=== PATIENT | female | born 1935 | race Caucasian/White ===

== ENCOUNTER → 2017-01-11 | Outpatient (CLI) | payer OTHER, MEDICARE ==
[~2017-01-11] MED LIST: ACET-749 PO; ATEN100T PO; AZIT250T PO; CARB6.5D11 OT; DILT-115 PO; DILT120C99 PO; DOXY100C76 PO; FURO-85 PO; IPRASOL34 INH; IPRASOL4 INH; LEVO125T5 PO; LSN40 PO; LSX20 PO; MAGN400T6 PO; METO-479 PO; NTRGSL/4 UT; PANT1TAB48 PO; POTA10CA28 PO; PRED20TA2 PO; SITA50TA PO; SNG10 PO; SYMIN160 INH; TRIA1SPR4 NAE; TRMCR515 TOP; WARF5TAB90 PO; ZCR80 PO
--- NOTE | 2017-01-11 11:25 | DIAGNOSTIC IMAGING REPORT ---
CHEST 2 VIEWS ROUTINE HISTORY: Short of breath. COMPARISON: Chest 12/25/2014. FINDINGS: No pleural effusions. No pneumothorax. The heart remains mildly enlarged. Diffuse interstitial thickening is again noted and is likely due to mild congestive change. No new focal lung consolidations. Right peritracheal soft tissue thickening is due to the normal vascular structures. IMPRESSION: Mild congestive change with cardiomegaly. Electronically signed by: Carson Munoz M.D. 01/11/2017 11:23 AM Dictated Date/Time: 01/11/2017 11:22 AM
== END | disposition home or self-care (01) ==
LOC: C.RADBBURG 00:21
PROVIDERS: ATTEND Physician Assistant
DX: R06.02 Shortness of breath (principal)

== ENCOUNTER → 2017-01-20 | Outpatient (CLI) | payer OTHER, MEDICARE ==
[~2017-01-20] MED LIST changes: +OPTIRAY 320 IV PRN
[2017-01-20 13:02] LABS: BLOOD UREA NITROGEN 30 mg/dl (7-18); BUN/CREATININE RATIO 23.1 (10-20); CARBON DIOXIDE 33 mmol/L (21-32); CHLORIDE 104 mmol/L (98-107); GLUCOSE 130 mg/dl (70-99); POTASSIUM 4.5 mmol/L (3.5-5.1); SODIUM 142 mmol/L (136-145)
--- NOTE | 2017-01-20 13:36 | DIAGNOSTIC IMAGING REPORT ---
CHEST CT WITH CONTRAST CT DOSE: 699.41 mGycm HISTORY: Dyspnea J96.10 Chronic respiratory [id number] COPD, [id number] TECHNIQUE: Multiaxial CT images of the chest were performed following the intravenous administration of contrast. COMPARISON: 08/19/2015 FINDINGS: Moderate stable cardiomegaly. Calcification coronary arterial vasculature. Moderate atelectatic change thoracic aorta with no evidence for aneurysm or dissection. Slight bibasilar interstitial prominence unaltered from the prior study. No new interval or progressive process. IMPRESSION: 1. Moderate grade megaly stable the prior study. 2. Slight bibasilar interstitial prominence unaltered from the prior exam. 3. Lungs otherwise are clear with no significant focal infiltrative process. Electronically signed by: Jian Bergeron M.D. 01/20/2017 1:33 PM Dictated Date/Time: 01/20/2017 1:30 PM
--- NOTE | 2017-01-26 07:03 | PULMONARY FUNCTION TEST ---
INTERPRETATION: Spirometry suggests mild restrictive ventilatory disease. Lung volumes: Within normal limits. Diffusion capacity: Significantly decreased diffusion capacity but when corrected for alveolar volume, within normal limits. Suggests restrictive ventilatory dysfunction.
== END | disposition home or self-care (01) ==
LOC: C.CTS 12:04
PROVIDERS: ATTEND Physician Assistant
DX: J44.9 Chronic obstructive pulmonary disease, unspecified (principal); J96.10 Chronic respiratory failure, unspecified whether with hypoxia or hypercapnia

== ENCOUNTER 2017-06-02 21:43 | Emergency (ER) | payer OTHER, MEDICARE ==
[~2017-06-02] VITALS: Ht 149.9 cm; Wt 100.0 kg
[~2017-06-02 21:43] MED LIST changes: -ACET-749 PO; -DILT-115 PO; -DILT120C99 PO; -IPRASOL4 INH; +LEVO125T4 PO; -LEVO125T5 PO; -LSX20 PO; -METO-479 PO; -OPTIRAY 320 IV PRN; -POTA10CA28 PO; -TRIA1SPR4 NAE; -TRMCR515 TOP
[2017-06-02 21:46] VITALS: TEMP 36.6; Ht 149.9 cm; Wt 100.0 kg
--- NOTE | 2017-06-02 23:04 | DIAGNOSTIC IMAGING REPORT ---
LEFT ANKLE MIN 3 VIEWS ROUTINE CLINICAL HISTORY: 82 years-old Female presenting with Left ankle pain s/p injury. TECHNIQUE: Frontal, mortise, and lateral views of the left ankle were obtained. COMPARISON: None. FINDINGS: Ankle mortise intact. Irregularity of the medial malleolus could suggest an old fracture. Degenerative changes at the ankle mortise both medially, posteriorly and laterally. Prominent bone spur at the inferior calcaneus. Os peroneum suggested. No convincing evidence of an acute fracture or malalignment. Diffuse soft tissue swelling. IMPRESSION: No convincing evidence of acute osseous injury. Degenerative changes and possible old chronic deformity of the medial malleolus. Nonspecific diffuse soft tissue swelling. Electronically signed by: Paul Espinoza M.D. 06/02/2017 11:03 PM Dictated Date/Time: 06/02/2017 11:01 PM
--- NOTE | 2017-06-02 23:07 | DIAGNOSTIC IMAGING REPORT ---
LEFT FOOT MIN 3 VIEWS ROUTINE CLINICAL HISTORY: 82 years-old Female presenting with Left foot pain. TECHNIQUE: Frontal, oblique, and lateral views of the left foot were obtained. COMPARISON: None. FINDINGS: Os peroneum noted. Accessory navicular may also be present. Degenerative changes of the first metatarsophalangeal joint with increased medial angulation of the first metatarsal. Prominent bone spur at the inferior calcaneus. No soft tissue calcification, although diffuse soft tissue swelling may be present. No convincing evidence of acute fracture. IMPRESSION: 1. Degenerative changes of the worst metatarsophalangeal joint with medial angulation of the first metatarsal. 2. Prominent enthesophyte at the origin of the plantar fascia. Correlate for point tenderness/plantar fasciitis. 3. No acute osseous injury of the left foot. Electronically signed by: Paul Espinoza M.D. 06/02/2017 11:06 PM Dictated Date/Time: 06/02/2017 11:03 PM
--- NOTE | 2017-06-02 23:30 | EMERGENCY ROOM VISIT NOTE ---
History First contact with patient: 21:56 Chief Complaint: ANKLE PAIN Stated Complaint: RONALDO LFBhaskar ANKLE History of Present Illness The patient is a 82 year old female who presents to the Emergency Room via private vehicle accompanied by family with complaints of "her left ankle". The patient states that earlier today around 8 PM, she was walking and believes she rolled her left ankle. She rates the pain as a 7.5/10 and points to the crease where the foot and ankle and the anterior most portion meat. She notes that there is a local area of pain in this region. She denies any pain in the knee, tib-fib region or distal foot. She also denies any pain in the toes or overlying the Achilles. She denies any fevers, chills, night sweats, nausea, vomiting, diarrhea, constipation, chest pain, shortness of breath. She also has a chronic deformity with medial rotation of the left foot. She denies any numbness or tingling in the distal extremity. Review of Systems A complete 6-point Review of Systems was discussed with the patient, with pertinent positives and negatives listed in the History of Present Illness. All remaining Review of Systems questions can be considered negative unless otherwise specified. Past Medical/Surgical History Medical Problems: (1) Asthma (2) Asthma exacerbation (3) Atrial fibrillation (4) CHF (congestive heart failure) (5) COPD exacerbation (6) Diabetes (7) Hypertensive urgency (8) Respiratory distress (9) Respiratory failure (10) Shoulder pain, left (11) Vomiting Surgical Problems: (1) Appendectomy (2) back surgery (3) Extraction of cataract Family History Cancer Diabetes mellitus Heart disease Hypertension Social History Smoking Status: Never Smoker Marital Status: Housing Status: lives with family Occupation Status: retired Current/Historical Medications Scheduled Atenolol (Tenormin), 100 MG PO BID Budesonide/Formoterol Fumarate (Symbicort 160/4.5 Inhaler ), 2 PUFFS INH BID Carbamide Peroxide (Otic) (Ear Drops), Unknown Dose OT DIRECTED Doxycycline Monohydrate (Monodox), 100 MG PO BID Levothyroxine Sodium (Levothyroxine Sodium), 125 MCG PO DAILY Lisinopril (Lisinopril), 40 MG PO DAILY Magnesium Oxide (Mag-Ox), 400 MG PO BID Montelukast Sod (Montelukast Sodium), 10 MG PO DAILY Pantoprazole (Protonix), 40 MG PO DAILY Simvastatin (Simvastatin), 80 MG PO HS Sitagliptin Phosphate (Januvia), 50 MG PO DAILY Warfarin Sodium (Coumadin), 5 MG PO [id number] Warfarin Sodium (Coumadin), 7.5 MG PO daily on tuesdays Scheduled PRN Azithromycin (Zithromax), 250 MG PO DAILY PRN for rescue pack Furosemide (Lasix), 20 MG PO DAILY PRN for leg swelling Ipratropium-Albuterol (Duoneb), 1 TREATMENT INH Q8 PRN for Wheezing Nitroglycerin (Nitrostat), 0.4 MG UT UD PRN for Chest Pain Prednisone (Prednisone Tab), 20 MG PO UD PRN for rescue pack Physical Exam Vital Signs Date Time Temp Pulse Resp B/P (MAP) Pulse Ox O2 Delivery O2 Flow Rate FiO2 06/02/17 23:50 48 18 121/59 95 06/02/17 21:46 36.6 49 18 148/83 94 Room Air Physical Exam VITAL SIGNS - Vital signs and nursing notes were reviewed. Afebrile, hypertensive at 140/83, bradycardic at rate of 49 bpm, and is saturating well on room air at 94%. GENERAL -82-year-old female appearing her stated age who is in no acute distress. Communicates well with provider and answers questions appropriately. SKIN - Without rashes. No petechial rashes. The skin overlying the left foot is edematous, but is intact. No evidence of open fracture. There is medial deformity rotation noted to the left foot. This appears to be chronic. There is also pitting edema. HEAD - NC/AT. EYES - PERRL with EOMI bilaterally. Sclera anicteric. Palpebral conjunctiva pink and moist with no injection noted. LUNGS - Chest wall symmetric without accessory muscle use, intercostals retractions, or central cyanosis. Normal vesicular breath sounds CTA B/L. No wheezes, rales, or rhonchi appreciated. CARDIAC - RRR with S1/S2. No murmur, rubs, or gallops appreciated. EXTREMITIES - there is pitting edema noted to the bilateral lower extremities. There is tenderness to palpation overlying the base of the fifth metatarsal extending anteriorly around to the ankle mortise region. She is neurovascularly intact in this region. +5/5 strength noted in UE/LE bilaterally. Medical Decision & Procedures ER Provider Diagnostic Interpretation: LEFT ANKLE MIN 3 VIEWS ROUTINE CLINICAL HISTORY: 82 years-old Female presenting with Left ankle pain s/p injury. TECHNIQUE: Frontal, mortise, and lateral views of the left ankle were obtained. COMPARISON: None. FINDINGS: Ankle mortise intact. Irregularity of the medial malleolus could suggest an old fracture. Degenerative changes at the ankle mortise both medially, posteriorly and laterally. Prominent bone spur at the inferior calcaneus. Os peroneum suggested. No convincing evidence of an acute fracture or malalignment. Diffuse soft tissue swelling. IMPRESSION: No convincing evidence of acute osseous injury. Degenerative changes and possible old chronic deformity of the medial malleolus. Nonspecific diffuse soft tissue swelling. Electronically signed by: Paul Espinoza M.D. 06/02/2017 11:03 PM Dictated Date/Time: 06/02/2017 11:01 PM LEFT FOOT MIN 3 VIEWS ROUTINE CLINICAL HISTORY: 82 years-old Female presenting with Left foot pain. TECHNIQUE: Frontal, oblique, and lateral views of the left foot were obtained. COMPARISON: None. FINDINGS: Os peroneum noted. Accessory navicular may also be present. Degenerative changes of the first metatarsophalangeal joint with increased medial angulation of the first metatarsal. Prominent bone spur at the inferior calcaneus. No soft tissue calcification, although diffuse soft tissue swelling may be present. No convincing evidence of acute fracture. IMPRESSION: 1. Degenerative changes of the worst metatarsophalangeal joint with medial angulation of the first metatarsal. 2. Prominent enthesophyte at the origin of the plantar fascia. Correlate for point tenderness/plantar fasciitis. 3. No acute osseous injury of the left foot. Electronically signed by: Palu Espinoza M.D. 06/02/2017 11:06 PM Dictated Date/Time: 06/02/2017 11:03 PM Medical Decision Patient was seen and evaluated as above. After obtaining a thorough history and physical examination radiographs were obtained of the foot and ankle. She examines well, with no acute bony abnormality. Radiograph results as above. No acute fracture. I suspect the patient is likely sprained her ankle, however the possibility of an occult fracture is not excluded. For this reason she'll be fitted with a gel ankle splint, made nonweightbearing with the walker she already has at home, and is to follow-up with orthopedics. She was found to be bradycardic upon her arrival, here but is asymptomatic. She takes atenolol, which I believe is the culprit for this. She was also evaluated by the attending physician. She was educated upon worrisome symptoms which to return, had questions or discharge, and was discharged home in good condition. The patient is felt stable for outpatient management. She certainly is to return with worsening. Med list was reviewed. Blood pressure was elevated. She is to follow-up with her family doctor. In the evaluation and treatment of this patient, the following differential diagnoses were considered: Ankle Fracture, Ankle Sprain, Distal Fibula Fracture , Distal Tibia Fracture, Foot Fracture, [place] Fracture. Impression Primary Impression: Left ankle pain Departure Information Dispostion Home / Self-Care Condition GOOD Referrals Mary Manriquez D.O. (PCP) Chandler Hankins D.O. Patient Instructions My [facility] Additional Instructions You have been treated in the Emergency Department for a left Ankle pain. For pain control, you can use the following [id number] medicines (if >12 yo): - Regular strength (325mg/tab) Tylenol (acetaminophen) 2 tabs every 4-6 hours as needed. Do not exceed 12 tablets in a 24 hour period. Avoid taking more than 3 grams (3000 mg) of Tylenol per day. This includes any other sources of acetaminophen you may take on a regular basis. If this is a recent injury (<24 hrs), ice can be applied to the area of pain for the first 3 days to help decrease pain and inflammation. You have been provided the number for an Orthopaedic Surgeon. You should call this number as soon as possible to establish a follow-up visit from today's Emergency Department visit. Keep the ankle brace/splint in place until cleared by Orthopedics. Use the walker to keep ALL weight off of the ankle until weight bearing is tolerable. Return to the Emergency Department if your current symptoms worsen despite treatment course outlined above, or if you develop any of the following symptoms : intractable pain despite aforementioned treatment course or new onset of numbness or tingling of the foot. Please follow-up regarding elevated blood pressure.
[2017-06-02 23:50] VITALS: BP 121/59; PULSE 48; O2SAT 95
== END 2017-06-02 23:53 | disposition home or self-care (01) ==
LOC: C.EDB 21:44
DX: M25.572 Pain in left ankle and joints of left foot (principal); J45.909 Unspecified asthma, uncomplicated; I48.91 Unspecified atrial fibrillation; I50.9 Heart failure, unspecified; J44.9 Chronic obstructive pulmonary disease, unspecified; E11.9 Type 2 diabetes mellitus without complications; J96.90 Respiratory failure, unspecified, unspecified whether with hypoxia or hypercapnia; Z80.9 Family history of malignant neoplasm, unspecified; Z83.3 Family history of diabetes mellitus; Z82.49 Family history of ischemic heart disease and other diseases of the circulatory system; Z79.01 Long term (current) use of anticoagulants; Z79.899 Other long term (current) drug therapy

== ENCOUNTER 2017-06-12 16:48 | Inpatient (IN) | payer OTHER, MEDICARE ==
[~2017-06-12] VITALS: Ht 149.9 cm; Wt 96.4 kg
[2017-06-12] MEDS ORDERED: SODIUM CHLORIDE 0.9% 500ML 500 ML IV STA (17:25)
[2017-06-12 17:30] LABS: BASO % 0.3 %; BASO ABS # 0.02 K/uL (0-0.2); COMPLETE YES; EOS % 7.3 %; HEMATOCRIT 36.5 % (37-47); IG% 0.3 %; LYMPH ABS # 1.72 K/uL (1.2-3.4); MEAN CELL VOLUME 87.1 fL (80-100); MEAN CORPUSCULAR HEMOGLOBIN 27.4 pg (25-34); MEAN CORPUSCULAR HGB CONC 31.5 g/dl (32-36); MEAN PLATELET VOLUME 10.1 fL (7.4-10.4); MONO % 15.9 %; NEUT % 54.2 %; PLATELET COUNT 269 K/uL (130-400); RED BLOOD COUNT 4.19 M/uL (4.2-5.4); WHITE BLOOD COUNT 7.82 K/uL (4.8-10.8)
--- NOTE | 2017-06-12 17:31 | EMERGENCY ROOM VISIT NOTE ---
History Report prepared by Sanam: Batool Cowan Under the Supervision of: Dr. Gustavo Keyes M.D. First contact with patient: 17:14 Chief Complaint: BRADYCARDIA Stated Complaint: LOW HR, NOT SURE IF HAVING HEART ATTACK Nursing Triage Summary: pt reports she started feeling dizzy today at 1430 told if hr drops she needs to go to ed. 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 She does not remember what she was doing when the dizziness started but notes the room felt like it was "kind of spinning". Laying down helps to relieve her symptoms. She denies any previous history of vertigo. She denies any recent LOC of diaphoresis. She complains of shortness of breath but denies any chest pain. She wears 2L of Oxygen as needed and states she was wearing it when her dizziness started. The patient has a history of atrial fibrillation and takes daily Coumadin. She has a boot on her left ankle for a possible sprain that was placed 1 week ago. Her daughter reports at her most recent doctor visit, on June 02 for her ankle, her heart rate was in the 40's and they were told to come to the ED if her heart rate went any lower. Earlier this afternoon, her heart rate was in the 40's, so she decided to come to the ED. The patients recently underwent a 24 hour Holter, ordered by Dr. Clement with [facility], but states she turned it in this past Tuesday, 2 days ago, and has not heard back about her results yet. She takes daily Atenolol, 100 mg BID, but denies any recent changes to her medications. The patient denies any fevers, cough or cold symptoms, vomiting, diarrhea, urinary symptoms or increased weakness in her arms or legs. She is not currently taking any antibiotics. 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 A total of 10 systems reviewed and were otherwise negative. Past Medical & Surgical Medical Problems: (1) Asthma (2) Asthma exacerbation (3) Atrial fibrillation (4) CHF (congestive heart failure) (5) COPD exacerbation (6) Diabetes (7) Hypertensive urgency (8) Respiratory distress (9) Respiratory failure (10) Shoulder pain, left (11) Vomiting Surgical Problems: (1) Appendectomy (2) back surgery (3) Extraction of cataract Family History Cancer Diabetes mellitus Heart disease Hypertension Social History Smoking Status: Never Smoker Alcohol Use: none Drug Use: none Marital Status: Housing Status: lives with family Occupation Status: retired Current/Historical Medications Scheduled Atenolol (Tenormin), 100 MG PO BID Budesonide/Formoterol Fumarate (Symbicort 160/4.5 Inhaler ), 2 PUFFS INH BID Diltiazem Hcl Coated Beads (Diltiazem Cd), 120 MG PO DAILY Ipratropium-Albuterol (Duoneb), 1 TREATMENT INH Q4H Levothyroxine Sodium (Levothyroxine Sodium), 125 MCG PO DAILY Lisinopril (Lisinopril), 40 MG PO DAILY Magnesium Oxide (Mag-Ox), 400 MG PO BID Pantoprazole (Protonix), 40 MG PO DAILY Sitagliptin Phosphate (Januvia), 50 MG PO DAILY Triamcinolone Acet (Triamcinolone Acetonide), 1 APPLN TOP BID Triamcinolone Acetonide (Nasal (Nasacort Allergy 24Hr), 2 SPRAYS [place] DAILY Warfarin Sodium (Coumadin), 5 MG PO 6XWK Warfarin Sodium (Coumadin), 2.5 MG PO daily on tuesday Scheduled PRN Azithromycin (Zithromax), 250 MG PO DAILY PRN for rescue pack Furosemide (Lasix), 20 MG PO DAILY PRN for leg swelling Prednisone (Prednisone Tab), 20 MG PO UD PRN for rescue pack Allergies Coded Allergies: Penicillins (Verified Allergy, Intermediate, RASH, 06/12/17) RASH Physical Exam Vital Signs Date Time Temp Pulse Resp B/P (MAP) Pulse Ox O2 Delivery O2 Flow Rate FiO2 06/12/17 19:02 54 22 182/103 98 Nasal Cannula 2.0 06/12/17 17:12 98 Nasal Cannula 2.0 06/12/17 17:05 54 06/12/17 17:05 98 Nasal Cannula 2.0 06/12/17 17:05 36.8 54 20 175/72 98 Nasal Cannula Physical Exam GENERAL: Patient is in no acute distress. HEENT: No acute trauma, normocephalic atraumatic, mucous membranes moist, no nasal congestion, no scleral icterus. NECK: No stridor, no adenopathy, no meningismus, trachea is midline. LUNGS: Clear to auscultation bilaterally, no wheeze, no rhonchi, breath sounds equal. HEART: Irregular and bradycardic, no murmurs. ABDOMEN: Soft, nontender, bowel sounds positive, no hernias, no peritonitis. EXTREMITIES: Boot on left ankle and foot. No cyanosis or edema, full range of motion of all the joints without pain or difficulty, no signs for acute trauma. NEUROLOGIC: Oriented x 3, no acute motor or sensory deficits, no focal weakness. No pronator drift, no speech slur or facial droop, no cerebellar disfunction. SKIN: No rash, no jaundice, no diaphoresis. Medical Decision & Procedures ER Provider Diagnostic Interpretation: Radiology results as stated below per my review and radiologist interpretation: HEAD CT NONCONTRAST CT DOSE: 537.48 mGy.cm HISTORY: HEADACHE TECHNIQUE: Multiaxial CT images of the head were performed without the use of intravenous contrast. Automated exposure control was utilized for this study. A dose lowering technique was utilized adhering to the principles of ALARA. Comparison: Head CT 08/26/2014. Findings: The paranasal sinuses and mastoid air cells are clear. The calvarium and skull base are intact. There is no mass, hematoma, midline shift, acute infarct. White matter hypodensity is nonspecific but suggestive of microvascular ischemic change. The ventricles and sulci demonstrate mild age-related involutional changes. Impression: No significant change compared to the prior study. No acute intracranial abnormality. Electronically signed by: Carson Munoz M.D. 06/12/2017 6:04 PM CHEST ONE VIEW PORTABLE HISTORY: EVALUATE ALTERED MENTAL STATUS/WEAKNESS COMPARISON: Chest 01/11/2017. FINDINGS: No pneumothorax. No pleural effusions. The heart remains enlarged. Mild pulmonary vascular congestion without overt edema. No focal lung consolidations to suggest pneumonia. Prominence of the right paratracheal stripe is likely due to the pulmonary vessels. IMPRESSION: No significant change in the pulmonary vascular congestion and cardiomegaly. Electronically signed by: Carson Munoz M.D. 06/12/2017 5:56 PM Laboratory Results Test 06/12/17 17:10 06/12/17 18:15 Immature Granulocyte % (Auto) 0.3 % White Blood Count 7.82 K/uL (4.8-10.8) Red Blood Count 4.19 M/uL (4.2-5.4) Hemoglobin 11.5 g/dL (12.0-16.0) Hematocrit 36.5 % (37-47) Mean Corpuscular Volume 87.1 fL (80-100) Mean Corpuscular Hemoglobin 27.4 pg (25-34) Mean Corpuscular Hemoglobin Concent 31.5 g/dl (32-36) Platelet Count 269 K/uL (130-400) Mean Platelet Volume 10.1 fL (7.4-10.4) Neutrophils (%) (Auto) 54.2 % Lymphocytes (%) (Auto) 22.0 % Monocytes (%) (Auto) 15.9 % Eosinophils (%) (Auto) 7.3 % Basophils (%) (Auto) 0.3 % Neutrophils # (Auto) 4.25 K/uL (1.4-6.5) Lymphocytes # (Auto) 1.72 K/uL (1.2-3.4) Monocytes # (Auto) 1.24 K/uL (0.11-0.59) Eosinophils # (Auto) 0.57 K/uL (0-0.5) Basophils # (Auto) 0.02 K/uL (0-0.2) Immature Granulocyte # (Auto) 0.02 K/uL (0.00-0.02) Prothrombin Time 20.3 SECONDS (9.0-12.0) Prothromb Time International Ratio 1.8 (0.9-1.1) Activated Partial Thromboplast Time 39.2 SECONDS (21.0-31.0) Partial Thromboplastin Ratio 1.5 Magnesium Level 2.0 mg/dl (1.8-2.4) Total Bilirubin 0.6 mg/dl (0.2-1) Aspartate Amino Transf (AST/SGOT) 20 U/L (15-37) Alanine Aminotransferase (ALT/SGPT) 22 U/L (12-78) Alkaline Phosphatase 104 U/L (45-117) Pro-B-Type Natriuretic Peptide 3210 pg/ml (0-1800) Total Protein 6.9 gm/dl (6.4-8.2) Albumin 3.4 gm/dl (3.4-5.0) Globulin 3.5 gm/dl (2.5-4.0) Albumin/Globulin Ratio 1.0 (0.9-2) Thyroid Stimulating Hormone (TSH) 2.160 uIu/ml (0.300-4.500) Free Thyroxine 1.19 ng/dl (0.80-1.60) Urine Color YELLOW Urine Appearance CLEAR (CLEAR) Urine pH 5.0 (4.5-7.5) Urine Specific [place] 1.020 (1.000-1.030) Urine Protein NEG (NEG) Urine Glucose (UA) NEG (NEG) Urine Ketones NEG (NEG) Urine Occult Blood NEG (NEG) Urine Nitrite NEG (NEG) Urine Bilirubin NEG (NEG) Urine Urobilinogen NEG (NEG) Urine Leukocyte Esterase NEG (NEG) Laboratory results reviewed by me. Medications Administered Medications (Trade) Dose Ordered Sig/Hetal Route Start Time Stop Time Status Last Admin Dose Admin Sodium Chloride 500 ml @ 999 mls/hr Q31M STAT IV 06/12/17 17:25 06/12/17 17:55 DC 06/12/17 18:04 999 MLS/HR ECG Indication: weakness (dizziness) Rate (beats per minute): 57 Rhythm: atrial fibrillation Findings: no acute ischemic change, no ectopy, other (Poor R-wave progression) ED Course 1715: The patient was evaluated in room C7. A complete history and physical exam was performed. 1725: NSS 500 ml @ 999 mls/hr IV. 1825: I discussed the patients case with Yovani Leyva Cardiology. He reports when she was in the office, her heart was in the 100s. He suggests the patient stay in the hospital for further monitoring. 1830: I reevaluated the patient. She is resting comfortably. I discussed my recommendation she remain in the hospital for further evaluation and management and she verbalized complete understanding and agreement. 1840: I discussed the patients case with Yovani Chand Hospitalist. The patient will be further evaluated. Medical Decision The differential diagnoses considered include dehydration, vertigo, bradycardia , anemia, UTI, stroke, intracranial bleed and electrolyte imbalance. There is no leukocytosis or concerning anemia. No significant electrolyte abnormality, kidney failure or hepatitis. INR is elevated consistent with her Coumadin use. EKG shows A. fib and bradycardia, no acute ischemia. Cardiac enzyme testing times one is not consistent with acute cardiac injury. Chest film does not show pneumonia, mediastinal widening or CHF. Brain CT shows no acute bleed or mass effect. Urinalysis does not show infection. On exam, there were no focal neurologic deficits. The patient presents with lightheadedness, dizziness. She is bradycardic. I did speak with the on-call escalator constructor. Apparently, the patient's heart rate over the last week has been high and low. 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 Admission/observation was advised for possible pacemaker placement. The patient did receive IV saline during her stay, she is resting comfortably, she appears stable. I spoke to the patient and case management. The on-call hospitalist was consulted. Medication Reconcilliation Current Medication List: was personally reviewed by me Blood Pressure Screening Patient's blood pressure: Elevated blood pressure Blood pressure disposition: Elevated BP felt to be situational Consults Time Called: 1819 Consulting Physician: Yovani Leyva Cardiology Returned Call: [phone] I discussed the patients case with Yovani Leyva Cardiology. He reports when she was in the office, her heart was in the 100s. He suggests the patient stay in the hospital for further monitoring. Additional Consults: Time Called: 183 Consulted Physician: Yovani Chand Hospitaist Returned Call: [phone] Additional Comments: I discussed the patients case with Yovani Chand Hospitalist. The patient will be further evaluated. Impression Primary Impression: Lightheadedness Additional Impressions: Bradycardia Atrial fibrillation Scribe Attestation The scribe's documentation has been prepared under my direction and personally reviewed by me in its entirety. I confirm that the note above accurately reflects all work, treatment, procedures, and medical decision making performed by me. Departure Information Dispostion Being Evaluated By Hospitalist Referrals Mary Manriquez D.O. (PCP) Patient Instructions My [facility] Problem Qualifiers
[2017-06-12 17:37] LABS: ALT/SGPT 22 U/L (12-78); BLOOD UREA NITROGEN 21 mg/dl (7-18); BUN/CREATININE RATIO 17.4 (10-20); CALCIUM 8.6 mg/dl (8.5-10.1); CARBON DIOXIDE 29 mmol/L (21-32); CHLORIDE 104 mmol/L (98-107); GLUCOSE 98 mg/dl (70-99); POTASSIUM 4.1 mmol/L (3.5-5.1); SODIUM 139 mmol/L (136-145)
[2017-06-12 17:38] LABS: INR 1.8 (0.9-1.1); PARTIAL THROMBOPLASTIN RATIO 1.5; PROTHROMBIN TIME (PATIENT) 20.3 SECONDS (9.0-12.0)
[2017-06-12] MEDS ORDERED: IPRASOL4 INH (17:38)
[2017-06-12] MEDS ORDERED: TRMCR515 TOP (17:38)
[2017-06-12] MEDS ORDERED: TRIA1SPR4 NAE (17:38)
[2017-06-12] MEDS ORDERED: DILT120C99 PO (17:38)
[2017-06-12 17:48] LABS: ALKALINE PHOSPHATASE 104 U/L (45-117); AST/SGOT 20 U/L (15-37)
--- NOTE | 2017-06-12 17:58 | DIAGNOSTIC IMAGING REPORT ---
CHEST ONE VIEW PORTABLE HISTORY: EVALUATE ALTERED MENTAL STATUS/WEAKNESS COMPARISON: Chest 01/11/2017. FINDINGS: No pneumothorax. No pleural effusions. The heart remains enlarged. Mild pulmonary vascular congestion without overt edema. No focal lung consolidations to suggest pneumonia. Prominence of the right paratracheal stripe is likely due to the pulmonary vessels. IMPRESSION: No significant change in the pulmonary vascular congestion and cardiomegaly. Electronically signed by: Carson Munoz M.D. 06/12/2017 5:56 PM Dictated Date/Time: 06/12/2017 5:55 PM
--- NOTE | 2017-06-12 18:05 | DIAGNOSTIC IMAGING REPORT ---
HEAD CT NONCONTRAST CT DOSE: 537.48 mGy.cm HISTORY: HEADACHE TECHNIQUE: Multiaxial CT images of the head were performed without the use of intravenous contrast. Automated exposure control was utilized for this study. A dose lowering technique was utilized adhering to the principles of ALARA. Comparison: Head CT 08/26/2014. Findings: The paranasal sinuses and mastoid air cells are clear. The calvarium and skull base are intact. There is no mass, hematoma, midline shift, acute infarct. White matter hypodensity is nonspecific but suggestive of microvascular ischemic change. The ventricles and sulci demonstrate mild age-related involutional changes. Impression: No significant change compared to the prior study. No acute intracranial abnormality. Electronically signed by: Carson Munoz M.D. 06/12/2017 6:04 PM Dictated Date/Time: 06/12/2017 5:59 PM
[2017-06-12 19:09] LABS: URINE APPEARANCE CLEAR (CLEAR); URINE BILIRUBIN NEG (NEG); URINE COLOR YELLOW; URINE NITRITE NEG (NEG); UROBILINOGEN NEG (NEG)
[2017-06-12 19:11] LABS: MANUAL MICROSCOPIC REQUIRED? NO; REVIEW REQ? NO
--- NOTE | 2017-06-12 20:29 | History and Physical ---
History & Physical Date & Time of Service: Jun 12, 2017 at 20:29 Chief Complaint: Low Hr, Not Sure If Having Heart Attack Primary Care Physician: Mary Manriquez D.O. History of Present Illness Source: patient, family Patient is a pleasant 82 yo female who presents to the ER today for complaints of dizziness and lightheadedness all day along with low HR. The patient reports that she recently was seen by her physician and was told she is in atrial fibrillation but her HR was in the 40's; she was advised that should her HR drop low and she becomes symptomatic, she should go the ER. She also reports having intermittent SOB for which she states she uses oxygen as needed at home. She denies any associated CP. She felt the dizziness was slightly better laying down, but worsened with sitting or standing or any activity. She denies any prior history of dizziness, but states the SOB occurs intermittently. She denies any changes to her medications recently. She states she recently was on a holter monitor but just turned it in a couple of days ago and does not have results back yet. She otherwise states she has been in her usual state of health. She denies any recent illness. Her only other active complaint is regarding her left ankle for which she is wearing a boot and following with orthopedics as an outpatient for a possible fracture after a fall she had a couple of weeks ago. Past Medical/Surgical History Medical Problems: (1) Asthma Status: Chronic (2) Asthma exacerbation Status: Resolved (3) Atrial fibrillation Status: Chronic (4) CHF (congestive heart failure) Status: Chronic (5) COPD exacerbation Status: Resolved (6) Diabetes Status: Chronic (7) Hypertensive urgency Status: Chronic (8) Respiratory distress Status: Resolved (9) Respiratory failure Status: Resolved (10) Shoulder pain, left Status: Chronic (11) Vomiting Status: Resolved Surgical Problems: (1) Appendectomy Status: Resolved (2) back surgery Status: Resolved (3) Extraction of cataract Status: Resolved Family History Cancer Diabetes mellitus Heart disease Hypertension Social History Smoking Status: Never Smoker Drug Use: none Marital Status: Housing status: lives with family Occupational Status: retired Immunizations History of Influenza Vaccine: No Influenza Vaccine Date: Jul 11, 2005 History of Tetanus Vaccine?: UTD History of Pneumococcal: Yes Pneumococcal Date: Jul 27, 2009 History of Hepatitis B Vaccine: Unknown Multi-Drug Resistant Organisms History of MDRO: No Allergies Coded Allergies: Penicillins (Verified Allergy, Intermediate, RASH, 06/12/17) RASH Home Medications Scheduled Atenolol (Tenormin), 100 MG PO BID Budesonide/Formoterol Fumarate (Symbicort 160/4.5 Inhaler ), 2 PUFFS INH BID Diltiazem Hcl Coated Beads (Diltiazem Cd), 120 MG PO DAILY Ipratropium-Albuterol (Duoneb), 1 TREATMENT INH Q4H Levothyroxine Sodium (Levothyroxine Sodium), 125 MCG PO DAILY Lisinopril (Lisinopril), 40 MG PO DAILY Magnesium Oxide (Mag-Ox), 400 MG PO BID Pantoprazole (Protonix), 40 MG PO DAILY Sitagliptin Phosphate (Januvia), 50 MG PO DAILY Triamcinolone Acet (Triamcinolone Acetonide), 1 APPLN TOP BID Triamcinolone Acetonide (Nasal (Nasacort Allergy 24Hr), 2 SPRAYS [place] DAILY Warfarin Sodium (Coumadin), 5 MG PO 6XWK Warfarin Sodium (Coumadin), 2.5 MG PO daily on tuesday Scheduled PRN Azithromycin (Zithromax), 250 MG PO DAILY PRN for rescue pack Furosemide (Lasix), 20 MG PO DAILY PRN for leg swelling Prednisone (Prednisone Tab), 20 MG PO UD PRN for rescue pack Review of Systems Constitutional: No fever, No chills, No sweats, No weakness Eyes: No worsening of vision, No eye pain, No redness, No diplopia ENT: No hearing loss, No nasal symptoms, No sore throat, No trouble swallowing Respiratory: + shortness of breath, + dyspnea on exertion, No cough, No sputum , No wheezing Cardiovascular: + edema, No chest pain, No claudication, No palpitations Abdomen: No pain, No nausea, No vomiting, No diarrhea, No constipation Musculoskeletal: + swelling, No joint pain, No muscle pain, No calf pain Genitourinary - Female: No dysuria, No urinary frequency, No urinary urgency, No urinary incontinence Neurologic: + vertigo, No memory loss, No paralysis, No numbness/tingling Psychiatric: No depression symptoms, No anxiety, No problem reported Endocrine: No problem reported Hematologic / Lymphatic: No problem reported Integumentary: No rash, No itch, No bleeding, No problem reported Physical Exam Vital Signs Date Time Temp Pulse Resp B/P (MAP) Pulse Ox O2 Delivery O2 Flow Rate FiO2 06/12/17 19:02 54 22 182/103 98 Nasal Cannula 2.0 06/12/17 17:12 98 Nasal Cannula 2.0 06/12/17 17:05 54 06/12/17 17:05 98 Nasal Cannula 2.0 06/12/17 17:05 36.8 54 20 175/72 98 Nasal Cannula General Appearance: WD/WN, no apparent distress Head: normocephalic, atraumatic Eyes: PERRL, EOMI, sclerae normal ENT: hearing grossly normal Neck: supple, no JVD, no carotid bruits, trachea midline Respiratory/Chest: chest non-tender, lungs clear, normal breath sounds, no respiratory distress, + decreased breath sounds Cardiovascular: no edema, no gallop, no JVD, no murmur, + bradycardia, + irregularly irregular Abdomen/GI: normal bowel sounds, non tender, soft, no organomegaly Back: no CVA tenderness Extremities/Musculoskelatal: normal inspection, no calf tenderness, normal capillary refill, no pedal edema Neurologic/Psych: no motor/sensory deficits, alert, normal mood/affect, oriented x 3 Skin: normal color, warm/dry, no rash Diagnostics Laboratory Results Results Past 24 Hours Test 06/12/17 17:10 06/12/17 18:15 Range/Units White Blood Count 7.82 4.8-10.8 K/uL Red Blood Count 4.19 4.2-5.4 M/uL Hemoglobin 11.5 12.0-16.0 g/dL Hematocrit 36.5 37-47 % Mean Corpuscular Volume 87.1 80-100 fL Mean Corpuscular Hemoglobin 27.4 25-34 pg Mean Corpuscular Hemoglobin Concent 31.5 32-36 g/dl Platelet Count 269 130-400 K/uL Mean Platelet Volume 10.1 7.4-10.4 fL Neutrophils (%) (Auto) 54.2 % Lymphocytes (%) (Auto) 22.0 % Monocytes (%) (Auto) 15.9 % Eosinophils (%) (Auto) 7.3 % Basophils (%) (Auto) 0.3 % Neutrophils # (Auto) 4.25 1.4-6.5 K/uL Lymphocytes # (Auto) 1.72 1.2-3.4 K/uL Monocytes # (Auto) 1.24 0.11-0.59 K/uL Eosinophils # (Auto) 0.57 0-0.5 K/uL Basophils # (Auto) 0.02 0-0.2 K/uL RDW Standard Deviation 46.5 36.4-46.3 fL RDW Coefficient of Variation 14.6 11.5-14.5 % Immature Granulocyte % (Auto) 0.3 % Immature Granulocyte # (Auto) 0.02 0.00-0.02 K/uL Prothrombin Time 20.3 9.0-12.0 SECONDS Prothromb Time International Ratio 1.8 0.9-1.1 Activated Partial Thromboplast Time 39.2 21.0-31.0 SECONDS Partial Thromboplastin Ratio 1.5 Sodium Level 139 136-145 mmol/L Potassium Level 4.1 3.5-5.1 mmol/L Chloride Level 104 98-107 mmol/L Carbon Dioxide Level 29 21-32 mmol/L Anion Gap 6.0 3-11 mmol/L Blood Urea Nitrogen 21 7-18 mg/dl Creatinine 1.20 0.60-1.20 mg/dl Est Creatinine Clear Calc Drug Dose 38.5 ml/min Estimated GFR () 48.7 Estimated GFR (Non- 42.1 BUN/Creatinine Ratio 17.4 10-20 Random Glucose 98 70-99 mg/dl Calcium Level 8.6 8.5-10.1 mg/dl Magnesium Level 2.0 1.8-2.4 mg/dl Total Bilirubin 0.6 0.2-1 mg/dl Aspartate Amino Transf (AST/SGOT) 20 15-37 U/L Alanine Aminotransferase (ALT/SGPT) 22 12-78 U/L Alkaline Phosphatase 104 45-117 U/L Troponin I < 0.015 0-0.045 ng/ml Total Protein 6.9 6.4-8.2 gm/dl Albumin 3.4 3.4-5.0 gm/dl Globulin 3.5 2.5-4.0 gm/dl Albumin/Globulin Ratio 1.0 0.9-2 Thyroid Stimulating Hormone (TSH) 2.160 0.300-4.500 uIu/ml Free Thyroxine 1.19 0.80-1.60 ng/dl Urine Color YELLOW Urine Appearance CLEAR CLEAR Urine pH 5.0 4.5-7.5 Urine Specific [place] 1.020 1.000-1.030 Urine Protein NEG NEG Urine Glucose (UA) NEG NEG Urine Ketones NEG NEG Urine Occult Blood NEG NEG Urine Nitrite NEG NEG Urine Bilirubin NEG NEG Urine Urobilinogen NEG NEG Urine Leukocyte Esterase NEG NEG Impression Assessment and Plan BRADYCARDIA: -in atrial fib -holding diltiazem and atenolol -Cardiology consulted and aware, advised also holding anticoagulation in the event the patient requires pacemaker for possible tachy-pham DIZZINESS: -likely secondary to above -renal function at baseline and patient appears euvolemic; encourage PO fluids -check serial CM, TTE HTN: -continue home meds -monitor and titrate meds ATRIAL FIB: -on coumadin, INR subtherapeutic 1.8; hold coumadin until evaluated by Cardio -was seemingly rate controlled, however has been bradycardic recently -monitor in tele -hold atenolol and cardizem until pt sees Cardio CHRONIC ANEMIA: -Hemoglobin at 11.3, appears to be at baseline -no bleeding -monitor DM TYPE II: -continue sitagliptin -BSG AC and HS; sliding scale insulin if needed CKD STAGE II: -at baseline -avoid nephrotoxins DYSLIPIDEMIA: -continue statin VTE Prophylaxis VTE Risk Assessment Done? Y/N: Yes Risk Level: Moderate
[2017-06-12] MEDS ORDERED: ONDANSETRON INJ 2 MG/ML 2 ML VIAL IV PRN (20:30)
[2017-06-12] MEDS ORDERED: ACETAMINOPHEN 325 MG TAB PO PRN (20:30)
[2017-06-12] MEDS ORDERED: POLYETHYLENE (MIRALAX) 17 GM PACK PO PRN (20:30)
[2017-06-12] MEDS ORDERED: FUROSEMIDE 20 MG TAB PO PRN (20:45)
[2017-06-12 21:36] VITALS: BP 179/84; PULSE 75; TEMP 36.7; O2SAT 90; Ht 149.9 cm; Wt 96.4 kg
[2017-06-12] MEDS ORDERED: FUROSEMIDE INJ 40 MG in SYRINGE 0 ML IV ONE (22:00)
[2017-06-12] MEDS ORDERED: ENOXAPARIN 40 MG/0.4 ML SYR SC SCH (22:00)
[2017-06-12] MEDS ORDERED: ALBUT/IPRATROP 3MG/0.5MG NEB 3 ML VIAL INH PRN (22:00)
[2017-06-12] MEDS ORDERED: ALBUT/IPRATROP 3MG/0.5MG NEB 3 ML VIAL INH STA (22:01)
[2017-06-12 22:06] VITALS: PULSE 76; O2SAT 99
[2017-06-12] MEDS: MAGNESIUM OXIDE 400 MG TAB PO SCH (22:29)
[2017-06-12] MEDS: BUDESONIDE/FORMOTEROL FUMARATE 160/4.5 60 PUFFS/INHALER INH SCH (22:30)
[2017-06-12 23:33] VITALS: PULSE 77; O2SAT 95
[2017-06-12] MEDS: ALBUT/IPRATROP 3MG/0.5MG NEB 3 ML VIAL INH SCH (23:33)
[2017-06-12 23:57] VITALS: BP 168/86; PULSE 72; TEMP 37; O2SAT 92
[2017-06-13] VITALS (12 sets, daily range): BP systolic 132–173; BP diastolic 83–95; PULSE 72–95; TEMP 36.8–37.1; O2SAT 91–100
[2017-06-13 02:37] LABS: HEMATOCRIT 36.7 % (37-47); MEAN CELL VOLUME 86.6 fL (80-100); MEAN CORPUSCULAR HEMOGLOBIN 28.1 pg (25-34); MEAN CORPUSCULAR HGB CONC 32.4 g/dl (32-36); MEAN PLATELET VOLUME 10.2 fL (7.4-10.4); PLATELET COUNT 280 K/uL (130-400); RED BLOOD COUNT 4.24 M/uL (4.2-5.4)
[2017-06-13 02:55] LABS: BLOOD UREA NITROGEN 18 mg/dl (7-18); BUN/CREATININE RATIO 15.3 (10-20); CALCIUM 8.7 mg/dl (8.5-10.1); CARBON DIOXIDE 32 mmol/L (21-32); CHLORIDE 102 mmol/L (98-107); GLUCOSE 152 mg/dl (70-99); POTASSIUM 3.5 mmol/L (3.5-5.1); SODIUM 140 mmol/L (136-145)
[2017-06-13] MEDS: ALBUT/IPRATROP 3MG/0.5MG NEB 3 ML VIAL INH SCH ×6 (03:48→23:01)
[2017-06-13] MEDS: LEVOTHYROXINE 125 MCG TAB PO SCH (05:15)
[2017-06-13] MEDS: BUDESONIDE/FORMOTEROL FUMARATE 160/4.5 60 PUFFS/INHALER INH SCH ×2 (08:11→20:38)
[2017-06-13] MEDS: MAGNESIUM OXIDE 400 MG TAB PO SCH ×2 (08:12→20:38)
[2017-06-13] MEDS: PANTOprazole SOD 40 MG TAB PO SCH (08:12)
[2017-06-13] MEDS: SITAGLIPTIN 25 MG TAB PO SCH (08:12)
[2017-06-13] MEDS: TRIAMCINOLONE ACET NASAL SPRAY 10.8ML BTL NAE SCH (08:12)
[2017-06-13] MEDS: LISINOPRIL 40 MG TAB PO SCH (08:13)
[2017-06-13 11:08] LABS: CKMB/CK RATIO 0.8 (0-3.0)
--- NOTE | 2017-06-13 13:08 | Progress Note ---
Medicine Progress Note Date & Time of Visit: Jun 13, 2017 at 12:45. Subjective Pt was seen and examined Sitting in chair with no distress Pt said that she feels much better today she said that she does not feel dizzy she said that her breathing feels much better today pt said that she had an Holter monitor for one day she said that the holter monitor was returned on Tuesday Denies any chest pain, palpitation, dizziness Objective Last 8 Hrs Date Time Temp Pulse Resp B/P (MAP) Pulse Ox O2 Delivery O2 Flow Rate FiO2 06/13/17 12:00 Nasal Cannula 2.0 06/13/17 11:24 76 16 98 Nasal Cannula 2.0 06/13/17 08:03 37.0 75 22 173/87 (115) 97 Nasal Cannula 2.0 06/13/17 08:00 Nasal Cannula 2.0 06/13/17 07:09 80 16 98 Nasal Cannula 2.0 Physical Exam: General- No acute distress Head- atraumatic Eyes- PERRL, EOMI ENT- oropharynx clear Neck- supple, no JVD Lungs- decrease breath sound with poor air entry Heart- irregular rhythm; no murmur Abdomen- normal bowel sounds, soft Extremities- no calf tenderness, +edema Neuro- alert, oriented x 3; PERRL, EOMI; no facial palsy Skin- warm & dry Laboratory Results: Last 24 Hours Test 06/12/17 17:10 06/12/17 18:15 06/13/17 02:24 06/13/17 06:42 White Blood Count 7.82 K/uL 9.40 K/uL Red Blood Count 4.19 M/uL 4.24 M/uL Hemoglobin 11.5 g/dL 11.9 g/dL Hematocrit 36.5 % 36.7 % Mean Corpuscular Volume 87.1 fL 86.6 fL Mean Corpuscular Hemoglobin 27.4 pg 28.1 pg Mean Corpuscular Hemoglobin Concent 31.5 g/dl 32.4 g/dl Platelet Count 269 K/uL 280 K/uL Mean Platelet Volume 10.1 fL 10.2 fL Neutrophils (%) (Auto) 54.2 % Lymphocytes (%) (Auto) 22.0 % Monocytes (%) (Auto) 15.9 % Eosinophils (%) (Auto) 7.3 % Basophils (%) (Auto) 0.3 % Neutrophils # (Auto) 4.25 K/uL Lymphocytes # (Auto) 1.72 K/uL Monocytes # (Auto) 1.24 K/uL Eosinophils # (Auto) 0.57 K/uL Basophils # (Auto) 0.02 K/uL RDW Standard Deviation 46.5 fL 45.4 fL RDW Coefficient of Variation 14.6 % 14.5 % Immature Granulocyte % (Auto) 0.3 % Immature Granulocyte # (Auto) 0.02 K/uL Prothrombin Time 20.3 SECONDS Prothromb Time International Ratio 1.8 Activated Partial Thromboplast Time 39.2 SECONDS Partial Thromboplastin Ratio 1.5 Sodium Level 139 mmol/L 140 mmol/L Potassium Level 4.1 mmol/L 3.5 mmol/L Chloride Level 104 mmol/L 102 mmol/L Carbon Dioxide Level 29 mmol/L 32 mmol/L Anion Gap 6.0 mmol/L 6.0 mmol/L Blood Urea Nitrogen 21 mg/dl 18 mg/dl Creatinine 1.20 mg/dl 1.20 mg/dl Est Creatinine Clear Calc Drug Dose 38.5 ml/min 38.0 ml/min Estimated GFR () 48.7 48.7 Estimated GFR (Non- 42.1 42.1 BUN/Creatinine Ratio 17.4 15.3 Random Glucose 98 mg/dl 152 mg/dl Calcium Level 8.6 mg/dl 8.7 mg/dl Magnesium Level 2.0 mg/dl Total Bilirubin 0.6 mg/dl Aspartate Amino Transf (AST/SGOT) 20 U/L Alanine Aminotransferase (ALT/SGPT) 22 U/L Alkaline Phosphatase 104 U/L Troponin I < 0.015 ng/ml < 0.015 ng/ml Pro-B-Type Natriuretic Peptide 3210 pg/ml Total Protein 6.9 gm/dl Albumin 3.4 gm/dl Globulin 3.5 gm/dl Albumin/Globulin Ratio 1.0 Thyroid Stimulating Hormone (TSH) 2.160 uIu/ml Free Thyroxine 1.19 ng/dl Urine Color YELLOW Urine Appearance CLEAR Urine pH 5.0 Urine Specific [place] 1.020 Urine Protein NEG Urine Glucose (UA) NEG Urine Ketones NEG Urine Occult Blood NEG Urine Nitrite NEG Urine Bilirubin NEG Urine Urobilinogen NEG Urine Leukocyte Esterase NEG Total Creatine Kinase 96 U/L Creatine Kinase MB 1.0 ng/ml Creatine Kinase MB Ratio 1.0 Bedside Glucose 120 mg/dl Test 06/13/17 10:27 06/13/17 11:28 Total Creatine Kinase 62 U/L Creatine Kinase MB 0.5 ng/ml Creatine Kinase MB Ratio 0.8 Troponin I < 0.015 ng/ml Bedside Glucose 125 mg/dl Assessment & Plan Tachy-pham syndrome Symptomatic Bradycardia on admission Diltiazem and atenolol were on hold Now become tachycardia CM negative Case discussed with Cardiology Will restart diltiazem and atenolol Continue holding coumadin Plan for pacemaker placement tomorrow Will keep NPO after Midnight Follow up echo Continue monitor in telemetry Afib rate controlled Will restart diltiazem and atenolo Coumadin on hold for pacemaker in am INR 1.8 yesterday Check INR in am DIZZINESS: Mostly related to the bradycardia Continue monitor Improved HTN: Continue lisinopril Cardizem and atenolol were on hold, will resume Continue monitor BP CHRONIC ANEMIA: -Hemoglobin at 11.3, appears to be at baseline -no bleeding -monitor DM TYPE II: -continue sitagliptin -BSG AC and HS; sliding scale insulin if needed CHF CXR showed mild pulmonary vascular congestion without overt edema Elevated BNP Received lasix 40mg IV in the middle of the night Continue PO home dose lasix clinically stable CKD STAGE II: -at baseline -avoid nephrotoxins DYSLIPIDEMIA: -continue statin DVT px on lovenox subq for now INR 1.8 yesterday CODE STATUS FULL CODE Disposition Plan for pacemaker placement tomorrow Consultants: Cardiology Current Inpatient Medications: Current Inpatient Medications Medications (Trade) Dose Ordered Sig/Hetal Route Start Time Stop Time Status Last Admin Dose Admin Enoxaparin Sodium (Lovenox Inj) 40 mg Q24H SC 06/12/17 22:00 07/12/17 21:59 06/12/17 22:30 40 MG Acetaminophen (Tylenol Tab) 650 mg Q4H PRN PO 06/12/17 20:30 07/12/17 20:29 Ondansetron HCl (Zofran Inj) 4 mg Q6H PRN IV 06/12/17 20:30 07/12/17 20:29 Polyethylene (Miralax Powder Packet) 17 gm DAILY PRN PO 06/12/17 20:30 07/12/17 20:29 Budesonide/ Formoterol Fumarate (Symbicort 160/ 4.5 Inh) 2 puffs BID INH 06/12/17 21:00 07/12/17 20:59 06/13/17 08:11 2 PUFFS Furosemide (Lasix Tab) 20 mg DAILY PRN PO 06/12/17 20:45 07/12/17 20:44 Albuterol/ Ipratropium (Duoneb) 3 ml Q4R INH 06/13/17 00:00 07/13/17 00:00 06/13/17 11:24 3 ML Levothyroxine Sodium (Synthroid Tab) 125 mcg DAILYBB PO 06/13/17 06:00 07/13/17 05:59 06/13/17 05:15 125 MCG Lisinopril (Zestril Tab) 40 mg DAILY PO 06/13/17 09:00 07/13/17 08:59 06/13/17 08:13 40 MG Magnesium Oxide (Mag-Ox Tab) 400 mg BID PO 06/12/17 21:00 07/12/17 20:59 06/13/17 08:12 400 MG Pantoprazole Sodium (Protonix Tab) 40 mg DAILY PO 06/13/17 09:00 07/13/17 08:59 06/13/17 08:12 40 MG Sitagliptin Phosphate (Januvia Tab) 50 mg DAILY PO 06/13/17 09:00 07/13/17 08:59 06/13/17 08:12 50 MG Triamcinolone Acetonide (Nasacort Allergy 24hr) 2 sprays DAILY [place] 06/13/17 09:00 07/13/17 08:59 06/13/17 08:12 2 SPRAYS Albuterol/ Ipratropium (Duoneb) 3 ml Q2H PRN INH 06/12/17 22:00 07/12/17 21:59
--- NOTE | 2017-06-13 16:41 | ECHOCARDIOGRAM REPORT ---
*NOTICE TO RECEIVING CONSTITUTION PARTY AGENCY This information is strictly Confidential and protected under [place] law. [place] law prohibits you from making any further disclosure of this information unless further disclosure is expressly permitted by the written consent of the person to whom it pertains or is authorized by law. A general authorization for the release of medical or other information is not sufficient for this purpose. Hospital accepts no responsibility if the information is made available to any other person, INCLUDING THE PATIENT. Interpretation Summary * Name: STACY GANDHI Study Date: 06/13/2017 11:32 AM BP: 173/87 mmHg * Patient Location: C.2T\S\S238\S\1 HR: 80 * : 1935 (M/d/yyyy) Gender: Female Height: 59 in * Age: 82 yrs Ethnicity: [place] Weight: 214 lb * Ordering Physician: Gil Boyce * Referring Physician: Self, Referred * Performed By: Samantha Beckham RCS * * Reason For Study: CHF * BSA: 1.9 m2 * -- Conclusions -- * The left ventricle is normal in size. * There is mild concentric left ventricular hypertrophy. * No regional wall motion abnormalities noted. * Ejection Fraction = 60-65%. * The left atrium is severely dilated. * The right atrium is moderately dilated. * Aortic valve sclerosis moderate, without significant aortic valvular stenosis. * Trace aortic regurgitation. * There is moderate mitral regurgitation. * There is mild tricuspid regurgitation. * Right ventricular systolic pressure is moderately elevated at 40-50mmHg. Procedure Details * A complete two-dimensional transthoracic echocardiogram was performed (2D, M-mode, Doppler and color flow Doppler). Left Ventricle * The left ventricle is normal in size. * There is mild concentric left ventricular hypertrophy. * Left ventricular systolic function is normal. * Ejection Fraction = 60-65%. * No regional wall motion abnormalities noted. Right Ventricle * The right ventricle is normal in size and function. Atria * The left atrium is severely dilated. * The right atrium is moderately dilated. * No ASD detected; PFO is not assessed. Mitral Valve * There is moderate mitral annular calcification. * The mitral valve leaflets appear thickened, but open well. * There is no mitral valve stenosis. * There is moderate mitral regurgitation. Tricuspid Valve * The tricuspid valve anatomy is normal. * There is no tricuspid stenosis. * There is mild tricuspid regurgitation. * Right ventricular systolic pressure is elevated at 40-50mmHg. Aortic Valve * The aortic valve is trileaflet. * Aortic valve sclerosis moderate, without significant aortic valvular stenosis. * No hemodynamically significant valvular aortic stenosis. * Trace aortic regurgitation. Pulmonic Valve * The pulmonic valve is not well visualized. Great Vessels * The aortic root is normal size. Pericardium/Pleural * There is no pericardial effusion. Great Vessels * Normal inferior vena cava diameter and respiratory variation suggests normal central venous pressure. MMode 2D Measurements and Calculations IVSd 1.2 cm IVSs 1.3 cm LVIDd 4.4 cm LVIDs 3.5 cm LVPWd 1.1 cm LVPWs 1.4 cm IVS/LVPW 1.1 FS 21.9 % EDV(Teich) 89.6 ml ESV(Teich) 49.8 ml EF(Teich) 44.4 % EDV(cubed) 87.5 ml ESV(cubed) 41.7 ml EF(cubed) 52.3 % % IVS thick 3.7 % % LVPW thick 27.7 % LV mass(C)d 183.8 grams LV mass(C)dI 96.9 grams/m\S\2 LV mass(C)s 157.3 grams LV mass(C)sI 82.9 grams/m\S\2 SV(Teich) 39.8 ml SI(Teich) 21.0 ml/m\S\2 SV(cubed) 45.8 ml SI(cubed) 24.1 ml/m\S\2 Ao root diam 3.0 cm Ao root area 7.3 cm\S\2 LA dimension 6.1 cm LA/Ao 2.0 LVOT diam 1.8 cm LVOT area 2.5 cm\S\2 Doppler Measurements and Calculations MV E max babak 145.1 cm/sec MV P1/2t max babak 144.8 cm/sec MV P1/2t 79.9 msec MVA(P1/2t) 2.8 cm\S\2 MV dec slope 530.4 cm/sec\S\2 MV dec time 0.20 sec Ao V2 max 128.1 cm/sec Ao max PG 6.6 mmHg Ao max PG (full) 1.7 mmHg SERGIO(V,A) 2.1 cm\S\2 SERGIO(V,D) 2.1 cm\S\2 AI max babak 438.9 cm/sec AI max PG 77.1 mmHg AI dec slope 246.9 cm/sec\S\2 AI P1/2t 520.8 msec LV V1 max PG 4.9 mmHg LV V1 max 110.5 cm/sec MR max babak 537.8 cm/sec MR max PG 115.7 mmHg PA V2 max 105.9 cm/sec PA max PG 4.5 mmHg PI max babak 268.4 cm/sec PI max PG 28.8 mmHg PI dec slope 296.0 cm/sec\S\2 PI P1/2t 265.5 msec TR max babak 314.3 cm/sec
[2017-06-13] MEDS: METOPROLOL SUCC 25MG EXT REL TAB PO SCH (16:55)
--- NOTE | 2017-06-13 20:46 | CARDIOLOGY CONSULTATION ---
DATE OF CONSULTATION: 06/13/2017 PRIMARY DIRECTOR OF PLAYER PERSONNEL: Dr. Clement. INDICATIONS: Lightheadedness, dizziness, profound bradycardia. HISTORY OF PRESENT ILLNESS: The patient is an 82-year-old female whose past medical history is notable for chronic atrial fibrillation with borderline tachybrady syndrome, history of asthmatic/chronic obstructive lung disease with chronic sleep apnea, CPAP and O2 dependent, CPAP setting 4, history of past diastolic heart failure, type 2 diabetes mellitus, prior history of AVNRT status post successful radiofrequency ablation in 2009. The patient presents now this admission, noting having been found to be bradycardic over the past month's time with occasional lightheadedness and dizziness. Date of admission, she presented with worsening symptoms of acute dizziness and breathlessness. On presentation, she was found to be in atrial fibrillation with slow ventricular response rate. The medications are held, specifically atenolol and diltiazem which were required for maintenance of heart rates, remained tachycardic as an outpatient. She currently feels substantially improved this morning. Denies any chest pains. Notes no dizziness or lightheadedness. Notes no syncope or near syncope. Breathlessness has improved substantially. She notes no fevers, chills or productive cough. Notes no bleeding difficulties. Notes no melena, hematochezia, dysuria or hematuria. Has been taking medications faithfully. ALLERGIES: PENICILLIN. MEDICATIONS: Prior to hospitalization were Januvia 50 mg q. day, lisinopril 40 mg p.o. q. day, atenolol 100 mg twice per day, diltiazem CD 120 mg p.o. q. day, Protonix 40 mg twice per day, furosemide 20 mg p.r.n., Jantoven/warfarin 5 mg per day with 7.5 mg on Tuesday, levothyroxine 125 mcg p.o. q. day, Symbicort inhaler 2 puffs q. day, albuterol nebulizer p.r.n., Mag-Ox 400 mg p.o. q. day, and Nasacort nasal spray. PAST SURGICAL HISTORY: Notable for prior radiofrequency ablation of AVNRT March of 2010, past history of appendectomy, oophorectomy, tonsillectomy, herniorrhaphy, cervical and lumbar hemilaminectomies. FAMILY HISTORY: Noncontributory. SOCIAL HISTORY: The patient is a nonsmoker, occasional alcohol user. PHYSICAL EXAMINATION: GENERAL: The patient is a pleasant, age-appropriate female in no acute distress this morning. VITAL SIGNS: Heart rates demonstrate heart rate is 75 with blood pressure 173/87. NECK: Thick. There is no distinct jugular venous distention. LUNGS: Reveal diminished breath sounds but are predominantly clear. CARDIOVASCULAR: Irregularly irregular. There is no S3 gallop. ABDOMEN: Soft, mildly distended. EXTREMITIES: Without cyanosis or clubbing. There is no peripheral edema today. LABORATORY DATA: Since admission, the patient has had 4000 mL diuresis. Laboratory studies this morning pending. Sodium is 140, potassium is 3.5, chloride is 102, bicarb is 32, BUN is 18, creatinine is 1.2, hemoglobin is 11.9. Chest x-ray revealed cardiomegaly on presentation with vascular congestion. EKG revealed atrial fibrillation with slow ventricular response rate 57, poor R-wave progression across the anterior precordial leads. Telemetry has demonstrated predominantly tachyarrhythmia since discontinuation of medications, occasional brief pauses. IMPRESSION: An 82-year-old female with borderline tachybrady syndrome, who presented with profound bradycardia, evidence of decompensated probable diastolic heart failure. Medications have been held, specifically the combination of atenolol, diltiazem use to control heart rate. PLAN: Will be to reinstitute Toprol at 25 mg twice per day for heart rate control with planned likelihood of need for pacemaker during this admission. Anticoagulation has been held. We will keep n.p.o. after midnight except for medications. Echocardiogram will be ordered. The patient has clinically responded to therapy since admission. [facility]
[2017-06-14] VITALS (16 sets, daily range): BP systolic 130–185; BP diastolic 83–103; PULSE 73–107; TEMP 36.5–37.2; O2SAT 87–100
[2017-06-14] MEDS: ALBUT/IPRATROP 3MG/0.5MG NEB 3 ML VIAL INH SCH ×7 (04:07→23:01)
[2017-06-14] MEDS: LEVOTHYROXINE 125 MCG TAB PO SCH (05:02)
[2017-06-14 06:57] LABS: HEMATOCRIT 39.5 % (37-47); MEAN CELL VOLUME 87.8 fL (80-100); MEAN CORPUSCULAR HEMOGLOBIN 26.4 pg (25-34); MEAN CORPUSCULAR HGB CONC 30.1 g/dl (32-36); MEAN PLATELET VOLUME 10.1 fL (7.4-10.4); PLATELET COUNT 289 K/uL (130-400); WHITE BLOOD COUNT 8.29 K/uL (4.8-10.8)
[2017-06-14 07:03] LABS: INR 1.5 (0.9-1.1); PROTHROMBIN TIME (PATIENT) 16.7 SECONDS (9.0-12.0)
[2017-06-14 07:32] LABS: BUN/CREATININE RATIO 16.5 (10-20); CREATININE 1.2 mg/dl (0.60-1.20); POTASSIUM 3.8 mmol/L (3.5-5.1)
[2017-06-14] MEDS: PANTOprazole SOD 40 MG TAB PO SCH (08:29)
[2017-06-14] MEDS: METOPROLOL SUCC 25MG EXT REL TAB PO SCH ×2 (08:29→17:06)
[2017-06-14] MEDS: MAGNESIUM OXIDE 400 MG TAB PO SCH ×2 (08:29→20:18)
[2017-06-14] MEDS: TRIAMCINOLONE ACET NASAL SPRAY 10.8ML BTL NAE SCH (08:30)
[2017-06-14] MEDS: BUDESONIDE/FORMOTEROL FUMARATE 160/4.5 60 PUFFS/INHALER INH SCH ×2 (08:30→20:18)
[2017-06-14] MEDS: LISINOPRIL 40 MG TAB PO SCH (08:30)
[2017-06-14] MEDS: SITAGLIPTIN 25 MG TAB PO SCH (08:30)
--- NOTE | 2017-06-14 08:59 | Clinical Documentation Query ---
GUSTAVO Abdul : CLINICAL DOCUMENTATION QUERY Patient is an 82 year old female admitted for evaluation and treatment of tachy-pham syndrome. H&P notes a history of CHF, unspecified. Progress note 06/13 included: "CHF CXR showed mild pulmonary vascular congestion without overt edema Elevated BNP Received lasix 40mg IV in the middle of the night Continue PO home dose lasix clinically stable Echocardiogram demonstrated normal biventricular systolic function. Cardiology notes a ", history of past diastolic heart failure" In your clinical opinion is this patient being managed for: ( ) Acute diastolic (congestive) heart failure ( ) Not Agree ( ) Other explanation of clinical findings (Please Explain) ( ) Unable to determine (Please Define) ( ) Need to Discuss The medical record reflects the following clinical findings, treatment, and risk factors. Clinical Indicators: As above Treatment: IV Lasix Risk Factors: Age, history of chronic diastolic CHF, hypertension, tachy-pham syndrome Please clarify and document your clinical opinion in the progress notes and discharge summary. Terms such as "probable", "suspected", "likely", "questionable", "possible", or "still to be ruled out" are acceptable. IF IN AGREEMENT, YOU MUST DOCUMENT ABOVE DIAGNOSTIC STATEMENT IN DAILY PROGRESS NOTES AND DISCHARGE SUMMARY. This document is not part of the patient's record. Thank You, Fausto Ralph, JOCELYN [phone]
--- NOTE | 2017-06-14 09:46 | Clinical Documentation Query ---
RUBY Mullins : CLINICAL DOCUMENTATION QUERY Patient is an 82 year old female admitted for evaluation and treatment of tachy-pham syndrome. H&P notes a history of CHF, unspecified. Progress note 06/13 included: "CHF CXR showed mild pulmonary vascular congestion without overt edema Elevated BNP Received lasix 40mg IV in the middle of the night Continue PO home dose lasix clinically stable Echocardiogram demonstrated normal biventricular systolic function. Cardiology notes a ", history of past diastolic heart failure" In your clinical opinion is this patient being managed for: (x ) Acute diastolic (congestive) heart failure ( ) Not Agree ( ) Other explanation of clinical findings (Please Explain) ( ) Unable to determine (Please Define) ( ) Need to Discuss The medical record reflects the following clinical findings, treatment, and risk factors. Clinical Indicators: As above Treatment: As above Risk Factors: Age, tachy-pham syndrome, atrial fibrillation, hypertension Please clarify and document your clinical opinion in the progress notes and discharge summary. Terms such as "probable", "suspected", "likely", "questionable", "possible", or "still to be ruled out" are acceptable. IF IN AGREEMENT, YOU MUST DOCUMENT ABOVE DIAGNOSTIC STATEMENT IN DAILY PROGRESS NOTES AND DISCHARGE SUMMARY. This document is not part of the patient's record. Thank You, Fausto Ralph RN [phone]
[2017-06-14] MEDS ORDERED: AMLODIPINE BESYLATE 5 MG TAB PO ONE (10:00)
[2017-06-14] MEDS ORDERED: NURSING VERBAL MED ORDER ONE (11:45)
--- NOTE | 2017-06-14 11:54 | History & Physical Bridge Note ---
H&P Re-Evaluation Bridge Note: I have examined the patient, reviewed the History & Physical and in the interval since the performance of the History & Physical I have noted the following changes of clinical significance: Pt with TBS for single chamber ppm
--- NOTE | 2017-06-14 11:55 | Procedure Note ---
Pre-Mod Sedation Assessment General Date of Moderate Sedation: Jun 14, 2017. Vital Signs: Vital Signs Past 12 Hours Date Time Temp Pulse Resp B/P (MAP) Pulse Ox O2 Delivery O2 Flow Rate FiO2 06/14/17 08:00 Room Air 2.0 Nasal Cannula 06/14/17 07:33 36.9 90 20 168/99 (122) 97 Nasal Cannula 2.0 06/14/17 07:14 89 16 97 Nasal Cannula 2.0 06/14/17 04:07 88 16 98 Nasal Cannula 2.0 06/14/17 04:00 Room Air 2.0 Nasal Cannula 06/14/17 03:33 37.0 73 17 146/85 (105) 97 Nasal Cannula 2.0 06/14/17 00:00 37.1 91 19 178/94 (122) 95 Nasal Cannula 2.0 06/14/17 00:00 Room Air 2.0 Nasal Cannula Review Cardiovascular: + bradycardia, + irregularly irregular Abdomen: soft Lungs: lungs clear Airway Class: II Pre-Sedation Airway Assessment Oral Cavity: Dentures Short Thick Neck: Yes Hx of Sleep Apnea: No Smoking Status: Never Smoker Mallampati Classification: Class II ASA Classification: Class II Procedure Planning Contraindications-for Mod Sed: None Yes Notes The planned sedation has been discussed with the patient and consent obtained. I have identified the patient, determined the appropriateness of sedation and have assessed the patient immediately prior to the procedure. All medicine(s) and interventions are by my order.
[2017-06-14] MEDS ORDERED: BUPIVACAINE 0.5 % 5 MG/1 ML MPF 30ML VIAL ONE (11:58)
[2017-06-14] MEDS ORDERED: LIDOCAINE HCL 1% 20 ML VIAL ONE (11:58)
[2017-06-14] MEDS ORDERED: BACITRACIN 50000 UNIT VIAL ONE (11:58)
[2017-06-14] MEDS ORDERED: FENTANYL CITRATE INJ 50 MCG/1 ML 2 ML VIAL ONE (12:06)
[2017-06-14] MEDS ORDERED: MIDAZOLAM HCL 5 MG/ML 1 ML VIAL ONE (12:06)
[2017-06-14] MEDS ORDERED: CLINDAMYCIN IV 600 MG in DEXTROSE 5% ADD-VANTAGE 50ML 50 ML IV ONE (12:15)
--- NOTE | 2017-06-14 13:33 | Procedure Note ---
Post-Mod Sedation Assessment General Date of Moderate Sedation Jun 14, 2017. Vital Signs: Vital Signs Past 12 Hours Date Time Temp Pulse Resp B/P (MAP) Pulse Ox O2 Delivery O2 Flow Rate FiO2 06/14/17 13:25 120 16 174/109 (130) 98 Nasal Cannula 3 06/14/17 12:30 37.2 107 20 185/97 (126) 97 Nasal Cannula 2.0 06/14/17 11:52 90 16 98 Nasal Cannula 2.0 06/14/17 08:00 Room Air 2.0 Nasal Cannula 06/14/17 07:33 36.9 90 20 168/99 (122) 97 Nasal Cannula 2.0 06/14/17 07:14 89 16 97 Nasal Cannula 2.0 06/14/17 04:07 88 16 98 Nasal Cannula 2.0 06/14/17 04:00 Room Air 2.0 Nasal Cannula 06/14/17 03:33 37.0 73 17 146/85 (105) 97 Nasal Cannula 2.0 Review - Discharge Criteria Vital Signs Stable: Yes Alert/Oriented/Conversant: Yes Returned to Baseline Mental St: Yes Nausea Absent/Minimal: Yes Pain/Discomfort/Absent/Minimal: Yes Active Bleeding?: No Pt Received D/C Instructions: N/A Prescriptions Given: None Specific Proced. D/C Criteria Distal Pulses Present (Cardiac: N/A Groin site assessed-Card Cath: N/A Voided Prior To Discharge: N/A Discharged Patients Adult Escort/Transportation: N/A
--- NOTE | 2017-06-14 13:34 | [facility] Post Operative Brief Note ---
Immediate Operative Summary Operative Date Jun 14, 2017. Pre-Operative Diagnosis TBS Post-Operative Diagnosis SAME Procedure(s) Performed SINGLE CHAMBER PERMANENT PACEMAKER Surgeon TRINI SHARP Dealer Accounts Investigator Surgeon(s) NONE Estimated Blood Loss <15CC Findings SEE OFFICIAL REPORT Fluids (cc crystalloids) 100CC Specimens NONE Drains NONE Anesthesia 4MG VERSED AND 100MCG FENTANTYL Complication(s) None Disposition PCU
--- NOTE | 2017-06-14 14:56 | Progress Note ---
Medicine Progress Note Date & Time of Visit: Jun 14, 2017 at 09:30. (Abbey Bustillo PA-C) Subjective Patient seen and examined after being admitted on 06/12/17 for tachy-pham syndrome with symptomatic bradycardia. She denies complaints at present. Has been ambulating to restroom with assistance. Denies dizziness, chest pain, palpitations, SOB, edema. She is NPO this morning for planned pacemaker placement today. (Abbey Bustillo PA-C) Objective Last 8 Hrs Date Time Temp Pulse Resp B/P (MAP) Pulse Ox O2 Delivery O2 Flow Rate FiO2 06/14/17 08:00 Room Air 2.0 Nasal Cannula 06/14/17 07:33 36.9 90 20 168/99 (122) 97 Nasal Cannula 2.0 06/14/17 07:14 89 16 97 Nasal Cannula 2.0 06/14/17 04:07 88 16 98 Nasal Cannula 2.0 06/14/17 04:00 Room Air 2.0 Nasal Cannula 06/14/17 03:33 37.0 73 17 146/85 (105) 97 Nasal Cannula 2.0 Physical Exam: General-pleasant alert 82 year old female, lying in bed, no distress Eyes-anicteric ENT-hearing intact Neck-trachea midline Lungs-CTA, no wheezing, rhonchi, or crackles, no respiratory distress Heart- irregularly irregular, no murmur Abdomen-soft, nontender, normal bowel sounds Extremities- no edema, no calf tenderness Neuro-alert and oriented x 3, affect normal, grossly nonfocal Laboratory Results: Last 24 Hours Test 06/13/17 10:27 06/13/17 11:28 06/13/17 16:08 06/13/17 20:32 Total Creatine Kinase 62 U/L Creatine Kinase MB 0.5 ng/ml Creatine Kinase MB Ratio 0.8 Troponin I < 0.015 ng/ml Bedside Glucose 125 mg/dl 127 mg/dl 136 mg/dl Test 06/14/17 06:28 06/14/17 06:43 White Blood Count 8.29 K/uL Red Blood Count 4.50 M/uL Hemoglobin 11.9 g/dL Hematocrit 39.5 % Mean Corpuscular Volume 87.8 fL Mean Corpuscular Hemoglobin 26.4 pg Mean Corpuscular Hemoglobin Concent 30.1 g/dl RDW Standard Deviation 46.4 fL RDW Coefficient of Variation 14.4 % Platelet Count 289 K/uL Mean Platelet Volume 10.1 fL Prothrombin Time 16.7 SECONDS Prothromb Time International Ratio 1.5 Sodium Level 138 mmol/L Potassium Level 3.8 mmol/L Chloride Level 101 mmol/L Carbon Dioxide Level 33 mmol/L Anion Gap 4.0 mmol/L Blood Urea Nitrogen 20 mg/dl Creatinine 1.20 mg/dl Est Creatinine Clear Calc Drug Dose 37.0 ml/min Estimated GFR () 48.7 Estimated GFR (Non- 42.1 BUN/Creatinine Ratio 16.5 Random Glucose 115 mg/dl Calcium Level 9.0 mg/dl Bedside Glucose 103 mg/dl (Abbey Bustillo PA-C) Assessment & Plan 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 There is mild concentric left ventricular hypertrophy.No regional wall motion abnormalities noted. Ejection Fraction = 60-65%.The left atrium is severely dilated. The right atrium is moderately dilated. Aortic valve sclerosis moderate, without significant aortic valvular stenosis. Trace aortic regurgitation. There is moderate mitral regurgitation. There is mild tricuspid regurgitation. Right ventricular systolic pressure is moderately elevated at 40-50mmHg." Cardiology consulted, appreciate input Coumadin held for pacemaker procedure- to be done today ATRIAL FIBRILLATION HR 70's-90's this AM Coumadin on hold for pacemaker today INR 1.5 DIZZINESS- resolved Likely secondary to symptomatic bradycardia HTN Continue lisinopril Cardizem and atenolol held; was started on metoprolol succinate 25 mg BID by cardiology BP running high Monitor ANEMIA Hg in 's, runs between 10's-13's as outpatient Monitor DM TYPE II On sitagliptin Monitor BSG AC HS BSG's running low 100's Add insulin sliding scale if BSG's become elevated CHRONIC CHF On admission, CXR showed mild pulmonary vascular congestion without overt edema , BNP was elevated (~3200) Received dose of Lasix 40mg IV on 06/12 evening Currently compensated Continue home dose PO Lasix CKD STAGE II Creat is 1.2, stable from baseline Monitor renal function DYSLIPIDEMIA Continue statin DVT PROPHYLAXIS Coumadin held for procedure, was on Lovenox SQ- held for procedure CODE STATUS Full code per admitting provider's documentation DISPOSITION Telemetry Follows with Dr. Manriquez for primary care Patient seen in collaboration with Dr. Pat. Please see her addendum. Consultants: Cardiology Current Inpatient Medications: Current Inpatient Medications Medications (Trade) Dose Ordered Sig/Hetal Route Start Time Stop Time Status Last Admin Dose Admin Enoxaparin Sodium (Lovenox Inj) 40 mg Q24H SC 06/12/17 22:00 07/12/17 21:59 Future Hold 06/12/17 22:30 40 MG Acetaminophen (Tylenol Tab) 650 mg Q4H PRN PO 06/12/17 20:30 07/12/17 20:29 Ondansetron HCl (Zofran Inj) 4 mg Q6H PRN IV 06/12/17 20:30 07/12/17 20:29 Polyethylene (Miralax Powder Packet) 17 gm DAILY PRN PO 06/12/17 20:30 07/12/17 20:29 Budesonide/ Formoterol Fumarate (Symbicort 160/ 4.5 Inh) 2 puffs BID INH 06/12/17 21:00 07/12/17 20:59 06/14/17 08:30 2 PUFFS Furosemide (Lasix Tab) 20 mg DAILY PRN PO 06/12/17 20:45 07/12/17 20:44 Albuterol/ Ipratropium (Duoneb) 3 ml Q4R INH 06/13/17 00:00 07/13/17 00:00 06/14/17 07:14 3 ML Levothyroxine Sodium (Synthroid Tab) 125 mcg DAILYBB PO 06/13/17 06:00 07/13/17 05:59 06/13/17 05:15 125 MCG Lisinopril (Zestril Tab) 40 mg DAILY PO 06/13/17 09:00 07/13/17 08:59 06/14/17 08:30 40 MG Magnesium Oxide (Mag-Ox Tab) 400 mg BID PO 06/12/17 21:00 07/12/17 20:59 06/14/17 08:29 400 MG Pantoprazole Sodium (Protonix Tab) 40 mg DAILY PO 06/13/17 09:00 07/13/17 08:59 06/14/17 08:29 40 MG Sitagliptin Phosphate (Januvia Tab) 50 mg DAILY PO 06/13/17 09:00 07/13/17 08:59 06/14/17 08:30 50 MG Triamcinolone Acetonide (Nasacort Allergy 24hr) 2 sprays DAILY [place] 06/13/17 09:00 07/13/17 08:59 06/14/17 08:30 2 SPRAYS Albuterol/ Ipratropium (Duoneb) 3 ml Q2H PRN INH 06/12/17 22:00 07/12/17 21:59 Metoprolol Succinate (Toprol Xl Tab) 25 mg BID17 PO 06/13/17 17:00 07/13/17 16:59 06/14/17 08:29 25 MG (Abbey Bustillo PA-C) ADDENDUM: I have seen and evaluated Ms. May and agree with the assessment and plan as stated above. She is doing well post-procedure, however, her HR is now increased to 130s off the diltiazem and atenolol. Discussed briefly with Dr. Clement and restarting Diltiazem 120mg at this time beginning daily in am. Also increased her Toprol XL from 25mg BID to 100mg with remaining 75mg of tonight's dose to be given at 9pm, which is at least 2 hours after the diltiazem will be started. Otherwise her wound site looks good-is closed without any drainage or obvious seroma/hematoma formation. She is tolerating PO and visiting with family present at the bedside. Appreciate Cardiology recommendation on when to restart her coumadin post-procedure. DO Bi (Gloria Pat, DO)
[2017-06-14] MEDS: ACETAMINOPHEN/CODEINE 300/30MG TAB PO PRN ×2 (17:08→21:51)
[2017-06-14] MEDS: DILTIAZEM HCL 120 MG CAPCR PO SCH (18:40)
--- NOTE | 2017-06-14 20:51 | OPERATIVE REPORT ---
DATE OF OPERATION: 06/14/2017 PREOPERATIVE DIAGNOSIS: Tachybrady syndrome. POSTOPERATIVE DIAGNOSIS: Same. PROCEDURE: Single chamber rate responsive permanent pacemaker under fluoroscopic guidance along with peripheral venogram. SURGEON: Dr. Cleo Buchanan. REPAIR TECHNICIAN: None. ANESTHESIA: Monitored conscious sedation administered under my supervision by Hakan Enriquez. A total of 4 mg of Versed, 100 mcg of fentanyl. Start time 12:34 and end time 1325. BLOOD LOSS: Less than 10 mL. COMPLICATIONS: None. CONDITION: Stable. INTRAVENOUS FLUIDS: 100 mL. URINE OUTPUT: Not applicable. SPECIMENS: None. FINDINGS: See below. DRAINS: None. 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 She was admitted to the [facility] secondary to atrial fibrillation with slow ventricular response. Her AV oscar blockers were titrated down; however, she continues to have episodes of atrial fibrillation with rapid ventricular response and for this reason, electrophysiology was consulted for permanent pacemaker secondary to tachybrady syndrome. CONSENT: Consent was obtained prior to the patient going into the electrophysiology lab. The patient was explained the risks, benefits and alternatives to procedure. Risks include but not limited to sudden cardiac , cardiac arrhythmias, cerebrovascular accident, myocardial infarction, injury to the blood vessels, chamber of the heart, the lungs, bleeding and infection. The patient understood these risks and agreed to the procedure as planned. Informed consent was obtained. DESCRIPTION OF THE PROCEDURE: The patient was brought into the electrophysiology lab in a fasting state. She was connected to continuous cardiac monitoring. A timeout was performed to ensure patient's identity and procedure correctly. The patient was prepped and draped over the left infraclavicular space in normal surgical standard fashion. She received prophylactic antibiotics prior to incision. Monitored conscious sedation was given throughout the procedure for patient's comfort level via my supervision. [place] precautions were maintained throughout the procedure. 10 mL of 1% lidocaine, bupivacaine mixture were given in the left deltopectoral groove. Incision was made in the left deltopectoral groove. Peripheral venogram was performed. Due to the patient's body habitus, I did not think that I would be able to find the cephalic vein. We did see a cephalic vein and the axillary vein on the peripheral venogram. I initially tried to get the axillary vein; however, I was having some difficulties, so I then did blunt dissection down to the cephalic vein. The cephalic vein was isolated using 0 silk ties and nicked with an 11 blade. A guidewire was inserted without any resistance. An 8-English sheath was then inserted over the guidewire without any resistance. The guidewire and dilator removed. The right ventricular pacing lead was then advanced into the right ventricle and positioned into the right ventricular apex under fluoroscopic guidance. There was adequate pacing and sensing thresholds and no diaphragmatic stimulation with high output pacing. The 8-English sheath was peeled away and the lead was fixated to the pectoralis muscle using 0 silk sutures. A pacemaker pocket was created using blunt dissection over the pectoralis muscle within the pectoralis fascia. Then the pocket was flushed with copious amounts of bacitracin saline wash and inspected for hemostasis. The lead was attached to the pulse generator, making sure that the pins were in appropriate position, passed set screws and the set screws were tightened. The pulse generator was then placed in the pocket, making sure that the leads were lying flat beneath the device. A stay stitch using 0 silk suture was used to secure the device to the pectoralis muscle. The incision was closed in a 4-layer fashion using 2 layers of 2-0 Vicryl interrupted suture, followed then by a layer of 3-0 Vicryl interrupted suture, followed by a 4-0 Monocryl running stitch and Dermabond was applied. Because the patient was going back on Coumadin, we did give Raul stat in the pocket. EQUIPMENT: 1. Pulse generator is a [employer] Advisa SR MRI SureScan A3SR01, serial #[id number]. 2. Right atrial lead Medtronic 5076-58 cm, serial #[id number]. INTRAOPERATIVE TESTING: Right ventricular lead R-wave 10.2 millivolts, impedance 1354 ohms, threshold 0.6 volts at 0.5 milliamps. FINAL MEASUREMENTS THROUGH THE DEVICE: R-waves 12.8 millivolts, impedance 931 ohms, threshold 0.5 volts at 0.4 milliseconds. FINAL PARAMETERS: VVI 60/130. Right ventricular amplitude 3.5 volts, pulse width 0.4 milliseconds, sensitivity 1.2 millivolts. IMPRESSION: Successful implantation of a single chamber rate responsive permanent pacemaker under fluoroscopic guidance along with peripheral venogram secondary to tachybrady syndrome. PLAN: Monitor patient overnight, 12-lead ECG, chest x-ray. She cannot lift the left elbow over the left shoulder for 1 month. She cannot lift more than 10 pounds with the left arm for 2 weeks. She can continue on her home medications and she should follow up in our [facility] device clinic in 7-10 days for device and wound check. I attest to the content of the Intraoperative Record and any orders documented therein. Any exceptions are noted below. SIERRA
[2017-06-14] MEDS ORDERED: METOPROLOL SUCC 25MG EXT REL TAB PO SCH (21:00)
[2017-06-15] VITALS (11 sets, daily range): BP systolic 119–157; BP diastolic 74–88; PULSE 88–106; TEMP 37.1–38.3; O2SAT 88–100
[2017-06-15] MEDS: ALBUT/IPRATROP 3MG/0.5MG NEB 3 ML VIAL INH SCH ×6 (03:20→22:59)
[2017-06-15] MEDS: LEVOTHYROXINE 125 MCG TAB PO SCH (06:41)
[2017-06-15 06:47] LABS: HEMATOCRIT 38.8 % (37-47); MEAN CELL VOLUME 86.2 fL (80-100); MEAN CORPUSCULAR HEMOGLOBIN 27.6 pg (25-34); MEAN PLATELET VOLUME 10.5 fL (7.4-10.4); PLATELET COUNT 283 K/uL (130-400); WHITE BLOOD COUNT 12.58 K/uL (4.8-10.8)
[2017-06-15 07:07] LABS: INR 1.4 (0.9-1.1); PROTHROMBIN TIME (PATIENT) 15.4 SECONDS (9.0-12.0)
--- NOTE | 2017-06-15 07:19 | DIAGNOSTIC IMAGING REPORT ---
CHEST 2 VIEWS ROUTINE HISTORY: EXACT TIME ORDERED Evaluate for pneumothorax and lead placement COMPARISON: Chest 06/12/2017. FINDINGS: Interval placement of a left-sided single lead pacemaker. The lead appears intact. No pneumothorax. Mild pulmonary edema has slightly progressed. The heart remains mildly enlarged. No pleural effusions. Old, healed right-sided rib fractures. IMPRESSION: 1. Interval placement left-sided single lead pacemaker. No pneumothorax. 2. Slight progression of the mild interstitial pulmonary edema. Electronically signed by: Carson Munoz M.D. 06/15/2017 7:18 AM Dictated Date/Time: 06/15/2017 7:17 AM
[2017-06-15 07:20] LABS: BUN/CREATININE RATIO 17.9 (10-20); CALCIUM 9.2 mg/dl (8.5-10.1); MAGNESIUM 2.2 mg/dl (1.8-2.4); POTASSIUM 3.9 mmol/L (3.5-5.1)
[2017-06-15] MEDS: PANTOprazole SOD 40 MG TAB PO SCH (07:42)
[2017-06-15] MEDS: LISINOPRIL 40 MG TAB PO SCH (07:43)
[2017-06-15] MEDS: SITAGLIPTIN 25 MG TAB PO SCH (07:43)
[2017-06-15] MEDS: MAGNESIUM OXIDE 400 MG TAB PO SCH ×2 (07:43→19:39)
[2017-06-15] MEDS: METOPROLOL SUCC 50MG EXT REL TAB PO SCH ×2 (07:43→19:39)
[2017-06-15] MEDS: DILTIAZEM HCL 120 MG CAPCR PO SCH (07:43)
[2017-06-15] MEDS: ACETAMINOPHEN/CODEINE 300/30MG TAB PO PRN (07:45)
[2017-06-15] MEDS: TRIAMCINOLONE ACET NASAL SPRAY 10.8ML BTL NAE SCH (07:46)
[2017-06-15] MEDS: BUDESONIDE/FORMOTEROL FUMARATE 160/4.5 60 PUFFS/INHALER INH SCH ×2 (07:46→19:38)
[2017-06-15] MEDS ORDERED: DILTIAZEM HCL 120 MG CAPCR PO ONE (11:34)
--- NOTE | 2017-06-15 12:48 | Cardiology Follow-Up ---
Subjective Subjective Date of Service: Jun 15, 2017. Pt evaluation today including: conversation w/ patient, physical exam, chart review, lab review, review of studies, review of inpatient medication list Additional Details: Pt seen and examined, states that she feels well. No significant pain at pocket site. Denies cp, sob, palpitations, lightheadedness or dizziness. Tele reviewed: afib in 90's-100's. Problem List Medical Problems: (1) Atrial fibrillation Status: Acute (2) Bradycardia Status: Acute (3) CHF (congestive heart failure) Status: Acute (4) Left ankle pain Status: Acute (5) Lightheadedness Status: Acute Review of Systems ENT: No see HPI, No hearing loss, No unusual epistaxis, No nasal symptoms, No sore throat, No tinnitus, No dental problems, No trouble swallowing, No problem reported Respiratory: + cough, + wheezing, No see HPI, No sputum, No shortness of breath , No dyspnea on exertion, No dyspnea at rest, No hemoptysis, No problem reported Cardiac: + orthopnea Objective Vital Signs Last Vital Signs Documentation Date Time Temp Pulse Resp B/P (MAP) Pulse Ox O2 Delivery O2 Flow Rate FiO2 06/15/17 12:35 37.6 91 20 119/74 (89) 91 Room Air 06/15/17 11:11 2.0 Physical Exam: General Appearance: WD/WN, no apparent distress Eyes: bilateral eyes normal inspection, bilateral eyes PERRL, bilateral eyes EOMI ENT: normal ENT inspection, hearing grossly normal, pharynx normal Neck: supple, no adenopathy, thyroid normal, no JVD, no carotid bruits, trachea midline Respiratory/Chest: chest non-tender, lungs clear, normal breath sounds, no respiratory distress, no accessory muscle use Cardiovascular: no edema, no gallop, no JVD, no murmur, + irregularly irregular Abdomen: normal bowel sounds, non tender, soft, no organomegaly, no pulsatile mass Extremities: normal inspection, no pedal edema, no calf tenderness Neurologic/Psychiatric: log cut off sawyer II-XII nml as tested, no motor/sensory deficits, alert, normal mood/affect, oriented x 3 Skin: normal color, warm/dry, no rash Lymphatic: no adenopathy Assessment and Plan 1. 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 Persistent afib rates elevated will now uptitrate cardizem to 240mg daily with pacer in place cont toprol xl 100mg bid restart coumadin, no bridge ok to d/c to home from cardiac standpoint
[2017-06-15] MEDS ORDERED: DILT-115 PO (15:11)
[2017-06-15] MEDS ORDERED: ACET-749 PO (15:11)
[2017-06-15] MEDS ORDERED: METO1TAB68 PO (15:11)
--- NOTE | 2017-06-15 17:04 | Progress Note ---
Medicine Progress Note Date & Time of Visit: Jun 15, 2017 at 16:38. (Abbey Bustillo PA-C) Subjective Pacemaker was placed yesterday. Patient reports some discomfort around incision site which worsens with movement. Was mildly febrile (38.2 C) this morning, but patient was not aware of any fever or chills. She reports chronic MACARIO which is unchanged over several months. No acute shortness of breath. No dizziness, substernal chest pressure, palpitations, increasing LE edema. She reports low appetite today, but did eat breakfast. Her HR increased to 150's this morning, but improved to 90's after AM meds were given. (Abbey Bustillo PA-C) Objective Last 8 Hrs Date Time Temp Pulse Resp B/P (MAP) Pulse Ox O2 Delivery O2 Flow Rate FiO2 06/15/17 16:13 90 16 95 Room Air 06/15/17 15:37 37.6 102 20 135/80 (98) 91 Room Air 06/15/17 12:35 37.6 91 20 119/74 (89) 91 Room Air 06/15/17 12:00 Room Air 06/15/17 11:11 94 15 94 Nasal Cannula 2.0 Physical Exam: General-pleasant obese elderly female, sitting in bedside chair, no distress Eyes-anicteric ENT-hearing intact Neck-trachea midline Lungs-CTA, no wheezing, rhonchi, or crackles, no respiratory distress Heart- irregularly irregular, no murmur Abdomen-soft, nontender, normal bowel sounds Extremities- no edema, no calf tenderness Neuro-alert and oriented x 3, affect normal, grossly nonfocal Laboratory Results: Last 24 Hours Test 06/14/17 20:02 06/15/17 05:45 06/15/17 06:53 06/15/17 10:50 Bedside Glucose 137 mg/dl 114 mg/dl 144 mg/dl White Blood Count 12.58 K/uL Red Blood Count 4.50 M/uL Hemoglobin 12.4 g/dL Hematocrit 38.8 % Mean Corpuscular Volume 86.2 fL Mean Corpuscular Hemoglobin 27.6 pg Mean Corpuscular Hemoglobin Concent 32.0 g/dl RDW Standard Deviation 45.5 fL RDW Coefficient of Variation 14.4 % Platelet Count 283 K/uL Mean Platelet Volume 10.5 fL Prothrombin Time 15.4 SECONDS Prothromb Time International Ratio 1.4 Sodium Level 137 mmol/L Potassium Level 3.9 mmol/L Chloride Level 98 mmol/L Carbon Dioxide Level 32 mmol/L Anion Gap 7.0 mmol/L Blood Urea Nitrogen 18 mg/dl Creatinine 1.00 mg/dl Est Creatinine Clear Calc Drug Dose 44.4 ml/min Estimated GFR () 60.8 Estimated GFR (Non- 52.4 BUN/Creatinine Ratio 17.9 Random Glucose 124 mg/dl Calcium Level 9.2 mg/dl Magnesium Level 2.2 mg/dl Test 06/15/17 16:26 Bedside Glucose 128 mg/dl (Abbey Bustillo PA-C) Assessment & Plan TACHY CECILY SYNDROME Presented with symptomatic bradycardia, diltiazem and atenolol held, developed tachycardia, meds titrated by cardiology, now on Cardizem 240 mg daily, Toprol XL 100 mg BID S/p permanent pacemaker 06/14/17 (POD#1), f/u with device clinic as outpatient Cardiac markers negative x 3 Echo- "The left ventricle is normal in size. There is mild concentric left ventricular hypertrophy.No regional wall motion abnormalities noted. Ejection Fraction = 60-65%.The left atrium is severely dilated. The right atrium is moderately dilated. Aortic valve sclerosis moderate, without significant aortic valvular stenosis. Trace aortic regurgitation. There is moderate mitral regurgitation. There is mild tricuspid regurgitation. Right ventricular systolic pressure is moderately elevated at 40-50mmHg." ATRIAL FIBRILLATION On Cardizem and Toprol XL Coumadin held for pacemaker, will be resumed without bridge, monitor INR DIZZINESS- resolved Likely secondary to symptomatic bradycardia HTN Continue lisinopril On Cardizem and Toprol XL BP controlled, continue to monitor ANEMIA Hg in 12's, runs between 10's-13's as outpatient Monitor DM TYPE II On sitagliptin Monitor BSG AC HS BSG's remain in low 100's Add insulin sliding scale if BSG's become elevated CHRONIC DIASTOLIC CHF On admission (06/12), CXR showed mild pulmonary vascular congestion without overt edema, BNP was elevated (~3200), however admitting physician noted patient appeared euvolemic Received dose of Lasix 40mg IV on 06/12 evening as ordered by procedures rn, ? may have been for suspected volume overload- however I do not see any documentation of this Repeat CXR today- slight progression of the mild interstitial pulmonary edema Appears compensated clinically- lungs CTA, no edema, weight stable Continue home dose PO Lasix 20 mg PRN weight gain/ fluid accumulation CKD STAGE II Creat is 1.0, stable from baseline Monitor renal function DYSLIPIDEMIA Continue statin DVT PROPHYLAXIS Coumadin and Lovenox held due to procedure, SCD's were utilized Resume Coumadin CODE STATUS Full code per admitting provider's documentation DISPOSITION Telemetry Follows with Dr. Manriquez for primary care Lives with , daughter Grace involved with care, patient cleared for d/c by cardiology but not safe for DC home as per OT, will get case management involved for discharge planning, PT eval ordered Patient seen in collaboration with Dr. Pat. Please see her addendum. Consultants: Cardiology Procedures: Permanent pacemaker Current Inpatient Medications: Current Inpatient Medications Medications (Trade) Dose Ordered Sig/Hetal Route Start Time Stop Time Status Last Admin Dose Admin Enoxaparin Sodium (Lovenox Inj) 40 mg Q24H SC 06/12/17 22:00 07/12/17 21:59 Future Hold 06/12/17 22:30 40 MG Acetaminophen (Tylenol Tab) 650 mg Q4H PRN PO 06/12/17 20:30 07/12/17 20:29 Ondansetron HCl (Zofran Inj) 4 mg Q6H PRN IV 06/12/17 20:30 07/12/17 20:29 Polyethylene (Miralax Powder Packet) 17 gm DAILY PRN PO 06/12/17 20:30 07/12/17 20:29 Budesonide/ Formoterol Fumarate (Symbicort 160/ 4.5 Inh) 2 puffs BID INH 06/12/17 21:00 07/12/17 20:59 06/15/17 07:46 2 PUFFS Furosemide (Lasix Tab) 20 mg DAILY PRN PO 06/12/17 20:45 07/12/17 20:44 Albuterol/ Ipratropium (Duoneb) 3 ml Q4R INH 06/13/17 00:00 07/13/17 00:00 06/15/17 16:13 3 ML Levothyroxine Sodium (Synthroid Tab) 125 mcg DAILYBB PO 06/13/17 06:00 07/13/17 05:59 06/15/17 06:41 125 MCG Lisinopril (Zestril Tab) 40 mg DAILY PO 06/13/17 09:00 07/13/17 08:59 06/15/17 07:43 40 MG Magnesium Oxide (Mag-Ox Tab) 400 mg BID PO 06/12/17 21:00 07/12/17 20:59 06/15/17 07:43 400 MG Pantoprazole Sodium (Protonix Tab) 40 mg DAILY PO 06/13/17 09:00 07/13/17 08:59 06/15/17 07:42 40 MG Sitagliptin Phosphate (Januvia Tab) 50 mg DAILY PO 06/13/17 09:00 07/13/17 08:59 06/15/17 07:43 50 MG Triamcinolone Acetonide (Nasacort Allergy 24hr) 2 sprays DAILY [place] 06/13/17 09:00 07/13/17 08:59 06/15/17 07:46 2 SPRAYS Albuterol/ Ipratropium (Duoneb) 3 ml Q2H PRN INH 06/12/17 22:00 07/12/17 21:59 Acetaminophen/ Codeine Phosphate (Tylenol w/ Codeine #3 Tab) 1 tab for pain scale 4-6 2 t... Q4H PRN PO 06/14/17 13:45 07/14/17 13:44 06/15/17 07:45 1 TAB Diltiazem HCl (Cardizem Cd Cap) 120 mg DAILY PO 06/14/17 18:00 07/14/17 17:59 06/15/17 07:43 120 MG Metoprolol Succinate (Toprol Xl Tab) 100 mg BID PO 06/15/17 09:00 07/15/17 08:59 06/15/17 07:43 100 MG (Abbey Bustillo PA-C) Mrs. May received her pacemaker yesterday and is doing well post-operatively. Her HR went into the 140s last night and Toprol was increased and diltiazem was added back and later increased by Cardiology today. However, she is feeling weak so PT and OT were asked to evaluate and feel she is more appropriate for short-term rehab. So where we were planning discharge today, she will need to stay for placement purposes. Her coumadin will be restarted today without bridge. Of note, where she appeared to have acute on chronic diastolic failure which was treated shortly after admission with diuretics, she now appears compensated. DO Bi (Gloria Pat, )
[2017-06-15] MEDS: WARFARIN SOD 5 MG TAB PO SCH (19:38)
[2017-06-16] VITALS (17 sets, daily range): BP systolic 112–136; BP diastolic 67–75; PULSE 60–87; TEMP 36.8–37.4; O2SAT 91–98
[2017-06-16] MEDS: ALBUT/IPRATROP 3MG/0.5MG NEB 3 ML VIAL INH SCH ×6 (03:14→23:14)
[2017-06-16] MEDS: LEVOTHYROXINE 125 MCG TAB PO SCH (05:35)
[2017-06-16] MEDS ORDERED: COUGH DROP (SUGAR FREE) LOZ 24 LOZ/1 BOX ONE (05:38)
[2017-06-16] MEDS ORDERED: NURSING DECISION MEDICATION ORDER SCH (05:45)
[2017-06-16] MEDS ORDERED: COUGH DROP (SUGAR FREE) LOZ 24 LOZ/1 BOX PO PRN (06:15)
[2017-06-16 06:57] LABS: HEMATOCRIT 35.5 % (37-47); MEAN CELL VOLUME 84.7 fL (80-100); MEAN CORPUSCULAR HEMOGLOBIN 27.4 pg (25-34); MEAN CORPUSCULAR HGB CONC 32.4 g/dl (32-36); MEAN PLATELET VOLUME 10.1 fL (7.4-10.4); PLATELET COUNT 242 K/uL (130-400); RED BLOOD COUNT 4.19 M/uL (4.2-5.4); WHITE BLOOD COUNT 14.83 K/uL (4.8-10.8)
[2017-06-16 07:29] LABS: INR 1.4 (0.9-1.1); PROTHROMBIN TIME (PATIENT) 15.2 SECONDS (9.0-12.0)
[2017-06-16] MEDS: BUDESONIDE/FORMOTEROL FUMARATE 160/4.5 60 PUFFS/INHALER INH SCH ×2 (07:39→20:39)
[2017-06-16] MEDS: TRIAMCINOLONE ACET NASAL SPRAY 10.8ML BTL NAE SCH (07:40)
[2017-06-16] MEDS: LISINOPRIL 40 MG TAB PO SCH (07:40)
[2017-06-16] MEDS: PANTOprazole SOD 40 MG TAB PO SCH (07:40)
[2017-06-16] MEDS: METOPROLOL SUCC 50MG EXT REL TAB PO SCH ×2 (07:40→20:40)
[2017-06-16] MEDS: SITAGLIPTIN 25 MG TAB PO SCH (07:41)
[2017-06-16] MEDS: MAGNESIUM OXIDE 400 MG TAB PO SCH ×2 (07:41→20:39)
[2017-06-16] MEDS: DILTIAZEM HCL 240 MG CAPCR PO SCH (07:42)
--- NOTE | 2017-06-16 10:14 | Cardiology Follow-Up ---
Subjective Subjective Date of Service: Jun 16, 2017. Pt evaluation today including: conversation w/ patient, physical exam, chart review, lab review, review of studies, review of inpatient medication list Additional Details: Pt seen and examined, states that she feels well. Breathing improved and not on O2 currently. Denies cp, sob, palpitations, lightheadedness or dizziness. Discharge cancelled due to OT eval and recommendations. Tele reviewed: sinus rhythm with occasional pacing Problem List Medical Problems: (1) Atrial fibrillation Status: Acute (2) Bradycardia Status: Acute (3) CHF (congestive heart failure) Status: Acute (4) Left ankle pain Status: Acute (5) Lightheadedness Status: Acute Review of Systems ENT: No see HPI, No hearing loss, No unusual epistaxis, No nasal symptoms, No sore throat, No tinnitus, No dental problems, No trouble swallowing, No problem reported Respiratory: + cough, + wheezing, No see HPI, No sputum, No shortness of breath , No dyspnea on exertion, No dyspnea at rest, No hemoptysis, No problem reported Cardiac: + orthopnea Objective Vital Signs Last Vital Signs Documentation Date Time Temp Pulse Resp B/P (MAP) Pulse Ox O2 Delivery O2 Flow Rate FiO2 06/16/17 08:00 Room Air 06/16/17 07:42 37.4 73 20 126/67 (86) 96 2.0 Physical Exam: General Appearance: WD/WN, no apparent distress Eyes: bilateral eyes normal inspection, bilateral eyes PERRL, bilateral eyes EOMI ENT: normal ENT inspection, hearing grossly normal, pharynx normal Neck: supple, no adenopathy, thyroid normal, no JVD, no carotid bruits, trachea midline Respiratory/Chest: chest non-tender, lungs clear, normal breath sounds, no respiratory distress, no accessory muscle use Cardiovascular: no edema, no gallop, no JVD, no murmur, + irregularly irregular Abdomen: normal bowel sounds, non tender, soft, no organomegaly, no pulsatile mass Extremities: normal inspection, no pedal edema, no calf tenderness Neurologic/Psychiatric: 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 Persistent afib rates now improved would cont current dosed of cardizem and metoprolol coumadin restarted, f/u with coumadin clinic as outpatient ok to d/c to home from cardiac standpoint f/u with me as outpatient in 1 month
--- NOTE | 2017-06-16 13:38 | Progress Note ---
Medicine Progress Note Date & Time of Visit: Jun 16, 2017 at 12:46. (Abbey Bustillo PA-C) Subjective Patient reports feeling well this morning. Pain at incision area is improved. Denies dizziness, chest pain, palpitations, SOB, N/V, bowel or bladder issues. She is eating normally. Has been ambulating with walker. (Abbey Bustillo PA-C) Objective Last 8 Hrs Date Time Temp Pulse Resp B/P (MAP) Pulse Ox O2 Delivery O2 Flow Rate FiO2 06/16/17 12:00 Room Air 06/16/17 11:57 37.0 84 18 121/67 (85) 94 Room Air 06/16/17 11:04 84 16 94 Nasal Cannula 2.0 06/16/17 08:00 Room Air 06/16/17 07:42 37.4 73 20 126/67 (86) 96 Nasal Cannula 2.0 06/16/17 07:20 83 18 92 Room Air Physical Exam: General-pleasant obese elderly female, lying in bed, no distress Eyes-anicteric ENT-hearing intact Neck-trachea midline Lungs-CTA, no wheezing, rhonchi, or crackles, no respiratory distress Heart- irregularly irregular, no murmur Chest- pacemaker site without any drainage or erythema Abdomen-soft, nontender, normal bowel sounds Extremities- no edema, no calf tenderness Neuro-alert and oriented x 3, affect normal, grossly nonfocal Laboratory Results: Last 24 Hours Test 06/15/17 16:26 06/15/17 19:41 06/16/17 06:25 06/16/17 06:33 Bedside Glucose 128 mg/dl 173 mg/dl 129 mg/dl White Blood Count 14.83 K/uL Red Blood Count 4.19 M/uL Hemoglobin 11.5 g/dL Hematocrit 35.5 % Mean Corpuscular Volume 84.7 fL Mean Corpuscular Hemoglobin 27.4 pg Mean Corpuscular Hemoglobin Concent 32.4 g/dl RDW Standard Deviation 45.5 fL RDW Coefficient of Variation 14.5 % Platelet Count 242 K/uL Mean Platelet Volume 10.1 fL Prothrombin Time 15.2 SECONDS Prothromb Time International Ratio 1.4 (Abbey Bustillo PA-C) Assessment & Plan TACHY CECILY SYNDROME Presented with symptomatic bradycardia, diltiazem and atenolol held, developed tachycardia, meds titrated by cardiology, now on Cardizem 240 mg daily, Toprol XL 100 mg BID S/p permanent pacemaker 06/14/17 (POD#2), f/u with device clinic as outpatient Cardiac markers negative x 3 Echo- "The left ventricle is normal in size. There is mild concentric left ventricular hypertrophy.No regional wall motion abnormalities noted. Ejection Fraction = 60-65%.The left atrium is severely dilated. The right atrium is moderately dilated. Aortic valve sclerosis moderate, without significant aortic valvular stenosis. Trace aortic regurgitation. There is moderate mitral regurgitation. There is mild tricuspid regurgitation. Right ventricular systolic pressure is moderately elevated at 40-50mmHg." HR stable on current regimen ATRIAL FIBRILLATION On Cardizem and Toprol XL, rate is now controlled Coumadin held for pacemaker, resumed 06/15 without bridge, monitor INR DIZZINESS- resolved Likely secondary to symptomatic bradycardia HTN Continue lisinopril On Cardizem and Toprol XL BP controlled, continue to monitor ANEMIA Hg in 11's-12's, stable from baseline Monitor DM TYPE II On sitagliptin Monitor BSG AC HS BSG's remain in low 100's Add insulin sliding scale if BSG's become elevated CHRONIC DIASTOLIC CHF On admission (06/12), CXR showed mild pulmonary vascular congestion without overt edema, BNP was elevated (~3200), however admitting physician noted patient appeared euvolemic Received dose of Lasix 40mg IV on 06/12 evening as ordered by assembler caterpillar spider due to suspected acute on chronic diastolic CHF Repeat CXR 06/15- slight progression of the mild interstitial pulmonary edema Currently compensated Continue home dose PO Lasix 20 mg PRN weight gain/ fluid accumulation CKD STAGE II Creat has been stable during hospitalization DYSLIPIDEMIA Continue statin DVT PROPHYLAXIS Coumadin and Lovenox held due to procedure, SCD's were utilized Coumadin resumed CODE STATUS Full code per admitting provider's documentation DISPOSITION Telemetry Follows with Dr. Manriquez for primary care Lives with , daughter Grace involved with care, patient cleared for d/c by cardiology but not safe for DC home as per OT, CM to arrange [facility] Patient seen in collaboration with Dr. Pat. Please see her addendum. Consultants: Cardiology Procedures: Permanent pacemaker Current Inpatient Medications: Current Inpatient Medications Medications (Trade) Dose Ordered Sig/Hetal Route Start Time Stop Time Status Last Admin Dose Admin Enoxaparin Sodium (Lovenox Inj) 40 mg Q24H SC 06/12/17 22:00 07/12/17 21:59 Future Hold 06/12/17 22:30 40 MG Acetaminophen (Tylenol Tab) 650 mg Q4H PRN PO 06/12/17 20:30 07/12/17 20:29 06/15/17 19:37 650 MG Ondansetron HCl (Zofran Inj) 4 mg Q6H PRN IV 06/12/17 20:30 07/12/17 20:29 Polyethylene (Miralax Powder Packet) 17 gm DAILY PRN PO 06/12/17 20:30 07/12/17 20:29 Budesonide/ Formoterol Fumarate (Symbicort 160/ 4.5 Inh) 2 puffs BID INH 06/12/17 21:00 07/12/17 20:59 06/16/17 07:39 2 PUFFS Furosemide (Lasix Tab) 20 mg DAILY PRN PO 06/12/17 20:45 07/12/17 20:44 Albuterol/ Ipratropium (Duoneb) 3 ml Q4R INH 06/13/17 00:00 07/13/17 00:00 06/16/17 11:04 3 ML Levothyroxine Sodium (Synthroid Tab) 125 mcg DAILYBB PO 06/13/17 06:00 07/13/17 05:59 06/16/17 05:35 125 MCG Lisinopril (Zestril Tab) 40 mg DAILY PO 06/13/17 09:00 07/13/17 08:59 06/16/17 07:40 40 MG Magnesium Oxide (Mag-Ox Tab) 400 mg BID PO 06/12/17 21:00 07/12/17 20:59 06/16/17 07:41 400 MG Pantoprazole Sodium (Protonix Tab) 40 mg DAILY PO 06/13/17 09:00 07/13/17 08:59 06/16/17 07:40 40 MG Sitagliptin Phosphate (Januvia Tab) 50 mg DAILY PO 06/13/17 09:00 07/13/17 08:59 06/16/17 07:41 50 MG Triamcinolone Acetonide (Nasacort Allergy 24hr) 2 sprays DAILY [place] 06/13/17 09:00 07/13/17 08:59 06/16/17 07:40 2 SPRAYS Albuterol/ Ipratropium (Duoneb) 3 ml Q2H PRN INH 06/12/17 22:00 07/12/17 21:59 Acetaminophen/ Codeine Phosphate (Tylenol w/ Codeine #3 Tab) 1 tab for pain scale 4-6 2 t... Q4H PRN PO 06/14/17 13:45 07/14/17 13:44 06/15/17 07:45 1 TAB Metoprolol Succinate (Toprol Xl Tab) 100 mg BID PO 06/15/17 09:00 07/15/17 08:59 06/16/17 07:40 100 MG Warfarin Sodium (Coumadin Tab) 5 mg SuMoTuWeThSa@1600 PO 06/15/17 17:00 07/15/17 16:59 06/15/17 19:38 5 MG Warfarin Sodium (Coumadin Tab) 2.5 mg Fr@1600 PO 06/17/17 16:00 07/17/17 15:59 Diltiazem HCl (Cardizem Cd Cap) 240 mg DAILY PO 06/16/17 09:00 07/14/17 17:59 06/16/17 07:42 240 MG Menthol (Nice Elvis) 1 elvis PRN PRN PO 06/16/17 06:15 07/16/17 06:14 (Abbey Bustillo PA-C) I have seen and examined the patient and agree with the assessment and plan as above. Consider scheduled Lasix moving forward. DO Bi (Gloria Pat, DO)
--- NOTE | 2017-06-16 14:05 | Discharge Instructions ---
Discharge Instructions Date of Service Jun 15, 2017. Admission Reason for Admission: Atrial Fibrillation, Bradycardia, Lightheadedness Discharge Discharge Diagnosis / Problem: Tachy-Wayne Syndrome, Symptomatic Bradycardia Discharge Goals Goal(s): Improve disease control, Learn about illness Activity Recommendations Activity Limitations: as noted below Do not lift the left elbow over the left shoulder for 1 month. Do not lift more than 10 pounds with the left arm for 2 weeks. . Instructions / Follow-Up Instructions / Follow-Up You were admitted for abnormal heart rate. A permanent pacemaker was placed. Your diltiazem was increased to 240 mg daily. Your atenolol was stopped. You were started on metoprolol succinate 100 mg twice per day. You may take acetaminophen with codeine 1-2 tabs every 4 hours as needed for pain in incision area. Your Coumadin has been restarted. Please follow up with Coumadin clinic. Your Lasix is being increased to 20 mg Tuesday, Tuesday, Tuesday. You are being started on potassium chloride 10 meq Tuesday, Tuesday, Tuesday. You will need labs (basic metabolic profile) in 1 week. You have an appointment with Dr. Manriquez at 11:15 am on Tuesday06/21/17. Please follow up with [facility] device clinic in 7-10 days for device and wound check. It was a pleasure taking care of you! Call if you have any questions or problems. You can reach a [facility] hospitalist on duty at [facility] 24 hours a day by calling [phone]. Take care of yourself. Abbey Bustillo PA-C [facility] Medicine Current Hospital Diet Patient's current hospital diet: AHA Diet (Heart Healthy), Diabetes Type 2 Diet Discharge Diet Recommended Diet: AHA Diet (Heart Healthy), Diabetes Type 2 Diet Procedures Procedures Performed: SINGLE CHAMBER PERMANENT PACEMAKER Pending Studies Studies pending at discharge: no Medical Emergencies . Who to Call and When: Medical Emergencies: If at any time you feel your situation is an emergency, please call 911 immediately. . Non-Emergent Contact Non-Emergency issues call your: Primary Care Provider . . "Provider Documentation" section prepared by Abbey Bustillo. . VTE Core Measure Inpt VTE Proph given/why not?: Enoxaparin (Lovenox)SQ, SCD's [place] Drug [place] Search Results: patient reviewed within database, see additional documentation Drug Monitoring Findings: [place] drug [place] queried. There was no record of the patient in the [place] drug monitoring database.
[2017-06-16] MEDS: WARFARIN SOD 5 MG TAB PO SCH (16:56)
[2017-06-17] VITALS (10 sets, daily range): BP systolic 119–173; BP diastolic 71–93; PULSE 64–94; TEMP 36.7; O2SAT 91–99
[2017-06-17] MEDS: ALBUT/IPRATROP 3MG/0.5MG NEB 3 ML VIAL INH SCH ×6 (03:46→23:04)
[2017-06-17] MEDS: LEVOTHYROXINE 125 MCG TAB PO SCH (06:03)
[2017-06-17 06:58] LABS: INR 1.6 (0.9-1.1); PROTHROMBIN TIME (PATIENT) 17.8 SECONDS (9.0-12.0)
[2017-06-17] MEDS: TRIAMCINOLONE ACET NASAL SPRAY 10.8ML BTL NAE SCH (07:24)
[2017-06-17] MEDS: BUDESONIDE/FORMOTEROL FUMARATE 160/4.5 60 PUFFS/INHALER INH SCH ×2 (07:25→20:26)
[2017-06-17] MEDS: METOPROLOL SUCC 50MG EXT REL TAB PO SCH ×2 (07:25→20:30)
[2017-06-17] MEDS: PANTOprazole SOD 40 MG TAB PO SCH (07:26)
[2017-06-17] MEDS: SITAGLIPTIN 25 MG TAB PO SCH (07:29)
[2017-06-17] MEDS: DILTIAZEM HCL 240 MG CAPCR PO SCH (07:29)
[2017-06-17] MEDS: LISINOPRIL 40 MG TAB PO SCH (07:30)
[2017-06-17] MEDS: MAGNESIUM OXIDE 400 MG TAB PO SCH ×2 (07:30→20:30)
[2017-06-17] MEDS ORDERED: FUROSEMIDE 20 MG TAB PO SCH (09:00)
[2017-06-17] MEDS ORDERED: POTASSIUM CHLORIDE 10 MEQ TABCR PO SCH (09:00)
[2017-06-17] MEDS ORDERED: POTA10CA28 PO (09:06)
[2017-06-17] MEDS ORDERED: LSX20 PO (09:06)
[2017-06-17 09:29] LABS: BASO % 0.1 %; BASO ABS # 0.01 K/uL (0-0.2); COMPLETE YES; EOS % 4.2 %; HEMATOCRIT 34.4 % (37-47); IG% 0.4 %; LYMPH % 10.1 %; LYMPH ABS # 1.29 K/uL (1.2-3.4); MEAN CELL VOLUME 85.6 fL (80-100); MEAN CORPUSCULAR HEMOGLOBIN 27.9 pg (25-34); MEAN CORPUSCULAR HGB CONC 32.6 g/dl (32-36); MONO % 11.5 %; NEUT % 73.7 %; PLATELET COUNT 257 K/uL (130-400); RED BLOOD COUNT 4.02 M/uL (4.2-5.4); WHITE BLOOD COUNT 12.74 K/uL (4.8-10.8)
[2017-06-17 10:01] LABS: BUN/CREATININE RATIO 21.5 (10-20); CALCIUM 8.8 mg/dl (8.5-10.1); CREATININE 1.2 mg/dl (0.60-1.20)
[2017-06-17] MEDS ORDERED: FUROSEMIDE 40 MG TAB PO ONE (11:00)
--- NOTE | 2017-06-17 11:44 | DIAGNOSTIC IMAGING REPORT ---
CHEST ONE VIEW PORTABLE CLINICAL HISTORY: Congestive heart failure. COMPARISON STUDY: Chest radiograph June 15, 2017. FINDINGS: A single lead left pacemaker is in place. No pneumothorax or pleural effusion is identified. Cardiomegaly is unchanged. Interstitial thickening has slightly improved. There is no evidence for overt pulmonary edema on this exam. No consolidation is identified. IMPRESSION: 1. Interval resolution of pulmonary edema. 2. Stable cardiomegaly. Electronically signed by: Orlando Posada M.D. 06/17/2017 11:43 AM Dictated Date/Time: 06/17/2017 11:41 AM
--- NOTE | 2017-06-17 14:44 | Progress Note ---
Medicine Progress Note Date & Time of Visit: Jun 17, 2017 at 10:26. (Abbey Bustillo PA-C) Subjective Pain at pacemaker site is controlled. Denies dizziness, CP, palpitations, SOB, N /V. Eating normally. Voiding and passing BM's normally. Ambulating with walker. Wearing her usual home O2 (2 liters NC at rest and PRN during the day) and has been saturating well. States she is using the O2 because she felt she needed it , although denies SOB. (Abbey Bustillo PA-C) Objective Last 8 Hrs Date Time Temp Pulse Resp B/P (MAP) Pulse Ox O2 Delivery O2 Flow Rate FiO2 06/17/17 08:00 96 Nasal Cannula 2.0 06/17/17 07:23 36.7 78 18 151/79 (103) 96 Nasal Cannula 2.0 06/17/17 07:03 64 18 98 Nasal Cannula 2.0 06/17/17 03:46 64 18 98 Nasal Cannula 2.0 Physical Exam: General-pleasant obese elderly female, lying in bed, no distress Eyes-anicteric ENT-hearing intact Neck-trachea midline Lungs-CTA, mild crackles bilateral bases, no wheezing or rhonchi, no respiratory distress Heart- irregularly irregular, no murmur Chest- pacemaker site healing without any drainage or erythema Abdomen-soft, nontender, normal bowel sounds Extremities- no edema, no calf tenderness Neuro-alert and oriented x 3, affect normal, grossly nonfocal Laboratory Results: Last 24 Hours Test 06/16/17 11:13 06/16/17 19:45 06/17/17 06:22 06/17/17 07:38 Bedside Glucose 161 mg/dl 137 mg/dl 128 mg/dl Prothrombin Time 17.8 SECONDS Prothromb Time International Ratio 1.6 Test 06/17/17 09:00 White Blood Count 12.74 K/uL Red Blood Count 4.02 M/uL Hemoglobin 11.2 g/dL Hematocrit 34.4 % Mean Corpuscular Volume 85.6 fL Mean Corpuscular Hemoglobin 27.9 pg Mean Corpuscular Hemoglobin Concent 32.6 g/dl Platelet Count 257 K/uL Mean Platelet Volume 10.0 fL Neutrophils (%) (Auto) 73.7 % Lymphocytes (%) (Auto) 10.1 % Monocytes (%) (Auto) 11.5 % Eosinophils (%) (Auto) 4.2 % Basophils (%) (Auto) 0.1 % Neutrophils # (Auto) 9.39 K/uL Lymphocytes # (Auto) 1.29 K/uL Monocytes # (Auto) 1.46 K/uL Eosinophils # (Auto) 0.54 K/uL Basophils # (Auto) 0.01 K/uL RDW Standard Deviation 46.1 fL RDW Coefficient of Variation 14.7 % Immature Granulocyte % (Auto) 0.4 % Immature Granulocyte # (Auto) 0.05 K/uL Sodium Level 135 mmol/L Potassium Level 4.0 mmol/L Chloride Level 100 mmol/L Carbon Dioxide Level 31 mmol/L Anion Gap 4.0 mmol/L Blood Urea Nitrogen 26 mg/dl Creatinine 1.20 mg/dl Est Creatinine Clear Calc Drug Dose 37.3 ml/min Estimated GFR () 48.7 Estimated GFR (Non- 42.1 BUN/Creatinine Ratio 21.5 Random Glucose 158 mg/dl Calcium Level 8.8 mg/dl (Abbey Bustillo PA-C) Assessment & Plan ACUTE ON CHRONIC DIASTOLIC CHF On 06/12 CXR showed mild pulmonary vascular congestion without overt edema, BNP elevated (~3200), received dose of Lasix 40mg IV on 06/12 evening Echo 06/13- "The left ventricle is normal in size. There is mild concentric left ventricular hypertrophy.No regional wall motion abnormalities noted. Ejection Fraction = 60-65%.The left atrium is severely dilated. The right atrium is moderately dilated. Aortic valve sclerosis moderate, without significant aortic valvular stenosis. Trace aortic regurgitation. There is moderate mitral regurgitation. There is mild tricuspid regurgitation. Right ventricular systolic pressure is moderately elevated at 40- 50mmHg." Repeat CXR 06/15- slight progression of the mild interstitial pulmonary edema Was improved clinically, however today in acute diastolic CHF- felt she needed her PRN O2, crackles heard on exam Lasix increased from 20 mg PRN to 40 mg daily, monitor BMP, strict I/O's- RN notified, daily standing weight CXR today- 1. Interval resolution of pulmonary edema. 2. Stable cardiomegaly. TACHY CCEILY SYNDROME Presented with symptomatic bradycardia, diltiazem and atenolol held, developed tachycardia, meds titrated by cardiology, now on Cardizem 240 mg daily, Toprol XL 100 mg BID S/p permanent pacemaker 06/14/17 (POD#3), site healing well, f/u with device clinic as outpatient HR stable on current regimen ATRIAL FIBRILLATION On Cardizem and Toprol XL, rate is now controlled Coumadin held for pacemaker, resumed 06/15 without bridge, monitor INR DIZZINESS- resolved Likely secondary to symptomatic bradycardia HTN Continue lisinopril On Cardizem and Toprol XL BP controlled, continue to monitor ANEMIA Hg in 11's-12's, stable from baseline Monitor DM TYPE II On sitagliptin Monitor BSG AC HS BSG's remain in 100's Add insulin sliding scale if BSG's become elevated CKD STAGE II Creat has been stable during hospitalization DYSLIPIDEMIA Continue statin DVT PROPHYLAXIS Coumadin and Lovenox held due to procedure, SCD's were utilized Coumadin resumed CODE STATUS Full code per admitting provider's documentation DISPOSITION Telemetry Follows with Dr. Manriquez for primary care Lives with , daughter Grace involved with care, patient will be d/c to [facility], bed is available but d/c held for acute CHF Patient seen in collaboration with Dr. Pat. Please see her addendum. Consultants: Cardiology Procedures: Permanent pacemaker Current Inpatient Medications: Current Inpatient Medications Medications (Trade) Dose Ordered Sig/Hetal Route Start Time Stop Time Status Last Admin Dose Admin Enoxaparin Sodium (Lovenox Inj) 40 mg Q24H SC 06/12/17 22:00 07/12/17 21:59 Future Hold 06/12/17 22:30 40 MG Acetaminophen (Tylenol Tab) 650 mg Q4H PRN PO 06/12/17 20:30 07/12/17 20:29 06/15/17 19:37 650 MG Ondansetron HCl (Zofran Inj) 4 mg Q6H PRN IV 06/12/17 20:30 07/12/17 20:29 Polyethylene (Miralax Powder Packet) 17 gm DAILY PRN PO 06/12/17 20:30 07/12/17 20:29 Budesonide/ Formoterol Fumarate (Symbicort 160/ 4.5 Inh) 2 puffs BID INH 06/12/17 21:00 07/12/17 20:59 06/17/17 07:25 2 PUFFS Furosemide (Lasix Tab) 20 mg DAILY PRN PO 06/12/17 20:45 07/12/17 20:44 Albuterol/ Ipratropium (Duoneb) 3 ml Q4R INH 06/13/17 00:00 07/13/17 00:00 06/17/17 07:03 3 ML Levothyroxine Sodium (Synthroid Tab) 125 mcg DAILYBB PO 06/13/17 06:00 07/13/17 05:59 06/17/17 06:03 125 MCG Lisinopril (Zestril Tab) 40 mg DAILY PO 06/13/17 09:00 07/13/17 08:59 06/17/17 07:30 40 MG Magnesium Oxide (Mag-Ox Tab) 400 mg BID PO 06/12/17 21:00 07/12/17 20:59 06/17/17 07:30 400 MG Pantoprazole Sodium (Protonix Tab) 40 mg DAILY PO 06/13/17 09:00 07/13/17 08:59 06/17/17 07:26 40 MG Sitagliptin Phosphate (Januvia Tab) 50 mg DAILY PO 06/13/17 09:00 07/13/17 08:59 06/17/17 07:29 50 MG Triamcinolone Acetonide (Nasacort Allergy 24hr) 2 sprays DAILY [place] 06/13/17 09:00 07/13/17 08:59 06/17/17 07:24 2 SPRAYS Albuterol/ Ipratropium (Duoneb) 3 ml Q2H PRN INH 06/12/17 22:00 07/12/17 21:59 Acetaminophen/ Codeine Phosphate (Tylenol w/ Codeine #3 Tab) 1 tab for pain scale 4-6 2 t... Q4H PRN PO 06/14/17 13:45 07/14/17 13:44 06/15/17 07:45 1 TAB Metoprolol Succinate (Toprol Xl Tab) 100 mg BID PO 06/15/17 09:00 07/15/17 08:59 06/17/17 07:25 100 MG Warfarin Sodium (Coumadin Tab) 5 mg SuMoTuWeThSa@1600 PO 06/15/17 17:00 07/15/17 16:59 06/16/17 16:56 5 MG Warfarin Sodium (Coumadin Tab) 2.5 mg Fr@1600 PO 06/17/17 16:00 07/17/17 15:59 Diltiazem HCl (Cardizem Cd Cap) 240 mg DAILY PO 06/16/17 09:00 07/14/17 17:59 06/17/17 07:29 240 MG Menthol (Nice Elvis) 1 elvis PRN PRN PO 06/16/17 06:15 07/16/17 06:14 Furosemide (Lasix Tab) 20 mg MoWeFr@0900 PO 06/17/17 09:00 07/17/17 08:59 Potassium Chloride (Klor-Con M10) 10 meq MoWeFr@0900 PO 06/17/17 09:00 07/17/17 08:59 (Abbey Bustillo PA-C) I have seen and examined the patient and agree with the assessment and plan above. DO Bi (Gloria Pat DO)
[2017-06-17] MEDS ORDERED: WARFARIN SOD 2.5 MG TAB PO SCH (16:00)
[2017-06-18] VITALS (11 sets, daily range): BP systolic 122–155; BP diastolic 69–84; PULSE 59–87; TEMP 36.8–37.5; O2SAT 92–99
[2017-06-18] MEDS: ALBUT/IPRATROP 3MG/0.5MG NEB 3 ML VIAL INH SCH ×5 (02:58→19:08)
[2017-06-18] MEDS: LEVOTHYROXINE 125 MCG TAB PO SCH (06:40)
[2017-06-18] MEDS: BUDESONIDE/FORMOTEROL FUMARATE 160/4.5 60 PUFFS/INHALER INH SCH ×2 (07:31→20:17)
[2017-06-18] MEDS: TRIAMCINOLONE ACET NASAL SPRAY 10.8ML BTL NAE SCH (07:31)
[2017-06-18] MEDS: SITAGLIPTIN 25 MG TAB PO SCH (07:32)
[2017-06-18] MEDS: LISINOPRIL 40 MG TAB PO SCH (07:32)
[2017-06-18] MEDS: DILTIAZEM HCL 240 MG CAPCR PO SCH (07:32)
[2017-06-18] MEDS: MAGNESIUM OXIDE 400 MG TAB PO SCH ×2 (07:32→20:17)
[2017-06-18 07:44] LABS: HEMATOCRIT 36.1 % (37-47); MEAN CELL VOLUME 85.5 fL (80-100); MEAN CORPUSCULAR HEMOGLOBIN 26.5 pg (25-34); MEAN PLATELET VOLUME 10.5 fL (7.4-10.4); PLATELET COUNT 316 K/uL (130-400); RED BLOOD COUNT 4.22 M/uL (4.2-5.4); WHITE BLOOD COUNT 9.16 K/uL (4.8-10.8)
[2017-06-18] MEDS ORDERED: FUROSEMIDE 40 MG TAB PO SCH (08:00)
[2017-06-18] MEDS: METOPROLOL SUCC 50MG EXT REL TAB PO SCH ×2 (08:05→20:16)
[2017-06-18] MEDS: PANTOprazole SOD 40 MG TAB PO SCH (08:05)
[2017-06-18 08:22] LABS: BUN/CREATININE RATIO 28.5 (10-20); CALCIUM 9.1 mg/dl (8.5-10.1); CREATININE 1.2 mg/dl (0.60-1.20); POTASSIUM 3.9 mmol/L (3.5-5.1)
[2017-06-18] MEDS: WARFARIN SOD 5 MG TAB PO SCH (16:39)
--- NOTE | 2017-06-18 21:20 | Progress Note ---
Medicine Progress Note Date & Time of Visit: Jun 18, 2017 at 1000. Subjective tolerating PO afebrile improved energy today breathing improved and is off oxygen even with ambulation today she was ready to go, however, bed not available at [facility] today. Poss OK to go tomorrow. Objective Last 8 Hrs Date Time Temp Pulse Resp B/P (MAP) Pulse Ox O2 Delivery O2 Flow Rate FiO2 06/18/17 19:08 87 18 94 Room Air 06/18/17 16:00 93 Room Air 06/18/17 15:26 70 16 94 Room Air 06/18/17 14:54 36.8 59 16 127/69 (88) 96 Room Air Physical Exam: GEN: obese, in no acute distress, alert and appropriate HEENT: NC/AT, normal sclerae, MMM CARDIO: reg rate, S1/2 heard without m/g/r CHEST: PM incision site is appropriately erythematous at incision site, closed without drainage or hematoma-healing well. LUNGS: CTA bilaterally except for some mild crackles at the R base-improved from yesterday ABD: soft, non-tender, non-distended, no rebound or guarding, +BS EXTREMITY: RP and DP palpable 2+ bilat, no LE swelling or edema, extremities are warm and well-perfused NEURO: CN 2-12 grossly intact MUSC: 5/5 strength throughout, no focal deficits SKIN: warm and dry and wound above. Laboratory Results: 06/18/17 06:55 06/18/17 06:55 Test 06/12/17 17:10 06/12/17 18:15 06/13/17 10:27 06/15/17 05:45 Activated Partial Thromboplast Time 39.2 SECONDS (21.0-31.0) Partial Thromboplastin Ratio 1.5 Total Bilirubin 0.6 mg/dl (0.2-1) Aspartate Amino Transf (AST/SGOT) 20 U/L (15-37) Alanine Aminotransferase (ALT/SGPT) 22 U/L (12-78) Alkaline Phosphatase 104 U/L (45-117) Pro-B-Type Natriuretic Peptide 3210 pg/ml (0-1800) Total Protein 6.9 gm/dl (6.4-8.2) Albumin 3.4 gm/dl (3.4-5.0) Globulin 3.5 gm/dl (2.5-4.0) Albumin/Globulin Ratio 1.0 (0.9-2) Thyroid Stimulating Hormone (TSH) 2.160 uIu/ml (0.300-4.500) Free Thyroxine 1.19 ng/dl (0.80-1.60) Urine Color YELLOW Urine Appearance CLEAR (CLEAR) Urine pH 5.0 (4.5-7.5) Urine Specific [place] 1.020 (1.000-1.030) Urine Protein NEG (NEG) Urine Glucose (UA) NEG (NEG) Urine Ketones NEG (NEG) Urine Occult Blood NEG (NEG) Urine Nitrite NEG (NEG) Urine Bilirubin NEG (NEG) Urine Urobilinogen NEG (NEG) Urine Leukocyte Esterase NEG (NEG) Total Creatine Kinase 62 U/L (26-192) Creatine Kinase MB 0.5 ng/ml (0.5-3.6) Creatine Kinase MB Ratio 0.8 (0-3.0) Troponin I < 0.015 ng/ml (0-0.045) Magnesium Level 2.2 mg/dl (1.8-2.4) Test 06/17/17 06:22 06/17/17 09:00 06/18/17 06:55 06/18/17 16:52 Prothrombin Time 17.8 SECONDS (9.0-12.0) Prothromb Time International Ratio 1.6 (0.9-1.1) Immature Granulocyte % (Auto) 0.4 % White Blood Count 12.74 K/uL (4.8-10.8) Red Blood Count 4.02 M/uL (4.2-5.4) 4.22 M/uL (4.2-5.4) Hemoglobin 11.2 g/dL (12.0-16.0) Hematocrit 34.4 % (37-47) Mean Corpuscular Volume 85.6 fL (80-100) 85.5 fL (80-100) Mean Corpuscular Hemoglobin 27.9 pg (25-34) 26.5 pg (25-34) Mean Corpuscular Hemoglobin Concent 32.6 g/dl (32-36) 31.0 g/dl (32-36) Platelet Count 257 K/uL (130-400) Mean Platelet Volume 10.0 fL (7.4-10.4) 10.5 fL (7.4-10.4) Neutrophils (%) (Auto) 73.7 % Lymphocytes (%) (Auto) 10.1 % Monocytes (%) (Auto) 11.5 % Eosinophils (%) (Auto) 4.2 % Basophils (%) (Auto) 0.1 % Neutrophils # (Auto) 9.39 K/uL (1.4-6.5) Lymphocytes # (Auto) 1.29 K/uL (1.2-3.4) Monocytes # (Auto) 1.46 K/uL (0.11-0.59) Eosinophils # (Auto) 0.54 K/uL (0-0.5) Basophils # (Auto) 0.01 K/uL (0-0.2) Immature Granulocyte # (Auto) 0.05 K/uL (0.00-0.02) RDW Standard Deviation 46.2 fL (36.4-46.3) RDW Coefficient of Variation 14.8 % (11.5-14.5) Anion Gap 8.0 mmol/L (3-11) Est Creatinine Clear Calc Drug Dose 36.9 ml/min Estimated GFR () 48.7 Estimated GFR (Non- 42.1 BUN/Creatinine Ratio 28.5 (10-20) Calcium Level 9.1 mg/dl (8.5-10.1) Bedside Glucose 116 mg/dl (70-90) Last 24 Hours Test 06/18/17 06:55 06/18/17 07:30 06/18/17 11:29 06/18/17 16:52 White Blood Count 9.16 K/uL Red Blood Count 4.22 M/uL Hemoglobin 11.2 g/dL Hematocrit 36.1 % Mean Corpuscular Volume 85.5 fL Mean Corpuscular Hemoglobin 26.5 pg Mean Corpuscular Hemoglobin Concent 31.0 g/dl RDW Standard Deviation 46.2 fL RDW Coefficient of Variation 14.8 % Platelet Count 316 K/uL Mean Platelet Volume 10.5 fL Sodium Level 137 mmol/L Potassium Level 3.9 mmol/L Chloride Level 100 mmol/L Carbon Dioxide Level 29 mmol/L Anion Gap 8.0 mmol/L Blood Urea Nitrogen 34 mg/dl Creatinine 1.20 mg/dl Est Creatinine Clear Calc Drug Dose 36.9 ml/min Estimated GFR () 48.7 Estimated GFR (Non- 42.1 BUN/Creatinine Ratio 28.5 Random Glucose 115 mg/dl Calcium Level 9.1 mg/dl Bedside Glucose 117 mg/dl 182 mg/dl 116 mg/dl Assessment & Plan 82 yo F 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 Did well and was awaiting rehab when she developed some acute CHF. She stayed inpatient and was diuresed with subsequent improvement. Now awaiting placement at . 1. Acute on chronic diastolic CHF-compensated. On Lasix 40mg daily and prior to arrival this was only 20mg PRN swelling. Educated her on evaluating weight gain and sodium restrictions. Will cont daily Lasix and potassium but at a lower dose of 20 which can be adjusted as outpatient. 2. Tachy pham syndrome s/p PM on 06/14. Doing well post-op; wound appears intact without drainage or evidence of infection. Cont on Cardizen 240mg PO daily, Toprol XL 100mg PO BID. F/u with clinic in one week for wound check and pacemaker check. 3. Atrial fibrillation-rate controlled with cardizem and Toprol XL. Coumadin resumed 06/15. Monitor INR 4. HTN-cont lisinopril, cardizem, toprol XL. At goal. Cont to monitor. 5. Anemia-multifactorial in setting of chronic disease and recent procedure with daily phlebotomy-stable, no indication for transfusion, cont to monitor. 6. DMII-on sitagliptin, stopp all fingersticks with very stable blood sugar. 7. CKD III-at baseline. DVT PROPHYLAXIS: coumadin CODE STATUS: Full code per admitting provider's documentation DISPOSITION: to [facility] for rehab in AM Gloria Pat DO [facility] Hospitalist. Consultants: Cardiology Procedures: Permanent pacemaker Current Inpatient Medications: Current Inpatient Medications Medications (Trade) Dose Ordered Sig/Hetal Route Start Time Stop Time Status Last Admin Dose Admin Enoxaparin Sodium (Lovenox Inj) 40 mg Q24H SC 06/12/17 22:00 07/12/17 21:59 Future Hold 06/12/17 22:30 40 MG Acetaminophen (Tylenol Tab) 650 mg Q4H PRN PO 06/12/17 20:30 07/12/17 20:29 06/15/17 19:37 650 MG Ondansetron HCl (Zofran Inj) 4 mg Q6H PRN IV 06/12/17 20:30 07/12/17 20:29 Polyethylene (Miralax Powder Packet) 17 gm DAILY PRN PO 06/12/17 20:30 07/12/17 20:29 Budesonide/ Formoterol Fumarate (Symbicort 160/ 4.5 Inh) 2 puffs BID INH 06/12/17 21:00 07/12/17 20:59 06/18/17 20:17 2 PUFFS Albuterol/ Ipratropium (Duoneb) 3 ml Q4R INH 06/13/17 00:00 07/13/17 00:00 06/18/17 19:08 3 ML Levothyroxine Sodium (Synthroid Tab) 125 mcg DAILYBB PO 06/13/17 06:00 07/13/17 05:59 06/18/17 06:40 125 MCG Lisinopril (Zestril Tab) 40 mg DAILY PO 06/13/17 09:00 07/13/17 08:59 06/18/17 07:32 40 MG Magnesium Oxide (Mag-Ox Tab) 400 mg BID PO 06/12/17 21:00 07/12/17 20:59 06/18/17 20:17 400 MG Pantoprazole Sodium (Protonix Tab) 40 mg DAILY PO 06/13/17 09:00 07/13/17 08:59 06/18/17 08:05 40 MG Sitagliptin Phosphate (Januvia Tab) 50 mg DAILY PO 06/13/17 09:00 07/13/17 08:59 06/18/17 07:32 50 MG Triamcinolone Acetonide (Nasacort Allergy 24hr) 2 sprays DAILY [place] 06/13/17 09:00 07/13/17 08:59 06/18/17 07:31 2 SPRAYS Albuterol/ Ipratropium (Duoneb) 3 ml Q2H PRN INH 06/12/17 22:00 07/12/17 21:59 Acetaminophen/ Codeine Phosphate (Tylenol w/ Codeine #3 Tab) 1 tab for pain scale 4-6 2 t... Q4H PRN PO 06/14/17 13:45 07/14/17 13:44 06/15/17 07:45 1 TAB Metoprolol Succinate (Toprol Xl Tab) 100 mg BID PO 06/15/17 09:00 07/15/17 08:59 06/18/17 20:16 100 MG Warfarin Sodium (Coumadin Tab) 5 mg SuMoTuWeThSa@1600 PO 06/15/17 17:00 07/15/17 16:59 06/18/17 16:39 5 MG Warfarin Sodium (Coumadin Tab) 2.5 mg Fr@1600 PO 06/17/17 16:00 07/17/17 15:59 06/17/17 15:48 2.5 MG Diltiazem HCl (Cardizem Cd Cap) 240 mg DAILY PO 06/16/17 09:00 07/14/17 17:59 06/18/17 07:32 240 MG Menthol (Nice Elvis) 1 elvis PRN PRN PO 06/16/17 06:15 07/16/17 06:14 Furosemide (Lasix Tab) 40 mg QAM PO 06/18/17 08:00 07/18/17 07:59 06/18/17 07:32 40 MG
[2017-06-19] MEDS: LEVOTHYROXINE 125 MCG TAB PO SCH (06:30)
[2017-06-19 07:17] VITALS: BP 162/81; PULSE 64; TEMP 36.4; O2SAT 98
[2017-06-19] MEDS ORDERED: FUROSEMIDE 20 MG TAB PO SCH (08:00)
[2017-06-19] MEDS ORDERED: POTASSIUM CHLORIDE 10 MEQ TABCR PO SCH (08:00)
[2017-06-19] MEDS: PANTOprazole SOD 40 MG TAB PO SCH (08:07)
[2017-06-19] MEDS: BUDESONIDE/FORMOTEROL FUMARATE 160/4.5 60 PUFFS/INHALER INH SCH (08:07)
[2017-06-19] MEDS: MAGNESIUM OXIDE 400 MG TAB PO SCH (08:08)
[2017-06-19] MEDS: SITAGLIPTIN 25 MG TAB PO SCH (08:08)
[2017-06-19] MEDS: METOPROLOL SUCC 50MG EXT REL TAB PO SCH (08:08)
[2017-06-19] MEDS: DILTIAZEM HCL 240 MG CAPCR PO SCH (08:09)
[2017-06-19] MEDS: LISINOPRIL 40 MG TAB PO SCH (08:09)
[2017-06-19] MEDS: TRIAMCINOLONE ACET NASAL SPRAY 10.8ML BTL NAE SCH (08:10)
[2017-06-19 08:43] VITALS: O2SAT 93
--- NOTE | 2017-06-19 11:34 | Discharge Summary ---
Discharge Summary Date of Service Jun 19, 2017. Discharge Summary Admission Date: Jun 12, 2017 at 20:25 Discharge Date: Jun 17, 2017 Discharge Disposition: Rehab Principal Diagnosis: Tachybrady Syndrome s/p PM placement Acute on chronic diastolic CHF Atrial fibrillation Hypertension Anemia DMII CKD III Procedures: Permanent pacemaker Vaccinations: None. Consultations: Cardiology Pending Studies/Follow-Up: see instructions below. Medication Reconciliation New Medications: Diltiazem Hcl Ext Rel (Tiazac) 240 Mg Capcr 240 MG PO DAILY for 30 Days, #30 CAP Metoprolol Succinate (Toprol Xl) 100 Mg Tab 1 TAB PO BID for 30 Days, #60 TAB 5 Refills Acetaminophen/Codeine (Tylenol W/Codeine #3) 300 Mg/30 Mg Tab 1-2 TAB PO Q4H PRN for INCISION PAIN, #10 TAB Furosemide (Furosemide) 20 Mg Tab 20 MG PO MoWeFr@0900 for 30 Days, #12 TAB Potassium Chloride (Micro-K Ext Rel) 10 Meq Capcr 10 MEQ PO MoWeFr@0900 for 30 Days, #12 CAP Continued Medications: Azithromycin (Zithromax) 250 Mg Tab 250 MG PO DAILY PRN for rescue pack take 2 pills on first days then 1 daily for 4 days Budesonide/Formoterol Fumarate (Symbicort 160/4.5 Inhaler ) Aero 2 PUFFS INH BID Ipratropium-Albuterol (Duoneb) 3 Ml Nebu 1 TREATMENT INH Q4H, INHA Levothyroxine Sodium (Levothyroxine Sodium) 125 Mcg Tab 125 MCG PO DAILY Lisinopril (Lisinopril) 40 Mg Tab 40 MG PO DAILY Magnesium Oxide (Mag-Ox) 400 Mg Tab 400 MG PO BID, TAB Pantoprazole (Protonix) 40 Mg Tab 40 MG PO DAILY Prednisone (Prednisone Tab) 20 Mg Tab 20 MG PO UD PRN for rescue pack take 3 tabs for 3 days,2 tabs for 3 days,1 tab for 3 days,1/2 tab for 3 days then stop Sitagliptin Phosphate (Januvia) 50 Mg Tab 50 MG PO DAILY Triamcinolone Acet (Triamcinolone Acetonide) 45 Appln/15 Gm Cr 1 APPLN TOP BID for 30 Days, #30 GM Triamcinolone Acetonide (Nasal (Nasacort Allergy 24Hr) 55 Mcg/Act Spr 2 SPRAYS [place] DAILY Warfarin Sodium (Coumadin) 5 Mg Tab 5 MG PO 6XWK, 3 Refills every day but tuesday Warfarin Sodium (Coumadin) 5 Mg Tab 2.5 MG PO daily on tuesday Discontinued Medications: Atenolol (Tenormin) 100 Mg Tab 100 MG PO BID Diltiazem Hcl Coated Beads (Diltiazem Cd) 120 Mg Cap 120 MG PO DAILY, CAP Admission Information HPI (per Admitting provider): Patient is a pleasant 82 yo female who presents to the ER today for complaints of dizziness and lightheadedness all day along with low HR. The patient reports that she recently was seen by her physician and was told she is in atrial fibrillation but her HR was in the 40's; she was advised that should her HR drop low and she becomes symptomatic, she should go the ER. She also reports having intermittent SOB for which she states she uses oxygen as needed at home. She denies any associated CP. She felt the dizziness was slightly better laying down, but worsened with sitting or standing or any activity. She denies any prior history of dizziness, but states the SOB occurs intermittently. She denies any changes to her medications recently. She states she recently was on a holter monitor but just turned it in a couple of days ago and does not have results back yet. She otherwise states she has been in her usual state of health. She denies any recent illness. Her only other active complaint is regarding her left ankle for which she is wearing a boot and following with orthopedics as an outpatient for a possible fracture after a fall she had a couple of weeks ago. Physical Exam (per Admitting): General Appearance: WD/WN, no apparent distress Head: normocephalic, atraumatic Eyes: PERRL, EOMI, sclerae normal ENT: hearing grossly normal Neck: supple, no JVD, no carotid bruits, trachea midline Respiratory/Chest: chest non-tender, lungs clear, normal breath sounds, no respiratory distress, + decreased breath sounds Cardiovascular: no edema, no gallop, no JVD, no murmur, + bradycardia, + irregularly irregular Abdomen/GI: normal bowel sounds, non tender, soft, no organomegaly Back: no CVA tenderness Extremities/Musculoskelatal: normal inspection, no calf tenderness, normal capillary refill, no pedal edema Neurologic/Psych: no motor/sensory deficits, alert, normal mood/affect, oriented x 3 Skin: normal color, warm/dry, no rash Hospital Course 82 yo F 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 Did well and was awaiting rehab when she developed some acute CHF. She stayed inpatient and was diuresed with subsequent improvement. Now awaiting placement at . 1. Acute on chronic diastolic CHF-compensated. On Lasix 40mg daily and prior to arrival this was only 20mg PRN swelling. Educated her on evaluating weight gain and sodium restrictions. Will cont daily Lasix and potassium but at a lower dose of 20 which can be adjusted as outpatient. 2. Tachy wayne syndrome s/p PM on 06/14. Doing well post-op; wound appears intact without drainage or evidence of infection. Cont on Cardizen 240mg PO daily, Toprol XL 100mg PO BID. F/u with clinic in one week for wound check and pacemaker check. 3. Atrial fibrillation-rate controlled with cardizem and Toprol XL. Coumadin resumed 06/15. Monitor INR 4. HTN-cont lisinopril, cardizem, toprol XL. At goal. Cont to monitor. 5. Anemia-multifactorial in setting of chronic disease and recent procedure with daily phlebotomy-stable, no indication for transfusion, cont to monitor. 6. DMII-on sitagliptin, stopp all fingersticks with very stable blood sugar. 7. CKD III-at baseline. On day of discharge she was afebrile and hemodynamically stable. Her breathing was stable and she was not requiring oxygen for 48 hours. She was ambulatory with assistance and mentating clearly. We discussed the post-operative restrictions including not raising her L arm above her shoulder for one month and not lifting >10 pounds with her L arm as instructed by [employer]. We discussed that she will need a followup wound check and pacer check in 7-10 days. We also discussed the adjustment in the Lasix dose and why this was occurring. She will need to take her daily weights and keep her salt intake low. She verbalized understanding with all of the above. She was discharged to rehab in stable condition with close PCP follow-up recommended. Gloria Pat DO [facility] Hospitalist. Total time spent on discharge = 60 minutes This includes examination of the patient, discharge planning, medication reconciliation, and communication with other providers. Discharge Instructions [facility] [address] [place] [address] Discharge Medical Patient Name: Tori May Unit Number: [id number] Date of : 1935 Patient Status: Admitted Inpatient Attending Doctor: Gloria Pat DO DI: Medical v4 Discharge Instructions Date of Service Jun 15, 2017. Admission Reason for Admission: Atrial Fibrillation, Bradycardia, Lightheadedness Discharge Discharge Diagnosis / Problem: Tachy-Wayne Syndrome, Symptomatic Bradycardia Discharge Goals Goal(s): Improve disease control, Learn about illness Activity Recommendations Activity Limitations: as noted below Do not lift the left elbow over the left shoulder for 1 month. Do not lift more than 10 pounds with the left arm for 2 weeks. . Instructions / Follow-Up Instructions / Follow-Up You were admitted for abnormal heart rate. A permanent pacemaker was placed. Your diltiazem was increased to 240 mg daily. Your atenolol was stopped. You were started on metoprolol succinate 100 mg twice per day. You may take acetaminophen with codeine 1-2 tabs every 4 hours as needed for pain in incision area. Your Coumadin has been restarted. Please follow up with Coumadin clinic. Your Lasix is being increased to 20 mg Tuesday, Tuesday, Tuesday. You are being started on potassium chloride 10 meq Tuesday, Tuesday, Tuesday. You will need labs (basic metabolic profile) in 1 week. You have an appointment with Dr. Manriquez at 11:15 am on Tuesday06/21/17. Please follow up with [facility] device clinic in 7-10 days for device and wound check. It was a pleasure taking care of you! Call if you have any questions or problems. You can reach a [facility] hospitalist on duty at [facility] 24 hours a day by calling [phone]. Take care of yourself. Abbey Bustillo PA-C [facility] Medicine Current Hospital Diet Patient's current hospital diet: AHA Diet (Heart Healthy), Diabetes Type 2 Diet Discharge Diet Recommended Diet: AHA Diet (Heart Healthy), Diabetes Type 2 Diet Procedures Procedures Performed: SINGLE CHAMBER PERMANENT PACEMAKER Pending Studies Studies pending at discharge: no Medical Emergencies . Who to Call and When: Medical Emergencies: If at any time you feel your situation is an emergency, please call 911 immediately. . Non-Emergent Contact Non-Emergency issues call your: Primary Care Provider . . "Provider Documentation" section prepared by Abbey Bustillo. . VTE Core Measure Inpt VTE Proph given/why not?: Enoxaparin (Lovenox)SQ, SCD's [place] Drug Monitoring Program Search Results: patient reviewed within database, see additional documentation Drug Monitoring Findings: [place] drug monitoring [place] quer[place]. There was no record of the patient in the [place] drug monitoring database. Additional Copies To Mary Manriquez D.O.
[2017-06-19 12:56] VITALS: BP 162/81; PULSE 64; TEMP 36.4; O2SAT 93
== END 2017-06-19 14:17 | DRG 258 ==
LOC: C.EDB 16:49 → C.2T 20:25 → ENRESERV 20:29 → UNDOADMIN 21:10 → C.2T 21:10 → ENRESERV 06-16 14:34 → C.4E 06-16 15:30
PROVIDERS: ADMIT Internal Medicine; ATTEND Hospitalist
PROC: 0JH605Z Insertion of Pacemaker, Single Chamber Rate Responsive into Chest Subcutaneous Tissue and Fascia, Open Approach (ICD-10-PCS; principal; 2017-06-14 12:00)
DX: I49.5 Sick sinus syndrome (principal); I50.33 Acute on chronic diastolic (congestive) heart failure; I13.0 Hypertensive heart and chronic kidney disease with heart failure and stage 1 through stage 4 chronic kidney disease, or unspecified chronic kidney disease; I48.1 Persistent atrial fibrillation; D64.9 Anemia, unspecified; J45.909 Unspecified asthma, uncomplicated; E78.5 Hyperlipidemia, unspecified; I65.29 Occlusion and stenosis of unspecified carotid artery; E11.21 Type 2 diabetes mellitus with diabetic nephropathy; Z88.0 Allergy status to penicillin; N18.2 Chronic kidney disease, stage 2 (mild); Z79.01 Long term (current) use of anticoagulants

== ENCOUNTER 2017-09-30 13:10 | Emergency (ER) | payer OTHER, MEDICARE ==
[~2017-09-30] VITALS: Ht 149.9 cm; Wt 95.0 kg
[~2017-09-30 13:10] MED LIST changes: +ACET-749 PO; -ATEN100T PO; -CARB6.5D11 OT; -DOXY100C76 PO; -FURO-85 PO; -IPRASOL34 INH; +IPRASOL4 INH; -LEVO125T4 PO; +LEVO125T5 PO; +LSX20 PO; +METO-479 PO; -NTRGSL/4 UT; +PANT1TAB3 PO; -PANT1TAB48 PO; +POTA10CA28 PO; -SNG10 PO; +TRIA1SPR4 NAE; +TRMCR515 TOP; -ZCR80 PO
[2017-09-30 13:13] VITALS: TEMP 36.9; Ht 149.9 cm; Wt 95.0 kg
[2017-09-30 13:32] VITALS: O2SAT 94
--- NOTE | 2017-09-30 13:45 | DIAGNOSTIC IMAGING REPORT ---
CHEST ONE VIEW PORTABLE CLINICAL HISTORY: Respiratory distress. Dyspnea. COMPARISON STUDY: Chest CT January 20, 2017 and chest radiograph June 17, 2017. FINDINGS: A left subclavian pacer is unchanged in position. Moderate cardiomegaly is unchanged. There is no evidence of pulmonary edema. No consolidation to suggest pneumonia is noted. Widening of right paratracheal stripe is unchanged. There is no pneumothorax or pleural effusion. IMPRESSION: 1. No acute cardiopulmonary findings. 2. Moderate cardiomegaly without radiographic evidence of pulmonary edema. Electronically signed by: Orlando Posada M.D. 09/30/2017 1:44 PM Dictated Date/Time: 09/30/2017 1:43 PM
--- NOTE | 2017-09-30 13:48 | EMERGENCY ROOM VISIT NOTE ---
History Report prepared by Sanam: Naveed Fisher Under the Supervision of: Dr. Gustavo Keyes M.D. First contact with patient: 13:13 Chief Complaint: CARDIAC ASSESSMENT Stated Complaint: HEART PROBLEMS ABD BREATHING PROBLEMS History of Present Illness The patient is a 82 year old female who presents to the Emergency Room with complaints of intermittent shortness of breath beginning four days ago. She states that she is only short of breath on exertion. She does have mild chest "pressure" that radiates to the neck. She states that she feels normal while resting. The patient states that her breathing has worsened over the week. She also complains of fatigue. She denies weakness, diarrhea, vomiting, cough, or fevers. The patient was seen by her PCP today for her symptoms, and was referred to the ED due to possible ECG changes. She picked up a prescription for Prednisone and a Zpak two days ago. She is on CPAP, and has an nebulizer to use at home as needed. The patient has a history of CHF for which she is on a diuretic. She has a pacemaker in place. She is on Coumadin. The patient had a flu-shot this year. Source of History: patient Onset: Four days ago Quality: other (shortness of breath) Timing: intermittent, worsening Modifying Factors (Worsening): exertion Associated Symptoms: + neck pain ("pressure"), + fatigue, No fevers, No chest pain, No vomiting, No diarrhea, No weakness Review of Systems See HPI for pertinent positives & negatives. A total of 10 systems reviewed and were otherwise negative. Past Medical & Surgical Medical Problems: (1) Asthma (2) Asthma exacerbation (3) Atrial fibrillation (4) CHF (congestive heart failure) (5) COPD exacerbation (6) Diabetes (7) Hypertensive urgency (8) Respiratory distress (9) Respiratory failure (10) Shoulder pain, left (11) Vomiting Surgical Problems: (1) Appendectomy (2) back surgery (3) Extraction of cataract Family History Cancer Diabetes mellitus Heart disease Hypertension Social History Smoking Status: Never Smoker Alcohol Use: none Drug Use: none Marital Status: Housing Status: lives with family Occupation Status: retired Current/Historical Medications Scheduled Budesonide/Formoterol Fumarate (Symbicort 160/4.5 Inhaler ), 2 PUFFS INH BID Diltiazem Hcl Ext Rel (Tiazac), 240 MG PO DAILY Furosemide (Lasix), 20 MG PO MWF Ipratropium-Albuterol (Duoneb), 1 TREATMENT INH Q4H Levothyroxine Sodium (Levothyroxine Sodium), 125 MCG PO DAILY Lisinopril (Lisinopril), 40 MG PO DAILY Magnesium Oxide (Mag-Ox), 400 MG PO BID Pantoprazole (Protonix), 40 MG PO DAILY Potassium Chloride (Micro-K Ext Rel), 10 MEQ PO MWF Sitagliptin Phosphate (Januvia), 50 MG PO DAILY Triamcinolone Acet (Triamcinolone Acetonide), 1 APPLN TOP BID Triamcinolone Acetonide (Nasal (Nasacort Allergy 24Hr), 2 SPRAYS [place] DAILY Warfarin Sodium (Coumadin), 5 MG PO 6XWK Warfarin Sodium (Coumadin), 2.5 MG PO daily on tuesday Scheduled PRN Azithromycin (Zithromax), 250 MG PO DAILY PRN for rescue pack Prednisone (Prednisone Tab), 20 MG PO UD PRN for rescue pack Allergies Coded Allergies: Penicillins (Verified Allergy, Intermediate, RASH, 09/30/17) RASH Physical Exam Vital Signs Date Time Temp Pulse Resp B/P (MAP) Pulse Ox O2 Delivery O2 Flow Rate FiO2 09/30/17 16:43 66 24 159/92 91 09/30/17 16:00 60 20 140/79 91 Room Air 09/30/17 15:30 61 13 148/88 91 Room Air 09/30/17 15:00 68 18 172/86 93 Room Air 09/30/17 14:30 63 19 164/89 92 09/30/17 14:00 72 22 145/108 94 Room Air 09/30/17 13:34 95 Room Air 09/30/17 13:33 67 09/30/17 13:32 94 Room Air 09/30/17 13:30 70 22 171/88 93 09/30/17 13:13 36.9 67 20 137/70 96 Room Air Physical Exam GENERAL: Patient is in no acute distress. HEENT: No acute trauma, normocephalic atraumatic, mucous membranes moist, no nasal congestion, no scleral icterus. NECK: No stridor, no adenopathy, no meningismus, trachea is midline. LUNGS: Scattered wheezes. No crackles heard. Breath sounds equal. HEART: Without murmurs gallops or rubs, regular rate and rhythm. ABDOMEN: Soft, nontender, bowel sounds positive, no hernias, no peritonitis. EXTREMITIES: No cyanosis, full range of motion of all the joints without pain or difficulty, no signs for acute trauma. Mild bilateral pedal edema. RECTAL: Brown, heme negative stool. NEUROLOGIC: Oriented x 3, no acute motor or sensory deficits, no focal weakness. SKIN: No rash, no jaundice, no diaphoresis. Medical Decision & Procedures ER Provider Diagnostic Interpretation: Radiology results as stated below per my review and radiologist interpretation: CHEST ONE VIEW PORTABLE FINDINGS: A left subclavian pacer is unchanged in position. Moderate cardiomegaly is unchanged. There is no evidence of pulmonary edema. No consolidation to suggest pneumonia is noted. Widening of right paratracheal stripe is unchanged. There is no pneumothorax or pleural effusion. IMPRESSION: 1. No acute cardiopulmonary findings. 2. Moderate cardiomegaly without radiographic evidence of pulmonary edema. Electronically signed by: Orlando Posada M.D. 09/30/2017 1:44 PM Urine dip negative for infection or blood. Laboratory Results 09/30/17 13:50 Red Blood Count 3.86, Mean Corpuscular Volume 82.6, Mean Corpuscular Hemoglobin 26.4, Mean Corpuscular Hemoglobin Concent 32.0, Mean Platelet Volume 10.0, Neutrophils (%) (Auto) 88.4, Lymphocytes (%) (Auto) 8.5, Monocytes (%) (Auto) 2.7, Eosinophils (%) (Auto) 0.0, Basophils (%) (Auto) 0.1, Neutrophils # (Auto) 6.45, Lymphocytes # (Auto) 0.62, Monocytes # (Auto) 0.20, Eosinophils # (Auto) 0.00, Basophils # (Auto) 0.01 09/30/17 13:50 Test 09/30/17 13:42 09/30/17 13:50 Influenza Type A Antigen Neg for Influ A (NEG) Influenza Type B Antigen Neg for Influ B (NEG) White Blood Count 7.30 K/uL (4.8-10.8) Red Blood Count 3.86 M/uL (4.2-5.4) Hemoglobin 10.2 g/dL (12.0-16.0) Hematocrit 31.9 % (37-47) Mean Corpuscular Volume 82.6 fL (80-100) Mean Corpuscular Hemoglobin 26.4 pg (25-34) Mean Corpuscular Hemoglobin Concent 32.0 g/dl (32-36) Platelet Count 283 K/uL (130-400) Mean Platelet Volume 10.0 fL (7.4-10.4) Neutrophils (%) (Auto) 88.4 % Lymphocytes (%) (Auto) 8.5 % Monocytes (%) (Auto) 2.7 % Eosinophils (%) (Auto) 0.0 % Basophils (%) (Auto) 0.1 % Neutrophils # (Auto) 6.45 K/uL (1.4-6.5) Lymphocytes # (Auto) 0.62 K/uL (1.2-3.4) Monocytes # (Auto) 0.20 K/uL (0.11-0.59) Eosinophils # (Auto) 0.00 K/uL (0-0.5) Basophils # (Auto) 0.01 K/uL (0-0.2) RDW Standard Deviation 48.8 fL (36.4-46.3) RDW Coefficient of Variation 16.1 % (11.5-14.5) Immature Granulocyte % (Auto) 0.3 % Immature Granulocyte # (Auto) 0.02 K/uL (0.00-0.02) Prothrombin Time 35.8 SECONDS (9.0-12.0) Prothromb Time International Ratio 3.5 (0.9-1.1) Activated Partial Thromboplast Time 32.6 SECONDS (21.0-31.0) Partial Thromboplastin Ratio 1.3 Anion Gap 7.0 mmol/L (3-11) Est Creatinine Clear Calc Drug Dose 31.7 ml/min Estimated GFR () 41.2 Estimated GFR (Non- 35.5 BUN/Creatinine Ratio 26.1 (10-20) Calcium Level 9.1 mg/dl (8.5-10.1) Magnesium Level 2.5 mg/dl (1.8-2.4) Total Bilirubin 0.6 mg/dl (0.2-1) Aspartate Amino Transf (AST/SGOT) 14 U/L (15-37) Alanine Aminotransferase (ALT/SGPT) 24 U/L (12-78) Alkaline Phosphatase 90 U/L (45-117) Troponin I < 0.015 ng/ml (0-0.045) Pro-B-Type Natriuretic Peptide 4278 pg/ml (0-1800) Total Protein 6.8 gm/dl (6.4-8.2) Albumin 3.9 gm/dl (3.4-5.0) Globulin 2.9 gm/dl (2.5-4.0) Albumin/Globulin Ratio 1.3 (0.9-2) Laboratory results reviewed by me. Medications Administered Medications (Trade) Dose Ordered Sig/Hetal Route Start Time Stop Time Status Last Admin Dose Admin Furosemide (Lasix Inj) 40 mg NOW STAT IV 09/30/17 14:57 09/30/17 14:58 DC 09/30/17 15:10 40 MG ECG Indication: SOB/dyspnea Rate (beats per minute): 68 Rhythm: other (Ventricular paced) Findings: no acute ischemic change, no ectopy Change: Pre-hospital ECG from PCP office shows intermittent ventricular pacing with a rate of 63 bpm. [place] beats are noted. Inverted T-waves in the [place] beats. ED Course 1316: The patient was evaluated in room B4B. A complete history and physical exam was performed. 1434: I reassessed the patient. She is feeling better. 1457: Ordered Lasix Inj 40 mg IV. 1608: The patient urinated about 1 L of fluid. 1617: The patient does not feel short of breath with walking. Her lowest oxygen saturation was 89%. 1622: Reevaluated the patient. Discussed results and discharge instructions: she verbalized understanding and agreement. The patient is ready for discharge. Medical Decision The patient is a 82 year old female who presents to the ED with complaints of shortness of breath. Differential diagnoses considered include pneumonia, bronchitis, CHF, [place], anemia, electrolyte imbalance, influenza and dehydration. There is no leukocytosis. The patient is slightly anemic, she has a history of this. I did perform a rectal exam, stool was heme negative. There is no significant electrolyte abnormality, kidney failure or hepatitis. INR is elevated consistent with her Coumadin use. Chest x-ray does not show CHF , pneumothorax or pneumonia. BNP was somewhat elevated consistent with fluid overload. EKG shows a functioning ventricular pacemaker, no acute ischemia. Cardiac enzyme testing 1 is not consistent with acute cardiac injury. Influenza testing was negative. Blood cultures are pending. The patient received a dose of IV Lasix, she diuresed about 1 L. She was walked around the ER and did not have any significant drop in her O2 saturation. She felt well, she did want to be discharged home, I felt this was reasonable. She will continue her prednisone and Zithromax. I will have her take a few days of extra Lasix to supplement her diuresis. If her breathing worsens, if she is not improving, she will return back to the ER for reassessment. It appears her dyspnea is multifactorial, she is somewhat fluid overloaded I suspect, she also appears to have a mild acute bronchitis. Medication Reconcilliation Current Medication List: was personally reviewed by me Blood Pressure Screening Patient's blood pressure: Elevated blood pressure Blood pressure disposition: Elevated BP felt to be situational Impression Primary Impression: SOB (shortness of breath) Additional Impressions: Fluid overload Anemia Scribe Attestation The scribe's documentation has been prepared under my direction and personally reviewed by me in its entirety. I confirm that the note above accurately reflects all work, treatment, procedures, and medical decision making performed by me. Departure Information Dispostion Home / Self-Care Referrals Mary Manriquez D.O. (PCP) Forms IMPORTANT VISIT INFORMATION Patient Instructions My [facility] Additional Instructions take a dose of your lasix tomorrow (Tuesday) and Tuesday and then return to your normal schedule see your doctor for a recheck next week continue the zithromax and prednisone return for fever, worsening breathing or chest pain Problem Qualifiers Additional Impressions: Fluid overload Hypervolemia type: unspecified Qualified Codes: E87.70 - Fluid overload, unspecified Anemia Anemia type: unspecified type Qualified Codes: D64.9 - Anemia, unspecified
[2017-09-30 14:21] LABS: BASO % 0.1 %; BASO ABS # 0.01 K/uL (0-0.2); COMPLETE YES; HEMATOCRIT 31.9 % (37-47); IG% 0.3 %; LYMPH % 8.5 %; LYMPH ABS # 0.62 K/uL (1.2-3.4); MEAN CELL VOLUME 82.6 fL (80-100); MEAN CORPUSCULAR HEMOGLOBIN 26.4 pg (25-34); MONO % 2.7 %; NEUT % 88.4 %; PLATELET COUNT 283 K/uL (130-400); RED BLOOD COUNT 3.86 M/uL (4.2-5.4)
[2017-09-30 14:29] LABS: INR 3.5 (0.9-1.1); PARTIAL THROMBOPLASTIN RATIO 1.3; PROTHROMBIN TIME (PATIENT) 35.8 SECONDS (9.0-12.0)
[2017-09-30] MEDS ORDERED: POTA10CA28 PO (14:39)
[2017-09-30] MEDS ORDERED: WARF5TAB7 PO (14:39)
[2017-09-30] MEDS ORDERED: FURO-85 PO (14:39)
[2017-09-30] MEDS ORDERED: DILT-115 PO (14:39)
[2017-09-30 14:40] LABS: ALT/SGPT 24 U/L (12-78); BLOOD UREA NITROGEN 36 mg/dl (7-18); BUN/CREATININE RATIO 26.1 (10-20); CALCIUM 9.1 mg/dl (8.5-10.1); CARBON DIOXIDE 27 mmol/L (21-32); CHLORIDE 103 mmol/L (98-107); CREATININE 1.38 mg/dl (0.60-1.20); GLUCOSE 152 mg/dl (70-99); MAGNESIUM 2.5 mg/dl (1.8-2.4); POTASSIUM 4.6 mmol/L (3.5-5.1); SODIUM 137 mmol/L (136-145)
[2017-09-30 14:45] LABS: ALB/GLOB RATIO 1.3 (0.9-2); ALKALINE PHOSPHATASE 90 U/L (45-117); AST/SGOT 14 U/L (15-37)
[2017-09-30] MEDS ORDERED: FUROSEMIDE 40 MG/4 ML VIAL IV STA (14:57)
[2017-09-30 16:43] VITALS: BP 159/92; PULSE 66; O2SAT 91
== END 2017-09-30 16:45 | disposition home or self-care (01) ==
LOC: C.EDB 13:10
DX: R06.02 Shortness of breath (principal); E87.70 Fluid overload, unspecified; D64.9 Anemia, unspecified; I48.91 Unspecified atrial fibrillation; I10 Essential (primary) hypertension; J44.9 Chronic obstructive pulmonary disease, unspecified; E11.9 Type 2 diabetes mellitus without complications; Z95.0 Presence of cardiac pacemaker; Z79.51 Long term (current) use of inhaled steroids; Z79.84 Long term (current) use of oral hypoglycemic drugs; Z79.01 Long term (current) use of anticoagulants; Z80.9 Family history of malignant neoplasm, unspecified; Z83.3 Family history of diabetes mellitus; Z82.49 Family history of ischemic heart disease and other diseases of the circulatory system

== ENCOUNTER 2017-10-15 11:40 | Emergency (ER) | payer OTHER, MEDICARE ==
[~2017-10-15] VITALS: Ht 149.9 cm; Wt 92.0 kg
[~2017-10-15 11:40] MED LIST changes: -ACET-749 PO; +DILT-115 PO; +FURO-85 PO; -LSX20 PO; -METO-479 PO
[2017-10-15 11:54] VITALS: TEMP 37.7; Ht 149.9 cm; Wt 92.0 kg
[2017-10-15] MEDS ORDERED: ALBUT/IPRATROP 3MG/0.5MG NEB 3 ML VIAL INH STA (12:17)
[2017-10-15 13:07] LABS: BASO % 0.2 %; BASO ABS # 0.01 K/uL (0-0.2); EOS % 2.8 %; EOS ABS # 0.18 K/uL (0-0.5); HEMATOCRIT 33.7 % (37-47); HEMOGLOBIN 10.6 g/dL (12.0-16.0); IG# 0.01 K/uL (0.00-0.02); LYMPH ABS # 0.84 K/uL (1.2-3.4); MEAN CELL VOLUME 82.8 fL (80-100); MEAN CORPUSCULAR HGB CONC 31.5 g/dl (32-36); MONO % 11.8 %; MONO ABS # 0.76 K/uL (0.11-0.59); NEUT ABS # 4.65 K/uL (1.4-6.5); PLATELET COUNT 220 K/uL (130-400); RED CELL DISTRIBUTION WIDTH CV 15.6 % (11.5-14.5); RED CELL DISTRIBUTION WIDTH SD 47.8 fL (36.4-46.3); WHITE BLOOD COUNT 6.45 K/uL (4.8-10.8)
[2017-10-15 13:16] LABS: CALCIUM 8.4 mg/dl (8.5-10.1); CREATININE 1.07 mg/dl (0.60-1.20); POTASSIUM 4.4 mmol/L (3.5-5.1)
--- NOTE | 2017-10-15 13:19 | DIAGNOSTIC IMAGING REPORT ---
CHEST 2 VIEWS ROUTINE CLINICAL HISTORY: Chest pain and cough COMPARISON STUDY: 09/30/2017 FINDINGS: The heart is mildly enlarged. There is a single chamber central venous pacemaker present. There is mild elevation of the interstitium, finding suggestive of mild portal vascular congestion. There is a trace right pleural effusion. There is no lobar consolidation. IMPRESSION: 1. Cardiomegaly and suspected mild congestive failure/fluid overload. 2. Trace right pleural effusion 3. No evidence of lobar consolidation Electronically signed by: Kenney Macdonald M.D. 10/15/2017 1:18 PM Dictated Date/Time: 10/15/2017 1:17 PM
[2017-10-15 13:20] LABS: INFLUENZA B ANTIGEN Neg for Influ B (NEG)
[2017-10-15] MEDS ORDERED: METO100T44 PO (13:32)
[2017-10-15] MEDS ORDERED: LEVO75TA PO (13:32)
[2017-10-15] MEDS ORDERED: GLC/500 PO (13:32)
[2017-10-15] MEDS ORDERED: ALBINS/ INH (13:52)
[2017-10-15] MEDS ORDERED: DOXY100C2 PO (13:52)
[2017-10-15 14:11] VITALS: BP 163/55; PULSE 71; O2SAT 96
--- NOTE | 2017-10-15 16:04 | EMERGENCY ROOM VISIT NOTE ---
History Report prepared by Sanam: Oscar North Under the Supervision of: Dr. Rafal Sprague M.D. First contact with patient: 12:04 Chief Complaint: COUGH Stated Complaint: PAIN IN CHEST,COUGHING History of Present Illness The patient is an 82 year old female who presents to the Emergency Room with complaints of a non-productive cough that began yesterday. She has a past medical history of COPD and a pacemaker in place. She was seen in the ER about a week and a half ago with similar symptoms. She was treated with Lasix and discharged home. Since yesterday, she has been experiencing this non-productive cough with some associated chest congestion and shortness of breath. She states that she has centralized chest pain that is exacerbated with coughing and breathing as well. She describes it as an ache. She denies any fevers, chills , or diaphoresis. She is not on any Steroids. Source of History: patient Onset: yesterday Position: other (Respiratory System) Symptom Intensity: moderate Quality: other (Non-productive cough) Timing: intermittent Associated Symptoms: + chest pain (centralized, worsens with cough and deep breathing), + SOB, No fevers, No chills, No diaphoresis Review of Systems See HPI for pertinent positives & negatives. A total of 10 systems reviewed and were otherwise negative. Past Medical & Surgical Medical Problems: (1) Asthma (2) Asthma exacerbation (3) Atrial fibrillation (4) CHF (congestive heart failure) (5) COPD exacerbation (6) Diabetes (7) Hypertensive urgency (8) Respiratory distress (9) Respiratory failure (10) Shoulder pain, left (11) Vomiting Surgical Problems: (1) Appendectomy (2) back surgery (3) Extraction of cataract Family History Cancer Diabetes mellitus Heart disease Hypertension Social History Smoking Status: Never Smoker Alcohol Use: none Drug Use: none Marital Status: Housing Status: lives with family Occupation Status: retired Current/Historical Medications Scheduled Diltiazem Hcl Ext Rel (Tiazac), 240 MG PO DAILY Doxycycline Hyclate (Vibramycin), 100 MG PO BID Furosemide (Lasix), 20 MG PO MWF Levothyroxine Sodium (Synthroid), 75 MCG PO DAILY Lisinopril (Lisinopril), 40 MG PO DAILY Magnesium Oxide (Mag-Ox), 400 MG PO BID Metformin Hcl (Glucophage), 500 MG PO DAILY Metoprolol Succ (Toprol Xl) (Toprol-Xl ), 100 MG PO BID Pantoprazole (Protonix), 40 MG PO DAILY Potassium Chloride (Micro-K Ext Rel), 10 MEQ PO MWF Warfarin Sodium (Coumadin), 5 MG PO 6XWK Warfarin Sodium (Coumadin), 2.5 MG PO daily on tuesday Scheduled PRN Albuterol Sulf (Proventil 0.083% 2.5MG/3ML), 2.5 MG INH Q6 PRN for SOB/Wheezing Azithromycin (Zithromax), 250 MG PO DAILY PRN for rescue pack Prednisone (Prednisone Tab), 20 MG PO UD PRN for rescue pack Allergies Coded Allergies: Penicillins (Verified Allergy, Intermediate, RASH, 09/30/17) RASH Physical Exam Vital Signs Date Time Temp Pulse Resp B/P (MAP) Pulse Ox O2 Delivery O2 Flow Rate FiO2 10/15/17 14:11 71 20 163/55 96 10/15/17 13:32 75 10/15/17 13:19 79 20 167/70 94 Room Air 10/15/17 12:06 Room Air 10/15/17 11:54 37.7 81 20 137/72 96 Room Air Physical Exam Constitutional: Vital signs reviewed. Eyes: Pupils are equal round reactive to light. Conjunctiva are noninjected. ENT: Pharynx is clear without erythema or exudate. Mucous membranes are moist. Neck supple without meningeal signs. Respiratory: Bilateral expiratory wheezing. Breath sounds are equal bilaterally. Cardiovascular: Regular rate and rhythm. No rubs or gallops. GI: Soft, nondistended and nontender. Bowel sounds are present. Musculoskeletal: Ankle edema bilaterally. No tenderness to the lower extremities. Reproducible chest wall tenderness. Integumentary: No cyanosis. Neurological: The patient is awake and alert. No focal deficits. Psychiatric: Normal affect. Medical Decision & Procedures ER Provider Diagnostic Interpretation: Radiology results as stated below per my review and the radiologist's interpretation: CHEST 2 VIEWS ROUTINE CLINICAL HISTORY: Chest pain and cough COMPARISON STUDY: 09/30/2017 FINDINGS: The heart is mildly enlarged. There is a single chamber central venous pacemaker present. There is mild elevation of the interstitium, finding suggestive of mild portal vascular congestion. There is a trace right pleural effusion. There is no lobar consolidation. IMPRESSION: 1. Cardiomegaly and suspected mild congestive failure/fluid overload. 2. Trace right pleural effusion 3. No evidence of lobar consolidation Electronically signed by: Kenney Macdonald M.D. 10/15/2017 1:18 PM Dictated Date/Time: 10/15/2017 1:17 PM Laboratory Results 10/15/17 12:40 Red Blood Count 4.07, Mean Corpuscular Volume 82.8, Mean Corpuscular Hemoglobin 26.0, Mean Corpuscular Hemoglobin Concent 31.5, Mean Platelet Volume 10.0, Neutrophils (%) (Auto) 72.0, Lymphocytes (%) (Auto) 13.0, Monocytes (%) (Auto) 11.8, Eosinophils (%) (Auto) 2.8, Basophils (%) (Auto) 0.2, Neutrophils # (Auto ) 4.65, Lymphocytes # (Auto) 0.84, Monocytes # (Auto) 0.76, Eosinophils # (Auto ) 0.18, Basophils # (Auto) 0.01 10/15/17 12:40 Test 10/15/17 12:40 10/15/17 12:46 White Blood Count 6.45 K/uL (4.8-10.8) Red Blood Count 4.07 M/uL (4.2-5.4) Hemoglobin 10.6 g/dL (12.0-16.0) Hematocrit 33.7 % (37-47) Mean Corpuscular Volume 82.8 fL (80-100) Mean Corpuscular Hemoglobin 26.0 pg (25-34) Mean Corpuscular Hemoglobin Concent 31.5 g/dl (32-36) Platelet Count 220 K/uL (130-400) Mean Platelet Volume 10.0 fL (7.4-10.4) Neutrophils (%) (Auto) 72.0 % Lymphocytes (%) (Auto) 13.0 % Monocytes (%) (Auto) 11.8 % Eosinophils (%) (Auto) 2.8 % Basophils (%) (Auto) 0.2 % Neutrophils # (Auto) 4.65 K/uL (1.4-6.5) Lymphocytes # (Auto) 0.84 K/uL (1.2-3.4) Monocytes # (Auto) 0.76 K/uL (0.11-0.59) Eosinophils # (Auto) 0.18 K/uL (0-0.5) Basophils # (Auto) 0.01 K/uL (0-0.2) RDW Standard Deviation 47.8 fL (36.4-46.3) RDW Coefficient of Variation 15.6 % (11.5-14.5) Immature Granulocyte % (Auto) 0.2 % Immature Granulocyte # (Auto) 0.01 K/uL (0.00-0.02) Prothrombin Time 21.2 SECONDS (9.0-12.0) Prothromb Time International Ratio 2.0 (0.9-1.1) Activated Partial Thromboplast Time 33.0 SECONDS (21.0-31.0) Partial Thromboplastin Ratio 1.3 Anion Gap 3.0 mmol/L (3-11) Est Creatinine Clear Calc Drug Dose 40.1 ml/min Estimated GFR () 56.0 Estimated GFR (Non- 48.3 BUN/Creatinine Ratio 18.5 (10-20) Calcium Level 8.4 mg/dl (8.5-10.1) Influenza Type A Antigen Neg for Influ A (NEG) Influenza Type B Antigen Neg for Influ B (NEG) Bedside Troponin I < 0.030 ng/ml (0-0.045) Laboratory results as reviewed by me. Medications Administered Medications (Trade) Dose Ordered Sig/Hetal Route Start Time Stop Time Status Last Admin Dose Admin Albuterol/ Ipratropium (Duoneb) 3 ml NOW STAT INH 10/15/17 12:17 10/15/17 12:18 DC 10/15/17 12:37 3 ML ECG Indication: chest pain Rate (beats per minute): 72 Rhythm: atrial fibrillation Findings: other (No ST elevations, occasional ventricular paced beats) ED Course 1204: The patient was evaluated in room C8. A complete history and physical exam was performed. 1217: Ordered DuoNeb 3 ml INH 1240: I reassessed the patient at this time. She informed me that her pacemaker was placed last year for bradycardia in the 40s. She had some palpitations earlier where it felt like her heart was racing earlier today. Nursing staff is going to interrogate her pacer. 1320: I spoke with the [employer] rep at this time. They state that the patient' s pacemaker showed no recent events and it is working properly. 1346: Upon reevaluation, the patient is feeling better. Her wheezing has resolved. She notes she has a history of CHF and takes Lasix for it. She was told to take an additional dose today. 1356: Upon reevaluation, the patient appeared to have improvement of her symptoms. I discussed chidi's findings with her. She verbalized agreement of the treatment plan. She was discharged home. Medical Decision This is an 82-year-old female who presents with cough and chest pain. Differential diagnosis includes bronchitis, pneumonia, pleurisy, CHF, COPD exacerbation. I did perform a limited focused review of portions of the patient 's old chart on the electronic medical record. The patient was seen in our ER on September 30, 2017 for shortness of breath with some chest pain. She was treated with Lasix and discharged home. I did evaluate the patient as noted above. The patient is presenting with pleuritic chest pain which is reproducible on examination. She has had a cough and cold symptoms since yesterday. She is wheezing on examination. I did treat her with a DuoNeb. IV access was established. The patient was placed on a continuous cardiac surgeon. I did order and personally review the patient's 12-lead EKG and chest x-ray as described above. She has congestive changes on chest x-ray without pneumonia. I did order and review the patient's blood work as noted in the electronic medical record. Troponin is negative. INR is 2. I did order a rapid flu test which was negative. PCR flu testing was also negative. I did reassess the patient. She has no wheezing on reexamination. She is feeling better. I did discuss the test results with the patient. She was discharged with a prescription for doxycycline and albuterol solution for her nebulizer. She will talk to her doctor about increasing her Lasix dosage. She only takes it 3 times a week. She was discharged in good condition. Medication Reconcilliation Current Medication List: was personally reviewed by me Blood Pressure Screening Patient's blood pressure: Elevated blood pressure Blood pressure disposition: Referred to PCP Impression Primary Impression: Acute bronchitis Additional Impressions: COPD exacerbation CHF exacerbation Anticoagulated on Coumadin Scribe Attestation The scribe's documentation has been prepared under my direct and personally reviewed by me in its entirety. I confirm that the note above accurately reflects all work, treatment, procedures, and medical decision making performed by me. Departure Information Dispostion Home / Self-Care Prescriptions Albuterol Sulf (PROVENTIL 0.083% 2.5MG/3ML) 2.5 Mg/3 Ml Nebu 2.5 MG INH Q6 Y for SOB/Wheezing, #30 EA Prov: Rafal Sprague M.D. 10/15/17 Doxycycline Hyclate (VIBRAMYCIN) 100 Mg Cap 100 MG PO BID for 10 Days, #20 CAP Prov: Rafal Sprague M.D. 10/15/17 Referrals Mary Manriquez D.O. (PCP) Forms HOME CARE DOCUMENTATION FORM, IMPORTANT VISIT INFORMATION Patient Instructions Bronchitis Acute, COPD - [facility], ED CHF General, [facility] Additional Instructions You have been examined and treated today on an emergency basis only. This is not a substitute for, or an effort to provide, complete comprehensive medical care. It is impossible to recognize and treat all injuries or illnesses in a single emergency department visit. It is therefore important that you follow up closely with your physician. Call as soon as possible for an appointment. Return for worsening symptoms or if you develop fever or any other concerning symptoms. Problem Qualifiers Primary Impression: Acute bronchitis Bronchitis organism: unspecified organism Qualified Codes: J20.9 - Acute bronchitis, unspecified Additional Impressions: CHF exacerbation Congestive heart failure type: unspecified Qualified Codes: I50.9 - Heart failure, unspecified
== END 2017-10-15 14:11 | disposition home or self-care (01) ==
LOC: C.EDB 11:41 → C.EDC 14:11
DX: J20.9 Acute bronchitis, unspecified (principal); J44.1 Chronic obstructive pulmonary disease with (acute) exacerbation; I50.9 Heart failure, unspecified; I48.91 Unspecified atrial fibrillation; I10 Essential (primary) hypertension; E11.9 Type 2 diabetes mellitus without complications; J45.909 Unspecified asthma, uncomplicated; Z98.49 Cataract extraction status, unspecified eye; Z98.890 Other specified postprocedural states; Z79.01 Long term (current) use of anticoagulants; Z79.84 Long term (current) use of oral hypoglycemic drugs; Z79.899 Other long term (current) drug therapy; Z88.0 Allergy status to penicillin; Z80.9 Family history of malignant neoplasm, unspecified; Z83.3 Family history of diabetes mellitus; Z82.49 Family history of ischemic heart disease and other diseases of the circulatory system

== ENCOUNTER 2017-11-25 10:19 | Emergency (ER) | payer OTHER, MEDICARE ==
[~2017-11-25 10:19] MED LIST changes: +ALBINS/ INH; +DOXY100C2 PO; +GLC/500 PO; -IPRASOL4 INH; -LEVO125T5 PO; +LEVO75TA PO; +METO100T44 PO; -SITA50TA PO; -SYMIN160 INH; -TRIA1SPR4 NAE; -TRMCR515 TOP
[2017-11-25 10:53] VITALS: TEMP 36.7
--- NOTE | 2017-11-25 11:26 | EMERGENCY ROOM VISIT NOTE ---
History Report prepared by Sanam: Jalen Sanders Under the Supervision of: Dr. Anthony Julio M.D. First contact with patient: 11:14 Chief Complaint: SHORTNESS OF BREATH Stated Complaint: TROUBLE BREATHING History of Present Illness The patient is a 82 year old female who presents to the Emergency Room with complaints of shortness of breath that began 3 days ago. She states that she has symptoms of congestive heart failure and has face tightness, neck tightness , chest tightness, and dizziness. She denies abdominal pain, back pain, urinary symptoms, and diarrhea. She is currently on 20 mg of Furosemide. Source of History: patient Onset: 3 days ago Position: other (global) Timing: constant Associated Symptoms: + neck pain (neck tightness and face tightness), + SOB , No abdominal pain, No back pain, No urinary symptoms Note: Patient reports dizziness. Review of Systems See HPI for pertinent positives & negatives. A total of 10 systems reviewed and were otherwise negative. Past Medical & Surgical Medical Problems: (1) Asthma (2) Asthma exacerbation (3) Atrial fibrillation (4) CHF (congestive heart failure) (5) COPD exacerbation (6) Diabetes (7) Hypertensive urgency (8) Respiratory distress (9) Respiratory failure (10) Shoulder pain, left (11) Vomiting Surgical Problems: (1) Appendectomy (2) back surgery (3) Extraction of cataract Family History Cancer Diabetes mellitus Heart disease Hypertension Social History Smoking Status: Never Smoker Alcohol Use: none Drug Use: none Marital Status: Housing Status: lives with family Occupation Status: retired Current/Historical Medications Scheduled Diltiazem Hcl Ext Rel (Tiazac), 240 MG PO 0900 Furosemide (Lasix), 20 MG PO MWF Levothyroxine Sodium (Synthroid), 75 MCG PO 0600 Lisinopril (Lisinopril), 40 MG PO 0900 Magnesium Oxide (Mag-Ox), 400 MG PO BID Metoprolol Succ (Toprol Xl) (Toprol-Xl ), 100 MG PO BID Pantoprazole (Protonix), 40 MG PO 0600 Potassium Chloride (Micro-K Ext Rel), 10 MEQ PO MWF Sitagliptin Phosphate (Januvia), 0 PO 0900 Warfarin Sod (Jantoven), 5 MG PO SMTWTS Warfarin Sod (Jantoven), 2.5 MG PO FRI Scheduled PRN Azithromycin (Zithromax), 250 MG PO DAILY PRN for rescue pack Prednisone (Prednisone Tab), 20 MG PO UD PRN for rescue pack Allergies Coded Allergies: Penicillins (Verified Allergy, Intermediate, RASH, 11/25/17) RASH Physical Exam Vital Signs Date Time Temp Pulse Resp B/P (MAP) Pulse Ox O2 Delivery O2 Flow Rate FiO2 11/25/17 13:23 71 20 156/77 94 11/25/17 12:48 72 11/25/17 12:28 72 20 154/78 93 Room Air 11/25/17 11:40 62 16 174/121 93 Room Air 11/25/17 11:40 93 Room Air 11/25/17 11:38 93 Room Air 11/25/17 10:53 36.7 66 20 160/98 94 Room Air Physical Exam GENERAL: Patient is tired appearing and in minimal distress. HEENT: No acute trauma, normocephalic atraumatic, mucous membranes moist, no nasal congestion, no scleral icterus. NECK: No stridor, no adenopathy, no meningismus, trachea is midline. LUNGS: Mild crackles bilateral lower lobes. No dyspnea. Clear to auscultation and equal bilaterally. No wheeze, no rhonchi. HEART: Regular rate and rhythm. No murmurs, rubs, gallops appreciated. ABDOMEN: Soft, nontender, bowel sounds positive, no masses appreciated, no peritonitis. BACK: No midline tenderness, no CVA tenderness EXTREMITIES: Normal motion all extremities, no cyanosis. Edema bilateral lower legs. NEUROLOGIC: Alert and oriented, no acute motor or sensory deficits, no focal weakness, cranial nerves grossly intact. SKIN: No rash, no jaundice, no diaphoresis. Medical Decision & Procedures ER Provider Diagnostic Interpretation: Radiology results and stated below per my review and radiologist interpretation: CHEST ONE VIEW PORTABLE CLINICAL HISTORY: SHOB dyspnea COMPARISON STUDY: 10/15/2017 FINDINGS: Mild cardiomegaly. Prominent pulmonary vasculature. Permanent unipolar cardiac pacemaker. IMPRESSION: Cardiomegaly with findings of mild congestive failure The above report was generated using voice recognition software. It may contain grammatical, syntax or spelling errors. Electronically signed by: Jian Bergeron M.D. 11/25/2017 12:15 PM Dictated Date/Time: 11/25/2017 12:14 PM Laboratory Results 11/25/17 11:37 Red Blood Count 3.60, Mean Corpuscular Volume 80.0, Mean Corpuscular Hemoglobin 26.1, Mean Corpuscular Hemoglobin Concent 32.6, Mean Platelet Volume 9.8, Neutrophils (%) (Auto) 86.3, Lymphocytes (%) (Auto) 7.9, Monocytes (%) (Auto) 5.3, Eosinophils (%) (Auto) 0.1, Basophils (%) (Auto) 0.1, Neutrophils # (Auto) 8.15, Lymphocytes # (Auto) 0.75, Monocytes # (Auto) 0.50, Eosinophils # (Auto) 0.01, Basophils # (Auto) 0.01 11/25/17 11:37 Test 11/25/17 11:37 White Blood Count 9.45 K/uL (4.8-10.8) Red Blood Count 3.60 M/uL (4.2-5.4) Hemoglobin 9.4 g/dL (12.0-16.0) Hematocrit 28.8 % (37-47) Mean Corpuscular Volume 80.0 fL (80-100) Mean Corpuscular Hemoglobin 26.1 pg (25-34) Mean Corpuscular Hemoglobin Concent 32.6 g/dl (32-36) Platelet Count 322 K/uL (130-400) Mean Platelet Volume 9.8 fL (7.4-10.4) Neutrophils (%) (Auto) 86.3 % Lymphocytes (%) (Auto) 7.9 % Monocytes (%) (Auto) 5.3 % Eosinophils (%) (Auto) 0.1 % Basophils (%) (Auto) 0.1 % Neutrophils # (Auto) 8.15 K/uL (1.4-6.5) Lymphocytes # (Auto) 0.75 K/uL (1.2-3.4) Monocytes # (Auto) 0.50 K/uL (0.11-0.59) Eosinophils # (Auto) 0.01 K/uL (0-0.5) Basophils # (Auto) 0.01 K/uL (0-0.2) RDW Standard Deviation 45.3 fL (36.4-46.3) RDW Coefficient of Variation 15.5 % (11.5-14.5) Immature Granulocyte % (Auto) 0.3 % Immature Granulocyte # (Auto) 0.03 K/uL (0.00-0.02) Anion Gap 7.0 mmol/L (3-11) Estimated GFR () 42.3 Estimated GFR (Non- 36.5 BUN/Creatinine Ratio 27.2 (10-20) Calcium Level 9.2 mg/dl (8.5-10.1) Magnesium Level 2.3 mg/dl (1.8-2.4) Troponin I < 0.015 ng/ml (0-0.045) Pro-B-Type Natriuretic Peptide 6285 pg/ml (0-1800) Laboratory results as reviewed by me. Medications Administered Medications (Trade) Dose Ordered Sig/Hetal Route Start Time Stop Time Status Last Admin Dose Admin Furosemide (Lasix Inj) 40 mg NOW STAT IV 11/25/17 12:19 11/25/17 12:20 DC 11/25/17 12:33 40 MG ECG Per My Interpretation Indication: SOB/dyspnea Rate (beats per minute): 65 Rhythm: other (ventribular paced rhythym) Findings: no acute ischemic change, no ectopy Change: EKG: Electrocardiogram per my interpretation. ED Course 1114: The patient was evaluated in room C10. A complete history and physical exam was performed. 1222: I checked on the patient and she is sleeping. She is agreeable to Lassix. 1300: I checked on the patient and she is urinating and breathing normally. She would like to go home. 1315: I reevaluated the patient. Discussed results and discharge instructions: She verbalized understanding and agreement. The patient is ready for discharge. She will follow up with her PCP. Medical Decision Differential: Infectious, Reactive Airway Disease, Pneumonia, Pneumothorax, COPD , CHF, ACS, Pulmonary Embolism, MSK, GI, Dissection, amongst other etiologies entertained. 82 yr old female arrives with worsening shortness of breath and some chest tightness over last few days. She has history CHF which has been waxing/waning over last few weeks with periodic ED visits though hasn't yet gotten chance to follow up with PCP. She is in mild failure without hypoxia nor significant respiratory distress. Previously tolerated IV Lasix and discharge which seems reasonable with plan use Lasix sat/sun and PCP follow up early next week for recheck. Discussed risks of causing renal failure. Stressed importance of PCP follow up. Reviewed symptoms requiring return but she very much wishes to get home. Stable throughout. Medication Reconcilliation Current Medication List: was personally reviewed by me Blood Pressure Screening Patient's blood pressure: Elevated blood pressure Blood pressure disposition: Elevated BP felt to be situational Impression Primary Impression: Acute congestive heart failure Scribe Attestation The scribe's documentation has been prepared under my direction and personally reviewed by me in its entirety. I confirm that the note above accurately reflects all work, treatment, procedures, and medical decision making performed by me. Departure Information Dispostion Home / Self-Care Referrals Mary Manriquez D.O. (PCP) Patient Instructions My [facility] Additional Instructions It is very important you follow with your Primary Care Provider early next week for repeat evaluation. Discuss having your kidney function rechecked. Return to Emergency Department if worsening shortness of breath, fevers, chest pain, passing out or other concerns. Take your Lasix on Tuesday and Tuesday.
[2017-11-25 11:38] VITALS: O2SAT 93
[2017-11-25 11:46] LABS: BASO % 0.1 %; BASO ABS # 0.01 K/uL (0-0.2); EOS % 0.1 %; EOS ABS # 0.01 K/uL (0-0.5); HEMATOCRIT 28.8 % (37-47); HEMOGLOBIN 9.4 g/dL (12.0-16.0); IG# 0.03 K/uL (0.00-0.02); LYMPH % 7.9 %; LYMPH ABS # 0.75 K/uL (1.2-3.4); MEAN CORPUSCULAR HEMOGLOBIN 26.1 pg (25-34); MEAN CORPUSCULAR HGB CONC 32.6 g/dl (32-36); MEAN PLATELET VOLUME 9.8 fL (7.4-10.4); MONO % 5.3 %; NEUT % 86.3 %; NEUT ABS # 8.15 K/uL (1.4-6.5); PLATELET COUNT 322 K/uL (130-400); RED CELL DISTRIBUTION WIDTH CV 15.5 % (11.5-14.5); RED CELL DISTRIBUTION WIDTH SD 45.3 fL (36.4-46.3); WHITE BLOOD COUNT 9.45 K/uL (4.8-10.8)
[2017-11-25 12:02] LABS: BLOOD UREA NITROGEN 37 mg/dl (7-18); CALCIUM 9.2 mg/dl (8.5-10.1); CARBON DIOXIDE 28 mmol/L (21-32); CREATININE 1.35 mg/dl (0.60-1.20); GLUCOSE 145 mg/dl (70-99); POTASSIUM 4.5 mmol/L (3.5-5.1); SODIUM 135 mmol/L (136-145)
--- NOTE | 2017-11-25 12:17 | DIAGNOSTIC IMAGING REPORT ---
CHEST ONE VIEW PORTABLE CLINICAL HISTORY: SHOB dyspnea COMPARISON STUDY: 10/15/2017 FINDINGS: Mild cardiomegaly. Prominent pulmonary vasculature. Permanent unipolar cardiac pacemaker. IMPRESSION: Cardiomegaly with findings of mild congestive failure The above report was generated using voice recognition software. It may contain grammatical, syntax or spelling errors. Electronically signed by: Jian Bergeron M.D. 11/25/2017 12:15 PM Dictated Date/Time: 11/25/2017 12:14 PM
[2017-11-25] MEDS ORDERED: FUROSEMIDE 40 MG/4 ML VIAL IV STA (12:19)
[2017-11-25] MEDS ORDERED: WARF2.5T8 PO (12:53)
[2017-11-25] MEDS ORDERED: WARF5TAB7 PO (12:53)
[2017-11-25] MEDS ORDERED: ERYT250T (12:53)
[2017-11-25] MEDS ORDERED: PRD/1 PO (12:53)
[2017-11-25] MEDS ORDERED: SITA25TA PO (12:53)
[2017-11-25 13:23] VITALS: BP 156/77; PULSE 71; O2SAT 94
== END 2017-11-25 13:25 | disposition home or self-care (01) ==
LOC: C.EDB 10:22 → C.EDC 13:25
DX: I50.9 Heart failure, unspecified (principal); J45.909 Unspecified asthma, uncomplicated; I48.91 Unspecified atrial fibrillation; J44.9 Chronic obstructive pulmonary disease, unspecified; E11.9 Type 2 diabetes mellitus without complications; Z98.49 Cataract extraction status, unspecified eye; Z83.3 Family history of diabetes mellitus; Z82.49 Family history of ischemic heart disease and other diseases of the circulatory system; Z79.01 Long term (current) use of anticoagulants; Z88.0 Allergy status to penicillin

== ENCOUNTER 2018-02-22 13:35 | Inpatient (IN) | payer OTHER, MEDICARE ==
[~2018-02-22] VITALS: Ht 149.9 cm; Wt 88.2 kg
[~2018-02-22 13:35] MED LIST changes: -ALBINS/ INH; -DOXY100C2 PO; -GLC/500 PO; +SITA25TA PO; +WARF2.5T8 PO; +WARF5TAB7 PO; -WARF5TAB90 PO
[2018-02-22] MEDS ORDERED: SODIUM CHLORIDE 0.9% 500ML 500 ML IV STA (13:55)
[2018-02-22] MEDS ORDERED: ASPIRIN 324 MG CHEW PO STA (13:55)
[2018-02-22] MEDS ORDERED: NITROGLYCERIN 0.4 MG SL PER TAB CHARGE SL PRN (14:00)
[2018-02-22 14:21] LABS: INR 1.2 (0.9-1.1)
[2018-02-22 14:39] LABS: BASO % 0.5 %; BASO ABS # 0.03 K/uL (0-0.2); EOS % 6.4 %; EOS ABS # 0.38 K/uL (0-0.5); HEMOGLOBIN 9.6 g/dL (12.0-16.0); IG# 0.01 K/uL (0.00-0.02); LYMPH % 29.3 %; LYMPH ABS # 1.73 K/uL (1.2-3.4); MEAN CELL VOLUME 77.7 fL (80-100); MEAN CORPUSCULAR HEMOGLOBIN 24.9 pg (25-34); MEAN PLATELET VOLUME 9.8 fL (7.4-10.4); MONO % 12.9 %; MONO ABS # 0.76 K/uL (0.11-0.59); NEUT % 50.7 %; PLATELET COUNT 289 K/uL (130-400); RED CELL DISTRIBUTION WIDTH CV 15.7 % (11.5-14.5); WHITE BLOOD COUNT 5.91 K/uL (4.8-10.8)
[2018-02-22 14:41] LABS: BLOOD UREA NITROGEN 27 mg/dl (7-18); CALCIUM 9.3 mg/dl (8.5-10.1); CARBON DIOXIDE 27 mmol/L (21-32); CKMB 1.1 ng/ml (0.5-3.6); CREATININE 1.69 mg/dl (0.60-1.20); GLUCOSE 149 mg/dl (70-99); POTASSIUM 4.5 mmol/L (3.5-5.1); SODIUM 136 mmol/L (136-145)
--- NOTE | 2018-02-22 15:26 | DIAGNOSTIC IMAGING REPORT ---
CHEST ONE VIEW PORTABLE CLINICAL HISTORY: Atypical chest pain COMPARISON STUDY: November 25, 2017 FINDINGS: The heart remains mildly enlarged. There is a left subclavian single chamber central venous pacemaker present. There is mild pulmonary vascular congestion. There is no lobar consolidation.[ There is slight splaying of the niranjan. This may indicate left atrial enlargement. IMPRESSION: Persistent cardiomegaly and radiographic evidence of mild congestive failure/fluid overload. No evidence of acute parenchymal consolidation Electronically signed by: Kenney Macdonald M.D. 02/22/2018 3:25 PM Dictated Date/Time: 02/22/2018 3:24 PM
[2018-02-22] MEDS ORDERED: SITA50TA PO (15:36)
[2018-02-22] MEDS ORDERED: FURO40TA3 PO (15:36)
[2018-02-22] MEDS ORDERED: OPTIRAY 320 IV PRN (16:00)
--- NOTE | 2018-02-22 16:53 | DIAGNOSTIC IMAGING REPORT ---
(CHEST FOR PE) ANGIO WITH CT DOSE: 543.65 mGycm HISTORY: 82 years-old Female presents with acute atypical chest pain TECHNIQUE: Multiple CTA images of the chest were obtained after the intravenous administration of 120 ml Optiray 320. Coronal and sagittal MIPS were obtained from the axial data set and were submitted for review. A dose lowering technique was utilized adhering to the principles of ALARA. COMPARISON: Chest radiograph of same day FINDINGS: CTA: Moderate multichamber cardiac enlargement without pericardial effusion. Coronary arterial calcifications are noted. Left subclavian pacer is noted with single lead overlying the right ventricle. Thoracic aorta is not well opacified, however demonstrates moderate mixed plaquing without evidence of aneurysm or dissection. The imaged great vessels appear patent. Reflux of contrast into the IVC and hepatic veins. The pulmonary arterial tree is opacified to the level of the segmental branches and demonstrates no focal filling defects to suggest pulmonary thromboembolic disease. CT CHEST: Enlarged thyroid without dominant nodule identified. No pathologically enlarged lymph nodes. Mildly prominent right hilar lymph nodes measure up to 9 mm in short axis. There is no pneumothorax or pleural effusion. Mild pulmonary vascular congestion with thickening of the bronchial head, likely congestive changes. Scattered areas of mosaic attenuation are compatible with air trapping. No significant intralobular septal thickening to suggest overt pulmonary edema. Subsegmental linear consolidative and ground glass opacities about the lung bases suggest atelectasis. No acute process of the imaged upper abdomen. Mild thickening about the left adrenal gland. Soft tissues are unremarkable. Multilevel degenerative changes about the spine. IMPRESSION: 1. No acute aortic pathology or evidence of pulmonary thromboembolic disease. 2. Cardiomegaly with mild pulmonary vascular congestion. No overt pulmonary edema. 3. Additional findings as above. The above report was generated using voice recognition software. It may contain grammatical, syntax or spelling errors. Electronically signed by: Farzad Shields M.D. 02/22/2018 4:52 PM Dictated Date/Time: 02/22/2018 4:48 PM
[2018-02-22] MEDS ORDERED: ONDANSETRON INJ 2 MG/ML 2 ML VIAL IV PRN (17:45)
--- NOTE | 2018-02-22 18:13 | History and Physical ---
History & Physical Date & Time of Service: February 22, 2018 at 18:00 Chief Complaint: Chest Pain Primary Care Physician: Mayr Manriquez D.O. History of Present Illness Source: patient She is an 82-year-old female obese with significant past medical history of A. fib status post pacemaker placement diabetes hypertension hyperlipidemia also COPD apparently has been complaining of chest pain in the precordial area on and off since this morning. Initially the pain was for very short time but later on it left persisted longer. She did not have any associated symptoms with it but according to her it is a 9. She also complained that the pain got worse on deep breathing. In the emergency room she was hemodynamically stable without any change in her EKG and her troponin and a CTA was negative for any pulmonary embolism. Given the history of diabetes hypertension heart problem and she was admitted to telemetry unit to rule out and if possible stress test in the morning. Past Medical/Surgical History Medical Problems: (1) Acute bronchitis (2) Acute congestive heart failure (3) Anemia (4) Anticoagulated on Coumadin (5) Asthma (6) Asthma exacerbation (7) Atrial fibrillation (8) Atrial fibrillation (9) Blood in left ear canal (10) Bradycardia (11) Cellulitis (12) Chest pain (13) CHF (congestive heart failure) (14) CHF (congestive heart failure) (15) CHF exacerbation (16) COPD exacerbation (17) Diabetes (18) Fluid overload (19) Hypertension (20) Hypertensive urgency (21) Left ankle pain (22) Lightheadedness (23) Respiratory distress (24) Respiratory failure (25) Shoulder pain, left (26) SOB (shortness of breath) (27) Supratherapeutic INR (28) Vomiting Surgical Problems: (1) Appendectomy (2) back surgery (3) Extraction of cataract Family History Cancer Diabetes mellitus Heart disease Hypertension Social History Smoking Status: Never Smoker Smokeless Tobacco Use: No Alcohol Use: occasionally Drug Use: none Marital Status: Housing status: lives with family Occupational Status: retired Immunizations History of Influenza Vaccine: No Influenza Vaccine Date: Jul 11, 2005 History of Tetanus Vaccine?: UTD History of Pneumococcal: Yes Pneumococcal Date: Jul 27, 2009 History of Hepatitis B Vaccine: Unknown Allergies Coded Allergies: Penicillins (Verified Allergy, Intermediate, RASH, 02/22/18) RASH Home Medications Scheduled Diltiazem Hcl Ext Rel (Tiazac), 240 MG PO QAM Furosemide (Lasix), 40 MG PO QAM Levothyroxine Sodium (Synthroid), 75 MCG PO QAM Lisinopril (Lisinopril), 40 MG PO QAM Magnesium Oxide (Mag-Ox), 400 MG PO BID Metoprolol Succ (Toprol Xl) (Toprol-Xl ), 100 MG PO BID Pantoprazole (Protonix), 40 MG PO QAM Potassium Chloride (Micro-K Ext Rel), 10 MEQ PO QAM Sitagliptin Phosphate (Januvia), 50 MG PO QAM Warfarin Sod (Jantoven), 5 MG PO [id number] Warfarin Sod (Jantoven), 2.5 MG PO WK Scheduled PRN Azithromycin (Zithromax), 250 MG PO DAILY PRN for RESCUE KIT Prednisone (Prednisone Tab), 20 MG PO UD PRN for RESCUE KIT Review of Systems Respiratory: + cough, + problem reported (Precordial tenderness) Cardiovascular: + chest pain Physical Exam Vital Signs Date Time Temp Pulse Resp B/P (MAP) Pulse Ox O2 Delivery O2 Flow Rate FiO2 02/22/18 16:47 62 18 140/69 93 Room Air 02/22/18 15:01 62 20 122/62 95 Room Air 02/22/18 14:35 62 21 95 02/22/18 14:20 61 02/22/18 14:19 98 Room Air 02/22/18 14:14 101/55 02/22/18 13:37 36.6 103 20 106/62 97 Room Air General Appearance: + mild distress Head: normocephalic Eyes: normal inspection ENT: normal ENT inspection Neck: supple Respiratory/Chest: lungs clear, normal breath sounds, + pertinent finding ( Precordial tenderness) Cardiovascular: + abnormal rhythm (Irregular) Abdomen/GI: normal bowel sounds Back: normal inspection Extremities/Musculoskelatal: normal inspection Neurologic/Psych: no motor/sensory deficits, alert, normal mood/affect, normal reflexes Skin: normal color Lymphatic: no adenopathy Diagnostics Laboratory Results Results Past 24 Hours Test 02/22/18 13:56 02/22/18 14:10 Range/Units Prothrombin Time 13.0 9.0-12.0 SECONDS Prothromb Time International Ratio 1.2 0.9-1.1 Sodium Level 136 136-145 mmol/L Potassium Level 4.5 3.5-5.1 mmol/L Chloride Level 102 98-107 mmol/L Carbon Dioxide Level 27 21-32 mmol/L Anion Gap 7.0 3-11 mmol/L Blood Urea Nitrogen 27 7-18 mg/dl Creatinine 1.69 0.60-1.20 mg/dl Est Creatinine Clear Calc Drug Dose 25.1 ml/min Estimated GFR () 32.2 Estimated GFR (Non- 27.8 BUN/Creatinine Ratio 15.7 10-20 Random Glucose 149 70-99 mg/dl Calcium Level 9.3 8.5-10.1 mg/dl Total Creatine Kinase 111 26-192 U/L Creatine Kinase MB 1.1 0.5-3.6 ng/ml Creatine Kinase MB Ratio 1.0 0-3.0 Troponin I < 0.015 0-0.045 ng/ml Chemistry Specimen Hemolysis White Blood Count 5.91 4.8-10.8 K/uL Red Blood Count 3.86 4.2-5.4 M/uL Hemoglobin 9.6 12.0-16.0 g/dL Hematocrit 30.0 37-47 % Mean Corpuscular Volume 77.7 80-100 fL Mean Corpuscular Hemoglobin 24.9 25-34 pg Mean Corpuscular Hemoglobin Concent 32.0 32-36 g/dl Platelet Count 289 130-400 K/uL Mean Platelet Volume 9.8 7.4-10.4 fL Neutrophils (%) (Auto) 50.7 % Lymphocytes (%) (Auto) 29.3 % Monocytes (%) (Auto) 12.9 % Eosinophils (%) (Auto) 6.4 % Basophils (%) (Auto) 0.5 % Neutrophils # (Auto) 3.00 1.4-6.5 K/uL Lymphocytes # (Auto) 1.73 1.2-3.4 K/uL Monocytes # (Auto) 0.76 0.11-0.59 K/uL Eosinophils # (Auto) 0.38 0-0.5 K/uL Basophils # (Auto) 0.03 0-0.2 K/uL RDW Standard Deviation 45.0 36.4-46.3 fL RDW Coefficient of Variation 15.7 11.5-14.5 % Immature Granulocyte % (Auto) 0.2 % Immature Granulocyte # (Auto) 0.01 0.00-0.02 K/uL Diagnostic Radiology CTA-No pulmonary Embolism CXR normal (Cardiomegaly.No CHF) EKG LBBB,LAD,Paced Rhythm and 74/min Impression Assessment and Plan CHEST PAIN Seems to be secondary to costochondritis Has significant cardiac Abhishek including atrial fibrillation status post pacemaker, diastolic heart failure, diabetes, hypertension and hyperlipidemia Serial cardiac enzymes and EKG chest pain Dobutamine stress echo tomorrow morning If cleared she will be going home tomorrow Atrial fibrillation status post PPM Rate is controlled Continue with current medications DIASTOLIC HEART FAILURE No acute symptoms and no CHF Will hold Lasix Chronic kidney disease with YISEL Creatinine slightly elevated We will hold Lasix and monitor PRP DIABETES TYPE 2 We will put her on sliding scale coverage with blood sugar checkup HYPERTENSION Continue current medication COPD No acute symptoms continue with current inhalers GI PROPHYLAXIS With PPI DVT PROPHYLAXIS Has been on Coumadin CODE STATUS: Full In my clinical assessment the beneficially meets criteria as per CMS for 2 midnight stay in the hospital Resuscitation Status VTE Prophylaxis Will order VTE Prophylaxis: Yes
[2018-02-22] MEDS ORDERED: IV FLUIDS COMPLETED PRN (18:15)
--- NOTE | 2018-02-22 18:33 | EMERGENCY ROOM VISIT NOTE ---
History Report prepared by Sanam: Wes Mota Under the Supervision of: Dr. Corey Johnson D.O. First contact with patient: 13:38 Chief Complaint: CHEST PAIN Stated Complaint: CHEST PAIN History of Present Illness The patient is an 82 year old female with a history of diabetes, hypertension, hyperlipidemia, CHF who presents to the Emergency Room with complaints of persistent left-sided that started yesterday. She states that the pain is near her pacemaker. The patient says that initially the pain was intermittent but it has been constant since last night. She describes the pain as sharp, and it worsens with coughing. She notes that the pain does not change with breathing. She adds that she has had a constant dry cough that started yesterday. The patient says that she currently has the chest pain. She denies any worsening shortness of breath, arm pain, or jaw pain. The patient states that she is on Coumadin and has not had any low levels recently. She states that she has no history of blood clots or heart attacks. The patient is a non-smoker. Source of History: patient, family Onset: Yesterday Position: chest (left) Quality: sharp Timing: other (persistent) Modifying Factors (Worsening): other (coughing) Associated Symptoms: + cough, No SOB Note: Denies arm pain or jaw pain. Review of Systems See HPI for pertinent positives & negatives. A total of 10 systems reviewed and were otherwise negative. Past Medical & Surgical Medical Problems: (1) Asthma (2) Asthma exacerbation (3) Atrial fibrillation (4) CHF (congestive heart failure) (5) COPD exacerbation (6) Diabetes (7) Hypertensive urgency (8) Respiratory distress (9) Respiratory failure (10) Shoulder pain, left (11) Vomiting Surgical Problems: (1) Appendectomy (2) back surgery (3) Extraction of cataract Family History Cancer Diabetes mellitus Heart disease Hypertension Social History Smoking Status: Never Smoker Alcohol Use: none Drug Use: none Marital Status: Housing Status: lives with family Occupation Status: retired Current/Historical Medications Scheduled Diltiazem Hcl Ext Rel (Tiazac), 240 MG PO QAM Furosemide (Lasix), 40 MG PO QAM Levothyroxine Sodium (Synthroid), 75 MCG PO QAM Lisinopril (Lisinopril), 40 MG PO QAM Magnesium Oxide (Mag-Ox), 400 MG PO BID Metoprolol Succ (Toprol Xl) (Toprol-Xl ), 100 MG PO BID Pantoprazole (Protonix), 40 MG PO QAM Potassium Chloride (Micro-K Ext Rel), 10 MEQ PO QAM Sitagliptin Phosphate (Januvia), 50 MG PO QAM Warfarin Sod (Jantoven), 5 MG PO 6XWK Warfarin Sod (Jantoven), 2.5 MG PO WK Scheduled PRN Azithromycin (Zithromax), 250 MG PO DAILY PRN for RESCUE KIT Prednisone (Prednisone Tab), 20 MG PO UD PRN for RESCUE KIT Allergies Coded Allergies: Penicillins (Verified Allergy, Intermediate, RASH, 02/22/18) RASH Physical Exam Vital Signs Date Time Temp Pulse Resp B/P (MAP) Pulse Ox O2 Delivery O2 Flow Rate FiO2 02/22/18 16:47 62 18 140/69 93 Room Air 02/22/18 15:01 62 20 122/62 95 Room Air 02/22/18 14:35 62 21 95 02/22/18 14:20 61 02/22/18 14:19 98 Room Air 02/22/18 14:14 101/55 02/22/18 13:37 36.6 103 20 106/62 97 Room Air Physical Exam GENERAL: Sitting up in bed, alert, well appearing, well nourished, no distress, non-toxic EYE EXAM: normal conjunctiva. OROPHARYNX: no exudate, no erythema, lips, buccal mucosa, and tongue normal and mucous membranes are moist NECK: supple, no nuchal rigidity, no adenopathy, non-tender LUNGS: Clear to auscultation. Normal chest wall mechanics HEART: no murmurs, S1 normal and S2 normal ABDOMEN: abdomen soft, non-tender, normo-active bowel sounds, no masses, no rebound or guarding. BACK: Back is symmetrical on inspection and there is no deformity, no midline tenderness, no CVA tenderness. SKIN: no rashes and no bruising UPPER EXTREMITIES: upper extremities are grossly normal. LOWER EXTREMITIES: Calves are equal bilaterally. NEURO EXAM: Normal sensorium, cranial nerves II-XII grossly intact, normal speech, no gross weakness of arms, no gross weakness of legs. Medical Decision & Procedures ER Provider Diagnostic Interpretation: Radiology results as stated below per my review and the radiologist's interpretation: CHEST ONE VIEW PORTABLE CLINICAL HISTORY: Atypical chest pain COMPARISON STUDY: November 25, 2017 FINDINGS: The heart remains mildly enlarged. There is a left subclavian single chamber central venous pacemaker present. There is mild pulmonary vascular congestion. There is no lobar consolidation.[ There is slight splaying of the niranjan. This may indicate left atrial enlargement. IMPRESSION: Persistent cardiomegaly and radiographic evidence of mild congestive failure/fluid overload. No evidence of acute parenchymal consolidation Electronically signed by: Kenney Macdonald M.D. 02/22/2018 3:25 PM Dictated Date/Time: 02/22/2018 3:24 PM (CHEST FOR PE) ANGIO WITH CT DOSE: 543.65 mGycm HISTORY: 82 years-old Female presents with acute atypical chest pain TECHNIQUE: Multiple CTA images of the chest were obtained after the intravenous administration of 120 ml Optiray 320. Coronal and sagittal MIPS were obtained from the axial data set and were submitted for review. A dose lowering technique was utilized adhering to the principles of ALARA. COMPARISON: Chest radiograph of same day FINDINGS: CTA: Moderate multichamber cardiac enlargement without pericardial effusion. Coronary arterial calcifications are noted. Left subclavian pacer is noted with single lead overlying the right ventricle. Thoracic aorta is not well opacified, however demonstrates moderate mixed plaquing without evidence of aneurysm or dissection. The imaged great vessels appear patent. Reflux of contrast into the IVC and hepatic veins. The pulmonary arterial tree is opacified to the level of the segmental branches and demonstrates no focal filling defects to suggest pulmonary thromboembolic disease. CT CHEST: Enlarged thyroid without dominant nodule identified. No pathologically enlarged lymph nodes. Mildly prominent right hilar lymph nodes measure up to 9 mm in short axis. There is no pneumothorax or pleural effusion. Mild pulmonary vascular congestion with thickening of the bronchial head, likely congestive changes. Scattered areas of mosaic attenuation are compatible with air trapping. No significant intralobular septal thickening to suggest overt pulmonary edema. Subsegmental linear consolidative and ground glass opacities about the lung bases suggest atelectasis. No acute process of the imaged upper abdomen. Mild thickening about the left adrenal gland. Soft tissues are unremarkable. Multilevel degenerative changes about the spine. IMPRESSION: 1. No acute aortic pathology or evidence of pulmonary thromboembolic disease. 2. Cardiomegaly with mild pulmonary vascular congestion. No overt pulmonary edema. 3. Additional findings as above. The above report was generated using voice recognition software. It may contain grammatical, syntax or spelling errors. Electronically signed by: Farzad Shields M.D. 02/22/2018 4:52 PM Dictated Date/Time: 02/22/2018 4:48 PM Laboratory Results 02/22/18 14:10 Red Blood Count 3.86, Mean Corpuscular Volume 77.7, Mean Corpuscular Hemoglobin 24.9, Mean Corpuscular Hemoglobin Concent 32.0, Mean Platelet Volume 9.8, Neutrophils (%) (Auto) 50.7, Lymphocytes (%) (Auto) 29.3, Monocytes (%) (Auto) 12.9, Eosinophils (%) (Auto) 6.4, Basophils (%) (Auto) 0.5, Neutrophils # (Auto ) 3.00, Lymphocytes # (Auto) 1.73, Monocytes # (Auto) 0.76, Eosinophils # (Auto ) 0.38, Basophils # (Auto) 0.03 02/22/18 13:56 Test 02/22/18 13:56 02/22/18 14:10 Prothrombin Time 13.0 SECONDS (9.0-12.0) Prothromb Time International Ratio 1.2 (0.9-1.1) Anion Gap 7.0 mmol/L (3-11) Est Creatinine Clear Calc Drug Dose 25.1 ml/min Estimated GFR () 32.2 Estimated GFR (Non- 27.8 BUN/Creatinine Ratio 15.7 (10-20) Calcium Level 9.3 mg/dl (8.5-10.1) Total Creatine Kinase 111 U/L (26-192) Creatine Kinase MB 1.1 ng/ml (0.5-3.6) Creatine Kinase MB Ratio 1.0 (0-3.0) Troponin I < 0.015 ng/ml (0-0.045) Chemistry Specimen Hemolysis White Blood Count 5.91 K/uL (4.8-10.8) Red Blood Count 3.86 M/uL (4.2-5.4) Hemoglobin 9.6 g/dL (12.0-16.0) Hematocrit 30.0 % (37-47) Mean Corpuscular Volume 77.7 fL (80-100) Mean Corpuscular Hemoglobin 24.9 pg (25-34) Mean Corpuscular Hemoglobin Concent 32.0 g/dl (32-36) Platelet Count 289 K/uL (130-400) Mean Platelet Volume 9.8 fL (7.4-10.4) Neutrophils (%) (Auto) 50.7 % Lymphocytes (%) (Auto) 29.3 % Monocytes (%) (Auto) 12.9 % Eosinophils (%) (Auto) 6.4 % Basophils (%) (Auto) 0.5 % Neutrophils # (Auto) 3.00 K/uL (1.4-6.5) Lymphocytes # (Auto) 1.73 K/uL (1.2-3.4) Monocytes # (Auto) 0.76 K/uL (0.11-0.59) Eosinophils # (Auto) 0.38 K/uL (0-0.5) Basophils # (Auto) 0.03 K/uL (0-0.2) RDW Standard Deviation 45.0 fL (36.4-46.3) RDW Coefficient of Variation 15.7 % (11.5-14.5) Immature Granulocyte % (Auto) 0.2 % Immature Granulocyte # (Auto) 0.01 K/uL (0.00-0.02) Laboratory results per my review. Medications Administered Medications (Trade) Dose Ordered Sig/Hetal Route Start Time Stop Time Status Last Admin Dose Admin Sodium Chloride 500 ml @ 999 mls/hr Q31M STAT IV 02/22/18 13:55 02/22/18 14:25 DC 02/22/18 14:20 999 MLS/HR Aspirin (Aspirin Chew) 324 mg NOW STAT PO 02/22/18 13:55 02/22/18 13:57 DC 02/22/18 14:15 324 MG ECG Per My Interpretation Indication: chest pain Rate (beats per minute): 74 Rhythm: other (ventricular paced) Findings: LBBB, left axis deviation Change: no significant change (compared to 11/25/17) ED Course ED COURSE: Vital signs were reviewed and showed normal vitals. The patients medical record was reviewed The above diagnostic studies were performed and reviewed. ED treatments and interventions as stated above. 1346: The patient was evaluated in room C12B. A complete history and physical examination was performed. 1355: Aspirin Chew 324 mg PO, NSS 500 ml @ 999 mls/hr IV. 1400: Nitrostat Tab 0.4 mg SL PRN. 1555: I reevaluated the patient and told her she is going to CT. 1657: Upon reevaluation, the patient is resting and updated.I discussed my findings with the patient and she understands and agrees with the treatment plan. Based on the patients age, coexisting illnesses, exam and lab findings the decision to treat as an inpatient was made. The patient remained stable while under my care. The patient will be evaluated for further management. 1720: I reviewed the patient's case with Dr. Darrel Pina beef cattle farmer. He will evaluate the patient for further management. Medical Decision Differential diagnoses includes but is not limited to acute coronary syndrome, myocardial infarction, pericarditis, pulmonary embolus, aortic dissection, pneumonia, pneumothorax, musculoskeletal, shingles, esophageal. Patient is an 82-year-old female with past medical history of diabetes, hypertension and hyperlipidemia that presents to ER with chest pain. Labs were obtained and show a chronic anemia. BMP with a creatinine 1.6. Troponin was negative. Chest x-ray and CT of the chest is unremarkable along with the EKG which shows a chronic left bundle. Pain was resolved while in the ER. She was previously given aspirin. Pain does appear to be slightly positional/ musculoskeletal she describes it worse with sitting up but there are multiple other components with how she describes his pain. Updated patient at bedside. Patient will be evaluated by internal medicine for further workup. Medication Reconcilliation Current Medication List: was personally reviewed by me Blood Pressure Screening Patient's blood pressure: Normal blood pressure Consults Time Called: 1714 Consulting Physician: Dr. Darrel Pina beef cattle farmer Returned Call: 1720 I reviewed the patient's case with Dr. Darrel Pina beef cattle farmer. He will evaluate the patient for further management. Impression Primary Impression: Precordial chest pain Scribe Attestation The scribe's documentation has been prepared under my direction and personally reviewed by me in its entirety. I confirm that the note above accurately reflects all work, treatment, procedures, and medical decision making performed by me. Departure Information Dispostion Being Evaluated By Hospitalist Referrals Mary Manriquez D.O. (PCP) Patient Instructions My [facility]
[2018-02-22] MEDS ORDERED: WARFARIN SOD 5 MG TAB PO SCH (19:30)
[2018-02-22 20:05] VITALS: BP 156/86; PULSE 68; TEMP 37.1; O2SAT 91; Ht 149.9 cm; Wt 88.2 kg
[2018-02-22] MEDS: MAGNESIUM OXIDE 400 MG TAB PO SCH (20:47)
[2018-02-22] MEDS: WARFARIN SOD 5 MG TAB PO SCH (20:47)
[2018-02-22] MEDS: METOPROLOL SUCC 50MG EXT REL TAB PO SCH (20:48)
[2018-02-22] MEDS: INSULIN ASPART 100 UNITS/ML 3 ML PEN SC SCH (20:51)
[2018-02-22] MEDS: HEPARIN SOD 5000 UNIT/0.5 ML CARP SQ SCH (20:52)
[2018-02-23] VITALS (8 sets, daily range): BP systolic 131–174; BP diastolic 64–92; PULSE 60–66; TEMP 36.4–36.9; O2SAT 92–98
[2018-02-23] MEDS: LEVOTHYROXINE 75 MCG TAB PO SCH (05:43)
[2018-02-23] MEDS: HEPARIN SOD 5000 UNIT/0.5 ML CARP SQ SCH ×3 (05:43→21:31)
[2018-02-23 06:17] LABS: HEMATOCRIT 29.4 % (37-47); MEAN CELL VOLUME 78.2 fL (80-100); MEAN CORPUSCULAR HEMOGLOBIN 23.9 pg (25-34); MEAN CORPUSCULAR HGB CONC 30.6 g/dl (32-36); MEAN PLATELET VOLUME 9.6 fL (7.4-10.4); PLATELET COUNT 251 K/uL (130-400); RED CELL DISTRIBUTION WIDTH CV 15.9 % (11.5-14.5); RED CELL DISTRIBUTION WIDTH SD 45.8 fL (36.4-46.3); WHITE BLOOD COUNT 5.29 K/uL (4.8-10.8)
[2018-02-23 06:30] LABS: INR 1.3 (0.9-1.1)
[2018-02-23 06:53] LABS: CALCIUM 8.5 mg/dl (8.5-10.1); CREATININE 1.41 mg/dl (0.60-1.20); PHOSPHORUS 3.7 mg/dl (2.5-4.9)
[2018-02-23] MEDS: INSULIN ASPART 100 UNITS/ML 3 ML PEN SC SCH ×4 (07:00→21:31)
[2018-02-23] MEDS: MAGNESIUM OXIDE 400 MG TAB PO SCH ×2 (08:34→21:27)
[2018-02-23] MEDS: LISINOPRIL 40 MG TAB PO SCH (08:35)
[2018-02-23] MEDS: DILTIAZEM HCL 120 MG EXT REL CAP PO SCH (08:35)
[2018-02-23] MEDS: POTASSIUM CHLORIDE 10 MEQ TABCR PO SCH (08:35)
[2018-02-23] MEDS: FUROSEMIDE 40 MG TAB PO SCH (08:35)
[2018-02-23] MEDS: SITAGLIPTIN 25 MG TAB PO SCH (08:36)
[2018-02-23] MEDS: METOPROLOL SUCC 50MG EXT REL TAB PO SCH ×2 (08:36→21:27)
[2018-02-23] MEDS: PANTOprazole SOD 40 MG TAB PO SCH (08:36)
--- NOTE | 2018-02-23 09:10 | Cardiology Consultation ---
Cardiology Consultation Date of Service February 23, 2018. Cardiology Consultation Indication: Consultation for chest pain History: This is an 83-year-old pleasant female who is followed by Dr. Clement in our clinic. She has a history of chronic atrial fibrillation and received a permanent pacemaker for tachybradycardia syndrome late last year. She is a diabetic with a history of diastolic heart failure. She was in her usual state of health yesterday when she began to have some chest discomfort which she describes as a heaviness. It lasted for several hours and then spontaneously resolved. Since admission she has had some intermittent discomfort but it is nothing like it was yesterday. Her EKG shows a paced rhythm. Her cardiac markers have been negative. Allergies: Penicillin Reported Home Medications Medications Dose Route/Sig Max Daily Dose Days Date Category Dose Instructions Januvia (Sitagliptin Phosphate) 50 Mg Tab 50 Mg PO QAM 02/22/18 Reported Lasix (Furosemide) 40 Mg Tab 40 Mg PO QAM 02/22/18 Reported Jantoven (Warfarin Sodium) 2.5 Mg Tab 2.5 Mg PO WK 11/25/17 Reported TAKES ON FRIDAYS ONLY Jantoven (Warfarin Sodium) 5 Mg Tab 5 Mg PO 6XWK 11/25/17 Reported TAKES DAILY EXCEPT FRIDAYS. Toprol-Xl (Metoprolol Succinate) 100 Mg Tabcr 100 Mg PO BID 10/15/17 Reported Synthroid (Levothyroxine Sodium) 75 Mcg Tab 75 Mcg PO QAM 10/15/17 Reported Micro-K Ext Rel (Potassium Chloride) 10 Meq Capcr 10 Meq PO QAM 09/30/17 Reported Tiazac (Diltiazem HCl) 240 Mg Capcr 240 Mg PO QAM 09/30/17 Reported Prednisone Tab (Prednisone) 20 Mg Tab 20 Mg PO UD PRN 07/31/16 Reported take 3 tabs for 3 days,2 tabs for 3 days,1 tab for 3 days ,1/2 tab for 3 days then stop Zithromax (Azithromycin) 250 Mg Tab 250 Mg PO DAILY PRN 07/31/16 Reported take 2 pills on first days then 1 daily for 4 days Mag-Ox (Magnesium Oxide) 400 Mg Tab 400 Mg PO BID 12/25/14 Reported Lisinopril 40 Mg Tab 40 Mg PO QAM 12/25/14 Reported PAST MEDICAL HISTORY: 1. Persistent atrial fibrillation, rate controlled on chronic Coumadin therapy. 2. Tachybrady syndrome, status post single lead permanent pacemaker placement. 3. 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 4. Diabetes. 5. Diastolic dysfunction with normal LV systolic function. 6. Asthma. 7. Hypertension. 8. Hyperlipidemia. 9. Carotid occlusive disease. 10. Elevated BMI. 11. Hypothyroidism. Social history: Patient is a non-smoker. She lives independently. Family medical history: Noncontributory Review of systems: General: The patient denies weight change, night sweats, fever, chills. Head: The patient denies headache and prior head trauma. Cardiovascular: The patient denies chest pain or chest discomfort, dyspnea on exertion, palpitations, PND, orthopnea, edema, spontaneous shortness of breath, syncope and near syncope. Pulmonary: The patient denies cough, wheeze, pleurisy, hemoptysis, sputum, and excessive snoring. Gastrointestinal: The patient denies nausea, vomiting, diarrhea, constipation, bloating, hematemesis, hematochezia, and abdominal pain. Skin: The patient denies diaphoresis and rash. Musculoskeletal: The patient denies joint pain, joint swelling, myalgia, back pain, neck pain and prior injuries. Neurological: The patient denies prior stroke and seizures EKG reveals ventricular paced rhythm. Vital Signs Past 12 Hours Date Time Temp Pulse Resp B/P (MAP) Pulse Ox O2 Delivery O2 Flow Rate FiO2 02/23/18 07:59 36.4 66 20 174/92 (119) 94 Room Air 174/83 (113) 02/23/18 04:00 98 Room Air 02/23/18 03:51 36.9 60 16 161/72 (101) 94 BiPAP 02/23/18 00:22 36.9 64 18 148/74 (98) 96 General Appearance: Alert and Oriented x3. NAD. Head: Normocephalic Atraumatic. Eyes: PERRLA, EOMI, conjunctiva and sclera clear Neck: Supple. No carotid bruits noted. No JVD. No HJD. Respiratory: Breath sounds clear to auscultation bilaterally. No w/r/r. Cardiovascular: Reg rate and rhythm. S1 and S2 noted. No murmurs, rubs, gallops. PMI non displace. Abdomen: Normal bowel sounds, soft nontender. no abdominal bruits. Extremities: No edema, no clubbing or cyanosis. distal pulses 2/4 bilaterally. Neuro: No focal deficits. Psychiatric: Normal affect. Last 24 Hours Test 02/22/18 13:56 02/22/18 14:10 02/22/18 19:56 02/23/18 05:49 Prothrombin Time 13.0 SECONDS 13.4 SECONDS Prothromb Time International Ratio 1.2 1.3 Sodium Level 136 mmol/L 139 mmol/L Potassium Level 4.5 mmol/L 4.0 mmol/L Chloride Level 102 mmol/L 105 mmol/L Carbon Dioxide Level 27 mmol/L 29 mmol/L Anion Gap 7.0 mmol/L 5.0 mmol/L Blood Urea Nitrogen 27 mg/dl 23 mg/dl Creatinine 1.69 mg/dl 1.41 mg/dl Est Creatinine Clear Calc Drug Dose 25.1 ml/min 29.6 ml/min Estimated GFR () 32.2 39.8 Estimated GFR (Non- 27.8 34.4 BUN/Creatinine Ratio 15.7 16.4 Random Glucose 149 mg/dl 95 mg/dl Calcium Level 9.3 mg/dl 8.5 mg/dl Total Creatine Kinase 111 U/L Creatine Kinase MB 1.1 ng/ml Creatine Kinase MB Ratio 1.0 Troponin I < 0.015 ng/ml < 0.015 ng/ml Chemistry Specimen Hemolysis White Blood Count 5.91 K/uL 5.29 K/uL Red Blood Count 3.86 M/uL 3.76 M/uL Hemoglobin 9.6 g/dL 9.0 g/dL Hematocrit 30.0 % 29.4 % Mean Corpuscular Volume 77.7 fL 78.2 fL Mean Corpuscular Hemoglobin 24.9 pg 23.9 pg Mean Corpuscular Hemoglobin Concent 32.0 g/dl 30.6 g/dl Platelet Count 289 K/uL 251 K/uL Mean Platelet Volume 9.8 fL 9.6 fL Neutrophils (%) (Auto) 50.7 % Lymphocytes (%) (Auto) 29.3 % Monocytes (%) (Auto) 12.9 % Eosinophils (%) (Auto) 6.4 % Basophils (%) (Auto) 0.5 % Neutrophils # (Auto) 3.00 K/uL Lymphocytes # (Auto) 1.73 K/uL Monocytes # (Auto) 0.76 K/uL Eosinophils # (Auto) 0.38 K/uL Basophils # (Auto) 0.03 K/uL RDW Standard Deviation 45.0 fL 45.8 fL RDW Coefficient of Variation 15.7 % 15.9 % Immature Granulocyte % (Auto) 0.2 % Immature Granulocyte # (Auto) 0.01 K/uL Bedside Glucose 108 mg/dl Phosphorus Level 3.7 mg/dl Magnesium Level 2.3 mg/dl Triglycerides Level 122 mg/dl Cholesterol Level 162 mg/dl HDL Cholesterol 55 mg/dl LDL Cholesterol, Calculated 83 mg/dl VLDL Cholesterol, Calculated 24 mg/dl Cholesterol/HDL Ratio 2.9 Test 02/23/18 07:09 Bedside Glucose 104 mg/dl Impression: 1. Chest pain 2. Chronic atrial fibrillation 3. Tachybradycardia syndrome status post permanent pacemaker 4. Chronic diastolic heart failure 5. Diabetes Recommendations: The patient had negative cardiac enzymes however, her EKG is not interpretable due to her pacemaker. She is at risk for having coronary artery disease due to her diabetes, diastolic heart failure and age. She should have a provocative stress test. The patient is best served with a pharmacologic stress test. Dobutamine study is not indicated due to her pacemaker and most likely inability to obtain a reasonable heart rate with dobutamine especially since she is taking fairly large dose of beta-antoni. I would recommend a Lexiscan Cardiolite study prior to discharge.
--- NOTE | 2018-02-23 16:17 | Progress Note ---
Internal Med Progress Note Date of Service: February 23, 2018. Provider Documentation: SUBJECTIVE: The patient was seen and examined in telemetry unit Still complains of precordial chest pain with deep breathing Cardiac enzymes remain unremarkable She cannot have dobutamine stress echo today OBJECTIVE: Vital Signs-as noted below Exam: General-no apparent distress at rest Eyes-normal ENT-normal Neck-supple Lungs-clear to auscultate bilaterally Heart-irregular, no murmur Abdomen-benign Extremities-trace edema bilaterally Neuro-alert awake oriented Lab data as noted below. ASSESSMENT & PLAN: CHEST PAIN Seems to be secondary to costochondritis Has significant cardiac Abhishek including atrial fibrillation status post pacemaker, diastolic heart failure, diabetes, hypertension and hyperlipidemia Serial cardiac enzymes and EKG chest pain-No ACS Dobutamine stress echo tomorrow morning-can not be done Appreciate Cardiology input Persantine Cardiolite tomorrow Atrial fibrillation status post PPM Rate is controlled Continue with current medications DIASTOLIC HEART FAILURE No acute symptoms and no CHF Will hold Lasix Chronic kidney disease with YISEL Creatinine slightly elevated We will hold Lasix and monitor PRP DIABETES TYPE 2 We will put her on sliding scale coverage with blood sugar checkup HYPERTENSION Continue current medication COPD No acute symptoms continue with current inhalers GI PROPHYLAXIS With PPI DVT PROPHYLAXIS Has been on Coumadin CODE STATUS: Full Vital Signs: Date Time Temp Pulse Resp B/P (MAP) Pulse Ox O2 Delivery O2 Flow Rate FiO2 02/23/18 15:57 36.5 62 20 131/71 (91) 95 Room Air 02/23/18 12:01 36.9 62 20 146/77 (100) 94 Room Air 02/23/18 12:00 Room Air 02/23/18 08:00 Room Air 02/23/18 07:59 36.4 66 20 174/92 (119) 94 Room Air 174/83 (113) 02/23/18 04:00 98 Room Air 02/23/18 03:51 36.9 60 16 161/72 (101) 94 BiPAP 02/23/18 00:22 36.9 64 18 148/74 (98) 96 02/22/18 20:05 37.1 68 22 156/86 91 Room Air 02/22/18 19:09 36.6 64 18 130/76 93 02/22/18 18:36 64 18 130/76 93 Room Air 130/76 02/22/18 18:06 61 17 91 02/22/18 17:06 61 93 02/22/18 16:47 62 18 140/69 93 Room Air 02/22/18 16:47 140/69 Lab Results: Results Past 24 Hours Test 02/22/18 19:56 02/23/18 05:49 02/23/18 07:09 02/23/18 11:06 Range/Units Bedside Glucose 108 104 119 70-90 mg/dl White Blood Count 5.29 4.8-10.8 K/uL Red Blood Count 3.76 4.2-5.4 M/uL Hemoglobin 9.0 12.0-16.0 g/dL Hematocrit 29.4 37-47 % Mean Corpuscular Volume 78.2 80-100 fL Mean Corpuscular Hemoglobin 23.9 25-34 pg Mean Corpuscular Hemoglobin Concent 30.6 32-36 g/dl RDW Standard Deviation 45.8 36.4-46.3 fL RDW Coefficient of Variation 15.9 11.5-14.5 % Platelet Count 251 130-400 K/uL Mean Platelet Volume 9.6 7.4-10.4 fL Prothrombin Time 13.4 9.0-12.0 SECONDS Prothromb Time International Ratio 1.3 0.9-1.1 Sodium Level 139 136-145 mmol/L Potassium Level 4.0 3.5-5.1 mmol/L Chloride Level 105 98-107 mmol/L Carbon Dioxide Level 29 21-32 mmol/L Anion Gap 5.0 3-11 mmol/L Blood Urea Nitrogen 23 7-18 mg/dl Creatinine 1.41 0.60-1.20 mg/dl Est Creatinine Clear Calc Drug Dose 29.6 ml/min Estimated GFR () 39.8 Estimated GFR (Non- 34.4 BUN/Creatinine Ratio 16.4 10-20 Random Glucose 95 70-99 mg/dl Calcium Level 8.5 8.5-10.1 mg/dl Phosphorus Level 3.7 2.5-4.9 mg/dl Magnesium Level 2.3 1.8-2.4 mg/dl Troponin I < 0.015 0-0.045 ng/ml Triglycerides Level 122 0-150 mg/dl Cholesterol Level 162 0-200 mg/dl HDL Cholesterol 55 mg/dl LDL Cholesterol, Calculated 83 mg/dl VLDL Cholesterol, Calculated 24 mg/dl Cholesterol/HDL Ratio 2.9
[2018-02-23] MEDS: WARFARIN SOD 5 MG TAB PO SCH (17:10)
[2018-02-24] VITALS (8 sets, daily range): BP systolic 129–166; BP diastolic 59–79; PULSE 60–67; TEMP 36.4–37.1; O2SAT 95–100
[2018-02-24] MEDS: LEVOTHYROXINE 75 MCG TAB PO SCH (05:21)
[2018-02-24] MEDS: HEPARIN SOD 5000 UNIT/0.5 ML CARP SQ SCH ×2 (05:21→14:00)
[2018-02-24 06:17] LABS: INR 1.4 (0.9-1.1)
[2018-02-24] MEDS: INSULIN ASPART 100 UNITS/ML 3 ML PEN SC SCH ×2 (07:00→11:00)
[2018-02-24] MEDS: SITAGLIPTIN 25 MG TAB PO SCH (07:47)
[2018-02-24] MEDS: METOPROLOL SUCC 50MG EXT REL TAB PO SCH (07:54)
[2018-02-24] MEDS: LISINOPRIL 40 MG TAB PO SCH (07:54)
[2018-02-24] MEDS: PANTOprazole SOD 40 MG TAB PO SCH (07:54)
[2018-02-24] MEDS: POTASSIUM CHLORIDE 10 MEQ TABCR PO SCH (07:55)
[2018-02-24] MEDS: DILTIAZEM HCL 120 MG EXT REL CAP PO SCH (07:55)
[2018-02-24] MEDS: MAGNESIUM OXIDE 400 MG TAB PO SCH (07:55)
[2018-02-24] MEDS ORDERED: REGADENOSON 0.4 MG/5 ML SYR ONE (07:57)
--- NOTE | 2018-02-24 09:56 | Clinical Documentation Query ---
CLINICAL DOCUMENTATION QUERY 82 yo female admitted with chest pain has GFR ranges from 35 to 27 over past five month period. In your clinical opinion is this patient being managed for: ( + ) Chronic kidney disease, stage 3 - 4 ( ) Not Agree ( ) Other explanation of clinical findings (No explanation is considered a No Response) ( ) Unable to determine ( ) Need to Discuss (Phone CDS or qliq) (No discussion is considered a No Response) The medical record reflects the following clinical findings, treatment, and risk factors. Clinical Indicators: As above Treatment: Serial PRPs, hold Lasix Risk Factors: Age, HTN, Afib, diastolic CHF Please clarify and document your clinical opinion in the progress notes and discharge summary. Terms such as "probable", "suspected", "likely", "questionable", "possible", or "still to be ruled out" are acceptable. IF IN AGREEMENT, YOU MUST DOCUMENT ABOVE DIAGNOSTIC STATEMENT IN DAILY PROGRESS NOTES AND DISCHARGE SUMMARY. This document is not part of the patient's record. Thank You, Katherine Quintanilla RN [phone]
[2018-02-24] MEDS: FUROSEMIDE 40 MG TAB PO SCH (10:42)
--- NOTE | 2018-02-24 13:07 | Progress Note ---
Internal Med Progress Note Date of Service: February 24, 2018. Provider Documentation: SUBJECTIVE: The patient was seen and examined in telemetry unit Still complains of precordial chest pain with deep breathing Cardiac enzymes remain unremarkable She cannot have dobutamine stress echo today 02/24 Clinically a lot better S/P Persantine stress test-negative for any Ischemia OBJECTIVE: Vital Signs-as noted below Exam: General-no apparent distress at rest Eyes-normal ENT-normal Neck-supple Lungs-clear to auscultate bilaterally Heart-irregular, no murmur Abdomen-benign Extremities-trace edema bilaterally Neuro-alert awake oriented Lab data as noted below. ASSESSMENT & PLAN: CHEST PAIN Seems to be secondary to costochondritis Has significant cardiac Abhishek including atrial fibrillation status post pacemaker, diastolic heart failure, diabetes, hypertension and hyperlipidemia Serial cardiac enzymes and EKG chest pain-No ACS Dobutamine stress echo tomorrow morning-can not be done Appreciate Cardiology input Persantine Cardiolite tomorrow-Negative Can go home Atrial fibrillation status post PPM Rate is controlled Continue with current medications DIASTOLIC HEART FAILURE No acute symptoms and no CHF Will hold Lasix Continue Lasix a s an OP Chronic kidney disease with YISEL Creatinine slightly elevated We will hold Lasix and monitor PRP DIABETES TYPE 2 We will put her on sliding scale coverage with blood sugar checkup HYPERTENSION Continue current medication COPD No acute symptoms continue with current inhalers GI PROPHYLAXIS With PPI DVT PROPHYLAXIS Has been on Coumadin CODE STATUS: Full Discharge home today Vital Signs: Date Time Temp Pulse Resp B/P (MAP) Pulse Ox O2 Delivery O2 Flow Rate FiO2 02/24/18 12:00 36.6 66 18 155/75 (101) 97 Room Air 02/24/18 08:00 Room Air 02/24/18 07:03 36.5 64 16 130/59 (82) 95 Room Air 02/24/18 04:00 98 Room Air 02/24/18 03:41 37.1 60 18 166/67 (100) 98 BiPAP 02/24/18 01:01 36.9 67 16 147/67 (93) 96 02/24/18 00:01 96 Room Air 02/23/18 20:00 92 Room Air 02/23/18 19:58 36.6 62 20 154/64 (94) 92 Room Air 02/23/18 16:00 Room Air 02/23/18 15:57 36.5 62 20 131/71 (91) 95 Room Air Lab Results: Results Past 24 Hours Test 02/23/18 16:33 02/23/18 21:17 02/24/18 05:57 02/24/18 07:32 Range/Units Bedside Glucose 97 136 116 70-90 mg/dl Prothrombin Time 14.4 9.0-12.0 SECONDS Prothromb Time International Ratio 1.4 0.9-1.1 Test 02/24/18 11:59 Range/Units Bedside Glucose 127 70-90 mg/dl
--- NOTE | 2018-02-24 15:32 | Discharge Instructions ---
Discharge Instructions Date of Service February 24, 2018. Admission Reason for Admission: Chest Pain Discharge Discharge Diagnosis / Problem: Chest pain,No ACS-Negative Stress test Discharge Goals Goal(s): Prevent Disease Progression Activity Recommendations Activity Limitations: resume your previous activity . Instructions / Follow-Up Instructions / Follow-Up Dr Manriquez on 03/01/18 at 11:15 AM.Please keep usual Follow up appt with cardiology Current Hospital Diet Patient's current hospital diet: Diabetes Type 2 Diet, AHA Diet (Heart Healthy) Discharge Diet Recommended Diet: AHA Diet (Heart Healthy), Diabetes Type 2 Diet Pending Studies Studies pending at discharge: no Laboratory Results Lipid Panel Test 02/23/18 05:49 Range/Units Triglycerides Level 122 0-150 mg/dl Cholesterol Level 162 0-200 mg/dl HDL Cholesterol 55 mg/dl Cholesterol/HDL Ratio 2.9 LDL Cholesterol, Calculated 83 mg/dl Medical Emergencies . Who to Call and When: Medical Emergencies: If at any time you feel your situation is an emergency, please call 911 immediately. . Non-Emergent Contact Non-Emergency issues call your: Primary Care Provider . Past History Medical & Surgical History: (1) Hypertension (2) Chest pain (3) Anticoagulated on Coumadin (4) Atrial fibrillation (5) COPD exacerbation (6) Asthma exacerbation (7) CHF (congestive heart failure) (8) back surgery (9) Extraction of cataract (10) Appendectomy . "Provider Documentation" section prepared by Suellen Rojo. .
[2018-02-24] MEDS ORDERED: WARFARIN SOD 2.5 MG TAB PO SCH (16:00)
--- NOTE | 2018-02-24 17:55 | MYOCARDIAL PERFUSION SCAN ---
LEXISCAN CARDIOLITE STUDY The patient received 11 mCi of intravenous technetium-99m sestamibi followed by resting SPECT study. The patient then received 0.4 mg of intravenous Lexiscan according to protocol followed by an additional 30.3 mCi of intravenous technetium-99m sestamibi followed by a repeat SPECT study. The patient had no symptoms following the Lexiscan infusion. The baseline EKG was a paced rhythm with the underlying rhythm being atrial fibrillation. There were no significant EKG changes during or following the Lexiscan that would suggest ischemia. When comparing the rest to stress sestamibi scans, there is homogeneous perfusion on both the rest and stress images. There are no myocardial perfusion defects that would suggest ischemia or infarct. Gated analysis reveals normal LV function with an estimated left ventricular ejection fraction of 69%. Overall, this Lexiscan Cardiolite study is negative for ischemia and denotes a low probability for hemodynamically significant coronary artery disease.
--- NOTE | 2018-02-25 08:03 | Discharge Summary ---
Discharge Summary Date of Service February 25, 2018. Discharge Summary Admission Date: February 23, 2018 at 16:18 Discharge Date: February 24, 2018 Discharge Disposition: Home Principal Diagnosis: Chest pain,No ACS-Negative Lexiscan Cardiolite Stress test Secondary Diagnoses/Problems: Please see H&P and Hospital progress note Consultations: Cardiology Medication Reconciliation Continued Medications: Azithromycin (Zithromax) 250 Mg Tab 250 MG PO DAILY PRN for RESCUE KIT take 2 pills on first days then 1 daily for 4 days Diltiazem Hcl Ext Rel (Tiazac) 240 Mg Capcr 240 MG PO QAM Furosemide (Lasix) 40 Mg Tab 40 MG PO QAM, TAB Levothyroxine Sodium (Synthroid) 75 Mcg Tab 75 MCG PO QAM Lisinopril (Lisinopril) 40 Mg Tab 40 MG PO QAM Magnesium Oxide (Mag-Ox) 400 Mg Tab 400 MG PO BID Metoprolol Succ (Toprol Xl) (Toprol-Xl ) 100 Mg Tabcr 100 MG PO BID Pantoprazole (Protonix) 40 Mg Tab 40 MG PO QAM Potassium Chloride (Micro-K Ext Rel) 10 Meq Capcr 10 MEQ PO QAM Prednisone (Prednisone Tab) 20 Mg Tab 20 MG PO UD PRN for RESCUE KIT take 3 tabs for 3 days,2 tabs for 3 days,1 tab for 3 days,1/2 tab for 3 days then stop Sitagliptin Phosphate (Januvia) 50 Mg Tab 50 MG PO QAM, TAB Warfarin Sod (Jantoven) 5 Mg Tab 5 MG PO 6XWK TAKES DAILY EXCEPT FRIDAYS. Warfarin Sod (Jantoven) 2.5 Mg Tab 2.5 MG PO WK TAKES ON FRIDAYS ONLY Admission Information HPI (per Admitting provider): She is an 82-year-old female obese with significant past medical history of A. fib status post pacemaker placement diabetes hypertension hyperlipidemia also COPD apparently has been complaining of chest pain in the precordial area on and off since this morning. Initially the pain was for very short time but later on it left persisted longer. She did not have any associated symptoms with it but according to her it is a 9. She also complained that the pain got worse on deep breathing. In the emergency room she was hemodynamically stable without any change in her EKG and her troponin and a CTA was negative for any pulmonary embolism. Given the history of diabetes hypertension heart problem and she was admitted to telemetry unit to rule out and if possible stress test in the morning. Past Medical/Surgical History Medical Problems: (1) Acute bronchitis (2) Acute congestive heart failure (3) Anemia (4) Anticoagulated on Coumadin (5) Asthma (6) Asthma exacerbation (7) Atrial fibrillation (8) Atrial fibrillation (9) Blood in left ear canal (10) Bradycardia (11) Cellulitis (12) Chest pain (13) CHF (congestive heart failure) (14) CHF (congestive heart failure) (15) CHF exacerbation (16) COPD exacerbation (17) Diabetes (18) Fluid overload (19) Hypertension (20) Hypertensive urgency (21) Left ankle pain (22) Lightheadedness (23) Respiratory distress (24) Respiratory failure (25) Shoulder pain, left (26) SOB (shortness of breath) (27) Supratherapeutic INR (28) Vomiting Surgical Problems: (1) Appendectomy (2) back surgery (3) Extraction of cataract Family History Cancer Diabetes mellitus Heart disease Hypertension Social History Smoking Status: Never Smoker Smokeless Tobacco Use: No Alcohol Use: occasionally Drug Use: none Marital Status: Housing status: lives with family Occupational Status: retired Immunizations History of Influenza Vaccine: No Influenza Vaccine Date: Jul 11, 2005 History of Tetanus Vaccine?: UTD History of Pneumococcal: Yes Pneumococcal Date: Jul 27, 2009 History of Hepatitis B Vaccine: Unknown Allergies Coded Allergies: Penicillins (Verified Allergy, Intermediate, RASH, 02/22/18) RASH Home Medications Scheduled Diltiazem Hcl Ext Rel (Tiazac), 240 MG PO QAM Furosemide (Lasix), 40 MG PO QAM Levothyroxine Sodium (Synthroid), 75 MCG PO QAM Lisinopril (Lisinopril), 40 MG PO QAM Magnesium Oxide (Mag-Ox), 400 MG PO BID Metoprolol Succ (Toprol Xl) (Toprol-Xl ), 100 MG PO BID Pantoprazole (Protonix), 40 MG PO QAM Potassium Chloride (Micro-K Ext Rel), 10 MEQ PO QAM Sitagliptin Phosphate (Januvia), 50 MG PO QAM Warfarin Sod (Jantoven), 5 MG PO 6XWK Warfarin Sod (Jantoven), 2.5 MG PO WK Scheduled PRN Azithromycin (Zithromax), 250 MG PO DAILY PRN for RESCUE KIT Prednisone (Prednisone Tab), 20 MG PO UD PRN for RESCUE KIT Review of Systems Respiratory: + cough, + problem reported (Precordial tenderness) Cardiovascular: + chest pain Physical Exam H&P v2 Physical Exam Vital Signs Date Time Temp Pulse Resp B/P (MAP) Pulse Ox O2 Delivery O2 Flow Rate FiO2 02/22/18 16:47 62 18 140/69 93 Room Air 02/22/18 15:01 62 20 122/62 95 Room Air 02/22/18 14:35 62 21 95 02/22/18 14:20 61 02/22/18 14:19 98 Room Air 02/22/18 14:14 101/55 02/22/18 13:37 36.6 103 20 106/62 97 Room Air General Appearance: + mild distress Head: normocephalic Eyes: normal inspection ENT: normal ENT inspection Neck: supple Respiratory/Chest: lungs clear, normal breath sounds, + pertinent finding ( Precordial tenderness) Cardiovascular: + abnormal rhythm (Irregular) Abdomen/GI: normal bowel sounds Back: normal inspection Extremities/Musculoskelatal: normal inspection Neurologic/Psych: no motor/sensory deficits, alert, normal mood/affect, normal reflexes Skin: normal color Lymphatic: no adenopathy Diagnostics H&P v2 Diagnostics Laboratory Results Results Past 24 Hours Test 02/22/18 13:56 02/22/18 14:10 Range/Units Prothrombin Time 13.0 9.0-12.0 SECONDS Prothromb Time International Ratio 1.2 0.9-1.1 Sodium Level 136 136-145 mmol/L Potassium Level 4.5 3.5-5.1 mmol/L Chloride Level 102 98-107 mmol/L Carbon Dioxide Level 27 21-32 mmol/L Anion Gap 7.0 3-11 mmol/L Blood Urea Nitrogen 27 7-18 mg/dl Creatinine 1.69 0.60-1.20 mg/dl Est Creatinine Clear Calc Drug Dose 25.1 ml/min Estimated GFR () 32.2 Estimated GFR (Non- 27.8 BUN/Creatinine Ratio 15.7 10-20 Random Glucose 149 70-99 mg/dl Calcium Level 9.3 8.5-10.1 mg/dl Total Creatine Kinase 111 26-192 U/L Creatine Kinase MB 1.1 0.5-3.6 ng/ml Creatine Kinase MB Ratio 1.0 0-3.0 Troponin I < 0.015 0-0.045 ng/ml Chemistry Specimen Hemolysis White Blood Count 5.91 4.8-10.8 K/uL Red Blood Count 3.86 4.2-5.4 M/uL Hemoglobin 9.6 12.0-16.0 g/dL Hematocrit 30.0 37-47 % Mean Corpuscular Volume 77.7 80-100 fL Mean Corpuscular Hemoglobin 24.9 25-34 pg Mean Corpuscular Hemoglobin Concent 32.0 32-36 g/dl Platelet Count 289 130-400 K/uL Mean Platelet Volume 9.8 7.4-10.4 fL Neutrophils (%) (Auto) 50.7 % Lymphocytes (%) (Auto) 29.3 % Monocytes (%) (Auto) 12.9 % Eosinophils (%) (Auto) 6.4 % Basophils (%) (Auto) 0.5 % Neutrophils # (Auto) 3.00 1.4-6.5 K/uL Lymphocytes # (Auto) 1.73 1.2-3.4 K/uL Monocytes # (Auto) 0.76 0.11-0.59 K/uL Eosinophils # (Auto) 0.38 0-0.5 K/uL Basophils # (Auto) 0.03 0-0.2 K/uL RDW Standard Deviation 45.0 36.4-46.3 fL RDW Coefficient of Variation 15.7 11.5-14.5 % Immature Granulocyte % (Auto) 0.2 % Immature Granulocyte # (Auto) 0.01 0.00-0.02 K/uL Diagnostic Radiology CTA-No pulmonary Embolism CXR normal (Cardiomegaly.No CHF) EKG LBBB,LAD,Paced Rhythm and 74/min Impression H&P v2 Impression Assessment and Plan CHEST PAIN Seems to be secondary to costochondritis Has significant cardiac Abhishek including atrial fibrillation status post pacemaker, diastolic heart failure, diabetes, hypertension and hyperlipidemia Serial cardiac enzymes and EKG chest pain Dobutamine stress echo tomorrow morning If cleared she will be going home tomorrow Atrial fibrillation status post PPM Rate is controlled Continue with current medications DIASTOLIC HEART FAILURE No acute symptoms and no CHF Will hold Lasix Chronic kidney disease with YISEL Creatinine slightly elevated We will hold Lasix and monitor PRP DIABETES TYPE 2 We will put her on sliding scale coverage with blood sugar checkup HYPERTENSION Continue current medication COPD No acute symptoms continue with current inhalers GI PROPHYLAXIS With PPI DVT PROPHYLAXIS Has been on Coumadin CODE STATUS: Full In my clinical assessment the beneficially meets criteria as per CMS for 2 midnight stay in the hospital Resuscitation Status VTE Prophylaxis Will order VTE Prophylaxis: Yes Physical Exam (per Admitting): General Appearance: + mild distress Head: normocephalic Eyes: normal inspection ENT: normal ENT inspection Neck: supple Respiratory/Chest: lungs clear, normal breath sounds, + pertinent finding ( Precordial tenderness) Cardiovascular: + abnormal rhythm (Irregular) Abdomen/GI: normal bowel sounds Back: normal inspection Extremities/Musculoskelatal: normal inspection Neurologic/Psych: no motor/sensory deficits, alert, normal mood/affect, normal reflexes Skin: normal color Lymphatic: no adenopathy Hospital Course CHEST PAIN Seems to be secondary to costochondritis Has significant cardiac Abhishek including atrial fibrillation status post pacemaker, diastolic heart failure, diabetes, hypertension and hyperlipidemia Serial cardiac enzymes and EKG chest pain-No ACS Dobutamine stress echo tomorrow morning-can not be done Appreciate Cardiology input Persantine Cardiolite tomorrow-Negative Can go home Atrial fibrillation status post PPM Rate is controlled Continue with current medications DIASTOLIC HEART FAILURE No acute symptoms and no CHF Will hold Lasix Continue Lasix a s an OP Chronic kidney disease with YISEL Creatinine slightly elevated We will hold Lasix and monitor PRP DIABETES TYPE 2 We will put her on sliding scale coverage with blood sugar checkup HYPERTENSION Continue current medication COPD No acute symptoms continue with current inhalers GI PROPHYLAXIS With PPI DVT PROPHYLAXIS Has been on Coumadin CODE STATUS: Full Discharge home today Total time spent on discharge = 35 minutes This includes examination of the patient, discharge planning, medication reconciliation, and communication with other providers. Discharge Instructions Date of Service February 24, 2018. Admission Reason for Admission: Chest Pain Discharge Discharge Diagnosis / Problem: Chest pain,No ACS-Negative Stress test Discharge Goals Goal(s): Prevent Disease Progression Activity Recommendations Activity Limitations: resume your previous activity . Instructions / Follow-Up Instructions / Follow-Up Dr Manriquez on 03/01/18 at 11:15 AM.Please keep usual Follow up appt with cardiology Current Hospital Diet Patient's current hospital diet: Diabetes Type 2 Diet, AHA Diet (Heart Healthy) Discharge Diet Recommended Diet: AHA Diet (Heart Healthy), Diabetes Type 2 Diet Pending Studies Studies pending at discharge: no Laboratory Results Lipid Panel Test 5/17/18 05:49 Range/Units Triglycerides Level 122 0-150 mg/dl Cholesterol Level 162 0-200 mg/dl HDL Cholesterol 55 mg/dl Cholesterol/HDL Ratio 2.9 LDL Cholesterol, Calculated 83 mg/dl Medical Emergencies . Who to Call and When: Medical Emergencies: If at any time you feel your situation is an emergency, please call 911 immediately. . Non-Emergent Contact Non-Emergency issues call your: Primary Care Provider . Past History Medical & Surgical History: (1) Hypertension (2) Chest pain (3) Anticoagulated on Coumadin (4) Atrial fibrillation (5) COPD exacerbation (6) Asthma exacerbation (7) CHF (congestive heart failure) (8) back surgery (9) Extraction of cataract (10) Appendectomy . "Provider Documentation" section prepared by Suellen Rojo. . <Electronically signed by Suellen Rojo M.D.> Signed: 02/24/18 [id number] Additional Copies To Mary Manriquez D.O.
== END 2018-02-24 17:15 | disposition home or self-care (01) | DRG 206 ==
LOC: C.EDB 13:36 → C.2E 17:45 → ENRESERV 17:59 → OBSVTOIN 02-23 16:18
PROVIDERS: ADMIT Internal Medicine; ATTEND Internal Medicine
DX: M94.0 Chondrocostal junction syndrome [Tietze] (principal); I50.32 Chronic diastolic (congestive) heart failure; N17.9 Acute kidney failure, unspecified; E11.22 Type 2 diabetes mellitus with diabetic chronic kidney disease; I11.0 Hypertensive heart disease with heart failure; E78.5 Hyperlipidemia, unspecified; J45.909 Unspecified asthma, uncomplicated; I48.91 Unspecified atrial fibrillation; J44.9 Chronic obstructive pulmonary disease, unspecified; E66.9 Obesity, unspecified; E03.9 Hypothyroidism, unspecified; N18.9 Chronic kidney disease, unspecified; Z98.49 Cataract extraction status, unspecified eye; Z68.39 Body mass index [BMI] 39.0-39.9, adult; Z95.0 Presence of cardiac pacemaker; Z79.01 Long term (current) use of anticoagulants; Z88.0 Allergy status to penicillin; Z83.3 Family history of diabetes mellitus; Z80.9 Family history of malignant neoplasm, unspecified; Z82.49 Family history of ischemic heart disease and other diseases of the circulatory system

== ENCOUNTER 2018-05-25 05:59 | Inpatient (IN) | payer OTHER, MEDICARE ==
[2018-05-25] VITALS (8 sets, daily range): BP systolic 125–227; BP diastolic 62–112; PULSE 59–72; TEMP 36.6–37.1; O2SAT 91–100; Ht 149.9 cm; Wt 84.9 kg
[~2018-05-25] VITALS: Ht 149.9 cm; Wt 84.9 kg
[~2018-05-25 05:59] MED LIST changes: -FURO-85 PO; +FURO40TA3 PO; +LISI40TA3 PO; -LSN40 PO; -SITA25TA PO; +SITA50TA PO
--- NOTE | 2018-05-25 06:20 | EMERGENCY ROOM VISIT NOTE ---
History First contact with patient: 06:04 Chief Complaint: SHORTNESS OF BREATH Stated Complaint: SHORT OF BREATH Nursing Triage Summary: Pt c/o increased shortness of breath over the past couple days, wasn't able to sleep today. Pt c/o dry cough. Pt noticed an event of chest pressure on arrival of EMS. Increased while sitting up. History of Present Illness The patient is a 83 year old female who presents to the Emergency Room with complaints of worsening shortness of breath of the last several days. Patient states breathing is only difficult with movement and exertion. States at rest she feels as though her breathing is normal. Patient states she does have a chronic nonproductive cough. She states this is not changed with the worsening trouble breathing last several days. Patient states she has had an episode like this in the past, believes it was related to her heart. Family member at bedside states she has previously had congestive heart failure that presented similarly. 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 Clement, is unsure when she last saw him but thinks she is "due". Patient states she has had her pacemaker in for approximately a year. Patient denies any recent change in activity, change in diet, change in medications. Patient states she does take a diuretic daily, and has additional orders to use it twice a day as needed. Patient does weigh herself daily and states that the weights are sent directly to the hospital. States she has not had significant weight gain in the last several days. Patient denies any increased lower extremity swelling. Patient states she is not on a fluid restricted diet. Patient states she currently does not have any chest pain, although EMS reported she had some mild central chest discomfort when they first picked her up but it seemed to resolve en route. Patient does have a prior history of asthma/COPD. States she has been using her inhalers as prescribed, has not been using her rescue inhaler more frequently. Review of Systems See HPI for pertinent positives & negatives. A total of 10 systems reviewed and were otherwise negative. Past Medical/Surgical History Medical Problems: (1) Asthma (2) Asthma exacerbation (3) Atrial fibrillation (4) CHF (congestive heart failure) (5) COPD exacerbation (6) Diabetes (7) Hypertensive urgency (8) Respiratory distress (9) Respiratory failure (10) Shoulder pain, left (11) Vomiting Surgical Problems: (1) Appendectomy (2) back surgery (3) Extraction of cataract Family History Cancer Diabetes mellitus Heart disease Hypertension Social History Smoking Status: Never Smoker Alcohol Use: none Drug Use: none Marital Status: Housing Status: lives with family Occupation Status: retired Current/Historical Medications Scheduled Budesonide/Formoterol Fumarate (Symbicort 160/4.5 Inhaler ), 2 PUFFS INH BID Diltiazem Hcl Ext Rel (Tiazac), 240 MG PO QAM Furosemide (Lasix), 40 MG PO DAILY Levothyroxine Sodium (Levothyroxine Sodium), 75 MCG PO DAILY Lisinopril (Lisinopril), 40 MG PO QAM Magnesium Oxide (Mag-Ox), 400 MG PO BID Metoprolol Succ (Toprol Xl) (Toprol-Xl ), 100 MG PO BID Pantoprazole (Protonix), 40 MG PO QAM Polyethylene Glycol 3350 (Miralax), 17 GM PO DAILY Potassium Chloride (Micro-K Ext Rel), 10 MEQ PO BID Sitagliptin Phosphate (Januvia), 50 MG PO QAM Warfarin Sod (Jantoven), 5 MG PO 6XWK Warfarin Sod (Jantoven), 2.5 MG PO WK Scheduled PRN Acetaminophen (Tylenol), 500 MG PO Q4 PRN for Pain Azithromycin (Zithromax), 250 MG PO DAILY PRN for RESCUE KIT Docusate Sodium (Docusate Sodium), 100 MG PO BID PRN for constipation Prednisone (Prednisone Tab), 20 MG PO UD PRN for RESCUE KIT Physical Exam Vital Signs Date Time Temp Pulse Resp B/P (MAP) Pulse Ox O2 Delivery O2 Flow Rate FiO2 05/25/18 08:00 62 18 156/81 97 Nasal Cannula 2.0 05/25/18 07:59 60 05/25/18 06:52 60 22 159/87 96 Nasal Cannula 2.0 05/25/18 06:48 88 Room Air 05/25/18 06:42 60 20 161/92 94 Room Air 05/25/18 06:08 92 Room Air 05/25/18 06:07 63 05/25/18 06:03 36.5 67 20 185/105 92 Room Air Physical Exam GENERAL: alert, well appearing, well nourished, no distress, non-toxic EYE EXAM: normal conjunctiva, PERRL and EOM's grossly intact OROPHARYNX: no exudate, no erythema, lips, buccal mucosa, and tongue normal and mucous membranes are moist NECK: supple, no nuchal rigidity, no adenopathy, non-tender LUNGS: Diminished breath sounds bilaterally. Normal chest wall mechanics, fine bibasilar rales, no rhonchi or wheezing HEART: no murmurs, S1 normal and S2 normal, pacemaker palpable left anterior superior chest wall and well-healed ABDOMEN: abdomen soft, non-tender, normo-active bowel sounds, no masses, no rebound or guarding. BACK: Back is symmetrical on inspection and there is no deformity, no midline tenderness, no CVA tenderness. SKIN: no rashes and no bruising UPPER EXTREMITIES: upper extremities are grossly normal. Normal pulses, full range of motion. LOWER EXTREMITIES: No pitting edema. Normal pulses, full range of motion. NEURO EXAM: Normal sensorium, cranial nerves II-XII grossly intact, normal speech, no gross weakness of arms, no gross weakness of legs. Gross sensation intact. Medical Decision & Procedures ER Provider Diagnostic Interpretation: [~ rep ct add3]] CHEST ONE VIEW PORTABLE CLINICAL HISTORY: 83 years-old Female presenting with sob. TECHNIQUE: Portable upright AP view of the chest was obtained. COMPARISON: 02/22/2018. FINDINGS: Left subclavian pacer with lead to the right ventricular apex. Atherosclerosis of the aortic arch. Cardiac silhouette moderately enlarged, unchanged. Pulmonary vascular prominence. Diffusely coarsened lung markings. No focal opacity. Prominence of the right paratracheal region likely mediastinal fat and due to slight LATA rotation. Trace bilateral pleural effusions. No pneumothorax. Degenerative changes of the right shoulder and spine. IMPRESSION: 1. Cardiomegaly with volume overload/congestive change. No ede pulmonary edema at this time. 2. Trace pleural effusions. Electronically signed by: Paul Espinoza M.D. 05/25/2018 6:52 AM Laboratory Results Test 05/25/18 06:11 RDW Standard Deviation 45.7 fL (36.4-46.3) RDW Coefficient of Variation 16.7 % (11.5-14.5) White Blood Count 6.36 K/uL (4.8-10.8) Red Blood Count 3.86 M/uL (4.2-5.4) Hemoglobin 9.3 g/dL (12.0-16.0) Hematocrit 29.0 % (37-47) Mean Corpuscular Volume 75.1 fL (80-100) Mean Corpuscular Hemoglobin 24.1 pg (25-34) Mean Corpuscular Hemoglobin Concent 32.1 g/dl (32-36) Platelet Count 254 K/uL (130-400) Mean Platelet Volume 9.3 fL (7.4-10.4) Neutrophils (%) (Auto) 62.0 % Lymphocytes (%) (Auto) 20.0 % Monocytes (%) (Auto) 14.9 % Eosinophils (%) (Auto) 2.5 % Basophils (%) (Auto) 0.3 % Neutrophils # (Auto) 3.94 K/uL (1.4-6.5) Lymphocytes # (Auto) 1.27 K/uL (1.2-3.4) Monocytes # (Auto) 0.95 K/uL (0.11-0.59) Eosinophils # (Auto) 0.16 K/uL (0-0.5) Basophils # (Auto) 0.02 K/uL (0-0.2) Immature Granulocyte % (Auto) 0.3 % Immature Granulocyte # (Auto) 0.02 K/uL (0.00-0.02) Est Creatinine Clear Calc Drug Dose 25.3 ml/min Total Bilirubin 0.6 mg/dl (0.2-1) Aspartate Amino Transf (AST/SGOT) 24 U/L (15-37) Alanine Aminotransferase (ALT/SGPT) 24 U/L (12-78) Alkaline Phosphatase 109 U/L (45-117) Total Protein 7.2 gm/dl (6.4-8.2) Albumin 3.8 gm/dl (3.4-5.0) Globulin 3.4 gm/dl (2.5-4.0) Albumin/Globulin Ratio 1.1 (0.9-2) Lipase 385 U/L (73-393) Medications Administered Medications (Trade) Dose Ordered Sig/Hetal Route Start Time Stop Time Status Last Admin Dose Admin Albuterol/ Ipratropium (Duoneb) 3 ml NOW STAT INH 05/25/18 06:21 05/25/18 06:22 DC 05/25/18 06:23 3 ML Furosemide (Lasix Inj) 40 mg NOW STAT IV 05/25/18 06:56 05/25/18 06:57 DC 05/25/18 07:04 40 MG Acetaminophen (Tylenol Tab) 650 mg Q4H PRN PO 05/25/18 08:30 06/24/18 08:29 05/25/18 14:15 650 MG ECG Per My Interpretation Indication: SOB/dyspnea Rate (beats per minute): 68 Rhythm: other (paced) Findings: no acute ischemic change ED Course 0621: Review of EMR showed patient with a prior history of diastolic heart failure, asthma, and pacemaker placement for tachybradycardia syndrome. Patient had a stress test performed in February of this year. 0653: Discussed with pt results so far. Pt states feels slightly SOB now at rest. Pt sats on RA 88%. Pt placed on oxygen via NC @ 2 lpm. Medical Decision Prior records/ancillary studies reviewed. Triage Nursing notes reviewed. Additional history obtained from the family. The patient's history was concerning for respiratory difficulties. Differential diagnosis: Etiologies such as infections, reactive airway disease, pneumonia, pneumothorax , COPD, CHF, cardiac ischemia, pulmonary embolism, musculoskeletal, gastrointestinal, as well as others were entertained. Patient well-appearing while here at rest. Patient hemodynamic is stable throughout. Concern given patient's hypoxia here at rest and reported symptoms. My read patient's chest x-ray films showed increased interstitial markings and likely pulmonary edema compared to prior. Patient's anemia stable compared to prior values, chronic kidney disease stable compared to prior values , and BNP elevated but similar to prior levels also. No elevated troponin, I do not suspect ACS. Patient's INR therapeutic, I do not suspect PE contributing to shortness of breath. Given patient's history of diastolic congestive heart failure, reported symptoms, and exam findings today, I feel she more likely has a component of volume overload. Discussed with her all symptoms and my concerns. Patient agreeable with plan for additional evaluation and treatment at this time. Patient has previously used oxygen at home, but has not needed it in over a year since she had the pacemaker placed. Patient has been compliant measuring her weights, adhering to a low-sodium diet , and taking her furosemide as directed. Patient was given additional dose of IV furosemide in the ER. Patient had no improvement in symptoms from nebulizer treatment, I do not feel her symptoms are related to underlying asthma. Medication Reconcilliation Current Medication List: was personally reviewed by me Blood Pressure Screening Patient's blood pressure: Elevated blood pressure referred to hospitalist Consults Time Called: 0655 Consulting Physician: Yovani hospitalist Returned Call: [phone] Escudero. He will evaluate for additional management. Impression Primary Impression: Dyspnea Additional Impressions: Chest pain CKD (chronic kidney disease) Hypoxia Departure Information Dispostion Being Evaluated By Hospitalist Condition GOOD Referrals Mary Manriquez D.O. (PCP) Patient Instructions [facility] Problem Qualifiers Primary Impression: Dyspnea Dyspnea type: dyspnea on exertion Qualified Codes: R06.09 - Other forms of dyspnea Additional Impressions: Chest pain Chest pain type: unspecified Qualified Codes: R07.9 - Chest pain, unspecified CKD (chronic kidney disease) Chronic kidney disease stage: unspecified stage Qualified Codes: N18.9 - Chronic kidney disease, unspecified
[2018-05-25] MEDS ORDERED: ALBUT/IPRATROP 3MG/0.5MG NEB 3 ML VIAL INH STA (06:21)
[2018-05-25 06:23] LABS: BASO % 0.3 %; BASO ABS # 0.02 K/uL (0-0.2); EOS % 2.5 %; EOS ABS # 0.16 K/uL (0-0.5); HEMOGLOBIN 9.3 g/dL (12.0-16.0); IG# 0.02 K/uL (0.00-0.02); LYMPH ABS # 1.27 K/uL (1.2-3.4); MEAN CELL VOLUME 75.1 fL (80-100); MEAN CORPUSCULAR HEMOGLOBIN 24.1 pg (25-34); MEAN CORPUSCULAR HGB CONC 32.1 g/dl (32-36); MEAN PLATELET VOLUME 9.3 fL (7.4-10.4); MONO % 14.9 %; MONO ABS # 0.95 K/uL (0.11-0.59); NEUT ABS # 3.94 K/uL (1.4-6.5); PLATELET COUNT 254 K/uL (130-400); RED CELL DISTRIBUTION WIDTH CV 16.7 % (11.5-14.5); RED CELL DISTRIBUTION WIDTH SD 45.7 fL (36.4-46.3); WHITE BLOOD COUNT 6.36 K/uL (4.8-10.8)
[2018-05-25] MEDS ORDERED: ACET-1256 PO (06:26)
[2018-05-25] MEDS ORDERED: DOCU1TAB6 PO (06:27)
[2018-05-25] MEDS ORDERED: MOML PO (06:28)
[2018-05-25 06:30] LABS: INR 2.2 (0.9-1.1)
[2018-05-25] MEDS ORDERED: POLY335019 PO (06:30)
[2018-05-25] MEDS ORDERED: SYMIN160 INH (06:32)
[2018-05-25] MEDS ORDERED: LEVO125T5 PO (06:35)
[2018-05-25] MEDS ORDERED: LEVO75TA5 PO (06:39)
[2018-05-25 06:41] LABS: ALBUMIN 3.8 gm/dl (3.4-5.0); ALKALINE PHOSPHATASE 109 U/L (45-117); ALT/SGPT 24 U/L (12-78); AST/SGOT 24 U/L (15-37); BLOOD UREA NITROGEN 30 mg/dl (7-18); CARBON DIOXIDE 29 mmol/L (21-32); CREATININE 1.69 mg/dl (0.60-1.20); GLUCOSE 109 mg/dl (70-99); LIPASE 385 U/L (73-393); POTASSIUM 4.3 mmol/L (3.5-5.1); SODIUM 131 mmol/L (136-145); TOTAL PROTEIN 7.2 gm/dl (6.4-8.2)
--- NOTE | 2018-05-25 06:53 | DIAGNOSTIC IMAGING REPORT ---
CHEST ONE VIEW PORTABLE CLINICAL HISTORY: 83 years-old Female presenting with sob. TECHNIQUE: Portable upright AP view of the chest was obtained. COMPARISON: 02/22/2018. FINDINGS: Left subclavian pacer with lead to the right ventricular apex. Atherosclerosis of the aortic arch. Cardiac silhouette moderately enlarged, unchanged. Pulmonary vascular prominence. Diffusely coarsened lung markings. No focal opacity. Prominence of the right paratracheal region likely mediastinal fat and due to slight [place] rotation. Trace bilateral pleural effusions. No pneumothorax. Degenerative changes of the right shoulder and spine. IMPRESSION: 1. Cardiomegaly with volume overload/congestive change. No ede pulmonary edema at this time. 2. Trace pleural effusions. Electronically signed by: Paul Espinoza M.D. 05/25/2018 6:52 AM Dictated Date/Time: 05/25/2018 6:50 AM
[2018-05-25] MEDS ORDERED: FUROSEMIDE 40 MG/4 ML VIAL IV STA (06:56)
[2018-05-25] MEDS ORDERED: NITROGLYCERIN 0.4 MG SL PER TAB CHARGE SL PRN (08:30)
[2018-05-25] MEDS ORDERED: ACETAMINOPHEN 325 MG TAB PO PRN (08:30)
--- NOTE | 2018-05-25 08:37 | History and Physical ---
History & Physical Date & Time of Service: May 25, 2018 at 08:36 Chief Complaint: Short Of Breath Primary Care Physician: Mary Manriquez D.O. History of Present Illness Source: patient, family Patient is an 83-year-old female with past medical history of Afib, Diastolic CHF, CKD III, DM II, status post pacemaker, on chronic anticoagulation, COPD, HTN, hypothyroidism, hypertensive heart disease and other problems presents with progressively worsening shortness of breath on exertion since last few days. She reports a weight gain of 3 pounds in 24 hours. Also reports chronic dry cough since 2 months. She states having retrosternal chest pain, which is dull in nature, nonradiating, sudden in onset, 3/10 intensity, which lasted for a few minutes and resolved prior to ED arrival. She denies any associated dizziness, nausea, diaphoresis, aggravating and relieving factors. Patient was found to be hypoxic, 88% on RA while in ED which improved with 2 liters of oxygen supplementation. She reports chronic Orthopnea. Denies any increased leg swelling, PND. She does not follow any salt or fluid restriction diet and the family reports that she eats a lot Ice daily. She denies using her rescue inhaler more frequently that her usual. Denies any history of palpitations, wheezing, hemoptysis, fever, chills, headache, nausea, vomiting, abdominal pain , blood in stools, hematuria, diarrhea, dysuria, recent travel, sick contact, recent change in medications. Past Medical/Surgical History Medical Problems: (1) Acute bronchitis (2) Acute congestive heart failure (3) Anemia (4) Anticoagulated on Coumadin (5) Asthma (6) Asthma exacerbation (7) Atrial fibrillation (8) Atrial fibrillation (9) Blood in left ear canal (10) Bradycardia (11) Cellulitis (12) Chest pain (13) CHF (congestive heart failure) (14) CHF (congestive heart failure) (15) CHF exacerbation (16) COPD exacerbation (17) Diabetes (18) Fluid overload (19) Hypertension (20) Hypertensive urgency (21) Left ankle pain (22) Lightheadedness (23) Precordial chest pain (24) Respiratory distress (25) Respiratory failure (26) Shoulder pain, left (27) SOB (shortness of breath) (28) Supratherapeutic INR (29) Vomiting Surgical Problems: (1) Appendectomy (2) back surgery (3) Extraction of cataract Family History Cancer Diabetes mellitus Heart disease Hypertension Mother:Breast Cancer Social History Smoking Status: Never Smoker Alcohol Use: socially Drug Use: none Marital Status: Housing status: lives with family Occupational Status: retired Immunizations History of Influenza Vaccine: No Influenza Vaccine Date: Jul 11, 2005 History of Tetanus Vaccine?: UTD History of Pneumococcal: Yes Pneumococcal Date: Jul 27, 2009 History of Hepatitis B Vaccine: Unknown Allergies Coded Allergies: Penicillins (Verified Allergy, Intermediate, RASH, 05/25/18) RASH Home Medications Scheduled Budesonide/Formoterol Fumarate (Symbicort 160/4.5 Inhaler ), 2 PUFFS INH BID Diltiazem Hcl Ext Rel (Tiazac), 240 MG PO QAM Furosemide (Lasix), 40 MG PO DAILY Levothyroxine Sodium (Levothyroxine Sodium), 75 MCG PO DAILY Lisinopril (Lisinopril), 40 MG PO QAM Magnesium Oxide (Mag-Ox), 400 MG PO BID Metoprolol Succ (Toprol Xl) (Toprol-Xl ), 100 MG PO BID Pantoprazole (Protonix), 40 MG PO QAM Polyethylene Glycol 3350 (Miralax), 17 GM PO DAILY Potassium Chloride (Micro-K Ext Rel), 10 MEQ PO BID Sitagliptin Phosphate (Januvia), 50 MG PO QAM Warfarin Sod (Jantoven), 5 MG PO 6XWK Warfarin Sod (Jantoven), 2.5 MG PO WK Scheduled PRN Acetaminophen (Tylenol), 500 MG PO Q4 PRN for Pain Azithromycin (Zithromax), 250 MG PO DAILY PRN for RESCUE KIT Docusate Sodium (Docusate Sodium), 100 MG PO BID PRN for constipation Prednisone (Prednisone Tab), 20 MG PO UD PRN for RESCUE KIT Review of Systems See HPI for pertinent positives & negatives. A total of 10 systems reviewed and were otherwise negative. Physical Exam Vital Signs Date Time Temp Pulse Resp B/P (MAP) Pulse Ox O2 Delivery O2 Flow Rate FiO2 05/25/18 08:00 62 18 156/81 97 Nasal Cannula 2.0 05/25/18 07:59 60 05/25/18 06:52 60 22 159/87 96 Nasal Cannula 2.0 05/25/18 06:48 88 Room Air 05/25/18 06:42 60 20 161/92 94 Room Air 05/25/18 06:08 92 Room Air 05/25/18 06:07 63 05/25/18 06:03 36.5 67 20 185/105 92 Room Air General Appearance: WD/WN, no apparent distress Head: normocephalic, atraumatic Eyes: normal inspection, PERRL, EOMI, sclerae normal ENT: normal ENT inspection, hearing grossly normal Neck: supple, trachea midline Respiratory/Chest: chest non-tender, no respiratory distress, no accessory muscle use, + decreased breath sounds, + crackles (basal) Cardiovascular: regular rate, rhythm, no murmur, + pertinent finding (trace pedal edema) Abdomen/GI: normal bowel sounds, non tender, soft Back: normal inspection Extremities/Musculoskelatal: normal inspection, + pedal edema (Trace) 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, no motor/sensory deficits, alert, normal mood/affect, oriented x 3 Skin: normal color, warm/dry Diagnostics Laboratory Results Results Past 24 Hours Test 05/25/18 06:11 Range/Units White Blood Count 6.36 4.8-10.8 K/uL Red Blood Count 3.86 4.2-5.4 M/uL Hemoglobin 9.3 12.0-16.0 g/dL Hematocrit 29.0 37-47 % Mean Corpuscular Volume 75.1 80-100 fL Mean Corpuscular Hemoglobin 24.1 25-34 pg Mean Corpuscular Hemoglobin Concent 32.1 32-36 g/dl Platelet Count 254 130-400 K/uL Mean Platelet Volume 9.3 7.4-10.4 fL Neutrophils (%) (Auto) 62.0 % Lymphocytes (%) (Auto) 20.0 % Monocytes (%) (Auto) 14.9 % Eosinophils (%) (Auto) 2.5 % Basophils (%) (Auto) 0.3 % Neutrophils # (Auto) 3.94 1.4-6.5 K/uL Lymphocytes # (Auto) 1.27 1.2-3.4 K/uL Monocytes # (Auto) 0.95 0.11-0.59 K/uL Eosinophils # (Auto) 0.16 0-0.5 K/uL Basophils # (Auto) 0.02 0-0.2 K/uL RDW Standard Deviation 45.7 36.4-46.3 fL RDW Coefficient of Variation 16.7 11.5-14.5 % Immature Granulocyte % (Auto) 0.3 % Immature Granulocyte # (Auto) 0.02 0.00-0.02 K/uL Prothrombin Time 23.2 9.0-12.0 SECONDS Prothromb Time International Ratio 2.2 0.9-1.1 Sodium Level 131 136-145 mmol/L Potassium Level 4.3 3.5-5.1 mmol/L Chloride Level 95 98-107 mmol/L Carbon Dioxide Level 29 21-32 mmol/L Anion Gap 7.0 3-11 mmol/L Blood Urea Nitrogen 30 7-18 mg/dl Creatinine 1.69 0.60-1.20 mg/dl Est Creatinine Clear Calc Drug Dose 25.3 ml/min Estimated GFR () 32.0 Estimated GFR (Non- 27.6 BUN/Creatinine Ratio 17.9 10-20 Random Glucose 109 70-99 mg/dl Calcium Level 9.0 8.5-10.1 mg/dl Magnesium Level 2.2 1.8-2.4 mg/dl Total Bilirubin 0.6 0.2-1 mg/dl Aspartate Amino Transf (AST/SGOT) 24 15-37 U/L Alanine Aminotransferase (ALT/SGPT) 24 12-78 U/L Alkaline Phosphatase 109 45-117 U/L Troponin I < 0.015 0-0.045 ng/ml Pro-B-Type Natriuretic Peptide 4526 0-1800 pg/ml Total Protein 7.2 6.4-8.2 gm/dl Albumin 3.8 3.4-5.0 gm/dl Globulin 3.4 2.5-4.0 gm/dl Albumin/Globulin Ratio 1.1 0.9-2 Lipase 385 73-393 U/L Diagnostic Radiology CXR: 1. Cardiomegaly with volume overload/congestive change. No ede pulmonary edema at this time. 2. Trace pleural effusions. EKG EKG: Ventricular Paced Rhythm, QTC: 484 Impression Assessment and Plan Acute on chronic Diastolic CHF exacerbation Hypoxia Multivalvular Heart disease CXR showed: Cardiomegaly with volume overload/congestive change. No ede pulmonary edema at this time. Trace pleural effusions. Last ECHO in Jun 2017: EF:60-65%, Left atrium severely dilated, Right atrium moderately dilated, Trace AR, Moderate MR, Mild TR Hold PO diuretics Start IV Lasix 40mg BID Update ECHO Daily weight, I/Os, fluid restriction Low sodium diet Oxygen support PRN Monitor renal function/electrolytes Cardiology consulted Pacemaker Interrogation Chest Pain: Currently resolved Last Stress test in February 2018 EKG: no signs of acute Ischemia Initial troponin:Negative CXR:No pneumonia INR in therapeutic range Trend serial cardiac enzymes, repeat EKG in AM Oxygen PRN Atrial fibrillation Rate controlled Monitor electrolytes continue metoprolol, Cardizem Monitor INR :2.2 continue Coumadin CKD III Baseline Cr around 1.5 Cr: 1.6 today monitor renal function while on IV diuretics DM II Update A1C Hold Home meds Start ISS, Basal Insulin monitor BGs Chronic Anemia Hb at baseline Anemia work up ordered check FOBT COPD No signs of Exacerbation continue home inhalers HTN Stable Continue home meds monitor Hypothyroidism Check STH, Free T4 Continue Levothyroxine DVT Px: On Coumadin Code Status: Full Code Disposition: Monitor in tele Resuscitation Status VTE Prophylaxis Will order VTE Prophylaxis: Yes
[2018-05-25] MEDS ORDERED: GLUCAGON FOR INJ 1 MG VIAL SQ PRN (09:00)
[2018-05-25] MEDS ORDERED: GLUCOSE 10 TABS/TUBE PO PRN (09:00)
[2018-05-25] MEDS ORDERED: DOCUSATE SODIUM 100 MG CAP PO PRN (09:00)
[2018-05-25] MEDS ORDERED: POTASSIUM CHLORIDE 10 MEQ TABCR PO SCH (09:00)
[2018-05-25] MEDS ORDERED: DEXTROSE 50% 50 ML SYR IV PRN (09:00)
[2018-05-25] MEDS ORDERED: CARBOHYDRATES FOR HYPOGLYCEMIA PO PRN (09:00)
[2018-05-25] MEDS ORDERED: GLUCOSE 40% GEL 15 GM TUBE PO PRN (09:00)
[2018-05-25] MEDS ORDERED: SPIRONOLACTONE 25 MG TAB PO ONE (10:45)
[2018-05-25] MEDS: MAGNESIUM OXIDE 400 MG TAB PO SCH ×2 (10:47→21:19)
[2018-05-25] MEDS: POLYETHYLENE (MIRALAX) 17 GM PACK PO SCH (10:47)
[2018-05-25] MEDS: PANTOprazole SOD 40 MG TAB PO SCH (10:47)
[2018-05-25] MEDS: LISINOPRIL 40 MG TAB PO SCH (10:47)
[2018-05-25] MEDS: BUDESONIDE/FORMOTEROL FUMARATE 160/4.5 60 PUFFS/INHALER INH SCH ×2 (10:48→21:18)
[2018-05-25] MEDS: METOPROLOL SUCC 50MG EXT REL TAB PO SCH ×2 (10:48→21:19)
[2018-05-25] MEDS: LEVOTHYROXINE 75 MCG TAB PO SCH (10:48)
[2018-05-25] MEDS: DILTIAZEM HCL 120 MG EXT REL CAP PO SCH (10:48)
[2018-05-25] MEDS: INSULIN GLARGINE SOLOSTAR 100 UNITS/ML 3 ML PEN SC SCH ×2 (10:50→21:22)
[2018-05-25] MEDS ORDERED: PERFLUTREN LIPID MICROSPHERE (DEFINITY) IV ONE (10:53)
--- NOTE | 2018-05-25 11:41 | ECHOCARDIOGRAM REPORT ---
*NOTICE TO RECEIVING [employer] [facility] This information is strictly Confidential and protected under [place] law. [place] law prohibits you from making any further disclosure of this information unless further disclosure is expressly permitted by the written consent of the person to whom it pertains or is authorized by law. A general authorization for the release of medical or other information is not sufficient for this purpose. Hospital accepts no responsibility if the information is made available to any other person, INCLUDING THE PATIENT. Interpretation Summary * Name: STACY GANDHI Study Date: 05/25/2018 10:19 AM BP: 156/81 mmHg * Patient Location: [facility] HR: 62 * : 1935 (M/d/yyyy) Gender: Female Height: 59 in * Age: 83 yrs Ethnicity: CA Weight: 207 lb * Ordering Physician: Christian Martin * Referring Physician: Self, Referred * Performed By: Caitlin Goetz RDCS * * Reason For Study: CHF * BSA: 1.9 m2 * -- Conclusions -- * Normal LV chamber size and wall thickness. * Normal LV systolic function, EF 60-65%. * Apical wall motion abnormality may reflect pacemaker activation, otherwise, no segmental left ventricular wall motion abnormalities are noted. * Aortic valve sclerosis mild, without significant aortic valvular stenosis. * Trace mitral regurgitation. * Severe left atrial enlargement. Procedure Details * A complete two-dimensional transthoracic echocardiogram was performed (2D, M-mode, Doppler and color flow Doppler). * A contrast injection of Definity was performed to improve assessment of LV function. * Contrast was injected into an intravenous site in the left arm. * One vial of Definity ultrasound contrast was diluted in normal saline to a total volume of 10 ml. A total of '2' ml of solution was administered during imaging. * Lot # [id number] of Definity utilized for procedure. * Expiration date APR 27. * The attending nurse who injected the contrast agent was Gretchen Augustin RN. Left Ventricle * The left ventricle is normal in size. * There is normal left ventricular wall thickness. * Left ventricular systolic function is normal. * No segmental left ventricular wall motion abnormalities are noted. * Ejection Fraction = 60-65%. * Apical wall motion abnormality may reflect pacemaker activation. Right Ventricle * The right ventricle is not well visualized. * There is a pacemaker lead in the right ventricle. * The right ventricular systolic function is reduced as assessed by tricuspid annular plane systolic excursion (TAPSE) (TAPSE <1.6 cm). Atria * The left atrium is severely dilated. * Right atrium not well visualized. Mitral Valve * There is mild mitral annular calcification. * There is no mitral valve stenosis. * There is trace mitral regurgitation. Tricuspid Valve * The tricuspid valve is normal in structure and function. Aortic Valve * The aortic valve is trileaflet. * Aortic valve sclerosis mild, without significant aortic valvular stenosis. * There is no significant aortic regurgitation. Pulmonic Valve * The pulmonary valve is not well seen, but the Doppler examination is normal without significant regurgitation or stenosis. Great Vessels * The aortic root and proximal ascending aorta are normal sized. Pericardium/Pleural * There is no pericardial effusion. MMode 2D Measurements and Calculations IVSd 0.86 cm LVIDd 4.7 cm LVIDs 3.2 cm LVPWd 0.97 cm IVS/LVPW 0.89 FS 33.1 % EDV(Teich) 103.2 ml ESV(Teich) 39.5 ml EF(Teich) 61.7 % EDV(cubed) 104.9 ml ESV(cubed) 31.3 ml EF(cubed) 70.1 % LV mass(C)d 146.6 grams LV mass(C)dI 78.3 grams/m\S\2 SV(Teich) 63.7 ml SI(Teich) 34.0 ml/m\S\2 SV(cubed) 73.6 ml SI(cubed) 39.3 ml/m\S\2 Ao root diam 3.5 cm Ao root area 9.9 cm\S\2 ACS 2.0 cm LA dimension 4.3 cm asc Aorta Diam 2.6 cm LA/Ao 1.2 LVOT diam 1.9 cm LVOT area 2.9 cm\S\2 LVAd ap4 26.3 cm\S\2 LVLd ap4 6.6 cm EDV(MOD-sp4) 85.0 ml EDV(sp4-el) 88.1 ml LVAs ap4 14.1 cm\S\2 LVLs ap4 5.6 cm ESV(MOD-sp4) 29.9 ml ESV(sp4-el) 30.1 ml EF(MOD-sp4) 64.9 % EF(sp4-el) 65.8 % LVAd ap2 31.3 cm\S\2 LVLd ap2 6.7 cm EDV(MOD-sp2) 116.8 ml EDV(sp2-el) 124.8 ml LVAs ap2 16.7 cm\S\2 LVLs ap2 5.9 cm ESV(MOD-sp2) 38.8 ml ESV(sp2-el) 40.0 ml EF(MOD-sp2) 66.8 % EF(sp2-el) 68.0 % LVLd %diff 0.23 % EDV(MOD-bp) 100.9 ml LVLs %diff 5.0 % ESV(MOD-bp) 34.7 ml EF(MOD-bp) 65.6 % SV(MOD-sp4) 55.2 ml SI(MOD-sp4) 29.5 ml/m\S\2 SV(MOD-sp2) 78.0 ml SI(MOD-sp2) 41.7 ml/m\S\2 SV(MOD-bp) 66.2 ml SI(MOD-bp) 35.4 ml/m\S\2 SV(sp4-el) 58.0 ml SI(sp4-el) 31.0 ml/m\S\2 SV(sp2-el) 84.8 ml SI(sp2-el) 45.3 ml/m\S\2 Doppler Measurements and Calculations MV E max babak 151.5 cm/sec MV dec time 0.24 sec Ao V2 max 125.8 cm/sec Ao max PG 6.3 mmHg Ao max PG (full) 2.8 mmHg SERGIO(V,A) 2.1 cm\S\2 SERGIO(V,D) 2.1 cm\S\2 AI max babak 376.0 cm/sec AI max PG 56.6 mmHg AI dec slope 111.0 cm/sec\S\2 AI P1/2t 991.9 msec LV V1 max PG 3.5 mmHg LV V1 max 93.9 cm/sec MR max babak 446.4 cm/sec MR max PG 79.7 mmHg MR mean babak 352.0 cm/sec MR mean PG 56.6 mmHg MR VTI 164.6 cm PA V2 max 98.9 cm/sec PA max PG 3.9 mmHg PA acc slope 724.7 cm/sec\S\2 PA acc time 0.08 sec PI max babak 211.2 cm/sec PI max PG 17.8 mmHg PI dec slope 158.8 cm/sec\S\2 PI P1/2t 389.5 msec TR max babak 274.1 cm/sec PA pr(Accel) 41.5 mmHg
[2018-05-25] MEDS: INSULIN ASPART 100 UNITS/ML 3 ML PEN SC SCH ×3 (12:02→21:00)
[2018-05-25 14:37] LABS: HEMOGLOBIN A1C 6.8 % (4.5-5.6)
[2018-05-25] MEDS: WARFARIN SOD 5 MG TAB PO SCH (15:56)
[2018-05-25] MEDS: FUROSEMIDE INJ 40 MG in SYRINGE 0 ML IV SCH (15:57)
--- NOTE | 2018-05-25 16:53 | CARDIOLOGY CONSULTATION ---
DATE OF CONSULTATION: 05/25/2018 CONSULTATION REQUESTED BY: Christian Martin MD REASON FOR CONSULTATION: Acute decompensated diastolic heart failure. HISTORY OF PRESENT ILLNESS: Mrs. May is a very pleasant 83-year-old woman who normally follows with myself as an outpatient for history of diastolic dysfunction and persistent atrial fibrillation. She presented to [facility] early in the a.m. of 05/25/2018 with a complaint of shortness of breath. The patient states her symptoms started 1 day ago. She states that when she got up yesterday morning, she was seemed to be in her normal state of health, but then when she got up to walk, she notes that she became short of breath. Progressively over the next 24 hours, her breathing significantly worsened to the point where she is unable to breathe at rest and she was unable to sleep last night and unable to lay down flat without catching her breath. This was associated with some chest heaviness, but she denied any associated palpitations, lightheadedness, dizziness, or syncope. She has been compliant with all of her medications at home. She has been avoiding salt. However, when she came into the Emergency Department, she was found to be volume overloaded. She was given a dose of diuretics, and after her first dose of Lasix, she states her chest heaviness is already resolved and her breathing seems to have eased a bit. Of note, the patient has had multiple previous episodes of decompensated diastolic heart failure in the past. PAST SURGICAL HISTORY: 1. 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 2. 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 3. Upper endoscopy. 4. Knee surgery. 5. Bronchoscopy. 6. Hemilaminectomy. 7. Appendectomy. 8. Hysterectomy. 9. Tonsillectomy. 10. Mastoidectomy. 11. Hernia repair. MEDICAL ILLNESSES: 1. Persistent atrial fibrillation, rate controlled on chronic Coumadin therapy. 2. Tachybrady syndrome, status post single lead permanent pacemaker placement. 3. 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 4. Diabetes. 5. Diastolic dysfunction with normal LV systolic function. 6. Asthma. 7. Hypertension. 8. Hyperlipidemia. 9. Carotid occlusive disease. 10. Elevated BMI. 11. Hypothyroidism. FAMILY HISTORY: Noncontributory. SOCIAL HISTORY: Denies any alcohol, tobacco or recreational drug use. She lives at home and she is retired. REVIEW OF SYSTEMS: As per HPI. All other review of systems reviewed and negative at this time. ALLERGIES: PENICILLIN. MEDICATIONS AN OUTPATIENT: 1. Lisinopril 40 mg daily. 2. Metoprolol succinate 100 mg b.i.d. 3. Coumadin as directed by the Coumadin clinic. 4. Lasix 40 mg q.a.m. with an extra dose q.p.m. as needed. 5. Diltiazem 240 mg daily. 6. Magnesium oxide b.i.d. 7. Januvia daily. 8. Potassium chloride daily. 9. Levoxyl daily. PHYSICAL EXAMINATION: VITALS: Temperature is 37, pulse 69, respiratory rate 12, blood pressure 167/100. GENERAL: Awake, alert, oriented x3 in no acute distress. HEENT: Normocephalic, atraumatic. Pupils equal, round, and reactive to light and accommodation. Extraocular muscles intact. Anicteric sclerae. Moist mucous membranes. NECK: No JVD, no bruit. CARDIOVASCULAR: Irregularly irregular. I do not appreciate any murmurs, rubs or gallops. PULMONARY: With diffuse rhonchi, but no rales or wheezing. ABDOMEN: Bowel sounds x4, soft. No rebound, guarding, or tenderness. No organomegaly. EXTREMITIES: +1 bilateral lower extremity pitting edema. No clubbing or cyanosis. +2 pedal pulses bilaterally. SKIN: Warm and dry. TEST RESULTS AND LABORATORY STUDIES OF SIGNIFICANCE: Sodium 131, potassium 4.3, BUN 30, creatinine 1.7. ProBNP of 4500. Troponin negative. INR of 2.2. A 2D echocardiogram performed today was read as normal LV chamber size and wall thickness, normal LV systolic function, EF 60-65%. Apical wall motion abnormality reflective of pacemaker activation. Otherwise, no segmental left ventricular wall motion abnormalities were noted. Mild aortic valve sclerosis without stenosis, trace mitral regurgitation, severe left atrial enlargement. IMPRESSION: 1. Acute decompensated diastolic heart failure. 2. Hypertension, uncontrolled. 3. Persistent atrial fibrillation, rate controlled on chronic Coumadin therapy with a therapeutic INR. 4. History of tachybrady syndrome, status post permanent pacemaker placement. RECOMMENDATIONS: Mrs. May was counseled once again that she does appear to be volume overload, so at this point, we will start to diurese. We will continue to diurese her with Lasix 40 mg IV b.i.d. At the same time, her blood pressure is up today, which is unusual for her. So, I will also add spironolactone 25 mg daily and discontinue her potassium supplementation. Otherwise, she will continue her current doses of metoprolol, lisinopril and Cardizem. Should her blood pressure remain elevated, consideration could be given to a trial of either hydralazine or terazosin. My hope is with diuresis, it will improve. Otherwise, she will be maintained on telemetry monitoring for now.
[2018-05-25] MEDS ORDERED: FERROUS SULFATE 325 MG TAB PO ONE (18:42)
[2018-05-26] VITALS (7 sets, daily range): BP systolic 121–179; BP diastolic 67–88; PULSE 60–79; TEMP 36.6–37.4; O2SAT 90–99
[2018-05-26 05:49] LABS: HEMATOCRIT 27.8 % (37-47); HEMOGLOBIN 8.7 g/dL (12.0-16.0); MEAN CORPUSCULAR HEMOGLOBIN 23.8 pg (25-34); MEAN CORPUSCULAR HGB CONC 31.3 g/dl (32-36); MEAN PLATELET VOLUME 9.9 fL (7.4-10.4); PLATELET COUNT 260 K/uL (130-400); RED CELL DISTRIBUTION WIDTH CV 16.8 % (11.5-14.5); RED CELL DISTRIBUTION WIDTH SD 46.4 fL (36.4-46.3); WHITE BLOOD COUNT 7.81 K/uL (4.8-10.8)
[2018-05-26 06:11] LABS: INR 2.1 (0.9-1.1)
[2018-05-26] MEDS: LEVOTHYROXINE 75 MCG TAB PO SCH (06:29)
[2018-05-26 06:35] LABS: CALCIUM 8.5 mg/dl (8.5-10.1); CREATININE 1.58 mg/dl (0.60-1.20); POTASSIUM 3.8 mmol/L (3.5-5.1)
--- NOTE | 2018-05-26 07:52 | Clinical Documentation Query ---
CLINICAL DOCUMENTATION QUERY 83 yo female admitted with acute diastolic CHF presented with worsening SOB and 88% sat on arrival. Patient was treated with O2 at 2L with relief. In your clinical opinion is this patient being managed for: ( X ) Acute respiratory failure with hypoxia, resolved ( ) Not Agree ( ) Other explanation of clinical findings (No explanation is considered a No Response) ( ) Unable to determine ( ) Need to Discuss (Phone CDS or qliq) (No discussion is considered a No Response) The medical record reflects the following clinical findings, treatment, and risk factors. Clinical Indicators: As above Treatment: O2, SPO2 Risk Factors: Age, hypoxia, hx CHF, afib, COPD Please clarify and document your clinical opinion in the progress notes and discharge summary. Terms such as "probable", "suspected", "likely", "questionable", "possible", or "still to be ruled out" are acceptable. IF IN AGREEMENT, YOU MUST DOCUMENT ABOVE DIAGNOSTIC STATEMENT IN DAILY PROGRESS NOTES AND DISCHARGE SUMMARY. This document is not part of the patient's record. Thank You, Katherine Quintanilla RN, MSN [phone]
[2018-05-26] MEDS: FUROSEMIDE INJ 40 MG in SYRINGE 0 ML IV SCH ×2 (08:01→16:58)
[2018-05-26] MEDS: LISINOPRIL 40 MG TAB PO SCH (08:02)
[2018-05-26] MEDS: METOPROLOL SUCC 50MG EXT REL TAB PO SCH ×2 (08:02→20:29)
[2018-05-26] MEDS: POLYETHYLENE (MIRALAX) 17 GM PACK PO SCH (08:02)
[2018-05-26] MEDS: MAGNESIUM OXIDE 400 MG TAB PO SCH ×2 (08:02→20:28)
[2018-05-26] MEDS: DILTIAZEM HCL 120 MG EXT REL CAP PO SCH (08:02)
[2018-05-26] MEDS: PANTOprazole SOD 40 MG TAB PO SCH (08:02)
[2018-05-26] MEDS: BUDESONIDE/FORMOTEROL FUMARATE 160/4.5 60 PUFFS/INHALER INH SCH ×2 (08:03→20:28)
[2018-05-26] MEDS: SPIRONOLACTONE 25 MG TAB PO SCH (08:03)
[2018-05-26] MEDS: INSULIN ASPART 100 UNITS/ML 3 ML PEN SC SCH ×4 (08:04→20:29)
[2018-05-26] MEDS: INSULIN GLARGINE SOLOSTAR 100 UNITS/ML 3 ML PEN SC SCH ×2 (08:07→20:36)
[2018-05-26] MEDS ORDERED: FERROUS SULFATE 325 MG TAB PO SCH (09:00)
--- NOTE | 2018-05-26 10:51 | Cardiology Follow-Up ---
Subjective Subjective Date of Service: May 26, 2018. Pt evaluation today including: conversation w/ patient, physical exam, chart review, lab review, review of studies, review of inpatient medication list Additional Details: Pt seen and examined, states that she's feeling better but breathing not yet back to baseline. Denies cp, palpitations, lightheadedness or dizziness. LE edema improving. Tele reviewed: afib rate controlled. Problem List Medical Problems: (1) Acute congestive heart failure Status: Acute (2) Anemia Status: Acute (3) Atrial fibrillation Status: Acute (4) Bradycardia Status: Acute (5) Chest pain Status: Acute (6) CHF (congestive heart failure) Status: Acute (7) CKD (chronic kidney disease) Status: Acute (8) Dyspnea Status: Acute (9) Fluid overload Status: Acute (10) Hypoxia Status: Acute (11) Left ankle pain Status: Acute (12) Lightheadedness Status: Acute (13) Precordial chest pain Status: Acute (14) SOB (shortness of breath) Status: Acute Review of Systems Respiratory: + shortness of breath, + dyspnea on exertion, No see HPI, No cough , No sputum, No wheezing, No dyspnea at rest, No hemoptysis, No problem reported Cardiac: No see HPI, No chest pain, No orthopnea, No PND, No edema, No claudication, No palpitations, No problem reported Objective Vital Signs Last Vital Signs Documentation Date Time Temp Pulse Resp B/P (MAP) Pulse Ox O2 Delivery O2 Flow Rate FiO2 05/26/18 08:00 Nasal Cannula 2.0 05/26/18 06:43 37.4 60 18 145/79 (101) 90 Physical Exam: General Appearance: WD/WN, no apparent distress Eyes: bilateral eyes normal inspection, bilateral eyes PERRL, bilateral eyes EOMI ENT: normal ENT inspection, hearing grossly normal, pharynx normal Neck: supple, no adenopathy, thyroid normal, no JVD, no carotid bruits, trachea midline Respiratory/Chest: chest non-tender, normal breath sounds, no respiratory distress, no accessory muscle use, + rhonchi Cardiovascular: no gallop, no JVD, no murmur, + irregularly irregular Abdomen: normal bowel sounds, non tender, soft, no organomegaly, no pulsatile mass Extremities: normal inspection, no calf tenderness, + pedal edema 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 acute decompensated diastolic dysfunction improving diuresing well but not yet back to baseline will cont with IV lasix for now and reassess in AM after AM dose cont spironolactone NA improving as well 2. Hypertension improved tolerating addition of spironolactone well follow K 3. afib chronic rate controlled INR therapeutic cont to monitor on tele cont strict I/O's along with daily weight on same scale
--- NOTE | 2018-05-26 14:28 | Progress Note ---
Internal Med Progress Note Date of Service: May 26, 2018. Provider Documentation: SUBJECTIVE: Seen and examined at bedside States SOB is much better today Still has dry intermittent cough Denies chest pain, dizziness Saturating well off oxygen No other complaints OBJECTIVE: Vital Signs-as noted below General Appearance: WD/WN, no apparent distress Head: normocephalic, atraumatic Eyes: normal inspection, PERRL, EOMI, sclerae normal ENT: normal ENT inspection, hearing grossly normal Neck: supple, trachea midline Respiratory/Chest: chest non-tender, no respiratory distress, no accessory muscle use, + decreased breath sounds, + crackles (basal) Cardiovascular: regular rate, rhythm, no murmur, + pertinent finding (trace pedal edema) Abdomen/GI: normal bowel sounds, non tender, soft Back: normal inspection Extremities/Musculoskelatal: normal inspection, + pedal edema (Trace) 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 ASSESSMENT & PLAN: Acute on chronic Diastolic CHF exacerbation Acute Hypoxic respiratory failure-resolved Multivalvular Heart disease CXR showed: Cardiomegaly with volume overload/congestive change. No ede pulmonary edema at this time. Trace pleural effusions. Last ECHO in Jun 2017: EF:60-65%, Left atrium severely dilated, Right atrium moderately dilated, Trace AR, Moderate MR, Mild TR Hold PO diuretics continue IV Lasix 40mg BID, added spironolactone Updated ECHO as below Daily weight, I/Os, fluid restriction Low sodium diet Oxygen support PRN Monitor renal function/electrolytes Pacemaker Interrogation Appreciate Cardiology Input Chest Pain: resolved Last Stress test in February 2018 EKG: no signs of acute Ischemia Cardiac Enzymes Negative CXR:No pneumonia INR in therapeutic range Oxygen PRN Atrial fibrillation Rate controlled Monitor electrolytes continue metoprolol, Cardizem Monitor INR :2.2>>>2.1 continue Coumadin CKD III Baseline Cr around 1.5 Cr: 1.58 today monitor renal function while on IV diuretics DM II A1C:6.8 Hold Home meds Start ISS, Basal Insulin monitor BGs Chronic Anemia Iron Deficiency anemia Hb at baseline FOBT: negative Started Iron supplements COPD No signs of Exacerbation continue home inhalers HTN Stable Continue home meds monitor Hypothyroidism TSH, Free T4: normal Continue Levothyroxine DVT Px: On Coumadin Code Status: Full Code Disposition: Monitor in tele PROCEDURES: ECHO: * Normal LV chamber size and wall thickness. * Normal LV systolic function, EF 60-65%. * Apical wall motion abnormality may reflect pacemaker activation, otherwise , no segmental left ventricular wall motion abnormalities are noted. * Aortic valve sclerosis mild, without significant aortic valvular stenosis. * Trace mitral regurgitation. * Severe left atrial enlargement. Vital Signs: Date Time Temp Pulse Resp B/P (MAP) Pulse Ox O2 Delivery O2 Flow Rate FiO2 05/26/18 12:26 93 Room Air 05/26/18 11:36 36.9 62 18 121/67 (85) 99 2.0 05/26/18 08:00 Nasal Cannula 2.0 05/26/18 06:43 37.4 60 18 145/79 (101) 90 Nasal Cannula 2.0 05/26/18 03:44 37.2 60 16 129/76 (93) 97 Nasal Cannula 2.0 05/26/18 00:00 Nasal Cannula 2.0 05/25/18 22:56 37.1 61 20 140/65 (90) 97 Nasal Cannula 2.0 05/25/18 20:00 Nasal Cannula 2.0 05/25/18 19:19 36.6 72 18 134/83 (100) 91 Nasal Cannula 2.0 05/25/18 16:00 95 Nasal Cannula 2.0 05/25/18 15:03 37.0 59 22 125/67 (86) 95 Nasal Cannula 2.0 Lab Results: Results Past 24 Hours Test 05/25/18 16:33 05/25/18 20:01 05/25/18 20:13 05/26/18 02:10 Range/Units Bedside Glucose 110 108 70-90 mg/dl Stool Occult Blood NEGATIVE NEGATIVE Troponin I < 0.015 < 0.015 0-0.045 ng/ml Test 05/26/18 05:22 05/26/18 07:23 05/26/18 11:11 Range/Units White Blood Count 7.81 4.8-10.8 K/uL Red Blood Count 3.66 4.2-5.4 M/uL Hemoglobin 8.7 12.0-16.0 g/dL Hematocrit 27.8 37-47 % Mean Corpuscular Volume 76.0 80-100 fL Mean Corpuscular Hemoglobin 23.8 25-34 pg Mean Corpuscular Hemoglobin Concent 31.3 32-36 g/dl RDW Standard Deviation 46.4 36.4-46.3 fL RDW Coefficient of Variation 16.8 11.5-14.5 % Platelet Count 260 130-400 K/uL Mean Platelet Volume 9.9 7.4-10.4 fL Prothrombin Time 21.7 9.0-12.0 SECONDS Prothromb Time International Ratio 2.1 0.9-1.1 Sodium Level 133 136-145 mmol/L Potassium Level 3.8 3.5-5.1 mmol/L Chloride Level 97 98-107 mmol/L Carbon Dioxide Level 31 21-32 mmol/L Anion Gap 5.0 3-11 mmol/L Blood Urea Nitrogen 29 7-18 mg/dl Creatinine 1.58 0.60-1.20 mg/dl Est Creatinine Clear Calc Drug Dose 26.0 ml/min Estimated GFR () 34.7 Estimated GFR (Non- 29.9 BUN/Creatinine Ratio 18.6 10-20 Random Glucose 90 70-99 mg/dl Calcium Level 8.5 8.5-10.1 mg/dl Magnesium Level 2.1 1.8-2.4 mg/dl Pro-B-Type Natriuretic Peptide 4922 0-1800 pg/ml Thyroid Stimulating Hormone (TSH) 1.610 0.300-4.500 uIu/ml Free Thyroxine 0.99 0.80-1.60 ng/dl Bedside Glucose 101 104 70-90 mg/dl
[2018-05-26] MEDS ORDERED: WARFARIN SOD 2.5 MG TAB PO SCH (16:00)
[2018-05-27 04:00] VITALS: BP 148/74; PULSE 60; TEMP 36.7; O2SAT 95
[2018-05-27] MEDS: LEVOTHYROXINE 75 MCG TAB PO SCH (05:42)
[2018-05-27 06:23] LABS: HEMATOCRIT 30.5 % (37-47); HEMOGLOBIN 9.3 g/dL (12.0-16.0); MEAN CELL VOLUME 76.8 fL (80-100); MEAN CORPUSCULAR HEMOGLOBIN 23.4 pg (25-34); MEAN CORPUSCULAR HGB CONC 30.5 g/dl (32-36); MEAN PLATELET VOLUME 9.6 fL (7.4-10.4); PLATELET COUNT 276 K/uL (130-400); RED CELL DISTRIBUTION WIDTH CV 16.8 % (11.5-14.5); RED CELL DISTRIBUTION WIDTH SD 47.5 fL (36.4-46.3); WHITE BLOOD COUNT 7.32 K/uL (4.8-10.8)
[2018-05-27 06:30] LABS: INR 1.8 (0.9-1.1)
[2018-05-27 06:50] LABS: CALCIUM 8.7 mg/dl (8.5-10.1); CREATININE 1.63 mg/dl (0.60-1.20); POTASSIUM 3.7 mmol/L (3.5-5.1)
[2018-05-27 07:34] VITALS: BP 132/79; PULSE 67; TEMP 36.4; O2SAT 97
[2018-05-27] MEDS: SPIRONOLACTONE 25 MG TAB PO SCH (08:16)
[2018-05-27] MEDS: LISINOPRIL 40 MG TAB PO SCH (08:17)
[2018-05-27] MEDS: DILTIAZEM HCL 120 MG EXT REL CAP PO SCH (08:17)
[2018-05-27] MEDS: PANTOprazole SOD 40 MG TAB PO SCH (08:17)
[2018-05-27] MEDS: METOPROLOL SUCC 50MG EXT REL TAB PO SCH ×2 (08:17→20:48)
[2018-05-27] MEDS: POLYETHYLENE (MIRALAX) 17 GM PACK PO SCH (08:18)
[2018-05-27] MEDS: BUDESONIDE/FORMOTEROL FUMARATE 160/4.5 60 PUFFS/INHALER INH SCH ×2 (08:18→20:41)
[2018-05-27] MEDS: FERROUS SULFATE 325 MG TAB PO SCH (08:18)
[2018-05-27] MEDS: MAGNESIUM OXIDE 400 MG TAB PO SCH ×2 (08:18→20:48)
[2018-05-27] MEDS: INSULIN ASPART 100 UNITS/ML 3 ML PEN SC SCH ×4 (08:25→20:41)
[2018-05-27] MEDS: FUROSEMIDE INJ 40 MG in SYRINGE 0 ML IV SCH ×2 (08:26→17:19)
[2018-05-27] MEDS: INSULIN GLARGINE SOLOSTAR 100 UNITS/ML 3 ML PEN SC SCH ×2 (08:26→20:48)
[2018-05-27 11:35] VITALS: BP 126/70; PULSE 61; TEMP 36.8; O2SAT 91
--- NOTE | 2018-05-27 12:29 | Cardiology Follow-Up ---
Subjective Subjective Date of Service: May 27, 2018. Pt evaluation today including: conversation w/ patient, physical exam, chart review, lab review, review of studies, review of inpatient medication list Additional Details: Pt seen and examined, states that she feels better today but not yet back to baseline. Still with some sob. Denies cp, palpitations, lightheadedness or dizziness. Problem List Medical Problems: (1) Acute congestive heart failure Status: Acute (2) Anemia Status: Acute (3) Atrial fibrillation Status: Acute (4) Bradycardia Status: Acute (5) Chest pain Status: Acute (6) CHF (congestive heart failure) Status: Acute (7) CKD (chronic kidney disease) Status: Acute (8) Dyspnea Status: Acute (9) Fluid overload Status: Acute (10) Hypoxia Status: Acute (11) Left ankle pain Status: Acute (12) Lightheadedness Status: Acute (13) Precordial chest pain Status: Acute (14) SOB (shortness of breath) Status: Acute Review of Systems Respiratory: + shortness of breath, + dyspnea on exertion, No see HPI, No cough , No sputum, No wheezing, No dyspnea at rest, No hemoptysis, No problem reported Cardiac: No see HPI, No chest pain, No orthopnea, No PND, No edema, No claudication, No palpitations, No problem reported Objective Vital Signs Last Vital Signs Documentation Date Time Temp Pulse Resp B/P (MAP) Pulse Ox O2 Delivery O2 Flow Rate FiO2 05/27/18 11:35 36.8 61 20 126/70 (88) 91 Room Air 05/26/18 11:36 2.0 Physical Exam: General Appearance: WD/WN, no apparent distress Eyes: bilateral eyes normal inspection, bilateral eyes PERRL, bilateral eyes EOMI ENT: normal ENT inspection, hearing grossly normal, pharynx normal Neck: supple, no adenopathy, thyroid normal, no JVD, no carotid bruits, trachea midline Respiratory/Chest: chest non-tender, normal breath sounds, no respiratory distress, no accessory muscle use, + rhonchi Cardiovascular: no gallop, no JVD, no murmur, + irregularly irregular Abdomen: normal bowel sounds, non tender, soft, no organomegaly, no pulsatile mass Extremities: normal inspection, no calf tenderness, + pedal edema 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 acute decompensated diastolic dysfunction improving diuresing well but not yet back to baseline will cont with IV lasix for now and reassess in AM after AM dose cont spironolactone NA now back to within normal limits 2. Hypertension improved tolerating addition of spironolactone well follow K 3. afib chronic rate controlled INR therapeutic cont to monitor on tele cont strict I/O's along with daily weight on same scale
[2018-05-27 15:48] VITALS: BP 119/68; PULSE 62; TEMP 36.9; O2SAT 92
[2018-05-27] MEDS: WARFARIN SOD 5 MG TAB PO SCH (15:48)
--- NOTE | 2018-05-27 18:21 | Progress Note ---
Internal Med Progress Note Date of Service: May 27, 2018. Provider Documentation: SUBJECTIVE: Still feels weak and tired Having shortness of breath with walking around Occasional episode of dizzy spell No syncope OBJECTIVE: Vital Signs-as noted below Exam: General-elderly female, very pleasant, no apparent Eyes-sclera nonicteric, pupils bilateral equal reactive to light extraocular muscle ENT-moist oral mucosa Neck-no JVD, no carotid bruit, trachea mid Lungs-clear to auscultate, no wheeze or Heart-regular S1 and S2 no murmur Abdomen-soft nontender, no organ Extremities-trace bilateral lower extremity Neuro-no focal neurological Lab data as noted below. ASSESSMENT & PLAN: ACUTE ON CHRONIC CHF WITH DIASTOLIC DYSFUNCTION/VALVULAR HEART DISEASE: Presented with shortness of breath/hypoxemia/dyspnea on exertion Chest x-ray showed cardiomegaly with volume overload/congestive change. No ede pulmonary edema at this point. Trace pleural effusions. Echo: -Normal LV chamber size and wall thickness -Apical motion wall abnormality may reflect pacemaker activation otherwise no segmental left ventricular wall motion abnormality -Aortic valve sclerosis mild, without significant aortic valvular stenosis -Trace mitral regurgitation -Severe left atrial enlargement -Cardiology consulted, appreciate input Adequate diuresis with IV Lasix 40 mg twice, added Aldactone Continue to monitor volume status with daily weight, input output ACUTE HYPOXEMIC RESPIRATORY FAILURE Due to above Respiratory status improved baseline after diuresis ATRIAL FIBRILLATION Continue on beta-antoni metoprolol, Cardizem On Coumadin, INR therapeutic Cardiology following CHEST PAIN Transient chest heaviness possibly secondary to decompensated No evidence of cardiac ischemia or acute coronary event Recent cardiac stress test in February 2018 was negative for stress-induced cardiac ischemia Echo shows no new wall motion abnormality Cardiology following CKD STAGE III Creatinine at approximate baseline TYPE 2 DIABETES Well-controlled, hemoglobin A1c 6.8 Continue insulin sliding scale, basal Lantus HISTORY OF COPD No sign of exacerbation Respiratory status stable Continue home inhalers HYPERTENSION BP stable Continue home meds HYPOTHYROIDISM Normal TSH/free T4 Continue levothyroxine CODE STATUS: Full code DVT PROPHYLAXIS: On Coumadin DISPOSITION PT OT evaluation requested Social service consulted for discharge planning Vital Signs: Date Time Temp Pulse Resp B/P (MAP) Pulse Ox O2 Delivery O2 Flow Rate FiO2 05/28/18 19:07 36.8 64 20 146/85 (105) 93 Room Air 05/28/18 15:02 36.9 72 18 137/84 (101) 95 Room Air 05/28/18 11:30 36.9 64 18 111/71 (84) 93 Room Air 05/28/18 08:10 Room Air 05/28/18 07:20 36.5 69 20 135/82 (99) 95 BiPAP 2.0 05/28/18 04:11 37.1 65 16 142/85 (104) 93 CPAP 05/28/18 00:00 Room Air 05/27/18 23:19 37.0 64 18 174/98 (123) 90 Room Air Lab Results: Results Past 24 Hours Test 05/27/18 20:17 05/28/18 05:28 05/28/18 05:31 05/28/18 07:30 Range/Units Bedside Glucose 143 93 70-90 mg/dl Prothrombin Time 17.9 9.0-12.0 SECONDS Prothromb Time International Ratio 1.7 0.9-1.1 Sodium Level 136 136-145 mmol/L Potassium Level 3.9 3.5-5.1 mmol/L Chloride Level 98 98-107 mmol/L Carbon Dioxide Level 32 21-32 mmol/L Anion Gap 6.0 3-11 mmol/L Blood Urea Nitrogen 40 7-18 mg/dl Creatinine 1.60 0.60-1.20 mg/dl Est Creatinine Clear Calc Drug Dose 24.2 ml/min Estimated GFR () 34.2 Estimated GFR (Non- 29.5 BUN/Creatinine Ratio 25.3 10-20 Random Glucose 89 70-99 mg/dl Calcium Level 9.0 8.5-10.1 mg/dl Test 05/28/18 11:39 05/28/18 16:37 Range/Units Bedside Glucose 123 104 70-90 mg/dl
[2018-05-27 19:20] VITALS: BP 116/79; PULSE 61; TEMP 37.1; O2SAT 91
[2018-05-27 23:19] VITALS: BP 174/98; PULSE 64; TEMP 37; O2SAT 90
[2018-05-28] VITALS (8 sets, daily range): BP systolic 111–146; BP diastolic 71–85; PULSE 64–82; TEMP 36.5–37.1; O2SAT 91–95
[2018-05-28 05:54] LABS: INR 1.7 (0.9-1.1)
[2018-05-28] MEDS: LEVOTHYROXINE 75 MCG TAB PO SCH (06:00)
[2018-05-28] MEDS: BUDESONIDE/FORMOTEROL FUMARATE 160/4.5 60 PUFFS/INHALER INH SCH ×2 (08:07→21:00)
[2018-05-28] MEDS: METOPROLOL SUCC 50MG EXT REL TAB PO SCH ×2 (08:07→21:00)
[2018-05-28] MEDS: SPIRONOLACTONE 25 MG TAB PO SCH (08:07)
[2018-05-28] MEDS: PANTOprazole SOD 40 MG TAB PO SCH (08:07)
[2018-05-28] MEDS: LISINOPRIL 40 MG TAB PO SCH (08:08)
[2018-05-28] MEDS: DILTIAZEM HCL 120 MG EXT REL CAP PO SCH (08:08)
[2018-05-28] MEDS: MAGNESIUM OXIDE 400 MG TAB PO SCH ×2 (08:08→21:00)
[2018-05-28] MEDS: POLYETHYLENE (MIRALAX) 17 GM PACK PO SCH (08:10)
[2018-05-28] MEDS: INSULIN ASPART 100 UNITS/ML 3 ML PEN SC SCH ×4 (08:23→21:00)
[2018-05-28] MEDS: INSULIN GLARGINE SOLOSTAR 100 UNITS/ML 3 ML PEN SC SCH ×2 (08:23→21:00)
[2018-05-28] MEDS: FUROSEMIDE INJ 40 MG in SYRINGE 0 ML IV SCH ×2 (08:24→16:34)
[2018-05-28 13:17] LABS: CREATININE 1.6 mg/dl (0.60-1.20); POTASSIUM 3.9 mmol/L (3.5-5.1)
--- NOTE | 2018-05-28 14:10 | Cardiology Follow-Up ---
Subjective Subjective Date of Service: May 28, 2018. Pt evaluation today including: conversation w/ patient, conversation w/ family , physical exam, chart review, lab review, review of studies, review of inpatient medication list Additional Details: Pt seen and examined, with family at bedside. States that she feels well today and her breathing is back to baseline. Denies cp, sob, palpitations, lightheadedness or dizziness. Problem List Medical Problems: (1) Acute congestive heart failure Status: Acute (2) Anemia Status: Acute (3) Atrial fibrillation Status: Acute (4) Bradycardia Status: Acute (5) Chest pain Status: Acute (6) CHF (congestive heart failure) Status: Acute (7) CKD (chronic kidney disease) Status: Acute (8) Dyspnea Status: Acute (9) Fluid overload Status: Acute (10) Hypoxia Status: Acute (11) Left ankle pain Status: Acute (12) Lightheadedness Status: Acute (13) Precordial chest pain Status: Acute (14) SOB (shortness of breath) Status: Acute Review of Systems Respiratory: + shortness of breath, + dyspnea on exertion, No see HPI, No cough , No sputum, No wheezing, No dyspnea at rest, No hemoptysis, No problem reported Cardiac: No see HPI, No chest pain, No orthopnea, No PND, No edema, No claudication, No palpitations, No problem reported Objective Vital Signs Last Vital Signs Documentation Date Time Temp Pulse Resp B/P (MAP) Pulse Ox O2 Delivery O2 Flow Rate FiO2 05/28/18 11:30 36.9 64 18 111/71 (84) 93 Room Air 05/28/18 07:20 2.0 Physical Exam: General Appearance: WD/WN, no apparent distress Eyes: bilateral eyes normal inspection, bilateral eyes PERRL, bilateral eyes EOMI ENT: normal ENT inspection, hearing grossly normal, pharynx normal Neck: supple, no adenopathy, thyroid normal, no JVD, no carotid bruits, trachea midline Respiratory/Chest: chest non-tender, lungs clear, normal breath sounds, no respiratory distress, no accessory muscle use, + rhonchi Cardiovascular: no gallop, no JVD, no murmur, + irregularly irregular Abdomen: normal bowel sounds, non tender, soft, no organomegaly, no pulsatile mass Extremities: normal inspection, no calf tenderness, + pedal edema Neurologic/Psychiatric: transfusion nurse II-XII nml as tested, no motor/sensory deficits, alert, normal mood/affect, oriented x 3 Skin: normal color, warm/dry, no rash Lymphatic: no adenopathy Assessment and Plan 1. acute decompensated diastolic dysfunction resolved now back to baseline clinically will d/c IV diuretics and resume outpatient po regimen resume lasix 40mg po daily with an extra pm dose prn sob cont spironolactone my office will call to arrange f/u with me in 2 weeks should have bmp drawn at time of my visit 2. Hypertension improved tolerating addition of spironolactone well follow K 3. afib chronic rate controlled INR therapeutic ok to d/c to home from cardiac standpoint
[2018-05-28] MEDS: WARFARIN SOD 5 MG TAB PO SCH (16:33)
--- NOTE | 2018-05-28 19:22 | Progress Note ---
Internal Med Progress Note Date of Service: May 28, 2018. Provider Documentation: SUBJECTIVE: Feels fine today No complaint of shortness of breath, no dyspnea on exertion More energy Hoping to be discharged home tomorrow OBJECTIVE: Vital Signs-as noted below Exam: General-elderly female, very pleasant, no apparent Eyes-sclera nonicteric, pupils bilateral equal reactive to light extraocular muscle ENT-moist oral mucosa Neck-no JVD, no carotid bruit, trachea mid Lungs-clear to auscultate, no wheeze or Heart-regular S1 and S2 no murmur Abdomen-soft nontender, no organ Extremities-trace bilateral lower extremity Neuro-no focal neurological Lab data as noted below. ASSESSMENT & PLAN: ACUTE ON CHRONIC CHF WITH DIASTOLIC DYSFUNCTION/VALVULAR HEART DISEASE: Volumes status improved to baseline after diuresis Presented with shortness of breath/hypoxemia/dyspnea on exertion Chest x-ray showed cardiomegaly with volume overload/congestive change. No ede pulmonary edema at this point. Trace pleural effusions. Echo: -Normal LV chamber size and wall thickness -Apical motion wall abnormality may reflect pacemaker activation otherwise no segmental left ventricular wall motion abnormality -Aortic valve sclerosis mild, without significant aortic valvular stenosis -Trace mitral regurgitation -Severe left atrial enlargement -Cardiology consulted, appreciate input Adequate diuresis with IV Lasix 40 mg twice, added Aldactone IV Lasix is discontinued Patient is resumed with p.o. Lasix 40 daily, with additional 40 mg as needed for weight gain more than 3 pounds Will continue with Aldactone 25 mg daily Potassium supplement discontinued Outpatient follow-up with Dr. Clement in 2-3 weeks ACUTE HYPOXEMIC RESPIRATORY FAILURE Resolved Due to above Respiratory status improved baseline after diuresis During physical therapy evaluation; episode of hypoxemia noted with activity 2 step exercise ordered in morning to assess for home oxygen needs ATRIAL FIBRILLATION Continue on beta-antoni metoprolol, Cardizem On Coumadin, Cardiology following Stable from cardiac standpoint Okay to discharge telemetry monitoring CHEST PAIN Resolved no further episode Transient chest heaviness possibly secondary to decompensated No evidence of cardiac ischemia or acute coronary event Recent cardiac stress test in February 2018 was negative for stress-induced cardiac ischemia Echo shows no new wall motion abnormality Cardiology following CKD STAGE III Creatinine at approximate baseline Repeat BNP as an outpatient TYPE 2 DIABETES Well-controlled, hemoglobin A1c 6.8 Continue insulin sliding scale, basal Lantus HISTORY OF COPD No sign of exacerbation Respiratory status stable Continue home inhalers HYPERTENSION BP stable Continue home meds HYPOTHYROIDISM Normal TSH/free T4 Continue levothyroxine CODE STATUS: Full code DVT PROPHYLAXIS: On Coumadin DISPOSITION PT OT evaluation appreciated Patient is at approximate baseline functional level Lives at home with , daughter and grand children Has adequate family support Social service consulted for discharge planning-will benefit with home health visiting nurse and home physical therapy Plan to discharge home after 2 step exercise evaluation Family medicine follow-up with Dr. Chad Gimenez Cardiology follow-up with Dr. Pritesh Clement Vital Signs: Date Time Temp Pulse Resp B/P (MAP) Pulse Ox O2 Delivery O2 Flow Rate FiO2 05/29/18 08:00 Room Air 05/29/18 07:28 36.1 63 20 116/74 (88) 96 BiPAP 2.0 05/29/18 00:00 CPAP 05/28/18 23:17 36.6 64 20 144/81 (102) 91 Room Air 05/28/18 21:51 82 123/82 (96) 05/28/18 19:07 36.8 64 20 146/85 (105) 93 Room Air 05/28/18 16:00 95 Room Air 2.0 CPAP 05/28/18 15:02 36.9 72 18 137/84 (101) 95 Room Air Lab Results: Results Past 24 Hours Test 05/28/18 16:37 05/28/18 19:59 05/29/18 06:24 05/29/18 07:35 Range/Units Bedside Glucose 104 109 102 70-90 mg/dl Prothrombin Time 17.1 9.0-12.0 SECONDS Prothromb Time International Ratio 1.6 0.9-1.1 Test 05/29/18 11:24 Range/Units Bedside Glucose 106 70-90 mg/dl
[2018-05-28] MEDS ORDERED: SPIR25TA6 PO (19:42)
--- NOTE | 2018-05-28 19:43 | Discharge Instructions ---
Discharge Instructions Date of Service May 28, 2018. Admission Reason for Admission: Chest Pain, Copd Exacerbation Discharge Discharge Diagnosis / Problem: CHF WITH DIASTOLIC HEART FAILURE Discharge Goals Goal(s): Decrease discomfort, Improve function, Increase independence, Improve disease control, Therapeutic intervention Activity Recommendations Activity Limitations: resume your previous activity . Instructions / Follow-Up Instructions / Follow-Up HOSPITAL FOLLOW-UP:06/02/2018 @ 1:[address] Chad Phoenix DO [facility] LAB WORK:PT/INR CHECK ON 05/31/18 BASIC METABOLIC PANEL ON 05/31/18 CARDIOLOGY FOLLOW-UP: With Dr. Clement in 1-2 weeks, cardiology office will call with appointment Call your Primary Care doctor if any of the following symptoms or problems start or get worse: * Shortness of breath or difficulty breathing * Wake up at night short of breath * Chest pain * Cough * Swelling of your hands, feet, or legs * More fatigued or tired with your normal activity * Palpitations - sudden fast heart beats WEIGHT * Weigh yourself every morning after using the bathroom. * Use the same scale. * Wear the same amount of clothing. * Write your weight down on a chart. * Call your Primary Care doctor if you gain more than 2-3 pounds in 1-2 days. MEDICATIONS * Use this discharge instruction sheet for medication instructions. * Take your medications at the time your doctor ordered. * Do not skip a dose of your medicines. * If you miss a dose of medicine, take it as soon as possible, but DO NOT DOUBLE A DOSE. * Read your medicine information when you get home. * Know all of the side effects of your medicine. If in doubt, ask your pharmacist * Call your Primary Care doctor's office if you have any side effects. * Be sure all of your doctors know what medicine and herbs you take (including cold, flu, and herbal medicine). Take the following with you to your follow-up doctor appointments: * Weight Chart * Medication List * List of questions Do not drink excessive alcohol, beer or wine. Current Hospital Diet Patient's current hospital diet: AHA Diet (Heart Healthy), Diabetes Type 2 Diet , Low Sodium Diet (2gm Na) Discharge Diet Recommended Diet: Low Sodium Diet (2gm Na), Diabetes Type 2 Diet Fluid Restriction: 1500 ml (6 cups) Pending Studies Studies pending at discharge: no Laboratory Results Hemoglobin A1c Test 05/25/18 14:13 Range/Units Estimated Average Glucose 148 mg/dl Hemoglobin A1c 6.8 H 4.5-5.6 % Medical Emergencies . Who to Call and When: Call 911 or go to the Emergency Room if: * If at any time you feel your situation is an emergency * You have tightness or pain in your chest that does not go away with rest or Nitroglycerin * You are very short of breath even with rest . Non-Emergent Contact Non-Emergency issues call your: Primary Care Provider . . "Provider Documentation" section prepared by Romina Bradshaw. .
[2018-05-29] MEDS: LEVOTHYROXINE 75 MCG TAB PO SCH (06:11)
[2018-05-29 06:58] LABS: INR 1.6 (0.9-1.1)
[2018-05-29 07:28] VITALS: BP 116/74; PULSE 63; TEMP 36.1; O2SAT 96
[2018-05-29] MEDS: POLYETHYLENE (MIRALAX) 17 GM PACK PO SCH (08:06)
[2018-05-29] MEDS: INSULIN ASPART 100 UNITS/ML 3 ML PEN SC SCH ×2 (08:07→12:13)
[2018-05-29] MEDS: BUDESONIDE/FORMOTEROL FUMARATE 160/4.5 60 PUFFS/INHALER INH SCH (08:07)
[2018-05-29] MEDS: MAGNESIUM OXIDE 400 MG TAB PO SCH (08:08)
[2018-05-29] MEDS: PANTOprazole SOD 40 MG TAB PO SCH (08:08)
[2018-05-29] MEDS: FERROUS SULFATE 325 MG TAB PO SCH (08:08)
[2018-05-29] MEDS: METOPROLOL SUCC 50MG EXT REL TAB PO SCH (08:08)
[2018-05-29] MEDS: DILTIAZEM HCL 120 MG EXT REL CAP PO SCH (08:08)
[2018-05-29] MEDS: SPIRONOLACTONE 25 MG TAB PO SCH (08:09)
[2018-05-29] MEDS: INSULIN GLARGINE SOLOSTAR 100 UNITS/ML 3 ML PEN SC SCH (08:10)
[2018-05-29] MEDS ORDERED: FUROSEMIDE 40 MG TAB PO SCH (09:00)
[2018-05-29] MEDS ORDERED: WARFARIN SOD 7.5 MG TAB PO ONE (11:30)
[2018-05-29 14:34] VITALS: BP 116/74; PULSE 63; TEMP 36.1; O2SAT 96
--- NOTE | 2018-05-29 14:38 | Discharge Summary ---
Discharge Summary Date of Service May 29, 2018. Discharge Summary Admission Date: May 25, 2018 at 08:30 Discharge Date: May 29, 2018 Discharge Disposition: Home with services Principal Diagnosis: CHF WITH DIASTOLIC HEART FAILURE Procedures: ECHO : 05/25/18: * Normal LV chamber size and wall thickness. * Normal LV systolic function, EF 60-65%. * Apical wall motion abnormality may reflect pacemaker activation, otherwise , no segmental left ventricular wall motion abnormalities are noted. * Aortic valve sclerosis mild, without significant aortic valvular stenosis. * Trace mitral regurgitation. * Severe left atrial enlargement. Consultations: [facility] : DR CABA Medication Reconciliation New Medications: Spironolactone (Spironolactone) 25 Mg Tab 25 MG PO QAM for 30 Days, #30 TAB 2 Refills Continued Medications: Acetaminophen (Tylenol) 500 Mg Tab 500 MG PO Q4 PRN for Pain, TAB Azithromycin (Zithromax) 250 Mg Tab 250 MG PO DAILY PRN for RESCUE KIT take 2 pills on first days then 1 daily for 4 days Budesonide/Formoterol Fumarate (Symbicort 160/4.5 Inhaler ) Aero 2 PUFFS INH BID, INHALER Diltiazem Hcl Ext Rel (Tiazac) 240 Mg Capcr 240 MG PO QAM Docusate Sodium (Docusate Sodium) 100 Mg Tab 100 MG PO BID PRN for constipation Furosemide (Lasix) 40 Mg Tab 40 MG PO DAILY, TAB Take an extra tablet in afternoon if fluid retention Levothyroxine Sodium (Levothyroxine Sodium) 75 Mcg Tab 75 MCG PO DAILY for 90 Days, #90 TAB 3 Refills Lisinopril (Lisinopril) 40 Mg Tab 40 MG PO QAM Magnesium Oxide (Mag-Ox) 400 Mg Tab 400 MG PO BID Metoprolol Succ (Toprol Xl) (Toprol-Xl ) 100 Mg Tabcr 100 MG PO BID Pantoprazole (Protonix) 40 Mg Tab 40 MG PO QAM Polyethylene Glycol 3350 (Miralax) 1 Pow Pow 17 GM PO DAILY for Constipation, #255 GM Prednisone (Prednisone Tab) 20 Mg Tab 20 MG PO UD PRN for RESCUE KIT take 3 tabs for 3 days,2 tabs for 3 days,1 tab for 3 days,1/2 tab for 3 days then stop Sitagliptin Phosphate (Januvia) 50 Mg Tab 50 MG PO QAM, TAB Warfarin Sod (Jantoven) 5 Mg Tab 5 MG PO 6XWK TAKES DAILY EXCEPT FRIDAYS. Warfarin Sod (Jantoven) 2.5 Mg Tab 2.5 MG PO WK TAKES ON FRIDAYS ONLY Discontinued Medications: Potassium Chloride (Micro-K Ext Rel) 10 Meq Capcr 10 MEQ PO BID Referrals At Discharge Follow up Referrals: Physician Referral - 06/02/18 with Chad Phoenix D.O. Admission Information HPI (per Admitting provider): Patient is an 83-year-old female with past medical history of Afib, Diastolic CHF, CKD III, DM II, status post pacemaker, on chronic anticoagulation, COPD, HTN, hypothyroidism, hypertensive heart disease and other problems presents with progressively worsening shortness of breath on exertion since last few days. She reports a weight gain of 3 pounds in 24 hours. Also reports chronic dry cough since 2 months. She states having retrosternal chest pain, which is dull in nature, nonradiating, sudden in onset, 3/10 intensity, which lasted for a few minutes and resolved prior to ED arrival. She denies any associated dizziness, nausea, diaphoresis, aggravating and relieving factors. Patient was found to be hypoxic, 88% on RA while in ED which improved with 2 liters of oxygen supplementation. She reports chronic Orthopnea. Denies any increased leg swelling, PND. She does not follow any salt or fluid restriction diet and the family reports that she eats a lot Ice daily. She denies using her rescue inhaler more frequently that her usual. Denies any history of palpitations, wheezing, hemoptysis, fever, chills, headache, nausea, vomiting, abdominal pain , blood in stools, hematuria, diarrhea, dysuria, recent travel, sick contact, recent change in medications. Physical Exam (per Admitting): General Appearance: WD/WN, no apparent distress Head: normocephalic, atraumatic Eyes: normal inspection, PERRL, EOMI, sclerae normal ENT: normal ENT inspection, hearing grossly normal Neck: supple, trachea midline Respiratory/Chest: chest non-tender, no respiratory distress, no accessory muscle use, + decreased breath sounds, + crackles (basal) Cardiovascular: regular rate, rhythm, no murmur, + pertinent finding (trace pedal edema) Abdomen/GI: normal bowel sounds, non tender, soft Back: normal inspection Extremities/Musculoskelatal: normal inspection, + pedal edema (Trace) 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, no motor/sensory deficits, alert , normal mood/affect, oriented x 3 Skin: normal color, warm/dry Hospital Course no complain of SOB , chest chest heaviness or MACARIO 2 step exercise shows no episode of hypoxia with activity does not need home 02 stable to be discharged home today PHYSICAL EXAM : General-elderly female, very pleasant, no apparent Eyes-sclera nonicteric, pupils bilateral equal reactive to light extraocular muscle ENT-moist oral mucosa Neck-no JVD, no carotid bruit, trachea mid Lungs-clear to auscultate, no wheeze or Heart-regular S1 and S2 no murmur Abdomen-soft nontender, no organ Extremities-trace bilateral lower extremity Neuro-no focal neurological Date Time Temp Pulse Resp B/P (MAP) Pulse Ox O2 Delivery O2 Flow Rate FiO2 05/29/18 14:34 36.1 63 20 96 Room Air ASSESSMENT AND PLAN : ACUTE ON CHRONIC CHF WITH DIASTOLIC DYSFUNCTION/VALVULAR HEART DISEASE: -compensated now Volumes status improved to baseline after diuresis Presented with shortness of breath/hypoxemia/dyspnea on exertion Chest x-ray showed cardiomegaly with volume overload/congestive change. No ede pulmonary edema at this point. Trace pleural effusions. Echo:05/25/18 -Normal LV chamber size and wall thickness -Apical motion wall abnormality may reflect pacemaker activation otherwise no segmental left ventricular wall motion abnormality -Aortic valve sclerosis mild, without significant aortic valvular stenosis -Trace mitral regurgitation -Severe left atrial enlargement -Cardiology consulted, appreciate input Adequate diuresis with IV Lasix 40 mg twice, added Aldactone IV Lasix is discontinued Patient is resumed with p.o. Lasix 40 daily, with additional 40 mg as needed for weight gain more than 3 pounds continue with Aldactone 25 mg daily Potassium supplement discontinued Outpatient follow-up with Dr. Caba in 2-3 weeks ACUTE HYPOXEMIC RESPIRATORY FAILURE Resolved Due to above Respiratory status improved baseline after diuresis During physical therapy evaluation; episode of hypoxemia noted with activity 2 step exercise -shows no episode of hypoxia with activity , does not require home 02 ATRIAL FIBRILLATION rate controlled Continue on beta-antoni metoprolol, Cardizem On Coumadin, INR subtherapeutic 1.6 today given 7.5 mg X1 dose of Coumadin ( home regimen 2.5 on Tuesday /5 mg rest of the days of week ) repeat PT/INR in 2 days follows with [facility] clinic at [facility] CHEST PAIN Resolved no further episode Transient chest heaviness possibly secondary to decompensated No evidence of cardiac ischemia or acute coronary event Recent cardiac stress test in February 2018 was negative for stress-induced cardiac ischemia Echo shows no new wall motion abnormality CKD STAGE III Creatinine at approximate baseline Repeat BNP as an outpatient TYPE 2 DIABETES Well-controlled, hemoglobin A1c 6.8 Continue insulin sliding scale, basal Lantus HISTORY OF COPD No sign of exacerbation Respiratory status stable Continue home inhalers HYPERTENSION BP stable Continue home meds HYPOTHYROIDISM Normal TSH/free T4 Continue levothyroxine CODE STATUS: Full code DVT PROPHYLAXIS: On Coumadin DISPOSITION stable to be discharge home today Family medicine follow-up with Dr. Chad Gimenez Cardiology follow-up with Dr. Pritesh Caba Total time spent on discharge = 40 MINS This includes examination of the patient, discharge planning, medication reconciliation, and communication with other providers. Discharge Instructions Discharge Instructions Date of Service May 28, 2018. Admission Reason for Admission: Chest Pain, Copd Exacerbation Discharge Discharge Diagnosis / Problem: CHF WITH DIASTOLIC HEART FAILURE Discharge Goals Goal(s): Decrease discomfort, Improve function, Increase independence, Improve disease control, Therapeutic intervention Activity Recommendations Activity Limitations: resume your previous activity . Instructions / Follow-Up Instructions / Follow-Up HOSPITAL FOLLOW-UP:06/02/2018 @ 1:[address] Chad Phoenix, [facility] LAB WORK:PT/INR CHECK ON 05/31/18 BASIC METABOLIC PANEL ON 05/31/18 CARDIOLOGY FOLLOW-UP: With Dr. Caba in 1-2 weeks, cardiology office will call with appointment Call your Primary Care doctor if any of the following symptoms or problems start or get worse: * Shortness of breath or difficulty breathing * Wake up at night short of breath * Chest pain * Cough * Swelling of your hands, feet, or legs * More fatigued or tired with your normal activity * Palpitations - sudden fast heart beats WEIGHT * Weigh yourself every morning after using the bathroom. * Use the same scale. * Wear the same amount of clothing. * Write your weight down on a chart. * Call your Primary Care doctor if you gain more than 2-3 pounds in 1-2 days. MEDICATIONS * Use this discharge instruction sheet for medication instructions. * Take your medications at the time your doctor ordered. * Do not skip a dose of your medicines. * If you miss a dose of medicine, take it as soon as possible, but DO NOT DOUBLE A DOSE. * Read your medicine information when you get home. * Know all of the side effects of your medicine. If in doubt, ask your pharmacist * Call your Primary Care doctor's office if you have any side effects. * Be sure all of your doctors know what medicine and herbs you take (including cold, flu, and herbal medicine). Take the following with you to your follow-up doctor appointments: * Weight Chart * Medication List * List of questions Do not drink excessive alcohol, beer or wine. Current Hospital Diet Patient's current hospital diet: AHA Diet (Heart Healthy), Diabetes Type 2 Diet , Low Sodium Diet (2gm Na) Discharge Diet Recommended Diet: Low Sodium Diet (2gm Na), Diabetes Type 2 Diet Fluid Restriction: 1500 ml (6 cups) Pending Studies Studies pending at discharge: no Laboratory Results Hemoglobin A1c Test 05/25/18 14:13 Range/Units Estimated Average Glucose 148 mg/dl Hemoglobin A1c 6.8 H 4.5-5.6 % Medical Emergencies . Who to Call and When: Call 911 or go to the Emergency Room if: * If at any time you feel your situation is an emergency * You have tightness or pain in your chest that does not go away with rest or Nitroglycerin * You are very short of breath even with rest . Non-Emergent Contact Non-Emergency issues call your: Primary Care Provider . . "Provider Documentation" section prepared by Romina Bradshaw. . . Additional Copies To Chad Phoenix D.O. Pritesh Caba D.O.
== END 2018-05-29 15:36 | disposition home or self-care (01) | DRG 291 ==
LOC: EDBD 05:59 → C.EDB 06:01 → C.MED 08:30 → EDBEDREQ 08:34 → ENRESERV 08:57
PROVIDERS: ADMIT Internal Medicine; ATTEND Hospitalist
DX: I13.0 Hypertensive heart and chronic kidney disease with heart failure and stage 1 through stage 4 chronic kidney disease, or unspecified chronic kidney disease (principal); I50.33 Acute on chronic diastolic (congestive) heart failure; J96.01 Acute respiratory failure with hypoxia; I48.1 Persistent atrial fibrillation; E87.70 Fluid overload, unspecified; R07.9 Chest pain, unspecified; E11.22 Type 2 diabetes mellitus with diabetic chronic kidney disease; N18.3 Chronic kidney disease, stage 3 (moderate); E03.9 Hypothyroidism, unspecified; I49.5 Sick sinus syndrome; D50.9 Iron deficiency anemia, unspecified; J44.9 Chronic obstructive pulmonary disease, unspecified; Z79.01 Long term (current) use of anticoagulants; Z79.84 Long term (current) use of oral hypoglycemic drugs; Z79.899 Other long term (current) drug therapy; Z95.0 Presence of cardiac pacemaker

== ENCOUNTER 2022-03-11 14:59 | Observation (INO) ==
[2022-03-11 16:53] LABS: Basophils # (auto) 0.01 K/uL (0-0.2); Basophils % (auto) 0.1 %; Eosinophils # (auto) 0.33 K/uL (0-0.5); Eosinophils % (auto) 4.4 %; Hematocrit (blood only) 37.1 % (37-47); Immature Granulocytes # (auto) 0.01 K/uL (0.00-0.02); Immature Granulocytes % (auto) 0.1 %; Lymphocytes % (auto) 17.4 %; Mean Corpuscular Hemoglobin 30.2 pg (25-34); Mean Corpuscular Hgb Conc 32.3 g/dL (32-36); Mean Corpuscular Volume 93.2 fL (80-100); Monocytes # (auto) 1.25 K/uL (0.11-0.59); Monocytes % (auto) 16.8 %; Neutrophils # (auto) 4.55 K/uL (1.4-6.5); Neutrophils % (auto) 61.2 %; Platelet Count 232 K/uL (130-400); RDW Coefficient of Variation 14.7 % (11.5-14.5); RDW Standard Deviation 49.8 fL (36.4-46.3); Red Blood Count 3.98 M/uL (4.2-5.4); White Blood Count 7.45 K/uL (4.8-10.8)
--- NOTE | 2022-03-11 16:54 | Emergency Department Note ---
Impression & Plan Acute exacerbation of congestive heart failure, Acute dyspnea, MACARIO (dyspnea on exertion) ED Provider Note AlsoNAME: STACY GANDHI AGE: 87 SEX: F : 1935 ARRIVES VIA: Walk-In INFORMANT: Patient, ED PROVIDER(S): Antonino Jean Baptiste MD Chief Complaint: Shortness of HPI: Patient presents due to concern for shortness of breath. The daughter at bedside believes this is been ongoing approximately 2 days in duration with increasingly worse dyspnea on exertion with mild orthopnea. The patient reportedly has not been taking her diuretic as recommended by her airplane patroller Dr. Clement. Thinks that she has had an increase in salt in diet. Patient also believes that she has had a mild weight gain of 2 pounds in the last 2 days and has had some increasing ankle swelling. The patient has had some increasing difficulty with walking. No chest pains no cough or fever. No nausea or vomiting. Patient does live with her and her daughter. ROS: See HPI for pertinent positives and negatives. A total of 10 systems were reviewed and otherwise negative. Past medical history: See below Surgical history: See below Social history: See below Physical Exam: GENERAL: NAD, wearing a mask, non-toxic. EYE EXAM: Wearing eye patch over left eye. Normal conjunctiva. PERRL, no anisocoria. NECK: Supple, no nuchal rigidity, no adenopathy, non-tender. No signs of meningismus. LUNGS: Decreased breath sounds bilateral bases with a left-sided basilar crackles, normal chest wall mechanics. HEART: NSR, no MRG. ABDOMEN: Abdomen soft, non-tender, normo-active bowel sounds, no masses, no rebound or guarding. BACK: No CVA TTP. SKIN: No rashes and no bruising. UPPER EXTREMITIES: Upper extremities are grossly normal. LOWER EXTREMITIES: Grossly normal, 1+ symmetric pretibial edema with mild ankle swelling bilaterally, no asymmetry and no calf pain. Compartments are soft and neurovascular intact. NEURO EXAM: A&O x3, cranial nerves II-XII grossly intact, normal speech, moves all 4 extremities on command w/o issue. Good finger to nose, no drift, no sensory deficits. Differential diagnoses: Reactive airway disease, pneumonia, pneumothorax, COPD, CHF, infections, cardiac ischemia, pulmonary embolism, musculoskeletal, gastrointestinal, as well as other pathologies. Course: Patient was seen and evaluated the bedside. Full history physical exam was performed. EKG interpreted by me Paced rhythm, rate of 61, wide QRS, left axis deviation. Imaging Studies: See Below Cardiac monitoring: An order was placed for continuous cardiac monitoring. The monitor shows a rate of 65 with paced rhythm. MDM: Patient was seen due to concern for shortness of breath. The patient does have mild decreased breath sounds with crackles on the left. Blood work is obtained along with a chest x-ray. Patient blood work shows normal white count H&H and platelet count. The patient's kidney function creat of 1.3. The patient's potassium is normal. Patient was ordered a dose of Lasix. Mag and Phos normal. Patient's BNP is elevated at 523. COVID flu and RSV negative. Chest x-ray does show some vascular congestion. Given the patient's mobility issues dyspnea on exertion orthopnea reported weight gain at home and elevated BNP do believe the patient would benefit from IV diuresis. I did speak with the on-call hospitalist Dr. Antonio and patient was admitted to the medicine service. Past Med/Surg History Medical History Anticoagulated on Coumadin Asthma Atrial fibrillation (04/18/13) CHF (congestive heart failure) Diabetes Hypertension Surgical History Appendectomy (04/18/13) Social History Smoking Status: Never smoker Hx Alcohol Use: No Preferred Language: Turkmen Communication Ability: Effective Senior Developer Required: No Beliefs That Will Affect Care: None Current Living Situation: Family Feels Safe at Home: Yes Assistive Devices: None Allergies Allergies Allergy/AdvReac Type Severity Reaction Status Date / Time Penicillins Allergy Intermediate RASH Verified 03/11/22 18:03 Home Meds Home Medications Medication Instructions Recorded Confirmed magnesium oxide 400 mg PO BID #0 12/25/14 03/11/22 pantoprazole 40 mg tablet,delayed 40 mg PO QAM #0 12/25/14 03/11/22 release diltiazem HCl 240 mg 240 mg PO QAM #0 09/30/17 03/11/22 tablet,extended release 24 hr metoprolol succinate 100 mg 100 mg PO BID #0 10/15/17 03/11/22 tablet,extended release 24 hr sitagliptin 50 mg tablet (Januvia) 50 mg PO QAM #0 tab 02/22/18 03/11/22 levothyroxine 75 mcg tablet 75 mcg PO QAM 90 Days #90 tab 05/25/18 03/11/22 albuterol sulfate 90 mcg/actuation 2 inh INHALATION DIRECTED PRN 04/14/19 03/11/22 aerosol inhaler (Ventolin HFA) rosuvastatin 20 mg tablet 20 mg PO PM 04/14/19 03/11/22 warfarin 5 mg tablet (Jantoven) 5 mg PO [id number] 04/14/19 03/11/22 ergocalciferol (vitamin D2) 1,250 1,250 mcg PO WK 10/02/20 03/11/22 mcg (50,000 unit) capsule (Vitamin D2) furosemide 40 mg tablet 40 mg PO BID 10/02/20 03/11/22 lisinopril 5 mg tablet 5 mg PO QAM 10/02/20 03/11/22 potassium chloride 20 mEq 20 meq PO DAILY 10/02/20 03/11/22 tablet,extended release warfarin 5 mg tablet (Jantoven) 2.5 mg PO WK 10/02/20 03/11/22 acetaminophen 500 mg tablet 500 mg PO Q6H PRN 03/11/22 03/11/22 (Tylenol Extra Strength) Previous Rx's Medication Instructions Recorded ferrous sulfate 325 mg (65 mg 325 mg PO BID #60 tab 10/08/20 iron) tablet Results & Data (ED) Vital Signs Vital Signs - 24 hr 03/11/22 15:14 03/11/22 17:08 03/11/22 19:00 Temperature 36.8 C 37 C Temperature Source Temporal Artery Scan Oral Pulse Rate 63 Pulse Rate [Apical] 64 61 Pulse Rhythm [Apical] Regular Pulse Strength [Apical] Normal Respiratory Rate 20 20 18 Respiratory Effort / Characteristics Spontaneous Non-Labored Spontaneous Respiratory Depth Normal Normal Respiratory Pattern Regular Blood Pressure 137/73 Blood Pressure [Right Arm] 156/80 H 164/78 H Blood Pressure Mean 94 Blood Pressure Mean [Right Arm] 105 106 Blood Pressure Position Sitting Blood Pressure Position [Right Arm] Lying Pulse Oximetry 91 94 98 Oxygen Delivery Method Room Air Room Air Room Air Sepsis Recent Fever Within 48 Hours No Sepsis New/Unexplained Change in Mental Status No Sepsis Action Taken by Nursing No Action Required Home Medications Current Medication List: was personally reviewed by me Laboratory Data Attestation: I reviewed the patient's lab results. Result diagrams: 03/11/22 16:35 03/11/22 17:45 Lab Results 03/11/22 03/11/22 03/11/22 Range/Units 16:28 16:35 16:35 WBC (4.8-10.8) K/uL RBC (4.2-5.4) M/uL Hgb (12.0-16.0) g/dL Hct (37-47) % MCV (80-100) fL MCH (25-34) pg MCHC (32-36) g/dL RDW Std Deviation (36.4-46.3) fL RDW Coeff of Popeye (11.5-14.5) % Plt Count (130-400) K/uL MPV (7.4-10.4) fL Immature Gran % (Auto) % Neut % (Auto) % Lymph % (Auto) % [place] % (Auto) % Eos % (Auto) % Baso % (Auto) % Neut # (Auto) (1.4-6.5) K/uL Lymph # (Auto) (1.2-3.4) K/uL [place] # (Auto) (0.11-0.59) K/uL Eos # (Auto) (0-0.5) K/uL Baso # (Auto) (0-0.2) K/uL Immature Gran # (Auto) (0.00-0.02) K/uL PT (9.0-12.0) Seconds INR (0.9-1.1) APTT (21.0-31.0) Seconds PTT Ratio Sodium 136 (136-145) mmol/L Potassium TNP Chloride 102 (98-107) mmol/L Carbon Dioxide 28 (21-32) mmol/L Anion Gap 6 (3-11) BUN 24 H (6-23) mg/dl Creatinine 1.31 H (0.6-1.2) mg/dl Est Cr Clr Drug Dosing Not Reportable Est GFR ( Amer) 42.3 ml/min Est GFR (Non-Af Amer) 36.5 ml/min BUN/Creatinine Ratio 18.3 (10-20) Glucose 104 H (70-99(Fasting)) mg/dl Calcium 9.3 (8.5-10.1) mg/dl Phosphorus (2.5-4.9) mg/dl Magnesium (1.7-2.4) mg/dl Total Bilirubin 0.8 (0.2-1.0) mg/dl AST TNP ALT 12 (7-52) U/L Alkaline Phosphatase 88 (34-104) U/L Troponin I High Sens 9.1 (0-14) pg/ml B-Natriuretic Peptide 523 H (0-100) pg/ml Total Protein 7.0 (6.0-8.3) gm/dl Albumin 4.2 (3.4-5.0) gm/dl Globulin 2.8 (2.5-4.0) gm/dl Albumin/Globulin Ratio 1.5 (0.9-2) TSH (0.300-4.500) uIu/ml SARS-CoV-2 (PCR) NEGATIVE (Negative) Influenza Type A (PCR) Negative (Neg) Influenza Type B (PCR) Negative (Neg) RSV (RT-PCR) Negative (Neg) 03/11/22 03/11/22 03/11/22 Range/Units 16:35 16:35 17:45 WBC 7.45 (4.8-10.8) K/uL RBC 3.98 L (4.2-5.4) M/uL Hgb 12.0 (12.0-16.0) g/dL Hct 37.1 (37-47) % MCV 93.2 (80-100) fL MCH 30.2 (25-34) pg MCHC 32.3 (32-36) g/dL RDW Std Deviation 49.8 H (36.4-46.3) fL RDW Coeff of Popeye 14.7 H (11.5-14.5) % Plt Count 232 (130-400) K/uL MPV 10.0 (7.4-10.4) fL Immature Gran % (Auto) 0.1 % Neut % (Auto) 61.2 % Lymph % (Auto) 17.4 % [place] % (Auto) 16.8 % Eos % (Auto) 4.4 % Baso % (Auto) 0.1 % Neut # (Auto) 4.55 (1.4-6.5) K/uL Lymph # (Auto) 1.30 (1.2-3.4) K/uL [place] # (Auto) 1.25 H (0.11-0.59) K/uL Eos # (Auto) 0.33 (0-0.5) K/uL Baso # (Auto) 0.01 (0-0.2) K/uL Immature Gran # (Auto) 0.01 (0.00-0.02) K/uL PT (9.0-12.0) Seconds INR (0.9-1.1) APTT (21.0-31.0) Seconds PTT Ratio Sodium (136-145) mmol/L Potassium 4.1 Chloride (98-107) mmol/L Carbon Dioxide (21-32) mmol/L Anion Gap (3-11) BUN (6-23) mg/dl Creatinine (0.6-1.2) mg/dl Est Cr Clr Drug Dosing Est GFR ( Amer) ml/min Est GFR (Non-Af Amer) ml/min BUN/Creatinine Ratio (10-20) Glucose (70-99(Fasting)) mg/dl Calcium (8.5-10.1) mg/dl Phosphorus 3.6 (2.5-4.9) mg/dl Magnesium 2.0 (1.7-2.4) mg/dl Total Bilirubin (0.2-1.0) mg/dl AST 17 ALT (7-52) U/L Alkaline Phosphatase (34-104) U/L Troponin I High Sens (0-14) pg/ml B-Natriuretic Peptide (0-100) pg/ml Total Protein (6.0-8.3) gm/dl Albumin (3.4-5.0) gm/dl Globulin (2.5-4.0) gm/dl Albumin/Globulin Ratio (0.9-2) TSH 3.137 (0.300-4.500) uIu/ml SARS-CoV-2 (PCR) (Negative) Influenza Type A (PCR) (Neg) Influenza Type B (PCR) (Neg) RSV (RT-PCR) (Neg) 03/11/22 Range/Units 17:45 WBC (4.8-10.8) K/uL RBC (4.2-5.4) M/uL Hgb (12.0-16.0) g/dL Hct (37-47) % MCV (80-100) fL MCH (25-34) pg MCHC (32-36) g/dL RDW Std Deviation (36.4-46.3) fL RDW Coeff of Popeye (11.5-14.5) % Plt Count (130-400) K/uL MPV (7.4-10.4) fL Immature Gran % (Auto) % Neut % (Auto) % Lymph % (Auto) % [place] % (Auto) % Eos % (Auto) % Baso % (Auto) % Neut # (Auto) (1.4-6.5) K/uL Lymph # (Auto) (1.2-3.4) K/uL [place] # (Auto) (0.11-0.59) K/uL Eos # (Auto) (0-0.5) K/uL Baso # (Auto) (0-0.2) K/uL Immature Gran # (Auto) (0.00-0.02) K/uL PT 21.6 H (9.0-12.0) Seconds INR 2.1 H (0.9-1.1) APTT 39.0 H (21.0-31.0) Seconds PTT Ratio 1.4 Sodium (136-145) mmol/L Potassium Chloride (98-107) mmol/L Carbon Dioxide (21-32) mmol/L Anion Gap (3-11) BUN (6-23) mg/dl Creatinine (0.6-1.2) mg/dl Est Cr Clr Drug Dosing Est GFR ( Amer) ml/min Est GFR (Non-Af Amer) ml/min BUN/Creatinine Ratio (10-20) Glucose (70-99(Fasting)) mg/dl Calcium (8.5-10.1) mg/dl Phosphorus (2.5-4.9) mg/dl Magnesium (1.7-2.4) mg/dl Total Bilirubin (0.2-1.0) mg/dl AST ALT (7-52) U/L Alkaline Phosphatase (34-104) U/L Troponin I High Sens (0-14) pg/ml B-Natriuretic Peptide (0-100) pg/ml Total Protein (6.0-8.3) gm/dl Albumin (3.4-5.0) gm/dl Globulin (2.5-4.0) gm/dl Albumin/Globulin Ratio (0.9-2) TSH (0.300-4.500) uIu/ml SARS-CoV-2 (PCR) (Negative) Influenza Type A (PCR) (Neg) Influenza Type B (PCR) (Neg) RSV (RT-PCR) (Neg) Administered Medications Discontinued Medications Furosemide (Furosemide 40 Mg/4 Ml Vial) 40 mg IV ONE ONE Stop: 03/11/22 18:18 Last Admin: 03/11/22 18:43 Dose: 40 mg Documented by: [id number] Tramadol HCl (Tramadol Hcl 50 Mg Tablet) 25 mg PO NOW STA Stop: 03/11/22 20:40 Last Admin: 03/11/22 21:06 Dose: 25 mg Documented by: [id number] Warfarin Sodium (Warfarin Sod 5 Mg Tab) 5 mg PO NOW ONE Stop: 03/11/22 20:41 Last Admin: 03/11/22 21:05 Dose: 5 mg Documented by: [id number] Imaging Data Radiologist's Impression: Chest X-Ray 03/11/22 15:15 XR chest 1V portable CLINICAL HISTORY: Sob. COMPARISON STUDY: 04/14/2019 TECHNIQUE: 1 view of the chest FINDINGS: Single frontal view of the chest demonstrates the heart to again be enlarged with cardiac pacer in place. Has been interval development of mild central vascular congestion. The lungs are clear of alveolar opacities. There is no evidence for pleural effusion. There is no acute osseous pathology. IMPRESSION: 1. Cardiomegaly with mild central vascular congestion. ACT 112: Negative or not required by law. Electronically signed by: Morris Teran M.D. 03/11/2022 5:15 PM Foot X-Ray 03/11/22 20:39 XR foot LT 2V HISTORY: 87 years-old Female pain . Acute left foot pain COMPARISON: 06/02/2017 TECHNIQUE: 3 views of the left foot FINDINGS: Diffuse soft tissue swelling. Arterial calcifications. Dystrophic calcifications of the plantar fascia with large plantar enthesophyte of the calcaneus. Multifocal osteoarthritis, severe within the first MTP joint has progressed from the prior study. 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 No acute fracture, dislocation or opaque foreign body. Hallux valgus. IMPRESSION: 1. Diffuse soft tissue swelling. No acute fracture or dislocation identified. 2. 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 ACT 112: Negative or not required by law. The above report was generated using voice recognition software. It may contain grammatical, syntax or spelling errors. Electronically signed by: Ambrocio Shields M.D. 03/11/2022 9:04 PM Discharge Plan Visit Data Chief Complaint: Swelling/Edema to Extremity Stated Complaint: LEFT SWOLLEN ANKLE ED Provider: Antonino Jean Baptiste Discharge Problem: Acute exacerbation of congestive heart failure, Acute dyspnea, MACARIO (dyspnea on exertion) Patient Disposition: Admitted As Inpatient Forms Stand Alone Forms: [facility] Prescriptions Prescriptions: No Action pantoprazole 40 mg Tablet,Delayed Release (Dr/Ec) 40 mg PO QAM Qty: 0 RF: 0 magnesium oxide 400 mg magnesium Tablet 400 mg PO BID Qty: 0 RF: 0 diltiazem HCl 240 mg Tablet Extended Release 24 Hr 240 mg PO QAM Qty: 0 RF: 0 metoprolol succinate 100 mg Tablet Extended Release 24 Hr 100 mg PO BID Qty: 0 RF: 0 Januvia 50 mg Tablet 50 mg PO QAM Qty: 0 RF: 0 levothyroxine 75 mcg Tablet 75 mcg PO QAM 90 Days Qty: 90 RF: 3 warfarin [Jantoven] 5 mg tablet 5 mg PO [id number] RF: 0 albuterol sulfate [Ventolin HFA] 90 mcg/actuation HFA aerosol inhaler 2 inh inhalation DIRECTED PRN (Reason: sob) RF: 0 rosuvastatin 20 mg tablet 20 mg PO PM RF: 0 furosemide 40 mg tablet 40 mg PO BID RF: 0 warfarin [Jantoven] 5 mg tablet 2.5 mg PO WK RF: 0 lisinopril 5 mg tablet 5 mg PO QAM RF: 0 ergocalciferol (vitamin D2) [Vitamin D2] 1,250 mcg (50,000 unit) Capsule 1,250 mcg PO WK RF: 0 potassium chloride 20 mEq tablet extended release 20 meq PO DAILY RF: 0 ferrous sulfate 325 mg (65 mg iron) tablet 325 mg PO BID Qty: 60 RF: 2 acetaminophen [Tylenol Extra Strength] 500 mg Tablet 500 mg PO Q6H PRN (Reason: Pain) RF: 0 Referrals Referrals: Chad Phoenix, [Primary Care Provider] -
--- NOTE | 2022-03-11 17:17 | XRay Report ---
XR chest 1V portable CLINICAL HISTORY: Sob. COMPARISON STUDY: 04/14/2019 TECHNIQUE: 1 view of the chest FINDINGS: Single frontal view of the chest demonstrates the heart to again be enlarged with cardiac pacer in [address]. Has been interval development of mild central vascular congestion. The lungs are clear of alveol ar opacities. There is no evidence for pleural effusion. There is no acute osseous pathology. IMPRESSION: 1. Cardiomegaly with mild central vascular congestion. ACT 112: Negative or not required by law. Electronically signed by: Morris Teran M.D. 03/11/2022 5:15 PM
[2022-03-11 17:26] LABS: Alanine Aminotransferase 12 U/L (7-52); Albumin Globulin Ratio 1.5 (0.9-2); Albumin Level 4.2 gm/dl (3.4-5.0); Alkaline Phosphatase 88 U/L (34-104); Anion Gap 6 (3-11); BUN Creatinine Ratio 18.3 (10-20); Bilirubin,Total 0.8 mg/dl (0.2-1.0); Blood Urea Nitrogen 24 mg/dl (6-23); Calcium 9.3 mg/dl (8.5-10.1); Carbon Dioxide 28 mmol/L (21-32); Chloride 102 mmol/L (98-107); Est GFR (African American) 42.3 ml/min; Est GFR (Non-African American) 36.5 ml/min; Globulin 2.8 gm/dl (2.5-4.0); Glucose 104 mg/dl (70-99(Fasting)); Sodium 136 mmol/L (136-145); Troponin I High Sensitivity 9.1 pg/ml (0-14)
[2022-03-11 17:29] LABS: Influenza A virus by PCR Negative (Neg); Influenza B virus by PCR Negative (Neg); RSV by PCR Negative (Neg); SARS CoV2 RNA(COVID-19) InHosp NEGATIVE (Negative)
[2022-03-11 18:13] LABS: INR 2.1 (0.9-1.1); Partial Thromboplastin Ratio 1.4; Prothrombin Time 21.6 Seconds (9.0-12.0)
[2022-03-11 18:17] LABS: Phosphorus 3.6 mg/dl (2.5-4.9); Potassium 4.1 mmol/L (3.5-5.1)
[2022-03-11] MEDS ORDERED: FUROSEMIDE 40 MG/4 ML VIAL IV ONE (18:17)
--- NOTE | 2022-03-11 19:53 | History & Physical Report ---
Date of Service March 11, 2022 Assessment & Plan (1) Acute decompensated heart failure: Plan: hx chronic diastolic heart failure (EF of 55-60%, TTE 2019 ) Mild symptoms Likely related to dietary discretion over the weekend valvular heart disease (moderate to severe TR, moderate MR, mild AR from TTE 2019) DAIN on CPAP, pulmonary hypertension, patient needs new machine as per outpatient sleep note from 2018 SSS status post PPM on Coumadin, paced rhythm, INR therapeutic hx PVD hypertension, slightly elevated from left midfoot pain hyperlipidemia on statin Rx hypothyroidism, outpatient TSH from November 2021 was slightly elevated at 5 DM2 on oral meds, well-controlled as of recent hemoglobin A1c of 6.15 November 2021 CRI, creatinine at baseline Left midfoot pain, etiology to be determined OBS PCU Continue patient's home diuretics after initial IV diuretic administration at the ER pending cardiology eval Update TTE Strict I/Os, daily weights, CHF education Patient daughter to communicate with Sleep medicine regarding procuring new machine. Plain x-ray of the left foot May need Orthopedics consult pending left foot x-ray results (Patient known to Dr. Hankins.) Basal bolus insulin, ISS BG goal 1 10-1 40, carb count coverage DVT prophylaxis. Coumadin INR goal between 2 and 3 Full code Patient daughter requesting updates from providers. Grace Solorzanopedro, contact #[phone]. Text document was generated using [employer]ake voice recognition software. It may contain grammatical or spelling errors. Kindly contact undersigned for clarification of any documentation item in question. History of Present Illness Chief Complaint: Shortness of breath Primary Care Provider: Chad Phoenix DO History obtained from patient, family, and records. Medical history significant for chronic diastolic heart failure (EF of 55-60%, TTE 2019 ), valvular heart disease (moderate to severe TR, moderate MR, mild AR from TTE 2019), DAIN on CPAP, pulmonary hypertension, SSS status post PPM on Coumadin, PVD, hypertension, hyperlipidemia, hypothyroidism, DM2 on oral meds, CRI (baseline creatinine 1.3-1.4), chronic anemia (baseline hemoglobin of 11) Last confinement October 2020 for symptomatic anemia. EGD/colonoscopy showed gastric polyp, AVMs and hemorrhoids. Coumadin resumed on discharge. 2 days history of shortness of breath worse on exertion with orthopnea. No chest pain. Ankle swelling. Weight off by 2 pounds as per patient. Left midfoot pain noted today without recollection of trauma. Patient compliant with home medications and CPAP. Admits to dietary indiscretion over the weekend with a grandson's graduation democrat. IV Lasix given at the ER for CHF. MEDICAL HISTORY: As above. SURGERIES: Back surgery, knee surgery, appendectomy, mastoid surgery, tonsillectomy, inguinal hernia repair, right oophorectomy FAMILY HISTORY: Breast cancer, dementia PERSONAL SOCIAL HISTORY: Nonsmoker, no chronic intake of alcohol. 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 Lives with . Allergies Allergy/AdvReac Type Severity Reaction Status Date / Time Penicillins Allergy Intermediate RASH Verified 03/11/22 18:03 Home Medications Medication Instructions Recorded Confirmed Type magnesium oxide 400 mg PO BID #0 12/25/14 03/11/22 History pantoprazole 40 mg tablet,delayed 40 mg PO QAM #0 12/25/14 03/11/22 History release diltiazem HCl 240 mg 240 mg PO QAM #0 09/30/17 03/11/22 History tablet,extended release 24 hr metoprolol succinate 100 mg 100 mg PO BID #0 10/15/17 03/11/22 History tablet,extended release 24 hr sitagliptin 50 mg tablet (Januvia) 50 mg PO QAM #0 tab 02/22/18 03/11/22 History levothyroxine 75 mcg tablet 75 mcg PO QAM 90 Days #90 tab 05/25/18 03/11/22 History albuterol sulfate 90 mcg/actuation 2 inh INHALATION DIRECTED PRN 04/14/19 03/11/22 History aerosol inhaler (Ventolin HFA) rosuvastatin 20 mg tablet 20 mg PO PM 04/14/19 03/11/22 History warfarin 5 mg tablet (Jantoven) 5 mg PO 6XWK 04/14/19 03/11/22 History ergocalciferol (vitamin D2) 1,250 1,250 mcg PO WK 10/02/20 03/11/22 History mcg (50,000 unit) capsule (Vitamin D2) furosemide 40 mg tablet 40 mg PO BID 10/02/20 03/11/22 History lisinopril 5 mg tablet 5 mg PO QAM 10/02/20 03/11/22 History potassium chloride 20 mEq 20 meq PO DAILY 12/24/20 06/02/22 History tablet,extended release warfarin 5 mg tablet (Jantoven) 2.5 mg PO WK 10/02/20 03/11/22 History ferrous sulfate 325 mg (65 mg 325 mg PO BID #60 tab 10/08/20 03/11/22 Rx iron) tablet acetaminophen 500 mg tablet 500 mg PO Q6H PRN 03/11/22 03/11/22 History (Tylenol Extra Strength) Past Med/Surg History Medical History Anticoagulated on Coumadin Asthma Atrial fibrillation (04/18/13) CHF (congestive heart failure) Diabetes Hypertension Surgical History Appendectomy (04/18/13) Social History Smoking Status: Never smoker Second Hand Exposure: No; Do You Dip or Chew Tobacco: No; Tobacco Cessation Education Requested by Patient: No Hx Alcohol Use: Yes Hx Substance Use: No Preferred Language: Nepali Communication Ability: Effective Peoplesoft Developer Required: No Beliefs That Will Affect Care: None Current Living Situation: Spouse and Family Other Information That Helps Us Care for You: No Feels Safe at Home: Yes Safety Concerns: Feels Safe At This Time Assistive Devices: Walker Review of Systems Review of Systems: As per HPI, all other systems reviewed and negative Physical Exam Physical Exam: GENERAL: Comfortable, obese, slightly hard of hearing, pleasant, no respiratory distress SKIN: Normal color, warm HEENT: [employer] palpebral conjunctivae, patch over left eye, dry buccal mucosa NECK : Supple, short neck, no tenderness CHEST : Decreased breath sounds , no tenderness HEART : RRR, no obvious murmurs ABDOMEN: Some distention, nontender EXTREMITIES : Bilateral LE swelling, left midfoot tenderness, no other conspicuous deformities noted NEUROLOGIC : Coherent, no facial asymmetry, slightly hard of hearing, gait and stance not assessed Results & Data Results & Data ([facility]) Vital Signs (Past 12 Hours) Vital Signs Temp Pulse Pulse Resp BP BP Pulse Ox 03/11/22 19:00 37 C 61 18 164/78 H 98 03/11/22 17:08 64 20 156/80 H 94 03/11/22 15:14 36.8 C 63 20 137/73 91 Laboratory Results Laboratory Results WBC 6.18 K/uL (4.8-10.8) 03/12/22 07:12 RBC 4.01 M/uL (4.2-5.4) L 03/12/22 07:12 Hgb 12.0 g/dL (12.0-16.0) 03/12/22 07:12 Hct 37.4 % (37-47) 03/12/22 07:12 MCV 93.3 fL (80-100) 03/12/22 07:12 MCH 29.9 pg (25-34) 03/12/22 07:12 MCHC 32.1 g/dL (32-36) 03/12/22 07:12 RDW Std Deviation 49.9 fL (36.4-46.3) H 03/12/22 07:12 RDW Coeff of Popeye 14.6 % (11.5-14.5) H 03/12/22 07:12 Plt Count 227 K/uL (130-400) 03/12/22 07:12 MPV 9.5 fL (7.4-10.4) 03/12/22 07:12 Immature Gran % (Auto) 0.3 % 03/12/22 07:12 Neut % (Auto) 62.5 % 03/12/22 07:12 Lymph % (Auto) 14.7 % 03/12/22 07:12 Fallon % (Auto) 17.2 % 03/12/22 07:12 Eos % (Auto) 5.0 % 03/12/22 07:12 Baso % (Auto) 0.3 % 03/12/22 07:12 Neut # (Auto) 3.86 K/uL (1.4-6.5) 03/12/22 07:12 Lymph # (Auto) 0.91 K/uL (1.2-3.4) L 03/12/22 07:12 Fallon # (Auto) 1.06 K/uL (0.11-0.59) H 03/12/22 07:12 Eos # (Auto) 0.31 K/uL (0-0.5) 03/12/22 07:12 Baso # (Auto) 0.02 K/uL (0-0.2) 03/12/22 07:12 Immature Gran # (Auto) 0.02 K/uL (0.00-0.02) 03/12/22 07:12 PT 26.0 Seconds (9.0-12.0) H 03/12/22 07:12 INR 2.6 (0.9-1.1) H 03/12/22 07:12 APTT 39.0 Seconds (21.0-31.0) H 03/11/22 17:45 PTT Ratio 1.4 03/11/22 17:45 Sodium 136 mmol/L (136-145) 03/11/22 16:35 Potassium 4.1 mmol/L (3.5-5.1) 03/11/22 17:45 Chloride 102 mmol/L (98-107) 03/11/22 16:35 Carbon Dioxide 28 mmol/L (21-32) 03/11/22 16:35 Anion Gap 6 (3-11) 03/11/22 16:35 BUN 24 mg/dl (6-23) H 03/11/22 16:35 Creatinine 1.31 mg/dl (0.6-1.2) H 03/11/22 16:35 Est Cr Clr Drug Dosing Not Reportable 03/11/22 16:35 Est GFR ( Amer) 42.3 ml/min 03/11/22 16:35 Est GFR (Non-Af Amer) 36.5 ml/min 03/11/22 16:35 BUN/Creatinine Ratio 18.3 (10-20) 03/11/22 16:35 Glucose 104 mg/dl (70-99(Fasting)) H 03/11/22 16:35 POC Glucose 104 mg/dl (70-99) H 03/12/22 07:32 Calcium 9.3 mg/dl (8.5-10.1) 03/11/22 16:35 Phosphorus 3.6 mg/dl (2.5-4.9) 03/11/22 17:45 Magnesium 2.0 mg/dl (1.7-2.4) 03/11/22 17:45 Total Bilirubin 0.8 mg/dl (0.2-1.0) 03/11/22 16:35 AST 17 U/L (13-39) 03/11/22 17:45 ALT 12 U/L (7-52) 03/11/22 16:35 Alkaline Phosphatase 88 U/L (34-104) 03/11/22 16:35 Troponin I High Sens 9.1 pg/ml (0-14) 03/11/22 16:35 B-Natriuretic Peptide 523 pg/ml (0-100) H 03/11/22 16:35 Total Protein 7.0 gm/dl (6.0-8.3) 03/11/22 16:35 Albumin 4.2 gm/dl (3.4-5.0) 03/11/22 16:35 Globulin 2.8 gm/dl (2.5-4.0) 03/11/22 16:35 Albumin/Globulin Ratio 1.5 (0.9-2) 03/11/22 16:35 TSH 3.137 uIu/ml (0.300-4.500) 03/11/22 16:35 SARS-CoV-2 (PCR) NEGATIVE (Negative) 03/11/22 16:28 Influenza Type A (PCR) Negative (Neg) 03/11/22 16:28 Influenza Type B (PCR) Negative (Neg) 03/11/22 16:28 RSV (RT-PCR) Negative (Neg) 03/11/22 16:28 Impressions Chest X-Ray 03/11/22 15:15 XR chest 1V portable CLINICAL HISTORY: Sob. COMPARISON STUDY: 04/14/2019 TECHNIQUE: 1 view of the chest FINDINGS: Single frontal view of the chest demonstrates the heart to again be enlarged with cardiac pacer in place. Has been interval development of mild central vascular congestion. The lungs are clear of alveolar opacities. There is no evidence for pleural effusion. There is no acute osseous pathology. IMPRESSION: 1. Cardiomegaly with mild central vascular congestion. ACT 112: Negative or not required by law. Electronically signed by: Morris Teran M.D. 03/11/2022 5:15 PM Diagnostic Findings EKG as per my interpretation: Rate 60, paced rhythm
[2022-03-11] MEDS ORDERED: traMADol HCL 50 MG TABLET PO STA (20:39)
[2022-03-11] MEDS ORDERED: WARFARIN SOD 5 MG TAB PO ONE (20:40)
--- NOTE | 2022-03-11 21:05 | XRay Report ---
XR foot LT 2V HISTORY: 87 years-old Female pain . Acute left foot pain COMPARISON: 06/02/2017 TECHNIQUE: 3 views of the left foot FINDINGS: Diffuse soft tissue swelling. Arterial calcifications. Dystrophic calcifications of the plantar fasci a with large plantar enthesophyte of the calcaneus. Multifocal osteoarthritis, severe within the firs t MTP joint has progressed from the prior study. Additionally, there is progressive moderate to sever e tibiotalar osteoarthritis. No acute fracture, dislocation or opaque foreign body. Hallux valgus. IMPRESSION: 1. Diffuse soft tissue swelling. No acute fracture or dislocation identified. 2. 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 ACT 112: Negative or not required by law. The above report was generated using voice recognition software. It may contain grammatical, syntax o r spelling errors. Electronically signed by: Ambrocio Shields M.D. 03/11/2022 9:04 PM
[2022-03-11] MEDS ORDERED: GLUCAGON FOR INJ 1 MG VIAL SQ PRN (22:05)
[2022-03-11] MEDS ORDERED: GLUCOSE 10 TABS/TUBE PO PRN (22:05)
[2022-03-11] MEDS ORDERED: DEXTROSE 50% 50 ML SYRINGE IV PRN (22:05)
[2022-03-11] MEDS ORDERED: GLUCOSE 40% GEL 15 GM TUBE PO PRN (22:05)
[2022-03-11] MEDS ORDERED: ACETAMINOPHEN 325 MG TAB PO PRN (22:05)
[2022-03-11] MEDS ORDERED: CARBOHYDRATES FOR HYPOGLYCEMIA PO PRN (22:05)
[2022-03-11] MEDS ORDERED: PROMETHAZINE HCL 12.5 MG in SODIUM CHLORIDE 0.9% 50 ML IV PRN (22:05)
[2022-03-11] MEDS: INSULIN ASPART PER UNIT SC SCH (23:02)
[2022-03-11] MEDS: FUROSEMIDE 40 MG TAB PO SCH (23:08)
[2022-03-11] MEDS: METOPROLOL SUCC 50MG EXT REL TAB PO SCH (23:08)
[2022-03-11] MEDS: ROSUVASTATIN CALCIUM 20 MG TAB PO SCH (23:08)
[2022-03-11] MEDS: FERROUS SULFATE 325 MG TAB PO SCH (23:08)
[2022-03-11] MEDS: MAGNESIUM OXIDE 400 MG TAB PO SCH (23:08)
[2022-03-12] MEDS: LEVOTHYROXINE SODIUM 75 MCG TABLET PO SCH (06:04)
--- NOTE | 2022-03-12 08:01 | Cardiology Consultation ---
Date of Consultation March 12, 2022 Assessment & Plan (1) Acute on chronic diastolic CHF (congestive heart failure), NYHA class 3: Acute on chronic diastolic CHF in the setting of dietary indiscretions. Patient presented mildly hypervolemic and has improved clinically with x1 dose of IV Lasix 40 mg. -Transitioned to 40 mg Lasix PO BID this am (home dose).Continue. -Chronic lymphedema multifactorial due to venous insufficiency and obesity/sedentary lifestyle. -Volume status normally well managed. Patient on diltiazem due to atrial fib- could be contributing to some of her fluid retention. Should exacerbations continue to become more frequent- may need to reduce vs discontinue at that time. For now continue- will reassess as an outpatient. (2) Atrial fibrillation: (3) Tachy-pham syndrome: (4) Cardiac pacemaker in situ: History of atrial fibrillation and TBS s/p ppm. Telemetry showing a paced rate in the 60s. Anticoagulated chronically on Coumadin. INRs have been therapeutic, 2.1>>2.6 today. (Goal INR between 2-3). No abnormal bleeding. CBC stable. -Rates controlled- continue Metoprolol succinate 100 mg BID. -Continue Diltazem- plan as stated about regarding fluid retention. (5) Hypertension: Mildly elevated in the hospital setting prior to morning medications- normally controlled as an outpatient. No changes needed at this time. Continue medications as ordered. (6) Left foot pain: No acute fracture noted on xray-arthritic changes observed. Will defer to primary team for management. Case discussed with Dr. Mack. Will follow. Supervising Physician Co-Signing Physician Notes Supervising Physician Attestation: I have personally performed a history and physical examination on the patient. I agree with the nurse practitioner's findings and plan as documented with the following additions. Subjective: Foot pain subjectively improved. Respiratory status back to baseline. Exam: Lungs mildly reduced breath sounds at bases Data: INR 2.6 Chest x-ray reveals mild interstitial edema, relatively unchanged compared to prior films dating back to 2018 Echocardiogram, preserved LVEF, moderate MR, mild AI, mild TR, pulmonary artery systolic pressure estimated be 62 mmHg. The right ventricle is not well visualized but appears grossly normal in size and systolic function. Compared to the previous echo performed in September,, LVEF of 55 to 60% is relatively unchanged. Pulmonary artery systolic pressure was estimated to be 55 mmHg at that time, relatively stable compared to the current. Assessment and Plan: Volume status improved. Soft tissue swelling noted on foot x-ray, without fracture. Stable from congestive heart failure standpoint. Would continue current medications including outpatient furosemide dose 40 mg twice daily. Stable for discharge from cardiac perspective. Rusty Mack DO History of Present Illness Reason for Consultation: CHF Requesting Physician: Yovani hospitalist Attending Physician: Nena Rolon MD History of Present Illness 87-year-old female. Primarily follows with Dr. Clement as an outpatient. Presented to the emergency department on 03/11 due to 2 days of shortness of breath and orthopnea along with left ankle pain. Notable ankle swelling and weight was up by approximately 2 pounds. She admitted to dietary indiscretions over the weekend prior. IV Lasix was given in the emergency department and patient was transferred to telemetry for observation. Normally maintained on Lasix 40 mg twice daily as an outpatient. Echocardiogram pending. Chest x-ray showed mild central vascular congestion, no pleural effusion. EKG showed v-paced rhythm. Of note, she was also having left foot pain- xray showed no acute fracture with arthritic changes. Upon entrance into the room patient resting comfortably in bed with HOB about 30 degrees. Denies any acute complaints. Breathing improved with IV Lasix. Lasix changed to PO this am. Has chronic lymphedema, states that her right leg is back to baseline, left foot/ankle remains swollen. She has venous stasis changes and varicosities noted. No chest pain, or palpitations. No dizziness or syncope. Overall she feels that she is back to her baseline. Per nursing, remains mildly dyspneic on exertion, but patient states that is normal for her. Tele: paced 60s I&O: -525mL Weight: 84.4 kg PAST MEDICAL HISTORY: 1.Chronic atrial fibrillation rate controlled on chronic Coumadin therapy. 2.Tachybrady syndrome status post permanent pacemaker placement with a single lead. 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 4.Diastolic dysfunction with normal LV systolic function. 5.Diabetes. 6.Asthma. 7.Hypertension. 8.Hyperlipidemia. 9.Carotid occlusive disease. 10.Elevated BMI. 11.Hypothyroidism. 12.Stage 3chronic kidney disease. Allergies Allergy/AdvReac Type Severity Reaction Status Date / Time Penicillins Allergy Intermediate RASH Verified 03/11/22 18:03 Home Medications Medication Instructions Recorded Confirmed Type magnesium oxide 400 mg PO BID #0 12/25/14 03/11/22 History pantoprazole 40 mg tablet,delayed 40 mg PO QAM #0 12/25/14 03/11/22 History release diltiazem HCl 240 mg 240 mg PO QAM #0 09/30/17 03/11/22 History tablet,extended release 24 hr metoprolol succinate 100 mg 100 mg PO BID #0 10/15/17 03/11/22 History tablet,extended release 24 hr sitagliptin 50 mg tablet (Januvia) 50 mg PO QAM #0 tab 02/22/18 03/11/22 History levothyroxine 75 mcg tablet 75 mcg PO QAM 90 Days #90 tab 05/25/18 03/11/22 History albuterol sulfate 90 mcg/actuation 2 inh INHALATION DIRECTED PRN 04/14/19 03/11/22 History aerosol inhaler (Ventolin HFA) rosuvastatin 20 mg tablet 20 mg PO PM 04/14/19 03/11/22 History warfarin 5 mg tablet (Jantoven) 5 mg PO 6XWK 04/14/19 03/11/22 History ergocalciferol (vitamin D2) 1,250 1,250 mcg PO WK 10/02/20 03/11/22 History mcg (50,000 unit) capsule (Vitamin D2) furosemide 40 mg tablet 40 mg PO BID 10/02/20 03/11/22 History lisinopril 5 mg tablet 5 mg PO QAM 10/02/20 03/11/22 History potassium chloride 20 mEq 20 meq PO DAILY 10/02/20 03/11/22 History tablet,extended release warfarin 5 mg tablet (Jantoven) 2.5 mg PO WK 10/02/20 03/11/22 History ferrous sulfate 325 mg (65 mg 325 mg PO BID #60 tab 10/08/20 03/11/22 Rx iron) tablet acetaminophen 500 mg tablet 500 mg PO Q6H PRN 03/11/22 03/11/22 History (Tylenol Extra Strength) Patient History Medical History Anticoagulated on Coumadin Asthma Atrial fibrillation (04/18/13) CHF (congestive heart failure) Diabetes Hypertension Surgical History Appendectomy (04/18/13) Social History Smoking Status: Never smoker Second Hand Exposure: No; Do You Dip or Chew Tobacco: No; Tobacco Cessation Education Requested by Patient: No Hx Alcohol Use: Yes Hx Substance Use: No Preferred Language: [place]ese Communication Ability: Effective Linderman Machine Operator Required: No Beliefs That Will Affect Care: None marital status: Current Living Situation: Spouse and Family Other Information That Helps Us Care for You: No Feels Safe at Home: Yes Safety Concerns: Feels Safe At This Time Assistive Devices: Cane, CPAP, Oxygen - at Night and Walker Review of Systems Review of Systems: All systems reviewed & are unremarkable except as noted in HPI & below Physical Exam Constitutional: WD/WN, vitals as above well nourished Eyes: PERRL, conjunctivae normal, anicteric sclerae ENMT: external ear and nose normal, oropharynx normal Neck: normal visual inspection and trachea midline Respiratory: normal respiratory effort; no respiratory distress and no cough Auscultation: + rales (fine crackles BL); no rhonchi and no wheezes Cardiovascular: Rate/Rhythm: regular rate and regular rhythm Heart Sounds: normal S1 and normal S2 Vessels: normal peripheral pulses; no JVD Extremities: + pedal edema, + edema (chronic lymphedema,Left ankle edema > right ) and + varicosities Gastrointestinal (Abdomen): Inspection/Auscultation: abdomen normal to inspection and normal bowel sounds; abdomen not distended and no abdominal edema Percussion/Palpation: abdomen soft; abdomen nontender Musculoskeletal: no cyanosis or clubbing, extremities motor strength 5/5 Skin: no rashes, warm and dry Psychiatric: A+Ox3, euthymic affect Results & Data ([facility]) Vital Signs (Past 12 Hours) Vital Signs Temp Pulse Pulse Resp BP Pulse Ox 03/12/22 07:13 63 03/12/22 03:16 36.5 C 63 18 129/77 94 03/11/22 23:21 60 03/11/22 23:14 36.6 C 60 18 166/84 H 96 03/11/22 22:47 36.4 C L 65 20 163/83 H 99 03/11/22 22:15 61
[2022-03-12] MEDS: FUROSEMIDE 40 MG TAB PO SCH ×2 (08:05→17:22)
[2022-03-12] MEDS: METOPROLOL SUCC 50MG EXT REL TAB PO SCH ×2 (08:05→20:38)
[2022-03-12] MEDS: MAGNESIUM OXIDE 400 MG TAB PO SCH ×2 (08:06→20:38)
[2022-03-12] MEDS: PANTOprazole 40 MG TAB PO SCH (08:06)
[2022-03-12] MEDS: FERROUS SULFATE 325 MG TAB PO SCH ×2 (08:06→17:22)
[2022-03-12] MEDS: POTASSIUM CHLORIDE CRTAB 20 MEQ TABCR PO SCH (08:06)
[2022-03-12] MEDS: dilTIAZem HCL 240 MG CAPCR PO SCH (08:06)
[2022-03-12] MEDS: lisinopril 5 MG TAB PO SCH (08:06)
[2022-03-12] MEDS: INSULIN ASPART PER UNIT SC SCH ×4 (08:13→20:37)
[2022-03-12 08:22] LABS: Basophils # (auto) 0.02 K/uL (0-0.2); Basophils % (auto) 0.3 %; Eosinophils # (auto) 0.31 K/uL (0-0.5); Hematocrit (blood only) 37.4 % (37-47); Immature Granulocytes # (auto) 0.02 K/uL (0.00-0.02); Immature Granulocytes % (auto) 0.3 %; Lymphocytes # (auto) 0.91 K/uL (1.2-3.4); Lymphocytes % (auto) 14.7 %; Mean Corpuscular Hemoglobin 29.9 pg (25-34); Mean Corpuscular Hgb Conc 32.1 g/dL (32-36); Mean Corpuscular Volume 93.3 fL (80-100); Mean Platelet Volume 9.5 fL (7.4-10.4); Monocytes # (auto) 1.06 K/uL (0.11-0.59); Monocytes % (auto) 17.2 %; Neutrophils # (auto) 3.86 K/uL (1.4-6.5); Neutrophils % (auto) 62.5 %; Platelet Count 227 K/uL (130-400); RDW Coefficient of Variation 14.6 % (11.5-14.5); RDW Standard Deviation 49.9 fL (36.4-46.3); Red Blood Count 4.01 M/uL (4.2-5.4); White Blood Count 6.18 K/uL (4.8-10.8)
[2022-03-12 08:36] LABS: INR 2.6 (0.9-1.1)
[2022-03-12 09:02] LABS: BUN Creatinine Ratio 17.5 (10-20); Calcium 9.5 mg/dl (8.5-10.1); Creatinine Clr Calc Pharmacy 33.5 ml/min; Est GFR (African American) 50.1 ml/min; Est GFR (Non-African American) 43.2 ml/min; Potassium 3.7 mmol/L (3.5-5.1)
[2022-03-12] MEDS: ROSUVASTATIN CALCIUM 20 MG TAB PO SCH (20:39)
[2022-03-12] MEDS ORDERED: WARFARIN SOD 5 MG TAB PO ONE (21:46)
--- NOTE | 2022-03-12 22:18 | Hospitalist Progress Note ---
Date of Service March 12, 2022 Assessment & Plan (1) Acute decompensated heart failure: Plan: Acute on chronic diastolic CHF (congestive heart failure), NYHA class 3: Acute on chronic diastolic CHF in the setting of dietary indiscretions over the weekend Present on admission with SOB CXR showedCardiomegaly with mild central vascular congestion. Elevated BNP at 523 on admission Received lasix IV 40mg on admission ECHO showed LV wall motion is normal with EF 55-60% Cardiology on board recommended to continue home dose lasix 40mg BID clinically improves Ok from cardiology standpoint to discharge home (2) Atrial fibrillation: (3) Tachy-pham syndrome: (4) Cardiac pacemaker in situ: Rate control with metoprolol and diltiazem Continue coumadin with INR 2.6 Stable HTN BP fluctuated Continue Lasix, Lisinopril Cardizem and Metoprolol Hypothyroidism Continue Levothyroxine Diabetes Most recent hba1c 6.6 on 12/01 Continue to hold Januvia Continue novolog sliding scale DVT prophylaxis. Coumadin INR goal between 2 and 3 Full code Patient daughter requesting updates from providers. Ms. Grace Marquez, contact #[phone]. Admission and Anticipated Discharge Date Admission Date: March 11, 2022 Subjective Pt was seen and examined for follow up of SOB Lying in bed with no acute distress reading Pt said that she feels ok Ok from cardio to discharge, but pt had no ride to to take her home She would like to leave tomorrow morning Denies any chest pain, palpitation and sob Review of Systems Review of Systems: All systems reviewed & are unremarkable except as noted in Subjective Physical Exam Physical Exam: General- No acute distress Head- atraumatic Eyes- PERRL, EOMI, ENT- oropharynx clear Neck- supple, no JVD Lungs- clear to auscultation Heart- regular rhythm; +murmur Abdomen- normal bowel sounds, soft, nontender Extremities- no calf tenderness, +edema Neuro- alert, oriented x 3; PERRL, EOMI; no facial palsy; no dysarthria Skin- warm & dry Results & Data Results & Data ([facility]) Vital Signs (Past 12 Hours) Vital Signs Temp Pulse Resp BP Pulse Ox 03/12/22 20:08 36.6 C 62 19 144/81 H 90 03/12/22 15:51 36.9 C 60 18 168/93 H 92 03/12/22 11:54 36.7 C 60 20 142/63 H 90
[2022-03-13] MEDS: LEVOTHYROXINE SODIUM 75 MCG TABLET PO SCH (06:00)
[2022-03-13 06:48] LABS: INR 2.9 (0.9-1.1); Prothrombin Time 28.8 Seconds (9.0-12.0)
[2022-03-13 07:04] LABS: Estimated Average Glucose 146 mg/dl; Hemoglobin A1C 6.7 % (4.5-5.6)
[2022-03-13] MEDS: INSULIN ASPART PER UNIT SC SCH ×3 (08:21→17:04)
[2022-03-13] MEDS: FERROUS SULFATE 325 MG TAB PO SCH (08:24)
[2022-03-13] MEDS: POTASSIUM CHLORIDE CRTAB 20 MEQ TABCR PO SCH (08:24)
[2022-03-13] MEDS: PANTOprazole 40 MG TAB PO SCH (08:24)
[2022-03-13] MEDS: MAGNESIUM OXIDE 400 MG TAB PO SCH (08:24)
[2022-03-13] MEDS: FUROSEMIDE 40 MG TAB PO SCH (08:25)
[2022-03-13] MEDS: lisinopril 5 MG TAB PO SCH (08:29)
[2022-03-13] MEDS: dilTIAZem HCL 240 MG CAPCR PO SCH (08:29)
[2022-03-13] MEDS: METOPROLOL SUCC 50MG EXT REL TAB PO SCH (10:55)
--- NOTE | 2022-03-13 14:14 | Electrocardiogram Report ---
Test Reason : Blood Pressure : / mmHG Vent. Rate : 061 BPM Atrial Rate : 061 BPM P-R Int : 000 ms QRS Dur : 162 ms QT Int : 512 ms P-R-T Axes : 000 -68 094 degrees QTc Int : 515 ms Poor data quality, interpretation may be adversely affected Ventricular-paced rhythm Abnormal ECG When compared with ECG of 02-OCT-2020 19:32, No significant change was found Confirmed by Zeyad Ayers ([id number]) on 03/13/2022 2:14:38 PM Referred By: REFERRED SELF Confirmed By:Zeyad Ayers
[2022-03-13] MEDS ORDERED: WARFARIN SOD 5 MG TAB PO SCH (16:00)
--- NOTE | 2022-03-13 16:07 | Discharge Summary ---
Date of Service March 13, 2022 Admission HPI Per Admitting Provider History obtained from patient, family, and records. Medical history significant for chronic diastolic heart failure (EF of 55-60%, TTE 2019 ), valvular heart disease (moderate to severe TR, moderate MR, mild AR from TTE 2019), DAIN on CPAP, pulmonary hypertension, SSS status post PPM on Coumadin, PVD, hypertension, hyperlipidemia, hypothyroidism, DM2 on oral meds, CRI (baseline creatinine 1.3-1.4), chronic anemia (baseline hemoglobin of 11) Last confinement October 2020 for symptomatic anemia. EGD/colonoscopy showed gastric polyp, AVMs and hemorrhoids. Coumadin resumed on discharge. 2 days history of shortness of breath worse on exertion with orthopnea. No chest pain. Ankle swelling. Weight off by 2 pounds as per patient. Left midfoot pain noted today without recollection of trauma. Patient compliant with home medications and CPAP. Admits to dietary indiscretion over the weekend with a grandson's graduation democrat. IV Lasix given at the ER for CHF. MEDICAL HISTORY: As above. SURGERIES: Back surgery, knee surgery, appendectomy, mastoid surgery, tonsillectomy, inguinal hernia repair, right oophorectomy FAMILY HISTORY: Breast cancer, dementia PERSONAL SOCIAL HISTORY: Nonsmoker, no chronic intake of alcohol. 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 Lives with . Discharge Exam General- No acute distress Head- atraumatic Eyes- PERRL, EOMI, ENT- oropharynx clear Neck- supple, no JVD Lungs- clear to auscultation Heart- regular rhythm; +murmur Abdomen- normal bowel sounds, soft, nontender Extremities- no calf tenderness, +edema Neuro- alert, oriented x 3; PERRL, EOMI; no facial palsy; no dysarthria Skin- warm & dry Discharge Data Allergies Allergy/AdvReac Type Severity Reaction Status Date / Time Penicillins Allergy Intermediate RASH Verified 03/11/22 18:03 Consultations 03/11/22 18:59 ED Decision to Admit Stat 03/11/22 22:05 Consult Cardiology Routine Hospital Course (1) Acute decompensated heart failure: Acute on chronic diastolic CHF (congestive heart failure), NYHA class 3: Acute on chronic diastolic CHF in the setting of dietary indiscretions over the weekend Present on admission with SOB CXR showedCardiomegaly with mild central vascular congestion. Elevated BNP at 523 on admission Received lasix IV 40mg on admission ECHO showed LV wall motion is normal with EF 55-60% Cardiology on board recommended to continue home dose lasix 40mg BID clinically improves Ok from cardiology standpoint to discharge home (2) Atrial fibrillation: (3) Tachy-pham syndrome: (4) Cardiac pacemaker in situ: Rate control with metoprolol and diltiazem Continue coumadin with INR 2.6 Stable HTN BP fluctuated Continue Lasix, Lisinopril Cardizem and Metoprolol Hypothyroidism Continue Levothyroxine Diabetes Most recent hba1c 6.6 on 12/01 Continue to hold Januvia Continue novolog sliding scale DVT prophylaxis. Coumadin INR goal between 2 and 3 Full code Patient daughter requesting updates from providers. Ms. Grace Marquez, contact #[phone]. Discharge Plan Discharge Items Patient Disposition: Home - Self-Care Reason For Visit: CHF Discharge Diagnosis: Acute decompensated heart failure: Atrial fibrillation: Tachy-pham syndrome: Cardiac pacemaker in situ: Hypertension Hypothyroidism Diabetes Activity: Resume your previous activity Non-emergency contact: Primary Care Provider and Dairy Frozen Manager Call non-emergency contact if: you have any medication questions and your symptoms worsen Follow-up/Referrals: Chad Phoenix, [Primary Care Provider] - Diet: Heart Healthy Addtl Attending Provider Instructions: Follow up with your primary care provider within 1 week ( Please call for the appointment) Follow up with your Cardiology Follow up with the coumadin clinic to monitor your PT/INR Fall precaution Seek medical attention if your symptoms reoccur CHF Discharge Instructions Call your Primary Care doctor if any of the following symptoms or problems start or get worse: Shortness of breath or difficulty breathing Wake up at night short of breath Chest pain Cough Swelling of your hands, feet, or legs More fatigued or tired with your normal activity Palpitations - sudden fast heart beats WEIGHT Weigh yourself every morning after using the bathroom. Use the same scale. Wear the same amount of clothing. Write your weight down on a chart. Call your Primary Care doctor if you gain more than 2-3 pounds in 1-2 days. MEDICATIONS Use this discharge instruction sheet for medication instructions. Take your medications at the time your doctor ordered. Do not skip a dose of your medicines. If you miss a dose of medicine, take it as soon as possible, but DO NOT DOUBLE A DOSE. Read your medicine information when you get home. Know all of the side effects of your medicine. If in doubt, ask your pharmacist Call your Primary Care doctor's office if you have any side effects. Be sure all of your doctors know what medicine and herbs you take (including cold, flu, and herbal medicine). Take the following with you to your follow-up doctor appointments: Weight Chart Medication List List of questions Do not drink excessive alcohol, beer or wine. Pending Studies at Discharge: No Stand-Alone Forms: [facility], Smoking Cessation Medications and DC Order Prescriptions: Continued pantoprazole 40 mg Tablet,Delayed Release (Dr/Ec) 40 mg PO QAM Qty: 0 RF: 0 magnesium oxide 400 mg magnesium Tablet 400 mg PO BID Qty: 0 RF: 0 diltiazem HCl 240 mg Tablet Extended Release 24 Hr 240 mg PO QAM Qty: 0 RF: 0 metoprolol succinate 100 mg Tablet Extended Release 24 Hr 100 mg PO BID Qty: 0 RF: 0 Januvia 50 mg Tablet 50 mg PO QAM Qty: 0 RF: 0 levothyroxine 75 mcg Tablet 75 mcg PO QAM 90 Days Qty: 90 RF: 3 warfarin [Jantoven] 5 mg tablet 5 mg PO 6XWK RF: 0 albuterol sulfate [Ventolin HFA] 90 mcg/actuation HFA aerosol inhaler 2 inh inhalation DIRECTED PRN (Reason: sob) RF: 0 rosuvastatin 20 mg tablet 20 mg PO PM RF: 0 furosemide 40 mg tablet 40 mg PO BID RF: 0 warfarin [Jantoven] 5 mg tablet 2.5 mg PO WK RF: 0 lisinopril 5 mg tablet 5 mg PO QAM RF: 0 ergocalciferol (vitamin D2) [Vitamin D2] 1,250 mcg (50,000 unit) Capsule 1,250 mcg PO WK RF: 0 potassium chloride 20 mEq tablet extended release 20 meq PO DAILY RF: 0 ferrous sulfate 325 mg (65 mg iron) tablet 325 mg PO BID Qty: 60 RF: 2 acetaminophen [Tylenol Extra Strength] 500 mg Tablet 500 mg PO Q6H PRN (Reason: Pain) RF: 0 Discharge Orders: Discharge Order (Routine); Ordered 03/13/22 Ordered By: Nena Rolon Admission Data Admit Date/Time: 03/11/22 20:44 Attending Provider: Nena Rolon Admit Provider: Nena Rolon Primary Care Provider: Chad Phoenix Other Providers: Connor Antonio ; Pritesh Clement ; Rusty Mack ; Gil Boyce ; Rafal Carrillo ; Chito Juan ; Jian Sainz ; Nicolasa Stockton ; Cleo Buchanan ; Mallory Bacon ; Rene Healy
== END 2022-03-13 17:34 | disposition home or self-care (01) ==
LOC: ED 14:59 → 2S 14:59

== ENCOUNTER 2022-04-02 08:57 | Inpatient (IN) ==
[2022-04-02 10:13] LABS: Basophils # (auto) 0.01 K/uL (0-0.2); Basophils % (auto) 0.1 %; Eosinophils # (auto) 0.11 K/uL (0-0.5); Eosinophils % (auto) 1.5 %; Hematocrit (blood only) 30.7 % (37-47); Immature Granulocytes # (auto) 0.02 K/uL (0.00-0.02); Immature Granulocytes % (auto) 0.3 %; Lymphocytes # (auto) 0.55 K/uL (1.2-3.4); Lymphocytes % (auto) 7.7 %; Mean Corpuscular Hemoglobin 29.3 pg (25-34); Mean Corpuscular Hgb Conc 32.6 g/dL (32-36); Mean Platelet Volume 9.3 fL (7.4-10.4); Monocytes # (auto) 1.11 K/uL (0.11-0.59); Monocytes % (auto) 15.5 %; Neutrophils # (auto) 5.38 K/uL (1.4-6.5); Neutrophils % (auto) 74.9 %; Platelet Count 326 K/uL (130-400); RDW Coefficient of Variation 13.9 % (11.5-14.5); RDW Standard Deviation 45.9 fL (36.4-46.3); Red Blood Count 3.41 M/uL (4.2-5.4); White Blood Count 7.18 K/uL (4.8-10.8)
--- NOTE | 2022-04-02 10:31 | XRay Report ---
XR chest 1V portable CLINICAL HISTORY: Chest Pain. COMPARISON STUDY: 03/11/2022 TECHNIQUE: 1 view of the chest FINDINGS: Single frontal view of the chest demonstrates the heart to again be moderately to markedly enlarged w ith cardiac pacer in place. There is again evidence for very mild central vascular congestion. No per ipheral interstitial edema is seen. There is no evidence for pleural effusion. No alveolar opacities are identified. There is no acute osseous pathology. IMPRESSION: 1. There is again moderate to marked cardiomegaly with mild central vascular congestion. 2. No peripheral interstitial edema or alveolar opacities. ACT 112: Negative or not required by law. Electronically signed by: Morris Teran M.D. 04/02/2022 10:30 AM
[2022-04-02 10:40] LABS: Albumin Globulin Ratio 1.3 (0.9-2); Albumin Level 3.6 gm/dl (3.4-5.0); BUN Creatinine Ratio 23.4 (10-20); Bilirubin,Total 0.9 mg/dl (0.2-1.0); Creatinine Clr Calc Pharmacy 23.9 ml/min; Est GFR (African American) 34.8 ml/min; Globulin 2.7 gm/dl (2.5-4.0); Potassium 4.4 mmol/L (3.5-5.1); Total Protein 6.3 gm/dl (6.0-8.3)
[2022-04-02 10:41] LABS: Troponin I High Sensitivity 11.9 pg/ml (0-14)
[2022-04-02] MEDS ORDERED: FUROSEMIDE 40 MG/4 ML VIAL IV STA (10:45)
[2022-04-02 10:57] LABS: Partial Thromboplastin Ratio 2.4; Prothrombin Time 55.3 Seconds (9.0-12.0)
[2022-04-02 11:02] LABS: INR 5.7 (0.9-1.1)
--- NOTE | 2022-04-02 12:46 | History & Physical Report ---
Date of Service April 02, 2022 Assessment & Plan (1) Acute on chronic diastolic CHF (congestive heart failure), NYHA class 3: (2) MACARIO (dyspnea on exertion): Plan: - Admit to med surg with tele - Trend cardiac biomarkers x 1 more set with chest pain, initial set was n egative - EKG reviewed as above - Last 2 D echo 03/12/22 showing EF of 55-60%, severely dilated left atrium, severe mitral annular calcification, moderate mitral regurg, mild tricuspid regurg, moderate to severe pulmonary hypertension - Cardiology consulted - Continue IV diuresis with lasix 60 mg BID, order po Kcl replacement during aggressive diuresis, pt will need refilll Rx upon discharge if needed - PT/OT consulted - Baseline weight per the patient is 185 lbs, currently 188 lbs - Strict i/os, daily weights, fluid restriction with HH/DM diet of 1500mL (3) Supratherapeutic INR: (4) Atrial fibrillation: Plan: -EKG reviewed as above, rate controlled on amiodarone, -holding Coumadin with supratherapeutic INR of 5.7, INR with daily labs (5) Cardiac pacemaker in situ: Plan: - History of such for SSS, placed in June 2017 -Follows with [facility] as an outpatient (6) Hypertension: Plan: -Continue metoprolol succinate 100 mg twice daily, lisinopril 5 mg daily (7) Diabetes: Plan: -ISS with Accu-Cheks ACHS, last A1c was 6.7 on 03/13 -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 Januvia DVT PPx: - teds, scds, no chemical prophylaxis secondary to elevated INR CODE: DNR/DNI Dispo: From home, likely to remain in the hospital x 1-2 days History of Present Illness Primary Care Provider: Chad Phoenix DO This is an 87 yo F with PMHx of chronic diastolic heart failure (EF of 55-60%, TTE 2019 ), valvular heart disease (mild TR, moderate MR, mild AR from TTE 2019), HTN, DAIN on CPAP, pulmonary hypertension, SSS status post cardiac pacemaker, on Coumadin, PVD, hypertension, hyperlipidemia, hypothyroidism, DM2 on oral meds, CRI (baseline creatinine 1.3-1.4), chronic anemia (baseline hemoglobin of 11). She was recently hospitalized here from 03/11/22 through 03/13/22 for CHF exacerbation where she was treated with IV diuresis and seen by cardiology. Today the patient presents with worsening shortness of breath which has been ongoing for the past 2 days with ADLs and walking. It is specifically worse on exertional activities like putting away the dishes in her kitchen. This morning she became more short of breath and developed central chest pain. EMS was called. She recieved nitro x 1 in EMS and reports her chest pain subsided afer this. She denies any radiation of the pain, palpitations or heaviness. Pt uses a walker at baseline and has also been needing her prn O2 more in the past 2 days. Typically she only wears 2 L via NC HS, but has been requiring it more during the day. Pt states her dry weight is 185 lbs, and is up to 188 lbs today. Her ankles and more swollen and felt that her bra was tight yesterday. She has been taking all her medications as directed, including lasix 40 mg BID. Pt took her morning medications. Daughter who is present at bedside notes that she has been recently taken off iron, and had also asked for potassium refill about 1 month ago, but has not gotten this from PCP and therefore pt has not been taking it, but eats a banana daily. Allergies Allergy/AdvReac Type Severity Reaction Status Date / Time Penicillins Allergy Intermediate RASH Verified 03/11/22 18:03 Home Medications Medication Instructions Recorded Confirmed Type magnesium oxide 400 mg PO BID #0 12/25/14 04/02/22 History pantoprazole 40 mg tablet,delayed 40 mg PO QAM #0 12/25/14 04/02/22 History release diltiazem HCl 240 mg 240 mg PO QAM #0 09/30/17 04/02/22 History tablet,extended release 24 hr metoprolol succinate 100 mg 100 mg PO BID #0 10/15/17 04/02/22 History tablet,extended release 24 hr sitagliptin 50 mg tablet (Januvia) 50 mg PO QAM #0 tab 02/22/18 04/02/22 History levothyroxine 75 mcg tablet 75 mcg PO QAM 90 Days #90 tab 05/25/18 04/02/22 History albuterol sulfate 90 mcg/actuation 2 inh INHALATION DIRECTED PRN 04/14/19 04/02/22 History aerosol inhaler (Ventolin HFA) rosuvastatin 20 mg tablet 20 mg PO PM 04/14/19 04/02/22 History warfarin 5 mg tablet (Jantoven) 5 mg PO 6XWK 04/14/19 04/02/22 History ergocalciferol (vitamin D2) 1,250 1,250 mcg PO WK 10/02/20 04/02/22 History mcg (50,000 unit) capsule (Vitamin D2) furosemide 40 mg tablet 40 mg PO BID 10/02/20 04/02/22 History lisinopril 5 mg tablet 5 mg PO QAM 10/02/20 04/02/22 History warfarin 5 mg tablet (Jantoven) 2.5 mg PO WK 10/02/20 04/02/22 History Past Med/Surg History Medical History Anticoagulated on Coumadin Asthma Atrial fibrillation (04/18/13) CHF (congestive heart failure) Diabetes Hypertension Surgical History Appendectomy (04/18/13) Social History Smoking Status: Never smoker Second Hand Exposure: No; Hx Alcohol Use: Yes Hx Substance Use: No Preferred Language: Croatian Communication Ability: Effective Matrix Bath Attendant Required: No Beliefs That Will Affect Care: None marital status: Current Living Situation: Spouse and Family Feels Safe at Home: Yes Assistive Devices: Cane, CPAP, Oxygen - at Night and Walker Review of Systems 2 Review of Systems: Constitutional: No fever, sweats or chills Eyes: No diplopia, no worsening or blurred vision ENT: normal hearing, no trouble swallowing Respiratory: No cough, sputum, dyspnea at rest, + dyspnea on exertion and requiring more O2 use compared to baseline as per HPI. Cardiovascular: As per HPI, +chest pain now resolved, no tightness or palpi tations Abdomen: No pain, nausea, vomiting, diarrhea or constipation Musculoskeletal: No joint pain, calf pain, + increased ankle swelling Neurologic: No weakness, numbness/tingling, or balance problems Psychiatric: No anxiety or depression Skin: No rash or itch Physical Exam Physical Exam: General: awake, alert, no apparent distress + obese with BMI of 36.5 Head: Normocephalic, atraumatic ENT: PERRL, EOMI on right eye, + eye patch over the left side so not examined, no pharyngeal exudate, mucous membranes moist Chest: Clear to auscultation, + faint crackles at bases, on 2 L via NC with sats at 96%, no wheezes or rales Cardiac: Iregularly irregular rate controlled in the 60s at bedside,, + pacema ker, + faint systolic ejection murmur , no JVD, normal peripheral pulses, good capillary refill Abdominal: NABS x 4 quadrants, + obese, soft, nondistended, nontender to palpation, no rebound or guarding Extremities:+ chronic varicose veins throughout lower extremities, + 2 edema in BLE, nonpitting, no peripheral erythema, calfs nontender to palpation Psych: Normal mood and affect Neuro: AAO x 3, strength intact bilaterally and rated 4/5, no motor deficits, speech is clear, no peripheral sensory deficits Results & Data Results & Data ([facility]) Vital Signs (Past 12 Hours) Vital Signs Temp Pulse Resp BP Pulse Ox 04/02/22 11:10 64 18 97 04/02/22 11:00 69 22 111/87 92 04/02/22 10:50 66 24 91 04/02/22 10:40 66 24 90 04/02/22 10:31 68 22 116/53 L 91 04/02/22 10:30 62 17 91 04/02/22 10:20 70 18 91 04/02/22 10:13 68 29 H 97/60 L 04/02/22 10:10 64 20 95 04/02/22 10:00 62 23 91 04/02/22 09:50 70 22 93 04/02/22 09:48 68 23 92 04/02/22 09:28 93 04/02/22 09:14 37.0 C 86 20 118/53 L 92 Laboratory Results 04/02/22 04/02/22 04/02/22 13:04 10:10 09:55 WBC RBC Hgb Hct MCV MCH MCHC RDW Std Deviation RDW Coeff of Popeye Plt Count MPV Immature Gran % (Auto) Neut % (Auto) Lymph % (Auto) Polk % (Auto) Eos % (Auto) Baso % (Auto) Neut # (Auto) Lymph # (Auto) Polk # (Auto) Eos # (Auto) Baso # (Auto) Immature Gran # (Auto) PT INR APTT PTT Ratio Sodium 134 L Potassium 4.4 Chloride 97 L Carbon Dioxide 31 Anion Gap 6 BUN 36 H Creatinine 1.54 H Est Cr Clr Drug Dosing 23.9 Est GFR ( Amer) 34.8 Est GFR (Non-Af Amer) 30.0 BUN/Creatinine Ratio 23.4 H Glucose 136 H Calcium 9.0 Magnesium 2.0 Total Bilirubin 0.9 AST 22 ALT 21 Alkaline Phosphatase 126 H Troponin I High Sens 11.9 B-Natriuretic Peptide 373 H Total Protein 6.3 Albumin 3.6 Globulin 2.7 Albumin/Globulin Ratio 1.3 Lipase 39 SARS-CoV-2, RNA, NAAT NEGATIVE 04/02/22 04/02/22 09:55 09:55 WBC 7.18 RBC 3.41 L Hgb 10.0 L Hct 30.7 L MCV 90.0 MCH 29.3 MCHC 32.6 RDW Std Deviation 45.9 RDW Coeff of Popeye 13.9 Plt Count 326 MPV 9.3 Immature Gran % (Auto) 0.3 Neut % (Auto) 74.9 Lymph % (Auto) 7.7 Polk % (Auto) 15.5 Eos % (Auto) 1.5 Baso % (Auto) 0.1 Neut # (Auto) 5.38 Lymph # (Auto) 0.55 L Polk # (Auto) 1.11 H Eos # (Auto) 0.11 Baso # (Auto) 0.01 Immature Gran # (Auto) 0.02 PT 55.3 H INR 5.7 H* APTT 65.0 H* PTT Ratio 2.4 Sodium Potassium Chloride Carbon Dioxide Anion Gap BUN Creatinine Est Cr Clr Drug Dosing Est GFR ( Amer) Est GFR (Non-Af Amer) BUN/Creatinine Ratio Glucose Calcium Magnesium Total Bilirubin AST ALT Alkaline Phosphatase Troponin I High Sens B-Natriuretic Peptide Total Protein Albumin Globulin Albumin/Globulin Ratio Lipase SARS-CoV-2, RNA, NAAT Diagnostic Findings Chest X-Ray 04/02/22 09:28 XR chest 1V portable CLINICAL HISTORY: Chest Pain. COMPARISON STUDY: 03/11/2022 TECHNIQUE: 1 view of the chest FINDINGS: Single frontal view of the chest demonstrates the heart to again be moderately to markedly enlarged with cardiac pacer in place. There is again evidence for very mild central vascular congestion. No peripheral interstitial edema is seen. There is no evidence for pleural effusion. No alveolar opacities are identified. There is no acute osseous pathology. IMPRESSION: 1. There is again moderate to marked cardiomegaly with mild central vascular congestion. 2. No peripheral interstitial edema or alveolar opacities. ACT 112: Negative or not required by law. Electronically signed by: Morris Teran M.D. 04/02/2022 10:30 AM ECG Rate (beats per minute): 64 Rhythm: atrial fibrillation Code Status & VTE Plan Code Status DNR/DNI - discussed with the patient and her daughter at bedside at length - all questions and concerns were answered. Supervising Physician Co-Signing Physician Notes Patient is an 87-year-old female with history of diastolic heart failure, valvular heart disease, obstructive sleep apnea, sick sinus syndrome, CKD, chronic oxygen dependency on 2 L at bedtime and other medical problems presents with history of worsening shortness of breath, some associated chest congestion, leg swelling, weight gain which is worse since last 2 days. Patient is on 2 L supplemental oxygen at bedtime but currently requiring most of the day. Please review HPI for complete details of presentation. Blood work showed chronic anemia hemoglobin 10.0, platelet count 326K, INR 5.7, sodium 134, chloride 97, creatinine 1.5, glucose 136, BNP 373, initial troponin within normal range. Chest x-ray showed moderate to marked cardiomegaly with mild central vascular congestion. On exam patient is obese, no apparent distress, normocephalic atraumatic, EOMI, normal breath sounds, clear to auscultation, irregularly irregular, bilateral lower extremity edema present, abdomen soft, nontender, normal bowel sounds, alert, awake, oriented, grossly no focal deficits. Patient is admitted for management of acute on chronic respiratory failure with hypoxia secondary to acute on chronic diastolic heart failure. Agree with IV Lasix, I's and O's, daily weight, fluid restriction. Cardiology consulted. Hold Coumadin secondary to supratherapeutic INR. Currently no acute bleeding issues. I per sonally reviewed the record. Patient is interviewed and examined at bedside. Patient's care is coordinated with Lisa Reynolds PA-C. Please refer to the documentation above for details of patient's presentation and for discussion of other issues.
--- NOTE | 2022-04-02 12:50 | Electrocardiogram Report ---
Test Reason : Blood Pressure : / mmHG Vent. Rate : 080 BPM Atrial Rate : 086 BPM P-R Int : 000 ms QRS Dur : 106 ms QT Int : 364 ms P-R-T Axes : 000 -44 -75 degrees QTc Int : 419 ms Atrial fibrillation with occasional ventricular-paced complexes Left axis deviation Nonspecific ST and T wave abnormality Abnormal ECG When compared with ECG of 11-MAR-2022 16:33, Vent. rate has increased BY 19 BPM Confirmed by Zenon Rosen ([id number]) on 04/02/2022 12:50:46 PM Referred By: REFERRED SELF Confirmed By:Zenon Rosen
--- NOTE | 2022-04-02 14:38 | Emergency Department Note ---
Impression & Plan CHF (congestive heart failure), Anticoagulated on Coumadin, Atrial fibrillation, Chest pain, Acute dyspnea ED Provider Note CHIEF COMPLAINT: CP, SOB HISTORY OF PRESENT ILLNESS: This 87 yo female patient presents to the emergency department with c/o CP and SOB. Patient states for the last 2 days she has had some increasing shortness of breath and difficulty with some chest discomfort. She does have a history of CHF and atrial fibrillation. Patient was recently admitted to the hospital and diuresed per her daughter. She does wear oxygen as needed at home. She is anticoagulated. Patient did not tell her daughter about the symptoms initially as she intended to go away this weekend. REVIEW OF SYSTEMS: A review of systems was performed with positives and pertinent negatives listed in the history of present illness. 10 systems were reviewed and are otherwise negative. ALLERGIES: see below MEDICATIONS: see below PMH: see below SOCIAL HISTORY: see below DDx: Reactive airway disease, pneumonia, pneumothorax, COPD, CHF, infections, cardiac ischemia, pulmonary embolism, musculoskeletal, gastrointestinal, as well as other pathologies. PHYSICAL EXAM: Vital signs reviewed. General: Chronically ill-appearing 87 yo female, in no significant distress. HEENT: No scleral icterus, PERRLA, neck supple. Atraumatic. L eye patch Cardiovascular: Irregular and rate controlled. Distant heart tones. Pulmonary: Clear to auscultation bilaterally, normal work of breathing. Abdomen: Soft, nontender, nondistended, positive bowel sounds. Musculoskeletal: Atraumatic, no peripheral edema. Neurologic: Patient awake alert and oriented x 3, speech is clear Skin: Warm, dry, no rash EMERGENCY DEPARTMENT COURSE/MDM: This patient was evaluated and appeared to be in no significant distress. Patient was maintaining her saturations on room air however had an increased work of breathing. On my evaluation she was taken off of nasal cannula oxygen but shortly thereafter asked nurses to replace it due increased effort in breathing. Patient's chest x-ray reveals some mild con gestive change. She was given 40 mg of IV Lasix. Creatinine is 1.54 with INR of 5.7. Pt is not actively bleeding, therefore no Vit K was administered. Troponin is negative. Pt's case was d/w this hospital service due to ongoing chest discomfort and dyspnea. She has multiple medical issues that will need to be addressed. Patient and daughter were made aware of the plan and agreed. MONITORING: An order for cardiac monitoring was placed and the patient is noted to be in a rate controlled atrial fibrillation at 70 beats per minute. RADIOLOGY: See below EKG: Atrial fibrillation at 80 bpm. Occasional ventricularly paced complexes. Left axis deviation. Nonspecific ST and T wave abnormality. QTC of 419. 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 Beliefs That Will Affect Care: None marital status: Current Living Situation: Spouse and Family Feels Safe at Home: Yes Assistive Devices: Cane, CPAP, Oxygen - at Night and Walker Allergies Allergies Allergy/AdvReac Type Severity Reaction Status Date / Time Penicillins Allergy Intermediate RASH Verified 03/11/22 18:03 Home Meds Home Medications Medication Instructions Recorded Confirmed magnesium oxide 400 mg PO BID #0 12/25/14 04/02/22 pantoprazole 40 mg tablet,delayed 40 mg PO QAM #0 12/25/14 04/02/22 release diltiazem HCl 240 mg 240 mg PO QAM #0 09/30/17 04/02/22 tablet,extended release 24 hr metoprolol succinate 100 mg 100 mg PO BID #0 10/15/17 04/02/22 tablet,extended release 24 hr sitagliptin 50 mg tablet (Januvia) 50 mg PO QAM #0 tab 02/22/18 04/02/22 levothyroxine 75 mcg tablet 75 mcg PO QAM 90 Days #90 tab 05/25/18 04/02/22 albuterol sulfate 90 mcg/actuation 2 inh INHALATION DIRECTED PRN 04/14/19 04/02/22 aerosol inhaler (Ventolin HFA) rosuvastatin 20 mg tablet 20 mg PO PM 04/14/19 04/02/22 warfarin 5 mg tablet (Jantoven) 5 mg PO [id number] 04/14/19 04/02/22 ergocalciferol (vitamin D2) 1,250 1,250 mcg PO WK 10/02/20 04/02/22 mcg (50,000 unit) capsule (Vitamin D2) furosemide 40 mg tablet 40 mg PO BID 10/02/20 04/02/22 lisinopril 5 mg tablet 5 mg PO QAM 10/02/20 04/02/22 warfarin 5 mg tablet (Jantoven) 2.5 mg PO WK 10/02/20 04/02/22 Results & Data (ED) Vital Signs Vital Signs - 24 hr 04/02/22 09:14 04/02/22 09:28 04/02/22 09:48 Temperature 37.0 C Temperature Source Oral Pulse Rate 86 68 Pulse Rate from SpO2 Sensor 66 Respiratory Rate 20 23 Respiratory Effort / Characteristics Short of Breath Respiratory Depth Normal Blood Pressure 118/53 L Blood Pressure Mean 74 Blood Pressure Position Sitting Pulse Oximetry 92 93 92 Oxygen Delivery Method Room Air Nasal Cannula Oxygen Flow Rate 2 Sepsis Recent Fever Within 48 Hours No Sepsis New/Unexplained Change in Mental Status No Sepsis Action Taken by Nursing No Action Required 04/02/22 09:50 04/02/22 10:00 04/02/22 10:10 Temperature Temperature Source Pulse Rate 70 62 64 Pulse Rate from SpO2 Sensor 68 64 65 Respiratory Rate 22 23 20 Respiratory Effort / Characteristics Respiratory Depth Blood Pressure Blood Pressure Mean Blood Pressure Position Pulse Oximetry 93 91 95 Oxygen Delivery Method Oxygen Flow Rate Sepsis Recent Fever Within 48 Hours Sepsis New/Unexplained Change in Mental Status Sepsis Action Taken by Nursing 04/02/22 10:13 04/02/22 10:20 04/02/22 10:30 Temperature Temperature Source Pulse Rate 68 70 62 Pulse Rate from SpO2 Sensor 70 64 Respiratory Rate 29 H 18 17 Respiratory Effort / Characteristics Respiratory Depth Blood Pressure 97/60 L Blood Pressure Mean 72 Blood Pressure Position Pulse Oximetry 91 91 Oxygen Delivery Method Oxygen Flow Rate Sepsis Recent Fever Within 48 Hours Sepsis New/Unexplained Change in Mental Status Sepsis Action Taken by Nursing 04/02/22 10:31 04/02/22 10:40 04/02/22 10:50 Temperature Temperature Source Pulse Rate 68 66 66 Pulse Rate from SpO2 Sensor 69 64 65 Respiratory Rate 22 24 24 Respiratory Effort / Characteristics Respiratory Depth Blood Pressure 116/53 L Blood Pressure Mean 74 Blood Pressure Position Pulse Oximetry 91 90 91 Oxygen Delivery Method Oxygen Flow Rate Sepsis Recent Fever Within 48 Hours Sepsis New/Unexplained Change in Mental Status Sepsis Action Taken by Nursing 04/02/22 11:00 04/02/22 11:10 04/02/22 11:20 Temperature Temperature Source Pulse Rate 69 64 69 Pulse Rate from SpO2 Sensor 67 65 Respiratory Rate 22 18 30 H Respiratory Effort / Characteristics Respiratory Depth Blood Pressure 111/87 Blood Pressure Mean 95 Blood Pressure Position Pulse Oximetry 92 97 Oxygen Delivery Method Oxygen Flow Rate Sepsis Recent Fever Within 48 Hours Sepsis New/Unexplained Change in Mental Status Sepsis Action Taken by Nursing 04/02/22 11:30 04/02/22 11:31 04/02/22 11:40 Temperature Temperature Source Pulse Rate 64 66 69 Pulse Rate from SpO2 Sensor 62 70 69 Respiratory Rate 18 21 18 Respiratory Effort / Characteristics Respiratory Depth Blood Pressure 129/73 Blood Pressure Mean 91 Blood Pressure Position Pulse Oximetry 98 97 98 Oxygen Delivery Method Oxygen Flow Rate Sepsis Recent Fever Within 48 Hours Sepsis New/Unexplained Change in Mental Status Sepsis Action Taken by Nursing 04/02/22 11:50 04/02/22 12:00 04/02/22 12:10 Temperature Temperature Source Pulse Rate 60 66 74 Pulse Rate from SpO2 Sensor Respiratory Rate 18 22 16 Respiratory Effort / Characteristics Respiratory Depth Blood Pressure Blood Pressure Mean Blood Pressure Position Pulse Oximetry Oxygen Delivery Method Oxygen Flow Rate Sepsis Recent Fever Within 48 Hours Sepsis New/Unexplained Change in Mental Status Sepsis Action Taken by Nursing 04/02/22 12:20 04/02/22 12:30 04/02/22 12:31 Temperature Temperature Source Pulse Rate 71 63 68 Pulse Rate from SpO2 Sensor Respiratory Rate 17 20 25 H Respiratory Effort / Characteristics Respiratory Depth Blood Pressure 136/91 Blood Pressure Mean 106 Blood Pressure Position Pulse Oximetry Oxygen Delivery Method Oxygen Flow Rate Sepsis Recent Fever Within 48 Hours Sepsis New/Unexplained Change in Mental Status Sepsis Action Taken by Nursing 04/02/22 12:40 04/02/22 12:50 04/02/22 13:00 Temperature Temperature Source Pulse Rate 66 67 67 Pulse Rate from SpO2 Sensor Respiratory Rate 24 21 24 Respiratory Effort / Characteristics Respiratory Depth Blood Pressure 136/83 Blood Pressure Mean 100 Blood Pressure Position Pulse Oximetry Oxygen Delivery Method Oxygen Flow Rate Sepsis Recent Fever Within 48 Hours Sepsis New/Unexplained Change in Mental Status Sepsis Action Taken by Nursing 04/02/22 13:10 04/02/22 13:20 04/02/22 13:30 Temperature Temperature Source Pulse Rate 68 68 69 Pulse Rate from SpO2 Sensor Respiratory Rate 23 26 H 15 Respiratory Effort / Characteristics Respiratory Depth Blood Pressure 155/88 H Blood Pressure Mean 110 Blood Pressure Position Pulse Oximetry Oxygen Delivery Method Oxygen Flow Rate Sepsis Recent Fever Within 48 Hours Sepsis New/Unexplained Change in Mental Status Sepsis Action Taken by Nursing 04/02/22 13:40 04/02/22 13:50 04/02/22 14:00 Temperature Temperature Source Pulse Rate 78 72 71 Pulse Rate from SpO2 Sensor Respiratory Rate 18 21 24 Respiratory Effort / Characteristics Respiratory Depth Blood Pressure 164/76 H Blood Pressure Mean 105 Blood Pressure Position Pulse Oximetry Oxygen Delivery Method Oxygen Flow Rate Sepsis Recent Fever Within 48 Hours Sepsis New/Unexplained Change in Mental Status Sepsis Action Taken by Nursing 04/02/22 14:10 Temperature Temperature Source Pulse Rate 69 Pulse Rate from SpO2 Sensor Respiratory Rate 25 H Respiratory Effort / Characteristics Respiratory Depth Blood Pressure Blood Pressure Mean Blood Pressure Position Pulse Oximetry Oxygen Delivery Method Oxygen Flow Rate Sepsis Recent Fever Within 48 Hours Sepsis New/Unexplained Change in Mental Status Sepsis Action Taken by Correction Medications Current Medication List: was personally reviewed by me Laboratory Data Attestation: I reviewed the patient's lab results. Result diagrams: 04/04/22 06:01 04/04/22 06:01 Lab Results 04/02/22 04/02/22 04/02/22 Range/Units 09:55 09:55 09:55 WBC 7.18 (4.8-10.8) K/uL RBC 3.41 L (4.2-5.4) M/uL Hgb 10.0 L (12.0-16.0) g/dL Hct 30.7 L (37-47) % MCV 90.0 (80-100) fL MCH 29.3 (25-34) pg MCHC 32.6 (32-36) g/dL RDW Std Deviation 45.9 (36.4-46.3) fL RDW Coeff of Popeye 13.9 (11.5-14.5) % Plt Count 326 (130-400) K/uL MPV 9.3 (7.4-10.4) fL Immature Gran % (Auto) 0.3 % Neut % (Auto) 74.9 % Lymph % (Auto) 7.7 % [place] % (Auto) 15.5 % Eos % (Auto) 1.5 % Baso % (Auto) 0.1 % Neut # (Auto) 5.38 (1.4-6.5) K/uL Lymph # (Auto) 0.55 L (1.2-3.4) K/uL [place] # (Auto) 1.11 H (0.11-0.59) K/uL Eos # (Auto) 0.11 (0-0.5) K/uL Baso # (Auto) 0.01 (0-0.2) K/uL Immature Gran # (Auto) 0.02 (0.00-0.02) K/uL PT 55.3 H (9.0-12.0) Seconds INR 5.7 H* (0.9-1.1) APTT 65.0 H* (21.0-31.0) Seconds PTT Ratio 2.4 Sodium 134 L (136-145) mmol/L Potassium 4.4 (3.5-5.1) mmol/L Chloride 97 L (98-107) mmol/L Carbon Dioxide 31 (21-32) mmol/L Anion Gap 6 (3-11) BUN 36 H (6-23) mg/dl Creatinine 1.54 H (0.6-1.2) mg/dl Est Cr Clr Drug Dosing 23.9 ml/min Est GFR ( Amer) 34.8 ml/min Est GFR (Non-Af Amer) 30.0 ml/min BUN/Creatinine Ratio 23.4 H (10-20) Glucose 136 H (70-99(Fasting)) mg/dl Calcium 9.0 (8.5-10.1) mg/dl Magnesium 2.0 (1.7-2.4) mg/dl Total Bilirubin 0.9 (0.2-1.0) mg/dl AST 22 (13-39) U/L ALT 21 (7-52) U/L Alkaline Phosphatase 126 H (34-104) U/L Troponin I High Sens 11.9 (0-14) pg/ml Total Protein 6.3 (6.0-8.3) gm/dl Albumin 3.6 (3.4-5.0) gm/dl Globulin 2.7 (2.5-4.0) gm/dl Albumin/Globulin Ratio 1.3 (0.9-2) Lipase 39 (11-82) U/L SARS-CoV-2, RNA, NAAT (NEGATIVE) 04/02/22 Range/Units 10:10 WBC (4.8-10.8) K/uL RBC (4.2-5.4) M/uL Hgb (12.0-16.0) g/dL Hct (37-47) % MCV (80-100) fL MCH (25-34) pg MCHC (32-36) g/dL RDW Std Deviation (36.4-46.3) fL RDW Coeff of Popeye (11.5-14.5) % Plt Count (130-400) K/uL MPV (7.4-10.4) fL Immature Gran % (Auto) % Neut % (Auto) % Lymph % (Auto) % [place] % (Auto) % Eos % (Auto) % Baso % (Auto) % Neut # (Auto) (1.4-6.5) K/uL Lymph # (Auto) (1.2-3.4) K/uL [place] # (Auto) (0.11-0.59) K/uL Eos # (Auto) (0-0.5) K/uL Baso # (Auto) (0-0.2) K/uL Immature Gran # (Auto) (0.00-0.02) K/uL PT (9.0-12.0) Seconds INR (0.9-1.1) APTT (21.0-31.0) Seconds PTT Ratio Sodium (136-145) mmol/L Potassium (3.5-5.1) mmol/L Chloride (98-107) mmol/L Carbon Dioxide (21-32) mmol/L Anion Gap (3-11) BUN (6-23) mg/dl Creatinine (0.6-1.2) mg/dl Est Cr Clr Drug Dosing ml/min Est GFR ( Amer) ml/min Est GFR (Non-Af Amer) ml/min BUN/Creatinine Ratio (10-20) Glucose (70-99(Fasting)) mg/dl Calcium (8.5-10.1) mg/dl Magnesium (1.7-2.4) mg/dl Total Bilirubin (0.2-1.0) mg/dl AST (13-39) U/L ALT (7-52) U/L Alkaline Phosphatase (34-104) U/L Troponin I High Sens (0-14) pg/ml Total Protein (6.0-8.3) gm/dl Albumin (3.4-5.0) gm/dl Globulin (2.5-4.0) gm/dl Albumin/Globulin Ratio (0.9-2) Lipase (11-82) U/L SARS-CoV-2, RNA, NAAT NEGATIVE (NEGATIVE) Administered Medications Diltiazem HCl (Diltiazem Hcl 120 Mg Er Cap) 240 mg PO QAM [facility] Stop: 05/03/22 08:59 Last Admin: 04/04/22 08:22 Dose: 240 mg Documented by: [id number] Admin: 04/03/22 08:00 Dose: 240 mg Documented by: [id number] Furosemide (Furosemide 20 Mg Tab) 60 mg PO [id number] [facility] Stop: 05/03/22 16:59 Last Admin: 04/04/22 08:22 Dose: 60 mg Documented by: [id number] Admin: 04/03/22 15:36 Dose: 60 mg Documented by: [id number] Insulin Aspart (Insulin Aspart Per Unit) 0 units SC ACHS [facility] Stop: 05/02/22 17:42 Last Admin: 04/04/22 08:22 Dose: Not Given Documented by: [id number] Admin: 04/03/22 20:30 Dose: Not Given Documented by: [id number] Admin: 04/03/22 16:32 Dose: Not Given Documented by: [id number] Admin: 04/03/22 12:03 Dose: Not Given Documented by: [id number] Admin: 04/03/22 09:06 Dose: Not Given Documented by: [id number] Admin: 04/02/22 22:31 Dose: Not Given Documented by: [id number] Admin: 04/02/22 19:00 Dose: Not Given Documented by: [id number] Cosigned by: [id number] Isosorbide Mononitrate (Isosorbide [place] Extended Rel 30 Mg Tabcr) 30 mg PO QAM [facility] Stop: 05/03/22 11:59 Last Admin: 04/04/22 08:22 Dose: 30 mg Documented by: [id number] Admin: 04/03/22 14:17 Dose: 30 mg Documented by: [id number] Levothyroxine Sodium (Levothyroxine Sodium 75 Mcg Tablet) 75 mcg PO DAILYBB [facility] Stop: 05/03/22 06:29 Last Admin: 04/04/22 06:19 Dose: 75 mcg Documented by: [id number] Admin: 04/03/22 05:45 Dose: 75 mcg Documented by: [id number] Lisinopril (Lisinopril 5 Mg Tab) 5 mg PO QAM [facility] Stop: 05/03/22 08:59 Last Admin: 04/04/22 08:22 Dose: 5 mg Documented by: [id number] Admin: 04/03/22 08:00 Dose: 5 mg Documented by: [id number] Magnesium Oxide (Magnesium Oxide 400 Mg Tab) 400 mg PO BID [facility] Stop: 05/02/22 20:59 Last Admin: 04/04/22 08:22 Dose: 400 mg Documented by: [id number] Admin: 04/03/22 20:34 Dose: 400 mg Documented by: [id number] Admin: 04/03/22 08:00 Dose: 400 mg Documented by: [id number] Admin: 04/02/22 19:47 Dose: 400 mg Documented by: [id number] Metoprolol Succinate (Metoprolol Succ 50mg Ext Rel Tab) 100 mg PO BID [facility] Stop: 05/02/22 20:59 Last Admin: 04/04/22 08:22 Dose: 100 mg Documented by: [id number] Admin: 04/03/22 20:34 Dose: 100 mg Documented by: [id number] Admin: 04/03/22 08:00 Dose: 100 mg Documented by: [id number] Admin: 04/02/22 20:25 Dose: 100 mg Documented by: [id number] Pantoprazole Sodium (Pantoprazole 40 Mg Tab) 40 mg PO QAM [facility] Stop: 05/03/22 08:59 Last Admin: 04/04/22 08:22 Dose: 40 mg Documented by: [id number] Admin: 04/03/22 08:01 Dose: 40 mg Documented by: [id number] Rosuvastatin Calcium (Rosuvastatin Calcium 20 Mg Tab) 20 mg PO PM [facility] Stop: 05/02/22 20:59 Last Admin: 04/03/22 20:35 Dose: 20 mg Documented by: [id number] Admin: 04/02/22 19:50 Dose: 20 mg Documented by: [id number] Discontinued Medications Furosemide (Furosemide 40 Mg/4 Ml Vial) 40 mg IV NOW STA Stop: 04/02/22 10:46 Last Admin: 04/02/22 12:01 Dose: 40 mg Documented by: [id number] Furosemide (Furosemide 40 Mg/4 Ml Vial) 60 mg IV [id number] [facility] Stop: 05/02/22 17:42 Last Admin: 04/03/22 08:01 Dose: 60 mg Documented by: [id number] Admin: 04/02/22 19:48 Dose: 60 mg Documented by: [id number] Imaging Data Radiologist's Impression: Chest X-Ray 04/02/22 09:28 XR chest 1V portable CLINICAL HISTORY: Chest Pain. COMPARISON STUDY: 03/11/2022 TECHNIQUE: 1 view of the chest FINDINGS: Single frontal view of the chest demonstrates the heart to again be moderately to markedly enlarged with cardiac pacer in place. There is again evidence for very mild central vascular congestion. No peripheral interstitial edema is seen. There is no evidence for pleural effusion. No alveolar opacities are identified. There is no acute osseous pathology. IMPRESSION: 1. There is again moderate to marked cardiomegaly with mild central vascular congestion. 2. No peripheral interstitial edema or alveolar opacities. ACT 112: Negative or not required by law. Electronically signed by: Morris Teran M.D. 04/02/2022 10:30 AM Discharge Plan Visit Data Chief Complaint: Chest Pain ED Provider: Josselyn Coronado Discharge Problem: CHF (congestive heart failure), Anticoagulated on Coumadin, Atrial fibril lation, Chest pain, Acute dyspnea Patient Disposition: Admitted As Inpatient Discharge Instructions Interventions: ED Discharge Assessment Last Done: 04/02/22 16:30
[2022-04-02] MEDS ORDERED: GLUCOSE 10 TABS/TUBE PO PRN (17:43)
[2022-04-02] MEDS ORDERED: ALBUTEROL 0.083% NEBU SOLN 3 ML VIAL NEB PRN (17:43)
[2022-04-02] MEDS ORDERED: CARBOHYDRATES FOR HYPOGLYCEMIA PO PRN (17:43)
[2022-04-02] MEDS ORDERED: ACETAMINOPHEN 325 MG TAB PO PRN (17:43)
[2022-04-02] MEDS ORDERED: ONDANSETRON INJ 2 MG/ML 2 ML VIAL IV PRN (17:43)
[2022-04-02] MEDS ORDERED: DEXTROSE 50% 50 ML SYRINGE IV PRN (17:43)
[2022-04-02] MEDS ORDERED: GLUCAGON FOR INJ 1 MG VIAL SQ PRN (17:43)
[2022-04-02] MEDS ORDERED: GLUCOSE 40% GEL 15 GM TUBE PO PRN (17:43)
[2022-04-02] MEDS: INSULIN ASPART PER UNIT SC SCH ×2 (19:00→22:31)
[2022-04-02] MEDS: MAGNESIUM OXIDE 400 MG TAB PO SCH (19:47)
[2022-04-02] MEDS: FUROSEMIDE 40 MG/4 ML VIAL IV SCH (19:48)
[2022-04-02] MEDS: ROSUVASTATIN CALCIUM 20 MG TAB PO SCH (19:50)
[2022-04-02] MEDS: METOPROLOL SUCC 50MG EXT REL TAB PO SCH (20:25)
[2022-04-03] MEDS: LEVOTHYROXINE SODIUM 75 MCG TABLET PO SCH (05:45)
[2022-04-03 07:20] LABS: Hematocrit (blood only) 31.8 % (37-47); Hemoglobin 10.2 g/dL (12.0-16.0); Mean Corpuscular Hemoglobin 29.7 pg (25-34); Mean Corpuscular Hgb Conc 32.1 g/dL (32-36); Mean Corpuscular Volume 92.7 fL (80-100); Mean Platelet Volume 9.5 fL (7.4-10.4); Platelet Count 352 K/uL (130-400); RDW Standard Deviation 47.8 fL (36.4-46.3); Red Blood Count 3.43 M/uL (4.2-5.4)
[2022-04-03 07:34] LABS: Prothrombin Time 61.3 Seconds (9.0-12.0)
[2022-04-03 07:37] LABS: Albumin Globulin Ratio 1.2 (0.9-2); Albumin Level 3.6 gm/dl (3.4-5.0); BUN Creatinine Ratio 22.9 (10-20); Bilirubin,Total 0.8 mg/dl (0.2-1.0); Creatinine Clr Calc Pharmacy 26.5 ml/min; Est GFR (African American) 39.1 ml/min; Est GFR (Non-African American) 33.7 ml/min; Globulin 2.9 gm/dl (2.5-4.0); Magnesium 1.9 mg/dl (1.7-2.4); Potassium 3.9 mmol/L (3.5-5.1); Total Protein 6.5 gm/dl (6.0-8.3)
[2022-04-03 07:50] LABS: INR 6.4 (0.9-1.1)
--- NOTE | 2022-04-03 07:52 | Hospitalist Progress Note ---
Date of Service April 03, 2022 Assessment & Plan (1) Acute on chronic diastolic CHF (congestive heart failure), NYHA class 3: (2) MACARIO (dyspnea on exertion): Plan: - Admitted to med surg with tele - Troponin negative - EKG reviewed as above - Last 2 D echo 03/12/22 showing EF of 55-60%, severely dilated left atrium, severe mitral annular calcification, moderate mitral regurg, mild tricuspid regurg, moderate to severe pulmonary hypertension - Continue IV diuresis with lasix 60 mg BID - PT/OT consulted - Baseline weight per the patient is 185 lbs, currently 188 lbs - Strict i/os, daily weights, fluid restriction with HH/DM diet of 1500mL - Cardiology consulted -switch to p.o. Lasix, 60 mg p.o. twice daily. 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 PPx: - teds, scds, no chemical prophylaxis secondary to elevated INR CODE: DNR/DNI Dispo: From home, likely to remain in the hospital x 1-2 days Admission and Anticipated Discharge Date Admission Date: April 02, 2022 Subjective Patient seen in follow-up of CHF exacerbation She is sitting up in the chair, in no acute distress She tells me that she feels comfortable, denies any chest pain, shortness of breath, palpitations, dizziness Review of Systems Review of Systems: All systems reviewed & are unremarkable except as noted in Subjective Physical Exam Physical Exam: General: Elderly obese F in NAD Head: Normocephalic, atraumatic ENT: PERRL, EOMI on right eye, + eye patch over the left side so not examined Chest: Clear to auscultation, + faint crackles at bases, no wheezes or rales Cardiac: Iregularly irregular rate controlled in the 60s, + pacemaker, + faint systolic ejection murmur Abdominal: NABS x 4 quadrants, + obese, soft, nondistended, nontender to palpation, no rebound or guarding Extremities:+ chronic varicose veins throughout lower extremities, + 2 edema in BLE, nonpitting, no peripheral erythema Psych: Normal mood and affect Neuro: AAO x 3, strength intact bilaterally and rated 4/5, no motor deficits, speech is clear, no peripheral sensory deficits Results & Data Results & Data ([facility]) Vital Signs (Past 12 Hours) Vital Signs Temp Pulse Pulse Resp BP Pulse Ox 04/03/22 07:30 36.6 C 77 20 120/79 99 04/03/22 07:18 71 04/03/22 04:57 36.7 C 97 H 18 159/97 H 97 04/03/22 00:33 92 H 04/02/22 23:17 36.8 C 85 18 128/79 95 04/02/22 23:00 72 25 H 98 Laboratory Results 04/03/22 04/03/22 04/03/22 Range/Units 06:16 06:16 06:16 WBC (4.8-10.8) K/uL RBC (4.2-5.4) M/uL Hgb (12.0-16.0) g/dL Hct (37-47) % MCV (80-100) fL MCH (25-34) pg MCHC (32-36) g/dL RDW Std Deviation (36.4-46.3) fL RDW Coeff of Popeye (11.5-14.5) % Plt Count (130-400) K/uL MPV (7.4-10.4) fL Immature Gran % (Auto) % Neut % (Auto) % Lymph % (Auto) % [place] % (Auto) % Eos % (Auto) % Baso % (Auto) % Neut # (Auto) (1.4-6.5) K/uL Lymph # (Auto) (1.2-3.4) K/uL [place] # (Auto) (0.11-0.59) K/uL Eos # (Auto) (0-0.5) K/uL Baso # (Auto) (0-0.2) K/uL Immature Gran # (Auto) (0.00-0.02) K/uL PT 61.3 H (9.0-12.0) Seconds INR 6.4 H* (0.9-1.1) APTT (21.0-31.0) Seconds PTT Ratio Sodium 137 (136-145) mmol/L Potassium 3.9 (3.5-5.1) mmol/L Chloride 95 L (98-107) mmol/L Carbon Dioxide 36 H (21-32) mmol/L Anion Gap 6 (3-11) BUN 32 H (6-23) mg/dl Creatinine 1.40 H (0.6-1.2) mg/dl Est Cr Clr Drug Dosing 26.5 ml/min Est GFR ( Amer) 39.1 ml/min Est GFR (Non-Af Amer) 33.7 ml/min BUN/Creatinine Ratio 22.9 H (10-20) Glucose 101 H (70-99(Fasting)) mg/dl POC Glucose (70-99) mg/dl Calcium 9.0 (8.5-10.1) mg/dl Magnesium 1.9 (1.7-2.4) mg/dl Total Bilirubin 0.8 (0.2-1.0) mg/dl AST 20 (13-39) U/L ALT 20 (7-52) U/L Alkaline Phosphatase 135 H (34-104) U/L Troponin I High Sens (0-14) pg/ml B-Natriuretic Peptide 325 H (0-100) pg/ml Total Protein 6.5 (6.0-8.3) gm/dl Albumin 3.6 (3.4-5.0) gm/dl Globulin 2.9 (2.5-4.0) gm/dl Albumin/Globulin Ratio 1.2 (0.9-2) Lipase (11-82) U/L SARS-CoV-2, RNA, NAAT (NEGATIVE) 04/03/22 04/02/22 04/02/22 Range/Units 06:16 20:34 15:47 WBC 6.80 (4.8-10.8) K/uL RBC 3.43 L (4.2-5.4) M/uL Hgb 10.2 L (12.0-16.0) g/dL Hct 31.8 L (37-47) % MCV 92.7 (80-100) fL MCH 29.7 (25-34) pg MCHC 32.1 (32-36) g/dL RDW Std Deviation 47.8 H (36.4-46.3) fL RDW Coeff of Popeye 14.0 (11.5-14.5) % Plt Count 352 (130-400) K/uL MPV 9.5 (7.4-10.4) fL Immature Gran % (Auto) % Neut % (Auto) % Lymph % (Auto) % [place] % (Auto) % Eos % (Auto) % Baso % (Auto) % Neut # (Auto) (1.4-6.5) K/uL Lymph # (Auto) (1.2-3.4) K/uL [place] # (Auto) (0.11-0.59) K/uL Eos # (Auto) (0-0.5) K/uL Baso # (Auto) (0-0.2) K/uL Immature Gran # (Auto) (0.00-0.02) K/uL PT (9.0-12.0) Seconds INR (0.9-1.1) APTT (21.0-31.0) Seconds PTT Ratio Sodium (136-145) mmol/L Potassium (3.5-5.1) mmol/L Chloride (98-107) mmol/L Carbon Dioxide (21-32) mmol/L Anion Gap (3-11) BUN (6-23) mg/dl Creatinine (0.6-1.2) mg/dl Est Cr Clr Drug Dosing ml/min Est GFR ( Amer) ml/min Est GFR (Non-Af Amer) ml/min BUN/Creatinine Ratio (10-20) Glucose (70-99(Fasting)) mg/dl POC Glucose 128 H (70-99) mg/dl Calcium (8.5-10.1) mg/dl Magnesium (1.7-2.4) mg/dl Total Bilirubin (0.2-1.0) mg/dl AST (13-39) U/L ALT (7-52) U/L Alkaline Phosphatase (34-104) U/L Troponin I High Sens 10.3 (0-14) pg/ml B-Natriuretic Peptide (0-100) pg/ml Total Protein (6.0-8.3) gm/dl Albumin (3.4-5.0) gm/dl Globulin (2.5-4.0) gm/dl Albumin/Globulin Ratio (0.9-2) Lipase (11-82) U/L SARS-CoV-2, RNA, NAAT (NEGATIVE) 04/02/22 04/02/22 04/02/22 Range/Units 13:04 10:10 09:55 WBC (4.8-10.8) K/uL RBC (4.2-5.4) M/uL Hgb (12.0-16.0) g/dL Hct (37-47) % MCV (80-100) fL MCH (25-34) pg MCHC (32-36) g/dL RDW Std Deviation (36.4-46.3) fL RDW Coeff of Popeye (11.5-14.5) % Plt Count (130-400) K/uL MPV (7.4-10.4) fL Immature Gran % (Auto) % Neut % (Auto) % Lymph % (Auto) % [place] % (Auto) % Eos % (Auto) % Baso % (Auto) % Neut # (Auto) (1.4-6.5) K/uL Lymph # (Auto) (1.2-3.4) K/uL [place] # (Auto) (0.11-0.59) K/uL Eos # (Auto) (0-0.5) K/uL Baso # (Auto) (0-0.2) K/uL Immature Gran # (Auto) (0.00-0.02) K/uL PT (9.0-12.0) Seconds INR (0.9-1.1) APTT (21.0-31.0) Seconds PTT Ratio Sodium 134 L (136-145) mmol/L Potassium 4.4 (3.5-5.1) mmol/L Chloride 97 L (98-107) mmol/L Carbon Dioxide 31 (21-32) mmol/L Anion Gap 6 (3-11) BUN 36 H (6-23) mg/dl Creatinine 1.54 H (0.6-1.2) mg/dl Est Cr Clr Drug Dosing 23.9 ml/min Est GFR ( Amer) 34.8 ml/min Est GFR (Non-Af Amer) 30.0 ml/min BUN/Creatinine Ratio 23.4 H (10-20) Glucose 136 H (70-99(Fasting)) mg/dl POC Glucose (70-99) mg/dl Calcium 9.0 (8.5-10.1) mg/dl Magnesium 2.0 (1.7-2.4) mg/dl Total Bilirubin 0.9 (0.2-1.0) mg/dl AST 22 (13-39) U/L ALT 21 (7-52) U/L Alkaline Phosphatase 126 H (34-104) U/L Troponin I High Sens 11.9 (0-14) pg/ml B-Natriuretic Peptide 373 H (0-100) pg/ml Total Protein 6.3 (6.0-8.3) gm/dl Albumin 3.6 (3.4-5.0) gm/dl Globulin 2.7 (2.5-4.0) gm/dl Albumin/Globulin Ratio 1.3 (0.9-2) Lipase 39 (11-82) U/L SARS-CoV-2, RNA, NAAT NEGATIVE (NEGATIVE) 04/02/22 04/02/22 Range/Units 09:55 09:55 WBC 7.18 (4.8-10.8) K/uL RBC 3.41 L (4.2-5.4) M/uL Hgb 10.0 L (12.0-16.0) g/dL Hct 30.7 L (37-47) % MCV 90.0 (80-100) fL MCH 29.3 (25-34) pg MCHC 32.6 (32-36) g/dL RDW Std Deviation 45.9 (36.4-46.3) fL RDW Coeff of Popeye 13.9 (11.5-14.5) % Plt Count 326 (130-400) K/uL MPV 9.3 (7.4-10.4) fL Immature Gran % (Auto) 0.3 % Neut % (Auto) 74.9 % Lymph % (Auto) 7.7 % [place] % (Auto) 15.5 % Eos % (Auto) 1.5 % Baso % (Auto) 0.1 % Neut # (Auto) 5.38 (1.4-6.5) K/uL Lymph # (Auto) 0.55 L (1.2-3.4) K/uL [place] # (Auto) 1.11 H (0.11-0.59) K/uL Eos # (Auto) 0.11 (0-0.5) K/uL Baso # (Auto) 0.01 (0-0.2) K/uL Immature Gran # (Auto) 0.02 (0.00-0.02) K/uL PT 55.3 H (9.0-12.0) Seconds INR 5.7 H* (0.9-1.1) APTT 65.0 H* (21.0-31.0) Seconds PTT Ratio 2.4 Sodium (136-145) mmol/L Potassium (3.5-5.1) mmol/L Chloride (98-107) mmol/L Carbon Dioxide (21-32) mmol/L Anion Gap (3-11) BUN (6-23) mg/dl Creatinine (0.6-1.2) mg/dl Est Cr Clr Drug Dosing ml/min Est GFR ( Amer) ml/min Est GFR (Non-Af Amer) ml/min BUN/Creatinine Ratio (10-20) Glucose (70-99(Fasting)) mg/dl POC Glucose (70-99) mg/dl Calcium (8.5-10.1) mg/dl Magnesium (1.7-2.4) mg/dl Total Bilirubin (0.2-1.0) mg/dl AST (13-39) U/L ALT (7-52) U/L Alkaline Phosphatase (34-104) U/L Troponin I High Sens (0-14) pg/ml B-Natriuretic Peptide (0-100) pg/ml Total Protein (6.0-8.3) gm/dl Albumin (3.4-5.0) gm/dl Globulin (2.5-4.0) gm/dl Albumin/Globulin Ratio (0.9-2) Lipase (11-82) U/L SARS-CoV-2, RNA, NAAT (NEGATIVE) Medications Administered Current Inpatient Medications Acetaminophen (Acetaminophen 325 Mg Tab) 650 mg PO Q4H PRN PRN Reason: Moderate Pain Stop: 05/02/22 17:42 Albuterol (Albuterol 0.083% Nebu Soln 3 Ml Vial) 2.5 mg NEB Q6R PRN; Protocol PRN Reason: Shortness Of Breath Or Wheezing Stop: 05/02/22 17:42 Dextrose (Dextrose 50% 50 Ml Syringe) 25 - 50 ml IV UD PRN; Protocol PRN Reason: Hypoglycemia Protocol Stop: 05/02/22 17:42 Diltiazem HCl (Diltiazem Hcl 120 Mg Er Cap) 240 mg PO QAM [facility] Stop: 05/03/22 08:59 Furosemide (Furosemide 40 Mg/4 Ml Vial) 60 mg IV BID17 [facility] Stop: 05/02/22 17:42 Last Admin: 04/02/22 19:48 Dose: 60 mg Documented by: Glucagon (Glucagon For Inj 1 Mg Vial) 1 mg SQ UD PRN; Protocol PRN Reason: Hypoglycemia Protocol Stop: 05/02/22 17:42 Glucose (Glucose 10 Tabs/Tube) 4 - 8 tabs PO UD PRN; Protocol PRN Reason: Hypoglycemia Protocol Stop: 05/02/22 17:42 Glucose (Glucose 40% Gel 15 Gm Tube) 15 - 30 gm PO UD PRN; Protocol PRN Reason: Hypoglycemia Protocol Stop: 05/02/22 17:42 Insulin Aspart (Insulin Aspart Per Unit) 0 units SC ACHS [facility] Stop: 05/02/22 17:42 Last Admin: 04/02/22 22:31 Dose: Not Given Documented by: Levothyroxine Sodium (Levothyroxine Sodium 75 Mcg Tablet) 75 mcg PO DAILYBB [facility] Stop: 05/03/22 06:29 Last Admin: 04/03/22 05:45 Dose: 75 mcg Documented by: Lisinopril (Lisinopril 5 Mg Tab) 5 mg PO QAM [facility] Stop: 05/03/22 08:59 Magnesium Oxide (Magnesium Oxide 400 Mg Tab) 400 mg PO BID [facility] Stop: 05/02/22 20:59 Last Admin: 04/02/22 19:47 Dose: 400 mg Documented by: Metoprolol Succinate (Metoprolol Succ 50mg Ext Rel Tab) 100 mg PO BID [facility] Stop: 05/02/22 20:59 Last Admin: 04/02/22 20:25 Dose: 100 mg Documented by: Miscellaneous (Carbohydrates For Hypoglycemia ) 15 - 30 gm PO UD PRN PRN Reason: Hypoglycemia Protocol Stop: 05/02/22 17:42 Ondansetron HCl (Ondansetron Inj 2 Mg/Ml 2 Ml Vial) 4 mg IV Q4H PRN PRN Reason: Nausea And Vomiting Stop: 05/02/22 17:42 Pantoprazole Sodium (Pantoprazole 40 Mg Tab) 40 mg PO QAM [facility] Stop: 05/03/22 08:59 Rosuvastatin Calcium (Rosuvastatin Calcium 20 Mg Tab) 20 mg PO PM [facility] Stop: 05/02/22 20:59 Last Admin: 04/02/22 19:50 Dose: 20 mg Documented by:
[2022-04-03] MEDS: lisinopril 5 MG TAB PO SCH (08:00)
[2022-04-03] MEDS: MAGNESIUM OXIDE 400 MG TAB PO SCH ×2 (08:00→20:34)
[2022-04-03] MEDS: METOPROLOL SUCC 50MG EXT REL TAB PO SCH ×2 (08:00→20:34)
[2022-04-03] MEDS: FUROSEMIDE 40 MG/4 ML VIAL IV SCH (08:01)
[2022-04-03] MEDS: PANTOprazole 40 MG TAB PO SCH (08:01)
[2022-04-03] MEDS: INSULIN ASPART PER UNIT SC SCH ×4 (09:06→20:30)
--- NOTE | 2022-04-03 11:42 | Cardiology Consultation ---
Date of Consultation April 03, 2022 Assessment & Plan (1) Acute on chronic diastolic CHF (congestive heart failure), NYHA class 3: (2) Atrial fibrillation: (3) Hypertension: Patient is a complex 87-year-old female presents with atypical chest pressure and shortness of breath. Mild decompensated chronic diastolic heart failure. Exam not reflective of significant volume overload at this time. Patient with chronic stasis edema and has responded to IV diuretics. Plan: Hold further IV diuretics. Resume oral furosemide at 60 mg twice per day. Patient not a candidate for spironolactone given past hyperkalemia. Add isosorbide mononitrate 30 mg p.o. daily for blood pressure and preload reduction. We will need to follow hemoglobin closely given supratherapeutic INR History of Present Illness Reason for Consultation: Diastolic heart failure, chest pain Requesting Physician: Dr Soliz Attending Physician: Kwaku Soliz MD History of Present Illness Patient is an 87-year-old female with recent hospitalization, full cardiology consultation on 03/11/2022 please refer to full data. Underlying history is notable for diastolic heart failure and multiple medical issues as listed below 1.Chronic atrial fibrillation rate controlled on chronic Coumadin therapy. 2.Tachybrady syndrome status post permanent pacemaker placement with a single lead. 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 4.Diastolic dysfunction with normal LV systolic function. 5.Diabetes. 6.Asthma. 7.Hypertension. 8.Hyperlipidemia. 9.Carotid occlusive disease. 10.Elevated BMI. 11.Hypothyroidism. 12.Stage 3chronic kidney disease. Patient presents this admission noting 2 to 3 days increasing exertional dyspnea and slight weight gain. Had been compliant with diuretics. Wears oxygen at night at home but required more often during the day. No fevers chills or productive cough. 1 episode of chest pressure sensation. Patient improved since admission with IV diuretics. Has been noted to incident ally have supratherapeutic INR on chronic anticoagulation with warfarin. No overt bleeding difficulties. No dizziness lightheadedness syncope or near syncope. Appetite is generally good. Patient feels well at the time of examination Allergies Allergy/AdvReac Type Severity Reaction Status Date / Time Penicillins Allergy Intermediate RASH Verified 03/11/22 18:03 Home Medications Medication Instructions Recorded Confirmed Type magnesium oxide 400 mg PO BID #0 12/25/14 04/02/22 History pantoprazole 40 mg tablet,delayed 40 mg PO QAM #0 12/25/14 04/02/22 History release diltiazem HCl 240 mg 240 mg PO QAM #0 09/30/17 04/02/22 History tablet,extended release 24 hr metoprolol succinate 100 mg 100 mg PO BID #0 10/15/17 04/02/22 History tablet,extended release 24 hr sitagliptin 50 mg tablet (Januvia) 50 mg PO QAM #0 tab 02/22/18 04/02/22 History levothyroxine 75 mcg tablet 75 mcg PO QAM 90 Days #90 tab 05/25/18 04/02/22 History albuterol sulfate 90 mcg/actuation 2 inh INHALATION DIRECTED PRN 04/14/19 04/02/22 History aerosol inhaler (Ventolin HFA) rosuvastatin 20 mg tablet 20 mg PO PM 04/14/19 04/02/22 History warfarin 5 mg tablet (Jantoven) 5 mg PO [id number] 04/14/19 04/02/22 History ergocalciferol (vitamin D2) 1,250 1,250 mcg PO WK 10/02/20 04/02/22 History mcg (50,000 unit) capsule (Vitamin D2) furosemide 40 mg tablet 40 mg PO BID 10/02/20 04/02/22 History lisinopril 5 mg tablet 5 mg PO QAM 10/02/20 04/02/22 History warfarin 5 mg tablet (Jantoven) 2.5 mg PO WK 10/02/20 04/02/22 History Patient History Medical History Anticoagulated on Coumadin Asthma Atrial fibrillation (04/18/13) CHF (congestive heart failure) Diabetes Hypertension Surgical History Appendectomy (04/18/13) Social History Smoking Status: Never smoker Second Hand Exposure: No; Hx Alcohol Use: Yes Hx Substance Use: No Preferred Language: Japanese Communication Ability: Effective Court Security Officer Required: No Beliefs That Will Affect Care: None marital status: Current Living Situation: Spouse and Family Feels Safe at Home: Yes Assistive Devices: Cane, CPAP, Oxygen - at Night and Walker Review of Systems Review of Systems: All systems reviewed & are unremarkable except as noted in HPI & below Results & Data ([facility]) Vital Signs (Past 12 Hours) Vital Signs Temp Pulse Pulse Resp BP Pulse Ox 04/03/22 07:30 36.6 C 77 20 120/79 99 04/03/22 07:18 71 04/03/22 04:57 36.7 C 97 H 18 159/97 H 97 04/03/22 00:33 92 H Laboratory Results Laboratory Results - last 24 hr 04/02/22 04/02/22 04/02/22 13:04 15:47 20:34 WBC RBC Hgb Hct MCV MCH MCHC RDW Std Deviation RDW Coeff of Popeye Plt Count MPV PT INR Sodium Potassium Chloride Carbon Dioxide Anion Gap BUN Creatinine Est Cr Clr Drug Dosing Est GFR ( Amer) Est GFR (Non-Af Amer) BUN/Creatinine Ratio Glucose POC Glucose 128 H Calcium Magnesium Total Bilirubin AST ALT Alkaline Phosphatase Troponin I High Sens 10.3 B-Natriuretic Peptide 373 H Total Protein Albumin Globulin Albumin/Globulin Ratio 04/03/22 04/03/22 04/03/22 06:16 06:16 06:16 WBC 6.80 RBC 3.43 L Hgb 10.2 L Hct 31.8 L MCV 92.7 MCH 29.7 MCHC 32.1 RDW Std Deviation 47.8 H RDW Coeff of Popeye 14.0 Plt Count 352 MPV 9.5 PT 61.3 H INR 6.4 H* Sodium 137 Potassium 3.9 Chloride 95 L Carbon Dioxide 36 H Anion Gap 6 BUN 32 H Creatinine 1.40 H Est Cr Clr Drug Dosing 26.5 Est GFR ( Amer) 39.1 Est GFR (Non-Af Amer) 33.7 BUN/Creatinine Ratio 22.9 H Glucose 101 H POC Glucose Calcium 9.0 Magnesium 1.9 Total Bilirubin 0.8 AST 20 ALT 20 Alkaline Phosphatase 135 H Troponin I High Sens B-Natriuretic Peptide Total Protein 6.5 Albumin 3.6 Globulin 2.9 Albumin/Globulin Ratio 1.2 04/03/22 06:16 WBC RBC Hgb Hct MCV MCH MCHC RDW Std Deviation RDW Coeff of Popeye Plt Count MPV PT INR Sodium Potassium Chloride Carbon Dioxide Anion Gap BUN Creatinine Est Cr Clr Drug Dosing Est GFR ( Amer) Est GFR (Non-Af Amer) BUN/Creatinine Ratio Glucose POC Glucose Calcium Magnesium Total Bilirubin AST ALT Alkaline Phosphatase Troponin I High Sens B-Natriuretic Peptide 325 H Total Protein Albumin Globulin Albumin/Globulin Ratio
[2022-04-03] MEDS: ISOSORBIDE MONO EXTENDED REL 30 MG TABCR PO SCH (14:17)
[2022-04-03] MEDS: FUROSEMIDE 20 MG TAB PO SCH (15:36)
[2022-04-03] MEDS: ROSUVASTATIN CALCIUM 20 MG TAB PO SCH (20:35)
[2022-04-04] MEDS: LEVOTHYROXINE SODIUM 75 MCG TABLET PO SCH (06:19)
[2022-04-04 06:25] LABS: Hematocrit (blood only) 29.6 % (37-47); Hemoglobin 9.5 g/dL (12.0-16.0); Mean Corpuscular Hemoglobin 29.5 pg (25-34); Mean Corpuscular Hgb Conc 32.1 g/dL (32-36); Mean Corpuscular Volume 91.9 fL (80-100); Mean Platelet Volume 9.3 fL (7.4-10.4); Platelet Count 354 K/uL (130-400); RDW Coefficient of Variation 13.7 % (11.5-14.5); RDW Standard Deviation 46.1 fL (36.4-46.3); Red Blood Count 3.22 M/uL (4.2-5.4)
[2022-04-04 07:09] LABS: Albumin Globulin Ratio 1.2 (0.9-2); Albumin Level 3.3 gm/dl (3.4-5.0); BUN Creatinine Ratio 25.7 (10-20); Bilirubin,Total 0.8 mg/dl (0.2-1.0); Creatinine Clr Calc Pharmacy 25.9 ml/min; Est GFR (African American) 37.7 ml/min; Est GFR (Non-African American) 32.6 ml/min; Globulin 2.7 gm/dl (2.5-4.0); Magnesium 1.9 mg/dl (1.7-2.4); Phosphorus 2.9 mg/dl (2.5-4.9); Potassium 3.9 mmol/L (3.5-5.1)
[2022-04-04 07:50] LABS: INR 4.4 (0.9-1.1)
[2022-04-04] MEDS: INSULIN ASPART PER UNIT SC SCH ×4 (08:22→22:37)
[2022-04-04] MEDS: lisinopril 5 MG TAB PO SCH (08:22)
[2022-04-04] MEDS: FUROSEMIDE 20 MG TAB PO SCH ×2 (08:22→15:39)
[2022-04-04] MEDS: PANTOprazole 40 MG TAB PO SCH (08:22)
[2022-04-04] MEDS: MAGNESIUM OXIDE 400 MG TAB PO SCH ×2 (08:22→22:17)
[2022-04-04] MEDS: ISOSORBIDE MONO EXTENDED REL 30 MG TABCR PO SCH (08:22)
[2022-04-04] MEDS: METOPROLOL SUCC 50MG EXT REL TAB PO SCH ×2 (08:22→22:34)
[2022-04-04] MEDS ORDERED: FUROSEMIDE INJ 20 MG/2 ML VIAL IV ONE (11:26)
--- NOTE | 2022-04-04 11:35 | Hospitalist Progress Note ---
Date of Service April 04, 2022 Assessment & Plan (1) Acute on chronic diastolic CHF (congestive heart failure), NYHA class 3: (2) MACARIO (dyspnea on exertion): Plan: - Admitted to med surg with tele - Troponin negative - EKG reviewed as above - Last 2 D echo 03/12/22 showing EF of 55-60%, severely dilated left atrium, severe mitral annular calcification, moderate mitral regurg, mild tricuspid regurg, moderate to severe pulmonary hypertension - Continue IV diuresis with lasix 60 mg BID - PT/OT consulted - Baseline weight per the patient is 185 lbs, currently 188 lbs - Strict i/os, daily weights, fluid restriction with HH/DM diet of 1500mL - Cardiology consulted -switched to p.o. Lasix, 60 mg p.o. twice daily. Also started on Imdur 30 mg every morning 04/04 -patient back on oxygen, however feels comfortable. We will add small dose IV Lasix in addition to her p.o. (3) Supratherapeutic INR: (4) Atrial fibrillation: Plan: -EKG reviewed as above, rate controlled on amiodarone, -holding Coumadin with supratherapeutic INR of 5.7, INR on admission - current INR 4.4 (5) Cardiac pacemaker in situ: Plan: - History of such for SSS, placed in June 2017 -Follows with [facility] as an outpatient (6) Hypertension: Plan: -Continue metoprolol succinate 100 mg twice daily, lisinopril 5 mg daily (7) Diabetes: Plan: -ISS with Accu-Cheks ACHS, last A1c was 6.7 on 03/13 -Holding [employer] Januvia DVT PPx: - teds, scds, no chemical prophylaxis secondary to elevated INR CODE: DNR/DNI Dispo: From home, likely to remain in the hospital x 1-2 days Admission and Anticipated Discharge Date Admission Date: April 02, 2022 Subjective Patient seen in follow-up of CHF exacerbation She is sitting up in the chair, in no acute distress She tells me that she feels comfortable, denies any chest pain, shortness of breath, palpitations, dizziness Review of Systems Review of Systems: All systems reviewed & are unremarkable except as noted in Subjective Physical Exam Physical Exam: General: Elderly obese F in NAD, on 2L sat 90% Head: Normocephalic, atraumatic ENT: PERRL, EOMI on right eye, + eye patch over the left side so not examined Chest: Clear to auscultation, + faint crackles at bases, no wheezes or rales Cardiac: Iregularly irregular rate controlled in the 60s, + pacemaker, + faint systolic ejection murmur Abdominal: NABS x 4 quadrants, + obese, soft, nondistended, nontender to palpation, no rebound or guarding Extremities:+ chronic varicose veins throughout lower extremities, + 2 edema in BLE, nonpitting, no peripheral erythema Psych: Normal mood and affect Neuro: AAO x 3, strength intact bilaterally and rated 4/5, no motor deficits, speech is clear, no peripheral sensory deficits Results & Data Results & Data ([facility]) Vital Signs (Past 12 Hours) Vital Signs Temp Pulse Pulse Resp BP BP Pulse Ox 04/04/22 07:53 37.3 C 69 18 138/82 90 04/04/22 03:05 36.6 C 61 18 108/65 92 04/04/22 02:34 88 04/04/22 00:39 36.6 C 75 18 115/69 96 Laboratory Results 04/04/22 04/04/22 04/04/22 Range/Units 07:38 06:01 06:01 WBC (4.8-10.8) K/uL RBC (4.2-5.4) M/uL Hgb (12.0-16.0) g/dL Hct (37-47) % MCV (80-100) fL MCH (25-34) pg MCHC (32-36) g/dL RDW Std Deviation (36.4-46.3) fL RDW Coeff of Popeye (11.5-14.5) % Plt Count (130-400) K/uL MPV (7.4-10.4) fL PT 43.0 H (9.0-12.0) Seconds INR 4.4 H (0.9-1.1) Sodium 137 (136-145) mmol/L Potassium 3.9 (3.5-5.1) mmol/L Chloride 96 L (98-107) mmol/L Carbon Dioxide 35 H (21-32) mmol/L Anion Gap 6 (3-11) BUN 37 H (6-23) mg/dl Creatinine 1.44 H (0.6-1.2) mg/dl Est Cr Clr Drug Dosing 25.9 ml/min Est GFR ( Amer) 37.7 ml/min Est GFR (Non-Af Amer) 32.6 ml/min BUN/Creatinine Ratio 25.7 H (10-20) Glucose 109 H (70-99(Fasting)) mg/dl POC Glucose 114 H (70-99) mg/dl Calcium 9.0 (8.5-10.1) mg/dl Phosphorus 2.9 (2.5-4.9) mg/dl Magnesium 1.9 (1.7-2.4) mg/dl Total Bilirubin 0.8 (0.2-1.0) mg/dl AST 18 (13-39) U/L ALT 18 (7-52) U/L Alkaline Phosphatase 123 H (34-104) U/L Total Protein 6.0 (6.0-8.3) gm/dl Albumin 3.3 L (3.4-5.0) gm/dl Globulin 2.7 (2.5-4.0) gm/dl Albumin/Globulin Ratio 1.2 (0.9-2) 04/04/22 04/03/22 04/03/22 Range/Units 06:01 20:12 16:28 WBC 6.50 (4.8-10.8) K/uL RBC 3.22 L (4.2-5.4) M/uL Hgb 9.5 L (12.0-16.0) g/dL Hct 29.6 L (37-47) % MCV 91.9 (80-100) fL MCH 29.5 (25-34) pg MCHC 32.1 (32-36) g/dL RDW Std Deviation 46.1 (36.4-46.3) fL RDW Coeff of Popeye 13.7 (11.5-14.5) % Plt Count 354 (130-400) K/uL MPV 9.3 (7.4-10.4) fL PT (9.0-12.0) Seconds INR (0.9-1.1) Sodium (136-145) mmol/L Potassium (3.5-5.1) mmol/L Chloride (98-107) mmol/L Carbon Dioxide (21-32) mmol/L Anion Gap (3-11) BUN (6-23) mg/dl Creatinine (0.6-1.2) mg/dl Est Cr Clr Drug Dosing ml/min Est GFR ( Amer) ml/min Est GFR (Non-Af Amer) ml/min BUN/Creatinine Ratio (10-20) Glucose (70-99(Fasting)) mg/dl POC Glucose 160 H 115 H (70-99) mg/dl Calcium (8.5-10.1) mg/dl Phosphorus (2.5-4.9) mg/dl Magnesium (1.7-2.4) mg/dl Total Bilirubin (0.2-1.0) mg/dl AST (13-39) U/L ALT (7-52) U/L Alkaline Phosphatase (34-104) U/L Total Protein (6.0-8.3) gm/dl Albumin (3.4-5.0) gm/dl Globulin (2.5-4.0) gm/dl Albumin/Globulin Ratio (0.9-2) 04/03/22 Range/Units 12:00 WBC (4.8-10.8) K/uL RBC (4.2-5.4) M/uL Hgb (12.0-16.0) g/dL Hct (37-47) % MCV (80-100) fL MCH (25-34) pg MCHC (32-36) g/dL RDW Std Deviation (36.4-46.3) fL RDW Coeff of Popeye (11.5-14.5) % Plt Count (130-400) K/uL MPV (7.4-10.4) fL PT (9.0-12.0) Seconds INR (0.9-1.1) Sodium (136-145) mmol/L Potassium (3.5-5.1) mmol/L Chloride (98-107) mmol/L Carbon Dioxide (21-32) mmol/L Anion Gap (3-11) BUN (6-23) mg/dl Creatinine (0.6-1.2) mg/dl Est Cr Clr Drug Dosing ml/min Est GFR ( Amer) ml/min Est GFR (Non-Af Amer) ml/min BUN/Creatinine Ratio (10-20) Glucose (70-99(Fasting)) mg/dl POC Glucose 129 H (70-99) mg/dl Calcium (8.5-10.1) mg/dl Phosphorus (2.5-4.9) mg/dl Magnesium (1.7-2.4) mg/dl Total Bilirubin (0.2-1.0) mg/dl AST (13-39) U/L ALT (7-52) U/L Alkaline Phosphatase (34-104) U/L Total Protein (6.0-8.3) gm/dl Albumin (3.4-5.0) gm/dl Globulin (2.5-4.0) gm/dl Albumin/Globulin Ratio (0.9-2) Medications Administered Current Inpatient Medications Acetaminophen (Acetaminophen 325 Mg Tab) 650 mg PO Q4H PRN PRN Reason: Moderate Pain Stop: 05/02/22 17:42 Albuterol (Albuterol 0.083% Nebu Soln 3 Ml Vial) 2.5 mg NEB Q6R PRN; Protocol PRN Reason: Shortness Of Breath Or Wheezing Stop: 05/02/22 17:42 Dextrose (Dextrose 50% 50 Ml Syringe) 25 - 50 ml IV UD PRN; Protocol PRN Reason: Hypoglycemia Protocol Stop: 05/02/22 17:42 Diltiazem HCl (Diltiazem Hcl 120 Mg Er Cap) 240 mg PO QAM [facility] Stop: 05/03/22 08:59 Last Admin: 04/04/22 08:22 Dose: 240 mg Documented by: Furosemide (Furosemide 20 Mg Tab) 60 mg PO BID17 [facility] Stop: 05/03/22 16:59 Last Admin: 04/04/22 08:22 Dose: 60 mg Documented by: Furosemide (Furosemide Inj 20 Mg/2 Ml Vial) 20 mg IV ONE ONE Stop: 04/04/22 11:27 Glucagon (Glucagon For Inj 1 Mg Vial) 1 mg SQ UD PRN; Protocol PRN Reason: Hypoglycemia Protocol Stop: 05/02/22 17:42 Glucose (Glucose 10 Tabs/Tube) 4 - 8 tabs PO UD PRN; Protocol PRN Reason: Hypoglycemia Protocol Stop: 05/02/22 17:42 Glucose (Glucose 40% Gel 15 Gm Tube) 15 - 30 gm PO UD PRN; Protocol PRN Reason: Hypoglycemia Protocol Stop: 05/02/22 17:42 Insulin Aspart (Insulin Aspart Per Unit) 0 units SC ACHS [facility] Stop: 05/02/22 17:42 Last Admin: 04/04/22 08:22 Dose: Not Given Documented by: Isosorbide Mononitrate (Isosorbide [place] Extended Rel 30 Mg Tabcr) 30 mg PO QAM [facility] Stop: 05/03/22 11:59 Last Admin: 04/04/22 08:22 Dose: 30 mg Documented by: Levothyroxine Sodium (Levothyroxine Sodium 75 Mcg Tablet) 75 mcg PO DAILYBB [facility] Stop: 05/03/22 06:29 Last Admin: 04/04/22 06:19 Dose: 75 mcg Documented by: Lisinopril (Lisinopril 5 Mg Tab) 5 mg PO QAM [facility] Stop: 05/03/22 08:59 Last Admin: 04/04/22 08:22 Dose: 5 mg Documented by: Magnesium Oxide (Magnesium Oxide 400 Mg Tab) 400 mg PO BID [facility] Stop: 05/02/22 20:59 Last Admin: 04/04/22 08:22 Dose: 400 mg Documented by: Metoprolol Succinate (Metoprolol Succ 50mg Ext Rel Tab) 100 mg PO BID [facility] Stop: 05/02/22 20:59 Last Admin: 04/04/22 08:22 Dose: 100 mg Documented by: Miscellaneous (Carbohydrates For Hypoglycemia ) 15 - 30 gm PO UD PRN PRN Reason: Hypoglycemia Protocol Stop: 05/02/22 17:42 Ondansetron HCl (Ondansetron Inj 2 Mg/Ml 2 Ml Vial) 4 mg IV Q4H PRN PRN Reason: Nausea And Vomiting Stop: 05/02/22 17:42 Pantoprazole Sodium (Pantoprazole 40 Mg Tab) 40 mg PO QAM [facility] Stop: 05/03/22 08:59 Last Admin: 04/04/22 08:22 Dose: 40 mg Documented by: Rosuvastatin Calcium (Rosuvastatin Calcium 20 Mg Tab) 20 mg PO PM [facility] Stop: 05/02/22 20:59 Last Admin: 04/03/22 20:35 Dose: 20 mg Documented by:
--- NOTE | 2022-04-04 12:03 | Cardiology Progress Note ---
Date of Service April 04, 2022 Assessment & Plan (1) Acute on chronic diastolic CHF (congestive heart failure), NYHA class 3: (2) Atrial fibrillation: (3) Hypertension: Plan: Patient is a complex 87-year-old female presents with atypical chest pressure and shortness of breath. Mild decompensated chronic diastolic heart failure. Exam not reflective of significant volume overload at this time. Patient with chronic stasis edema and has responded to IV diuretics. Plan: Continue medications as currently ordered. No further adjustments recommended. Recontact with any further question Admission and Anticipated Discharge Date Admission Date: April 02, 2022 Subjective Patient seen and examined, chart, medications, telemetry reviewed. No acute complaints today. Oxygenating well on room air. No fevers chills, bleeding Telemetry with chronic atrial fibrillation Review of Systems Review of Systems: All systems reviewed & are unremarkable except as noted in Subjective Physical Exam Constitutional: + obese; no acute distress Eyes: Patch over left eye ENMT: external ear and nose normal, oropharynx normal Neck: trachea midline, no thyromegaly Respiratory: Auscultation: no rales Cardiovascular: Rate/Rhythm: + irregularly irregular Extremities: + edema (Chronic stasis changes) Gastrointestinal (Abdomen): Percussion/Palpation: abdomen soft; abdomen nontender Results & Data ([facility]) Vital Signs (Past 12 Hours) Vital Signs Temp Pulse Pulse Resp BP BP Pulse Ox 04/04/22 11:43 36.8 C 78 18 133/81 91 04/04/22 07:53 37.3 C 69 18 138/82 90 04/04/22 03:05 36.6 C 61 18 108/65 92 04/04/22 02:34 88 04/04/22 00:39 36.6 C 75 18 115/69 96 Laboratory Results Laboratory Results - last 24 hr 04/03/22 04/03/22 04/03/22 12:00 16:28 20:12 WBC RBC Hgb Hct MCV MCH MCHC RDW Std Deviation RDW Coeff of Popeye Plt Count MPV PT INR Sodium Potassium Chloride Carbon Dioxide Anion Gap BUN Creatinine Est Cr Clr Drug Dosing Est GFR ( Amer) Est GFR (Non-Af Amer) BUN/Creatinine Ratio Glucose POC Glucose 129 H 115 H 160 H Calcium Phosphorus Magnesium Total Bilirubin AST ALT Alkaline Phosphatase Total Protein Albumin Globulin Albumin/Globulin Ratio 04/04/22 04/04/22 04/04/22 06:01 06:01 06:01 WBC 6.50 RBC 3.22 L Hgb 9.5 L Hct 29.6 L MCV 91.9 MCH 29.5 MCHC 32.1 RDW Std Deviation 46.1 RDW Coeff of Popeye 13.7 Plt Count 354 MPV 9.3 PT 43.0 H INR 4.4 H Sodium 137 Potassium 3.9 Chloride 96 L Carbon Dioxide 35 H Anion Gap 6 BUN 37 H Creatinine 1.44 H Est Cr Clr Drug Dosing 25.9 Est GFR ( Amer) 37.7 Est GFR (Non-Af Amer) 32.6 BUN/Creatinine Ratio 25.7 H Glucose 109 H POC Glucose Calcium 9.0 Phosphorus 2.9 Magnesium 1.9 Total Bilirubin 0.8 AST 18 ALT 18 Alkaline Phosphatase 123 H Total Protein 6.0 Albumin 3.3 L Globulin 2.7 Albumin/Globulin Ratio 1.2 04/04/22 04/04/22 07:38 11:35 WBC RBC Hgb Hct MCV MCH MCHC RDW Std Deviation RDW Coeff of Popeye Plt Count MPV PT INR Sodium Potassium Chloride Carbon Dioxide Anion Gap BUN Creatinine Est Cr Clr Drug Dosing Est GFR ( Amer) Est GFR (Non-Af Amer) BUN/Creatinine Ratio Glucose POC Glucose 114 H 134 H Calcium Phosphorus Magnesium Total Bilirubin AST ALT Alkaline Phosphatase Total Protein Albumin Globulin Albumin/Globulin Ratio
--- NOTE | 2022-04-04 19:27 | Electrocardiogram Report ---
Test Reason : Blood Pressure : / mmHG Vent. Rate : 070 BPM Atrial Rate : 312 BPM P-R Int : 000 ms QRS Dur : 106 ms QT Int : 362 ms P-R-T Axes : 000 -42 -84 degrees QTc Int : 390 ms Atrial fibrillation with ocassional pacing with pseudofusion Left axis deviation Nonspecific ST and T wave abnormality Abnormal ECG When compared with ECG of 02-APR-2022 09:05, Atrial fibrillation has replaced Electronic ventricular pacemaker Confirmed by Zeyad Ayers ([id number]) on 04/04/2022 7:27:17 PM Referred By: REFERRED SELF Confirmed By:Zeyad Ayers
[2022-04-04] MEDS: ROSUVASTATIN CALCIUM 20 MG TAB PO SCH (22:18)
[2022-04-05] MEDS: LEVOTHYROXINE SODIUM 75 MCG TABLET PO SCH (06:16)
[2022-04-05 06:53] LABS: INR 3.5 (0.9-1.1); Prothrombin Time 34.6 Seconds (9.0-12.0)
[2022-04-05 07:02] LABS: Hematocrit (blood only) 30.1 % (37-47); Hemoglobin 9.8 g/dL (12.0-16.0); Mean Corpuscular Hemoglobin 29.9 pg (25-34); Mean Corpuscular Hgb Conc 32.6 g/dL (32-36); Mean Corpuscular Volume 91.8 fL (80-100); Mean Platelet Volume 9.3 fL (7.4-10.4); Platelet Count 350 K/uL (130-400); RDW Coefficient of Variation 13.9 % (11.5-14.5); RDW Standard Deviation 47.1 fL (36.4-46.3); Red Blood Count 3.28 M/uL (4.2-5.4); White Blood Count 6.57 K/uL (4.8-10.8)
[2022-04-05 07:08] LABS: BUN Creatinine Ratio 22.7 (10-20); Calcium 8.8 mg/dl (8.5-10.1); Creatinine Clr Calc Pharmacy 22.9 ml/min; Est GFR (African American) 32.5 ml/min; Phosphorus 3.4 mg/dl (2.5-4.9); Potassium 4.3 mmol/L (3.5-5.1)
[2022-04-05] MEDS: INSULIN ASPART PER UNIT SC SCH ×4 (08:29→20:00)
[2022-04-05] MEDS: METOPROLOL SUCC 50MG EXT REL TAB PO SCH ×2 (08:35→19:27)
[2022-04-05] MEDS: ISOSORBIDE MONO EXTENDED REL 30 MG TABCR PO SCH (08:35)
[2022-04-05] MEDS: MAGNESIUM OXIDE 400 MG TAB PO SCH ×2 (08:36→19:27)
[2022-04-05] MEDS: FUROSEMIDE 20 MG TAB PO SCH ×2 (08:36→16:38)
[2022-04-05] MEDS: PANTOprazole 40 MG TAB PO SCH (08:36)
[2022-04-05] MEDS: lisinopril 5 MG TAB PO SCH (08:36)
--- NOTE | 2022-04-05 10:21 | Hospitalist Progress Note ---
Date of Service April 05, 2022 Assessment & Plan (1) Acute on chronic diastolic CHF (congestive heart failure), NYHA class 3: (2) MACARIO (dyspnea on exertion): Plan: - Admitted to med surg with tele - Troponin negative - EKG reviewed as above - Last 2 D echo 03/12/22 showing EF of 55-60%, severely dilated left atrium, severe mitral annular calcification, moderate mitral regurg, mild tricuspid regurg, moderate to severe pulmonary hypertension - Continue IV diuresis with lasix 60 mg BID - PT/OT consulted - Baseline weight per the patient is 185 lbs, currently 188 lbs - Strict i/os, daily weights, fluid restriction with HH/DM diet of 1500mL - Cardiology consulted -switched to p.o. Lasix, 60 mg p.o. twice daily. Also started on Imdur 30 mg every morning 04/04 -patient back on oxygen, however feels comfortable. We will add small dose IV Lasix in addition to her p.o. 04/05 -appears euvolemic, saturating well on 2 L (97%), will try to wean off oxygen (3) Supratherapeutic INR: (4) Atrial fibrillation: Plan: -EKG reviewed as above, rate controlled on amiodarone, -holding Coumadin with supratherapeutic INR of 5.7, INR on admission - current INR 3.5 -will need close follow-up with anticoagulation clinic (5) Cardiac pacemaker in situ: Plan: - History of such for SSS, placed in June 2017 -Follows with [facility] as an outpatient (6) Hypertension: Plan: -Continue metoprolol succinate 100 mg twice daily, lisinopril 5 mg daily (7) Diabetes: Plan: -ISS with Accu-Cheks ACHS, last A1c was 6.7 on 03/13 -Holding [employer] Januvia DVT PPx: - teds, scds, no chemical prophylaxis secondary to elevated INR CODE: DNR/DNI Dispo: From home, likely to remain in the hospital x 1-2 days Admission and Anticipated Discharge Date Admission Date: April 02, 2022 Subjective Patient seen in follow-up of CHF exacerbation She is sitting up in the chair, in no acute distress, reading a book She tells me that she feels comfortable, denies any chest pain, palpitations, dizziness Says reports that occasionally she feels short of breath, and it helps her when she has oxygen on Review of Systems Review of Systems: All systems reviewed & are unremarkable except as noted in Subjective Physical Exam Physical Exam: General: Elderly obese F in NAD, on 2L sat 97% Head: Normocephalic, atraumatic ENT: PERRL, EOMI on right eye, + eye patch over the left side so not examined Chest: Clear to auscultation, + faint crackles at bases, no wheezes or rales Cardiac: Iregularly irregular rate controlled in the 60s, + pacemaker, + faint systolic ejection murmur Abdominal: NABS x 4 quadrants, + obese, soft, nondistended, nontender to palpation, no rebound or guarding Extremities:+ chronic varicose veins throughout lower extremities, + 2 edema in BLE, nonpitting, no peripheral erythema Psych: Normal mood and affect Neuro: AAO x 3, strength intact bilaterally and rated 4/5, no motor deficits, speech is clear, no peripheral sensory deficits Results & Data Results & Data ([facility]) Vital Signs (Past 12 Hours) Vital Signs Temp Pulse Pulse Resp BP Pulse Ox 04/05/22 07:49 36.8 C 58 L 18 124/71 98 04/05/22 07:41 63 04/05/22 02:12 36.8 C 71 18 107/66 97 04/04/22 22:47 36.6 C 64 16 110/69 96 Laboratory Results 04/05/22 04/05/22 04/05/22 Range/Units 07:22 06:24 06:24 WBC (4.8-10.8) K/uL RBC (4.2-5.4) M/uL Hgb (12.0-16.0) g/dL Hct (37-47) % MCV (80-100) fL MCH (25-34) pg MCHC (32-36) g/dL RDW Std Deviation (36.4-46.3) fL RDW Coeff of Popeye (11.5-14.5) % Plt Count (130-400) K/uL MPV (7.4-10.4) fL PT 34.6 H (9.0-12.0) Seconds INR 3.5 H (0.9-1.1) Sodium 136 (136-145) mmol/L Potassium 4.3 (3.5-5.1) mmol/L Chloride 95 L (98-107) mmol/L Carbon Dioxide 34 H (21-32) mmol/L Anion Gap 7 (3-11) BUN 37 H (6-23) mg/dl Creatinine 1.63 H (0.6-1.2) mg/dl Est Cr Clr Drug Dosing 22.9 ml/min Est GFR ( Amer) 32.5 ml/min Est GFR (Non-Af Amer) 28.0 ml/min BUN/Creatinine Ratio 22.7 H (10-20) Glucose 123 H (70-99(Fasting)) mg/dl POC Glucose 136 H (70-99) mg/dl Calcium 8.8 (8.5-10.1) mg/dl Phosphorus 3.4 (2.5-4.9) mg/dl Magnesium 2.0 (1.7-2.4) mg/dl 04/05/22 04/04/22 04/04/22 Range/Units 06:24 20:14 16:59 WBC 6.57 (4.8-10.8) K/uL RBC 3.28 L (4.2-5.4) M/uL Hgb 9.8 L (12.0-16.0) g/dL Hct 30.1 L (37-47) % MCV 91.8 (80-100) fL MCH 29.9 (25-34) pg MCHC 32.6 (32-36) g/dL RDW Std Deviation 47.1 H (36.4-46.3) fL RDW Coeff of Popeye 13.9 (11.5-14.5) % Plt Count 350 (130-400) K/uL MPV 9.3 (7.4-10.4) fL PT (9.0-12.0) Seconds INR (0.9-1.1) Sodium (136-145) mmol/L Potassium (3.5-5.1) mmol/L Chloride (98-107) mmol/L Carbon Dioxide (21-32) mmol/L Anion Gap (3-11) BUN (6-23) mg/dl Creatinine (0.6-1.2) mg/dl Est Cr Clr Drug Dosing ml/min Est GFR ( Amer) ml/min Est GFR (Non-Af Amer) ml/min BUN/Creatinine Ratio (10-20) Glucose (70-99(Fasting)) mg/dl POC Glucose 163 H 130 H (70-99) mg/dl Calcium (8.5-10.1) mg/dl Phosphorus (2.5-4.9) mg/dl Magnesium (1.7-2.4) mg/dl 04/04/22 Range/Units 11:35 WBC (4.8-10.8) K/uL RBC (4.2-5.4) M/uL Hgb (12.0-16.0) g/dL Hct (37-47) % MCV (80-100) fL MCH (25-34) pg MCHC (32-36) g/dL RDW Std Deviation (36.4-46.3) fL RDW Coeff of Popeye (11.5-14.5) % Plt Count (130-400) K/uL MPV (7.4-10.4) fL PT (9.0-12.0) Seconds INR (0.9-1.1) Sodium (136-145) mmol/L Potassium (3.5-5.1) mmol/L Chloride (98-107) mmol/L Carbon Dioxide (21-32) mmol/L Anion Gap (3-11) BUN (6-23) mg/dl Creatinine (0.6-1.2) mg/dl Est Cr Clr Drug Dosing ml/min Est GFR ( Amer) ml/min Est GFR (Non-Af Amer) ml/min BUN/Creatinine Ratio (10-20) Glucose (70-99(Fasting)) mg/dl POC Glucose 134 H (70-99) mg/dl Calcium (8.5-10.1) mg/dl Phosphorus (2.5-4.9) mg/dl Magnesium (1.7-2.4) mg/dl Medications Administered Current Inpatient Medications Acetaminophen (Acetaminophen 325 Mg Tab) 650 mg PO Q4H PRN PRN Reason: Moderate Pain Stop: 05/02/22 17:42 Albuterol (Albuterol 0.083% Nebu Soln 3 Ml Vial) 2.5 mg NEB Q6R PRN; Protocol PRN Reason: Shortness Of Breath Or Wheezing Stop: 05/02/22 17:42 Dextrose (Dextrose 50% 50 Ml Syringe) 25 - 50 ml IV UD PRN; Protocol PRN Reason: Hypoglycemia Protocol Stop: 05/02/22 17:42 Diltiazem HCl (Diltiazem Hcl 120 Mg Er Cap) 240 mg PO QAM [facility] Stop: 05/03/22 08:59 Last Admin: 04/05/22 08:35 Dose: Not Given Documented by: Furosemide (Furosemide 20 Mg Tab) 60 mg PO BID17 [facility] Stop: 05/03/22 16:59 Last Admin: 04/05/22 08:36 Dose: 60 mg Documented by: Glucagon (Glucagon For Inj 1 Mg Vial) 1 mg SQ UD PRN; Protocol PRN Reason: Hypoglycemia Protocol Stop: 05/02/22 17:42 Glucose (Glucose 10 Tabs/Tube) 4 - 8 tabs PO UD PRN; Protocol PRN Reason: Hypoglycemia Protocol Stop: 05/02/22 17:42 Glucose (Glucose 40% Gel 15 Gm Tube) 15 - 30 gm PO UD PRN; Protocol PRN Reason: Hypoglycemia Protocol Stop: 05/02/22 17:42 Insulin Aspart (Insulin Aspart Per Unit) 0 units SC ACHS [facility] Stop: 05/02/22 17:42 Last Admin: 04/05/22 08:29 Dose: 6 units Documented by: Isosorbide Mononitrate (Isosorbide [place] Extended Rel 30 Mg Tabcr) 30 mg PO QAM [facility] Stop: 05/03/22 11:59 Last Admin: 04/05/22 08:35 Dose: 30 mg Documented by: Levothyroxine Sodium (Levothyroxine Sodium 75 Mcg Tablet) 75 mcg PO DAILYBB [facility] Stop: 05/03/22 06:29 Last Admin: 04/05/22 06:16 Dose: 75 mcg Documented by: Lisinopril (Lisinopril 5 Mg Tab) 5 mg PO QAM [facility] Stop: 05/03/22 08:59 Last Admin: 04/05/22 08:36 Dose: 5 mg Documented by: Magnesium Oxide (Magnesium Oxide 400 Mg Tab) 400 mg PO BID [facility] Stop: 05/02/22 20:59 Last Admin: 04/05/22 08:36 Dose: 400 mg Documented by: Metoprolol Succinate (Metoprolol Succ 50mg Ext Rel Tab) 100 mg PO BID [facility] Stop: 05/02/22 20:59 Last Admin: 04/05/22 08:35 Dose: Not Given Documented by: Miscellaneous (Carbohydrates For Hypoglycemia ) 15 - 30 gm PO UD PRN PRN Reason: Hypoglycemia Protocol Stop: 05/02/22 17:42 Ondansetron HCl (Ondansetron Inj 2 Mg/Ml 2 Ml Vial) 4 mg IV Q4H PRN PRN Reason: Nausea And Vomiting Stop: 05/02/22 17:42 Pantoprazole Sodium (Pantoprazole 40 Mg Tab) 40 mg PO QAM [facility] Stop: 05/03/22 08:59 Last Admin: 04/05/22 08:36 Dose: 40 mg Documented by: Rosuvastatin Calcium (Rosuvastatin Calcium 20 Mg Tab) 20 mg PO PM [facility] Stop: 05/02/22 20:59 Last Admin: 04/04/22 22:18 Dose: 20 mg Documented by: (1) Atrial fibrillation Atrial fibrillation type: persistent (not longstanding) Qualified Code(s): I48.19 - Other persistent atrial fibrillation
--- NOTE | 2022-04-05 10:34 | Cardiology Progress Note ---
Date of Service April 05, 2022 Assessment & Plan (1) Acute on chronic diastolic CHF (congestive heart failure), NYHA class 3: (2) Atrial fibrillation: (3) Hypertension: Plan: The patient examines euvolemic. She seems to be deconditioned. I would recommend that physical therapy work with her a bit. Would not adjust medications further. Admission and Anticipated Discharge Date Admission Date: April 02, 2022 Subjective The patient is sitting in a chair. Still little short of breath. No chest pain Review of Systems Review of Systems: Review of Systems: See HPI for pertinent positives. All other 10 point review of systems are negative. Physical Exam Physical Exam: General: no acute distress and stated age Head: normocephalic, no masses, lesions, tenderness or abnormalities Eyes: conjunctiva are pink and non-injected, sclera clear Neck: supple, no adenopathy, no bruits, normal jugular venous pulse, no hepatojugular reflux Chest: normal shape and normal respiratory effort Lungs: clear to auscultation and percussion Cardiac Exam: - regular rate & rhythm, no murmurs gallops or rubs - normal S1, normal S2 Pulses: 2(+) throughout Abdomen: abdomen soft, non-tender, no abnormal masses and no hepatosplenomegaly Musculoskeletal: no gait disturbance, no joint inflammation, no deforming arthritis Extremities: no edema and no cyanosis Neuro: grossly normal exam Results & Data ([facility]) Vital Signs (Past 12 Hours) Vital Signs Temp Pulse Pulse Resp BP Pulse Ox 04/05/22 07:49 36.8 C 58 L 18 124/71 98 04/05/22 07:41 63 04/05/22 02:12 36.8 C 71 18 107/66 97 04/04/22 22:47 36.6 C 64 16 110/69 96 Laboratory Results Laboratory Results - last 24 hr 04/04/22 04/04/22 04/04/22 11:35 16:59 20:14 WBC RBC Hgb Hct MCV MCH MCHC RDW Std Deviation RDW Coeff of Popeye Plt Count MPV PT INR Sodium Potassium Chloride Carbon Dioxide Anion Gap BUN Creatinine Est Cr Clr Drug Dosing Est GFR ( Amer) Est GFR (Non-Af Amer) BUN/Creatinine Ratio Glucose POC Glucose 134 H 130 H 163 H Calcium Phosphorus Magnesium 04/05/22 04/05/22 04/05/22 06:24 06:24 06:24 WBC 6.57 RBC 3.28 L Hgb 9.8 L Hct 30.1 L MCV 91.8 MCH 29.9 MCHC 32.6 RDW Std Deviation 47.1 H RDW Coeff of Popeye 13.9 Plt Count 350 MPV 9.3 PT 34.6 H INR 3.5 H Sodium 136 Potassium 4.3 Chloride 95 L Carbon Dioxide 34 H Anion Gap 7 BUN 37 H Creatinine 1.63 H Est Cr Clr Drug Dosing 22.9 Est GFR ( Amer) 32.5 Est GFR (Non-Af Amer) 28.0 BUN/Creatinine Ratio 22.7 H Glucose 123 H POC Glucose Calcium 8.8 Phosphorus 3.4 Magnesium 2.0 04/05/22 07:22 WBC RBC Hgb Hct MCV MCH MCHC RDW Std Deviation RDW Coeff of Popeye Plt Count MPV PT INR Sodium Potassium Chloride Carbon Dioxide Anion Gap BUN Creatinine Est Cr Clr Drug Dosing Est GFR ( Amer) Est GFR (Non-Af Amer) BUN/Creatinine Ratio Glucose POC Glucose 136 H Calcium Phosphorus Magnesium Medications Administered Current Inpatient Medications Acetaminophen (Acetaminophen 325 Mg Tab) 650 mg PO Q4H PRN PRN Reason: Moderate Pain Stop: 05/02/22 17:42 Albuterol (Albuterol 0.083% Nebu Soln 3 Ml Vial) 2.5 mg NEB Q6R PRN; Protocol PRN Reason: Shortness Of Breath Or Wheezing Stop: 05/02/22 17:42 Dextrose (Dextrose 50% 50 Ml Syringe) 25 - 50 ml IV UD PRN; Protocol PRN Reason: Hypoglycemia Protocol Stop: 05/02/22 17:42 Diltiazem HCl (Diltiazem Hcl 120 Mg Er Cap) 240 mg PO QAM [facility] Stop: 05/03/22 08:59 Last Admin: 04/05/22 08:35 Dose: Not Given Documented by: Furosemide (Furosemide 20 Mg Tab) 60 mg PO BID17 [facility] Stop: 05/03/22 16:59 Last Admin: 04/05/22 08:36 Dose: 60 mg Documented by: Glucagon (Glucagon For Inj 1 Mg Vial) 1 mg SQ UD PRN; Protocol PRN Reason: Hypoglycemia Protocol Stop: 05/02/22 17:42 Glucose (Glucose 10 Tabs/Tube) 4 - 8 tabs PO UD PRN; Protocol PRN Reason: Hypoglycemia Protocol Stop: 05/02/22 17:42 Glucose (Glucose 40% Gel 15 Gm Tube) 15 - 30 gm PO UD PRN; Protocol PRN Reason: Hypoglycemia Protocol Stop: 05/02/22 17:42 Insulin Aspart (Insulin Aspart Per Unit) 0 units SC ACHS [facility] Stop: 05/02/22 17:42 Last Admin: 04/05/22 08:29 Dose: 6 units Documented by: Isosorbide Mononitrate (Isosorbide [place] Extended Rel 30 Mg Tabcr) [facility] [place] Stop: 05/03/22 11:59 Last Admin: 04/05/22 08:35 Dose: 30 mg Documented by: Levothyroxine Sodium (Levothyroxine Sodium 75 Mcg Tablet) 75 mcg PO DAILYBB [facility] Stop: 05/03/22 06:29 Last Admin: 04/05/22 06:16 Dose: 75 mcg Documented by: Lisinopril (Lisinopril 5 Mg Tab) 5 mg PO QAM [facility] Stop: 05/03/22 08:59 Last Admin: 04/05/22 08:36 Dose: 5 mg Documented by: Magnesium Oxide (Magnesium Oxide 400 Mg Tab) 400 mg PO BID [facility] Stop: 05/02/22 20:59 Last Admin: 04/05/22 08:36 Dose: 400 mg Documented by: Metoprolol Succinate (Metoprolol Succ 50mg Ext Rel Tab) 100 mg PO BID [facility] Stop: 05/02/22 20:59 Last Admin: 04/05/22 08:35 Dose: Not Given Documented by: Miscellaneous (Carbohydrates For Hypoglycemia ) 15 - 30 gm PO UD PRN PRN Reason: Hypoglycemia Protocol Stop: 05/02/22 17:42 Ondansetron HCl (Ondansetron Inj 2 Mg/Ml 2 Ml Vial) 4 mg IV Q4H PRN PRN Reason: Nausea And Vomiting Stop: 05/02/22 17:42 Pantoprazole Sodium (Pantoprazole 40 Mg Tab) 40 mg PO QAM [facility] Stop: 05/03/22 08:59 Last Admin: 04/05/22 08:36 Dose: 40 mg Documented by: Rosuvastatin Calcium (Rosuvastatin Calcium 20 Mg Tab) 20 mg PO PM [facility] Stop: 05/02/22 20:59 Last Admin: 04/04/22 22:18 Dose: 20 mg Documented by: (1) Atrial fibrillation Atrial fibrillation type: persistent (not longstanding) Qualified Code(s): I48.19 - Other persistent atrial fibrillation
[2022-04-05] MEDS: ROSUVASTATIN CALCIUM 20 MG TAB PO SCH (19:26)
[2022-04-06 06:16] LABS: Hematocrit (blood only) 31.9 % (37-47); Mean Corpuscular Hgb Conc 31.3 g/dL (32-36); Mean Corpuscular Volume 92.5 fL (80-100); Mean Platelet Volume 9.3 fL (7.4-10.4); Platelet Count 377 K/uL (130-400); RDW Standard Deviation 47.2 fL (36.4-46.3); Red Blood Count 3.45 M/uL (4.2-5.4); White Blood Count 6.48 K/uL (4.8-10.8)
[2022-04-06] MEDS: LEVOTHYROXINE SODIUM 75 MCG TABLET PO SCH (06:30)
[2022-04-06 06:53] LABS: BUN Creatinine Ratio 21.3 (10-20); Calcium 8.9 mg/dl (8.5-10.1); Creatinine Clr Calc Pharmacy 23.4 ml/min; Est GFR (African American) 33.2 ml/min; Est GFR (Non-African American) 28.7 ml/min; Potassium 4.1 mmol/L (3.5-5.1)
[2022-04-06] MEDS: FUROSEMIDE 20 MG TAB PO SCH ×2 (08:58→18:04)
[2022-04-06] MEDS: METOPROLOL SUCC 50MG EXT REL TAB PO SCH ×2 (08:58→19:55)
[2022-04-06] MEDS: MAGNESIUM OXIDE 400 MG TAB PO SCH ×2 (08:58→19:54)
[2022-04-06] MEDS: ISOSORBIDE MONO EXTENDED REL 30 MG TABCR PO SCH (08:59)
[2022-04-06] MEDS: PANTOprazole 40 MG TAB PO SCH (08:59)
[2022-04-06] MEDS: lisinopril 5 MG TAB PO SCH (08:59)
[2022-04-06] MEDS: INSULIN ASPART PER UNIT SC SCH ×4 (08:59→20:02)
--- NOTE | 2022-04-06 14:15 | Hospitalist Progress Note ---
Date of Service April 06, 2022 Assessment & Plan (1) Acute on chronic diastolic CHF (congestive heart failure), NYHA class 3: (2) MACARIO (dyspnea on exertion): Plan: - Admitted to med surg with tele - Troponin negative - EKG reviewed as above - Last 2 D echo 03/12/22 showing EF of 55-60%, severely dilated left atrium, severe mitral annular calcification, moderate mitral regurg, mild tricuspid regurg, moderate to severe pulmonary hypertension - Continued IV diuresis with lasix 60 mg BID - PT/OT consulted - Baseline weight per the patient is 185 lbs, currently on admission 188 lbs - Strict i/os, daily weights, fluid restriction with HH/DM diet of 1500mL - Cardiology consulted -switched to p.o. Lasix, 60 mg p.o. twice daily. Also started on Imdur 30 mg every morning 04/04 -patient back on oxygen, however feels comfortable. We will add small dose IV Lasix in addition to her p.o. 04/05 -appears euvolemic, saturating well on 2 L (97%), will try to wean off oxygen 04/06 patient appears euvolemic, comfortable, on room air (3) Supratherapeutic INR: (4) Atrial fibrillation: Plan: -EKG reviewed as above, rate controlled on amiodarone, -holding Coumadin with supratherapeutic INR of 5.7 on admission - current INR 3.5 -will need close follow-up with anticoagulation clinic (5) Cardiac pacemaker in situ: Plan: - History of such for SSS, placed in June 2017 -Follows with [facility] as an outpatient (6) Hypertension: Plan: -Continue metoprolol succinate 100 mg twice daily, lisinopril 5 mg daily (7) Diabetes: Plan: -ISS with [facility], last A1c was 6.7 on 03/13 -Holding [employer] Januvia DVT PPx: on coumadin, elevated INR CODE: DNR/DNI Dispo: From home, plan to DC to [facility] tomorrow Admission and Anticipated Discharge Date Admission Date: April 02, 2022 Subjective Patient seen in follow-up of CHF exacerbation She is sitting up in the chair, in no acute distress She tells me that she feels comfortable, denies any chest pain, palpitations, shortness of breath or dizziness Review of Systems Review of Systems: All systems reviewed & are unremarkable except as noted in Subjective Physical Exam Physical Exam: General: Elderly obese F in NAD, on RA Head: Normocephalic, atraumatic ENT: PERRL, EOMI on right eye, + eye patch over the left side Chest: Clear to auscultation, + faint crackles at bases, no wheezes or rales Cardiac: Irregularly irregular rate controlled in the 60s, + pacemaker, + faint systolic ejection murmur Abdominal: NABS x 4 quadrants, + obese, soft, nondistended, nontender to palpation, no rebound or guarding Extremities:+ chronic varicose veins throughout lower extremities, + 2 edema in BLE, nonpitting, no peripheral erythema Psych: Normal mood and affect Neuro: AAO x 3, strength intact bilaterally and rated 4/5, no motor deficits, speech is clear, no peripheral sensory deficits Results & Data Results & Data ([facility]) Vital Signs (Past 12 Hours) Vital Signs Temp Pulse Pulse Resp BP BP Pulse Ox 04/06/22 11:44 36.8 C 82 18 120/73 91 04/06/22 07:46 36.8 C 74 18 126/61 98 04/06/22 07:00 68 04/06/22 02:46 36.7 C 61 18 132/84 98 04/06/22 02:45 71 Laboratory Results 04/06/22 04/06/22 04/06/22 Range/Units 11:32 07:22 05:31 WBC (4.8-10.8) K/uL RBC (4.2-5.4) M/uL Hgb (12.0-16.0) g/dL Hct (37-47) % MCV (80-100) fL MCH (25-34) pg MCHC (32-36) g/dL RDW Std Deviation (36.4-46.3) fL RDW Coeff of Popeye (11.5-14.5) % Plt Count (130-400) K/uL MPV (7.4-10.4) fL Sodium 136 (136-145) mmol/L Potassium 4.1 (3.5-5.1) mmol/L Chloride 95 L (98-107) mmol/L Carbon Dioxide 34 H (21-32) mmol/L Anion Gap 7 (3-11) BUN 34 H (6-23) mg/dl Creatinine 1.60 H (0.6-1.2) mg/dl Est Cr Clr Drug Dosing 23.4 ml/min Est GFR ( Amer) 33.2 ml/min Est GFR (Non-Af Amer) 28.7 ml/min BUN/Creatinine Ratio 21.3 H (10-20) Glucose 95 (70-99(Fasting)) mg/dl POC Glucose 106 H 103 H (70-99) mg/dl Calcium 8.9 (8.5-10.1) mg/dl Phosphorus 4.0 (2.5-4.9) mg/dl Magnesium 2.0 (1.7-2.4) mg/dl 04/06/22 04/05/22 04/05/22 Range/Units 05:31 19:55 16:26 WBC 6.48 (4.8-10.8) K/uL RBC 3.45 L (4.2-5.4) M/uL Hgb 10.0 L (12.0-16.0) g/dL Hct 31.9 L (37-47) % MCV 92.5 (80-100) fL MCH 29.0 (25-34) pg MCHC 31.3 L (32-36) g/dL RDW Std Deviation 47.2 H (36.4-46.3) fL RDW Coeff of Popeye 14.0 (11.5-14.5) % Plt Count 377 (130-400) K/uL MPV 9.3 (7.4-10.4) fL Sodium (136-145) mmol/L Potassium (3.5-5.1) mmol/L Chloride (98-107) mmol/L Carbon Dioxide (21-32) mmol/L Anion Gap (3-11) BUN (6-23) mg/dl Creatinine (0.6-1.2) mg/dl Est Cr Clr Drug Dosing ml/min Est GFR ( Amer) ml/min Est GFR (Non-Af Amer) ml/min BUN/Creatinine Ratio (10-20) Glucose (70-99(Fasting)) mg/dl POC Glucose 78 120 H (70-99) mg/dl Calcium (8.5-10.1) mg/dl Phosphorus (2.5-4.9) mg/dl Magnesium (1.7-2.4) mg/dl Medications Administered Current Inpatient Medications Acetaminophen (Acetaminophen 325 Mg Tab) 650 mg PO Q4H PRN PRN Reason: Moderate Pain Stop: 05/02/22 17:42 Albuterol (Albuterol 0.083% Nebu Soln 3 Ml Vial) 2.5 mg NEB Q6R PRN; Protocol PRN Reason: Shortness Of Breath Or Wheezing Stop: 05/02/22 17:42 Dextrose (Dextrose 50% 50 Ml Syringe) 25 - 50 ml IV UD PRN; Protocol PRN Reason: Hypoglycemia Protocol Stop: 05/02/22 17:42 Diltiazem HCl (Diltiazem Hcl 120 Mg Er Cap) [facility] [place] Stop: 05/03/22 08:59 Last Admin: 04/06/22 08:59 Dose: 240 mg Documented by: Furosemide (Furosemide 20 Mg Tab) 60 mg PO BID17 [facility] Stop: 05/03/22 16:59 Last Admin: 04/06/22 08:58 Dose: 60 mg Documented by: Glucagon (Glucagon For Inj 1 Mg Vial) 1 mg SQ UD PRN; Protocol PRN Reason: Hypoglycemia Protocol Stop: 05/02/22 17:42 Glucose (Glucose 10 Tabs/Tube) 4 - 8 tabs PO UD PRN; Protocol PRN Reason: Hypoglycemia Protocol Stop: 05/02/22 17:42 Glucose (Glucose 40% Gel 15 Gm Tube) 15 - 30 gm PO UD PRN; Protocol PRN Reason: Hypoglycemia Protocol Stop: 05/02/22 17:42 Insulin Aspart (Insulin Aspart Per Unit) 0 units SC ACHS [facility] Stop: 05/02/22 17:42 Last Admin: 04/06/22 12:07 Dose: Not Given Documented by: Isosorbide Mononitrate (Isosorbide [place] Extended Rel 30 Mg Tabcr) [facility] [place] Stop: 05/03/22 11:59 Last Admin: 04/06/22 08:59 Dose: 30 mg Documented by: Levothyroxine Sodium (Levothyroxine Sodium 75 Mcg Tablet) 75 mcg PO DAILYBB [facility] Stop: 05/03/22 06:29 Last Admin: 04/06/22 06:30 Dose: 75 mcg Documented by: Lisinopril (Lisinopril 5 Mg Tab) [facility] [place] Stop: 05/03/22 08:59 Last Admin: 04/06/22 08:59 Dose: 5 mg Documented by: Magnesium Oxide (Magnesium Oxide 400 Mg Tab) 400 mg PO BID [facility] Stop: 05/02/22 20:59 Last Admin: 04/06/22 08:58 Dose: 400 mg Documented by: Metoprolol Succinate (Metoprolol Succ 50mg Ext Rel Tab) 100 mg PO BID [facility] Stop: 05/02/22 20:59 Last Admin: 04/06/22 08:58 Dose: 100 mg Documented by: Miscellaneous (Carbohydrates For Hypoglycemia ) 15 - 30 gm PO UD PRN PRN Reason: Hypoglycemia Protocol Stop: 05/02/22 17:42 Ondansetron HCl (Ondansetron Inj 2 Mg/Ml 2 Ml Vial) 4 mg IV Q4H PRN PRN Reason: Nausea And Vomiting Stop: 05/02/22 17:42 Pantoprazole Sodium (Pantoprazole 40 Mg Tab) 40 mg PO QAM [facility] Stop: 05/03/22 08:59 Last Admin: 04/06/22 08:59 Dose: 40 mg Documented by: Rosuvastatin Calcium (Rosuvastatin Calcium 20 Mg Tab) 20 mg PO PM [facility] Stop: 05/02/22 20:59 Last Admin: 04/05/22 19:26 Dose: 20 mg Documented by: (1) Atrial fibrillation Atrial fibrillation type: persistent (not longstanding) Qualified Code(s): I48.19 - Other persistent atrial fibrillation
[2022-04-06] MEDS: ROSUVASTATIN CALCIUM 20 MG TAB PO SCH (19:55)
[2022-04-06 20:39] LABS: INR 2.2 (0.9-1.1); Prothrombin Time 22.1 Seconds (9.0-12.0)
[2022-04-07] MEDS: LEVOTHYROXINE SODIUM 75 MCG TABLET PO SCH (06:02)
[2022-04-07 06:11] LABS: Prothrombin Time 20.7 Seconds (9.0-12.0)
[2022-04-07] MEDS: PANTOprazole 40 MG TAB PO SCH (09:11)
[2022-04-07] MEDS: FUROSEMIDE 20 MG TAB PO SCH (09:11)
[2022-04-07] MEDS: lisinopril 5 MG TAB PO SCH (09:11)
[2022-04-07] MEDS: ISOSORBIDE MONO EXTENDED REL 30 MG TABCR PO SCH (09:12)
[2022-04-07] MEDS: MAGNESIUM OXIDE 400 MG TAB PO SCH (09:12)
[2022-04-07] MEDS: METOPROLOL SUCC 50MG EXT REL TAB PO SCH (09:12)
[2022-04-07] MEDS: INSULIN ASPART PER UNIT SC SCH ×2 (09:12→12:21)
--- NOTE | 2022-04-07 09:13 | Hospitalist Progress Note ---
Date of Service April 07, 2022 Assessment & Plan (1) Acute on chronic diastolic CHF (congestive heart failure), NYHA class 3: (2) MACARIO (dyspnea on exertion): Plan: - Admitted to med surg with tele - Troponin negative - EKG reviewed as above - Last 2 D echo 03/12/22 showing EF of 55-60%, severely dilated left atrium, severe mitral annular calcification, moderate mitral regurg, mild tricuspid regurg, moderate to severe pulmonary hypertension - Continued IV diuresis with lasix 60 mg BID - PT/OT consulted - Baseline weight per the patient is 185 lbs, currently on admission 188 lbs - Strict i/os, daily weights, fluid restriction with HH/DM diet of 1500mL - Cardiology consulted -switched to p.o. Lasix, 60 mg p.o. twice daily. Also started on Imdur 30 mg every morning 04/04 -patient back on oxygen, however feels comfortable. We will add small dose IV Lasix in addition to her p.o. 04/05 -appears euvolemic, saturating well on 2 L (97%), will try to wean off oxygen patient appears euvolemic, comfortable, on room air DAIN on CPAP -Has home CPAP machine -Questionable compliance with CPAP -Provided counseling (3) Supratherapeutic INR: (4) Atrial fibrillation: Plan: -EKG reviewed as above, rate controlled on amiodarone, -holding Coumadin with supratherapeutic INR of 5.7 on admission - current INR 2.2 -will need close follow-up with anticoagulation clinic (5) Cardiac pacemaker in situ: Plan: - History of such for SSS, placed in June 2017 -Follows with [facility] as an outpatient (6) Hypertension: Plan: -Continue metoprolol succinate 100 mg twice daily, lisinopril 5 mg daily (7) Diabetes: Plan: -ISS with [facility], last A1c was 6.7 on 03/13 -Holding [employer] Januvia DVT PPx: on coumadin, elevated INR CODE: DNR/DNI Dispo: plan to DC to [facility] today Admission and Anticipated Discharge Date Admission Date: April 02, 2022 Subjective Patient seen in follow-up of CHF exacerbation She is sitting up in the chair, in no acute distress She tells me that she feels comfortable, denies any chest pain, palpitations, shortness of breath or dizziness Review of Systems Review of Systems: All systems reviewed & are unremarkable except as noted in Subjective Physical Exam Physical Exam: General: Elderly obese F in NAD, on RA Head: Normocephalic, atraumatic ENT: PERRL, EOMI on right eye, + eye patch over the left side Chest: Clear to auscultation, + faint crackles at bases, no wheezes or rales Cardiac: Irregularly irregular rate controlled in the 60s, + pacemaker, + faint systolic ejection murmur Abdominal: NABS x 4 quadrants, + obese, soft, nondistended, nontender to palpation, no rebound or guarding Extremities:+ chronic varicose veins throughout lower extremities, + 2 edema in BLE, nonpitting, no peripheral erythema Psych: Normal mood and affect Neuro: AAO x 3, strength intact bilaterally and rated 4/5, no motor deficits, speech is clear, no peripheral sensory deficits Results & Data Results & Data ([facility]) Vital Signs (Past 12 Hours) Vital Signs Temp Pulse Pulse Resp BP Pulse Ox 04/07/22 08:08 36.6 C 60 20 115/61 96 04/07/22 04:00 36.5 C 60 20 104/60 99 04/07/22 03:13 64 04/06/22 22:00 36.4 C L 86 20 125/73 97 Laboratory Results 04/07/22 04/07/22 04/06/22 Range/Units 07:39 05:44 20:17 PT 20.7 H 22.1 H (9.0-12.0) Seconds INR 2.0 H 2.2 H (0.9-1.1) POC Glucose 113 H (70-99) mg/dl 04/06/22 04/06/22 04/06/22 Range/Units 19:58 16:39 11:32 PT (9.0-12.0) Seconds INR (0.9-1.1) POC Glucose 131 H 111 H 106 H (70-99) mg/dl Medications Administered Current Inpatient Medications Acetaminophen (Acetaminophen 325 Mg Tab) 650 mg PO Q4H PRN PRN Reason: Moderate Pain Stop: 05/02/22 17:42 Last Admin: 04/06/22 18:09 Dose: 650 mg Documented by: Albuterol (Albuterol 0.083% Nebu Soln 3 Ml Vial) 2.5 mg NEB Q6R PRN; Protocol PRN Reason: Shortness Of Breath Or Wheezing Stop: 05/02/22 17:42 Dextrose (Dextrose 50% 50 Ml Syringe) 25 - 50 ml IV UD PRN; Protocol PRN Reason: Hypoglycemia Protocol Stop: 05/02/22 17:42 Diltiazem HCl (Diltiazem Hcl 120 Mg Er Cap) 240 mg PO QAM [facility] Stop: 05/03/22 08:59 Last Admin: 04/06/22 08:59 Dose: 240 mg Documented by: Furosemide (Furosemide 20 Mg Tab) 60 mg PO BID17 [facility] Stop: 05/03/22 16:59 Last Admin: 04/06/22 18:04 Dose: 60 mg Documented by: Glucagon (Glucagon For Inj 1 Mg Vial) 1 mg SQ UD PRN; Protocol PRN Reason: Hypoglycemia Protocol Stop: 05/02/22 17:42 Glucose (Glucose 10 Tabs/Tube) 4 - 8 tabs PO UD PRN; Protocol PRN Reason: Hypoglycemia Protocol Stop: 05/02/22 17:42 Glucose (Glucose 40% Gel 15 Gm Tube) 15 - 30 gm PO UD PRN; Protocol PRN Reason: Hypoglycemia Protocol Stop: 05/02/22 17:42 Insulin Aspart (Insulin Aspart Per Unit) 0 units SC ACHS [facility] Stop: 05/02/22 17:42 Last Admin: 04/06/22 20:02 Dose: Not Given Documented by: Isosorbide Mononitrate (Isosorbide [place] Extended Rel 30 Mg Tabcr) 30 mg PO QAM [facility] Stop: 05/03/22 11:59 Last Admin: 04/06/22 08:59 Dose: 30 mg Documented by: Levothyroxine Sodium (Levothyroxine Sodium 75 Mcg Tablet) 75 mcg PO DAILYBB [facility] Stop: 05/03/22 06:29 Last Admin: 04/07/22 06:02 Dose: 75 mcg Documented by: Lisinopril (Lisinopril 5 Mg Tab) 5 mg PO QAM [facility] Stop: 05/03/22 08:59 Last Admin: 04/06/22 08:59 Dose: 5 mg Documented by: Magnesium Oxide (Magnesium Oxide 400 Mg Tab) 400 mg PO BID [facility] Stop: 05/02/22 20:59 Last Admin: 04/06/22 19:54 Dose: 400 mg Documented by: Metoprolol Succinate (Metoprolol Succ 50mg Ext Rel Tab) 100 mg PO BID [facility] Stop: 05/02/22 20:59 Last Admin: 04/06/22 19:55 Dose: 100 mg Documented by: Miscellaneous (Carbohydrates For Hypoglycemia ) 15 - 30 gm PO UD PRN PRN Reason: Hypoglycemia Protocol Stop: 05/02/22 17:42 Ondansetron HCl (Ondansetron Inj 2 Mg/Ml 2 Ml Vial) 4 mg IV Q4H PRN PRN Reason: Nausea And Vomiting Stop: 05/02/22 17:42 Pantoprazole Sodium (Pantoprazole 40 Mg Tab) 40 mg PO QAM [facility] Stop: 05/03/22 08:59 Last Admin: 04/06/22 08:59 Dose: 40 mg Documented by: Rosuvastatin Calcium (Rosuvastatin Calcium 20 Mg Tab) 20 mg PO PM [facility] Stop: 05/02/22 20:59 Last Admin: 04/06/22 19:55 Dose: 20 mg Documented by: (1) Atrial fibrillation Atrial fibrillation type: persistent (not longstanding) Qualified Code(s): I48.19 - Other persistent atrial fibrillation
--- NOTE | 2022-04-07 09:41 | Discharge Summary ---
Date of Service April 07, 2022 Admission HPI Per Admitting Provider This is an 87 yo F with PMHx of chronic diastolic heart failure (EF of 55-60%, TTE 2019 ), valvular heart disease (mild TR, moderate MR, mild AR from TTE 2019), HTN, DAIN on CPAP, pulmonary hypertension, SSS status post cardiac pacemaker, on Coumadin, PVD, hypertension, hyperlipidemia, hypothyroidism, DM2 on oral meds, CRI (baseline creatinine 1.3-1.4), chronic anemia (baseline hemoglobin of 11). She was recently hospitalized here from 03/11/22 through 03/13/22 for CHF exacerbation where she was treated with IV diuresis and seen by cardiology. Today the patient presents with worsening shortness of breath which has been ongoing for the past 2 days with ADLs and walking. It is specifically worse on exertional activities like putting away the dishes in her kitchen. This morning she became more short of breath and developed central chest pain. EMS was called. She recieved nitro x 1 in EMS and reports her chest pain subsided afer this. She denies any radiation of the pain, palpitations or heaviness. Pt uses a walker at baseline and has also been needing her prn O2 more in the past 2 days. Typically she only wears 2 L via NC HS, but has been requiring it more during the day. Pt states her dry weight is 185 lbs, and is up to 188 lbs today. Her ankles and more swollen and felt that her bra was tight yesterday. She has been taking all her medications as directed, including lasix 40 mg BID. Pt took her morning medications. Daughter who is present at bedside notes that she has been recently taken off iron, and had also asked for potassium refill about 1 month ago, but has not gotten this from PCP and therefore pt has not been taking it, but eats a banana daily. Admission Exam Per Admitting Provider General: awake, alert, no apparent distress + obese with BMI of 36.5 Head: Normocephalic, atraumatic ENT: PERRL, EOMI on right eye, + eye patch over the left side so not examined, no pharyngeal exudate, mucous membranes moist Chest: Clear to auscultation, + faint crackles at bases, on 2 L via NC with sats at 96%, no wheezes or rales Cardiac: Iregularly irregular rate controlled in the 60s at bedside,, + pacema ker, + faint systolic ejection murmur , no JVD, normal peripheral pulses, good capillary refill Abdominal: NABS x 4 quadrants, + obese, soft, nondistended, nontender to palpation, no rebound or guarding Extremities:+ chronic varicose veins throughout lower extremities, + 2 edema in BLE, nonpitting, no peripheral erythema, calfs nontender to palpation Psych: Normal mood and affect Neuro: AAO x 3, strength intact bilaterally and rated 4/5, no motor deficits, speech is clear, no peripheral sensory deficits Principal Diagnosis Acute on chronic diastolic CHF Supratherapeutic INR Atrial fibrillation Discharge Exam General: Elderly obese F in NAD, on RA Head: Normocephalic, atraumatic ENT: PERRL, EOMI on right eye, + eye patch over the left side Chest: Clear to auscultation, + faint crackles at bases, no wheezes or rales Cardiac: Irregularly irregular rate controlled in the 60s, + pacemaker, + faint systolic ejection murmur Abdominal: NABS x 4 quadrants, + obese, soft, nondistended, nontender to palpation, no rebound or guarding Extremities:+ chronic varicose veins throughout lower extremities, + 2 edema in BLE, nonpitting, no peripheral erythema Psych: Normal mood and affect Neuro: AAO x 3, strength intact bilaterally and rated 4/5, no motor deficits, speech is clear, no peripheral sensory deficits Discharge Data Allergies Allergy/AdvReac Type Severity Reaction Status Date / Time Penicillins Allergy Intermediate RASH Verified 03/11/22 18:03 Consultations 04/02/22 12:25 ED Decision to Admit Stat 04/02/22 17:43 Consult Cardiology Routine Hospital Course (1) Acute on chronic diastolic CHF (congestive heart failure), NYHA class 3: (2) MACARIO (dyspnea on exertion): - Admitted to med surg with tele - Troponin negative - EKG reviewed as above - Last 2 D echo 03/12/22 showing EF of 55-60%, severely dilated left atrium, severe mitral annular calcification, moderate mitral regurg, mild tricuspid regurg, moderate to severe pulmonary hypertension - Continued IV diuresis with lasix 60 mg BID - PT/OT consulted - Baseline weight per the patient is 185 lbs, currently on admission 188 lbs - Strict i/os, daily weights, fluid restriction with HH/DM diet of 1500mL - Cardiology consulted -switched to p.o. Lasix, 60 mg p.o. twice daily. Also s tarted on Imdur 30 mg every morning 04/04 -patient back on oxygen, however feels comfortable. We will add small dose IV Lasix in addition to her p.o. 04/05 -appears euvolemic, saturating well on 2 L (97%), will try to wean off oxygen patient appears euvolemic, comfortable, on room air DAIN on CPAP -Has home CPAP machine -Questionable compliance with CPAP -Provided counseling (3) Supratherapeutic INR: (4) Atrial fibrillation: -EKG reviewed as above, rate controlled on amiodarone, -holding Coumadin with supratherapeutic INR of 5.7 on admission - current INR 2.2 -will need close follow-up with anticoagulation clinic (5) Cardiac pacemaker in situ: - History of such for SSS, placed in June 2017 -Follows with [facility] as an outpatient (6) Hypertension: -Continue metoprolol succinate 100 mg twice daily, lisinopril 5 mg daily (7) Diabetes: -ISS with Accu-Cheks ACHS, last A1c was 6.7 on 03/13 -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 CODE: DNR/DNI Dispo: plan to DC to [facility] today Total Time Total Time Spent Total Time Spent (In Minutes): 40 Discharge Plan Discharge Items Patient Disposition: Transfer Inpatient Rehab Fac Reason For Visit: CHF EXACERBATION Discharge Diagnosis: Acute on chronic diastolic CHF Supratherapeutic INR Atrial fibrillation Activity: Per Instructions section Non-emergency contact: Primary Care Provider and Integration Lead Call non-emergency contact if: you have any medication questions and your symptoms worsen Follow-up/Referrals: Chad Phoenix DO [Primary Care Provider] - (Date & Time 04/09/2022 11:00 AM Provider Chad Phoenix DO Department [facility] ) Diet: Heart Healthy Addtl Attending Provider Instructions: Follow-up with your primary care doctor, the appointment was scheduled for you for April 09. Your Lasix dose was increased to 60 mg twice a day (instead of 40 mg twice a day). You were also started on a new medication, Imdur 30 mg a day. Your INR was elevated, make sure that you follow-up with your anticoagulation clinic closely, and that your INR is re-checked. Your warfarin/Coumadin dose may need to be adjusted. It is important that you use your CPAP machine when sleeping. Addtl [facility] [employer] Provider Instructions: Call your Primary Care doctor if any of the following symptoms or problems start or get worse: * Shortness of breath or difficulty breathing * Wake up at night short of breath * Chest pain * Cough * Swelling of your hands, feet, or legs * More fatigued or tired with your normal activity * Palpitations - sudden fast heart beats WEIGHT * Weigh yourself every morning after using the bathroom. * Use the same scale. * Wear the same amount of clothing. * Write your weight down on a chart. * Call your Primary Care doctor if you gain more than 2-3 pounds in 1-2 days. MEDICATIONS * Use this discharge instruction sheet for medication instructions. * Take your medications at the time your doctor ordered. * Do not skip a dose of your medicines. * If you miss a dose of medicine, take it as soon as possible, but DO NOT DOUBLE A DOSE. * Read your medicine information when you get home. * Know all of the side effects of your medicine. If in doubt, ask your pharmacist * Call your Primary Care doctor's office if you have any side effects. * Be sure all of your doctors know what medicine and herbs you take (including cold, flu, and herbal medicine). Take the following with you to your follow-up doctor appointments: * Weight Chart * Medication List * List of questions Do not drink excessive alcohol, beer or wine. Pending Studies at Discharge: No Stand-Alone Forms: My [facility] Skilled Items Patient informed of condition?: Yes DNR: Yes Discharge Level of Care: Acute rehab Communicable Disease: No Discharge Prognosis: Stable Lines: None Urinary Catheter: No Medications and DC Order Prescriptions: New isosorbide mononitrate 30 mg Tablet Extended Release 24 Hr 30 mg PO QAM Qty: 30 RF: 0 furosemide 20 mg Tablet 60 mg PO BID Qty: 60 RF: 0 Continued pantoprazole 40 mg Tablet,Delayed Release (Dr/Ec) 40 mg PO QAM Qty: 0 RF: 0 magnesium oxide 400 mg magnesium Tablet 400 mg PO BID Qty: 0 RF: 0 diltiazem HCl 240 mg Tablet Extended Release 24 Hr 240 mg PO QAM Qty: 0 RF: 0 metoprolol succinate 100 mg Tablet Extended Release 24 Hr 100 mg PO BID Qty: 0 RF: 0 Januvia 50 mg Tablet 50 mg PO QAM Qty: 0 RF: 0 levothyroxine 75 mcg Tablet 75 mcg PO QAM 90 Days Qty: 90 RF: 3 warfarin [Jantoven] 5 mg tablet 5 mg PO [id number] RF: 0 albuterol sulfate [Ventolin HFA] 90 mcg/actuation HFA aerosol inhaler 2 inh inhalation DIRECTED PRN (Reason: sob) RF: 0 rosuvastatin 20 mg tablet 20 mg PO PM RF: 0 warfarin [Jantoven] 5 mg tablet 2.5 mg PO WK RF: 0 lisinopril 5 mg tablet 5 mg PO QAM RF: 0 ergocalciferol (vitamin D2) [Vitamin D2] 1,250 mcg (50,000 unit) Capsule 1,250 mcg PO WK RF: 0 Changed furosemide 40 mg tablet 60 mg PO BID Qty: 0 RF: 0 Discharge Orders: Discharge Order (Routine); Ordered 04/07/22 Ordered By: Kwaku Soliz Admission Data Admit Date/Time: 04/02/22 12:53 Attending Provider: Christian Martin Admit Provider: Christian Martin Primary Care Provider: Chad Phoenix Other Providers: Christian Martin ; Pritesh Clement ; [facility]
== END 2022-04-07 15:33 | DRG 291 ==
LOC: ED 08:57 → 2N 12:53 → SUATTDRO 12:53 → 2N 16:30

== ENCOUNTER 2023-09-13 12:26 | Inpatient (IN) ==
[2023-09-13 13:36] LABS: Basophils # (auto) 0.04 K/uL (0.00-0.20); Basophils % (auto) 0.6 %; Eosinophils # (auto) 0.27 K/uL (0.00-0.50); Eosinophils % (auto) 3.9 %; Hemoglobin 10.9 g/dl (12.0-16.0); Immature Granulocytes # (auto) 0.02 K/uL (0.01-0.20); Immature Granulocytes % (auto) 0.3 %; Lymphocytes # (auto) 1.07 K/uL (1.20-3.40); Lymphocytes % (auto) 15.5 %; Mean Corpuscular Hemoglobin 29.2 pg (25.0-34.0); Mean Corpuscular Volume 88.5 fL (80.0-100.0); Monocytes # (auto) 0.92 K/uL (0.11-0.59); Monocytes % (auto) 13.3 %; Neutrophils % (auto) 66.4 %; Platelet Count 206 K/uL (130-400); RDW Coefficient of Variation 14.8 % (11.5-14.5); RDW Standard Deviation 47.7 fL (36.4-46.3); Red Blood Count 3.73 M/uL (4.20-5.40); White Blood Count 6.92 K/ul (4.8-10.8)
--- NOTE | 2023-09-13 13:43 | XRay Report ---
XR chest 1V not portable CLINICAL HISTORY: illness TECHNIQUE: Single frontal radiograph of the chest was obtained. Comparison: Comparison is made to chest radiograph 04/02/2022 FINDINGS: An implanted pacemaker is seen. Cardiomegaly is noted. The aortic arch is calcified. Interspace opaci ty in the right midlung likely represents right middle lobe atelectasis. Mild vascular prominence is seen. No evidence of pleural effusion or pneumothorax. IMPRESSION: Cardiomegaly and mild pulmonary edema. There is likely atelectasis of the right middle lobe. Follow-u p to resolution is recommended to exclude endobronchial mass. ACT 112: Positive. There are findings on this exam that require communication between the performing entity and the patient following Patient Test Result Information Act ([place] Act 112) guidelines. Electronically signed by: Fernando Chang M.D. 09/13/2023 1:41 PM
[2023-09-13] MEDS ORDERED: ALBUTEROL 0.083% NEBU SOLN 3 ML VIAL NEB STA (13:45)
--- NOTE | 2023-09-13 13:50 | Emergency Department Note ---
Impression & Plan Dyspnea, Acute on chronic respiratory failure, Respiratory syncytial virus (RSV) ED Provider Note ED Provider Note NAME: STACY GANDHI AGE:88 SEX: Female : 1935 ARRIVES VIA: Private vehicle INFORMANT: Patient, POA ED PROVIDER(s): Lea Miguel DO CHIEF COMPLAINT: Shortness of breath HPI: This is an 88-year-old female presents emergency department due to increased shortness of breath over the last week. Family member who is the POA at bedside helps provide additional history. Patient admits to increased cough, occasionally productive of yellow sputum, no hemoptysis. She also admits to nasal congestion and rhinorrhea. Member states she did have fever 1 day however none since. Possible sick contact with great grandchild over the , no further sick contacts since. Patient does have history of congestive heart failure. She typically wears oxygen at night however she is also been using it during the day at 2 L/min. Patient noted to be on 3-4 lpm here. Family member states she also has a nebulizer she has been periodically using as well. No recent increased leg swelling or change in weight. PAST MEDICAL HISTORY:See Below PAST SURGICAL HISTORY:See Below FAMILY HISTORY:See Below SOCIAL HISTORY:See Below HOME MEDICATIONS:See Below ALLERGIES:See Below VITALS:See Below PHYSICAL EXAMINATION: GENERAL: alert, well appearing, well nourished, no distress, non-toxic EYE EXAM: normal conjunctiva, PERRL and EOM's grossly intact OROPHARYNX: no exudate, no erythema, lips, buccal mucosa, and tongue normal and mucous membranes are moist NECK: supple, no nuchal rigidity, no adenopathy, non-tender LUNGS: Clear to auscultation. Normal chest wall mechanics, no w/r/r HEART: no murmurs, S1 normal and S2 normal ABDOMEN: abdomen soft, non-tender, normo-active bowel sounds, no masses, no rebound or guarding. BACK: Back is symmetrical on inspection and there is no deformity, no midline tenderness, no CVA tenderness. SKIN: no rashes, petechiae, orbruising UPPER EXTREMITIES: upper extremities are grossly normal. FROM, nml pulses b/l. LOWER EXTREMITIES: No pitting edema. FROM, nml pulses b/l. NEURO EXAM: Normal sensorium, cranial nerves II-XII grossly intact, normal speech, no facial droop,nogross weakness of arms, no gross weakness of legs. Gross sensation intact. No ataxia. Vital Signs: reviewed and remarkable Differential Diagnosis: pneumonia, bronchitis, COPD/Asthma exacerbation, pneumothorax, pulmonary embolism, congestive heart failure, acute coronary syndrome, as well as others were considered MEDICAL DECISION MAKING: This is an 80-year-old female presents emergency room due to concern for increased shortness of breath as well as URI symptoms over the last several days. Patient initially seen in the waiting room area she presented on day of high volume and acuity. Patient was wearing oxygen at this time and family states she has been increasing the amount of oxygen she has required. Labs drawn and sent, IV established, EKG and chest x-ray formed bedside interpreted by me and patient monitored on telemetry once she was placed in a regular patient room. Patient was noted to have increased dyspnea simply with being readjusted in bed, and was noted to have additional oxygen requirements from her usual 2 L/min to between 3 and 4. Due to the abnormality noted on the chest x- ray as well as her advanced age, patient sent for additional CT of the chest. Patient's nasal swab ultimately was RSV positive which is likely the cause of her evolving symptoms. Due to concern for increased oxygen requirements, advanced age and accompanying symptoms, case discussed with [facility] hospitalist team for additional evaluation and management. Patient's INR was noted to be mildly subtherapeutic. I do not suspect accompanying PE. Mild YISEL noted for the patient based on comparison to prior levels, although CKD was previously noted. Patient also has history of CHF and is likely at risk for exacerbation due to accompanying acute respiratory illness. Consultation(s): 1545: Discussed with Wilda [facility] hospitalist team, for additional evaluation and mgmt. ER Treatment Provided: See below Diagnostics Interpreted By Me: -ECG: Paced at 65, leftward axis, prolonged intervals consistent with pacing, no acute ST/T wave changes -Cardiac Monitoring: An order was placed for continuous cardiac monitoring. The monitor shows a rate of 70 with normal sinus rhythm. -Laboratory studies: As stated above and show below. -Imaging studies: X-ray Chest: A single view study of the chest was reviewed and was negative for cardiomegaly, effusion, pulmonary edema, or wide mediastinum. Pleural effusion versus infiltrate noted in the right middle lobe. Triage Nursing Note Reviewed Prior/Outside Records Reviewed-cardiac echo from 2021 reviewed Past Med/Surg History Medical History (Updated 09/14/23 @ 16:38 by Lea Miguel DO) Right middle lobe pneumonia Chronic diastolic heart failure COPD (chronic obstructive pulmonary disease) CKD (chronic kidney disease), stage III DM (diabetes mellitus), type 2 Hypertension Cardiac pacemaker in situ Tachy-pham syndrome Atrial fibrillation Acute on chronic diastolic CHF (congestive heart failure), NYHA class 3 MACARIO (dyspnea on exertion) Acute dyspnea Acute exacerbation of congestive heart failure Acute decompensated heart failure Hypertension Anticoagulated on Coumadin Asthma CHF (congestive heart failure) Diabetes Atrial fibrillation (04/18/13) Surgical History Appendectomy (04/18/13) Family History (Updated 09/13/23 @ 17:34 by Wilda Castaneda PA-C) Other Alzheimer disease Breast cancer Social History Smoking Status: Never smoker Second Hand Exposure: No; Do You Dip or Chew Tobacco: No; Tobacco Cessation Education Requested by Patient: No Hx Alcohol Use: No Hx Substance Use: No Preferred Language: Kazakh Communication Ability: Effective 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 Beliefs That Will Affect Care: None marital status: Current Living Situation: Family Current Living Situation Comment: spouse, daughter, son, daughter in law, grandchildren Other Information That Helps Us Care for You: No Feels Safe at Home: Yes Safety Concerns: Feels Safe At This Time Assistive Devices: CPAP, Denture - Upper, Denture - Lower, Glasses, Hearing Aid - Left, Oxygen - at Night and Walker Allergies Allergies Allergy/AdvReac Type Severity Reaction Status Date / Time Penicillins Allergy Intermediate RASH Verified 09/13/23 15:51 glipizide AdvReac dizziness/c Verified 09/13/23 15:51 onfusion Home Meds Home Medications Medication Instructions Recorded Confirmed pantoprazole 40 mg tablet,delayed 40 mg PO QAM ##0 12/25/14 09/13/23 release diltiazem HCl 240 mg 240 mg PO QAM ##0 09/30/17 09/13/23 tablet,extended release 24 hr metoprolol succinate 100 mg 100 mg PO BID ##0 10/15/17 09/13/23 tablet,extended release 24 hr sitagliptin phosphate 50 mg tablet 50 mg PO QAM #0 tabs 02/22/18 09/13/23 (Januvia) levothyroxine 75 mcg tablet 75 mcg PO DAILYBB 90 days #90 tabs 05/25/18 09/13/23 rosuvastatin 20 mg tablet 20 mg PO PM 04/14/19 09/13/23 ergocalciferol (vitamin D2) 1,250 1,250 mcg PO WK 10/02/20 09/13/23 mcg (50,000 unit) capsule (Vitamin D2) furosemide 40 mg tablet 40 mg PO AMHS 09/13/23 09/13/23 magnesium oxide 400 mg PO BID 09/13/23 09/13/23 montelukast 10 mg tablet 10 mg PO QAM 09/13/23 09/13/23 warfarin 5 mg tablet 2.5 mg PO MOFR@0900 09/13/23 09/13/23 warfarin 5 mg tablet (Jantoven) 5 mg PO SUTUWETHSA@0900 09/13/23 09/13/23 Previous Rx's Medication Instructions Recorded isosorbide mononitrate 30 mg 30 mg PO QAM #30 tabs 04/07/22 tablet,extended release 24 hr Results & Data (ED) Vital Signs Vital Signs - 24 hr 09/13/23 12:35 09/13/23 15:29 09/13/23 15:31 Temperature 36.4 C L Temperature Source Temporal Artery Scan Pulse Rate 81 Pulse Rate [Apical] 60 Respiratory Rate 20 14 Respiratory Effort / Characteristics Non-Labored Spontaneous Respiratory Depth Normal Respiratory Pattern Regular Blood Pressure 155/66 H Blood Pressure [Right Arm] 150/77 H Blood Pressure Mean 95 Blood Pressure Mean [Right Arm] 101 Blood Pressure Position [Right Arm] Semi-fowlers Pulse Oximetry 100 97 97 Oxygen Delivery Method Nasal Cannula Nasal Cannula Nasal Cannula Oxygen Flow Rate 2 4 4 Sepsis Recent Fever Within 48 Hours No Sepsis New/Unexplained Change in Mental Status No Sepsis Action Taken by Nursing No Action Required 09/13/23 15:34 Temperature Temperature Source Pulse Rate 69 Pulse Rate [Apical] Respiratory Rate Respiratory Effort / Characteristics Respiratory Depth Respiratory Pattern Blood Pressure Blood Pressure [Right Arm] Blood Pressure Mean Blood Pressure Mean [Right Arm] Blood Pressure Position [Right Arm] Pulse Oximetry Oxygen Delivery Method Oxygen Flow Rate Sepsis Recent Fever Within 48 Hours Sepsis New/Unexplained Change in Mental Status Sepsis Action Taken by Nursing Laboratory Data 09/14/23 04:46 09/14/23 04:46 Lab Results 09/13/23 09/13/23 09/13/23 Range/Units 13:00 13:01 13:02 WBC 6.92 (4.8-10.8) K/ul RBC 3.73 L (4.20-5.40) M/uL Hgb 10.9 L (12.0-16.0) g/dl Hct 33.0 L (37.0-47.0) % MCV 88.5 (80.0-100.0) fL MCH 29.2 (25.0-34.0) pg MCHC 33.0 (32.0-36.0) g/dL RDW Std Deviation 47.7 H (36.4-46.3) fL RDW Coeff of Popeye 14.8 H (11.5-14.5) % Plt Count 206 (130-400) K/uL MPV 10.0 (9.4-12.4) fL Immature Gran % (Auto) 0.3 % Neut % (Auto) 66.4 % Lymph % (Auto) 15.5 % Monroe % (Auto) 13.3 % Eos % (Auto) 3.9 % Baso % (Auto) 0.6 % Neut # (Auto) 4.60 (1.40-6.50) K/uL Lymph # (Auto) 1.07 L (1.20-3.40) K/uL Monroe # (Auto) 0.92 H (0.11-0.59) K/uL Eos # (Auto) 0.27 (0.00-0.50) K/uL Baso # (Auto) 0.04 (0.00-0.20) K/uL Immature Gran # (Auto) 0.02 (0.01-0.20) K/uL PT 19.5 H (9.0-12.0) Seconds INR 1.9 H (0.9-1.1) Sodium 138 (136-145) mmol/L Potassium 3.7 (3.5-5.1) mmol/L Chloride 101 (98-107) mmol/L Carbon Dioxide 31 (21-32) mmol/L Anion Gap 6 (3-11) BUN 23 (6-23) mg/dl Creatinine 1.25 H (0.6-1.2) mg/dl Est Cr Clr Drug Dosing Not Reportable Est GFR ( Amer) 44.5 ml/min Est GFR (Non-Af Amer) 38.4 ml/min BUN/Creatinine Ratio 18.4 (10-20) Glucose 153 H (70-99(Fasting)) mg/dl Calcium 9.0 (8.6-10.3) mg/dl Total Bilirubin 0.9 (0.2-1.0) mg/dl AST 19 (13-39) U/L ALT 12 (7-52) U/L Alkaline Phosphatase 102 (34-104) U/L Troponin I High Sens 11.8 (0-14) pg/ml B-Natriuretic Peptide 570 H (0-100) pg/ml Total Protein 6.4 (6.0-8.3) gm/dl Albumin 4.0 (3.4-5.0) gm/dl Globulin 2.4 L (2.5-4.0) gm/dl Albumin/Globulin Ratio 1.7 (0.9-2) Procalcitonin < 0.05 (0-0.5) ng/ml Adenovirus (PCR) Not Detected (NotDetected) B. pertussis DNA (PCR) Not Detected (NotDetected) B.parapertussis DNA PCR Not Detected (NotDetected) C. pneumoniae DNA (PCR) Not Detected (NotDetected) Coronavirus OC43 (PCR) Not Detected (NotDetected) Coronavirus HKU1 (PCR) Not Detected (NotDetected) Coronavirus 229E (PCR) Not Detected (NotDetected) SARS-CoV-2 (PCR) Not Detected (NotDetected) Coronavirus NL63 (PCR) Not Detected (NotDetected) Human Metapneumovir PCR Not Detected (NotDetected) Influenza Type A (PCR) Not Detected (NotDetected) Influenza Type B (PCR) Not Detected (NotDetected) M. pneumoniae (PCR) Not Detected (NotDetected) Parainfluenza 1 (PCR) Not Detected (NotDetected) Parainfluenza 2 (PCR) Not Detected (NotDetected) Parainfluenza 3 (PCR) Not Detected (NotDetected) Parainfluenza 4 (PCR) Not Detected (NotDetected) RSV (PCR) DETECTED A* (NotDetected) Entero/Rhino (PCR) Not Detected (NotDetected) Administered Medications Diltiazem HCl (Diltiazem Hcl 240 Mg Capcr) [facility] Stop: 10/14/23 08:59 Last Admin: 09/14/23 10:39 Dose: 240 mg Documented By: DESEAN Doxycycline Hyclate (Doxycycline Hyclate 100 Mg Cap) 100 mg PO BID [facility] Stop: 09/20/23 20:59 Last Admin: 09/14/23 10:40 Dose: 100 mg Documented By: Admin: 09/13/23 20:19 Dose: 100 mg Documented By: Furosemide (Furosemide 40 Mg Tab) 40 mg PO [facility] Stop: 10/13/23 20:59 Last Admin: 09/14/23 10:40 Dose: 40 mg Documented By: Admin: 09/13/23 20:19 Dose: 40 mg Documented By: Insulin Aspart (Insulin Aspart Per Unit Charge) 0 units SC [facility] Stop: 10/13/23 20:59 Last Admin: 09/14/23 13:54 Dose: 3 units Documented By: DESEAN Co-signed By: BRITTNI Admin: 09/14/23 10:37 Dose: 3 units Documented By: DESEAN Co-signed By: MARY Admin: 09/13/23 20:26 Dose: 4 units Documented By: Co-signed By: JENNY Isosorbide Mononitrate (Isosorbide Monroe Extended Rel 30 Mg Tabcr) 30 mg PO [facility] Stop: 10/14/23 08:59 Last Admin: 09/14/23 10:41 Dose: 30 mg Documented By: DESEAN Levothyroxine Sodium (Levothyroxine Sodium 75 Mcg Tablet) 75 mcg PO DAILYBB [facility] Stop: 10/14/23 06:29 Last Admin: 09/14/23 10:37 Dose: Not Given Documented By: DESEAN Metoprolol Succinate (Metoprolol Succ 50mg Ext Rel Tab) 100 mg PO BID [facility] Stop: 10/13/23 20:59 Last Admin: 09/14/23 10:42 Dose: 100 mg Documented By: Admin: 09/13/23 20:20 Dose: 100 mg Documented By: Montelukast Sodium (Montelukast Sodium 10 Mg Tablet) [facility] Stop: 10/14/23 08:59 Last Admin: 09/14/23 10:43 Dose: 10 mg Documented By: DESEAN Pantoprazole Sodium (Pantoprazole 40 Mg Tab) [facility] Stop: 10/14/23 08:59 Last Admin: 09/14/23 10:43 Dose: 40 mg Documented By: DESEAN Rosuvastatin Calcium (Rosuvastatin Calcium 20 Mg Tab) 20 mg PO PM [facility] Stop: 10/13/23 20:59 Last Admin: 09/13/23 20:20 Dose: 20 mg Documented By: AB Discontinued Medications Albuterol (Albuterol 0.083% Nebu Soln 3 Ml Vial) 2.5 mg NEB NOW STA; Protocol Stop: 09/13/23 13:46 Last Admin: 09/13/23 15:32 Dose: 2.5 mg Documented By: Albuterol (Albut/Ipratrop 3mg/0.5mg Neb 3 Ml Vial) 3 ml NEB QIDR [facility]; Protocol Stop: 10/13/23 18:59 Last Admin: 09/14/23 11:45 Dose: 3 ml Documented By: Admin: 09/14/23 08:14 Dose: 3 ml Documented By: Admin: 09/13/23 19:03 Dose: 3 ml Documented By: XAVI Methylprednisolone 40 mg/ (Syringe) 0.64 mls @ 1.5 mls/min IV DAILY [facility] Stop: 10/14/23 08:59 Last Admin: 09/14/23 10:44 Dose: 1.5 mls/min Documented By: DESEAN Ioversol (Optiray 320 500ml) 87 ml IV ONCE ONE Stop: 09/13/23 15:11 Last Admin: 09/13/23 15:05 Dose: 87 ml Documented By: MARYLOU Methylprednisolone (Methylprednisolone 40 Mg/Ml Vial) 40 mg IV DAILY STA Stop: 09/13/23 16:52 Last Admin: 09/13/23 17:36 Dose: 40 mg Documented By: Sodium Chloride (Sodium Chlor 7% 4 Ml Neb) 4 ml NEB BIDR [facility] Stop: 10/13/23 18:59 Last Admin: 09/14/23 08:14 Dose: 4 ml Documented By: Admin: 09/13/23 21:17 Dose: 4 ml Documented By: XAVI Warfarin Sodium (Warfarin Sod 5 Mg Tab) 5 mg PO NOW ONE Stop: 09/13/23 16:52 Last Admin: 09/13/23 17:36 Dose: 5 mg Documented By: AB Imaging Data Radiologist's Impression: Chest X-Ray 09/13/23 12:40 XR chest 1V not portable CLINICAL HISTORY: illness TECHNIQUE: Single frontal radiograph of the chest was obtained. Comparison: Comparison is made to chest radiograph 04/02/2022 FINDINGS: An implanted pacemaker is seen. Cardiomegaly is noted. The aortic arch is calcified. Interspace opacity in the right midlung likely represents right middle lobe atelectasis. Mild vascular prominence is seen. No evidence of pleural effusion or pneumothorax. IMPRESSION: Cardiomegaly and mild pulmonary edema. There is likely atelectasis of the right middle lobe. Follow-up to resolution is recommended to exclude endobronchial mass. ACT 112: Positive. There are findings on this exam that require communication between the performing entity and the patient following Patient Test Result Information Act ([place] Act 112) guidelines. Electronically signed by: Fernando Chang M.D. 09/13/2023 1:[address] 09/13/23 13:[address] WITH CONTRAST CT DOSE: 698.06 mGy.cm HISTORY: Worsening shortness of breath. TECHNIQUE: Multiaxial CT images of the chest were performed following the intravenous administration of contrast. A dose lowering technique was utilized adhering to the principles of ALARA. COMPARISON: Chest CTA 02/22/2018. FINDINGS: There is been interval development of complete collapse of the right middle lobe. The distal right lower lobe bronchi appear opacified. The proximal right middle lobe bronchus is patent. This is nonspecific but could be due to mucoid impaction/aspiration. There is also partial opacification of the right upper lobe anterior segmental bronchi. The left central bronchi appear patent. No pneumothorax. Trace right pleural effusion. Mild respiratory motion artifact. Mild dependent changes seen within the base of the lower lobes. Mosaic attenuation within the lungs. This suggests air trapping. Linear densities within the right upper lobe anteriorly favors subsegmental atelectasis. No evidence for pulmonary edema. Mild superior endplate compression deformities at T1 and T2 weighted imaging, but likely chronic. There are old, healed left anterior rib fractures. Degenerative changes within the shoulders. There is a left-sided pacemaker. Limited views of the upper abdomen demonstrate normal liver and spleen. Is retrograde opacification of contrast into the hepatic veins. There is a 12 mm left adrenal gland nodule. Calcified plaque within the normal caliber thoracic aorta. Normal esophagus. Mild mediastinal and bilateral hilar lymphadenopathy measuring up to 11 mm in short axis diameter. The heart is moderately enlarged. Severe coronary artery calcifications are noted. The main pulmonary arteries are patent. IMPRESSION: 1. There is been interval development of complete collapse of the right middle lobe. The distal right lower lobe bronchi appear opacified. The proximal right middle lobe bronchus is patent. This is nonspecific but could be due to mucoid impaction/aspiration. Follow-up bronchoscopy recommended. 2. Trace right pleural effusion. 3. Mosaic attenuation within the lungs suggestive of air-trapping. 4. Mild mediastinal and bilateral hilar lymphadenopathy. This has slightly progressed in the interval. 5. Moderate cardiomegaly. ACT 112: Negative or not required by law. Electronically signed by: Carson Munoz M.D. 09/13/2023 3:33 PM Discharge Plan Visit Data Chief Complaint: Shortness of Breath/Dyspnea Stated Complaint: COUGH, CONGESTION, SOB ED Provider: Lea Miguel Discharge Problem: Dyspnea, Acute on chronic respiratory failure, Respiratory syncytial virus (RSV) Discharge Instructions Interventions: ED Discharge Assessment Last Done: 09/13/23 18:19
[2023-09-13 13:54] LABS: Alanine Aminotransferase 12 U/L (7-52); Albumin Globulin Ratio 1.7 (0.9-2); Alkaline Phosphatase 102 U/L (34-104); Anion Gap 6 (3-11); Aspartate Aminotransferase 19 U/L (13-39); BUN Creatinine Ratio 18.4 (10-20); Bilirubin,Total 0.9 mg/dl (0.2-1.0); Blood Urea Nitrogen 23 mg/dl (6-23); Carbon Dioxide 31 mmol/L (21-32); Chloride 101 mmol/L (98-107); Est GFR (African American) 44.5 ml/min; Est GFR (Non-African American) 38.4 ml/min; Globulin 2.4 gm/dl (2.5-4.0); Glucose 153 mg/dl (70-99(Fasting)); Potassium 3.7 mmol/L (3.5-5.1); Sodium 138 mmol/L (136-145); Total Protein 6.4 gm/dl (6.0-8.3)
[2023-09-13 14:22] LABS: INR 1.9 (0.9-1.1); Prothrombin Time 19.5 Seconds (9.0-12.0)
[2023-09-13 14:29] LABS: Adenovirus PCR Not Detected (NotDetected); Bordetella parapertussis PCR Not Detected (NotDetected); Bordetella pertussis PCR Not Detected (NotDetected); Chlamydia pneumoniae PCR Not Detected (NotDetected); Coronavirus 229E PCR Not Detected (NotDetected); Coronavirus CoV-2 (COVID19)PCR Not Detected (NotDetected); Coronavirus HKU1 PCR Not Detected (NotDetected); Coronavirus NL63 PCR Not Detected (NotDetected); Coronavirus OC43PCR Not Detected (NotDetected); Human Metapneumovirus PCR Not Detected (NotDetected); Influenza A PCR Not Detected (NotDetected); Influenza B PCR Not Detected (NotDetected); Mycoplasma pneumoniae PCR Not Detected (NotDetected); Parainfluenza Virus 1 PCR Not Detected (NotDetected); Parainfluenza Virus 2 PCR Not Detected (NotDetected); Parainfluenza Virus 3 PCR Not Detected (NotDetected); Parainfluenza Virus 4 PCR Not Detected (NotDetected); Rhinovirus/Enterovirus PCR Not Detected (NotDetected)
[2023-09-13 14:33] LABS: Troponin I High Sensitivity 11.8 pg/ml (0-14)
[2023-09-13 14:51] LABS: Respiratory Syncytial VirusPCR DETECTED (NotDetected)
--- NOTE | 2023-09-13 15:06 | Electrocardiogram Report ---
Test Reason : Blood Pressure : / mmHG Vent. Rate : 065 BPM Atrial Rate : 060 BPM P-R Int : 000 ms QRS Dur : 198 ms QT Int : 492 ms P-R-T Axes : 000 -77 097 degrees QTc Int : 511 ms Ventricular-paced rhythm Abnormal ECG When compared with ECG of 03-APR-2022 05:58, Electronic ventricular pacemaker has replaced Atrial fibrillation Confirmed by Zenon Rosen ([id number]) on 09/13/2023 3:06:30 PM Referred By: REFERRED SELF Confirmed By:Zenon Rosen
[2023-09-13] MEDS ORDERED: OPTIRAY 320 500ml IV ONE (15:10)
--- NOTE | 2023-09-13 15:34 | CT Scan Report ---
CHEST CT WITH CONTRAST CT DOSE: 698.06 mGy.cm HISTORY: Worsening shortness of breath. TECHNIQUE: Multiaxial CT images of the chest were performed following the intravenous administration of contrast. A dose lowering technique was utilized adhering to the principles of ALARA. COMPARISON: Chest CTA 02/22/2018. FINDINGS: There is been interval development of complete collapse of the right middle lobe. The dista l right lower lobe bronchi appear opacified. The proximal right middle lobe bronchus is patent. This is nonspecific but could be due to mucoid impaction/aspiration. There is also partial opacification o f the right upper lobe anterior segmental bronchi. The left central bronchi appear patent. No pneumot horax. Trace right pleural effusion. Mild respiratory motion artifact. Mild dependent changes seen wi thin the base of the lower lobes. Mosaic attenuation within the lungs. This suggests air trapping. Li near densities within the right upper lobe anteriorly favors subsegmental atelectasis. No evidence fo r pulmonary edema. Mild superior endplate compression deformities at T1 and T2 weighted imaging, but likely chronic. There are old, healed left anterior rib fractures. Degenerative changes within the sh oulders. There is a left-sided pacemaker. Limited views of the upper abdomen demonstrate normal liver and spleen. Is retrograde opacification of contrast into the hepatic veins. There is a 12 mm left ad renal gland nodule. Calcified plaque within the normal caliber thoracic aorta. Normal esophagus. Mild mediastinal and bilateral hilar lymphadenopathy measuring up to 11 mm in short axis diameter. The he art is moderately enlarged. Severe coronary artery calcifications are noted. The main pulmonary arter ies are patent. IMPRESSION: 1. There is been interval development of complete collapse of the right middle lobe. The distal right lower lobe bronchi appear opacified. The proximal right middle lobe bronchus is patent. This is nons pecific but could be due to mucoid impaction/aspiration. Follow-up bronchoscopy recommended. 2. Trace right pleural effusion. 3. Mosaic attenuation within the lungs suggestive of air-trapping. 4. Mild mediastinal and bilateral hilar lymphadenopathy. This has slightly progressed in the interval . 5. Moderate cardiomegaly. ACT 112: Negative or not required by law. Electronically signed by: Carson Munoz M.D. 09/13/2023 3:33 PM
--- NOTE | 2023-09-13 15:50 | History & Physical Report ---
Date of Service September 13, 2023 Assessment & Plan (1) Acute and chronic respiratory failure: (2) RSV (acute bronchiolitis due to respiratory syncytial virus): (3) COPD (chronic obstructive pulmonary disease): (4) Atrial fibrillation: (5) DM (diabetes mellitus), type 2: (6) CKD (chronic kidney disease), stage III: (7) Chronic diastolic heart failure: (8) Hypertension: Plan: This is an 88yo F with a PMH of chronic diastolic heart failure (EF of 55-60%, TTE 2021), HTN, DAIN on CPAP HS with O2 2L bled through, pulmonary hypertension, SSS s/p cardiac pacemaker, anticoagulated on Coumadin, PVD, HTN, hyperlipidemia, hypothyroidism, DM2 on oral meds, CRI (baseline creatinine 1.3-1.4) and other medical problems listed below who presents from home with progressively worsening SOB over the past week and was found to have acute on chronic respiratory failure in setting of RSV. Acute on chronic respiratory failure COPD exacerbation in setting of RSV Saturating 97% on 4L NC O2 (requires 2L O2 HS at baseline) - goal O2 sat 88-90% given COPD CT chest with interval development of complete collapse of the right middle lobe. The distal right lower lobe bronchi appear opacified. The proximal right middle lobe bronchus is patent. This is nonspecific but could be due to mucoid impaction/aspiration. Follow-up bronchoscopy recommended Duonebs QIDR, doxycycline 100mg BID, Solu-medrol 40mg IV daily Discussed with pulm service given imaging as above - recommend aggressive pulmonary toilet with flutter valve, chest PT, hypertonic saline nebs Atrial fibrillation Continue Toprol BID, anticoagulated with coumadin, INR 1.9. Given missed dose this evening, monitor with daily INR Chronic diastolic heart failure No recent weight gain, BLE at baseline per patient. Continue home lasix dose, monitor volume status closely SSS S/p pacemaker placement. Paced rhythm on EKG CKD III Cr 1.25 (baseline mid-1s). Monitor with daily BMP HTN Continue Toprol DM II A1c 6.2 in March 2023, repeat a1c in AM Hold home agents SSI while in-patient BSG AC HS DVT Ppx: Coumadin Code status: DNR/DNI per discussion with patient, daughter at bedside PCP: Sher Phoenix Dispo: Admitted to PCU Patient seen in collaboration with Dr. Martin. Please see addendum. History of Present Illness Chief Complaint: SOB Primary Care Provider: Chad Phoenix DO This is an 88yo F with a PMH of chronic diastolic heart failure (EF of 55-60%, TTE 2019), valvular heart disease (mild TR, moderate MR, mild AR from TTE 2019), HTN, DAIN on CPAP HS with O2 2L bled through, pulmonary hypertension, SSS s/p cardiac pacemaker, anticoagulated on Coumadin, PVD, HTN, hyperlipidemia, hypothyroidism, DM2 on oral meds, CRI (baseline creatinine 1.3-1.4) and other medical problems listed below who presents from home with progressively worsening SOB over the past week. Has had a low grade fever, productive cough, nasal congestion and rhinorrhea over the past week after contact with a sick grandchild over . Typically wears 2L at night however she is also been using it during the day at 2 L/min. Patient noted to be on 3-4 L NC O2 in ED. No recent increased leg swelling or change in weight. No chills, lightheadedness, CP, N/V, abdominal pain, dysuria, diarrhea or constipation. Follows with [facility] pulmonology for COPD, pulm HTN and DAIN on CPAP. Allergies Allergy/AdvReac Type Severity Reaction Status Date / Time Penicillins Allergy Intermediate RASH Verified 09/13/23 15:51 glipizide AdvReac dizziness/c Verified 09/13/23 15:51 onfusion Home Medications Medication Instructions Recorded Confirmed Type pantoprazole 40 mg tablet,delayed 40 mg PO QAM ##0 12/25/14 09/13/23 History release diltiazem HCl 240 mg 240 mg PO QAM ##0 09/30/17 09/13/23 History tablet,extended release 24 hr metoprolol succinate 100 mg 100 mg PO BID ##0 10/15/17 09/13/23 History tablet,extended release 24 hr sitagliptin phosphate 50 mg tablet 50 mg PO QAM #0 tabs 02/22/18 09/13/23 History (Januvia) levothyroxine 75 mcg tablet 75 mcg PO DAILYBB 90 days #90 tabs 05/25/18 09/13/23 History rosuvastatin 20 mg tablet 20 mg PO PM 04/14/19 09/13/23 History ergocalciferol (vitamin D2) 1,250 1,250 mcg PO WK 10/02/20 09/13/23 History mcg (50,000 unit) capsule (Vitamin D2) isosorbide mononitrate 30 mg 30 mg PO QAM #30 tabs 04/07/22 09/13/23 Rx tablet,extended release 24 hr furosemide 40 mg tablet 40 mg PO AMHS 09/13/23 09/13/23 History magnesium oxide 400 mg PO BID 09/13/23 09/13/23 History montelukast 10 mg tablet 10 mg PO QAM 09/13/23 09/13/23 History warfarin 5 mg tablet 2.5 mg PO MOFR@0900 09/13/23 09/13/23 History warfarin 5 mg tablet (Jantoven) 5 mg PO SUTUWETHSA@0900 09/13/23 09/13/23 History Past Med/Surg History Medical History (Updated 09/13/23 @ 17:13 by Wilda Castaneda PA-C) Chronic diastolic heart failure COPD (chronic obstructive pulmonary disease) CKD (chronic kidney disease), stage III DM (diabetes mellitus), type 2 Hypertension Cardiac pacemaker in situ Tachy-pham syndrome Atrial fibrillation Acute on chronic diastolic CHF (congestive heart failure), NYHA class 3 MACARIO (dyspnea on exertion) Acute dyspnea Acute exacerbation of congestive heart failure Acute decompensated heart failure Hypertension Anticoagulated on Coumadin Asthma CHF (congestive heart failure) Diabetes Atrial fibrillation (04/18/13) Surgical History Appendectomy (04/18/13) Family History (Updated 09/13/23 @ 17:34 by Wilda Castaneda PA-C) Other Alzheimer disease Breast cancer Social History Smoking Status: Never smoker Second Hand Exposure: No; Do You Dip or Chew Tobacco: No; Hx Alcohol Use: Yes Hx Substance Use: No Preferred Language: Chinese Communication Ability: Effective Cable Inspector Required: No Beliefs That Will Affect Care: None marital status: Current Living Situation: Spouse and Family Feels Safe at Home: Yes Assistive Devices: Cane, CPAP, Oxygen - at Night and Walker Review of Systems Review of Systems: At least ten systems reviewed and negative except as noted in the HPI. Physical Exam Physical Exam: Please see Dr. Martin's addendum for physical exam. Results & Data Results & Data Vital Signs (Past 12 Hours) Vital Signs Temp Pulse Pulse Resp BP BP Pulse Ox 09/13/23 15:34 69 09/13/23 15:31 97 09/13/23 15:29 60 14 150/77 H 97 09/13/23 12:35 36.4 C L 81 20 155/66 H 100 O2 Del Method O2 Flow Rate 09/13/23 15:34 09/13/23 15:31 Nasal Cannula 4 09/13/23 15:29 Nasal Cannula 4 09/13/23 12:35 Nasal Cannula 2 Laboratory Results Short CBC 09/13/23 Range/Units 13:01 WBC 6.92 (4.8-10.8) K/ul Hgb 10.9 L (12.0-16.0) g/dl Hct 33.0 L (37.0-47.0) % Plt Count 206 (130-400) K/uL BMP 09/13/23 13:01 Sodium 138 Potassium 3.7 Chloride 101 Carbon Dioxide 31 BUN 23 Creatinine 1.25 H Glucose 153 H Calcium 9.0 Liver Function 09/13/23 Range/Units 13:01 Total Bilirubin 0.9 (0.2-1.0) mg/dl AST 19 (13-39) U/L ALT 12 (7-52) U/L Alkaline Phosphatase 102 (34-104) U/L Albumin 4.0 (3.4-5.0) gm/dl Diagnostic Findings Chest X-Ray 09/13/23 12:40 XR chest 1V not portable CLINICAL HISTORY: illness TECHNIQUE: Single frontal radiograph of the chest was obtained. Comparison: Comparison is made to chest radiograph 04/02/2022 FINDINGS: An implanted pacemaker is seen. Cardiomegaly is noted. The aortic arch is calcified. Interspace opacity in the right midlung likely represents right middle lobe atelectasis. Mild vascular prominence is seen. No evidence of pleural effusion or pneumothorax. IMPRESSION: Cardiomegaly and mild pulmonary edema. There is likely atelectasis of the right middle lobe. Follow-up to resolution is recommended to exclude endobronchial mass. ACT 112: Positive. There are findings on this exam that require communication between the performing entity and the patient following Patient Test Result Information Act ([place] Act 112) guidelines. Electronically signed by: Fernando Chang M.D. 09/13/2023 1:[address] 09/13/23 13:[address] WITH CONTRAST CT DOSE: 698.06 mGy.cm HISTORY: Worsening shortness of breath. TECHNIQUE: Multiaxial CT images of the chest were performed following the intravenous administration of contrast. A dose lowering technique was utilized adhering to the principles of ALARA. COMPARISON: Chest CTA 02/22/2018. FINDINGS: There is been interval development of complete collapse of the right middle lobe. The distal right lower lobe bronchi appear opacified. The proximal right middle lobe bronchus is patent. This is nonspecific but could be due to m ucoid impaction/aspiration. There is also partial opacification of the right upper lobe anterior segmental bronchi. The left central bronchi appear patent. No pneumothorax. Trace right pleural effusion. Mild respiratory motion artifact. Mild dependent changes seen within the base of the lower lobes. Mosaic attenuation within the lungs. This suggests air trapping. Linear densities within the right upper lobe anteriorly favors subsegmental atelectasis. No evidence for pulmonary edema. Mild superior endplate compression deformities at T1 and T2 weighted imaging, but likely chronic. There are old, healed left anterior rib fractures. Degenerative changes within the shoulders. There is a left-sided pacemaker. Limited views of the upper abdomen demonstrate normal liver and spleen. Is retrograde opacification of contrast into the hepatic veins. There is a 12 mm left adrenal gland nodule. Calcified plaque within the normal caliber thoracic aorta. Normal esophagus. Mild mediastinal and bilateral hilar lymphadenopathy measuring up to 11 mm in short axis diameter. The heart is moderately enlarged. Severe coronary artery calcifications are noted. The main pulmonary arteries are patent. IMPRESSION: 1. There is been interval development of complete collapse of the right middle lobe. The distal right lower lobe bronchi appear opacified. The proximal right middle lobe bronchus is patent. This is nonspecific but could be due to mucoid impaction/aspiration. Follow-up bronchoscopy recommended. 2. Trace right pleural effusion. 3. Mosaic attenuation within the lungs suggestive of air-trapping. 4. Mild mediastinal and bilateral hilar lymphadenopathy. This has slightly progressed in the interval. 5. Moderate cardiomegaly. ACT 112: Negative or not required by law. Electronically signed by: Carson Munoz M.D. 09/13/2023 3:33 PM ECG Additional Comments: EKG reviewed: ventricular paced rhythm Supervising Physician Co-Signing Physician Notes Patient is an 88-year-old female with history of diastolic heart failure, valvular heart disease, obstructive sleep apnea on CPAP, chronic oxygen dependency, pulmonary hypertension, atrial fibrillation on Coumadin, CKD, asthma and other medical problems presents with history of worsening cough with yellowish expectoration, shortness of breath, low-grade fever, rhinorrhea, chest congestion since 1 week duration. She admits to have a sick contact with her grandchild. Patient is a poor historian due to significant hearing loss. Most of the history is obtained from patient's family at bedside. She is requiring more supplemental oxygen than her baseline. Please review HPI for complete details of presentation. I personally reviewed blood work, imaging studies and EKG. Blood work suggestive of chronic anemia hemoglobin 10.9, subtherapeutic INR 1.9, creatinine 1.25, glucose 153, BNP 570, procalcitonin normal. Chest CT showed findings suggestive of right middle lobe complete collapse, findings suggestive of mucoid impaction/aspiration. Also showed trace right pleural effusion. Noted mediastinal lymphadenopathy. EKG showed ventricular paced rhythm, QTc 492. Physical Exam: Vitals signs as noted above General Appearance:Obese, no apparent distress, Elderly Head: normocephalic, Atraumatic Eyes: normal inspection, EOMI Neck: supple, Trachea midline Respiratory/Chest: Decreased coarse breath sounds, scattered Rhonchi, No accessory muscle use Cardiovascular: S1, S2, +murmur,+Pacer Abdomen/GI:Soft, Non tender, Bowel sounds present Extremities/Musculoskeletal:normal inspection, 1+ B/L LE edema Neurologic/Psych:AAOX3, grossly no focal neurological deficits, +Decreased hearing Skin: normal color, warm Acute on Chronic Respiratory failure with hypoxia Acute COPD Exacerbation Secondary to RSV infection Right Middle Lobe collapse due to mucoid impaction Mediastinal/hilar lymphadenopathy CT Scan reviewed. Serology + for RSV Agree with IV Solu-Medrol, nebs, doxycycline, hypertonic saline, chest PT Aggressive pulmonary hygiene Aspiration precautions Pulmonary consulted Subtherapeutic INR Coumadin given Monitor INR I personally reviewed the record. Patient is interviewed and examined at bedside. Patient's care is coordinated with Wilda Castaneda PA-C. Please refer to the documentation above for details of patient's presentation and for discussion of other issues.
[2023-09-13] MEDS ORDERED: WARFARIN SOD 5 MG TAB PO ONE (16:51)
[2023-09-13] MEDS ORDERED: CARBOHYDRATES FOR HYPOGLYCEMIA PO PRN (17:42)
[2023-09-13] MEDS ORDERED: DEXTROSE 50% 50 ML SYRINGE IV PRN (17:42)
[2023-09-13] MEDS ORDERED: GLUCAGON FOR INJ 1 MG VIAL SQ PRN (17:42)
[2023-09-13] MEDS ORDERED: GLUCOSE 40% GEL 15 GM TUBE PO PRN (17:42)
[2023-09-13] MEDS ORDERED: GLUCOSE 10 TAB/TUBE PO PRN (17:42)
[2023-09-13] MEDS ORDERED: ONDANSETRON INJ 2 MG/ML 2 ML VIAL IV PRN (18:18)
[2023-09-13] MEDS ORDERED: ACETAMINOPHEN 325 MG TAB PO PRN (18:18)
[2023-09-13] MEDS ORDERED: POLYETHYLENE (MIRALAX) 17 GM PACK PO PRN (18:18)
[2023-09-13] MEDS: ALBUT/IPRATROP 3MG/0.5MG NEB 3 ML VIAL NEB SCH (19:03)
[2023-09-13] MEDS: DOXYCYCLINE HYCLATE 100 MG CAP PO SCH (20:19)
[2023-09-13] MEDS: FUROSEMIDE 40 MG TAB PO SCH (20:19)
[2023-09-13] MEDS: ROSUVASTATIN CALCIUM 20 MG TAB PO SCH (20:20)
[2023-09-13] MEDS: METOPROLOL SUCC 50MG EXT REL TAB PO SCH (20:20)
[2023-09-13] MEDS: INSULIN ASPART PER UNIT CHARGE SC SCH (20:26)
[2023-09-13] MEDS ORDERED: INSULIN ASPART PER UNIT CHARGE SC SCH (21:00)
[2023-09-13] MEDS: SODIUM CHLOR 7% 4 ML NEB NEB SCH (21:17)
--- OUTSIDE RECORDS SUMMARY | 2023-09-13 22:04 | External Medical Summary | Summary of Care ---
Author Name Unknown Organization [facility] Address [address] [facility] [place] [address] Phone [phone] Care Team Providers Care Database Development Project Manager Name Role Phone JorgitoChad hager Primary Care Provider [phone] Reason for Visit * Reason Comments Dosage Adjustment In Person (Anticoag Cl inic) Encounter Details Date Type Department Care Team (Latest Contact Info) Description 09/05/2023 2:20 PM EST Anticoagulation Pharmacy, [facility] [address] [place] [address] Pharmacist1, [facility] [address] [facility] [place] [address] Atrial fibrillation, unspecified type (HCC)*; Paroxysmal atrial fibrillation (HCC); Anticoagulation management encounter; group home 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 therapy Allergies Active Allergy Reactions Criticality Noted Date Comments Glipizide 02/18/2021 Dizzy, confusion Penicillins Rash 10/13/2001 documented as of this encounter (statuses as of 09/05/2023) Medications Medication Sig Dispensed Refills Start Date End Date Status NEBULIZER MISCIndications:Acut e bronchitis, complicated use every 8 hrs as directed 1 Units 0 03/19/2011 Active SPACER/AERO CHAMBER MOUTHPIECE MISCIndications:Shor tness of breath use with inhalers as instructed 1 Device 2 05/10/2012 Active MAGNESIUM OXIDE 400 MG PO TABS one tablet by mouth twice daily 0 10/13/2014 Active ONETOUCH ULTRASOFT LANCETS MISCIndications:DM type 2, goal A1c below 7 Test up to 4 times daily 5 Box Dosing Unit 10 12/18/2015 Active acetaminophen (TYLENOL) 500 MG Tablet Take 1 Tablet by mouth every 4 hours as needed for Pain. Per [facility] dc summary 06/26/18 0 Active triamcinolone acetonide (ARISTOCORT) 0.1 % ointmentIndications: Eczema of right external ear Apply topically to affected area 2 times a day. To affected area on R external ear 60 g 0 04/06/2019 Active OneTouch Verio In Vitro Strip (Glucose Blood) test once daily Dx. E11.9 100 Strip 3 05/04/2021 Active Albuterol Sulfate (2.5 MG/3ML) 0.083% Inhalation Nebulization Solution (Proventil)Indicatio ns:COPD, group B, by GOLD 2017 classification ([facility]) Inhale 1 Vial via nebulizer every 4 hours as needed for Wheezing or Shortness of Breath. 90 mL 3 10/20/2022 Active Furosemide 40 MG Oral Tablet (Lasix)Indications:H eart failure, diastolic, due to HTN ([facility]) Take 1 Tablet by mouth in the morning and 1 Tablet before bedtime. TAKE 1 TABLET BY MOUTH TWICE DAILY. 180 Tablet 3 10/26/2022 Active Pantoprazole Sodium 40 MG Oral Tablet Delayed Release (Protonix) TAKE 1 TABLET BY MOUTH ONCE DAILY 90 Tablet 3 11/18/2022 Active oxygen IN GAS Increase to 3 LPM bled through CPAP with all sleep. T and B medical 1 Each 0 12/20/2022 Active Vitamin D3 1.25 MG (62244 UT) Oral Capsule TAKE 1 CAPSULE BY MOUTH ONCE WEEKLY 12 Capsule 0 01/17/2023 Active dilTIAZem HCl ER 240 MG Oral Capsule Extended Release 24 HourIndications:Long standing persistent atrial fibrillation (HCC) TAKE 1 CAPSULE BY MOUTH ONCE DAILY 90 Capsule 3 02/14/2023 Active Montelukast Sodium 10 MG Oral Tablet (Singulair) Take 1 Tablet by mouth in the morning. 90 Tablet 3 02/14/2023 Active Nystatin 549737 UNIT/GM External Powder (Nystop) Apply topically to affected area 3 times a day. Apply to underside of L breast 15 g 3 02/21/2023 Active Metoprolol Succinate ER 100 MG Oral Tablet Extended Release 24 Hour (toPROL XL) TAKE 1 TABLET BY MOUTH TWICE DAILY 180 Tablet 3 04/14/2023 Active Isosorbide Mononitrate ER 30 MG Oral Tablet Extended Release 24 Hour (Imdur) TAKE 1 TABLET BY MOUTH EVERY MORNING 90 Tablet 3 05/12/2023 Active Levothyroxine Sodium 75 MCG Oral Tablet (Levoxyl)Indications :Acquired hypothyroidism TAKE 1 TABLET BY MOUTH EVERY MORNING AT LEAST 30 MINUTES PRIOR TO BREAKFAST OR OTHER MEDICATIONS 90 Tablet 3 08/01/2023 Active Januvia 50 MG Oral TabletIndications:Ty pe 2 diabetes mellitus with stage 3 chronic kidney disease, without long-term current use of insulin, unspecified whether stage 3a or 3b CKD (HCC) TAKE ONE TABLET BY MOUTH EVERY MORNING 90 Tablet 1 08/02/2023 Active Rosuvastatin Calcium 20 MG Oral Tablet (Crestor) TAKE 1 TABLET BY MOUTH ONCE DAILY 90 Tablet 0 08/05/2023 Active Warfarin Sodium 5 MG Oral Tablet (Jantoven)Indication s:Persistent atrial fibrillation (HCC) Take 1/2 to 1 tablet by mouth daily as directed by [facility] 90 Tablet 1 08/23/2023 Active documented as of this encounter (statuses as of 09/05/2023) Active Problems Problem Noted Date Diagnosed Date Nocturnal hypoxemia 12/08/2022 Permanent atrial fibrillation 11/24/2021 Stage 3b chronic kidney disease 11/24/2021 CKD (chronic kidney disease) stage 4, GFR 15-29 ml/min 11/24/2021 Chronic right-sided heart failure 11/05/2020 Acute diastolic HF (heart failure) 10/14/2020 Thrombocytopenia, unspecified 10/14/2020 Type 2 diabetes mellitus wit h stage 3 chronic kidney disease, without long-term current use of insulin 10/14/2020 Longstanding persistent atrial fibrillation 02/2021 Hypertensive heart and kidne y disease with chronic diastolic congestive heart failure and stage 3 chronic kidney disease 10/29/2019 Hyperparathyroidism, secondary renal 10/29/2019 Paroxysmal atrial fibrillation 10/29/2019 COPD, group B, by GOLD 2017 classification 03/19 Overview: Per COPD GOLD Classification DAIN (obstructive sleep apnea) 03/07/2019 Pulmonary HTN 03/07/2019 Sensorineural hearing loss (SNHL) of right ear 1 10/22/2017 Hyperkalemia 07/14/2018 Hypertensive heart disease w ith diastolic heart failure and stage 3 chronic kidney disease 05/16/2018 Acquired hypothyroidism 05/16/2018 Moderate mitral regurgitation by prior echocardi ogram 10/18/2017 long term care social worker 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 therapy 0 10/18/2017 Overview: ICD-10 update of inactive term Cardiac pacemaker in situ 06/23/2017 Essential hypertension with goal blood pressure less than 140/90 08/02/2016 Type 2 diabetes mellitus wit h diabetic chronic kidney disease 08/16/2015 Heart failure, diastolic, due to HTN 12/30/2014 Type 2 diabetes mellitus wit h hemoglobin A1c goal of less than 8.0% 05/21/2014 Overview: ICD-10 update of inactive term Atrial fibrillation 03/05/2011 Anticoagulation management encounter 03/05/2011 DYSLIPIDEMIA, GOAL LDL BELOW 100 09/18/2009 Overview: Per Lipid Taxonomy. ADVANCE DIRECTIVE INFORMATION 06/17/2005 Overview: Yes, Patient instructed to provide copy of advance directive for provider to review and to be scanned into Electronic Medical Record documented as of this encounter (statuses as of 09/05/2023) Resolved Problems Problem Noted Date Diagnosed Date Resolved Date Coronary artery disease invo lving [place] heart without angina pectoris 04/18/2019 10/29/2019 Chronic hypoxemic respiratory failure 08/22/2018 04/22/2022 Kidney disease, chronic, sta ge IV (GFR 15-29 ml/min) 07/14/2018 07/24/2018 COPD, moderate 04/03/2015 03/21/2019 Overview: Per COPD GOLD Classification COPD exacerbation 10/30/2014 04/13/2017 Type 2 diabetes mellitus wit h hemoglobin A1c goal of 7.0%-8.0% 03/04/2014 05/21/2014 Overview: ICD-10 update of inactive term DM type 2 causing CKD stage 3 03/28/2013 08/16/2015 Type 2 diabetes mellitus wit h hemoglobin A1c goal of less than 7.0% 03/28/2013 03/04/2014 Overview: ICD-10 update of inactive term Type 2 diabetes mellitus wit h hemoglobin A1c goal of 7.0%-8.0% 09/27/2012 03/28/2013 Overview: ICD-10 update of inactive term Kidney disease, chronic, sta ge III (GFR 30-59 ml/min) 02/28/2012 08/29/2018 Overview: Per CKD protocol #1 long term care social worker current use of 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 therapy 03/05/2011 02/13/2019 Asthma with severity to be determined 04/02/2010 03/20/2013 Overview: Per Asthma Taxonomy ICD-10 update of inactive term Asthma, mild persistent 04/02/201002/2017 Overview: PER PROVIDER PROTOCOL. Obesity, morbid (more than 1 00 lbs over ideal weight or BMI > 40) 01/06/2010 08/23/2018 Overview: Per Obesity Taxonomy ICD-10 update of inactive term HTN, goal below 130/80 11/05/200908/02 Overview: Per HTN Taxonomy. Type 2 diabetes mellitus wit h hemoglobin A1c goal of less than 7.0% 08/07/2009 09/27/2012 Overview: Per Diabetes Taxonomy. ICD-10 update of inactive term HTN, goal below 140/90 02/06/200811/05 Overview: Per HTN Taxonomy. Type 2 diabetes mellitus wit h hemoglobin A1c goal of less than 7.0% 05/09/2006 08/07/2009 Overview: Per Diabetes Taxonomy. ICD-10 update of inactive term PURE HYPERCHOLESTEROLEM 11/30/200209/09 Overview: Per Lipid Taxonomy. Paroxysmal SVT (supraventricular tachycardia) 11/30/19 03 02/13/2019 HYPOTHYROIDISM NOS 11/30/2002 6 CARDIOVAS SYS SYMP NEC-carotid bruit 11/30/2002 04/13/2017 OBESITY, UNSPECIFIED 11/30/2002 010 Overview: Per Obesity Taxonomy Asthma, allergic 04/02/2010 CPAP (continuous positive ai rway pressure) dependence 03/07/2019 Overview: setting 4 documented as of this encounter (statuses as of 09/05/2023) Immunizations Name Administration Dates Next Due COVID-19 mRNA, LNP-s, No Pre serve, 2-Dose Series (Moderna) 12/09/2020,11/11/2020 COVID-19, mRNA, LNP-s, PF, B ooster, 100mcg/0.5mg (Moderna) 09/23/2021 H1N1 2009 Influenza, IM 11/18/2009 Pneumococcal Conjugate Vacc, 13 Valent (Prevnar) 12/17/2015 Pneumococcal Conjugate Vacci ne, 7 Valent 10/13/2001 Pneumococcal Polysaccharide PPV23 (Pneumovax) 02/16/2010 SEASONAL INFLUENZA, PF, 6 M & Above, IM , (FLULAVAL or FLUZONE) 07/21/2018 Season Influenza, Quad, PF, Adjuvanted, 65+ Yrs, IM (FLUAD) 09/01/2020 Seasonal Influenza, Quadriva lent Hd (Fluzone Hd) 07/25/2023,06/30/2022,07/02/2021 Seasonal Influenza, Quadriva lent, No Preserve, IM 08/08/2015 Seasonal Influenza, Split, I IV3, With Preserve, Inj 07/14/2016,07/17/2014,07/03/2013,08/09,07/07/2011,07/14/2010,07/15/2009 ,07/24/2008,07/12/2007,07/15/2006 Seasonal Influenza, Trivalen t, Adjuvanted, 65+ yrs 08/08/2019 Seasonal Influenza, Trivalen t, High Dose, No Preserve, IM 07/01/2017 TDAP (age 10 and older)(Boostrix) 09/02/2014 documented as of this encounter Social History Tobacco Use Types Packs/Day Years Used Date Smoking Tobacco: Never Passive Smoke Exposure: Past Smokeless Tobacco: Never Alcohol Use Standard Drinks/Week Comments Yes 0 (1 standard drink = 0.6 oz pur e alcohol) occasional PHQ-2 Answer Date Recorded PHQ Adult Total Score 0 05/25/2022 Hunger Vital Sign Answer Date Recorded Within the past 12 months, y ou worried that your food would run out before you got the money to buy more. Never true 04/16/20 21 Within the past 12 months, t he food you bought just didn't last and you didn't have money to get more. Never true 04/16/2021 Sex and Gender Information Value Date Recorded Sex Assigned at Female 02/14/2023 2:15 PM EDT Gender Identity Female 02/14/2023 2:15 PM EDT Sexual Orientation Straight 02/14/2023 2: 15 PM EDT Job Start Date Occupation Industry Not on file Not on file Not on file documented as of this encounter Progress Notes * Remy Gonzáles RPh - 09/05/2023 2:03 PM EST Medication Therapy Disease Management - Anticoagulation Tori May 1935 Description Pt takes dose in AM Patient Findings Negatives: Signs/symptoms of thrombosis, Signs/symptoms of bleeding, Change in health, Change in alcohol use, Change in activity, Upcoming invasive procedure, Missed doses, Extra doses, Change in medications, Change in diet/appetite, Bruising INR Result As of 09/05/2023 INR goal: 2.0-3.0 INR used for dosin.0 (09/05/2023) Warfarin Plan As of 09/05/2023 Full warfarin instructions: 2.5 mg every Mon, Fri; 5 mg all other days No change documented: Remy Gonzáles RPh Next INR check: 10/17/2023 Repeat PT/INR in 6 week(s) Weekly dose: not changed Remy Monteiro RPh, CACP, CDE Clinical Pharmacist [facility] 09/05/2023 2:07 PM documented in this encounter Miscellaneous Notes * Addendum Note - Remy Gonzáles RPh - 09/05/2023 2:08 PM ESTAddended by: REMY MONTEIRO V on: 09/05/2023 02:08 PM Modules accepted: Level of Service documented in this encounter Plan of Treatment Upcoming Encounters Date Type Department Care Team (Late st Contact Info) Description 10/17/2023 2:20 PM EST Anticoagulation Pharmacy, [facility] [address] [place] [address] Pharmacist1, [facility] [address] [place] [address] 11/08/2023 10:40 AM EST Office Visit Podiatry [facility] [address] [place] [address] Bryanna Guzman DPM [address] [place] [address] 11/09/2023 3:00 PM EST Office Visit Sleep Disorders Ctr [facility] [address] [facility] [place] [phone] Tess Valdez, DO [address] [place] [address] 11/11/2023 3:00 PM EST Office Visit Family Practice [facility] [address] [place] [address] Chad Phoenix, DO [address] [facility] [place] [address] 12/16/2023 11:00 AM EST Cardiac Studies Cardiology, [facility] [address] [facility] [place] [address] [facility] [address] [facility] [place] [address] 05/04/2024 3:00 PM EDT Office Visit Nephrology, [facility] [address] [place] [address] Eddie Suh MD [address] [place] [address] Health Maintenance Due Date Last Done Comments Alpha-1 Antitrypsin 1953 Zoster Vaccines (1 of 2) 1985 Hepatitis B (1 of 3 - Risk 3-dose series) 1995 Depression Screening 05/25/2023 05/25/2022 COVID-19 Vaccine ( season) 2023 09/23/2021, 12/09/2020, 11/11/2020 HbA1c 10/05/2023 04/05/2023, 10/10, 11/18/2021, Additional history exists Albumin/Creatinine Ratio 10/26/2023 023, 12/08/2021, 02/26/2019, Additional history exists Diabetic Foot Exam 10/26/2023 10/26/2022, 0 11/24/2021, 02/12/2021, Additional history exists TSH 04/05/2024 04/05/2023, 07/0 03/2022, 04/08/2022, Additional history exists O2 ASSESSMENT COMPLETED IN PAST YEAR FOR COPD 04/11/2024 04/11/2023 Diabetic Eye Exam 06/06/2024 06/06/2023, , 12/06/2022, Additional history exists DTaP,Tdap,and Td Vaccines (2 - Td or Tdap) 09/02/2024 09/02/2014 Pneumococcal Vaccine: 65+ Years Completed 12/17/2015, 02/16/2010 Influenza Vaccine (FLU shot) Completed , 06/30/2022, 07/02/2021, Additional history exists GARDASIL-HPV IMMUNIZATION SERIES Aged Out No longer eligible based on patient's age to complete this topic MENINGOCOCCAL (MENACTRA/MENVEO) Aged Out No longer eligible based on patient's age to complete this topic documented as of this encounter Medical Devices Not on filedocumented as of this encounter Procedures Procedure Name Priority Date/Time Associated Diagnosis Comments INR FINGERSTICK, POINT OF CARE STAT 09/05/2023 2:05 PM EST Paroxysmal atrial fibrillation (HCC) Anticoagulation management encounter long term care social worker 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 therapy documented in this encounter Results * INR FINGERSTICK, POINT OF CARE (09/05/2023 2:05 PM EST) Fingerstick INR 2.0 INR 2:07 PM EST [facility] 56-02 Blood 09/05/2023 2:05 PM EST 09/05/2023 2:07 PM EST Narrative [facility] 56-02 - 09/05/2023 2:07 PM EST Therapeutic ranges for non-operative patients: Prophylaxsis/treatment of DVT: (Range:2.0-3.0) Treatment of pulmonary embolism:(Range:2.0-3.0) Prevention of systemic embolism from: -tissue heart valves -acute myocardial infarction -valvular heart disease -atrial fibrillation (Range: 2.0-3.0) Mechanical prosthetic valves: (Range: 2.5-3.5) Remy Nikolai V, RPh LAB POINT OF CARE TE ST DOCKED DEVICE UNSOLICITED RESULTS [facility] 56-02 [address] [facility] [place] [address] documented in this encounter Visit Diagnoses Diagnosis Atrial fibrillation, unspecified type (HCC)- Primary Paroxysmal atrial fibrillation (HCC) Atrial fibrillation Anticoagulation management encounter Encounter for therapeutic drug monitoring long term care social worker 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 therapy documented in this encounter Advance Directives Latest Code Status on File Code Status Date Activated Date Inactivated Comments Full Code 02/21/2015 7:41 AM 02/21/2015 2:10 PM This order reflects the patients wishes and were consensually agreed upon. Question Answer Comments Discussion of Advance Directives occurred with: Not Discussed Care Teams Database Development Project Manager Relationship Specialty Start Date End Date Chad Phoenix DO [address] [facility] [place] [address] PCP - General Family Medicine 06/02/18 documented as of this encounter
--- OUTSIDE RECORDS SUMMARY | 2023-09-13 22:04 | External Medical Summary | Summary of Care ---
Author Name Unknown Organization [facility] Address [address] [facility] [place] [address] Phone [phone] Care Team Providers Care Dogger Name Role Phone JorgitoChad hager Primary Care Provider [phone] Reason for Visit * Reason Comments Dosage Adjustment In Person (Anticoag Cl inic) Encounter Details Date Type Department Care Team (Latest Contact Info) Description 09/05/2023 2:20 PM EST Anticoagulation Pharmacy, [facility] [address] [place] [address] Pharmacist1, [facility] [address] [facility] [place] [address] Atrial fibrillation, unspecified type (HCC)*; Paroxysmal atrial fibrillation (HCC); Anticoagulation management encounter; halfway 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 therapy Allergies Active [...] ns:COPD, group B, by GOLD 2017 classification ([facility]) Inhale 1 Vial via nebulizer every 4 hours as needed for Wheezing or Shortness of Breath. 90 mL 3 10/20/2022 Active Furosemide 40 MG Oral Tablet (Lasix)Indications:H eart failure, diastolic, due to HTN ([facility]) Take 1 Tablet by mouth in the [...] 0 12/20/2022 Active Vitamin D3 1.25 MG (76771 UT) Oral Capsule TAKE 1 CAPSULE BY [...] morning. 90 Tablet 3 02/14/2023 Active Nystatin 594267 UNIT/GM External Powder (Nystop) Apply topically to [...] tablet by mouth daily as directed by [facility] 90 Tablet 1 08/23/2023 Active [...] mitral regurgitation by prior echocardi ogram 10/18/2017 terminal gauger 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 therapy 0 10/18/2017 [...] Resolved Date Coronary artery disease invo lving [place] heart without angina pectoris 04/18/2019 10/29/2019 Chronic [...] 02/28/2012 08/29/2018 Overview: Per CKD protocol #1 terminal gauger current use of 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 therapy 03/05/2011 [...] Description 10/17/2023 2:20 PM EST Anticoagulation Pharmacy, [facility] [address] [place] [address] Pharmacist1, [facility] [address] [place] [address] 11/08/2023 10:40 AM EST Office Visit Podiatry [facility] [address] [place] [address] Bryanna Guzman DPM [address] [place] [address] 11/09/2023 3:00 PM EST Office Visit Sleep Disorders Ctr [facility] [address] [facility] [place] [phone] Tess Valdez, DO [address] [place] [address] 11/11/2023 3:00 PM EST Office Visit Family Practice [facility] [address] [place] [address] Chad Phoenix, DO [address] [facility] [place] [address] 12/16/2023 11:00 AM EST Cardiac Studies Cardiology, [facility] [address] [facility] [place] [address] [facility] [address] [facility] [place] [address] 05/04/2024 3:00 PM EDT Office Visit Nephrology, [facility] [address] [place] [address] Eddie Suh MD [address] [place] [address] Health Maintenance Due Date Last Done Comments [...] Paroxysmal atrial fibrillation (HCC) Anticoagulation management encounter terminal gauger 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 therapy documented in this encounter Results * INR FINGERSTICK, POINT OF CARE (09/05/2023 2:05 PM EST) Fingerstick INR 2.0 INR 2:07 PM EST [facility] 56-02 Blood 09/05/2023 2:05 PM EST 09/05/2023 2:07 PM EST Narrative [facility] 56-02 - 09/05/2023 2:07 PM EST Therapeutic ranges for non-operative patients: Prophylaxsis/treatment of DVT: (Range:2.0-3.0) Treatment of pulmonary embolism:(Range:2.0-3.0) Prevention of systemic embolism from: -tissue heart valves -acute myocardial infarction -valvular heart disease -atrial fibrillation (Range: 2.0-3.0) Mechanical prosthetic valves: (Range: 2.5-3.5) Remy Nikolai V, RPh LAB POINT OF CARE TE ST DOCKED DEVICE UNSOLICITED RESULTS [facility] 56-[address] [place] [place] [address] documented in this encounter Visit Diagnoses Diagnosis Atrial fibrillation, unspecified type (HCC)- Primary Paroxysmal atrial fibrillation (HCC) Atrial fibrillation Anticoagulation management encounter Encounter for therapeutic drug monitoring terminal gauger 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 therapy documented in this encounter Advance Directives Latest Code Status on File Code Status Date Activated Date Inactivated Comments Full Code 02/21/2015 7:41 AM 02/21/2015 2:10 PM This order reflects the patients wishes and were consensually agreed upon. Question Answer Comments Discussion of Advance Directives occurred with: Not Discussed Care Teams Dogger Relationship Specialty Start Date End Date Chad Phoenix DO [address] [facility] [place] [address] PCP - General Family Medicine 06/02/18 documented as of this encounter
--- OUTSIDE RECORDS SUMMARY | 2023-09-13 22:05 | External Medical Summary | Summary of Care ---
Author Name Unknown Organization [facility] Address [address] [facility] [place] [address] Phone [phone] Care Team Providers Care Soda Drier Feeder Name Role Phone Chad Phoenix DO Primary Care Provider [phone] Reason for Visit * Reason Comments Diabetic Foot Care * Evaluate & Treat - Unlimited Visits (Within 30 days (routine)) - Authorized Specialty Diagnoses / Procedures Referred By Ga huddleston Referred To Contact Podiatry Diagnoses Type 2 diabetes mellitus with hemoglobin A1c goal of less than 8.0% (HCC) Chad Phoenix DO [address] [place] [address] Referral ID Status Reason Start Date Expiration Date Visits Requested Visits Authorized [id number] Authorized Specialty Services Required [phone] Encounter Details Date Type Department Care Team (Late st Contact Info) Description 08/09/2023 9:20 AM EDT Office Visit Podiatry [facility] [address] [place] [place] [address] Bryanna Guzman DPM [address] [place] [address] Onychomycosis*; Type 2 diabetes mellitus with stage 3 chronic kidney disease, without long-term current use of insulin, unspecified whether stage 3a or 3b CKD (HCC); Stage 3 chronic kidney disease, unspecified whether stage 3a or 3b CKD (HCC); Pain in toes of both feet; Type 2 diabetes mellitus with hemoglobin A1c goal of less than 8.0% ([facility]) [E11.9] Allergies Active Allergy Reactions Criticality Noted Date Comments Glipizide 02/18/2021 Dizzy, confusion Penicillins Rash 10/13/2001 documented as of this encounter (statuses as of 08/09/2023) Medications Medication Sig Dispensed Refills Start Date [...] 4 hours as needed for Pain. Per NVR dc summary 06/26/18 0 Active triamcinolone acetonide (ARISTOCORT) 0.1 % ointmentIndications: Eczema of right external ear Apply topically to affected area 2 times a day. To affected area on R external ear 60 g 0 04/06/2019 Active OneTouch Verio In Vitro Strip (Glucose Blood) test once daily Dx. E11.9 100 Strip 3 05/04/2021 Active Warfarin Sodium 5 MG Oral Tablet (Jantoven)Indication s:Persistent atrial fibrillation (HCC) take 1/2 a tablet TO 1 tablet daily or as directed 90 Tablet 3 08/20/2022 Active Albuterol Sulfate (2.5 MG/3ML) 0.083% Inhalation Nebulization Solution (Proventil)Indicatio ns:COPD, group B, by GOLD 2017 classification ([facility]) Inhale 1 Vial via nebulizer every 4 hours as needed for Wheezing or Shortness of Breath. 90 mL 3 10/20/2022 Active Furosemide 40 MG Oral Tablet (Lasix)Indications:H eart failure, diastolic, due to HTN ([facility]) Take 1 Tablet by mouth in [...] 0 12/20/2022 Active Vitamin D3 1.25 MG (00720 UT) Oral Capsule TAKE 1 CAPSULE BY [...] morning. 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 [place] heart without angina pectoris 04/18/2019 10/29/2019 Chronic [...] 02/28/2012 08/29/2018 Overview: Per CKD protocol #1 halfway current use of 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 therapy 03/05/2011 [...] as of this encounter (statuses as of 08/09/2023) Immunizations Name Administration Dates Next Due COVID-19 mRNA, LNP-s, No Pre serve, 2-Dose Series (Moderna) 12/09/2020,11/11/2020 COVID-19, mRNA, LNP-s, PF, B ooster, 100mcg/0.5mg (Moderna) 09/23/2021 H1N1 2009 Influenza, IM 11/18/2009 Pneumococcal Conjugate Vacc, 13 Valent (Prevnar) 12/17/2015 Pneumococcal Polysaccharide PPV23 (Pneumovax) 02/16/2010 SEASONAL INFLUENZA, [...] as of this encounter Progress Notes * Bryanna Guzman DPM - 08/09/2023 9:29 AM EDT [facility] Name[facility] Tori May : 1935 Date: 08/09/2023 CHIEF COMPLAINT: Diabetic Nail Care HISTORY OF PRESENT ILLNESS: This patient is a 88 year old female who presents today for diabetic nail care. Pt denies any pain to her feet and states she gets occasional numbness/tingling. She statesher BS is under control, but doesn't check it regularly. She presents today with daughter. She fears she will cut herself from the thickness of her nails. She denies any other complaints at todays visit. She denies any other recent changes in her medical history. Date of last PCP visit: 04/11/2023 Past Medical History: Diagnosis Date Asthma, allergic Atrial fibrillation (HCC) 03/05/2011 Cardiac pacemaker in situ 06/23/2017 CARDIOVAS SYS SYMP NEC-carotid bruit 11/30/2002 CPAP (continuous positive airway pressure) dependence setting 4 DM type 2, goal A1C 7-8 03/04/2014 Dyslipidemia, goal LDL below 160 Gastric ulcer Heart failure, diastolic, due to HTN (HCC) 12/30/2014 Hypertensive heart disease with diastolic heart failure and stage 3 chronic kidney disease (HCC) 05/16/2018 Hypothyroidism clinically euthyroid KIDNEY DISEASE, CHRONIC, STAGE III (GFR 30-59 ML/MIN) 02/28/2012 Per CKD protocol #1 halfway 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 therapy 10/18/2017 ICD-10 update of inactive term Moderate mitral regurgitation by prior echocardiogram 10/18/2017 Obesity, BMI not known 11/30/2002 Paroxysmal SVT (supraventricular tachycardia) ([facility]) 11/30/2002 Paroxysmal SVT (supraventricular tachycardia) ([facility]) 11/30/2002 Tachycardia associated with angina Past Surgical History: Procedure Laterality Date ABLATE HEART DYSRHYTHM FOCUS 03/27/2010 CATHETER ABLATION-SVT performed by NATASHA NAM at [facility] ARTHROPLASTY KNEE TOTAL B/LTKR (Total Knee Replacement) COLONOSCOPY, DIAGNOSTIC (RECTUM) 10/07/2020 Multiple proximal colon AVM's, diverticulosis / [facility] EGD, FLEXIBLE, DIAGNOSTIC 10/07/2020 benign gastric polyp, hiatal hernia / [facility] EGD, W/ENDOSCOPIC US N/A 02/21/2015 serous pancreatic cyst. fatty liver/ESOPHAGOGASTRODUODENOSCOPY (EGD), FLEXIBLE, TRANSORAL, ENDOSCOPIC ULTRASOUND performed by Larry Daugherty DO at OR [facility] BRONCHOSCOPY TRANSBRONCHIAL NEEDLE ASPIRATION BIOPSY WNL HEMILAMINECTOMY, CERVICAL/LUMBAR, EA. ADD'L MAMMOGRAM - BILATERAL 07/02/2002 birad code 2 MAMMOGRAM SCREENING-BILATERAL 07/03/2007 Birad 2, Yearly mammograms would be appropriate OUTSIDE LAB-BRONCHIAL WASHING CULTURE 12/14/2013 No malignancies REMOVAL OF APPENDIX REMOVAL OF OVARY/OVIDUCT(S) right REMOVAL OF TONSILS, UNDER AGE 12 Tonsillectomy,<12 Y/O REMOVE MASTOID STRUCTURES, COMPLETE REPAIR INITIAL INGUINAL HERNIA REDUCIBLE AGE 5 OR MORE SURGICAL PROCEDURE ONLY Left 03/08/2023 excision left breast mass by Dr. Linda Daugherty Family History Problem Relation Age of Onset Mental Disorder Mother dementia Cancer Mother breast Social History Socioeconomic History Marital status: Spouse name: Rusty Number of children: 3 Years of education: 16 Highest education level: Not on file Social Needs Financial resource strain: Not on file Food insecurity - worry: Not on file Food insecurity - inability: Not on file Transportation needs - medical: Not on file Transportation needs - non-medical: Not on file Occupational History Occupation: retired Tobacco Use Smoking status: Never Smoker Smokeless tobacco: Never Used Substance and Sexual Activity Alcohol use: Yes Comment: occasional Drug use: No Sexual activity: Yes Partners: Male Other Topics Concern Service Not Asked Blood Transfusions Yes Caffeine Concern Not Asked Occupational Exposure Not Asked Hobby Hazards Not Asked Sleep Concern Not Asked Stress Concern Not Asked Weight Concern Not Asked Special Diet Not Asked Back Care Not Asked Exercise Not Asked Bike Helmet Not Asked Seat Belt Yes Self-Exams Not Asked Social History Narrative Not on file Current Outpatient Medications Medication Sig Dispense Refill NEBULIZER MISC use every 8 hrs as directed 1 Units 0 SPACER/AERO CHAMBER MOUTHPIECE MISC use with inhalers as instructed 1 Device 2 MAGNESIUM OXIDE 400 MG PO TABS one tablet by mouth twice daily ONETOUCH ULTRASOFT LANCETS MISC Test up to 4 times daily 5 Box Dosing Unit 10 acetaminophen (TYLENOL) 500 MG Tablet Take 1 Tablet by mouth every 4 hours as needed for Pain. Per [facility] dc summary 06/26/18 triamcinolone acetonide (ARISTOCORT) 0.1 % ointment Apply topically to affected area 2 times a day.To affected area on R external ear 60 g 0 OneTouch Verio In Vitro Strip (Glucose Blood) test once daily Dx. E11.9 100 Strip 3 Warfarin Sodium 5 MG Oral Tablet (Jantoven) take 1/2 a tablet TO 1 tablet daily or as directed 90 Tablet 3 Albuterol Sulfate (2.5 MG/3ML) 0.083% Inhalation Nebulization Solution (Proventil) Inhale 1 Vial via nebulizer every 4 hours as needed for Wheezing or Shortness of Breath. 90 mL 3 Furosemide 40 MG Oral Tablet (Lasix) Take 1 Tablet by mouth in the morning and 1 Tablet before bedtime. TAKE 1 TABLET BY MOUTH TWICE DAILY. 180 Tablet 3 Pantoprazole Sodium 40 MG Oral Tablet Delayed Release (Protonix) TAKE 1 TABLET BY MOUTH ONCE DAILY 90 Tablet 3 oxygen IN GAS Increase to 3 LPM bled through CPAP with all sleep. T and B medical 1 Each 0 Vitamin D3 1.25 MG (99163 UT) Oral Capsule TAKE 1 CAPSULE BY MOUTH ONCE WEEKLY 12 Capsule 0 dilTIAZem HCl ER 240 MG Oral Capsule Extended Release 24 Hour TAKE 1 CAPSULE BY MOUTH ONCE DAILY 90Capsule 3 Montelukast Sodium 10 MG Oral Tablet (Singulair) Take 1 Tablet by mouth in the morning. 90 Tablet 3 Nystatin 771734 UNIT/GM External Powder (Nystop) Apply topically to affected area 3 times a day. Apply to underside of L breast 15 g 3 Metoprolol Succinate ER 100 MG Oral Tablet Extended Release 24 Hour (toPROL XL) TAKE 1 TABLET BY MOUTH TWICE DAILY 180 Tablet 3 Isosorbide Mononitrate ER 30 MG Oral Tablet Extended Release 24 Hour (Imdur) TAKE 1 TABLET BY MOUTHEVERY MORNING 90 Tablet 3 Levothyroxine Sodium 75 MCG Oral Tablet (Levoxyl) TAKE 1 TABLET BY MOUTH EVERY MORNING AT LEAST 30 MINUTES PRIOR TO BREAKFAST OR OTHER MEDICATIONS 90 Tablet 3 Januvia 50 MG Oral Tablet TAKE ONE TABLET BY MOUTH EVERY MORNING 90 Tablet 1 Rosuvastatin Calcium 20 MG Oral Tablet (Crestor) TAKE 1 TABLET BY MOUTH ONCE DAILY 90 Tablet 0 No current facility-administered medications for this visit. ALLERGIES: Review of patient's allergies indicates: Allergen Reactions Glipizide Dizzy, confusion Penicillins Rash REVIEW OF SYSTEMS: CONSTITUTIONAL: No change in weight, No weakness, No fatigue and No fevers, sweats, or chills EYE: No recent significant change in vision and No eye pain, redness, discharge EARS: No ear pain and No recent change in hearing NOSE: No history of frequent colds or sinusitis and No nasal stuffiness PULMONARY: No cough, sputum, or hemoptysis and No recent change in breathing CARDIOVASCULAR: No chest pain and No syncope EXTREMITIES: No pain, redness or swelling on the joints SKIN/INTEGUMENTARY: No edema, No rash and No itching NEUROLOGIC: Normal balance, No headaches, No seizures and No weakness PSYCHIATRIC: No depression, No anxiety and No psychosis FOCUSED PODIATRIC EXAM: Vitals: There were no vitals filed for this visit. General: Patient is awake alert oriented to person place time. No apparent distress. Vascular: DP/PT pulses palpable, janee. CFT < 3 sec 1-5, janee. Edema noted, janee. Temperature gradient is normal warm to cold, janee. Varicosities noted, janee. Neurologic: Protective sensation intact to light touch, janee. Sensation to sharp/dull is intact, janee. Proprioception is intact, janee. Vibratory sensation intact, janee. Protective sensation to 5.07 monofilament is intact, janee. There is no babinski response elicited, janee. Ankle clonus is absent, janee. Paresthesia noted. Dermatological: Skin is atrophic in appearance with no open lesions or interdigital macerations, janee. Nails 1-5, janee are elongated and thickened. Pedal hair is absent, janee. Musculoskeletal: POP noted to toes, janee. No pain with active or passive ROM of the digits or ankle joint, janee. Muscle strength is 5/5 for all muscle groups of the lower extremity, janee. DIAGNOSTIC STUDIES: None Class Findings for Routine Foot Care Class A Findings: None Class B Findings: Advanced trophic changes (at least three of the following): hair growth (decreaseor absence), nail changes (thickening) and skin texture (thin, shiny) Class C Findings: Edema and Paresthesia (abnormal spontaneous sensations in feet) Modifier: Q9 - 1 Class B Finding and 2 Class C Findings ASSESSMENT: 1. DM2 2. Onychomycosis 3. Pain in toes, janee PLAN: - Discussed with pt the importance of maintaining a controlled blood sugar and checking her feet daily. - Nails 1-5, janee were sharply trimmed with a nail nipper and mechanical bur to appropriate level without incident. - Continue wearing good, supportive shoes. - Pt to RTC in 3 months for further care. Instructed pt to call sooner with any problems or questions. Bryanna Guzman DPM documented in this encounter Nursing Notes * Melissa Diaz LPN - 08/09/2023 9:05 AM EDT Pt presents for routine diabetic nail care, no pain in feet. Does not test BSG. documented in this encounter Plan of Treatment Upcoming Encounters Date Type Department Care Team (Late st Contact Info) Description 09/05/2023 2:20 PM EST Anticoagulation Pharmacy, [facility] [address] [place] [address] Pharmacist1, [facility] [address] [place] [address] 11/09/2023 3:00 PM EST Office Visit Sleep Disorders Ctr [facility] [address] [facility] [place] [phone] Tess Valdez, [address] [facility] [place] [address] 11/11/2023 3:00 PM EST Office Visit Family Practice [facility] [address] [place] [address] Chad Phoenix, DO [address] [place] [address] 12/16/2023 11:00 AM EST Cardiac Studies Cardiology, [facility] [address] [facility] [place] [address] [facility] [address] [facility] [place] [address] 05/04/2024 3:00 PM EDT Office Visit Nephrology, [facility] [address] [place] [address] Eddie Suh MD [address] [place] [address] Scheduled Referrals Name Type Priority Associated Diagnoses Orde r Schedule PODIATRY REFERRAL OP Referral Within 30 days (routine) Type 2 diabetes mellitus with hemoglobin A1c goal of less than 8.0% (HCC) Ordered: 07/29/2023 Health Maintenance Due Date Last Done Comments Alpha-1 Antitrypsin 1953 Zoster Vaccines (1 of 2) 1985 Hepatitis B (1 of 3 - Risk 3-dose series) 1995 Diabetic Eye Exam 01/11/2023 01/11/2022, , 12/17/2019, Additional history exists Depression Screening 05/25/2023 05/25/2022 COVID-19 Vaccine ( season) 2023 09/23/2021, 12/09/2020, 11/11/2020 HbA1c 10/05/2023 04/05/2023, 10/10, 11/18/2021, Additional history exists Albumin/Creatinine Ratio 10/26/2023 023, 12/08/2021, 02/26/2019, Additional history exists Diabetic Foot Exam 10/26/2023 10/26/2022, 0 11/24/2021, 02/12/2021, Additional history exists TSH 04/05/2024 04/05/2023, 07/0 03/2022, 04/08/2022, Additional history exists O2 ASSESSMENT COMPLETED IN PAST YEAR FOR COPD 04/11/2024 04/11/2023 DTaP,Tdap,and Td Vaccines (2 - Td or [...] Not on filedocumented as of this encounter Visit Diagnoses Diagnosis Onychomycosis- Primary Dermatophytosis of nail Type 2 diabetes mellitus with stage 3 chronic kidney disease, without long-term current use of insulin, unspecified whether stage 3a or 3b CKD (HCC) Stage 3 chronic kidney disease, unspecified whether stage 3a or 3b CKD (HCC) Pain in toes of both feet documented in this encounter Advance Directives Latest Code Status on File Code Status Date Activated Date Inactivated Comments Full Code 02/21/2015 7:41 AM 02/21/2015 2:10 PM This order reflects the patients wishes and were consensually agreed upon. Question Answer Comments Discussion of Advance Directives occurred with: Not Discussed Care Teams Soda Drier Feeder Relationship Specialty Start Date End Date Chad Phoenix DO [address] [place] [address] PCP - General Family Medicine 06/02/18 documented as of this encounter
--- OUTSIDE RECORDS SUMMARY | 2023-09-13 22:05 | External Medical Summary | Summary of Care ---
Author Name Unknown Organization [facility] Address [address] [facility] [address] Phone [phone] Care Team Providers Care Child Care Centre Director Name Role Phone Chad Phoenix DO Primary Care Provider [phone] Reason for Visit * Reason Onset Date Comments Advice 08/22/2023 Med question for dental work Encounter Details Date Type Department Care Team (Late st Contact Info) Description 08/22/2023 Telephone Family Practice [facility] [place] [address] [facility] [place] [address] Chad Phoenix DO [address] [facility] [place] [address] Advice (Med question for dental work) Allergies Active Allergy Reactions Criticality Noted Date Comments Glipizide 02/18/2021 Dizzy, confusion Penicillins Rash 10/13/2001 documented as of this encounter (statuses as of 08/22/2023) Medications Medication Sig Dispensed Refills Start Date [...] ns:COPD, group B, by GOLD 2017 classification ([facility]) Inhale 1 Vial via nebulizer every 4 hours as needed for Wheezing or Shortness of Breath. 90 mL 3 10/20/2022 Active Furosemide 40 MG Oral Tablet (Lasix)Indications:H eart failure, diastolic, due to HTN ([facility]) Take 1 Tablet by mouth in [...] 0 12/20/2022 Active Vitamin D3 1.25 MG (76941 UT) Oral Capsule TAKE 1 CAPSULE BY [...] morning. 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 0 10/18/2017 [...] as of this encounter (statuses as of 08/22/2023) Resolved Problems Problem Noted Date Diagnosed Date Resolved Date Coronary artery disease invo lving [place] heart without angina pectoris 04/18/2019 10/29/2019 Chronic [...] 02/28/2012 08/29/2018 Overview: Per CKD protocol #1 skilled nursing current use of 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 therapy 03/05/2011 [...] as of this encounter (statuses as of 08/22/2023) Immunizations Name Administration Dates Next Due COVID-19 [...] on file documented as of this encounter Miscellaneous Notes * Telephone Encounter - Page Lee LPN - 08/22/2023 4:54 PM EST Patient's daughter called. Informed of message. Verbalized understanding. * Telephone Encounter - Chad Phoenix DO - 08/22/2023 12:46 PM EST With her on coumadin she may have extra bleeding. It is up to the dentist if he is comfortable withthis. * Telephone Encounter - Shayy Mccollum OSA - 08/22/2023 8:37 AM EST Daughter calling, pt is having dental work tomorrow and may need a tooth pulled. Daughter is askingto be advised as to whether she is good to go? She does take medications documented in this encounter Plan of Treatment Upcoming Encounters Date Type Department Care Team (Late st Contact Info) Description 09/05/2023 2:20 PM EST Anticoagulation Pharmacy, [facility] [address] [place] [address] Pharmacist1, [facility] [address] [facility] [place] [address] 11/08/2023 10:40 AM EST Office Visit Podiatry [facility] [address] [address] [place] [address] Bryanna Guzman, DPM [address] [place] [address] 11/09/2023 3:00 PM EST Office Visit Sleep Disorders Ctr [facility] [address] [place] [phone] Tess Valdez, DO [address] [facility] [place] [address] 11/11/2023 3:00 PM EST Office Visit Family Practice [facility] [address] [place] [address] Chad Phoenix, DO [address] [place] [address] 12/16/2023 11:00 AM EST Cardiac Studies Cardiology, [facility] [address] [facility] [place] [address] [facility] [address] [place] [address] 05/04/2024 3:00 PM EDT Office Visit Nephrology, [facility] [address] [place] [address] Eddie Suh MD [address] [place] [address] Health Maintenance Due Date Last Done Comments [...] Not on filedocumented as of this encounter Advance Directives Latest Code Status on File Code Status Date Activated Date Inactivated Comments Full Code 02/21/2015 7:41 AM 02/21/2015 2:10 PM This order reflects the patients wishes and were consensually agreed upon. Question Answer Comments Discussion of Advance Directives occurred with: Not Discussed Care Teams Child Care Centre Director Relationship Specialty Start Date End Date Chad Phoenix DO [address] [place] [address] PCP - General Family Medicine 06/02/18 documented as of this encounter
--- OUTSIDE RECORDS SUMMARY | 2023-09-13 22:05 | External Medical Summary | Summary of Care ---
Author Name Unknown Organization [facility] Address [address] [place] [address] Phone [phone] Care Team Providers Care Menagerie Caretaker Name Role Phone Letitia Posey DO Primary Care Provider [phone] Reason for Visit * Reason Comments eRx-Medication Refill Encounter Details Date Type Department Care Team (Late st Contact Info) Description 08/22/2023 Refill Family Practice [facility] [place] [address] [place] [address] Letitia Posey DO [address] [place] [address] Persistent atrial fibrillation (HCC) Allergies Active Allergy Reactions Criticality Noted Date Comments Glipizide 02/18/2021 Dizzy, confusion Penicillins Rash 10/13/2001 documented as of this encounter (statuses as of 08/23/2023) Medications Medication Sig Dispensed Refills Start Date End Date Status NEBULIZER MISCIndications:Acu te bronchitis, complicated use every 8 hrs as directed 1 Units 0 1 Active SPACER/AERO CHAMBER MOUTHPIECE MISCIndications:Kathrin rtness of breath use with inhalers as instructed 1 Device 2 2 Active MAGNESIUM OXIDE 400 MG PO TABS one tablet by mouth twice daily 0 5 Active ONETOUCH ULTRASOFT LANCETS MISCIndications:DM type 2, goal A1c below 7 Test up to 4 times daily 5 Box Dosing Unit 10 6 Active acetaminophen (TYLENOL) 500 MG Tablet Take 1 Tablet by mouth every 4 hours as needed for Pain. Per [facility] dc summary 06/26/18 0 Active triamcinolone acetonide (ARISTOCORT) 0.1 % ointmentIndications :Eczema of right external ear Apply topically to affected area 2 times a day. To affected area on R external ear 60 g 0 9 Active OneTouch Verio In Vitro Strip (Glucose Blood) test once daily Dx. E11.9 100 Strip 3 1 Active Albuterol Sulfate (2.5 MG/3ML) 0.083% Inhalation Nebulization Solution (Proventil)Indicati ons:COPD, group B, by GOLD 2017 classification ([facility]) Inhale 1 Vial via nebulizer every 4 hours as needed for Wheezing or Shortness of Breath. 90 mL 3 3 Active Furosemide 40 MG Oral Tablet (Lasix)Indications: Heart failure, diastolic, due to HTN ([facility]) Take 1 Tablet by mouth in the morning and 1 Tablet before bedtime. TAKE 1 TABLET BY MOUTH TWICE DAILY. 180 Tablet 3 3 Active Pantoprazole Sodium 40 MG Oral Tablet Delayed Release (Protonix) TAKE 1 TABLET BY MOUTH ONCE DAILY 90 Tablet 3 3 Active oxygen IN GAS Increase to 3 LPM bled through CPAP with all sleep. T and B medical 1 Each 0 3 Active Vitamin D3 1.25 MG (91969 UT) Oral Capsule TAKE 1 CAPSULE BY MOUTH ONCE WEEKLY 12 Capsule 0 3 Active dilTIAZem HCl ER 240 MG Oral Capsule Extended Release 24 HourIndications:Roby gstanding persistent atrial fibrillation (HCC) TAKE 1 CAPSULE BY MOUTH ONCE DAILY 90 Capsule 3 3 Active Montelukast Sodium 10 MG Oral Tablet (Singulair) Take 1 Tablet by mouth in the morning. 90 Tablet 3 3 Active Nystatin 144004 UNIT/GM External Powder (Nystop) Apply topically to affected area 3 times a day. Apply to underside of L breast 15 g 3 3 Active Metoprolol Succinate ER 100 MG Oral Tablet Extended Release 24 Hour (toPROL XL) TAKE 1 TABLET BY MOUTH TWICE DAILY 180 Tablet 3 3 Active Isosorbide Mononitrate ER 30 MG Oral Tablet Extended Release 24 Hour (Imdur) TAKE 1 TABLET BY MOUTH EVERY MORNING 90 Tablet 3 3 Active Levothyroxine Sodium 75 MCG Oral Tablet (Levoxyl)Indication s:Acquired hypothyroidism TAKE 1 TABLET BY MOUTH EVERY MORNING AT LEAST 30 MINUTES PRIOR TO BREAKFAST OR OTHER MEDICATIONS 90 Tablet 3 3 Active Januvia 50 MG Oral TabletIndications:T ype 2 diabetes mellitus with stage 3 chronic kidney disease, without long-term current use of insulin, unspecified whether stage 3a or 3b CKD (HCC) TAKE ONE TABLET BY MOUTH EVERY MORNING 90 Tablet 1 3 Active Rosuvastatin Calcium 20 MG Oral Tablet (Crestor) TAKE 1 TABLET BY MOUTH ONCE DAILY 90 Tablet 0 3 Active Warfarin Sodium 5 MG Oral Tablet (Jantoven)Indicatio ns:Persistent atrial fibrillation (HCC) Take 1/2 to 1 tablet by mouth daily as directed by [facility] 90 Tablet 1 3 Active Warfarin Sodium 5 MG Oral Tablet (Jantoven)Indicatio ns:Persistent atrial fibrillation (HCC) take 1/2 a tablet TO 1 tablet daily or as directed 90 Tablet 3 2 08/23/20 23 Discontinued documented as of this encounter (statuses as of 08/23/2023) Active Problems Problem Noted Date Diagnosed Date [...] mitral regurgitation by prior echocardi ogram 10/18/2017 care home 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 therapy 0 10/18/2017 [...] as of this encounter (statuses as of 08/23/2023) Resolved Problems Problem Noted Date Diagnosed Date Resolved Date Coronary artery disease invo lving [place] heart without angina pectoris 04/18/2019 10/29/2019 Chronic [...] 02/28/2012 08/29/2018 Overview: Per CKD protocol #1 care home current use of 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 therapy 03/05/2011 [...] as of this encounter (statuses as of 08/23/2023) Immunizations Name Administration Dates Next Due COVID-19 [...] money to buy more. Never true 04/16/20 Within the past 12 months, t he [...] encounter Miscellaneous Notes * Telephone Encounter - Lyssa Renee RPh - 08/23/2023 12:21 PM ESTSigned Prescriptions: Disp Refills Warfarin Sodium 5 MG Oral Tablet (Jantoven)90 Tab*1 Sig: Take 1/2 to 1 tablet by mouth daily as directed by [facility] cou[facility] clinicAuthorizing Provider: LETITIA POSEY User: LYSSA RENEE --------- * Telephone Encounter - Lyssa Renee RPh - 08/23/2023 12:20 PM EST Per Most recent [facility] encounter, patient current dose: 2.5 mg every Mon, Fri; 5 mg all other day Protocol met. Refills sent to pharmacy. Thanks, Lyssa Renee Rph, Pharm D. Clinical Pharmacist Centralized Clinical Pharmacy Services (Formerly Telepharmacy)/[facility] [phone] 08/23/2023,12:20 PM documented in this encounter Plan of Treatment Upcoming Encounters Date Type Department Care Team (Late st Contact Info) Description 09/05/2023 2:20 PM EST Anticoagulation Pharmacy, [facility] [place] [address] [place] [address] Pharmacist1, [facility] [address] [place] [address] 11/08/2023 10:40 AM EST Office Visit Podiatry [facility] [address] [place] [address] Bryanna Guzman DPM [address] [place] [address] 11/09/2023 3:00 PM EST Office Visit Sleep Disorders Ctr [facility] [address] [place] [id number] Tess Valdez, DO [address] [place] [address] 11/11/2023 3:00 PM EST Office Visit Family Practice [facility] [address] [place] [address] Letitia Posey, DO [address] [place] [address] 12/16/2023 11:00 AM EST Cardiac Studies Cardiology, [facility] [address] [place] [address] [facility] [address] [facility] [place] [address] 05/04/2024 3:00 PM EDT Office Visit Nephrology, [facility] [address] [place] [address] Eddie Suh MD [address] [place] [address] Health Maintenance Due Date Last Done Comments [...] as of this encounter Visit Diagnoses Diagnosis Persistent atrial fibrillation (HCC) Atrial fibrillation documented in this encounter Advance Directives Latest Code Status on File Code Status Date Activated Date Inactivated Comments Full Code 02/21/2015 7:41 AM 02/21/2015 2:10 PM This order reflects the patients wishes and were consensually agreed upon. Question Answer Comments Discussion of Advance Directives occurred with: Not Discussed Care Teams Menagerie Caretaker Relationship Specialty Start Date End Date Letitia Posey DO [address] [place] [address] PCP - General Family Medicine 06/02/18 documented as of this encounter
--- OUTSIDE RECORDS SUMMARY | 2023-09-13 22:05 | External Medical Summary ---
Author Name Unknown Address Unknown Organization K09:[facility] [address] Laboratory Report Ordering Provider Test Date Status THANIA ALBERTO V 09/05/2023 14:05:44 Final Therapeutic ranges for non-o perative patients:
Prophylaxsis/treatment of DVT: (Range:2.0-3.0)
Treatment of pulmonary embolism:(Range:2.0-3.0)
Prevention of systemic embolism from:
-tissue heart valves
-acute myocardial infarction
-valvular heart disease
-atrial fibrillation
(Range: 2.0-3.0)
Mechanical prosthetic valves: (Range: 2.5-3.5) Observation Date Value Abnormality Reference (Units ) Status INR in Capillary blood by Coagulation assay 09/05/2023 14:05:44 2.0 (INR) Final Performing Location [facility] [address]
--- OUTSIDE RECORDS SUMMARY | 2023-09-13 22:05 | External Medical Summary | Summary of Care ---
Author Name Unknown Organization [facility] Address [address] [facility] [place] [address] Phone [phone] Care Team Providers Care Radioactive Waste Disposal Dispatcher Name Role Phone Letitia Posey DO Primary Care Provider [phone] Reason for Visit * Reason Comments eRx-Medication Refill Encounter Details Date Type Department Care Team (Late st Contact Info) Description 08/04/2023 Refill Family Practice [facility] [address] [facility] [place] [address] Letitia Posey DO [address] [facility] [place] [address] Encounter for long-term (current) use of medications*; Type 2 diabetes mellitus with hemoglobin A1c goal of less than 8.0% ([facility]); Type 2 diabetes mellitus with stage 3 chronic kidney disease, without long-term current use of insulin, unspecified whether stage 3a or 3b CKD ([facility]); Physical exam, routine Allergies Active Allergy Reactions Criticality Noted Date Comments Glipizide 02/18/2021 Dizzy, confusion Penicillins Rash 10/13/2001 documented as of this encounter (statuses as of 08/05/2023) Medications Medication Sig Dispensed Refills Start Date [...] Dx. E11.9 100 Strip 3 1 Active Warfarin Sodium 5 MG Oral Tablet (Jantoven)Indicatio ns:Persistent atrial fibrillation (HCC) take 1/2 a tablet TO 1 tablet daily or as directed 90 Tablet 3 2 Active Albuterol Sulfate (2.5 MG/3ML) 0.083% Inhalation Nebulization Solution (Proventil)Indicati ons:COPD, group B, by GOLD 2017 classification ([facility]) Inhale 1 Vial via nebulizer every 4 hours as needed for Wheezing or Shortness of Breath. 90 mL 3 3 Active Furosemide 40 MG Oral Tablet (Lasix)Indications: Heart failure, diastolic, due to HTN (HCC) Take 1 Tablet by mouth in the [...] 0 3 Active Vitamin D3 1.25 MG (13405 UT) Oral Capsule TAKE 1 CAPSULE BY [...] morning. 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 0 10/18/2017 [...] as of this encounter (statuses as of 08/05/2023) Resolved Problems Problem Noted Date Diagnosed Date Resolved Date Coronary artery disease invo lving [place] heart without angina pectoris 04/18/2019 10/29/2019 Chronic [...] 02/28/2012 08/29/2018 Overview: Per CKD protocol #1 nursing home current use of 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 therapy [...] as of this encounter (statuses as of 08/05/2023) Immunizations Name Administration Dates Next Due COVID-19 [...] encounter Miscellaneous Notes * Telephone Encounter - Eugenio Peterson RPh - 08/05/2023 7:49 AM EDTSigned Prescriptions: Disp Refills Rosuvastatin Calcium 20 MG Oral Tablet (Cr*90 Tab*0 Sig: TAKE 1 TABLET BY MOUTH ONCE DAILYAuthorizing Provider: LETITIA POSEY User: EUGENIO PETERSON----- * Telephone Encounter - Eugenio Peterson RPh - 08/05/2023 7:45 AM EDT Provided 90 days supply with 1 refill(s) until next routine labs will approximately be drawn. Per refill protocol patient should have Lipid panel on file within past year. Reviewed AMP report, Care Gaps/Health Maintenance, medications list, and for any routine labs typically ordered for this patient. Lab orders placed. Patient can complete labs with next routine lab work. Thank You, Eugenio Peterson [facility] Clinical Pharmacist Centralized Clinical Pharmacy Services (CCPS) (formerly Telepharmacy) [phone] 08/05/2023, 7:46 AM documented in this encounter Plan of Treatment Upcoming Encounters Date Type Department Care Team (Late st Contact Info) Description 08/09/2023 9:20 AM EDT Office Visit Podiatry [facility] [address] [place] [address] Bryanna Guzman DPM [address] [place] [address] 09/05/2023 2:20 PM EST Anticoagulation Pharmacy, [facility] [address] [facility] [place] [address] Pharmacist1, [facility] [address] [facility] [place] [address] 11/09/2023 3:00 PM EST Office Visit Sleep Disorders Ctr [facility] [address] [place] [phone] Tess Valdez, DO [address] [place] [address] 11/11/2023 3:00 PM EST Office Visit Family Practice [facility] [address] [place] [address] Letitia Posey, DO [address] [facility] [place] [address] 12/16/2023 11:00 AM EST Cardiac Studies Cardiology, [facility] [address] [place] [address] [facility] [address] [place] [address] 05/04/2024 3:00 PM EDT Office Visit [facility], [facility] [place] [address] Eddie Suh MD 200 [facility] [place] [address] Scheduled Orders Name Type Priority Associated Diagnoses Orde r Schedule ALBUMIN / CREATININE RATIO, URINE Lab Routine Physical exam, routine Expected: 08/05/2023 (Approximate), Expires: 08/05/2024 Health Maintenance Due Date Last Done Comments Alpha-1 Antitrypsin 1953 Zoster Vaccines (1 of 2) 1985 Hepatitis B (1 of 3 - Risk 3-dose series) 1995 DIABETES-EYE EXAM 01/11/2023 01/11/2022, , 12/17/2019, Additional history exists [...] as of this encounter Visit Diagnoses Diagnosis Encounter for long-term (current) use of medications- Primary Encounter for long-term (current) use of other medications Type 2 diabetes mellitus with stage 3 chronic kidney disease, without long-term current use of insulin, unspecified whether stage 3a or 3b CKD (HCC) Physical exam, routine Routine general medical examination at a health care facility documented in this encounter Advance Directives Latest Code Status on File Code Status Date Activated Date Inactivated Comments Full Code 02/21/2015 7:41 AM 02/21/2015 2:10 PM This order reflects the patients wishes and were consensually agreed upon. Question Answer Comments Discussion of Advance Directives occurred with: Not Discussed Care Teams Radioactive Waste Disposal Dispatcher Relationship Specialty Start Date End Date Letitia Posey DO [address] [place] [address] PCP - General Family Medicine 06/02/18 documented as of this encounter
--- OUTSIDE RECORDS SUMMARY | 2023-09-13 22:06 | External Medical Summary | Summary of Care ---
Author Name Unknown Organization [facility] Address [address] [place] [address] Phone [phone] Care Team Providers Care Dock Attendant Name Role Phone JorgitoChad hager Primary Care Provider [phone] Reason for Visit * Reason Onset Date Comments case management 08/04/2023 [facility] Encounter Details Date Type Department Care Team (Latest Contact Info) Description 08/04/2023 Pharmacy Director Telephone [address] [phone] Linn Smith, RN [address] [place] [address] case management ([facility]) Allergies Active Allergy Reactions Criticality Noted Date Comments Glipizide 02/18/2021 Dizzy, confusion Penicillins Rash 10/13/2001 documented as of this encounter (statuses as of 08/04/2023) Medications Medication Sig Dispensed Refills Start Date [...] ns:COPD, group B, by GOLD 2017 classification ([facility]) Inhale 1 Vial via nebulizer every 4 hours as needed for Wheezing or Shortness of Breath. 90 mL 3 10/20/2022 Active Furosemide 40 MG Oral Tablet (Lasix)Indications:H eart failure, diastolic, due to HTN (HCC) Take [...] 0 12/20/2022 Active Vitamin D3 1.25 MG (57075 UT) Oral Capsule TAKE 1 CAPSULE BY MOUTH ONCE WEEKLY 12 Capsule 0 01/17/2023 Active dilTIAZem HCl ER 240 MG Oral Capsule Extended Release 24 HourIndications:Long standing persistent atrial fibrillation (HCC) TAKE 1 CAPSULE BY MOUTH ONCE DAILY 90 Capsule 3 02/14/2023 Active Rosuvastatin Calcium 20 MG Oral Tablet (Crestor) TAKE 1 TABLET BY MOUTH ONCE DAILY 90 Tablet 1 02/14/2023 Active Montelukast Sodium 10 MG Oral Tablet (Singulair) Take 1 Tablet by mouth in the morning. 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 10/18/2017 [...] as of this encounter (statuses as of 08/04/2023) Resolved Problems Problem Noted Date Diagnosed Date Resolved Date Coronary artery disease invo lving [place] heart without angina pectoris 04/18/2019 10/29/2019 Chronic [...] 02/28/2012 08/29/2018 Overview: Per CKD protocol #1 half-way current use of 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 therapy 03/05/2011 [...] as of this encounter (statuses as of 08/04/2023) Immunizations Name Administration Dates Next Due COVID-19 [...] encounter Miscellaneous Notes * Telephone Encounter - Linn Smith RN - 08/04/2023 8:34 AM EDT Attempted to contact patient for [facility] weight trigger, a gain of 5.2 lbs in the past 7 days. Current weight is 174.4 lbs. No answer to call. Left message on machine requesting call back. [facility]. Follow-up Routine Attempted Phone Call Second Attempt Call Outcome Left Voicemail/Message Plan Will await call back from patient. documented in this encounter Plan of Treatment Upcoming Encounters Date Type Department Care Team (Late st Contact Info) Description 08/09/2023 9:20 AM EDT Office Visit Podiatry [facility] [place] [address] [place] [address] Bryanna Guzman DPM [address] [place] [address] 09/05/2023 2:20 PM EST Anticoagulation Pharmacy, [facility] [place] [address] [place] [address] Pharmacist1, [facility] [address] [facility] [facility] [facility] [place] [address] 11/09/2023 3:00 PM EST Office Visit Sleep Disorders Ctr [facility]ran [facility] [place] [address] [facility] [place] [phone] Tess Valdez, DO [facility] [place] [address] 11/11/2023 3:00 PM EST Office Visit Family Practice [facility] [address] [place] [address] Chad Phoenix, DO [address] [facility] [facility] [place] [address] 12/16/2023 11:00 AM EST Cardiac Studies Cardiology, [facility] [address] [facility] [place] [address] Dom Perez [facility] 132 [facility] [place] [address] 05/04/2024 3:00 PM EDT Office Visit Nephrology, [facility] [address] [place] [address] Eddie Suh MD 200 [facility] [place] [address] Health Maintenance Due Date Last Done Comments [...] Directives occurred with: Not Discussed Care Teams Dock Attendant Relationship Specialty Start Date End Date Chad Phoenix DO [address] [place] [address] PCP - General Family Medicine 06/02/18 documented as of this encounter
--- OUTSIDE RECORDS SUMMARY | 2023-09-13 22:06 | External Medical Summary | Summary of Care ---
Author Name Unknown Organization [facility] Address [address] [place] [address] Phone [phone] Care Team Providers Care Waterside Worker Name Role Phone JorgitoChad hager Primary Care Provider [phone] Reason for Visit * Reason Onset Date Comments case management 08/03/2023 [facility] trigger for weight Encounter Details Date Type Department Care Team (Latest Contact Info) Description 08/03/2023 Skid Machine Operator Telephone Care Coordination [address], [place] [id number] Falguni Mills, JOCELYN [address] [place] [address] case management ([facility] trigger for weight) Allergies Active Allergy Reactions Criticality Noted Date Comments Glipizide 02/18/2021 Dizzy, confusion Penicillins Rash 10/13/2001 documented as of this encounter (statuses as of 08/03/2023) Medications Medication Sig Dispensed Refills Start Date [...] group B, by GOLD 2017 classification ([facility]) Inhale 1 Vial via nebulizer every 4 hours as needed for Wheezing or Shortness of Breath. 90 mL 3 10/20/2022 Active Furosemide 40 MG Oral Tablet (Lasix)Indications:H eart failure, diastolic, due to HTN ([facility]) Take 1 Tablet by mouth in the [...] 0 12/20/2022 Active Vitamin D3 1.25 MG (24098 UT) Oral Capsule TAKE 1 CAPSULE BY [...] morning. 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 0 10/18/2017 [...] as of this encounter (statuses as of 08/03/2023) Resolved Problems Problem Noted Date Diagnosed Date Resolved Date Coronary artery disease invo lving [place] heart without angina pectoris 04/18/2019 10/29/2019 Chronic [...] 08/29/2018 Overview: Per CKD protocol #1 terminal operations manager current use of 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 therapy 03/05/2011 [...] as of this encounter (statuses as of 08/03/2023) Immunizations Name Administration Dates Next Due COVID-19 [...] encounter Miscellaneous Notes * Telephone Encounter - Falguni Mills RN - 08/03/2023 12:13 PM EDT [facility] trigger for weight. Follow-up Routine Attempted Phone Call First Attempt Call Outcome Left Voicemail/Message Plan Will await call back from patient. Trigger for 5lb weight gain in one week. documented in this encounter Plan of Treatment Upcoming Encounters Date Type Department Care Team (Late st Contact Info) Description 08/09/2023 9:20 AM EDT Office Visit Podiatry Steph Torress [place] [address] [place] [address] [address] Bryanna Guzman, GIBRAN [address] [address] [address] 09/05/2023 2:20 PM EST Anticoagulation Pharmacy, [facility] Tamiko [place] [address] [facility] [place] [address] Pharmacist1, [facility] [address] [facility] [place] [address] 11/09/2023 3:00 PM EST Office Visit Sleep Disorders Ctr Eran Huertas, [place] [address] [place] [address] [phone] Tess Valdez, [address] [place] [address] [address] 11/11/2023 3:00 PM EST Office Visit Family Practice [facility] [address] [facility] [address] [place] [address] Chad Phoenix DO [address] [facility] [address] [place], [place] [address] 12/16/2023 11:00 AM EST Cardiac Studies Cardiology, [facility] [place] [address] [facility] [address] [facility] [place] [address] 05/04/2024 3:00 PM EDT Office Visit Nephrology, [facility] [address] [facility] [place] [address] Eddie Suh MD [address] [facility] [place] [address] Health Maintenance Due Date Last Done Comments [...] Directives occurred with: Not Discussed Care Teams Waterside Worker Relationship Specialty Start Date End Date Chad Phoenix DO [address] [place] [address] PCP - General Family Medicine 06/02/18 documented as of this encounter
--- OUTSIDE RECORDS SUMMARY | 2023-09-13 22:06 | External Medical Summary | Summary of Care ---
Author Name Unknown Organization [facility] Address [address] [facility] [place] [address] Phone [phone] Care Team Providers Care Cable Operator Name Role Phone Letitia Phoenix DO Primary Care Provider [phone] Reason for Visit * Reason Comments eRx-Medication Refill Encounter Details Date Type Department Care Team (Late st Contact Info) Description 07/31/2023 Refill Family Practice [facility] 200 [facility] [place] [address] Letitia Phoenix DO [address] [facility] [place] [address] Acquired hypothyroidism Allergies Active Allergy Reactions Criticality Noted Date Comments Glipizide 02/18/2021 Dizzy, confusion Penicillins Rash 10/13/2001 documented as of this encounter (statuses as of 08/01/2023) Medications Medication Sig Dispensed Refills Start Date [...] ons:COPD, group B, by GOLD 2017 classification ([facility]) Inhale 1 Vial via nebulizer [...] 0 3 Active Vitamin D3 1.25 MG (85670 UT) Oral Capsule TAKE 1 CAPSULE BY MOUTH ONCE WEEKLY 12 Capsule 0 3 Active dilTIAZem HCl ER 240 MG Oral Capsule Extended Release 24 HourIndications:Roby gstanding persistent atrial fibrillation (HCC) TAKE 1 CAPSULE BY MOUTH ONCE DAILY 90 Capsule 3 3 Active Rosuvastatin Calcium 20 MG Oral Tablet (Crestor) TAKE 1 TABLET BY MOUTH ONCE DAILY 90 Tablet 1 3 Active Montelukast Sodium 10 MG Oral Tablet (Singulair) Take 1 Tablet by mouth in the morning. 90 Tablet 3 3 Active Nystatin 799832 UNIT/GM External Powder (Nystop) Apply topically to affected area 3 times a day. Apply to underside of L breast 15 g 3 3 Active Januvia 50 MG Oral TabletIndications:T ype 2 diabetes mellitus with stage 3 chronic kidney disease, without long-term current use of insulin, unspecified whether stage 3a or 3b CKD (HCC) TAKE ONE TABLET BY MOUTH EVERY MORNING 90 Tablet 1 3 Active Metoprolol Succinate ER 100 MG [...] OTHER MEDICATIONS 90 Tablet 3 3 Active Levothyroxine Sodium 75 MCG Oral Tablet (Levoxyl)Indication s:Acquired hypothyroidism TAKE 1 TABLET BY MOUTH EVERY MORNING AT LEAST 30 MINUTES PRIOR TO BREAKFAST OR OTHER MEDICATIONS 90 Tablet 1 3 08/01/20 23 Discontinued documented as of this encounter (statuses as of 08/01/2023) Active Problems Problem Noted Date Diagnosed Date [...] mitral regurgitation by prior echocardi ogram 10/18/2017 knockdown worker 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 therapy 0 [...] as of this encounter (statuses as of 08/01/2023) Resolved Problems Problem Noted Date Diagnosed Date Resolved Date Coronary artery disease invo lving [place] heart without angina pectoris 04/18/2019 10/29/2019 Chronic [...] 02/28/2012 08/29/2018 Overview: Per CKD protocol #1 knockdown worker current use of 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 therapy 03/05/2011 02/13/2019 Asthma with severity to be determined 04/02/2010 03/20/2013 Overview: Per Asthma Taxonomy ICD-10 update of inactive term Asthma, mild persistent 04/02/2010 0702/2017 Overview: PER PROVIDER PROTOCOL. Obesity, morbid (more [...] as of this encounter (statuses as of 08/01/2023) Immunizations Name Administration Dates Next Due COVID-19 [...] encounter Miscellaneous Notes * Telephone Encounter - Tod Irby RPh - 08/01/2023 10:58 AM EDTSigned Prescriptions: Disp Refills Levothyroxine Sodium 75 MCG Oral Tablet (L*90 Tab*3 Sig: TAKE 1 TABLET BY MOUTH EVERY MORNING AT LEAST 30 MINUTES PRIOR TO BREAKFAST OR OTHER MEDICATIONSAuthorizingProvider: LETITIA PHOENIX User: TOD IRBY documented in this encounter Plan of Treatment Upcoming Encounters Date Type Department Care Team (Late st Contact Info) Description 08/09/2023 9:20 AM EDT Office Visit Podiatry [facility] [address] [place] [address] [address] Bryanna Guzman DPM [address] [place] [address] [address] 09/05/2023 2:20 PM EST Anticoagulation Pharmacy, [facility] [address] [place] [address] Pharmacist1, [facility] [address] [place] [address] 11/09/2023 3:00 PM EST Office Visit Sleep Disorders Ctr [facility] 132 [facility] [place] [phone] Tess Valdez, DO 132 [facility] [place] [address] 11/11/2023 3:00 PM EST Office Visit Family Practice [facility] [address] [place] [address] Letitia Phoenix, DO [address] [place] [address] 12/16/2023 11:00 AM EST Cardiac Studies Cardiology, [facility] 132 [facility] [place] [address] [facility] 132 [facility] [place] [address] 05/04/2024 3:00 PM EDT Office Visit Nephrology, [facility] [address] [place] [address] Eddie Suh MD [address] [place] [address] Health Maintenance Due Date Last Done Comments [...] as of this encounter Visit Diagnoses Diagnosis Acquired hypothyroidism Unspecified hypothyroidism documented in this encounter Advance Directives Latest Code Status on File Code Status Date Activated Date Inactivated Comments Full Code 02/21/2015 7:41 AM 02/21/2015 2:10 PM This order reflects the patients wishes and were consensually agreed upon. Question Answer Comments Discussion of Advance Directives occurred with: Not Discussed Care Teams Cable Operator Relationship Specialty Start Date End Date Letitia Phoenix DO [address] [place] [address] PCP - General Family Medicine 06/02/18 documented as of this encounter
--- OUTSIDE RECORDS SUMMARY | 2023-09-13 22:06 | External Medical Summary | Summary of Care ---
Author Name Unknown Organization [facility] Address [address] [place] [facility] [place] [address] Phone [phone] Care Team Providers Care Spread Cutter Name Role Phone Letitia Posey DO Primary Care Provider [phone] Reason for Visit * Reason Comments eRx-Medication Refill Encounter Details Date Type Department Care Team (Late st Contact Info) Description 08/01/2023 Refill Family Practice [facility] 200 [facility] [address] Letitia Posey DO [address] [facility] [place] [address] Encounter for long-term (current) use of medications*; Type 2 diabetes mellitus with stage 3 chronic kidney disease, without long-term current use of insulin, unspecified whether stage 3a or 3b CKD (HCC) Allergies Active Allergy Reactions Criticality Noted Date Comments Glipizide 02/18/2021 Dizzy, confusion Penicillins Rash 10/13/2001 documented as of this encounter (statuses as of 08/02/2023) Medications Medication Sig Dispensed Refills Start Date [...] ons:COPD, group B, by GOLD 2017 classification ([facility]) Inhale 1 Vial via nebulizer every 4 hours as needed for Wheezing or Shortness of Breath. 90 mL 3 3 Active Furosemide 40 MG Oral Tablet (Lasix)Indications: Heart failure, diastolic, due to HTN ([facility]) Take 1 Tablet by mouth [...] 0 3 Active Vitamin D3 1.25 MG (55769 UT) Oral Capsule TAKE 1 CAPSULE BY [...] morning. 90 Tablet 3 3 Active Nystatin 185688 UNIT/GM External Powder (Nystop) Apply topically to [...] EVERY MORNING 90 Tablet 1 3 Active Januvia 50 MG Oral TabletIndications:T ype 2 diabetes mellitus with stage 3 chronic kidney disease, without long-term current use of insulin, unspecified whether stage 3a or 3b CKD (HCC) TAKE ONE TABLET BY MOUTH EVERY MORNING 90 Tablet 1 3 08/02/20 23 Discontinued documented as of this encounter (statuses as of 08/02/2023) Active Problems Problem Noted Date Diagnosed Date [...] mitral regurgitation by prior echocardi ogram 10/18/2017 intermodal customer service 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 therapy 0 10/18/2017 [...] as of this encounter (statuses as of 08/02/2023) Resolved Problems Problem Noted Date Diagnosed Date Resolved Date Coronary artery disease invo lving [place] heart without angina pectoris 04/18/2019 10/29/2019 Chronic [...] 02/28/2012 08/29/2018 Overview: Per CKD protocol #1 intermodal customer service current use of 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 therapy 03/05/2011 [...] as of this encounter (statuses as of 08/02/2023) Immunizations Name Administration Dates Next Due COVID-19 mRNA, LNP-s, No Pre serve, 2-Dose Series (Moderna) 12/09/2020,11/11/2020 COVID-19, mRNA, LNP-s, PF, B ooster, 100mcg/0.5mg (Moderna) 09/23/2021 H1N1 2008 Influenza, IM 11/18/2009 Pneumococcal Conjugate Vacc, 13 [...] Telephone Encounter - Eugenio Peterson RPh - 08/02/2023 6:22 AM EDTSigned Prescriptions: Disp Refills Januvia 50 MG Oral Tablet 90 Tab*1 Sig: TAKE ONE TABLET BY MOUTHEVERY MORNINGAuthorizing Provider: LETITIA POSEY User: EUGENIO PETERSON documented in this encounter Plan of Treatment Upcoming Encounters Date Type Department Care Team (Late st Contact Info) Description 08/09/2023 9:20 AM EDT Office Visit Podiatry [facility] [address] [place] [address] [address] Bryanna Guzman DPM [address] [place] [address] [address] 09/05/2023 2:20 PM EST Anticoagulation Pharmacy, [facility] [address] [facility] [place] [address] Pharmacist1, [facility] [address] [place] [address] 11/09/2023 3:00 PM EST Office Visit Sleep Disorders Ctr [facility] 132 [facility] [place] [phone] Tess Valdez, DO [address] [place] [address] 11/11/2023 3:00 PM EST Office Visit Family Practice [facility] [address] [facility] [place] [address] Letitia Posey, DO [address] [facility] [place] [address] 12/16/2023 11:00 AM EST Cardiac Studies Cardiology, [facility] [address] [place] [address] Dom Perez [facility] 132 [facility] [place] [address] 05/04/2024 3:00 PM EDT Office Visit Nephrology, [facility] [address] [place] [address] Eddie Suh MD 200 [facility] [place] [address] Scheduled Orders Name Type Priority Associated Diagnoses Orde r Schedule LIPID PANEL WITH DIRECT LDL IF TG IS HIGH Lab Routine Encounter for long-term (current) use of medications Expected: 08/02/2023 (Approximate), Expires: 08/02/2024 Health Maintenance Due Date Last Done Comments [...] whether stage 3a or 3b CKD (HCC) documented in this encounter Advance Directives Latest Code Status on File Code Status Date Activated Date Inactivated Comments Full Code 02/21/2015 7:41 AM 02/21/2015 2:10 PM This order reflects the patients wishes and were consensually agreed upon. Question Answer Comments Discussion of Advance Directives occurred with: Not Discussed Care Teams Spread Cutter Relationship Specialty Start Date End Date Letitia Posey DO [address] [place] [address] PCP - General Family Medicine 06/02/18 documented as of this encounter
--- OUTSIDE RECORDS SUMMARY | 2023-09-13 22:07 | External Medical Summary | Summary of Care ---
Author Name Unknown Organization [facility] Address [address] [facility] [place] [address] Phone [phone] Care Team Providers Care Customer Success Manager Name Role Phone Chad Phoenix DO Primary Care Provider [phone] Reason for Visit * Reason Onset Date Comments Advice 07/12/2023 Encounter Details Date Type Department Care Team Description 07/12/2023 Telephone Family Practice [facility] [place] 200 [facility] [place] [address] Chad Phoenix DO 200 [facility] [place] [address] Advice Allergies Active Allergy Reactions Severity Noted Date Comments Glipizide 02/18/2021 Dizzy, confusion Penicillins Rash 10/13/2001 documented as of this encounter (statuses as of 07/25/2023) Medications Medication Sig Dispensed Refills Start Date [...] group B, by GOLD 2017 classification ([facility]) Inhale 1 Vial via nebulizer every 4 hours as needed for Wheezing or Shortness of Breath. 90 mL 3 10/20/2022 Active Furosemide 40 MG Oral Tablet (Lasix)Indications:H eart failure, diastolic, due to HTN ([facility]) Take 1 Tablet by mouth in the [...] 0 12/20/2022 Active Vitamin D3 1.25 MG (41104 UT) Oral Capsule TAKE 1 CAPSULE BY [...] morning. 90 Tablet 3 02/14/2023 Active Nystatin 005279 UNIT/GM External Powder (Nystop) Apply topically to affected area 3 times a day. Apply to underside of L breast 15 g 3 02/21/2023 Active Levothyroxine Sodium 75 MCG Oral Tablet (Levoxyl)Indications :Acquired hypothyroidism TAKE 1 TABLET BY MOUTH EVERY MORNING AT LEAST 30 MINUTES PRIOR TO BREAKFAST OR OTHER MEDICATIONS 90 Tablet 1 02/22/2023 Active Januvia 50 MG Oral TabletIndications:Ty pe 2 diabetes mellitus with stage 3 chronic kidney disease, without long-term current use of insulin, unspecified whether stage 3a or 3b CKD (HCC) TAKE ONE TABLET BY MOUTH EVERY MORNING 90 Tablet 1 2023 Active Metoprolol Succinate ER 100 MG Oral Tablet Extended Release 24 Hour (toPROL XL) TAKE 1 TABLET BY MOUTH TWICE DAILY 180 Tablet 3 04/14/2023 Active Isosorbide Mononitrate ER 30 MG Oral Tablet Extended Release 24 Hour (Imdur) TAKE 1 TABLET BY MOUTH EVERY MORNING 90 Tablet 3 05/12/2023 Active documented as of this encounter (statuses as of 07/25/2023) Active Problems Problem Noted Date Nocturnal hypoxemia 12/08/2022 Permanent atrial fibrillation 11/24/2021 Stage 3b chronic kidney disease 11/24/19 22 CKD (chronic kidney disease) stage 4, GF R 15-29 ml/min 11/24/2021 Chronic right-sided heart failure 2020 Acute diastolic HF (heart failure) 10/14 Thrombocytopenia, unspecified 10/14/2020 Type 2 diabetes mellitus wit h stage 3 chronic kidney disease, without long-term current use of insulin 10/14/2020 Longstanding persistent atrial fibrillat ion 10/14/2020 Hypertensive heart and kidne y disease with chronic diastolic congestive heart failure and stage 3 chronic kidney disease 10/29/2019 Hyperparathyroidism, secondary renal Paroxysmal atrial fibrillation 0 COPD, group B, by GOLD 2017 classificati on 03/19/2019 Overview: Per COPD GOLD Classification DAIN (obstructive sleep apnea) 03/07/2019 Pulmonary HTN 03/07/2019 Sensorineural hearing loss (SNHL) of rig ht ear 08/22/2018 Hyperkalemia 07/14/2018 Hypertensive heart disease w ith diastolic heart failure and stage 3 chronic kidney disease 05/16/2018 Acquired hypothyroidism 05/16/2018 Moderate mitral regurgitation by prior e chocardiogram 10/18/2017 care home 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 t herapy 10/18/2017 Overview: ICD-10 update of inactive term Cardiac pacemaker in situ 06/23/2017 Essential hypertension with goal blood p ressure less than 140/90 08/02/2016 Type 2 diabetes mellitus with diabetic c hronic kidney disease 08/16/2015 Heart failure, diastolic, due to HTN Type 2 diabetes mellitus with hemoglobin A1c goal of less than 8.0% 05/21/2014 Overview: ICD-10 update of inactive term Atrial fibrillation 03/05/2011 Anticoagulation management encounter DYSLIPIDEMIA, GOAL LDL BELOW 100 009 Overview: Per Lipid Taxonomy. ADVANCE DIRECTIVE INFORMATION 06/17/2005 Overview: Yes, Patient instructed to provide copy of advance directive for provider to review and to be scanned into Electronic Medical Record documented as of this encounter (statuses as of 07/25/2023) Resolved Problems Problem Noted Date Resolved Date Coronary artery disease invo lving [place] heart without angina pectoris 04/18/2019 10/29/2019 Chronic hypoxemic respiratory failure 08/22/2018 04/22/2022 Kidney disease, chronic, stage IV (GFR 15-29 ml/ min) 07/14/2018 07/24/2018 COPD, moderate 04/03/2015 03/21/2019 Overview: Per COPD GOLD Classification COPD exacerbation 10/30/2014 04/13/2017 Type 2 diabetes mellitus wit h hemoglobin A1c goal of 7.0%-8.0% 03/04/2014 05/21/2014 Overview: ICD-10 update of inactive term DM type 2 causing CKD stage 3 03/28/2013 Type 2 diabetes mellitus wit h hemoglobin A1c goal of less than 7.0% 03/28/2013 03/04/2014 Overview: ICD-10 update of inactive term Type 2 diabetes mellitus wit h hemoglobin A1c goal of 7.0%-8.0% 09/27/2012 03/28/2013 Overview: ICD-10 update of inactive term Kidney disease, chronic, stage III (GFR 30-59 ml /min) 02/28/2012 08/29/2018 Overview: Per CKD protocol #1 care home 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 therapy 0 03/05/2011 02/13/2019 Asthma with severity to be determined 04/02/2010 03/20/2013 Overview: Per Asthma Taxonomy ICD-10 update of inactive term Asthma, mild persistent 04/02/2010 04/13/20 17 Overview: PER [facility]. Obesity, morbid (more than 1 00 lbs over ideal weight or BMI > 40) 01/06/2010 08/23/2018 Overview: Per Obesity Taxonomy ICD-10 update of inactive term HTN, goal below 130/80 11/05/2009 6 Overview: Per HTN Taxonomy. Type 2 diabetes mellitus wit h hemoglobin A1c goal of less than 7.0% 08/07/2009 09/27/2012 Overview: Per Diabetes Taxonomy. ICD-10 update of inactive term HTN, goal below 140/90 02/06/2008 0 Overview: Per HTN Taxonomy. Type 2 diabetes mellitus wit h hemoglobin A1c goal of less than 7.0% 05/09/2006 08/07/2009 Overview: Per Diabetes Taxonomy. ICD-10 update of inactive term PURE HYPERCHOLESTEROLEM 11/30/2002 09/18/20 09 Overview: Per Lipid Taxonomy. Paroxysmal SVT (supraventricular tachycardia) 02/13/2019 HYPOTHYROIDISM NOS 11/30/2002 06/11/2016 CARDIOVAS SYS SYMP NEC-carotid bruit 11/30/2002 04/13/2017 OBESITY, UNSPECIFIED 11/30/2002 01/06/2010 Overview: Per Obesity Taxonomy Asthma, allergic 04/02/2010 CPAP (continuous positive airway pressure) depabram augustin 03/07/2019 Overview: setting 4 documented as of this encounter (statuses as of 07/25/2023) Immunizations Name Administration Dates Next Due COVID-19 [...] Seasonal Influenza, Quadriva lent Hd (Fluzone Hd) 06/30/2022,07/02/2021 Seasonal Influenza, Quadriva lent, No Preserve, IM [...] = 0.6 oz pur e alcohol) occasional Food Insecurity Answer Date Recorded Within the past 12 months, y ou worried that your food would run out before you got money to buy more. Never true 04/16/2021 Within the past 12 months, t he food you bought just didn't last and you didn't have money to get more. Never true 04/16/2021 Sex Assigned at Date Recorded Female 02/14/2023 2:15 PM E DT Job Start Date Occupation Industry Not on file Not on file Not on file documented as of this encounter Miscellaneous Notes * Telephone Encounter - Marina Clarke LPN - 07/25/2023 11:13 AM EDT See encounter dated 07/19/23. * Telephone Encounter - DAIN Shaver - 07/12/2023 4:33 PM EDT Pts dtr David will be bringing in paperwork for pt to have diabetic shoes. documented in this encounter Plan of Treatment Upcoming Encounters Date Type Specialty Care Team Description 07/25/2023 Anticoagulation [facility]ist1[facility] [address] 07/25/2023 Immunization Ancillary Sp, Flu Shot Clinic 200 [facility] [place] [address] 08/09/2023 Office Visit Podiatry Bryanna Guzman DPM [address] [place] [address] 11/09/2023 Office Visit Sleep Disorders Tess Valdez, [address] [place] [address] 11/11/2023 Office Visit Family Medicine Chad Phoenix, DO 200 [facility] [place] [address] 12/16/2023 Cardiac Studies Cardiology [facility] [address] [place] [address] 05/04/2024 Office Visit Nephrology Eddie Suh MD 200 [facility] [place] [address] Health Maintenance Due Date Last Done Comments Alpha-1 Antitrypsin 1953 Zoster Vaccines (1 of 2) 1954 DIABETES-EYE EXAM 01/11/2023 01/11/2022, , 12/17/2019, Additional history exists Depression Screening 05/25/2023 05/25/2022 COVID-19 Vaccine ( season) 2023 09/23/2021, 12/09/2020, 11/11/2020 Influenza Vaccine (FLU shot) (#1) 2023 06/30/2022, 07/02/2021, 09/01/2020, Additional history exists HbA1c 10/05/2023 04/05/2023, 10/10, 11/18/2021, Additional history [...] Pneumococcal Vaccine: 65+ Years Completed 12/17/2015, 02/16/2010 GARDASIL-HPV IMMUNIZATION SERIES Aged Out No longer eligible based on patient's age to complete this topic Hepatitis B Aged Out No longer eligi ble based on patient's age to complete this [...] Directives occurred with: Not Discussed Care Teams Customer Success Manager Relationship Specialty Start Date End Date Chad Phoenix, DO 200 [place] [address] PCP - General Family Medicine 06/02/18 documented as of this encounter
--- OUTSIDE RECORDS SUMMARY | 2023-09-13 22:07 | External Medical Summary ---
Author Name Unknown Address Unknown Organization K[facility] [place] [address] Laboratory Report Ordering Provider Test Date Status THANIA ALBERTO V 06/10/2023 15:28:07 Final Therapeutic ranges for non-o perative patients:
Prophylaxsis/treatment of DVT: (Range:2.0-3.0)
Treatment of pulmonary embolism:(Range:2.0-3.0)
Prevention of systemic embolism from:
-tissue heart valves
-acute myocardial infarction
-valvular heart disease
-atrial fibrillation
(Range: 2.0-3.0)
Mechanical prosthetic valves: (Range: 2.5-3.5) Observation Date Value Abnormality Reference (Units ) Status INR in Capillary blood by Coagulation assay 06/10/2023 15:28:07 2.1 (INR) Final Performing Location [facility] [place] [address]
--- OUTSIDE RECORDS SUMMARY | 2023-09-13 22:07 | External Medical Summary | Summary of Care ---
Author Name Unknown Organization [facility] Address [address] [facility] [address] Phone [phone] Care Team Providers Care Inside Sales Manager Name Role Phone Bruce Phoenixe Jorge Luis GAMEZ Primary Care Provider [phone] Encounter Details Date Type Department Care Team Description 07/25/2023 Immunization Ancillary [facility] [address] [facility] [address] Sp, Flu Shot Clinic [address] [place] [address] Arrived Allergies Active Allergy Reactions Severity Noted Date [...] B, by GOLD 2017 classification ([facility]) Inhale 1 Vial via nebulizer every 4 hours as needed for Wheezing or Shortness of Breath. 90 mL 3 10/20/2022 Active Furosemide 40 MG Oral Tablet (Lasix)Indications:H eart failure, diastolic, due to HTN ([facility]) Take 1 Tablet by mouth in [...] 0 12/20/2022 Active Vitamin D3 1.25 MG (30889 UT) Oral Capsule TAKE 1 CAPSULE BY [...] morning. 90 Tablet 3 02/14/2023 Active Nystatin 272189 UNIT/GM External Powder (Nystop) Apply topically to [...] mitral regurgitation by prior e chocardiogram 10/18/2017 [facility] 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 t herapy 10/18/2017 [...] Resolved Date Coronary artery disease invo lving [place] heart without angina pectoris 04/18/2019 10/29/2019 Chronic [...] 02/28/2012 08/29/2018 Overview: Per CKD protocol #1 roasterman 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 therapy 0 03/05/2011 [...] allergic 04/02/2010 CPAP (continuous positive airway pressure) depen dence 03/07/2019 Overview: setting 4 documented as of [...] on file documented as of this encounter Plan of Treatment Upcoming Encounters Date Type Specialty Care Team Description 08/09/2023 Office Visit Podiatry Bryanna Guzman, DUSTYM [address] [place] [address] 09/05/2023 Anticoagulation Pharmacy Pharmacist1, [facility] [address] [address] [place] [address] 11/09/2023 Office Visit Sleep Disorders Tess Valdez, [address] [place] [address] 11/11/2023 Office Visit Family Medicine Chad Phoenix DO [address] [facility] [place] [address] 12/16/2023 [facility] [address] [place] [address] 05/04/2024 Office Visit Nephrology Eddie Suh MD [address] [facility] [place] [address] Health Maintenance Due Date Last Done Comments [...] Directives occurred with: Not Discussed Care Teams Inside Sales Manager Relationship Specialty Start Date End Date Chad Phoenix, DO [address] [place] [address] PCP - General Family Medicine 06/02/18 documented as of this encounter
--- OUTSIDE RECORDS SUMMARY | 2023-09-13 22:07 | External Medical Summary ---
Author Name Unknown Address Unknown Organization [facility] [place] [address] Laboratory Report Ordering Provider Test Date Status FERNANDO REAGAN1 07/25/2023 14:28:24 Final Therapeutic ranges for non-o perative patients:
Prophylaxsis/treatment of DVT: (Range:2.0-3.0)
Treatment of pulmonary embolism:(Range:2.0-3.0)
Prevention of systemic embolism from:
-tissue heart valves
-acute myocardial infarction
-valvular heart disease
-atrial fibrillation
(Range: 2.0-3.0)
Mechanical prosthetic valves: (Range: 2.5-3.5) Observation Date Value Abnormality Reference (Units ) Status INR in Capillary blood by Coagulation assay 07/25/2023 14:28:24 2.5 (INR) Final Performing Location [facility] [place] [address]
--- OUTSIDE RECORDS SUMMARY | 2023-09-13 22:07 | External Medical Summary | Summary of Care ---
Author Name Unknown Organization [facility] Address [address] [facility] [place] [address] Phone [phone] Care Team Providers Care Liability Claims Adjuster Name Role Phone Chad Phoenix DO Primary Care Provider [phone] [phone] Reason for Visit * Reason Onset Date Comments Advice 07/22/2023 Encounter Details Date Type Department Care Team Description 07/22/2023 Telephone Family Practice [facility] 200 [facility] [place] [address] Chad Phoenix DO 200 [facility] [place] [address] Advice Allergies Active Allergy Reactions Severity Noted Date Comments Glipizide 02/18/2021 Dizzy, confusion Penicillins Rash 10/13/2001 documented as of this encounter (statuses as of 07/22/2023) Medications Medication Sig Dispensed Refills Start Date [...] ns:COPD, group B, by GOLD 2017 classification ([facility]) Inhale 1 Vial via nebulizer every 4 hours as needed for Wheezing or Shortness of Breath. 90 mL 3 10/20/2022 Active Furosemide 40 MG Oral Tablet (Lasix)Indications:H eart failure, diastolic, due to HTN ([facility]) Take 1 Tablet by mouth [...] 0 12/20/2022 Active Vitamin D3 1.25 MG (31194 UT) Oral Capsule TAKE 1 CAPSULE BY [...] morning. 90 Tablet 3 02/14/2023 Active Nystatin 766308 UNIT/GM External Powder (Nystop) Apply topically to [...] as of this encounter (statuses as of 07/22/2023) Active Problems Problem Noted Date Nocturnal hypoxemia [...] mitral regurgitation by prior e chocardiogram 10/18/2017 [facility] 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 t herapy 10/18/2017 [...] as of this encounter (statuses as of 07/22/2023) Resolved Problems Problem Noted Date Resolved Date Coronary artery disease invo lving [place] heart without angina pectoris 04/18/2019 10/29/2019 Chronic [...] 02/28/2012 08/29/2018 Overview: Per CKD protocol #1 [facility] 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 therapy 0 03/05/2011 [...] as of this encounter (statuses as of 07/22/2023) Immunizations Name Administration Dates Next Due COVID-19 [...] encounter Miscellaneous Notes * Telephone Encounter - Chad Phoenix DO - 07/22/2023 4:51 PM EDT No, excellent advice Marina. Thank you * Telephone Encounter - Marina Clarke LPN - 07/22/2023 4:34 PM EDT Spoke with David who states when she got home from work today Tori was sleeping which is unusual for her. She heard Tori calling out as if she were dreaming. David checked on her she said she wasn't feeling well. Had one episode of diarrhea. David checked her temp it was 99.6. Did a covidtest and it was negative. She asked if she should try to get her seen or just let her rest and see how she's doing. I told her Tori may be coming down with a viral illness, she could just be tired. I let her know that we don't have any appointments today, I told her about [facility] in [facility] if she wanted to take Tori to be evaluated today or tomorrow. I also reminded her that we have a physician conduit bender after hours and during the weekend so if Tori's status should change or David has questions/concerns she can call the 800 # to speak with the on-call provider. Any additional recommendations? * Telephone Encounter - DAIN Vergara - 07/22/2023 4:24 PM EDT Daughter requesting to speak to a nurse. Pt has slight fever and she is cold. Pt very sleepy as well. Covid test neg. documented in this encounter Plan of Treatment Upcoming Encounters Date Type Specialty Care Team Description 07/25/2023 Anticoagulation Pharmacy Pharmacist1, [facility] [address] [facility] [place] [address] 07/25/2023 Immunization Ancillary Sp, Flu Shot Clinic 200 [facility] [place] [address] 08/09/2023 Office Visit Podiatry Bryanna Guzman DPM [address] [place] [address] 11/09/2023 Office Visit Sleep Disorders Tess Valdez DO [address] [place] [address] 11/11/2023 Office Visit Family Medicine Chad Phoenix DO 200 [facility] [place] [address] 12/16/2023 Cardiac Studies Cardiology Dom Perez [facility] [address] [place] [address] 05/04/2024 Office Visit Nephrology Eddie Suh MD 200 [facility] [place] [address] Health Maintenance Due Date Last Done Comments [...] Directives occurred with: Not Discussed Care Teams Liability Claims Adjuster Relationship Specialty Start Date End Date Chad Phoenix, DO [address] [facility] [address] [facility] [place] [address] PCP - General Family Medicine 06/02/18 documented as of this encounter
--- OUTSIDE RECORDS SUMMARY | 2023-09-13 22:07 | External Medical Summary | Summary of Care ---
Author Name Unknown Organization [facility] Address [address] [address] Phone [phone] Care Team Providers Care Roller Painter Name Role Phone JorgitoChad hager Primary Care Provider [phone] Reason for Visit * Reason Comments Dosage Adjustment In Person (Anticoag Cl inic) Encounter Details Date Type Department Care Team Description 07/25/2023 Anticoagulation Pharmacy, [facility] [address] [place] [address] Pharmacist1, [facility] [address] [place] [address] Atrial fibrillation, unspecified type (HCC)* Allergies Active Allergy Reactions Severity Noted Date [...] ns:COPD, group B, by GOLD 2017 classification ([facility]) Inhale 1 Vial via nebulizer every 4 hours as needed for Wheezing or Shortness of Breath. 90 mL 3 10/20/2022 Active Furosemide 40 MG Oral Tablet (Lasix)Indications:H eart failure, diastolic, due to HTN ([facility]) Take 1 Tablet by mouth in the [...] 0 12/20/2022 Active Vitamin D3 1.25 MG (14656 UT) Oral Capsule TAKE 1 CAPSULE BY [...] morning. 90 Tablet 3 02/14/2023 Active Nystatin 824664 UNIT/GM External Powder (Nystop) Apply topically to [...] mitral regurgitation by prior e chocardiogram 10/18/2017 roasterman 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 t herapy 10/18/2017 [...] Resolved Date Coronary artery disease invo lving [place] heart without angina pectoris 04/18/2019 10/29/2019 Chronic [...] 02/28/2012 08/29/2018 Overview: Per CKD protocol #1 [facility] 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 therapy 0 03/05/2011 [...] allergic 04/02/2010 CPAP (continuous positive airway pressure) duane augustin 03/07/2019 Overview: setting 4 documented as [...] as of this encounter Progress Notes * Ritchie Aparicio RPh - 07/25/2023 3:07 PM EDT There are no phone numbers on file. Agree with plan as documented. Ritchie Menchaca RPh, CACP, CDE Clinical Pharmacist Medication Therapy Management [facility] 07/25/2023 3:07 PM * Eliz Cifuentes, Pharmacy Senior Mobile Developer - 07/25/2023 2:25 PM EDT Medication Therapy Disease Management - Anticoagulation Patient: Tori May | : 1935 Subjective Patient-Reported Symptoms: Patient Findings Positives: Upcoming dental procedure (Pt having 1 tooth pulled at upcoming dental appt. Informed ptthat this would not change warfarin insctructions. Informed pt if Dentist wants to INR checked prior to let us know.) Negatives: Signs/symptoms of thrombosis, Signs/symptoms of bleeding, Change in health, Change in alcohol use, Change in activity, Upcoming invasive procedure, Missed doses, Extra doses, Change in medications, Change in diet/appetite, Bruising Objective Current Warfarin Dose As of 07/25/2023 Warfarin maintenance plan: 2.5 mg (5 mg x 0.5) every Mon, Fri; 5 mg (5 mg x 1) all other days INR Result As of 07/25/2023 INR goal: 2.0-3.0 INR used for dosin.5 (07/25/2023) Assessment & Plan Warfarin Plan As of 07/25/2023 Full warfarin instructions: 2.5 mg every Mon, Fri; 5 mg all other days No change documented: Eliz Cifuentes, Pharmacy Senior Mobile Developer Next INR check: 09/05/2023 Repeat PT/INR in 6 week(s) Weekly dose: not changed Additional Dosing Information: Description Pt takes dose in AM Eliz Cifuentes PharmD PGY1 Tone Regulator 07/25/2023 2:31 PM documented in this encounter Plan of Treatment Upcoming Encounters Date Type Specialty Care Team Description 08/09/2023 Office Visit Podiatry Bryanna Guzman, GIBRAN [address] [place] [address] 09/05/2023 Anticoagulation Pharmacy Pharmacist1, [facility] [address] [facility] [place] [address] 11/09/2023 Office Visit Sleep Disorders Tess Valdez DO [address] [place] [address] 11/11/2023 Office Visit Family Medicine Chad Phoenix DO [address] [facility] [place] [address] 12/16/2023 Cardiac Studies [facility] [address] [place] [address] 05/04/2024 Office Visit Nephrology Eddie Suh MD [address] [facility] [place] [address] Health Maintenance Due Date Last Done Comments [...] Diagnosis Comments INR FINGERSTICK, POINT OF CARE [place] 07/25/2023 2:28 PM EDT documented in this encounter Results * INR FINGERSTICK, POINT OF CARE (07/25/2023 2:28 PM EDT) Fingerstick INR 2.5 INR 2:31 PM EDT [facility] [place] 56-02 Blood 07/25/2023 2:28 PM EDT 07/25/2023 2:31 PM EDT Narrative [facility] 56-02 - 07/25/2023 2:31 PM EDT Therapeutic ranges for non-operative patients: Prophylaxsis/treatment of DVT: (Range:2.0-3.0) Treatment of pulmonary embolism:(Range:2.0-3.0) Prevention of systemic embolism from: -tissue heart valves -acute myocardial infarction -valvular heart disease -atrial fibrillation (Range: 2.0-3.0) Mechanical prosthetic valves: (Range: 2.5-3.5) [facility] Pharmacist1 LAB POINT OF C ARE TEST DOCKED DEVICE UNSOLICITED RESULTS [facility] [place] [facility] [address] documented in this encounter Visit Diagnoses Diagnosis Atrial fibrillation, unspecified type (HCC)- Primary documented in this encounter Advance Directives Latest Code Status on File Code Status Date Activated Date Inactivated Comments Full Code 02/21/2015 7:41 AM 02/21/2015 2:10 PM This order reflects the patients wishes and were consensually agreed upon. Question Answer Comments Discussion of Advance Directives occurred with: Not Discussed Care Teams Roller Painter Relationship Specialty Start Date End Date Chad Phoenix, DO [address] [facility] [address] PCP - General Family Medicine 06/02/18 documented as of this encounter"
--- OUTSIDE RECORDS SUMMARY | 2023-09-13 22:07 | External Medical Summary | Summary of Care ---
Author Name Unknown Organization [facility] Address [address] [facility] [place] [address] Phone [phone] Care Team Providers Care Trailer Chief Name Role Phone Chad Phoenix DO Primary Care Provider [phone] Reason for Referral * Evaluate & Treat - Unlimited Visits (Within 30 days (routine)) - Authorized Specialty Diagnoses / Procedures Referred By Ga huddleston Referred To Contact Podiatry Diagnoses Type 2 diabetes mellitus with hemoglobin A1c goal of less than 8.0% ([facility]) Chad Phoenix DO [address] [facility] [place] [address] Referral ID Status Reason Start Date Expiration Date Visits Requested Visits Authorized [id number] Authorized Specialty Services Required 3 [phone] Question Answer Referral Priority Within 30 days (routine) Where should this appointment be scheduled? [facility] Which condition are you referring this patient for? Diabetic foot care/pain Specific condition? Diabetic Foot care Medicare Patient? Yes Can Patient perform routine footcare without assistance? No Does patient have a chronic condition? Yes Has patient been seen in the past 6 months? Yes Date last seen for chronic condition: 04/05/2023 Who saw patient for chronic condition? Chad Phoenix DO Reason for Visit * Reason Onset Date Comments Referral 07/29/2023 Encounter Details Date Type Department Care Team (Late st Contact Info) Description 07/29/2023 Telephone Family Practice [facility] [address] [place] [address] Chad Phoenix, DO 200 [facility] [place] [address] Referral Allergies Active Allergy Reactions Criticality Noted Date [...] B, by GOLD 2017 classification ([facility]) Inhale 1 Vial via nebulizer every 4 [...] 0 12/20/2022 Active Vitamin D3 1.25 MG (66555 UT) Oral Capsule TAKE 1 CAPSULE BY [...] morning. 90 Tablet 3 02/14/2023 Active Nystatin 310385 UNIT/GM External Powder (Nystop) Apply topically to [...] mitral regurgitation by prior echocardi ogram 10/18/2017 skilled nursing 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 therapy 0 10/18/2017 [...] Resolved Date Coronary artery disease invo lving [place] heart without angina pectoris 04/18/2019 10/29/2019 Chronic [...] Telephone Encounter - Chad Phoenix DO - 07/29/2023 4:44 PM EDT Order signed * Telephone Encounter - DAIN Dumont - 07/29/2023 9:32 AM EDT Due to Medicare guidelines for Podiatry Routine Footcare & Mycotic Nail visits, we will need documented medical necessity for this patient's upcoming appointment on 08/09/2023. A new referral is required every 6 months and must include documented medical necessity for Medicare to pay for these services. Please assist with placing a new referral within Epic. Please see the below link that will outline the appropriate/approved DX codes. Article - Billing and Coding: Routine Foot Care (C65547) (cms.gov) Thank you! Podiatry Scheduling documented in this encounter Plan of Treatment Upcoming Encounters Date Type Department Care Team (Late st Contact Info) Description 08/09/2023 9:20 AM EDT [facility] [place] [address] [place] [address] Bryanna Guzman DPM [address] [place] [address] 09/05/2023 2:20 PM EST Anticoagulation Pharmacy, [facility] [place] [address] [place] [address] Pharmacist1, [facility] [address] [facility] [place] [address] 11/09/2023 3:00 PM EST Office Visit Sleep Disorders Ctr Eran Huertas, [place] [address] [place] [id number] Tess Valdez, [address] [place] [address] 11/11/2023 3:00 PM EST Office Visit [facility] [place] [address] [place] [address] Chad Phoenix, DO [address] [facility] [place] [address] 12/16/2023 11:00 AM EST Cardiac Studies Cardiology, [facility] [place] [address] [place] [address] [facility] [address] [facility] [place] [address] 05/04/2024 3:00 PM EDT Office Visit Nephrology, [facility] [address] [facility] [place] [address] Eddie Suh MD [address] [facility] [place] [address] Scheduled Referrals Name Type Priority Associated Diagnoses [...] as of this encounter Visit Diagnoses Diagnosis Type 2 diabetes mellitus with hemoglobin A1c goal of less than 8.0% ([facility])- Primary documented in this encounter Advance Directives Latest Code Status on File Code Status Date Activated Date Inactivated Comments Full Code 02/21/2015 7:41 AM 02/21/2015 2:10 PM This order reflects the patients wishes and were consensually agreed upon. Question Answer Comments Discussion of Advance Directives occurred with: Not Discussed Care Teams Trailer Chief Relationship Specialty Start Date End Date Chad Phoenix DO [address] [place] [address] PCP - General Family Medicine 06/02/18 documented as of this encounter
--- OUTSIDE RECORDS SUMMARY | 2023-09-13 22:07 | External Medical Summary | Summary of Care ---
Author Name Unknown Organization [facility] Address [address] [facility] [place] [place] [address] Phone [phone] Care Team Providers Care Cement Paver Name Role Phone Chad Phoenix DO Primary Care Provider [phone] Reason for Visit * Reason Onset Date Comments Forms Request 07/19/2023 CMN for Diabetic Shoes Encounter Details Date Type Department Care Team Description 07/19/2023 Telephone Family Practice [facility] [place] [address] [place] [address] Chad Phoenix DO 200 [place] [address] Forms Request (CMN for Diabetic Shoes) Allergies Active Allergy Reactions Severity Noted Date Comments Glipizide 02/18/2021 Dizzy, confusion Penicillins Rash 10/13/2001 documented as of this encounter (statuses as of 07/28/2023) Medications Medication Sig Dispensed Refills Start Date [...] ns:COPD, group B, by GOLD 2017 classification ([facility]) Inhale 1 Vial via nebulizer every 4 hours as needed for Wheezing or Shortness of Breath. 90 mL 3 10/20/2022 Active Furosemide 40 MG Oral Tablet (Lasix)Indications:H eart failure, diastolic, due to HTN ([facility]) Take 1 Tablet by mouth in the [...] 0 12/20/2022 Active Vitamin D3 1.25 MG (15951 UT) Oral Capsule TAKE 1 CAPSULE BY [...] morning. 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 Placed in scanning. * Telephone Encounter - Chad Phoenix DO - 07/26/2023 9:52 AM EDT I'll bring to you * Telephone Encounter - Marina Clarke LPN - 07/25/2023 11:05 AM EDT Form received, placed on Dr. Phoenix's desk for completion. * Telephone Encounter - Mallory Guillen - 07/19/2023 2:17 PM EDT Pt dropped off form for pcp to fill out Please call [phone] when completed to machine operator hop picker Placed in fp mailbox documented in this encounter Plan of Treatment Upcoming Encounters Date Type Specialty Care Team Description 08/09/2023 Office Visit Podiatry Bryanna Guzman DPM [address] [place] [address] 09/05/2023 Anticoagulation Pharmacy Pharmacist1, [facility] [address] [facility] [place] [address] 11/09/2023 Office Visit Sleep Disorders Tess Valdez, DO [address] [place] [address] 11/11/2023 Office Visit Family Medicine Chad Phoenix DO [address] [facility] [place] [address] 12/16/2023 Cardiac Studies Cardiology [facility] [address] [place] [address] 05/04/2024 Office Visit Nephrology Eddie Suh MD [address] [facility] [address] [place] [address] Health Maintenance Due Date Last Done Comments [...] Directives occurred with: Not Discussed Care Teams Cement Paver Relationship Specialty Start Date End Date Chad Phoenix, DO [address] [place] [address] PCP - General Family Medicine 06/02/18 documented as of this encounter
--- OUTSIDE RECORDS SUMMARY | 2023-09-13 22:07 | External Medical Summary | Summary of Care ---
Author Name Unknown Organization [facility] Address [address] [facility] [place] [address] Phone [phone] Care Team Providers Care Chlorinator Name Role Phone LizettChad Jorge Luis GAMEZ Primary Care Provider [phone] Reason for Visit * Reason Comments Dosage Adjustment In Person (Anticoag Cl inic) Encounter Details Date Type Department Care Team Description 06/10/2023 Anticoagulation Pharmacy, [facility] 200 [facility] [place] [address] Pharmacist1, [facility] 200 [facility] [place] [address] Paroxysmal atrial fibrillation (HCC)*; Anticoagulation management encounter; zinc etcher 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 therapy Allergies Active Allergy Reactions Severity Noted Date Comments Glipizide 02/18/2021 Dizzy, confusion Penicillins Rash 10/13/2001 documented as of this encounter (statuses as of 06/10/2023) Medications Medication Sig Dispensed Refills Start Date [...] 2017 classification ([facility]) Inhale 1 Vial via nebulizer every 4 hours as needed for Wheezing or Shortness of Breath. 90 mL 3 10/20/2022 Active Furosemide 40 MG Oral Tablet (Lasix)Indications:H eart failure, diastolic, due to HTN ([facility]) Take 1 Tablet by mouth in the [...] 0 12/20/2022 Active Vitamin D3 1.25 MG (98549 UT) Oral Capsule TAKE 1 CAPSULE BY [...] morning. 90 Tablet 3 02/14/2023 Active Nystatin 752163 UNIT/GM External Powder (Nystop) Apply topically to [...] as of this encounter (statuses as of 06/10/2023) Active Problems Problem Noted Date Nocturnal hypoxemia [...] mitral regurgitation by prior e chocardiogram 10/18/2017 detention 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 t herapy 10/18/2017 [...] as of this encounter (statuses as of 06/10/2023) Resolved Problems Problem Noted Date Resolved Date Coronary artery disease invo lving [place] heart without angina pectoris 04/18/2019 10/29/2019 Chronic [...] 02/28/2012 08/29/2018 Overview: Per CKD protocol #1 detention 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 therapy 0 03/05/2011 [...] as of this encounter (statuses as of 06/10/2023) Immunizations Name Administration Dates Next Due COVID-19 mRNA, LNP-s, No Pre serve, 2-Dose Series (Moderna) 12/09/2020,11/11/2020 Covid-19 Mrna, Lnp-s, No Pre serve, Booster (Moderna) 09/23/2021 H1N1 2009 Influenza, IM 11/18/2009 Pneumococcal Conjugate Vacc, 13 Valent (Prevnar) 12/17/2015 Pneumococcal Polysaccharide PPV23 (Pneumovax) 02/16/2010 Season Influenza, Quad, PF, Adjuvanted, 65+ Yrs, IM (FLUAD) 09/01/2020 Seasonal Influenza, PF, 6 mo ns & Above, IM , (Flulaval) 07/21/2018 Seasonal Influenza, Quadriva lent Hd (Fluzone Hd) [...] Progress Notes * Ritchie Aparicio RPh - 06/10/2023 3:51 PM EDT Medication Therapy Disease Management - Anticoagulation Tori May 1935 Description Pt takes dose in AM Patient Findings Negatives: Signs/symptoms of thrombosis, Signs/symptoms of bleeding, Change in health, Change in alcohol use, Change in activity, Upcoming invasive procedure, Missed doses, Extra doses, Change in medications, Change in diet/appetite, Bruising INR Result As of 06/10/2023 INR goal: 2.0-3.0 INR used for dosin.1 (06/10/2023) Warfarin Plan As of 06/10/2023 Full warfarin instructions: 2.5 mg every Mon, Fri; 5 mg all other days No change documented: Ritchie Aparicio RPh Next INR check: 07/22/2023 Repeat PT/INR in 6 week(s) Weekly dose: not changed Ritchie Menchaca RPh, KARMEN, CDE Clinical Pharmacist Medication Therapy Management Clinic 06/10/2023 3:51 PM documented in this encounter Plan of Treatment Upcoming Encounters Date Type Specialty Care Team Description 07/22/2023 Anticoagulation Pharmacy Pharmacist, [facility] 200 [place] [address] 08/09/2023 Office Visit Podiatry Bryanna Guzman DPM [address] [place] [address] 11/09/2023 Office Visit Sleep Disorders Tess Valdez DO [address] [place] [address] 11/11/2023 Office Visit Family Medicine Chad Phoenix DO [address] [facility] [place], [place] [address] 12/16/2023 Cardiac Studies Cardiology [facility] [address] [facility] [place] [address] 05/04/2024 Office Visit Nephrology Eddie Suh MD [address] [facility] [place] [address] Health Maintenance Due Date Last Done Comments Alpha-1 Antitrypsin 1953 Zoster Vaccines (1 of 2) 1954 COVID-19 Vaccine (4 - Moderna series) 11/18/2021 09/23/2021, 12/09/2020, 11/11/2020 DIABETES-EYE EXAM 01/11/2023 01/11/2022, , 12/17/2019, Additional history exists Depression Screening, Annual for Pts 12 and Over 05/25/2023 05/25/2022 Influenza Vaccine (FLU shot) (#1) 2023 06/30/2022, 07/02/2021, 09/01/2020, Additional history exists HbA1c 10/05/2023 04/05/2023, 10/10, 11/18/2021, Additional history exists Albumin/Creatinine Ratio 10/26/2023 023, 12/08/2021, 02/26/2019, Additional history exists DIABETES-FOOT EXAM 10/26/2023 10/26/2022, 0 11/24/2021, 02/12/2021, Additional history [...] Comments INR FINGERSTICK, POINT OF CARE STAT 06/10/2023 3:28 PM EDT Paroxysmal atrial fibrillation (HCC) Anticoagulation management encounter detention 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 therapy documented in this encounter Results * INR FINGERSTICK, POINT OF CARE (06/10/2023 3:28 PM EDT) Fingerstick INR 2.1 INR 3:29 PM EDT [facility] 56-02 Blood 06/10/2023 3:28 PM EDT 06/10/2023 3:29 PM EDT Narrative [facility] 56-02 - 06/10/2023 3:29 PM EDT Therapeutic ranges for non-operative patients: Prophylaxsis/treatment of DVT: (Range:2.0-3.0) Treatment of pulmonary embolism:(Range:2.0-3.0) Prevention of systemic embolism from: -tissue heart valves -acute myocardial infarction -valvular heart disease -atrial fibrillation (Range: 2.0-3.0) Mechanical prosthetic valves: (Range: 2.5-3.5) Ritchie Menchaca V, [facility] LAB POINT OF CARE TE ST DOCKED DEVICE UNSOLICITED RESULTS [facility] 56-[address] [place] [address] documented in this encounter Visit Diagnoses Diagnosis Paroxysmal atrial fibrillation (HCC)- Primary Atrial fibrillation Anticoagulation management encounter Encounter for therapeutic drug monitoring detention 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 therapy documented in this encounter Advance Directives Latest Code Status on File Code Status Date Activated Date Inactivated Comments Full Code 02/21/2015 7:41 AM 02/21/2015 2:10 PM This order reflects the patients wishes and were consensually agreed upon. Question Answer Comments Discussion of Advance Directives occurred with: Not Discussed Care Teams Chlorinator Relationship Specialty Start Date End Date Chad Phoenix, DO [address] [place] [address] PCP - General Family Medicine 06/02/18 documented as of this encounter
--- OUTSIDE RECORDS SUMMARY | 2023-09-13 22:07 | External Medical Summary | Summary of Care ---
Author Name Unknown Organization [facility] Address [address] [facility] [place] [address] Phone [phone] Care Team Providers Care Director Construction Services Name Role Phone Chad Phoenix DO Primary Care Provider [phone] Reason for Visit * Reason Onset Date Comments Advice 07/22/2023 Encounter Details Date Type Department Care Team Description 07/22/2023 Telephone Family Practice [facility] [place] [address] [facility] [place] [address] Chad Phoenix DO [address] [facility] [place] [address] Advice Allergies Active Allergy Reactions Severity Noted [...] ns:COPD, group B, by GOLD 2017 classification ([facility]) Inhale 1 Vial via nebulizer every 4 hours as needed for Wheezing or Shortness of Breath. 90 mL 3 10/20/2022 Active Furosemide 40 MG Oral Tablet (Lasix)Indications:H eart failure, diastolic, due to HTN ([facility]) Take 1 Tablet by mouth [...] 0 12/20/2022 Active Vitamin D3 1.25 MG (29278 UT) Oral Capsule TAKE 1 CAPSULE BY [...] morning. 90 Tablet 3 02/14/2023 Active Nystatin 674717 UNIT/GM External Powder (Nystop) Apply topically to [...] mitral regurgitation by prior e chocardiogram 10/18/2017 group home 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 t herapy [...] Resolved Date Coronary artery disease invo lving [place] heart without angina pectoris 04/18/2019 10/29/2019 Chronic [...] 02/28/2012 08/29/2018 Overview: Per CKD protocol #1 group home 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 therapy 0 [...] reminded her that we have a physician transportation technician after hours and during the weekend so [...] Anticoagulation Pharmacy Pharmacist1, [facility] [address] [facility] [place] [address] 07/25/2023 Immunization Ancillary Sp, Flu Shot Clinic [address] [facility] [place] [address] 08/09/2023 Office Visit Podiatry Bryanna Guzman DPM [address] [place] [address] 11/09/2023 Office Visit Sleep Disorders Tess Valdez DO [address] [place] [address] 11/11/2023 Office Visit Family Medicine Chad Phoenix DO [address] [facility] [place] [address] 12/16/2023 Cardiac Studies Cardiology [facility] [address] [place] [address] 05/04/2024 Office Visit Nephrology Eddie Suh MD [address] [facility] [place] [address] Health Maintenance Due Date Last Done Comments [...] Directives occurred with: Not Discussed Care Teams Director Construction Services Relationship Specialty Start Date End Date Chad Phoenix, DO [address] [facility] [address] [facility] [place] [address] PCP - General Family Medicine 06/02/18 documented as of this encounter
--- OUTSIDE RECORDS SUMMARY | 2023-09-13 22:08 | External Medical Summary | Summary of Care ---
Author Name Unknown Organization [facility] Address [address] [facility] [place] [address] Phone [phone] Care Team Providers Care Pneumatic Drum Sander Name Role Phone LizettChad Jorge Luis GAMEZ Primary Care Provider [phone] Reason for Visit * Reason Comments Dosage Adjustment In Person (Anticoag Cl inic) Encounter Details Date Type Department Care Team Description 04/05/2023 Anticoagulation Pharmacy, [facility] 200 [place] [address] Pharmacist1, [facility] [address] [facility] [place] [address] Paroxysmal atrial fibrillation (HCC)*; Anticoagulation management encounter; senior care 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 therapy Allergies Active Allergy Reactions Severity Noted Date Comments Glipizide 02/18/2021 Dizzy, confusion Penicillins Rash 10/13/2001 documented as of this encounter (statuses as of 04/05/2023) Medications Medication Sig Dispensed Refills Start Date [...] Dx. E11.9 100 Strip 3 05/04/2021 Active Isosorbide Mononitrate ER 30 MG Oral Tablet Extended Release 24 Hour (Imdur) Take by mouth 1 Tablet in the morning. 90 Tablet 3 04/21/2022 Active Metoprolol Succinate ER 100 MG Oral Tablet Extended Release 24 Hour (toPROL XL) TAKE 1 TABLET BY MOUTH TWICE DAILY 180 Tablet 2 07/12/2022 Active Warfarin Sodium 5 MG Oral Tablet [...] 0 12/20/2022 Active Vitamin D3 1.25 MG (13330 UT) Oral Capsule TAKE 1 CAPSULE BY [...] morning. 90 Tablet 3 02/14/2023 Active Nystatin 011554 UNIT/GM External Powder (Nystop) Apply topically to [...] EVERY MORNING 90 Tablet 1 2023 Active documented as of this encounter (statuses as of 04/05/2023) Active Problems Problem Noted Date Nocturnal hypoxemia [...] mitral regurgitation by prior e chocardiogram 10/18/2017 oil heaterman 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 t herapy 10/18/2017 [...] as of this encounter (statuses as of 04/05/2023) Resolved Problems Problem Noted Date Resolved Date Coronary artery disease invo lving [place] heart without angina pectoris 04/18/2019 10/29/2019 Chronic [...] 02/28/2012 08/29/2018 Overview: Per CKD protocol #1 senior care 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 therapy 0 03/05/2011 [...] as of this encounter (statuses as of 04/05/2023) Immunizations Name Administration Dates Next Due COVID-19 mRNA, LNP-s, No Pre serve, 2-Dose Series (Moderna) 12/09/2020,11/11/2020 Covid-19 Mrna, Lnp-s, No Pre serve, Booster (Moderna) 09/23/2021 H1N1 2009 Influenza, IM 11/18/2009 Pneumococcal Conjugate Vacc, 13 Valent (Prevnar) 12/17/2015 Pneumococcal Polysaccharide PPV23 (Pneumovax) 02/16/2010 Seasonal Influenza, Quadriva lent Hd (Fluzone Hd) 06/30/2022,07/02/2021 Seasonal Influenza, Quadriva lent, No Preserve, 6 Mons & Above, IM 07/21/2018 Seasonal Influenza, Quadriva lent, No Preserve, Adjuvanted, 65+ Yrs, IM 09/01/2020 Seasonal Influenza, Quadriva lent, No Preserve, IM [...] Progress Notes * Ritchie Aparicio RPh - 04/05/2023 2:54 PM EDT Medication Therapy Disease Management - Anticoagulation Tori Medley Yadira 1935 Description Pt takes dose in AM Patient Findings Negatives: Signs/symptoms of thrombosis, Signs/symptoms of bleeding, Change in health, Change in alcohol use, Change in activity, Upcoming invasive procedure, Missed doses, Extra doses, Change in medications, Change in diet/appetite, Bruising INR Result As of 04/05/2023 INR goal: 2.0-3.0 INR used for dosin.2 (04/05/2023) Warfarin Plan As of 04/05/2023 Full warfarin instructions: 2.5 mg every Mon, Fri; 5 mg all other days No change documented: Ritchie Aparicio RPh Next INR check: 04/29/2023 Repeat PT/INR in 4 week(s) Weekly dose: not changed Ritchie Menchaca RPh, KARMEN, CDE Clinical Pharmacist Medication Therapy Management [facility] 04/05/2023 2:59 PM documented in this encounter Plan of Treatment Upcoming Encounters Date Type Specialty Care Team Description 04/05/2023 Office Visit Family Medicine Chad Phoenix DO [address] [place] [address] Arrived 04/29/2023 Anticoagulation Pharmacy Pharmacist1, [facility] [address] [place] [address] 04/29/2023 Office Visit Nephrology Eddie Suh MD [address] [place] [address] 05/05/2023 Office Visit Podiatry Bryanna Guzman DPM [address] [place] [address] 11/09/2023 Office Visit Sleep Disorders Tess Valdez DO [address] [place] [address] 12/16/2023 Cardiac Studies Cardiology [facility] [address] [place] [address] Health Maintenance Due Date Last Done Comments Alpha-1 Antitrypsin 1953 Zoster Vaccines (1 of 2) 1954 COVID-19 Vaccine (4 - Moderna series) 11/18/2021 09/23/2021, 12/09/2020, 11/11/2020 DIABETES-EYE EXAM 01/11/2023 01/11/2022, , 12/17/2019, Additional history exists TSH 04/14/2023 04/14/2022, 03/12, 11/18/2021, Additional history exists HbA1c 04/19/2023 10/20/2022, 02/0 06/2022, 05/21/2021, Additional history exists Depression Screening, Annual for Pts 12 and Over 05/25/2023 05/25/2022 Albumin/Creatinine Ratio 10/26/2023 023, 12/08/2021, 02/26/2019, Additional history exists DIABETES-FOOT EXAM 10/26/2023 10/26/2022, 0 11/24/2021, 02/12/2021, Additional history exists O2 ASSESSMENT COMPLETED IN PAST YEAR FOR COPD 02/22/2024 02/21/2023 DTaP,Tdap,and Td Vaccines (2 - Td or Tdap) 09/02/2024 09/02/2014 Pneumococcal Vaccine: 65+ Years Completed 12/17/2015, 02/16/2010 Influenza Vaccine (FLU shot) Completed , 07/02/2021, 09/01/2020, Additional history exists GARDASIL-HPV IMMUNIZATION SERIES Aged [...] Comments INR FINGERSTICK, POINT OF CARE STAT 04/05/2023 2:57 PM EDT Paroxysmal atrial fibrillation (HCC) Anticoagulation management encounter senior care 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 therapy documented in this encounter Results * INR FINGERSTICK, POINT OF CARE (04/05/2023 2:57 PM EDT) Fingerstick INR 2.2 INR 2:58 PM EDT [facility] Blood 04/05/2023 2:57 PM EDT 04/05/2023 2:58 PM EDT Narrative [facility] - 04/05/2023 2:58 PM EDT Therapeutic ranges for non-operative patients: Prophylaxsis/treatment of DVT: (Range:2.0-3.0) Treatment of pulmonary embolism:(Range:2.0-3.0) Prevention of systemic embolism from: -tissue heart valves -acute myocardial infarction -valvular heart disease -atrial fibrillation (Range: 2.0-3.0) Mechanical prosthetic valves: (Range: 2.5-3.5) Ritchie Menchaca V, [facility] POINT OF CARE TE ST DOCKED DEVICE UNSOLICITED RESULTS [facility] [place] [address] documented in this encounter Visit Diagnoses Diagnosis Paroxysmal atrial fibrillation (HCC)- Primary Atrial fibrillation Anticoagulation management encounter Encounter for therapeutic drug monitoring oil heaterman 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 therapy documented in this encounter Advance Directives Latest Code Status on File Code Status Date Activated Date Inactivated Comments Full Code 02/21/2015 7:41 AM 02/21/2015 2:10 PM This order reflects the patients wishes and were consensually agreed upon. Question Answer Comments Discussion of Advance Directives occurred with: Not Discussed Care Teams Pneumatic Drum Sander Relationship Specialty Start Date End Date Chad Phoenix, DO [address] [place] [address] PCP - General Family Medicine 06/02/18 documented as of this encounter
--- OUTSIDE RECORDS SUMMARY | 2023-09-13 22:08 | External Medical Summary | Summary of Care ---
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 Operator Name Role Phone JorgitoChad hager Primary Care Provider [phone] Reason for Visit * Reason Comments Chronic Kidney Disease (CKD) Encounter Details Date Type Department Care Team Description 04/29/2023 Office Visit Nephrology, [facility] [address] [place] [address] Eddie Suh MD [address] [place] [address] Stage 3b chronic kidney disease (HCC)*; Heart failure, diastolic, due to HTN (HCC); HTN, goal below 150/90 Allergies Active Allergy Reactions Severity Noted Date Comments Glipizide 02/18/2021 Dizzy, confusion Penicillins Rash 10/13/2001 documented as of this encounter (statuses as of 04/29/2023) Medications Medication Sig Dispensed Refills Start Date [...] the morning. 90 Tablet 3 04/21/2022 Active Warfarin Sodium 5 MG Oral Tablet (Jantoven)Indication s:Persistent atrial fibrillation (HCC) take 1/2 a tablet TO 1 tablet daily or as directed 90 Tablet 3 08/20/2022 Active Albuterol Sulfate (2.5 MG/3ML) 0.083% Inhalation Nebulization Solution (Proventil)Indicatio ns:COPD, group B, by GOLD 2017 classification ([facility]) Inhale 1 Vial via nebulizer every 4 hours as needed for Wheezing or Shortness of Breath. 90 mL 3 10/20/2022 Active Furosemide 40 MG Oral Tablet (Lasix)Indications:H eart failure, diastolic, due to HTN ([facility]) Take 1 Tablet by mouth [...] 0 12/20/2022 Active Vitamin D3 1.25 MG (62692 UT) Oral Capsule TAKE 1 CAPSULE BY [...] morning. 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 t herapy 10/18/2017 [...] as of this encounter (statuses as of 04/29/2023) Resolved Problems Problem Noted Date Resolved Date Coronary artery disease invo lving [place] heart without angina pectoris 04/18/2019 10/29/2019 Chronic [...] 02/28/2012 08/29/2018 Overview: Per CKD protocol #1 interceptor operator 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 therapy 0 03/05/2011 [...] as of this encounter (statuses as of 04/29/2023) Immunizations Name Administration Dates Next Due COVID-19 [...] on file documented as of this encounter Last Filed Vital Signs Vital Sign Reading Time Taken Comments Blood Pressure 149/83 04/29/2023 9:55 AM EDT Pulse 63 04/29/2023 9:55 AM EDT Temperature 36.1 C (96.9 F) 04/29/2023 9:55 AM ED T Respiratory Rate - - Oxygen Saturation - - Inhaled Oxygen Concentration - - Weight 79.6 kg (175 lb 6.4 oz) 04/29/2023 9:55 A M EDT Height - - Body Mass Index 36.66 04/11/2023 9:26 AM EDT documented in this encounter Progress Notes * Eddie Suh MD - 04/29/2023 9:59 AM EDT REASON FOR CALL: CKD HPI: Tori May is a 88 year old female called in follow-up for ckd 3. She has type DM for over 10yrs, no retinopathy but has neuropathy. She has had HTN for over 10yrs.She has had CKD stage 3 since 29/08 with the baseline creatinine between 1 and 1.4. There was a big jump in her creatinine in May 2018 with the creatinine between 1.8-2.2 around the time she was admitted at [facility] from 05/25 to 05/29 for CHF exacerbation. Since Last office visit in 09/2022---doing very good since last visit. No hospital admission emergency department visit or major issue with congestive heart failure. Currently no major edema no major shortness of breath orthopnea or PND. Blood pressure is not low anymore after lowering the dose of Lasix September 2022. No new medication Past Medical History: Diagnosis Date Asthma, allergic Atrial fibrillation (HCC) 03/05/2011 Cardiac pacemaker in situ 06/23/2017 CARDIOVAS SYS SYMP NEC-carotid bruit 11/30/2002 CPAP (continuous positive airway pressure) dependence setting 4 DM type 2, goal A1C 7-8 03/04/2014 Dyslipidemia, goal LDL below 160 Gastric ulcer Heart failure, diastolic, due to HTN ([facility]) 12/30/2014 Hypertensive heart disease with diastolic heart failure and stage 3 chronic kidney disease ([facility]) 05/16/2018 Hypothyroidism clinically euthyroid KIDNEY DISEASE, CHRONIC, STAGE III (GFR 30-59 ML/MIN) 02/28/2012 Per CKD protocol #1 interceptor operator 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 therapy 10/18/2017 ICD-10 update of inactive term Moderate mitral regurgitation by prior echocardiogram 10/18/2017 Obesity, BMI not known 11/30/2002 Paroxysmal SVT (supraventricular tachycardia) ([facility]) 11/30/2002 Paroxysmal SVT (supraventricular tachycardia) ([facility]) 11/30/2002 Tachycardia associated with angina Review of Systems: General ROS: negative for - chills or fever Psychological ROS: negative for - mood swings ENT ROS: negative for - nasal congestion or nasal discharge Endocrine ROS: negative Respiratory ROS: no cough, shortness of breath, or wheezing Cardiovascular ROS: no chest pain or dyspnea on exertion Gastrointestinal ROS: no abdominal pain, change in bowel habits, or black or bloody stools Genito-Urinary ROS: no dysuria, trouble voiding, or hematuria Musculoskeletal ROS: negative for - muscle pain Neurological ROS: no TIA or stroke symptoms Dermatological ROS: negative for rash Family History Problem Relation Age of Onset Mental Disorder Mother dementia Cancer Mother breast Social History Socioeconomic History Marital status: Spouse name: Rusty Number of children: 3 Years of education: 16 Highest education level: Not on file Occupational History Occupation: retired Social Needs Financial resource strain: Not on file Food insecurity Worry: Not on file Inability: Not on file Transportation needs Medical: Not on file Non-medical: Not on file Tobacco Use Smoking status: Never Smoker Smokeless tobacco: Never Used Substance and Sexual Activity Alcohol use: Yes Comment: occasional Drug use: No Sexual activity: Yes Partners: Male Lifestyle Physical activity Days per week: Not on file Minutes per session: Not on file Stress: Not on file Relationships Social connections Talks on phone: Not on file Gets together: Not on file Attends jain service: Not on file Active member of club or organization: Not on file Attends meetings of clubs or organizations: Not on file Relationship status: Not on file Intimate partner violence Fear of current or ex partner: Not on file Emotionally abused: Not on file Physically abused: Not on file Forced sexual activity: Not on file Other Topics Concern Service Not Asked Blood Transfusions Yes Caffeine Concern Not Asked Occupational Exposure Not Asked Hobby Hazards Not Asked Sleep Concern Not Asked Stress Concern Not Asked Weight Concern Not Asked Special Diet Not Asked Back Care Not Asked Exercise Not Asked Bike Helmet Not Asked Seat Belt Yes Self-Exams Not Asked Social History Narrative Not on file Vaping/E-Cigarette Use Vaping/E-Cigarette Use Never User Passive Exposure No Counseling Given? No Vaping/E-Cigarette Substances Nicotine No Other No Flavoring No THC No Cannabidiol (CBD) No Vaping/E-Cigarette Devices Disposable No Pre-filled or Refillable Cartridge No Refillable Tank No Pre-filled Pod No Current Outpatient Medications Medication Sig Dispense Refill [...] once daily Dx. E11.9 100 Strip 3 Isosorbide Mononitrate ER 30 MG Oral Tablet Extended Release 24 Hour (Imdur) Take by mouth 1 Tablet in the morning. 90 Tablet 3 Warfarin Sodium 5 MG Oral Tablet [...] 1 Each 0 Vitamin D3 1.25 MG (53141 UT) Oral Capsule TAKE 1 CAPSULE BY MOUTH ONCE WEEKLY 12 Capsule 0 dilTIAZem HCl ER 240 MG Oral Capsule Extended Release 24 Hour TAKE 1 CAPSULE BY MOUTH ONCE DAILY 90 Capsule 3 Rosuvastatin Calcium 20 MG Oral Tablet (Crestor) TAKE 1 TABLET BY MOUTH ONCE DAILY 90 Tablet 1 Montelukast Sodium 10 MG Oral Tablet (Singulair) Take 1 Tablet by mouth in the morning. 90 Tablet 3 Nystatin 501101 UNIT/GM External Powder (Nystop) Apply topically to affected area 3 times a day. Apply to underside of L breast 15 g 3 Levothyroxine Sodium 75 MCG Oral Tablet (Levoxyl) TAKE 1 TABLET BY MOUTH EVERY MORNING AT LEAST30 MINUTES PRIOR TO BREAKFAST OR OTHER MEDICATIONS 90 Tablet 1 Januvia 50 MG Oral Tablet TAKE ONE TABLET BY MOUTH EVERY MORNING 90 Tablet 1 Metoprolol Succinate ER 100 MG Oral Tablet Extended Release 24 Hour (toPROL XL) TAKE 1 TABLET BY MOUTH TWICE DAILY 180 Tablet 3 No current facility-administered medications for this visit. BP 149/83 (BP Site: Right Arm, BP Position: Sitting, BP Cuff Size: Regular) | Pulse 63 | Temp 36.1 C (96.9 F) (Tympanic) | Wt 79.6 kg (175 lb 6.4 oz) | BMI 36.66 kg/m | BSA 1.8 m Awake alert No respiratory distress Normal accurate speech Chest bilateral clear to auscultation CVS S1-S2 regular soft systolic murmur heard Abdomen is soft non tender Extremities shows 1+ edema bilateral LABS/STUDIES: NEPH-FLOW Latest Ref Rng & Units 10/01/2020 10/14/2020 11/05/2020 Bun 6 - 20 mg/dL 29 (H) 29 (H) 28 (H) Cr 0.5 - 1.0 mg/dL 1.7 (H) 1.8 (H) 1.6 (H) eGFR >60 mL/min eGFR >60 27.0 (L) 26.1 (L) 29.8 (L) K 3.5 - 5.1 mmol/L 4.1 4.6 4.5 Hb 12.0 - 15.3 g/dL 8.7 (L) 10.0 (L) 10.4 (L) Microalb/cr ratio <30 mg/g creat NEPH-FLOW Latest Ref Rng & Units 10/14/2020 11/05/2020 02/12/2021 Bun 6 - 20 mg/dL 29 (H) 28 (H) 25 (H) Cr 0.5 - 1.0 mg/dL 1.8 (H) 1.6 (H) 1.3 (H) eGFR >=60.0 mL/min 36.5 (L) eGFR >60 26.1 (L) 29.8 (L) K 3.5 - 5.1 mmol/L 4.6 4.5 4.5 Hb 12.0 - 15.3 g/dL 10.0 (L) 10.4 (L) 12.3 Microalb/cr ratio <30 mg/g creat ASSESSMENT AND PLAN Stage 3b chronic kidney disease (HCC) (Primary) Patient with the CKD stage 3 to 4 likely due to longstanding diabetes and hypertension. Her electrolytes are stable and volume status is acceptable. Labs done March 2023 was reviewed and shows a creatinine of 1.4 GFR of 37 which is right within her baseline. No need of labs today. Denies any complaints. Blood pressure is not low anymore after lowering of the Lasix. It also seems she is no longer on lisinopril Heart failure, diastolic, due to HTN (HCC) blood pressure continue Lasix to 40 twice daily. Blood pressure is not low anymore after lowering the dose of Lasix. She does have some edema but major part of it is related with obesity/lymphedema/venous insufficiency HTN, goal below 150/90 Blood pressure is at goal. Continue same Follow Up: Return in about 1 year (around 04/29/2024) for Clinic Visit. | For: Clinic Visit Eddie Suh MD documented in this encounter Nursing Notes * Lucille Childress LPN - 04/29/2023 9:54 AM EDT Return patient- no recent illness or hospitalizations. Pt stated no swelling in legs. Pt stated no concerns at this time. documented in this encounter Plan of Treatment Upcoming Encounters Date Type Specialty Care Team Description 05/05/2023 Office Visit Podiatry Bryanna Guzman, DUSTYM [address] [place] [address] 06/10/2023 Anticoagulation Pharmacy Pharmacist1, [facility] [address] [facility] [place] [place] [address] 11/09/2023 Office Visit Sleep Disorders Tess Valdez, DO [address] [place] [address] 11/11/2023 Office Visit Family Medicine Chad Phoenix, DO [address] [place] [address] 12/16/2023 Cardiac Studies Cardiology [facility] [address] [place] [address] 05/04/2024 Office Visit Nephrology Eddie Suh MD [address] [place] [address] Health Maintenance Due Date Last Done Comments [...] 10/10, 11/18/2021, Additional history exists Albumin/Creatinine Ratio 10/26/20232 023, 12/08/2021, 02/26/2019, Additional history exists DIABETES-FOOT [...] as of this encounter Visit Diagnoses Diagnosis Stage 3b chronic kidney disease (HCC)- Primary Heart failure, diastolic, due to HTN (HCC) Unspecified hypertensive heart disease with heart failure HTN, goal below 150/90 documented in this encounter Advance Directives Latest Code Status on File Code Status Date Activated Date Inactivated Comments Full Code 02/21/2015 7:41 AM 02/21/2015 2:10 PM This order reflects the patients wishes and were consensually agreed upon. Question Answer Comments Discussion of Advance Directives occurred with: Not Discussed Care Teams Diesel Power Shovel Operator Relationship Specialty Start Date End Date Chad Phoenix, DO [address] [place] [address] PCP - General Family Medicine 06/02/18 documented as of this encounter"
--- OUTSIDE RECORDS SUMMARY | 2023-09-13 22:08 | External Medical Summary ---
Author Name Unknown Address Unknown Organization K01:LABORATORY [facility] - [address] [facility] [address] Laboratory Report Ordering Provider Test Date Status KALPESH DONG 04/05/2023 15:46:56 Final Observation Date Value Abnormality Reference (Units ) Status TSH 04/05/2023 15:46:56 3.16 0.27-4.20 (uIU/mL) Final Performing Location LABORATORY [facility] - [address] [place] [address]
--- OUTSIDE RECORDS SUMMARY | 2023-09-13 22:08 | External Medical Summary | Summary of Care ---
Author Name Unknown Organization [facility] Address [address] [facility] [place] [address] Phone [phone] Care Team Providers Care Website Project Manager Name Role Phone Bruce Phoenixe Jorge Luis GAMEZ Primary Care Provider [phone] Reason for Visit * Reason Comments Outpatient Testing Encounter Details Date Type Department Care Team Description 04/05/2023 Laboratory [facility] [place] [address] [place] [address] [facility] [address] [place] [id number] Encounter for long-term (current) use of medications; Type 2 diabetes mellitus with hemoglobin A1c goal of less than 8.0% ([facility]); Acquired hypothyroidism Allergies Active Allergy Reactions Severity Noted Date [...] ns:COPD, group B, by GOLD 2017 classification ([facility]) Inhale 1 Vial via nebulizer every [...] 0 12/20/2022 Active Vitamin D3 1.25 MG (92235 UT) Oral Capsule TAKE 1 CAPSULE BY [...] morning. 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 [...] Resolved Date Coronary artery disease invo lving [place] heart without angina pectoris 04/18/2019 10/29/2019 Chronic [...] CKD protocol #1 half-way 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 therapy 0 03/05/2011 [...] Encounters Date Type Specialty Care Team Description 04/29/2023 [facility]ticoagulation [facility] [place] [address] 04/29/2023 Office Visit Nephrology Eddie Suh MD 200 [facility] [place] [address] 05/05/2023 Office Visit Podiatry Bryanna Guzman DPM [address] [place] [address] 11/09/2023 Office Visit Sleep Disorders Tess Valdez DO [address] [place] [address] 11/11/2023 Office Visit Family Medicine Chad Phoenix DO [address] [place] [address] 12/16/2023 Cardiac Studies Cardiology Dom [facility] [address] [place] [address] Pending Results Name Type Priority Associated Diagnoses Date /Time VITAMIN B12 Lab Routine Encounter for long-term (current) use of medications 04/05/2023 3:46 PM EDT HEMOGLOBIN A1C Lab Routine Type 2 diabetes mellitus with hemoglobin A1c goal of less than 8.0% ([facility]) 04/05/2023 3:46 PM EDT TSH WITH FREE T4 IF INDICATED Lab Routine Acquired hypothyroidism 04/05/2023 3:46 PM EDT BASIC METABOLIC PANEL Lab Routine Type 2 diabetes mellitus with hemoglobin A1c goal of less than 8.0% ([facility]) 04/05/2023 3:46 PM EDT Health Maintenance Due Date Last Done Comments Alpha-1 Antitrypsin 1953 Zoster Vaccines (1 of 2) 1954 COVID-19 Vaccine (4 - Moderna series) 11/18/2021 09/23/2021, 12/09/2020, 11/11/2020 DIABETES-EYE EXAM 01/11/2023 01/11/2022, , 12/17/2019, Additional history exists TSH 04/14/2023 04/14/2022, 03/12, 11/18/2021, Additional history exists HbA1c 04/19/2023 10/20/2022, 0206/2022, 05/21/2021, Additional history exists Depression Screening, Annual [...] Diagnosis Encounter for long-term (current) use of medications Encounter for long-term (current) use of other medications Type 2 diabetes mellitus with hemoglobin A1c goal of less than 8.0% ([facility]) Acquired hypothyroidism Unspecified hypothyroidism documented in this encounter Advance Directives Latest Code Status on File Code Status Date Activated Date Inactivated Comments Full Code 02/21/2015 7:41 AM 02/21/2015 2:10 PM This order reflects the patients wishes and were consensually agreed upon. Question Answer Comments Discussion of Advance Directives occurred with: Not Discussed Care Teams Website Project Manager Relationship Specialty Start Date End Date Chad Phoenix, DO 200 [place] [address] PCP - General Family Medicine 06/02/18 documented as of this encounter
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
--- OUTSIDE RECORDS SUMMARY | 2023-09-13 22:08 | External Medical Summary | Summary of Care ---
Author Name Unknown Organization [facility] Address [address] [facility] [place] [address] Phone [phone] Care Team Providers Care Integrity Manager Name Role Phone Letitia Posey DO Primary Care Provider [phone] Reason for Visit * Reason Comments eRx-Medication Refill Encounter Details Date Type Department Care Team Description 04/13/2023 Refill General Internal Medicine [facility] [place] 200 [facility] [place] [address] Letitia Posey DO 200 [place] [address] Allergies Active Allergy Reactions Severity Noted Date Comments Glipizide 02/18/2021 Dizzy, confusion Penicillins Rash 10/13/2001 documented as of this encounter (statuses as of 04/14/2023) Medications Medication Sig Dispensed Refills Start Date [...] Dx. E11.9 100 Strip 3 1 Active Isosorbide Mononitrate ER 30 MG Oral Tablet Extended Release 24 Hour (Imdur) Take by mouth 1 Tablet in the morning. 90 Tablet 3 2 Active Warfarin Sodium 5 MG Oral Tablet (Jantoven)Indicatio ns:Persistent atrial fibrillation (HCC) take 1/2 a tablet TO 1 tablet daily or as directed 90 Tablet 3 2 Active Albuterol Sulfate (2.5 MG/3ML) 0.083% Inhalation Nebulization Solution (Proventil)Indicati ons:COPD, group B, by GOLD 2017 classification ([facility]) Inhale 1 Vial via nebulizer every 4 hours as needed for Wheezing or Shortness of Breath. 90 mL 3 3 Active Furosemide 40 MG Oral Tablet (Lasix)Indications: Heart failure, diastolic, due to HTN ([facility]) Take 1 Tablet by mouth in the [...] 0 3 Active Vitamin D3 1.25 MG (56862 UT) Oral Capsule TAKE 1 CAPSULE BY MOUTH ONCE WEEKLY 12 Capsule 0 3 Active dilTIAZem HCl ER 240 MG Oral Capsule Extended Release 24 HourIndications:Rboy gstanding persistent atrial fibrillation (HCC) TAKE 1 CAPSULE BY MOUTH ONCE DAILY 90 Capsule 3 3 Active Rosuvastatin Calcium 20 MG Oral Tablet (Crestor) TAKE 1 TABLET BY MOUTH ONCE DAILY 90 Tablet 1 3 Active Montelukast Sodium 10 MG Oral Tablet (Singulair) Take 1 Tablet by mouth in the morning. 90 Tablet 3 3 Active Nystatin 412594 UNIT/GM External Powder (Nystop) Apply topically to affected area 3 times a day. Apply to underside of L breast 15 g 3 3 Active Levothyroxine Sodium 75 MCG Oral Tablet (Levoxyl)Indication s:Acquired hypothyroidism TAKE 1 TABLET BY MOUTH EVERY MORNING AT LEAST 30 MINUTES PRIOR TO BREAKFAST OR OTHER MEDICATIONS 90 Tablet 1 3 Active Januvia 50 [...] TWICE DAILY 180 Tablet 3 3 Active Metoprolol Succinate ER 100 MG Oral Tablet Extended Release 24 Hour (toPROL XL) TAKE 1 TABLET BY MOUTH TWICE DAILY 180 Tablet 2 2 04/14/20 23 Discontinued documented as of this encounter (statuses as of 04/14/2023) Active Problems Problem Noted Date Nocturnal hypoxemia [...] mitral regurgitation by prior e chocardiogram 10/18/2017 correction 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 t herapy 10/18/2017 [...] as of this encounter (statuses as of 04/14/2023) Resolved Problems Problem Noted Date Resolved Date Coronary artery disease invo lving [place] heart without angina pectoris 04/18/2019 10/29/2019 Chronic [...] 02/28/2012 08/29/2018 Overview: Per CKD protocol #1 correction 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 therapy 0 03/05/2011 [...] as of this encounter (statuses as of 04/14/2023) Immunizations Name Administration Dates Next Due COVID-19 [...] encounter Miscellaneous Notes * Telephone Encounter - Aleyda Chang sonja - 04/14/2023 1:49 PM EDT Signed Prescriptions: Disp Refills Metoprolol Succinate ER 100 MG Oral Tablet*180 Ta*3 Sig: TAKE 1 TABLET BY MOUTH TWICE DAILYAuthorizing Provider: LETITIA POSEY User: ALEYDA CHANG documented in this encounter Plan of Treatment Upcoming Encounters Date Type Specialty Care Team Description 04/29/2023 [facility] Pharmacy Pharmacist1, [facility] [address] [place] [address] 04/29/2023 Office Visit Nephrology Eddie Suh MD 200 [place] [address] 05/05/2023 Office Visit Podiatry Bryanna Guzman DPM [address] [place] [address] 11/09/2023 Office Visit Sleep Disorders Tess Valdez DO [address] [place] [address] 11/11/2023 Office Visit Family Medicine Letitia Posey, DO 200 [facility] [place] [address] 12/16/2023 [facility] 132 [facility] [place] [address] Health Maintenance Due Date Last Done Comments [...] Directives occurred with: Not Discussed Care Teams Integrity Manager Relationship Specialty Start Date End Date Letitia Posey, DO 200 [facility] [place] [address] PCP - General Family Medicine 06/02/18 documented as of this encounter
--- OUTSIDE RECORDS SUMMARY | 2023-09-13 22:08 | External Medical Summary | Summary of Care ---
Author Name Unknown Organization [facility] Address [address] [facility] [place] [address] Phone [phone] Care Team Providers Care Supervising Film Or Videotape Editor Name Role Phone LizettChad Jorge Luis GAMEZ Primary Care Provider [phone] Reason for Visit * Reason Comments Acute Large bruise on her butt. Encounter Details Date Type Department Care Team Description 04/11/2023 Office Visit Family Practice [facility] [place] 200 [facility] [place] [address] Gaby Holland PA-C 200 [facility] [place] [address] Traumatic hematoma of buttock, initial encounter*; Fall, initial encounter Allergies Active Allergy Reactions Severity Noted Date [...] B, by GOLD 2017 classification ([facility]) Inhale 1 Vial via nebulizer every 4 hours as needed for Wheezing or Shortness of Breath. 90 mL 3 10/20/2022 Active Furosemide 40 MG Oral Tablet (Lasix)Indications:H eart failure, diastolic, due to HTN ([facility]) Take 1 Tablet by mouth in [...] 0 12/20/2022 Active Vitamin D3 1.25 MG (26483 UT) Oral Capsule TAKE 1 CAPSULE BY [...] morning. 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 t herapy 10/18/2017 [...] Resolved Date Coronary artery disease invo lving [place] heart without angina pectoris 04/18/2019 10/29/2019 Chronic [...] 02/28/2012 08/29/2018 Overview: Per CKD protocol #1 long-term 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 therapy 0 03/05/2011 [...] Sign Reading Time Taken Comments Blood Pressure 120/62 04/11/2023 9:26 AM EDT Pulse 91 04/11/2023 9:26 AM EDT Temperature 36.3 C (97.3 F) 04/11/2023 9:26 AM ED T Respiratory Rate 16 04/11/2023 9:26 AM EDT Oxygen Saturation 94% 04/11/2023 9:26 AM EDT Inhaled Oxygen Concentration - - Weight 78.9 kg (174 lb 0.6 oz) 04/11/2023 9:26 A M EDT Height 147.3 cm (4' 10") 04/11/2023 9:26 AM EDT Body Mass Index 36.37 04/11/2023 9:26 AM EDT documented in this encounter Progress Notes * Gaby Holland PA-C - 04/11/2023 9:50 AM EDT Subjective Tori May is a 88 year old female that presents for Acute (Large bruise on her butt. ) 88 y/o female presents c/o bruise on her left buttock. Pt states she feel 6/26 at night, unsure howshe fell or how she landed. She denies pain, but states she has a purple butt cheek now. She is on coumadin. She denies weakness, numbness, tingling, pain. States there is a "lump" in the butt cheek now that is somewhat tender. She has some bruising on the left side of her head that is yellow colore d. Allergies and medications reviewed. Objective BP 120/62 | Pulse 91 | Temp 36.3 C (97.3 F) (Tympanic) | Resp 16 | Ht 1.473 m (4' 10") | Wt 78.9 kg (174 lb 0.6 oz) | SpO2 94% | BMI 36.37 kg/m | BSA 1.8 m Body mass index is 36.37 kg/m. BP Readings from Last 3 Encounters: 04/11/23 120/62 04/05/23 120/60 03/08/23 134/64 Wt Readings from Last 3 Encounters: 04/11/23 78.9 kg (174 lb 0.6 oz) 04/05/23 80.1 kg (176 lb 9.6 oz) 03/08/23 81.6 kg (179 lb 12.8 oz) Physical Exam Vitals and nursing note reviewed. Constitutional: General: She is not in acute distress. Appearance: Normal appearance. HENT: Head: Normocephalic and atraumatic. Eyes: General: No scleral icterus. Extraocular Movements: Extraocular movements intact. Conjunctiva/sclera: Conjunctivae normal. Pupils: Pupils are equal, round, and reactive to light. Cardiovascular: Rate and Rhythm: Normal rate. Pulmonary: Effort: Pulmonary effort is normal. Skin: General: Skin is warm and dry. Comments: The entire left gluteal cheek is purple with ecchymosis with yellow along the edges. There is a palpable, tender lump in the middle of the butt cheek that is not warm. The hip, low back arenon-tender to palpation. Neurological: General: No focal deficit present. Mental Status: She is alert and oriented to person, place, and time. Psychiatric: Mood and Affect: Mood normal. Behavior: Behavior normal. Assessment and plan 1. Traumatic hematoma of buttock, initial encounter -xrays ordered to r/o undelrying trauma -likely severe bruising due to coumadin use -self limiting, will heal with time -rest, heat -tylenol as needed for pain -to ER with acute worsening symptoms - - XR HIP UNILAT 2-3 VIEWS INCLUDING AP PELVIS - XR L SPINE AP AND LATERAL 2. Fall, initial encounter Follow up Follow-up: Return if symptoms worsen or fail to improve. | Check-out note: As needed and as scheduled Xray today Total time today including reviewing chart before the visit, pertinent labs, imaging reports, face to face time, and documentation time was 25 minutes. The above was discussed and understanding was expressed. Gaby Holland PA-C documented in this encounter Nursing Notes * Paula Martines LPN - 04/11/2023 9:24 AM EDT Patient presents today for a purple black and blue seymour on her entire left butt check. She just noticed it last night. She did fall on the but hasn't noticed anything before now. documented in this encounter Plan of Treatment Upcoming Encounters Date Type Specialty Care Team Description 04/29/2023 Anticoagulation Pharm[facility] Pharmacist1, [facility] [place] [address] 04/29/2023 Office Visit Nephrology Eddie Suh MD [address] [facility] [address] [place] [address] 05/05/2023 Office Visit Podiatry Bryanna Guzman DPM [address] [place] [address] 11/09/2023 Office Visit Sleep Disorders Tess Valdez, [address] [place] [address] 11/11/2023 Office Visit Family Medicine Chad Phoenix DO 200 [facility] [place] [address] 12/16/2023 Cardiac Studies Cardiology Dom Perez [facility] [address] [place] [address] Pending Results Name Type Priority Associated Diagnoses Date /Time XR HIP UNILAT 2-3 VIEWS INCLUDING AP PELVIS Medical Imaging Routine Traumatic hematoma of buttock, initial encounter 04/11/2023 9:50 AM EDT XR L SPINE AP AND LATERAL Medical Imaging Routine Traumatic hematoma of buttock, initial encounter 04/11/2023 9:50 AM EDT Health Maintenance Due Date Last Done [...] COMPLETED IN PAST YEAR FOR COPD 04/05/2024 04/05/2023 TSH 04/05/2024 04/05/2023, 07/0 03/2022, 04/08/2022, Additional [...] as of this encounter Visit Diagnoses Diagnosis Traumatic hematoma of buttock, initial encounter- Primary Fall, initial encounter documented in this encounter Advance Directives Latest Code Status on File Code Status Date Activated Date Inactivated Comments Full Code 02/21/2015 7:41 AM 02/21/2015 2:10 PM This order reflects the patients wishes and were consensually agreed upon. Question Answer Comments Discussion of Advance Directives occurred with: Not Discussed Care Teams Supervising Film Or Videotape Editor Relationship Specialty Start Date End Date Chad Phoenix, DO 200 [place] [address] PCP - General Family Medicine 06/02/18 documented as of this encounter
--- OUTSIDE RECORDS SUMMARY | 2023-09-13 22:08 | External Medical Summary | Summary of Care ---
Author Name Unknown Organization [facility] Address [address] [place] [address] Phone [phone] Care Team Providers Care Golf Player Assistant Name Role Phone TashiaChad godfrey Jorge Luis GAMEZ Primary Care Provider [phone] Reason for Visit * Reason Comments Dosage Adjustment In Person (Anticoag Cl inic) Encounter Details Date Type Department Care Team Description 04/29/2023 Anticoagulation Pharmacy, [facility] [address] [facility] [place] [address] Pharmacist1, [facility] [address] [facility] [address] Paroxysmal atrial fibrillation (HCC)* Allergies Active Allergy Reactions Severity Noted [...] ns:COPD, group B, by GOLD 2017 classification ([facility]) Inhale 1 Vial via nebulizer every 4 hours as needed for Wheezing or Shortness of Breath. 90 mL 3 10/20/2022 Active Furosemide 40 MG Oral Tablet (Lasix)Indications:H eart failure, diastolic, due to HTN ([facility]) Take 1 Tablet by mouth in the [...] 0 12/20/2022 Active Vitamin D3 1.25 MG (55025 UT) Oral Capsule TAKE 1 CAPSULE BY [...] morning. 90 Tablet 3 02/14/2023 Active Nystatin 119730 UNIT/GM External Powder (Nystop) Apply topically to [...] mitral regurgitation by prior e chocardiogram 10/18/2017 terminologist 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 t herapy 10/18/2017 [...] 02/28/2012 08/29/2018 Overview: Per CKD protocol #1 [facility] 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 therapy 0 03/05/2011 [...] Progress Notes * Ritchie Aparicio RPh - 04/29/2023 9:44 AM EDT Medication Therapy Disease Management - Anticoagulation Tori May 1935 Description Pt takes dose in AM Patient Findings Positives: Bruising (her rear end was bruised - could think of no reason for it. the bruising is almost gone now.) Negatives: Signs/symptoms of thrombosis, Signs/symptoms of bleeding, Change in health, Change in alcohol use, Change in activity, Upcoming invasive procedure, Missed doses, Extra doses, Change in medications, Change in diet/appetite INR Result As of 04/29/2023 INR goal: 2.0-3.0 INR used for dosing: Warfarin Plan As of 04/29/2023 Full warfarin instructions: 2.5 mg every Mon, Fri; 5 mg all other days No change documented: Ritchie Aparicio RPh Next INR check: 06/10/2023 Repeat PT/INR in 6 week(s) Weekly dose: not changed Ritchie Menchaca RPh, CACP, CDE Clinical Pharmacist Medication Therapy [facility] 04/29/2023 9:48 AM documented in this encounter Plan of Treatment Upcoming Encounters Date Type Specialty Care Team Description 05/05/2023 Office Visit Podiatry Bryanna Guzman DPM [address] [place] [address] 06/10/2023 Anticoagulation Pharmacy Pharmacist1, [facility] [address] [facility] [address] 11/09/2023 Office Visit Sleep Disorders Tess Valdez DO [address] [place] [address] 11/11/2023 Office Visit Family Medicine Chad Phoenix, DO [address] [place] [address] 12/16/2023 Cardiac Studies Cardiology [facility] [address] [facility] [place] [address] Health Maintenance Due Date Last Done Comments [...] Comments INR FINGERSTICK, POINT OF CARE [place] 04/29/2023 9:46 AM EDT documented in this encounter Results * INR FINGERSTICK, POINT OF CARE (04/29/2023 9:46 AM EDT) Fingerstick INR 2.1 INR 9:48 AM EDT [facility] Blood 04/29/2023 9:46 AM EDT 04/29/2023 9:48 AM EDT Narrative [facility] - 04/29/2023 9:48 AM EDT Therapeutic ranges for non-operative patients: Prophylaxsis/treatment of DVT: (Range:2.0-3.0) Treatment of pulmonary embolism:(Range:2.0-3.0) Prevention of systemic embolism from: -tissue heart valves -acute myocardial infarction -valvular heart disease -atrial fibrillation (Range: 2.0-3.0) Mechanical prosthetic valves: (Range: 2.5-3.5) [facility] Pharmacist1 LAB POINT OF C ARE TEST DOCKED DEVICE UNSOLICITED RESULTS [facility] [facility] [address] documented in this encounter Visit Diagnoses Diagnosis Paroxysmal atrial fibrillation (HCC)- Primary Atrial fibrillation documented in this encounter Advance Directives Latest Code Status on File Code Status Date Activated Date Inactivated Comments Full Code 02/21/2015 7:41 AM 02/21/2015 2:10 PM This order reflects the patients wishes and were consensually agreed upon. Question Answer Comments Discussion of Advance Directives occurred with: Not Discussed Care Teams Golf Player Assistant Relationship Specialty Start Date End Date Chad Phoenix, DO [address] [facility] [address] PCP - General Family Medicine 06/02/18 documented as of this encounter
--- OUTSIDE RECORDS SUMMARY | 2023-09-13 22:08 | External Medical Summary ---
Author Name Unknown Address Unknown Organization K09:[facility] [place] [address] Laboratory Report Ordering Provider Test Date Status LINDA REAGAN 04/29/2023 09:46:21 Final Therapeutic ranges for non-o perative patients:
Prophylaxsis/treatment of DVT: (Range:2.0-3.0)
Treatment of pulmonary embolism:(Range:2.0-3.0)
Prevention of systemic embolism from:
-tissue heart valves
-acute myocardial infarction
-valvular heart disease
-atrial fibrillation
(Range: 2.0-3.0)
Mechanical prosthetic valves: (Range: 2.5-3.5) Observation Date Value Abnormality Reference (Units ) Status INR in Capillary blood by Coagulation assay 04/29/2023 09:46:21 2.1 (INR) Final Performing Location [facility] [place] [address]
--- OUTSIDE RECORDS SUMMARY | 2023-09-13 22:08 | External Medical Summary | Summary of Care ---
Author Name Unknown Organization [facility] Address [address] [facility] [place] [address] Phone [phone] Care Team Providers Care Wheel Borer Name Role Phone Letitia Posey DO Primary Care Provider [phone] Reason for Visit * Reason Comments eRx-Medication Refill Encounter Details Date Type Department Care Team Description 05/11/2023 Refill Family Practice [facility] [place] [address] [facility] [place] [address] Letitia Posey DO [address] [facility] [place] [address] Allergies Active Allergy Reactions Severity Noted Date Comments Glipizide 02/18/2021 Dizzy, confusion Penicillins Rash 10/13/2001 documented as of this encounter (statuses as of 05/12/2023) Medications Medication Sig Dispensed Refills Start Date [...] by GOLD 2017 classification ([facility]) Inhale 1 Vial via nebulizer every 4 hours as needed for Wheezing or Shortness of Breath. 90 mL 3 3 Active Furosemide 40 MG Oral Tablet (Lasix)Indications: Heart failure, diastolic, due to HTN ([facility]) Take 1 Tablet by mouth in [...] 0 3 Active Vitamin D3 1.25 MG (98138 UT) Oral Capsule TAKE 1 CAPSULE BY [...] morning. 90 Tablet 3 3 Active Nystatin 135343 UNIT/GM External Powder (Nystop) Apply topically to [...] EVERY MORNING 90 Tablet 3 3 Active Isosorbide Mononitrate ER 30 MG Oral Tablet Extended Release 24 Hour (Imdur) Take by mouth 1 Tablet in the morning. 90 Tablet 3 2 05/12/20 23 Discontinued documented as of this encounter (statuses as of 05/12/2023) Active Problems Problem Noted Date Nocturnal hypoxemia [...] mitral regurgitation by prior e chocardiogram 10/18/2017 alf 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 t herapy 10/18/2017 [...] as of this encounter (statuses as of 05/12/2023) Resolved Problems Problem Noted Date Resolved Date Coronary artery disease invo lving [place] heart without angina pectoris 04/18/2019 10/29/2019 [...] 02/28/2012 08/29/2018 Overview: Per CKD protocol #1 alf 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 therapy 0 03/05/2011 [...] as of this encounter (statuses as of 05/12/2023) Immunizations Name Administration Dates Next Due COVID-19 [...] encounter Miscellaneous Notes * Telephone Encounter - Tania Akhtar [facility] - 05/12/2023 11:26 AM EDTSigned Prescriptions: Disp Refills Isosorbide Mononitrate ER 30 MG Oral Table*90 Tab*3 Sig: TAKE 1 TABLET BY MOUTH EVERY MORNINGAuthorizing Provider: LETITIA POSEY User: TANIA AKHTAR MA documented in this encounter Plan of Treatment Upcoming Encounters Date Type Specialty Care Team Description 06/10/2023 Anticoagulation Pharmacy Pharmacist1, [facility] [address] [place] [address] 08/09/2023 Office Visit Podiatry Bryanna Guzman DPM [address] [place] [address] 11/09/2023 Office Visit Sleep Disorders Tess Valdez DO [address] [place] [address] 11/11/2023 Office Visit Family Medicine Letitia Posey DO [address] [place] [address] 12/16/2023 Cardiac Studies Cardiology [facility] [address] [place] [address] 05/04/2024 Office Visit Nephrology Eddie Suh MD [address] [place] [address] Health Maintenance Due Date Last Done Comments [...] Directives occurred with: Not Discussed Care Teams Wheel Borer Relationship Specialty Start Date End Date Letitia Posey, DO [address] [place] [address] PCP - General Family Medicine 06/02/18 documented as of this encounter
--- OUTSIDE RECORDS SUMMARY | 2023-09-13 22:08 | External Medical Summary | Summary of Care ---
Author Name Unknown Organization [facility] Address [address] [facility] [place] [address] Phone [phone] Care Team Providers Care Electronic Scale Subassembler Name Role Phone TashiaChad godfrey Jorge Luis GAMEZ Primary Care Provider [phone] Reason for Visit * Reason Comments Follow Up Routine nail care Encounter Details Date Type Department Care Team Description 05/05/2023 Office Visit Podiatry [facility] [address] [place] [address] Bryanna Guzman DPM [address] [place] [address] Onychomycosis*; Type 2 diabetes mellitus with hemoglobin A1c goal of less than 8.0% ([facility]); Pain in toes of both feet; Stage 3 chronic kidney disease, unspecified whether stage 3a or 3b CKD (HCC); Type 2 diabetes mellitus with stage 3 chronic kidney disease, without long-term current use of insulin, unspecified whether stage 3a or 3b CKD ([facility]) Allergies Active Allergy Reactions Severity Noted Date Comments Glipizide 02/18/2021 Dizzy, confusion Penicillins Rash 10/13/2001 documented as of this encounter (statuses as of 05/05/2023) Medications Medication Sig Dispensed Refills Start Date [...] B, by GOLD 2017 classification ([facility]) Inhale 1 Vial via nebulizer every [...] 0 12/20/2022 Active Vitamin D3 1.25 MG (11551 UT) Oral Capsule TAKE 1 CAPSULE BY [...] morning. 90 Tablet 3 02/14/2023 Active Nystatin 510894 UNIT/GM External Powder (Nystop) Apply topically to [...] as of this encounter (statuses as of 05/05/2023) Active Problems Problem Noted Date Nocturnal hypoxemia [...] as of this encounter (statuses as of 05/05/2023) Resolved Problems Problem Noted Date Resolved Date Coronary artery disease invo lving [place] heart without angina pectoris 04/18/2019 10/29/2019 Chronic [...] as of this encounter (statuses as of 05/05/2023) Immunizations Name Administration Dates Next Due COVID-19 [...] of this encounter Progress Notes * Bryanna Guzman, DUSTYM - 05/05/2023 9:37 AM EDT Podiatry [facility] Name: Tori May : 1935 Date: 05/05/2023 CHIEF COMPLAINT: Diabetic Nail Care HISTORY OF [...] 30-59 ML/MIN) 02/28/2012 Per CKD protocol #1 [facility] 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 therapy 10/18/2017 ICD-10 update of inactive term Moderate mitral regurgitation by prior echocardiogram 10/18/2017 Obesity, BMI not known 11/30/2002 Paroxysmal SVT (supraventricular tachycardia) (HCC) 11/30/2002 Paroxysmal SVT (supraventricular tachycardia) (HCC) 11/30/2002 Tachycardia associated with angina Past Surgical History: Procedure Laterality Date ABLATE HEART DYSRHYTHM FOCUS 03/27/2010 CATHETER ABLATION-SVT performed by NATASHA NAM at [facility] ARTHROPLASTY KNEE TOTAL B/LTKR (Total Knee Replacement) COLONOSCOPY, DIAGNOSTIC (RECTUM) 10/07/2020 Multiple proximal colon AVM's, diverticulosis / [facility] EGD, FLEXIBLE, DIAGNOSTIC 10/07/2020 benign gastric polyp, hiatal hernia / [facility] EGD, W/ENDOSCOPIC US N/A 02/21/2015 serous pancreatic cyst. fatty liver/ESOPHAGOGASTRODUODENOSCOPY (EGD), FLEXIBLE, TRANSORAL, ENDOSCOPIC ULTRASOUND performed by Larry Daugherty DO at OR [facility] BRONCHOSCOPY TRANSBRONCHIAL NEEDLE ASPIRATION BIOPSY WNL HEMILAMINECTOMY, [...] 1 Each 0 Vitamin D3 1.25 MG (65340 UT) Oral Capsule TAKE 1 CAPSULE BY [...] in the morning. 90 Tablet 3 Nystatin 802577 UNIT/GM External Powder (Nystop) Apply topically to [...] documented in this encounter Nursing Notes * VASU Faulkner - 05/05/2023 9:28 AM EDT Pt presents today for routine care VASU Faulkner documented in this encounter Plan of Treatment Upcoming Encounters Date Type Specialty Care Team Description 06/10/2023 Anticoagulation Pharmacy Pharmacist1, [facility] [address] [place] [address] 08/09/2023 Office Visit Podiatry Bryanna Guzman DPM [address] [place] [address] 11/09/2023 Office Visit Sleep Disorders Tess Valdez DO [address] [place] [address] 11/11/2023 Office Visit Family Medicine Chad Phoenix, DO [address] [place] [address] 12/16/2023 Cardiac Studies Cardiology [facility] [address] [facility] [place] [address] 05/04/2024 Office Visit Nephrology Eddie Suh MD [address] [facility] [place] [address] Health Maintenance Due Date Last Done Comments [...] (HCC) Pain in toes of both feet Stage 3 chronic kidney disease, unspecified whether stage 3a or 3b CKD (HCC) documented in this encounter Advance Directives Latest Code Status on File Code Status Date Activated Date Inactivated Comments Full Code 02/21/2015 7:41 AM 02/21/2015 2:10 PM This order reflects the patients wishes and were consensually agreed upon. Question Answer Comments Discussion of Advance Directives occurred with: Not Discussed Care Teams Electronic Scale Subassembler Relationship Specialty Start Date End Date Chad Phoenix, [address] [place] [address] PCP - General Family Medicine 06/02/18 documented as of this encounter
--- OUTSIDE RECORDS SUMMARY | 2023-09-13 22:08 | External Medical Summary | Summary of Care ---
Author Name Unknown Organization [facility] Address [address] [facility] [place] [address] Phone [phone] Care Team Providers Care Community Service Aide Name Role Phone Chad Phoenix DO Primary Care Provider [phone] Reason for Visit * Reason Comments Re-Check Encounter Details Date Type Department Care Team Description 04/05/2023 Office Visit Family Practice [facility] [place] [address] [facility] [place] [address] Chad Phoenix DO [address] [facility] [place] [address] Type 2 diabetes mellitus with hemoglobin A1c goal of less than 8.0% ([facility])*; Acquired hypothyroidism; Paroxysmal atrial fibrillation (HCC); Heart failure, diastolic, due to HTN ([facility]); Nocturnal hypoxemia; Fall from bed, initial encounter Allergies Active Allergy Reactions Severity [...] ns:COPD, group B, by GOLD 2017 classification ([facility]) Inhale 1 Vial via nebulizer every 4 [...] 0 12/20/2022 Active Vitamin D3 1.25 MG (86885 UT) Oral Capsule TAKE 1 CAPSULE BY [...] morning. 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 Chief Complaint Patient presents with Re-Check HPI: Pt here in follow-up. Feels okay, no recent hospitalizations. Fell Tuesday in the night. Found on the floor and doesn't know how or wwhy. Did not hit her head. Nomemory of it. It was by her bed. They have a lowered bed. Still wearing her CPAP mask. Daughter asks for bed rails. Diabetic footwear discussed. She has a handicapped plate but needs a placard. Due for A1C and check on kidneys. PMHx, meds, and allergies reviewed Patient Active Problem List Diagnosis Code ADVANCE DIRECTIVE INFORMATION DYSLIPIDEMIA, GOAL LDL BELOW 100 E78.5 Atrial fibrillation ([facility]) I48.91 Anticoagulation management encounter Z51.81, Z79.01 Type 2 diabetes mellitus with hemoglobin A1c goal of less than 8.0% (HCC) E11.9 Heart failure, diastolic, due to HTN ([facility]) I11.0, I50.30 Type 2 diabetes mellitus with diabetic chronic kidney disease ([facility]) E11.22 Essential hypertension with goal blood pressure less than 140/90 I10 Cardiac pacemaker in situ Z95.0 Moderate mitral regurgitation by prior echocardiogram 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 Z79.01 Hypertensive heart disease with diastolic heart failure and stage 3 chronic kidney disease ([facility]) I13.0, I50.30, N18.30 Acquired hypothyroidism E03.9 Hyperkalemia E87.5 Sensorineural hearing loss (SNHL) of right ear H90.5 DAIN (obstructive sleep apnea) G47.33 Pulmonary HTN ([facility]) I27.20 COPD, group B, by GOLD 2017 classification ([facility]) J44.9 Hypertensive heart and kidney disease with chronic diastolic congestive heart failure and stage3 chronic kidney disease ([facility]) I13.0, I50.32, N18.30 Hyperparathyroidism, secondary renal ([facility]) N25.81 Paroxysmal atrial fibrillation ([facility]) I48.0 Acute diastolic HF (heart failure) ([facility]) I50.31 Thrombocytopenia, unspecified ([facility]) D69.6 Type 2 diabetes mellitus with stage 3 chronic kidney disease, without long- term current use of insulin ([facility]) E11.22, N18.30 Longstanding persistent atrial fibrillation ([facility]) I48.11 Chronic right-sided heart failure ([facility]) I50.812 Permanent atrial fibrillation ([facility]) I48.21 Stage 3b chronic kidney disease ([facility]) N18.32 CKD (chronic kidney disease) stage 4, GFR 15-29 ml/min ([facility]) N18.4 Nocturnal hypoxemia G47.34 Current Outpatient Medications Medication Sig Dispense Refill [...] Tablet in the morning. 90 Tablet 3 Metoprolol Succinate ER 100 MG Oral Tablet Extended Release 24 Hour (toPROL XL) TAKE 1 TABLET BY MOUTH TWICE DAILY 180 Tablet 2 Warfarin Sodium 5 MG Oral Tablet (Jantoven) [...] 1 Each 0 Vitamin D3 1.25 MG (24557 UT) Oral Capsule TAKE 1 CAPSULE BY [...] in the morning. 90 Tablet 3 Nystatin 669387 UNIT/GM External Powder (Nystop) Apply topically to affected area 3 times a day. Apply to underside of L breast 15 g 3 Levothyroxine Sodium 75 MCG Oral Tablet (Levoxyl) TAKE 1 TABLET BY MOUTH EVERY MORNING AT LEAST30 MINUTES PRIOR TO BREAKFAST OR OTHER MEDICATIONS 90 Tablet 1 Januvia 50 MG Oral Tablet TAKE ONE TABLET BY MOUTH EVERY MORNING 90 Tablet 1 No current facility-administered medications for this visit. Review of patient's allergies indicates: Allergen Reactions Glipizide Dizzy, confusion Penicillins Rash OBJECTIVE: BP 120/60 | Pulse 84 | Temp 36.1 C (96.9 F) (Tympanic) | Resp 16 | Wt 80.1 kg (176 lb 9.6 oz) |SpO2 91% | BMI 36.91 kg/m | BSA 1.81 m Estimated body mass index is 36.91 kg/m as calculated from the following: Height as of 02/14/23: 1.473 m (4' 10"). Weight as of this encounter: 80.1 kg (176 lb 9.6 oz). BP Readings from Last 3 Encounters: 04/05/23 120/60 03/08/23 134/64 02/21/23 108/60 Wt Readings from Last 3 Encounters: 04/05/23 80.1 kg (176 lb 9.6 oz) 03/08/23 81.6 kg (179 lb 12.8 oz) 02/21/23 81.6 kg (180 lb) ROS: Negative except for above PHYSICAL EXAM: General: alert, healthy and no distress Head: Normocephalic, No masses, lesions, tenderness or abnormalities Heart: regular rate & rhythm, no murmur and no gallops Lungs: chest symmetric with normal AP diameter, no chest deformities noted, no chest wall tenderness, lungs clear to auscultation Extremities: less than 2 second capillary refill, and trace edema ASSESSMENT/Plan Type 2 diabetes mellitus with hemoglobin A1c goal of less than 8.0% ([facility]) (Primary) - BASIC METABOLIC PANEL; Future; Expected date: 04/05/2023 - HEMOGLOBIN A1C; Future; Expected date: 04/05/2023 Acquired hypothyroidism - TSH WITH FREE T4 IF INDICATED; Future; Expected date: 04/05/2023 Paroxysmal atrial fibrillation (HCC) - DURABLE MEDICAL EQUIPMENT Heart failure, diastolic, due to HTN (HCC) - DURABLE MEDICAL EQUIPMENT Nocturnal hypoxemia - DURABLE MEDICAL EQUIPMENT Fall from bed, initial encounter - DURABLE MEDICAL EQUIPMENT Multiple chronic stable problems discussed. Continue Lasix 40 mg twice daily Blood work today Seems to be doing well overall. The above was discussed and understanding was expressed. Chad Phoenix DO documented in this encounter Nursing Notes * Mitzi Ortiz LPN - 04/05/2023 3:07 PM EDT Tori May presents for 6 month recheck. Medications & HM reviewed. Would like to discuss handicap license plate. Had a fall Tuesday morning at 2:30 in the morning. No noticed injuries. Would like to discuss diabetic shoes. documented in this encounter Plan of Treatment Upcoming Encounters Date Type Specialty Care Team Description 04/29/2023 Anticoagulation Pharmacy Pharmacist1, [facility] [address] [facility] [place] [address] 04/29/2023 Office Visit Nephrology dEdie Suh MD [address] [facility] [place] [address] 05/05/2023 Office Visit Podiatry Bryanna Guzman DPM [address] [place] [address] 11/09/2023 Office Visit Sleep Disorders Tess Valdez, [address] [place] [address] 11/11/2023 Office Visit Family Medicine Chad Phoenix DO [address] [facility] [place] [address] 12/16/2023 Cardiac Studies Cardiology Dom Perez [facility] [address] [place] [address] Pending Results Name Type Priority Associated Diagnoses Date /Time BASIC METABOLIC PANEL Lab Routine Type 2 diabetes mellitus with hemoglobin A1c goal of less than 8.0% (HCC) 04/05/2023 3:46 PM EDT Scheduled Orders Name Type Priority Associated Diagnoses Orde r Schedule BASIC METABOLIC PANEL Lab Routine Type 2 diabetes mellitus with hemoglobin A1c goal of less than 8.0% (HCC) Expected: 04/05/2023 (Approximate), Expires: 04/04/2024 Health Maintenance Due Date Last Done Comments [...] hemoglobin A1c goal of less than 8.0% (HCC)- Primary Acquired hypothyroidism Unspecified hypothyroidism Paroxysmal atrial fibrillation (HCC) Atrial fibrillation Heart failure, diastolic, due to HTN (HCC) Unspecified hypertensive heart disease with heart failure Nocturnal hypoxemia Hypoxemia Fall from bed, initial encounter documented in this encounter Advance Directives Latest Code Status on File Code Status Date Activated Date Inactivated Comments Full Code 02/21/2015 7:41 AM 02/21/2015 2:10 PM This order reflects the patients wishes and were consensually agreed upon. Question Answer Comments Discussion of Advance Directives occurred with: Not Discussed Care Teams Community Service Aide Relationship Specialty Start Date End Date Chad Phoenix, DO [address] [place] [address] PCP - General Family Medicine 06/02/18 documented as of this encounter
--- OUTSIDE RECORDS SUMMARY | 2023-09-13 22:09 | External Medical Summary ---
Author Name Unknown Address Unknown Organization [id number]:[facility] [place] - [address] [facility] [place] [address] Laboratory Report Ordering Provider Test Date Status KALPESH DONG 04/05/2023 15:46:56 Final Observation Date Value Abnormality Reference (Units ) Status BUN 04/05/2023 15:46:56 26 Above high normal 6-20 (mg/dL) Final Creatinine 04/05/2023 15:46:56 1.4 Above high normal 0.5-1.0 (mg/dL) Final Glomerular filtration rate/1.73 sq M.predicted [Volume Rate/Area] in Serum, Plasma or Blood by Creatinine-based formula (CKD-EPI) 04/05/2023 15:46:56 37 Below low normal >=60 (mL/min) Final eGFR is calculated based on the CKD-EPI 2020 equation SODIUM 04/05/2023 15:46:56 140 135-146 (m mol/L) Final Potassium 04/05/2023 15:46:56 4.1 3.5-5.1 (m mol/L) Final Cl 04/05/2023 15:46:56 100 98-107 (mm ol/L) Final CO2 04/05/2023 15:46:56 27 22-32 (mmo l/L) Final Anion gap 04/05/2023 15:46:56 13 7-15 (mmol /L) Final Glucose 04/05/2023 15:46:56 106 70-120 (mg /dL) Final Calcium 04/05/2023 15:46:56 9.4 8.4-10.2 ( mg/dL) Final Performing Location [facility] - [address] [place] [address]
--- OUTSIDE RECORDS SUMMARY | 2023-09-13 22:09 | External Medical Summary ---
Author Name Unknown Address Unknown Organization K09:[facility] [place] [facility] [place] [address] Laboratory Report Ordering Provider Test Date Status THANIA ALBERTO V 04/05/2023 14:57:11 Final Therapeutic ranges for non-o perative patients:
Prophylaxsis/treatment of DVT: (Range:2.0-3.0)
Treatment of pulmonary embolism:(Range:2.0-3.0)
Prevention of systemic embolism from:
-tissue heart valves
-acute myocardial infarction
-valvular heart disease
-atrial fibrillation
(Range: 2.0-3.0)
Mechanical prosthetic valves: (Range: 2.5-3.5) Observation Date Value Abnormality Reference (Units ) Status INR in Capillary blood by Coagulation assay 04/05/2023 14:57:11 2.2 (INR) Final Performing Location [facility] [place] [facility] [place] [address]
--- OUTSIDE RECORDS SUMMARY | 2023-09-13 22:09 | External Medical Summary ---
Author Name Unknown Address Unknown Organization [id number]:[facility] [place] - [address] [place] [address] Laboratory Report Ordering Provider Test Date Status NICHOLAS BECKER 04/05/2023 15:46:56 Final Observation Date Value Abnormality Reference (Units ) Status Vitamin B12 04/05/2023 15:46:56 [phone] (pg/mL) Final Performing Location LAB[facility]AT[facility] - [address] [place] [address]
--- OUTSIDE RECORDS SUMMARY | 2023-09-13 22:09 | External Medical Summary | Summary of Care ---
Author Name Unknown Organization [facility] Address [address] [facility] [place] [address] Phone [phone] Care Team Providers Care Arabic Translator Name Role Phone LizettChad Jorge Luis GAMEZ Primary Care Provider [phone] Encounter Details Date Type Department Care Team Description 03/18/2023 Nurse Only General Surgery, [facility] [place] [address] [place] [facility] [address] [place] [address] Arrived Allergies Active Allergy Reactions Severity Noted Date Comments Glipizide 02/18/2021 Dizzy, confusion Penicillins Rash 10/13/2001 documented as of this encounter (statuses as of 03/18/2023) Medications Medication Sig Dispensed Refills Start Date [...] ns:COPD, group B, by GOLD 2017 classification ([facility]) Inhale 1 Vial via nebulizer every 4 hours as needed for Wheezing or Shortness of Breath. 90 mL 3 10/20/2022 Active Furosemide 40 MG Oral Tablet (Lasix)Indications:H eart failure, diastolic, due to HTN ([facility]) Take 1 Tablet by mouth in the [...] 0 12/20/2022 Active Vitamin D3 1.25 MG (09805 UT) Oral Capsule TAKE 1 CAPSULE BY [...] morning. 90 Tablet 3 02/14/2023 Active Nystatin [id number] UNIT/GM External Powder (Nystop) Apply topically to [...] as of this encounter (statuses as of 03/18/2023) Active Problems Problem Noted Date Nocturnal hypoxemia [...] as of this encounter (statuses as of 03/18/2023) Resolved Problems Problem Noted Date Resolved Date Coronary artery disease invo lving chinik heart without angina pectoris 04/18/2019 10/29/2019 Chronic [...] as of this encounter (statuses as of 03/18/2023) Immunizations Name Administration Dates Next Due COVID-19 [...] on file documented as of this encounter Nursing Notes * Sandra Peguero LPN - 03/18/2023 2:40 PM EDT Removed 5 sutures from underneath left breast, healed nicely, placed steri-strips. documented in this encounter Plan of Treatment Upcoming Encounters Date Type Specialty Care Team Description 04/05/2023 Anticoagulation Pharmacy Pharmacist1, [facility] [address] [facility] [place] [address] 04/05/2023 Office Visit Family Medicine Chad Phoenix DO [address] [facility] [address] [facility] [address] 04/29/2023 Office Visit Nephrology Eddie Suh MD [address] [place] [address] 05/05/2023 Office Visit Podiatry Bryanna Guzman DPM [address] [place] [address] 11/09/2023 Office Visit Sleep Disorders Tess Valdez, [address] [place] [address] 12/16/2023 Cardiac Studies Cardiology Dom Perez [facility] [address] [place] [address] Health Maintenance Due Date Last Done Comments Alpha-1 Antitrypsin 1953 Zoster Vaccines (1 of 2) 1954 COVID-19 Vaccine (4 - Moderna series) 11/18/2021 09/23/2021, 12/09/2020, 11/11/2020 DIABETES-EYE EXAM 01/11/2023 01/11/2022, , 12/17/2019, Additional history exists TSH 04/14/2023 04/14/2022, 03/12, 11/18/2021, Additional history exists HbA1c 04/19/2023 10/20/2022, 020 06/2022, 05/21/2021, Additional history exists Depression Screening, [...] Directives occurred with: Not Discussed Care Teams Arabic Translator Relationship Specialty Start Date End Date Chad Phoenix, DO [address] [place] [address] PCP - General Family Medicine 06/02/18 documented as of this encounter
[2023-09-14 05:41] LABS: Hematocrit (blood only) 34.2 % (37.0-47.0); Hemoglobin 11.4 g/dl (12.0-16.0); Mean Corpuscular Hemoglobin 29.4 pg (25.0-34.0); Mean Corpuscular Hgb Conc 33.3 g/dL (32.0-36.0); Mean Corpuscular Volume 88.1 fL (80.0-100.0); Platelet Count 219 K/uL (130-400); RDW Coefficient of Variation 14.9 % (11.5-14.5); RDW Standard Deviation 48.2 fL (36.4-46.3); Red Blood Count 3.88 M/uL (4.20-5.40); White Blood Count 3.57 K/ul (4.8-10.8)
[2023-09-14 05:57] LABS: BUN Creatinine Ratio 17.7 (10-20); Calcium 9.3 mg/dl (8.6-10.3); Creatinine Clr Calc Pharmacy 25.8 ml/min; Est GFR (African American) 42.4 ml/min; Est GFR (Non-African American) 36.6 ml/min; Potassium 4.2 mmol/L (3.5-5.1)
[2023-09-14 06:06] LABS: Prothrombin Time 21.4 Seconds (9.0-12.0)
[2023-09-14 08:13] LABS: Estimated Average Glucose 148 mg/dl; Hemoglobin A1C 6.8 % (4.5-5.6)
[2023-09-14] MEDS: SODIUM CHLOR 7% 4 ML NEB NEB SCH ×2 (08:14→20:52)
[2023-09-14] MEDS: ALBUT/IPRATROP 3MG/0.5MG NEB 3 ML VIAL NEB SCH ×2 (08:14→11:45)
[2023-09-14] MEDS ORDERED: methylPREDNISolone 40 MG in SYRINGE 0 ML IV SCH (09:00)
[2023-09-14] MEDS ORDERED: SITagliptin PHOSPHATE 25 MG TAB PO SCH (09:00)
[2023-09-14] MEDS: LEVOTHYROXINE SODIUM 75 MCG TABLET PO SCH (10:37)
[2023-09-14] MEDS: INSULIN ASPART PER UNIT CHARGE SC SCH ×5 (10:37→21:26)
[2023-09-14] MEDS: dilTIAZem HCL 240 MG CAPCR PO SCH (10:39)
[2023-09-14] MEDS: DOXYCYCLINE HYCLATE 100 MG CAP PO SCH ×2 (10:40→21:12)
[2023-09-14] MEDS: FUROSEMIDE 40 MG TAB PO SCH ×2 (10:40→21:11)
[2023-09-14] MEDS: ISOSORBIDE MONO EXTENDED REL 30 MG TABCR PO SCH (10:41)
[2023-09-14] MEDS: METOPROLOL SUCC 50MG EXT REL TAB PO SCH ×2 (10:42→21:11)
[2023-09-14] MEDS: PANTOprazole 40 MG TAB PO SCH (10:43)
[2023-09-14] MEDS: MONTELUKAST SODIUM 10 MG TABLET PO SCH (10:43)
--- NOTE | 2023-09-14 11:35 | XRay Report ---
XR chest 1V portable HISTORY: Right middle lobe collapse. Follow-up. COMPARISON: Chest 09/13/2023. FINDINGS: Improved aeration within the now partial right middle lobe collapse. No pneumothorax. The h eart remains enlarged. There is a left-sided single lead pacemaker again noted. There is mild central pulmonary vascular congestion without overt edema. A trace right pleural effusion persists. IMPRESSION: 1. Improved aeration within the now partial right middle lobe collapse. 2. Cardiomegaly and mild pulmonary vascular congestion persists. ACT 112: Negative or not required by law. Electronically signed by: Carson Munoz M.D. 09/14/2023 11:34 AM
[2023-09-14] MEDS ORDERED: INFLUENZA VACCINE HIGH-DOSE (HD-IIV4) PF 65+ 0.7mL SYR IM ONE (12:34)
--- NOTE | 2023-09-14 13:55 | Pulmonary Consultation ---
Date of Consultation September 14, 2023 Assessment & Plan (1) Right middle lobe pneumonia: 88-year-old female presenting with right middle lobe collapse and RSV pneumonia. Continue percussive vest therapy 4 times a day and hypertonic saline. Chest x- ray reviewed from today which suggests the right middle lobe collapse has improved modestly. Given that she is improving and considering her underlying comorbidities, we will hold on bronchoscopy at this time. Can transition to oral steroids for total 5 days. Please obtain sputum sample. Continue antibiotics. Thank you for the consult. We will follow. History of Present Illness Reason for Consultation: Right middle lobe atelectasis Attending Physician: Christian Martin MD History of Present Illness 88-year-old female with a past medical history of heart failure, asthma, hypertension and diabetes who presented to the hospital due to increasing shortness of breath over the past week. Patient was found to be RSV positive. She underwent a CT chest which revealed right middle lobe collapse. She notes that she has been coughing yellow sputum. Denies hemoptysis. Denies any prior pulmonary issues. Allergies Allergy/AdvReac Type Severity Reaction Status Date / Time Penicillins Allergy Intermediate RASH Verified 09/13/23 15:51 glipizide AdvReac dizziness/c Verified 09/13/23 15:51 onfusion Home Medications Medication Instructions Recorded Confirmed Type pantoprazole 40 mg tablet,delayed 40 mg PO QAM ##0 12/25/14 09/13/23 History release diltiazem HCl 240 mg 240 mg PO QAM ##0 09/30/17 09/13/23 History tablet,extended release 24 hr metoprolol succinate 100 mg 100 mg PO BID ##0 10/15/17 09/13/23 History tablet,extended release 24 hr sitagliptin phosphate 50 mg tablet 50 mg PO QAM #0 tabs 02/22/18 09/13/23 History (Januvia) levothyroxine 75 mcg tablet 75 mcg PO DAILYBB 90 days #90 tabs 05/25/18 09/13/23 History rosuvastatin 20 mg tablet 20 mg PO PM 04/14/19 09/13/23 History ergocalciferol (vitamin D2) 1,250 1,250 mcg PO WK 10/02/20 09/13/23 History mcg (50,000 unit) capsule (Vitamin D2) isosorbide mononitrate 30 mg 30 mg PO QAM #30 tabs 04/07/22 09/13/23 Rx tablet,extended release 24 hr furosemide 40 mg tablet 40 mg PO AMHS 09/13/23 09/13/23 History magnesium oxide 400 mg PO BID 09/13/23 09/13/23 History montelukast 10 mg tablet 10 mg PO QAM 09/13/23 09/13/23 History warfarin 5 mg tablet 2.5 mg PO MOFR@0900 09/13/23 09/13/23 History warfarin 5 mg tablet (Jantoven) 5 mg PO SUTUWETHSA@0900 09/13/23 09/13/23 History Patient History Medical History (Updated 09/14/23 @ 13:53 by Troy Arizmendi MD) Right middle lobe pneumonia Chronic diastolic heart failure COPD (chronic obstructive pulmonary disease) CKD (chronic kidney disease), stage III DM (diabetes mellitus), type 2 Hypertension Cardiac pacemaker in situ Tachy-pham syndrome Atrial fibrillation Acute on chronic diastolic CHF (congestive heart failure), NYHA class 3 MACARIO (dyspnea on exertion) Acute dyspnea Acute exacerbation of congestive heart failure Acute decompensated heart failure Hypertension Anticoagulated on Coumadin Asthma CHF (congestive heart failure) Diabetes Atrial fibrillation (04/18/13) Surgical History Appendectomy (04/18/13) Family History (Updated 09/13/23 @ 17:34 by Wilda Castaneda PA-C) Other Alzheimer disease Breast cancer Social History Smoking Status: Never smoker Second Hand Exposure: No; Do You Dip or Chew Tobacco: No; Tobacco Cessation Education Requested by Patient: No Hx Alcohol Use: No Hx Substance Use: No Preferred Language: Croatian Communication Ability: Effective Floor Attendant Required: No Beliefs That Will Affect Care: None marital status: Current Living Situation: Family Current Living Situation Comment: spouse, daughter, son, daughter in law, grandchildren Other Information That Helps Us Care for You: No Feels Safe at Home: Yes Safety Concerns: Feels Safe At This Time Assistive Devices: CPAP, Denture - Upper, Denture - Lower, Glasses, Hearing Aid - Left, Oxygen - at Night and Walker Review of Systems Review of Systems: All systems reviewed & are unremarkable except as noted in HPI & below Physical Exam Physical Exam: Constitutional: Patient appears to be of their stated age. Patient is in no apparent distress. Patient is well-developed. Eyes: Pupils are equal round and reactive to light. Conjunctivae are normal. Anicteric sclera. Ears nose, mouth and throat: Mallampati class 2. Normal posterior oropharynx. Uvula is midline. Neck: Trachea is midline. Visual inspection is normal. Respiratory: Diffuse rales. No increased work of breathing. Cardiovascular: Regular rate and rhythm. No murmurs. No edema. Gastrointestinal: Normal bowel sounds, soft, nontender and nondistended. No hepatosplenomegaly noted. Musculoskeletal: No cyanosis. Patient is able to move all extremities. Strength is 5 out of 5 in the upper and lower extremities. Skin: No rashes, warm dry and intact. Neurologic: No obvious focal neurological deficits seen. Psychiatric: Alert and oriented x3 with a euthymic affect. Results & Data Results & Data Vital Signs (Past 12 Hours) Vital Signs Temp Pulse Pulse Resp BP BP Pulse Ox 09/14/23 11:57 36.8 C 99 H 20 135/107 H 99 09/14/23 11:45 68 18 96 09/14/23 11:00 61 18 125/70 97 09/14/23 10:00 68 17 183/81 H 94 09/14/23 09:00 65 13 172/89 H 96 09/14/23 08:15 73 18 92 09/14/23 08:00 62 16 159/78 H 94 09/14/23 07:39 67 09/14/23 05:00 60 16 118/72 91 09/14/23 04:00 82 20 137/82 98 09/14/23 03:48 62 15 128/59 L 91 09/14/23 03:00 60 18 92 09/14/23 02:00 62 19 92 O2 Del Method O2 Flow Rate 09/14/23 11:57 Nasal Cannula 3 09/14/23 11:45 Nasal Cannula 3 09/14/23 11:00 Nasal Cannula 3 09/14/23 10:00 Nasal Cannula 3 09/14/23 09:00 Nasal Cannula 3 09/14/23 08:15 Nasal Cannula 3 09/14/23 08:00 3 09/14/23 07:39 09/14/23 05:00 Nasal Cannula 2 09/14/23 04:00 CPAP 09/14/23 03:48 CPAP 09/14/23 03:00 09/14/23 02:00 PG Care Time/CCT Total # of Minutes Spent Total Time Spent with Patient: Total time spent is greater than 50% in coordination of care (as documented) at patient's floor/unit and/or counseling patient: Coding Level of Care Code 13675 INT INP/OBS CARE 2/55MIN Diagnoses Right middle lobe pneumonia J18.9
[2023-09-14] MEDS ORDERED: LEVALBUTEROL HCL 0.63 MG/3 ML NEB NEB SCH (14:00)
[2023-09-14] MEDS ORDERED: IPRATROPIUM BROMIDE NEB SOLN 0.02% 2.5 ML VIAL INH SCH (14:00)
--- NOTE | 2023-09-14 15:18 | Hospitalist Progress Note ---
Date of Service September 14, 2023 Assessment & Plan (1) Acute and chronic respiratory failure: (2) RSV (acute bronchiolitis due to respiratory syncytial virus): (3) COPD (chronic obstructive pulmonary disease): (4) Atrial fibrillation: (5) DM (diabetes mellitus), type 2: (6) CKD (chronic kidney disease), stage III: (7) Chronic diastolic heart failure: (8) Hypertension: Plan: Patient is an 88 yr female with H/O Chronic diastolic heart failure (EF of 55- 60%, TTE 2021), HTN, DAIN on CPAP HS with O2 2L bled through, pulmonary hypertension, SSS s/p cardiac pacemaker, anticoagulated on Coumadin, PVD, HTN, hyperlipidemia, hypothyroidism, DM2 on oral meds, CRI (baseline creatinine 1.3- 1.4) and other medical problems listed below who presents from home with progressively worsening SOB over the past week and was found to have acute on chronic respiratory failure in setting of RSV. Acute on Chronic Respiratory failure with hypoxia Acute COPD Exacerbation Secondary to RSV infection Right Middle Lobe collapse due to mucoid impaction Mediastinal/hilar lymphadenopathy --CT Chest:There is been interval development of complete collapse of the right middle lobe. The distal right lower lobe bronchi appear opacified. The proximal right middle lobe bronchus is patent. This is nonspecific but could be due to mucoid impaction/aspiration. Follow-up bronchoscopy recommended. Trace right pleural effusion. Mosaic attenuation within the lungs suggestive of air- trapping. Mild mediastinal and bilateral hilar lymphadenopathy. This has slightly progressed in the interval. Moderate cardiomegaly. --Biofire + RSV Transition IV Solu-Medrol to p.o. prednisone tomorrow Continue DuoNebs, doxycycline, hypertonic saline, chest PT Aggressive pulmonary hygiene Aspiration precautions Appreciate pulmonary input Wean oxygen to keep saturations 88 to 92% Atrial fibrillation Subtherapeutic INR on presentation Continue diltiazem, metoprolol Continue Coumadin for anticoagulation INR 2.0 today Chronic diastolic heart failure No recent weight gain, BLE at baseline per patient Continue home lasix dose Monitor volume status, I/Os, daily weight SSS S/p pacemaker placement. Paced rhythm on EKG CKD III Cr 1.25 (baseline mid-1s) Monitor with daily BMP HTN Continue home medications DM II HbA1c 6.8 Hold home agents SSI while in-patient BSG AC HS DVT Px: Coumadin Code status: DNR/DNI Disposition PT OT prior to discharge Admission and Anticipated Discharge Date Admission Date: September 13, 2023 Subjective Patient is seen and examined at bedside Feels much better today Denies cough, dyspnea today No new complaints Saturating well on supplemental oxygen Review of Systems Review of Systems: All systems reviewed & are unremarkable except as noted in Subjective Physical Exam Physical Exam: Physical Exam: Vitals signs as noted above General Appearance:Obese, no apparent distress, Elderly Head: normocephalic, Atraumatic Eyes: normal inspection, EOMI Neck: supple, Trachea midline Respiratory/Chest: Decreased breath sounds, scattered Rales/Wheezes, No accessory muscle use Cardiovascular: S1, S2, +murmur,+Pacer Abdomen/GI:Soft, Non tender, Bowel sounds present Extremities/Musculoskeletal:normal inspection, 1+ B/L LE edema Neurologic/Psych:AAOX3, grossly no focal neurological deficits, +Decreased hearing Skin: normal color, warm Results & Data Results & Data Vital Signs (Past 12 Hours) Vital Signs Temp Pulse Pulse Resp BP BP Pulse Ox 09/14/23 14:57 68 09/14/23 11:57 36.8 C 99 H 20 135/107 H 99 09/14/23 11:45 68 18 96 09/14/23 11:00 61 18 125/70 97 09/14/23 10:00 68 17 183/81 H 94 09/14/23 09:00 65 13 172/89 H 96 09/14/23 08:15 73 18 92 09/14/23 08:00 62 16 159/78 H 94 09/14/23 07:39 67 09/14/23 05:00 60 16 118/72 91 09/14/23 04:00 82 20 137/82 98 09/14/23 03:48 62 15 128/59 L 91 O2 Del Method O2 Flow Rate 09/14/23 14:57 09/14/23 11:57 Nasal Cannula 3 09/14/23 11:45 Nasal Cannula 3 09/14/23 11:00 Nasal Cannula 3 09/14/23 10:00 Nasal Cannula 3 09/14/23 09:00 Nasal Cannula 3 09/14/23 08:15 Nasal Cannula 3 09/14/23 08:00 3 09/14/23 07:39 09/14/23 05:00 Nasal Cannula 2 09/14/23 04:00 CPAP 09/14/23 03:48 CPAP Laboratory Results Short CBC 09/14/23 Range/Units 04:46 WBC 3.57 L (4.8-10.8) K/ul Hgb 11.4 L (12.0-16.0) g/dl Hct 34.2 L (37.0-47.0) % Plt Count 219 (130-400) K/uL BMP 09/14/23 04:46 Sodium 138 Potassium 4.2 Chloride 100 Carbon Dioxide 31 BUN 23 Creatinine 1.30 H Glucose 184 H Calcium 9.3
[2023-09-14] MEDS: WARFARIN SOD 5 MG TAB PO SCH (16:52)
[2023-09-14] MEDS ORDERED: XOPENEX/ATROVENT 0.63mg/0.5MG NEB COMBO NEB SCH (19:00)
[2023-09-14] MEDS: IPRATROPIUM BROMIDE NEB SOLN 0.02% 2.5 ML VIAL INH SCH (20:52)
[2023-09-14] MEDS: LEVALBUTEROL HCL 0.63 MG/3 ML NEB NEB SCH (20:53)
[2023-09-14] MEDS: ROSUVASTATIN CALCIUM 20 MG TAB PO SCH (21:13)
[2023-09-15] MEDS: LEVOTHYROXINE SODIUM 75 MCG TABLET PO SCH (05:37)
[2023-09-15 06:31] LABS: Hematocrit (blood only) 33.3 % (37.0-47.0); Hemoglobin 10.8 g/dl (12.0-16.0); Mean Corpuscular Hemoglobin 28.9 pg (25.0-34.0); Mean Corpuscular Hgb Conc 32.4 g/dL (32.0-36.0); Mean Platelet Volume 9.8 fL (9.4-12.4); Platelet Count 206 K/uL (130-400); RDW Coefficient of Variation 14.6 % (11.5-14.5); RDW Standard Deviation 47.5 fL (36.4-46.3); Red Blood Count 3.74 M/uL (4.20-5.40)
[2023-09-15 06:42] LABS: BUN Creatinine Ratio 25.8 (10-20); Calcium 9.2 mg/dl (8.6-10.3); Creatinine Clr Calc Pharmacy 28.1 ml/min; Est GFR (African American) 43.2 ml/min; Est GFR (Non-African American) 37.3 ml/min; Potassium 3.6 mmol/L (3.5-5.1)
[2023-09-15 06:55] LABS: INR 3.6 (0.9-1.1); Prothrombin Time 36.5 Seconds (9.0-12.0)
[2023-09-15] MEDS: SODIUM CHLOR 7% 4 ML NEB NEB SCH ×2 (07:28→20:06)
--- NOTE | 2023-09-15 08:28 | XRay Report ---
SINGLE VIEW CHEST CLINICAL HISTORY: Right middle lobe atelectasis. FINDINGS: An AP, portable, upright chest radiograph is compared to study dated 09/14/2023 and correlat ed with chest CT dated 09/13/2023. The examination is degraded by portable technique and apical or pos itioning. A single lead cardiac pacemaker is unchanged in position. The heart is enlarged noting athe rosclerotic calcification of the thoracic aorta. The pulmonary vasculature is Chronic interstitial th ickening is similar to previous. Complete atelectasis of the right middle lobe is again noted. No ple ural effusion or pneumothorax is seen. The skeletal structures are osteopenic. The bony thorax is jose ramon ssly intact. Advanced arthritic change is seen in the shoulders. IMPRESSION: 1. Cardiomegaly and cardiac pacemaker without radiographic evidence of congestive failure. 2. Complete atelectasis of the right middle lobe is unchanged. ACT 112: Negative or not required by law. Electronically signed by: Gustavo Schultz M.D. 09/15/2023 8:27 AM
[2023-09-15] MEDS: dilTIAZem HCL 240 MG CAPCR PO SCH (09:25)
[2023-09-15] MEDS: PANTOprazole 40 MG TAB PO SCH (09:25)
[2023-09-15] MEDS: METOPROLOL SUCC 50MG EXT REL TAB PO SCH ×2 (09:25→21:13)
[2023-09-15] MEDS: ISOSORBIDE MONO EXTENDED REL 30 MG TABCR PO SCH (09:25)
[2023-09-15] MEDS: INSULIN ASPART PER UNIT CHARGE SC SCH ×4 (09:25→21:13)
[2023-09-15] MEDS: FUROSEMIDE 40 MG TAB PO SCH ×2 (09:26→21:13)
[2023-09-15] MEDS: MONTELUKAST SODIUM 10 MG TABLET PO SCH (09:26)
[2023-09-15] MEDS: predniSONE 20 MG TAB PO SCH (09:26)
[2023-09-15] MEDS: DOXYCYCLINE HYCLATE 100 MG CAP PO SCH ×2 (09:26→21:12)
--- NOTE | 2023-09-15 11:00 | Pulmonology Progress Note ---
Date of Service September 15, 2023 Assessment & Plan (1) Right middle lobe pneumonia: Plan: 88-year-old female presenting with right middle lobe collapse and RSV pneumonia. Chest x-ray relatively unchanged. Will trial BiPAP to help open up the right middle lobe. Continue percussive vest therapy 4 times a day and hypertonic saline. Continue prednisone for total 5 days. Please obtain sputum sample. Continue antibiotics. Would defer bronchoscopy at this time given advanced age and underlying comorbidities. Will consider bronchoscopy if her condition worsens. We will follow. Pneumonia type: due to unspecified organism Qualified Code(s): J18.9 - Pneumonia, unspecified organism Admission and Anticipated Discharge Date Admission Date: September 13, 2023 Subjective Patient feels that her breathing has improved. She does endorse slight cough with occasional sputum production. No fevers, chills or night sweats. She has been using her CPAP at night when sleeping. Review of Systems Review of Systems: All systems reviewed & are unremarkable except as noted in HPI & below Physical Exam Physical Exam: Constitutional: Patient appears to be of their stated age. Patient is in no apparent distress. Patient is well-developed. Eyes: Pupils are equal round and reactive to light. Conjunctivae are normal. Anicteric sclera. Ears nose, mouth and throat: Mallampati class 2. Normal posterior oropharynx. Uvula is midline. Neck: Trachea is midline. Visual inspection is normal. Respiratory: Diffuse rales. No increased work of breathing. Cardiovascular: Regular rate and rhythm. No murmurs. No edema. Gastrointestinal: Normal bowel sounds, soft, nontender and nondistended. No hepatosplenomegaly noted. Musculoskeletal: No cyanosis. Patient is able to move all extremities. Strength is 5 out of 5 in the upper and lower extremities. Skin: No rashes, warm dry and intact. Neurologic: No obvious focal neurological deficits seen. Psychiatric: Alert and oriented x3 with a euthymic affect. Results & Data Results & Data Vital Signs (Past 12 Hours) Vital Signs Temp Pulse Pulse Resp BP BP Pulse Ox 09/15/23 08:00 65 09/15/23 08:00 09/15/23 07:55 36.8 C 80 20 165/90 H 93 09/15/23 07:29 75 18 92 09/15/23 03:45 36.5 C 71 18 156/72 H 93 09/14/23 23:50 86 09/14/23 23:25 36.5 C 69 18 121/76 95 O2 Del Method O2 Flow Rate 09/15/23 08:00 09/15/23 08:00 Nasal Cannula 2 09/15/23 07:55 Nasal Cannula 2.0 09/15/23 07:29 Room Air 09/15/23 03:45 Room Air 09/14/23 23:50 09/14/23 23:25 Room Air PG Care Time/CCT Total # of Minutes Spent Total Time Spent with Patient: Total time spent is greater than 50% in coordination of care (as documented) at patient's floor/unit and/or counseling patient: Coding Level of Care Code 40639 SUB INP/OBS CARE 235MIN Diagnoses Pneumonia of right middle lobe due to infectious organism J18.9 Pneumonia type: due to unspecified organism
--- NOTE | 2023-09-15 15:32 | Hospitalist Progress Note ---
Date of Service September 15, 2023 Assessment & Plan (1) Acute and chronic respiratory failure: (2) RSV (acute bronchiolitis due to respiratory syncytial virus): (3) COPD (chronic obstructive pulmonary disease): (4) Atrial fibrillation: (5) DM (diabetes mellitus), type 2: (6) CKD (chronic kidney disease), stage III: (7) Chronic diastolic heart failure: (8) Hypertension: Plan: Patient is an 88 yr female with H/O Chronic diastolic heart failure (EF of 55- 60%, TTE 2021), HTN, DAIN on CPAP HS with O2 2L bled through, pulmonary hypertension, SSS s/p cardiac pacemaker, anticoagulated on Coumadin, PVD, HTN, hyperlipidemia, hypothyroidism, DM2 on oral meds, CRI (baseline creatinine 1.3- 1.4) and other medical problems listed below who presents from home with progressively worsening SOB over the past week and was found to have acute on chronic respiratory failure in setting of RSV. Acute on Chronic Respiratory failure with hypoxia Acute COPD Exacerbation Secondary to RSV infection Right Middle Lobe collapse due to mucoid impaction Mediastinal/hilar lymphadenopathy --CT Chest:There is been interval development of complete collapse of the right middle lobe. The distal right lower lobe bronchi appear opacified. The proximal right middle lobe bronchus is patent. This is nonspecific but could be due to mucoid impaction/aspiration. Follow-up bronchoscopy recommended. Trace right pleural effusion. Mosaic attenuation within the lungs suggestive of air- trapping. Mild mediastinal and bilateral hilar lymphadenopathy. This has slightly progressed in the interval. Moderate cardiomegaly. --Biofire + RSV Transitioned IV Solu-Medrol to p.o. prednisone Continue DuoNebs, doxycycline, hypertonic saline, chest PT Aggressive pulmonary hygiene Aspiration precautions Appreciate pulmonary input Chest x-ray unchanged today Trial of BiPAP as per pulmonary No plan for bronchoscopy currently Sputum cultures pending Atrial fibrillation Subtherapeutic INR on presentation Supratherapeutic INR today Continue diltiazem, metoprolol On Coumadin for anticoagulation INR 3.6 today Hold Coumadin today Chronic diastolic heart failure No recent weight gain, BLE at baseline per patient Continue home lasix dose Monitor volume status, I/Os, daily weight SSS S/p pacemaker placement. Paced rhythm on EKG CKD III Cr 1.25 (baseline mid-1s) Monitor with daily BMP HTN Continue home medications DM II HbA1c 6.8 Hold home agents SSI while in-patient BSG AC HS DVT Px: Coumadin--held INR supratherapeutic Code status: DNR/DNI Disposition PT OT prior to discharge Admission and Anticipated Discharge Date Admission Date: September 13, 2023 Subjective Patient is seen and examined at bedside States feeling a lot better today Saturating well on baseline supplemental oxygen Cough, dyspnea continues to improve No new complaints Denies any chest pain, dizziness, nausea, vomiting, abdominal pain Review of Systems Review of Systems: All systems reviewed & are unremarkable except as noted in Subjective Physical Exam Physical Exam: Physical Exam: Vitals signs as noted above General Appearance:Obese, no apparent distress, Elderly Head: normocephalic, Atraumatic Eyes: normal inspection, EOMI Neck: supple, Trachea midline Respiratory/Chest: Decreased breath sounds, CTA, No accessory muscle use Cardiovascular: S1, S2, +murmur,+Pacer Abdomen/GI:Soft, Non tender, Bowel sounds present Extremities/Musculoskeletal:normal inspection, 1+ B/L LE edema Neurologic/Psych:AAOX3, grossly no focal neurological deficits, +Decreased hearing Skin: normal color, warm Results & Data Results & Data Vital Signs (Past 12 Hours) Vital Signs Temp Pulse Pulse Resp BP BP Pulse Ox 09/15/23 12:16 36.4 C L 63 18 124/78 95 09/15/23 10:52 66 21 100 09/15/23 08:00 65 09/15/23 08:00 09/15/23 07:55 36.8 C 80 20 165/90 H 93 09/15/23 07:29 75 18 92 09/15/23 03:45 36.5 C 71 18 156/72 H 93 O2 Del Method O2 Flow Rate FiO2 09/15/23 12:16 CPAP 09/15/23 10:52 21 09/15/23 08:00 09/15/23 08:00 Nasal Cannula 2 09/15/23 07:55 Nasal Cannula 2.0 09/15/23 07:29 Room Air 09/15/23 03:45 Room Air Laboratory Results Short CBC 09/15/23 Range/Units 06:09 WBC 7.70 (4.8-10.8) K/ul Hgb 10.8 L (12.0-16.0) g/dl Hct 33.3 L (37.0-47.0) % Plt Count 206 (130-400) K/uL BMP 09/15/23 06:09 Sodium 137 Potassium 3.6 Chloride 99 Carbon Dioxide 29 BUN 33 H Creatinine 1.28 H Glucose 161 H Calcium 9.2
[2023-09-15] MEDS: IPRATROPIUM BROMIDE NEB SOLN 0.02% 2.5 ML VIAL INH SCH (20:05)
[2023-09-15] MEDS: LEVALBUTEROL HCL 0.63 MG/3 ML NEB NEB SCH (20:06)
[2023-09-15] MEDS: ROSUVASTATIN CALCIUM 20 MG TAB PO SCH (21:14)
[2023-09-16 06:08] LABS: Hematocrit (blood only) 35.5 % (37.0-47.0); Hemoglobin 11.7 g/dl (12.0-16.0); Mean Corpuscular Hemoglobin 29.1 pg (25.0-34.0); Mean Corpuscular Volume 88.3 fL (80.0-100.0); Mean Platelet Volume 9.9 fL (9.4-12.4); Platelet Count 266 K/uL (130-400); RDW Coefficient of Variation 14.6 % (11.5-14.5); RDW Standard Deviation 47.5 fL (36.4-46.3); Red Blood Count 4.02 M/uL (4.20-5.40); White Blood Count 7.18 K/ul (4.8-10.8)
[2023-09-16] MEDS: LEVOTHYROXINE SODIUM 75 MCG TABLET PO SCH (06:09)
[2023-09-16 06:30] LABS: BUN Creatinine Ratio 27.7 (10-20); Calcium 9.3 mg/dl (8.6-10.3); Creatinine Clr Calc Pharmacy 23.2 ml/min; Est GFR (African American) 34.3 ml/min; Est GFR (Non-African American) 29.6 ml/min; Potassium 3.7 mmol/L (3.5-5.1)
[2023-09-16 06:36] LABS: Prothrombin Time 39.8 Seconds (9.0-12.0)
[2023-09-16] MEDS: SODIUM CHLOR 7% 4 ML NEB NEB SCH (07:26)
[2023-09-16] MEDS: WARFARIN SOD 5 MG TAB PO SCH (08:11)
--- NOTE | 2023-09-16 08:59 | XRay Report ---
XR chest 2V PA/lateral HISTORY: Follow up right middle lobe atelectasis. COMPARISON: Chest 09/15/2023. FINDINGS: No pneumothorax. No pleural effusions. The heart remains enlarged. Is left-sided pacemaker again noted. There are calcifications within the aortic knob. The left lung is clear. Improved aerati on within the right middle lobe consistent with resolving atelectasis. There is persistent elevation of the right hemidiaphragm. No new focal lung consolidations. IMPRESSION: 1. Improvement in the right middle lobe atelectasis. Continued follow-up recommended to ensure comple te resolution. 2. Cardiomegaly, unchanged. ACT 112: Negative or not required by law. Electronically signed by: Carson Munoz M.D. 09/16/2023 8:58 AM
[2023-09-16] MEDS ORDERED: ERGOCALCIFEROL 50,000 UNITS 1250 MCG CAP PO SCH (09:00)
[2023-09-16] MEDS: INSULIN ASPART PER UNIT CHARGE SC SCH ×3 (09:07→17:51)
[2023-09-16] MEDS: ISOSORBIDE MONO EXTENDED REL 30 MG TABCR PO SCH (09:08)
[2023-09-16] MEDS: dilTIAZem HCL 240 MG CAPCR PO SCH (09:08)
[2023-09-16] MEDS: FUROSEMIDE 40 MG TAB PO SCH (09:08)
[2023-09-16] MEDS: predniSONE 20 MG TAB PO SCH (09:08)
[2023-09-16] MEDS: DOXYCYCLINE HYCLATE 100 MG CAP PO SCH (09:08)
[2023-09-16] MEDS: PANTOprazole 40 MG TAB PO SCH (09:09)
[2023-09-16] MEDS: METOPROLOL SUCC 50MG EXT REL TAB PO SCH (09:09)
[2023-09-16] MEDS: MONTELUKAST SODIUM 10 MG TABLET PO SCH (09:09)
--- NOTE | 2023-09-16 15:47 | Hospitalist Progress Note ---
Date of Service September 16, 2023 Assessment & Plan (1) Acute and chronic respiratory failure: (2) RSV (acute bronchiolitis due to respiratory syncytial virus): (3) COPD (chronic obstructive pulmonary disease): (4) Atrial fibrillation: (5) DM (diabetes mellitus), type 2: (6) CKD (chronic kidney disease), stage III: (7) Chronic diastolic heart failure: (8) Hypertension: Plan: Patient is an 88 yr female with H/O Chronic diastolic heart failure (EF of 55- 60%, TTE 2021), HTN, DAIN on CPAP HS with O2 2L bled through, pulmonary hypertension, SSS s/p cardiac pacemaker, anticoagulated on Coumadin, PVD, HTN, hyperlipidemia, hypothyroidism, DM2 on oral meds, CRI (baseline creatinine 1.3- 1.4) and other medical problems listed below who presents from home with progressively worsening SOB over the past week and was found to have acute on chronic respiratory failure in setting of RSV. Acute on Chronic Respiratory failure with hypoxia Acute COPD Exacerbation Secondary to RSV infection Right Middle Lobe collapse due to mucoid impaction Mediastinal/hilar lymphadenopathy --CT Chest:There is been interval development of complete collapse of the right middle lobe. The distal right lower lobe bronchi appear opacified. The proximal right middle lobe bronchus is patent. This is nonspecific but could be due to mucoid impaction/aspiration. Follow-up bronchoscopy recommended. Trace right pleural effusion. Mosaic attenuation within the lungs suggestive of air- trapping. Mild mediastinal and bilateral hilar lymphadenopathy. This has slightly progressed in the interval. Moderate cardiomegaly. --Biofire + RSV Transitioned IV Solu-Medrol to p.o. prednisone Continue DuoNebs, doxycycline, hypertonic saline, chest PT Aggressive pulmonary hygiene Aspiration precautions Appreciate pulmonary input Chest x-ray unchanged today Trial of BiPAP as per pulmonary No plan for bronchoscopy currently Clinically much better and the chest x-ray showed some improvement Sputum for culture and sensitivity was not sent Discussed with the double back operator for possible discharge this afternoon Has had a 2 steps O2 saturation test and the patient does not require any oxygen Was discharged home this afternoon Atrial fibrillation Subtherapeutic INR on presentation Supratherapeutic INR today Continue diltiazem, metoprolol On Coumadin for anticoagulation INR 3.6 today Hold Coumadin today INR remains at 4-we will hold Coumadin for the next 2 days and start on Tuesday Chronic diastolic heart failure No recent weight gain, BLE at baseline per patient Continue home lasix dose Monitor volume status, I/Os, daily weight SSS S/p pacemaker placement. Paced rhythm on EKG CKD III Cr 1.25 (baseline mid-1s) Monitor with daily BMP HTN Continue home medications DM II HbA1c 6.8 Hold home agents SSI while in-patient BSG AC HS DVT Px: Coumadin--held INR supratherapeutic Code status: DNR/DNI Disposition PT OT prior to discharge Discussed with the daughter and the patient to be discharged home this afternoon Admission and Anticipated Discharge Date Admission Date: September 13, 2023 Supervising Physician Co-Signing Physician Notes Patient is an 88-year-old female with history of diastolic heart failure, valvular heart disease, obstructive sleep apnea on CPAP, chronic oxygen dependency, pulmonary hypertension, atrial fibrillation on Coumadin, CKD, asthma and other medical problems presents with history of worsening cough with yellowish expectoration, shortness of breath, low-grade fever, rhinorrhea, chest congestion since 1 week duration. She admits to have a sick contact with her grandchild. Patient is a poor historian due to significant hearing loss. Most of the history is obtained from patient's family at bedside. She is requiring more supplemental oxygen than her baseline. Please review HPI for complete details of presentation. I personally reviewed blood work, imaging studies and EKG. Blood work suggestive of chronic anemia hemoglobin 10.9, subtherapeutic INR 1.9, creatinine 1.25, glucose 153, BNP 570, procalcitonin normal. Chest CT showed findings suggestive of right middle lobe complete collapse, findings suggestive of mucoid impaction/aspiration. Also showed trace right pleural effusion. Noted mediastinal lymphadenopathy. EKG showed ventricular paced rhythm, QTc 492. Physical Exam: Vitals signs as noted above General Appearance:Obese, no apparent distress, Elderly Head: normocephalic, Atraumatic Eyes: normal inspection, EOMI Neck: supple, Trachea midline Respiratory/Chest: Decreased coarse breath sounds, scattered Rhonchi, No accessory muscle use Cardiovascular: S1, S2, +murmur,+Pacer Abdomen/GI:Soft, Non tender, Bowel sounds present Extremities/Musculoskeletal:normal inspection, 1+ B/L LE edema Neurologic/Psych:AAOX3, grossly no focal neurological deficits, +Decreased hearing Skin: normal color, warm Acute on Chronic Respiratory failure with hypoxia Acute COPD Exacerbation Secondary to RSV infection Right Middle Lobe collapse due to mucoid impaction Mediastinal/hilar lymphadenopathy CT Scan reviewed. Serology + for RSV Agree with IV Solu-Medrol, nebs, doxycycline, hypertonic saline, chest PT Aggressive pulmonary hygiene Aspiration precautions Pulmonary consulted Subtherapeutic INR Coumadin given Monitor INR I personally reviewed the record. Patient is interviewed and examined at bedside. Patient's care is coordinated with Wilda Castaneda PA-C. Please refer to the documentation above for details of patient's presentation and for discussion of other issues. Subjective 09/16/2023 The patient was seen and examined in telemetry unit in presence of the daughter She has been feeling much better and denies any symptoms at rest As per the daughter she is getting occasionally confused which has been going on for a long time She has had x-ray done this morning and that did show some improvement of lung collapse To be discharged home this afternoon Review of Systems Review of Systems: At least ten systems reviewed and negative except as noted in the HPI. Physical Exam Physical Exam: Sitting on a chair without any acute distress Constitutional: well developed, well nourished and + obese; not ill appearing Eyes: PERRL, conjunctivae normal, anicteric sclerae ENMT: external ear and nose normal, oropharynx normal Neck: trachea midline, no thyromegaly Respiratory: no respiratory distress Auscultation: + diminished lung sounds (Right lower lung) Cardiovascular: Rate/Rhythm: regular rate and regular rhythm; not tachycardic Heart Sounds: normal S1 and normal S2; no murmur Extremities: + edema (Trace to 1 edema bilaterally) Musculoskeletal: No acute arthritis involving any joint Neurologic: normal touch/pain/proprioception and moves all extremities; no focal motor deficits Lymphatic: no cervical or axillary lymphadenopathy Results & Data Results & Data Vital Signs (Past 12 Hours) Vital Signs Temp Pulse Pulse Pulse Pulse Resp Resp 09/16/23 15:45 36.6 C 74 19 09/16/23 14:38 93 H 81 18 09/16/23 11:49 37.5 C 66 20 09/16/23 08:00 69 09/16/23 08:00 09/16/23 07:51 36.6 C 66 19 09/16/23 07:30 78 18 Resp BP Pulse Ox Pulse Ox Pulse Ox O2 Del Method 09/16/23 15:45 121/74 95 Room Air 09/16/23 14:38 18 90 92 09/16/23 11:49 134/79 95 Room Air 09/16/23 08:00 09/16/23 08:00 Room Air 09/16/23 07:51 123/79 93 Room Air 09/16/23 07:30 93 Room Air Laboratory Results Short CBC 09/16/23 Range/Units 05:39 WBC 7.18 (4.8-10.8) K/ul Hgb 11.7 L (12.0-16.0) g/dl Hct 35.5 L (37.0-47.0) % Plt Count 266 (130-400) K/uL BMP 09/16/23 05:39 Sodium 139 Potassium 3.7 Chloride 100 Carbon Dioxide 28 BUN 43 H Creatinine 1.55 H Glucose 141 H Calcium 9.3 Medications Administered Current Inpatient Medications Acetaminophen (Acetaminophen 325 Mg Tab) 650 mg PO Q4H PRN PRN Reason: Pain or Fever Stop: 10/13/23 18:17 Dextrose (Dextrose 50% 50 Ml Syringe) 25 - 50 ml IV UD PRN; Protocol PRN Reason: Hypoglycemia Protocol Stop: 10/13/23 17:41 Diltiazem HCl (Diltiazem Hcl 240 Mg Capcr) 240 mg PO QAM [facility] Stop: 10/14/23 08:59 Last Admin: 09/16/23 09:08 Dose: 240 mg Doxycycline Hyclate (Doxycycline Hyclate 100 Mg Cap) 100 mg PO BID [facility] Stop: 09/20/23 20:59 Last Admin: 09/16/23 09:08 Dose: 100 mg Ergocalciferol (Ergocalciferol 50,000 Units 1250 Mcg Cap) 50,000 units PO Fr@0900 [facility] Stop: 10/16/23 08:59 Last Admin: 09/16/23 09:08 Dose: 50,000 units Furosemide (Furosemide 40 Mg Tab) 40 mg PO AMHS [facility] Stop: 10/13/23 20:59 Last Admin: 09/16/23 09:08 Dose: 40 mg Glucagon (Glucagon For Inj 1 Mg Vial) 1 mg SQ UD PRN; Protocol PRN Reason: Hypoglycemia Protocol Stop: 10/13/23 17:41 Glucose (Glucose 10 Tab/Tube) 4 - 8 tab PO UD PRN; Protocol PRN Reason: Hypoglycemia Treatment Stop: 10/13/23 17:41 Glucose (Glucose 40% Gel 15 Gm Tube) 15 - 30 gm PO UD PRN; Protocol PRN Reason: Hypoglycemia Protocol Stop: 10/13/23 17:41 Insulin Aspart (Insulin Aspart Per Unit Charge) 0 units SC ACHS [facility] Stop: 10/13/23 20:59 Last Admin: 09/16/23 12:55 Dose: 6 units Ipratropium [place] (Ipratropium [place] Neb Soln 0.02% 2.5 Ml Vial) 0.5 mg INH TODAY@1900 [facility] Stop: 10/14/23 13:59 Last Admin: 09/15/23 20:05 Dose: 0.5 mg Isosorbide Mononitrate (Isosorbide [place] Extended Rel 30 Mg Tabcr) [facility] [place]: 10/14/23 08:59 Last Admin: 09/16/23 09:08 Dose: 30 mg Levalbuterol HCl (Levalbuterol Hcl 0.63 Mg/3 Ml Neb) 0.63 mg NEB TODAY@1900 [facility] Stop: 10/14/23 13:59 Last Admin: 09/15/23 20:06 Dose: 0.63 mg Levothyroxine Sodium (Levothyroxine Sodium 75 Mcg Tablet) 75 mcg PO DAILYBB [facility] Stop: 10/14/23 06:29 Last Admin: 09/16/23 06:09 Dose: 75 mcg Metoprolol Succinate (Metoprolol Succ 50mg Ext Rel Tab) 100 mg PO BID [facility] Stop: 10/13/23 20:59 Last Admin: 09/16/23 09:09 Dose: 100 mg Miscellaneous (Carbohydrates For Hypoglycemia ) 15 - 30 gm PO UD PRN PRN Reason: Hypoglycemia Protocol Stop: 10/13/23 17:41 Montelukast Sodium (Montelukast Sodium 10 Mg Tablet) [facility] [place]: 10/14/23 08:59 Last Admin: 09/16/23 09:09 Dose: 10 mg Ondansetron HCl (Ondansetron Inj 2 Mg/Ml 2 Ml Vial) 4 mg IV Q6H PRN PRN Reason: Nausea Stop: 10/13/23 18:17 Pantoprazole Sodium (Pantoprazole 40 Mg Tab) [facility] [place]: 10/14/23 08:59 Last Admin: 09/16/23 09:09 Dose: 40 mg Polyethylene Glycol (Polyethylene (Miralax) 17 Gm Pack) 17 gm PO DAILY PRN PRN Reason: Constipation Stop: 10/13/23 18:17 Prednisone (Prednisone 20 Mg Tab) 40 mg PO DAILY [facility] Stop: 10/15/23 08:59 Last Admin: 09/16/23 09:08 Dose: 40 mg Rosuvastatin Calcium (Rosuvastatin Calcium 20 Mg Tab) 20 mg PO PM [facility] Stop: 10/13/23 20:59 Last Admin: 09/15/23 21:14 Dose: 20 mg Sodium Chloride (Sodium Chlor 7% 4 Ml Neb) 4 ml NEB BIDR [facility] Stop: 10/14/23 18:59 Last Admin: 09/16/23 07:26 Dose: 4 ml Warfarin Sodium (Warfarin Sod 5 Mg Tab) 5 mg PO SuTuWeThFrSa@1600 [facility] Stop: 10/14/23 15:59 Last Admin: 09/16/23 08:11 Dose: Not Given Warfarin Sodium (Warfarin Sod 2.5 Mg Tab) 2.5 mg PO Mo@1600 [facility] Stop: 10/19/23 15:59
--- NOTE | 2023-09-17 08:40 | Discharge Summary ---
Date of Service September 17, 2023 Admission HPI Per Admitting Provider This is an 88yo F with a PMH of chronic diastolic heart failure (EF of 55-60%, TTE 2019), valvular heart disease (mild TR, moderate MR, mild AR from TTE 2019), HTN, DAIN on CPAP HS with O2 2L bled through, pulmonary hypertension, SSS s/p cardiac pacemaker, anticoagulated on Coumadin, PVD, HTN, hyperlipidemia, hypothyroidism, DM2 on oral meds, CRI (baseline creatinine 1.3-1.4) and other medical problems listed below who presents from home with progressively worsening SOB over the past week. Has had a low grade fever, productive cough, nasal congestion and rhinorrhea over the past week after contact with a sick bethanie barone over [facility]. Typically wears 2L at night however she is also been using it during the day at 2 L/min. Patient noted to be on 3-4 L NC O2 in ED. No recent increased leg swelling or change in weight. No chills, lightheadedness, CP, N/V, abdominal pain, dysuria, diarrhea or constipation. Follows with [facility] pulmonology for COPD, pulm HTN and DAIN on CPAP. Admission Exam Per Admitting Provider Vitals signs as noted above General Appearance:Obese, no apparent distress, Elderly Head: normocephalic, Atraumatic Eyes: normal inspection, EOMI Neck: supple, Trachea midline Respiratory/Chest: Decreased coarse breath sounds, scattered Rhonchi, No accessory muscle use Cardiovascular: S1, S2, +murmur,+Pacer Abdomen/GI:Soft, Non tender, Bowel sounds present Extremities/Musculoskeletal:normal inspection, 1+ B/L LE edema Neurologic/Psych:AAOX3, grossly no focal neurological deficits, +Decreased hearing Skin: normal color, warm Principal Diagnosis COPD exacerbation, RSV infection, atrial fibrillation, chronic kidney disease Discharge Exam Sitting on a chair without any acute distress Constitutional well developed, well nourished and + obese; not ill appearing Eyes PERRL, conjunctivae normal, anicteric sclerae ENMT external ear and nose normal, oropharynx normal Neck trachea midline, no thyromegaly Respiratory no respiratory distress Auscultation: + diminished lung sounds (Right lower lung) Cardiovascular Rate/Rhythm: regular rate and regular rhythm; not tachycardic Heart Sounds: normal S1 and normal S2; no murmur Extremities: + edema (Trace to 1 edema bilaterally) Neurologic normal touch/pain/proprioception and moves all extremities; no focal motor deficits Lymphatic no cervical or axillary lymphadenopathy Discharge Data Allergies Allergy/AdvReac Type Severity Reaction Status Date / Time Penicillins Allergy Intermediate RASH Verified 09/13/23 15:51 glipizide AdvReac dizziness/c Verified 09/13/23 15:51 onfusion Consultations 09/13/23 15:47 ED Decision to Admit Stat 09/13/23 16:40 Consult Pulmonology Routine Ordered Studies 09/13/23 13:46 CT chest diagnostic w con Stat Hospital Course (1) Acute and chronic respiratory failure: (2) RSV (acute bronchiolitis due to respiratory syncytial virus): (3) COPD (chronic obstructive pulmonary disease): (4) Atrial fibrillation: (5) DM (diabetes mellitus), type 2: (6) CKD (chronic kidney disease), stage III: (7) Chronic diastolic heart failure: (8) Hypertension: Patient is an 88 yr female with H/O Chronic diastolic heart failure (EF of 55- 60%, TTE 2021), HTN, DAIN on CPAP HS with O2 2L bled through, pulmonary hypertension, SSS s/p cardiac pacemaker, anticoagulated on Coumadin, PVD, HTN, hyperlipidemia, hypothyroidism, DM2 on oral meds, CRI (baseline creatinine 1.3- 1.4) and other medical problems listed below who presents from home with prog ressively worsening SOB over the past week and was found to have acute on chronic respiratory failure in setting of RSV. Acute on Chronic Respiratory failure with hypoxia Acute COPD Exacerbation Secondary to RSV infection Right Middle Lobe collapse due to mucoid impaction Mediastinal/hilar lymphadenopathy --CT Chest:There is been interval development of complete collapse of the right middle lobe. The distal right lower lobe bronchi appear opacified. The proximal right middle lobe bronchus is patent. This is nonspecific but could be due to mucoid impaction/aspiration. Follow-up bronchoscopy recommended. Trace right pleural effusion. Mosaic attenuation within the lungs suggestive of air- trapping. Mild mediastinal and bilateral hilar lymphadenopathy. This has slightly progressed in the interval. Moderate cardiomegaly. --Biofire + RSV Transitioned IV Solu-Medrol to p.o. prednisone Continue DuoNebs, doxycycline, hypertonic saline, chest PT Aggressive pulmonary hygiene Aspiration precautions Appreciate pulmonary input Chest x-ray unchanged today Trial of BiPAP as per pulmonary No plan for bronchoscopy currently Clinically much better and the chest x-ray showed some improvement Sputum for culture and sensitivity was not sent Discussed with the potato peeling machine operator for possible discharge this afternoon Has had a 2 steps O2 saturation test and the patient does not require any oxygen Was discharged home this afternoon Atrial fibrillation Subtherapeutic INR on presentation Supratherapeutic INR today Continue diltiazem, metoprolol On Coumadin for anticoagulation INR 3.6 today Hold Coumadin today INR remains at 4-we will hold Coumadin for the next 2 days and start on Tuesday Chronic diastolic heart failure No recent weight gain, BLE at baseline per patient Continue home lasix dose Monitor volume status, I/Os, daily weight SSS S/p pacemaker placement. Paced rhythm on EKG CKD III Cr 1.25 (baseline mid-1s) Monitor with daily BMP HTN Continue home medications DM II HbA1c 6.8 Hold home agents SSI while in-patient BSG AC HS DVT Px: Coumadin--held INR supratherapeutic Code status: DNR/DNI Disposition PT OT prior to discharge Discussed with the daughter and the patient to be discharged home this afternoon Total Time Total Time Spent Total Time Spent (In Minutes): 25 minutes Discharge Plan Discharge Items Patient Disposition: Home - Self-Care Reason For Visit: ACUTE ON CHRONIC RESP FAILURE, RSV Discharge Diagnosis: COPD exacerbation, RSV infection, atrial fibrillation, chronic kidney disease Condition on Discharge: Good Activity: Resume your previous activity Non-emergency contact: Primary Care Provider Call non-emergency contact if: you have any medication questions and your symptoms worsen Follow-up/Referrals: Chad Phoeinx DO [Primary Care Provider] - (Date & Time 09/20/2023 4:20 PM Provider Chad Phoenix DO Department Family [facility] ) Krunal Sherwood MD [Outside Practitioners] - (Date & Time 11/01/2023 3:00 PM Provider Krunal Sherwood MD Department Pulmonary Medicine, [facility] ) Diet: Carb Consistent or DM2 Diet Texture: Easy to Chew Addtl Attending Provider Instructions: Please take precautions to avoid falls Finish the course of antibiotic and prednisone Please give appointment with your healthcare provider Restart Coumadin on Tuesday Pending Studies at Discharge: No Stand-Alone Forms: My [facility], Smoking Cessation Medications and DC Order Prescriptions: New doxycycline hyclate 100 mg Capsule 100 mg PO BID Qty: 12 0RF prednisone 20 mg Tablet 40 mg PO DAILY 2 Days Qty: 8 0RF Continued pantoprazole 40 mg Tablet,Delayed Release (Dr/Ec) 40 mg PO QAM Qty: 0 diltiazem HCl 240 mg Tablet Extended Release 24 Hr 240 mg PO QAM Qty: 0 metoprolol succinate 100 mg Tablet Extended Release 24 Hr 100 mg PO BID Qty: 0 Januvia 50 mg Tablet 50 mg PO QAM Qty: 0 levothyroxine 75 mcg Tablet 75 mcg PO DAILYBB 90 Days Qty: 90 rosuvastatin 20 mg tablet 20 mg PO PM ergocalciferol (vitamin D2) [Vitamin D2] 1,250 mcg (50,000 unit) Capsule 1,250 mcg PO WK Rx Instructions: ON FRIDAYS isosorbide mononitrate 30 mg Tablet Extended Release 24 Hr 30 mg PO QAM Qty: 30 0RF warfarin [Jantoven] 5 mg tablet 5 mg PO SUTUWETHSA@0900 montelukast 10 mg tablet 10 mg PO QAM furosemide 40 mg tablet 40 mg PO AMHS warfarin 5 mg Tablet 2.5 mg PO MOFR@0900 magnesium oxide 400 mg magnesium Tablet 400 mg PO BID Discharge Orders: Discharge Order (Routine); Ordered 09/16/23 Ordered By: Suellen Mcwilliams/Other Patient Handouts: Managing Type 2 Diabetes Admission Data Admit Date/Time: 09/13/23 16:02 Attending Provider: Suellen Rojo Admit Provider: Christian Martin Primary Care Provider: Chad Phoenix Other Providers: Troy Arizmendi; Christian Martin Other Interventions: Discharge Summary Assessment (RN) Last Done: 09/16/23 17:32
[2023-09-19] MEDS ORDERED: WARFARIN SOD 2.5 MG TAB PO SCH (16:00)
--- NOTE | 2023-09-22 11:20 | Coding Query ---
To promote full compliance with coding requirements relating to patient care, provider participation is requested in all cases of dental sales representative uncertainty. Please assist us with the question(s) below: Coding Question(s): The diagnosis below was documented in the 09/14 Pulmonary Consultation and the 09/15 Pulmonary Progress Note, then subsequently fell off all further documentation. Please indicate if it is still a possible diagnosis or ruled out. Physician's Response(s): RSV PNEUMONIA ( ) Diagnosed and POA ( ) Diagnosed and not POA ( ) Ruled out ( + ) Other (please specify) Documented RSV infection. MTDD
== END 2023-09-16 18:45 | disposition home or self-care (01) | DRG 190 ==
LOC: ED 12:26 → EDINP 16:02 → SUATTDRO 16:02 → 4W 09-14 19:22

== ENCOUNTER 2024-07-17 09:48 | Inpatient (IN) ==
[2024-07-17 10:34] LABS: Basophils # (auto) 0.02 K/uL (0.00-0.20); Basophils % (auto) 0.4 %; Eosinophils # (auto) 0.22 K/uL (0.00-0.50); Eosinophils % (auto) 4.3 %; Hematocrit (blood only) 28.7 % (37.0-47.0); Hemoglobin 9.2 g/dl (12.0-16.0); Immature Granulocytes # (auto) 0.02 K/uL (0.01-0.20); Immature Granulocytes % (auto) 0.4 %; Lymphocytes # (auto) 1.07 K/uL (1.20-3.40); Lymphocytes % (auto) 20.9 %; Mean Corpuscular Hemoglobin 28.8 pg (25.0-34.0); Mean Corpuscular Hgb Conc 32.1 g/dL (32.0-36.0); Mean Corpuscular Volume 89.7 fL (80.0-100.0); Mean Platelet Volume 10.1 fL (9.4-12.4); Monocytes # (auto) 0.85 K/uL (0.11-0.59); Monocytes % (auto) 16.6 %; Neutrophils # (auto) 2.95 K/uL (1.40-6.50); Neutrophils % (auto) 57.4 %; Platelet Count 166 K/uL (130-400); RDW Coefficient of Variation 15.7 % (11.5-14.5); RDW Standard Deviation 51.6 fL (36.4-46.3); White Blood Count 5.13 K/ul (4.8-10.8)
[2024-07-17 10:48] LABS: Albumin Globulin Ratio 1.9 (0.9-2); Albumin Level 3.7 gm/dl (3.4-5.0); BUN Creatinine Ratio 18.7 (10-20); Bilirubin,Total 0.9 mg/dl (0.2-1.0); Calcium 8.7 mg/dl (8.6-10.3); Creatinine Clr Calc Pharmacy 28.4 ml/min; Total Protein 5.7 gm/dl (6.0-8.3)
[2024-07-17 11:01] LABS: INR 2.9 (0.9-1.1); Partial Thromboplastin Ratio 1.4; Partial Thromboplastin Time 37 Seconds (21-31); Prothrombin Time 28.7 Seconds (9.0-12.0)
--- NOTE | 2024-07-17 11:29 | Emergency Department Note ---
Impression & Plan Acute blood loss anemia, Bleeding from varicose vein, Chronic anticoagulation ED Provider Note NAME: STACY GANDHI AGE: 89 SEX: F : 1935 ARRIVES VIA: Ambulance INFORMANT: Patient, daughter ED PROVIDER(S): Antonino Jean Baptiste MD CHIEF COMPLAINT: Leg bleeding MEDICAL DECISION MAKING: Patient presents due to concern for bleeding to a open area of the varicose vein. IV was established and blood work was obtained. Blood work shows a normal white count hemoglobin at 9.2. This is about a 2 point drop from prior in September although the day before was slightly lower at that time. The patient has been as low as the nines in March 2022. Patient's kidney function is unremarkable. INR is therapeutic at 2.9. Creatinine 1.34 which is at about the patient's baseline. Patient did have TXA and lidocaine with epi applied to gauze and applied to the area with associated pressure dressing. The patient dressing was broken down but still had associated strong bleeding. I did speak with on-call general surgery Judit Lockett PA-C and they stated they would evaluate the patient with Dr. Wick. They did recommend that the patient have her INR reversed. The patient was ordered IV vitamin K 10 mg. I did inform the patient and the patient's daughter of the plan of care. Patient was seen and evaluated. The dressing was not removed at the time of the general surgery evaluation with the recommended medical admission and repeat evaluation in the morning strict bedrest. I did speak the on-call hospital service. LOLA Lawler and Dr. Campuzano. Critical Care: I have personally spent 35 minutes of critical care time in direct management of this patient. This includes bedside care, interpretation of diagnostic studies, and testing, discussion with consultants, patient, and family members, and other require inpatient management activities. This 35 minutes is in excess of all separately billable procedures. Discussion w/ other healthcare providers: Velma Lawler PA-C and Dr. Campuzano inpatient medicine service Judit Hernandez PA-C and Dr. Wick general surgery Prior /Outside records reviewed: None Differential diagnosis: Coagulopathy, vascular injury, Diagnostics, as interpreted by me: ECG: None Cardiac monitoring: An order was placed for continuous cardiac monitoring. The monitor shows a rate of 62 with paced rhythm. Patient was placed on pulse oximetry Medical decision rules: None Imaging studies: None HPI: Patient presents due to concern for bleeding from a varicose vein that she noticed this morning while in the shower. The patient is unsure as to how long it was bleeding for but noticed a lot of blood at the base into the shower. The patient does take Jantoven for known history of A-fib and believes that she last took yesterday. Patient denies any chest pains or shortness of breath no lightheadedness or dizziness. The patient denies any trauma or shaving to the area. PAST MEDICAL HISTORY: See Below PAST SURGICAL HISTORY: See Below SOCIAL HISTORY: See Below HOME MEDICATIONS: See Below ALLERGIES: See Below VITALS: See Below PHYSICAL EXAMINATION: GENERAL: NAD, non-toxic. EYE EXAM: Normal conjunctiva. PERRL, no anisocoria and EOM's grossly intact w/o pain. OROPHARYNX: Moist mucus membranes, grossly normal dentition. NECK: Trachea midline, no stridor. Supple, no nuchal rigidity, no adenopathy, non-tender. No signs of meningismus. FROM of the neck with good chin to chest and neck extension. LUNGS: Clear to auscultation. Normal chest wall mechanics. HEART: NSR, no MRG. ABDOMEN: Abdomen soft, non-tender, no masses, no rebound or guarding. BACK: No CVA TTP. SKIN: No rashes and no bruising. UPPER EXTREMITIES: Upper extremities are grossly normal. LOWER EXTREMITIES: Varicose veins noted throughout the bilateral lower extremities, area of varicose bleeding you will aspect at the distal left thigh strong in nature but not pulsatile. Neurovasc intact distally. NEURO EXAM: A&O x3, cranial nerves II-XII grossly intact, normal speech, moves all 4 extremities. Past Med/Surg History Problem List (Updated 07/17/24 @ 19:53 by Antonino Jean Baptiste MD) Chronic anticoagulation (Acute) Acute blood loss anemia (Acute) Bleeding from varicose vein (Acute) Respiratory syncytial virus (RSV) (Acute) Acute on chronic respiratory failure (Acute) Right middle lobe pneumonia Chronic diastolic heart failure COPD (chronic obstructive pulmonary disease) CKD (chronic kidney disease), stage III RSV (acute bronchiolitis due to respiratory syncytial virus) DM (diabetes mellitus), type 2 Acute and chronic respiratory failure Dyspnea (Acute) Supratherapeutic INR Colon arteriovenous malformation Acute on chronic right heart failure Acute GI bleeding (Acute) Anemia (Acute) Symptomatic anemia (Acute) Acute dyspnea (Acute) Atrial fibrillation (Chronic 04/18/13) Diabetes (Chronic) Shoulder pain, left (Chronic 08/26/14) Hypertensive urgency (Chronic) CHF (congestive heart failure) (Chronic) Asthma (Chronic) Acute bronchitis (Acute) Anticoagulated on Coumadin (Acute) Blood in left ear canal (Acute) CHF exacerbation (Acute) Cellulitis (Acute) Chest pain (Acute) Hypertension (Acute) Supratherapeutic INR (Acute) Medical History Hypertension Cardiac pacemaker in situ Tachy-pham syndrome Atrial fibrillation Acute on chronic diastolic CHF (congestive heart failure), NYHA class 3 MACARIO (dyspnea on exertion) Acute dyspnea Acute exacerbation of congestive heart failure Acute decompensated heart failure Family History Other Alzheimer disease Breast cancer Social History Smoking Status: Never smoker Second Hand Exposure: No; Do You Dip or Chew Tobacco: No; Hx Alcohol Use: No Hx Substance Use: No Preferred Language: Thai Communication Ability: Effective Industrial Ecology Technician Required: No Beliefs That Will Affect Care: None marital status: Current Living Situation: Family Current Living Situation Comment: spouse, daughter, son, daughter in law, grandchildren Other Information That Helps Us Care for You: No Feels Safe at Home: Yes Safety Concerns: Feels Safe At This Time Assistive Devices: CPAP, Denture - Upper, Denture - Lower, Hearing Aid - Left, Oxygen - at Night and Walker Allergies Allergies Allergy/AdvReac Type Severity Reaction Status Date / Time Penicillins Allergy Intermediate RASH Verified 07/17/24 14:58 glipizide AdvReac dizziness/c Verified 07/17/24 14:58 onfusion Home Meds Home Medications Medication Instructions Recorded Confirmed pantoprazole 40 mg tablet,delayed 40 mg PO QAM ##0 12/25/14 07/17/24 release diltiazem HCl 240 mg 240 mg PO QAM ##0 09/30/17 07/17/24 tablet,extended release 24 hr metoprolol succinate 100 mg 100 mg PO BID ##0 10/15/17 07/17/24 tablet,extended release 24 hr sitagliptin phosphate 50 mg tablet 50 mg PO QAM #0 tabs 02/22/18 07/17/24 (Januvia) levothyroxine 75 mcg tablet 75 mcg PO DAILYBB 90 days #90 tabs 05/25/18 07/17/24 rosuvastatin 20 mg tablet 20 mg PO PM 04/14/19 07/17/24 furosemide 40 mg tablet 40 mg PO AMHS 09/13/23 07/17/24 magnesium oxide 400 mg PO QAM 09/13/23 07/17/24 montelukast 10 mg tablet 10 mg PO QAM 09/13/23 07/17/24 warfarin 5 mg tablet See Rx Instructions .Route .COMPLEX 09/13/23 07/17/24 isosorbide mononitrate 30 mg 15 mg PO QAM 07/17/24 07/17/24 tablet,extended release 24 hr Results & Data (ED) Vital Signs Vital Signs - 24 hr 07/17/24 09:36 07/17/24 09:36 07/17/24 09:36 Temperature 36.6 C 36.6 C Temperature Source Oral Oral Pulse Rate 69 Pulse Rate [Right Finger] Pulse Rhythm Regular Pulse Rhythm [Right Finger] Pulse Strength Normal Pulse Strength [Right Finger] Respiratory Rate 20 18 Respiratory Effort / Characteristics Non-Labored Spontaneous Non-Labored Spontaneous Respiratory Depth Normal Normal Respiratory Pattern Blood Pressure 129/70 Blood Pressure [Left Arm] 114/62 Blood Pressure Mean 89 Blood Pressure Mean [Left Arm] 79 Blood Pressure Position Lying Blood Pressure Position [Left Arm] Lying Pulse Oximetry 94 98 95 Oxygen Delivery Method Room Air Room Air Room Air Sepsis Recent Fever Within 48 Hours No Sepsis New/Unexplained Change in Mental Status No Sepsis Action Taken by Nursing No Action Required 07/17/24 10:23 07/17/24 11:36 07/17/24 13:00 Temperature Temperature Source Pulse Rate 60 Pulse Rate [Right Finger] 66 60 Pulse Rhythm Pulse Rhythm [Right Finger] Regular Regular Pulse Strength Pulse Strength [Right Finger] Normal Normal Respiratory Rate 22 22 Respiratory Effort / Characteristics Non-Labored Spontaneous Non-Labored Spontaneous Respiratory Depth Normal Normal Respiratory Pattern Regular Blood Pressure Blood Pressure [Left Arm] 141/58 H 150/70 H Blood Pressure Mean Blood Pressure Mean [Left Arm] 85 96 Blood Pressure Position Blood Pressure Position [Left Arm] Lying Lying Pulse Oximetry 94 95 Oxygen Delivery Method Room Air Room Air Sepsis Recent Fever Within 48 Hours Sepsis New/Unexplained Change in Mental Status Sepsis Action Taken by Nursing 07/17/24 15:00 07/17/24 15:42 07/17/24 17:00 Temperature Temperature Source Pulse Rate 62 Pulse Rate [Right Finger] 60 62 Pulse Rhythm Pulse Rhythm [Right Finger] Pulse Strength Pulse Strength [Right Finger] Respiratory Rate 17 18 Respiratory Effort / Characteristics Non-Labored Spontaneous Non-Labored Spontaneous Respiratory Depth Normal Normal Respiratory Pattern Regular Blood Pressure Blood Pressure [Left Arm] 118/69 173/79 H Blood Pressure Mean Blood Pressure Mean [Left Arm] 85 110 Blood Pressure Position Blood Pressure Position [Left Arm] Pulse Oximetry 99 96 Oxygen Delivery Method Room Air Room Air Sepsis Recent Fever Within 48 Hours Sepsis New/Unexplained Change in Mental Status Sepsis Action Taken by Usp Medications Current Medication List: was personally reviewed by me Laboratory Data Attestation: I reviewed the patient's lab results. 07/17/24 17:34 07/17/24 09:55 Lab Results 07/17/24 Range/Units 09:55 WBC 5.13 (4.8-10.8) K/ul RBC 3.20 L (4.20-5.40) M/uL Hgb 9.2 L (12.0-16.0) g/dl Hct 28.7 L (37.0-47.0) % MCV 89.7 (80.0-100.0) fL MCH 28.8 (25.0-34.0) pg MCHC 32.1 (32.0-36.0) g/dL RDW Std Deviation 51.6 H (36.4-46.3) fL RDW Coeff of Popeye 15.7 H (11.5-14.5) % Plt Count 166 (130-400) K/uL MPV 10.1 (9.4-12.4) fL Immature Gran % (Auto) 0.4 % Neut % (Auto) 57.4 % Lymph % (Auto) 20.9 % [place] % (Auto) 16.6 % Eos % (Auto) 4.3 % Baso % (Auto) 0.4 % Neut # (Auto) 2.95 (1.40-6.50) K/uL Lymph # (Auto) 1.07 L (1.20-3.40) K/uL [place] # (Auto) 0.85 H (0.11-0.59) K/uL Eos # (Auto) 0.22 (0.00-0.50) K/uL Baso # (Auto) 0.02 (0.00-0.20) K/uL Immature Gran # (Auto) 0.02 (0.01-0.20) K/uL PT 28.7 H (9.0-12.0) Seconds INR 2.9 H (0.9-1.1) APTT 37 H (21-31) Seconds PTT Ratio 1.4 Sodium 138 (136-145) mmol/L Potassium 4.0 (3.5-5.1) mmol/L Chloride 101 (98-107) mmol/L Carbon Dioxide 31 (21-32) mmol/L Anion Gap 6 (3-11) BUN 25 H (6-23) mg/dl Creatinine 1.34 H (0.6-1.2) mg/dl Est Cr Clr Drug Dosing 28.4 ml/min eGFR 37.90 BUN/Creatinine Ratio 18.7 (10-20) Glucose 124 H (70-99(Fasting)) mg/dl Calcium 8.7 (8.6-10.3) mg/dl Total Bilirubin 0.9 (0.2-1.0) mg/dl AST 20 (13-39) U/L ALT 14 (7-52) U/L Alkaline Phosphatase 99 (34-104) U/L Total Protein 5.7 L (6.0-8.3) gm/dl Albumin 3.7 (3.4-5.0) gm/dl Globulin 2.0 L (2.5-4.0) gm/dl Albumin/Globulin Ratio 1.9 (0.9-2) Administered Medications Discontinued Medications Phytonadione 10 mg/ Dextrose 51 mls @ 102 mls/hr IV ONE ONE Stop: 07/17/24 14:50 Last Infusion: 07/17/24 15:45 Dose: Infused Documented By: Admin: 07/17/24 15:06 Dose: 102 mls/hr Documented By: RENY Lidocaine/Epinephrine (Lidocaine 1%/Epinephrine 1:100,000 50 Ml Vial) 10 ml INFIL NOW ONE Stop: 07/17/24 12:03 Last Admin: 07/17/24 12:33 Dose: 10 ml Documented By: NAMAN Tranexamic Acid (Txa 10% Non-Iv Routes 100 Mg/Ml Vial) 1,000 mg TOP ONE ONE Stop: 07/17/24 12:03 Last Admin: 07/17/24 12:33 Dose: 1,000 mg Documented By: NAMAN Discharge Plan Visit Data Chief Complaint: Bleeding Stated Complaint: varicose vein ED Provider: Antonino Jean Baptiste Discharge Problem: Acute blood loss anemia, Bleeding from varicose vein, Chronic anticoagulation Patient Disposition: Admitted As Inpatient Discharge Instructions Interventions: ED Discharge Assessment Last Done: 07/17/24 18:31
[2024-07-17] MEDS: TXA 10% Non-IV Routes 100 MG/ML VIAL TOP ONE (12:33)
[2024-07-17] MEDS: LIDOCAINE 1%/EPINEPHRINE 1:100,000 50 ML VIAL INFIL ONE (12:33)
[2024-07-17] MEDS: PHYTONADIONE 10 MG in DEXTROSE 5% 50 ML IV ONE (15:06)
--- OUTSIDE RECORDS SUMMARY | 2024-07-17 15:41 | External Medical Summary | Summary of Care ---
Author Name Unknown Organization [facility] Address [address] [place] [address] Phone [phone] Care Team Providers Care Equipment Or Machinery Cleaner Name Role Phone JrogitoChad hager Primary Care Provider [phone] Encounter Details Date Type Department Care Team (Late st Contact Info) Description 07/17/2024 Population Health External Data Unspecified Department Allergies Active Allergy Reactions Criticality Noted Date Comments Glipizide 02/18/2021 Dizzy, confusion Latex Rash 04/05/2024 Penicillins Rash 10/13/2001 documented as of this encounter (statuses as of 07/17/2024) Medications Medication Sig Dispensed Refills Start Date End Date Status NEBULIZER MISCIndications:Acut e bronchitis, complicated use every 8 hrs as directed 1 Units 0 03/19/2011 Active SPACER/AERO CHAMBER MOUTHPIECE MISCIndications:Shor tness of breath use with inhalers as instructed 1 Device 2 05/10/2012 Active ONETOUCH ULTRASOFT LANCETS MISCIndications:DM type 2, goal A1c below 7 Test up to 4 times daily 5 Box Dosing Unit 10 12/18/2015 Active acetaminophen (TYLENOL) 500 MG Tablet Take 1 Tablet by mouth every 4 hours as needed for Pain. Per [facility] dc summary 06/26/18 Active triamcinolone acetonide (ARISTOCORT) 0.1 % ointmentIndications: Eczema of right external ear Apply topically to affected area 2 times a day. To affected area on R external ear 60 g 04/06/2019 Active OneTouch Verio In Vitro Strip (Glucose Blood) test once daily Dx. E11.9 100 Strip 3 05/04/2021 Active Albuterol Sulfate (2.5 MG/3ML) 0.083% Inhalation Nebulization Solution (Proventil)Indicatio ns:COPD, group B, by GOLD 2017 classification ([facility]) Inhale 1 Vial via nebulizer every 4 hours as needed for Wheezing or Shortness of Breath. 90 mL 3 10/20/2022 Active oxygen IN GAS Increase to 3 LPM bled through CPAP with all sleep. T and B medical 1 Each 12/20/2022 Active Levothyroxine Sodium 75 MCG Oral Tablet (Levoxyl)Indications :Acquired hypothyroidism TAKE 1 TABLET BY MOUTH EVERY MORNING AT LEAST 30 MINUTES PRIOR TO BREAKFAST OR OTHER MEDICATIONS 90 Tablet 3 08/01/2023 Active Pantoprazole Sodium 40 MG Oral Tablet Delayed Release (Protonix) TAKE 1 TABLET BY MOUTH ONCE DAILY 90 Tablet 3 10/28/2023 Active dilTIAZem HCl ER 240 MG Oral Capsule Extended Release 24 HourIndications:Long standing persistent atrial fibrillation (HCC) TAKE 1 CAPSULE BY MOUTH ONCE DAILY 90 Capsule 3 01/27/2024 Active Montelukast Sodium 10 MG Oral Tablet (Singulair) TAKE 1 TABLET BY MOUTH EVERY MORNING 90 Tablet 3 01/26/2024 Active Januvia 50 MG Oral TabletIndications:Ty pe 2 diabetes mellitus with stage 3 chronic kidney disease, without long-term current use of insulin, unspecified whether stage 3a or 3b CKD (HCC) Take 1 Tablet by mouth in the morning. In the morning.. 30 Tablet 5 02/01/2024 Active Metoprolol Succinate ER 100 MG Oral Tablet Extended Release 24 Hour (toPROL XL) TAKE 1 TABLET BY MOUTH TWICE DAILY 180 Tablet 1 04/25/2024 Active Warfarin Sodium 5 MG Oral Tablet (Jantoven)Indication s:Persistent atrial fibrillation (HCC) Take 1/2 to 1 tablet by mouth daily as directed by [facility] 90 Tablet 1 04/25/2024 Active Rosuvastatin Calcium 20 MG Oral Tablet (Crestor) TAKE 1 TABLET BY MOUTH ONCE DAILY 90 Tablet 05/24/2024 Active Furosemide 40 MG Oral Tablet (Lasix)Indications:H eart failure, diastolic, due to HTN ([facility]) TAKE ONE TABLET BY MOUTH IN THE MORNING AND ONE TABLET BEFORE BEDTIME 180 Tablet 1 05/24/2024 Active Magnesium Oxide 400 MG Oral Tablet Take 1 Tablet by mouth in the morning. 06/05/2024 Active Isosorbide Mononitrate ER 30 MG Oral Tablet Extended Release 24 Hour (Imdur) Take 0.5 Tablets by mouth in the morning. In the morning.. 45 Tablet 3 06/05/2024 Active Zoster Vac Recomb Adjuvanted 50 MCG/0.5ML Intramuscular Suspension Reconstituted (Shingrix) Inject 0.5 mL into a large muscle now and repeat dose in 60 to 180 days 1 Each 1 06/05/2024 Active documented as of this encounter (statuses as of 07/17/2024) Active Problems Problem Noted Date Diagnosed Date Acute respiratory failure with hypoxia Nocturnal hypoxemia 12/08/2022 Permanent atrial fibrillation 11/24/2021 [...] secondary renal 10/29/2019 Paroxysmal atrial fibrillation 10/29/2019 DAIN (obstructive sleep apnea) 03/07/2019 Pulmonary HTN 03/07/2019 Sensorineural hearing loss (SNHL) of right ear 1 10/22/2017 Hypertensive heart disease w ith diastolic heart failure and stage 3 chronic kidney disease 05/16/2018 Acquired hypothyroidism 05/16/2018 Moderate mitral regurgitation by prior echocardi ogram 10/18/2017 [facility] 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 therapy 0 10/18/2017 [...] as of this encounter (statuses as of 07/17/2024) Resolved Problems Problem Noted Date Diagnosed Date Resolved Date Coronary artery disease invo lving enterprise heart without angina pectoris 04/18/2019 10/29/2019 COPD, group B, by GOLD 2017 classification 03/19/2019 11/11/2023 Overview: Per COPD GOLD Classification Chronic hypoxemic respiratory failure 08/22/2018 04/22/2022 Kidney disease, chronic, sta ge IV (GFR 15-29 ml/min) 07/14/2018 07/24/2018 Hyperkalemia 07/14/2018 11/11/2023 COPD, moderate 04/03/2015 03/21/2019 Overview: Per COPD [...] 08/29/2018 Overview: Per CKD protocol #1 terminal supervisor current use of 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 therapy 03/05/2011 02/13/2019 Asthma with severity to be determined 04/02/2010 03/20/2013 Overview: Per Asthma Taxonomy ICD-10 update of inactive term Asthma, mild persistent 04/02/2010 07/02/2017 Overview: PER PROVIDER PROTOCOL. Obesity, morbid (more [...] as of this encounter (statuses as of 07/17/2024) Immunizations Name Administration Dates Next Due COVID-19 mRNA, LNP-s, No Pre serve, 2-Dose Series (Moderna) 12/09/2020,11/11/2020 COVID-19, mRNA, LNP-s, PF, B ooster, 100mcg/0.5mg (Moderna) 09/23/2021 H1N1 2009 Influenza, IM 11/18/2009 Pneumococcal Conjugate Vacc, 13 Valent (Prevnar) 12/17/2015 Pneumococcal Polysaccharide PPV23 (Pneumovax) 02/16/2010 Season Influenza, Quad, PF, Adjuvanted, 65+ Yrs, IM (FLUAD) 09/01/2020 Seasonal Influenza Vac., MDV , IM, 0.5 mL (Fluzone) 07/14/2016,07/17/2014,07/03/2013,08/09,07/07/2011,07/14/2010,07/15/2009 ,07/24/2008,07/12/2007,07/15/2006 Seasonal Influenza, High Dos e, Trivalent, PF, IM (Fluzone HD) 07/01/2017 Seasonal Influenza, PF, 6 M & above, IM , (FluLaval or Fluzone) 07/21/2018 Seasonal Influenza, Quadriva lent Hd (Fluzone Hd) 07/25/2023,06/30/2022,07/02/2021 Seasonal Influenza, Quadriva lent, No Preserve, IM 08/08/2015 Seasonal Influenza, Trivalen t, Adjuvanted, 65+ YRS, PF, (Fluad) 08/08/2019 TDAP (age 10 and older)(Boostrix) 09/02/2014 Zoster Vaccine Recombinant (Shingrix) 06/05/2024 documented as of this encounter Social History Tobacco Use Types Packs/Day Years Used Date Smoking Tobacco: Never Passive Smoke Exposure: Past Smokeless Tobacco: Never Alcohol Use Standard Drinks/Week Comments Yes 0 (1 standard drink = 0.6 oz pur e alcohol) occasional PHQ-2 Answer Date Recorded PHQ Adult Total Score 0 09/21/2023 Hunger Vital Sign Answer Date Recorded Within the past 12 months, y ou worried that your food would run out before you got the money to buy more. Never true 09/21/20 23 Within the past 12 months, t he food you bought just didn't last and you didn't have money to get more. Never true 09/21/2023 Childcare Answer Date Recorded Do you feel overwhelmed with taking care of a child, family member or friend? No 09/21/2023 Does your family need help f inding childcare? (Household - for ages 0-17 years) Not on file 09/21/2023 Clothing Answer Date Recorded Have you been unable to get clothing when it was really needed? No 09/21/2023 Is your family able to get c lothes or diapers when needed? (Household - for ages 0-17 years) Not on file 09/21/2023 Personal Safety Answer Date Recorded Do you feel unsafe or have concerns for your saf ety? No 09/21/2023 Do you have concerns for you r family's safety? (Household - for ages 0-17 years) Not on file 09/21/2023 Utilities Answer Date Recorded Do you have trouble paying y our heating, water, or electric bill? No 09/21/2023 Is your family able to pay t he heat, water, or electric bill? (Household - for ages 0-17 years) Not on file 09/21/2023 Does your family have access to good internet? (Household - for ages 0-17 years) Not on file 09/21/2023 Employment Status Answer Date Recorded Are you unemployed or without regular income? No 09/21/2023 Does the household have a re gular source of income? (Household - for ages 0-17 years) Not on file 09/21/2023 Social Connections Answer Date Recorded How often do you feel lonely or isolated from th ose around you? Never 09/21/2023 Financial Resource Strain Answer Date R ecorded Do you have any trouble payi ng for your medications, or do you think you might in the future? No 09/21/2023 Does your family have troubl e paying for medicine? (Household - for ages 0-17 years) Not on file 09/21/2023 Transportation Needs Answer Date Record ed READ ONLY Do you have troubl e getting a ride to medical visits or work? Never True 09/21/2023 Does your family have a hard time getting a ride to doctors visits? (Household - for ages 0-17 years) Not on file 09/21/2023 Has lack of transportation k ept you from medical appointments, meetings, work, or from getting things needed for daily living? Check all that apply. (Adult - for ages 18 years and over) Not on file 09/21/2023 Do you (or your family) have trouble finding or paying for a ride (transportation)? (Household - for ages 0-17 years) Not on file 09/21/2023 Housing Stability Answer Date Recorded Do you currently live in a s helter or have no steady place to sleep at night? No 09/21/2023 READ ONLY Do you think you a re at risk of becoming homeless? No 09/21/2023 Does your family worry about paying for your home or becoming homeless? (Household - for ages 0-17 years) Not on file 1 11/22/2022 Are you homeless or worried that you might be in the future? (Adult - for ages 18 years and over) Not on file Are you (or your family) douglas eless or worried that you might be in the future? (Household - for ages 0-17 years) Not on file Food Insecurity Answer Date Recorded Do you need food for this week? No 09/21/2023 Are you able to get enough f ood for your family? (Household - for ages 0-17 years) Not on file 09/21/2023 Does your family need food t his week? (Household - for ages 0-17 years) Not on file 09/21/2023 Do you always have enough fo od for your family? (Household - for ages 0-17 years) Not on file 09/21/2023 Sex and Gender Information Value Date Recorded [...] Care Team (Late st Contact Info) Description 07/17/2024 3:30 PM EDT Anticoagulation Pharmacy, [facility] [place] [address] [place] [address] Pharmacist1, [facility] [address] [facility] [place] [address] 09/18/2024 8:40 AM EST Office Visit Podiatry [facility] [address] [facility] [place] [address] Bryanna Guzman, DPM 132 [facility] [place] [address] 10/15/2024 3:00 PM EST Office Visit Cardiology, [facility] 132 [facility] [place] [address] Yeni Laureano CRNP [address] [facility] [place] [address] 01/02/2025 3:00 PM EDT Office Visit Family Practice [facility] [address] [facility] [place] [address] Chad Phoenix, DO [address] [facility] [place] [address] 04/30/2025 3:00 PM EDT Office Visit Pulmonary Medicine, [facility] 132 [facility], [place] [address] Krunal Sherwood MD [address] [facility] [place] [address] Health Maintenance Due Date Last Done Comments Adult Wellness Visit 04/15/2022 04/15/2021 Diabetic Eye Exam 06/06/2024 06/06/2023, , 12/06/2022, Additional history exists COVID-19 Vaccine ( season) 2024 09/23/2021, 12/09/2020, 11/11/2020 Influenza Vaccine (FLU shot) (#1) 2024 09/16/2023, 07/25/2023, 06/30/2022, Additional history exists Zoster Vaccines (2 of 2) 07/31/2024 06/05/2024 DTap/Tdap Vaccines (2 - Td or Tdap) 09/02/2024 09/02/2014 Depression Screening 09/21/2024 09/21/2023 HbA1c 11/04/2024 05/04/2024, 01/0 11/2023, 04/05/2023, Additional history exists Albumin/Creatinine Ratio 05/04/2025 024, 10/26/2022, 12/08/2021, Additional history exists TSH 05/04/2025 05/04/2024, 03/11, 04/14/2022, Additional history exists Diabetic Foot Exam 06/05/2025 06/05/2024, 0 10/26/2022, 11/24/2021, Additional history exists Pneumococcal Vaccine: 65+ Years Completed 12/17/2015, 02/16/2010 HPV (Gardasil) Vaccine Aged Out No lo nger eligible based on patient's age to complete this topic Hepatitis B Vaccine Aged Out No longe r eligible based on patient's age to complete this topic MENINGOCOCCAL (MENACTRA/MENVEO) Aged Out No longer eligible based on patient's age to complete this topic documented as of this encounter Medical Devices Not on filedocumented as of this encounter Advance Directives * Full Code (Latest Code Status on File) Date Activated Date Inactivated Comments 02/21/2015 7:41 AM 02/21/2015 2:10 PM This order r eflects the patients wishes and were consensually agreed upon. Question Answer Comments Discussion of Advance Directives occurred with: Not Discussed Healthcare Agents on File Name Relationship Healthcare Agent Relationship Communication Rusty May Spouse First Alternate Health Care Agent (per Health Care Power of Profiling Machine Set Up Operator Tool document) DAVID JojoKHADRA Adult Child Second Alternate Health Care Agent (per Health Care Power of Profiling Machine Set Up Operator Tool document) Care Teams Equipment Or Machinery Cleaner Relationship Specialty Start Date End Date Chad Phoenix DO [address] [place] [address] PCP - General Family Medicine 06/02/18 documented as of this encounter
--- OUTSIDE RECORDS SUMMARY | 2024-07-17 15:41 | External Medical Summary | Summary of Care ---
Author Name Unknown Organization [facility] Address [address] [place] [address] Phone [phone] Care Team Providers Care Architectural Examiner Name Role Phone JorgitoChad hager Primary Care Provider [phone] Encounter Details Date Type Department Care Team (Late st Contact Info) Description 07/16/2024 Population Health External Data Unspecified Department Allergies Active Allergy Reactions Criticality Noted Date Comments Glipizide 02/18/2021 Dizzy, confusion Latex Rash 04/05/2024 Penicillins Rash 10/13/2001 documented as of this encounter (statuses as of 07/16/2024) Medications Medication Sig Dispensed Refills Start Date [...] B, by GOLD 2017 classification ([facility]) Inhale 1 Vial via nebulizer [...] tablet by mouth daily as directed by [facility] 90 Tablet 1 04/25/2024 Active Rosuvastatin Calcium 20 MG Oral Tablet (Crestor) TAKE 1 TABLET BY MOUTH ONCE DAILY 90 Tablet 05/24/2024 Active Furosemide 40 MG Oral Tablet (Lasix)Indications:H eart failure, diastolic, due to HTN ([facility]) TAKE ONE TABLET BY MOUTH IN THE [...] as of this encounter (statuses as of 07/16/2024) Active Problems Problem Noted Date Diagnosed Date [...] mitral regurgitation by prior echocardi ogram 10/18/2017 [facility] 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 therapy 0 10/18/2017 [...] as of this encounter (statuses as of 07/16/2024) Resolved Problems Problem Noted Date Diagnosed Date Resolved Date Coronary artery disease invo lving [place] heart without angina pectoris 04/18/2019 10/29/2019 COPD, [...] 02/28/2012 08/29/2018 Overview: Per CKD protocol #1 intermediate frame tender current use of 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 therapy 03/05/2011 [...] as of this encounter (statuses as of 07/16/2024) Immunizations Name Administration Dates Next Due COVID-19 [...] 07/17/2024 3:30 PM EDT Anticoagulation Pharmacy, [facility] [place] [address] [place] [address] Pharmacist1, [facility] [address] [facility] [place] [address] 09/18/2024 8:40 AM EST Office Visit Podiatry [facility] 132 [facility] [place] [address] Bryanna Guzman, DPM 132 [facility] [place] [address] 10/15/2024 3:00 PM EST Office Visit Cardiology, [facility] 132 [facility] [place] [address] Yeni [facility] [address] 01/02/2025 3:00 PM EDT Office Visit Family Practice [facility] 200 [facility] [place] [address] Chad Phoenix, DO 200 [facility] [place] [address] 04/30/2025 3:00 PM EDT Office Visit Pulmonary Medicine, [facility] 132 [facility], [place] [address] Krunal Sherwood MD [address] [facility] [place] [address] Health Maintenance Due Date Last Done Comments [...] Care Agent (per Health Care Power of Supervisor Carding document) DAVID JojoKHADRA Adult Child Second Alternate Health Care Agent (per Health Care Power of Supervisor Carding document) Care Teams Architectural Examiner Relationship Specialty Start Date End Date Chad Phoenix DO [address] [place] [address] PCP - General Family Medicine 06/02/18 documented as of this encounter
--- OUTSIDE RECORDS SUMMARY | 2024-07-17 15:42 | External Medical Summary | Summary of Care ---
Author Name Unknown Organization [facility] Address [address] [place] [address] Phone [phone] Care Team Providers Care Senior Electrical Controls Engineer Name Role Phone JorgitoChad hager Primary Care Provider [phone] Encounter Details Date Type Department Care Team (Late st Contact Info) Description 07/12/2024 Population Health External Data Unspecified Department Allergies Active Allergy Reactions Criticality Noted Date Comments Glipizide 02/18/2021 Dizzy, confusion Latex Rash 04/05/2024 Penicillins Rash 10/13/2001 documented as of this encounter (statuses as of 07/12/2024) Medications Medication Sig Dispensed Refills Start Date [...] ns:COPD, group B, by GOLD 2017 classification ([facility]) Inhale 1 Vial via nebulizer every 4 [...] tablet by mouth daily as directed by [facility] 90 Tablet 1 04/25/2024 Active Rosuvastatin Calcium 20 MG Oral Tablet (Crestor) TAKE 1 TABLET BY MOUTH ONCE DAILY 90 Tablet 05/24/2024 Active Furosemide 40 MG Oral Tablet (Lasix)Indications:H eart failure, diastolic, due to HTN ([facility]) TAKE ONE TABLET BY MOUTH IN THE [...] as of this encounter (statuses as of 07/12/2024) Active Problems Problem Noted Date Diagnosed Date [...] mitral regurgitation by prior echocardi ogram 10/18/2017 [facility] 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 therapy 0 10/18/2017 [...] as of this encounter (statuses as of 07/12/2024) Resolved Problems Problem Noted Date Diagnosed Date Resolved Date Coronary artery disease invo lving [place] heart without angina pectoris 04/18/2019 10/29/2019 COPD, [...] 08/29/2018 Overview: Per CKD protocol #1 intermediate card tender current use of 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 therapy [...] as of this encounter (statuses as of 07/12/2024) Immunizations Name Administration Dates Next Due COVID-19 [...] 3:30 PM EDT Anticoagulation Pharmacy, [facility] [place] [address] [place] [address] Pharmacist1, [facility] [address] [facility] [place] [address] 09/18/2024 8:40 AM EST Office Visit Podiatry [facility] [address] [facility] [place] [address] Bryanna Guzman, DPM [address] [facility] [place] [address] 10/15/2024 3:00 PM EST Office Visit Cardiology, [facility] [address] [facility] [place] [address] Yeni Laureano CRNP [facility] [address] 01/02/2025 3:00 PM EDT Office Visit Family Practice [facility] 200 [facility] [place] [address] Chad Phoenix, DO [address] [facility] [place] [address] 04/30/2025 3:00 PM EDT Office Visit Pulmonary Medicine, [facility] 132 [facility], [place] [address] Krunal Sherwood MD [address] [facility] [place] [address] Health Maintenance Due Date Last Done Comments [...] Care Agent (per Health Care Power of Electrical Tech/Project Manager document) DAVID JojoKHADRA Adult Child Second Alternate Health Care Agent (per Health Care Power of Electrical Tech/Project Manager document) Care Teams Senior Electrical Controls Engineer Relationship Specialty Start Date End Date Chad Phoenix DO [address] [place] [address] PCP - General Family Medicine 06/02/18 documented as of this encounter"
--- OUTSIDE RECORDS SUMMARY | 2024-07-17 15:42 | External Medical Summary | Summary of Care ---
Author Name Unknown Organization [facility] Address [address] [place] [facility] [place] [address] Phone [phone] Care Team Providers Care Wheelchair Van Driver Name Role Phone JorgitoChad hager Primary Care Provider [phone] Encounter Details Date Type Department Care Team (Late st Contact Info) Description 07/05/2024 Population Health External Data Unspecified Department Allergies Active Allergy Reactions Criticality Noted Date Comments Glipizide 02/18/2021 Dizzy, confusion Latex Rash 04/05/2024 Penicillins Rash 10/13/2001 documented as of this encounter (statuses as of 07/05/2024) Medications Medication Sig Dispensed Refills Start Date [...] ns:COPD, group B, by GOLD 2017 classification ([facility]) Inhale 1 Vial via [...] tablet by mouth daily as directed by [facility] 90 Tablet 1 04/25/2024 Active Rosuvastatin Calcium 20 MG Oral Tablet (Crestor) TAKE 1 TABLET BY MOUTH ONCE DAILY 90 Tablet 05/24/2024 Active Furosemide 40 MG Oral Tablet (Lasix)Indications:H eart failure, diastolic, due to HTN ([facility]) TAKE ONE TABLET BY MOUTH [...] as of this encounter (statuses as of 07/05/2024) Active Problems Problem Noted Date Diagnosed Date [...] mitral regurgitation by prior echocardi ogram 10/18/2017 bed bug exterminator 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 therapy 0 10/18/2017 [...] as of this encounter (statuses as of 07/05/2024) Resolved Problems Problem Noted Date Diagnosed Date Resolved Date Coronary artery disease invo lving [place] heart without angina pectoris 04/18/2019 10/29/2019 COPD, [...] 02/28/2012 08/29/2018 Overview: Per CKD protocol #1 bed bug exterminator current use of 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 therapy 03/05/2011 [...] as of this encounter (statuses as of 07/05/2024) Immunizations Name Administration Dates Next Due COVID-19 mRNA, LNP-s, No Pre serve, 2-Dose Series (Moderna) 12/09/2020,11/11/2020 COVID-19, mRNA, LNP-s, PF, B ooster, 100mcg/0.5mg (Moderna) 09/23/2021 H1N1 2009 Influenza, IM 11/18/2009 Pneumococcal Conjugate Vacc, 13 Valent (Prevnar) 12/17/2015 Pneumococcal Polysaccharide PPV23 (Pneumovax) 02/16/2010 Season Influenza, Quad, PF, Adjuvanted, 65+ Yrs, IM (FLUAD) 09/01/2020 Seasonal Influenza, High Dos e, Trivalent, PF, IM (Fluzone HD) 07/01/2017 Seasonal Influenza, PF, 6 M & above, IM , (FluLaval or Fluzone) 07/21/2018 Seasonal Influenza, Quadriva lent Hd (Fluzone Hd) 07/25/2023,06/30/2022,07/02/2021 Seasonal Influenza, Quadriva lent, No Preserve, IM 08/08/2015 Seasonal Influenza, Trivalen t, (IIV3), with Preserv, (Fluzone) 07/14/2016,07/17/2014,07/03/2013,08/09,07/07/2011,07/14/2010,07/15/2009 ,07/24/2008,07/12/2007,07/15/2006 Seasonal Influenza, Trivalen t, Adjuvanted, 65+ YRS, [...] 3:30 PM EDT Anticoagulation Pharmacy, [facility] [place] [address] [place] [address] Pharmacist1, [facility] 200 [facility] [place] [address] 09/18/2024 8:40 AM EST Office Visit Podiatry [facility] [address] [facility] [place] [address] Bryanna Guzman, DPM 132 [facility] [place] [address] 10/15/2024 3:00 PM EST Office Visit Cardiology, [facility] [place] [address] Yeni Laureano CRNP 132 [facility] [address] 01/02/2025 3:00 PM EDT Office Visit Family Practice [facility] 200 [facility] [place] [address] Chad hPoenix, DO 200 [facility] [place] [address] 04/30/2025 3:00 PM EDT Office Visit Pulmonary Medicine, [facility] 132 [facility] [place] [address] Krunal Sherwood MD [address] [facility] [place] [address] Health Maintenance Due Date Last Done Comments [...] Depression Screening 09/21/2024 09/21/2023 HbA1c 11/04/2024 05/04/2024, 11/2023, 04/05/2023, Additional history exists Albumin/Creatinine Ratio [...] Care Agent (per Health Care Power of Wharf Laborer document) DAVID JojoJULIUSSUSANNE Adult Child Second Alternate Health Care Agent (per Health Care Power of Wharf Laborer document) Care Teams Wheelchair Van Driver Relationship Specialty Start Date End Date Chad Phoenix DO [address] [place] [address] PCP - General Family Medicine 06/02/18 documented as of this encounter
--- OUTSIDE RECORDS SUMMARY | 2024-07-17 15:42 | External Medical Summary | Summary of Care ---
Author Name Unknown Organization [facility] Address [address] [facility] [place] [address] Phone [phone] Care Team Providers Care Trap Puller Name Role Phone JorgitoChad hager Primary Care Provider [phone] Encounter Details Date Type Department Care Team (Late st Contact Info) Description 07/09/2024 Population Health External Data Unspecified Department Allergies Active Allergy Reactions Criticality Noted Date Comments Glipizide 02/18/2021 Dizzy, confusion Latex Rash 04/05/2024 Penicillins Rash 10/13/2001 documented as of this encounter (statuses as of 07/09/2024) Medications Medication Sig Dispensed Refills Start Date [...] group B, by GOLD 2017 classification ([facility]) Inhale 1 Vial via nebulizer every 4 [...] tablet by mouth daily as directed by [facility] cou[facility] 90 Tablet 1 04/25/2024 Active Rosuvastatin Calcium 20 MG Oral Tablet (Crestor) TAKE 1 TABLET BY MOUTH ONCE DAILY 90 Tablet 05/24/2024 Active Furosemide 40 MG Oral Tablet (Lasix)Indications:H eart failure, diastolic, due to HTN ([facility]) TAKE ONE TABLET BY MOUTH IN THE [...] as of this encounter (statuses as of 07/09/2024) Active Problems Problem Noted Date Diagnosed Date [...] mitral regurgitation by prior echocardi ogram 10/18/2017 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 0 10/18/2017 [...] as of this encounter (statuses as of 07/09/2024) Resolved Problems Problem Noted Date Diagnosed Date Resolved Date Coronary artery disease invo lving [place] heart without angina pectoris 04/18/2019 10/29/2019 COPD, [...] 02/28/2012 08/29/2018 Overview: Per CKD protocol #1 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 03/05/2011 [...] as of this encounter (statuses as of 07/09/2024) Immunizations Name Administration Dates Next Due COVID-19 [...] 3:30 PM EDT Anticoagulation Pharmacy, [facility] [place] [address] [place] [address] Pharmacist1, [facility] 200 [facility] [place] [address] 09/18/2024 8:40 AM EST Office Visit Podiatry [facility] 132 [facility] [place] [address] Bryanna Guzman, DPM 132 [facility] [place] [address] 10/15/2024 3:00 PM EST Office Visit Cardiology, [facility] 132 [facility] [place] [address] Yeni Laureano CRNP 132 [facility] [address] 01/02/2025 3:00 PM EDT Office Visit Family Practice [facility] 200 [facility] [place] [address] Chad Phoenix, DO 200 [facility] [place] [address] 04/30/2025 3:00 PM EDT Office Visit Pulmonary Medicine, [facility] 132 [facility] [place] [address] Krunal Sherwood MD [address] [facility] [address] Health Maintenance Due Date Last Done Comments [...] Care Agent (per Health Care Power of Culture Manager document) DAVID JojoJULIUSSUSANNE Adult Child Second Alternate Health Care Agent (per Health Care Power of Culture Manager document) Care Teams Trap Puller Relationship Specialty Start Date End Date Chad Phoenix DO [address] [place] [address] PCP - General Family Medicine 06/02/18 documented as of this encounter
--- OUTSIDE RECORDS SUMMARY | 2024-07-17 15:42 | External Medical Summary | Summary of Care ---
Author Name Unknown Organization [facility] Address [address] [facility] [place] [address] Phone [phone] Care Team Providers Care Control Analyst Name Role Phone JorgitoChad hager Primary Care Provider [phone] Encounter Details Date Type Department Care Team (Late st Contact Info) Description 07/11/2024 Population Health External Data Unspecified Department Allergies Active Allergy Reactions Criticality Noted Date Comments Glipizide 02/18/2021 Dizzy, confusion Latex Rash 04/05/2024 Penicillins Rash 10/13/2001 documented as of this encounter (statuses as of 07/11/2024) Medications Medication Sig Dispensed Refills Start Date [...] by GOLD 2017 classification ([facility]) Inhale 1 Vial via nebulizer every 4 [...] tablet by mouth daily as directed by [facility] coumad[facility] 90 Tablet 1 04/25/2024 Active Rosuvastatin Calcium 20 MG Oral Tablet (Crestor) TAKE 1 TABLET BY MOUTH ONCE DAILY 90 Tablet 05/24/2024 Active Furosemide 40 MG Oral Tablet (Lasix)Indications:H eart failure, diastolic, due to HTN ([facility]) TAKE ONE TABLET BY MOUTH IN THE [...] as of this encounter (statuses as of 07/11/2024) Active Problems Problem Noted Date Diagnosed Date [...] as of this encounter (statuses as of 07/11/2024) Resolved Problems Problem Noted Date Diagnosed Date Resolved Date Coronary artery disease invo 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 pectoris 04/18/2019 10/29/2019 COPD, [...] 02/28/2012 08/29/2018 Overview: Per CKD protocol #1 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 [...] as of this encounter (statuses as of 07/11/2024) Immunizations Name Administration Dates Next Due COVID-19 [...] 3:30 PM EDT Anticoagulation Pharmacy, [facility] [place] [address] [place] [address] Pharmacist1, [facility] 200 [facility] [place] [address] 09/18/2024 8:40 AM EST Office Visit Podiatry [facility] 132 [facility] [place] [address] Bryanna Guzman, DPM 132 [facility] [place] [address] 10/15/2024 3:00 PM EST Office Visit Cardiology, [facility] 132 [facility] [place] [address] Yeni Laureano CRNP 132 [facility] [address] 01/02/2025 3:00 PM EDT Office Visit Family Practice [facility] 200 [facility] [place] [address] Chad Phoenix, DO 200 [facility] [place] [address] 04/30/2025 3:00 PM EDT Office Visit Pulmonary Medicine, [facility] 132 [facility], [place] [address] Krunal Sherwood MD [address] [facility] [place] [address] Health Maintenance Due Date Last Done Comments [...] Care Agent (per Health Care Power of Timber Skidder document) DAVID JojoKHADRA Adult Child Second Alternate Health Care Agent (per Health Care Power of Timber Skidder document) Care Teams Control Analyst Relationship Specialty Start Date End Date Chad Phoenix DO [address] [place] [address] PCP - General Family Medicine 06/02/18 documented as of this encounter
--- OUTSIDE RECORDS SUMMARY | 2024-07-17 15:42 | External Medical Summary | Summary of Care ---
Author Name Unknown Organization [facility] Address [address] [facility] [place] [address] Phone [phone] Care Team Providers Care Teacher Tutor Name Role Phone JorgitoChad hager Primary Care Provider [phone] Encounter Details Date Type Department Care Team (Late st Contact Info) Description 07/06/2024 Population Health External Data Unspecified Department Allergies Active Allergy Reactions Criticality Noted Date Comments Glipizide 02/18/2021 Dizzy, confusion Latex Rash 04/05/2024 Penicillins Rash 10/13/2001 documented as of this encounter (statuses as of 07/06/2024) Medications Medication Sig Dispensed Refills Start Date [...] tablet by mouth daily as directed by [facility] 90 Tablet 1 04/25/2024 Active Rosuvastatin Calcium 20 MG Oral Tablet (Crestor) TAKE 1 TABLET BY MOUTH ONCE DAILY 90 Tablet 05/24/2024 Active Furosemide 40 MG Oral Tablet (Lasix)Indications:H eart failure, diastolic, due to HTN ([facility]) TAKE ONE TABLET BY MOUTH IN THE [...] as of this encounter (statuses as of 07/06/2024) Active Problems Problem Noted Date Diagnosed Date [...] mitral regurgitation by prior echocardi ogram 10/18/2017 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 coordinator 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 0 10/18/2017 [...] as of this encounter (statuses as of 07/06/2024) Resolved Problems Problem Noted Date Diagnosed Date Resolved Date Coronary artery disease invo 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 pectoris 04/18/2019 10/29/2019 COPD, [...] 02/28/2012 08/29/2018 Overview: Per CKD protocol #1 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 coordinator current use of 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 therapy 03/05/2011 [...] as of this encounter (statuses as of 07/06/2024) Immunizations Name Administration Dates Next Due COVID-19 [...] 3:30 PM EDT Anticoagulation Pharmacy, [facility] [place] [address] [place] [address] Pharmacist1, [facility] 200 [facility] [place] [address] 09/18/2024 8:40 AM EST Office Visit Podiatry [facility] 132 [facility] [place] [address] Bryanna Guzman, DPM 132 [facility] [place] [address] 10/15/2024 3:00 PM EST Office Visit Cardiology, [facility] 132 [facility] [place] [address] Yeni Laureano CRNP 132 [facility] [address] 01/02/2025 3:00 PM EDT [facility] Visit [facility] 200 [facility] [place] [address] Chad Phoenix, DO 200 [facility] [place] [address] 04/30/2025 3:00 PM EDT Office Visit Pulmonary Medicine, [facility] 132 [facility] [place] [address] Krunal Sherwood MD [address] [facility] [address] Health Maintenance Due Date Last Done Comments [...] Care Agent (per Health Care Power of Wind Tunnel Technician document) DAVID oJjoJULIUSSUSANNE Adult Child Second Alternate Health Care Agent (per Health Care Power of Wind Tunnel Technician document) Care Teams Teacher Tutor Relationship Specialty Start Date End Date Chad Phoenix DO [address] [place] [address] PCP - General Family Medicine 06/02/18 documented as of this encounter
--- OUTSIDE RECORDS SUMMARY | 2024-07-17 15:42 | External Medical Summary | Summary of Care ---
Author Name Unknown Organization [facility] Address [address] [facility] [place] [address] Phone [phone] Care Team Providers Care Information Developer Name Role Phone JorgitoChad hager Primary Care Provider [phone] Encounter Details Date Type Department Care Team (Late st Contact Info) Description 07/13/2024 Population Health External Data Unspecified Department Allergies Active Allergy Reactions Criticality Noted Date Comments Glipizide 02/18/2021 Dizzy, confusion Latex Rash 04/05/2024 Penicillins Rash 10/13/2001 documented as of this encounter (statuses as of 07/13/2024) Medications Medication Sig Dispensed Refills Start Date [...] tablet by mouth daily as directed by [facility] coumadin clinic 90 Tablet 1 04/25/2024 Active Rosuvastatin Calcium 20 MG Oral Tablet (Crestor) TAKE 1 TABLET BY MOUTH ONCE DAILY 90 Tablet 05/24/2024 Active Furosemide 40 MG Oral Tablet (Lasix)Indications:H eart failure, diastolic, due to HTN ([facility]) TAKE ONE TABLET BY MOUTH IN THE [...] as of this encounter (statuses as of 07/13/2024) Active Problems Problem Noted Date Diagnosed Date [...] mitral regurgitation by prior echocardi ogram 10/18/2017 long-term 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 therapy 0 10/18/2017 [...] as of this encounter (statuses as of 07/13/2024) Resolved Problems Problem Noted Date Diagnosed Date Resolved Date Coronary artery disease invo 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 200 [facility] [place] [address] 09/18/2024 8:40 AM EST Office Visit Podiatry [facility] 132 [facility] [place] [address] Bryanna Guzman, DPM [address] [facility] [place] [address] 10/15/2024 3:00 PM EST Office Visit Cardiology, [facility] 132 [facility] [place] [address] Yeni Laureano CRNP [address] [facility] [address] 01/02/2025 3:00 PM EDT Office Visit Family Practice [facility] 200 [facility] [place] [address] Chad Phoenix, DO 200 [facility] [place] [address] 04/30/2025 3:00 PM EDT Office Visit Pulmonary Medicine, [facility] [address] [place], [place] [address] Krunal Sherwood MD [address] [facility] [place] [address] Health Maintenance Due Date Last Done Comments [...] Care Agent (per Health Care Power of Compliance Coordinator document) DAVID JojoKHADRA Adult Child Second Alternate Health Care Agent (per Health Care Power of Compliance Coordinator document) Care Teams Information Developer Relationship Specialty Start Date End Date Chad Phoenix DO [address] [place] [address] PCP - General Family Medicine 06/02/18 documented as of this encounter
--- OUTSIDE RECORDS SUMMARY | 2024-07-17 15:42 | External Medical Summary | Summary of Care ---
Author Name Unknown Organization [facility] Address [address] [facility] [place] [address] Phone [phone] Care Team Providers Care Research Professor Name Role Phone JorgitoChad hager Primary Care Provider [phone] Encounter Details Date Type Department Care Team (Late st Contact Info) Description 07/04/2024 Population Health External Data Unspecified Department Allergies Active Allergy Reactions Criticality Noted Date Comments Glipizide 02/18/2021 Dizzy, confusion Latex Rash 04/05/2024 Penicillins Rash 10/13/2001 documented as of this encounter (statuses as of 07/04/2024) Medications Medication Sig Dispensed Refills Start Date [...] B, by GOLD 2017 classification ([facility]) Inhale 1 Vial via nebulizer [...] tablet by mouth daily as directed by [facility] coumadin [facility] 90 Tablet 1 04/25/2024 Active Rosuvastatin Calcium 20 MG Oral Tablet (Crestor) TAKE 1 TABLET BY MOUTH ONCE DAILY 90 Tablet 05/24/2024 Active Furosemide 40 MG Oral Tablet (Lasix)Indications:H eart failure, diastolic, due to HTN ([facility]) TAKE ONE TABLET BY MOUTH [...] as of this encounter (statuses as of 07/04/2024) Active Problems Problem Noted Date Diagnosed Date [...] regurgitation by prior echocardi ogram 10/18/2017 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 0 10/18/2017 [...] as of this encounter (statuses as of 07/04/2024) Resolved Problems Problem Noted Date Diagnosed Date Resolved Date Coronary artery disease invo lving [place] heart without angina pectoris 04/18/2019 10/29/2019 COPD, [...] 08/29/2018 Overview: Per CKD protocol #1 terminal superintendent current use of 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 therapy 03/05/2011 [...] as of this encounter (statuses as of 07/04/2024) Immunizations Name Administration Dates Next Due COVID-19 [...] 3:30 PM EDT Anticoagulation Pharmacy, [facility] [place] [address] [place] [address] Pharmacist1, [facility] 200 [facility] [place] [address] 09/18/2024 8:40 AM EST Office Visit Podiatry [facility] 132 [facility] [place] [address] Bryanna Guzman, DPM 132 [facility] [place] [address] 10/15/2024 3:00 PM EST Office Visit Cardiology, [facility] 132 [facility] [place] [address] Yeni Laureano CRNP 132 [facility] [place] [address] 01/02/2025 3:00 PM EDT Office Visit Family Practice [facility] 200 [facility] [place] [address] Chad Phoenix, DO 200 [facility] [place] [address] 04/30/2025 3:00 PM EDT Office Visit Pulmonary Medicine, [facility] 132 [facility] [place] [address] Krunal Sherwood MD [address] [facility] [address] Health Maintenance Due Date Last Done Comments [...] Care Agent (per Health Care Power of Recovery Coordinator document) DAVID JojoJULIUSSUSANNE Adult Child Second Alternate Health Care Agent (per Health Care Power of Recovery Coordinator document) Care Teams Research Professor Relationship Specialty Start Date End Date Chad Phoenix DO [address] [place] [address] PCP - General Family Medicine 06/02/18 documented as of this encounter
--- OUTSIDE RECORDS SUMMARY | 2024-07-17 15:42 | External Medical Summary | Summary of Care ---
Author Name Unknown Organization [facility] Address [address] [place] [address] Phone [phone] Care Team Providers Care Interface Analyst Name Role Phone JorgitoChad hager Primary Care Provider [phone] Encounter Details Date Type Department Care Team (Late st Contact Info) Description 07/10/2024 Population Health External Data Unspecified Department Allergies Active Allergy Reactions Criticality Noted Date Comments Glipizide 02/18/2021 Dizzy, confusion Latex Rash 04/05/2024 Penicillins Rash 10/13/2001 documented as of this encounter (statuses as of 07/10/2024) Medications Medication Sig Dispensed Refills Start Date [...] B, by GOLD 2017 classification ([facility]) Inhale 1 Vial via nebulizer [...] tablet by mouth daily as directed by [facility] coumadin clinic 90 Tablet 1 04/25/2024 Active Rosuvastatin Calcium 20 MG Oral Tablet (Crestor) TAKE 1 TABLET BY MOUTH ONCE DAILY 90 Tablet 05/24/2024 Active Furosemide 40 MG Oral Tablet (Lasix)Indications:H eart failure, diastolic, due to HTN ([facility]) TAKE ONE TABLET BY MOUTH [...] as of this encounter (statuses as of 07/10/2024) Active Problems Problem Noted Date Diagnosed Date [...] mitral regurgitation by prior echocardi ogram 10/18/2017 correction 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 therapy 0 10/18/2017 [...] as of this encounter (statuses as of 07/10/2024) Resolved Problems Problem Noted Date Diagnosed Date Resolved Date Coronary artery disease invo lving [place] heart without angina pectoris 04/18/2019 10/29/2019 COPD, [...] Overview: Per CKD protocol #1 long term current use of 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 therapy 03/05/2011 [...] as of this encounter (statuses as of 07/10/2024) Immunizations Name Administration Dates Next Due COVID-19 [...] 3:30 PM EDT Anticoagulation Pharmacy, [facility] [place] [address] [place] [address] Pharmacist1, [facility] 200 [facility] [place] [address] 09/18/2024 8:40 AM EST Office Visit Podiatry [facility] 132 [facility] [place] [address] Bryanna Guzman, DPM 132 [facility] [place] [address] 10/15/2024 3:00 PM EST Office Visit Cardiology, [facility] [place] [address] Yeni Laureano CRNP 132 [facility] [address] 01/02/2025 3:00 PM EDT Office Visit Family Practice [facility] [address] [facility] [place] [address] Chad Phoenix, DO [address] [facility] [place] [address] 04/30/2025 3:00 PM EDT Office Visit Pulmonary Medicine, [facility] 132 [facility] [place] [address] Krunal Sherwood MD [address] [facility] [address] Health Maintenance Due Date Last Done Comments [...] Care Agent (per Health Care Power of Defensive Secondary Coach document) DAVID JojoJULIUSSUSANNE Adult Child Second Alternate Health Care Agent (per Health Care Power of Defensive Secondary Coach document) Care Teams Interface Analyst Relationship Specialty Start Date End Date Chad Phoenix DO [address] [place] [address] PCP - General Family Medicine 06/02/18 documented as of this encounter
--- OUTSIDE RECORDS SUMMARY | 2024-07-17 15:42 | External Medical Summary | Summary of Care ---
Author Name Unknown Organization [facility] Address [address] [facility] [place] [address] Phone [phone] Care Team Providers Care Physician Practice Coordinator Name Role Phone Chad Phoenix Primary Care Provider [phone] Reason for Visit * Reason Onset Date Comments Test Results 07/03/2024 6MW Encounter Details Date Type Department Care Team (Late st Contact Info) Description 07/03/2024 Telephone Pulmonary Medicine, [facility] 132 [facility] [place] [address] Krunal Shrewood MD [address] [facility] [place] [id number] Test Results (6MW) Allergies Active Allergy Reactions Criticality Noted Date Comments Glipizide 02/18/2021 Dizzy, confusion Latex Rash 04/05/2024 Penicillins Rash 10/13/2001 documented as of this encounter (statuses as of 07/03/2024) Medications Medication Sig Dispensed Refills Start Date [...] group B, by GOLD 2017 classification ([facility]) Inhale 1 Vial via nebulizer every 4 [...] tablet by mouth daily as directed by [facility] coumadin clinic 90 Tablet 1 04/25/2024 Active Rosuvastatin Calcium 20 MG Oral Tablet (Crestor) TAKE 1 TABLET BY MOUTH ONCE DAILY 90 Tablet 05/24/2024 Active Furosemide 40 MG Oral Tablet (Lasix)Indications:H eart failure, diastolic, due to HTN ([facility]) TAKE ONE TABLET BY MOUTH IN THE [...] as of this encounter (statuses as of 07/03/2024) Active Problems Problem Noted Date Diagnosed Date Acute respiratory failure with hypoxia 4 Nocturnal hypoxemia 12/08/2022 Permanent atrial fibrillation 11/24/2021 [...] mitral regurgitation by prior echocardi ogram 10/18/2017 detention 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 therapy 0 10/18/2017 [...] as of this encounter (statuses as of 07/03/2024) Resolved Problems Problem Noted Date Diagnosed Date Resolved Date Coronary artery disease invo lving [place] heart without angina pectoris 04/18/2019 10/29/2019 COPD, [...] CKD protocol #1 detention current use of 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 therapy 03/05/2011 [...] as of this encounter (statuses as of 07/03/2024) Immunizations Name Administration Dates Next Due COVID-19 [...] encounter Miscellaneous Notes * Telephone Encounter - Candelaria Fierro LPN - 07/03/2024 12:53 PM EDT ----- Message from Krunal Sherwood MD sent at 07/03/2024 12:25 PM EDT ----- 6 minute walk test 06/13/2024 was negative for hypoxia during ambulation on room air. Chart note documented in this encounter Plan of Treatment Upcoming Encounters Date Type Department Care Team (Late st Contact Info) Description 07/17/2024 3:30 PM EDT Anticoagulation Pharmacy, [facility] [address] [place] [address] Pharmacist1, [facility] [address] [facility] [place] [address] 09/18/2024 8:40 AM EST Office Visit Podiatry [facility] [address] [place] [address] Bryanna Guzman DPM [address] [place] [address] 10/15/2024 3:00 PM EST Office Visit Cardiology, [facility] [address] [place] [address] Yeni Laureano CRNP [address] [place] [address] 01/02/2025 3:00 PM EDT Office Visit Family Practice [facility] [address] [place] [address] Chad Phoenix, DO [address] [facility] [place] [address] 04/30/2025 3:00 PM EDT Office Visit Pulmonary Medicine, [facility] [address] [place] [address] Krunal Sherwood MD [address] [place] [address] Health Maintenance Due Date Last Done Comments [...] Care Agent (per Health Care Power of Dermatology Sales Representative document) DAVID Pearl Adult Child Second Alternate Health Care Agent (per Health Care Power of Dermatology Sales Representative document) Care Teams Physician Practice Coordinator Relationship Specialty Start Date End Date Chad Phoenix DO [address] [place] [address] PCP - General Family Medicine 06/02/18 documented as of this encounter
--- OUTSIDE RECORDS SUMMARY | 2024-07-17 15:43 | External Medical Summary | Summary of Care ---
Author Name Unknown Organization [facility] Address [address] [facility] [place] [address] Phone [phone] Care Team Providers Care Manager Gyn Name Role Phone JorgitoChad hager Primary Care Provider [phone] Encounter Details Date Type Department Care Team (Late st Contact Info) Description 06/25/2024 Population Health External Data Unspecified Department Allergies Active Allergy Reactions Criticality Noted Date Comments Glipizide 02/18/2021 Dizzy, confusion Latex Rash 04/05/2024 Penicillins Rash 10/13/2001 documented as of this encounter (statuses as of 06/25/2024) Medications Medication Sig Dispensed Refills Start Date [...] tablet by mouth daily as directed by [facility] coumadin [facility] 90 Tablet 1 04/25/2024 Active [...] as of this encounter (statuses as of 06/25/2024) Active Problems Problem Noted Date Diagnosed Date [...] mitral regurgitation by prior echocardi ogram 10/18/2017 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 0 [...] as of this encounter (statuses as of 06/25/2024) Resolved Problems Problem Noted Date Diagnosed Date Resolved Date 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 pectoris 04/18/2019 10/29/2019 COPD, [...] 02/28/2012 08/29/2018 Overview: Per CKD protocol #1 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 [...] as of this encounter (statuses as of 06/25/2024) Immunizations Name Administration Dates Next Due COVID-19 [...] 3:30 PM EDT Anticoagulation Pharmacy, [facility] [place] [address] [place] [address] Pharmacist1, [facility] 200 [facility] [place] [address] 09/18/2024 8:40 AM EST Office Visit Podiatry [facility] 132 [facility] [place] [address] Bryanna Guzman, DPM 132 [facility] [place] [address] 10/15/2024 3:00 PM EST Office Visit Cardiology, [facility] [address] [facility] [place] [address] Yeni Laureano CRNP 132 [facility] [address] 01/02/2025 3:00 PM EDT Office Visit Family Practice [facility] 200 [facility] [place] [address] Chad Phoenix, DO 200 [facility] [place] [address] 04/30/2025 3:00 PM EDT Office Visit Pulmonary Medicine, [facility] 132 [facility] [place] [address] Krunal Sher[place] MD [address] [facility] [address] Health Maintenance Due Date Last Done Comments [...] Care Agent (per Health Care Power of Injection Maintenance Technician document) DAVID JojoJULIUSSUSANNE Adult Child Second Alternate Health Care Agent (per Health Care Power of Injection Maintenance Technician document) Care Teams Manager Gyn Relationship Specialty Start Date End Date Chad Phoenix DO [address] [place] [address] PCP - General Family Medicine 06/02/18 documented as of this encounter
--- OUTSIDE RECORDS SUMMARY | 2024-07-17 15:43 | External Medical Summary | Summary of Care ---
Author Name Unknown Organization [facility] Address [address] [facility] [place] [address] Phone [phone] Care Team Providers Care Laborer Shaft Sinking Name Role Phone JorgitoChad hager Primary Care Provider [phone] Encounter Details Date Type Department Care Team (Late st Contact Info) Description 06/26/2024 Population Health External Data Unspecified Department Allergies Active Allergy Reactions Criticality Noted Date Comments Glipizide 02/18/2021 Dizzy, confusion Latex Rash 04/05/2024 Penicillins Rash 10/13/2001 documented as of this encounter (statuses as of 06/26/2024) Medications Medication Sig Dispensed Refills Start Date [...] group B, by GOLD 2017 classification ([facility]) Inhale 1 Vial via [...] as directed by [facility] coumadin clinic 90 Tablet 1 04/25/2024 Active Rosuvastatin Calcium 20 MG Oral Tablet (Crestor) TAKE 1 TABLET BY MOUTH ONCE DAILY 90 Tablet 05/24/2024 Active Furosemide 40 MG Oral Tablet (Lasix)Indications:H eart failure, diastolic, due to HTN ([facility]) TAKE ONE TABLET BY [...] as of this encounter (statuses as of 06/26/2024) Active Problems Problem Noted Date Diagnosed Date [...] as of this encounter (statuses as of 06/26/2024) Resolved Problems Problem Noted Date Diagnosed Date Resolved Date Coronary artery disease invo lving [place] heart without angina pectoris 04/18/2019 10/29/2019 COPD, [...] as of this encounter (statuses as of 06/26/2024) Immunizations Name Administration Dates Next Due COVID-19 [...] 3:30 PM EDT Anticoagulation Pharmacy, [facility] [place] [address] [place] [address] Pharmacist1, [facility] 200 [facility] [place] [address] 09/18/2024 8:40 AM EST Office Visit Podiatry [facility] 132 [facility] [place] [address] Bryanna Guzman, DPM [facility] [place] [address] 10/15/2024 3:00 PM EST Office Visit Cardiology, [facility] 132 [facility] [place] [address] Yeni Laureano CRNP 132 [facility] [address] 01/02/2025 3:00 PM EDT Office Visit Family Practice [facility] 200 [facility] [place] [address] Chad Phoenix, DO 200 [facility] [place] [address] 04/30/2025 3:00 PM EDT Office Visit Pulmonary Medicine, [facility] 132 [facility] [place] [address] Krunal Sher[place] MD [address] [facility] [address] Health Maintenance Due Date Last Done Comments [...] Care Agent (per Health Care Power of Novelty Printing Machine Operator document) DAVID JojoJULIUSSUSANNE Adult Child Second Alternate Health Care Agent (per Health Care Power of Novelty Printing Machine Operator document) Care Teams Laborer Shaft Sinking Relationship Specialty Start Date End Date Chad Phoenix DO [address] [place] [address] PCP - General Family Medicine 06/02/18 documented as of this encounter
--- OUTSIDE RECORDS SUMMARY | 2024-07-17 15:43 | External Medical Summary | Summary of Care ---
Author Name Unknown Organization [facility] Address [address] [facility] [place] [address] Phone [phone] Care Team Providers Care Third Shift Lieutenant Name Role Phone JorgitoChad hager Primary Care Provider [phone] Encounter Details Date Type Department Care Team (Late st Contact Info) Description 06/27/2024 Population Health External Data Unspecified Department Allergies Active Allergy Reactions Criticality Noted Date Comments Glipizide 02/18/2021 Dizzy, confusion Latex Rash 04/05/2024 Penicillins Rash 10/13/2001 documented as of this encounter (statuses as of 06/27/2024) Medications Medication Sig Dispensed Refills Start Date [...] ns:COPD, group B, by GOLD 2017 classification ([place] [...] tablet by mouth daily as directed by [facility] coumadin clinic 90 Tablet 1 04/25/2024 Active Rosuvastatin Calcium 20 MG Oral Tablet (Crestor) TAKE 1 TABLET BY MOUTH ONCE DAILY 90 Tablet 05/24/2024 Active Furosemide 40 MG Oral Tablet (Lasix)Indications:H eart failure, diastolic, due to HTN ([facility]) TAKE ONE TABLET BY MOUTH [...] as of this encounter (statuses as of 06/27/2024) Active Problems Problem Noted Date Diagnosed Date [...] mitral regurgitation by prior echocardi ogram 10/18/2017 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 0 [...] as of this encounter (statuses as of 06/27/2024) Resolved Problems Problem Noted Date Diagnosed Date Resolved Date Coronary artery disease invo 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 [place] [address] Bryanna Guzman, DPM 132 [facility] [place] [address] 10/15/2024 3:00 PM EST Office Visit Cardiology, [facility] 132 [facility] [place] [address] Yeni Laureano CRNP 132 [facility] [address] 01/02/2025 3:00 PM EDT Office Visit Family Practice [facility] 200 [facility] [place] [address] Chad Phoenix, DO 200 [facility] [place] [address] 04/30/2025 3:00 PM EDT Office Visit Pulmonary Medicine, [facility] 132 [facility] [place] [address] Krunal Sher[place] MD [address] [address] Health Maintenance Due Date Last Done Comments [...] Care Agent (per Health Care Power of Production Expediter document) DAVID JojoJULIUSSUSANNE Adult Child Second Alternate Health Care Agent (per Health Care Power of Production Expediter document) Care Teams Third Shift Lieutenant Relationship Specialty Start Date End Date Chad Phoenix DO [address] [place] [address] PCP - General Family Medicine 06/02/18 documented as of this encounter
--- OUTSIDE RECORDS SUMMARY | 2024-07-17 15:43 | External Medical Summary | Summary of Care ---
Author Name Unknown Organization [facility] Address [address] [facility] [place] [address] Phone [phone] Care Team Providers Care Energy Project Manager Name Role Phone JorgitoChad hager Primary Care Provider [phone] Encounter Details Date Type Department Care Team (Late st Contact Info) Description 07/03/2024 Population Health External Data Unspecified Department Allergies [...] tablet by mouth daily as directed by [facility] coumadin clinic 90 Tablet 1 04/25/2024 Active Rosuvastatin Calcium 20 MG Oral Tablet (Crestor) TAKE 1 TABLET BY MOUTH ONCE DAILY 90 Tablet 05/24/2024 Active Furosemide 40 MG Oral Tablet (Lasix)Indications:H eart failure, diastolic, due to HTN ([facility]) TAKE ONE TABLET BY MOUTH IN [...] mitral regurgitation by prior echocardi ogram 10/18/2017 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 0 10/18/2017 [...] Resolved Date Coronary artery disease invo lving [place] heart without angina pectoris 04/18/2019 10/29/2019 COPD, [...] 02/28/2012 08/29/2018 Overview: Per CKD protocol #1 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 03/05/2011 [...] 3:30 PM EDT Anticoagulation Pharmacy, [facility] [place] [address] [place] [address] Pharmacist1, [facility] 200 [facility] [place] [address] 09/18/2024 8:40 AM EST Office Visit Podiatry [facility] 132 [facility] [place] [address] Bryanna Guzman, DPM 132 [facility] [place] [address] 10/15/2024 3:00 PM EST Office Visit Cardiology, [facility] 132 [facility] [place] [address] Yeni Laureano CRNP 132 [facility] [address] 01/02/2025 3:00 PM EDT Office Visit Family Practice [facility] [address] [facility] [place] [address] Chad Phoenix, DO [address] [facility] [place] [address] 04/30/2025 3:00 PM EDT Office Visit Pulmonary Medicine, [facility] 132 [facility] [place] [address] Krunal Sher[place] MD [address] [facility] [address] Health Maintenance Due Date Last Done Comments [...] Care Agent (per Health Care Power of Ecommerce Manager document) DAVID JojoJULIUSSUSANNE Adult Child Second Alternate Health Care Agent (per Health Care Power of Ecommerce Manager document) Care Teams Energy Project Manager Relationship Specialty Start Date End Date Chad Phoenix DO [address] [place] [address] PCP - General Family Medicine 06/02/18 documented as of this encounter
--- OUTSIDE RECORDS SUMMARY | 2024-07-17 15:43 | External Medical Summary | Summary of Care ---
Author Name Unknown Organization [facility] Address [address] [place] [address] Phone [phone] Care Team Providers Care Flavoring Machine Operator Name Role Phone JorgitoChad hager Primary Care Provider [phone] Encounter Details Date Type Department Care Team (Late st Contact Info) Description 06/29/2024 Population Health External Data Unspecified Department Allergies Active Allergy Reactions Criticality Noted Date Comments Glipizide 02/18/2021 Dizzy, confusion Latex Rash 04/05/2024 Penicillins Rash 10/13/2001 documented as of this encounter (statuses as of 06/29/2024) Medications Medication Sig Dispensed Refills Start Date [...] tablet by mouth daily as directed by [facility] coumadin clinic 90 Tablet 1 04/25/2024 [...] as of this encounter (statuses as of 06/29/2024) Active Problems Problem Noted Date Diagnosed Date [...] as of this encounter (statuses as of 06/29/2024) Resolved Problems Problem Noted Date Diagnosed Date Resolved Date Coronary artery disease invo lving [place] heart without angina pectoris 04/18/2019 10/29/2019 COPD, [...] 08/29/2018 Overview: Per CKD protocol #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 03/05/2011 [...] as of this encounter (statuses as of 06/29/2024) Immunizations Name Administration Dates Next Due COVID-19 [...] 3:30 PM EDT Anticoagulation Pharmacy, [facility] [place] [address] [place] [address] Pharmacist1, [facility] 200 [facility] [place] [address] 09/18/2024 8:40 AM EST Office Visit Podiatry [facility] 132 [facility] [place] [address] Bryanna Guzman, DPM 132 [facility] [place] [address] 10/15/2024 3:00 PM EST Office Visit Cardiology, [facility] 132 [facility] [place] [address] Yeni Laureano CRNP 132 [facility] [address] 01/02/2025 3:00 PM EDT Office Visit Family Practice [facility] 200 [facility] [place] [address] Chad Phoenix, DO 200 [facility] [place] [address] 04/30/2025 3:00 PM EDT Office Visit Pulmonary Medicine, [facility] 132 [facility] [place] [address] Krunal Sher[place] MD [address] [facility] [address] Health Maintenance Due Date Last Done Comments [...] Care Agent (per Health Care Power of Hearing Aid Mechanic document) DAVID JojoJULIUSSUSANNE Adult Child Second Alternate Health Care Agent (per Health Care Power of Hearing Aid Mechanic document) Care Teams Flavoring Machine Operator Relationship Specialty Start Date End Date Chad Phoenix DO [address] [place] [address] PCP - General Family Medicine 06/02/18 documented as of this encounter
--- OUTSIDE RECORDS SUMMARY | 2024-07-17 15:43 | External Medical Summary | Summary of Care ---
Author Name Unknown Organization [facility] Address [address] [place] [place] [address] Phone [phone] Care Team Providers Care Supply Teacher Name Role Phone JorgitoChad hager Primary Care Provider [phone] Encounter Details Date Type Department Care Team (Late st Contact Info) Description 06/22/2024 Population Health External Data Unspecified Department Allergies Active Allergy Reactions Criticality Noted Date Comments Glipizide 02/18/2021 Dizzy, confusion Latex Rash 04/05/2024 Penicillins Rash 10/13/2001 documented as of this encounter (statuses as of 06/22/2024) Medications Medication Sig Dispensed Refills Start Date [...] ns:COPD, group B, by GOLD 2017 classification ([facility]) Inhale 1 Vial via nebulizer [...] tablet by mouth daily as directed by [facility] coumadin clinic 90 Tablet 1 04/25/2024 Active Rosuvastatin Calcium 20 MG Oral Tablet (Crestor) TAKE 1 TABLET BY MOUTH ONCE DAILY 90 Tablet 05/24/2024 Active Furosemide 40 MG Oral Tablet (Lasix)Indications:H eart failure, diastolic, due to HTN ([facility]) TAKE ONE TABLET BY MOUTH [...] as of this encounter (statuses as of 06/22/2024) Active Problems Problem Noted Date Diagnosed Date [...] as of this encounter (statuses as of 06/22/2024) Resolved Problems Problem Noted Date Diagnosed Date Resolved Date Coronary artery disease invo lving [place] heart without angina pectoris 04/18/2019 10/29/2019 COPD, [...] #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 03/05/2011 [...] as of this encounter (statuses as of 06/22/2024) Immunizations Name Administration Dates Next Due COVID-19 [...] 3:30 PM EDT Anticoagulation Pharmacy, [facility] [place] [address] [place] [address] Pharmacist1, [facility] 200 [facility] [place] [address] 09/18/2024 8:40 AM EST Office Visit Podiatry [facility] 132 [facility] [place] [address] Bryanna Guzman, DPM 132 [facility] [place] [address] 10/15/2024 3:00 PM EST Office Visit Cardiology, [facility] [place] [address] Yeni [facility]ureano CRNP 132 [facility] [address] 01/02/2025 3:00 PM EDT Office Visit Family Practice [facility] 200 [facility] [place] [address] Chad Phoenix, DO 200 [facility] [place] [address] 04/30/2025 3:00 PM EDT Office Visit Pulmonary Medicine, [facility] 132 [facility] [place] [address] Krunal Sherwood MD [address] [facility] [address] Health Maintenance Due Date Last Done Comments [...] Care Agent (per Health Care Power of Guide Escort document) DAVID JojoJULIUSSUSANNE Adult Child Second Alternate Health Care Agent (per Health Care Power of Guide Escort document) Care Teams Supply Teacher Relationship Specialty Start Date End Date Chad Phoenix DO [address] [place] [address] PCP - General Family Medicine 06/02/18 documented as of this encounter
--- OUTSIDE RECORDS SUMMARY | 2024-07-17 15:43 | External Medical Summary | Summary of Care ---
Author Name Unknown Organization [facility] Address [address] [place] [address] Phone [phone] Care Team Providers Care Boiling Off Winder Name Role Phone JorgitoChad hager Primary Care Provider [phone] Encounter Details Date Type Department Care Team (Late st Contact Info) Description 06/21/2024 Population Health External Data Unspecified Department Allergies Active Allergy Reactions Criticality Noted Date Comments Glipizide 02/18/2021 Dizzy, confusion Latex Rash 04/05/2024 Penicillins Rash 10/13/2001 documented as of this encounter (statuses as of 06/21/2024) Medications Medication Sig Dispensed Refills Start Date [...] tablet by mouth daily as directed by [facility] coumadin clinic 90 Tablet 1 04/25/2024 Active Rosuvastatin Calcium 20 MG Oral Tablet (Crestor) TAKE 1 TABLET BY MOUTH ONCE DAILY 90 Tablet 05/24/2024 Active Furosemide 40 MG Oral Tablet (Lasix)Indications:H eart failure, diastolic, due to HTN ([facility]) TAKE ONE TABLET BY MOUTH [...] as of this encounter (statuses as of 06/21/2024) Active Problems Problem Noted Date Diagnosed Date [...] mitral regurgitation by prior echocardi ogram 10/18/2017 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 [...] as of this encounter (statuses as of 06/21/2024) Resolved Problems Problem Noted Date Diagnosed Date Resolved Date Coronary artery disease invo lving [place] heart without angina pectoris 04/18/2019 10/29/2019 COPD, [...] 02/28/2012 08/29/2018 Overview: Per CKD protocol #1 marine 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 use of 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 [...] as of this encounter (statuses as of 06/21/2024) Immunizations Name Administration Dates Next Due COVID-19 [...] 3:30 PM EDT Anticoagulation Pharmacy, [facility] [place] [address] [place] [address] Pharmacist1, [facility] 200 [facility] [place] [address] 09/18/2024 8:40 AM EST Office Visit Podiatry [facility] 132 [facility] [place] [address] Bryanna Guzman, DPM 132 [facility] [place] [address] 10/15/2024 3:00 PM EST Office Visit Cardiology, [facility] 132 [facility] [place] [address] Yeni Laureano CRNP 132 [facility] [address] 01/02/2025 3:00 PM EDT Office Visit Family Practice [facility] 200 [facility] [place] [address] Chad Phoenix, DO 200 [facility] [place] [address] 04/30/2025 3:00 PM EDT Office Visit Pulmonary Medicine, [facility] 132 [facility] [place] [address] Krunal Sherwood MD [address] [facility] [place] [address] Health Maintenance Due Date Last Done Comments [...] Care Agent (per Health Care Power of Transmission Engineer document) DAVID JojoJULIUSSUSANNE Adult Child Second Alternate Health Care Agent (per Health Care Power of Transmission Engineer document) Care Teams Boiling Off Winder Relationship Specialty Start Date End Date Chad Phoenix DO [address] [place] [address] PCP - General Family Medicine 06/02/18 documented as of this encounter
--- OUTSIDE RECORDS SUMMARY | 2024-07-17 15:43 | External Medical Summary | Summary of Care ---
Author Name Unknown Organization [facility] Address [address] [place] [facility] [place] [address] Phone [phone] Care Team Providers Care Probation Manager Name Role Phone JorgitoChad hager Primary Care Provider [phone] Encounter Details Date Type Department Care Team (Late st Contact Info) Description 06/28/2024 Population Health External Data Unspecified Department Allergies Active Allergy Reactions Criticality Noted Date Comments Glipizide 02/18/2021 Dizzy, confusion Latex Rash 04/05/2024 Penicillins Rash 10/13/2001 documented as of this encounter (statuses as of 06/28/2024) Medications Medication Sig Dispensed Refills Start Date [...] group B, by GOLD 2017 classification ([facility]) Inhale 1 Vial via [...] tablet by mouth daily as directed by [facility] coumadin clinic 90 Tablet 1 04/25/2024 Active Rosuvastatin Calcium 20 MG Oral Tablet (Crestor) TAKE 1 TABLET BY MOUTH ONCE DAILY 90 Tablet 05/24/2024 Active Furosemide 40 MG Oral Tablet (Lasix)Indications:H eart failure, diastolic, due to HTN ([facility]) TAKE ONE TABLET BY [...] as of this encounter (statuses as of 06/28/2024) Active Problems Problem Noted Date Diagnosed Date [...] as of this encounter (statuses as of 06/28/2024) Resolved Problems Problem Noted Date Diagnosed Date Resolved Date Coronary artery disease invo lving [place] heart without angina pectoris 04/18/2019 10/29/2019 [...] as of this encounter (statuses as of 06/28/2024) Immunizations Name Administration Dates Next Due COVID-19 [...] 3:30 PM EDT Anticoagulation Pharmacy, [facility] [place] [address] [place] [address] Pharmacist1, [facility] 200 [facility] [place] [address] 09/18/2024 8:40 AM EST Office Visit Podiatry [facility] 132 [facility] [place] [address] Bryanna Guzman, DPM 132 [facility] [place] [address] 10/15/2024 3:00 PM EST Office Visit Cardiology, [facility] 132 [facility] [place] [address] Yeni Laureano CRNP 132 [facility] [address] 01/02/2025 3:00 PM EDT Office Visit Family Practice [facility] 200 [facility] [place] [address] Chad Phoenix, DO 200 [facility] [place] [address] 04/30/2025 3:00 PM EDT Office Visit Pulmonary Medicine, [facility] 132 [facility] [place] [address] rKunal Sherwood MD [address] [facility] [address] Health Maintenance Due Date Last Done Comments [...] Care Agent (per Health Care Power of Candy Depositing Machine Operator document) DAVID JojoJULIUSSUSANNE Adult Child Second Alternate Health Care Agent (per Health Care Power of Candy Depositing Machine Operator document) Care Teams Probation Manager Relationship Specialty Start Date End Date Chad Phoenix DO [address] [place] [address] PCP - General Family Medicine 06/02/18 documented as of this encounter
--- OUTSIDE RECORDS SUMMARY | 2024-07-17 15:43 | External Medical Summary | Summary of Care ---
Author Name Unknown Organization [facility] Address [address] [facility] [place] [place] [address] Phone [phone] Care Team Providers Care Field Research Associate Name Role Phone JorgitoChad hager Primary Care Provider [phone] Encounter Details Date Type Department Care Team (Late st Contact Info) Description 07/02/2024 Population Health External Data Unspecified Department Allergies Active Allergy Reactions Criticality Noted Date Comments Glipizide 02/18/2021 Dizzy, confusion Latex Rash 04/05/2024 Penicillins Rash 10/13/2001 documented as of this encounter (statuses as of 07/02/2024) Medications Medication Sig Dispensed Refills Start Date [...] by mouth daily as directed by 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 0 10/18/2017 [...] as of this encounter (statuses as of 07/02/2024) Resolved Problems Problem Noted Date Diagnosed Date Resolved Date Coronary artery disease invo lving [place] heart without angina pectoris 04/18/2019 10/29/2019 COPD, [...] 02/28/2012 08/29/2018 Overview: Per CKD protocol #1 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 [...] as of this encounter (statuses as of 07/02/2024) Immunizations Name Administration Dates Next Due COVID-19 [...] 3:30 PM EDT Anticoagulation Pharmacy, [facility] [place] [address] [place] [address] Pharmacist1, [facility] 200 [facility] [place] [address] 09/18/2024 8:40 AM EST Office Visit Podiatry [facility] 132 [facility] [place] [address] Bryanna Guzman, DPM 132 [facility] [place] [address] 10/15/2024 3:00 PM EST Office Visit Cardiology, [facility] 132 [facility] [place] [address] Yeni Laureano CRNP 132 [facility] [address] 01/02/2025 3:00 PM EDT Office Visit Family Practice [facility] 200 [facility] [place] [address] Chad Phoenix, DO 200 [facility] [place] [address] 04/30/2025 3:00 PM EDT Office Visit Pulmonary Medicine, [facility] 132 [facility] [place] [address] Krunal Sherwood MD [address] [facility] [address] Health Maintenance Due Date Last Done Comments [...] Care Agent (per Health Care Power of Field Crop Farmworker document) DAVID JojoJULIUSSUSANNE Adult Child Second Alternate Health Care Agent (per Health Care Power of Field Crop Farmworker document) Care Teams Field Research Associate Relationship Specialty Start Date End Date Chad Phoenix DO [address] [place] [address] PCP - General Family Medicine 06/02/18 documented as of this encounter
--- OUTSIDE RECORDS SUMMARY | 2024-07-17 15:44 | External Medical Summary | Summary of Care ---
Author Name Unknown Organization [facility] Address [address] [facility] [place] [address] Phone [phone] Care Team Providers Care Carburizing Furnace Operator Name Role Phone JorgitoChad hager Primary Care Provider [phone] Encounter Details Date Type Department Care Team (Late st Contact Info) Description 06/19/2024 Population Health External Data Unspecified Department Allergies Active Allergy Reactions Criticality Noted Date Comments Glipizide 02/18/2021 Dizzy, confusion Latex Rash 04/05/2024 Penicillins Rash 10/13/2001 documented as of this encounter (statuses as of 06/19/2024) Medications Medication Sig Dispensed Refills Start Date [...] B, by GOLD 2017 classification ([facility]) Inhale 1 Vial via nebulizer every 4 [...] tablet by mouth daily as directed by [facility] coumadin clinic 90 Tablet 1 04/25/2024 Active Rosuvastatin Calcium 20 MG Oral Tablet (Crestor) TAKE 1 TABLET BY MOUTH ONCE DAILY 90 Tablet 05/24/2024 Active Furosemide 40 MG Oral Tablet (Lasix)Indications:H eart failure, diastolic, due to HTN ([facility]) TAKE ONE TABLET BY MOUTH IN THE [...] as of this encounter (statuses as of 06/19/2024) Active Problems Problem Noted Date Diagnosed Date [...] mitral regurgitation by prior echocardi ogram 10/18/2017 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 0 10/18/2017 [...] as of this encounter (statuses as of 06/19/2024) Resolved Problems Problem Noted Date Diagnosed Date Resolved Date Coronary artery disease invo lving [place] heart without angina pectoris 04/18/2019 10/29/2019 COPD, [...] 02/28/2012 08/29/2018 Overview: Per CKD protocol #1 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 of 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 therapy 03/05/2011 [...] as of this encounter (statuses as of 06/19/2024) Immunizations Name Administration Dates Next Due COVID-19 [...] 3:30 PM EDT Anticoagulation Pharmacy, [facility] [place] [address] [place] [address] Pharmacist1, [facility] 200 [facility] [place] [address] 09/18/2024 8:40 AM EST Office Visit [facility] 132 [facility] [place] [address] Bryanna Guzman, DPM 132 [facility] [place] [address] 10/15/2024 3:00 PM EST Office Visit Cardiology, [facility] 132 [facility] [place] [address] Yeni Laureano CRNP 132 [facility] [address] 01/02/2025 3:00 PM EDT Office Visit Family Practice [facility] 200 [facility] [place] [address] Chad Phoenix, DO 200 [facility] [place] [address] 04/30/2025 3:00 PM EDT Office Visit Pulmonary Medicine, [facility] 132 [facility] [place] [address] Krunal Sherwood MD [address] [facility] [place] [address] Health Maintenance Due Date Last Done Comments [...] Care Agent (per Health Care Power of Geometrician document) DAVID JojoJULIUSSUSANNE Adult Child Second Alternate Health Care Agent (per Health Care Power of Geometrician document) Care Teams Carburizing Furnace Operator Relationship Specialty Start Date End Date Chad Phoenix DO [address] [place] [address] PCP - General Family Medicine 06/02/18 documented as of this encounter
--- OUTSIDE RECORDS SUMMARY | 2024-07-17 15:44 | External Medical Summary | Summary of Care ---
Author Name Unknown Organization [facility] Address [address] [facility] [place] [address] Phone [phone] Care Team Providers Care Locomotive Electrician Name Role Phone JorgitoChad hager Primary Care Provider [phone] Encounter Details Date Type Department Care Team (Late st Contact Info) Description 06/12/2024 Population Health External Data Unspecified Department Allergies Active Allergy Reactions Criticality Noted Date Comments Glipizide 02/18/2021 Dizzy, confusion Latex Rash 04/05/2024 Penicillins Rash 10/13/2001 documented as of this encounter (statuses as of 06/12/2024) Medications Medication Sig Dispensed Refills Start Date [...] group B, by GOLD 2017 classification ([facility]) Inhale 1 Vial via [...] directed by [facility] coumadin clinic 90 Tablet 1 04/25/2024 Active Rosuvastatin Calcium 20 MG Oral Tablet (Crestor) TAKE 1 TABLET BY MOUTH ONCE DAILY 90 Tablet 05/24/2024 Active Furosemide 40 MG Oral Tablet (Lasix)Indications:H eart failure, diastolic, due to HTN ([facility]) TAKE ONE TABLET BY [...] as of this encounter (statuses as of 06/12/2024) Active Problems Problem Noted Date Diagnosed Date [...] mitral regurgitation by prior echocardi ogram 10/18/2017 group home 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 therapy [...] as of this encounter (statuses as of 06/12/2024) Resolved Problems Problem Noted Date Diagnosed Date Resolved Date Coronary artery disease invo 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 04/18/2019 10/29/2019 COPD, [...] 02/28/2012 08/29/2018 Overview: Per CKD protocol #1 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 counselor 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 use of 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 therapy 03/05/2011 [...] as of this encounter (statuses as of 06/12/2024) Immunizations Name Administration Dates Next Due COVID-19 [...] Care Team (Late st Contact Info) Description 06/13/2024 2:30 PM EDT PulmDiagnostic Pulmonary Function Lab, [facility] [address] [place] [address] [place] [place] [address] 07/17/2024 3:30 PM EDT Anticoagulation Pharmacy, [facility] [address] [place] [address] Pharmacist1, [facility] [address] [place] [address] 09/18/2024 8:40 AM EST Office Visit Podiatry [facility] [address] [place] [address] Bryanna Gzuman DPM [address] [place] [address] 10/15/2024 3:00 PM EST Office Visit Cardiology, [facility] [address] [place] [address] Yeni Laureano CRNP [address] [place] [address] 01/02/2025 3:00 PM EDT Office Visit Family Practice [facility] 200 [facility] [place] [address] Chad Phoenix, DO [address] [facility] [place] [address] 04/30/2025 3:00 PM EDT Office Visit Pulmonary Medicine, [facility] [address] [place] [address] Krunal Sherwood MD [address] [place] [address] Health Maintenance Due Date Last Done Comments [...] Name Relationship Healthcare Agent Relationship Communication Rusty Omidmildred Spouse First Alternate Health Care Agent (per Health Care Power of Slitter And Rewinder document) DAVID Pearl Adult Child Second Alternate Health Care Agent (per Health Care Power of Slitter And Rewinder document) Care Teams Locomotive Electrician Relationship Specialty Start Date End Date Chad Phoenix DO [address] [place] [address] PCP - General Family Medicine 06/02/18 documented as of this encounter
--- OUTSIDE RECORDS SUMMARY | 2024-07-17 15:44 | External Medical Summary | Summary of Care ---
Author Name Unknown Organization [facility] Address [address] [facility] [place] [address] Phone [phone] Care Team Providers Care Corner Block Cutter Name Role Phone JorgitoChad hager Primary Care Provider [phone] Reason for Visit * Reason Comments Oxygen Assessment 6 [address] Encounter Details Date Type Department Care Team (Latest Contact Info) Description 06/13/2024 2:30 PM EDT PulmDiagnostic Pulmonary Function Lab, [facility] [address] [facility] [place] [address] West, [address] [facility] [place] [address] Chronic respiratory failure with hypoxia (HCC)* Allergies Active Allergy Reactions Criticality Noted Date Comments Glipizide 02/18/2021 Dizzy, confusion Latex Rash 04/05/2024 Penicillins Rash 10/13/2001 documented as of this encounter (statuses as of 06/13/2024) Medications Medication Sig Dispensed Refills Start Date [...] by mouth daily as directed by [facility] coumadin clinic 90 Tablet 1 [...] as of this encounter (statuses as of 06/13/2024) Active Problems Problem Noted Date Diagnosed Date [...] mitral regurgitation by prior echocardi ogram 10/18/2017 [facility] 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 therapy 0 10/18/2017 [...] as of this encounter (statuses as of 06/13/2024) Resolved Problems Problem Noted Date Diagnosed Date Resolved Date Coronary artery disease invo lving [place] heart without angina pectoris 04/18/2019 10/29/2019 COPD, [...] 02/28/2012 08/29/2018 Overview: Per CKD protocol #1 terminologist current use of 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 therapy 03/05/2011 [...] as of this encounter (statuses as of 06/13/2024) Immunizations Name Administration Dates Next Due COVID-19 [...] Passive Smoke Exposure: Past Smokeless Tobacco: Never Tobacco Cessation:Counseling Given: Not Answered Alcohol Use Standard Drinks/Week Comments Yes 0 [...] Sign Reading Time Taken Comments Blood Pressure 120/64 06/13/2024 2:20 PM EDT Pulse 83 06/13/2024 2:20 PM EDT Temperature - - Respiratory Rate 16 06/13/2024 2:20 PM EDT Oxygen Saturation 94% 06/13/2024 2:20 PM EDT Inhaled Oxygen Concentration - - Weight 80.7 kg (177 lb 14.6 oz) 06/13/2024 2:20 PM EDT Height 149 cm (4' 10.66") 06/13/2024 2:20 PM EDT Body Mass Index 36.35 06/13/2024 2:20 PM EDT documented in this encounter Nursing Notes * Shahriar Aguirre RRT - 06/13/2024 2:48 PM EDT Tori May was identified by name, Date of : (1935), and . Vitals were obtained for testing. Body mass index is 36.35 kg/m. Exercise oximetry performed on room air x 6 minutes. Pt ambulated 990 feet/ 302 meters. No rest periods were required. Lowest SPO2 on room air was 91%. documented in this encounter Plan of Treatment Upcoming Encounters Date Type Department Care Team (Late st Contact Info) Description 07/17/2024 3:30 PM EDT Anticoagulation Pharmacy, [facility] [address] [place] [address] Pharmacist1, [facility] [address] [facility] [place] [address] 09/18/2024 8:40 AM EST Office Visit Podiatry [facility] [address] [place] [address] Bryanna Guzman DPM [address] [place] [address] 10/15/2024 3:00 PM EST Office Visit Cardiology, [facility] 132 [facility] [place] [address] Yeni Laureano CRNP [address] [place] [address] 01/02/2025 3:00 PM EDT Office Visit Family Practice [facility] [address] [place] [address] Chad Phoenix DO 200 [facility] [place] [address] 04/30/2025 3:00 PM EDT Office Visit Pulmonary Medicine, [facility] [place] [address] Krunal Sherwood MD [address] [facility] [place] [address] Health Maintenance Due Date Last Done Comments [...] Depression Screening 09/21/2024 09/21/2023 HbA1c 11/04/2024 05/04/2024, 01/11/2023, 04/05/2023, Additional history exists Albumin/Creatinine Ratio 05/04/2025 [...] as of this encounter Visit Diagnoses Diagnosis Chronic respiratory failure with hypoxia (HCC)- Primary Chronic respiratory failure documented in this encounter Advance Directives * Full Code [...] Care Agent (per Health Care Power of [place] document) DAVID JojoKHADRA Adult Child Second Alternate Health Care Agent (per Health Care Power of [place] document) Care Teams Corner Block Cutter Relationship Specialty Start Date End Date Chad Phoenix DO [address] [place] [address] PCP - General Family Medicine 06/02/18 documented as of this encounter
--- OUTSIDE RECORDS SUMMARY | 2024-07-17 15:44 | External Medical Summary | Summary of Care ---
Author Name Unknown Organization [facility] Address [address] [facility] [place] [address] Phone [phone] Care Team Providers Care Slumber Room Attendant Name Role Phone JorgitoChad hager Primary Care Provider [phone] Encounter Details Date Type Department Care Team (Late st Contact Info) Description 06/15/2024 Population Health External Data Unspecified Department Allergies Active Allergy Reactions Criticality Noted Date Comments Glipizide 02/18/2021 Dizzy, confusion Latex Rash 04/05/2024 Penicillins Rash 10/13/2001 documented as of this encounter (statuses as of 06/15/2024) Medications Medication Sig Dispensed Refills Start Date [...] tablet by mouth daily as directed by [facility] coumadin clinic 90 Tablet 1 04/25/2024 Active Rosuvastatin Calcium 20 MG Oral Tablet (Crestor) TAKE 1 TABLET BY MOUTH ONCE DAILY 90 Tablet 05/24/2024 Active Furosemide 40 MG Oral Tablet (Lasix)Indications:H eart failure, diastolic, due to HTN ([facility]) TAKE ONE TABLET BY MOUTH IN [...] as of this encounter (statuses as of 06/15/2024) Active Problems Problem Noted Date Diagnosed Date [...] as of this encounter (statuses as of 06/15/2024) Resolved Problems Problem Noted Date Diagnosed Date Resolved Date Coronary artery disease invo lving [place] heart without angina pectoris 04/18/2019 10/29/2019 COPD, [...] 02/28/2012 08/29/2018 Overview: Per CKD protocol #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 03/05/2011 [...] as of this encounter (statuses as of 06/15/2024) Immunizations Name Administration Dates Next Due COVID-19 [...] 3:30 PM EDT Anticoagulation Pharmacy, [facility] [place] [address] [place] [address] Pharmacist1, [facility] [address] [facility] [place] [address] 09/18/2024 8:40 AM EST Office Visit Podiatry [facility] 132 [facility] [place] [address] Bryanna Guzman, DPM 132 [facility] [place] [address] 10/15/2024 3:00 PM EST Office Visit Cardiology, [facility] [place] [address] Yeni Laureano CRNP [address] [facility] [place] [address] 01/02/2025 3:00 PM EDT Office Visit Family Practice [facility] [address] [facility] [place] [address] Chad Phoenix, DO [address] [facility] [place] [address] 04/30/2025 3:00 PM EDT Office Visit Pulmonary Medicine, [facility] [address] [facility] [place] [address] Krunal Sherwood MD [address] [facility] [place] [address] Health Maintenance Due Date Last Done Comments [...] Care Agent (per Health Care Power of Business Intelligence Etl Developer document) DAVID JojoJULIUSSUSANNE Adult Child Second Alternate Health Care Agent (per Health Care Power of Business Intelligence Etl Developer document) Care Teams Slumber Room Attendant Relationship Specialty Start Date End Date Chad Phoenix DO [address] [place] [address] PCP - General Family Medicine 06/02/18 documented as of this encounter
--- OUTSIDE RECORDS SUMMARY | 2024-07-17 15:44 | External Medical Summary | Summary of Care ---
Author Name Unknown Organization [facility] Address [address] [facility] [place] [address] Phone [phone] Care Team Providers Care Regional Marketing Director Name Role Phone JorgitoChad hager Primary Care Provider [phone] Reason for Visit * Reason Comments Oxygen Assessment 6 minute walk Encounter Details Date Type Department Care Team (Latest Contact Info) Description 06/13/2024 2:30 PM EDT PulmDiagnostic Pulmonary Function Lab, [facility] [address] [facility] [place] [address] West, Pft [address] 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 [...] Description 07/17/2024 3:30 PM EDT [facility]tico[facility], [facility] [address] [place] [address] Pharmacist1, [facility] [address] [facility] [place] [address] 09/18/2024 8:40 AM EST Office Visit Podiatry [facility] [address] [place] [address] Bryanna Guzman DPM [address] [place] [address] 10/15/2024 3:00 PM EST Office Visit Cardiology, [facility] 132 [facility] [place] [address] Yeni Laureano CRNP [address] [place] [address] 01/02/2025 3:00 PM EDT Office Visit Family Practice [facility] [address] [place] [address] Chad Phoenix DO 200 [facility] [place] [address] 04/30/2025 3:00 PM EDT Office Visit Pulmonary Medicine, [facility] [address] [facility] [place] [address] Krunal Sherwood MD [address] [facility] [place] [address] Health Maintenance Due Date Last Done Comments [...] Care Agent (per Health Care Power of Office Machine Service Supervisor document) DAVID JojoKHADRA Adult Child Second Alternate Health Care Agent (per Health Care Power of Office Machine Service Supervisor document) Care Teams Regional Marketing Director Relationship Specialty Start Date End Date Chad Phoenix DO [address] [place] [address] PCP - General Family Medicine 06/02/18 documented as of this encounter
--- OUTSIDE RECORDS SUMMARY | 2024-07-17 15:44 | External Medical Summary | Summary of Care ---
Author Name Unknown Organization [facility] Address [address] [facility] [place] [address] Phone [phone] Care Team Providers Care Linotype Mechanic Name Role Phone JorgitoChad hager Primary Care Provider [phone] Encounter Details Date Type Department Care Team (Late st Contact Info) Description 06/20/2024 Population Health External Data Unspecified Department Allergies Active Allergy Reactions Criticality Noted Date Comments Glipizide 02/18/2021 Dizzy, confusion Latex Rash 04/05/2024 Penicillins Rash 10/13/2001 documented as of this encounter (statuses as of 06/20/2024) Medications Medication Sig Dispensed Refills Start Date [...] diastolic, due to HTN ([facility]) TAKE ONE TABLET BY MOUTH [...] as of this encounter (statuses as of 06/20/2024) Active Problems Problem Noted Date Diagnosed Date [...] as of this encounter (statuses as of 06/20/2024) Resolved Problems Problem Noted Date Diagnosed Date Resolved Date Coronary artery disease invo lving [place] heart without angina pectoris 04/18/2019 10/29/2019 COPD, [...] as of this encounter (statuses as of 06/20/2024) Immunizations Name Administration Dates Next Due COVID-19 [...] 3:30 PM EDT Anticoagulation Pharmacy, [facility] [place] [address] [place] [address] Pharmacist1, [facility] 200 [facility] [place] [address] 09/18/2024 8:40 AM EST Office Visit Podiatry [facility] 132 [facility] [place] [address] Bryanna Guzman, DPM 132 [facility] [place] [address] 10/15/2024 3:00 PM EST Office Visit Cardiology, [facility] 132 [facility] [place] [address] Yeni Laureano CRNP [address] [facility] [address] 01/02/2025 3:00 PM EDT Office Visit Family Practice [facility] [place] [address] Chad Phoenix, DO [address] [facility] [place] [address] 04/30/2025 3:00 PM EDT Office Visit Pulmonary Medicine, [facility] 132 [facility] [place] [address] Krunal Sherwood MD [address] [facility] [address] Health Maintenance Due Date Last Done Comments [...] Care Agent (per Health Care Power of Skip Operator document) DAVID JojoJULIUSSUSANNE Adult Child Second Alternate Health Care Agent (per Health Care Power of Skip Operator document) Care Teams Linotype Mechanic Relationship Specialty Start Date End Date Chad Phoenix DO [address] [place] [address] PCP - General Family Medicine 06/02/18 documented as of this encounter
--- OUTSIDE RECORDS SUMMARY | 2024-07-17 15:44 | External Medical Summary | Summary of Care ---
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 pectoris 04/18/2019 10/29/2019 COPD, [...] 2:30 PM EDT PulmDiagnostic Pulmonary Function Lab, [facility] [address] [place] [address] [place], [address] [place] [address] 07/17/2024 3:30 PM EDT Anticoagulation Pharmacy, [facility] [address] [place] [address] Pharmacist1, [facility] [address] [place] [address] 09/18/2024 8:40 AM EST Office Visit Podiatry [facility] [address] [place] [address] Bryanna Guzman DPM [address] [place] [address] 10/15/2024 3:00 PM EST Office Visit Cardiology, [facility] [address] [place] [address] Yeni Laureano CRNP [address] [place] [address] 01/02/2025 3:00 PM EDT Office Visit Family Practice [facility] 200 [facility] [place] [address] Chad Phoenix, DO 200 [facility] [place] [address] 04/30/2025 3:00 PM EDT Office Visit Pulmonary Medicine, [facility] [address] [place] [address] Krunal Sherwood MD [address] [place] [address] Health Maintenance Due Date Last Done Comments [...] Care Agent (per Health Care Power of Insurance Legal Assistant document) DAVID Pearl Adult Child Second Alternate Health Care Agent (per Health Care Power of Insurance Legal Assistant document) Care Teams Vegetable Vendor Relationship Specialty Start Date End Date Chad Phoenix DO [address] [place] [address] PCP - General Family Medicine 06/02/18 documented as of this encounter
--- OUTSIDE RECORDS SUMMARY | 2024-07-17 15:44 | External Medical Summary | Summary of Care ---
Author Name Unknown Organization [facility] Address [address] [facility] [place] [address] Phone [phone] Care Team Providers Care Process Engineering Technician Name Role Phone JorgitoChad hager Primary Care Provider [phone] Encounter Details Date Type Department Care Team (Late st Contact Info) Description 06/18/2024 Population Health External Data Unspecified Department Allergies Active Allergy Reactions Criticality Noted Date Comments Glipizide 02/18/2021 Dizzy, confusion Latex Rash 04/05/2024 Penicillins Rash 10/13/2001 documented as of this encounter (statuses as of 06/18/2024) Medications Medication Sig Dispensed Refills Start Date [...] ns:COPD, group B, by GOLD 2017 classification ([facility]) Inhale 1 Vial via nebulizer every [...] directed by [facility] coumadin clinic 90 Tablet 1 04/25/2024 Active Rosuvastatin Calcium 20 MG Oral Tablet (Crestor) TAKE 1 TABLET BY MOUTH ONCE DAILY 90 Tablet 05/24/2024 Active Furosemide 40 MG Oral Tablet (Lasix)Indications:H eart failure, diastolic, due to HTN ([facility]) TAKE ONE TABLET BY MOUTH IN [...] as of this encounter (statuses as of 06/18/2024) Active Problems Problem Noted Date Diagnosed Date [...] mitral regurgitation by prior echocardi ogram 10/18/2017 [facility] 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 therapy 0 10/18/2017 [...] as of this encounter (statuses as of 06/18/2024) Resolved Problems Problem Noted Date Diagnosed Date Resolved Date Coronary artery disease invo lving [place] heart without angina pectoris 04/18/2019 10/29/2019 COPD, [...] as of this encounter (statuses as of 06/18/2024) Immunizations Name Administration Dates Next Due COVID-19 [...] 3:30 PM EDT Anticoagulation Pharmacy, [facility] [place] [address] [place] [address] Pharmacist1, [facility] 200 [facility] [place] [address] 09/18/2024 8:40 AM EST Office Visit Podiatry [facility] [address] [facility] [place] [address] Bryanna Guzman, DPM 132 [facility] [place] [address] 10/15/2024 3:00 PM EST Office Visit Cardiology, [facility] 132 [facility] [place] [address] Yeni Laureano CRNP 132 [facility] [address] 01/02/2025 3:00 PM EDT Office Visit Family Practice [facility] 200 [facility] [place] [address] Chad Phoenix, DO 200 [facility] [place] [address] 04/30/2025 3:00 PM EDT Office Visit Pulmonary Medicine, [facility] 132 [facility] [place] [address] Krunal hSerwood MD [address] [facility] [place] [address] Health Maintenance Due Date Last Done Comments [...] Care Agent (per Health Care Power of Aircraft Engine Assembler document) DAVID JojoJULIUSSUSANNE Adult Child Second Alternate Health Care Agent (per Health Care Power of Aircraft Engine Assembler document) Care Teams Process Engineering Technician Relationship Specialty Start Date End Date Chad Phoenix DO [address] [place] [address] PCP - General Family Medicine 06/02/18 documented as of this encounter
--- OUTSIDE RECORDS SUMMARY | 2024-07-17 15:44 | External Medical Summary | Summary of Care ---
Author Name Unknown Organization [facility] Address [address] [facility] [place] [address] Phone [phone] Care Team Providers Care Lumber Scaler Name Role Phone JorgitoChad hager Primary Care Provider [phone] Encounter Details Date Type Department Care Team (Late st Contact Info) Description 06/14/2024 Population Health External Data Unspecified Department Allergies Active Allergy Reactions Criticality Noted Date Comments Glipizide 02/18/2021 Dizzy, confusion Latex Rash 04/05/2024 Penicillins Rash 10/13/2001 documented as of this encounter (statuses as of 06/14/2024) Medications Medication Sig Dispensed Refills Start Date [...] B, by GOLD 2017 classification ([facility]) Inhale 1 Vial via nebulizer every [...] tablet by mouth daily as directed by [facility] cou[facility] 90 Tablet 1 04/25/2024 Active Rosuvastatin Calcium 20 MG Oral Tablet (Crestor) TAKE 1 TABLET BY MOUTH ONCE DAILY 90 Tablet 05/24/2024 Active Furosemide 40 MG Oral Tablet (Lasix)Indications:H eart failure, diastolic, due to HTN ([facility]) TAKE ONE TABLET BY MOUTH IN THE [...] as of this encounter (statuses as of 06/14/2024) Active Problems Problem Noted Date Diagnosed Date [...] as of this encounter (statuses as of 06/14/2024) Resolved Problems Problem Noted Date Diagnosed Date Resolved Date Coronary artery disease invo lving [place] heart without angina pectoris 04/18/2019 10/29/2019 COPD, [...] 02/28/2012 08/29/2018 Overview: Per CKD protocol #1 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 current use of 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 therapy 03/05/2011 [...] as of this encounter (statuses as of 06/14/2024) Immunizations Name Administration Dates Next Due COVID-19 [...] 3:30 PM EDT Anticoagulation Pharmacy, [facility] [place] [address] [place] [address] Pharmacist1, [facility] 200 [facility] [place] [address] 09/18/2024 8:40 AM EST Office Visit Podiatry [facility] 132 [facility] [place] [address] Bryanna Guzman, DPM [address] [facility] [place] [address] 10/15/2024 3:00 PM EST Office Visit Cardiology, [facility] 132 [facility] [place] [address] Yeni Laureano CRNP 132 [facility] [address] 01/02/2025 3:00 PM EDT Office Visit Family Practice [facility] 200 [facility] [place] [address] Chad Phoenix, DO [address] [facility] [place] [address] 04/30/2025 3:00 PM EDT Office Visit Pulmonary Medicine, [facility] 132 [facility] [place] [address] Krunal Sherwood MD [address] [facility] [address] Health Maintenance Due Date Last Done Comments [...] Care Agent (per Health Care Power of It Support Analyst document) DAVID JojoJULIUSSUSANNE Adult Child Second Alternate Health Care Agent (per Health Care Power of It Support Analyst document) Care Teams Lumber Scaler Relationship Specialty Start Date End Date Chad Phoenix DO [address] [place] [address] PCP - General Family Medicine 06/02/18 documented as of this encounter
--- OUTSIDE RECORDS SUMMARY | 2024-07-17 15:45 | External Medical Summary | Summary of Care ---
Author Name Unknown Organization [facility] Address [address] [place] [address] Phone [phone] Care Team Providers Care Hop Trainer Name Role Phone JorgitoChad hager Primary Care Provider [phone] Encounter Details Date Type Department Care Team (Late st Contact Info) Description 06/07/2024 Population Health External Data Unspecified Department Allergies Active Allergy Reactions Criticality Noted Date Comments Glipizide 02/18/2021 Dizzy, confusion Latex Rash 04/05/2024 Penicillins Rash 10/13/2001 documented as of this encounter (statuses as of 06/07/2024) Medications Medication Sig Dispensed Refills Start Date [...] group B, by GOLD 2017 classification ([facility]) Inhale 1 Vial via nebulizer [...] tablet by mouth daily as directed by [facility] 90 Tablet 1 04/25/2024 Active Rosuvastatin Calcium 20 MG Oral Tablet (Crestor) TAKE 1 TABLET BY MOUTH ONCE DAILY 90 Tablet 05/24/2024 Active Furosemide 40 MG Oral Tablet (Lasix)Indications:H eart failure, diastolic, due to HTN ([facility]) TAKE ONE TABLET BY MOUTH [...] as of this encounter (statuses as of 06/07/2024) Active Problems Problem Noted Date Diagnosed Date [...] mitral regurgitation by prior echocardi ogram 10/18/2017 halfway 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 therapy 0 10/18/2017 [...] as of this encounter (statuses as of 06/07/2024) Resolved Problems Problem Noted Date Diagnosed Date [...] 02/28/2012 08/29/2018 Overview: Per CKD protocol #1 salvage determiner current use of 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 therapy 03/05/2011 [...] as of this encounter (statuses as of 06/07/2024) Immunizations Name Administration Dates Next Due COVID-19 mRNA, LNP-s, No Pre serve, 2-Dose Series (Moderna) 12/09/2020,11/11/2020 COVID-19, mRNA, LNP-s, PF, B ooster, 100mcg/0.5mg (Moderna) 09/23/2021 H1N1 2009 Influenza, IM 11/18/2009 Pneumococcal Conjugate Vacc, 13 Valent (Prevnar) 12/17/2015 Pneumococcal Polysaccharide PPV23 (Pneumovax) 02/16/2010 Season Influenza, Quad, PF, Adjuvanted, 65+ Yrs, IM (FLUAD) 09/01/2020 Seasonal Influenza, PF, 6 M & above, IM , (FluLaval or Fluzone) 07/21/2018 Seasonal Influenza, Quadriva lent Hd (Fluzone Hd) 07/25/2023,06/30/2022,07/02/2021 Seasonal Influenza, Quadriva lent, No Preserve, IM 08/08/2015 Seasonal Influenza, Split, I IV3, With Preserve, Inj 07/14/2016,07/17/2014,07/03/2013,08/09,07/07/2011,07/14/2010,07/15/2009 ,07/24/2008,07/12/2007,07/15/2006 Seasonal Influenza, Trivalen t, Adjuvanted, 65+ yrs 08/08/2019 Seasonal Influenza, Trivalen t, High Dose, No Preserve, IM 07/01/2017 TDAP (age 10 and older)(Boostrix) 09/02/2014 Zoster [...] 09/21/2023 Does the household have a re lar source of income? (Household - for ages [...] 2:30 PM EDT PulmDiagnostic Pulmonary Function Lab, [facility] [address] [place] [address] [address], [address] [facility] [place] [address] 07/17/2024 3:30 PM EDT Anticoagulation Pharmacy, [facility] [place] [address] [place] [address] Pharmacist1, [facility] [address] [facility] [place] [address] 09/18/2024 8:40 AM EST Office Visit Podiatry [facility] [address] [facility] [place] [address] Bryanna Guzman, GIBRAN [address] [place] [address] 10/15/2024 3:00 PM EST Office Visit Cardiology, [facility] [address] [place] [address] Yeni Laureano CRNP [address] [facility] [place] [address] 01/02/2025 3:00 PM EDT Office Visit Family Practice [facility] [place] [address] [place] [address] Chad Phoenix, DO [address] [facility] [place] [address] 04/30/2025 3:00 PM EDT Office Visit Pulmonary Medicine, [facility] [address] [facility] [place] [address] Krunal Sherwood MD [address] [place] [address] Health Maintenance Due Date Last Done Comments Adult Wellness Visit 04/15/2022 04/15/2021 COVID-19 Vaccine ( season) 2023 09/23/2021, 12/09/2020, 11/11/2020 Diabetic Eye Exam 06/06/2024 06/06/2023, , 12/06/2022, Additional history exists Influenza Vaccine (FLU shot) (#1) 2024 09/16/2023, 07/25/2023, 06/30/2022, Additional history exists Zoster Vaccines (2 of 2) 07/31/2024 06/05/2024 DTap/Tdap Vaccines (2 - Td or Tdap) 09/02/2024 09/02/2014 Depression Screening 09/21/2024 09/21/2023 HbA1c 11/04/2024 05/04/2024, 010 11/2023, 04/05/2023, Additional history exists Albumin/Creatinine Ratio [...] Care Agent (per Health Care Power of Community Relations Director document) DAVID Pearl Adult Child Second Alternate Health Care Agent (per Health Care Power of Community Relations Director document) Care Teams Hop Trainer Relationship Specialty Start Date End Date Chad Phoenix DO [address] [place] [address] PCP - General Family Medicine 06/02/18 documented as of this encounter
--- OUTSIDE RECORDS SUMMARY | 2024-07-17 15:45 | External Medical Summary ---
Author Name Unknown Address Unknown Organization K09:[facility] [address] Laboratory Report Ordering Provider Test Date Status FERNANDO REAGAN1 06/05/2024 13:22:53 Final Therapeutic ranges for non-o perative patients:
Prophylaxsis/treatment of DVT: (Range:2.0-3.0)
Treatment of pulmonary embolism:(Range:2.0-3.0)
Prevention of systemic embolism from:
-tissue heart valves
-acute myocardial infarction
-valvular heart disease
-atrial fibrillation
(Range: 2.0-3.0)
Mechanical prosthetic valves: (Range: 2.5-3.5) Observation Date Value Abnormality Reference (Units ) Status INR in Capillary blood by Coagulation assay 06/05/2024 13:22:53 2.2 (INR) Final Performing Location [facility] [address]
--- OUTSIDE RECORDS SUMMARY | 2024-07-17 15:45 | External Medical Summary | Summary of Care ---
Author Name Unknown Organization [facility] Address [address] [facility] [place] [address] Phone [phone] Care Team Providers Care Skin Lifter Bacon Name Role Phone Letitia Phoenix DO Primary Care Provider [phone] Reason for Visit * Reason Comments eRx-Medication Refill Encounter Details Date Type Department Care Team (Late st Contact Info) Description 05/22/2024 Refill Family Practice [facility] [address] [facility] [place] [address] Letitia Phoenix DO [address] [place] [address] Heart failure, diastolic, due to HTN ([facility]) Allergies Active Allergy Reactions Criticality Noted Date Comments Glipizide 02/18/2021 Dizzy, confusion Latex Rash 04/05/2024 Penicillins Rash 10/13/2001 documented as of this encounter (statuses as of 05/24/2024) Medications Medication Sig Dispensed Refills Start Date End Date Status NEBULIZER MISCIndications:Acu te bronchitis, complicated use every 8 hrs as directed 1 Units 0 1 Active SPACER/AERO CHAMBER MOUTHPIECE MISCIndications:Kathrin rtness of breath use with inhalers as instructed 1 Device 2 2 Active MAGNESIUM OXIDE 400 MG PO TABS one tablet by mouth twice daily 5 Active ONETOUCH ULTRASOFT LANCETS MISCIndications:DM type 2, goal A1c below 7 Test up to 4 times daily 5 Box Dosing Unit 10 6 Active acetaminophen (TYLENOL) 500 MG Tablet Take 1 Tablet by mouth every 4 hours as needed for Pain. Per [facility] dc summary 06/26/18 Active triamcinolone acetonide (ARISTOCORT) 0.1 % ointmentIndications :Eczema of right external ear Apply topically to affected area 2 times a day. To affected area on R external ear 60 g 9 Active OneTouch Verio In Vitro Strip (Glucose Blood) test once daily Dx. E11.9 100 Strip 3 1 Active Albuterol Sulfate (2.5 MG/3ML) 0.083% Inhalation Nebulization Solution (Proventil)Indicati ons:COPD, group B, by GOLD 2017 classification ([facility]) Inhale 1 Vial via nebulizer every 4 hours as needed for Wheezing or Shortness of Breath. 90 mL 3 3 Active oxygen IN GAS Increase to 3 LPM bled through CPAP with all sleep. T and B medical 1 Each 3 Active Levothyroxine Sodium 75 MCG Oral Tablet (Levoxyl)Indication s:Acquired hypothyroidism TAKE 1 TABLET BY MOUTH EVERY MORNING AT LEAST 30 MINUTES PRIOR TO BREAKFAST OR OTHER MEDICATIONS 90 Tablet 3 3 Active Pantoprazole Sodium 40 MG Oral Tablet Delayed Release (Protonix) TAKE 1 TABLET BY MOUTH ONCE DAILY 90 Tablet 3 4 Active dilTIAZem HCl ER 240 MG Oral Capsule Extended Release 24 HourIndications:Roby gstanding persistent atrial fibrillation (HCC) TAKE 1 CAPSULE BY MOUTH ONCE DAILY 90 Capsule 3 4 Active Montelukast Sodium 10 MG Oral Tablet (Singulair) TAKE 1 TABLET BY MOUTH EVERY MORNING 90 Tablet 3 4 Active Januvia 50 MG Oral TabletIndications:T ype 2 diabetes mellitus with stage 3 chronic kidney disease, without long-term current use of insulin, unspecified whether stage 3a or 3b CKD (HCC) Take 1 Tablet by mouth in the morning. In the morning.. 30 Tablet 5 4 Active Metoprolol Succinate ER 100 MG Oral Tablet Extended Release 24 Hour (toPROL XL) TAKE 1 TABLET BY MOUTH TWICE DAILY 180 Tablet 1 4 Active Isosorbide Mononitrate ER 30 MG Oral Tablet Extended Release 24 Hour (Imdur) TAKE 1 TABLET BY MOUTH EVERY MORNING 90 Tablet 1 4 Active Additional Information Patient taking differently: 15 mgOral Daily(AM), In the morning., Reported on 05/04/2024 Warfarin Sodium 5 MG Oral Tablet (Jantoven)Indicatio ns:Persistent atrial fibrillation (HCC) Take 1/2 to 1 tablet by mouth daily as directed by [facility] 90 Tablet 1 4 Active Rosuvastatin Calcium 20 MG Oral Tablet (Crestor) TAKE 1 TABLET BY MOUTH ONCE DAILY 90 Tablet 4 Active Furosemide 40 MG Oral Tablet (Lasix)Indications: Heart failure, diastolic, due to HTN (HCC) TAKE ONE TABLET BY MOUTH IN THE MORNING AND ONE TABLET BEFORE BEDTIME 180 Tablet 1 4 Active Furosemide 40 MG Oral Tablet (Lasix)Indications: Heart failure, diastolic, due to HTN (HCC) Take one tablet by mouth in the morning and take one tablet by mouth before bedtime 180 Tablet 1 4 05/24/20 24 Discontinued Rosuvastatin Calcium 20 MG Oral Tablet (Crestor) TAKE 1 TABLET BY MOUTH ONCE DAILY 90 Tablet 1 4 05/24/20 24 Discontinued documented as of this encounter (statuses as of 05/24/2024) Active Problems Problem Noted Date Diagnosed Date [...] as of this encounter (statuses as of 05/24/2024) Resolved Problems Problem Noted Date Diagnosed Date Resolved Date Coronary artery disease invo lving resighini heart without angina pectoris 04/18/2019 10/29/2019 COPD, [...] 08/29/2018 Overview: Per CKD protocol #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 current use of 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 therapy [...] as of this encounter (statuses as of 05/24/2024) Immunizations Name Administration Dates Next Due COVID-19 [...] encounter Miscellaneous Notes * Telephone Encounter - Tanya Garrido III, MD - 05/24/2024 11:40 AM EDTSigned Prescriptions: Disp Refills Rosuvastatin Calcium 20 MG Oral Tablet (Cr*90 Tab*0 Sig: TAKE 1 TABLET BY MOUTH ONCE DAILYAuthorizing Provider: TANYA GARRIDO III Furosemide 40 MG Oral Tablet (Lasix) 180 Ta*1 Sig: TAKE ONE TABLET BY MOUTH IN THE MORNING AND ONE TABLET BEFORE BEDTIMEAuthorizing Provider: LETITIA PHOENIX User: RINA OLIVERA * Telephone Encounter - Rina Olivera RPh - 05/24/2024 10:33 AM EDTPending Prescriptions: Disp Refills Rosuvastatin Calcium 20 MG Oral Tablet (Cr*90 Tab*0 Sig: TAKE 1 TABLET BY MOUTH ONCE DAILY Signed Prescriptions: Disp Refills Furosemide 40 MG Oral Tablet (Lasix) 180 Ta*1 Sig: TAKE ONE TABLET BY MOUTH IN THE MORNING AND ONE TABLET BEFORE BEDTIME Authorizing Provider: LETITIA PHOENIX User: RINA OLIVERA * Telephone Encounter - Rina Olivera RPh - 05/24/2024 10:32 AM EDT Please advise. Max dose patient should be on is 10 mg daily. However, do not see any recent reportsof muscle pain. Serum creatinine: 1.3 mg/dL (H) 05/04/24 1528 Estimated creatinine clearance: 26.6 mL/min (A) Rina Stover Clinical Pharmacist [facility] [phone] 05/24/2024, 10:32 AM documented in this encounter Plan of Treatment Upcoming Encounters Date Type Department Care Team (Late st Contact Info) Description 06/05/2024 1:50 PM EDT Anticoagulation Pharmacy, [facility] [address] [place] [address] Pharmacist1, [facility] [address] [facility] [place] [address] 06/05/2024 2:00 PM EDT Office Visit Family Practice [facility] [address] [facility] [place] [address] Letitia Phoenix, DO [address] [facility] [place] [address] 06/13/2024 2:30 PM EDT PulmDiagnostic Pulmonary Function Lab, [facility] [address] [facility] [place] [address] [address], [address] [facility] [place] [address] 09/18/2024 8:40 AM EST Office Visit Podiatry [facility] [address] [place] [address] Bryanna Guzman DPM [address] [place] [address] 10/15/2024 3:00 PM EST Office Visit Cardiology, [facility] [place] [address] Yeni Laureano CRNP [address] [place] [address] 04/30/2025 3:00 PM EDT Office Visit Pulmonary Medicine, [facility] [address] [place] [address] Krunal Sherwood MD [address] [place] [address] Health Maintenance Due Date Last Done Comments Zoster Vaccines (1 of 2) 1985 Adult Wellness Visit 04/15/2022 04/15/2021 COVID-19 Vaccine ( season) 2023 09/23/2021, 12/09/2020, 11/11/2020 Diabetic Foot Exam 10/26/2023 10/26/2022, 0 11/24/2021, 02/12/2021, Additional history exists Diabetic Eye Exam 06/06/2024 06/06/2023, , 12/06/2022, Additional history exists Influenza Vaccine (FLU shot) (#1) 2024 09/16/2023, 07/25/2023, 06/30/2022, Additional history exists DTaP,Tdap,and Td Vaccines (2 - Td or Tdap) 09/02/2024 09/02/2014 Depression Screening 09/21/2024 09/21/2023 HbA1c 11/04/2024 05/04/2024, 11/2023, 04/05/2023, Additional history exists Albumin/Creatinine Ratio 05/04/2025 024, 10/26/2022, 12/08/2021, Additional history exists TSH 05/04/2025 05/04/2024, 03/11, 04/14/2022, Additional history exists Pneumococcal Vaccine: 65+ Years [...] as of this encounter Visit Diagnoses Diagnosis Heart failure, diastolic, due to HTN (HCC) 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
--- OUTSIDE RECORDS SUMMARY | 2024-07-17 15:45 | External Medical Summary | Summary of Care ---
Author Name Unknown Organization [facility] Address [address] [place] [address] Phone [phone] Care Team Providers Care Undercollar Maker Name Role Phone JorgitohCad hager Primary Care Provider [phone] Encounter Details Date Type Department Care Team (Late st Contact Info) Description 06/08/2024 Population Health External Data Unspecified Department Allergies Active Allergy Reactions Criticality Noted Date Comments Glipizide 02/18/2021 Dizzy, confusion Latex Rash 04/05/2024 Penicillins Rash 10/13/2001 documented as of this encounter (statuses as of 06/08/2024) Medications Medication Sig Dispensed Refills Start Date [...] tablet by mouth daily as directed by [facility] coumadin clinic 90 Tablet 1 04/25/2024 Active Rosuvastatin Calcium 20 MG Oral Tablet (Crestor) TAKE 1 TABLET BY MOUTH ONCE DAILY 90 Tablet 05/24/2024 Active Furosemide 40 MG Oral Tablet (Lasix)Indications:H eart failure, diastolic, due to HTN ([facility]) TAKE ONE TABLET BY MOUTH IN THE [...] as of this encounter (statuses as of 06/08/2024) Active Problems Problem Noted Date Diagnosed Date [...] as of this encounter (statuses as of 06/08/2024) Resolved Problems Problem Noted Date Diagnosed Date Resolved Date Coronary artery disease invo lving [place] heart without angina pectoris 04/18/2019 10/29/2019 COPD, [...] as of this encounter (statuses as of 06/08/2024) Immunizations Name Administration Dates Next Due COVID-19 [...] 2:30 PM EDT PulmDiagnostic Pulmonary Function Lab, [facility] [address] [place] [address] [address], [address] [place] [address] 07/17/2024 3:30 PM EDT Anticoagulation Pharmacy, [facility] [address] [place] [address] Pharmacist1, [facility] [address] [facility] [place] [address] 09/18/2024 8:40 AM EST Office Visit Podiatry [facility] [address] [place] [address] Bryanna Guzman DPM [address] [place] [address] 10/15/2024 3:00 PM EST Office Visit Cardiology, [facility] [address] [place] [address] Yeni Laureano CRNP [address] [place] [address] 01/02/2025 3:00 PM EDT Office Visit Family Practice [facility] [address] [facility] [place] [address] Chad Phoenix, DO [address] [facility] [place] [address] 04/30/2025 3:00 PM EDT Office Visit Pulmonary Medicine, [facility] [address] [place] [address] Krunal Sherwood MD [address] [place] [address] Health Maintenance Due Date Last Done Comments [...] Care Agent (per Health Care Power of Clothing Pattern Preparer document) DAVID Pearl Adult Child Second Alternate Health Care Agent (per Health Care Power of Clothing Pattern Preparer document) Care Teams Undercollar Maker Relationship Specialty Start Date End Date Chad Phoenix DO [address] [place] [address] PCP - General Family Medicine 06/02/18 documented as of this encounter
--- OUTSIDE RECORDS SUMMARY | 2024-07-17 15:45 | External Medical Summary | Summary of Care ---
Author Name Unknown Organization [facility] Address [address] [place] [address] Phone [phone] Care Team Providers Care Yoghurt Maker Name Role Phone Chad Phoenix DO Primary Care Provider [phone] Reason for Visit * Reason Onset Date Comments Immunizations 06/05/2024 Shingrix Follow Up Encounter Details Date Type Department Care Team (Late st Contact Info) Description 06/05/2024 2:00 PM EDT Office Visit [facility] [address] [place] [address] Chad Phoenix DO [address] [place] [address] Type 2 diabetes mellitus with stage 3 chronic kidney disease, without long-term current use of insulin, unspecified whether stage 3a or 3b CKD (HCC)*; Need for vaccination for zoster; DYSLIPIDEMIA, GOAL LDL BELOW 100; Paroxysmal atrial fibrillation (HCC); Type 2 diabetes mellitus with hemoglobin A1c goal of less than 8.0% (HCC); Heart failure, diastolic, due to HTN (HCC); Hypertensive heart and kidney disease with chronic diastolic congestive heart failure and stage 3b chronic kidney disease (HCC) Allergies Active Allergy Reactions Criticality Noted Date Comments Glipizide 02/18/2021 Dizzy, confusion Latex Rash 04/05/2024 Penicillins Rash 10/13/2001 documented as of this encounter (statuses as of 06/05/2024) Medications Medication Sig Dispensed Refills Start Date End Date Status NEBULIZER MISCIndications:Acu te bronchitis, complicated use every 8 hrs as directed 1 Units 0 03/19/2011 Active SPACER/AERO CHAMBER MOUTHPIECE MISCIndications:Kathrin rtness of [...] ons:COPD, group B, by GOLD 2017 classification ([facility]) Inhale 1 Vial via nebulizer [...] 3 01/26/2024 Active Januvia 50 MG Oral TabletIndications:T ype [...] 05/24/2024 Active Furosemide 40 MG Oral Tablet (Lasix)Indications: [...] 180 days 1 Each 1 06/05/2024 Active MAGNESIUM OXIDE 400 MG PO TABS one tablet by mouth twice daily 10/13/2014 06/05/20 24 Discontinu ed(Refill) Isosorbide Mononitrate ER 30 MG Oral Tablet Extended Release 24 Hour (Imdur) TAKE 1 TABLET BY MOUTH EVERY MORNING 90 Tablet 1 04/25/2024 06/05/20 24 Discontinu ed(Refill) documented as of this encounter (statuses as of 06/05/2024) Active Problems Problem Noted Date Diagnosed Date [...] mitral regurgitation by prior echocardi ogram 10/18/2017 manager intermediate 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 therapy 0 10/18/2017 [...] as of this encounter (statuses as of 06/05/2024) Resolved Problems Problem Noted Date Diagnosed Date Resolved Date 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 04/18/2019 10/29/2019 COPD, [...] 08/29/2018 Overview: Per CKD protocol #1 intermediate current use of 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 therapy 03/05/2011 [...] as of this encounter (statuses as of 06/05/2024) Immunizations Name Administration Dates Next Due COVID-19 [...] Sign Reading Time Taken Comments Blood Pressure 122/58 06/05/2024 2:02 PM EDT Pulse - - Temperature 37.1 C (98.8 F) 06/05/2024 2:02 PM ED T Respiratory Rate - - Oxygen Saturation - - Inhaled Oxygen Concentration - - Weight 79.8 kg (176 lb) 06/05/2024 2:02 PM EDT Height 147.3 cm (4' 9.99") 06/05/2024 2:02 PM ED T Body Mass Index 36.79 06/05/2024 2:02 PM EDT documented in this encounter Patient Instructions * Patient Instructions* Nadya Pitt CMA - 06/05/2024 2:08 PM EDT Diabetes: Keeping Feet Healthy Inspect your feet every day for signs of a problem. Diabetes can damage nerves in your feet and cause neuropathy. This condition makes it hard for you to feel injuries or sore spots. Diabetes can also change blood flow, making it harder for small problems, like a blister, to heal properly. In fact, minor injuries can quickly become serious infections that send you to the hospital. Practice self-care to protect your feet and keep them healthy. Take Special Care Inspect your feet daily for problems such as redness, blisters, cracks, dry skin, or numbness. Use a mirror to see the bottoms of your feet. Or, ask for help. Manage your diabetes. Monitor and control your blood sugar. Take all your medications as prescribed. Avoid walking barefoot, even indoors. Wash your feet with warm water and mild soap. Dry well, especially between toes. Dont treat corns or calluses yourself. Talk to your doctor or metal alloy scientist (a doctor who specializes in foot care) if you need assistance trimming your toenails. Use moisturizing cream or lotion if you have dry skin, but dont use it between toes. Dont use heating pads on your feet. If you have neuropathy, you could get a burn and not feel it. Stop smoking. Smoking restricts blood flow and can make it harder for wounds to heal. Have Regular Checkups Foot problems can develop quickly. So be sure to follow your healthcare teams schedule for regular checkups. During office visits, take off your shoes and socks as soon as you get in the exam room. Ask your healthcare provider to examine your feet for problems. This will make it easier to find and treat small skin irritations before they get worse. Regular checkups can also help keep track of the blood flow and feeling in your feet. If you have neuropathy, you may need to have checkups more often. Wear Proper Footwear Wearing proper footwear is very important. If areas of your feet have been damaged by too much pressure, your healthcare provider may recommend changing your footwear. In some cases, avoiding high heels or tight work boots may be all thats needed. Or, your healthcare provider may recommend special shoes or custom inserts. These help protect your feet and keep existing irritations from getting worse. If you need special footwear, ask your healthcare provider if you qualify for [employer] diabetic shoe program. Make Sure Shoes and Socks Fit Any pair of shoes--new or old--should feel comfortable as soon as you put them on. There shouldnt be any rubbing when you walk. Wear the right shoe for any activity. For instance, a running shoe is designed to keep your feet injury-free while jogging. Buy shoes at the end of the day, when your feet are larger. Make sure they provide support without feeling too loose. Make sure your socks fit, t oo. Wear soft, seamless, well-padded socks for activity. Cotton or microfiber socks are best to help to absorb sweat. To protect your feet, avoid shoes that are open-toed or open-heeled. If you have questions about what kinds of shoes and socks are best, talk to your healthcare team. Get Regular Exercise Regular exercise improves blood flow in your feet. It also increases foot strength and flexibility.Gentle exercises, like walking or riding a stationary bicycle, are best. You can also do special foot exercises. Just be sure to talk with your healthcare provider before starting any exercise program. Also mention if any exercise causes pain, redness, or other signs of foot problems. Note: If you have any kind of break in the skin of your foot or ankle, keep the area clean. Then call your doctor--especially if the area doesnt appear to be healing. [id number] [employer], [address] [place] [address]. All rights reserved. This information is not intended as a substitute for professional medical care. Always follow your healthcare professional's instructions. ~~PATIENT INSTRUCTIONS FOR SHINGRIX VACCINE~~ Possible side effects of Shingrix vaccine, (shingles), are usually mild and can include: 1. Soreness or redness at injection site 2. Low grade fever 3. Body aches You may use a fever / pain reducing medication as needed for these symptoms. LET YOUR DOCTOR KNOW IMMEDIATELY IF YOU HAVE DIFFICULTY BREATHING OR SWALLOWING, EXPERIENCE ITCHINGOF FEET OR HANDS, HAVE SWELLING OF EYES, FACE OR INSIDE OF NOSE. documented in this encounter Progress Notes * Chad Phoenix DO - 06/05/2024 2:18 PM EDT Subjective: Tori May is a 89 year old female. Chief Complaint Patient presents with Immunizations Shingrix Follow Up HPI: Pt here in follow-up. We checked a skin tag but she says it doesn't bother her. Breathing has been okay. She takes Magnesium twice per day. She has been having accidents if she doesn't get to the bathroomquickly. Thye cut back on her Imdur. No CP. Or SOB. She has some discharge from her eyes today No crusting in the morning. PMHx, meds, and allergies reviewed Patient Active Problem List Diagnosis ADVANCE DIRECTIVE INFORMATION DYSLIPIDEMIA, GOAL LDL BELOW 100 Atrial fibrillation ([facility]) Anticoagulation management encounter Type 2 diabetes mellitus with hemoglobin A1c goal of less than 8.0% (HCC) Heart failure, diastolic, due to HTN (HCC) Type 2 diabetes mellitus with diabetic chronic kidney disease (HCC) Essential hypertension with goal blood pressure less than 140/90 Cardiac pacemaker in situ Moderate mitral regurgitation by prior echocardiogram manager intermediate 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 therapy Hypertensive heart disease with diastolic heart failure and stage 3 chronic kidney disease (HCC) Acquired hypothyroidism Sensorineural hearing loss (SNHL) of right ear DAIN (obstructive sleep apnea) Pulmonary HTN (HCC) Hypertensive heart and kidney disease with chronic diastolic congestive heart failure and stage 3 chronic kidney disease ([facility]) Hyperparathyroidism, secondary renal (HCC) Paroxysmal atrial fibrillation (HCC) Acute diastolic HF (heart failure) ([facility]) Thrombocytopenia, unspecified (HCC) Type 2 diabetes mellitus with stage 3 chronic kidney disease, without long-term current use of insulin ([facility]) Longstanding persistent atrial fibrillation (HCC) Chronic right-sided heart failure (HCC) Permanent atrial fibrillation ([facility]) Stage 3b chronic kidney disease (HCC) CKD (chronic kidney disease) stage 4, GFR 15-29 ml/min ([facility]) Nocturnal hypoxemia Acute respiratory failure with hypoxia ([facility]) Current Outpatient Medications Medication Sig Dispense Refill MAGNESIUM OXIDE 400 MG PO TABS one tablet by mouth twice daily acetaminophen (TYLENOL) 500 MG Tablet Take 1 Tablet by mouth every 4 hours as needed for Pain. Per [facility] dc summary 06/26/18 Albuterol Sulfate (2.5 MG/3ML) 0.083% Inhalation Nebulization Solution (Proventil) Inhale 1 Vial via nebulizer every 4 hours as needed for Wheezing or Shortness of Breath. 90 mL 3 Levothyroxine Sodium 75 MCG Oral Tablet (Levoxyl) TAKE 1 TABLET BY MOUTH EVERY MORNING AT LEAST 30 MINUTES PRIOR TO BREAKFAST OR OTHER MEDICATIONS 90 Tablet 3 Pantoprazole Sodium 40 MG Oral Tablet Delayed Release (Protonix) TAKE 1 TABLET BY MOUTH ONCE DAILY 90 Tablet 3 dilTIAZem HCl ER 240 MG Oral Capsule Extended Release 24 Hour TAKE 1 CAPSULE BY MOUTH ONCE DAILY 90Capsule 3 Montelukast Sodium 10 MG Oral Tablet (Singulair) TAKE 1 TABLET BY MOUTH EVERY MORNING 90 Tablet 3 Januvia 50 MG Oral Tablet Take 1 Tablet by mouth in the morning. In the morning.. 30 Tablet 5 Metoprolol Succinate ER 100 MG Oral Tablet Extended Release 24 Hour (toPROL XL) TAKE 1 TABLET BY MOUTH TWICE DAILY 180 Tablet 1 Isosorbide Mononitrate ER 30 MG Oral Tablet Extended Release 24 Hour (Imdur) TAKE 1 TABLET BY MOUTHEVERY MORNING (Patient taking differently: Take 0.5 Tablets by mouth in the morning. In the morning..) 90 Tablet 1 Warfarin Sodium 5 MG Oral Tablet (Jantoven) Take 1/2 to 1 tablet by mouth daily as directed by [facility] 90 Tablet 1 Rosuvastatin Calcium 20 MG Oral Tablet (Crestor) TAKE 1 TABLET BY MOUTH ONCE DAILY 90 Tablet 0 Furosemide 40 MG Oral Tablet (Lasix) TAKE ONE TABLET BY MOUTH IN THE MORNING AND ONE TABLET BEFORE BEDTIME 180 Tablet 1 NEBULIZER MISC use every 8 hrs as directed 1 Units 0 SPACER/AERO CHAMBER MOUTHPIECE MISC use with inhalers as instructed 1 Device 2 ONETOUCH ULTRASOFT LANCETS MISC Test up to 4 times daily 5 Box Dosing Unit 10 triamcinolone acetonide (ARISTOCORT) 0.1 % ointment Apply topically to affected area 2 times a day.To affected area on R external ear 60 g 0 OneTouch Verio In Vitro Strip (Glucose Blood) test once daily Dx. E11.9 100 Strip 3 oxygen IN GAS Increase to 3 LPM bled through CPAP with all sleep. T and B medical 1 Each 0 No current facility-administered medications for this visit. Review of patient's allergies indicates: Allergen Reactions Glipizide Dizzy, confusion Latex Rash Penicillins Rash OBJECTIVE: BP 122/58 (BP Site: Left Arm, BP Position: Sitting, BP Cuff Size: Regular) | Temp 37.1 C (98.8 F) | Ht 1.473 m (4' 9.99") | Wt 79.8 kg (176 lb) | BMI 36.79 kg/m | BSA 1.81 m Estimated body mass index is 36.79 kg/m as calculated from the following: Height as of this encounter: 1.473 m (4' 9.99"). Weight as of this encounter: 79.8 kg (176 lb). BP Readings from Last 3 Encounters: 06/05/24 122/58 05/04/24 119/63 04/26/24 100/48 Wt Readings from Last 3 Encounters: 06/05/24 79.8 kg (176 lb) 05/04/24 82.1 kg (180 lb 14.4 oz) 04/26/24 80.3 kg (177 lb) ROS: Negative except for above PHYSICAL EXAM: General: alert, healthy, and no distress Head: Normocephalic, No masses, lesions, tenderness or abnormalities Heart: regular rate & rhythm, no murmur, and no gallops Lungs: chest symmetric with normal AP diameter, no chest deformities noted, no chest wall tenderness, lungs clear to auscultation Extremities: less than 2 second capillary refill, and trace edema ASSESSMENT/Plan Type 2 diabetes mellitus with stage 3 chronic kidney disease, without long-term current use of insulin ([facility]) (Primary) - DIABETES FOOT EXAM - HEMOGLOBIN A1C; Future; Expected date: 12/06/2024 - BASIC METABOLIC PANEL; Future; Expected date: 12/06/2024 Need for vaccination for zoster - ZOSTER VACCINE RECOMB, 2 DOSE, IM (SHINGRIX) DYSLIPIDEMIA, GOAL LDL BELOW 100 Paroxysmal atrial fibrillation ([facility]) Type 2 diabetes mellitus with hemoglobin A1c goal of less than 8.0% ([facility]) Heart failure, diastolic, due to HTN ([facility]) Hypertensive heart and kidney disease with chronic diastolic congestive heart failure and stage 3b chronic kidney disease ([facility]) Other orders - Isosorbide Mononitrate ER 30 MG Oral Tablet Extended Release 24 Hour (Imdur); Take 0.5 Tablets bymouth in the morning. In the morning.. - Zoster Vac Recomb Adjuvanted 50 MCG/0.5ML Intramuscular Suspension Reconstituted (Shingrix); Inject 0.5 mL into a large muscle now and repeat dose in 60 to 180 days I spent a total of 30 minutes on the date of service in preparation, delivery, and documentation ofthe care provided to this patient, excluding any time spent on the performance of any procedure or separately billable services. Tori has really been doing well for awhile now. Good discussion on meds and shingrix. The above was discussed and understanding was expressed. Chad Phoenix DO * Nadya Pitt CMA - 06/05/2024 2:08 PM EDT Socks and Shoes Removed for Annual Diabetic Foot Screening RIGHT FOOT: Area of Concern: pinky toe, red/purple. She denies pain or injury . RIGHT Dorsalis Pedis Pulse: Palpable RIGHT Posterior Tibial Pulse: Palpable RIGHT Monofilament:Patient reports feeling monofilament pressure on plantar surface of foot LEFT FOOT: No Reddened, Cracking or Open Areas Noted. LEFT Dorsalis Pedis Pulse: Palpable LEFT Posterior Tibial Pulse: Palpable LEFT Monofilament:Patient reports feeling monofilament pressure on plantar surface of foot Do you need diabetic shoes: No DM Foot Exam completed today. Provider aware. Nadya Pitt CMA Does the patient have active shingles? No If, yes, patient must wait to receive vaccine till after rash is gone. Does the patient have an illness today with a fever more than 101?F? No Has the patient ever had a serious allergic reaction after receiving a vaccination? No Has the patient had a blood test showing they are not immune to Chicken Pox (rare)? No If yes, should get Chicken pox vaccine instead of shingrix. Verified patient has prescription/drug coverage. Patient has been informed that [employer] copays are close to $0. In most cases copays will be around $10. The maximum co-pay patients may get could as high as $200. yes Shingrix Vaccine Information Sheet has been provided. Nadya Pitt CMA 06/05/2024 2:13 PM IMMUNIZATION ADMINISTRATION DOCUMENTATION Time Out Procedure Performed: Yes Patient Identified (Ask Name/Date of ): Yes Patient allergic to latex?No, Yes VFC Stock? No Immunization(s) verified: Yes, Immunization Name: Shingrix, VIS Sheet(s) given: Yes Verified Side and Site: Yes Verified Shot(s) with Parent(s)/Patient: Yes Shingrix was administered per clinic protocol. Patient received the Shingrix VIS (Vaccine Information Sheet). Nadya Pitt CMA, 06/05/2024, 2:13 PM documented in this encounter Nursing Notes * Nadya Pitt CMA - 06/05/2024 2:00 PM EDT Tori May presents for annual physical exam. Medications & HM reviewed. States she has askin tag on her back that she would like to have looked at. Also has a few medication questions. documented in this encounter Plan of Treatment Upcoming Encounters Date Type Department Care Team (Late st Contact Info) Description 06/13/2024 2:30 PM EDT PulmDiagnostic Pulmonary Function Lab, [facility] [address] [place] [address] [place], [address] [place] [address] 07/17/2024 3:30 PM EDT Anticoagulation Pharmacy, [facility] [address] [place] [address] Pharmacist1, [facility] [address] [place] [address] 09/18/2024 8:40 AM EST Office Visit Podiatry [facility] [address] [place] [address] Bryanna Guzman DPM [address] [place] [address] 10/15/2024 3:00 PM EST Office Visit Cardiology, [facility] [address] [place] [address] Yeni Laureano CRNP [address] [place] [address] 01/02/2025 3:00 PM EDT Office Visit Family Practice [facility] [address] [place] [address] Chad Phoenix DO [address] [place] [address] 04/30/2025 3:00 PM EDT Office Visit Pulmonary Medicine, [facility] [address] [place] [address] Krunal Sherwood MD [address] [place] [address] Scheduled Orders Name Type Priority Associated Diagnoses Orde r Schedule HEMOGLOBIN A1C Lab Routine Type 2 diabetes mellitus with stage 3 chronic kidney disease, without long-term current use of insulin, unspecified whether stage 3a or 3b CKD (HCC) Expected: 12/06/2024 (Approximate), Expires: 06/05/2025 BASIC METABOLIC PANEL Lab Routine Type 2 diabetes mellitus with stage 3 chronic kidney disease, without long-term current use of insulin, unspecified whether stage 3a or 3b CKD (HCC) Expected: 12/06/2024 (Approximate), Expires: 06/05/2025 Health Maintenance Due Date Last Done Comments [...] Diagnoses Diagnosis Type 2 diabetes mellitus with stage 3 chronic kidney disease, without long-term current use of insulin, unspecified whether stage 3a or 3b CKD (HCC)- Primary Need for vaccination for zoster Need for prophylactic vaccination and inoculation against other viral diseases DYSLIPIDEMIA, GOAL LDL BELOW 100 Other and unspecified hyperlipidemia Paroxysmal atrial fibrillation (HCC) Atrial fibrillation Heart failure, diastolic, due to HTN (HCC) Unspecified hypertensive heart disease with heart failure Hypertensive heart and kidney disease with chronic diastolic congestive heart failure and stage 3b chronic kidney disease (HCC) documented in this encounter Advance Directives * [...] Care Agent (per Health Care Power of Automatic Mounter document) DAVID Pearl Adult Child Second Alternate Health Care Agent (per Health Care Power of Automatic Mounter document) Care Teams Yoghurt Maker Relationship Specialty Start Date End Date Chad Phoenix DO [address] [place] [address] PCP - General Family Medicine 06/02/18 documented as of this encounter
--- OUTSIDE RECORDS SUMMARY | 2024-07-17 15:45 | External Medical Summary | Summary of Care ---
Author Name Unknown Organization [facility] Address [address] [place] [address] Phone [phone] Care Team Providers Care Senior Enterprise Architect Name Role Phone JorgitoChad hager Primary Care Provider [phone] Reason for Visit * Reason Comments Dosage Adjustment In Person (Anticoag Cl inic) Encounter Details Date Type Department Care Team (Latest Contact Info) Description 06/05/2024 1:50 PM EDT Anticoagulation Pharmacy, [facility] [address] [facility] [place] [address] Pharmacist1, [facility] [address] [facility] [place] [address] Anticoagulation management encounter*; Longstanding persistent atrial fibrillation (HCC) Allergies Active Allergy Reactions [...] one tablet by mouth twice daily 10/13/2014 Active ONETOUCH ULTRASOFT LANCETS MISCIndications:DM type [...] B, by GOLD 2017 classification ([facility]) Inhale 1 Vial via nebulizer [...] TWICE DAILY 180 Tablet 1 04/25/2024 Active Isosorbide Mononitrate ER 30 MG Oral Tablet Extended Release 24 Hour (Imdur) TAKE 1 TABLET BY MOUTH EVERY MORNING 90 Tablet 1 04/25/2024 Active Additional Information Patient taking differently: 15 mgOral Daily(AM), In the morning., Reported on 05/04/2024 Warfarin Sodium 5 MG Oral Tablet (Jantoven)Indication s:Persistent atrial fibrillation (HCC) Take 1/2 to 1 tablet by mouth daily as directed by [facility] coumad[facility] clinic 90 Tablet 1 04/25/2024 Active Rosuvastatin Calcium 20 MG Oral Tablet (Crestor) TAKE 1 TABLET BY MOUTH ONCE DAILY 90 Tablet 05/24/2024 Active Furosemide 40 MG Oral Tablet (Lasix)Indications:H eart failure, diastolic, due to HTN (HCC) TAKE ONE TABLET BY MOUTH IN THE MORNING AND ONE TABLET BEFORE BEDTIME 180 Tablet 1 05/24/2024 Active documented as of this encounter (statuses [...] mitral regurgitation by prior echocardi ogram 10/18/2017 [facility] 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 therapy 0 10/18/2017 [...] Resolved Date Coronary artery disease invo lving [place] heart without angina pectoris 04/18/2019 10/29/2019 COPD, [...] 02/28/2012 08/29/2018 Overview: Per CKD protocol #1 [facility] current use of 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 therapy 03/05/2011 [...] as of this encounter Progress Notes * Dorothy Sctot, Pharmacy Chemical Dependency Professional - 06/05/2024 1:20 PM EDT Medication Therapy Disease Management - Anticoagulation Patient: Tori May | : 1935 Subjective Patient-Reported Symptoms: Patient Findings Negatives: Signs/symptoms of thrombosis, Signs/symptoms of bleeding, Change in health, Change in alcohol use, Change in activity, Upcoming invasive procedure, Missed doses, Extra doses, Change in medications, Change in diet/appetite, Bruising Objective Current Warfarin Dose As of 06/05/2024 Warfarin maintenance plan: 2.5 mg (5 mg x 0.5) every Mon; 5 mg (5 mg x 1) all other days INR Result As of 06/05/2024 INR goal: 2.0-3.0 INR used for dosin.2 (06/05/2024) Assessment & Plan Warfarin Plan As of 06/05/2024 Full warfarin instructions: 2.5 mg every Mon; 5 mg all other days No change documented: Dorothy Scott, Pharmacy Chemical Dependency Professional Next INR check: 07/17/2024 Repeat PT/INR in 6 week(s) Weekly dose: not changed Additional Dosing Information: Description Pt takes dose in AM I spent a total of 10-19 minutes (exact time 10 mins) on the date of service in preparation, delivery, and documentation of the care provided to Tori May excluding any time spent in the performance of separately billed services or time spent by another provider/QHP. Dorothy Scott, Pharmacy Chemical Dependency Professional Clinical Pharmacist 06/05/2024, 1:20 PM documented in this encounter Plan of Treatment Upcoming Encounters Date Type Department Care Team (Late st Contact Info) Description 06/05/2024 2:00 PM EDT Office Visit Family Practice [facility] [address] [place] [address] Chad Phoenix, [address] [place] [address] Arrived 06/13/2024 2:30 PM EDT PulmDiagnostic Pulmonary Function Lab, [facility] [address] [place] [address] [address], [address] [place] [address] 07/17/2024 3:30 PM EDT Anticoagulation Pharmacy, [facility] [address] [facility] [place] [address] Pharmacist1, [facility] [address] [facility] [place] [address] 09/18/2024 8:40 AM EST Office Visit Podiatry [facility] [address] [facility] [place] [address] Bryanna Guzman DPM [address] [facility] [place] [address] 10/15/2024 3:00 PM EST Office Visit Cardiology, [facility] [address] [facility] [place] [address] Yeni Laureano CRNP [address] [place] [address] 04/30/2025 3:00 PM EDT Office Visit Pulmonary Medicine, [facility] [address] [facility] [place] [address] Krunal Sherwood MD [address] [place] [address] Health Maintenance Due Date Last Done Comments Zoster Vaccines (1 of 2) 1985 Adult Wellness Visit 04/15/2022 04/15/2021 COVID-19 Vaccine ( season) 2023 09/23/2021, 12/09/2020, 11/11/2020 Diabetic Foot Exam 10/26/2023 10/26/2022, 0 11/24/2021, 02/12/2021, Additional history exists Diabetic Eye Exam 06/06/2024 06/06/2023, , 12/06/2022, Additional history exists Influenza Vaccine (FLU shot) (#1) 2024 09/16/2023, 07/25/2023, 06/30/2022, Additional history exists DTap/Tdap Vaccines (2 - Td or Tdap) [...] Comments INR FINGERSTICK, POINT OF CARE [place] 06/05/2024 1:22 PM EDT documented in this encounter Results * INR FINGERSTICK, POINT OF CARE (06/05/2024 1:22 PM EDT) Fingerstick INR 2.2 INR 1:24 PM EDT [facility] [employer] 56-02 Blood 06/05/2024 1:22 PM EDT 06/05/2024 1:24 PM EDT Narrative [facility] 56-02 - 06/05/2024 1:24 PM EDT Therapeutic ranges for non-operative patients: Prophylaxsis/treatment of DVT: (Range:2.0-3.0) Treatment of pulmonary embolism:(Range:2.0-3.0) Prevention of systemic embolism from: -tissue heart valves -acute myocardial infarction -valvular heart disease -atrial fibrillation (Range: 2.0-3.0) Mechanical prosthetic valves: (Range: 2.5-3.5) [facility] Pharmacist1 LAB POINT OF C ARE TEST DOCKED DEVICE UNSOLICITED RESULTS [facility] 56-02 [address] [place] [address] documented in this encounter Visit Diagnoses Diagnosis Anticoagulation management encounter- Primary Encounter for therapeutic drug monitoring Longstanding persistent atrial fibrillation (HCC) documented in this encounter Advance Directives [...] Agent (per Health Care Power of It Disaster Recovery Manager document) DAVID JojoKHADRA Adult Child Second Alternate Health Care Agent (per Health Care Power of It Disaster Recovery Manager document) Care Teams Senior Enterprise Architect Relationship Specialty Start Date End Date Chad Phoenix DO [facility] [address] PCP - General Family Medicine 06/02/18 documented as of this encounter"
--- OUTSIDE RECORDS SUMMARY | 2024-07-17 15:45 | External Medical Summary | Summary of Care ---
Author Name Unknown Organization [facility] Address [address] [place] [address] Phone [phone] Care Team Providers Care Ram Press Operator Name Role Phone JorgitoChad hager Primary Care Provider [phone] Encounter Details Date Type Department Care Team (Late st Contact Info) Description 06/11/2024 Population Health External Data Unspecified Department Allergies Active Allergy Reactions Criticality Noted Date Comments Glipizide 02/18/2021 Dizzy, confusion Latex Rash 04/05/2024 Penicillins Rash 10/13/2001 documented as of this encounter (statuses as of 06/11/2024) Medications Medication Sig Dispensed Refills Start Date [...] by mouth daily as directed by [facility] coumadin clinic 90 Tablet 1 [...] as of this encounter (statuses as of 06/11/2024) Active Problems Problem Noted Date Diagnosed Date [...] mitral regurgitation by prior echocardi ogram 10/18/2017 nursing home 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 therapy 0 [...] as of this encounter (statuses as of 06/11/2024) Resolved Problems Problem Noted Date Diagnosed Date Resolved Date Coronary artery disease invo lving [place] heart without angina pectoris 04/18/2019 10/29/2019 COPD, [...] as of this encounter (statuses as of 06/11/2024) Immunizations Name Administration Dates Next Due COVID-19 [...] 2:30 PM EDT PulmDiagnostic Pulmonary Function Lab, [facility] [address] [place] [address] [address], [address] [place] [address] 07/17/2024 3:30 PM EDT Anticoagulation Pharmacy, [facility] [address] [place] [address] Pharmacist1, [facility] [address] [place] [address] 09/18/2024 8:40 AM EST Office Visit Podiatry [facility] [address] [place] [address] Bryanna Guzman DPM [address] [place] [address] 10/15/2024 3:00 PM EST Office Visit Cardiology, [facility] [address] [place] [address] Yeni Laureano CRNP [address] [place] [address] 01/02/2025 3:00 PM EDT Office Visit Family Practice [facility] [address] [facility] [place] [address] Chad Phoenix, DO [address] [facility] [place] [address] 04/30/2025 3:00 PM EDT Office Visit Pulmonary Medicine, [facility] [address] [place] [address] Krunal Sherwood MD [address] [place] [address] Health Maintenance Due Date Last Done Comments [...] Care Agent (per Health Care Power of Director Of Cardiopulmonary Services document) DAVID Pearl Adult Child Second Alternate Health Care Agent (per Health Care Power of Director Of Cardiopulmonary Services document) Care Teams Ram Press Operator Relationship Specialty Start Date End Date Chad Phoenix DO [address] [place] [address] PCP - General Family Medicine 06/02/18 documented as of this encounter
--- OUTSIDE RECORDS SUMMARY | 2024-07-17 15:45 | External Medical Summary | Summary of Care ---
Author Name Unknown Organization [facility] Address [address] [facility] [place] [address] Phone [phone] Care Team Providers Care Machine Leather Trimmer Name Role Phone JorgitoChad hager Primary Care Provider [phone] Reason for Visit * Reason Comments Follow Up Encounter Details Date Type Department Care Team (Late st Contact Info) Description 05/15/2024 10:00 AM EDT Office Visit Podiatry [facility] [address] [place] [address] Bryanna Guzman DPM [address] [place] [address] Onychomycosis*; Type 2 diabetes mellitus with hemoglobin A1c goal of less than 8.0% ([facility]); Stage 3 chronic kidney disease, unspecified whether stage 3a or 3b CKD ([facility]); Pain in toes of both feet Allergies Active Allergy Reactions Criticality Noted Date Comments Glipizide 02/18/2021 Dizzy, confusion Latex Rash 04/05/2024 Penicillins Rash 10/13/2001 documented as of this encounter (statuses as of 05/15/2024) Medications Medication Sig Dispensed Refills Start Date [...] ONCE DAILY 90 Tablet 3 10/28/2023 Active Furosemide 40 MG Oral Tablet (Lasix)Indications:H eart failure, diastolic, due to HTN ([facility]) Take one tablet by mouth in the morning and take one tablet by mouth before bedtime 180 Tablet 1 11/10/2023 Active Rosuvastatin Calcium 20 MG Oral Tablet (Crestor) TAKE 1 TABLET BY MOUTH ONCE DAILY 90 Tablet 1 11/10/2023 Active dilTIAZem HCl ER 240 MG Oral [...] directed by [facility] coumadin clinic 90 Tablet 1 04/25/2024 Active documented as of this encounter (statuses as of 05/15/2024) Active Problems Problem Noted Date Diagnosed Date [...] mitral regurgitation by prior echocardi ogram 10/18/2017 remote 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 therapy 0 [...] as of this encounter (statuses as of 05/15/2024) Resolved Problems Problem Noted Date Diagnosed Date Resolved Date Coronary artery disease invo lving [place] heart without angina pectoris 04/18/2019 10/29/2019 COPD, [...] (supraventricular tachycardia) 11/30/19 03 02/13/2019 HYPOTHYROIDISM NOS 11/30/200206/11/ 6 CARDIOVAS SYS SYMP NEC-carotid bruit 11/30/2002 04/13/2017 OBESITY, UNSPECIFIED 11/30/2002 010 Overview: Per Obesity Taxonomy Asthma, allergic 04/02/2010 CPAP (continuous positive ai rway pressure) dependence 03/07/2019 Overview: setting 4 documented as of this encounter (statuses as of 05/15/2024) Immunizations Name Administration Dates Next Due COVID-19 [...] Progress Notes * Bryanna Guzman DPM - 05/15/2024 9:49 AM EDT Podiatry EstablishedPatient Note [employer] Name: Tori May : 1935 Date: 05/15/2024 CHIEF COMPLAINT: Diabetic Nail Care HISTORY OF PRESENT ILLNESS: This patient is a 88 year old female who presents today for diabetic nail care. Pt denies any pain to her feet and states she gets occasional numbness/tingling. She statesher BS is under control, but doesn't check it regularly. She presents today alone. She fears she will cut herself from the thickness of her nails. She denies any other complaints at todays visit. Shedenies any other recent changes in her medical history. Date of last PCP visit: 11/11/2023 Past Medical History: Diagnosis Date Asthma, allergic Atrial fibrillation (HCC) 03/05/2011 Cardiac pacemaker in situ 06/23/2017 CARDIOVAS SYS SYMP NEC-carotid bruit 11/30/2002 CPAP (continuous positive airway pressure) dependence setting 4 DM type 2, goal A1C 7-8 03/04/2014 Dyslipidemia, goal LDL below 160 Gastric ulcer Heart failure, diastolic, due to HTN ([facility]) 12/30/2014 Hypertensive heart disease with diastolic heart failure and stage 3 chronic kidney disease (HCC) 05/16/2018 Hypothyroidism clinically euthyroid KIDNEY DISEASE, CHRONIC, STAGE III (GFR 30-59 ML/MIN) 02/28/2012 Per CKD protocol #1 remote 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 therapy 10/18/2017 ICD-10 update of inactive term Moderate mitral regurgitation by prior echocardiogram 10/18/2017 Obesity, BMI not known 11/30/2002 Paroxysmal SVT (supraventricular tachycardia) (HCC) 11/30/2002 Paroxysmal SVT (supraventricular tachycardia) (HCC) 11/30/2002 Tachycardia associated with angina Past Surgical History: Procedure Laterality Date ABLATE HEART DYSRHYTHM FOCUS 03/27/2010 CATHETER ABLATION-SVT performed by NATASHA NAM at [facility] ARTHROPLASTY KNEE TOTAL B/LTKR (Total Knee Replacement) COLONOSCOPY, DIAGNOSTIC (RECTUM) 10/07/2020 Multiple proximal colon AVM's, diverticulosis / [facility] EGD, FLEXIBLE, DIAGNOSTIC 10/07/2020 benign gastric polyp, hiatal hernia / [facility] EGD, W/ENDOSCOPIC US N/A 02/21/2015 serous pancreatic cyst. fatty liver/ESOPHAGOGASTRODUODENOSCOPY (EGD), FLEXIBLE, TRANSORAL, ENDOSCOPIC ULTRASOUND performed by Larry Daugherty DO at OR [facility] BRONCHOSCOPY TRANSBRONCHIAL NEEDLE ASPIRATION BIOPSY WNL HEMILAMINECTOMY, [...] Dr. Linda Daugherty Family History Problem Relation Name Age of Onset Mental Disorder Mother dementia [...] on R external ear 60 g 0 [employer] Verio In Vitro Strip (Glucose Blood) test once daily Dx. E11.9 100 Strip 3 Albuterol Sulfate (2.5 MG/3ML) 0.083% Inhalation Nebulization Solution (Proventil) Inhale 1 Vial via nebulizer every 4 hours as needed for Wheezing or Shortness of Breath. 90 mL 3 oxygen IN GAS Increase to 3 LPM bled through CPAP with all sleep. T and B medical 1 Each 0 Levothyroxine Sodium 75 MCG Oral Tablet (Levoxyl) TAKE 1 TABLET BY MOUTH EVERY MORNING AT LEAST 30 MINUTES PRIOR TO BREAKFAST OR OTHER MEDICATIONS 90 Tablet 3 Pantoprazole Sodium 40 MG Oral Tablet Delayed Release (Protonix) TAKE 1 TABLET BY MOUTH ONCE DAILY 90 Tablet 3 Furosemide 40 MG Oral Tablet (Lasix) Take one tablet by mouth in the morning and take one tablet bymouth before bedtime 180 Tablet 1 Rosuvastatin Calcium 20 MG Oral Tablet (Crestor) TAKE 1 TABLET BY MOUTH ONCE DAILY 90 Tablet 1 dilTIAZem HCl ER 240 MG Oral Capsule [...] directed by [facility] coumadin clinic 90 Tablet 1 No current facility-administered medications for this visit. ALLERGIES: Review of patient's allergies indicates: Allergen Reactions Glipizide Dizzy, confusion Latex Rash Penicillins Rash REVIEW OF SYSTEMS: CONSTITUTIONAL: No [...] documented in this encounter Nursing Notes * Samantha Monet LPN - 05/15/2024 9:40 AM EDT Patient was instructed to not get up on the exam table/exam chair until directed and assisted by their provider; patient is to remain seated in the chair/ wheelchair/ exam table/ exam chair for fall prevention and safety reasons. Patient is aware to have assistance to step down off exam table/exam chair with personnel. Patient voiced full comprehension of instructions. Pt here for routine nail care. Diabetic documented in this encounter Plan of Treatment Upcoming Encounters Date Type Department Care Team (Late st Contact Info) Description 06/05/2024 1:50 PM EDT Anticoagulation Pharmacy, [facility] [address] [facility] [place] [address] Pharmacist1, [facility] [address] [facility] [place] [address] 06/05/2024 2:00 PM EDT Office Visit Family Practice [facility] [address] [facility] [place] [address] Chad Phoenix, DO [address] [facility] [place] [address] 06/13/2024 2:30 PM EDT PulmDiagnostic Pulmonary Function Lab, [facility] [address] [facility] [place] [address] [place], [address] [facility] [place] [address] 09/18/2024 8:40 AM EST Office Visit Podiatry [facility] [address] [facility] [place], [place] [address] Bryanna Guzman DPM [address] [facility] [place] [address] 10/15/2024 3:00 PM EST Office Visit Cardiology, [facility] [address] [facility] [place] [address] Yeni Laureano CRNP [address] [place] [address] 04/30/2025 3:00 PM EDT Office Visit Pulmonary Medicine, [facility] 132 [facility] [place], [place] [address] Krunal Sherwood MD [address] [facility] [place] [address] Health Maintenance Due Date Last Done Comments [...] of nail Type 2 diabetes mellitus with hemoglobin A1c goal of less than 8.0% (HCC) Stage 3 chronic kidney disease, unspecified whether stage 3a or 3b CKD (HCC) Pain in toes of both feet documented in this encounter Advance Directives * [...] Care Agent (per Health Care Power of Bacteriology Professor document) DAVID CelestinoSUSANNE Adult Child Second Alternate Health Care Agent (per Health Care Power of Bacteriology Professor document) Care Teams Machine Leather Trimmer Relationship Specialty Start Date End Date Chad Phoenix DO [address] [place] [address] PCP - General Family Medicine 06/02/18 documented as of this encounter
--- OUTSIDE RECORDS SUMMARY | 2024-07-17 15:46 | External Medical Summary ---
Author Name Unknown Address Unknown Organization [id number]:[facility] [place] [address] [place] [address] Laboratory Report Ordering Provider Test Date Status ROXANNE VAZQUEZ 05/04/2024 15:28:20 Final Normal: <150 mg/ g creatinine
High: 150-500 mg/g creatinine
Very High: >500 mg/g creatinine
Nephrotic: >3000 mg/g creatinine Observation Date Value Abnormality Reference (Units ) Status Protein/Creatinine [Ratio] in Urine 05/04/2024 15:28:20 143 <150 (mg/g ) Final Protein, Urine 05/04/2024 15:28:20 9 (mg/dL) Final Creatinine, Urine 05/04/2024 15:28:20 63 (mg/dL) Final Performing Location [facility] [place] [address] [place] [address]
--- OUTSIDE RECORDS SUMMARY | 2024-07-17 15:46 | External Medical Summary ---
Author Name Unknown Address Unknown Organization [id number]:[facility] [place] [address] Laboratory Report Ordering Provider Test Date Status ROXANNE VAZQUEZ 05/04/2024 15:28:20 Final Observation Date Value Abnormality Reference (Units ) Status WBC, Total 05/04/2024 15:28:20 5.72 4.00-10.8 0 (K/uL) Final RBC 05/04/2024 15:28:20 3.68 3.85-5.15 (M/uL) Final Hemoglobin 05/04/2024 15:28:20 10.9 Below low normal 12 .0-15.3 (g/dL) Final HCT 05/04/2024 15:28:20 33.9 Below low normal 36. 0-45.2 (%) Final MCV 05/04/2024 15:28:20 92.1 81.5-97.5 (fL) Final MCH 05/04/2024 15:28:20 29.6 27.0-34.0 (pg) Final MCHC 05/04/2024 15:28:20 32.2 32.0-36.0 (g/dL) Final RDW 05/04/2024 15:28:20 16.3 11.5-15.5 (%) Final Platelets 05/04/2024 15:28:20 211 140-400 (K /uL) Final MPV 05/04/2024 15:28:20 10.4 6.6-11.1 ( fL) Final Performing Location [facility] [place] [address]
--- OUTSIDE RECORDS SUMMARY | 2024-07-17 15:46 | External Medical Summary ---
Author Name Unknown Address Unknown Organization [id number]:[facility] [place] [address] [place] [address] Laboratory Report Ordering Provider Test Date Status ROXANNE VAZQUEZ 05/04/2024 15:28:20 Final Deficient: <20 ng/mL
Ins ufficient: 20-29 ng/mL
Recommended/Optimum:30-50 ng/mL

Vitamin D intoxication is rare. If suspicious of Vitamin D toxicity, evaluation of serum Calcium and PTH is recommended. Observation Date Value Abnormality Reference (Units ) Status 25-OH Vitamin D total 05/04/2024 15:28:20 38 >19 (ng/mL) Final Performing Location LABORATORY [facility] - [address] [place] [address]
--- OUTSIDE RECORDS SUMMARY | 2024-07-17 15:46 | External Medical Summary ---
Author Name Unknown Address Unknown Organization [id number]:[facility] [place] - [address] [facility] [place] [address] Laboratory Report Ordering Provider Test Date Status NICHOLAS BECKER 05/04/2024 15:28:20 Final Observation Date Value Abnormality Reference (Units ) Status Triglyceride 05/04/2024 15:28:20 125 <=174 ( mg/dL) Final Triglyceride Reference Range s (mg/dL):
<150 Acceptable
150-174 Borderline high
175-499 High
>=500 Very high Cholesterol 05/04/2024 15:28:20 122 <200 (mg /dL) Final Total Cholesterol Reference Ranges (mg/dL):
<200 Desirable
200-239 Borderline high
>=240 High HDL 05/04/2024 15:28:20 65 >49 (mg/dL ) Final HDL Cholesterol Reference Ra nges (mg/dL):
>=60 High (Desirable)
<50 Low (Undesirable) For Females
<40 Low (Undesirable) For Males NON-HDL CHOLESTEROL 05/04/2024 15:28:20 57 <=159 (mg/dL) Final Non-HDL Cholesterol Referenc e Range (mg/dL):
<100 Target level for high risk ASCVD patient
<130 Optimal for general population
130-159 Near optimal for general population
160-189 Borderline High
190-219 High
>=220 Very High LDL, (calculated) 05/04/2024 15:28:20 32 <= 129 (mg/dL) Final LDL Cholesterol Reference Ra nges (mg/dL):
<70 Target level for high risk ASCVD patient
<100 Optimal for general population
100-129 Near optimal for general population
130-159 Borderline high
160-189 High
>=190 Very high Performing Location [facility] [place] - [address] [place] [address]
--- OUTSIDE RECORDS SUMMARY | 2024-07-17 15:46 | External Medical Summary ---
Author Name Unknown Address Unknown Organization [id number]:[facility] [place] [facility] [place] [facility] [address] [facility] [address] [place] [address] Laboratory Report Ordering Provider Test Date Status NICHOLAS BECKER 05/04/2024 15:28:20 Final Normal: <30 mg/g creatinine< br/>High: 30-300 mg/g creatinine
Very High: >300 mg/g creatinine
Nephrotic: >2200 mg/g creatinine Observation Date Value Abnormality Reference (Units ) Status Albumin, Urine 05/04/2024 15:28:20 1.61 (mg/dL) Final Creatinine, Urine 05/04/2024 15:28:20 62 (mg/dL) Final Albumin/Creatinine [Mass Ratio] in Urine 05/04/2024 15:28:20 26 <30 (mg/g Creat) Final Performing Location [facility] [place] [address] [place] [address]
--- OUTSIDE RECORDS SUMMARY | 2024-07-17 15:46 | External Medical Summary ---
Author Name Unknown Address Unknown Organization [id number]:[facility] - [address] [facility] [address] Laboratory Report Ordering Provider Test Date Status KALPESH DONG 05/04/2024 15:28:20 Final Observation Date Value Abnormality Reference (Units ) Status TSH 05/04/2024 15:28:20 4.61 Above high normal 0. 27-4.20 (uIU/mL) Final Performing Location [facility] - [address] [place] [address]
--- OUTSIDE RECORDS SUMMARY | 2024-07-17 15:46 | External Medical Summary | Summary of Care ---
Author Name Unknown Organization [facility] Address [address] [facility] [place] [address] Phone [phone] Care Team Providers Care As400 Operator Name Role Phone Bruce Phoenixe Jorge Luis GAMEZ Primary Care Provider [phone] Reason for Visit * Reason Comments Outpatient Testing Encounter Details Date Type Department Care Team (Late st Contact Info) Description 05/04/2024 3:20 PM EDT Laboratory Laboratory [facility] [address] [place] [id number] [place], Lab [facility] [address] [place] [address] Encounter for long-term (current) use of medications; Physical exam, routine; CKD (chronic kidney disease) stage 4, GFR 15-29 ml/min (HCC); Acquired hypothyroidism; Type 2 diabetes mellitus with stage 3 chronic kidney disease, without long-term current use of insulin, unspecified whether stage 3a or 3b CKD (HCC); Permanent atrial fibrillation (HCC); Paroxysmal atrial fibrillation (HCC); Anticoagulation management encounter; Cramps of lower extremity; Stage 3b chronic kidney disease (HCC) Allergies Active Allergy Reactions Criticality Noted Date Comments Glipizide 02/18/2021 Dizzy, confusion Latex Rash 04/05/2024 Penicillins Rash 10/13/2001 documented as of this encounter (statuses as of 05/04/2024) Medications Medication Sig Dispensed Refills Start Date [...] ([facility]) Take one tablet by mouth in the [...] mouth daily as directed by [facility] 90 Tablet 1 04/25/2024 Active documented as of this encounter (statuses as of 05/04/2024) Active Problems Problem Noted Date Diagnosed Date [...] mitral regurgitation by prior echocardi ogram 10/18/2017 technician terminal and repeater 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 therapy 0 10/18/2017 [...] as of this encounter (statuses as of 05/04/2024) Resolved Problems Problem Noted Date Diagnosed Date Resolved Date Coronary artery disease invo lving ely [place] heart without angina pectoris 04/18/2019 10/29/2019 COPD, [...] 02/28/2012 08/29/2018 Overview: Per CKD protocol #1 technician terminal and repeater current use of 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 therapy 03/05/2011 [...] as of this encounter (statuses as of 05/04/2024) Immunizations Name Administration Dates Next Due COVID-19 [...] 05/15/2024 10:00 AM EDT Office Visit Podiatry [facility] [address] [place] [address] Bryanna Guzman, GIBRAN [address] [place] [address] 06/05/2024 1:50 PM EDT Anticoagulation Pharmacy, [facility] [address] [place] [address] Pharmacist1, [facility] [address] [facility] [place] [address] 06/05/2024 2:00 PM EDT Office Visit Family Practice [facility] [address] [facility] [place] [address] Chad Phoenix, DO [address] [facility] [place] [address] 06/13/2024 2:30 PM EDT PulmDiagnostic Pulmonary Function Lab, [facility] [address] [place] [address] [address], [address] [place] [address] 10/15/2024 3:00 PM EST Office Visit Cardiology, [facility] [address] [place] [address] Yeni Laureano CRNP [address] [place] [address] 04/30/2025 3:00 PM EDT Office Visit Pulmonary Medicine, [facility] [place] [address] Krunal Sherwood MD [address] [place] [phone] Pending Results Name Type Priority Associated Diagnoses Date /Time LIPID PANEL WITH DIRECT LDL IF TG IS HIGH Lab Routine Encounter for long-term (current) use of medications 05/04/2024 3:28 PM EDT ALBUMIN / CREATININE RATIO, URINE Lab Routine Physical exam, routine 05/04/2024 3:28 PM EDT COMPREHENSIVE METABOLIC PANEL Lab Routine CKD (chronic kidney disease) stage 4, GFR 15-29 ml/min ([facility]) 05/04/2024 3:28 PM EDT TSH WITH FREE T4 IF INDICATED Lab Routine Acquired hypothyroidism 05/04/2024 3:28 PM EDT HEMOGLOBIN A1C Lab Routine Type 2 diabetes mellitus with stage 3 chronic kidney disease, without long-term current use of insulin, unspecified whether stage 3a or 3b CKD (HCC) 05/04/2024 3:28 PM EDT PT INR Lab Routine Permanent atrial fibrillation (HCC) Paroxysmal atrial fibrillation (HCC) Anticoagulation management encounter 05/04/2024 3:28 PM EDT MAGNESIUM Lab Routine Cramps of lower extremity 05/04/2024 3:28 PM EDT CBC WITH WBC DIFFERENTIAL Lab Routine Stage 3b chronic kidney disease (HCC) 05/04/2024 3:28 PM EDT PTH Lab Routine Stage 3b chronic kidney disease (HCC) 05/04/2024 3:28 PM EDT PROTEIN/ CREATININE RATIO, URINE Lab Routine Stage 3b chronic kidney disease (HCC) 05/04/2024 3:28 PM EDT URINALYSIS WITH MICROSCOPIC EXAM Lab Routine Stage 3b chronic kidney disease (HCC) 05/04/2024 3:28 PM EDT 25-HYDROXY VITAMIN D Lab Routine Stage 3b chronic kidney disease (HCC) 05/04/2024 3:28 PM EDT CBC Lab Routine Stage 3b chronic kidney disease (HCC) 05/04/2024 3:28 PM EDT DIFFERENTIAL, AUTOMATED Lab Routine Stage 3b chronic kidney disease (HCC) 05/04/2024 3:28 PM EDT PHOSPHORUS Lab Routine Stage 3b chronic kidney disease (HCC) 05/04/2024 3:28 PM EDT Health Maintenance Due Date Last Done Comments Zoster Vaccines (1 of 2) 1985 COVID-19 Vaccine ( season) 2023 09/23/2021, 12/09/2020, 11/11/2020 Albumin/Creatinine Ratio 10/26/2023 023, 12/08/2021, 02/26/2019, Additional history exists Diabetic Foot Exam 10/26/2023 10/26/2022, 0 11/24/2021, 02/12/2021, Additional history exists TSH 04/05/2024 04/05/2023, 07/0 03/2022, 04/08/2022, Additional history exists HbA1c 04/10/2024 10/11/2023, 03/11, 10/20/2022, Additional history exists Diabetic Eye Exam 06/06/2024 06/06/2023, , 12/06/2022, Additional history exists Influenza Vaccine (FLU shot) (#1) 2024 09/16/2023, 07/25/2023, 06/30/2022, Additional history exists DTaP,Tdap,and Td Vaccines (2 - Td or Tdap) 09/02/2024 09/02/2014 Depression Screening 09/21/2024 09/21/2023 Pneumococcal Vaccine: 65+ Years Completed 12/17/2015, 02/16/2010 [...] for long-term (current) use of other medications Physical exam, routine Routine general medical examination at a health care facility CKD (chronic kidney disease) stage 4, GFR 15-29 ml/min (HCC) Chronic kidney disease, Stage IV (severe) Acquired hypothyroidism Unspecified hypothyroidism Type 2 diabetes mellitus with stage 3 chronic kidney disease, without long-term current use of insulin, unspecified whether stage 3a or 3b CKD (HCC) Permanent atrial fibrillation (HCC) Atrial fibrillation Paroxysmal atrial fibrillation (HCC) Atrial fibrillation Anticoagulation management encounter Encounter for therapeutic drug monitoring Cramps of lower extremity Stage 3b chronic kidney disease (HCC) documented in [...] Care Agent (per Health Care Power of City Wellness Coordinator document) DAVID Ryanne Adult Child Second Alternate Health Care Agent (per Health Care Power of City Wellness Coordinator document) Care Teams As400 Operator Relationship Specialty Start Date End Date Chad Phoenix DO [facility] [place] [address] PCP - General Family Medicine 06/02/18 documented as of this encounter
--- OUTSIDE RECORDS SUMMARY | 2024-07-17 15:46 | External Medical Summary ---
Author Name Unknown Address Unknown Organization K01:[facility] - [address] [facility] [place] [address] Laboratory Report Ordering Provider Test Date Status ROXANNE VAZQUEZ 05/04/2024 15:28:20 Final Observation Date Value Abnormality Reference (Units ) Status Color of Urine by Auto 05/04/2024 15:28:20 Light Yellow Colorless, Light Yellow, Yellow, Dark Yellow Final Clarity, Urine 05/04/2024 15:28:20 Clear Clear Final Glucose [Mass/volume] in Urine by Automated test strip 05/04/2024 15:28:20 Negative Negative (mg/dL) Final Bilirubin.total [Presence] in Urine by Automated test strip 05/04/2024 15:28:20 Negative Negative Final Ketones [Mass/volume] in Urine by Automated test strip 05/04/2024 15:28:20 Negative Negative (mg/dL) Final Specific gravity, Urine 05/04/2024 15:28:20 1.011 1.003-1.030 Final Hemoglobin [Presence] in Urine by Automated test strip 05/04/2024 15:28:20 Negative Negative Final pH, Urine 05/04/2024 15:28:20 6.5 5.0-7.5 (Units) Final Protein [Mass/volume] in Urine by Automated test strip 05/04/2024 15:28:20 Negative Negative (mg/dL) Final Urobilinogen [Mass/volume] in Urine by Automated test strip 05/04/2024 15:28:20 Normal Normal (mg/dL) Final Nitrite [Presence] in Urine by Automated test strip 05/04/2024 15:28:20 Negative Negative Final Leukocyte esterase [Presence] in Urine by Automated test strip 05/04/2024 15:28:20 Negative Negative Final RBC, Urine 05/04/2024 15:28:20 0-2 0-2 (/HPF) Final WBC, Urine 05/04/2024 15:28:20 0-2 0-2 (/HPF) Final Bacteria [#/area] in Urine sediment by Microscopy high power field 05/04/2024 15:28:20 0-25 0-25 (/HPF) Final Performing Location LAB[facility]ATORY [facility] - [facility] [address] [place] [facility] [address]
--- OUTSIDE RECORDS SUMMARY | 2024-07-17 15:46 | External Medical Summary ---
Author Name Unknown Address Unknown Organization K09:[facility] [place] [address] Laboratory Report Ordering Provider Test Date Status KALPESH DONG 05/04/2024 15:28:20 Final Observation Date Value Abnormality Reference (Units ) Status Magnesium 05/04/2024 15:28:20 2.2 1.5-2.6 (m g/dL) Final Performing Location [facility] [place] [address]
--- OUTSIDE RECORDS SUMMARY | 2024-07-17 15:46 | External Medical Summary ---
Author Name Unknown Address Unknown Organization K09:[facility] [place] [address] Laboratory Report Ordering Provider Test Date Status ROXANNE VAZQUEZ 05/04/2024 15:28:20 Final Observation Date Value Abnormality Reference (Units ) Status Phosphate 05/04/2024 15:28:20 3.7 2.5-4.8 (m g/dL) Final Performing Location [facility] [place] [address]
--- OUTSIDE RECORDS SUMMARY | 2024-07-17 15:46 | External Medical Summary | Summary of Care ---
Author Name Unknown Organization [facility] Address [address] [place] [address] Phone [phone] Care Team Providers Care Driver Medic Name Role Phone JorgitoChad hager Primary Care Provider [phone] Reason for Visit * Reason Comments Return Visit Chronic Kidney Disease (CKD) Hypertension Encounter Details Date Type Department Care Team (Late st Contact Info) Description 05/04/2024 3:00 PM EDT Office Visit Nephrology, [facility] [address] [facility] [place] [address] Eddie Suh MD [address] [facility] [place] [address] Stage 3b chronic kidney disease (HCC)*; Heart failure, diastolic, due to HTN (HCC); HTN, goal below 150/90 Allergies Active Allergy Reactions Criticality Noted Date [...] as directed by [facility] coumadin clinic 90 Tablet 1 04/25/2024 [...] Resolved Date Coronary artery disease invo [place] heart without angina pectoris 04/18/2019 10/29/2019 COPD, [...] No 09/21/2023 Does the household have a [facility] source of income? (Household - for ages [...] Sign Reading Time Taken Comments Blood Pressure 119/63 05/04/2024 2:55 PM EDT Pulse 63 05/04/2024 2:55 PM EDT Temperature 37 C (98.6 F) 05/04/2024 2:55 PM EDT Respiratory Rate 20 05/04/2024 2:55 PM EDT Oxygen Saturation 89% 05/04/2024 2:55 PM EDT Inhaled Oxygen Concentration - - Weight 82.1 kg (180 lb 14.4 oz) 05/04/2024 2:55 PM EDT Height - - Body Mass Index 37.81 04/26/2024 2:41 PM EDT documented in this encounter Progress Notes * Eddie Suh MD - 05/04/2024 3:01 PM EDT REASON FOR CALL: CKD HPI: Tori May is a 89 year old female called in follow-up for ckd 3. She has type DM for over 10yrs, no retinopathy but has neuropathy. She has had HTN for over 10yrs. She has had CKD stage 3 since 29/08 with the baseline creatinine between 1 and 1.4. There was a big jump in her creatinine in May 2018 with the creatinine between 1.8-2.2 around the time she was admitted at [facility] from 05/25 to 05/29 for CHF exacerbation. Since Last office visit in 09/2022---Had RSV infection . Now needing some o2 during exercise. Renal function stable during admission. BP not as low as before. On lasix 40 bid. Currently no major edema no major shortness of breath orthopnea or PND. No new medication Past Medical History: Diagnosis Date Asthma, allergic Atrial fibrillation (HCC) 03/05/2011 Cardiac pacemaker in situ 06/23/2017 CARDIOVAS SYS SYMP NEC-carotid bruit 11/30/2002 CPAP (continuous positive airway pressure) dependence setting 4 DM type 2, goal A1C 7-8 03/04/2014 Dyslipidemia, goal LDL below 160 Gastric ulcer Heart failure, diastolic, due to HTN ([facility]) 12/30/2014 Hypertensive heart disease with diastolic heart failure and stage 3 chronic kidney disease (HCC) 05/16/2018 Hypothyroidism clinically euthyroid KIDNEY DISEASE, CHRONIC, STAGE III (GFR 30-59 ML/MIN) 02/28/2012 Per CKD protocol #1 custodial 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 therapy 10/18/2017 ICD-10 update of inactive term Moderate mitral regurgitation by prior echocardiogram 10/18/2017 Obesity, BMI not known 11/30/2002 Paroxysmal SVT (supraventricular tachycardia) ([facility]) 11/30/2002 Paroxysmal SVT (supraventricular tachycardia) ([facility]) 11/30/2002 Tachycardia associated with angina [...] negative for rash Family History Problem Relation Name Age of [...] file Gets together: Not on file Attends islam service: Not on file Active member of [...] as directed by [facility] coumadin [facility] 90 Tablet 1 No current facility-administered medications for this visit. BP 119/63 (BP Site: Left Arm, BP Position: Sitting, BP Cuff Size: Large) | Pulse 63 | Temp 37 C (98.6 F) (Tympanic) | Resp 20 | Wt 82.1 kg (180 lb 14.4 oz) | SpO2 89% | BMI 37.81 kg/m | BSA 1.83 m Awake alert No respiratory distress Normal accurate speech Chest bilateral clear to auscultation CVS S1-S2 regular soft systolic murmur heard Abdomen is soft non tender Extremities shows trace edema bilateral LABS/STUDIES: NEPH-FLOW Latest Ref Rng [...] (HCC) (Primary) Patient with the CKD stage 3B-- likely due to longstanding diabetes and hypertension. Her electrolytes are stable and volume status is acceptable. Labs done March 2023 was reviewed and shows a creatinine of 1.4 GFR of 37 which is right within her baseline. Will do labs as below Denies any complaints. Blood pressure is not low anymore after lowering of the Lasix. It also seems she is no longer on lisinopril Reviewed hospital admission September 2023 for RSV infection with COPD flare up. - CBC WITH WBC DIFFERENTIAL; Future; Expected date: 05/04/2024 - PTH; Future; Expected date: 05/04/2024 - PROTEIN/ CREATININE RATIO, URINE; Future; Expected date: 05/04/2024 - RENAL FUNCTION PANEL; Future; Expected date: 05/04/2024 - URINALYSIS WITH MICROSCOPIC EXAM; Future; Expected date: 05/04/2024 - 25-HYDROXY VITAMIN D; Future; Expected date: 05/04/2024 Heart failure, diastolic, due to HTN (HCC) Blood pressure is not low anymore after lowering the dose of Lasix. She does have some edema but major part of it is related with obesity/lymphedema/venous insufficiency HTN, goal below 150/90 Blood pressure is at goal. Continue same No Lisinopril anymore. BP not super low now. Follow Up: Return in about 1 year (around 05/04/2025) for Clinic Visit. | For: Clinic Visit Eddie Suh MD documented in this encounter Nursing Notes * Susanne Milan LPN - 05/04/2024 2:51 PM EDT Patient identified by verbal name and date of .Return visit [facility] No surgery Pt notes SOB Nurse notes edema to bilateral lower extremities No recent labs in chart documented in this encounter Plan of Treatment Upcoming Encounters Date Type Department Care Team (Late st Contact Info) Description 05/15/2024 10:00 AM EDT Office Visit Podiatry [facility] [address] [place] [address] Bryanna Guzman DPM [address] [place] [address] 06/05/2024 1:50 PM EDT Anticoagulation Pharmacy, [facility] [address] [facility] [place] [address] Pharmacist1, [facility] [place] [address] 06/05/2024 2:00 PM EDT Office Visit Family Practice [facility] [address] [facility] [place] [address] Chad Phoenix, DO [address] [facility] [place] [address] 06/13/2024 2:30 PM EDT PulmDiagnostic Pulmonary Function Lab, [facility] [address] [place] [address] [address], [address] [place] [address] 10/15/2024 3:00 PM EST Office Visit Cardiology, [facility] [address] [place] [address] Yeni Laureano CRNP [address] [place] [address] 04/30/2025 3:00 PM EDT Office Visit Pulmonary Medicine, [facility] [address] [place] [address] Krunal Sherwood MD [address] [place] [address] Pending Results Name Type Priority Associated Diagnoses Date /Time CBC WITH WBC DIFFERENTIAL Lab Routine Stage [...] kidney disease (HCC) 05/04/2024 3:28 PM EDT Scheduled Orders Name Type Priority Associated Diagnoses Orde r Schedule CBC WITH WBC DIFFERENTIAL Lab Routine Stage 3b chronic kidney disease (HCC) Expected: 05/04/2024 (Approximate), Expires: 10/31/2024 PTH Lab Routine Stage 3b chronic kidney disease (HCC) Expected: 05/04/2024 (Approximate), Expires: 10/31/2024 PROTEIN/ CREATININE RATIO, URINE Lab Routine Stage 3b chronic kidney disease (HCC) Expected: 05/04/2024 (Approximate), Expires: 10/31/2024 URINALYSIS WITH MICROSCOPIC EXAM Lab Routine Stage 3b chronic kidney disease (HCC) Expected: 05/04/2024 (Approximate), Expires: 10/31/2024 25-HYDROXY VITAMIN D Lab Routine Stage 3b chronic kidney disease (HCC) Expected: 05/04/2024 (Approximate), Expires: 10/31/2024 Health Maintenance Due Date Last Done Comments Zoster Vaccines (1 of 2) 1985 COVID-19 Vaccine ( season) 2023 09/23/2021, 12/09/2020, 11/11/2020 Albumin/Creatinine Ratio 10/26/2023 023, 12/08/2021, 02/26/2019, Additional history exists Diabetic Foot Exam 10/26/2023 10/26/2022, 0 11/24/2021, 02/12/2021, Additional history exists TSH 04/05/2024 04/05/2023, 0703/2022, 04/08/2022, Additional history exists HbA1c 04/10/2024 10/11/2023, [...] 150/90 documented in this encounter Advance Directives * [...] Care Agent (per Health Care Power of Hand Thermal Cutter document) DAVID Ryanne Adult Child Second Alternate Health Care Agent (per Health Care Power of Hand Thermal Cutter document) Care Teams Driver Medic Relationship Specialty Start Date End Date Chad Phoeinx DO [address] [facility] [place] [address] PCP - General Family Medicine 06/02/18 documented as of this encounter"
--- OUTSIDE RECORDS SUMMARY | 2024-07-17 15:46 | External Medical Summary | Summary of Care ---
Author Name Unknown Organization [facility] Address [address] [facility] [address] Phone [phone] Care Team Providers Care Powderman Name Role Phone JorgitoChad hager Primary Care Provider [phone] Reason for Visit * Reason Comments Dosage Adjustment In Person (Anticoag Cl inic) Encounter Details Date Type Department Care Team (Latest Contact Info) Description 05/02/2024 1:20 PM EDT Anticoagulation Pharmacy, [facility] 200 [facility] [place] [address] Pharmacist1, [facility] 200 [facility] [address] Anticoagulation management encounter*; Longstanding persistent atrial fibrillation (HCC); Permanent atrial fibrillation (HCC); Paroxysmal atrial fibrillation (HCC) Allergies Active Allergy Reactions Criticality Noted Date Comments Glipizide 02/18/2021 Dizzy, confusion Latex Rash 04/05/2024 Penicillins Rash 10/13/2001 documented as of this encounter (statuses as of 05/02/2024) Medications Medication Sig Dispensed Refills Start Date [...] to HTN ([facility]) Take one tablet by mouth in the [...] EVERY MORNING 90 Tablet 1 04/25/2024 Active Warfarin Sodium 5 MG Oral Tablet (Jantoven)Indication s:Persistent atrial fibrillation (HCC) Take 1/2 to 1 tablet by mouth daily as directed by [facility] coumadin clinic 90 Tablet 1 04/25/2024 Active documented as of this encounter (statuses as of 05/02/2024) Active Problems Problem Noted Date Diagnosed Date [...] mitral regurgitation by prior echocardi ogram 10/18/2017 keno terminal operator 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 therapy [...] as of this encounter (statuses as of 05/02/2024) Resolved Problems Problem Noted Date Diagnosed Date Resolved Date Coronary artery disease invo lving [place] heart without angina pectoris 04/18/2019 10/29/2019 COPD, [...] 02/28/2012 08/29/2018 Overview: Per CKD [facility] #[facility] use of 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 therapy 03/05/2011 [...] as of this encounter (statuses as of 05/02/2024) Immunizations Name Administration Dates Next Due COVID-19 [...] of this encounter Progress Notes * Ritchie Gonzáles, [facility] - 05/02/2024 12:44 PM EDT Images from the original note were not included. Medication Therapy Disease Management - Anticoagulation Tori May 1935 Current Warfarin Dose As of 05/02/2024 Warfarin maintenance plan: 2.5 mg (5 mg x 0.5) every Mon; 5 mg (5 mg x 1) all other days Patient Findings Negatives: Signs/symptoms of thrombosis, Signs/symptoms of bleeding, Change in health, Change in alcohol use, Change in activity, Upcoming invasive procedure, Missed doses, Extra doses, Change in medications, Change in diet/appetite, Bruising INR Result As of 05/02/2024 INR goal: 2.0-3.0 INR used for dosin.7 (05/02/2024) Warfarin Plan As of 05/02/2024 Full warfarin instructions: 05/03: 7.5 mg; Otherwise 2.5 mg every Mon; 5 mg all other days Next INR check: 06/05/2024 Repeat PT/INR in 5 week(s) Weekly dose: not changed Ritchie Menchaca RPh, CACP, CDE Clinical Pharmacist Med[facility] 05/02/2024 12:51 PM documented in this encounter Plan of Treatment Upcoming Encounters Date Type Department Care Team (Late st Contact Info) Description 05/04/2024 3:00 PM EDT Office Visit Nephrology, [facility] [address] [place] [address] Eddie Suh MD [address] [place] [address] 05/15/2024 10:00 AM EDT Office Visit Podiatry [facility] [address] [place] [address] Bryanna Guzman DPM [address] [place] [address] [address] 06/05/2024 1:50 PM EDT Anticoagulation Pharmacy, [facility] 200 [facility] [place] [address] Pharmacist1, [facility] [address] [place] [address] 06/05/2024 2:00 PM EDT Office Visit Family Practice [facility] 200 [facility] [place] [address] Chad Phoenix, DO 200 [facility] [place] [address] 06/13/2024 2:30 PM EDT PulmDiagnostic Pulmonary Function Lab, [facility] 132 [facility] [place] [address] [place], [address] 132 [facility] [place] [address] 10/15/2024 3:00 PM EST Office Visit Cardiology, [facility] 132 [facility] [place] [address] Yeni Laureano CRNP 132 [facility] [place] [address] 04/30/2025 3:00 PM EDT Office Visit Pulmonary Medicine, [facility] 132 [facility] [place] [address] Krunal Sherwood MD [address] [place] [address] Health Maintenance Due Date Last Done Comments Zoster Vaccines (1 of 2) 1985 COVID-19 Vaccine ( season) 2023 09/23/2021, 12/09/2020, 11/11/2020 Albumin/Creatinine Ratio 10/26/2023 023, 12/08/2021, 02/26/2019, Additional history exists Diabetic Foot Exam 10/26/2023 10/26/2022, 0 11/24/2021, 02/12/2021, Additional history exists TSH 04/05/2024 04/05/2023, 07/0 03/2022, 04/08/2022, Additional history exists HbA1c 04/10/2024 10/11/2023, 06/2 04/2023, 10/20/2022, Additional history exists Diabetic Eye Exam [...] Comments INR FINGERSTICK, POINT OF CARE STAT 05/02/2024 12:48 PM EDT Permanent atrial fibrillation (HCC) Paroxysmal atrial fibrillation (HCC) Anticoagulation management encounter documented in this encounter Results * INR FINGERSTICK, POINT OF CARE (05/02/2024 12:48 PM EDT) Fingerstick INR 1.7 INR 12:49 PM EDT [employer] [facility] [employer] ([email or web address] 56-02 Blood 05/02/2024 12:4 8 PM EDT 05/02/2024 12:49 PM EDT Narrative [facility] 56-02 - 05/02/2024 12:49 PM EDT Therapeutic ranges for non-operative patients: Prophylaxsis/treatment of DVT: (Range:2.0-3.0) Treatment of pulmonary embolism:(Range:2.0-3.0) Prevention of systemic embolism from: -tissue heart valves -acute myocardial infarction -valvular heart disease -atrial fibrillation (Range: 2.0-3.0) Mechanical prosthetic valves: (Range: 2.5-3.5) Ritchie Menchaca V, RP LAB POINT OF CARE TE ST DOCKED DEVICE UNSOLICITED RESULTS [facility] 56-02 200 [place] [address] documented in this encounter Visit Diagnoses Diagnosis Anticoagulation management encounter- Primary Encounter for therapeutic drug monitoring Longstanding persistent atrial fibrillation (HCC) Permanent atrial fibrillation (HCC) Atrial fibrillation Paroxysmal atrial fibrillation (HCC) Atrial fibrillation documented in this encounter Advance Directives * [...] Care Agent (per Health Care Power of Ship'S Captain document) DAVID Ryanne Adult Child Second Alternate Health Care Agent (per Health Care Power of Ship'S Captain document) Care Teams Powderman Relationship Specialty Start Date End Date Chad Phoenix DO 200 [place] [address] PCP - General Family Medicine 06/02/18 documented as of this encounter
--- OUTSIDE RECORDS SUMMARY | 2024-07-17 15:46 | External Medical Summary ---
Author Name Unknown Address Unknown Organization K09:[facility] [place] [address] Laboratory Report Ordering Provider Test Date Status ROXANNE VAZQUEZ 05/04/2024 15:28:20 Final Observation Date Value Abnormality Reference (Units ) Status SYNC LEUKOCYTES IN BLOOD BY AUTOMATED COUNT 05/04/2024 15:28:20 5.72 4.00-10.80 (K/uL) Final Segs 05/04/2024 15:28:20 56.2 40.0-75.0 (%) Final Lymphs % 05/04/2024 15:28:20 19.9 18.0-42.0 (%) Final Monos 05/04/2024 15:28:20 19.4 Above high normal 1.0-11.0 (%) Final Eosinophils 05/04/2024 15:28:20 4.2 0.0-6.0 (%) Final Basos 05/04/2024 15:28:20 0.3 0.0-2.0 (%) Final Absolute Segs 05/04/2024 15:28:20 3.21 1.80-7.70 (K/uL) Final Lymphs, absolute 05/04/2024 15:28:20 1.14 1.00-4.80 (K/ul) Final Monos, Abs 05/04/2024 15:28:20 1.11 Above high normal 0.00-1.10 (K/uL) Final Eos, Abs 05/04/2024 15:28:20 0.24 0.00-0.70 (K/uL) Final Basos, Abs 05/04/2024 15:28:20 0.02 0.00-0.20 (K/uL) Final Performing Location [facility] [place] [address]
--- OUTSIDE RECORDS SUMMARY | 2024-07-17 15:46 | External Medical Summary | Summary of Care ---
Author Name Unknown Organization [facility] Address [address] [facility] [place] [address] Phone [phone] Care Team Providers Care Cottage Attendant Name Role Phone JorgitoChad hager Primary Care Provider [phone] Reason for Visit * Reason Onset Date Comments Test Results 05/08/2024 Encounter Details Date Type Department Care Team (Late st Contact Info) Description 05/08/2024 [facility] [address] [place] [address] Eddie Suh MD 200 [facility] [address] Test Results Allergies Active Allergy Reactions Criticality Noted Date Comments Glipizide 02/18/2021 Dizzy, confusion Latex Rash 04/05/2024 Penicillins Rash 10/13/2001 documented as of this encounter (statuses as of 05/08/2024) Medications Medication Sig Dispensed Refills Start Date [...] group B, by GOLD 2017 classification ([facility]) Inhale 1 Vial via nebulizer [...] tablet by mouth daily as directed by [facility] 90 Tablet 1 04/25/2024 Active documented as of this encounter (statuses as of 05/08/2024) Active Problems Problem Noted Date Diagnosed Date [...] as of this encounter (statuses as of 05/08/2024) Resolved Problems Problem Noted Date Diagnosed Date Resolved Date Coronary artery disease invo lving [place] heart without angina pectoris 04/18/2019 10/29/2019 COPD, [...] 08/29/2018 Overview: Per CKD protocol #1 terminal [facility]man current use of 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 therapy 03/05/2011 [...] as of this encounter (statuses as of 05/08/2024) Immunizations Name Administration Dates Next Due COVID-19 [...] encounter Miscellaneous Notes * Telephone Encounter - Norma Dimas RN - 05/08/2024 2:13 PM EDT TE with pt's daughter regarding stable lab results. No changes at this time. * Telephone Encounter - Norma Dimas RN - 05/08/2024 2:13 PM EDT ----- Message from Eddie Suh MD sent at 05/08/2024 2:08 PM EDT ----- Labs stable. Continue same documented in this encounter Plan of Treatment Upcoming Encounters Date Type Department Care Team (Late st Contact Info) Description 05/15/2024 10:00 AM EDT Office Visit Podiatry [facility] [place] [address] [place] [address] [address] Bryanna Guzman, DPM [address] [place] [address] [address] 06/05/2024 1:50 PM EDT Anticoagulation Pharmacy, [facility] 200 [facility] [place] [address] Pharmacist1, [facility] 200 [facility] [place] [address] 06/05/2024 2:00 PM EDT Office Visit Family Practice [facility] 200 [facility] [place] [address] Chad Phoenix, DO 200 [facility] [place] [address] 06/13/2024 2:30 PM EDT PulmDiagnostic Pulmonary Function Lab, [facility] [address] [place] [address] [address] [address], [address] [place] [address] [address] 10/15/2024 3:00 PM EST [facility] [place] [address] [place] [address] [address] Yeni Laureano CRNP [address] [place] [address] 04/30/2025 3:00 PM EDT Office Visit Pulmonary Medicine, [facility] [address] [place] [address] Krunal Sherwood MD [address] [place] [address] Health Maintenance Due Date Last Done Comments [...] Care Agent (per Health Care Power of Wiener Packer document) DAVID Pearl Adult Child Second Alternate Health Care Agent (per Health Care Power of Wiener Packer document) Care Teams Cottage Attendant Relationship Specialty Start Date End Date Chad Phoenix DO [address] [place] [address] PCP - General Family Medicine 06/02/18 documented as of this encounter
--- OUTSIDE RECORDS SUMMARY | 2024-07-17 15:46 | External Medical Summary ---
Author Name Unknown Address Unknown Organization [id number]:[facility] [place] - [address] [facility] [place] [address] Laboratory Report Ordering Provider Test Date Status KALPESH DONG 05/04/2024 15:28:20 Final Observation Date Value Abnormality Reference (Units ) Status HbA1C 05/04/2024 15:28:20 6.5 Above high normal 4. 0-5.6 (%) Final The use of HbA1c to monitor glycemic status is based on normal hemoglobin and HbA composition. This test should not be used in patients with abnormal hemoglobin that affects the half life of the red blood cell or the in vivo glycation rates. Glucose, estimated average 05/04/2024 15:28:20 140 Above high normal <126 (mg/dL) Eleazar fofana Performing Location [facility] [place] - [address] [place] [address]
--- OUTSIDE RECORDS SUMMARY | 2024-07-17 15:46 | External Medical Summary | Summary of Care ---
Author Name Unknown Organization [facility] Address [address] [place] [address] Phone [phone] Care Team Providers Care Integration Solution Architect Name Role Phone JorgitoChad hager Primary Care Provider [phone] Encounter Details Date Type Department Care Team (Late st Contact Info) Description 05/07/2024 Population Health External Data Unspecified Department Allergies Active Allergy Reactions Criticality Noted Date Comments Glipizide 02/18/2021 Dizzy, confusion Latex Rash 04/05/2024 Penicillins Rash 10/13/2001 documented as of this encounter (statuses as of 05/07/2024) Medications Medication Sig Dispensed Refills Start Date [...] ns:COPD, group B, by GOLD 2017 classification ([facility]) Inhale 1 Vial via nebulizer every [...] (Lasix)Indications:H eart failure, diastolic, due to HTN ([facility]) Take one tablet by mouth in the [...] unspecified whether stage 3a or 3b CKD ([facility]) Take 1 Tablet by mouth in [...] tablet by mouth daily as directed by [facility] coumadin clinic 90 Tablet 1 04/25/2024 Active documented as of this encounter (statuses as of 05/07/2024) Active Problems Problem Noted Date Diagnosed Date [...] mitral regurgitation by prior echocardi ogram 10/18/2017 [facility] 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 therapy 0 10/18/2017 [...] as of this encounter (statuses as of 05/07/2024) Resolved Problems Problem Noted Date Diagnosed Date Resolved Date Coronary artery disease invo lving [place] heart without angina pectoris 04/18/2019 10/29/2019 COPD, [...] CKD protocol #1 [facility] current use of 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 therapy 03/05/2011 [...] as of this encounter (statuses as of 05/07/2024) Immunizations Name Administration Dates Next Due COVID-19 [...] AM EDT Office Visit Podiatry [facility] [address] [place] [address] [address] Bryanna Guzman DPM [address] [place] [address] [address] 06/05/2024 1:50 PM EDT Anticoagulation Pharmacy, [place] 200 [facility] [place] [address] Pharmacist1, [facility] 200 [place] [address] 06/05/2024 2:00 PM EDT Office Visit Family Practice [facility] 200 [facility] [place], [place] [address] Chad Phoenix, DO 200 [facility] [place] [address] 06/13/2024 2:30 PM EDT PulmDiagnostic Pulmonary Function Lab, [facility] 132 [facility] [place] [address] [place], [address] 132 [facility] [place] [address] 10/15/2024 3:00 PM EST Office Visit Cardiology, [facility] 132 [facility] [place] [address] Yeni Laureano, VICTOR HUGO 132 [facility] [address] 04/30/2025 3:00 PM EDT Office Visit Pulmonary Medicine, [facility] 132 [facility] [place] [address] Krunal Sherwood MD [address] [place] [address] [address] Health Maintenance Due Date Last Done Comments [...] Care Agent (per Health Care Power of Boat Canvas Maker And Installer document) DAVID Ryanne Adult Child Second Alternate Health Care Agent (per Health Care Power of Boat Canvas Maker And Installer document) Care Teams Integration Solution Architect Relationship Specialty Start Date End Date Chad Phoenix DO [address] [place], [place] [address] [place] [address] PCP - General Family Medicine 06/02/18 documented as of this encounter
--- OUTSIDE RECORDS SUMMARY | 2024-07-17 15:46 | External Medical Summary | Summary of Care ---
Author Name Unknown Organization [facility] Address [address] [place] [address] Phone [phone] Care Team Providers Care Fancy Wire Drawer Name Role Phone JorgitoChad hager Primary Care Provider [phone] Encounter Details Date Type Department Care Team (Late st Contact Info) Description 05/08/2024 Population Health External Data Unspecified Department Allergies [...] B, by GOLD 2017 classification ([facility]) Inhale 1 Vial via nebulizer every [...] failure, diastolic, due to HTN ([facility]) Take one tablet by mouth in the [...] unspecified whether stage 3a or 3b CKD ([facility]) Take 1 Tablet by mouth in [...] tablet by mouth daily as directed by [facility] coumadin clinic 90 Tablet 1 04/25/2024 [...] Resolved Date Coronary artery disease invo lving [place] heart without angina pectoris 04/18/2019 10/29/2019 COPD, [...] 02/28/2012 08/29/2018 Overview: Per CKD protocol #1 [facility] current use of 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 therapy 03/05/2011 [...] 05/15/2024 10:00 AM EDT Office Visit Podiatry [facility] [address] [place] [address] [address] Bryanna Guzman DPM [address] [place] [address] [address] 06/05/2024 1:50 PM EDT Anticoagulation Pharmacy, [place] 200 [facility] [place] [address] Pharmacist1, [facility] 200 [place] [address] 06/05/2024 2:00 PM EDT Office Visit Family Practice [facility] 200 [facility] [place], [place] [address] Chad Phoenix, DO 200 [facility] [place], [place] [address] 06/13/2024 2:30 PM EDT PulmDiagnostic Pulmonary Function Lab, [facility] 132 [facility] [place] [address] [address], [address] 132 [facility] [place] [address] 10/15/2024 3:00 PM EST Office Visit Cardiology, [facility] 132 [facility] [place] [address] Yeni Laureano, VICTOR HUGO [facility] [address] 04/30/2025 3:00 PM EDT Office Visit Pulmonary Medicine, [facility] 132 [facility] [place] [address] Krunal Sherwood MD [address] [place] [address] Health Maintenance Due Date Last Done Comments [...] Care Agent (per Health Care Power of Brooch Maker Novelty document) DAVID Ryanne Adult Child Second Alternate Health Care Agent (per Health Care Power of Brooch Maker Novelty document) Care Teams Fancy Wire Drawer Relationship Specialty Start Date End Date Chad Phoenix DO [address] [place], [place] [address] [place] [address] PCP - General Family Medicine 06/02/18 documented as of this encounter
--- OUTSIDE RECORDS SUMMARY | 2024-07-17 15:46 | External Medical Summary ---
Author Name Unknown Address Unknown Organization K01:[facility] [place] [address] [place] [address] Laboratory Report Ordering Provider Test Date Status ROXANNE VAZQUEZ 05/04/2024 15:28:20 Final Observation Date Value Abnormality Reference (Units ) Status Parathyrin.intact [Mass/volume] in Serum or Plasma 05/04/2024 15:28:20 154 Above high normal 15-65 (pg/mL) Final Performing Location [facility] [place] [address] [place] [address]
--- OUTSIDE RECORDS SUMMARY | 2024-07-17 15:46 | External Medical Summary ---
Author Name Unknown Address Unknown Organization K01:[facility] - [address] [place] [address] Laboratory Report Ordering Provider Test Date Status KALPESH DONG 05/04/2024 15:28:20 Final Observation Date Value Abnormality Reference (Units ) Status T4, Free 05/04/2024 15:28:20 1.2 0.9-1.7 (n g/dL) Final Performing Location [facility] - [address] [place] [address]
--- OUTSIDE RECORDS SUMMARY | 2024-07-17 15:46 | External Medical Summary ---
Author Name Unknown Address Unknown Organization K09:[facility] - [address] [facility] [place] [address] Laboratory Report Ordering Provider Test Date Status KALPESH DONG 05/04/2024 15:28:20 Final Observation Date Value Abnormality Reference (Units ) Status BUN 05/04/2024 15:28:20 23 Above high normal 6-20 (mg/dL) Final Creatinine 05/04/2024 15:28:20 1.3 Above high normal 0.5-1.0 (mg/dL) Final Glomerular filtration rate/1.73 sq M.predicted [Volume Rate/Area] in Serum, Plasma or Blood by Creatinine-based formula (CKD-EPI) 05/04/2024 15:28:20 41 Below low normal >=60 (mL/min) Final eGFR is calculated based on the CKD-EPI 2020 equation. Sodium 05/04/2024 15:28:20 140 135-146 (m mol/L) Final Potassium 05/04/2024 15:28:20 3.9 3.5-5.1 (m mol/L) Final Cl 05/04/2024 15:28:20 99 98-107 (mm ol/L) Final CO2 05/04/2024 15:28:20 28 22-32 (mmo l/L) Final Anion gap 05/04/2024 15:28:20 13 7-15 (mmol /L) Final Glucose 05/04/2024 15:28:20 132 Above high normal 70 -120 (mg/dL) Final Albumin 05/04/2024 15:28:20 4.1 3.8-5.0 (g /dL) Final AST (Aspartate aminotransferase) 05/04/2024 15:28:20 19 10-35 (U/L) Fin al Alk Phos 05/04/2024 15:28:20 122 35-130 (U/ L) Final Bilirubin, Total 05/04/2024 15:28:20 0.6 <=1 .2 (mg/dL) Final Calcium 05/04/2024 15:28:20 8.9 8.4-10.2 ( mg/dL) Final Protein 05/04/2024 15:28:20 6.3 6.0-8.3 (g /dL) Final ALT (Alanine aminotransferase) 05/04/2024 15:28:20 12 10-35 (U/L) Eleazar fofana Performing Location [facility] - [address] [place] [address]
--- OUTSIDE RECORDS SUMMARY | 2024-07-17 15:46 | External Medical Summary ---
Author Name Unknown Address Unknown Organization K09:[facility] [place] [address] Laboratory Report Ordering Provider Test Date Status THANIA ALBERTO V 05/04/2024 15:28:20 Final Warfarin Therapy
INR: 2 .0-3.0 conventional anticoagulation
INR: 2.5- 3.5 high intensity anticoagulation Observation Date Value Abnormality Reference (Units ) Status PT 05/04/2024 15:28:20 22.0 Above high normal 11 .6-15.2 (seconds) Final INR 05/04/2024 15:28:20 1.9 Above high normal 0. 8-1.2 Final Performing Location [facility] [place] [address]
--- OUTSIDE RECORDS SUMMARY | 2024-07-17 15:47 | External Medical Summary | Summary of Care ---
Author Name Unknown Organization [facility] Address [address] [facility] [place] [address] Phone [phone] Care Team Providers Care Tellers Supervisor Name Role Phone LizettChad Jorge Luis GAMEZ Primary Care Provider [phone] Encounter Details Date Type Department Care Team (Late st Contact Info) Description 04/30/2024 Orders Only PATIENT PORTAL DO NOT DELETE THIS DEPT USED BY [place] [address] Allergies Active Allergy Reactions Criticality Noted Date Comments Glipizide 02/18/2021 Dizzy, confusion Latex Rash 04/05/2024 Penicillins Rash 10/13/2001 documented as of this encounter (statuses as of 04/30/2024) Medications Medication Sig Dispensed Refills Start Date [...] R external ear 60 g 04/06/2019 Active MohsenTouch Verio In Vitro Strip (Glucose Blood) test once daily Dx. E11.9 100 Strip 3 05/04/2021 Active Albuterol Sulfate (2.5 MG/3ML) 0.083% Inhalation Nebulization Solution (Proventil)Indicatio ns:COPD, group B, by GOLD 2017 classification ([facility]) Inhale 1 Vial via nebulizer every 4 [...] failure, diastolic, due to HTN ([facility]) Take one tablet by mouth in the [...] unspecified whether stage 3a or 3b CKD ([facility]) Take 1 Tablet by mouth in the [...] tablet by mouth daily as directed by [facility] 90 Tablet 1 04/25/2024 Active documented as of this encounter (statuses as of 04/30/2024) Active Problems Problem Noted Date Diagnosed Date [...] mitral regurgitation by prior echocardi ogram 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 [address] [place] [address] [address] 05/04/2024 3:00 PM EDT Office Visit Nephrology, [facility] [address] [place] [address] Eddie Suh MD [address] [facility] [address] [place], [place] [address] 05/15/2024 10:00 AM EDT Office Visit Podiatry [facility] [address] [facility] [place] [address] Bryanna Guzman, DPM [address] [facility] [place] [address] 06/05/2024 2:00 PM EDT Office Visit Family Practice [facility] [address] [facility] [place] [address] Chad Phoenix DO 200 [facility] [place], [place] [address] 06/13/2024 2:30 PM EDT PulmDiagnostic Pulmonary Function Lab, [facility] [address] [facility] [place] [address] [place], [address] [facility] [place] [address] 10/15/2024 3:00 PM EST Office Visit Cardiology, [facility] [address] [facility] [place] [address] Yeni Laureano CRNP [address] [facility] [place] [address] 04/30/2025 3:00 PM EDT Office Visit Pulmonary Medicine, [facility] [address] [facility] [place] [address] Krunal Sherwood MD [address] [place] [address] Health Maintenance Due Date Last Done Comments Zoster Vaccines (1 of 2) 1985 COVID-19 Vaccine (2022-24 season) 2023 09/23/2021, 12/09/2020, 11/11/2020 Albumin/Creatinine Ratio [...] Care Agent (per Health Care Power of Automation And Controls Manager document) DAVID Pearl Adult Child Second Alternate Health Care Agent (per Health Care Power of Automation And Controls Manager document) Care Teams Tellers Supervisor Relationship Specialty Start Date End Date Chad Phoenix DO [address] [place] [address] PCP - General Family Medicine 06/02/18 documented as of this encounter
--- OUTSIDE RECORDS SUMMARY | 2024-07-17 15:47 | External Medical Summary | Summary of Care ---
Author Name Unknown Organization [facility] Address [address] [facility] [place] [address] Phone [phone] Care Team Providers Care Heating Element Winder Name Role Phone JorgitoChad hager Primary Care Provider [phone] Reason for Visit * Reason Comments Dosage Adjustment In Person (Anticoag Cl inic) Encounter Details Date Type Department Care Team (Latest Contact Info) Description 03/14/2024 2:30 PM EDT Anticoagulation Pharmacy, [facility] [address] [facility] [place] [address] Pharmacist1, [facility] 200 [facility] [place] [address] Atrial fibrillation, unspecified type (HCC)*; Permanent atrial fibrillation (HCC); Paroxysmal atrial fibrillation (HCC); Anticoagulation management encounter Allergies Active Allergy Reactions Criticality Noted Date Comments Glipizide 02/18/2021 Dizzy, confusion Penicillins Rash 10/13/2001 documented as of this encounter (statuses as of 03/14/2024) Medications Medication Sig Dispensed Refills Start Date [...] ns:COPD, group B, by GOLD 2017 classification ([facility]) Inhale 1 Vial via nebulizer every 4 hours as needed for Wheezing or Shortness of Breath. 90 mL 3 10/20/2022 Active oxygen IN GAS Increase to 3 LPM bled through CPAP with all sleep. T and B medical 1 Each 12/20/2022 Active Vitamin D3 1.25 MG (45255 UT) Oral Capsule TAKE 1 CAPSULE BY MOUTH ONCE WEEKLY 12 Capsule 01/17/2023 Active Nystatin 504921 UNIT/GM External Powder (Nystop) Apply topically to [...] OTHER MEDICATIONS 90 Tablet 3 08/01/2023 Active Warfarin Sodium 5 MG Oral Tablet (Jantoven)Indication s:Persistent atrial fibrillation (HCC) Take 1/2 to 1 tablet by mouth daily as directed by [facility] cou[facility] 90 Tablet 1 08/23/2023 Active Pantoprazole Sodium 40 MG Oral Tablet [...] the morning.. 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 Never true 09/21/2023 Sex and Gender Information Value Date Recorded Sex Assigned at Female 02/14/2023 2:15 PM EDT Gender Identity Female 02/14/2023 2:15 PM EDT Sexual Orientation Straight 02/14/2023 2: 15 PM EDT Job Start Date Occupation Industry Not on file Not on file Not on file documented as of this encounter Progress Notes * Ritchie Gonzáles RPh - 03/14/2024 2:44 PM EDT Images from the original note were not included. Medication Therapy Disease Management - Anticoagulation Tori Medley Omidmildred 1935 Current Warfarin Dose As of 03/14/2024 Warfarin maintenance plan: 2.5 mg (5 mg x 0.5) every Mon, Fri; 5 mg (5 mg x 1) all other days Patient Findings Negatives: Signs/symptoms of thrombosis, Signs/symptoms of bleeding, Change in health, Change in alcohol use, Change in activity, Upcoming invasive procedure, Missed doses, Extra doses, Change in medications, Change in diet/appetite, Bruising INR Result As of 03/14/2024 INR goal: 2.0-3.0 INR used for dosin.8 (03/14/2024) Warfarin Plan As of 03/14/2024 Full warfarin instructions: 03/14: 7.5 mg; Otherwise 2.5 mg every Mon, Fri; 5 mg all other days Next INR check: 05/04/2024 Repeat PT/INR in 6 week(s) Weekly dose: not changed Ritchie Menchaca RPh, CACP, CDE Clinical Pharmacist Medication Therapy Management [facility] 03/14/2024 2:44 PM documented in this encounter Plan of Treatment Upcoming Encounters Date Type Department Care Team (Late st Contact Info) Description 04/05/2024 3:00 PM EDT Office Visit Cardiology, [facility] [address] [place] [address] Yeni Laureano CRNP [address] [place] [address] 05/04/2024 2:50 PM EDT Anticoagulation Pharmacy, [facility] [address] [facility] [place] [address] Pharmacist1, [facility] [address] [place] [address] 05/04/2024 3:00 PM EDT Office Visit Nephrology, [facility] [address] [facility] [place] [address] Eddie Suh MD [address] [facility] [place] [address] 05/15/2024 10:00 AM EDT Office Visit Podiatry [facility] [address] [place] [address] Bryanna Guzman DPM [address] [place] [address] 05/16/2024 2:20 PM EDT Office Visit Family Practice [facility] [address] [place] [address] Gaby Holland PA-C [address] [facility] [place] [address] Health Maintenance Due Date Last Done Comments Zoster Vaccines (1 of 2) 1985 COVID-19 Vaccine ( season) 2023 09/23/2021, 12/09/2020, 11/11/2020 Albumin/Creatinine Ratio 10/26/2023 023, 12/08/2021, 02/26/2019, Additional history exists Diabetic Foot Exam 10/26/2023 10/26/2022, 0 11/24/2021, 02/12/2021, Additional history exists TSH 04/05/2024 04/05/2023, 07/0 03/2022, 04/08/2022, Additional history exists HbA1c 04/10/2024 10/11/2023, 0604/2023, 10/20/2022, Additional history exists Diabetic Eye Exam [...] Comments INR FINGERSTICK, POINT OF CARE STAT 03/14/2024 2:39 PM EDT Permanent atrial fibrillation (HCC) Paroxysmal atrial fibrillation (HCC) Anticoagulation management encounter documented in this encounter Results * INR FINGERSTICK, POINT OF CARE (03/14/2024 2:39 PM EDT) Fingerstick INR 1.8 INR 2:44 PM EDT [facility] [place] [facility] Blood 03/14/2024 2:39 PM EDT 03/14/2024 2:44 PM EDT Narrative [facility] - 03/14/2024 2:44 PM EDT Therapeutic ranges for non-operative patients: Prophylaxsis/treatment of DVT: (Range:2.0-3.0) Treatment of pulmonary embolism:(Range:2.0-3.0) Prevention of systemic embolism from: -tissue heart valves -acute myocardial infarction -valvular heart disease -atrial fibrillation (Range: 2.0-3.0) Mechanical prosthetic valves: (Range: 2.5-3.5) Ritchie Nikolai V, RPh LAB POINT OF CARE TE ST DOCKED DEVICE UNSOLICITED RESULTS [facility] [address] [place] [address] documented in this encounter Visit Diagnoses Diagnosis Atrial fibrillation, unspecified type (HCC)- Primary Permanent atrial fibrillation (HCC) Atrial fibrillation Paroxysmal atrial fibrillation (HCC) Atrial fibrillation Anticoagulation management encounter Encounter for therapeutic drug monitoring documented in this encounter Advance Directives * [...] Care Agent (per Health Care Power of Dent Remover document) DAVID Pearl Adult Child Second Alternate Health Care Agent (per Health Care Power of Dent Remover document) Care Teams Heating Element Winder Relationship Specialty Start Date End Date Chad Phoenix DO [address] [place] [address] PCP - General Family Medicine 06/02/18 documented as of this encounter
--- OUTSIDE RECORDS SUMMARY | 2024-07-17 15:47 | External Medical Summary | Summary of Care ---
Author Name Unknown Organization [facility] Address [address] [facility] [place] [address] Phone [phone] Care Team Providers Care Stretcher And Drier Name Role Phone Chad Phoenix DO Primary Care Provider [phone] Reason for Referral * Evaluate & Treat - Unlimited Visits (Within 10 days (routine)) - Authorized Specialty Diagnoses / Procedures Referred By Ga huddleston Referred To Contact Physical Therapy / Physical Medicine And Rehab Diagnoses Decreased range of motion (ROM) of shoulder Chad Phoenix DO [address] [place] [address] Referral ID Status Reason Start Date Expiration Date Visits Requested Visits Authorized [id number] Authorized Specialty Services Required 12/19/[phone] Question Answer Referral Priority Within 10 days (routine) Where should this appointment be scheduled? [facility] Reason for Visit * Reason Onset Date Comments Referral 12/19/2023 Encounter Details Date Type Department Care Team (Late st Contact Info) Description 12/19/2023 Telephone Family Practice [facility] [address] [place] [address] Chad Phoenix DO [address] [place] [address] Referral Allergies Active Allergy Reactions Criticality Noted Date Comments Glipizide 02/18/2021 Dizzy, confusion Penicillins Rash 10/13/2001 documented as of this encounter (statuses as of 03/19/2024) Medications Medication Sig Dispensed Refills Start Date End Date Status NEBULIZER MISCIndications:Ac marshall bronchitis, complicated use every 8 hrs as directed 1 Units 0 1 Active SPACER/AERO CHAMBER MOUTHPIECE MISCIndications:Sh ortness of breath use with inhalers as instructed [...] 06/26/18 Active triamcinolone acetonide (ARISTOCORT) 0.1 % ointmentIndication s:Eczema of right external ear Apply topically to affected area 2 times a day. To affected area on R external ear 60 g 9 Active OneTouch Verio In Vitro Strip (Glucose Blood) test once daily Dx. E11.9 100 Strip 3 1 Active Albuterol Sulfate (2.5 MG/3ML) 0.083% Inhalation Nebulization Solution (Proventil)Indicat ions:COPD, group B, by GOLD 2017 classification ([facility]) Inhale 1 Vial via nebulizer every 4 hours as needed for Wheezing or Shortness of Breath. 90 mL 3 3 Active oxygen IN GAS Increase to 3 LPM bled through CPAP with all sleep. T and B medical 1 Each 3 Active Vitamin D3 1.25 MG (19910 UT) Oral Capsule TAKE 1 CAPSULE BY MOUTH ONCE WEEKLY 12 Capsule 3 Active Nystatin 015385 UNIT/GM External Powder (Nystop) Apply topically to [...] Active Levothyroxine Sodium 75 MCG Oral Tablet (Levoxyl)Indicatio ns:Acquired hypothyroidism TAKE 1 TABLET BY MOUTH EVERY MORNING AT LEAST 30 MINUTES PRIOR TO BREAKFAST OR OTHER MEDICATIONS 90 Tablet 3 3 Active Warfarin Sodium 5 MG Oral Tablet (Jantoven)Indicati ons:Persistent atrial fibrillation (HCC) Take 1/2 to 1 tablet by mouth daily as directed by [facility] 90 Tablet 1 3 Active Pantoprazole Sodium 40 MG Oral Tablet Delayed Release (Protonix) TAKE 1 TABLET BY MOUTH ONCE DAILY 90 Tablet 3 4 Active Furosemide 40 MG Oral Tablet (Lasix)Indications :Heart failure, diastolic, due to HTN (HCC) Take one tablet by mouth in the morning and take one tablet by mouth before bedtime 180 Tablet 1 4 Active Rosuvastatin Calcium 20 MG Oral Tablet (Crestor) TAKE 1 TABLET BY MOUTH ONCE DAILY 90 Tablet 1 4 Active dilTIAZem HCl ER 240 MG Oral Capsule Extended Release 24 HourIndications:Lo ngstanding persistent atrial fibrillation (HCC) TAKE 1 CAPSULE BY MOUTH ONCE DAILY 90 Capsule 3 3 024 Discontinued Montelukast Sodium 10 MG Oral Tablet (Singulair) Take 1 Tablet by mouth in the morning. 90 Tablet 3 3 024 Discontinued Januvia 50 MG Oral TabletIndications: Type 2 diabetes mellitus with stage 3 chronic kidney disease, without long-term current use of insulin, unspecified whether stage 3a or 3b CKD (HCC) TAKE ONE TABLET BY MOUTH EVERY MORNING 90 Tablet 1 3 024 Discontinued(Re fill) documented as of this encounter (statuses as of 03/19/2024) Active Problems Problem Noted Date Diagnosed Date [...] mitral regurgitation by prior echocardi ogram 10/18/2017 snf 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 therapy 0 10/18/2017 [...] as of this encounter (statuses as of 03/19/2024) Resolved Problems Problem Noted Date Diagnosed Date Resolved Date Coronary artery disease invo lving [place] heart without angina pectoris 04/18/2019 10/29/2019 COPD, [...] 02/28/2012 08/29/2018 Overview: Per CKD protocol #1 snf current use of 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 therapy 03/05/2011 [...] as of this encounter (statuses as of 03/19/2024) Immunizations Name Administration Dates Next Due COVID-19 [...] encounter Miscellaneous Notes * Telephone Encounter - Bryanna Markham LPN - 12/22/2023 9:42 AM EDT Daughter would like to pickling solution maker referral as [place] far to travel. She will make the appt for pt. Daughter will pickling solution maker at the referral at assistant front desk manager. * Telephone Encounter - Chad Phoenix DO - 12/19/2023 12:02 PM EDT Order signed, please call to help schedule * Telephone Encounter - Marina Clarke LPN - 12/19/2023 10:23 AM EDT PT referral pended with Dx of decreased ROM shoulder. Please review and sign if appropriate. * Telephone Encounter - Radha Allen OSA - 12/19/2023 9:35 AM EDT Has the patient been seen for this problem? (Y/N)?: yes If No, an appt needs to be scheduled before a referral will be placed (exception: proceed with referral request if referral request is for a yearly routine appointment with speciality) Patient Name: Tori May Patient Primary care provider: Chad Phoenix, DO Does this need to be an insurance referral (Y/N)?: yes If Yes, does the insurance referral need to be placed into the [employer] system? Name of preferred specialist: [facility] Type of specialist: Physical Therapy [place] [facility] Phone #: [phone] Specialist's Fax #: Reason for visit: trouble lifting arms Date of visit: waiting on referral documented in this encounter Plan of Treatment Upcoming Encounters Date Type Department Care Team (Late st Contact Info) Description 04/05/2024 3:00 PM EDT Office Visit Cardiology, [facility] [address] [place] [address] Yeni Laureano CRNP [address] [place] [address] 05/04/2024 2:50 PM EDT Anticoagulation Pharmacy, [facility] 200 [place] [address] Pharmacist1, [facility] 200 [facility] [place] [address] 05/04/2024 3:00 PM EDT Office Visit Nephrology, [facility] [place], [place] [address] Eddie Suh MD 200 [facility] [place] [address] 05/15/2024 10:00 AM EDT Office Visit Podiatry [facility] [address] [place] [address] Bryanna Guzman DPM [address] [place] [address] 05/16/2024 2:20 PM EDT Office Visit Family Practice [facility] [address] [facility] [place] [address] Gaby Holland PA-C [address] [facility] [address] Scheduled Referrals Name Type Priority Associated Diagnoses Orde r Schedule PHYSICAL THERAPY REFERRAL OP Referral Within 10 days (routine) Decreased range of motion (ROM) of shoulder Ordered: 12/19/2023 Health Maintenance Due Date Last Done Comments [...] 12/17/2015, 02/16/2010 Influenza Vaccine (FLU shot) Completed 05/2023, 07/25/2023, 06/30/2022, Additional history exists GARDASIL-HPV IMMUNIZATION SERIES Aged [...] as of this encounter Visit Diagnoses Diagnosis Decreased range of motion (ROM) of shoulder- Primary documented in this encounter Advance Directives * [...] Care Agent (per Health Care Power of Transitional Nurse document) DAVID Ryanne Adult Child Second Alternate Health Care Agent (per Health Care Power of Transitional Nurse document) Care Teams Stretcher And Drier Relationship Specialty Start Date End Date Chad Phoenix DO [address] [place] [address] PCP - General Family Medicine 06/02/18 documented as of this encounter
--- OUTSIDE RECORDS SUMMARY | 2024-07-17 15:47 | External Medical Summary ---
Author Name Unknown Address Unknown Organization K09:[facility] [place] [address] Laboratory Report Ordering Provider Test Date Status THANIA ALBERTO V 05/02/2024 12:48:16 Final Therapeutic ranges for non-o perative patients:
Prophylaxsis/treatment of DVT: (Range:2.0-3.0)
Treatment of pulmonary embolism:(Range:2.0-3.0)
Prevention of systemic embolism from:
-tissue heart valves
-acute myocardial infarction
-valvular heart disease
-atrial fibrillation
(Range: 2.0-3.0)
Mechanical prosthetic valves: (Range: 2.5-3.5) Observation Date Value Abnormality Reference (Units ) Status INR in Capillary blood by Coagulation assay 05/02/2024 12:48:16 1.7 (INR) Final Performing Location [facility] [place] [address]
--- OUTSIDE RECORDS SUMMARY | 2024-07-17 15:47 | External Medical Summary | Summary of Care ---
Author Name Unknown Organization [facility] Address [address] [place] [address] Phone [phone] Care Team Providers Care Pouncing Machine Operator Name Role Phone JorgitoChad hager Primary Care Provider [phone] Reason for Visit * Reason Comments Follow Up Follow up Encounter Details Date Type Department Care Team (Late st Contact Info) Description 04/05/2024 3:00 PM EDT Office Visit Cardiology, [facility] [address] [place] [address] Yeni Laureano CRNP [address] [place] [address] Paroxysmal atrial fibrillation (HCC)*; Heart failure, diastolic, due to HTN (HCC); Cardiac pacemaker in situ; DYSLIPIDEMIA, GOAL LDL BELOW 100 Allergies Active Allergy Reactions Criticality Noted Date Comments Glipizide 02/18/2021 Dizzy, confusion Latex Rash 04/05/2024 Penicillins Rash 10/13/2001 documented as of this encounter (statuses as of 04/12/2024) Medications Medication Sig Dispensed Refills Start Date End Date Status NEBULIZER MISCIndications:Ac vandana bronchitis, complicated use every 8 hrs as [...] and B medical 1 Each 3 Active Metoprolol Succinate ER 100 MG Oral Tablet Extended Release 24 Hour (toPROL XL) TAKE 1 TABLET BY MOUTH TWICE DAILY 180 Tablet 3 3 Active Levothyroxine Sodium 75 MCG Oral Tablet (Levoxyl)Indicatio ns:Acquired hypothyroidism TAKE 1 TABLET BY MOUTH EVERY MORNING AT LEAST 30 MINUTES PRIOR TO BREAKFAST OR OTHER MEDICATIONS 90 Tablet 3 3 Active Warfarin Sodium 5 MG Oral Tablet (Jantoven)Indicati ons:Persistent atrial fibrillation (HCC) Take 1/2 to 1 tablet by mouth daily as directed by [facility] coumadin clinic 90 Tablet 1 3 Active [...] 3 4 Active Januvia 50 MG Oral TabletIndications: Type 2 diabetes mellitus with stage 3 chronic kidney disease, without long-term current use of insulin, unspecified whether stage 3a or 3b CKD (HCC) Take 1 Tablet by mouth in the morning. In the morning.. 30 Tablet 5 4 Active Isosorbide Mononitrate ER 30 MG Oral Tablet Extended Release 24 Hour (Imdur) Take 0.5 Tablets by mouth in the morning. In the morning.. 4 Active Vitamin D3 1.25 MG (26343 UT) Oral Capsule TAKE 1 CAPSULE BY MOUTH ONCE WEEKLY 12 Capsule 3 024 Discontinued([place]quise fleming preference/disc ontinuation) Nystatin 346946 UNIT/GM External Powder (Nystop) Apply topically to affected area 3 times a day. 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 0 10/18/2017 [...] as of this encounter (statuses as of 04/12/2024) Resolved Problems Problem Noted Date Diagnosed Date Resolved Date Coronary artery disease invo lving [place] heart without angina pectoris 04/18/2019 10/29/2019 COPD, [...] 02/28/2012 08/29/2018 Overview: Per CKD protocol #1 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 therapy 03/05/2011 [...] as of this encounter (statuses as of 04/12/2024) Immunizations Name Administration Dates Next Due COVID-19 [...] Sign Reading Time Taken Comments Blood Pressure 104/46 04/05/2024 2:44 PM EDT Pulse 64 04/05/2024 2:44 PM EDT Temperature - - Respiratory Rate 16 04/05/2024 2:44 PM EDT Oxygen Saturation - - Inhaled Oxygen Concentration - - Weight 80.9 kg (178 lb 6.4 oz) 04/05/2024 2:44 P M EDT Height - - Body Mass Index 37.29 11/09/2023 2:47 PM EST documented in this encounter Patient Instructions * Patient Instructions* Yeni Laureano CRNP - 04/05/2024 3:29 PM EDT Reduce Imdur (Isosorbide) to 15mg Daily (1/2 tablet) documented in this encounter Progress Notes * Yeni Laureano CRNP - 04/05/2024 3:00 PM EDT 04/05/2024 Cardiology Follow Up Primary Portable Track Crew Chief: REGINALDO; formerly Dr. Juan Cardiac Problems: 1. 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 Tachy-pham syndromestatus post permanent pacemaker 3. 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 Chronic diastolic heart failure 5. Diabetes and hypertension 6. Dyslipidemia 7. Chronic kidney disease HPI: Tori May is a 89 year old female that presents for routine cardiology follow up. Last seen in our office by Dr. Juan approximately 1 year ago doing well from a cardiac perspective. Presents today feeling well overall. Does note some low blood pressures. Denies any chest pain, pressure, palpitations, shortness of breath, PND, presyncope or syncope. EKG obtained today demonstrates V-paced rhythm. 68 beats per minute. Most recent device interrogation shows normal function, no events. Reports compliance on all medication therapies, only concern is low blood pressures on current regimen. REVIEW OF SYSTEMS: See HPI for pertinent positives. All others negative other than those noted in the HPI. CONSTITUTIONAL: No change in weight, No weakness, No fatigue and No fevers, No sweats or chills. PULMONARY: No cough, sputum, or hemoptysis, No wheezing, No shortness or breath and No recent change in breathing. CARDIOVASCULAR: No chest pain, No dyspnea on exertion, No edema, No palpitations and No syncope. GASTROINTESTINAL: No abdominal pain, No change in bowel habits, No significant heartburn, No nausea, No vomiting, No diarrhea, No constipation, No blood in stools or black tarry stools. No dysphagia. HEMATOLOGIC: No abnormal bleeding and No bruising. NEUROLOGICAL: Normal balance, No headaches and No weakness. Review of patient's allergies indicates: Allergen Reactions Glipizide Dizzy, confusion Latex Rash Penicillins Rash Current Outpatient Medications Medication Sig Dispense Refill [...] on R external ear 60 g 0 Albuterol Sulfate (2.5 MG/3ML) 0.083% Inhalation Nebulization Solution (Proventil) Inhale 1 Vial via nebulizer every 4 hours as needed for Wheezing or Shortness of Breath. 90 mL 3 Metoprolol Succinate ER 100 MG Oral [...] BREAKFAST OR OTHER MEDICATIONS 90 Tablet 3 Warfarin Sodium 5 MG Oral Tablet (Jantoven) Take 1/2 to 1 tablet by mouth daily as directed by [facility] coumadin clinic 90 Tablet 1 Pantoprazole Sodium 40 MG Oral Tablet Delayed [...] morning. In the morning.. 30 Tablet 5 NEBULIZER MISC use every 8 hrs as directed 1 Units 0 SPACER/AERO CHAMBER MOUTHPIECE MISC use with inhalers as instructed 1 Device 2 ONETOUCH ULTRASOFT LANCETS MISC Test up to 4 times daily 5 Box Dosing Unit 10 OneTouch Verio In Vitro Strip (Glucose Blood) test once daily Dx. E11.9 100 Strip 3 oxygen IN GAS Increase to 3 LPM bled through CPAP with all sleep. T and B medical 1 Each 0 No current facility-administered medications for this visit. Past Medical History: Diagnosis Date Asthma, allergic [...] 30-59 ML/MIN) 02/28/2012 Per CKD protocol #1 USP 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 therapy 10/18/2017 ICD-10 update of inactive term Moderate mitral regurgitation by prior echocardiogram 10/18/2017 Obesity, BMI not known 11/30/2002 Paroxysmal SVT (supraventricular tachycardia) (HCC) 11/30/2002 Paroxysmal SVT (supraventricular tachycardia) (HCC) 11/30/2002 Tachycardia associated with angina Family History Problem Relation Name Age of Onset Mental Disorder Mother dementia Cancer Mother breast Social History Socioeconomic History Marital status: Spouse name: Rusty Number of children: 3 Years of education: 16 Occupational History Occupation: retired Tobacco Use Smoking status: Never Passive exposure: Past Smokeless tobacco: Never Vaping Use Vaping status: Never Used Substance and Sexual Activity Alcohol use: Yes Comment: occasional Drug use: No Sexual activity: Yes Partners: Male Other Topics Concern Blood Transfusions Yes Seat Belt Yes Social Determinants of Health Financial Resource Strain: Low Risk (09/21/2023) Financial Resource Strain Do you have any trouble paying for your medications, or do you think you might in the future? (Adult - for ages 18 years and over): No Food Insecurity: No Food Insecurity (09/21/2023) Food Insecurity Do you need food for this week? (Adult - for ages 18 years and over): No Transportation Needs: No Transportation Needs (09/21/2023) Transportation Needs Do you have trouble getting a ride to medical visits or work? (Adult - for ages 18 years and over):Never True Social Connections: Socially Integrated (09/21/2023) Social Connections How often do you feel lonely or isolated from those around you? (Adult - for ages 18 years and over): Never Housing Stability: Low Risk (09/21/2023) Housing Stability Do you currently live in a mcc or have no steady place to sleep at night? (Adult - for ages 18 years and over): No Do you think you are at risk of becoming homeless? (Adult - for ages 18 years and over): No OBJECTIVE/PHYSICAL EXAMINATION: BP 104/46 | Pulse 64 | Resp 16 | Wt 80.9 kg (178 lb 6.4 oz) | BMI 37.29 kg/m | BSA 1.82 m General: No acute distress. A+Ox3. HEENT: Normocephalic. Atraumatic. PERRL. EOMI. Conjunctiva and sclera clear. NECK: No carotid bruits. No JVD. Carotid upstrokes are brisk. Heart: RRR. S1 and S2 noted. No murmur. No rubs or gallops. PMI non displaced. Lungs: Clear to auscultation. No wheezes.No rhonchi. No rales. Abdomen: Normal bowel sounds. Soft. Nontender. No masses or organomegaly. No abdominal bruits. Extremities: No edema. No clubbing or cyanosis. Pulses: radial=2/4, posterior tibial=2/4, dorsalis pedis = 2/4. NEURO: No focal deficits. PSYCH: Appropriate affect and insight. 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 There was atrial fibrillation during the examination. Compared to last available study changes are noted as follows: Pulmonary hypertension has increasedfrom 54 to 73 mmHg. Normal LV chamber size and wall thickness. The septal motion is abnormal consistent with right ventricular pressure and volume overload. The regional left ventricular wall motion is otherwise normal. Calculated LV ejection Fraction = 58% (bi-plane method of discs). Grade 3 diastolic dysfunction consistent with restrictive physiology. Mild aortic valve sclerosis without stenosis. Mild aortic regurgitation. Moderate mitral regurgitation. Severe tricuspid regurgitation. Severe biatrial enlargement. Severe pulmonary hypertension is present. The left ventricular cavity is D shapped due to increasedRV systolic pressure. Dilated IVC with reduced collapsability with sniff indicates an elevated right atrial pressure of 15mmHg. The estimated pulmonary artery systolic pressure is 73mm Hg. ASSESSMENT/PLAN: 89 year old year old female 1. Paroxysmal atrial fibrillation (HCC) -Doing well from a cardiac perspective. -Euvolemic on exam -Recent device interrogation shows no events -Continue Diltiazem, Toprol xl and Warfarin -No bleeding concerns - EKG 2. Heart failure, diastolic, due to HTN (HCC) -Euvolemic on exam. -Blood pressures have been trending low. Concern to increase falls risk. -Continue Diltiazem and Toprol at current dose. -Reduce Imdur to 15mg daily and assess response. 3. Cardiac pacemaker in situ -Normal device interrogation -Continue with routine/remote follow up 4. DYSLIPIDEMIA, GOAL LDL BELOW 100 -Recommend yearly lipid panel -Continue crestor as per current regimen DISPOSITION: Follow up 6 months or if symptoms worsen/fail to improve. All questions were answered to the patients satisfaction. Patient advised to report to ED with any and all emergencies. The patient agrees to the above plan and will call with additional questions or concerns. VI[facility], [address] [place] [address] I spent a total of 35 minutes on the date of service in preparation, delivery, and documentation ofthe care provided to Tori May excluding any time spent in the performance of separately billed services. This chart was completed in part utilizing [employer] Speech Voice Recognition Software. Grammatical errors, random word insertions, pronoun errors, and incomplete sentences are an occasional consequence of this system due to software limitations, ambient noise, and hardware issues. Any formal questions or concerns about the content, text, or information contained within the body of this dictation should be directly addressed to the provider for clarification. documented in this encounter Procedure Notes * Gil Boyce MD - 04/05/2024 3:03 PM EDTAssociated Order(s): EKG REASON FOR STUDY: annual;annual CONCLUSIONS: Ventricular-paced rhythm Abnormal ECG When compared with ECG of 30-Sep-2017 12:31, Vent. rate has increased by 7 bpm Ventricular Rate: 68 Atrial Rate: 59 QRS Duration: 200 QT/QTc: 486/516 ms P-R-T Marina: 0 : -72 : 106 degrees documented in this encounter Nursing Notes * Shavon Mariee MED ASSIST - 04/05/2024 2:40 PM EDT Chief Complaint Patient presents with Follow Up Follow up Examination Room: 3 Name: Tori May Date of : (1935). Reason for Visit: follow up Interim Hospitalization(s): denies Problems/Concerns: denies Chest Pain/SOB: denies [facility] Discussed: Not applicable [facility] is a way you can talk to your provider online through e-mail. Would you like to sign up? I can activate it for you? ALREADY ACTIVE Patient was instructed to not get up on the exam table until directed and assisted by their provider; patient is to remain seated in the chair/ wheelchair/ exam table for fall prevention and safety reasons. Patient is aware to have assistance to step down off exam table with personnel. Patient voiced full comprehension of instructions. documented in this encounter Plan of Treatment Upcoming Encounters Date Type Department Care Team (Late st Contact Info) Description 05/04/2024 2:50 PM EDT Anticoagulation Pharmacy, [facility] [address] [place] [id number] Pharmacist1, [facility] [address] [place] [id number] 05/04/2024 3:00 PM EDT Office Visit Nephrology, [facility] [address] [place] [id number] Eddie Suh MD [address] [place] [address] [id number] 05/15/2024 10:00 AM EDT Office Visit Podiatry [facility] [address] [place] [address] Bryanna Guzman DPM [address] [place] [address] 05/16/2024 2:20 PM EDT Office Visit Family Practice [facility] [address] [place] [address] Gaby Holland PA-C [address] [place] [id number] 10/15/2024 3:00 PM EST Office Visit Cardiology, [facility] [address] [place] [address] Yeni Laureano CRNP [address] [place] [address] Health Maintenance Due Date Last Done Comments Zoster Vaccines (1 of 2) 1985 COVID-19 Vaccine (4 - season) 2023 09/23/2021, 12/09/2020, 11/11/2020 Albumin/Creatinine Ratio [...] Procedure Name Priority Date/Time Associated Diagnosis Comments [place] ECG ROUTINE ECG W/LEAST 12 LDS W/I&R Routine 04/05/2024 3:03 PM EDT Paroxysmal atrial fibrillation (HCC) documented in this encounter Results * EKG (04/05/2024 3:03 PM EDT) 04/05/2024 3:03 PM EDT Narrative Procedure Note Gil Boyce MD - 04/05/2024 3:03 PM EDT REASON FOR STUDY: annual;annual CONCLUSIONS: Ventricular-paced rhythm Abnormal ECG When compared with ECG of 30-Sep-2017 12:31, Vent. rate has increased by 7 bpm Ventricular Rate: 68 Atrial Rate: 59 QRS Duration: 200 QT/QTc: 486/516 ms P-R-T Marina: 0 : -72 : 106 degrees Yeni GAY 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
--- OUTSIDE RECORDS SUMMARY | 2024-07-17 15:47 | External Medical Summary | Summary of Care ---
Author Name Unknown Organization [facility] Address [address] [facility] [place] [address] Phone [phone] Care Team Providers Care Clay Artist Name Role Phone Chad Phoenix Primary Care Provider [phone] Reason for Visit * Reason Comments Follow Up Noct HypoxemiaAcute Resp Failure with Hypoxia Encounter Details Date Type Department Care Team (Late st Contact Info) Description 04/26/2024 3:00 PM EDT Office Visit Pulmonary Medicine, [facility] [address] [facility] [place] [address] Krunal Sherwood MD [address] [facility] [place] [address] Chronic respiratory failure with hypoxia (HCC)* Allergies Active Allergy Reactions Criticality Noted Date Comments Glipizide 02/18/2021 Dizzy, confusion Latex Rash 04/05/2024 Penicillins Rash 10/13/2001 documented as of this encounter (statuses as of 04/26/2024) Medications Medication Sig Dispensed Refills Start Date [...] tablet by mouth daily as directed by [facility] 90 Tablet 04/25/2024 Active documented as of this encounter (statuses as of 04/26/2024) Active Problems Problem Noted Date Diagnosed Date [...] mitral regurgitation by prior echocardi ogram 10/18/2017 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 [...] as of this encounter (statuses as of 04/26/2024) Resolved Problems Problem Noted Date Diagnosed Date Resolved Date Coronary artery disease invo lving [place] heart without angina pectoris 04/18/2019 10/29/2019 COPD, [...] CKD protocol #1 correction current use of 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 therapy 03/05/2011 [...] as of this encounter (statuses as of 04/26/2024) Immunizations Name Administration Dates Next Due COVID-19 [...] Sign Reading Time Taken Comments Blood Pressure 100/48 04/26/2024 2:41 PM EDT Pulse 79 04/26/2024 2:41 PM EDT Temperature 36.3 C (97.4 F) 04/26/2024 2:41 PM ED T Respiratory Rate 16 04/26/2024 2:41 PM EDT Oxygen Saturation 95% 04/26/2024 2:41 PM EDT Inhaled Oxygen Concentration - - Weight 80.3 kg (177 lb) 04/26/2024 2:41 PM EDT Height 147.3 cm (4' 10") 04/26/2024 2:41 PM EDT Body Mass Index 36.99 04/26/2024 2:41 PM EDT documented in this encounter Progress Notes * Krunal Sherwood MD - 04/26/2024 3:00 PM EDT 04/26/2024 Pulmonary Medicine, [address] [place] [address] [id number] Tori May 1935 female 89 year old Attending Physician Documentation: 89-year-old female, history of COPD, diabetes mellitus, recurrent bronchitis episodes in the past, history of COVID viral illness, hypoxic respiratory failure presenting for follow-up evaluation. Describes stable respiratory symptoms status, denies interval hospitalizations or emergency room visits. Compliant with home oxygen therapy. Daughter requesting portable oxygen concentrator due to frail body habitus unable to carry cylinders. Minimal expectoration reported. Physical examination shows class 3 throat, adequate air entry, minimal wheezing, regular cardiac rhythm, no evidence of lower extremity edema and nonlateralizing Neuro examination. Importance of symptom monitoring, maintaining physical activity status, avoiding sick contacts and compliance with home oxygen therapy was discussed. New order for 6 minute walk test to assess for conserving device was placed. Pulmonary clinic follow-up recommended in 1 year. Patient was advised to contact the office with any change in respiratory symptoms status. DATA Chest X-ray: Performed on 03/11/2022, per [facility] report: moderate to markedly enlarged heart with pacemaker in place. Very mild central vascular congestion. No peripheral interstitial edema seen. No evidence of pleural effusion. No alveolar opacities. Assessment/ Recommendations and Plans: 6 minute walk test ordered, assess for conserving device Continue with current bronchodilator regimen. Maintain physical activity status Pulmonary clinic follow-up in 1 year Follow Up: Return in about 1 year (around 04/26/2025) for Clinic Visit. | For: Clinic Visit | Check-out note: F/u 1 year Krunal Sherwood MD Subjective CC: Chief Complaint Patient presents with Follow Up Noct Hypoxemia Acute Resp Failure with Hypoxia HPI: Nursing Notes: Kyara Cuellar LPN 04/26/24 1507 Signed Chief Complaint Patient presents with Follow Up Noct Hypoxemia Acute Resp Failure with Hypoxia MMRC Dyspnea Scale = 2 (On level ground, I walk slower than people of the same age because of breathlessness or have to stop for breath when walking at my own) Interm History/Respiratory Symptoms Cough: clear throat Hemoptysis: no Sinus Symptoms: no Hospitalizations: no ED Trips: no Triggers: no Nocturnal: no CPAP/BiPAP/O2: Cpap with O2 @ 3 lpm DME Supplier: [employer] O2 Sat: 95 % After ambulation O2 Sat: 95 % Objective Filed Vitals: 04/26/24 1441 BP: 100/48 Pulse: 79 Resp: 16 Temp: 36.3 C (97.4 F) TempSrc: Tympanic SpO2: 95% Weight: 80.3 kg (177 lb) Height: 1.473 m (4' 10") Exam: Const: No signs of acute distress present. Head/Face: Normal on inspection. Eyes: Conjunctivae clear. Pupils equal round and reactive to light. ENMT: Oropharynx: No erythema, exudate or masses. Posterior pharynx is normal. Neck: Supple and symmetric. Resp: Respiratory examination as outlined above CV: Rate is regular. Rhythm is regular. No heart murmur appreciated. Extremities: No edema of the lower limbs bilaterally. Skin: Skin is warm and dry. Neuro: Coordination normal. No involuntary movement. Psych: Patient's attitude is cooperative. Mood is normal. Affect is normal. Tests reviewed with the patient: No imaging results in the last 6 months Available Radiologic data was reviewed by me in PACS. The images were shown to the patient and findings were discussed with the patient. HOME MEDICATIONS: Isosorbide Mononitrate ER 30 MG Oral Tablet Extended Release 24 Hour (Imdur) Metoprolol Succinate ER 100 MG Oral Tablet Extended Release 24 Hour (toPROL XL) Warfarin Sodium 5 MG Oral Tablet (Jantoven) Januvia 50 MG Oral Tablet dilTIAZem HCl ER 240 MG Oral Capsule Extended Release 24 Hour Montelukast Sodium 10 MG Oral Tablet (Singulair) Furosemide 40 MG Oral Tablet (Lasix) Rosuvastatin Calcium 20 MG Oral Tablet (Crestor) Pantoprazole Sodium 40 MG Oral Tablet Delayed Release (Protonix) Levothyroxine Sodium 75 MCG Oral Tablet (Levoxyl) oxygen IN GAS Albuterol Sulfate (2.5 MG/3ML) 0.083% Inhalation Nebulization Solution (Proventil) OneTouch Verio In Vitro Strip (Glucose Blood) triamcinolone acetonide (ARISTOCORT) 0.1 % ointment acetaminophen (TYLENOL) 500 MG Tablet ONETOUCH ULTRASOFT LANCETS MIS MAGNESIUM OXIDE 400 MG PO TABS SPACER/AERO CHAMBER MOUTHPIECE MISC NEBULIZER MISC ROS: No reported history of Hemoptysis, Hematemesis, Melena No reported history of Dysuria, Hematuria, Flank Pain No reported history of chronic headache, seizures No reported history of Fall or trauma . No reported history of recent change in weight or appetite. Past Medical History: Diagnosis Date Asthma, allergic Atrial fibrillation (HCC) 03/05/2011 Cardiac pacemaker in situ 06/23/2017 CARDIOVAS SYS SYMP NEC-carotid bruit 11/30/2002 CPAP (continuous positive airway pressure) dependence setting 4 DM type 2, goal A1C 7-8 03/04/2014 Dyslipidemia, goal LDL below 160 Gastric ulcer Heart failure, diastolic, due to HTN ([facility]) 12/30/2014 Hypertensive heart disease with diastolic heart failure and stage 3 chronic kidney disease (HCC) 05/16/2018 Hypothyroidism clinically euthyroid KIDNEY DISEASE, CHRONIC, STAGE III (GFR 30-59 ML/MIN) 02/28/2012 Per CKD protocol #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 10/18/2017 ICD-10 update of inactive term Moderate mitral regurgitation by prior echocardiogram 10/18/2017 Obesity, BMI not known 11/30/2002 Paroxysmal SVT (supraventricular tachycardia) (HCC) 11/30/2002 Paroxysmal SVT (supraventricular tachycardia) (HCC) 11/30/2002 Tachycardia associated with angina Past Surgical History: Procedure Laterality Date ABLATE HEART DYSRHYTHM FOCUS 03/27/2010 CATHETER ABLATION-SVT performed by NATASHA NAM at [facility] ARTHROPLASTY KNEE TOTAL B/LTKR (Total Knee Replacement) COLONOSCOPY, DIAGNOSTIC (RECTUM) 10/07/2020 Multiple proximal colon AVM's, diverticulosis / [facility] EGD, FLEXIBLE, DIAGNOSTIC 10/07/2020 benign gastric polyp, hiatal hernia / [facility] EGD, W/ENDOSCOPIC US N/A 02/21/2015 serous pancreatic cyst. fatty liver/ESOPHAGOGASTRODUODENOSCOPY (EGD), FLEXIBLE, TRANSORAL, ENDOSCOPIC ULTRASOUND performed by Larry Daugherty DO at OR [facility] BRONCHOSCOPY TRANSBRONCHIAL NEEDLE ASPIRATION BIOPSY WNL HEMILAMINECTOMY, [...] left breast mass by Dr. Linda Daugherty Social History Socioeconomic History Marital status: Spouse [...] Stability Do you currently live in a usp or have no steady place to sleep at night? (Adult - for ages 18 years and over): No Do you think you are at risk of becoming homeless? (Adult - for ages 18 years and over): No Family History Problem Relation Name Age of Onset Mental Disorder Mother dementia Cancer Mother breast Review of patient's allergies indicates: Allergen Reactions Glipizide Dizzy, confusion Latex Rash Penicillins Rash documented in this encounter Nursing Notes * Kyara Cuellar LPN - 04/26/2024 2:43 PM EDT Chief Complaint Patient presents with Follow Up Noct Hypoxemia Acute Resp Failure with Hypoxia MMRC Dyspnea Scale = 2 (On level ground, I walk slower than people of the same age because of breathlessness or have to stop for breath when walking at my own) Interm History/Respiratory Symptoms Cough: clear throat Hemoptysis: no Sinus Symptoms: no Hospitalizations: no ED Trips: no Triggers: no Nocturnal: no CPAP/BiPAP/O2: Cpap with O2 @ 3 lpm DME Supplier: [employer] O2 Sat: 95 % After ambulation O2 Sat: 95 % documented in this encounter Plan of Treatment Upcoming Encounters Date Type Department Care Team (Late st Contact Info) Description 05/02/2024 1:20 PM EDT Anticoagulation Pharmacy, [facility] [place] [address] [place] [address] [address] Pharmacist1, [facility] [address] [place] [address] 05/04/2024 3:00 PM EDT Office Visit Nephrology, [facility] [address] [place] [address] Eddie Suh MD [address] [place] [address] 05/15/2024 10:00 AM EDT Office Visit Podiatry [facility] [address] [place] [address] Bryanna Guzman DPM [address] [place] [address] 06/05/2024 2:00 PM EDT Office Visit Family Practice [facility] [address] [place], [place] [address] Chad Phoenix DO [address] [place] [address] 10/15/2024 3:00 PM EST Office Visit Cardiology, [facility] [address] [place] [address] Yeni Laureano CRNP [address] [place] [address] 04/30/2025 3:00 PM EDT Office Visit Pulmonary Medicine, [facility] [address] [place] [address] Krunal Sherwood MD [address] [place] [address] Scheduled Orders Name Type Priority Associated Diagnoses Orde r Schedule PULMONARY STRESS TESTING Procedures Routine Chronic respiratory failure with hypoxia (HCC) Expected: 04/27/2024, Expires: 05/27/2025 Health Maintenance Due Date Last Done Comments [...] Care Agent (per Health Care Power of Plastic Parts Fabricator document) DAVID Ryanne Adult Child Second Alternate Health Care Agent (per Health Care Power of Plastic Parts Fabricator document) Care Teams Clay Artist Relationship Specialty Start Date End Date Chad Phoenix DO [address] [place] [address] PCP - General Family Medicine 06/02/18 documented as of this encounter
--- OUTSIDE RECORDS SUMMARY | 2024-07-17 15:47 | External Medical Summary | Summary of Care ---
Author Name Unknown Organization [facility] Address [address] [facility] [place] [place] [address] Phone [phone] Care Team Providers Care Senior Network Security Engineer Name Role Phone JorgitoChad hager Primary Care Provider [phone] Encounter Details Date Type Department Care Team (Late st Contact Info) Description 02/29/2024 Population Health External Data Unspecified Department Allergies Active Allergy Reactions Criticality Noted Date Comments Glipizide 02/18/2021 Dizzy, confusion Penicillins Rash 10/13/2001 documented as of this encounter (statuses as of 02/29/2024) Medications Medication Sig Dispensed Refills Start Date [...] GOLD 2017 classification ([facility]) Inhale 1 Vial via nebulizer every 4 hours as needed for Wheezing or Shortness of Breath. 90 mL 3 10/20/2022 Active oxygen IN GAS Increase to 3 LPM bled through CPAP with all sleep. [employer] 1 Each 12/20/2022 Active Vitamin D3 1.25 MG (61261 UT) Oral Capsule TAKE 1 CAPSULE BY MOUTH ONCE WEEKLY 12 Capsule 01/17/2023 Active Nystatin 288119 UNIT/GM External Powder (Nystop) Apply topically to [...] tablet by mouth daily as directed by 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 0 10/18/2017 [...] as of this encounter (statuses as of 02/29/2024) Resolved Problems Problem Noted Date Diagnosed Date [...] 08/29/2018 Overview: Per CKD protocol #1 termite treater 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 current use of 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 therapy [...] as of this encounter (statuses as of 02/29/2024) Immunizations Name Administration Dates Next Due COVID-19 [...] Care Team (Late st Contact Info) Description 03/14/2024 2:30 PM EDT Anticoagulation Pharmacy, [facility] [address] [place] [address] Pharmacist1, [facility] [address] [place] [address] 04/05/2024 3:00 PM EDT Office Visit Cardiology, [facility] [address] [place] [address] Yeni Laureano CRNP [address] [place] [address] 05/04/2024 3:00 PM EDT Office Visit Nephrology, [facility] [address] [place] [address] Eddie Suh MD [address] [place] [address] 05/15/2024 10:00 AM EDT Office Visit Podiatry [facility] [address] [place] [address] Bryanna Guzman DPM [address] [place] [address] 05/16/2024 2:20 PM EDT Office Visit Family Practice [facility] [place] [address] [place] [address] Gaby Holland PA-C [address] [place] [address] Health Maintenance Due Date Last Done Comments [...] Care Agent (per Health Care Power of Infant Childcare Provider document) DAVID Pearl Adult Child Second Alternate Health Care Agent (per Health Care Power of Infant Childcare Provider document) Care Teams Senior Network Security Engineer Relationship Specialty Start Date End Date Chad Phoenix DO [address] [place] [address] PCP - General Family Medicine 06/02/18 documented as of this encounter
--- OUTSIDE RECORDS SUMMARY | 2024-07-17 15:47 | External Medical Summary ---
Author Name Unknown Address Unknown Organization K09[facility] [place] [address] Laboratory Report Ordering Provider Test Date Status THANIA ALBERTO V 03/14/2024 14:39:04 Final Therapeutic ranges for non-o perative patients:
Prophylaxsis/treatment of DVT: (Range:2.0-3.0)
Treatment of pulmonary embolism:(Range:2.0-3.0)
Prevention of systemic embolism from:
-tissue heart valves
-acute myocardial infarction
-valvular heart disease
-atrial fibrillation
(Range: 2.0-3.0)
Mechanical prosthetic valves: (Range: 2.5-3.5) Observation Date Value Abnormality Reference (Units ) Status INR in Capillary blood by Coagulation assay 03/14/2024 14:39:04 1.8 (INR) Final Performing Location [facility] [place] [address]
--- OUTSIDE RECORDS SUMMARY | 2024-07-17 15:47 | External Medical Summary | Summary of Care ---
Author Name Unknown Organization [facility] Address [address] [facility] [address] Phone [phone] Care Team Providers Care Nursing Teacher Name Role Phone Letitia Phoenix DO Primary Care Provider [phone] Reason for Visit * Reason Comments eRx-Medication Refill Encounter Details Date Type Department Care Team (Late st Contact Info) Description 04/24/2024 Refill General Internal Medicine [facility] [address] [place] [address] Letitia Phoenix DO [address] [place] [address] Persistent atrial fibrillation (HCC) Allergies Active Allergy Reactions Criticality Noted Date Comments Glipizide 02/18/2021 Dizzy, confusion Latex Rash 04/05/2024 Penicillins Rash 10/13/2001 documented as of this encounter (statuses as of 04/25/2024) Medications Medication Sig Dispensed Refills Start Date [...] to HTN ([facility]) Take one tablet by mouth [...] unspecified whether stage 3a or 3b CKD ([facility]) Take 1 Tablet [...] EVERY MORNING 90 Tablet 1 4 Active Warfarin Sodium 5 MG Oral Tablet (Jantoven)Indicatio ns:Persistent atrial fibrillation (HCC) Take 1/2 to 1 tablet by mouth daily as [facility] 90 Tablet 1 4 Active Metoprolol Succinate ER 100 MG Oral Tablet Extended Release 24 Hour (toPROL XL) TAKE 1 TABLET BY MOUTH TWICE DAILY 180 Tablet 3 3 04/25/20 24 Discontinued Warfarin Sodium 5 MG Oral Tablet (Jantoven)Indicatio ns:Persistent atrial fibrillation (HCC) Take 1/2 to 1 tablet by mouth daily as directed by [facility] coumadin [facility] 90 Tablet 1 3 04/25/20 24 Discontinued Isosorbide Mononitrate ER 30 MG Oral Tablet Extended Release 24 Hour (Imdur) Take 0.5 Tablets by mouth in the morning. In the morning.. 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 Obesity, morbid (more [...] as of this encounter (statuses as of 04/25/2024) Immunizations Name Administration Dates Next Due COVID-19 [...] encounter Miscellaneous Notes * Telephone Encounter - Beckie Blanco RPh - 04/25/2024 4:55 PM EDT * Telephone Encounter - Beckie Blanco RPh - 04/25/2024 4:55 PM EDTSigned Prescriptions: Disp Refills Metoprolol Succinate ER 100 MG Oral Tablet*180 Ta*1 Sig: TAKE 1 TABLET BY MOUTH TWICE DAILY Authorizing Provider: LETITIA PHOENIX Ordering User: BECKIE BLANCO Isosorbide Mononitrate ER 30 MG Oral Table*90 Tab*1 Sig: TAKE 1 TABLET BY MOUTH EVERY MORNING Authorizing Provider: LETITIA PHOENIX Ordering User: BECKIE BLANCO< BR> Warfarin Sodium 5 MG Oral Tablet (Jantoven)90 Tab*1 Sig: Take 1/2 to 1 tablet by mouth daily as directed by [facility] Authorizing Provider: LETITIA PHOENIX Ordering User: BECKIE BLANCO documented in this encounter Plan of Treatment Upcoming Encounters Date Type Department Care Team (Late st Contact Info) Description 04/26/2024 3:00 PM EDT Office Visit Pulmonary Medicine, [address] [place] [address] Krunal Sherwood MD [address] [place] [address] 05/02/2024 1:20 PM EDT Anticoagulation Pharmacy, [facility] [address] [facility] [place] [address] Pharmacist1, [facility] [address] [facility] [place] [place] [address] 05/04/2024 3:00 PM EDT Office Visit Nephrology, [facility] [address] [facility] [place] [address] Eddie Suh MD [address] [facility] [place] [address] 05/15/2024 10:00 AM EDT Office Visit Podiatry [facility] [address] [place] [address] Bryanna Guzman DPM [address] [place] [address] 05/16/2024 2:20 PM EDT Office Visit Family Practice [facility] [address] [facility] [address] Gaby Holland PA-C [address] [facility] [place] [address] 10/15/2024 3:00 PM EST Office Visit Cardiology, [facility] [address] [place] [address] Yeni Laureano CRNP [address] [place] [address] Health Maintenance Due Date Last Done Comments [...] Name Relationship Healthcare Agent Relationship Communication Rusty Annemildred Spouse First Alternate Health Care Agent (per Health Care Power of Maintenance Advisor document) DAVID Pearl Adult Child Second Alternate Health Care Agent (per Health Care Power of Maintenance Advisor document) Care Teams Nursing Teacher Relationship Specialty Start Date End Date Letitia Phoenix DO [address] [place] [address] PCP - General Family Medicine 06/02/18 documented as of this encounter
--- OUTSIDE RECORDS SUMMARY | 2024-07-17 15:48 | External Medical Summary | Summary of Care ---
Author Name Unknown Organization [facility] Address [address] [facility] [place] [address] Phone [phone] Care Team Providers Care Dope Pourer Name Role Phone Letitia Posey DO Primary Care Provider [phone] Reason for Visit * Reason Comments eRx-Medication Refill Encounter Details Date Type Department Care Team (Late st Contact Info) Description 01/26/2024 Refill Family Practice [facility] [address] [facility] [place] [address] Letitia Posey DO 200 [place] [address] Allergies Active Allergy Reactions Criticality Noted Date Comments Glipizide 02/18/2021 Dizzy, confusion Penicillins Rash 10/13/2001 documented as of this encounter (statuses as of 01/26/2024) Medications Medication Sig Dispensed Refills Start Date [...] ons:COPD, group B, by GOLD 2017 classification ([facility]) Inhale 1 Vial via nebulizer every 4 hours as needed for Wheezing or Shortness of Breath. 90 mL 3 3 Active oxygen IN GAS Increase to 3 LPM bled through CPAP with all sleep. T and B medical 1 Each 0 3 Active Vitamin D3 1.25 MG (86974 UT) Oral Capsule TAKE 1 CAPSULE BY MOUTH ONCE WEEKLY 12 Capsule 0 3 Active dilTIAZem HCl ER 240 MG Oral Capsule Extended Release 24 HourIndications:Roby gstanding persistent atrial fibrillation (HCC) TAKE 1 CAPSULE BY MOUTH ONCE DAILY 90 Capsule 3 3 Active Nystatin 896271 UNIT/GM External Powder (Nystop) Apply topically to [...] tablet by mouth daily as directed by [facility] coumadin clinic 90 Tablet 1 3 Active [...] ONCE DAILY 90 Tablet 1 4 Active Januvia 50 MG Oral TabletIndications:T ype 2 diabetes mellitus with stage 3 chronic kidney disease, without long-term current use of insulin, unspecified whether stage 3a or 3b CKD (HCC) Take 1 Tablet by mouth in the morning. In the morning.. 14 Tablet 0 4 Active Montelukast Sodium 10 MG Oral Tablet (Singulair) TAKE 1 TABLET BY MOUTH EVERY MORNING 90 Tablet 3 4 Active Montelukast Sodium 10 MG Oral Tablet (Singulair) Take 1 Tablet by mouth in the morning. 90 Tablet 3 3 01/26/20 24 Discontinued documented as of this encounter (statuses as of 01/26/2024) Active Problems Problem Noted Date Diagnosed Date [...] as of this encounter (statuses as of 01/26/2024) Resolved Problems Problem Noted Date Diagnosed Date Resolved Date Coronary artery disease invo lving [place] heart without angina pectoris 04/18/2019 10/29/2019 COPD, [...] as of this encounter (statuses as of 01/26/2024) Immunizations Name Administration Dates Next Due COVID-19 [...] encounter Miscellaneous Notes * Telephone Encounter - Lauren Black [facility] - 01/26/2024 8:48 PM EDTSigned Prescriptions: Disp Refills Montelukast Sodium 10 MG Oral Tablet (Sing*90 Tab*3 Sig: TAKE 1 TABLET BY MOUTH EVERY MORNINGAuthorizing Provider: LETITIA POSEY User: LAUREN BLACK documented in this encounter Plan of Treatment Upcoming Encounters Date Type Department Care Team (Late st Contact Info) Description 02/01/2024 2:30 PM EDT Anticoagulation Pharmacy, [facility] [place] [address] [place] [address] Pharmacist1, [facility] [address] [place] [address] 02/07/2024 10:00 AM EDT Office Visit Podiatry [facility] [address] [facility] [place] [id number] Braynna Guzman, DPM [address] [place] [address] 05/04/2024 3:00 PM EDT Office Visit Nephrology, [facility] [address] [facility] [place] [address] Eddie Suh MD [address] [facility] [place] [address] 05/16/2024 2:20 PM EDT Office Visit Family Practice [facility] [address] [facility] [place] [address] Gaby Holland PA-C [address] [facility] [place] [address] Health Maintenance Due Date Last Done Comments [...] Care Agent (per Health Care Power of Human Resource Internship document) DAVID Pearl Adult Child Second Alternate Health Care Agent (per Health Care Power of Human Resource Internship document) Care Teams Dope Pourer Relationship Specialty Start Date End Date Letitia Posey DO [address] [place] [address] PCP - General Family Medicine 06/02/18 documented as of this encounter
--- OUTSIDE RECORDS SUMMARY | 2024-07-17 15:48 | External Medical Summary ---
Author Name Unknown Address Unknown Organization K09:[facility] [address] Laboratory Report Ordering Provider Test Date Status THANIA ALBERTO V 02/01/2024 14:14:23 Final Therapeutic ranges for non-o perative patients:
Prophylaxsis/treatment of DVT: (Range:2.0-3.0)
Treatment of pulmonary embolism:(Range:2.0-3.0)
Prevention of systemic embolism from:
-tissue heart valves
-acute myocardial infarction
-valvular heart disease
-atrial fibrillation
(Range: 2.0-3.0)
Mechanical prosthetic valves: (Range: 2.5-3.5) Observation Date Value Abnormality Reference (Units ) Status INR in Capillary blood by Coagulation assay 02/01/2024 14:14:23 2.1 (INR) Final Performing Location [facility] [address]
--- OUTSIDE RECORDS SUMMARY | 2024-07-17 15:48 | External Medical Summary | Summary of Care ---
Author Name Unknown Organization [facility] Address [address] [place] [address] Phone [phone] Care Team Providers Care Cage Supervisor Name Role Phone JorgitoChad hager Primary Care Provider [phone] Reason for Visit * Reason Onset Date Comments Test Results 11/01/2023 Encounter Details Date Type Department Care Team (Late st Contact Info) Description 11/01/2023 Telephone Neurology, [place] [address] [place] [address] Services, [facility] [address] [place] [address] Test Results Allergies Active Allergy Reactions Criticality Noted Date Comments Glipizide 02/18/2021 Dizzy, confusion Penicillins Rash 10/13/2001 documented as of this encounter (statuses as of 01/31/2024) Medications Medication Sig Dispensed Refills Start Date End Date Status NEBULIZER MISCIndications:Ac otoe-[place] bronchitis, complicated use every 8 hrs as [...] 0 Active triamcinolone acetonide (ARISTOCORT) 0.1 % ointmentIndication [...] ions:COPD, group B, by GOLD 2017 classification ([facility]) Inhale 1 Vial via nebulizer every 4 hours as needed for Wheezing or Shortness of Breath. 90 mL 3 3 Active oxygen IN GAS Increase to 3 LPM bled through CPAP with all sleep. T and B medical 1 Each 0 3 Active Vitamin D3 1.25 MG (31317 UT) Oral Capsule TAKE 1 CAPSULE BY MOUTH ONCE WEEKLY 12 Capsule 0 3 Active Nystatin 038978 UNIT/GM External Powder (Nystop) Apply topically to [...] [facility] 90 Tablet 1 3 Active [...] MOUTH TWICE DAILY. 180 Tablet 3 3 024 Discontinued dilTIAZem HCl ER 240 MG Oral Capsule [...] 90 Tablet 1 3 024 Discontinued(Re fill) Rosuvastatin Calcium 20 MG Oral Tablet (Crestor) TAKE 1 TABLET BY MOUTH ONCE DAILY 90 Tablet 0 3 024 Discontinued documented as of this encounter (statuses as of 01/31/2024) Active Problems Problem Noted Date Diagnosed Date [...] regurgitation by prior echocardi ogram 10/18/2017 senior living 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 therapy 0 10/18/2017 [...] as of this encounter (statuses as of 01/31/2024) Resolved Problems Problem Noted Date Diagnosed Date Resolved Date Coronary artery disease invo lving [place] heart without angina pectoris 04/18/2019 10/29/2019 COPD, [...] 08/29/2018 Overview: Per CKD protocol #1 senior living current use of 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 therapy 03/05/2011 [...] as of this encounter (statuses as of 01/31/2024) Immunizations Name Administration Dates Next Due COVID-19 [...] money to buy more. Never true 09/21/20 Within the past 12 months, t he [...] encounter Miscellaneous Notes * Telephone Encounter - Avelina Fischer MED ASSIST - 11/04/2023 11:08 AM EST KK please advise on pt's daughters question regarding hematoma * Telephone Encounter - Avelina Fischer MED ASSIST - 11/01/2023 8:54 AM EST MyG was sent to pt on Oct 27: Your CT head showed a very tiny sub acute hematoma. I am ordering a repeat in 2 weeks to monitor. Cleo Garcia PA-C 10/27/2023 2:11 PM Made pt's daughter aware and they expressed understanding. CT scheduled. Pt's daughter is wondering if the hematoma could cause some of the memory issues that pt is having.She is wondering what could have caused the hematoma- she is aware that a cause could be hitting her head etc but said she does not know of a time that this happened. KK, please advise. * Telephone Encounter - Deanna Huynh OSA - 11/01/2023 8:46 AM EST [facility] Phone Call Form- Requested Information from caller: Who is calling (not pt) name: Grace relationship: Adult child Provider patient is established with: Cleo Garcia What is the concern or issue they are having: test results How long has the issue been going on: n/A Any additional details to add: yes: pt daughter is requesting test results of the cat scan she had back on 10/26/23 for pt. Pts phone number for nurse to call back: [phone] Please make sure you verify pharmacy for anything medication related. Form to be used for established patients only (not new patients) documented in this encounter Plan of Treatment Upcoming Encounters Date Type Department Care Team (Late st Contact Info) Description 02/01/2024 2:30 PM EDT Anticoagulation Pharmacy, [facility] [place] [address] [place] [address] Pharmacist1, [facility] [address] [place] [address] 02/07/2024 10:00 AM EDT Office Visit Podiatry [facility] [address] [place] [address] Bryanna Guzman DPM [address] [place] [address] 05/04/2024 3:00 PM EDT Office Visit Nephrology, [facility] [address] [place] [address] Eddie Suh MD [address] [place] [address] 05/16/2024 2:20 PM EDT Office Visit Family Practice [facility] [place] [address] [place] [address] Gaby Holland PA-C [address] [place] [address] Health Maintenance Due Date Last Done Comments [...] Agent (per Health Care Power of Supervisor Properties document) GRACE JojoKHADRA Adult Child Second Alternate Health Care Agent (per Health Care Power of Supervisor Properties document) Care Teams Cage Supervisor Relationship Specialty Start Date End Date Chad Phoenix DO [facility] [place] [address] PCP - General Family Medicine 06/02/18 documented as of this encounter
--- OUTSIDE RECORDS SUMMARY | 2024-07-17 15:48 | External Medical Summary | Summary of Care ---
Author Name Unknown Organization [facility] Address [address] [facility] [place] [address] Phone [phone] Care Team Providers Care Risk And Insurance Manager Name Role Phone Chad Phoenix Primary Care Provider [phone] Reason for Visit * Reason Comments eRx-Medication Refill Encounter Details Date Type Department Care Team (Late st Contact Info) Description 01/26/2024 Refill Cardiology, [facility] [address] [place] [address] Nicolasa Stockton PA-C [address] [place] [address] Longstanding persistent atrial fibrillation (HCC) Allergies Active Allergy Reactions Criticality Noted Date Comments Glipizide 02/18/2021 Dizzy, confusion Penicillins Rash 10/13/2001 documented as of this encounter (statuses as of 01/27/2024) Medications Medication Sig Dispensed Refills Start Date [...] 0 3 Active Vitamin D3 1.25 MG (88919 UT) Oral Capsule TAKE 1 CAPSULE BY MOUTH ONCE WEEKLY 12 Capsule 0 3 Active Nystatin 926503 UNIT/GM External Powder (Nystop) Apply topically to [...] tablet by mouth daily as directed by [facility] coumadin [facility] 90 Tablet 1 3 [...] the morning.. 14 Tablet 0 4 Active dilTIAZem HCl ER 240 MG Oral Capsule Extended Release 24 HourIndications:Roby gstanding persistent atrial fibrillation (HCC) TAKE 1 CAPSULE BY MOUTH ONCE DAILY 90 Capsule 3 4 Active dilTIAZem HCl ER 240 MG Oral Capsule Extended Release 24 HourIndications:Roby gstanding persistent atrial fibrillation (HCC) TAKE 1 CAPSULE BY MOUTH ONCE DAILY 90 Capsule 3 3 01/27/20 24 Discontinued documented as of this encounter (statuses as of 01/27/2024) Active Problems Problem Noted Date Diagnosed Date [...] regurgitation by prior echocardi ogram 10/18/2017 terminal manager 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 therapy 0 [...] as of this encounter (statuses as of 01/27/2024) Resolved Problems Problem Noted Date Diagnosed Date Resolved Date Coronary artery disease invo lving [place] heart without angina pectoris 04/18/2019 10/29/2019 COPD, [...] 08/29/2018 Overview: Per CKD protocol #1 terminal manager current use of 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 therapy [...] Lipid Taxonomy. Paroxysmal SVT (supraventricular tachycardia) 11/30/19 02/13/2019 HYPOTHYROIDISM NOS 11/30/2002 6 CARDIOVAS SYS SYMP NEC-carotid bruit 11/30/2002 04/13/2017 OBESITY, UNSPECIFIED 11/30/2002 010 Overview: Per Obesity Taxonomy Asthma, allergic 04/02/2010 CPAP (continuous positive ai rway pressure) dependence 03/07/2019 Overview: setting 4 documented as of this encounter (statuses as of 01/27/2024) Immunizations Name Administration Dates Next Due COVID-19 [...] encounter Miscellaneous Notes * Telephone Encounter - Christos Juan DO - 01/27/2024 6:13 AM EDTSigned Prescriptions: Disp Refills dilTIAZem HCl ER 240 MG Oral Capsule Exten*90 Cap*3 Sig: TAKE 1 CAPSULE BY MOUTH ONCE DAILY Authorizing Provider: CHRISTOS JUAN * Telephone Encounter - Marina Gamboa CMA - 01/26/2024 2:47 PM EDTPending Prescriptions: Disp Refills dilTIAZem HCl ER 240 MG Oral Capsule Exten*90 Cap*0 Sig: TAKE 1 CAPSULE BY MOUTH ONCE DAILY * Telephone Encounter - Marina Gamboa CMA - 01/26/2024 2:47 PM EDT Did you pend patient's preferred pharmacy and medication before forwarding?yes Pharmacy: [facility] [id number] Pending Prescriptions: Disp Refills dilTIAZem HCl ER 240 MG Oral Capsule Exte*90 Cap*0 Sig: TAKE 1 CAPSULE BY MOUTH ONCE DAILY Last Visit: 02/16/2023 (in office), 01/07/2020 (telemedicine) Next Visit: Visit date not found If no future appointments scheduled, and last appointment is greater than a year ago, please schedule patient for a follow-up appointment Last date the medication was ordered: 02-14-2023 Is this request for a controlled substance?No Urine Drug Screen:No results found. However, due to the size of the patient record, not all encounters were searched. Please check Results Review for a complete set of results. Patient Phone Numbers Labs: Lab Results Component Value Date/Time CREAT 1.4 (H) 04/05/2023 03:46 PM CREAT 1.54 (A) 04/02/2022 12:00 AM CREAT 1.6 (H) 11/05/2020 03:51 PM POTASSIUM 4.1 04/05/2023 03:46 PM POTASSIUM 4.4 04/02/2022 12:00 AM POTASSIUM 4.5 11/05/2020 03:51 PM TSH 3.16 04/05/2023 03:46 PM TSH 2.89 10/14/2020 02:49 PM LDLCALC 87 06/02/2018 02:18 PM LDLDIRECT NOT APPLICABLE 06/02/2018 02:18 PM LDLDIRECT 123 08/08/2015 11:33 AM ALT 14 02/12/2021 03:04 PM ALT 16 07/03/2020 10:28 AM HGBA1C 7.0 (H) 10/11/2023 03:00 PM HGBA1C 6.6 (H) 10/14/2020 02:49 PM documented in this encounter Plan of Treatment Upcoming Encounters Date Type Department Care Team (Late st Contact Info) Description 02/01/2024 2:30 PM EDT Anticoagulation Pharmacy, [facility] [address] [facility] [place] [address] Pharmacist1, [facility] [address] [place] [address] 02/07/2024 10:00 AM EDT Office Visit Podiatry [facility] [address] [place] [address] Bryanna Guzman, GIBRAN [address] [place] [address] 05/04/2024 3:00 PM EDT Office Visit Nephrology, [facility] [address] [facility] [place] [address] Eddie Suh MD [address] [facility] [place] [address] 05/16/2024 2:20 PM EDT Office Visit Family Practice [facility] [place] [address] [place] [address] Gaby Holland PA-C [address] [facility] [place] [address] Health Maintenance Due Date Last Done Comments [...] as of this encounter Visit Diagnoses Diagnosis Longstanding persistent atrial fibrillation (HCC) documented in [...] Agent (per Health Care Power of Clothing Room Supervisor document) DAVID JojoKHADRA Adult Child Second Alternate Health Care Agent (per Health Care Power of Clothing Room Supervisor document) Care Teams Risk And Insurance Manager Relationship Specialty Start Date End Date Chad Phoenix DO [address] [place] [address] PCP - General Family Medicine 06/02/18 documented as of this encounter
--- OUTSIDE RECORDS SUMMARY | 2024-07-17 15:48 | External Medical Summary | Summary of Care ---
Author Name Unknown Organization [facility] Address [address] [facility] [place] [address] Phone [phone] Care Team Providers Care Dairy Manager Name Role Phone JorgitoChad hager Primary Care Provider [phone] Reason for Visit * Reason Comments Diabetic Foot Care Encounter Details Date Type Department Care Team (Late st Contact Info) Description 02/07/2024 10:00 AM EDT Office Visit Podiatry [facility] [address] [place] [address] Bryanna Guzman DPM [address] [place] [address] Onychomycosis*; Type 2 diabetes mellitus with hemoglobin A1c goal of less than 8.0% ([facility]); Type 2 diabetes mellitus with stage 3 chronic kidney disease, without long-term current use of insulin, unspecified whether stage 3a or 3b CKD ([facility]); Stage 3 chronic kidney disease, unspecified whether stage 3a or 3b CKD ([facility]); Pain in toes of both feet Allergies Active Allergy Reactions Criticality Noted Date Comments Glipizide 02/18/2021 Dizzy, confusion Penicillins Rash 10/13/2001 documented as of this encounter (statuses as of 02/07/2024) Medications Medication Sig Dispensed Refills Start Date [...] 0 12/20/2022 Active Vitamin D3 1.25 MG (83568 UT) Oral Capsule TAKE 1 CAPSULE BY MOUTH ONCE WEEKLY 12 Capsule 0 01/17/2023 Active Nystatin 356287 UNIT/GM External Powder (Nystop) Apply topically to [...] tablet by mouth daily as directed by [facility] coumadin clinic 90 Tablet 1 [...] as of this encounter (statuses as of 02/07/2024) Active Problems Problem Noted Date Diagnosed Date [...] regurgitation by prior echocardi ogram 10/18/2017 terminal operator 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 therapy [...] as of this encounter (statuses as of 02/07/2024) Resolved Problems Problem Noted Date Diagnosed Date Resolved Date Coronary artery disease invo lving [place] heart without angina pectoris 04/18/2019 10/29/2019 COPD, [...] 08/29/2018 Overview: Per CKD protocol #1 terminal operator current use of 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 therapy [...] as of this encounter (statuses as of 02/07/2024) Immunizations Name Administration Dates Next Due COVID-19 [...] Progress Notes * Bryanna Guzman, DUSTYM - 02/07/2024 10:09 AM EDT [facility] : 1935 Date: 02/07/2024 CHIEF COMPLAINT: Diabetic Nail Care HISTORY OF [...] 30-59 ML/MIN) 02/28/2012 Per CKD protocol #1 senior care 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 therapy 10/18/2017 ICD-10 update of inactive term Moderate mitral regurgitation by prior echocardiogram 10/18/2017 Obesity, BMI not known 11/30/2002 Paroxysmal SVT (supraventricular tachycardia) 11/30/2002 Paroxysmal SVT (supraventricular tachycardia) 11/30/2002 Tachycardia associated with angina Past Surgical History: Procedure Laterality Date ABLATE HEART DYSRHYTHM FOCUS 03/27/2010 CATHETER ABLATION-SVT performed by NATASHA NAM at [facility] K[place] TOTAL B/LTKR (Total Knee Replacement) COLONOSCOPY, DIAGNOSTIC (RECTUM) 10/07/2020 Multiple proximal colon AVM's, diverticulosis / [facility] EGD, FLEXIBLE, DIAGNOSTIC 10/07/2020 benign gastric polyp, hiatal hernia / [facility] EGD, W/ENDOSCOPIC US N/A 02/21/2015 serous pancreatic cyst. fatty liver/ESOPHAGOGASTRODUODENOSCOPY (EGD), FLEXIBLE, TRANSORAL, ENDOSCOPIC ULTRASOUND performed by Larry Daugherty DO at [facility] BRONCHOSCOPY TRANSBRONCHIAL NEEDLE ASPIRATION BIOPSY WNL HEMILAMINECTOMY, [...] 1 Each 0 Vitamin D3 1.25 MG (08399 UT) Oral Capsule TAKE 1 CAPSULE BY MOUTH ONCE WEEKLY 12 Capsule 0 Nystatin 975666 UNIT/GM External Powder (Nystop) Apply topically to [...] tablet by mouth daily as directed by [facility] coumadin [facility] 90 Tablet 1 [...] morning. In the morning.. 30 Tablet 5 No current facility-administered medications for this visit. [...] Nursing Notes * Melissa Diaz LPN - 02/07/2024 9:56 AM EDT Pt presents for routine diabetic nail care, no pain in feet. Does not test BSG documented in this encounter Plan of Treatment Upcoming Encounters Date Type Department Care Team (Late st Contact Info) Description 03/14/2024 2:30 PM EDT Anticoagulation Pharmacy, [facility] [address] [place] [address] Pharmacist1, [facility] [address] [place], [place] [address] 05/04/2024 3:00 PM EDT Office Visit Nephrology, [facility] [address] [facility] [address] [place], [place] [address] Eddie Suh MD [address] [facility] [address] [place], [place] [address] 05/15/2024 8:00 AM EDT Office Visit Podiatry, [facility] [address] [place] [address] Falguni Connors [facility] [address] [place] [address] 05/16/2024 2:20 PM EDT Office Visit Family Practice [facility] [address] [place], [place] [address] Gaby Holland PA-C [address] [place] [address] Health Maintenance Due Date Last Done Comments Zoster Vaccines (1 of 2) 1985 COVID-19 Vaccine ( - season) 2023 09/23/2021, 12/09/2020, 11/11/2020 Albumin/Creatinine [...] Agent (per Health Care Power of Director [employer] document) DAVID JojoKHADRA Adult Child Second Alternate Health Care Agent (per Health Care Power of Director [employer] document) Care Teams Dairy Manager Relationship Specialty Start Date End Date Chad Phoenix DO [address] [place] [address] PCP - General Family Medicine 06/02/18 documented as of this encounter
--- OUTSIDE RECORDS SUMMARY | 2024-07-17 15:48 | External Medical Summary | Summary of Care ---
Author Name Unknown Organization [facility] Address [address] [facility] [place] [address] Phone [phone] Care Team Providers Care Special Education Itinerant Teacher Name Role Phone JorgitoChad hager Primary Care Provider [phone] Encounter Details Date Type Department Care Team (Late st Contact Info) Description 02/28/2024 Population Health External Data Unspecified Department Allergies Active Allergy Reactions Criticality Noted Date Comments Glipizide 02/18/2021 Dizzy, confusion Penicillins Rash 10/13/2001 documented as of this encounter (statuses as of 02/28/2024) Medications Medication Sig Dispensed Refills Start Date [...] ns:COPD, group B, by GOLD 2017 classification ([facility]) Inhale 1 Vial via nebulizer every 4 hours as needed for Wheezing or Shortness of Breath. 90 mL 3 10/20/2022 Active oxygen IN GAS Increase to 3 LPM bled through CPAP with all sleep. T and B medical 1 Each 12/20/2022 Active Vitamin D3 1.25 MG (84396 UT) Oral Capsule TAKE 1 CAPSULE BY MOUTH ONCE WEEKLY 12 Capsule 01/17/2023 Active Nystatin 321626 UNIT/GM External Powder (Nystop) Apply topically to [...] (Lasix)Indications:H eart failure, diastolic, due to HTN ([facility]) Take one tablet by mouth [...] as of this encounter (statuses as of 02/28/2024) Active Problems Problem Noted Date Diagnosed Date [...] by prior echocardi ogram 10/18/2017 long term 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 therapy 0 10/18/2017 [...] as of this encounter (statuses as of 02/28/2024) Resolved Problems Problem Noted Date Diagnosed Date Resolved Date Coronary artery disease invo lving [employer] heart without angina pectoris 04/18/2019 10/29/2019 COPD, [...] as of this encounter (statuses as of 02/28/2024) Immunizations Name Administration Dates Next Due COVID-19 [...] Description 03/14/2024 2:30 PM EDT Anticoagulation Pharmacy, [facility] [address] [place] [address] Pharmacist1, [facility] [address] [place] [address] 04/05/2024 3:00 PM EDT Office Visit Cardiology, [facility] [address] [place] [address] Yeni Laureano CRNP [address] [place] [address] 05/04/2024 3:00 PM EDT Office Visit Nephrology, [facility] [address] [place] [address] Eddie Suh MD [address] [place] [address] 05/15/2024 10:00 AM EDT Office Visit Podiatry [facility] [address] [place] [address] Bryanna Guzman DPM [address] [place] [address] 05/16/2024 2:20 PM EDT Office Visit Family Practice [facility] [place] [address] [place] [address] Gaby Holland PA-C [address] [place] [address] Health Maintenance Due Date Last Done Comments [...] Care Agent (per Health Care Power of Cuffer document) DAVID Pearl Adult Child Second Alternate Health Care Agent (per Health Care Power of Cuffer document) Care Teams Special Education Itinerant Teacher Relationship Specialty Start Date End Date Chad Phoenix DO [address] [place] [address] PCP - General Family Medicine 06/02/18 documented as of this encounter
--- OUTSIDE RECORDS SUMMARY | 2024-07-17 15:48 | External Medical Summary | Summary of Care ---
Author Name Unknown Organization [facility] Address [address] [facility] [place] [address] Phone [phone] Care Team Providers Care Production Lead Name Role Phone Letitia Posey DO Primary Care Provider [phone] Reason for Visit * Reason Onset Date Comments Medication Refill 02/01/2024 Encounter Details Date Type Department Care Team (Late st Contact Info) Description 02/01/2024 Refill Family Practice [facility] [place] [address] [facility] [place] [address] Letitia Posey DO [address] [facility] [place] [address] Type 2 diabetes mellitus with stage 3 chronic kidney disease, without long-term current use of insulin, unspecified whether stage 3a or 3b CKD (HCC) Allergies Active Allergy Reactions Criticality Noted Date Comments Glipizide 02/18/2021 Dizzy, confusion Penicillins Rash 10/13/2001 documented as of this encounter (statuses as of 02/01/2024) Medications Medication Sig Dispensed Refills Start Date [...] ons:COPD, group B, by GOLD 2017 classification ([facility]) Inhale 1 Vial via nebulizer every 4 hours as needed for Wheezing or Shortness of Breath. 90 mL 3 10/20/2022 Active oxygen IN GAS Increase to 3 LPM bled through CPAP with all sleep. T and B medical 1 Each 0 12/20/2022 Active Vitamin D3 1.25 MG (95112 UT) Oral Capsule TAKE 1 CAPSULE BY MOUTH ONCE WEEKLY 12 Capsule 0 01/17/2023 Active Nystatin 471758 UNIT/GM External Powder (Nystop) Apply topically to [...] [facility] 90 Tablet 1 08/23/2023 Active Pantoprazole Sodium 40 MG Oral Tablet Delayed Release (Protonix) TAKE 1 TABLET BY MOUTH ONCE DAILY 90 Tablet 3 10/28/2023 Active Furosemide 40 MG Oral Tablet (Lasix)Indications: [...] the morning.. 30 Tablet 5 02/01/2024 Active Januvia 50 MG Oral TabletIndications:T ype 2 diabetes mellitus with stage 3 chronic kidney disease, without long-term current use of insulin, unspecified whether stage 3a or 3b CKD (HCC) Take 1 Tablet by mouth in the morning. In the morning.. 14 Tablet 0 01/12/2024 02/01/20 24 Discontinu ed(Refill) documented as of this encounter (statuses as of 02/01/2024) Active Problems Problem Noted Date Diagnosed Date [...] by prior echocardi ogram 10/18/2017 long term acute care registered nurse 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 therapy 0 10/18/2017 [...] as of this encounter (statuses as of 02/01/2024) Resolved Problems Problem Noted Date Diagnosed Date [...] 02/28/2012 08/29/2018 Overview: Per CKD protocol #1 shelter current use of 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 therapy 03/05/2011 [...] as of this encounter (statuses as of 02/01/2024) Immunizations Name Administration Dates Next Due COVID-19 [...] encounter Miscellaneous Notes * Telephone Encounter - Letitia Posey DO - 02/01/2024 4:36 PM EDTSigned Prescriptions: Disp Refills Januvia 50 MG Oral Tablet 30 Tab*5 Sig: Take 1 Tablet by mouth in the morning. In the morning.. Authorizing Provider: LETITIA POSEY * Telephone Encounter - Blanca Wong MED ASSIST - 02/01/2024 10:26 AM EDT Pending Prescriptions: Disp Refills Januvia 50 MG Oral Tablet 14 Tab*0 Sig: Take 1 Tablet by mouth in the morning. In the morning.. * Telephone Encounter - Farida Maciel OSA - 02/01/2024 10:18 AM EDT Did you pend patient's preferred pharmacy and medication before forwarding?yes Pharmacy: [facility] [id number] Pending Prescriptions: Disp Refills Januvia 50 MG Oral Tablet 14 Tab*0 Sig: Take 1 Tablet by mouth in the morning. In the morning.. Last Visit: 11/11/2023 (in office), 09/29/2020 (telemedicine) Next Visit: 05/16/2024 If no future appointments scheduled, and last appointment is greater than a year ago, please schedule patient for a follow-up appointment Last date the medication was ordered: [id number] Is this request for a controlled substance?No [...] 02/07/2024 10:00 AM EDT Office Visit Podiatry [facility] [address] [place] [address] Bryanna Guzman DPM [address] [place] [address] 03/14/2024 2:30 PM EDT Anticoagulation Pharmacy, [facility] [address] [place] [address] Pharmacist1, [facility] [address] [place] [address] 05/04/2024 3:00 PM EDT Office Visit Nephrology, [facility] [address] [place] [address] Eddie Suh MD [address] [place] [address] [address] 05/16/2024 2:20 PM EDT Office Visit Family Practice [facility] [place] [address] [place] [address] Gaby Holland PA-C [address] [place] [address] Health Maintenance Due Date Last Done Comments [...] Agent (per Health Care Power of Insurance Verification Specialist document) DAVID JojoKHADRA Adult Child Second Alternate Health Care Agent (per Health Care Power of Insurance Verification Specialist document) Care Teams Production Lead Relationship Specialty Start Date End Date Letitia Posey DO [address] [place] [address] PCP - General Family Medicine 06/02/18 documented as of this encounter
--- OUTSIDE RECORDS SUMMARY | 2024-07-17 15:48 | External Medical Summary | Summary of Care ---
Author Name Unknown Organization [facility] Address [address] [facility] [place] [address] Phone [phone] Care Team Providers Care Senior Radiation Protection Technician Name Role Phone LizettChad Jorge Luis GAMEZ Primary Care Provider [phone] Encounter Details Date Type Department Care Team (Late st Contact Info) Description 02/21/2024 Result Scan Unspecified Department Cleo Buchanan DO [address] [place] [id number] <No scans attached> Allergies Active Allergy Reactions Criticality Noted Date Comments Glipizide 02/18/2021 Dizzy, confusion Penicillins Rash 10/13/2001 documented as of this encounter (statuses as of 02/21/2024) Medications Medication Sig Dispensed Refills Start Date [...] B, by GOLD 2017 classification ([facility]) Inhale 1 Vial via nebulizer every 4 hours as needed for Wheezing or Shortness of Breath. 90 mL 3 10/20/2022 Active oxygen IN GAS Increase to 3 LPM bled through CPAP with all sleep. 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 0 [...] as of this encounter (statuses as of 02/21/2024) Resolved Problems Problem Noted Date Diagnosed Date Resolved Date Coronary artery disease invo lving [place] heart without angina pectoris 04/18/2019 10/29/2019 COPD, [...] 08/29/2018 Overview: Per CKD protocol #1 termite helper current use of 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 therapy [...] as of this encounter (statuses as of 02/21/2024) Immunizations Name Administration Dates Next Due COVID-19 [...] Description 03/14/2024 2:30 PM EDT Anticoagulation Pharmacy, [facility] [address] [place] [address] [address] Pharmacist1, [facility] [address] [place] [address] 04/05/2024 3:00 PM EDT Office Visit Cardiology, [facility] [address] [place] [address] Yeni Laureano CRNP [address] [place] [address] 05/04/2024 3:00 PM EDT Office Visit Nephrology, [facility] [address] [place] [address] Eddie Suh MD [address] [place] [address] 05/15/2024 10:00 AM EDT Office Visit Podiatry [facility] [address] [place] [address] Bryanna Guzman DPM [address] [place] [address] 05/16/2024 2:20 PM EDT Office Visit Family Practice [facility] [address] [place] [address] Gaby Holland PA-C 200 [facility] [place] [address] Health Maintenance Due Date Last Done Comments Zoster Vaccines (1 of 2) 1985 COVID-19 Vaccine (4 - 2022- season) 2023 09/23/2021, 12/09/2020, 11/11/2020 Albumin/Creatinine Ratio 10/26/2023 023, 12/08/2021, 02/26/2019, Additional history exists Diabetic Foot Exam 10/26/2023 10/26/2022, 0 11/24/2021, 02/12/2021, Additional history exists TSH 04/05/2024 04/05/2023, 07/0 03/2022, 04/08/2022, Additional history exists HbA1c 04/10/2024 10/11/2023, 2 04/2023, 10/20/2022, Additional history exists Diabetic Eye [...] Procedure Name Priority Date/Time Associated Diagnosis Comments CARDIOLOGY SCANNED RESULT 02/21/2024 documented in this encounter Results * CARDIOLOGY SCANNED RESULT (02/21/2024) 02/21/2024 Cleo Tamika Buchanan DO OTHER documented in this encounter Advance Directives Latest [...] Care Agent (per Health Care Power of Childcare Center Administrator document) DAVID Pearl Adult Child Second Alternate Health Care Agent (per Health Care Power of Childcare Center Administrator document) Care Teams Senior Radiation Protection Technician Relationship Specialty Start Date End Date Chad Phoenix DO [address] [place] [address] PCP - General Family Medicine 06/02/18 documented as of this encounter
--- OUTSIDE RECORDS SUMMARY | 2024-07-17 15:48 | External Medical Summary | Summary of Care ---
Author Name Unknown Organization [facility] Address [address] [facility] [place] [address] Phone [phone] Care Team Providers Care Medtronics Technician Name Role Phone JorgitoChad hager Primary Care Provider [phone] Reason for Visit * Reason Comments Dosage Adjustment In Person (Anticoag Cl inic) Encounter Details Date Type Department Care Team (Latest Contact Info) Description 02/01/2024 2:30 PM EDT Anticoagulation Pharmacy, [facility] [address] [place] [address] Pharmacist1, [facility] [address] [facility] [place] [address] Anticoagulation management encounter*; Permanent atrial fibrillation (HCC); Paroxysmal atrial fibrillation (HCC); Atrial fibrillation, unspecified type (HCC) Allergies Active Allergy Reactions Criticality Noted [...] 2017 classification ([facility]) Inhale 1 Vial via nebulizer every 4 hours as needed for Wheezing or Shortness of Breath. 90 mL 3 10/20/2022 Active oxygen IN GAS Increase to 3 LPM bled through CPAP with all sleep. T and B medical 1 Each 0 12/20/2022 Active Vitamin D3 1.25 MG (70172 UT) Oral Capsule TAKE 1 CAPSULE BY MOUTH ONCE WEEKLY 12 Capsule 0 01/17/2023 Active Nystatin 637117 UNIT/GM External Powder (Nystop) Apply topically to [...] tablet by mouth daily as directed by [facility] coumadin clinic 90 Tablet 1 08/23/2023 Active [...] ONCE DAILY 90 Tablet 1 11/10/2023 Active Januvia 50 MG Oral TabletIndications:Ty pe 2 diabetes mellitus with stage 3 chronic kidney disease, without long-term current use of insulin, unspecified whether stage 3a or 3b CKD (HCC) Take 1 Tablet by mouth in the morning. In the morning.. 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 0 10/18/2017 [...] Resolved Date Coronary artery disease invo lving [place] heart without angina pectoris 04/18/2019 10/29/2019 COPD, [...] Progress Notes * Ritchie Gonzáles RPh - 02/01/2024 2:10 PM EDT Medication Therapy Disease Management - Anticoagulation Tori Medley Omidmildred 1935 Current Warfarin Dose As of 02/01/2024 Warfarin maintenance plan: 2.5 mg (5 mg x 0.5) every Mon, Fri; 5 mg (5 mg x 1) all other days Patient Findings Negatives: Signs/symptoms of thrombosis, Signs/symptoms of bleeding, Change in health, Change in alcohol use, Change in activity, Upcoming invasive procedure, Missed doses, Extra doses, Change in medications, Change in diet/appetite, Bruising INR Result As of 02/01/2024 INR goal: 2.0-3.0 INR used for dosin.1 (02/01/2024) Warfarin Plan As of 02/01/2024 Full warfarin instructions: 2.5 mg every Mon, Fri; 5 mg all other days Next INR check: 03/14/2024 Repeat PT/INR in 6 week(s) Weekly dose: not changed Ritchie Menchaca RPh, CACP, CDE Clinical Pharmacist Medication Therapy Management [facility] 02/01/2024 2:18 PM documented in this encounter Plan of Treatment Upcoming Encounters Date Type Department Care Team (Late st Contact Info) Description 02/07/2024 10:00 AM EDT Office Visit Podiatry [facility] [address] [place] [address] Bryanna Guzman DPM [address] [place] [address] 03/14/2024 2:30 PM EDT Anticoagulation Pharmacy, [facility] [place] [address] [facility] [place] [address] Pharmacist1, [facility] [address] [facility] [place] [address] 05/04/2024 3:00 PM EDT Office Visit Nephrology, [facility] [address] [facility] [place] [address] Eddie Suh MD [address] [facility] [place] [address] 05/16/2024 2:20 PM EDT Office Visit Family Practice [facility] [place] [address] [facility] [place] [address] Gaby Holland PA-C [address] [facility] [place] [address] Scheduled Orders Name Type Priority Associated Diagnoses Orde r Schedule INR FINGERSTICK, POINT OF CARE Point of Care Testing - Unsolicited Results STAT Permanent atrial fibrillation (HCC) Paroxysmal atrial fibrillation (HCC) Anticoagulation management encounter Every 2 Weeks for 26 Occurrences starting 01/30/2024 until 01/29/2025, 1 completed PT INR Lab Routine Permanent atrial fibrillation (HCC) Paroxysmal atrial fibrillation (HCC) Anticoagulation management encounter Every 6 Weeks for 26 Occurrences starting 01/30/2024 until 01/29/2025 Health Maintenance Due Date Last Done Comments [...] Comments INR FINGERSTICK, POINT OF CARE STAT 02/01/2024 2:14 PM EDT Permanent atrial fibrillation (HCC) Paroxysmal atrial fibrillation (HCC) Anticoagulation management encounter documented in this encounter Results * INR FINGERSTICK, POINT OF CARE (02/01/2024 2:14 PM EDT) Fingerstick INR 2.1 INR 2:31 PM EDT [facility] [place] [id number] Blood 02/01/2024 2:14 PM EDT 02/01/2024 2:31 PM EDT Narrative [facility] [id number] - 02/01/2024 2:31 PM EDT Therapeutic ranges for non-operative patients: Prophylaxsis/treatment of DVT: (Range:2.0-3.0) Treatment of pulmonary embolism:(Range:2.0-3.0) Prevention of systemic embolism from: -tissue heart valves -acute myocardial infarction -valvular heart disease -atrial fibrillation (Range: 2.0-3.0) Mechanical prosthetic valves: (Range: 2.5-3.5) Ritchie Nikolai V, RPh LAB POINT OF CARE TE ST DOCKED DEVICE UNSOLICITED RESULTS [facility] [id number] [address] [place] [address] documented in this encounter Visit Diagnoses Diagnosis Anticoagulation management encounter- Primary Encounter for therapeutic drug monitoring Permanent atrial fibrillation (HCC) Atrial fibrillation Paroxysmal atrial fibrillation (HCC) Atrial fibrillation Atrial fibrillation, unspecified type (HCC) documented in this encounter Advance Directives [...] Care Agent (per Health Care Power of General Engineering Teacher document) DAVID Pearl Adult Child Second Alternate Health Care Agent (per Health Care Power of General Engineering Teacher document) Care Teams Medtronics Technician Relationship Specialty Start Date End Date Chad Phoenix DO [address] [place] [address] PCP - General Family Medicine 06/02/18 documented as of this encounter
--- NOTE | 2024-07-17 16:57 | History & Physical Report ---
Date of Service July 17, 2024 Assessment & Plan (1) Acute blood loss anemia: (2) Bleeding from varicose vein: Plan Tori May is an 89y/o F with PMHx significant for DM type II, dyslipidemia, HTN, COPD, acquired hypothyroidism, secondary hyperparathyroidism, DAIN on CPAP, atrial fibrillation [on warfarin], SSS s/p pacemaker placement, diastolic heart failure/chronic right-sided heart failure, pulmonary hypertension, moderate mitral regurgitation, CKD stage III and thrombocytopenia who presented to the ED via EMS for evaluation of a bleeding LLE varicose vein. Acute Blood Loss Anemia Bleeding From LLE Varicose Vein: Hgb was 9.2 in the ED otherwise lab work was unremarkable. Most recent Hgb level was 10.9 on 05/04/2024. INR therapeutic at 2.9 on presentation. Patient did have TXA and lidocaine with epi applied using gauze to the area as well as a pressure dressing. Patient was also given 10mg of IV vitamin K. General surgery was consulted in the ED. Recommended to keep the pressure dressing intact and will reevaluate patient tomorrow to see how the bleeding is doing. Also recommended to keep the patient at bedrest. Will recheck PT/INR in the AM and hold her home warfarin for now. Repeat Hgb was 8.9 this evening --> will follow closely with AM labs. HTN, Chronic Diastolic HF: Continue home metoprolol succinate, diltiazem & Imdur. Will hold home Lasix for now given acute blood loss. Close BP and volume status monitoring. DM Type II: Hold home therapy clinician, SSI regimen while inpatient. BSG checks ACHS. Most recent Hgb A1c was 6.5% on 05/04/2024. CKD Stage III: Cr 1.34 on admission. Baseline Cr ~1.3-1.5 per chart review. Avoid nephrotoxic medications when able. Close renal monitoring with AM labs. Other Chronic Medical Conditions: COPD, HLD, GERD, hypothyroidism --> Can continue home meds for these specific conditions. Continue CPAP HS for DAIN. DVT Prophylaxis: SCDs/TEDs for now as home warfarin is on hold. Code Status: DNR/DNI - No Resuscitation PCP: Chad Phoenix DO Disposition: Observation in Med/Surg + Telemetry Patient's daughter, Grace, can be contacted at the following phone #: [phone]. She is the patient's POA. Spoke with the daughter over the phone. Updated her on the plan thus far. She would like updated on a daily basis regarding her mother's care. Daughter reports that the patient is very forgetful at baseline and has trouble remembering information. 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 Patient lives at home with multiple family members. Her daughter organizes her medications at home. Daughter reports that she gets very confused while in the hospital. Delirium precautions. Patient seen in collaboration with Dr. Campuzano. Please see addendum. I spent a total of 50 minutes coordinating, documenting, and providing care for this patient excluding time spent in the performance of separately billed services. This included personally reviewing all current laboratories and imaging studies, medical reconciliation, outpatient chart review and discussion with specialists. This chart was completed in part utilizing Speech Voice Recognition Software. Grammatical errors, random word insertions, pronoun errors, and incomplete sentences are an occasional consequence of this system due to software limitations, ambient noise, and hardware issues. Any formal questions or concerns about the content, text, or information contained within the body of this dictation should be directly addressed to the provider for clarification. History of Present Illness Chief Complaint: Bleeding Left Leg Varicose Vein Primary Care Provider: Chad Phoenix DO Tori May is an 89y/o F with PMHx significant for DM type II, dyslipidemia, HTN, COPD, acquired hypothyroidism, secondary hyperparathyroidism, DAIN on CPAP, atrial fibrillation [on warfarin], SSS s/p pacemaker placement, diastolic heart failure/chronic right-sided heart failure, pulmonary hypertension, moderate mitral regurgitation, CKD stage III and thrombocytopenia who presented to the ED via EMS for evaluation of a bleeding LLE varicose vein. History obtained from patient and associated chart review. Patient noticed blood dripping from her LLE while she was in the shower this morning. Mentions blood was protruding from a varicose vein on the medical aspect of her LLE around the area of her knee. Unsure of how long this area was bleeding however she noticed a lot of blood at the base of the shower. She takes warfarin for history of A-fib. Denies any trauma to this area. No chest pain, SOB or lightheadedness/dizziness. Her granddaughter had called EMS. EMS had applied a pressure dressing at the scene. Her hemoglobin was 9.2 in the ED. Most recent previous hemoglobin level was 10.9 on 05/04/2024. INR therapeutic at 2.9 on presentation. Patient did have TXA and lidocaine with epi applied with gauze to the area as well as a pressure dressing. Patient was also given 10mg of IV vitamin K. General surgery was consulted in the ED. No surgical intervention warranted at this time. Allergies Allergy/AdvReac Type Severity Reaction Status Date / Time Penicillins Allergy Intermediate RASH Verified 07/17/24 14:58 glipizide AdvReac dizziness/c Verified 07/17/24 14:58 onfusion Home Medications Medication Instructions Recorded Confirmed Type pantoprazole 40 mg tablet,delayed 40 mg PO QAM ##0 12/25/14 07/17/24 History release diltiazem HCl 240 mg 240 mg PO QAM ##0 09/30/17 07/17/24 History tablet,extended release 24 hr metoprolol succinate 100 mg 100 mg PO BID ##0 10/15/17 07/17/24 History tablet,extended release 24 hr sitagliptin phosphate 50 mg tablet 50 mg PO QAM #0 tabs 02/22/18 07/17/24 History (Januvia) levothyroxine 75 mcg tablet 75 mcg PO DAILYBB 90 days #90 tabs 05/25/18 07/17/24 History rosuvastatin 20 mg tablet 20 mg PO PM 04/14/19 07/17/24 History furosemide 40 mg tablet 40 mg PO AMHS 09/13/23 07/17/24 History magnesium oxide 400 mg PO QAM 09/13/23 07/17/24 History montelukast 10 mg tablet 10 mg PO QAM 09/13/23 07/17/24 History warfarin 5 mg tablet See Rx Instructions .Route .COMPLEX 09/13/23 07/17/24 History isosorbide mononitrate 30 mg 15 mg PO QAM 07/17/24 07/17/24 History tablet,extended release 24 hr Past Med/Surg History Problem List (Updated 07/17/24 @ 18:00 by Velma Iglesias PA-C) Acute blood loss anemia Bleeding from varicose vein Respiratory syncytial virus (RSV) (Acute) Acute on chronic respiratory failure (Acute) Right middle lobe pneumonia Chronic diastolic heart failure COPD (chronic obstructive pulmonary disease) CKD (chronic kidney disease), stage III RSV (acute bronchiolitis due to respiratory syncytial virus) DM (diabetes mellitus), type 2 Acute and chronic respiratory failure Dyspnea (Acute) Supratherapeutic INR Colon arteriovenous malformation Acute on chronic right heart failure Acute GI bleeding (Acute) Anemia (Acute) Symptomatic anemia (Acute) Acute dyspnea (Acute) Atrial fibrillation (Chronic 04/18/13) Diabetes (Chronic) Shoulder pain, left (Chronic 08/26/14) Hypertensive urgency (Chronic) CHF (congestive heart failure) (Chronic) Asthma (Chronic) Acute bronchitis (Acute) Anticoagulated on Coumadin (Acute) Blood in left ear canal (Acute) CHF exacerbation (Acute) Cellulitis (Acute) Chest pain (Acute) Hypertension (Acute) Supratherapeutic INR (Acute) Medical History Hypertension Cardiac pacemaker in situ Tachy-pham syndrome Atrial fibrillation Acute on chronic diastolic CHF (congestive heart failure), NYHA class 3 MACARIO (dyspnea on exertion) Acute dyspnea Acute exacerbation of congestive heart failure Acute decompensated heart failure Family History Other Alzheimer disease Breast cancer Social History Smoking Status: Never smoker Second Hand Exposure: No; Do You Dip or Chew Tobacco: No; Hx Alcohol Use: No Hx Substance Use: No Preferred Language: Emirati Communication Ability: Effective Machine I Coremaker Required: No Beliefs That Will Affect Care: None marital status: Current Living Situation: Family Current Living Situation Comment: spouse, daughter, son, daughter in law, grandchildren Other Information That Helps Us Care for You: No Feels Safe at Home: Yes Safety Concerns: Feels Safe At This Time Assistive Devices: CPAP, Denture - Upper, Denture - Lower, Hearing Aid - Left, Oxygen - at Night and Walker Review of Systems Review of Systems: At least ten systems reviewed and negative, except as noted in the HPI. Physical Exam Physical Exam: Please refer to Dr. Campuzano's addendum for physical examination findings. Results & Data Results & Data Vital Signs (Past 12 Hours) Vital Signs Temp Pulse Pulse Resp BP BP Pulse Ox 07/17/24 15:42 62 07/17/24 15:00 60 17 118/69 99 07/17/24 13:00 60 22 150/70 H 95 07/17/24 11:36 66 22 141/58 H 94 07/17/24 10:23 60 07/17/24 09:36 36.6 C 18 114/62 95 07/17/24 09:36 98 07/17/24 09:36 36.6 C 69 20 129/70 94 O2 Del Method 07/17/24 15:42 07/17/24 15:00 Room Air 07/17/24 13:00 Room Air 07/17/24 11:36 Room Air 07/17/24 10:23 07/17/24 09:36 Room Air 07/17/24 09:36 Room Air 07/17/24 09:36 Room Air Laboratory Results Short CBC 07/17/24 Range/Units 09:55 WBC 5.13 (4.8-10.8) K/ul Hgb 9.2 L (12.0-16.0) g/dl Hct 28.7 L (37.0-47.0) % Plt Count 166 (130-400) K/uL BMP 07/17/24 09:55 Sodium 138 Potassium 4.0 Chloride 101 Carbon Dioxide 31 BUN 25 H Creatinine 1.34 H Glucose 124 H Calcium 8.7 Liver Function 07/17/24 Range/Units 09:55 Total Bilirubin 0.9 (0.2-1.0) mg/dl AST 20 (13-39) U/L ALT 14 (7-52) U/L Alkaline Phosphatase 99 (34-104) U/L Albumin 3.7 (3.4-5.0) gm/dl Medications Administered Discontinued Medications Phytonadione 10 mg/ Dextrose 51 mls @ 102 mls/hr IV ONE ONE Stop: 07/17/24 14:50 Last Infusion: 07/17/24 15:45 Dose: Infused Documented By: Admin: 07/17/24 15:06 Dose: 102 mls/hr Documented By: RENY Lidocaine/Epinephrine (Lidocaine 1%/Epinephrine 1:100,000 50 Ml Vial) 10 ml INFIL NOW ONE Stop: 07/17/24 12:03 Last Admin: 07/17/24 12:33 Dose: 10 ml Documented By: NAMAN Tranexamic Acid (Txa 10% Non-Iv Routes 100 Mg/Ml Vial) 1,000 mg TOP ONE ONE Stop: 07/17/24 12:03 Last Admin: 07/17/24 12:33 Dose: 1,000 mg Documented By: NAMAN Code Status & VTE Plan Code Status DNR/DNI - No Resuscitation
--- NOTE | 2024-07-17 17:06 | Surgery Consultation ---
Date of Consultation July 17, 2024 Assessment & Plan (1) Bleeding from varicose vein: Obviously the Coumadin is a major contributing factor. I did not want to take down her pressure dressing as this appears to be working. She was given vitamin K. I will reevaluate her tomorrow but I would keep her at bedrest. Hold Coumadin recheck INR. Is okay with us if she has something to eat. (2) CKD (chronic kidney disease), stage III: (3) DM (diabetes mellitus), type 2: (4) Atrial fibrillation: (5) Supratherapeutic INR: History of Present Illness History of Present Illness Pleasant 89-year-old female who is on Coumadin. Today while in the shower she looked down and saw a lot of blood. It was coming from her leg. She does not recall bumping it or injuring it in any way. She denies any pain. Allergies Allergy/AdvReac Type Severity Reaction Status Date / Time Penicillins Allergy Intermediate RASH Verified 07/17/24 14:58 glipizide AdvReac dizziness/c Verified 07/17/24 14:58 onfusion Vitamin K AdvReac Unknown Pt avoids Uncoded 07/17/24 14:58 due to being on anticoagulant Home Medications Medication Instructions Recorded Confirmed Type pantoprazole 40 mg tablet,delayed 40 mg PO QAM ##0 12/25/14 07/17/24 History release diltiazem HCl 240 mg 240 mg PO QAM ##0 09/30/17 07/17/24 History tablet,extended release 24 hr metoprolol succinate 100 mg 100 mg PO BID ##0 10/15/17 07/17/24 History tablet,extended release 24 hr sitagliptin phosphate 50 mg tablet 50 mg PO QAM #0 tabs 02/22/18 07/17/24 History (Januvia) levothyroxine 75 mcg tablet 75 mcg PO DAILYBB 90 days #90 tabs 05/25/18 07/17/24 History rosuvastatin 20 mg tablet 20 mg PO PM 04/14/19 07/17/24 History furosemide 40 mg tablet 40 mg PO AMHS 09/13/23 07/17/24 History magnesium oxide 400 mg PO QAM 09/13/23 07/17/24 History montelukast 10 mg tablet 10 mg PO QAM 09/13/23 07/17/24 History warfarin 5 mg tablet See Rx Instructions .Route .COMPLEX 09/13/23 07/17/24 History isosorbide mononitrate 30 mg 15 mg PO QAM 07/17/24 07/17/24 History tablet,extended release 24 hr Patient History Medical History Hypertension Cardiac pacemaker in situ Tachy-pham syndrome Atrial fibrillation Acute on chronic diastolic CHF (congestive heart failure), NYHA class 3 MACARIO (dyspnea on exertion) Acute dyspnea Acute exacerbation of congestive heart failure Acute decompensated heart failure Family History Other Alzheimer disease Breast cancer Social History Smoking Status: Never smoker Second Hand Exposure: No; Do You Dip or Chew Tobacco: No; Hx Alcohol Use: No Hx Substance Use: No Preferred Language: Norwegian Communication Ability: Effective 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: No Beliefs That Will Affect Care: None marital status: Current Living Situation: Family Current Living Situation Comment: spouse, daughter, son, daughter in law, grandchildren Feels Safe at Home: Yes Assistive Devices: CPAP, Denture - Upper, Denture - Lower, Glasses, Hearing Aid - Left, Oxygen - at Night and Walker Review of Systems 2 Review of Systems: All systems reviewed & are unremarkable except as noted in HPI & below Physical Exam Constitutional: WD/WN, vitals as above no acute distress and not ill appearing Eyes: PERRL, conjunctivae normal, anicteric sclerae EOM intact bilaterally ENMT: external ear and nose normal, oropharynx normal Ears: no hearing impairment Neck: trachea midline, no thyromegaly Respiratory: normal respiratory effort; no respiratory distress and does not use accessory muscles Cardiovascular: Rate/Rhythm: regular rate and regular rhythm Gastrointestinal (Abdomen): normal bowel sounds, soft, nontender, no hepatosplenomegaly Skin: Left lower extremity is wrapped with a dressing as well as an Lucas bandage. There is no blood soaking through the dressing whatsoever. Psychiatric: Orientation: alert, oriented x 3 and cooperative Results & Data Vital Signs (Past 12 Hours) Vital Signs Temp Pulse Pulse Resp BP BP Pulse Ox 07/17/24 15:42 62 10/08/24 15:00 60 17 118/69 99 07/17/24 13:00 60 22 150/70 H 95 07/17/24 11:36 66 22 141/58 H 94 07/17/24 10:23 60 07/17/24 09:36 36.6 C 18 114/62 95 07/17/24 09:36 98 07/17/24 09:36 36.6 C 69 20 129/70 94 O2 Del Method 07/17/24 15:42 07/17/24 15:00 Room Air 07/17/24 13:00 Room Air 07/17/24 11:36 Room Air 07/17/24 10:23 07/17/24 09:36 Room Air 07/17/24 09:36 Room Air 07/17/24 09:36 Room Air PG Care Time/CCT Total # of Minutes Spent Total Time Spent with Patient: Total time spent is greater than 50% in coordination of care (as documented) at patient's floor/unit and/or counseling patient: Coding Level of Care Code 54443 INT INP/OBS CARE 2MIN Diagnoses Bleeding from varicose vein I83.899 CKD (chronic kidney disease), stage III N18.30 DM (diabetes mellitus), type 2 E11.9 Atrial fibrillation I48.91 Supratherapeutic INR R79.1
--- NOTE | 2024-07-17 17:27 | Communication Note ---
Date of Service: July 17, 2024 Attending Addendum: Case reviewed with the advanced practitioner. I have personally performed a history and physical examination on the patient. I have reviewed the advanced practitioner's documentation on the date of service referenced in note, and I agree with, and take responsibility for the plan of care. please refer to her notes for full details patient seen and examined, records reviewed by myself as well on exam, patient seen resting in bed, comfortable states she feels fine overall denies pain on the bleeding site or her leg no chest pain, dyspnea, palpitations, dizziness no other symptoms VS noted and reviewed oriented x 3, not in distress, speaks in sentences with no effort nor accessory muscle use normal rate, regular rhythm, no murmurs clear breath sounds bilaterally non distended, soft, nontender L lower leg: (+) pressure dressing around the knee, no bleeding or discharge no bipedal edema, erythema, warmth no neuro deficits all labs, imaging noted and reviewed ASSESSMENT AND PLAN 89 year old female with history of COPD, CAD, CHF, A fib on Coumadin, DM 2, HTN, CKD 3, presenting with spontaneous bleeding varices of the L lower leg this morning. ACUTE BLOOD LOSS ANEMIA SECONDARY TO BLEEDING OF LEFT LOWER LEG VARICES ON COUMADIN FOR ATRIAL FIBRILLATION no history of trauma to the leg, bleeding was spontaneous baseline Hg 10, on presentation Hg 9 INR 2.9 bleeding has resolved with tranexamic acid, lidocaine, pressure dressing Vit K give at the ER Gen Surg consulted- continue pressure dressing, bedrest, to be re-evaluated tomorrow repeat Hg this afternoon pending hold coumadin, hold Lasix to prevent possible hypotension in light of bleeding other diagnoses and plan of care as per advanced practitioner's notes Abhishek Campuzano MD
[2024-07-17] MEDS ORDERED: DEXTROSE 50% 50 ML SYRINGE IV PRN (17:31)
[2024-07-17] MEDS ORDERED: GLUCOSE 40% GEL 15 GM TUBE PO PRN (17:31)
[2024-07-17] MEDS ORDERED: GLUCAGON FOR INJ 1 MG VIAL SQ PRN (17:31)
[2024-07-17] MEDS ORDERED: GLUCOSE 10 TAB/TUBE PO PRN (17:31)
[2024-07-17] MEDS ORDERED: CARBOHYDRATES FOR HYPOGLYCEMIA PO PRN (17:31)
[2024-07-17 17:43] LABS: Hematocrit (blood only) 27.7 % (37.0-47.0); Hemoglobin 8.9 g/dl (12.0-16.0)
[2024-07-17] MEDS ORDERED: ONDANSETRON INJ 2 MG/ML 2 ML VIAL IV PRN (18:21)
[2024-07-17] MEDS ORDERED: INFLUENZA VACC TS2024-25(65y+)/PF (IIV3) 0.5mL Syr IM ONE (18:39)
[2024-07-17] MEDS: INSULIN ASPART PER UNIT CHARGE SC SCH (20:46)
[2024-07-17] MEDS: METOPROLOL SUCC 50MG EXT REL TAB PO SCH (20:47)
[2024-07-17] MEDS: ROSUVASTATIN CALCIUM 20 MG TAB PO SCH (20:48)
--- NOTE | 2024-07-17 22:54 | Communication Note ---
Date of Service: July 17, 2024 This patient was previously seen by [facility] surgical team regarding a bleeding varicose vein. I was called by nursing staff at approximately 10:29 PM the pressure dressing that was previously applied over her bleeding varicosity was started to bleed through the pressure dressing. I reported the bedside within 5 minutes to evaluate the patient. Nursing staff checked vitals and patient was noted to be normotensive without tachycardia. The dressing was examined and there is some blood starting to saturate through the dressing. The dressing was therefore removed and patient was noted to have some brisk bleeding at the site of her varicosity. I reapplied a temporary dressing and have the patient's legs elevated. I discussed with my attending physician and it is felt that the best course of action would be to check repeat labs (hemoglobin and hematocrit as well as an INR are currently pending). The patient's INR remains elevated consideration be given to more rapid reversal of her INR to help annmarie the bleeding. Patient has a significant drop in her hemoglobin and hematocrit transfusion may be required. I then reevaluated the patient's wound several minutes later and with the modalities noted above the amount of bleeding appeared to be somewhat decreased. I then reapplied a clean pressure dressing and the patient maintained her position in bed with her legs elevated. We also feel the patient should be on bedrest for the remainder of the evening. Will continue with the plan as noted above and await pending labs. Addendum 12:30 AM Patient's repeat labs obtained. There is no drop in her hemoglobin or hematocrit. Her INR is noted to be 1.7. Patient was revisited at the newly applied pressure dressing appears clean without any blood soaking through it. I have continued to encourage the patient to keep her legs elevated, although nursing staff said she has not been 100% compliant with this. I discussed with the primary service and noted that I will defer to them if they feel her INR needs to be further. Addendum (6:00 AM) The patient was revisited multiple times throughout the evening and the pressure dressing I reapplied has remained clean, dry, intact with no evidence of soilage or bleeding through the dressing. I have encouraged the patient to keep her legs elevated. Will wait to see what her a.m. labs are this morning. I did discuss with the nurse that she has remained hemodynamically stable without any episodes of hypotension or tachycardia throughout the evening.
[2024-07-17 23:05] LABS: Hematocrit (blood only) 27.6 % (37.0-47.0); Hemoglobin 8.9 g/dl (12.0-16.0)
[2024-07-18 00:19] LABS: INR 1.7 (0.9-1.1); Prothrombin Time 17.9 Seconds (9.0-12.0)
[2024-07-18] MEDS: LEVOTHYROXINE SODIUM 75 MCG TABLET PO SCH (05:49)
[2024-07-18 07:03] LABS: Hematocrit (blood only) 25.5 % (37.0-47.0); Hemoglobin 8.5 g/dl (12.0-16.0); Mean Corpuscular Hemoglobin 29.1 pg (25.0-34.0); Mean Corpuscular Hgb Conc 33.3 g/dL (32.0-36.0); Mean Corpuscular Volume 87.3 fL (80.0-100.0); Mean Platelet Volume 10.3 fL (9.4-12.4); Platelet Count 170 K/uL (130-400); RDW Coefficient of Variation 15.6 % (11.5-14.5); RDW Standard Deviation 50.2 fL (36.4-46.3); Red Blood Count 2.92 M/uL (4.20-5.40); White Blood Count 5.13 K/ul (4.8-10.8)
[2024-07-18 07:25] LABS: INR 1.4 (0.9-1.1); Prothrombin Time 14.6 Seconds (9.0-12.0)
[2024-07-18 07:36] LABS: BUN Creatinine Ratio 17.2 (10-20); Calcium 8.7 mg/dl (8.6-10.3); Creatinine Clr Calc Pharmacy 29.5 ml/min; Magnesium 1.9 mg/dl (1.7-2.4); Phosphorus 3.6 mg/dl (2.5-4.9); Potassium 3.6 mmol/L (3.5-5.1)
[2024-07-18] MEDS: MAGNESIUM OXIDE 400 MG TAB PO SCH (09:02)
[2024-07-18] MEDS: ISOSORBIDE MONO EXTENDED REL 30 MG TABCR PO SCH (09:02)
[2024-07-18] MEDS: MONTELUKAST SODIUM 10 MG TABLET PO SCH (09:02)
[2024-07-18] MEDS: PANTOprazole 40 MG TAB PO SCH (09:02)
[2024-07-18] MEDS: dilTIAZem HCL 240 MG CAPCR PO SCH (09:02)
[2024-07-18] MEDS: ACETAMINOPHEN 325 MG TAB PO PRN (09:54)
--- NOTE | 2024-07-18 11:03 | Surgery Progress Note ---
Date of Service July 18, 2024 Assessment & Plan (1) Chronic anticoagulation: Plan: INR now 1.4. h/h reasonably stable would not remove dressing until tomorrow. stay on bedrest. will take down dressing tomorrow to eval bleeding. pt stable (2) Acute blood loss anemia: (3) Bleeding from varicose vein: Admission and Anticipated Discharge Date Admission Date: July 17, 2024 Subjective pt seen. no leg pain. Physical Exam Constitutional: WD/WN, vitals as above no acute distress and not ill appearing Eyes: PERRL, conjunctivae normal, anicteric sclerae EOM intact bilaterally ENMT: external ear and nose normal, oropharynx normal Ears: no hearing impairment Neck: trachea midline, no thyromegaly Respiratory: normal respiratory effort; no respiratory distress and does not use accessory muscles Cardiovascular: Rate/Rhythm: regular rate and regular rhythm Gastrointestinal (Abdomen): normal bowel sounds, soft, nontender, no hepatosplenomegaly Skin: no rashes, warm and dry bandage from last night clean/dry. Psychiatric: Orientation: alert, oriented x 3 and cooperative Results & Data Vital Signs (Past 12 Hours) Vital Signs Temp Pulse Pulse Resp BP BP Pulse Ox 07/18/24 07:54 37.2 C 66 16 130/67 91 07/18/24 07:52 62 07/18/24 03:13 36.8 C 64 18 135/83 96 O2 Del Method 07/18/24 07:54 Room Air 07/18/24 07:52 07/18/24 03:13 CPAP PG Care Time/CCT Total # of Minutes Spent Total Time Spent with Patient: Total time spent is greater than 50% in coordination of care (as documented) at patient's floor/unit and/or counseling patient: Coding Level of Care Code 63724 SUB INP/OBS CARE 25MIN Diagnoses Chronic anticoagulation Z79.01 Acute blood loss anemia D62 Bleeding from varicose vein I83.899
[2024-07-18] MEDS: traMADol HCL 50 MG TABLET PO PRN (12:03)
[2024-07-18] MEDS: LIDOCAINE 5% 1 PATCH TD STA (12:39)
[2024-07-18] MEDS ORDERED: METHOCARBAMOL 500 MG TABLET PO PRN (14:03)
--- NOTE | 2024-07-18 14:06 | Hospitalist Progress Note ---
Date of Service July 18, 2024 Assessment & Plan (1) Acute blood loss anemia: (2) Bleeding from varicose vein: Plan Ms. Tori May is an 89y/o F with PMHx significant for DM type II, dyslipidemia, HTN, COPD, acquired hypothyroidism, secondary hyperparathyroidism, DAIN on CPAP, atrial fibrillation [on warfarin], SSS s/p pacemaker placement, diastolic heart failure/chronic right-sided heart failure, pulmonary hypertension, moderate mitral regurgitation, CKD stage III and thrombocytopenia who presented to the ED via EMS for evaluation of a bleeding LLE varicose vein on 07/17. General surgery consulted and pressure dressing placed over left thigh. Surgery followed multiple times given saturation of dressing overnights. Labs remained stable. INR reversed in ED from INR 2.9 to INR 1.4 this morning. Hemoglobin dropped from baseline 10-11 to 8.5 this am. Curbside to Vascular to discuss and possible vessel/varicosity ligation, inpatient v op. Will await further TT communication Patient to continue on bedrest with judicious use of analgesia given propensity for delirium #Acute Blood Loss Anemia 2/2 hemorrhage #Bleeding From LLE Varicose Vein #Chronic anticoagulation Hgb was 9.2 in the ED otherwise lab work was unremarkable. Most recent Hgb level was 10.9 on 05/04/2024. INR therapeutic at 2.9 on presentation. s/p TXA and lidocaine with epi, 10mg of IV vitamin K General surgery was consulted, reviewed recommendations -Pressure dressing in place, plan for reeval in am -continue bedrest Trend hgb in am, transfuse hgb <7.0 or symptomatic Tramadol and methocarbamol prn #Atrial Fibrillation on coumadin #SSS s/p PPM Continue Diltazem and metoprolol monitor on tele #HTN #Chronic HFpEF: Continue home metoprolol succinate, diltiazem & Imdur. Will hold home Lasix for now given acute blood loss. Close BP and volume status monitoring. Ensure hold paramaters on BP medications #DM Type II: Hold regimen, SSI regimen while inpatient. BSG checks ACHS. Most recent Hgb A1c was 6.5% on 05/04/2024. #CKD Stage III: Cr 1.34 on admission. Baseline Cr ~1.3-1.5 per chart review. Avoid nephrotoxic medications when able. Close renal monitoring with AM labs. Other Chronic Medical Conditions: COPD, HLD, GERD, hypothyroidism --> Can continue home meds for these specific conditions. Continue CPAP HS for DAIN. DVT Prophylaxis: SCDs/TEDs for now as home warfarin is on hold. Code Status: DNR/DNI - No Resuscitation PCP: Chad Phoenix DO Disposition: Observation in Med/Surg + Telemetry Patient's daughter, Grace, can be contacted at the following phone #: [phone]. She is the patient's POA. Admission and Anticipated Discharge Date Admission Date: July 17, 2024 Subjective Patient evaluated at bedside Reports back discomfort but pain around wrapping of left leg where pressure dressing applied Denies chest pain, sob, fevers, dizziness or other acute concerns Physical Exam Constitutional: WD/WN, vitals as above Respiratory: normal respiratory effort, lungs clear to auscultation Cardiovascular: RRR, no murmur, no edema Gastrointestinal (Abdomen): normal bowel sounds, soft, nontender, no hepatosplenomegaly Musculoskeletal: multiple varicosities of BLE, pressure dressing in place left thigh, pulse sensation in tact Results & Data Results & Data Vital Signs (Past 12 Hours) Vital Signs Temp Pulse Pulse Resp BP BP Pulse Ox 07/18/24 12:01 28 H 96 07/18/24 11:51 36.9 C 66 16 94/51 L 90 07/18/24 07:54 37.2 C 66 16 130/67 91 07/18/24 07:52 62 07/18/24 03:13 36.8 C 64 18 135/83 96 O2 Del Method 07/18/24 12:01 Room Air 07/18/24 11:51 Room Air 07/18/24 07:54 Room Air 07/18/24 07:52 07/18/24 03:13 CPAP Laboratory Results Short CBC 07/17/24 07/17/24 07/18/24 Range/Units 17:34 22:48 06:20 WBC 5.13 (4.8-10.8) K/ul Hgb 8.9 L 8.9 L 8.5 L (12.0-16.0) g/dl Hct 27.7 L 27.6 L 25.5 L (37.0-47.0) % Plt Count 170 (130-400) K/uL BMP 07/18/24 06:20 Sodium 140 Potassium 3.6 Chloride 103 Carbon Dioxide 30 BUN 22 Creatinine 1.28 H Glucose 101 H Calcium 8.7 Medications Administered Home Medications Medication Instructions Recorded Confirmed Last Taken pantoprazole 40 mg tablet,delayed 40 mg PO QAM ##0 12/25/14 07/17/24 04/02/22 06:00 release diltiazem HCl 240 mg 240 mg PO QAM ##0 09/30/17 07/17/24 04/01/22 09:00 tablet,extended release 24 hr metoprolol succinate 100 mg 100 mg PO BID ##0 10/15/17 07/17/24 04/01/22 09:00 tablet,extended release 24 hr sitagliptin phosphate 50 mg tablet 50 mg PO QAM #0 tabs 02/22/18 07/17/24 04/01/22 09:00 (Tammy) levothyroxine 75 mcg tablet 75 mcg PO DAILYBB 90 days #90 tabs 05/25/18 07/17/24 04/02/22 06:00 rosuvastatin 20 mg tablet 20 mg PO PM 04/14/19 07/17/24 04/01/22 17:00 furosemide 40 mg tablet 40 mg PO AMHS 09/13/23 07/17/24 Unknown magnesium oxide 400 mg PO QAM 09/13/23 07/17/24 Unknown montelukast 10 mg tablet 10 mg PO QAM 09/13/23 07/17/24 Unknown warfarin 5 mg tablet See Rx Instructions .Route .COMPLEX 09/13/23 07/17/24 Unknown isosorbide mononitrate 30 mg 15 mg PO QAM 07/17/24 07/17/24 Unknown tablet,extended release 24 hr Active Medications Generic Name Dose Route Start Last Admin Trade Name Freq PRN Reason Stop Dose Admin Acetaminophen 650 mg 07/17/24 18:21 07/18/24 09:54 Acetaminophen 325 Mg Tab PO 08/16/24 18:20 650 mg Q4H PRN Administration Pain or Fever Diltiazem HCl 240 mg 07/18/24 09:00 07/18/24 09:02 Diltiazem Hcl 240 Mg Capcr PO 08/17/24 08:59 240 mg QAM MARVIN Administration Insulin Aspart 0 units 07/17/24 21:00 07/18/24 13:15 Insulin Aspart Per Unit Charge SC 08/16/24 20:59 Not Given ACHS MARVIN Isosorbide Mononitrate 15 mg 07/18/24 09:00 07/18/24 09:02 Isosorbide [place] Extended Rel 30 Mg Tabcr PO 08/17/24 08:59 15 mg QAM MARVIN Administration Levothyroxine Sodium 75 mcg 07/18/24 06:30 07/18/24 05:49 Levothyroxine Sodium 75 Mcg Tablet PO 08/17/24 06:29 75 mcg DAILYBB MARVIN Administration Magnesium Oxide 400 mg 07/18/24 09:00 07/18/24 09:02 Magnesium Oxide 400 Mg Tab PO 08/17/24 08:59 400 mg QAM MARVIN Administration Metoprolol Succinate 100 mg 07/17/24 21:00 07/18/24 09:02 Metoprolol Succ 50mg Ext Rel Tab PO 08/16/24 20:59 100 mg BID MARVIN Administration Montelukast Sodium 10 mg 07/18/24 09:00 07/18/24 09:02 Montelukast Sodium 10 Mg Tablet PO 08/17/24 08:59 10 mg QAM MARVIN Administration Pantoprazole Sodium 40 mg 07/18/24 09:00 07/18/24 09:02 Pantoprazole 40 Mg Tab PO 08/17/24 08:59 40 mg QAM MARVIN Administration Rosuvastatin Calcium 20 mg 07/17/24 21:00 07/17/24 20:48 Rosuvastatin Calcium 20 Mg Tab PO 08/16/24 20:59 20 mg PM MARVIN Administration Tramadol HCl 50 mg 07/18/24 11:55 07/18/24 12:03 Tramadol Hcl 50 Mg Tablet PO 08/17/24 11:54 50 mg Q4H PRN Administration Severe Pain (Scale 7, 8, 9,10)
[2024-07-18 18:08] LABS: Hematocrit (blood only) 24.9 % (37.0-47.0); Hemoglobin 8.3 g/dl (12.0-16.0)
[2024-07-19] MEDS: OLANZapine 10 MG/2.1 ML SDV IM STA (03:58)
[2024-07-19 07:26] LABS: Hematocrit (blood only) 26.2 % (37.0-47.0); Hemoglobin 8.7 g/dl (12.0-16.0); Mean Corpuscular Hemoglobin 29.2 pg (25.0-34.0); Mean Corpuscular Hgb Conc 33.2 g/dL (32.0-36.0); Mean Corpuscular Volume 87.9 fL (80.0-100.0); Mean Platelet Volume 10.7 fL (9.4-12.4); Platelet Count 185 K/uL (130-400); RDW Coefficient of Variation 15.7 % (11.5-14.5); Red Blood Count 2.98 M/uL (4.20-5.40); White Blood Count 5.89 K/ul (4.8-10.8)
[2024-07-19 08:08] LABS: BUN Creatinine Ratio 17.8 (10-20); Calcium 8.8 mg/dl (8.6-10.3); Phosphorus 3.3 mg/dl (2.5-4.9); Potassium 3.7 mmol/L (3.5-5.1)
--- NOTE | 2024-07-19 08:47 | Surgery Progress Note ---
Date of Service July 19, 2024 Assessment & Plan (1) Bleeding from varicose vein: Plan: Left upper thigh varicose vein not bleeding and appears to be clotted. Gauze dressing changed and kendell wrap reapplied, would leave kendell wrap on for one more day then may cover with bandaid Patient may get OOB and ambulate as tolerated. Mental status noted to be a change from yesterday Patient does not follow commands and is nonverbal at this time Spoke with pts nurse and she reports patient was medicated for agitation and was speaking clearly this AM Reached out to hospitalist and nurse also reported she was notifying hospitalist for further workup General surgery will sign off at this time Admission and Anticipated Discharge Date Admission Date: July 17, 2024 Subjective patient did not converse or follow commands Physical Exam Skin: + wound Results & Data Vital Signs (Past 12 Hours) Vital Signs Temp Pulse Pulse Resp BP Pulse Ox O2 Del Method 07/19/24 07:58 97.3 F L 63 20 151/70 H 97 CPAP 07/19/24 03:05 97.5 F L 93 H 18 144/80 H 93 CPAP 07/18/24 21:53 64 PG Care Time/CCT Total # of Minutes Spent Total Time Spent with Patient: Total time spent is greater than 50% in coordination of care (as documented) at patient's floor/unit and/or counseling patient: Coding Level of Care Code 13218 SUB INP/OBS CARE 11/03MIN Diagnoses Bleeding from varicose vein I83.899
--- NOTE | 2024-07-19 11:12 | CT Scan Report ---
CT head/brain wo con CLINICAL HISTORY: 89 years-old Female with ams. Acutely altered mental status TECHNIQUE: Multiple axial CT images of the head were obtained without contrast. A dose lowering tech nique was utilized adhering to the principles of ALARA. CT DOSE: 547.75 mGy.cm COMPARISON: 06/12/2017. FINDINGS: No acute intracranial hemorrhage, midline shift, intracranial mass, hydrocephalus, territorial ischem ia or abnormal extra-axial collection. Involutional changes with white matter hypodensities suggestiv e of chronic microvascular ischemic disease. Cerebral vascular calcifications. The calvarium is intact. Prior bilateral lens repair. The paranasal sinuses, mastoid air cells, and m iddle ear cavities are clear. IMPRESSION: No acute intracranial abnormality. ACT 112: Negative or not required by law. The above report was generated using voice recognition software. It may contain grammatical, syntax o r spelling errors. Electronically signed by: Ambrocio Shields M.D. 07/19/2024 11:10 AM
--- NOTE | 2024-07-19 13:24 | Hospitalist Progress Note ---
Date of Service July 19, 2024 Assessment & Plan (1) Acute blood loss anemia: (2) Bleeding from varicose vein: Plan Ms. Tori May is an 89y/o F with PMHx significant for DM type II, dyslipidemia, HTN, COPD, acquired hypothyroidism, secondary hyperparathyroidism, DAIN on CPAP, atrial fibrillation [on warfarin], SSS s/p pacemaker placement, diastolic heart failure/chronic right-sided heart failure, pulmonary hypertension, moderate mitral regurgitation, CKD stage III and thrombocytopenia who presented to the ED via EMS for evaluation of a bleeding LLE varicose vein on 07/17. General surgery consulted and pressure dressing placed over left thigh. Surgery followed multiple times given saturation of dressing overnights. Labs remained stable. INR reversed in ED from INR 2.9 to INR 1.4 this morning. Hemoglobin dropped from baseline 10-11 to 8.5 this am. Curbside to Vascular to discuss and possible vessel/varicosity ligation, inpatient v op. Will await further TT communication Patient to continue on bedrest with judicious use of analgesia given propensity for delirium Course complicated by delirium and encephalopathy s/p zyprexa use Family confirms history of delirium #Acute delirium superimposed on dementia -Delirium precautions Avoid antipsychotics or benzos reorient as able CT head without acute findings #Acute Blood Loss Anemia 2/2 hemorrhage *stable #Bleeding From LLE Varicose Vein #Chronic anticoagulation Hgb was 9.2 in the ED otherwise lab work was unremarkable. Most recent Hgb level was 10.9 on 05/04/2024. INR therapeutic at 2.9 on presentation. s/p TXA and lidocaine with epi, 10mg of IV vitamin K General surgery was consulted, reviewed recommendations -Appears to be clotted -Plan to keep LILIA wrap in place -OOB as able Trend hgb in am, transfuse hgb <7.0 or symptomatic Tramadol and methocarbamol prn PT/OT ordered #Atrial Fibrillation on coumadin #SSS s/p PPM Continue Diltazem and metoprolol monitor on tele #HTN #Chronic HFpEF: Continue home metoprolol succinate, diltiazem & Imdur. Will hold home Lasix for now given acute blood loss. Close BP and volume status monitoring. Ensure hold paramaters on BP medications #DM Type II: Hold regimen, SSI regimen while inpatient. BSG checks ACHS. Most recent Hgb A1c was 6.5% on 05/04/2024. #CKD Stage III: Cr 1.34 on admission. Baseline Cr ~1.3-1.5 per chart review. Avoid nephrotoxic medications when able. Close renal monitoring with AM labs. Other Chronic Medical Conditions: COPD, HLD, GERD, hypothyroidism --> Can continue home meds for these specific conditions. Continue CPAP HS for DAIN. DVT Prophylaxis: SCDs/TEDs for now as home warfarin is on hold. Code Status: DNR/DNI - No Resuscitation PCP: Chad Phoenix DO Disposition: Observation in Med/Surg + Telemetry; admit as inpatient 2/2 delirium likely to prolong admission Patient's daughter, Grace, can be contacted at the following phone #: [phone]. She is the patient's POA. Admission and Anticipated Discharge Date Admission Date: July 17, 2024 Subjective Agitated/delirium reported overnight s/p IM zyprexa Patient oriented to self, but not following commands Revisited later in the am, speaking and following commands more consistently Physical Exam Constitutional: no distress, seemingly bewildered confused look, responds to verbal stimuli, withdrawals extremities appropriately Respiratory: normal respiratory effort, lungs clear to auscultation Cardiovascular: RRR, no murmur, no edema Results & Data Results & Data Vital Signs (Past 12 Hours) Vital Signs Temp Pulse Pulse Resp BP Pulse Ox O2 Del Method 07/19/24 08:50 36.3 C L 63 20 151/70 H 97 Room Air 07/19/24 08:00 60 07/19/24 07:58 36.3 C L 63 20 151/70 H 97 CPAP 07/19/24 03:05 36.4 C L 93 H 18 144/80 H 93 CPAP Laboratory Results Short CBC 07/18/24 07/19/24 Range/Units 17:41 07:08 WBC 5.89 (4.8-10.8) K/ul Hgb 8.3 L 8.7 L (12.0-16.0) g/dl Hct 24.9 L 26.2 L (37.0-47.0) % Plt Count 185 (130-400) K/uL BMP 07/19/24 07:08 Sodium 139 Potassium 3.7 Chloride 104 Carbon Dioxide 28 BUN 23 Creatinine 1.29 H Glucose 125 H Calcium 8.[address] 07/19/24 09:01 CT head/brain wo con CLINICAL HISTORY: 89 years-old Female with ams. Acutely altered mental status TECHNIQUE: Multiple axial CT images of the head were obtained without contrast. A dose lowering technique was utilized adhering to the principles of ALARA. CT DOSE: 547.75 mGy.cm COMPARISON: 06/12/2017. FINDINGS: No acute intracranial hemorrhage, midline shift, intracranial mass, hy drocephalus, territorial ischemia or abnormal extra-axial collection. Involutional changes with white matter hypodensities suggestive of chronic microvascular ischemic disease. Cerebral vascular calcifications. The calvarium is intact. Prior bilateral lens repair. The paranasal sinuses, mastoid air cells, and middle ear cavities are clear. IMPRESSION: No acute intracranial abnormality. ACT 112: Negative or not required by law. The above report was generated using voice recognition software. It may contain grammatical, syntax or spelling errors. Electronically signed by: Ambrocio Shields M.D. 07/19/2024 11:10 AM Medications Administered Home Medications Medication Instructions Recorded Confirmed Last Taken pantoprazole 40 mg tablet,delayed 40 mg PO QAM ##0 12/25/14 07/17/24 04/02/22 06:00 release diltiazem HCl 240 mg 240 mg PO QAM ##0 09/30/17 07/17/24 04/01/22 09:00 tablet,extended release 24 hr metoprolol succinate 100 mg 100 mg PO BID ##0 10/15/17 07/17/24 04/01/22 09:00 tablet,extended release 24 hr sitagliptin phosphate 50 mg tablet 50 mg PO QAM #0 tabs 02/22/18 07/17/24 04/01/22 09:00 (Januvia) levothyroxine 75 mcg tablet 75 mcg PO DAILYBB 90 days #90 tabs 05/25/18 07/17/24 04/02/22 06:00 rosuvastatin 20 mg tablet 20 mg PO PM 04/14/19 07/17/24 04/01/22 17:00 furosemide 40 mg tablet 40 mg PO AMHS 09/13/23 07/17/24 Unknown magnesium oxide 400 mg PO QAM 09/13/23 07/17/24 Unknown montelukast 10 mg tablet 10 mg PO QAM 09/13/23 07/17/24 Unknown warfarin 5 mg tablet See Rx Instructions .Route .COMPLEX 09/13/23 07/17/24 Unknown isosorbide mononitrate 30 mg 15 mg PO QAM 07/17/24 07/17/24 Unknown tablet,extended release 24 hr Active Medications Generic Name Dose Route Start Last Admin Trade Name Alma Delia PRN Reason Stop Dose Admin Acetaminophen 650 mg 07/17/24 18:21 07/18/24 09:54 Acetaminophen 325 Mg Tab PO 08/16/24 18:20 650 mg Q4H PRN Administration Pain or Fever Diltiazem HCl 240 mg 07/18/24 09:00 07/19/24 12:19 Diltiazem Hcl 240 Mg Capcr PO 08/17/24 08:59 240 mg QAM MARVIN Administration Insulin Aspart 0 units 07/17/24 21:00 07/19/24 11:52 Insulin Aspart Per Unit Charge SC 08/16/24 20:59 Not Given ACHS MARVIN Isosorbide Mononitrate 15 mg 07/18/24 09:00 07/19/24 12:19 Isosorbide [place] Extended Rel 30 Mg Tabcr PO 08/17/24 08:59 15 mg QAM MARVIN Administration Levothyroxine Sodium 75 mcg 07/18/24 06:30 07/19/24 12:18 Levothyroxine Sodium 75 Mcg Tablet PO 08/17/24 06:29 75 mcg DAILYBB MARVIN Administration Magnesium Oxide 400 mg 07/18/24 09:00 07/19/24 12:20 Magnesium Oxide 400 Mg Tab PO 08/17/24 08:59 400 mg QAM MARVIN Administration Metoprolol Succinate 100 mg 07/17/24 21:00 07/19/24 12:20 Metoprolol Succ 50mg Ext Rel Tab PO 08/16/24 20:59 100 mg BID MARVIN Administration Montelukast Sodium 10 mg 07/18/24 09:00 07/19/24 12:20 Montelukast Sodium 10 Mg Tablet PO 08/17/24 08:59 10 mg QAM MARVIN Administration Pantoprazole Sodium 40 mg 07/18/24 09:00 07/19/24 12:21 Pantoprazole 40 Mg Tab PO 08/17/24 08:59 40 mg QAM MARVIN Administration Rosuvastatin Calcium 20 mg 07/17/24 21:00 07/18/24 20:46 Rosuvastatin Calcium 20 Mg Tab PO 08/16/24 20:59 20 mg PM MARVIN Administration Tramadol HCl 50 mg 07/18/24 11:55 07/18/24 12:03 Tramadol Hcl 50 Mg Tablet PO 08/17/24 11:54 50 mg Q4H PRN Administration Severe Pain (Scale 7, 8, 9,10)
--- NOTE | 2024-07-19 20:50 | CT Scan Report ---
Exam(s): CT L SPINE EXAM: CT Lumbar Spine Without Intravenous Contrast CLINICAL HISTORY: Reason for exam: intractable back pain. TECHNIQUE: Axial computed tomography images of the lumbar spine without intravenous contrast. CTDI is 39.4 mGy and DLP is 951.78 mGy-cm. Automated exposure control was utilized for the study. A dose lowering technique was utilized adhering to the principles of ALARA. COMPARISON: CT abdomen/pelvis on 12/26/2014. FINDINGS: Bones: Normal alignment. No acute fracture. Sclerosis along the SI joints. Probable similar bone island in L2 vertebral body. Chronic inferior endplate compression deformity of L1. Disc spaces: Degenerative changes of the spine. Mild retrolisthesis of L2 on L3. Grade 2 anterolisthesis of L4 on L5. Mild spinal canal stenosis at L1-2. Moderate spinal canal stenosis at L2-3. Moderate spinal canal stenosis at L4-5. Moderate neural foraminal stenoses at L5- S1. Severe neural foraminal stenoses at L4-5. Moderate no foraminal stenoses at L3-4. Severe neural foraminal stenoses at L2-3. Soft tissues: Normal. Other: Atherosclerotic changes of the vasculature. IMPRESSION: 1. No acute traumatic abnormality. Chronic inferior endplate compression deformity of L1. 2. Degenerative changes as described above. Further evaluation could be performed with MRI if clinically indicated. Electronically signed by: Murray Jones M.D. 07/19/24 20:49 PM
[2024-07-20 08:24] LABS: Hematocrit (blood only) 26.3 % (37.0-47.0); Hemoglobin 8.3 g/dl (12.0-16.0); Mean Corpuscular Hemoglobin 28.6 pg (25.0-34.0); Mean Corpuscular Hgb Conc 31.6 g/dL (32.0-36.0); Mean Corpuscular Volume 90.7 fL (80.0-100.0); Mean Platelet Volume 9.9 fL (9.4-12.4); Platelet Count 175 K/uL (130-400); RDW Coefficient of Variation 15.8 % (11.5-14.5); RDW Standard Deviation 51.7 fL (36.4-46.3); White Blood Count 5.25 K/ul (4.8-10.8)
[2024-07-20] MEDS ORDERED: methylPREDNISolone 4 MG TAB, 6 DAY TAPER PO SCH (13:45)
--- NOTE | 2024-07-20 16:12 | Hospitalist Progress Note ---
Date of Service July 20, 2024 Assessment & Plan (1) Acute blood loss anemia: (2) Bleeding from varicose vein: Plan Ms. Tori May is an 89y/o F with PMHx significant for DM type II, dyslipidemia, HTN, COPD, acquired hypothyroidism, secondary hyperparathyroidism, DAIN on CPAP, atrial fibrillation [on warfarin], SSS s/p pacemaker placement, diastolic heart failure/chronic right-sided heart failure, pulmonary hypertension, moderate mitral regurgitation, CKD stage III and thrombocytopenia who presented to the ED via EMS for evaluation of a bleeding LLE varicose vein on 07/17. General surgery consulted and pressure dressing placed over left thigh. Surgery followed multiple times given saturation of dressing overnights. Labs remained stable. INR reversed in ED from INR 2.9 to INR 1.4 this morning. Hemoglobin dropped from baseline 10-11 to 8.5 this am. Curbside to Vascular to discuss and possible vessel/varicosity ligation, inpatient v op. Will await further TT communication Patient to continue on bedrest with judicious use of analgesia given propensity for delirium Course complicated by delirium and encephalopathy s/p zyprexa use Family confirms history of delirium #Acute delirium superimposed on dementia *improved -Delirium precautions Avoid antipsychotics or benzos reorient as able CT head without acute findings #Acute Blood Loss Anemia 2/2 hemorrhage *stable #Bleeding From LLE Varicose Vein #Chronic anticoagulation Hgb was 9.2 in the ED otherwise lab work was unremarkable. Most recent Hgb level was 10.9 on 05/04/2024. INR therapeutic at 2.9 on presentation. s/p TXA and lidocaine with epi, 10mg of IV vitamin K General surgery was consulted, reviewed recommendations -Appears to be clotted -Plan to keep LILIA wrap in place -OOB as able Trend hgb in am, transfuse hgb <7.0 or symptomatic Tramadol and methocarbamol prn PT/OT: plan for rehab #Acute on chronic back pain -Medrol dose mary kay Plan for rehab #Atrial Fibrillation on coumadin #SSS s/p PPM Continue Diltazem and metoprolol monitor on tele #HTN #Chronic HFpEF: Continue home metoprolol succinate, diltiazem & Imdur. Will hold home Lasix for now given acute blood loss. Close BP and volume status monitoring. Ensure hold paramaters on BP medications #DM Type II: Hold regimen, SSI regimen while inpatient. BSG checks ACHS. Most recent Hgb A1c was 6.5% on 05/04/2024. #CKD Stage III: Cr 1.34 on admission. Baseline Cr ~1.3-1.5 per chart review. Avoid nephrotoxic medications when able. Close renal monitoring with AM labs. Other Chronic Medical Conditions: COPD, HLD, GERD, hypothyroidism --> Can continue home meds for these specific conditions. Continue CPAP HS for DAIN. DVT Prophylaxis: SCDs/TEDs for now as home warfarin is on hold. Code Status: DNR/DNI - No Resuscitation PCP: Chad Phoenix DO Disposition: Observation in Med/Surg + Telemetry; admit as inpatient 2/2 delirium likely to prolong admission Patient's daughter, Grace, can be contacted at the following phone #: [phone]. She is the patient's POA. Admission and Anticipated Discharge Date Admission Date: July 19, 2024 Subjective NAEO delirium resolved; still with notable pain in left back Agreed to trial medrol dose mary kay Physical Exam Constitutional: WD/WN, vitals as above Respiratory: normal respiratory effort, lungs clear to auscultation Cardiovascular: RRR, no murmur, no edema Gastrointestinal (Abdomen): normal bowel sounds, soft, nontender, no hepatosplenomegaly Results & Data Results & Data Vital Signs (Past 12 Hours) Vital Signs Temp Pulse Pulse Resp BP BP Pulse Ox 07/20/24 16:00 61 07/20/24 15:43 36.7 C 60 17 133/72 93 07/20/24 11:59 36.4 C L 65 17 115/66 92 07/20/24 09:00 61 07/20/24 08:10 36.4 C L 64 17 150/70 H 98 07/20/24 08:00 O2 Del Method 07/20/24 16:00 07/20/24 15:43 Room Air 07/20/24 11:59 Room Air 07/20/24 09:00 07/20/24 08:10 Room Air 07/20/24 08:00 Room Air Laboratory Results Short CBC 07/20/24 Range/Units 08:05 WBC 5.25 (4.8-10.8) K/ul Hgb 8.3 L (12.0-16.0) g/dl Hct 26.3 L (37.0-47.0) % Plt Count 175 (130-400) K/uL Medications Administered Home Medications Medication Instructions Recorded Confirmed Last Taken pantoprazole 40 mg tablet,delayed 40 mg PO QAM ##0 12/25/14 07/17/24 04/02/22 06:00 release diltiazem HCl 240 mg 240 mg PO QAM ##0 09/30/17 07/17/24 04/01/22 09:00 tablet,extended release 24 hr metoprolol succinate 100 mg 100 mg PO BID ##0 10/15/17 07/17/24 04/01/22 09:00 tablet,extended release 24 hr sitagliptin phosphate 50 mg tablet 50 mg PO QAM #0 tabs 02/22/18 07/17/24 04/01/22 09:00 (Januvia) levothyroxine 75 mcg tablet 75 mcg PO DAILYBB 90 days #90 tabs 05/25/18 07/17/24 04/02/22 06:00 rosuvastatin 20 mg tablet 20 mg PO PM 04/14/19 07/17/24 04/01/22 17:00 furosemide 40 mg tablet 40 mg PO AMHS 09/13/23 07/17/24 Unknown magnesium oxide 400 mg PO QAM 09/13/23 07/17/24 Unknown montelukast 10 mg tablet 10 mg PO QAM 09/13/23 07/17/24 Unknown warfarin 5 mg tablet See Rx Instructions .Route .COMPLEX 09/13/23 07/17/24 Unknown isosorbide mononitrate 30 mg 15 mg PO QAM 07/17/24 07/17/24 Unknown tablet,extended release 24 hr Active Medications Generic Name Dose Route Start Last Admin Trade Name Freq PRN Reason Stop Dose Admin Acetaminophen 650 mg 07/17/24 18:21 07/20/24 09:43 Acetaminophen 325 Mg Tab PO 08/16/24 18:20 650 mg Q4H PRN Administration Pain or Fever Diltiazem HCl 240 mg 07/18/24 09:00 07/20/24 09:47 Diltiazem Hcl 240 Mg Capcr PO 08/17/24 08:59 240 mg QAM MARVIN Administration Insulin Aspart 0 units 07/17/24 21:00 07/20/24 12:39 Insulin Aspart Per Unit Charge SC 08/16/24 20:59 2 units ACHS MARVIN Administration Isosorbide Mononitrate 15 mg 07/18/24 09:00 07/20/24 09:47 Isosorbide [place] Extended Rel 30 Mg Tabcr PO 08/17/24 08:59 15 mg QAM MARVIN Administration Levothyroxine Sodium 75 mcg 07/18/24 06:30 07/20/24 06:13 Levothyroxine Sodium 75 Mcg Tablet PO 08/17/24 06:29 75 mcg DAILYBB MARVIN Administration Magnesium Oxide 400 mg 07/18/24 09:00 07/20/24 09:48 Magnesium Oxide 400 Mg Tab PO 08/17/24 08:59 400 mg QAM MARVIN Administration Metoprolol Succinate 100 mg 07/17/24 21:00 07/20/24 09:48 Metoprolol Succ 50mg Ext Rel Tab PO 08/16/24 20:59 100 mg BID MARVIN Administration Montelukast Sodium 10 mg 07/18/24 09:00 07/20/24 09:48 Montelukast Sodium 10 Mg Tablet PO 08/17/24 08:59 10 mg QAM MARVIN Administration Pantoprazole Sodium 40 mg 07/18/24 09:00 07/20/24 09:48 Pantoprazole 40 Mg Tab PO 08/17/24 08:59 40 mg QAM MARVIN Administration Rosuvastatin Calcium 20 mg 07/17/24 21:00 07/19/24 21:10 Rosuvastatin Calcium 20 Mg Tab PO 08/16/24 20:59 20 mg PM MARVIN Administration Tramadol HCl 50 mg 07/18/24 11:55 07/18/24 12:03 Tramadol Hcl 50 Mg Tablet PO 08/17/24 11:54 50 mg Q4H PRN Administration Severe Pain (Scale 7, 8, 9,10)
[2024-07-20] MEDS: POLYETHYLENE (MIRALAX) 17 GM PACK PO PRN (17:40)
[2024-07-20] MEDS: methylPREDNISolone 4 MG TAB PO SCH ×2 (17:41→20:48)
[2024-07-21] MEDS: methylPREDNISolone 4 MG TAB PO SCH ×2 (06:31→20:47)
--- NOTE | 2024-07-21 12:08 | Hospitalist Progress Note ---
Date of Service July 21, 2024 Assessment & Plan (1) Acute blood loss anemia: (2) Bleeding from varicose vein: Plan Ms. Tori May is an 89y/o F with PMHx significant for DM type II, dyslipidemia, HTN, COPD, acquired hypothyroidism, secondary hyperparathyroidism, DAIN on CPAP, atrial fibrillation [on warfarin], SSS s/p pacemaker placement, diastolic heart failure/chronic right-sided heart failure, pulmonary hypertension, moderate mitral regurgitation, CKD stage III and thrombocytopenia who presented to the ED via EMS for evaluation of a bleeding LLE varicose vein on 07/17. General surgery consulted and pressure dressing placed over left thigh. Surgery followed multiple times given saturation of dressing overnights. Labs remained stable. INR reversed in ED from INR 2.9 to INR 1.4 this morning. Hemoglobin dropped from baseline 10-11 to 8.5 this am. Curbside to Vascular to discuss and possible vessel/varicosity ligation, inpatient v op. Will await further TT communication Patient to continue on bedrest with judicious use of analgesia given propensity for delirium Course complicated by delirium and encephalopathy s/p zyprexa use Family confirms history of delirium Encephalopathy resolved. Back pain much improved with medrol dose mary kay. Pending placement at this time. #Acute delirium superimposed on dementia *stable -Delirium precautions Avoid antipsychotics or benzos reorient as able CT head without acute findings #Acute Blood Loss Anemia 2/2 hemorrhage *stable #Bleeding From LLE Varicose Vein #Chronic anticoagulation Hgb was 9.2 in the ED otherwise lab work was unremarkable. Most recent Hgb level was 10.9 on 05/04/2024. INR therapeutic at 2.9 on presentation. s/p TXA and lidocaine with epi, 10mg of IV vitamin K General surgery was consulted, reviewed recommendations -Appears to be clotted -Plan to keep LILIA wrap in place -OOB as able Trend hgb in am, transfuse hgb <7.0 or symptomatic Tramadol and methocarbamol prn PT/OT: plan for rehab #Acute on chronic back pain *improved -Medrol dose mary kay Plan for rehab #Atrial Fibrillation on coumadin #SSS s/p PPM Continue Diltazem and metoprolol monitor on tele #HTN #Chronic HFpEF: Continue home metoprolol succinate, diltiazem & Imdur. Will hold home Lasix for now given acute blood loss. Close BP and volume status monitoring. Ensure hold paramaters on BP medications #DM Type II: Hold regimen, SSI regimen while inpatient. BSG checks ACHS. Most recent Hgb A1c was 6.5% on 05/04/2024. #CKD Stage III: Cr 1.34 on admission. Baseline Cr ~1.3-1.5 per chart review. Avoid nephrotoxic medications when able. stable Other Chronic Medical Conditions: COPD, HLD, GERD, hypothyroidism --> Can continue home meds for these specific conditions. Continue CPAP HS for DAIN. DVT Prophylaxis: SCDs/TEDs for now as home warfarin is on hold. Code Status: DNR/DNI - No Resuscitation PCP: Chad Phoenix DO Disposition: Observation in Med/Surg + Telemetry; admit as inpatient 2/2 delirium likely to prolong admission Patient's daughter, Grace, can be contacted at the following phone #: [phone]. She is the patient's POA. Admission and Anticipated Discharge Date Admission Date: July 19, 2024 Subjective Reports feeling much improved today States steroid burst seems to be helping symptoms Denies any acute concerns today Physical Exam Constitutional: WD/WN, vitals as above Respiratory: normal respiratory effort, lungs clear to auscultation Cardiovascular: RRR, no murmur, no edema Gastrointestinal (Abdomen): normal bowel sounds, soft, nontender, no hepatosplenomegaly Results & Data Results & Data Vital Signs (Past 12 Hours) Vital Signs Temp Pulse Pulse Resp BP BP Pulse Ox 07/21/24 11:40 36.7 C 60 16 150/63 H 93 07/21/24 08:50 07/21/24 07:55 36.5 C 60 16 174/80 H 95 07/21/24 07:15 61 07/21/24 03:31 36.4 C L 60 18 102/61 94 07/21/24 01:00 62 O2 Del Method 07/21/24 11:40 Room Air 07/21/24 08:50 Room Air 07/21/24 07:55 Room Air 07/21/24 07:15 07/21/24 03:31 CPAP 07/21/24 01:00 Medications Administered Home Medications Medication Instructions Recorded Confirmed Last Taken pantoprazole 40 mg tablet,delayed 40 mg PO QAM ##0 03/1807/17/24 04/02/22 06:00 release diltiazem HCl 240 mg 240 mg PO QAM ##0 09/30/17 07/17/24 04/01/22 09:00 tablet,extended release 24 hr metoprolol succinate 100 mg 100 mg PO BID ##0 10/15/17 07/17/24 04/01/22 09:00 tablet,extended release 24 hr sitagliptin phosphate 50 mg tablet 50 mg PO QAM #0 tabs 02/22/18 07/17/24 04/01/22 09:00 (Januvia) levothyroxine 75 mcg tablet 75 mcg PO DAILYBB 90 days #90 tabs 05/25/18 07/17/24 04/02/22 06:00 rosuvastatin 20 mg tablet 20 mg PO PM 04/14/19 07/17/24 04/01/22 17:00 furosemide 40 mg tablet 40 mg PO AMHS 09/13/23 07/17/24 Unknown magnesium oxide 400 mg PO QAM 09/13/23 07/17/24 Unknown montelukast 10 mg tablet 10 mg PO QAM 09/13/23 07/17/24 Unknown warfarin 5 mg tablet See Rx Instructions .Route .COMPLEX 09/13/23 07/17/24 Unknown isosorbide mononitrate 30 mg 15 mg PO QAM 07/17/24 07/17/24 Unknown tablet,extended release 24 hr Active Medications Generic Name Dose Route Start Last Admin Trade Name Freq PRN Reason Stop Dose Admin Acetaminophen 650 mg 07/17/24 18:21 07/20/24 20:47 Acetaminophen 325 Mg Tab PO 08/16/24 18:20 650 mg Q4H PRN Administration Pain or Fever Diltiazem HCl 240 mg 07/18/24 09:00 07/21/24 09:03 Diltiazem Hcl 240 Mg Capcr PO 08/17/24 08:59 240 mg QAM MARVIN Administration Insulin Aspart 0 units 07/17/24 21:00 07/21/24 09:12 Insulin Aspart Per Unit Charge SC 08/16/24 20:59 1 units ACHS MARVIN Administration Isosorbide Mononitrate 15 mg 07/18/24 09:00 07/21/24 09:01 Isosorbide [place] Extended Rel 30 Mg Tabcr PO 08/17/24 08:59 15 mg QAM MARVIN Administration Levothyroxine Sodium 75 mcg 07/18/24 06:30 07/21/24 06:32 Levothyroxine Sodium 75 Mcg Tablet PO 08/17/24 06:29 75 mcg DAILYBB MARVIN Administration Magnesium Oxide 400 mg 07/18/24 09:00 07/21/24 09:03 Magnesium Oxide 400 Mg Tab PO 08/17/24 08:59 400 mg QAM MARVIN Administration Methylprednisolone 4 mg 07/20/24 18:00 07/20/24 17:41 Methylprednisolone 4 Mg Tab PO 07/21/24 13:01 4 mg 1300,1800 MARVIN Administration Methylprednisolone 4 mg 07/21/24 07:00 07/21/24 06:31 Methylprednisolone 4 Mg Tab PO 07/21/24 18:01 4 mg 0700,1300,1800 MARVIN Administration Metoprolol Succinate 100 mg 07/17/24 21:00 07/21/24 09:02 Metoprolol Succ 50mg Ext Rel Tab PO 08/16/24 20:59 100 mg BID MARVIN Administration Montelukast Sodium 10 mg 07/18/24 09:00 07/21/24 09:03 Montelukast Sodium 10 Mg Tablet PO 08/17/24 08:59 10 mg QAM MARVIN Administration Pantoprazole Sodium 40 mg 07/18/24 09:00 07/21/24 09:03 Pantoprazole 40 Mg Tab PO 08/17/24 08:59 40 mg QAM MARVIN Administration Polyethylene Glycol 17 gm 07/17/24 18:21 07/20/24 17:40 Polyethylene (Miralax) 17 Gm Pack PO 08/16/24 18:20 17 gm DAILY PRN Administration Constipation Rosuvastatin Calcium 20 mg 07/17/24 21:00 07/20/24 20:49 Rosuvastatin Calcium 20 Mg Tab PO 08/16/24 20:59 20 mg PM MARVIN Administration Tramadol HCl 50 mg 07/18/24 11:55 07/18/24 12:03 Tramadol Hcl 50 Mg Tablet PO 08/17/24 11:54 50 mg Q4H PRN Administration Severe Pain (Scale 7, 8, 9,10)
[2024-07-21] MEDS ORDERED: traMADol HCL 50 MG TABLET PO PRN (17:54)
[2024-07-21] MEDS: DICLOFENAC SOD 1% GEL 100 GM TUBE EXT SCH (20:46)
[2024-07-21] MEDS: ACETAMINOPHEN 500 MG TAB PO SCH (20:51)
[2024-07-22 03:38] LABS: Appearance Urine Clear (Clear); Bilirubin Urine Negative (Negative); Blood Urine Negative (Negative); Color Urine Yellow; Glucose Urine UA Negative (Negative); Ketones Urine Negative (Negative); Leukocyte Esterase Urine Negative (Negative); Nitrite Urine Negative (Negative); Protein Urine Negative (Negative); Specific Gravity Urine 1.011 (1.000-1.030); Urobilinogen Urine Negative (Negative)
[2024-07-22 06:39] LABS: Hematocrit (blood only) 24.2 % (37.0-47.0); Mean Corpuscular Hemoglobin 29.2 pg (25.0-34.0); Mean Corpuscular Hgb Conc 33.1 g/dL (32.0-36.0); Mean Corpuscular Volume 88.3 fL (80.0-100.0); Mean Platelet Volume 10.1 fL (9.4-12.4); Platelet Count 207 K/uL (130-400); RDW Coefficient of Variation 15.7 % (11.5-14.5); RDW Standard Deviation 50.2 fL (36.4-46.3); Red Blood Count 2.74 M/uL (4.20-5.40); White Blood Count 6.95 K/ul (4.8-10.8)
[2024-07-22 06:47] LABS: BUN Creatinine Ratio 24.8 (10-20); Calcium 8.8 mg/dl (8.6-10.3); Creatinine Clr Calc Pharmacy 33.1 ml/min; Potassium 4.3 mmol/L (3.5-5.1)
[2024-07-22] MEDS: methylPREDNISolone 4 MG TAB PO SCH (08:10)
[2024-07-22] MEDS ORDERED: CYCLOBENZAPRINE HCL 5 MG TAB PO PRN (08:44)
--- NOTE | 2024-07-22 09:55 | Hospitalist Progress Note ---
Date of Service July 22, 2024 Assessment & Plan (1) Acute blood loss anemia: (2) Bleeding from varicose vein: Plan Ms. Tori May is an 89y/o F with PMHx significant for DM type II, dyslipidemia, HTN, COPD, acquired hypothyroidism, secondary hyperparathyroidism, DAIN on CPAP, atrial fibrillation [on warfarin], SSS s/p pacemaker placement, diastolic heart failure/chronic right-sided heart failure, pulmonary hypertension, moderate mitral regurgitation, CKD stage III and thrombocytopenia who presented to the ED via EMS for evaluation of a bleeding LLE varicose vein on 07/17. General surgery consulted and pressure dressing placed over left thigh. Surgery followed multiple times given saturation of dressing overnights. Labs remained stable. INR reversed in ED from INR 2.9 to INR 1.4 this morning. Hemoglobin dropped from baseline 10-11 to 8.5 this am. Curbside to Vascular to discuss and possible vessel/varicosity ligation, inpatient v op. Will await further TT communication Patient to continue on bedrest with judicious use of analgesia given propensity for delirium Course complicated by delirium and encephalopathy s/p zyprexa use Family confirms history of delirium Encephalopathy/delirium intermittent. Back pain much improved with medrol dose mary kay, however seems to recurr with positioning issues. Will trial flexeril rather than tramadol for "spasm" like discomfort. Pending placement at this time. #Acute delirium superimposed on dementia *stable -Delirium precautions Avoid antipsychotics or benzos reorient as able CT head without acute findings Ua negative #Acute Blood Loss Anemia 2/2 hemorrhage *stable #Bleeding From LLE Varicose Vein #Chronic anticoagulation Hgb was 9.2 in the ED otherwise lab work was unremarkable. Most recent Hgb level was 10.9 on 05/04/2024. INR therapeutic at 2.9 on presentation. s/p TXA and lidocaine with epi, 10mg of IV vitamin K General surgery was consulted, reviewed recommendations -Appears to be clotted -Plan to keep LILIA wrap in place -OOB as able Trend hgb in am, transfuse hgb <7.0 or symptomatic Discontinued tramadol for pain PT/OT: plan for rehab #Acute on chronic back pain *improved -Medrol dose mary kay -trial flexeril given pain sounds similar to spasm Plan for rehab #Atrial Fibrillation on coumadin #SSS s/p PPM Continue Diltazem and metoprolol monitor on tele #HTN #Chronic HFpEF: Continue home metoprolol succinate, diltiazem & Imdur. Will hold home Lasix for now given acute blood loss. Close BP and volume status monitoring. Ensure hold paramaters on BP medications #DM Type II: Hold regimen, SSI regimen while inpatient. BSG checks ACHS. Most recent Hgb A1c was 6.5% on 05/04/2024. #CKD Stage III: Cr 1.34 on admission. Baseline Cr ~1.3-1.5 per chart review. Avoid nephrotoxic medications when able. stable Other Chronic Medical Conditions: COPD, HLD, GERD, hypothyroidism --> Can continue home meds for these specific conditions. Continue CPAP HS for DAIN. DVT Prophylaxis: SCDs/TEDs for now as home warfarin is on hold. Code Status: DNR/DNI - No Resuscitation PCP: Chad Phoenix DO Disposition: Observation in Med/Surg + Telemetry; admit as inpatient 2/2 delirium likely to prolong admission and now rehab placement Patient's daughter, Grace, can be contacted at the following phone #: [phone]. She is the patient's POA. Admission and Anticipated Discharge Date Admission Date: July 19, 2024 Subjective NAEO Denies any concerns Physical Exam Constitutional: sitting in bedside chair eating breakfast Respiratory: normal respiratory effort, lungs clear to auscultation Cardiovascular: RRR, no murmur, no edema Musculoskeletal: left bandage over varicosity with recent bleed, clean dry and intact Results & Data Results & Data Vital Signs (Past 12 Hours) Vital Signs Temp Pulse Resp BP Pulse Ox O2 Del Method 07/22/24 07:37 36.6 C 65 18 119/74 99 Room Air Laboratory Results Short CBC 07/22/24 Range/Units 05:59 WBC 6.95 (4.8-10.8) K/ul Hgb 8.0 L (12.0-16.0) g/dl Hct 24.2 L (37.0-47.0) % Plt Count 207 (130-400) K/uL BMP 07/22/24 05:59 Sodium 137 Potassium 4.3 Chloride 104 Carbon Dioxide 27 BUN 28 H Creatinine 1.13 Glucose 163 H Calcium 8.8 Urine 07/22/24 Range/Units 03:20 Urine Color Yellow Urine Appearance Clear (Clear) Urine pH 6.0 (4.5-7.5) Ur Specific [place] 1.011 (1.000-1.030) Urine Protein Negative (Negative) Urine Glucose (UA) Negative (Negative) Medications Administered Home Medications Medication Instructions Recorded Confirmed Last Taken pantoprazole 40 mg tablet,delayed 40 mg PO QAM ##0 12/25/14 07/17/24 04/02/22 06:00 release diltiazem HCl 240 mg 240 mg PO QAM ##0 09/30/17 07/17/24 04/01/22 09:00 tablet,extended release 24 hr metoprolol succinate 100 mg 100 mg PO BID ##0 10/15/17 07/17/24 04/01/22 09:00 tablet,extended release 24 hr sitagliptin phosphate 50 mg tablet 50 mg PO QAM #0 tabs 02/22/18 07/17/24 04/01/22 09:00 (Januvia) levothyroxine 75 mcg tablet 75 mcg PO DAILYBB 90 days #90 tabs 05/25/18 07/17/24 04/02/22 06:00 rosuvastatin 20 mg tablet 20 mg PO PM 04/14/19 07/17/24 04/01/22 17:00 furosemide 40 mg tablet 40 mg PO AMHS 09/13/23 07/17/24 Unknown magnesium oxide 400 mg PO QAM 09/13/23 07/17/24 Unknown montelukast 10 mg tablet 10 mg PO QAM 09/13/23 07/17/24 Unknown warfarin 5 mg tablet See Rx Instructions .Route .COMPLEX 09/13/23 07/17/24 Unknown isosorbide mononitrate 30 mg 15 mg PO QAM 07/17/24 07/17/24 Unknown tablet,extended release 24 hr Active Medications Generic Name Dose Route Start Last Admin Trade Name Freq PRN Reason Stop Dose Admin Acetaminophen 1,000 mg 07/21/24 22:00 07/22/24 05:53 Acetaminophen 500 Mg Tab PO 08/20/24 21:59 1,000 mg Q8H MARVIN Administration Diclofenac Sodium 4 gm 07/21/24 18:00 07/22/24 09:32 Diclofenac Sod 1% Gel 100 Gm Tube EXT 08/20/24 17:59 4 gm Q8H MARVIN Administration Protocol Diltiazem HCl 240 mg 07/18/24 09:00 07/22/24 08:12 Diltiazem Hcl 240 Mg Capcr PO 08/17/24 08:59 240 mg QAM MARVIN Administration Insulin Aspart 0 units 07/17/24 21:00 07/22/24 09:26 Insulin Aspart Per Unit Charge SC 08/16/24 20:59 5 units ACHS MARVIN Administration Isosorbide Mononitrate 15 mg 07/18/24 09:00 07/22/24 08:11 Isosorbide [place] Extended Rel 30 Mg Tabcr PO 08/17/24 08:59 15 mg QAM MARVIN Administration Levothyroxine Sodium 75 mcg 07/18/24 06:30 07/22/24 05:53 Levothyroxine Sodium 75 Mcg Tablet PO 08/17/24 06:29 75 mcg DAILYBB MARVIN Administration Magnesium Oxide 400 mg 07/18/24 09:00 07/22/24 08:13 Magnesium Oxide 400 Mg Tab PO 08/17/24 08:59 400 mg QAM MARVIN Administration Methylprednisolone 4 mg 07/22/24 07:00 07/22/24 08:10 Methylprednisolone 4 Mg Tab PO 07/22/24 21:01 4 mg 0700,1300,1800,2100 MARVIN Administration Metoprolol Succinate 100 mg 07/17/24 21:00 07/22/24 08:11 Metoprolol Succ 50mg Ext Rel Tab PO 08/16/24 20:59 100 mg BID MARVIN Administration Montelukast Sodium 10 mg 07/18/24 09:00 07/22/24 08:12 Montelukast Sodium 10 Mg Tablet PO 08/17/24 08:59 10 mg QAM MARVIN Administration Pantoprazole Sodium 40 mg 07/18/24 09:00 07/22/24 08:11 Pantoprazole 40 Mg Tab PO 08/17/24 08:59 40 mg QAM MARVIN Administration Polyethylene Glycol 17 gm 07/17/24 18:21 07/20/24 17:40 Polyethylene (Miralax) 17 Gm Pack PO 08/16/24 18:20 17 gm DAILY PRN Administration Constipation Rosuvastatin Calcium 20 mg 07/17/24 21:00 07/21/24 20:47 Rosuvastatin Calcium 20 Mg Tab PO 08/16/24 20:59 20 mg PM MARVIN Administration
[2024-07-22] MEDS: LACTATED RINGER'S 1,000 ML IV SCH (16:30)
[2024-07-22] MEDS: FUROSEMIDE 40 MG TAB PO SCH (21:21)
[2024-07-22 23:37] VITALS: RESP 18
[2024-07-23] MEDS: methylPREDNISolone 4 MG TAB PO SCH (06:06)
[2024-07-23 07:52] VITALS: PULSE 61; TEMP 97.5; O2SAT 95
--- NOTE | 2024-07-23 11:16 | Discharge Summary ---
Discharge Summary Date of Service July 23, 2024 Principal Dx & Hospital Course #1 = Principal Diagnosis (1) Acute blood loss anemia: (2) Bleeding from varicose vein: Plan Ms. Tori May is an 89y/o F with PMHx significant for DM type II, dyslipidemia, HTN, COPD, acquired hypothyroidism, secondary hyperparathyroidism, DAIN on CPAP, atrial fibrillation [on warfarin], SSS s/p pacemaker placement, diastolic heart failure/chronic right-sided heart failure, pulmonary hypertension, moderate mitral regurgitation, CKD stage III and thrombocytopenia who presented to the ED via EMS for evaluation of a bleeding LLE varicose vein on 07/17. General surgery consulted and pressure dressing placed over left thigh. Surgery followed multiple times given saturation of dressing overnights. Labs remained stable. INR reversed in ED from INR 2.9 to INR 1.4 this morning. Hemoglobin dropped from baseline 10-11 to 8.5 this am. Curbside to Vascular to discuss and possible vessel/varicosity ligation, inpatient v op. Will await further TT communication Patient to continue on bedrest with judicious use of analgesia given propensity for delirium Course complicated by delirium and encephalopathy s/p zyprexa use Family confirms history of delirium Encephalopathy/delirium intermittent. Back pain much improved with medrol dose mary kay, however seems to recurr with positioning issues. Patient with improved back pain on day of discharge and reports success with pain control with voltaren. On day of discharge, patient was at baseline per family. Wound on leg inspected with no signs of superimposed cellutlitis or concerns. Patient eating well and pleasant. #Acute delirium superimposed on dementia *resolved -Delirium precautions Avoid antipsychotics or benzos reorient as able CT head without acute findings Ua negative #Acute Blood Loss Anemia 2/2 hemorrhage *stable #Bleeding From LLE Varicose Vein #Chronic anticoagulation Hgb was 9.2 in the ED otherwise lab work was unremarkable. Most recent Hgb level was 10.9 on 05/04/2024. INR therapeutic at 2.9 on presentation. s/p TXA and lidocaine with epi, 10mg of IV vitamin K General surgery was consulted, reviewed recommendations -Appears to be clotted -Bandaid placed over wound, LILIA for comfort/compression -OOB as able Trend hgb in am, transfuse hgb <7.0 or symptomatic Discontinued tramadol for pain PT/OT: plan for rehab #Acute on chronic back pain *improved -Medrol dose mary kay -trial flexeril given pain sounds similar to spasm Plan for rehab #Atrial Fibrillation on coumadin #SSS s/p PPM Continue Diltazem and metoprolol Hold coumadin until follow up with PCP to discuss risk/benefits of resumption #HTN #Chronic HFpEF: Continue home metoprolol succinate, diltiazem & Imdur. continue home furosemide #DM Type II: resume home regimen #CKD Stage III: Cr 1.34 on admission. Baseline Cr ~1.3-1.5 per chart review. Avoid nephrotoxic medications when able. stable Other Chronic Medical Conditions: COPD, HLD, GERD, hypothyroidism --> Can continue home meds for these specific conditions. Continue CPAP HS for DAIN. Notes For Next Care Provider Consider vascular OP referral as family would like to pursue surgical options for multiple varicosities Exchange bandaid daily, compression stockings recommended Medication Changes From Visit Holding Warfarin for now until scab/wound heals as it is in a high friction area-discuss with family risk benefit of resumption Complete Medrol dose pack: 07/23 @ 2100, 07/24 @ 0700,2100, 07/23 @ 0700 Volatren prn for left-side back Admission HPI Per Admitting Provider Tori May is an 89y/o F with PMHx significant for DM type II, dyslipidemia, HTN, COPD, acquired hypothyroidism, secondary hyperparathyroidism, DAIN on CPAP, atrial fibrillation [on warfarin], SSS s/p pacemaker placement, diastolic heart failure/chronic right-sided heart failure, pulmonary hypertension, moderate mitral regurgitation, CKD stage III and thrombocytopenia who presented to the ED via EMS for evaluation of a bleeding LLE varicose vein. History obtained from patient and associated chart review. Patient noticed blood dripping from her LLE while she was in the shower this morning. Mentions blood was protruding from a varicose vein on the medical aspect of her LLE around the area of her knee. Unsure of how long this area was bleeding however she noticed a lot of blood at the base of the shower. She takes warfarin for history of A-fib. Denies any trauma to this area. No chest pain, SOB or lightheadedness/dizziness. Her granddaughter had called EMS. EMS had applied a pressure dressing at the scene. Her hemoglobin was 9.2 in the ED. Most recent previous hemoglobin level was 10.9 on 05/04/2024. INR therapeutic at 2.9 on presentation. Patient did have TXA and lidocaine with epi applied with gauze to the area as well as a pressure dressi ng. Patient was also given 10mg of IV vitamin K. General surgery was consulted in the ED. No surgical intervention warranted at this time. Admission Exam Per Admitting Provider VS noted and reviewed oriented x 3, not in distress, speaks in sentences with no effort nor accessory muscle use normal rate, regular rhythm, no murmurs clear breath sounds bilaterally non distended, soft, nontender L lower leg: (+) pressure dressing around the knee, no bleeding or discharge no bipedal edema, erythema, warmth no neuro deficits Discharge Exam Constitutional WD/WN, vitals as above Respiratory normal respiratory effort, lungs clear to auscultation Cardiovascular RRR, no murmur, no edema Updated Medication List Medication Instructions Recorded Confirmed Type pantoprazole 40 mg tablet,delayed 40 mg PO QAM ##0 12/25/14 07/17/24 History release diltiazem HCl 240 mg 240 mg PO QAM ##0 09/30/17 07/17/24 History tablet,extended release 24 hr metoprolol succinate 100 mg 100 mg PO BID ##0 10/15/17 07/17/24 History tablet,extended release 24 hr sitagliptin phosphate 50 mg tablet 50 mg PO QAM #0 tabs 02/22/18 07/17/24 History (Januvia) levothyroxine 75 mcg tablet 75 mcg PO DAILYBB 90 days #90 tabs 05/25/18 07/17/24 History rosuvastatin 20 mg tablet 20 mg PO PM 04/14/19 07/17/24 History furosemide 40 mg tablet 40 mg PO AMHS 09/13/23 07/17/24 History magnesium oxide 400 mg PO QAM 09/13/23 07/17/24 History montelukast 10 mg tablet 10 mg PO QAM 09/13/23 07/17/24 History warfarin 5 mg tablet See Rx Instructions .Route .COMPLEX 09/13/23 07/17/24 History isosorbide mononitrate 30 mg 15 mg PO QAM 07/17/24 07/17/24 History tablet,extended release 24 hr diclofenac sodium 1 % topical gel 4 g EXT Q8H #0 grams 07/23/24 Rx (Voltaren Arthritis Pain) methylprednisolone 4 mg tablet 4 mg PO 0700 #0 tabs 07/23/24 Rx methylprednisolone 4 mg tablet 4 mg PO 0700,1300,2100 #0 tabs 07/23/24 Rx methylprednisolone 4 mg tablet 4 mg PO 0700,2100 #0 tabs 07/23/24 Rx Hospital Stay Data Consultations 07/17/24 14:21 Consult General Surgery Routine 07/17/24 17:37 ED Decision to Admit Stat Diagnostic Imagining Performed 07/19/24 09:01 CT head/brain wo con Urgent 07/19/24 19:04 CT lumbar spine wo con Routine Pending Results Patient Have Any Pending Studies at Discharge: No Discharge Instructions Given to Patient (Per Discharging Provider) You were admitted for bleeding from your varicose vein on the left lower leg. You required a pressure dressing and your Coumadin was held. Your course was complicated by back pain and you were started on a steroid taper. Please continue the following steroid taper: Methylprednisolone 4m/14 at 9pm 07/24 at 7am and 9 pm 07/25 at 7am Then the course is complete You can continue the voltaren topical to your back for back as needed every 8 hours. Please hold your coumadin and disucss resumption with your PCP upon discharge for Rehab Please ensure you request a Vascular consult to follow up on your varicosities as an outpatient Compression stockings are recommended Please keep area covered with a bandaid daily until healed. Total Time Total Time Spent Total Time Spent (In Minutes): 45
[2024-07-23 11:20] VITALS: BP 166/75
[2024-07-24] MEDS ORDERED: methylPREDNISolone 4 MG TAB PO SCH (07:00)
[2024-07-25] MEDS ORDERED: methylPREDNISolone 4 MG TAB PO SCH (07:00)
== END 2024-07-23 14:12 | DRG 299 ==
LOC: ED 09:48 → 2W 09:48 → SUATTDRO 17:02 → 2W 18:31 → SUATTDRO 07-19 13:17 → 3E 07-23 03:13

== ENCOUNTER 2024-07-30 15:51 | Inpatient (IN) ==
[2024-07-30 16:21] LABS: Basophils # (auto) 0.03 K/uL (0.00-0.20); Basophils % (auto) 0.3 %; Eosinophils # (auto) 0.19 K/uL (0.00-0.50); Eosinophils % (auto) 2.2 %; Hematocrit (blood only) 31.8 % (37.0-47.0); Hemoglobin 10.2 g/dl (12.0-16.0); Immature Granulocytes # (auto) 0.04 K/uL (0.01-0.20); Immature Granulocytes % (auto) 0.5 %; Lymphocytes % (auto) 17.2 %; Mean Corpuscular Hemoglobin 28.4 pg (25.0-34.0); Mean Corpuscular Hgb Conc 32.1 g/dL (32.0-36.0); Mean Corpuscular Volume 88.6 fL (80.0-100.0); Mean Platelet Volume 10.3 fL (9.4-12.4); Monocytes # (auto) 1.24 K/uL (0.11-0.59); Monocytes % (auto) 14.3 %; Neutrophils % (auto) 65.5 %; Platelet Count 294 K/uL (130-400); RDW Standard Deviation 48.4 fL (36.4-46.3); Red Blood Count 3.59 M/uL (4.20-5.40)
--- NOTE | 2024-07-30 16:25 | Emergency Department Note ---
Impression & Plan Chest pain, Non-ST elevation FL (NSTEMI), Pulmonary emboli ED Provider Note HISTORY OF PRESENT ILLNESS: Patient is an 89-year-old female presenting with chest pain. Patient reportedly was at home sitting in her chair and she started complaining of chest pain. Daughter has been taking care of her since the patient's discharge from [facility]. Daughter reports that she has had difficulties keeping track of the medications that the patient is supposed to be taking. Reports that the patient had low blood pressures after leaving [facility] and so she had stopped giving the patient the metoprolol, diltiazem and isosorbide. However, she called the doctor and was told that the medication she was supposed to only stop was isosorbide. States the patient has been off of her anticoagulant since she presented to the ER with a bleeding leg a few weeks ago. She has a history of A-fib. Daughter reports that the patient was more hypoxic than normal on her baseline 3 L nasal cannula and had saturations in the 70s with her chest pain. Patient complained of substernal and left-sided chest pain that started randomly. She was given 320 mg aspirin and a spray of nitroglycerin prehospital. After initial nitroglycerin spray, the patient became hypotensive with a systolic blood pressure in the 80s. They administered some normal saline fluid to help improve the patient's blood pressure. Patient does not have any history of cardiac stents, but does have a pacemaker in place. On arrival to the ER, the patient is chest pain-free. She denies any nausea or significant shortness of breath with the chest pain episode. She denies ever having chest pain like this before. Denies any recent cough or fevers. Denies any abdominal pain, nausea or vomiting. ROS: as above PHYSICAL EXAM: Constitutional: Patient appears in no acute distress. HENT: Head: Normocephalic and atraumatic. Eyes: EOMI, PERRL Mouth/Throat: Mucous membranes moist. Neck: Trachea midline. Neck supple. Cardiovascular: Paced rhythm. No murmurs, rubs or gallops. Intact distal pulses. Pulmonary/Chest: No respiratory distress. Breath sounds clear and equal bilaterally. No wheezes or rales. Abdominal: Abdomen soft, no tenderness, rebound or guarding. Musculoskeletal: No edema, tenderness or deformity noted. Skin: Warm and dry. No rash, erythema, pallor or cyanosis Psychiatric: Appropriate mood and affect for situation. Neurological: Alert and keenly responsive. CN II-XII grossly intact, moving all extremities equally and fully. MDM: - Vitals signs showed hypotension and tachycardia - History obtained via patient and patient's daughter. History as above. - Chronic conditions affecting care: DM-2; HLD; HTN; COPD; hypothyroidism; hyperparathyroidism; DAIN; Afib; SSS (s/p pacemaker placement); CHF; CKD; pulmonary hypertension - Differential diagnoses include, but are not limited to: Acute coronary syndrome; pulmonary embolism; dissection; tension pneumothorax; esophageal rupture; pneumonia - Order placed for continuous cardiac monitoring. At this time, monitor showed rate of 60 bpm with paced rhythm, per my interpretation. - External medical records reviewed. Discharge summary dated 07/23/2024 was reviewed. Patient was admitted for bleeding varicose vein acute blood loss anemia. Her warfarin was held at discharge. - EKG interpreted by myself showed ventricular paced rhythm. Rate 78 bpm. - Laboratory workup interpreted by myself showed normal WBC; anemia (Hgb 10.2); normal PT/INR; elevated D dimer (7390); elevated creatinine (Cr 1.74); elevated troponin (22.9); elevated lipase - CXR negative for pneumonia but noted to have some pulmonary vascular congestion, per my interpretation. - Repeat troponin elevated but trending down to 19.6 - Patient was given aspirin and nitro prehospital. She is chest pain-free in the emergency department. - CT PE showed mild burden and subsegmental right sided pulmonary embolism. Noted to have severe cardiomegaly and right sided heart strain and possible CHF which is stable. - Discussion was had with piano case maker about patient's case and need for admission - Hospitalist, Dr. Antonio, consulted for admission - Patient admitted to [facility] Hospitalist service for further evaluation and management. ASSESSMENT AND PLAN: Diagnosis: Chest pain; NSTEMI; pulmonary emboli Plan: discharge Past Med/Surg History Problem List (Updated 07/30/24 @ 20:01 by Falguni Morris MD) Pulmonary emboli (Acute) Non-ST elevation FL (NSTEMI) (Acute) Chest pain (Acute) Chronic anticoagulation (Acute) Acute blood loss anemia (Acute) Bleeding from varicose vein (Acute) Respiratory syncytial virus (RSV) (Acute) Acute on chronic respiratory failure (Acute) Right middle lobe pneumonia Chronic diastolic heart failure COPD (chronic obstructive pulmonary disease) CKD (chronic kidney disease), stage III RSV (acute bronchiolitis due to respiratory syncytial virus) DM (diabetes mellitus), type 2 Acute and chronic respiratory failure Dyspnea (Acute) Supratherapeutic INR Colon arteriovenous malformation Acute on chronic right heart failure Acute GI bleeding (Acute) Anemia (Acute) Symptomatic anemia (Acute) Acute dyspnea (Acute) Atrial fibrillation (Chronic 04/18/13) Diabetes (Chronic) Shoulder pain, left (Chronic 08/26/14) Hypertensive urgency (Chronic) CHF (congestive heart failure) (Chronic) Asthma (Chronic) Acute bronchitis (Acute) Anticoagulated on Coumadin (Acute) Blood in left ear canal (Acute) CHF exacerbation (Acute) Cellulitis (Acute) Chest pain (Acute) Hypertension (Acute) Supratherapeutic INR (Acute) Medical History Hypertension Cardiac pacemaker in situ Tachy-pham syndrome Atrial fibrillation Acute on chronic diastolic CHF (congestive heart failure), NYHA class 3 MACARIO (dyspnea on exertion) Acute dyspnea Acute exacerbation of congestive heart failure Acute decompensated heart failure Family History Other Alzheimer disease Breast cancer Social History Smoking Status: Never smoker Second Hand Exposure: No; Do You Dip or Chew Tobacco: No; Hx Alcohol Use: No Hx Substance Use: No Preferred Language: Welsh Communication Ability: Effective Medical Assistant Prn Required: No Beliefs That Will Affect Care: None marital status: Current Living Situation: Family Current Living Situation Comment: spouse, daughter, son, daughter in law, grandchildren Feels Safe at Home: Yes Assistive Devices: CPAP, Oxygen - at Night and Walker Allergies Allergies Allergy/AdvReac Type Severity Reaction Status Date / Time Penicillins Allergy Intermediate RASH Verified 07/17/24 14:58 glipizide AdvReac dizziness/c Verified 07/17/24 14:58 onfusion Home Meds Home Medications Medication Instructions Recorded Confirmed pantoprazole 40 mg tablet,delayed 40 mg PO QAM ##0 12/25/14 07/30/24 release diltiazem HCl 240 mg 240 mg PO QAM ##0 09/30/17 07/30/24 tablet,extended release 24 hr metoprolol succinate 100 mg 100 mg PO BID ##0 10/15/17 07/30/24 tablet,extended release 24 hr sitagliptin phosphate 50 mg tablet 50 mg PO QAM #0 tabs 02/22/18 07/30/24 (Januvia) levothyroxine 75 mcg tablet 75 mcg PO DAILYBB 90 days #90 tabs 05/25/18 07/30/24 rosuvastatin 20 mg tablet 20 mg PO PM 04/14/19 07/30/24 furosemide 40 mg tablet 40 mg PO AMHS 09/13/23 07/30/24 magnesium oxide 400 mg PO QAM 09/13/23 07/30/24 montelukast 10 mg tablet 10 mg PO QAM 09/13/23 07/30/24 warfarin 5 mg tablet See Rx Instructions .Route .COMPLEX 09/13/23 07/30/24 isosorbide mononitrate 30 mg 15 mg PO QAM 07/17/24 07/30/24 tablet,extended release 24 hr Previous Rx's Medication Instructions Recorded diclofenac sodium 1 % topical gel 4 g EXT Q8H #0 grams 07/23/24 (Voltaren Arthritis Pain) methylprednisolone 4 mg tablet 4 mg PO 0700 #0 tabs 07/23/24 methylprednisolone 4 mg tablet 4 mg PO 0700,1300,2100 #0 tabs 07/23/24 methylprednisolone 4 mg tablet 4 mg PO 0700,2100 #0 tabs 07/23/24 Results & Data (ED) Vital Signs Vital Signs - 24 hr 07/30/24 15:57 07/30/24 15:58 07/30/24 15:58 Temperature Temperature Source Pulse Rate 81 93 H Pulse Rate [Apical] Pulse Rhythm Regular Pulse Rhythm [Apical] Pulse Strength Normal Pulse Strength [Apical] Respiratory Rate 16 Respiratory Effort / Characteristics Non-Labored Spontaneous Respiratory Depth Normal Respiratory Pattern Regular Blood Pressure 99/55 L Blood Pressure [Right Arm] Blood Pressure Mean 69 Blood Pressure Mean [Right Arm] Blood Pressure Position Sitting Blood Pressure Position [Right Arm] Pulse Oximetry 94 94 Oxygen Delivery Method Room Air Room Air Oxygen Flow Rate Sepsis Recent Fever Within 48 Hours No Sepsis New/Unexplained Change in Mental Status No Sepsis Action Taken by Nursing No Action Required Oxygen Flow Rate - Titration 3 Pulse Oximetry Post Tiitration 99 07/30/24 15:58 07/30/24 16:38 07/30/24 16:40 Temperature 36.8 C Temperature Source Oral Pulse Rate Pulse Rate [Apical] 60 Pulse Rhythm Pulse Rhythm [Apical] Regular Pulse Strength Pulse Strength [Apical] Normal Respiratory Rate 18 Respiratory Effort / Characteristics Non-Labored Spontaneous Respiratory Depth Normal Respiratory Pattern Regular Blood Pressure Blood Pressure [Right Arm] 94/50 L Blood Pressure Mean Blood Pressure Mean [Right Arm] 64 Blood Pressure Position Blood Pressure Position [Right Arm] Lying Pulse Oximetry 94 100 Oxygen Delivery Method Room Air Nasal Cannula Oxygen Flow Rate 3 Sepsis Recent Fever Within 48 Hours Sepsis New/Unexplained Change in Mental Status Sepsis Action Taken by Nursing Oxygen Flow Rate - Titration Pulse Oximetry Post Tiitration 07/30/24 18:00 Temperature Temperature Source Pulse Rate Pulse Rate [Apical] 60 Pulse Rhythm Pulse Rhythm [Apical] Regular Pulse Strength Pulse Strength [Apical] Normal Respiratory Rate 18 Respiratory Effort / Characteristics Non-Labored Spontaneous Respiratory Depth Normal Respiratory Pattern Regular Blood Pressure Blood Pressure [Right Arm] 115/64 Blood Pressure Mean Blood Pressure Mean [Right Arm] 81 Blood Pressure Position Blood Pressure Position [Right Arm] Sitting Pulse Oximetry 100 Oxygen Delivery Method Nasal Cannula Oxygen Flow Rate 3 Sepsis Recent Fever Within 48 Hours Sepsis New/Unexplained Change in Mental Status Sepsis Action Taken by Nursing Oxygen Flow Rate - Titration Pulse Oximetry Post Tiitration Laboratory Data 07/30/24 16:02 07/30/24 16:02 Lab Results 07/30/24 07/30/24 Range/Units 16:02 17:45 WBC 8.70 (4.8-10.8) K/ul RBC 3.59 L (4.20-5.40) M/uL Hgb 10.2 L (12.0-16.0) g/dl Hct 31.8 L (37.0-47.0) % MCV 88.6 (80.0-100.0) fL MCH 28.4 (25.0-34.0) pg MCHC 32.1 (32.0-36.0) g/dL RDW Std Deviation 48.4 H (36.4-46.3) fL RDW Coeff of Popeye 15.0 H (11.5-14.5) % Plt Count 294 (130-400) K/uL MPV 10.3 (9.4-12.4) fL Immature Gran % (Auto) 0.5 % Neut % (Auto) 65.5 % Lymph % (Auto) 17.2 % [place] % (Auto) 14.3 % Eos % (Auto) 2.2 % Baso % (Auto) 0.3 % Neut # (Auto) 5.70 (1.40-6.50) K/uL Lymph # (Auto) 1.50 (1.20-3.40) K/uL [place] # (Auto) 1.24 H (0.11-0.59) K/uL Eos # (Auto) 0.19 (0.00-0.50) K/uL Baso # (Auto) 0.03 (0.00-0.20) K/uL Immature Gran # (Auto) 0.04 (0.01-0.20) K/uL PT 11.1 (9.0-12.0) Seconds INR 1.0 (0.9-1.1) D-Dimer 7390 H* (0-500) ug/L FEU Sodium 138 (136-145) mmol/L Potassium 4.0 (3.5-5.1) mmol/L Chloride 99 (98-107) mmol/L Carbon Dioxide 32 (21-32) mmol/L Anion Gap 7 (3-11) BUN 34 H (6-23) mg/dl Creatinine 1.74 H (0.6-1.2) mg/dl Est Cr Clr Drug Dosing 22.1 ml/min eGFR 27.70 BUN/Creatinine Ratio 19.5 (10-20) Glucose 170 H (70-99(Fasting)) mg/dl Calcium 9.0 (8.6-10.3) mg/dl Magnesium 2.1 (1.7-2.4) mg/dl Total Bilirubin 0.8 (0.2-1.0) mg/dl AST 18 (13-39) U/L ALT 16 (7-52) U/L Alkaline Phosphatase 87 (34-104) U/L Troponin I High Sens 22.9 H 19.6 H (0-14) pg/ml Total Protein 6.4 (6.0-8.3) gm/dl Albumin 3.9 (3.4-5.0) gm/dl Globulin 2.5 (2.5-4.0) gm/dl Albumin/Globulin Ratio 1.6 (0.9-2) Lipase 90 H (11-82) U/L Administered Medications Discontinued Medications Sodium Chloride (Nss) 250 mls @ 999 mls/hr IV .Q16M ONE Stop: 07/30/24 17:52 Last Infusion: 07/30/24 18:03 Dose: Infused Documented By: Admin: 07/30/24 17:46 Dose: 999 mls/hr Documented By: BRENDEN Ioversol (Optiray 320 125ml) 119 ml IV ONCE ONE Stop: 07/30/24 19:17 Last Admin: 07/30/24 19:16 Dose: 119 ml Documented By: JAY Imaging Data Radiologist's Impression: Chest X-Ray 07/30/24 15:52 XR chest 1V portable CLINICAL HISTORY: Chest pain, nonspecific COMPARISON STUDY: Chest CT September 13, 2023. Chest radiograph September 16, 2023. FINDINGS: Left subclavian pacer is in place. Cardiomegaly is unchanged. There is pulmonary vascular congestion. No consolidation is identified. Right middle lobe opacity shown on prior CT has improved. There is no pneumothorax or pleural effusion. IMPRESSION: 1. Cardiomegaly with pulmonary vascular congestion. 2. No consolidation to suggest pneumonia. ACT 112: Negative or not required by law. Electronically signed by: Orlando Posada M.D. 07/30/2024 4:35 PM Chest CTA 07/30/24 17:37 CR Exam(s): CTA CHEST IV Amt: 119ml optiray 320 EXAM: CT Angiography Chest With Intravenous Contrast CLINICAL HISTORY: Reason for exam: PE. TECHNIQUE: Axial computed tomographic angiography images of the chest with intravenous contrast. CTDI is 45.5 mGy and DLP is 664.13 mGy-cm. Automated exposure control was utilized for the study. A dose lowering technique was utilized adhering to the principles of ALARA. MIP reconstructed images were created and reviewed. 119 mL Optiray 320 given IV, with excellent contrast enhancement of the pulmonary arteries. COMPARISON: None. FINDINGS: Pulmonary arteries: Mild, peripheral, occlusive, subsegmental pulmonary embolism right lower lobe and questionably in the right middle lobe. No other PE. Mild vascular prominence, and contrast reflux into the IVC, the again noted, nonspecific, cannot rule out CHF. Aorta: No aneurysm. Lungs: Clear. No consolidation. Pleural space: No significant effusion. No pneumothorax. Heart: Pacemaker. Severe cardiomegaly. No significant pericardial effusion. RV/LV ratio = 1.3, stable, indicating elevated right heart pressures. Bones/joints: No acute fracture. Soft tissues: Unremarkable. Lymph nodes: No enlarged lymph nodes. IMPRESSION: 1. Mild burden, subsegmental right sided pulmonary embolism. 2. Severe cardiomegaly, right heart strain and possible CHF, stable. 3. No consolidation or pleural effusion. Communications: Call Doctor Pulmonary Embolism Electronically signed by: Graciela Grider M.D. 07/30/24 19:52 PM Discharge Plan Visit Data Chief Complaint: Chest Pain Stated Complaint: Chest Pain, Intermittent SOB ED Provider: Falguni Morris Discharge Problem: Chest pain, Non-ST elevation FL (NSTEMI), Pulmonary emboli Forms Stand Alone Forms: [facility] [employer] Prescriptions Prescriptions: No Action pantoprazole 40 mg Tablet,Delayed Release (Dr/Ec) 40 mg PO QAM Qty: 0 diltiazem HCl 240 mg Tablet Extended Release 24 Hr 240 mg PO QAM Qty: 0 metoprolol succinate 100 mg Tablet Extended Release 24 Hr 100 mg PO BID Qty: 0 Januvia 50 mg Tablet 50 mg PO QAM Qty: 0 levothyroxine 75 mcg Tablet 75 mcg PO DAILYBB 90 Days Qty: 90 rosuvastatin 20 mg tablet 20 mg PO PM montelukast 10 mg tablet 10 mg PO QAM furosemide 40 mg tablet 40 mg PO AMHS warfarin 5 mg Tablet See Rx Instructions .ROUTE .COMPLEX Hold Instructions: Until told to resume by PCP Rx Instructions: Take 2.5mg on Tuesday mornings and 5mg all other mornings. WAS TOLD TO HOLD ON 07/23 UNTIL INSTRUCTED BY PCP magnesium oxide 400 mg magnesium Tablet 400 mg PO QAM isosorbide mononitrate 30 mg tablet extended release 24 hr 15 mg PO QAM methylprednisolone 4 mg Tablet 4 mg PO 0700 Qty: 0 0RF methylprednisolone 4 mg Tablet 4 mg PO 0700,2100 Qty: 0 0RF methylprednisolone 4 mg Tablet 4 mg PO 0700,1300,2100 Qty: 0 0RF diclofenac sodium [Voltaren Arthritis Pain] 1 % Gel 4 g EXT Q8H Qty: 0 0RF Referrals Referrals: Cahd Phoenix DO [Primary Care Provider] -
[2024-07-30 16:35] LABS: Albumin Globulin Ratio 1.6 (0.9-2); Albumin Level 3.9 gm/dl (3.4-5.0); BUN Creatinine Ratio 19.5 (10-20); Bilirubin,Total 0.8 mg/dl (0.2-1.0); Creatinine Clr Calc Pharmacy 22.1 ml/min; Globulin 2.5 gm/dl (2.5-4.0); Magnesium 2.1 mg/dl (1.7-2.4); Total Protein 6.4 gm/dl (6.0-8.3)
--- NOTE | 2024-07-30 16:37 | XRay Report ---
XR chest 1V portable CLINICAL HISTORY: Chest pain, nonspecific COMPARISON STUDY: Chest CT September 13, 2023. Chest radiograph September 16, 2023. FINDINGS: Left subclavian pacer is in place. Cardiomegaly is unchanged. There is pulmonary vascular c ongestion. No consolidation is identified. Right middle lobe opacity shown on prior CT has improved. There is no pneumothorax or pleural effusion. IMPRESSION: 1. Cardiomegaly with pulmonary vascular congestion. 2. No consolidation to suggest pneumonia. ACT 112: Negative or not required by law. Electronically signed by: Orlando Posada M.D. 07/30/2024 4:35 PM
[2024-07-30 16:41] LABS: Troponin I High Sensitivity 22.9 pg/ml (0-14)
[2024-07-30 16:56] LABS: Prothrombin Time 11.1 Seconds (9.0-12.0)
[2024-07-30 17:21] LABS: D Dimer 7390 ug/L FEU (0-500)
[2024-07-30] MEDS: SODIUM CHLORIDE 0.9% 250 ML IV ONE (17:46)
[2024-07-30] MEDS: OPTIRAY 320 125ml IV ONE (19:16)
--- NOTE | 2024-07-30 19:53 | CT Scan Report ---
Exam(s): CTA CHEST IV Amt: 119ml optiray 320 EXAM: CT Angiography Chest With Intravenous Contrast CLINICAL HISTORY: Reason for exam: PE. TECHNIQUE: Axial computed tomographic angiography images of the chest with intravenous contrast. CTDI is 45.5 mGy and DLP is 664.13 mGy-cm. Automated exposure control was utilized for the study. A dose lowering technique was utilized adhering to the principles of ALARA. MIP reconstructed images were created and reviewed. 119 mL Optiray 320 given IV, with excellent contrast enhancement of the pulmonary arteries. COMPARISON: None. FINDINGS: Pulmonary arteries: Mild, peripheral, occlusive, subsegmental pulmonary embolism right lower lobe and questionably in the right middle lobe. No other PE. Mild vascular prominence, and contrast reflux into the IVC, the again noted, nonspecific, cannot rule out CHF. Aorta: No aneurysm. Lungs: Clear. No consolidation. Pleural space: No significant effusion. No pneumothorax. Heart: Pacemaker. Severe cardiomegaly. No significant pericardial effusion. RV/LV ratio = 1.3, stable, indicating elevated right heart pressures. Bones/joints: No acute fracture. Soft tissues: Unremarkable. Lymph nodes: No enlarged lymph nodes. IMPRESSION: 1. Mild burden, subsegmental right sided pulmonary embolism. 2. Severe cardiomegaly, right heart strain and possible CHF, stable. 3. No consolidation or pleural effusion. Communications: Call Doctor Pulmonary Embolism Electronically signed by: Graciela Grider M.D. 07/30/24 19:52 PM
--- NOTE | 2024-07-30 19:58 | History & Physical Report ---
Date of Service July 30, 2024 Assessment & Plan (1) SOB (shortness of breath): Plan: Underlying pulm hypertension multifactorial Acute PE PE with strain rule out LE clot as source Pulmonary congestion, history diastolic dysfunction, equivocal volume status valvular heart disease (moderate MR, mild TR) SSS status post PPM, currently off Coumadin due to recent admission for bleeding LE varicosities causing significant anemia hx CAD/PVD PSVT hypertension, BP on the lower side ARF on CKD secondary to illness hyperlipidemia on statin Rx hypothyroidism, euthyroid as of today's TSH DM2 on oral meds, well-controlled as of recent hemoglobin A1c of 6.13 April 2024 chronic anemia, hemoglobin better than baseline hemoglobin of 8 following recent confinement Delirium risk PCU IV heparin for now, hold off on bolus given bleeding episode from last confinem ent resulting in significant anemia, monitor for recurrence of bleeding varicosity (Patient and daughter accept potential risks of bleeding with necessary anticoagulation given burden of clot.) LE venous Dopplers rule out DVT TTE, Cardiology consult Re: CHF and low BP Decrease maintenance beta-antoni dose given hypotension Hold Cardizem until BP improved Baseline UA, monitor creatinine response to IV albumin Basal bolus insulin, ISS BG goal 1 10-1 40, carb count coverage Delirium precautions, patient daughter request to hold off on pharmacologic agents unless necessary given history sedation post antipsychotic administration DVT prophylaxis. IV heparin for now DNR Patient daughter requesting updates from providers. Ms. Grace Marquez, contact #[phone]. Total critical care time was 45 minutes. Text document was generated using [employer] voice recognition software. It may contain grammatical or spelling errors. Kindly contact undersigned for clarification of any documentation item in question. History of Present Illness Chief Complaint: Shortness of breath, low O2 Primary Care Provider: Chad Phoenix DO History obtained from patient, family, and records. Medical history significant for chronic diastolic heart failure (EF of 55-60%, TTE 2021 ), valvular heart disease (moderate MR, mild TR),SSS status post PPM currently off Coumadin, CAD as per records, PVD, PSVT, hypertension, hyperlipidemia, DAIN on CPAP, pulmonary hypertension, hypothyroidism, DM2 on oral meds, CRI (baseline creatinine 1.3-1.4), chronic anemia (baseline hemoglobin of 8), varicose veins. Recent confinement July 19 to 2023 for anemia secondary to bleeding varicose vein. Bleeding controlled with local measures. Outpatient vascular surgery consultation contemplated. Hospital course complicated by delirium and worsening confusion post Zyprexa administration. Patient Coumadin held on discharge to rehab facility. Patient to discuss risks/benefits of resumption with PCP on follow-up as per discharge note. Hemoglobin 8 at time of discharge. Confusion during [facility] rehab confinement. Patient given Seroquel and was sleeping for days as per daughter. Patient not feeling well since returning home last week. Blood pressure noted to be low. SBP at PCP's office 4 days ago was 90s. Patient encouraged to increase fluids. Outpatient cardiology provider recommended giving one half of low-dose Imdur followed by small reduction in diltiazem if with persistent hypotension. Patient noted to be more short of breath today. No cough symptoms. Achy left-sided chest pain without radiation. Usual leg swelling as per patient. O2 sats noted to be 70s at home. Patient given aspirin and nitroglycerin at home. SBP noted to be 80s. NSS bolus administered. Patient brought to ER for evaluation. MEDICAL HISTORY: As above. SURGERIES: PPM, back surgery, knee surgery, appendectomy, mastoid surgery, tonsillectomy, inguinal hernia repair, right oophorectomy FAMILY HISTORY: Breast cancer, dementia PERSONAL SOCIAL HISTORY: Nonsmoker, no chronic intake of alcohol. 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 Lives with . Allergies Allergy/AdvReac Type Severity Reaction Status Date / Time Penicillins Allergy Intermediate RASH Verified 07/17/24 14:58 quetiapine [From Seroquel] AdvReac Intermediate sedation Verified 07/30/24 21:07 olanzapine [From Zyprexa] AdvReac Mild Confusion Verified 07/31/24 04:19 glipizide AdvReac dizziness/c Verified 07/17/24 14:58 onfusion Home Medications Medication Instructions Recorded Confirmed Type pantoprazole 40 mg tablet,delayed 40 mg PO QAM ##0 12/25/14 07/30/24 History release diltiazem HCl 240 mg 240 mg PO QAM ##0 09/30/17 07/30/24 History tablet,extended release 24 hr metoprolol succinate 100 mg 100 mg PO BID ##0 10/15/17 07/30/24 History tablet,extended release 24 hr sitagliptin phosphate 50 mg tablet 50 mg PO QAM #0 tabs 02/22/18 07/30/24 History (Januvia) levothyroxine 75 mcg tablet 75 mcg PO DAILYBB 90 days #90 tabs 05/25/18 07/30/24 History rosuvastatin 20 mg tablet 20 mg PO PM 04/14/19 07/30/24 History furosemide 40 mg tablet 40 mg PO AMHS 09/13/23 07/30/24 History magnesium oxide 400 mg PO QAM 09/13/23 07/30/24 History montelukast 10 mg tablet 10 mg PO QAM 09/13/23 07/30/24 History warfarin 5 mg tablet See Rx Instructions .Route .COMPLEX 09/13/23 07/30/24 History isosorbide mononitrate 30 mg 15 mg PO QAM 07/17/24 07/30/24 History tablet,extended release 24 hr diclofenac sodium 1 % topical gel 4 g EXT Q8H #0 grams 07/23/24 07/30/24 Rx (Voltaren Arthritis Pain) methylprednisolone 4 mg tablet 4 mg PO 0700 #0 tabs 07/23/24 07/30/24 Rx methylprednisolone 4 mg tablet 4 mg PO 0700,1300,2100 #0 tabs 07/23/24 07/30/24 Rx methylprednisolone 4 mg tablet 4 mg PO 0700,2100 #0 tabs 07/23/24 07/30/24 Rx Past Med/Surg History Problem List (Updated 07/31/24 @ 04:11 by Connor Antonio MD) Acute hypoxemic respiratory failure Pulmonary emboli (Acute) Non-ST elevation CA (NSTEMI) (Acute) Chest pain (Acute) Chronic anticoagulation (Acute) Acute blood loss anemia (Acute) Bleeding from varicose vein (Acute) Respiratory syncytial virus (RSV) (Acute) Acute on chronic respiratory failure (Acute) Right middle lobe pneumonia Chronic diastolic heart failure COPD (chronic obstructive pulmonary disease) CKD (chronic kidney disease), stage III RSV (acute bronchiolitis due to respiratory syncytial virus) DM (diabetes mellitus), type 2 Acute and chronic respiratory failure Dyspnea (Acute) Supratherapeutic INR Colon arteriovenous malformation Acute on chronic right heart failure Acute GI bleeding (Acute) Anemia (Acute) Symptomatic anemia (Acute) Acute dyspnea (Acute) Atrial fibrillation (Chronic 04/18/13) Diabetes (Chronic) Shoulder pain, left (Chronic 08/26/14) Hypertensive urgency (Chronic) CHF (congestive heart failure) (Chronic) Asthma (Chronic) Acute bronchitis (Acute) Anticoagulated on Coumadin (Acute) Blood in left ear canal (Acute) CHF exacerbation (Acute) Cellulitis (Acute) Chest pain (Acute) Hypertension (Acute) Supratherapeutic INR (Acute) Medical History Hypertension Cardiac pacemaker in situ Tachy-pham syndrome Atrial fibrillation Acute on chronic diastolic CHF (congestive heart failure), NYHA class 3 MACARIO (dyspnea on exertion) Acute dyspnea Acute exacerbation of congestive heart failure Acute decompensated heart failure Family History Other Alzheimer disease Breast cancer Social History Smoking Status: Never smoker Second Hand Exposure: No; Do You Dip or Chew Tobacco: No; Tobacco Cessation Education Requested by Patient: No Hx Alcohol Use: No Hx Substance Use: No Preferred Language: Brazilian Communication Ability: Effective Sponge Press Operator Required: No Beliefs That Will Affect Care: None marital status: Current Living Situation: Family Current Living Situation Comment: spouse, daughter, son, daughter in law, grandchildren Other Information That Helps Us Care for You: No Feels Safe at Home: Yes Safety Concerns: Feels Safe At This Time Assistive Devices: CPAP, Denture - Upper, Denture - Lower, Hearing Aid - Left, Oxygen - at Night and Walker Review of Systems Review of Systems: As per HPI, all other systems reviewed and negative Physical Exam Physical Exam: GENERAL: Ill-appearing, slightly hard of hearing, no respiratory distress SKIN: Pallor, warm HEENT: Pale palpebral conjunctivae, patch over left eye, dry buccal mucosa, nasal cannula in place NECK : Supple, no tenderness CHEST : Decreased breath sounds , no tenderness HEART : RRR, systolic murmur ABDOMEN: Some distention, nontender EXTREMITIES : Minimal bilateral LE swelling with venous varicosities, no other conspicuous deformities noted NEUROLOGIC : Oriented today, no facial asymmetry, slightly hard of hearing, gait and stance not assessed Results & Data Results & Data Vital Signs (Past 12 Hours) Vital Signs Temp Pulse Pulse Resp BP BP Pulse Ox 07/30/24 18:00 60 18 115/64 100 07/30/24 16:40 60 18 94/50 L 100 07/30/24 16:38 36.8 C 07/30/24 15:58 94 07/30/24 15:58 94 07/30/24 15:58 93 H 16 99/55 L 94 07/30/24 15:57 81 O2 Del Method O2 Flow Rate 07/30/24 18:00 Nasal Cannula 3 07/30/24 16:40 Nasal Cannula 3 07/30/24 16:38 07/30/24 15:58 Room Air 07/30/24 15:58 Room Air 07/30/24 15:58 Room Air 07/30/24 15:57 Laboratory Results Laboratory Results WBC 8.70 K/ul (4.8-10.8) 07/30/24 16:02 RBC 3.59 M/uL (4.20-5.40) L 07/30/24 16:02 Hgb 10.2 g/dl (12.0-16.0) L 07/30/24 16:02 Hct 31.8 % (37.0-47.0) L 07/30/24 16:02 MCV 88.6 fL (80.0-100.0) 07/30/24 16:02 MCH 28.4 pg (25.0-34.0) 07/30/24 16:02 MCHC 32.1 g/dL (32.0-36.0) 07/30/24 16:02 RDW Std Deviation 48.4 fL (36.4-46.3) H 07/30/24 16:02 RDW Coeff of Popeye 15.0 % (11.5-14.5) H 07/30/24 16:02 Plt Count 294 K/uL (130-400) 07/30/24 16:02 MPV 10.3 fL (9.4-12.4) 07/30/24 16:02 Immature Gran % (Auto) 0.5 % 07/30/24 16:02 Neut % (Auto) 65.5 % 07/30/24 16:02 Lymph % (Auto) 17.2 % 07/30/24 16:02 Cannon % (Auto) 14.3 % 07/30/24 16:02 Eos % (Auto) 2.2 % 07/30/24 16:02 Baso % (Auto) 0.3 % 07/30/24 16:02 Neut # (Auto) 5.70 K/uL (1.40-6.50) 07/30/24 16:02 Lymph # (Auto) 1.50 K/uL (1.20-3.40) 07/30/24 16:02 Cannon # (Auto) 1.24 K/uL (0.11-0.59) H 07/30/24 16:02 Eos # (Auto) 0.19 K/uL (0.00-0.50) 07/30/24 16:02 Baso # (Auto) 0.03 K/uL (0.00-0.20) 07/30/24 16:02 Immature Gran # (Auto) 0.04 K/uL (0.01-0.20) 07/30/24 16:02 PT 11.1 Seconds (9.0-12.0) 07/30/24 16:02 INR 1.0 (0.9-1.1) 07/30/24 16:02 D-Dimer 7390 ug/L FEU (0-500) H* 07/30/24 16:02 Sodium 138 mmol/L (136-145) 07/30/24 16:02 Potassium 4.0 mmol/L (3.5-5.1) 07/30/24 16:02 Chloride 99 mmol/L (98-107) 07/30/24 16:02 Carbon Dioxide 32 mmol/L (21-32) 07/30/24 16:02 Anion Gap 7 (3-11) 07/30/24 16:02 BUN 34 mg/dl (6-23) H 07/30/24 16:02 Creatinine 1.74 mg/dl (0.6-1.2) H 07/30/24 16:02 Est Cr Clr Drug Dosing 22.1 ml/min 07/30/24 16:02 eGFR 27.70 07/30/24 16:02 BUN/Creatinine Ratio 19.5 (10-20) 07/30/24 16:02 Glucose 170 mg/dl (70-99(Fasting)) H 07/30/24 16:02 Calcium 9.0 mg/dl (8.6-10.3) 07/30/24 16:02 Magnesium 2.1 mg/dl (1.7-2.4) 07/30/24 16:02 Total Bilirubin 0.8 mg/dl (0.2-1.0) 07/30/24 16:02 AST 18 U/L (13-39) 07/30/24 16:02 ALT 16 U/L (7-52) 07/30/24 16:02 Alkaline Phosphatase 87 U/L (34-104) 07/30/24 16:02 Troponin I High Sens 19.6 pg/ml (0-14) H 07/30/24 17:45 Total Protein 6.4 gm/dl (6.0-8.3) 07/30/24 16:02 Albumin 3.9 gm/dl (3.4-5.0) 07/30/24 16:02 Globulin 2.5 gm/dl (2.5-4.0) 07/30/24 16:02 Albumin/Globulin Ratio 1.6 (0.9-2) 07/30/24 16:02 Lipase 90 U/L (11-82) H 07/30/24 16:02 Impressions Chest X-Ray 07/30/24 15:52 XR chest 1V portable CLINICAL HISTORY: Chest pain, nonspecific COMPARISON STUDY: Chest CT September 13, 2023. Chest radiograph September 16, 2023. FINDINGS: Left subclavian pacer is in place. Cardiomegaly is unchanged. There is pulmonary vascular congestion. No consolidation is identified. Right middle lobe opacity shown on prior CT has improved. There is no pneumothorax or pleural effusion. IMPRESSION: 1. Cardiomegaly with pulmonary vascular congestion. 2. No consolidation to suggest pneumonia. ACT 112: Negative or not required by law. Electronically signed by: Orlando Posada M.D. 07/30/2024 4:35 PM Chest CTA 07/30/24 17:37 CR Exam(s): CTA CHEST IV Amt: 119ml optiray 320 EXAM: CT Angiography Chest With Intravenous Contrast CLINICAL HISTORY: Reason for exam: PE. TECHNIQUE: Axial computed tomographic angiography images of the chest with intravenous contrast. CTDI is 45.5 mGy and DLP is 664.13 mGy-cm. Automated exposure control was utilized for the study. A dose lowering technique was utilized adhering to the principles of ALARA. MIP reconstructed images were created and reviewed. 119 mL Optiray 320 given IV, with excellent contrast enhancement of the pulmonary arteries. COMPARISON: None. FINDINGS: Pulmonary arteries: Mild, peripheral, occlusive, subsegmental pulmonary embolism right lower lobe and questionably in the right middle lobe. No other PE. Mild vascular prominence, and contrast reflux into the IVC, the again noted, nonspecific, cannot rule out CHF. Aorta: No aneurysm. Lungs: Clear. No consolidation. Pleural space: No significant effusion. No pneumothorax. Heart: Pacemaker. Severe cardiomegaly. No significant pericardial effusion. RV/LV ratio = 1.3, stable, indicating elevated right heart pressures. Bones/joints: No acute fracture. Soft tissues: Unremarkable. Lymph nodes: No enlarged lymph nodes. IMPRESSION: 1. Mild burden, subsegmental right sided pulmonary embolism. 2. Severe cardiomegaly, right heart strain and possible CHF, stable. 3. No consolidation or pleural effusion. Communications: Call Doctor Pulmonary Embolism Electronically signed by: Graciela Grider M.D. 07/30/24 19:52 PM Diagnostic Findings EKG as per my interpretation : Rate 80, paced rhythm
[2024-07-30] MEDS ORDERED: DICLOFENAC SOD 1% GEL 100 GM TUBE EXT PRN (20:43)
[2024-07-30] MEDS: ALBUMIN 25% 25 GM/100 ML VIAL IV ONE (20:58)
[2024-07-30] MEDS: ALBUT/IPRATROP 3MG/0.5MG NEB 3 ML VIAL NEB STA (20:59)
[2024-07-30] MEDS ORDERED: PROMETHAZINE 6.25 MG/50.25 ML BAG IV PRN (21:11)
[2024-07-30] MEDS: HEPARIN SODIUM/DEXTROSE 25,000 UNITS/500 ML BAG IV SCH (21:19)
[2024-07-30 21:21] LABS: Thyroid Stimulating Hormone 2.167 uIu/ml (0.300-4.500)
[2024-07-30] MEDS: Heparin IV Adult Wt-Based Low-Dose *NO* INITIAL Bolus Protocol IV SCH (21:29)
[2024-07-30] MEDS: METOPROLOL SUCC 50MG EXT REL TAB PO SCH (22:03)
[2024-07-30] MEDS: ROSUVASTATIN CALCIUM 20 MG TAB PO SCH (22:03)
[2024-07-30] MEDS ORDERED: CARBOHYDRATES FOR HYPOGLYCEMIA PO PRN (22:41)
[2024-07-30] MEDS ORDERED: GLUCOSE 40% GEL 15 GM TUBE PO PRN (22:41)
[2024-07-30] MEDS ORDERED: DEXTROSE 50% 50 ML SYRINGE IV PRN (22:41)
[2024-07-30] MEDS ORDERED: GLUCOSE 10 TAB/TUBE PO PRN (22:41)
[2024-07-30] MEDS ORDERED: GLUCAGON FOR INJ 1 MG VIAL SQ PRN (22:41)
[2024-07-30] MEDS: INSULIN ASPART PER UNIT CHARGE SC SCH (23:25)
--- OUTSIDE RECORDS SUMMARY | 2024-07-31 00:18 | External Medical Summary | Summary of Care ---
Author Name Unknown Organization [facility] Address [address] [facility] [place] [address] Phone [phone] Care Team Providers Care Natural Gas Plant Supervisor Name Role Phone LizettChad Jorge Luis GAMEZ Primary Care Provider [phone] Reason for Visit * Reason Comments Dosage Adjustment Via Phone (anticoag Cl inic) Encounter Details Date Type Department Care Team (Latest Contact Info) Description 07/25/2024 6:10 PM EDT Anticoagulation Pharmacy, [facility] [address] [facility] [place] [address] Pharmacist1, [facility] [address] [facility] [place] [address] Paroxysmal atrial fibrillation (HCC)* Allergies Active Allergy Reactions Criticality Noted Date Comments Glipizide 02/18/2021 Dizzy, confusion Latex Rash 04/05/2024 Penicillins Rash 10/13/2001 documented as of this encounter (statuses as of 07/25/2024) Medications Medication Sig Dispensed Refills Start Date [...] by GOLD 2017 classification ([facility]) Inhale 1 Vial via nebulizer every [...] by mouth daily as directed by [facility] coumadin clinic 90 Tablet 1 [...] as of this encounter (statuses as of 07/25/2024) Active Problems Problem Noted Date Diagnosed Date [...] as of this encounter (statuses as of 07/25/2024) Resolved Problems Problem Noted Date Diagnosed Date Resolved Date Coronary artery disease invo lving [place] heart without angina pectoris 04/18/2019 10/29/2019 COPD, [...] 08/29/2018 Overview: Per CKD protocol #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 [facility] message sent --No Clinic will follow up again in 1 week(s). [Attempt # N/A] Thank you, Radha Lizarraga Dressing Machine Operator I [facility] 07/25/2024, 8:39 AM documented in this encounter Plan of Treatment Upcoming Encounters Date Type Department Care Team (Late st Contact Info) Description 08/01/2024 6:10 PM EDT Anticoagulation Pharmacy, [facility] [address] [place] [address] Pharmacist1, [facility] [address] [facility] [place] [address] 09/18/2024 8:40 AM EST Office Visit Podiatry [facility] [address] [place] [address] [place] [address] Bryanna Guzman DPM [address] [place] [address] 10/15/2024 3:00 PM EST Office Visit Cardiology, [facility] [address] [place] [address] Yeni Laureano CRNP [address] [place] [address] 01/02/2025 3:00 PM EDT Office Visit Family Practice [facility] [address] [place] [address] Chad Phoenix, DO [address] [facility] [place] [address] 04/30/2025 3:00 PM EDT Office Visit Pulmonary Medicine, [facility] [address] [place] [address] Krunal Sherwood MD [address] [place] [address] Health Maintenance Due Date Last Done Comments [...] as of this encounter Visit Diagnoses Diagnosis Paroxysmal atrial [...] Care Agent (per Health Care Power of Cigar Tobacco Rehandler document) DAVID Pearl Adult Child Second Alternate Health Care Agent (per Health Care Power of Cigar Tobacco Rehandler document) Care Teams Natural Gas Plant Supervisor Relationship Specialty Start Date End Date Chad Phoenix DO [facility] [place] [address] PCP - General Family Medicine 06/02/18 documented as of this encounter
--- OUTSIDE RECORDS SUMMARY | 2024-07-31 00:19 | External Medical Summary ---
Author Name Unknown Address Unknown Organization [id number]:[facility] [place] [address] Laboratory Report Ordering Provider Test Date Status ROBERTO MCCORMICK 07/24/2024 06:55:56 Final Observation Date Value Abnormality Reference (Units ) Status BUN 07/24/2024 06:55:56 46 Above high normal 6-20 (mg/dL) Final Creatinine 07/24/2024 06:55:56 1.7 Above high normal 0.5-1.0 (mg/dL) Final Glomerular filtration rate/1.73 sq M.predicted [Volume Rate/Area] in Serum, Plasma or Blood by Creatinine-based formula (CKD-EPI) 07/24/2024 06:55:56 30 Below low normal >=60 (mL/min) Final eGFR is calculated based on the CKD-EPI 2020 equation. Sodium 07/24/2024 06:55:56 141 135-146 (m mol/L) Final Potassium 07/24/2024 06:55:56 4.3 3.5-5.1 (m mol/L) Final Cl 07/24/2024 06:55:56 99 98-107 (mm ol/L) Final CO2 07/24/2024 06:55:56 28 22-32 (mmo l/L) Final Anion gap 07/24/2024 06:55:56 14 7-15 (mmol /L) Final Glucose 07/24/2024 06:55:56 171 Above high normal 70 -120 (mg/dL) Final Calcium 07/24/2024 06:55:56 9.7 8.4-10.2 ( mg/dL) Final Performing Location [facility] [place] [address]
--- OUTSIDE RECORDS SUMMARY | 2024-07-31 00:19 | External Medical Summary ---
Author Name Unknown Address Unknown Organization [id number][place] [place] [address] [place] [address] Laboratory Report Ordering Provider Test Date Status ALEX GOODWIN 07/24/2024 06:55:00 Final Observation Date Value Abnormality Reference (Units ) Status Ferritin 07/24/2024 06:55:00 50 13-150 (ng /mL) Final Postmenopausal women have hi gher ferritin levels than pre-menopausal women. The above reference interval is based on pre-menopausal women. Performing Location [facility] - [address] [place] [address]
--- OUTSIDE RECORDS SUMMARY | 2024-07-31 00:19 | External Medical Summary ---
Author Name Unknown Address Unknown Organization [id number]:[facility] [place] - [address] [place] [address] Laboratory Report Ordering Provider Test Date Status FREDDIE SHER 07/24/2024 06:55:00 Final Observation Date Value Abnormality Reference (Units ) Status TSH 07/24/2024 06:55:00 1.89 0.27-4.20 (uIU/mL) Final Performing Location [facility] - [address] [place] [address]
--- OUTSIDE RECORDS SUMMARY | 2024-07-31 00:19 | External Medical Summary ---
Author Name Unknown Address Unknown Organization [id number]:[facility] [place] [place] [address] Laboratory Report Ordering Provider Test Date Status ROBERTO MCCORMICK 07/24/2024 06:55:56 Final Observation Date Value Abnormality Reference (Units ) Status WBC, Total 07/24/2024 06:55:56 8.22 4.00-10.8 0 (K/uL) Final RBC 07/24/2024 06:55:56 3.51 3.85-5.15 (M/uL) Final Hemoglobin 07/24/2024 06:55:56 10.3 Below low normal 12 .0-15.3 (g/dL) Final HCT 07/24/2024 06:55:56 32.4 Below low normal 36. 0-45.2 (%) Final MCV 07/24/2024 06:55:56 92.3 81.5-97.5 (fL) Final MCH 07/24/2024 06:55:56 29.3 27.0-34.0 (pg) Final MCHC 07/24/2024 06:55:56 31.8 32.0-36.0 (g/dL) Final RDW 07/24/2024 06:55:56 16.0 11.5-15.5 (%) Final Platelets 07/24/2024 06:55:56 345 140-400 (K /uL) Final MPV 07/24/2024 06:55:56 10.2 6.6-11.1 ( fL) Final Performing Location [facility] [place] [place] [address]
--- OUTSIDE RECORDS SUMMARY | 2024-07-31 00:19 | External Medical Summary ---
Author Name Unknown Address Unknown Organization [id number][place] [place] [address] [place] [address] Laboratory Report Ordering Provider Test Date Status ALEX GOODWIN 07/24/2024 06:55:00 Final Observation Date Value Abnormality Reference (Units ) Status Iron 07/24/2024 06:55:00 23 Below low normal 33-151 (ug/dL) Final Iron-binding capacity 07/24/2024 06:55:00 488 Above high normal 250-425 (ug/dL) Final Transferrin Sat % 07/24/2024 06:55:00 5 Below low normal 15-55 (%) Final Performing Location [facility] [place] [address] [place] [address]
[2024-07-31 00:41] LABS: Hematocrit (blood only) 27.2 % (37.0-47.0); Hemoglobin 8.5 g/dl (12.0-16.0)
[2024-07-31 03:09] LABS: Basophils # (auto) 0.02 K/uL (0.00-0.20); Basophils % (auto) 0.3 %; Eosinophils # (auto) 0.24 K/uL (0.00-0.50); Eosinophils % (auto) 3.4 %; Hematocrit (blood only) 27.1 % (37.0-47.0); Hemoglobin 8.4 g/dl (12.0-16.0); Immature Granulocytes # (auto) 0.03 K/uL (0.01-0.20); Immature Granulocytes % (auto) 0.4 %; Lymphocytes # (auto) 0.97 K/uL (1.20-3.40); Lymphocytes % (auto) 13.7 %; Mean Corpuscular Hemoglobin 27.6 pg (25.0-34.0); Mean Corpuscular Volume 89.1 fL (80.0-100.0); Monocytes # (auto) 1.09 K/uL (0.11-0.59); Monocytes % (auto) 15.4 %; Neutrophils # (auto) 4.72 K/uL (1.40-6.50); Neutrophils % (auto) 66.8 %; Platelet Count 223 K/uL (130-400); RDW Coefficient of Variation 15.1 % (11.5-14.5); RDW Standard Deviation 48.9 fL (36.4-46.3); Red Blood Count 3.04 M/uL (4.20-5.40); White Blood Count 7.07 K/ul (4.8-10.8)
[2024-07-31 03:24] LABS: BUN Creatinine Ratio 20.2 (10-20); Calcium 8.4 mg/dl (8.6-10.3); Creatinine Clr Calc Pharmacy 23.6 ml/min; Potassium 3.5 mmol/L (3.5-5.1)
[2024-07-31 03:32] LABS: ANTI-Xa, UFH(UnfractionatedHep 0.28 IU/ml (0.3-0.7)
[2024-07-31] MEDS: LEVOTHYROXINE SODIUM 75 MCG TABLET PO SCH (06:04)
--- NOTE | 2024-07-31 07:09 | Ultrasound Report ---
BILATERAL LOWER EXTREMITY VENOUS DOPPLER CLINICAL HISTORY: Pulmonary emboli. COMPARISON STUDY: No previous studies for comparison. TECHNIQUE: Sonography of the deep venous system of the bilateral lower extremities was performed. Co mpression and augmentation were evaluated. FINDINGS: The bilateral common femoral, superficial femoral and popliteal veins were compressible. A ugmentation was normal. Flow was shown within the deep calf vessels. Increased phasicity of the veins within the lower extremity was incidentally noted. IMPRESSION: No evidence of deep venous thrombus within the bilateral lower extremities. ACT 112: Negative or not required by law. Electronically signed by: Orlando Posada M.D. 07/31/2024 7:07 AM
[2024-07-31] MEDS: PANTOprazole 40 MG TAB PO SCH (08:18)
[2024-07-31] MEDS: MONTELUKAST SODIUM 10 MG TABLET PO SCH (08:18)
[2024-07-31 08:48] LABS: Appearance Urine Clear (Clear); Bacteria Urine Automated None Seen (None Seen); Bilirubin Urine Negative (Negative); Blood Urine Negative (Negative); Color Urine Yellow; Epithelial Cell Urine Auto 0-2 /hpf (0-2); Glucose Urine UA Negative (Negative); Ketones Urine Negative (Negative); Leukocyte Esterase Urine Trace (Negative); Nitrite Urine Negative (Negative); Protein Urine Negative (Negative); RBC Urine Automated 0-2 /hpf (0-2); Specific Gravity Urine 1.045 (1.000-1.030); Urobilinogen Urine Negative (Negative); WBC Urine Automated 0-5 /hpf (0-5)
--- NOTE | 2024-07-31 09:58 | Cardiology Consultation ---
Date of Consultation July 31, 2024 Assessment & Plan (1) Heart failure with preserved ejection fraction (HFpEF, >= 50%): NYHA Class III CXR showed cardiomegaly with pulmonary vascular congestion Chest CTA with severe cardiomegaly, right heart strain, and no consolidation or pleural effusion Euvolemic upon examination today Weight decreased since last admission Recent ECHO with LVEF 60-65%, moderate LVH, moderately dilated right ventricle, severely dilated left and right atrium, moderate , moderate-severe TR, and elevated right ventricular systolic pressure (>60 mmHg) Continue to document daily weights and accurate I&Os. Maintain diet sodium restriction with less than 2g/day. Maintain fluid restriction with less than 64 ounces daily. Continue to re-assess fluid status and determine need for diuresis on daily basis. 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 (2) Hypotension, postural: Blood pressure improved with NSS bolus and stable today Maintenance dose of metoprolol recently reduced given hypotension. Titrate metoprolol succinate as needed for rate control. Continue to hold Cardizem and Imdur given low SBPs in 80s. Recommend discontinuing Cardizem given chronic HFpEF. (3) Chest pain: Chest-pain free since hospital admission. Initial troponin elevated but trended down to 19.6 V-Paced on EKG with rates in 70s and no acute ischemic changes Atypical chest pain and troponin elevation likely secondary to demand ischemia resulting from PE. Continue medical management with IV Heparin. (4) Permanent atrial fibrillation: [id number] (age 2, gender, CHF, HTN, CAD, DM) Heart rate well controlled in 60-70s on telemetry Titrate metoprolol succinate as needed for rate control. Currently off Coumadin due to recent admission for anemia secondary to bleeding varicosities. Multiple indications for anticoagulation with high [id number] score and acute PE. Recommend bridging from IV Heparin to Coumadin before discharge home. (5) Cardiac pacemaker in situ: Device check on 02/21/24 with normal functioning single-lead pacemaker and no significant events. Adequate battery life at 4.83 years. Continue to follow-up outpatient with routine device checks. (6) Hyperlipidemia: Last lipid panel 05/04/24 with LDL (32) and cholesterol (122) well controlled. Continue rosuvastatin 20 mg daily. Supervising Physician Co-Signing Physician Notes Patient was seen and personally examined. Full assessment and plan as outlined by advanced provider. 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 Prior history of heart failure with preserved ejection fraction as well as severe pulmonary hypertension with biatrial enlargement mixed etiology including pulmonary and structural valvular heart disease Recent hospitalization with bleeding varicosity with resultant discontinuation of anticoagulation. Patient now presents with worsening fatigue dyspnea and intermittent hypoxia. No evidence of congestive heart failure on examination and on secondary review of chest x-ray CT scan consistent with pulmonary embolus with recent interruption in anticoagulation due to bleeding concern Physical examination not consistent with congestive heart failure or decompensation Plan as above resume anticoagulation with warfarin after heparin bridge. Patient's blood pressure was labile and low at home reflecting multiple issues. Admitted on reduced dose metoprolol succinate. (Prehospital dosing 100 mg twice per day) would titrate further as necessary for heart rate control. Agree with holding isosorbide and diltiazem. Would not resume diltiazem. History of Present Illness Reason for Consultation: follow-up evaluation, CHF, low BP Requesting Physician: Connor Antonio MD Attending Physician: Christian Martin MD History of Present Illness 89-year-old female with past medical history significant for HFpEF NYHA Class III, permanent AFIB, sick sinus syndrome s/p pacemaker, valvular disease (moderate MR, mild TR), CAD, PVD, PSVT, HTN, HLD, DAIN (on CPAP), severe pulmonary hypertension, DM2, CKD stage III, and chronic anemia presents for evaluation of CHF and hypotension. Recently admitted 07/19-07/23 for anemia secondary to bleeding varicose veins. Hospital course was complicated by delirium and worsening confusion post administration of Zyprexa. Discharged to [facility] and returned back home last week. Her daughter has been assisting with care at home. Poor historian with daughter present at bedside to fill in gaps in history. Patient felt poorly upon returning home. Presyncopal symptoms with positional changes such as assisting with transfer from toilet. Her daughter noted low blood pressures with systolic in 90s and diastolic in 50s. Advised to reduce dose of Imdur and diltiazem per outpatient distillery laborer. Her daughter notes confusion regarding medication regimen after discharge from rehab. Missed doses of diltiazem and Imdur at home for the past few days per daughter. Patient with dull left-sided chest pain yesterday without radiation. Her daughter noted mild shortness of breath and O2 saturation in 70-80s at home. Brought to the ED for evaluation. Given aspirin 320 mg and nitroglycerin. Patient become hypotensive with SBPs in 80s after administration of nitroglycerin. NSS bolus administered. CXR showed some pulmonary vascular congestion. CT PE showed mild burden, subsegmental right sided pulmonary embolism. Severe cardiomegaly, right heart strain, and possible CHF also noted on Chest CTA. Patient resting comfortably in bed. Denies chest pain, shortness of breath, palpitations, worsening edema, abdominal bloating, loss of appetite, or recent weight changes. Shortness of breath with laying flat at night. History of DAIN. Daughter notes non-compliance with CPAP at times. Sleeps with two pillows. Allergies Allergy/AdvReac Type Severity Reaction Status Date / Time Penicillins Allergy Intermediate RASH Verified 07/17/24 14:58 quetiapine [From Seroquel] AdvReac Intermediate sedation Verified 07/30/24 21:07 olanzapine [From Zyprexa] AdvReac Mild Confusion Verified 07/31/24 04:19 glipizide AdvReac dizziness/c Verified 07/17/24 14:58 onfusion Home Medications Medication Instructions Recorded Confirmed Type pantoprazole 40 mg tablet,delayed 40 mg PO QAM ##0 12/25/14 07/30/24 History release diltiazem HCl 240 mg 240 mg PO QAM ##0 09/30/17 07/30/24 History tablet,extended release 24 hr metoprolol succinate 100 mg 100 mg PO BID ##0 10/15/17 07/30/24 History tablet,extended release 24 hr sitagliptin phosphate 50 mg tablet 50 mg PO QAM #0 tabs 02/22/18 07/30/24 History (Januvia) levothyroxine 75 mcg tablet 75 mcg PO DAILYBB 90 days #90 tabs 05/25/18 07/30/24 History rosuvastatin 20 mg tablet 20 mg PO PM 04/14/19 07/30/24 History furosemide 40 mg tablet 40 mg PO AMHS 09/13/23 07/30/24 History magnesium oxide 400 mg PO QAM 09/13/23 07/30/24 History montelukast 10 mg tablet 10 mg PO QAM 09/13/23 07/30/24 History warfarin 5 mg tablet See Rx Instructions .Route .COMPLEX 09/13/23 07/30/24 History isosorbide mononitrate 30 mg 15 mg PO QAM 07/17/24 07/30/24 History tablet,extended release 24 hr diclofenac sodium 1 % topical gel 4 g EXT Q8H #0 grams 07/23/24 07/30/24 Rx (Voltaren Arthritis Pain) methylprednisolone 4 mg tablet 4 mg PO 0700 #0 tabs 07/23/24 07/30/24 Rx methylprednisolone 4 mg tablet 4 mg PO 0700,1300,2100 #0 tabs 07/23/24 07/30/24 Rx methylprednisolone 4 mg tablet 4 mg PO 0700,2100 #0 tabs 07/23/24 07/30/24 Rx Patient History Medical History (Updated 07/31/24 @ 13:44 by Jorge Prince PA-C) Hyperlipidemia Hypotension, postural Permanent atrial fibrillation Heart failure with preserved ejection fraction (HFpEF, >= 50%) Hypertension Cardiac pacemaker in situ Tachy-pham syndrome Atrial fibrillation Acute on chronic diastolic CHF (congestive heart failure), NYHA class 3 MACARIO (dyspnea on exertion) Acute dyspnea Acute exacerbation of congestive heart failure Acute decompensated heart failure Family History Other Alzheimer disease Breast cancer Social History Smoking Status: Never smoker Second Hand Exposure: No; Do You Dip or Chew Tobacco: No; Tobacco Cessation Education Requested by Patient: No Hx Alcohol Use: No Hx Substance Use: No Preferred Language: Turkish Communication Ability: Effective Clinical Editor Required: No Beliefs That Will Affect Care: None marital status: Current Living Situation: Family Current Living Situation Comment: spouse, daughter, son, daughter in law, grandchildren Other Information That Helps Us Care for You: No Feels Safe at Home: Yes Safety Concerns: Feels Safe At This Time Assistive Devices: CPAP, Oxygen - at Night and Walker Review of Systems Review of Systems: All systems reviewed & are unremarkable except as noted in HPI & below See HPI for pertinent positives. All others negative other than those noted in the HPI. CONSTITUTIONAL: No change in weight, No weakness, No fatigue, No fevers, No sweats or chills. HEENT: No visual changes, No epistaxis, No bleeding gums, No dysphagia, PULMONARY: +shortness of breath. No cough, sputum, or hemoptysis, No wheezing, No shortness of breath, and No recent change in breathing. CARDIOVASCULAR: No chest pain, No dyspnea on exertion, No edema, No palpitations, No syncope, No claudication, No calf pain. GASTROINTESTINAL: No change in appetite, No abdominal pain, No change in bowel habits, No significant heartburn, No nausea, No vomiting, No diarrhea, No constipation, No blood in stools or black tarry stools, No dysphagia. HEMATOLOGIC: No abnormal bleeding and No bruising. NEUROLOGICAL: +dizziness. No falls, No lightheadedness, No headaches, and No weakness. PSYCH: +sleep disturbances. No mood changes. Physical Exam Physical Exam: Vital signs within normal limits as above. General: Well developed and nourished. No acute distress. A+Ox3. HEENT: Normocephalic. Atraumatic. EOMI. Conjunctiva and sclera clear. NECK: Mildly elevated JVD. Trachea midline. No thyromegaly. No carotid bruits. Carotid upstrokes are brisk. Heart: RRR. S1 and S2 noted. No murmur. No rubs or gallops. PMI non displaced. Lungs: No acute respiratory distress. Clear to auscultation. No wheezes.No rhonchi. No rales. Abdomen: Normal bowel sounds. Soft. Nontender. Extremities: Normal capillary refill. No edema. No clubbing or cyanosis. Pulses: radial=2/4, dorsal pedis=2/4. Skin: Warm and dry. NEURO: No focal deficits. PSYCH: Poor remote memory. Appropriate affect and insight. Results & Data Vital Signs (Past 12 Hours) Vital Signs Pulse Pulse Resp BP BP Pulse Ox Pulse Ox 07/31/24 03:00 60 19 125/63 97 07/31/24 02:00 61 16 115/60 99 07/31/24 01:01 60 22 139/47 L 98 07/31/24 00:55 99 07/31/24 00:00 65 14 115/60 96 07/31/24 00:00 07/31/24 00:00 60 21 108/51 L 100 07/30/24 23:06 61 16 113/58 L 98 07/30/24 22:23 60 18 07/30/24 22:04 61 16 122/61 99 O2 Del Method O2 Del Method O2 Flow Rate 07/31/24 03:00 CPAP 07/31/24 02:00 CPAP 07/31/24 01:01 CPAP 07/31/24 00:55 CPAP 07/31/24 00:00 Nasal Cannula 3 07/31/24 00:00 Nasal Cannula 3 07/31/24 00:00 CPAP 07/30/24 23:06 Nasal Cannula 3 07/30/24 22:23 07/30/24 22:04 Nasal Cannula 3 Laboratory Results Cardiac Enzymes 07/30/24 07/30/24 Range/Units 16:02 17:45 AST 18 (13-39) U/L Troponin I High Sens 22.9 H 19.6 H (0-14) pg/ml Coagulation 07/30/24 Range/Units 16:02 PT 11.1 (9.0-12.0) Seconds CBC 07/30/24 07/31/24 07/31/24 Range/Units 16:02 00:16 02:56 WBC 8.70 7.07 (4.8-10.8) K/ul RBC 3.59 L 3.04 L (4.20-5.40) M/uL Hgb 10.2 L 8.5 L 8.4 L (12.0-16.0) g/dl Hct 31.8 L 27.2 L 27.1 L (37.0-47.0) % Plt Count 294 223 (130-400) K/uL Neut # (Auto) 5.70 4.72 (1.40-6.50) K/uL Lymph # (Auto) 1.50 0.97 L (1.20-3.40) K/uL [place] # (Auto) 1.24 H 1.09 H (0.11-0.59) K/uL Eos # (Auto) 0.19 0.24 (0.00-0.50) K/uL Baso # (Auto) 0.03 0.02 (0.00-0.20) K/uL Comprehensive Metabolic Panel 07/30/24 07/31/24 Range/Units 16:02 02:55 Sodium 138 140 (136-145) mmol/L Potassium 4.0 3.5 (3.5-5.1) mmol/L Chloride 99 103 (98-107) mmol/L Carbon Dioxide 32 31 (21-32) mmol/L BUN 34 H 33 H (6-23) mg/dl Creatinine 1.74 H 1.63 H (0.6-1.2) mg/dl Glucose 170 H 136 H (70-99(Fasting)) mg/dl Calcium 9.0 8.4 L (8.6-10.3) mg/dl AST 18 (13-39) U/L ALT 16 (7-52) U/L Alkaline Phosphatase 87 (34-104) U/L Total Protein 6.4 (6.0-8.3) gm/dl Albumin 3.9 (3.4-5.0) gm/dl Intake and Output 07/30/24 07/31/24 07/31/24 22:59 06:59 14:59 Intake Total 350 / 473.467 123.467 / 473.467 Output Total 400 / 400 Balance 350 / 473.467 123.467 / 473.467 -400 / -400 Intake: IV 350 / 473.467 123.467 / 473.467 Albumin 25% 25 gm In 100 ml @ 100 / 100 50 mls/hr IV ONE ONE Rx#: [id number] Heparin Sodium/Dextrose 25,000 123.467 / 123.467 units In 500 ml @ 850 UNITS/HR 17 mls/hr IV .Q24H [facility] Rx#: [id number] Sodium Chloride 0.9% 250 ml @ 250 / 250 999 mls/hr IV .Q16M ONE Rx#: [id number] Output: Urine 400 / 400 Other: Weight 75.4 kg 75.4 kg Weight Measurement Method [facility] Diagnostic Findings Telemetry reviewed over last 24 hours. V-paced in 70s with underlying permanent AFIB. ECHO 07/31/24 at 07:55 AM Interpretation Summary: Left ventricle is normal in size Moderate concentric left ventricular hypertrophy Flattened septum consistent with RV pressure overload Apical WMA may reflect pacemaker activation No regional WMAs LVEF = 60-65% Moderately dilated right ventricle Severely dilated left and right atrium Moderate aortic valve stenosis Moderate to severe tricuspid regurgitation Right ventricular systolic pressure is severely elevated at >60 mmHg EKG 07/30/24 V-paced rhythm 78 bpm QTc 535 Device Check 02/21/24 Normal Device Function Alerts or events: None Battery: 2.99 V, 4.83 yrs Sensing, impedance and thresholds reviewed Programmed parameters reviewed Presenting rhythm [employer] Heart Rate Histograms reviewed No significant changes noted V-Paced: 97.74% Chest X-Ray 07/30/24 15:52 XR chest 1V portable CLINICAL HISTORY: Chest pain, nonspecific COMPARISON STUDY: Chest CT September 13, 2023. Chest radiograph September 16, 2023. FINDINGS: Left subclavian pacer is in place. Cardiomegaly is unchanged. There is pulmonary vascular congestion. No consolidation is identified. Right middle lobe opacity shown on prior CT has improved. There is no pneumothorax or pleural effusion. IMPRESSION: 1. Cardiomegaly with pulmonary vascular congestion. 2. No consolidation to suggest pneumonia. ACT 112: Negative or not required by law. Electronically signed by: Orlando Posada M.D. 07/30/2024 4:35 PM Chest CTA 07/30/24 17:37 CR Exam(s): CTA CHEST IV Amt: 119ml optiray 320 EXAM: CT Angiography Chest With Intravenous Contrast CLINICAL HISTORY: Reason for exam: PE. TECHNIQUE: Axial computed tomographic angiography images of the chest with intravenous contrast. CTDI is 45.5 mGy and DLP is 664.13 mGy-cm. Automated exposure control was utilized for the study. A dose lowering technique was utilized adhering to the principles of ALARA. MIP reconstructed images were created and reviewed. 119 mL Optiray 320 given IV, with excellent contrast enhancement of the pulmonary arteries. COMPARISON: None. FINDINGS: Pulmonary arteries: Mild, peripheral, occlusive, subsegmental pulmonary embolism right lower lobe and questionably in the right middle lobe. No other PE. Mild vascular prominence, and contrast reflux into the IVC, the again noted, nonspecific, cannot rule out CHF. Aorta: No aneurysm. Lungs: Clear. No consolidation. Pleural space: No significant effusion. No pneumothorax. Heart: Pacemaker. Severe cardiomegaly. No significant pericardial effusion. RV/LV ratio = 1.3, stable, indicating elevated right heart pressures. Bones/joints: No acute fracture. Soft tissues: Unremarkable. Lymph nodes: No enlarged lymph nodes. IMPRESSION: 1. Mild burden, subsegmental right sided pulmonary embolism. 2. Severe cardiomegaly, right heart strain and possible CHF, stable. 3. No consolidation or pleural effusion. Communications: Call Doctor Pulmonary Embolism Electronically signed by: Graciela Grider M.D. 07/30/24 19:52 PM Venous Doppler Study 07/31/24 08:00 BILATERAL LOWER EXTREMITY VENOUS DOPPLER CLINICAL HISTORY: Pulmonary emboli. COMPARISON STUDY: No previous studies for comparison. TECHNIQUE: Sonography of the deep venous system of the bilateral lower extremities was performed. Compression and augmentation were evaluated. FINDINGS: The bilateral common femoral, superficial femoral and popliteal veins were compressible. Augmentation was normal. Flow was shown within the deep calf vessels. Increased phasicity of the veins within the lower extremity was incidentally noted. IMPRESSION: No evidence of deep venous thrombus within the bilateral lower extremities. ACT 112: Negative or not required by law. Electronically signed by: Orlando Posada M.D. 07/31/2024 7:07 AM (1) Heart failure with preserved ejection fraction (HFpEF, >= 50%) Heart failure chronicity: chronic Qualified Code(s): I50.32 - Chronic diastolic (congestive) heart failure (6) Hyperlipidemia Hyperlipidemia type: mixed hyperlipidemia Qualified Code(s): E78.2 - Mixed hyperlipidemia
[2024-07-31 11:06] LABS: ANTI-Xa, UFH(UnfractionatedHep 0.57 IU/ml (0.3-0.7)
--- NOTE | 2024-07-31 13:26 | Pulmonary Consultation ---
Date of Consultation July 31, 2024 Assessment & Plan (1) Pulmonary emboli: Patient with findings of right-sided segmental pulmonary emboli noted on CTA performed last night. There is also findings recommended on echocardiogram of heart strain. Her troponin is mildly elevated and had peaked already. Her e chocardiogram showed elevated RIGHT-sided heart pressures, however this is consistent with her prior findings as well. She is hemodynamically stable at this time and has not required any supplemental oxygen at this point. I am uncertain if these findings are wireless sales representative of clot burden versus the patient's chronic underlying pulmonary hypertension from sources including possible chronic hypertension and underlying lung dysfunction. Regardless, she is being managed with heparin which I would agree with at this point. Patient to transition to p.o. anticoagulant when able. (2) Pulmonary hypertension: As previously diagnosed and noted during prior echocardiogram. Please see in the setting of underlying lung disease, poorly controlled sleep apnea, or poorly controlled hypertension. Regardless, this does not appear to be a new finding and likely not is contributory to her current presentation. Plan Thank you for allowing us to participate in the care of this pleasant patient. Supervising Physician Co-Signing Physician Notes Patient separately seeing and examined from the [facility]. Agree with the note as outlined above unless otherwise specified. She has small subsegmental right-sided pulmonary emboli and evidence of right heart strain on CT chest. She has evidence of pulmonary hypertension on echo dating back to 2021. I suspect these findings are more chronic rather than acute and would recommend transitioning the patient back to warfarin with a bridge as recommended by cardiology. She is at risk for chronic recurrent thromboemboli due to her varicose veins and sedentary lifestyle. Lifelong anticoagulation is advised. She is currently on room air and does not appear to be in any distress. No further recommendations from pulmonary perspective. Thank you for the consult. Pulmonary to sign off. History of Present Illness Reason for Consultation: jayro keller Requesting Physician: Dr. Anotnio Attending Physician: Christian Martin MD History of Present Illness Patient is an 89-year-old female with a significant past medical history of hypertension, HFpEF, A-fib, valvular heart disease, coronary artery disease, peripheral vascular disease, hyperlipidemia, obstructive sleep apnea requiring CPAP nightly, severe pulmonary hypertension, diabetes, CKD 3, and chronic anemia who presented to the emergency department with complaints of chest pain and shortness of breath. The patient had recently been admitted to a rehab facility after hospitalization related to bleeding of a varicose vein in her lower extremity with associated blood loss anemia. Since being discharged from rehab, she had been doing fine, but the daughter reports upon returning home yesterday she noticed that her mother was requiring supplemental oxygen. When she applied the oxygen, she did check her pulse ox which was "going down." She had contacted the office and was awaiting a return call when the patient complained of chest discomfort. She was brought to the emergency department where, and route, she was provided aspirin and nitroglycerin which promptly dropped the patient's blood pressures into the 80s. She received IV fluids and upon evaluation in the emergency department underwent CTA with findings of small PE with concerns of strain on CT. She was started on heparin and admitted for further evaluation and management. Upon evaluation in room 217, the patient is awake and alert. Her family is at bedside. She reports that she is feeling better at this time without shortness of breath or chest discomfort. Patient carries a prior diagnosis of COPD, however she is not a maintenance inhalers. No prior pulmonary function testing available. Patient offers no acute complaints at this time. Allergies Allergy/AdvReac Type Severity Reaction Status Date / Time Penicillins Allergy Intermediate RASH Verified 07/17/24 14:58 quetiapine [From Seroquel] AdvReac Intermediate sedation Verified 07/30/24 21:07 olanzapine [From Zyprexa] AdvReac Mild Confusion Verified 07/31/24 04:19 glipizide AdvReac dizziness/c Verified 07/17/24 14:58 onfusion Home Medications Medication Instructions Recorded Confirmed Type pantoprazole 40 mg tablet,delayed 40 mg PO QAM ##0 12/25/14 07/30/24 History release diltiazem HCl 240 mg 240 mg PO QAM ##0 09/30/17 07/30/24 History tablet,extended release 24 hr metoprolol succinate 100 mg 100 mg PO BID ##0 10/15/17 07/30/24 History tablet,extended release 24 hr sitagliptin phosphate 50 mg tablet 50 mg PO QAM #0 tabs 02/22/18 07/30/24 History (Jordiuvia) levothyroxine 75 mcg tablet 75 mcg PO DAILYBB 90 days #90 tabs 05/25/18 07/30/24 History rosuvastatin 20 mg tablet 20 mg PO PM 04/14/19 07/30/24 History furosemide 40 mg tablet 40 mg PO AMHS 09/13/23 07/30/24 History magnesium oxide 400 mg PO QAM 09/13/23 07/30/24 History montelukast 10 mg tablet 10 mg PO QAM 09/13/23 07/30/24 History warfarin 5 mg tablet See Rx Instructions .Route .COMPLEX 09/13/23 07/30/24 History isosorbide mononitrate 30 mg 15 mg PO QAM 07/17/24 07/30/24 History tablet,extended release 24 hr diclofenac sodium 1 % topical gel 4 g EXT Q8H #0 grams 07/23/24 07/30/24 Rx (Voltaren Arthritis Pain) Patient History Medical History (Updated 07/31/24 @ 13:44 by Jorge Prince PA-C) Hyperlipidemia Hypotension, postural Permanent atrial fibrillation Heart failure with preserved ejection fraction (HFpEF, >= 50%) Hypertension Cardiac pacemaker in situ Tachy-pham syndrome Atrial fibrillation Acute on chronic diastolic CHF (congestive heart failure), NYHA class 3 MACARIO (dyspnea on exertion) Acute dyspnea Acute exacerbation of congestive heart failure Acute decompensated heart failure Family History Other Alzheimer disease Breast cancer Social History Smoking Status: Never smoker Second Hand Exposure: No; Do You Dip or Chew Tobacco: No; Tobacco Cessation Education Requested by Patient: No Hx Alcohol Use: No Hx Substance Use: No Preferred Language: Lithuanian Communication Ability: Effective Security Shift Supervisor Required: No Beliefs That Will Affect Care: None marital status: Current Living Situation: Family Current Living Situation Comment: spouse, daughter, son, daughter in law, grandchildren Other Information That Helps Us Care for You: No Feels Safe at Home: Yes Safety Concerns: Feels Safe At This Time Assistive Devices: CPAP, Oxygen - at Night and Walker Review of Systems Review of Systems: A complete 10 point review of systems was reviewed with the patient with pertinent positives and negatives as per history of present illness. All else were negative. Physical Exam Physical Exam: VITAL SIGNS Vital signs and nursing notes were reviewed. GENERAL 89-year-old female appearing her stated age who is in no acute distress. Communicates well with provider and answers questions appropriately. SKIN Without rashes or lesions. NOSE Midline and without cyanosis. MOUTH/OROPHARYNX Without perioral cyanosis. NECK Neck with FROM. LUNGS Chest wall evaluation demonstrates normal chest wall A:P diameter. Auscultation reveals diminished breath sounds at the bases. No wheezes. CARDIAC RRR with S1/S2. No murmur, rubs, or gallops appreciated. ABDOMEN Abdominal inspection demonstrates obese. BS normoactive all four quadrants. No tenderness, palpable masses, or ascites noted. EXTREMITIES Nail clubbing not present. No peripheral cyanosis. No pretibial edema present. +3/5 radial palpated throughout. PSYCH A&O and cooperates fully with examiner. Pt is very pleasant and interacts well with examiner. Results & Data Results & Data Vital Signs (Past 12 Hours) Vital Signs Temp Pulse Pulse Resp BP BP Pulse Ox 07/31/24 13:00 64 07/31/24 13:00 36.8 C 66 18 128/77 94 07/31/24 11:00 62 16 120/72 98 07/31/24 03:00 60 19 125/63 97 07/31/24 02:00 61 16 115/60 99 O2 Del Method 07/31/24 13:00 07/31/24 13:00 Room Air 07/31/24 11:00 Room Air 07/31/24 03:00 CPAP 07/31/24 02:00 CPAP PG Care Time/CCT Total # of Minutes Spent Total Time Spent with Patient: Total time spent is greater than 50% in coordination of care (as documented) at patient's floor/unit and/or counseling patient: Coding Level of Care Code 21811 INT INP/OBS CARE 3/75MIN Diagnoses Pulmonary emboli I26.99 Pulmonary hypertension I27.20
--- NOTE | 2024-07-31 15:08 | Hospitalist Progress Note ---
Date of Service July 31, 2024 Assessment & Plan (1) SOB (shortness of breath): Plan: Acute pulmonary emboli Chronic underlying pulmonary hypertension --Chest CTA: Mild burden, subsegmental right sided pulmonary embolism. Severe cardiomegaly, right heart strain and possible CHF, stable. No consolidation or pleural effusion. --Venous Doppler:No evidence of deep venous thrombus within the bilateral lower extremities. --ECHO: Moderate concentric LVH. Flattened septum consistent with RV pressure overload. Apical wall motion abnormality may reflect pacemaker activation. EF 60 to 65%. Right ventricle is moderately dilated. Left atrium severely dilated. Right atrium is severely dilated. Aortic valve sclerosis moderate, without significant stenosis. Moderate to severe tricuspid regurgitation. Right ventricular systolic pressure is severely elevated > 60 mmHg. --Coumadin held at rehab facility due to bleeding from varicose veins --Continue IV heparin Appreciate pulmonology input Saturating well on room air Transition to Coumadin as able Mild troponin elevation Likely demand ischemia secondary to above Monitor Acute on chronic HFpEF CT, echo as above Volume status seems to be at baseline Monitor I's and O's, daily weight Resume home diuretics when blood pressure stable Appreciate cardiology input Hypotension Received IV fluids Resume home diltiazem, isosorbide when blood pressure more stable Continue metoprolol at reduced dose with holding parameters Monitor BP closely Lower back pain Will obtain lumbar x-ray PT OT, fall precautions YISEL on CKD III Received IV fluids Monitor renal function Avoid nephrotoxic agents as able Valvular heart disease SSS S/P PPM CAD/PVD PSVT Currently off Coumadin due to recent admission for bleeding LE varicosities Continue home medications May need to consult vascular surgery if develops recurrence of bleeding from varicose veins Hyperlipidemia on statin Hypothyroidism Continue levothyroxine DM II Hold p.o. meds Last HbA1c 6.5 Continue insulin while hospitalized Chronic anemia Hb at baseline monitor DVT px IV heparin Code Status DNR/DNI Admission and Anticipated Discharge Date Admission Date: July 30, 2024 Subjective Patient is seen and examined at bedside States having lower back pain No other complaints today Denies any chest pain, dyspnea, nausea, vomiting, abdominal pain Discussed with patient's daughter at bedside Saturating well on room air Review of Systems Review of Systems: All systems reviewed & are unremarkable except as noted in Subjective Physical Exam Physical Exam: Physical Exam: Vitals signs as noted above General Appearance:Obese, no apparent distress, Elderly Head: normocephalic, Atraumatic Eyes: normal inspection, EOMI Neck: supple, Trachea midline Respiratory/Chest: Decreased breath sounds, minimal basal crackles, No accessory muscle use Cardiovascular: S1, S2, +murmur,+Pacer Abdomen/GI:Soft, Non tender, Bowel sounds present Extremities/Musculoskeletal:normal inspection, 1-2+ B/L LE edema+ varicose veins Neurologic/Psych:AAOX3, grossly no focal neurological deficits, +Decreased hearing Skin: normal color, warm Results & Data Results & Data Vital Signs (Past 12 Hours) Vital Signs Temp Pulse Pulse Resp BP BP Pulse Ox 07/31/24 13:00 64 07/31/24 13:00 36.8 C 66 18 128/77 94 07/31/24 11:00 62 16 120/72 98 O2 Del Method 07/31/24 13:00 07/31/24 13:00 Room Air 07/31/24 11:00 Room Air Laboratory Results Short CBC 07/30/24 07/31/24 07/31/24 Range/Units 16:02 00:16 02:56 WBC 8.70 7.07 (4.8-10.8) K/ul Hgb 10.2 L 8.5 L 8.4 L (12.0-16.0) g/dl Hct 31.8 L 27.2 L 27.1 L (37.0-47.0) % Plt Count 294 223 (130-400) K/uL BMP 07/30/24 07/31/24 16:02 02:55 Sodium 138 140 Potassium 4.0 3.5 Chloride 99 103 Carbon Dioxide 32 31 BUN 34 H 33 H Creatinine 1.74 H 1.63 H Glucose 170 H 136 H Calcium 9.0 8.4 L Liver Function 07/30/24 Range/Units 16:02 Total Bilirubin 0.8 (0.2-1.0) mg/dl AST 18 (13-39) U/L ALT 16 (7-52) U/L Alkaline Phosphatase 87 (34-104) U/L Albumin 3.9 (3.4-5.0) gm/dl Urine 07/31/24 Range/Units 08:25 Urine Color Yellow Urine Appearance Clear (Clear) Urine pH 6.0 (4.5-7.5) Ur Specific Honeydew 1.045 H (1.000-1.030) Urine Protein Negative (Negative) Urine Glucose (UA) Negative (Negative)
--- NOTE | 2024-07-31 15:46 | XRay Report ---
XR lumbar spine 2-3V CLINICAL HISTORY: Lumbar spine CT July 19, 2024. COMPARISON STUDY: No previous studies for comparison. FINDINGS: Pacer leads are partially imaged. 1.2 cm of anterolisthesis of L4 and L5 is unchanged since lumbar spine CT of July 19, 2024. This is due to bilateral L4 pars defects. Mild loss of height o f the inferior endplate of L1 is also unchanged. No acute lumbar spine fractures are present. There i s severe multilevel disc space narrowing and endplate osteophytosis with vacuum disc phenomenon at mu ltiple levels. There is also severe multilevel facet arthrosis. IMPRESSION: 1. No acute lumbar spine fractures. Old mild L1 compression fracture, unchanged. 2. Severe multilevel degenerative disc disease and facet arthrosis within the lumbar spine. 3. No change in grade II anterolisthesis of L4 and L5 due to bilateral L4 pars defects. ACT 112: Negative or not required by law. Electronically signed by: Orlando Posada M.D. 07/31/2024 3:44 PM
[2024-07-31] MEDS: ACETAMINOPHEN 325 MG TAB PO PRN (20:39)
[2024-08-01] MEDS: MELATONIN 3 MG TAB PO PRN (01:23)
[2024-08-01 06:59] LABS: Hematocrit (blood only) 27.9 % (37.0-47.0); Hemoglobin 8.9 g/dl (12.0-16.0); Mean Corpuscular Hgb Conc 31.9 g/dL (32.0-36.0); Mean Corpuscular Volume 87.7 fL (80.0-100.0); Mean Platelet Volume 10.6 fL (9.4-12.4); Platelet Count 232 K/uL (130-400); RDW Coefficient of Variation 14.9 % (11.5-14.5); RDW Standard Deviation 48.5 fL (36.4-46.3); Red Blood Count 3.18 M/uL (4.20-5.40); White Blood Count 6.04 K/ul (4.8-10.8)
[2024-08-01 07:38] LABS: BUN Creatinine Ratio 18.3 (10-20); Calcium 8.8 mg/dl (8.6-10.3); Creatinine Clr Calc Pharmacy 33.5 ml/min; Potassium 3.7 mmol/L (3.5-5.1)
[2024-08-01] MEDS ORDERED: ENOXAPARIN 1 MG/KG SC SCH (08:00)
[2024-08-01] MEDS: ENOXAPARIN 80 MG/0.8 ML SYR SQ SCH (09:17)
--- NOTE | 2024-08-01 09:42 | Cardiology Progress Note ---
Date of Service August 01, 2024 Assessment & Plan (1) Heart failure with preserved ejection fraction (HFpEF, >= 50%): Plan: NYHA Class III (2) Permanent atrial fibrillation: Plan: [id number] (age 2, gender, CHF, HTN, CAD, DM) (3) Cardiac pacemaker in situ: (4) Hypertension: (5) Hyperlipidemia: Plan Patient sleeping in bed upon examination today. Arousable to voice and command, but not responsive to questions. Her granddaughter was present at bedside to fill in a few details. Euvolemic upon examination today with no evidence of acute on chronic HFpEF. Continue to document daily weights and report accurate I&Os. We will continue to re-assess daily fluid status and need for diuresis. She will likely need to re-start ENGINEERING SCIENTIST furosemide 40 mg daily once she starts eating and drinking. Maintain diet sodium restriction with less than 2g/day. Maintain fluid restriction with less than 64 ounces daily. Continue to monitor and replace electrolytes with goal of K+ at 4.0 and Mg at 2.0 Potassium 3.7 upon review of labs Administer Potassium Chloride 30 mEq one-time dose Heart rates well-controlled in 60-70s on telemetry review. Titrate metoprolol succinate as needed for rate control. IV Heparin discontinued and Lovenox initiated upon chart review. Requires anticoagulant therapy given high [id number] score, permanent AFIB, and acute PE on recent Chest CTA. Blood pressure elevated with systolics 140-150s and diastolics 60-80s Start isosorbide mononitrate 30 mg PO QAM Educated regarding monitoring blood pressure at home and presyncope symptoms Bedside device check revealed normal functioning single-chamber pacemaker with no significant event. V-Paced at 97.5%. Battery Life: 2.98V, 4.0 years. Continue to follow-up outpatient with routine device checks Last lipid panel 05/04/24 with LDL and cholesterol well controlled. Continue rosuvastatin 20 mg daily. Admission and Anticipated Discharge Date Admission Date: July 30, 2024 Supervising Physician Co-Signing Physician Notes Patient seen and personally examined. Assessment and plan as well outlined above. Care discussed Patient restless night and now sleeping this morning. No acute complaints. No significant cough, chest pain or worsening hypoxia Heart rates well-controlled on reduced dose Will resume isosorbide mononitrate as above for further blood pressure control Will not restart diltiazem Subjective 89-year-old female with complex underlying medical history significant for HFpEF NYHA Class III, 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 Recent hospital admission (07/19-07/23) for anemia secondary to bleeding varicose veins. Coumadin discontinued. Hospital course was complicated by delirium and worsening confusion post administration of Zyprexa. Discharged to [facility] and returned back home last week. Her daughter has been assisting with care at home. Patient felt poorly upon returning home. Her daughter noted low blood pressures with systolic in 90s and diastolic in 50s. Advised to reduce dose of Imdur and diltiazem per outpatient sock ironer. Her daughter was confused regarding medication regimen after discharge from rehab. Missed doses of diltiazem and Imdur at home for the past few days. Patient noted dull left-sided chest pain yesterday without radiation. She had associated mild shortness of breath with O2 saturation in 70-80s at home. Brought to the ED for evaluation. Given aspirin 320 mg and nitroglycerin. Patient become hypotensive with SBPs in 80s after administration of nitroglycerin. NSS bolus administered. CXR showed some pulmonary vascular congestion. CT PE showed mild burden, subsegmental right sided pulmonary embolism. Severe cardiomegaly, right heart strain, and possible CHF also noted on Chest CTA. Patient sleeping in bed upon examination today. Arousable to voice, but unresponsive to questions. Her granddaughter is present at bedside. Her granddaughter states that she was disoriented yesterday evening. She has been lethargic since given melatonin at 2:00 AM. Per granddaughter, patient has ongoing back pain and occasional dry cough that wakes her up at night. Otherwise feeling well with no reports of chest pain or shortness of breath. Chart, medications, and telemetry reviewed. Review of Systems Review of Systems: See HPI for pertinent positives. All others negative other than those noted in the HPI. CONSTITUTIONAL: No change in weight, No weakness, No fatigue, No fevers, No sweats or chills. HEENT: No visual changes, No epistaxis, No bleeding gums, No dysphagia, PULMONARY: +Cough. No sputum or hemoptysis, No wheezing, No shortness of breath, and No recent change in breathing. CARDIOVASCULAR: No chest pain, No dyspnea on exertion, No edema, No palpitations, No syncope, No claudication, No calf pain. GASTROINTESTINAL: No change in appetite, No abdominal pain, No change in bowel habits, No significant heartburn, No nausea, No vomiting, No diarrhea, No constipation, No blood in stools or black tarry stools, No dysphagia. HEMATOLOGIC: No abnormal bleeding and No bruising. NEUROLOGICAL: No falls, No lightheadedness, No headaches, and No weakness. PSYCH: +sleep disturbances. No mood changes. Physical Exam Physical Exam: Vital signs within normal limits as above. General: Somolent. Arousable to voice. No acute distress. Well developed and nourished. HEENT: Normocephalic. Atraumatic. NECK: Mildly elevated JVD. Trachea midline. No thyromegaly. No carotid bruits. Carotid upstrokes are brisk. Heart: RRR. S1 and S2 noted. No murmur. No rubs or gallops. PMI non displaced. Lungs: No acute respiratory distress. Clear to auscultation. No wheezes.No rhonchi. No rales. Abdomen: Normal bowel sounds. Soft. Nontender. Extremities: Normal capillary refill. No edema. No clubbing or cyanosis. Skin: Warm and dry. NEURO: No focal deficits. PSYCH: Confused. Results & Data Vital Signs (Past 12 Hours) Vital Signs Temp Pulse Pulse Resp BP Pulse Ox Pulse Ox 08/01/24 08:00 96 08/01/24 07:35 60 08/01/24 07:10 36.5 C 59 L 18 150/81 H 100 08/01/24 03:46 36.8 C 60 18 137/59 L 92 08/01/24 00:00 97 07/31/24 23:19 36.7 C 71 18 155/78 H 97 07/31/24 23:11 65 07/31/24 21:43 O2 Del Method O2 Del Method O2 Flow Rate 08/01/24 08:00 Room Air 08/01/24 07:35 08/01/24 07:10 BiPAP 08/01/24 03:46 Room Air 08/01/24 00:00 CPAP 3 07/31/24 23:19 BiPAP 07/31/24 23:11 07/31/24 21:43 Room Air Laboratory Results CBC 08/01/24 Range/Units 06:06 WBC 6.04 (4.8-10.8) K/ul RBC 3.18 L (4.20-5.40) M/uL Hgb 8.9 L (12.0-16.0) g/dl Hct 27.9 L (37.0-47.0) % Plt Count 232 (130-400) K/uL Comprehensive Metabolic Panel 08/01/24 Range/Units 06:06 Sodium 139 (136-145) mmol/L Potassium 3.7 (3.5-5.1) mmol/L Chloride 103 (98-107) mmol/L Carbon Dioxide 30 (21-32) mmol/L BUN 21 (6-23) mg/dl Creatinine 1.15 D (0.6-1.2) mg/dl Glucose 124 H (70-99(Fasting)) mg/dl Calcium 8.8 (8.6-10.3) mg/dl Intake and Output 07/31/24 08/01/24 08/01/24 22:59 06:59 14:59 Intake Total 365.267 / 1261.533 136.266 / 1261.533 101.150 / 101.150 Output Total 700 / 1200 100 / 1200 Balance -334.733 / 61.533 36.266 / 61.533 101.150 / 101.150 Intake: IV 240.267 / 376.533 136.266 / 376.533 101.150 / 101.150 Heparin Sodium/Dextrose 25,000 240.267 / 376.533 136.266 / 376.533 101.150 / 101.150 units In 500 ml @ 850 UNITS/HR 17 mls/hr IV .Q24H [facility] Rx#: [id number] Oral 125 / 885 Output: Urine Amount (Catheter) 700 / 800 100 / 800 External 700 / 800 100 / 800 Other: Other Intake Source sips Weight 74.4 kg Weight Measurement Method [facility] Diagnostic Findings Telemetry reviewed over the past 24 hours. V-Paced in 60-70s with underlying permanent AFIB. Bedside device check performed and reviewed personally by me. Normal functioning device. No significant events or alerts. Battery Life: 2.98 V, 4.0 years. Predominant rhythm V-paced. V-Paced: 97.5%. Reviewed ECHO from 07/31/24 at 07:55 AM: Interpretation Summary: Left ventricle is normal in size Moderate concentric left ventricular hypertrophy Flattened septum consistent with RV pressure overload Apical WMA may reflect pacemaker activation No regional WMAs LVEF = 60-65% Moderately dilated right ventricle Severely dilated left and right atrium Moderate aortic valve stenosis Moderate to severe tricuspid regurgitation Right ventricular systolic pressure is severely elevated at >60 mmHg Reviewed EKG from 07/30/24: V-paced 78 bpm QTc 535 Reviewed Device Check from 02/21/24: Normal Device Function Alerts or events: None Battery: 2.99 V, 4.83 yrs Sensing, impedance and thresholds reviewed Programmed parameters reviewed Presenting rhythm SURVEY COORDINATOR Heart Rate Histograms reviewed No significant changes noted V-Paced: 97.74% Reviewed Chest CTA from 07/30/24: IMPRESSION: 1. Mild burden, subsegmental right sided pulmonary embolism. 2. Severe cardiomegaly, right heart strain and possible CHF, stable. 3. No consolidation or pleural effusion. Reviewed CXR from 07/30/24: IMPRESSION: 1. Cardiomegaly with pulmonary vascular dongestion 2. No consolidation to suggest pneumonia Reviewed Bilateral Venous Doppler Study from 07/31/24: IMPRESSION: No evidence of deep venous thrombus within the bilateral lower extremities. (1) Heart failure with preserved ejection fraction (HFpEF, >= 50%) Heart failure chronicity: chronic Qualified Code(s): I50.32 - Chronic diastolic (congestive) heart failure (5) Hyperlipidemia Hyperlipidemia type: mixed hyperlipidemia Qualified Code(s): E78.2 - Mixed hyperlipidemia
[2024-08-01] MEDS: ISOSORBIDE MONO EXTENDED REL 30 MG TABCR PO SCH (10:48)
[2024-08-01] MEDS: POTASSIUM CHLORIDE 10 MEQ TABCR PO ONE (12:05)
--- NOTE | 2024-08-01 14:00 | Hospitalist Progress Note ---
Date of Service August 01, 2024 Assessment & Plan (1) SOB (shortness of breath): Plan: Acute pulmonary emboli Chronic underlying pulmonary hypertension Patient presented to the hospital with shortness of breath. She previously was on Coumadin for A-fib which was discontinued after episode of varicose vein bleeding --Chest CTA on admission: Mild burden, subsegmental right sided pulmonary embolism. Severe cardiomegaly, right heart strain and possible CHF, stable. No consolidation or pleural effusion. --Venous Doppler:No evidence of deep venous thrombus within the bilateral lower extremities. --ECHO: Moderate concentric LVH. Flattened septum consistent with RV pressure overload. Apical wall motion abnormality may reflect pacemaker activation. EF 60 to 65%. Right ventricle is moderately dilated. Left atrium severely dilate d. Right atrium is severely dilated. Aortic valve sclerosis moderate, without significant stenosis. Moderate to severe tricuspid regurgitation. Right ventricular systolic pressure is severely elevated > 60 mmHg. Discussed with patient's daughter regarding choice of anticoagulation. I discussed about DOACs advantages/disadvantages with Coumadin in detail. She is interested in starting to ask and wanted me to reach out to her primary care doctor see if he agrees as well. He also thought it was a great idea if insurance covers for it. Prescription for Eliquis sent to check on the yañez. Continue on Lovenox CT head ordered due to lethargy Mild troponin elevation Likely demand ischemia secondary to above Monitor Acute on chronic HFpEF CT, echo as above Volume status seems to be at baseline Monitor I's and O's, daily weight Resume home diuretics when blood pressure stable Appreciate cardiology input Hypotension Received IV fluids Resume home diltiazem, isosorbide when blood pressure more stable Continue metoprolol at reduced dose with holding parameters Monitor BP closely Lower back pain PT OT, fall precautions YISEL on CKD III Received IV fluids Monitor renal function Avoid nephrotoxic agents as able Valvular heart disease SSS S/P PPM CAD/PVD PSVT Currently off Coumadin due to recent admission for bleeding LE varicosities Continue home medications Hyperlipidemia on statin Hypothyroidism Continue levothyroxine DM II Hold p.o. meds Last HbA1c 6.5 Continue insulin while hospitalized Chronic anemia Hb at baseline monitor DVT px lovenox Code Status DNR/DNI Time spent evaluating patient, direct bedside care, chart review, placing orders, interpretation of diagnostic studies, discussion with consultants, [place], and family members, as well as other required patient management activities is 50 minutes Please note the above document was generated using voice recognition software. It may contain grammatical, syntax or spelling errors. Any formal questions or concerns about the content, text or information contained within the body of this dictation should be directly addressed to the provider for clarification Admission and Anticipated Discharge Date Admission Date: July 30, 2024 Subjective Patient seen couple of times in the morning and afternoon. She is sleepy; awake evaluate voice. She is oriented to self. No significant events overnight Review of Systems Review of Systems: Unobtainable due to cognitive status Physical Exam Physical Exam: Physical Exam: Vitals signs as noted above General Appearance:Sleepy, awakeable by voice. Not in distress Head: normocephalic, Atraumatic Eyes: normal inspection, EOMI Neck: supple, Trachea midline Respiratory/Chest: Decreased breath sounds, minimal basal crackles, No accessory muscle use Cardiovascular: S1, S2, +murmur,+Pacer Abdomen/GI:Soft, Non tender, Bowel sounds present Extremities/Musculoskeletal:normal inspection, 1-2+ B/L LE edema+ varicose veins Neurologic/Psych:AAOX3, grossly no focal neurological deficits, +Decreased hearing Skin: normal color, warm Results & Data Results & Data Vital Signs (Past 12 Hours) Vital Signs Temp Pulse Pulse Resp BP Pulse Ox Pulse Ox 08/01/24 11:04 36.7 C 67 18 145/65 H 96 08/01/24 10:53 08/01/24 08:00 96 08/01/24 07:35 60 08/01/24 07:10 36.5 C 59 L 18 150/81 H 100 08/01/24 03:46 36.8 C 60 18 137/59 L 92 O2 Del Method O2 Del Method 08/01/24 11:04 Room Air 08/01/24 10:53 Room Air 08/01/24 08:00 Room Air 08/01/24 07:35 08/01/24 07:10 BiPAP 08/01/24 03:46 Room Air
[2024-08-02] MEDS: traMADol HCL 50 MG TABLET PO STA (04:09)
--- NOTE | 2024-08-02 05:47 | Electrocardiogram Report ---
Test Reason : Blood Pressure : */* mmHG Vent. Rate : 78 BPM Atrial Rate : 78 BPM P-R Int : * ms QRS Dur : 198 ms QT Int : 470 ms P-R-T Axes : * -73 106 degrees QTcB Int : 535 ms Ventricular-paced rhythm Abnormal ECG When compared with ECG of 13-Sep-2023 13:00, Vent. rate has increased by 13 bpm Confirmed by Albino Contreras ([id number]) on 08/02/2024 5:46:38 AM Referred By: REFERRED SELF Confirmed By: Albino Contreras
[2024-08-02 06:43] LABS: Troponin I High Sensitivity 15.5 pg/ml (0-14)
[2024-08-02 06:58] LABS: INR 1.1 (0.9-1.1); Prothrombin Time 11.8 Seconds (9.0-12.0)
[2024-08-02 10:55] LABS: BUN Creatinine Ratio 18.4 (10-20); Calcium 8.8 mg/dl (8.6-10.3); Creatinine Clr Calc Pharmacy 37.4 ml/min; Potassium 4.1 mmol/L (3.5-5.1)
[2024-08-02] MEDS: FUROSEMIDE 40 MG TAB PO SCH (12:26)
--- NOTE | 2024-08-02 13:02 | Cardiology Progress Note ---
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 Resting comfortably in bed during exam. Overall feeling well. Her granddaughter reports episode of dull, aching left-sided chest pain last night and associated shortness of breath. Chest Pain Patient with episode of dull left-sided chest pain, non-radiating and non- exertional, last night Mild elevation but troponins downtrending (22.9-19.6-15.5) Ongoing atypical chest pain with pleuritic component secondary to PE and musculoskeletal component secondary to back pain Chronic HFpEF, NYHA Class III Patient with episode of acute dyspnea last night Euvolemic upon examination today with no evidence of acute on chronic HFpEF. Last ECHO 07/31/24 with LVEF 60-65%, moderate LVH, moderately dilated right ventricle, severely dilated left and right atrium, moderate , moderate-severe TR, and severe pulmonary hypertension (>60 mmHg) Start furosemide 40 mg PO daily Continue to assess fluid status, may need to titrate furosemide once patient starts eating and drinking Continue to document daily weights and report accurate I&Os. Maintain diet sodium restriction with less than 2g/day. Maintain fluid restriction with less than 64 ounces daily. Continue to monitor and replace electrolytes with goal of K+ at 4.0 and Mg at 2.0 Kidney function and electrolytes stable upon review of labs Permanent AFIB Heart rates well-controlled in 60-70s on telemetry review. Titrate metoprolol succinate as needed for rate control. IV Heparin discontinued and Lovenox initiated upon chart review. Requires anticoagulant therapy given high [id number] score, permanent AFIB, and acute PE on recent Chest CTA. Continue Lovenox Discussion regarding choice of anticoagulation therapy with Hospitalist and prescription for Eliquis sent to check on the yañez Cardiac pacemaker in situ Bedside device check yesterday revealed normal functioning single-chamber pacemaker with no significant event. V-Paced at 97.5%. Battery Life: 2.98V, 4.0 years. Continue to follow-up outpatient with routine device checks HTN Blood pressure elevated today Continue isosorbide mononitrate 30 mg PO QAM Educated regarding monitoring blood pressure at home and presyncope symptoms. Consider reducing dose to 15 mg if patient starts experiencing low blood pressures HLD Last lipid panel 05/04/24 with LDL and cholesterol well controlled. Continue rosuvastatin 20 mg daily. Admission and Anticipated Discharge Date Admission Date: July 30, 2024 Supervising Physician Co-Signing Physician Notes Patient seen and personally examined. Assessment and plan as well outlined above. Care discussed with advanced provider and personally endorsed Patient visibly more alert this morning Mild ache especially with deep inspiration in the chest consistent with patient's peripheral diagnosis of pulmonary embolus No hypoxia no worsening edema mild jugular venous distention consistent with chronic right heart failure, pulm and Blood pressure trending slightly higher Plan: As above resume furosemide orally at 40 mg/day Treat pulmonary embolus and anticoagulation per primary care service Subjective 89-year-old female with complex underlying medical history significant for HFpEF NYHA Class III, 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 Recent hospital admission (07/19-07/23) for anemia secondary to bleeding varicose veins. Coumadin discontinued. Hospital course was complicated by delirium and worsening confusion post administration of Zyprexa. Discharged to [facility] and returned back home last week. Her daughter has been assisting with care at home. Patient felt poorly upon returning home. Her daughter noted low blood pressures with systolic in 90s and diastolic in 50s. Advised to reduce dose of Imdur and diltiazem per outpatient ground control approach technician. Her daughter was confused regarding medication regimen after discharge from rehab. Missed doses of diltiazem and Imdur at home for the past few days. Patient noted dull left-sided chest pain yesterday without radiation. She had associated mild shortness of breath with O2 saturation in 70-80s at home. Brought to the ED for evaluation. Given aspirin 320 mg and nitroglycerin. Patient become hypotensive with SBPs in 80s after administration of nitroglycerin. NSS bolus administered. CXR showed some pulmonary vascular congestion. CT PE showed mild burden, subsegmental right sided pulmonary embolism. Severe cardiomegaly, right heart strain, and possible CHF also noted on Chest CTA. Patient resting comfortably in bed upon examination today. Poor historian with bethanie alvarezmavis is present at bedside to fill in gaps in history. She is overall feeling well today. Denies chest pain, palpitations, shortness of breath, lightheadedness, dizziness, or edema. Her granddaughter states that she had an episode of chest pain and shortness of breath yesterday evening. Left-sided dull aching chest pain without radiation while resting in bed. Lasted a few minutes. She had associated shortness of breath. She was compliant with wearing CPAP or supplemental oxygen last night. Troponin down trended (22.9-19.6) and 15.5 last night. She did not have ECG last night. Denies recurrent chest pain this morning. Chart, medications, and telemetry reviewed. Review of Systems Review of Systems: See HPI for pertinent positives. All others negative other than those noted in the HPI. CONSTITUTIONAL: No change in weight, No weakness, No fatigue, No fevers, No sweats or chills. HEENT: No visual changes, No epistaxis, No bleeding gums, No dysphagia, PULMONARY: +shortness of breath. No sputum or hemoptysis, No wheezing, and No recent change in breathing. CARDIOVASCULAR: +chest pain. No dyspnea on exertion, No edema, No palpitations, No syncope, No claudication, No calf pain. GASTROINTESTINAL: No change in appetite, No abdominal pain, No change in bowel habits, No significant heartburn, No nausea, No vomiting, No diarrhea, No constipation, No blood in stools or black tarry stools, No dysphagia. HEMATOLOGIC: No abnormal bleeding and No bruising. NEUROLOGICAL: No falls, No lightheadedness, No headaches, and No weakness. PSYCH: +sleep disturbances. No mood changes. Physical Exam Physical Exam: Vital signs within normal limits as above. General: Healthy appearing. No acute distress. Well developed and nourished. HEENT: Normocephalic. Atraumatic. EOMI. Conjunctiva and sclera clear. NECK: Elevated JVD. Trachea midline. No thyromegaly. No carotid bruits. Carotid upstrokes are brisk. Heart: RRR. S1 and S2 noted. No murmur. No rubs or gallops. PMI non displaced. Lungs: No acute respiratory distress. Clear to auscultation. No wheezes.No rhonchi. No rales. Abdomen: Normal bowel sounds. Soft. Nontender. Extremities: Normal capillary refill. No edema. No clubbing or cyanosis. Skin: Warm and dry. NEURO: No focal deficits. PSYCH: Confused. Results & Data Vital Signs (Past 12 Hours) Vital Signs Temp Pulse Pulse Resp BP Pulse Ox O2 Del Method 08/02/24 11:00 36.6 C 70 22 149/77 H 98 Nasal Cannula, Other 08/02/24 07:30 36.5 C 68 20 151/63 H 96 Nasal Cannula 08/02/24 07:00 65 08/02/24 07:00 Room Air 08/02/24 03:17 36.5 C 71 18 161/69 H 98 Nasal Cannula O2 Flow Rate 08/02/24 11:00 2 08/02/24 07:30 2 08/02/24 07:00 08/02/24 07:00 08/02/24 03:17 2 Laboratory Results Cardiac Enzymes 08/02/24 Range/Units 05:47 Troponin I High Sens 15.5 H (0-14) pg/ml Coagulation 08/02/24 Range/Units 05:47 PT 11.8 (9.0-12.0) Seconds Comprehensive Metabolic Panel 08/02/24 Range/Units 05:47 Sodium 139 (136-145) mmol/L Potassium 4.1 (3.5-5.1) mmol/L Chloride 104 (98-107) mmol/L Carbon Dioxide 24 (21-32) mmol/L BUN 19 (6-23) mg/dl Creatinine 1.03 (0.6-1.2) mg/dl Glucose 106 H (70-99(Fasting)) mg/dl Calcium 8.8 (8.6-10.3) mg/dl Intake and Output 08/01/24 08/02/24 08/02/24 22:59 06:59 14:59 Intake Total 275 / 376.150 Output Total 800 / 1000 200 / 1000 Balance -800 / -623.850 75 / -623.850 Intake: Oral 275 / 275 Output: Urine 800 / 800 Urine Amount (Catheter) 200 / 200 External 200 / 200 Other: Weight 68.7 kg Weight Measurement Method Built in [facility] Diagnostic Findings Telemetry reviewed over the past 24 hours. V-Paced in 60-70s with underlying permanent AFIB. Bedside device check performed yesterday and reviewed personally by me. Normal functioning device. No significant events or alerts. Battery Life: 2.98 V, 4.0 years. Predominant rhythm V-paced. V-Paced: 97.5%. Reviewed ECHO from 07/31/24 at 07:55 AM: Interpretation Summary: Left ventricle is normal in size Moderate concentric left ventricular hypertrophy Flattened septum consistent with RV pressure overload Apical WMA may reflect pacemaker activation No regional WMAs LVEF = 60-65% Moderately dilated right ventricle Severely dilated left and right atrium Moderate aortic valve stenosis Moderate to severe tricuspid regurgitation Right ventricular systolic pressure is severely elevated at >60 mmHg Reviewed EKG from 07/30/24: V-paced 78 bpm QTc 535 Reviewed Device Check from 02/21/24: Normal Device Function Alerts or events: None Battery: 2.99 V, 4.83 yrs Sensing, impedance and thresholds reviewed Programmed parameters reviewed Presenting rhythm WARP PICKER Heart Rate Histograms reviewed No significant changes noted V-Paced: 97.74% Chest X-Ray 07/30/24 15:52 XR chest 1V portable CLINICAL HISTORY: Chest pain, nonspecific COMPARISON STUDY: Chest CT September 13, 2023. Chest radiograph September 16, 2023. FINDINGS: Left subclavian pacer is in place. Cardiomegaly is unchanged. There is pulmonary vascular congestion. No consolidation is identified. Right middle lobe opacity shown on prior CT has improved. There is no pneumothorax or pleural effusion. IMPRESSION: 1. Cardiomegaly with pulmonary vascular congestion. 2. No consolidation to suggest pneumonia. ACT 112: Negative or not required by law. Electronically signed by: Orlando Posada M.D. 07/30/2024 4:35 PM Chest CTA 07/30/24 17:37 CR Exam(s): CTA CHEST IV Amt: 119ml optiray 320 EXAM: CT Angiography Chest With Intravenous Contrast CLINICAL HISTORY: Reason for exam: PE. TECHNIQUE: Axial computed tomographic angiography images of the chest with intravenous contrast. CTDI is 45.5 mGy and DLP is 664.13 mGy-cm. Automated exposure control was utilized for the study. A dose lowering technique was utilized adhering to the principles of ALARA. MIP reconstructed images were created and reviewed. 119 mL Optiray 320 given IV, with excellent contrast enhancement of the pulmonary arteries. COMPARISON: None. FINDINGS: Pulmonary arteries: Mild, peripheral, occlusive, subsegmental pulmonary embolism right lower lobe and questionably in the right middle lobe. No other PE. Mild vascular prominence, and contrast reflux into the IVC, the again noted, nonspecific, cannot rule out CHF. Aorta: No aneurysm. Lungs: Clear. No consolidation. Pleural space: No significant effusion. No pneumothorax. Heart: Pacemaker. Severe cardiomegaly. No significant pericardial effusion. RV/LV ratio = 1.3, stable, indicating elevated right heart pressures. Bones/joints: No acute fracture. Soft tissues: Unremarkable. Lymph nodes: No enlarged lymph nodes. IMPRESSION: 1. Mild burden, subsegmental right sided pulmonary embolism. 2. Severe cardiomegaly, right heart strain and possible CHF, stable. 3. No consolidation or pleural effusion. Communications: Call Doctor Pulmonary Embolism Electronically signed by: Graciela Grider M.D. 07/30/24 19:52 PM (2) Heart failure with preserved ejection fraction (HFpEF, >= 50%) Heart failure chronicity: chronic Qualified Code(s): I50.32 - Chronic diastolic (congestive) heart failure (6) Hyperlipidemia Hyperlipidemia type: mixed hyperlipidemia Qualified Code(s): E78.2 - Mixed hyperlipidemia
--- NOTE | 2024-08-02 14:34 | Hospitalist Progress Note ---
Date of Service August 02, 2024 Assessment & Plan (1) SOB (shortness of breath): Plan: Acute pulmonary emboli Chronic underlying pulmonary hypertension Patient presented to the hospital with shortness of breath. She previously was on Coumadin for A-fib which was discontinued after episode of varicose vein bleeding --Chest CTA on admission: Mild burden, subsegmental right sided pulmonary embolism. Severe cardiomegaly, right heart strain and possible CHF, stable. No consolidation or pleural effusion. --Venous Doppler:No evidence of deep venous thrombus within the bilateral lower extremities. --ECHO: Moderate concentric LVH. Flattened septum consistent with RV pressure overload. Apical wall motion abnormality may reflect pacemaker activation. EF 60 to 65%. Right ventricle is moderately dilated. Left atrium severely dilate d. Right atrium is severely dilated. Aortic valve sclerosis moderate, without significant stenosis. Moderate to severe tricuspid regurgitation. Right ventricular systolic pressure is severely elevated > 60 mmHg. Discussed with patient's daughter regarding choice of anticoagulation. I discussed about DOACs advantages/disadvantages with Coumadin in detail. She is interested in starting to ask and wanted me to reach out to her primary care doctor see if he agrees as well. Dr. Phoenix also thought it was a great idea if insurance covers for it. Prescription for Eliquis sent to check on the yañez; copay is 47$; Changed lovenox to Eliquis Mild troponin elevation Likely demand ischemia secondary to above Monitor Acute on chronic HFpEF CT, echo as above Volume status seems to be at baseline Monitor I's and O's, daily weight started on oral lasix Hypotension Received IV fluids Resume home diltiazem, isosorbide when blood pressure more stable Continue metoprolol at reduced dose with holding parameters Monitor BP closely Lower back pain PT OT, fall precautions YISEL on CKD III Received IV fluids Monitor renal function Avoid nephrotoxic agents as able Valvular heart disease SSS S/P PPM CAD/PVD PSVT Currently off Coumadin due to recent admission for bleeding LE varicosities Continue home medications started on Eliquis Hyperlipidemia on statin Hypothyroidism Continue levothyroxine DM II Hold p.o. meds Last HbA1c 6.5 Continue insulin while hospitalized Chronic anemia Hb at baseline monitor DVT px lovenox Code Status DNR/DNI Time spent evaluating patient, direct bedside care, chart review, placing orders, interpretation of diagnostic studies, discussion with consultants, patient, and family members, as well as other required patient management activities is 50 minutes Please note the above document was generated using voice recognition software. It may contain grammatical, syntax or spelling errors. Any formal questions or concerns about the content, text or information contained within the body of this dictation should be directly addressed to the provider for clarification Admission and Anticipated Discharge Date Admission Date: July 30, 2024 Subjective Patient more awake and interactive today She reports of chest discomfort on the right side No significant events overnight Review of Systems Review of Systems: All systems reviewed & are unremarkable except as noted in Subjective Physical Exam Physical Exam: Physical Exam: Vitals signs as noted above General Appearance:Alert oriented x 3; not in distress. Head: normocephalic, Atraumatic Eyes: normal inspection, EOMI Neck: supple, Trachea midline Respiratory/Chest: Decreased breath sounds, minimal basal crackles, No accessory muscle use Cardiovascular: S1, S2, +murmur,+Pacer Abdomen/GI:Soft, Non tender, Bowel sounds present Extremities/Musculoskeletal:normal inspection, 1-2+ B/L LE edema+ varicose veins Neurologic/Psych:AAOX3, grossly no focal neurological deficits, +Decreased hearing Skin: normal color, warm Results & Data Results & Data Vital Signs (Past 12 Hours) Vital Signs Temp Pulse Pulse Resp BP Pulse Ox Pulse Ox 08/02/24 12:35 08/02/24 11:00 36.6 C 70 22 149/77 H 98 08/02/24 08:00 94 08/02/24 07:30 36.5 C 68 20 151/63 H 96 08/02/24 07:00 65 08/02/24 07:00 08/02/24 03:17 36.5 C 71 18 161/69 H 98 Pulse Ox O2 Del Method O2 Del Method O2 Flow Rate 08/02/24 12:35 95 08/02/24 11:00 Nasal Cannula, Other 2 08/02/24 08:00 Room Air 08/02/24 07:30 Nasal Cannula 2 08/02/24 07:00 08/02/24 07:00 Room Air 08/02/24 03:17 Nasal Cannula 2
[2024-08-02] MEDS: APIXABAN 5 MG TABLET PO SCH (20:36)
[2024-08-03 08:42] LABS: Basophils # (auto) 0.02 K/uL (0.00-0.20); Basophils % (auto) 0.3 %; Eosinophils # (auto) 0.26 K/uL (0.00-0.50); Eosinophils % (auto) 3.3 %; Hematocrit (blood only) 27.8 % (37.0-47.0); Hemoglobin 9.1 g/dl (12.0-16.0); Immature Granulocytes # (auto) 0.02 K/uL (0.01-0.20); Immature Granulocytes % (auto) 0.3 %; Lymphocytes # (auto) 0.88 K/uL (1.20-3.40); Lymphocytes % (auto) 11.1 %; Mean Corpuscular Hemoglobin 28.6 pg (25.0-34.0); Mean Corpuscular Hgb Conc 32.7 g/dL (32.0-36.0); Mean Corpuscular Volume 87.4 fL (80.0-100.0); Mean Platelet Volume 10.4 fL (9.4-12.4); Monocytes # (auto) 1.11 K/uL (0.11-0.59); Neutrophils # (auto) 5.63 K/uL (1.40-6.50); Platelet Count 220 K/uL (130-400); RDW Standard Deviation 48.2 fL (36.4-46.3); Red Blood Count 3.18 M/uL (4.20-5.40); White Blood Count 7.92 K/ul (4.8-10.8)
--- NOTE | 2024-08-03 12:09 | Cardiology Progress Note ---
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 Resting comfortably in bed during exam. Resting comfortably in bed and overall feeling well. Slept well overnight. Denied recurrent chest pain or shortness of breath. Chronic HFpEF, NYHA Class III Euvolemic upon examination today with no evidence of acute on chronic HFpEF. Last ECHO 07/31/24 with LVEF 60-65%, moderate LVH, moderately dilated right ventricle, severely dilated left and right atrium, moderate , moderate-severe TR, and severe pulmonary hypertension (>60 mmHg) Continue furosemide 40 mg PO daily Continue to assess fluid status, may need to titrate furosemide once patient starts eating and drinking Continue to record daily weights Maintain diet sodium restriction with less than 2g/day. Maintain fluid restriction with less than 64 ounces daily. Recommend outpatient cardiology follow-up and BMP in 1 week after hospital discharge Permanent AFIB Heart rates well-controlled in 60-70s on telemetry review. Stopped diltiazem, would not resume given history of CHF Continue on reduced dose of metoprolol succinate 50 mg twice daily, titrate as necessary for rate control Continue Eliquis 10 mg twice daily Cardiac pacemaker in situ Bedside device check on 08/01/24 revealed normal functioning single-chamber pacemaker with no significant event. V-Paced at 97.5%. Battery Life: 2.98V, 4.0 years. Continue to follow-up outpatient with routine device checks HTN Blood pressure elevated today Continue isosorbide mononitrate 30 mg PO QAM Educated regarding monitoring blood pressure at home and presyncope symptoms. Consider reducing dose to 15 mg if patient starts experiencing low blood pressures HLD Last lipid panel 05/04/24 with LDL and cholesterol well controlled. Continue rosuvastatin 20 mg daily. Admission and Anticipated Discharge Date Admission Date: July 30, 2024 Supervising Physician Co-Signing Physician Notes Patient seen and personally examined. Assessment and plan as well outlined above. Care discussed with advanced provider and personally endorsed Awakens easily from sleep no acute complains Heart rate trending slightly higher we will increase metoprolol to succinate to 75 mg twice per day. 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 Recent hospital admission (07/19-07/23) for anemia secondary to bleeding varicose veins. Coumadin discontinued. Hospital course was complicated by delirium and worsening confusion post administration of Zyprexa. Discharged to [facility] and returned back home last week. Her daughter has been assisting with care at home. Patient felt poorly upon returning home. Her daughter noted low blood pressures with systolic in 90s and diastolic in 50s. Advised to reduce dose of Imdur and diltiazem per outpatient core analysis operator. Her daughter was confused regarding medication regimen after discharge from rehab. Missed doses of diltiazem and Imdur at home for the past few days. Patient noted dull left-sided chest pain yesterday without radiation. She had associated mild shortness of breath with O2 saturation in 70-80s at home. Brought to the ED for evaluation. Given aspirin 320 mg and nitroglycerin. Patient become hypotensive with SBPs in 80s after administration of nitroglycerin. NSS bolus administered. CXR showed some pulmonary vascular congestion. CT PE showed mild burden, subsegmental right sided pulmonary embolism. Severe cardiomegaly, right heart strain, and possible CHF also noted on Chest CTA. Patient resting comfortably in bed. Poor historian and granddaughter present at bedside to fill in gaps in history. She is overall feeling well. She slept well overnight without shortness of breath or chest pain per granddaughter. Denies chest pain, shortness of breath, palpitations, lightheadedness, dizziness, or edema today. Assisted to stand at the edge of the bed by respiratory therapy this morning. Denies chest pain or dyspnea on exertion with activity. Chart, medications, and telemetry reviewed. Review of Systems Review of Systems: See HPI for pertinent positives. All others negative other than those noted in the HPI. CONSTITUTIONAL: No change in weight, No weakness, No fatigue, No fevers, No sweats or chills. HEENT: No visual changes, No epistaxis, No bleeding gums, No dysphagia, PULMONARY: No sputum or hemoptysis, No shortness of breath, No wheezing, and No recent change in breathing. CARDIOVASCULAR: No chest pain. No dyspnea on exertion, No edema, No palpitations, No syncope, No claudication, No calf pain. GASTROINTESTINAL: No change in appetite, No abdominal pain, No change in bowel habits, No significant heartburn, No nausea, No vomiting, No diarrhea, No constipation, No blood in stools or black tarry stools, No dysphagia. HEMATOLOGIC: No abnormal bleeding and No bruising. NEUROLOGICAL: No falls, No lightheadedness, No headaches, and No weakness. PSYCH: No sleep disturbances. No mood changes. Physical Exam Physical Exam: Vital signs within normal limits as above. General: Healthy appearing. No acute distress. Well developed and nourished. HEENT: Normocephalic. Atraumatic. EOMI. Conjunctiva and sclera clear. NECK: Mildly elevated JVD. Trachea midline. No thyromegaly. No carotid bruits. Carotid upstrokes are brisk. Heart: RRR. S1 and S2 noted. No murmur. No rubs or gallops. PMI non displaced. Lungs: No acute respiratory distress. Fine crackles auscultated throughout lower lobes. No wheezes.No rhonchi. Abdomen: Normal bowel sounds. Soft. Nontender. Extremities: Normal capillary refill. No edema. No clubbing or cyanosis. Skin: Warm and dry. NEURO: No focal deficits. PSYCH: Alert and cooperative. Poor remote memory. Results & Data Vital Signs (Past 12 Hours) Vital Signs Temp Pulse Resp BP Pulse Ox Pulse Ox O2 Del Method 08/03/24 08:30 Nasal Cannula 08/03/24 07:42 37.0 C 87 20 135/69 98 Nasal Cannula 08/03/24 03:37 37.2 C 70 18 150/78 H 97 Nasal Cannula 08/03/24 00:00 92 O2 Del Method O2 Flow Rate O2 Flow Rate 08/03/24 08:30 2 08/03/24 07:42 2 08/03/24 03:37 2 08/03/24 00:00 Nasal Cannula 2 Laboratory Results CBC 08/03/24 Range/Units 08:19 WBC 7.92 (4.8-10.8) K/ul RBC 3.18 L (4.20-5.40) M/uL Hgb 9.1 L (12.0-16.0) g/dl Hct 27.8 L (37.0-47.0) % Plt Count 220 (130-400) K/uL Neut # (Auto) 5.63 (1.40-6.50) K/uL Lymph # (Auto) 0.88 L (1.20-3.40) K/uL [place] # (Auto) 1.11 H (0.11-0.59) K/uL Eos # (Auto) 0.26 (0.00-0.50) K/uL Baso # (Auto) 0.02 (0.00-0.20) K/uL Intake and Output 08/02/24 08/03/24 08/03/24 22:59 06:59 14:59 Other: Weight 74.7 kg Weight Measurement Method Built in [facility] Diagnostic Findings Telemetry reviewed over the past 24 hours. V-Paced in 60-70s with underlying permanent AFIB. Bedside device check performed on 08/01/24 and reviewed personally by me. Normal functioning device. No significant events or alerts. Battery Life: 2.98 V, 4.0 years. Predominant rhythm V-paced. V-Paced: 97.5%. Reviewed ECHO from 07/31/24 at 07:55 AM: Interpretation Summary: Left ventricle is normal in size Moderate concentric left ventricular hypertrophy Flattened septum consistent with RV pressure overload Apical WMA may reflect pacemaker activation No regional WMAs LVEF = 60-65% Moderately dilated right ventricle Severely dilated left and right atrium Moderate aortic valve stenosis Moderate to severe tricuspid regurgitation Right ventricular systolic pressure is severely elevated at >60 mmHg Reviewed EKG from 07/30/24: V-paced 78 bpm QTc 535 Reviewed Device Check from 02/21/24: Normal Device Function Alerts or events: None Battery: 2.99 V, 4.83 yrs Sensing, impedance and thresholds reviewed Programmed parameters reviewed Presenting rhythm [employer] Heart Rate Histograms reviewed No significant changes noted V-Paced: 97.74% Chest X-Ray 07/30/24 15:52 XR chest 1V portable CLINICAL HISTORY: Chest pain, nonspecific COMPARISON STUDY: Chest CT September 13, 2023. Chest radiograph September 16, 2023. FINDINGS: Left subclavian pacer is in place. Cardiomegaly is unchanged. There is pulmonary vascular congestion. No consolidation is identified. Right middle lobe opacity shown on prior CT has improved. There is no pneumothorax or pleural effusion. IMPRESSION: 1. Cardiomegaly with pulmonary vascular congestion. 2. No consolidation to suggest pneumonia. ACT 112: Negative or not required by law. Electronically signed by: Orlando Posada M.D. 07/30/2024 4:35 PM Chest CTA 07/30/24 17:37 CR Exam(s): CTA CHEST IV Amt: 119ml optiray 320 EXAM: CT Angiography Chest With Intravenous Contrast CLINICAL HISTORY: Reason for exam: PE. TECHNIQUE: Axial computed tomographic angiography images of the chest with intravenous contrast. CTDI is 45.5 mGy and DLP is 664.13 mGy-cm. Automated exposure control was utilized for the study. A dose lowering technique was utilized adhering to the principles of ALARA. MIP reconstructed images were created and reviewed. 119 mL Optiray 320 given IV, with excellent contrast enhancement of the pulmonary arteries. COMPARISON: None. FINDINGS: Pulmonary arteries: Mild, peripheral, occlusive, subsegmental pulmonary embolism right lower lobe and questionably in the right middle lobe. No other PE. Mild vascular prominence, and contrast reflux into the IVC, the again noted, nonspecific, cannot rule out CHF. Aorta: No aneurysm. Lungs: Clear. No consolidation. Pleural space: No significant effusion. No pneumothorax. Heart: Pacemaker. Severe cardiomegaly. No significant pericardial effusion. RV/LV ratio = 1.3, stable, indicating elevated right heart pressures. Bones/joints: No acute fracture. Soft tissues: Unremarkable. Lymph nodes: No enlarged lymph nodes. IMPRESSION: 1. Mild burden, subsegmental right sided pulmonary embolism. 2. Severe cardiomegaly, right heart strain and possible CHF, stable. 3. No consolidation or pleural effusion. Communications: Call Doctor Pulmonary Embolism Electronically signed by: Graciela Grider M.D. 07/30/24 19:52 PM (1) Heart failure with preserved ejection fraction (HFpEF, >= 50%) Heart failure chronicity: chronic Qualified Code(s): I50.32 - Chronic diastolic (congestive) heart failure (5) Hyperlipidemia Hyperlipidemia type: mixed hyperlipidemia Qualified Code(s): E78.2 - Mixed hyperlipidemia
--- NOTE | 2024-08-03 13:29 | Hospitalist Progress Note ---
Date of Service August 03, 2024 Assessment & Plan (1) SOB (shortness of breath): Plan: Acute pulmonary emboli Chronic underlying pulmonary hypertension Patient presented to the hospital with shortness of breath. She previously was on Coumadin for A-fib which was discontinued after episode of varicose vein bleeding --Chest CTA on admission: Mild burden, subsegmental right sided pulmonary embolism. Severe cardiomegaly, right heart strain and possible CHF, stable. No consolidation or pleural effusion. --Venous Doppler:No evidence of deep venous thrombus within the bilateral lower extremities. --ECHO: Moderate concentric LVH. Flattened septum consistent with RV pressure overload. Apical wall motion abnormality may reflect pacemaker activation. EF 60 to 65%. Right ventricle is moderately dilated. Left atrium severely dilate d. Right atrium is severely dilated. Aortic valve sclerosis moderate, without significant stenosis. Moderate to severe tricuspid regurgitation. Right ventricular systolic pressure is severely elevated > 60 mmHg. Continue on Eliquis 10 mg twice a day for 7 days; plan to switch over to 5 mg twice a day after completion of 7 days. Instruction given to patient's daughter who verbalized understanding. We discussed goals of care as well. Patient has decreasing level of function since last several months; hospice referral provided in case management updated for possible initiation of hospice at home. Acute on chronic HFpEF CT, echo as above Volume status seems to be at baseline Monitor I's and O's, daily weight started on oral lasix Hypotension Received IV fluids home antihypertensive gradually restarted. Cardizem stopped YISEL on CKD III Received IV fluids Monitor renal function Avoid nephrotoxic agents as able Valvular heart disease SSS S/P PPM CAD/PVD PSVT Currently off Coumadin due to recent admission for bleeding LE varicosities Continue home medications started on Eliquis Hyperlipidemia on statin, continue Hypothyroidism Continue levothyroxine DM II Hold p.o. meds Last HbA1c 6.5 Continue insulin while hospitalized Chronic anemia Hb at baseline monitor DVT px eliquis Code Status DNR/DNI Time spent evaluating patient, direct bedside care, chart review, placing orders, interpretation of diagnostic studies, discussion with consultants, patient, and family members, as well as other required patient management activities is 50 minutes Please note the above document was generated using voice recognition software. It may contain grammatical, syntax or spelling errors. Any formal questions or concerns about the content, text or information contained within the body of this dictation should be directly addressed to the provider for clarification Admission and Anticipated Discharge Date Admission Date: July 30, 2024 Subjective Patient seen and examined at bedside. She is Sleepy but awake able with voice No significant events overnight Review of Systems Review of Systems: All systems reviewed & are unremarkable except as noted in Subjective Physical Exam Physical Exam: Physical Exam: Vitals signs as noted above General Appearance:sleepy but awakeable by voice, not in any distress Head: normocephalic, Atraumatic Eyes: normal inspection, EOMI Neck: supple, Trachea midline Respiratory/Chest: Decreased breath sounds, minimal basal crackles, No accessory muscle use Cardiovascular: S1, S2, +murmur,+Pacer Abdomen/GI:Soft, Non tender, Bowel sounds present Extremities/Musculoskeletal:normal inspection, 1-2+ B/L LE edema+ varicose veins Neurologic/Psych:grossly moves all extremities Skin: normal color, warm Results & Data Results & Data Vital Signs (Past 12 Hours) Vital Signs Temp Pulse Resp BP Pulse Ox O2 Del Method O2 Flow Rate 08/03/24 12:00 36.9 C 77 18 110/74 92 Room Air 08/03/24 11:47 37.0 C 87 20 135/69 98 08/03/24 08:30 Nasal Cannula 2 08/03/24 07:42 37.0 C 87 20 135/69 98 Nasal Cannula 2 08/03/24 03:37 37.2 C 70 18 150/78 H 97 Nasal Cannula 2
--- NOTE | 2024-08-03 13:39 | Discharge Summary ---
Date of Service August 03, 2024 Admission HPI Per Admitting Provider History obtained from patient, family, and records. Medical history significant for chronic diastolic heart failure (EF of 55-60%, TTE 2021 ), valvular heart disease (moderate MR, mild TR),SSS status post PPM currently off Coumadin, CAD as per records, PVD, PSVT, hypertension, hyperlipidemia, DAIN on CPAP, pulmonary hypertension, hypothyroidism, DM2 on oral meds, CRI (baseline creatinine 1.3-1.4), chronic anemia (baseline hemoglobin of 8), varicose veins. Recent confinement July 19 to 2023 for anemia secondary to bleeding varicose vein. Bleeding controlled with local measures. Outpatient vascular surgery consultation contemplated. Hospital course complicated by delirium and worsening confusion post Zyprexa administration. Patient Coumadin held on discharge to rehab facility. Patient to discuss risks/benefits of resumption with PCP on follow-up as per discharge note. Hemoglobin 8 at time of discharge. Confusion during [facility] rehab confinement. Patient given Seroquel and was sleeping for days as per daughter. Patient not feeling well since returning home last week. Blood pressure noted to be low. SBP at PCP's office 4 days ago was 90s. Patient encouraged to increase fluids. Outpatient cardiology provider recommended giving one half of low-dose Imdur followed by small reduction in diltiazem if with persistent hypotension. Patient noted to be more short of breath today. No cough symptoms. Achy left-sided chest pain without radiation. Usual leg swelling as per patient. O2 sats noted to be 70s at home. Patient given aspirin and nitroglycerin at home. SBP noted to be 80s. NSS bolus administered. Patient brought to ER for evaluation. MEDICAL HISTORY: As above. SURGERIES: PPM, back surgery, knee surgery, appendectomy, mastoid surgery, tonsillectomy, inguinal hernia repair, right oophorectomy FAMILY HISTORY: Breast cancer, dementia PERSONAL SOCIAL HISTORY: Nonsmoker, no chronic intake of alcohol. 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 Lives with . Admission Exam Per Admitting Provider GENERAL: Ill-appearing, slightly hard of hearing, no respiratory distress SKIN: Pallor, warm HEENT: Pale palpebral conjunctivae, patch over left eye, dry buccal mucosa, nasal cannula in place NECK : Supple, no tenderness CHEST : Decreased breath sounds , no tenderness HEART : RRR, systolic murmur ABDOMEN: Some distention, nontender EXTREMITIES : Minimal bilateral LE swelling with venous varicosities, no other conspicuous deformities noted NEUROLOGIC : Oriented today, no facial asymmetry, slightly hard of hearing, gait and stance not assessed Principal Diagnosis Acute pulmonary emboli Chronic underlying pulmonary hypertension Discharge Exam Physical Exam: Vitals signs as noted above General Appearance:sleepy but awakeable by voice, not in any distress Head: normocephalic, Atraumatic Eyes: normal inspection, EOMI Neck: supple, Trachea midline Respiratory/Chest: Decreased breath sounds, minimal basal crackles, No accessory muscle use Cardiovascular: S1, S2, +murmur,+Pacer Abdomen/GI:Soft, Non tender, Bowel sounds present Extremities/Musculoskeletal:normal inspection, 1-2+ B/L LE edema+ varicose veins Neurologic/Psych:grossly moves all extremities Skin: normal color, warm Discharge Data Allergies Allergy/AdvReac Type Severity Reaction Status Date / Time Penicillins Allergy Intermediate RASH Verified 07/17/24 14:58 quetiapine [From Seroquel] AdvReac Intermediate sedation Verified 07/30/24 21:07 olanzapine [From Zyprexa] AdvReac Mild Confusion Verified 07/31/24 04:19 glipizide AdvReac dizziness/c Verified 07/17/24 14:58 onfusion Consultations 07/30/24 19:28 ED Decision to Admit Stat 07/30/24 21:14 Consult Cardiology Routine 07/31/24 04:32 Consult Pulmonology Routine Ordered Studies 07/30/24 17:37 CT for pulmonary embolism PE [CT angio chest PE protocol] Stat 07/31/24 08:00 US venous doppler LE Routine Hospital Course (1) SOB (shortness of breath): Acute pulmonary emboli Chronic underlying pulmonary hypertension Patient presented to the hospital with shortness of breath. She previously was on Coumadin for A-fib which was discontinued after episode of varicose vein bleeding --Chest CTA on admission: Mild burden, subsegmental right sided pulmonary embolism. Severe cardiomegaly, right heart strain and possible CHF, stable. No consolidation or pleural effusion. --Venous Doppler:No evidence of deep venous thrombus within the bilateral lower extremities. --ECHO: Moderate concentric LVH. Flattened septum consistent with RV pressure overload. Apical wall motion abnormality may reflect pacemaker activation. EF 60 to 65%. Right ventricle is moderately dilated. Left atrium severely dilated. Right atrium is severely dilated. Aortic valve sclerosis moderate, without significant stenosis. Moderate to severe tricuspid regurgitation. Right ventricular systolic pressure is severely elevated > 60 mmHg. Continue on Eliquis 10 mg twice a day for 7 days; plan to switch over to 5 mg twice a day after completion of 7 days. Instruction given to patient's daughter who verbalized understanding. We discussed goals of care as well. Patient has decreasing level of function since last several months; hospice referral provided in case management updated for possible initiation of hospice at home. Cardiology also consulted during hospitalization for optimization of her medication; Cardizem was stopped. Dose of metoprolol were decreased. Lasix dose decreased to once daily as well. Please note the above document was generated using voice recognition software. It may contain grammatical, syntax or spelling errors. Any formal questions or concerns about the content, text or information contained within the body of this dictation should be directly addressed to the provider for clarification Total Time Total Time Spent Total Time Spent (In Minutes): 45 Total Time Includes: Examination of the Patient, Discharge Planning, Medication Reconciliation, Communication With Other Providers and Other Discharge Plan Discharge Items Patient Disposition: Home - Self-Care Reason For Visit: PE, CHF (PRIVATE RM PER [facility] REQ) Discharge Diagnosis: Acute pulmonary emboli Activity: Resume your previous activity Non-emergency contact: Primary Care Provider Call non-emergency contact if: you have any medication questions and your symptoms worsen Follow-up/Referrals: Chad Phoenix DO [Primary Care Provider] - (Date & Time 08/08/2024 11:00 AM Provider Chad Phoenix DO Department [facility] ) Diet: Regular Addtl Attending Provider Instructions: You were admitted to the hospital with blood clot in your lungs. You are prescribed Eliquis( Blood thinner). Please follow the instructions below: 1)Take Eliquis 10mg ( 2 tablets) twice a day for total of 7 days ( August 08, morning) 2)Take Eliquis 5mg ( 1 tablet) twice a day starting evening of August 08. Cardiology evaluated you during the hospitalization, they recommend following medication adjustments: 1) Take Imdur 30mg once a day 2) Take metoprolol 50mg twice a day 3) Take lasix 40mg once a day. 4) Stop taking Diltiazem Follow up with PCP. Pending Studies at Discharge: No Stand-Alone Forms: My [facility], Smoking Cessation Medications and DC Order Prescriptions: New Eliquis 5 mg tablet 5 mg PO BID Qty: 60 0RF metoprolol succinate 50 mg Tablet Extended Release 24 Hr 50 mg PO BID Qty: 60 0RF isosorbide mononitrate 30 mg Tablet Extended Release 24 Hr 30 mg PO QAM Qty: 30 0RF Continued pantoprazole 40 mg Tablet,Delayed Release (Dr/Ec) 40 mg PO QAM Qty: 0 Januvia 50 mg Tablet 50 mg PO QAM Qty: 0 levothyroxine 75 mcg Tablet 75 mcg PO DAILYBB 90 Days Qty: 90 rosuvastatin 20 mg tablet 20 mg PO PM montelukast 10 mg tablet 10 mg PO QAM magnesium oxide 400 mg magnesium Tablet 400 mg PO QAM diclofenac sodium [Voltaren Arthritis Pain] 1 % Gel 4 g EXT Q8H Qty: 0 0RF Changed furosemide 40 mg tablet 40 mg PO DAILY Qty: 0 0RF Discontinued diltiazem HCl 240 mg Tablet Extended Release 24 Hr 240 mg PO QAM Qty: 0 metoprolol succinate 100 mg Tablet Extended Release 24 Hr 100 mg PO BID Qty: 0 warfarin 5 mg Tablet See Rx Instructions .ROUTE .COMPLEX Hold Instructions: Until told to resume by PCP Rx Instructions: Take 2.5mg on Tuesday mornings and 5mg all other mornings. WAS TOLD TO HOLD ON 07/23 UNTIL INSTRUCTED BY PCP isosorbide mononitrate 30 mg tablet extended release 24 hr 15 mg PO QAM Discharge Orders: Discharge Order (Routine); Ordered 08/03/24 Ordered By: Berlin Espinosa Admission Data Admit Date/Time: 07/30/24 19:59 Attending Provider: Berlin Espinosa Admit Provider: Connor Antonio Primary Care Provider: Chad Phoenix Other Providers: Connor Antonio; Mallory Kwok; Rusty Mack; Gil Boyce; Rafal Carrillo; Chito Juan; Jian Sainz; Nicolasa Stockton; Cleo Buchanan; Angy Isaacs; Mallory Bacon; Tony Crowell; Rene Healy; Judit Adkins; Venita Sparrow; Yeni Laureano; Gris Deleon; Eldon Masterson; Karine Almonte; Kimberly Paige; Jorge Prince; Troy Arizmendi; Jeremiah Burrows; Amanda Cunningham; Jessica Voss; Radha Lu; Pritesh Velasquez; Jcarlos Martinez; Sanjuana oMore; [facility] Other Interventions: Discharge Summary Assessment (RN) Last Done: 08/03/24 11:47
[2024-08-03] MEDS: cefTRIAXone SODIUM 2,000 MG/50 ML BAG IV SCH (16:47)
[2024-08-03] MEDS: POLYETHYLENE (MIRALAX) 17 GM PACK PO SCH (18:44)
[2024-08-03] MEDS: MAGNESIUM HYDROXIDE SUSP 30 ML UDC PO ONE (18:44)
[2024-08-03] MEDS: METOPROLOL SUCC 25MG EXT REL TAB PO SCH (21:56)
[2024-08-04 06:56] LABS: Hematocrit (blood only) 28.6 % (37.0-47.0); Hemoglobin 9.3 g/dl (12.0-16.0); Mean Corpuscular Hemoglobin 28.4 pg (25.0-34.0); Mean Corpuscular Hgb Conc 32.5 g/dL (32.0-36.0); Mean Corpuscular Volume 87.2 fL (80.0-100.0); Mean Platelet Volume 10.3 fL (9.4-12.4); Platelet Count 220 K/uL (130-400); RDW Coefficient of Variation 14.9 % (11.5-14.5); RDW Standard Deviation 47.8 fL (36.4-46.3); Red Blood Count 3.28 M/uL (4.20-5.40); White Blood Count 6.89 K/ul (4.8-10.8)
[2024-08-04 07:13] LABS: Creatinine Clr Calc Pharmacy 32.9 ml/min
[2024-08-04 08:59] LABS: Appearance Urine Clear (Clear); Bacteria Urine Automated None Seen (None Seen); Bilirubin Urine Negative (Negative); Blood Urine Negative (Negative); Cast Urine Automated 0-2 /lpf (0-2); Color Urine Yellow; Glucose Urine UA Negative (Negative); Ketones Urine Negative (Negative); Leukocyte Esterase Urine Negative (Negative); Nitrite Urine Negative (Negative); Protein Urine 1+ (Negative); RBC Urine Automated 0-2 /hpf (0-2); Specific Gravity Urine 1.022 (1.000-1.030); Urobilinogen Urine Negative (Negative); WBC Urine Automated 0-5 /hpf (0-5); pH Urine 5.5 (4.5-7.5)
[2024-08-04] MEDS ORDERED: INFLUENZA VACC TS2024-25(65y+)/PF (IIV3) 0.5mL Syr IM ONE (10:30)
[2024-08-04] MEDS: LIDOCAINE 5% 1 PATCH TD SCH (10:50)
--- NOTE | 2024-08-04 10:54 | Hospitalist Progress Note ---
Date of Service August 04, 2024 Assessment & Plan (1) SOB (shortness of breath): Plan: Acute pulmonary emboli Chronic underlying pulmonary hypertension Patient presented to the hospital with shortness of breath. She previously was on Coumadin for A-fib which was discontinued after episode of varicose vein bleeding --Chest CTA on admission: Mild burden, subsegmental right sided pulmonary embolism. Severe cardiomegaly, right heart strain and possible CHF, stable. No consolidation or pleural effusion. --Venous Doppler:No evidence of deep venous thrombus within the bilateral lower extremities. --ECHO: Moderate concentric LVH. Flattened septum consistent with RV pressure overload. Apical wall motion abnormality may reflect pacemaker activation. EF 60 to 65%. Right ventricle is moderately dilated. Left atrium severely dilate d. Right atrium is severely dilated. Aortic valve sclerosis moderate, without significant stenosis. Moderate to severe tricuspid regurgitation. Right ventricular systolic pressure is severely elevated > 60 mmHg. Continue on Eliquis 10 mg twice a day for 7 days; plan to switch over to 5 mg twice a day after completion of 7 days. Instruction given to patient's daughter who verbalized understanding. PT OT evaluation was done; patient was initially planned to be discharged home on 08/03/2024. However, family is not able to take care of patient at current level of functioning. [facility] Acute on chronic HFpEF CT, echo as above Volume status seems to be at baseline Monitor I's and O's, daily weight started on oral lasix Fever Patient had a episode of fever of 38.6 C on 08/03/2024 Infectious workup including blood culture, urinalysis, chest ray ordered On empiric antibiotic; will continue empiric antibiotic till cultures and infectious workup is negative. Hypotension Received IV fluids home antihypertensive gradually restarted. Cardizem stopped YISEL on CKD III Received IV fluids Monitor renal function Avoid nephrotoxic agents as able Valvular heart disease SSS S/P PPM CAD/PVD PSVT Currently off Coumadin due to recent admission for bleeding LE varicosities Continue home medications started on Eliquis Hyperlipidemia on statin, continue Hypothyroidism Continue levothyroxine DM II Hold p.o. meds Last HbA1c 6.5 Continue insulin while hospitalized Chronic anemia Hb at baseline monitor DVT px eliquis Code Status DNR/DNI Time spent evaluating patient, direct bedside care, chart review, placing orders, interpretation of diagnostic studies, discussion with consultants, patient, and family members, as well as other required patient management activities is 50 minutes Please note the above document was generated using voice recognition software. It may contain grammatical, syntax or spelling errors. Any formal questions or concerns about the content, text or information contained within the body of this dictation should be directly addressed to the provider for clarification Admission and Anticipated Discharge Date Admission Date: July 30, 2024 Subjective Patient seen and examined at bedside. She is Sleepy but awake able with voice No significant events overnight Review of Systems Review of Systems: All systems reviewed & are unremarkable except as noted in Subjective Results & Data Results & Data Vital Signs (Past 12 Hours) Vital Signs Temp Pulse Pulse Resp BP Pulse Ox Pulse Ox 08/04/24 10:21 92 08/04/24 09:30 08/04/24 07:45 36.9 C 71 18 121/73 92 08/04/24 07:04 85 08/04/24 00:00 36.9 C 79 16 112/66 93 08/03/24 23:40 69 O2 Del Method O2 Del Method 08/04/24 10:21 Room Air 08/04/24 09:30 Room Air 08/04/24 07:45 Room Air 08/04/24 07:04 08/04/24 00:00 Room Air 08/03/24 23:40
--- NOTE | 2024-08-04 13:15 | XRay Report ---
SINGLE VIEW CHEST CLINICAL HISTORY: Dyspnea. FINDINGS: An AP, portable, upright chest radiograph is compared to chest x-ray and chest CT dated . The examination is degraded by portable technique and patient rotation. A single lead cardia c pacemaker is unchanged in position. The heart is enlarged noting atherosclerotic calcification of t he thoracic aorta. There is pulmonary vascular congestion. Chronic interstitial thickening is similar to previous. There is bibasilar scarring/atelectasis. No airspace consolidation or large pleural eff usion is identified. No pneumothorax is seen. The skeletal structures are osteopenic. The bony thorax is grossly intact. Advanced arthritic change is seen in the shoulders. IMPRESSION: 1. Cardiomegaly and cardiac pacemaker with mild pulmonary vascular congestion. 2. No airspace consolidation or large pleural effusion is identified. ACT 112: Negative or not required by law. Electronically signed by: Gustavo Schultz M.D. 08/04/2024 1:14 PM
[2024-08-05] MEDS: FUROSEMIDE 40 MG/4 ML VIAL IV ONE (09:13)
--- NOTE | 2024-08-05 12:34 | Hospitalist Progress Note ---
Date of Service August 05, 2024 Assessment & Plan (1) SOB (shortness of breath): Plan: Acute pulmonary emboli Chronic underlying pulmonary hypertension Patient presented to the hospital with shortness of breath. She previously was on Coumadin for A-fib which was discontinued after episode of varicose vein bleeding --Chest CTA on admission: Mild burden, subsegmental right sided pulmonary embolism. Severe cardiomegaly, right heart strain and possible CHF, stable. No consolidation or pleural effusion. --Venous Doppler:No evidence of deep venous thrombus within the bilateral lower extremities. --ECHO: Moderate concentric LVH. Flattened septum consistent with RV pressure overload. Apical wall motion abnormality may reflect pacemaker activation. EF 60 to 65%. Right ventricle is moderately dilated. Left atrium severely dilate d. Right atrium is severely dilated. Aortic valve sclerosis moderate, without significant stenosis. Moderate to severe tricuspid regurgitation. Right ventricular systolic pressure is severely elevated > 60 mmHg. Continue on Eliquis 10 mg twice a day for 7 days; plan to switch over to 5 mg twice a day after completion of 7 days. Instruction given to patient's daughter who verbalized understanding. PT OT evaluation was done; patient was initially planned to be discharged home on 08/03/2024. However, family is not able to take care of patient at current level of functioning. [facility] Acute on chronic HFpEF CT, echo as above Volume status seems to be at baseline Monitor I's and O's, daily weight Chest x-ray on 08/04 shows pulmonary vascular congestion Restarted on IV Lasix Fever Patient had a episode of fever of 38.6 C on 08/03/2024 Infectious workup including urinalysis, chest x-ray and blood cultures negative so far. On empiric antibiotic; will discontinue antibiotics is infectious work up is negative Hypotension Received IV fluids home antihypertensive gradually restarted. Cardizem stopped YISEL on CKD III Received IV fluids Monitor renal function Avoid nephrotoxic agents as able Valvular heart disease SSS S/P PPM CAD/PVD PSVT Currently off Coumadin due to recent admission for bleeding LE varicosities Continue home medications started on Eliquis Hyperlipidemia on statin, continue Hypothyroidism Continue levothyroxine DM II Hold p.o. meds Last HbA1c 6.5 Continue insulin while hospitalized Chronic anemia Hb at baseline monitor DVT px eliquis Code Status DNR/DNI Update patient's daughter at bedside Time spent evaluating patient, direct bedside care, chart review, placing orders, interpretation of diagnostic studies, discussion with consultants, patient, and family members, as well as other required patient management activities is 50 minutes Please note the above document was generated using voice recognition software. It may contain grammatical, syntax or spelling errors. Any formal questions or concerns about the content, text or information contained within the body of this dictation should be directly addressed to the provider for clarification Admission and Anticipated Discharge Date Admission Date: July 30, 2024 Subjective Patient seen and examined at bedside She is awake and alert oriented x 3 Not in distress No significant events overnight Review of Systems Review of Systems: All systems reviewed & are unremarkable except as noted in Subjective Physical Exam Physical Exam: Constitutional: Alert oriented x 3; not in distress. Respiratory: normal respiratory effort, lungs clear to auscultation, no wheeze, rales, rhonchi. Normal insp/exp effort, no accessory muscle use Cardiovascular: RRR, no murmur, no edema Vessels: no JVD or carotid bruit Chest: normal inspection of chest Abdomen: normal bowel sounds, soft, nontender, no hepatosplenomegaly Musculoskeletal: no cyanosis or clubbing, extremities motor strength 5/5 Skin: no rashes, warm and dry normal turgor Neurologic: PERRL, EOMI, accommodation nl, no face palsy, no dysarthria CN's II- XI intact bilaterally and moves all extremities Psychiatric: A+Ox3, euthymic affect Results & Data Results & Data Vital Signs (Past 12 Hours) Vital Signs Temp Pulse Pulse Resp BP Pulse Ox O2 Del Method 08/05/24 12:18 Room Air 08/05/24 12:17 36.8 C 84 16 112/73 96 Room Air 08/05/24 07:49 36.7 C 74 18 110/66 92 Room Air 08/05/24 07:36 86 08/05/24 03:09 38.6 C H 77 17 129/70 92 Room Air
[2024-08-06 04:29] VITALS: O2SAT 94
[2024-08-06 08:21] VITALS: RESP 18; TEMP 99
--- NOTE | 2024-08-06 12:09 | Discharge Summary ---
Date of Service August 06, 2024 Admission HPI Per Admitting Provider History obtained from patient, family, and records. Medical history significant for chronic diastolic heart failure (EF of 55-60%, TTE 2021 ), valvular heart disease (moderate MR, mild TR),SSS status post PPM currently off Coumadin, CAD as per records, PVD, PSVT, hypertension, hyperlipidemia, DAIN on CPAP, pulmonary hypertension, hypothyroidism, DM2 on oral meds, CRI (baseline creatinine 1.3-1.4), chronic anemia (baseline hemoglobin of 8), varicose veins. Recent confinement July 19 to 2023 for anemia secondary to bleeding varicose vein. Bleeding controlled with local measures. Outpatient vascular surgery consultation contemplated. Hospital course complicated by delirium and worsening confusion post Zyprexa administration. Patient Coumadin held on discharge to rehab facility. Patient to discuss risks/benefits of resumption with PCP on follow-up as per discharge note. Hemoglobin 8 at time of discharge. Confusion during [facility] confinement. Patient given Seroquel and was sleeping for days as per daughter. Patient not feeling well since returning home last week. Blood pressure noted to be low. SBP at PCP's office 4 days ago was 90s. Patient encouraged to increase fluids. Outpatient cardiology provider recommended giving one half of low-dose Imdur followed by small reduction in diltiazem if with persistent hypotension. Patient noted to be more short of breath today. No cough symptoms. Achy left-sided chest pain without radiation. Usual leg swelling as per patient. O2 sats noted to be 70s at home. Patient given aspirin and nitroglycerin at home. SBP noted to be 80s. NSS bolus administered. Patient brought to ER for evaluation. Admission Exam Per Admitting Provider GENERAL: Ill-appearing, slightly hard of hearing, no respiratory distress SKIN: Pallor, warm HEENT: Pale palpebral conjunctivae, patch over left eye, dry buccal mucosa, nasal cannula in place NECK : Supple, no tenderness CHEST : Decreased breath sounds , no tenderness HEART : RRR, systolic murmur ABDOMEN: Some distention, nontender EXTREMITIES : Minimal bilateral LE swelling with venous varicosities, no other conspicuous deformities noted NEUROLOGIC : Oriented today, no facial asymmetry, slightly hard of hearing, gait and stance not assessed Principal Diagnosis Acute pulmonary embolism Acute on chronic HFpEF Discharge Exam Constitutional: Alert oriented x 3; not in distress. Respiratory: normal respiratory effort, lungs clear to auscultation, no wheeze, rales, rhonchi. Normal insp/exp effort, no accessory muscle use Cardiovascular: RRR, no murmur, no edema Vessels: no JVD or carotid bruit Chest: normal inspection of chest Abdomen: normal bowel sounds, soft, nontender, no hepatosplenomegaly Musculoskeletal: no cyanosis or clubbing, extremities motor strength 5/5 Skin: no rashes, warm and dry normal turgor Neurologic: PERRL, EOMI, accommodation nl, no face palsy, no dysarthria CN's II- XI intact bilaterally and moves all extremities Psychiatric: A+Ox3, euthymic affect Discharge Data Allergies Allergy/AdvReac Type Severity Reaction Status Date / Time Penicillins Allergy Intermediate RASH Verified 07/17/24 14:58 quetiapine [From Seroquel] AdvReac Intermediate sedation Verified 07/30/24 21:07 olanzapine [From Zyprexa] AdvReac Mild Confusion Verified 07/31/24 04:19 glipizide AdvReac dizziness/c Verified 07/17/24 14:58 onfusion Consultations 07/30/24 19:28 ED Decision to Admit Stat 07/30/24 21:14 Consult Cardiology Routine 07/31/24 04:32 Consult Pulmonology Routine Ordered Studies 07/30/24 17:37 CT for pulmonary embolism PE [CT angio chest PE protocol] Stat 07/31/24 08:00 US venous doppler LE Routine Hospital Course (1) SOB (shortness of breath): Acute pulmonary emboli Chronic underlying pulmonary hypertension Patient presented to the hospital with shortness of breath. She previously was on Coumadin for A-fib which was discontinued after episode of varicose vein bleeding --Chest CTA on admission: Mild burden, subsegmental right sided pulmonary embolism. Severe cardiomegaly, right heart strain and possible CHF, stable. No consolidation or pleural effusion. --Venous Doppler:No evidence of deep venous thrombus within the bilateral lower extremities. --ECHO: Moderate concentric LVH. Flattened septum consistent with RV pressure overload. Apical wall motion abnormality may reflect pacemaker activation. EF 60 to 65%. Right ventricle is moderately dilated. Left atrium severely dilated. Right atrium is severely dilated. Aortic valve sclerosis moderate, w ithout significant stenosis. Moderate to severe tricuspid regurgitation. Right ventricular systolic pressure is severely elevated > 60 mmHg. Continue on Eliquis 10 mg twice a day for 7 days; plan to switch over to 5 mg twice a day after completion of 7 days. PT OT evaluation was done; patient was initially planned to be discharged home on 08/03/2024. However, family is not able to take care of patient at current level of functioning. Patient discharged to [facility] Acute on chronic HFpEF CT, echo as above Volume status seems to be at baseline Monitor I's and O's, daily weight Chest x-ray on 08/04 shows pulmonary vascular congestion Treated with IV Lasix Discharged on p.o. Lasix twice daily Fever Patient had a episode of fever of 38.6 C on 08/03/2024 Infectious workup including urinalysis, chest x-ray and blood cultures negative Fever likely from PE Please note the above document was generated using voice recognition software. It may contain grammatical, syntax or spelling errors. Any formal questions or concerns about the content, text or information contained within the body of this dictation should be directly addressed to the provider for clarification Total Time Total Time Spent Total Time Spent (In Minutes): 45 Total Time Includes: Examination of the Patient, Discharge Planning, Medication Reconciliation, Communication With Other Providers and Other Discharge Plan Discharge Items Patient Disposition: Home - Self-Care Reason For Visit: PE, CHF (PRIVATE RM PER [facility] RE[facility]) Discharge Diagnosis: Acute pulmonary emboli Activity: Resume your previous activity Non-emergency contact: Primary Care Provider Call non-emergency contact if: you have any medication questions and your symptoms worsen Follow-up/Referrals: Chad Phoenix DO [Primary Care Provider] - (Date & Time 08/08/2024 11:00 AM Provider Chad Phoenix DO Department [facility] ) Diet: Regular Addtl Attending Provider Instructions: You were admitted to the hospital with blood clot in your lungs. You are prescribed Eliquis( Blood thinner). Please follow the instructions below: 1)Take Eliquis 10mg ( 2 tablets) twice a day for total of 7 days ( August 08, morning) 2)Take Eliquis 5mg ( 1 tablet) twice a day starting evening of August 08. Cardiology evaluated you during the hospitalization, they recommend following medication adjustments: 1) Take Imdur 30mg once a day 2) Take metoprolol 50mg twice a day 3) Take lasix 40mg bid a day. 4) Stop taking Diltiazem Follow up with PCP. Pending Studies at Discharge: No Stand-Alone Forms: My [facility], Smoking Cessation Medications and DC Order Prescriptions: New metoprolol succinate 50 mg Tablet Extended Release 24 Hr 50 mg PO BID Qty: 60 0RF isosorbide mononitrate 30 mg Tablet Extended Release 24 Hr 30 mg PO QAM Qty: 30 0RF melatonin 3 mg capsule 3 mg PO HS Qty: 30 0RF Eliquis 5 mg tablet See Taper PO BID Qty: 90 0RF Taper: Taper, Blank 10 mg TWICE A DAY for 3 Days 5 mg TWICE A DAY for 30 Days Continued pantoprazole 40 mg Tablet,Delayed Release (Dr/Ec) 40 mg PO QAM Qty: 0 Januvia 50 mg Tablet 50 mg PO QAM Qty: 0 levothyroxine 75 mcg Tablet 75 mcg PO DAILYBB 90 Days Qty: 90 rosuvastatin 20 mg tablet 20 mg PO PM montelukast 10 mg tablet 10 mg PO QAM magnesium oxide 400 mg magnesium Tablet 400 mg PO QAM diclofenac sodium [Voltaren Arthritis Pain] 1 % Gel 4 g EXT Q8H Qty: 0 0RF Changed furosemide 40 mg tablet 40 mg PO BID Qty: 0 0RF Discontinued diltiazem HCl 240 mg Tablet Extended Release 24 Hr 240 mg PO QAM Qty: 0 metoprolol succinate 100 mg Tablet Extended Release 24 Hr 100 mg PO BID Qty: 0 warfarin 5 mg Tablet See Rx Instructions .ROUTE .COMPLEX Hold Instructions: Until told to resume by PCP Rx Instructions: Take 2.5mg on Tuesday mornings and 5mg all other mornings. WAS TOLD TO HOLD ON 07/23 UNTIL INSTRUCTED BY PCP isosorbide mononitrate 30 mg tablet extended release 24 hr 15 mg PO QAM Discharge Orders: Discharge Order (Routine); Ordered 08/06/24 Ordered By: Berlin Espinosa Admission Data Admit Date/Time: 07/30/24 19:59 Attending Provider: Berlin Espinosa Admit Provider: Connor Antonio Primary Care Provider: Chad Phoenix Other Providers: [facility],Home Healthcare; Connor Antonio; Jorge Prince; Troy Arizmendi; Jeremiah Burrows; Amanda Cunningham; Jessica Voss; Radha Lu; Pritesh Velasquez; Jcarlos Martinez; Sanjuana Moore Other Interventions: Discharge Summary Assessment (RN) Last Done: 08/03/24 11:47
[2024-08-06 12:54] VITALS: BP 99/64; PULSE 82
[2024-08-09] MEDS ORDERED: APIXABAN 5 MG TABLET PO SCH (21:00)
== END 2024-08-06 14:05 | disposition home or self-care (01) | DRG 175 ==
LOC: ED 15:51 → SUATTDRO 19:59 → EDINP 19:59 → 2S 07-31 12:29 → 2W 08-03 20:24

== ENCOUNTER 2024-09-14 19:20 | Inpatient (IN) ==
[2024-09-14 20:20] LABS: Appearance Urine Clear (Clear); Bacteria Urine Automated None Seen (None Seen); Bilirubin Urine Negative (Negative); Blood Urine Negative (Negative); Color Urine Yellow; Glucose Urine UA Negative (Negative); Granular Casts Urine Present /lpf (None Prsent); Ketones Urine Negative (Negative); Leukocyte Esterase Urine Negative (Negative); Nitrite Urine Negative (Negative); Protein Urine 1+ (Negative); Specific Gravity Urine 1.011 (1.000-1.030); Urobilinogen Urine Negative (Negative); WBC Urine Automated 0-5 /hpf (0-5)
[2024-09-14 20:30] LABS: Albumin Globulin Ratio 1.9 (0.9-2); Albumin Level 3.9 gm/dl (3.4-5.0); BUN Creatinine Ratio 18.7 (10-20); Bilirubin,Total 0.6 mg/dl (0.2-1.0); Calcium 8.4 mg/dl (8.6-10.3); Creatinine Clr Calc Pharmacy 25.2 ml/min; Globulin 2.1 gm/dl (2.5-4.0); Potassium 3.4 mmol/L (3.5-5.1)
[2024-09-14] MEDS ORDERED: SODIUM CHLORIDE 0.9% 100 ML IV PRN (20:32)
[2024-09-14] MEDS ORDERED: SODIUM CHLORIDE 0.9% 50 ML IV PRN (20:32)
[2024-09-14 20:33] LABS: Hemoglobin 6.7 g/dl (12.0-16.0); Mean Corpuscular Hemoglobin 26.2 pg (25.0-34.0); Mean Corpuscular Hgb Conc 31.9 g/dL (32.0-36.0); Mean Platelet Volume 10.2 fL (9.4-12.4); Platelet Count 247 K/uL (130-400); RDW Coefficient of Variation 15.4 % (11.5-14.5); RDW Standard Deviation 46.4 fL (36.4-46.3); Red Blood Count 2.56 M/uL (4.20-5.40); White Blood Count 4.34 K/ul (4.8-10.8)
[2024-09-14 21:05] LABS: ALC (manual) 0.87 K/uL (1.2-3.4); ANC (manual) 3.21 K/uL (1.4-6.5); Basophils # (manual) 0.09 K/uL (0-0.2); Basophils % (manual) 2 %; Lymphocytes # (manual) 0.87 K/uL (1.2-3.4); Lymphocytes % (manual) 20 %; Monocytes # (manual) 0.17 K/uL (0.11-0.59); Monocytes % (manual) 4 %; Neutrophils # (manual) 3.21 K/uL (1.40-6.50); Neutrophils % (manual) 74 %; Tear Drop Cells 1+
--- NOTE | 2024-09-14 21:58 | Emergency Department Note ---
Impression & Plan Acute blood loss anemia, Chronic anticoagulation ED Provider Note CHIEF COMPLAINT: Bleeding, rectal versus urine HISTORY OF PRESENT ILLNESS: This 89-year-old female patient with past medical history of pulmonary emboli on chronic anticoagulation, pulmonary hypertension, respiratory failure, COPD, chronic kidney disease, diabetes mellitus type 2, AV malformation of the colon, GI bleed, CHF presents to the emergency department with complaints of bleeding in the toilet. Patient states she went to the bathroom, told her daughter that she saw bright red blood in the toilet. The patient unfortunately had flush the toilet. Later she noted bright red blood in her depends. Patient states she is unsure if it is coming from her urine or her rectum. She is not having any significant pain at this time. She is chronically anticoagulated on Eliquis. REVIEW OF SYSTEMS: A review of systems was performed with positives and pertinent negatives listed in the history of present illness. 10 systems were reviewed and are otherwise negative. ALLERGIES: see below MEDICATIONS: see below PMH: see below SOCIAL HISTORY: see below DDx: GI bleed, uterine bleeding, urinary bleeding, kidney stone, anemia, among others. PHYSICAL EXAM: Vital signs reviewed. General: Somewhat pale appearing elderly 89-year-old female, in no significant distress. HEENT: No scleral icterus, PERRLA, neck supple. Atraumatic. Cardiovascular: Regular rate and rhythm, no extra sounds. Pulmonary: Clear to auscultation bilaterally, normal work of breathing. Abdomen: Soft, Obese,nontender, nondistended, positive bowel sounds. Musculoskeletal: Atraumatic, no peripheral edema. Neurologic: Patient awake alert and oriented x 3, speech is clear : Normal external female genitals. Varicosities noted. Blood noted on the perineum, No active bleeding. No obvious bleeding on external exam of the vaginal introitus, urethral meatus is clear. Rectal exam reveals a yellowish stool with no obvious gross blood. Skin: Warm, dry, no rash . Multiple bilateral lower extremity varicosities. EMERGENCY DEPARTMENT COURSE/MDM: This pt was evaluated and appeared to be in no distress. IV access was obtained and lab work was drawn. Pt was placed on the cardiac catheterization technologist. Patient is noted to be in a paced rhythm. Laboratory work reveals a hemoglobin of 6.7. CT imaging of the abdomen pelvis reveals trace ascites and pancreatic head lesion. No obvious source of bleeding. Ultrasound the pelvis reveals no gross abnormality. Source of bleeding may be a varicosity. Patient is typed and crossed for 2 units of PRBCs, 1 ordered to be administered. Given the patient's need for blood, her chronic anticoagulation and unknown source of bleeding, she will be evaluated by the hospitalist service for admission and further management. Patient and her daughter at the bedside were made aware of the plan and agreed. MONITORING: An order for cardiac monitoring was placed and the patient is noted to be in a normal sinus rhythm at 68 beats per minute. RADIOLOGY: CT of the abdomen pelvis per radiology: IMPRESSION: 1. No ureteral stone or obstructive uropathy. 2. Cardiomegaly. 3. Trace ascites. 4. Low-attenuation lesion within the pancreatic head measuring 2.6 x 0.6 cm. 5. Aortobiiliac atherosclerotic calcifications. 6. Mild body wall edema. Ultrasound of the pelvis: IMPRESSION: No grossly evident abnormality. Right ovary is not identified. DISPOSITION:Admission I have personally spent greater than 45 minutes of critical care time in the direct management of this patient. This includes bedside care, interpretation of diagnostic studies, and testing, discussion with consultants, patient, and family members, and other required patient management activities. This 45 minutes is in excess of all separately billable procedures. Past Med/Surg History Problem List (Updated 09/15/24 @ 08:28 by Josselyn Coronado MD) Chronic anticoagulation (Acute) Acute blood loss anemia (Acute) Anemia Pulmonary hypertension Acute hypoxemic respiratory failure Pulmonary emboli (Acute) Non-ST elevation NH (NSTEMI) (Acute) Chest pain (Acute) Chronic anticoagulation (Acute) Respiratory syncytial virus (RSV) (Acute) Acute on chronic respiratory failure (Acute) Right middle lobe pneumonia Chronic diastolic heart failure COPD (chronic obstructive pulmonary disease) CKD (chronic kidney disease), stage III RSV (acute bronchiolitis due to respiratory syncytial virus) DM (diabetes mellitus), type 2 Acute and chronic respiratory failure Dyspnea (Acute) Colon arteriovenous malformation Acute on chronic right heart failure Acute GI bleeding (Acute) Anemia (Acute) Symptomatic anemia (Acute) Acute dyspnea (Acute) Atrial fibrillation (Chronic 04/18/13) Diabetes (Chronic) Shoulder pain, left (Chronic 08/26/14) Hypertensive urgency (Chronic) CHF (congestive heart failure) (Chronic) Asthma (Chronic) Acute bronchitis (Acute) Anticoagulated on Coumadin (Acute) Blood in left ear canal (Acute) CHF exacerbation (Acute) Cellulitis (Acute) Chest pain (Acute) Hypertension (Acute) Supratherapeutic INR (Acute) Medical History Acute blood loss anemia Bleeding from varicose vein Supratherapeutic INR Hyperlipidemia Hypotension, postural Permanent atrial fibrillation Heart failure with preserved ejection fraction (HFpEF, >= 50%) Hypertension Cardiac pacemaker in situ Tachy-pham syndrome Atrial fibrillation Acute on chronic diastolic CHF (congestive heart failure), NYHA class 3 MACARIO (dyspnea on exertion) Acute dyspnea Acute exacerbation of congestive heart failure Acute decompensated heart failure Family History Other Alzheimer disease Breast cancer Social History Smoking Status: Never smoker Second Hand Exposure: No; Do You Dip or Chew Tobacco: No; Hx Alcohol Use: Yes Hx Substance Use: No Preferred Language: Mosotho Communication Ability: Effective 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: No Beliefs That Will Affect Care: None marital status: Current Living Situation: Spouse and Family Current Living Situation Comment: spouse, daughter, son, daughter in law, grandchildren Feels Safe at Home: Yes Safety Concerns: Feels Safe At This Time Assistive Devices: CPAP, Denture - Upper, Denture - Lower, Hearing Aid - Left, Oxygen - Continuous and Walker Allergies Allergies Allergy/AdvReac Type Severity Reaction Status Date / Time Penicillins Allergy Intermediate RASH Verified 09/14/24 19:59 latex Allergy Rash Verified 09/14/24 19:59 quetiapine [From Seroquel] AdvReac Intermediate sedation Verified 09/14/24 19:59 olanzapine [From Zyprexa] AdvReac Mild Confusion Verified 07/31/24 04:19 glipizide AdvReac dizziness/c Verified 09/14/24 19:59 onfusion Home Meds Home Medications Medication Instructions Recorded Confirmed pantoprazole 40 mg tablet,delayed 40 mg PO QAM ##0 12/25/14 09/14/24 release sitagliptin phosphate 50 mg tablet 50 mg PO QAM #0 tabs 02/22/18 09/14/24 (Januvia) levothyroxine 75 mcg tablet 75 mcg PO DAILYBB 90 days #90 tabs 05/25/18 09/14/24 rosuvastatin 20 mg tablet 20 mg PO PM 04/14/19 09/14/24 magnesium oxide 400 mg PO QAM 09/13/23 09/14/24 montelukast 10 mg tablet 10 mg PO QAM 09/13/23 09/14/24 albuterol sulfate 2.5 mg/3 mL 2.5 mg inhalation Q4H PRN 09/14/24 09/14/24 (0.083 %) solution for nebulization Shortness Of Breath Or Wheezing apixaban 5 mg tablet (Eliquis) 5 mg PO AMHS 09/14/24 09/14/24 furosemide 40 mg tablet 40 mg PO AMHS 09/14/24 09/14/24 potassium chloride 20 mEq 20 meq PO QAM 09/14/24 09/14/24 tablet,extended release Previous Rx's Medication Instructions Recorded isosorbide mononitrate 30 mg 30 mg PO QAM #30 tabs 08/03/24 tablet,extended release 24 hr metoprolol succinate 50 mg 50 mg PO BID #60 tabs 08/03/24 tablet,extended release 24 hr melatonin 3 mg capsule 3 mg PO HS #30 caps 08/06/24 Results & Data (ED) Vital Signs Vital Signs - 24 hr 09/14/24 19:20 09/14/24 19:32 09/14/24 20:03 Temperature 36.6 C Temperature Source Temporal Artery Scan Pulse Rate 80 Pulse Rate [Apical] 63 Pulse Rhythm Pulse Rhythm [Apical] Regular Pulse Strength Pulse Strength [Apical] Normal Respiratory Rate 18 18 Respiratory Effort / Characteristics Non-Labored Spontaneous Non-Labored Respiratory Depth Normal Normal Respiratory Pattern Regular Blood Pressure 135/67 Blood Pressure [Left Arm] 115/49 L Blood Pressure Mean 89 Blood Pressure Mean [Left Arm] 71 Blood Pressure Position Blood Pressure Position [Left Arm] Sitting Pulse Oximetry 97 93 93 Oxygen Delivery Method Room Air Room Air Room Air Oxygen Flow Rate Sepsis Recent Fever Within 48 Hours No Sepsis New/Unexplained Change in Mental Status N/A Sepsis Action Taken by Nursing No Action Required 09/14/24 21:53 09/14/24 22:02 09/14/24 22:12 Temperature 36.7 C 36.7 C 36.9 C Temperature Source Oral Oral Oral Pulse Rate 68 68 Pulse Rate [Apical] 66 Pulse Rhythm Regular Regular Pulse Rhythm [Apical] Regular Pulse Strength Normal Normal Pulse Strength [Apical] Normal Respiratory Rate 18 18 18 Respiratory Effort / Characteristics Non-Labored Respiratory Depth Normal Respiratory Pattern Regular Blood Pressure 128/52 L 110/65 Blood Pressure [Left Arm] 124/58 L Blood Pressure Mean 77 80 Blood Pressure Mean [Left Arm] 80 Blood Pressure Position Lying Blood Pressure Position [Left Arm] Sitting Pulse Oximetry 100 99 99 Oxygen Delivery Method Nasal Cannula Oxygen Flow Rate 2 2 2 Sepsis Recent Fever Within 48 Hours Sepsis New/Unexplained Change in Mental Status Sepsis Action Taken by Nursing 09/14/24 22:27 09/14/24 22:57 09/14/24 23:56 Temperature 36.8 C 36.9 C 36.8 C Temperature Source Oral Oral Oral Pulse Rate 70 68 70 Pulse Rate [Apical] Pulse Rhythm Regular Regular Regular Pulse Rhythm [Apical] Pulse Strength Normal Normal Normal Pulse Strength [Apical] Respiratory Rate 18 18 18 Respiratory Effort / Characteristics Respiratory Depth Respiratory Pattern Blood Pressure 142/76 H 160/81 H 144/75 H Blood Pressure [Left Arm] Blood Pressure Mean 98 107 98 Blood Pressure Mean [Left Arm] Blood Pressure Position Sitting Standing Sitting Blood Pressure Position [Left Arm] Pulse Oximetry 98 99 99 Oxygen Delivery Method Oxygen Flow Rate 2 2 2 Sepsis Recent Fever Within 48 Hours Sepsis New/Unexplained Change in Mental Status Sepsis Action Taken by Nursing 09/14/24 23:57 Temperature 36.7 C Temperature Source Oral Pulse Rate 72 Pulse Rate [Apical] Pulse Rhythm Pulse Rhythm [Apical] Pulse Strength Pulse Strength [Apical] Respiratory Rate 18 Respiratory Effort / Characteristics Respiratory Depth Respiratory Pattern Blood Pressure 135/76 Blood Pressure [Left Arm] Blood Pressure Mean 95 Blood Pressure Mean [Left Arm] Blood Pressure Position Sitting Blood Pressure Position [Left Arm] Pulse Oximetry 98 Oxygen Delivery Method Oxygen Flow Rate Sepsis Recent Fever Within 48 Hours Sepsis New/Unexplained Change in Mental Status Sepsis Action Taken by Alf Medications Current Medication List: was personally reviewed by me Laboratory Data Attestation: I reviewed the patient's lab results. 09/15/24 05:38 09/15/24 05:38 Lab Results 09/14/24 09/14/24 Range/Units 19:55 20:42 WBC 4.34 L (4.8-10.8) K/ul RBC 2.56 L (4.20-5.40) M/uL Hgb 6.7 L* (12.0-16.0) g/dl Hct 21.0 L (37.0-47.0) % MCV 82.0 (80.0-100.0) fL MCH 26.2 (25.0-34.0) pg MCHC 31.9 L (32.0-36.0) g/dL RDW Std Deviation 46.4 H (36.4-46.3) fL RDW Coeff of Popeye 15.4 H (11.5-14.5) % Plt Count 247 (130-400) K/uL MPV 10.2 (9.4-12.4) fL Neutrophils % (Manual) 74 % Lymphocytes % (Manual) 20 % Monocytes % (Manual) 4 % Basophils % (Manual) 2 % Neutrophils # (Manual) 3.21 (1.40-6.50) K/uL Total Absolute Neuts 3.21 (1.4-6.5) K/uL Lymphocytes # (Manual) 0.87 L (1.2-3.4) K/uL Total Abs Lymphocytes 0.87 L (1.2-3.4) K/uL Monocytes # (Manual) 0.17 (0.11-0.59) K/uL Basophils # (Manual) 0.09 (0-0.2) K/uL Tear Drop Cells 1+ Sodium 134 L (136-145) mmol/L Potassium 3.4 L (3.5-5.1) mmol/L Chloride 96 L (98-107) mmol/L Carbon Dioxide 31 (21-32) mmol/L Anion Gap 7 (3-11) BUN 26 H (6-23) mg/dl Creatinine 1.39 H (0.6-1.2) mg/dl Est Cr Clr Drug Dosing 25.2 ml/min eGFR 36.27 BUN/Creatinine Ratio 18.7 (10-20) Glucose 115 H (70-99(Fasting)) mg/dl Calcium 8.4 L (8.6-10.3) mg/dl Total Bilirubin 0.6 (0.2-1.0) mg/dl AST 16 (13-39) U/L ALT 8 (7-52) U/L Alkaline Phosphatase 99 (34-104) U/L Total Protein 6.0 (6.0-8.3) gm/dl Albumin 3.9 (3.4-5.0) gm/dl Globulin 2.1 L (2.5-4.0) gm/dl Albumin/Globulin Ratio 1.9 (0.9-2) Lipase 71 (11-82) U/L Urine Color Yellow Urine Appearance Clear (Clear) Urine pH 7.0 (4.5-7.5) Ur Specific [place] 1.011 (1.000-1.030) Urine Protein 1+ H (Negative) Urine Glucose (UA) Negative (Negative) Urine Ketones Negative (Negative) Urine Blood Negative (Negative) Urine Nitrite Negative (Negative) Urine Bilirubin Negative (Negative) Urine Urobilinogen Negative (Negative) Ur Leukocyte Esterase Negative (Negative) Urine WBC (Auto) 0-5 (0-5) /hpf Urine RBC (Auto) 3-5 H (0-2) /hpf U Hyaline Cast (Auto) 11-20 H (0-2) /lpf U Epithel Cells (Auto) 6-10 H (0-2) /hpf Urine Bacteria (Auto) None Seen (None Seen) Granular Casts Present A (None Prsent) /lpf Blood Type AB Positive Antibody Screen NEGATIVE Crossmatch See Detail Administered Medications Furosemide (Furosemide 40 Mg Tab) 40 mg PO BID17 [facility] Stop: 10/15/24 08:59 Last Admin: 09/15/24 08:03 Dose: 40 mg Documented By: GLORY Pantoprazole Sodium (Protonix) 40 mg in 10 mls @ 5 mls/min IV BID [facility]IN Stop: 10/15/24 08:59 Last Admin: 09/15/24 08:05 Dose: 5 mls/min Documented By: GLORY Isosorbide Mononitrate (Isosorbide [place] Extended Rel 30 Mg Tabcr) 30 mg PO QAM [facility] Stop: 10/15/24 08:59 Last Admin: 09/15/24 08:03 Dose: 30 mg Documented By: GLORY Levothyroxine Sodium (Levothyroxine Sodium 75 Mcg Tablet) 75 mcg PO DAILYBB [facility] Stop: 10/15/24 06:29 Last Admin: 09/15/24 06:04 Dose: 75 mcg Documented By: CARLEY Magnesium Oxide (Magnesium Oxide 400 Mg Tab) 400 mg PO QAM [facility] Stop: 10/15/24 08:59 Last Admin: 09/15/24 08:03 Dose: 400 mg Documented By: GLORY Metoprolol Succinate (Metoprolol Succ 50mg Ext Rel Tab) 50 mg PO BID [facility] Stop: 10/15/24 08:59 Last Admin: 09/15/24 08:03 Dose: 50 mg Documented By: GLORY Montelukast Sodium (Montelukast Sodium 10 Mg Tablet) 10 mg PO QAM [facility] Stop: 10/15/24 08:59 Last Admin: 09/15/24 08:03 Dose: 10 mg Documented By: GLORY Potassium Chloride (Potassium Chloride Crtab 20 Meq Tabcr) [facility] [place]: 09/16/24 09:01 Last Admin: 09/15/24 08:08 Dose: 20 meq Documented By: GLORY Discontinued Medications Furosemide (Furosemide 40 Mg/4 Ml Vial) 40 mg IV ONE ONE Stop: 09/15/24 00:28 Last Admin: 09/15/24 00:48 Dose: 40 mg Documented By: MAGALI Pantoprazole Sodium (Protonix) 40 mg in 10 mls @ 5 mls/min IV NOW ONE Stop: 09/15/24 03:31 Last Admin: 09/15/24 03:54 Dose: 5 mls/min Documented By: CARLEY Melatonin (Melatonin 3 Mg Tab) 3 mg PO NOW STA Stop: 09/15/24 00:28 Last Admin: 09/15/24 00:48 Dose: 3 mg Documented By: MAGALI Potassium Chloride (Potassium Chloride 20 Meq/15 Ml Udc) 40 meq PO NOW STA Stop: 09/15/24 00:28 Last Admin: 09/15/24 00:47 Dose: 40 meq Documented By: MAGALI Imaging Data Radiologist's Impression: Chest X-Ray 09/14/24 19:32 Exam(s): XR CXR 1 VIEW EXAM: XR Chest, 1 View CLINICAL HISTORY: Reason for exam: hematuria. TECHNIQUE: Frontal view of the chest. COMPARISON: Chest x-ray 08/04/2024 FINDINGS: Lungs: Pulmonary vascular congestion without overt edema. Pleural space: No pleural effusion. No pneumothorax. Heart: Cardiomegaly. Tubes, lines and devices: Pacemaker lead in the right ventricle. IMPRESSION: No acute findings in the chest. Electronically signed by: Renaldo Stewart MD 09/14/24 23:19 PM Abdomen/Pelvis CT 09/14/24 19:34 Exam(s): CT ABDOMEN + PELVIS Without Contrast EXAM: CT Abdomen and Pelvis Without Intravenous Contrast CLINICAL HISTORY: Reason for exam: hematuria. TECHNIQUE: Axial computed tomography images of the abdomen and pelvis without intravenous contrast. CTDI is 26.3 mGy and DLP is 1133.09 mGy-cm. Automated exposure control was utilized for the study. A dose lowering technique was utilized adhering to the principles of ALARA. COMPARISON: No relevant prior studies available. FINDINGS: Heart: Cardiomegaly. ABDOMEN: Liver: Unremarkable. Gallbladder and bile ducts: Unremarkable. Pancreas: Low-attenuation lesion within the pancreatic head measuring 2.6 x 0.6 cm. Spleen: Unremarkable. Adrenals: Unremarkable. Kidneys and ureters: No ureteral stone or obstructive uropathy. Stomach and bowel: Unremarkable. PELVIS: Appendix: No findings to suggest acute appendicitis. Bladder: Unremarkable. Reproductive: Unremarkable as visualized. ABDOMEN and PELVIS: Intraperitoneal space: Trace ascites. No free air. Bones/joints: Severe degenerative changes in the lumbar spine. Soft tissues: Mild body wall edema. Vasculature: Aortobiiliac atherosclerotic calcifications. Lymph nodes: Unremarkable. IMPRESSION: 1. No ureteral stone or obstructive uropathy. 2. Cardiomegaly. 3. Trace ascites. 4. Low-attenuation lesion within the pancreatic head measuring 2.6 x 0.6 cm. 5. Aortobiiliac atherosclerotic calcifications. 6. Mild body wall edema. Electronically signed by: Renaldo Stewart MD 09/14/24 23:25 PM Pelvis Ultrasound 09/14/24 19:52 Exam(s): US PELVIS EXAM: US Pelvis Transabdominal, Complete CLINICAL HISTORY: Reason for exam: vaginal bleeding. TECHNIQUE: Real-time complete transabdominal pelvic ultrasound with image documentation. COMPARISON: CT abdomen pelvis 09/14/2024 FINDINGS: Uterus/cervix: Uterus 5.9 x 1.9 x 3.1 cm. No suspicious lesion. Endometrial complex is not clearly identified. No myometrial mass. Right ovary: Right ovary is not visualized. Left ovary: Left ovary measures 1.9 x 1.6 x 1 cm. Blood flow present. Free fluid: No free fluid. IMPRESSION: No grossly evident abnormality. Right ovary is not identified. Electronically signed by: Renaldo Stewart MD 09/14/24 23:33 PM Discharge Plan Visit Data Chief Complaint: Hematuria Stated Complaint: HEMATURIA ED Provider: Josselyn Coronado Discharge Problem: Acute blood loss anemia, Chronic anticoagulation Patient Disposition: Admitted As Inpatient Discharge Instructions Interventions: ED Discharge Assessment Last Done: 09/15/24 03:46
--- NOTE | 2024-09-14 23:20 | XRay Report ---
Exam(s): XR CXR 1 VIEW EXAM: XR Chest, 1 View CLINICAL HISTORY: Reason for exam: hematuria. TECHNIQUE: Frontal view of the chest. COMPARISON: Chest x-ray 08/04/2024 FINDINGS: Lungs: Pulmonary vascular congestion without overt edema. Pleural space: No pleural effusion. No pneumothorax. Heart: Cardiomegaly. Tubes, lines and devices: Pacemaker lead in the right ventricle. IMPRESSION: No acute findings in the chest. Electronically signed by: Renaldo Stewart MD 09/14/24 23:19 PM
--- NOTE | 2024-09-14 23:26 | CT Scan Report ---
Exam(s): CT ABDOMEN + PELVIS Without Contrast EXAM: CT Abdomen and Pelvis Without Intravenous Contrast CLINICAL HISTORY: Reason for exam: hematuria. TECHNIQUE: Axial computed tomography images of the abdomen and pelvis without intravenous contrast. CTDI is 26.3 mGy and DLP is 1133.09 mGy-cm. Automated exposure control was utilized for the study. A dose lowering technique was utilized adhering to the principles of ALARA. COMPARISON: No relevant prior studies available. FINDINGS: Heart: Cardiomegaly. ABDOMEN: Liver: Unremarkable. Gallbladder and bile ducts: Unremarkable. Pancreas: Low-attenuation lesion within the pancreatic head measuring 2.6 x 0.6 cm. Spleen: Unremarkable. Adrenals: Unremarkable. Kidneys and ureters: No ureteral stone or obstructive uropathy. Stomach and bowel: Unremarkable. PELVIS: Appendix: No findings to suggest acute appendicitis. Bladder: Unremarkable. Reproductive: Unremarkable as visualized. ABDOMEN and PELVIS: Intraperitoneal space: Trace ascites. No free air. Bones/joints: Severe degenerative changes in the lumbar spine. Soft tissues: Mild body wall edema. Vasculature: Aortobiiliac atherosclerotic calcifications. Lymph nodes: Unremarkable. IMPRESSION: 1. No ureteral stone or obstructive uropathy. 2. Cardiomegaly. 3. Trace ascites. 4. Low-attenuation lesion within the pancreatic head measuring 2.6 x 0.6 cm. 5. Aortobiiliac atherosclerotic calcifications. 6. Mild body wall edema. Electronically signed by: Renaldo Stewart MD 09/14/24 23:25 PM
--- NOTE | 2024-09-14 23:34 | Ultrasound Report ---
Exam(s): US PELVIS EXAM: US Pelvis Transabdominal, Complete CLINICAL HISTORY: Reason for exam: vaginal bleeding. TECHNIQUE: Real-time complete transabdominal pelvic ultrasound with image documentation. COMPARISON: CT abdomen pelvis 09/14/2024 FINDINGS: Uterus/cervix: Uterus 5.9 x 1.9 x 3.1 cm. No suspicious lesion. Endometrial complex is not clearly identified. No myometrial mass. Right ovary: Right ovary is not visualized. Left ovary: Left ovary measures 1.9 x 1.6 x 1 cm. Blood flow present. Free fluid: No free fluid. IMPRESSION: No grossly evident abnormality. Right ovary is not identified. Electronically signed by: Renaldo Stewart MD 09/14/24 23:33 PM
[2024-09-15] MEDS: POTASSIUM CHLORIDE 20 MEQ/15 ML UDC PO STA (00:47)
[2024-09-15] MEDS: MELATONIN 3 MG TAB PO STA (00:48)
[2024-09-15] MEDS: FUROSEMIDE 40 MG/4 ML VIAL IV ONE (00:48)
--- NOTE | 2024-09-15 00:53 | History & Physical Report ---
Date of Service September 15, 2024 Assessment & Plan (1) Anemia: Plan: 89-year-old female with past medical history significant for type 2 diabetes, hyperlipidemia, hypothyroidism, hyperparathyroidism secondary renal disease, obstructive sleep apnea, history of acute respiratory failure with hypoxia, atrial fibrillation, chronic diastolic CHF, right-sided heart failure, pulmonary hypertension, moderate mitral regurgitation, CKD stage III, bilateral sensorineural hearing loss, thrombocytopenia, tachybradycardia syndrome status post pacemaker presents with possible vaginal bleeding and anemia. Patient lives with her daughter. Ambulates with a walker. Patient was on Coumadin in the past but it was stopped secondary to anemia from varicose vein bleeding in July 2024 but then again she got admitted end of July 2024 with acute pulmonary embolism and she was placed on Eliquis and patient was discharged to rehab. After coming from rehab as per daughter she is having issues with swelling in the legs. Today when daughter came back from work she noticed patient is short of breath and gave her nebs and put on oxygen. Patient uses oxygen as needed as per daughter. And then patient told the daughter that she saw bright red blood in the toilet. Later blood was noted in the depends.Family was not sure blood coming from urine or rectum and brought to the ER. In the ER rectal exam was unremarkable. No blood in the urine was noted. Possible vaginal bleeding. Her hemoglobin was 6.7. One unit PRBC ordered in the ER. Patient is somewhat hard of hearing. Daughter in the room. Patient alert and oriented x 3. Denies any headache. No runny nose or sore throat. No cough. No chest pain or shortness of breath. No nausea. No abdominal pain. Currently resting comfortably and hemodynamically stable. Anemia Acute on chronic Presented with a hemoglobin of 6.7 Hemoglobin in 9's seen in July Possible vaginal bleeding Hemoccult was negative in the ER No obvious hematuria CT abdomen pelvis and pelvic ultrasound unremarkable for any bleeding lesion Holding Jacinto Received one unit prbc in ER Follow H&H every 6 hours We will recheck stool for Hemoccult and if positive will consult GI For now will place on IV Protonix 40 mg twice daily HUMAN SERVICES INSTRUCTOR consult in a.m. Close monitoring telemetry Pancreatic head lesion On CAT scan low-attenuation Needs follow-up Chronic diastolic CHF Chronic right-sided heart failure Valvular heart disease Has lower extremity edema Chest x-ray okay Given dose of IV Lasix 40 mg Continue home Lasix 40 mg p.o. twice daily If any concerns will consult cardiology Recent pulmonary embolism Holding Eliquis as above Restart as soon as possible Will consult vascular surgery for possible IVC filter placement Diabetes type 2 Hold home p.o. medications Sliding scale Will monitor Obstructive sleep apnea CPAP nightly Atrial fibrillation Tachybradycardia syndrome status post pacemaker On metoprolol succinate Holding Eliquis as above . Monitor CKD stage III Presented creatinine 1.3 Around baseline Will monitor Hypothyroidism Synthyroid Hypertension Imdur and metoprolol succinate Will monitor History of delirium Will monitor DVT prophylaxis SCDs for now Disposition Telemetry CODE STATUS DNR/DNI as per my discussion with the daughter History of Present Illness Chief Complaint: Anemia Primary Care Provider: Chad Phoenix DO 89-year-old female with past medical history significant for type 2 diabetes, hyperlipidemia, hypothyroidism, hyperparathyroidism secondary renal disease, obstructive sleep apnea, history of acute respiratory failure with hypoxia, atrial fibrillation, chronic diastolic CHF, right-sided heart failure, pulmonary hypertension, moderate mitral regurgitation, CKD stage III, bilateral sensorineural hearing loss, thrombocytopenia, tachybradycardia syndrome status post pacemaker presents with possible vaginal bleeding and anemia. Patient lives with her daughter. Ambulates with a walker. Patient was on Coumadin in the past but it was stopped secondary to anemia from varicose vein bleeding in O ct2023 but then again she got admitted end of July 2024 with acute pulmonary embolism and she was placed on Eliquis and patient was discharged to rehab. After coming from rehab as per daughter she is having issues with swelling in the legs. Today when daughter came back from work she noticed patient is short of breath and gave her nebs and put on oxygen. Patient uses oxygen as needed as per daughter. And then patient told the daughter that she saw bright red blood in the toilet. Later blood was noted in the depends.Family was not sure blood coming from urine or rectum and brought to the ER. In the ER rectal exam was unremarkable. No blood in the urine was noted. Possible vaginal bleeding. Her hemoglobin was 6.7. One unit PRBC ordered in the ER. Patient is somewhat hard of hearing. Daughter in the room. Patient alert and oriented x 3. Denies any headache. No runny nose or sore throat. No cough. No chest pain or shortness of breath. No nausea. No abdominal pain. Currently resting comfortably and hemodynamically stable. Past medical history. As mentioned above Past surgical history. Ablation of cardiac dysrhythmia. Bilateral total knee arthroplasty. Colonoscopy. EGD. EGD with endoscopic ultrasound. Bronchoscopy. Hemilaminectomy cervical/lumbar. Appendectomy. Removal of ovaries/oviducts,right side. Tonsillectomy. Complete removal of mastoid structures. Repair of inguinal hernia. Left side excision of breast mass. Social history. No smoking. Alcohol occasional. No drug use. Family history. Mother had breast cancer. Dementia. Allergies Allergy/AdvReac Type Severity Reaction Status Date / Time Penicillins Allergy Intermediate RASH Verified 09/14/24 19:59 latex Allergy Rash Verified 09/14/24 19:59 quetiapine [From Seroquel] AdvReac Intermediate sedation Verified 09/14/24 19:59 olanzapine [From Zyprexa] AdvReac Mild Confusion Verified 07/31/24 04:19 glipizide AdvReac dizziness/c Verified 09/14/24 19:59 onfusion Home Medications Medication Instructions Recorded Confirmed Type pantoprazole 40 mg tablet,delayed 40 mg PO QAM ##0 12/25/14 09/14/24 History release sitagliptin phosphate 50 mg tablet 50 mg PO QAM #0 tabs 02/22/18 09/14/24 History (Tammy) levothyroxine 75 mcg tablet 75 mcg PO DAILYBB 90 days #90 tabs 05/25/18 09/14/24 History rosuvastatin 20 mg tablet 20 mg PO PM 04/14/19 09/14/24 History magnesium oxide 400 mg PO QAM 09/13/23 09/14/24 History montelukast 10 mg tablet 10 mg PO QAM 09/13/23 09/14/24 History isosorbide mononitrate 30 mg 30 mg PO QAM #30 tabs 08/03/24 09/14/24 Rx tablet,extended release 24 hr metoprolol succinate 50 mg 50 mg PO BID #60 tabs 08/03/24 09/14/24 Rx tablet,extended release 24 hr melatonin 3 mg capsule 3 mg PO HS #30 caps 08/06/24 09/14/24 Rx albuterol sulfate 2.5 mg/3 mL 2.5 mg inhalation Q4H PRN 09/14/24 09/14/24 History (0.083 %) solution for nebulization Shortness Of Breath Or Wheezing apixaban 5 mg tablet (Eliquis) 5 mg PO AMHS 09/14/24 09/14/24 History furosemide 40 mg tablet 40 mg PO AMHS 09/14/24 09/14/24 History potassium chloride 20 mEq 20 meq PO QAM 09/14/24 09/14/24 History tablet,extended release Past Med/Surg History Problem List (Updated 09/15/24 @ 08:28 by Josselyn Coronado MD) Chronic anticoagulation (Acute) Acute blood loss anemia (Acute) Anemia Pulmonary hypertension Acute hypoxemic respiratory failure Pulmonary emboli (Acute) Non-ST elevation [place] (NSTEMI) (Acute) Chest pain (Acute) Chronic anticoagulation (Acute) Respiratory syncytial virus (RSV) (Acute) Acute on chronic respiratory failure (Acute) Right middle lobe pneumonia Chronic diastolic heart failure COPD (chronic obstructive pulmonary disease) CKD (chronic kidney disease), stage III RSV (acute bronchiolitis due to respiratory syncytial virus) DM (diabetes mellitus), type 2 Acute and chronic respiratory failure Dyspnea (Acute) Colon arteriovenous malformation Acute on chronic right heart failure Acute GI bleeding (Acute) Anemia (Acute) Symptomatic anemia (Acute) Acute dyspnea (Acute) Atrial fibrillation (Chronic 04/18/13) Diabetes (Chronic) Shoulder pain, left (Chronic 08/26/14) Hypertensive urgency (Chronic) CHF (congestive heart failure) (Chronic) Asthma (Chronic) Acute bronchitis (Acute) Anticoagulated on Coumadin (Acute) Blood in left ear canal (Acute) CHF exacerbation (Acute) Cellulitis (Acute) Chest pain (Acute) Hypertension (Acute) Supratherapeutic INR (Acute) Medical History Acute blood loss anemia Bleeding from varicose vein Supratherapeutic INR Hyperlipidemia Hypotension, postural Permanent atrial fibrillation Heart failure with preserved ejection fraction (HFpEF, >= 50%) Hypertension Cardiac pacemaker in situ Tachy-pham syndrome Atrial fibrillation Acute on chronic diastolic CHF (congestive heart failure), NYHA class 3 MACARIO (dyspnea on exertion) Acute dyspnea Acute exacerbation of congestive heart failure Acute decompensated heart failure Family History Other Alzheimer disease Breast cancer Social History Smoking Status: Never smoker Second Hand Exposure: No; Do You Dip or Chew Tobacco: No; Hx Alcohol Use: Yes Hx Substance Use: No Preferred Language: Panamanian Communication Ability: Effective Security Specialist Required: No Beliefs That Will Affect Care: None marital status: Current Living Situation: Spouse and Family Current Living Situation Comment: spouse, daughter, son, daughter in law, g randchildren Feels Safe at Home: Yes Safety Concerns: Feels Safe At This Time Assistive Devices: CPAP, Denture - Upper, Denture - Lower, Hearing Aid - Left, Oxygen - Continuous and Walker Review of Systems Review of Systems: All systems reviewed & are unremarkable except as noted in HPI & below Physical Exam Physical Exam: General- Not in acute distress Head- atraumatic Eyes- PERRL. ENT- oropharynx dry Neck- supple, no JVD. Lungs- clear to auscultation no wheezing or crackles Heart- regular rhythm; no murmur, no gallop. Abdomen- normal bowel sounds, soft, nontender, no distension Extremities: B/L lower extremity edema present, no erythema seen Neuro- alert, oriented x 3; PERRL, no facial palsy; no dysarthria; moves extremities Results & Data Results & Data Vital Signs (Past 12 Hours) Vital Signs Temp Pulse Pulse Resp BP BP Pulse Ox 09/14/24 23:57 36.7 C 72 18 135/76 98 09/14/24 23:56 36.8 C 70 18 144/75 H 99 09/14/24 22:57 36.9 C 68 18 160/81 H 99 09/14/24 22:27 36.8 C 70 18 142/76 H 98 09/14/24 22:12 36.9 C 68 18 110/65 99 09/14/24 22:02 36.7 C 66 18 124/58 L 99 09/14/24 21:53 36.7 C 68 18 128/52 L 100 09/14/24 20:03 63 18 115/49 L 93 09/14/24 19:32 93 09/14/24 19:20 36.6 C 80 18 135/67 97 O2 Del Method O2 Flow Rate 09/14/24 23:57 09/14/24 23:56 2 09/14/24 22:57 2 09/14/24 22:27 2 09/14/24 22:12 2 09/14/24 22:02 Nasal Cannula 2 09/14/24 21:53 2 09/14/24 20:03 Room Air 09/14/24 19:32 Room Air 09/14/24 19:20 Room Air Diagnostic Findings Laboratory Results WBC 4.34 K/ul (4.8-10.8) L 09/14/24 19:55 RBC 2.56 M/uL (4.20-5.40) L 09/14/24 19:55 Hgb 6.7 g/dl (12.0-16.0) L* 09/14/24 19:55 Hct 21.0 % (37.0-47.0) L 09/14/24 19:55 MCV 82.0 fL (80.0-100.0) 09/14/24 19:55 MCH 26.2 pg (25.0-34.0) 09/14/24 19:55 MCHC 31.9 g/dL (32.0-36.0) L 09/14/24 19:55 RDW Std Deviation 46.4 fL (36.4-46.3) H 09/14/24 19:55 RDW Coeff of Popeye 15.4 % (11.5-14.5) H 09/14/24 19:55 Plt Count 247 K/uL (130-400) 09/14/24 19:55 MPV 10.2 fL (9.4-12.4) 09/14/24 19:55 Neutrophils % (Manual) 74 % 09/14/24 19:55 Lymphocytes % (Manual) 20 % 09/14/24 19:55 Monocytes % (Manual) 4 % 09/14/24 19:55 Basophils % (Manual) 2 % 09/14/24 19:55 Neutrophils # (Manual) 3.21 K/uL (1.40-6.50) 09/14/24 19:55 Total Absolute Neuts 3.21 K/uL (1.4-6.5) 09/14/24 19:55 Lymphocytes # (Manual) 0.87 K/uL (1.2-3.4) L 09/14/24 19:55 Total Abs Lymphocytes 0.87 K/uL (1.2-3.4) L 09/14/24 19:55 Monocytes # (Manual) 0.17 K/uL (0.11-0.59) 09/14/24 19:55 Basophils # (Manual) 0.09 K/uL (0-0.2) 09/14/24 19:55 Tear Drop Cells 1+ 09/14/24 19:55 Sodium 134 mmol/L (136-145) L 09/14/24 19:55 Potassium 3.4 mmol/L (3.5-5.1) L 09/14/24 19:55 Chloride 96 mmol/L (98-107) L 09/14/24 19:55 Carbon Dioxide 31 mmol/L (21-32) 09/14/24 19:55 Anion Gap 7 (3-11) 09/14/24 19:55 BUN 26 mg/dl (6-23) H 09/14/24 19:55 Creatinine 1.39 mg/dl (0.6-1.2) H 09/14/24 19:55 Est Cr Clr Drug Dosing 25.2 ml/min 09/14/24 19:55 eGFR 36.27 09/14/24 19:55 BUN/Creatinine Ratio 18.7 (10-20) 09/14/24 19:55 Glucose 115 mg/dl (70-99(Fasting)) H 09/14/24 19:55 Calcium 8.4 mg/dl (8.6-10.3) L 09/14/24 19:55 Total Bilirubin 0.6 mg/dl (0.2-1.0) 09/14/24 19:55 AST 16 U/L (13-39) 09/14/24 19:55 ALT 8 U/L (7-52) 09/14/24 19:55 Alkaline Phosphatase 99 U/L (34-104) 09/14/24 19:55 Total Protein 6.0 gm/dl (6.0-8.3) 09/14/24 19:55 Albumin 3.9 gm/dl (3.4-5.0) 09/14/24 19:55 Globulin 2.1 gm/dl (2.5-4.0) L 09/14/24 19:55 Albumin/Globulin Ratio 1.9 (0.9-2) 09/14/24 19:55 Lipase 71 U/L (11-82) 09/14/24 19:55 Urine Color Yellow 09/14/24 19:55 Urine Appearance Clear (Clear) 09/14/24 19:55 Urine pH 7.0 (4.5-7.5) 09/14/24 19:55 Ur Specific [place]illity 1.011 (1.000-1.030) 09/14/24 19:55 Urine Protein 1+ (Negative) H 09/14/24 19:55 Urine Glucose (UA) Negative (Negative) 09/14/24 19:55 Urine Ketones Negative (Negative) 09/14/24 19:55 Urine Blood Negative (Negative) 09/14/24 19:55 Urine Nitrite Negative (Negative) 09/14/24 19:55 Urine Bilirubin Negative (Negative) 09/14/24 19:55 Urine Urobilinogen Negative (Negative) 09/14/24 19:55 Ur Leukocyte Esterase Negative (Negative) 09/14/24 19:55 Urine WBC (Auto) 0-5 /hpf (0-5) 09/14/24 19:55 Urine RBC (Auto) 3-5 /hpf (0-2) H 09/14/24 19:55 U Hyaline Cast (Auto) 11-20 /lpf (0-2) H 09/14/24 19:55 U Epithel Cells (Auto) 6-10 /hpf (0-2) H 09/14/24 19:55 Urine Bacteria (Auto) None Seen (None Seen) 09/14/24 19:55 Granular Casts Present /lpf (None Prsent) A 09/14/24 19:55 Blood Type AB Positive 09/14/24 20:42 Antibody Screen NEGATIVE 09/14/24 20:42 Crossmatch See Detail 09/14/24 20:42 Impressions Chest X-Ray 09/14/24 19:32 Exam(s): XR CXR 1 VIEW EXAM: XR Chest, 1 View CLINICAL HISTORY: Reason for exam: hematuria. TECHNIQUE: Frontal view of the chest. COMPARISON: Chest x-ray 08/04/2024 FINDINGS: Lungs: Pulmonary vascular congestion without overt edema. Pleural space: No pleural effusion. No pneumothorax. Heart: Cardiomegaly. Tubes, lines and devices: Pacemaker lead in the right ventricle. IMPRESSION: No acute findings in the chest. Electronically signed by: Renaldo Stewart MD 09/14/24 23:19 PM Abdomen/Pelvis CT 09/14/24 19:34 Exam(s): CT ABDOMEN + PELVIS Without Contrast EXAM: CT Abdomen and Pelvis Without Intravenous Contrast CLINICAL HISTORY: Reason for exam: hematuria. TECHNIQUE: Axial computed tomography images of the abdomen and pelvis without intravenous contrast. CTDI is 26.3 mGy and DLP is 1133.09 mGy-cm. Automated exposure control was utilized for the study. A dose lowering technique was utilized adhering to the principles of ALARA. COMPARISON: No relevant prior studies available. FINDINGS: Heart: Cardiomegaly. ABDOMEN: Liver: Unremarkable. Gallbladder and bile ducts: Unremarkable. Pancreas: Low-attenuation lesion within the pancreatic head measuring 2.6 x 0.6 cm. Spleen: Unremarkable. Adrenals: Unremarkable. Kidneys and ureters: No ureteral stone or obstructive uropathy. Stomach and bowel: Unremarkable. PELVIS: Appendix: No findings to suggest acute appendicitis. Bladder: Unremarkable. Reproductive: Unremarkable as visualized. ABDOMEN and PELVIS: Intraperitoneal space: Trace ascites. No free air. Bones/joints: Severe degenerative changes in the lumbar spine. Soft tissues: Mild body wall edema. Vasculature: Aortobiiliac atherosclerotic calcifications. Lymph nodes: Unremarkable. IMPRESSION: 1. No ureteral stone or obstructive uropathy. 2. Cardiomegaly. 3. Trace ascites. 4. Low-attenuation lesion within the pancreatic head measuring 2.6 x 0.6 cm. 5. Aortobiiliac atherosclerotic calcifications. 6. Mild body wall edema. Electronically signed by: Renaldo Stewart MD 09/14/24 23:25 PM Pelvis Ultrasound 09/14/24 19:52 Exam(s): US PELVIS EXAM: US Pelvis Transabdominal, Complete CLINICAL HISTORY: Reason for exam: vaginal bleeding. TECHNIQUE: Real-time complete transabdominal pelvic ultrasound with image documentation. COMPARISON: CT abdomen pelvis 09/14/2024 FINDINGS: Uterus/cervix: Uterus 5.9 x 1.9 x 3.1 cm. No suspicious lesion. Endometrial complex is not clearly identified. No myometrial mass. Right ovary: Right ovary is not visualized. Left ovary: Left ovary measures 1.9 x 1.6 x 1 cm. Blood flow present. Free fluid: No free fluid. IMPRESSION: No grossly evident abnormality. Right ovary is not identified. Electronically signed by: Renaldo Stewart MD 09/14/24 23:33 PM Code Status & VTE Plan VTE Prophylaxis Plan VTE Prophylaxis will be ordered: Yes
[2024-09-15] MEDS ORDERED: ALBUTEROL 0.083% NEBU SOLN 3 ML VIAL INH PRN (03:18)
[2024-09-15] MEDS ORDERED: NITROGLYCERIN SL 0.4 MG/TAB TAB SL PRN (03:18)
[2024-09-15] MEDS ORDERED: POLYETHYLENE (MIRALAX) 17 GM PACK PO PRN (03:18)
[2024-09-15] MEDS: PANTOprazole 40 MG/10 ML SYR IV ONE (03:54)
[2024-09-15] MEDS ORDERED: PNEUMOCOCCAL VACCINE (PCV20) 20-VAL CONJ-DIP CRM/PF 0.5 ML SYR IM ONE (04:46)
[2024-09-15 05:58] LABS: Basophils # (auto) 0.02 K/uL (0.00-0.20); Basophils % (auto) 0.5 %; Eosinophils # (auto) 0.03 K/uL (0.00-0.50); Eosinophils % (auto) 0.7 %; Hematocrit (blood only) 22.9 % (37.0-47.0); Hemoglobin 7.4 g/dl (12.0-16.0); Immature Granulocytes # (auto) 0.03 K/uL (0.01-0.20); Immature Granulocytes % (auto) 0.7 %; Lymphocytes % (auto) 13.6 %; Mean Corpuscular Hemoglobin 26.6 pg (25.0-34.0); Mean Corpuscular Hgb Conc 32.3 g/dL (32.0-36.0); Mean Corpuscular Volume 82.4 fL (80.0-100.0); Mean Platelet Volume 10.2 fL (9.4-12.4); Monocytes # (auto) 0.92 K/uL (0.11-0.59); Monocytes % (auto) 20.9 %; Neutrophils % (auto) 63.6 %; Platelet Count 237 K/uL (130-400); RDW Coefficient of Variation 15.3 % (11.5-14.5); RDW Standard Deviation 46.3 fL (36.4-46.3); Red Blood Count 2.78 M/uL (4.20-5.40)
[2024-09-15] MEDS: LEVOTHYROXINE SODIUM 75 MCG TABLET PO SCH (06:04)
[2024-09-15 06:15] LABS: BUN Creatinine Ratio 18.6 (10-20); Calcium 8.5 mg/dl (8.6-10.3); Creatinine Clr Calc Pharmacy 25.8 ml/min; Magnesium 1.9 mg/dl (1.7-2.4); Potassium 3.5 mmol/L (3.5-5.1)
[2024-09-15 06:45] LABS: Ovalocytes 1+; Polychromasia 3+
[2024-09-15 07:06] LABS: Estimated Average Glucose 148 mg/dl; Hemoglobin A1C 6.8 % (4.5-5.6)
[2024-09-15] MEDS: ISOSORBIDE MONO EXTENDED REL 30 MG TABCR PO SCH (08:03)
[2024-09-15] MEDS: MAGNESIUM OXIDE 400 MG TAB PO SCH (08:03)
[2024-09-15] MEDS: METOPROLOL SUCC 50MG EXT REL TAB PO SCH (08:03)
[2024-09-15] MEDS: MONTELUKAST SODIUM 10 MG TABLET PO SCH (08:03)
[2024-09-15] MEDS: FUROSEMIDE 40 MG TAB PO SCH (08:03)
[2024-09-15] MEDS: PANTOprazole 40 MG/10 ML SYR IV SCH (08:05)
[2024-09-15] MEDS: POTASSIUM CHLORIDE CRTAB 20 MEQ TABCR PO SCH (08:08)
--- NOTE | 2024-09-15 08:17 | XRay Report ---
XR chest 1V portable HISTORY: 89 years-old Female chf acute shortness of breath COMPARISON: 09/14/2024 TECHNIQUE: AP view of the chest FINDINGS: Cardiac silhouette is enlarged. Single lead left subclavian pacer. Pulmonary vascular congestion. No pneumothorax, or lobar airspace consolidation. Trace pleural effusions. Bones appear grossly intact. IMPRESSION: 1. Cardiomegaly with unchanged pulmonary vascular congestion. 2. Trace pleural effusions. ACT 112: Negative or not required by law. The above report was generated using voice recognition software. It may contain grammatical, syntax o r spelling errors. Electronically signed by: Ambrocio Shields M.D. 09/15/2024 8:15 AM
[2024-09-15] MEDS ORDERED: PANTOprazole 40 MG TAB PO SCH (09:00)
--- NOTE | 2024-09-15 09:29 | Hospitalist Progress Note ---
Date of Service September 15, 2024 Assessment & Plan (1) Anemia: Plan: 89-year-old female with past medical history significant for type 2 diabetes, hyperlipidemia, hypothyroidism, hyperparathyroidism secondary renal disease, obstructive sleep apnea, history of acute respiratory failure with hypoxia, atrial fibrillation, chronic diastolic CHF, right-sided heart failure, pulmonary hypertension, moderate mitral regurgitation, CKD stage III, bilateral sensorineural hearing loss, thrombocytopenia, tachybradycardia syndrome status post pacemaker presents with possible vaginal bleeding and anemia. Anemia Acute on chronic Possible vaginal bleed Recent history of right subsegmental PE in July Patient presented to the hospital after reported history of bright red blood seen in toilet. Patient unsure whether the bleeding is per rectum or paraspinal Rectal exam in the ED showed brown stool without gross blood. No obvious bleeding on external examination of vaginal introitus. Hemoglobin on admission 6.7; down trended from [address] abdomen pelvis unremarkable for site of bleeding Pelvic ultrasound does not show any gross abnormality s/p 2 packed RBCs transfusion Currently Eliquis is on hold; monitor H&H; transfuse if hemoglobin is less than 7. . Discussed with patient's daughter at bedside regarding further plan. We discussed monitoring the patient for couple of days for recurrence of bleeding. Then, possibly placing patient on Eliquis 2.5 mg twice daily given her recent history of PE. Family wants to avoid IVC filter placement; will discontinue vascular consult for now. ELECTRONICS MAINTENANCE TECHNICIAN consulted in the ED; appreciate recommendation. Pancreatic head lesion On CAT scan low-attenuation Needs follow-up as outpatient Chronic diastolic CHF Chronic right-sided heart failure Valvular heart disease Has lower extremity edema Chest x-ray shows mild pulmonary congestion Continue home Lasix 40 mg p.o. twice daily Diabetes type 2 Hold home p.o. medications Sliding scale Will monitor Obstructive sleep apnea CPAP nightly Atrial fibrillation Tachybradycardia syndrome status post pacemaker On metoprolol succinate Holding Eliquis as above . Monitor CKD stage III Presented creatinine 1.3 Around baseline Will monitor Hypothyroidism Synthyroid Hypertension Imdur and metoprolol succinate Will monitor History of delirium Will monitor DVT prophylaxis SCDs for now Disposition Telemetry CODE STATUS DNR/DNI Time spent evaluating patient, direct bedside care, chart review, placing orders, interpretation of diagnostic studies, discussion with consultants, patie nt, and family members, as well as other required patient management activities is 50 minutes Please note the above document was generated using voice recognition software. It may contain grammatical, syntax or spelling errors. Any formal questions or concerns about the content, text or information contained within the body of this dictation should be directly addressed to the provider for clarification Admission and Anticipated Discharge Date Admission Date: September 15, 2024 Subjective Patient seen and examined at bedside. She is lying on the bed comfortably She is oriented to self. Denies any fever, chills, chest pain, shortness of breath or abdominal pain No significant events overnight Review of Systems Review of Systems: All systems reviewed & are unremarkable except as noted in Subjective Physical Exam Physical Exam: General- Not in acute distress Head- atraumatic Eyes- PERRL. ENT- oropharynx dry Neck- supple, no JVD. Lungs- clear to auscultation no wheezing or crackles Heart- regular rhythm; no murmur, no gallop. Abdomen- normal bowel sounds, soft, nontender, no distension Extremities: B/L lower extremity edema present, no erythema seen Neuro- alert, oriented x 3; PERRL, no facial palsy; no dysarthria; moves extremities Results & Data Results & Data Vital Signs (Past 12 Hours) Vital Signs Temp Pulse Pulse Resp BP BP Pulse Ox 09/15/24 07:55 09/15/24 07:26 36.5 C 70 20 152/76 H 98 09/15/24 03:46 99 09/15/24 03:18 68 09/15/24 03:18 09/15/24 03:18 36.8 C 64 20 154/78 H 98 09/15/24 03:18 36.8 C 64 20 154/78 H 09/15/24 02:00 71 17 142/86 H 98 09/15/24 00:46 36.7 C 68 17 155/77 H 99 09/14/24 23:57 36.7 C 72 18 135/76 98 09/14/24 23:56 36.8 C 70 18 144/75 H 99 09/14/24 22:57 36.9 C 68 18 160/81 H 99 09/14/24 22:27 36.8 C 70 18 142/76 H 98 09/14/24 22:12 36.9 C 68 18 110/65 99 09/14/24 22:02 36.7 C 66 18 124/58 L 99 09/14/24 21:53 36.7 C 68 18 128/52 L 100 O2 Del Method O2 Flow Rate 09/15/24 07:55 Nasal Cannula 2 09/15/24 07:26 Nasal Cannula 2 09/15/24 03:46 Nasal Cannula 2 09/15/24 03:18 09/15/24 03:18 Nasal Cannula 2 09/15/24 03:18 Nasal Cannula 2 09/15/24 03:18 Nasal Cannula 2 09/15/24 02:00 Nasal Cannula 2 09/15/24 00:46 Nasal Cannula 2 09/14/24 23:57 09/14/24 23:56 2 09/14/24 22:57 2 09/14/24 22:27 2 09/14/24 22:12 2 09/14/24 22:02 Nasal Cannula 2 09/14/24 21:53 2
[2024-09-15 11:04] LABS: Hematocrit (blood only) 23.9 % (37.0-47.0); Hemoglobin 7.5 g/dl (12.0-16.0)
--- NOTE | 2024-09-15 14:59 | OB/GYN Consultation ---
Date of Consultation September 15, 2024 Assessment & Plan (1) Post-menopausal: Patient is 89-year-old -0-0-3 postmenopausal female who noted blood in the toilet as well as underwear, one-time, no other symptoms, Normal although limited it is normal to have small uterus and unable to see ovaries due to atrophy of pelvic organs after many years from menopause, My pelvic exam is completely normal expected vulvar, vaginal atrophy, no blood in vagina nor cervix no blood in the urethral opening no blood in anal region I would recommend expectant management for now reevaluate if bleeding recurs, All questions were answered. (2) Blood in underwear: (3) Vulvar atrophy: History of Present Illness Reason for Consultation: Blood in toilet Attending Physician: Berlin Espinosa MD History of Present Illness patient is 89-year-old -0-0-3 postmenopausal female who was admitted by medical team for multiple medical problems, anemia and blood noted on toilet unable to tell it is from urine versus vagina versus rectum. When I entered the room patient had her daughter and niece sitting next to her. Patient has been menopausal over 30 years has not seen PICTURE ENLARGER for about 20 years per her daughter. She has been with same partner for 62 years but has not been sexually active for many years that she cannot remember of. She denies any [employer] problems, denies history of abnormal Pap smears. she saw blood in toilet can thrombo how much and then her daughter noted palm size blood on her underwear. She has not had bleeding since then, And nursing team has not noticed any bleeding since she came to the floor. patient denies pelvic pain, vaginal discharge, itching, irritation. She denies problem with urination nor bowel movements. She denies any history of hemorrhoids. I obtained a consent from patient and her family left the room we performed a pelvic exam see below. Allergies Allergy/AdvReac Type Severity Reaction Status Date / Time Penicillins Allergy Intermediate RASH Verified 09/14/24 19:59 latex Allergy Rash Verified 09/14/24 19:59 quetiapine [From Seroquel] AdvReac Intermediate sedation Verified 09/14/24 19:59 olanzapine [From Zyprexa] AdvReac Mild Confusion Verified 07/31/24 04:19 glipizide AdvReac dizziness/c Verified 09/14/24 19:59 onfusion Home Medications Medication Instructions Recorded Confirmed Type pantoprazole 40 mg tablet,delayed 40 mg PO QAM ##0 12/25/14 09/14/24 History release sitagliptin phosphate 50 mg tablet 50 mg PO QAM #0 tabs 02/22/18 09/14/24 History (Januvia) levothyroxine 75 mcg tablet 75 mcg PO DAILYBB 90 days #90 tabs 05/25/18 09/14/24 History rosuvastatin 20 mg tablet 20 mg PO PM 04/14/19 09/14/24 History magnesium oxide 400 mg PO QAM 09/13/23 09/14/24 History montelukast 10 mg tablet 10 mg PO QAM 09/13/23 09/14/24 History isosorbide mononitrate 30 mg 30 mg PO QAM #30 tabs 08/03/24 09/14/24 Rx tablet,extended release 24 hr metoprolol succinate 50 mg 50 mg PO BID #60 tabs 08/03/24 09/14/24 Rx tablet,extended release 24 hr melatonin 3 mg capsule 3 mg PO HS #30 caps 08/06/24 09/14/24 Rx albuterol sulfate 2.5 mg/3 mL 2.5 mg inhalation Q4H PRN 09/14/24 09/14/24 His tory (0.083 %) solution for nebulization Shortness Of Breath Or Wheezing apixaban 5 mg tablet (Eliquis) 5 mg PO AMHS 09/14/24 09/14/24 History furosemide 40 mg tablet 40 mg PO AMHS 09/14/24 09/14/24 History potassium chloride 20 mEq 20 meq PO QAM 09/14/24 09/14/24 History tablet,extended release Patient History Medical History Acute blood loss anemia Bleeding from varicose vein Supratherapeutic INR Hyperlipidemia Hypotension, postural Permanent atrial fibrillation Heart failure with preserved ejection fraction (HFpEF, >= 50%) Hypertension Cardiac pacemaker in situ Tachy-pham syndrome Atrial fibrillation Acute on chronic diastolic CHF (congestive heart failure), NYHA class 3 MACARIO (dyspnea on exertion) Acute dyspnea Acute exacerbation of congestive heart failure Acute decompensated heart failure Family History Other Alzheimer disease Breast cancer Social History Smoking Status: Never smoker Second Hand Exposure: No; Do You Dip or Chew Tobacco: No; Hx Alcohol Use: Yes Hx Substance Use: No Preferred Language: Slovak Communication Ability: Effective Foam Gun Operator Required: No Beliefs That Will Affect Care: None marital status: Current Living Situation: Spouse and Family Current Living Situation Comment: spouse, daughter, son, daughter in law, grandchildren Feels Safe at Home: Yes Safety Concerns: Feels Safe At This Time Assistive Devices: CPAP, Denture - Upper, Denture - Lower, Hearing Aid - Left, Oxygen - Continuous and Walker Review of Systems Constitutional: as per Subjective / HPI Physical Exam Constitutional: WD/WN, vitals as above cooperative and comfortable Gastrointestinal (Abdomen): normal bowel sounds, soft, nontender, no hepatosplenomegaly Genitourinary: no vaginal lesions, no adnexal mass normal external appearance ( normal vulvar atrophy, no blood) Speculum/Bimanual Exam: normal appearance of the vagina ( no blood in vagina, normal leukorrhia, white) and normal appearance of the cervix ( no blood on cervix) pelvic ultrasound is normal although limited no blood on the urethra neither on rectal area Results & Data Vital Signs (Past 12 Hours) Vital Signs Temp Pulse Pulse Resp BP Pulse Ox O2 Del Method 09/15/24 11:30 37.1 C 72 20 145/72 H 100 Nasal Cannula 09/15/24 07:55 Nasal Cannula 09/15/24 07:26 36.5 C 70 20 152/76 H 98 Nasal Cannula 09/15/24 03:46 99 Nasal Cannula 09/15/24 03:18 68 09/15/24 03:18 Nasal Cannula 09/15/24 03:18 36.8 C 64 20 154/78 H 98 Nasal Cannula 09/15/24 03:18 36.8 C 64 20 154/78 H Nasal Cannula O2 Flow Rate 09/15/24 11:30 2 09/15/24 07:55 2 09/15/24 07:26 2 09/15/24 03:46 2 09/15/24 03:18 09/15/24 03:18 2 09/15/24 03:18 2 09/15/24 03:18 2 Diagnostic Findings EXAM: US Pelvis Transabdominal, Complete CLINICAL HISTORY: Reason for exam: vaginal bleeding. TECHNIQUE: Real-time complete transabdominal pelvic ultrasound with image documentation. COMPARISON: CT abdomen pelvis 09/14/2024 FINDINGS: Uterus/cervix: Uterus 5.9 x 1.9 x 3.1 cm. No suspicious lesion. Endometrial complex is not clearly identified. No myometrial mass. Right ovary: Right ovary is not visualized. Left ovary: Left ovary measures 1.9 x 1.6 x 1 cm. Blood flow present. Free fluid: No free fluid. IMPRESSION: No grossly evident abnormality. Right ovary is not identified.
[2024-09-15 17:13] LABS: Hematocrit (blood only) 24.5 % (37.0-47.0); Hemoglobin 7.6 g/dl (12.0-16.0)
[2024-09-15] MEDS: ROSUVASTATIN CALCIUM 20 MG TAB PO SCH (20:09)
[2024-09-16] MEDS: MELATONIN 3 MG TAB PO SCH (00:01)
[2024-09-16 07:58] LABS: Basophils # (auto) 0.02 K/uL (0.00-0.20); Basophils % (auto) 0.5 %; Eosinophils # (auto) 0.06 K/uL (0.00-0.50); Eosinophils % (auto) 1.4 %; Hemoglobin 7.8 g/dl (12.0-16.0); Immature Granulocytes # (auto) 0.02 K/uL (0.01-0.20); Immature Granulocytes % (auto) 0.5 %; Lymphocytes # (auto) 1.09 K/uL (1.20-3.40); Lymphocytes % (auto) 25.1 %; Mean Corpuscular Hemoglobin 26.1 pg (25.0-34.0); Mean Corpuscular Hgb Conc 31.2 g/dL (32.0-36.0); Mean Corpuscular Volume 83.6 fL (80.0-100.0); Mean Platelet Volume 10.1 fL (9.4-12.4); Monocytes # (auto) 0.85 K/uL (0.11-0.59); Monocytes % (auto) 19.5 %; Neutrophils # (auto) 2.31 K/uL (1.40-6.50); Platelet Count 230 K/uL (130-400); RDW Coefficient of Variation 15.5 % (11.5-14.5); RDW Standard Deviation 47.1 fL (36.4-46.3); Red Blood Count 2.99 M/uL (4.20-5.40); White Blood Count 4.35 K/ul (4.8-10.8)
[2024-09-16 08:21] LABS: BUN Creatinine Ratio 16.5 (10-20); Calcium 8.5 mg/dl (8.6-10.3); Creatinine Clr Calc Pharmacy 28.8 ml/min; Potassium 3.4 mmol/L (3.5-5.1)
[2024-09-16 08:24] LABS: Hypochromasia Present; Ovalocytes 1+
--- NOTE | 2024-09-16 09:59 | Hospitalist Progress Note ---
Date of Service September 16, 2024 Assessment & Plan (1) Anemia: Plan: 89-year-old female with past medical history significant for type 2 diabetes, hyperlipidemia, hypothyroidism, hyperparathyroidism secondary renal disease, obstructive sleep apnea, history of acute respiratory failure with hypoxia, atrial fibrillation, chronic diastolic CHF, right-sided heart failure, pulmonary hypertension, moderate mitral regurgitation, CKD stage III, bilateral sensorineural hearing loss, thrombocytopenia, tachybradycardia syndrome status post pacemaker presents with possible vaginal bleeding and anemia. Anemia Acute on chronic blood loss anemia Possible vaginal bleed Recent history of right subsegmental PE in July Patient presented to the hospital after reported history of bright red blood seen in toilet. Patient unsure whether the bleeding is per rectum or paraspinal Rectal exam in the ED showed brown stool without gross blood. No obvious bleeding on external examination of vaginal introitus. press set up person evaluated the patient on 09/15/2024. Hemoglobin on admission 6.7; down trended from [address] abdomen pelvis unremarkable for site of bleeding Pelvic ultrasound does not show any gross abnormality s/p 2 packed RBCs transfusion Currently Eliquis is on hold; monitor H&H; transfuse if hemoglobin is less than 7. . Discussed with patient's daughter at bedside regarding further plan. We discussed monitoring the patient for couple of days for recurrence of bleeding. Then, possibly placing patient on Eliquis 2.5 mg twice daily given her recent history of PE. Family wants to avoid IVC filter placement. Plan to start Eliquis 2.5 mg twice a day tomorrow am Pancreatic head lesion On CAT scan low-attenuation Needs follow-up as outpatient Acute on Chronic diastolic CHF Chronic right-sided heart failure Valvular heart disease COPD exacerbation Has lower extremity edema Chest x-ray on admission shows mild pulmonary congestion On IV Lasix 40 mg twice daily Started on budesonide, formoterol nebs scheduled; also on [id number] DuoNeb and IV methylprednisolone. Diabetes type 2 Hold home p.o. medications Sliding scale Will monitor Obstructive sleep apnea CPAP nightly Atrial fibrillation Tachybradycardia syndrome status post pacemaker On metoprolol succinate Holding Eliquis as above . Monitor CKD stage III Presented creatinine 1.3 Around baseline Will monitor Hypothyroidism Synthyroid, continue Hypertension Imdur and metoprolol succinate Will monitor History of delirium Will monitor DVT prophylaxis SCDs for now Disposition Telemetry CODE STATUS DNR/DNI Time spent evaluating patient, direct bedside care, chart review, placing orders, interpretation of diagnostic studies, discussion with consultants, patient, and family members, as well as other required patient management activities is 50 minutes Please note the above document was generated using voice recognition software. It may contain grammatical, syntax or spelling errors. Any formal questions or concerns about the content, text or information contained within the body of this dictation should be directly addressed to the provider for clarification Admission and Anticipated Discharge Date Admission Date: September 15, 2024 Subjective Patient seen and examined at bedside. She is comfortable; not in distress No recurrence of bleeding overnight Vital signs remained stable Review of Systems Review of Systems: All systems reviewed & are unremarkable except as noted in Subjective Physical Exam Physical Exam: General- Not in acute distress Head- atraumatic Eyes- PERRL. ENT- oropharynx dry Neck- supple, no JVD. Lungs- Bilateral basilar crackles present. Occasional wheeze. Heart- regular rhythm; no murmur, no gallop. Abdomen- normal bowel sounds, soft, nontender, no distension Extremities: B/L lower extremity edema present, no erythema seen Neuro- alert, oriented x 3; PERRL, no facial palsy; no dysarthria; moves extremities Results & Data Results & Data Vital Signs (Past 12 Hours) Vital Signs Temp Pulse Resp BP Pulse Ox O2 Del Method O2 Flow Rate 09/16/24 07:18 37.2 C 70 20 162/79 H 93 Nasal Cannula 2.0 09/16/24 02:51 36.4 C L 62 16 116/70 91 CPAP 09/15/24 22:54 36.5 C 71 20 145/77 H 97 Nasal Cannula 2
[2024-09-16] MEDS: ALBUT/IPRATROP 3MG/0.5MG NEB 3 ML VIAL NEB SCH (10:41)
[2024-09-16] MEDS: POTASSIUM CHLORIDE CRTAB 20 MEQ TABCR PO SCH (10:42)
[2024-09-16] MEDS ORDERED: methylPREDNISolone 125 MG/2 ML VIAL IV SCH (11:30)
[2024-09-16] MEDS: FORMOTEROL 20 MCG/2 ML VIAL NEB SCH (11:36)
[2024-09-16] MEDS: BUDESONIDE 0.5 MG/2 ML VIAL (PULMICORT) NEB SCH (11:36)
[2024-09-16] MEDS: SODIUM CHLOR 7% 4 ML NEB NEB SCH (11:37)
[2024-09-16] MEDS: FUROSEMIDE 40 MG/4 ML VIAL IV ONE ×2 (12:34→17:49)
[2024-09-16] MEDS ORDERED: FUROSEMIDE 40 MG/4 ML VIAL IV SCH (14:10)
[2024-09-16] MEDS: NYSTATIN POWDER 15GM BTL EXT SCH (21:01)
[2024-09-16] MEDS: methylPREDNISolone 40 MG in SYRINGE 0 ML IV SCH (21:03)
--- OUTSIDE RECORDS SUMMARY | 2024-09-16 22:34 | External Medical Summary | Summary of Care ---
Author Name Unknown Organization [facility] Address [address] [facility] [place] [address] Phone [phone] Care Team Providers Care Customs Brokerage Agent Name Role Phone Chad Phoenix DO Primary Care Provider [phone] Reason for Visit * Reason Onset Date Comments Home Health 09/03/2024 Encounter Details Date Type Department Care Team (Late st Contact Info) Description 09/03/2024 Telephone Family Practice [facility] [place] [address] [facility] [place] [address] Chad Phoenix DO [address] [facility] [place] [address] Home Health Allergies Active Allergy Reactions Criticality Noted Date Comments Glipizide 02/18/2021 Dizzy, confusion Latex Rash 04/05/2024 Penicillins Rash 10/13/2001 Quetiapine Other (Please comment) 08/17/2024 Severe fatigue documented as of this encounter (statuses as of 09/10/2024) Medications NEBULIZER MISCIndications:Ac vandana bronchitis, complicated use every 8 hrs as directed 1 Units 0 03/19/20 11 Active SPACER/AERO CHAMBER MOUTHPIECE MISCIndications:Sh ortness of breath use with inhalers as instructed 1 Device 2 05/10/20 12 Active ONETOUCH ULTRASOFT LANCETS MISCIndications:DM type 2, goal A1c below 7 Test up to 4 times daily 5 Box Dosing Unit 10 12/18/19 16 Active acetaminophen (TYLENOL) 500 MG Tablet Take 1 Tablet by mouth every 4 hours as needed for Pain. Per [facility] dc summary 06/26/18 Active triamcinolone acetonide (ARISTOCORT) 0.1 % ointmentIndication s:Eczema of right external ear Apply topically to affected area 2 times a day. To affected area on R external ear 60 g 04/06/20 19 Active OneTouch Verio In Vitro Strip (Glucose Blood) test once daily Dx. E11.9 100 Strip 3 05/04/20 21 Active Albuterol Sulfate (2.5 MG/3ML) 0.083% Inhalation Nebulization Solution (Proventil)Indicat ions:COPD, group B, by GOLD 2017 classification ([facility]) Inhale 1 Vial via nebulizer every 4 hours as needed for Wheezing or Shortness of Breath. 90 mL 3 10/20/19 23 Active oxygen IN GAS Increase to 3 LPM bled through CPAP with all sleep. T and B medical 1 Each 12/21/19 23 Active Pantoprazole Sodium 40 MG Oral Tablet Delayed Release (Protonix) TAKE 1 TABLET BY MOUTH ONCE DAILY 90 Tablet 3 10/28/19 24 Active Montelukast Sodium 10 MG Oral Tablet (Singulair) TAKE 1 TABLET BY MOUTH EVERY MORNING 90 Tablet 3 01/26/20 24 Active Januvia 50 MG Oral TabletIndications: Type 2 diabetes mellitus with stage 3 chronic kidney disease, without long-term current use of insulin, unspecified whether stage 3a or 3b CKD ([facility]) Take 1 Tablet by mouth in the morning. In the morning.. 30 Tablet 5 02/01/20 24 Active Furosemide 40 MG Oral Tablet (Lasix)Indications :Heart failure, diastolic, due to HTN ([facility]) TAKE ONE TABLET BY MOUTH IN THE MORNING AND ONE TABLET BEFORE BEDTIME 180 Tablet 1 05/24/20 24 Active Magnesium Oxide 400 MG Oral Tablet Take 1 Tablet by mouth in the morning. 06/05/20 24 Active Isosorbide Mononitrate ER 30 MG Oral Tablet Extended Release 24 Hour (Imdur) Take 0.5 Tablets by mouth in the morning. In the morning.. 45 Tablet 3 06/05/20 24 Active Additional Information Patient taking differently: 30 mgOral Daily(AM), In the morning., Reported on 08/31/2024 Metoprolol Succinate ER 50 MG Oral Tablet Extended Release 24 Hour (toPROL XL) Take 1 Tablet by mouth in the morning and 1 Tablet before bedtime. Active Eliquis 5 MG Oral Tablet Take 1 Tablet by mouth in the morning and 1 Tablet before bedtime. 08/13/20 24 Active OneTouch Verio w/Device KitIndications:Typ e 2 diabetes mellitus with hemoglobin A1c goal of less than 8.0% (HCC) Use up to 4 times a day E11.9 1 Kit 08/17/20 Active OneTouch Verio In Vitro Strip (Glucose Blood)Indications: Type 2 diabetes mellitus with hemoglobin A1c goal of less than 8.0% (HCC) Use up to 4 times a day E11.9 100 Strip 11 08/17/20 24 Active OneTouch UltraSoft LancetsIndications :Type 2 diabetes mellitus with hemoglobin A1c goal of less than 8.0% (HCC) Use up to four times a day as directed E11.9 100 Each 5 08/17/20 24 Active Rosuvastatin Calcium 20 MG Oral Tablet (Crestor) TAKE 1 TABLET BY MOUTH ONCE DAILY 90 Tablet 3 08/20/20 24 Active OneTouch Delica Lancets 30G Use to check blood sugar as needed. 100 Each 5 08/31/20 24 Active Levothyroxine Sodium 75 MCG Oral Tablet (Levoxyl)Indicatio ns:Acquired hypothyroidism TAKE 1 TABLET BY MOUTH EVERY MORNING AT LEAST 30 MINUTES PRIOR TO BREAKFAST OR OTHER MEDICATIONS 90 Tablet 3 09/03/20 Active documented as of this encounter (statuses as of 09/10/2024) Active Problems Problem Noted Date Diagnosed Date Acute respiratory failure with hypoxia 4 Nocturnal hypoxemia 12/08/2022 Permanent atrial fibrillation 11/24/2021 Stage 3b chronic kidney disease 11/24/2021 Chronic right-sided heart failure 11/05/2020 Acute [...] prior echocardi ogram 10/18/2017 long term care administrator 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 therapy 0 10/18/2017 Overview (01/24/2018): ICD-10 update of inactive term Cardiac pacemaker in situ 06/23/2017 Essential hypertension with goal blood pressure less than 140/90 08/02/2016 Type 2 diabetes mellitus wit h diabetic chronic kidney disease 08/16/2015 Heart failure, diastolic, due to HTN 12/30/2014 Type 2 diabetes mellitus wit h hemoglobin A1c goal of less than 8.0% 05/21/2014 Overview (02/05/2016): ICD-10 update of inactive term Atrial fibrillation 03/05/2011 Anticoagulation management encounter 03/05/2011 DYSLIPIDEMIA, GOAL LDL BELOW 100 09/18/2009 Overview (09/18/2009): Per Lipid Taxonomy. documented as of this encounter (statuses as of 09/10/2024) Resolved Problems Problem Noted Date Diagnosed Date Resolved Date CKD (chronic kidney disease) stage 4, GFR 15-29 ml/min 11/24/2021 08/23/2024 Coronary artery disease invo lving [place] heart without angina pectoris 04/18/2019 10/29/2019 COPD, [...] hemoglobin A1c goal of 7.0%-8.0% 03/04/2014 05/21/2014 Overview (02/05/2016): ICD-10 update of inactive term DM type 2 causing CKD stage 3 03/28/2013 08/16/2015 Type 2 diabetes mellitus wit h hemoglobin A1c goal of less than 7.0% 03/28/2013 03/04/2014 Overview (02/03/2016): ICD-10 update of inactive term Type 2 diabetes mellitus wit h hemoglobin A1c goal of 7.0%-8.0% 09/27/2012 03/28/2013 Overview (02/05/2016): ICD-10 update of inactive term Kidney disease, chronic, sta ge III (GFR 30-59 ml/min) 02/28/2012 08/29/2018 Overview (03/02/2012): Per CKD protocol #1 long term care administrator current use of 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 therapy 03/05/2011 02/13/2019 Asthma with severity to be determined 04/02/2010 03/20/2013 Overview (01/19/2016): Per Asthma Taxonomy ICD-10 update of inactive term Asthma, mild persistent 04/02/2010 0702/2017 Overview: PER PROVIDER PROTOCOL. Obesity, morbid (more than 1 00 lbs over ideal weight or BMI > 40) 01/06/2010 08/23/2018 Overview (12/29/2015): Per Obesity Taxonomy ICD-10 update of inactive term HTN, goal below 130/80 11/05/200908/02 Overview (11/05/2009): Per HTN Taxonomy. Type 2 diabetes mellitus wit h hemoglobin A1c goal of less than 7.0% 08/07/2009 09/27/2012 Overview (02/03/2016): Per Diabetes Taxonomy. ICD-10 update of inactive term HTN, goal below 140/90 02/06/200811/05 Overview (11/05/2009): Per HTN Taxonomy. Type 2 diabetes mellitus wit h hemoglobin A1c goal of less than 7.0% 05/09/2006 08/07/2009 Overview (02/03/2016): Per Diabetes Taxonomy. ICD-10 update of inactive term ADVANCE DIRECTIVE INFORMATION 06/17/2005 08/13/2024 Overview (06/17/2005): Yes, Patient instructed to provide copy of advance directive for provider to review and to be scanned into Electronic Medical Record PURE HYPERCHOLESTEROLEM 11/30/200209/09 Overview (09/18/2009): Per Lipid Taxonomy. Paroxysmal SVT (supraventricular tachycardia) 11/30/19 03 02/13/2019 HYPOTHYROIDISM NOS 11/30/2002 6 CARDIOVAS SYS SYMP NEC-carotid bruit 11/30/2002 04/13/2017 OBESITY, UNSPECIFIED 11/30/2002 010 Overview (01/06/2010): Per Obesity Taxonomy Asthma, allergic 04/02/2010 CPAP (continuous positive ai rway pressure) dependence 03/07/2019 Overview (05/21/2014): setting 4 documented as of this encounter (statuses as of 09/10/2024) Immunizations Name Administration Dates Next Due COVID-19 [...] Dos e, Trivalent, PF, IM (Fluzone HD) 08/17/2024,07/01/2017 Seasonal Influenza, PF, 6 M & above, [...] Date Recorded PHQ Adult Total Score 0 08/31/2024 Hunger Vital Sign Answer Date Recorded Within the past 12 months, y ou worried that your food would run out before you got the money to buy more. Never true 08/31/20 24 Within the past 12 months, t he food you bought just didn't last and you didn't have money to get more. Never true 08/31/2024 Childcare Answer Date Recorded Do you feel overwhelmed with taking care of a child, family member or friend? No 08/31/2024 Does your family need help f inding childcare? (Household - for ages 0-17 years) Not on file 08/31/2024 Clothing Answer Date Recorded Have you been unable to get clothing when it was really needed? No 08/31/2024 Is your family able to get c lothes or diapers when needed? (Household - for ages 0-17 years) Not on file 08/31/2024 Personal Safety Answer Date Recorded Do you feel unsafe or have concerns for your saf ety? No 08/31/2024 Do you have concerns for you r family's safety? (Household - for ages 0-17 years) Not on file 08/31/2024 Utilities Answer Date Recorded Do you have trouble paying y our heating, water, or electric bill? No 08/31/2024 Is your family able to pay t he heat, water, or electric bill? (Household - for ages 0-17 years) Not on file 08/31/2024 Does your family have access to good internet? (Household - for ages 0-17 years) Not on file 08/31/2024 Employment Status Answer Date Recorded Are you unemployed or without regular income? No 08/31/2024 Does the household have a re gular source of income? (Household - for ages 0-17 years) Not on file 08/31/2024 Social Connections Answer Date Recorded How often do you feel lonely or isolated from th ose around you? Never 08/31/2024 Financial Resource Strain Answer Date R ecorded Do you have any trouble payi ng for your medications, or do you think you might in the future? No 08/31/2024 Does your family have troubl e paying for medicine? (Household - for ages 0-17 years) Not on file 08/31/2024 Transportation Needs Answer Date Record ed READ ONLY Do you have troubl e getting a ride to medical visits or work? Never True 08/31/2024 Does your family have a hard time getting a ride to doctors visits? (Household - for ages 0-17 years) Not on file 08/31/2024 Has lack of transportation k ept you from medical appointments, meetings, work, or from getting things needed for daily living? Check all that apply. No 08/31/2024 Do you (or your family) have trouble finding or paying for a ride (transportation)? (Household - for ages 0-17 years) Not on file 08/31/2024 Housing Stability Answer Date Recorded Do you currently live in a s helter or have no steady place to sleep at night? No 08/31/2024 READ ONLY Do you think you a re at risk of becoming homeless? No 08/31/2024 Does your family worry about paying for your home or becoming homeless? (Household - for ages 0-17 years) Not on file 1 10/31/2023 Are you homeless or worried that you might be in the future? No 08/31/2024 Are you (or your family) douglas eless or worried that you might be in the future? (Household - for ages 0-17 years) Not on file Food Insecurity Answer Date Recorded Do you need food for this week? No 08/31/2024 Are you able to get enough f ood for your family? (Household - for ages 0-17 years) Not on file 08/31/2024 Does your family need food t his week? (Household - for ages 0-17 years) Not on file 08/31/2024 Do you always have enough fo od for your family? (Household - for ages 0-17 years) Not on file 08/31/2024 Comments No Sex and Gender Information Value Date Recorded Sex Assigned at Female 02/14/2023 2:15 PM EDT Legal Sex Female 5:59 AM EST Gender Identity Female 02/14/2023 2:15 PM EDT Sexual Orientation Straight 02/14/2023 2: 15 PM EDT Occupation Industry Job Start Date Job End Date retired Not on file Not on file Not on file documented as of this encounter Miscellaneous Notes * Telephone Encounter - Grisel Adams LPN - 09/10/2024 9:30 AM EST See other TE from 09/03 * Telephone Encounter - Chad Phoenix DO - 09/03/2024 4:35 PM EST Twice per day when fasting is fine for now * Telephone Encounter - Page Lee LPN - 09/03/2024 11:00 AM EST Pritesh calling from OT, [facility]. Patient got a new glucometer. It says to test up to 4 times a day. How many times a day is the patient supposed to test? Please advise. Please call the daughter Grace back and let her know @ [phone] documented in this encounter Plan of Treatment Upcoming Encounters Date Type Department Care Team (Late st Contact Info) Description 09/18/2024 1:40 PM EST Office Visit Podiatry [facility] [address] [facility] [place] [address] Bryanna Guzman DPM [address] [place] [address] 10/15/2024 3:00 PM EST Office Visit Cardiology, [facility] [address] [facility] [place] [address] Yeni Laureano CRNP [address] [facility] [place] [address] 01/02/2025 3:00 PM EDT Office Visit Family Practice [facility] [address] [place] [address] Chad Phoenix, DO 200 [place] [address] 04/30/2025 3:00 PM EDT Office Visit Pulmonary Medicine, [facility] [address] [facility] [place] [address] Krunal Sherwood MD [address] [place] [address] Health Maintenance Due Date Last Done Comments Adult Wellness Visit 04/15/2022 04/15/2021 Diabetic Eye Exam 06/06/2024 06/06/2023, , 12/06/2022, Additional history exists COVID-19 Vaccine ( season) 2024 09/23/2021, 12/09/2020, 11/11/2020 Zoster Vaccines (2 of 2) 07/31/2024 06/05/2024 DTap/Tdap Vaccines (2 - Td or Tdap) 09/02/2024 09/02/2014 HbA1c 11/04/2024 05/04/2024, 01/0 11/2023, 04/05/2023, Additional history exists Albumin/Creatinine Ratio 05/04/2025 024, 10/26/2022, 12/08/2021, Additional history exists CKD PHOS USE SMARTSET 92726 05/04/202504/10, 10/20/2022, 12/08/2021, Additional history exists Diabetic Foot Exam 06/05/2025 06/05/2024, 0 10/26/2022, 11/24/2021, Additional history exists TSH 07/24/2025 07/24/2024, 04/10, 04/05/2023, Additional history exists CKD HGB USE SMARTSET 67434 08/17/202508/17, 08/11/2024, 08/10/2024, Additional history exists Depression Screening 08/31/2025 08/31/2024 Pneumococcal Vaccine: 65+ Years Completed 12/17/2015, 02/16/2010 Influenza Vaccine (FLU shot) Completed 05/2024, 09/16/2023, 07/25/2023, Additional history exists HPV (Gardasil) Vaccine Aged Out No lo [...] Care Agent (per Health Care Power of Sweet Potato Disintegrator document) GRACE UribeKHADRA Adult Child Second Alternate Health Care Agent (per Health Care Power of Sweet Potato Disintegrator document) Care Teams Customs Brokerage Agent Relationship Specialty Start Date End Date Chad Phoenix DO [address] [place] [address] PCP - General Family Medicine 06/02/18 documented as of this encounter
--- OUTSIDE RECORDS SUMMARY | 2024-09-16 22:34 | External Medical Summary | Summary of Care ---
Author Name Unknown Organization [facility] Address [address] [place] [address] Phone [phone] Care Team Providers Care Die Try Out Worker Name Role Phone LizettChad Jorge Luis GAMEZ Primary Care Provider [phone] Encounter Details Date Type Department Care Team (Late st Contact Info) Description 09/11/2024 9:00 AM EST Scheduled Telephone Care Coordination and Integration [address], [place] [id number] Darcie Galaviz [facility] Health Distribution Associate [address], [place] [id number] Allergies Active Allergy Reactions Criticality Noted Date Comments Glipizide 02/18/2021 Dizzy, confusion Latex Rash 04/05/2024 Penicillins Rash 10/13/2001 Quetiapine Other (Please comment) 08/17/2024 Severe fatigue documented as of this encounter (statuses as of 09/11/2024) Medications NEBULIZER MISCIndications:Ac ute mountain bronchitis, complicated use every 8 hrs as [...] B, by GOLD 2017 classification ([facility]) Inhale 1 Vial via nebulizer [...] stage 3a or 3b CKD ([facility]) Take 1 Tablet by mouth in the morning. In the morning.. 30 Tablet 5 02/01/20 24 Active Furosemide 40 MG Oral Tablet (Lasix)Indications :Heart failure, diastolic, due to HTN ([facility]) TAKE ONE TABLET BY MOUTH [...] times a day E11.9 1 Kit 08/17/20 24 Active OneTouch Verio In Vitro Strip (Glucose [...] OR OTHER MEDICATIONS 90 Tablet 3 09/03/20 24 Active Dexcom G7 Sensor Use as directed every 10 days. Check blood sugar regularly E11.9 3 Each 5 09/05/20 24 Active Dexcom G7 Batch Still Operator Device Use as directed. Check blood sugar regularly E11.9 1 Each 09/05/20 24 Active documented as of this encounter (statuses as of 09/11/2024) Active Problems Problem Noted Date Diagnosed Date [...] mitral regurgitation by prior echocardi ogram 10/18/2017 health teacher 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 therapy 0 10/18/2017 [...] as of this encounter (statuses as of 09/11/2024) Resolved Problems Problem Noted Date Diagnosed Date Resolved Date CKD (chronic kidney disease) stage 4, GFR 15-29 ml/min 11/24/2021 08/23/2024 Coronary artery disease invo lving [place] heart without angina pectoris 04/18/2019 10/29/2019 COPD, [...] 08/29/2018 Overview (03/02/2012): Per CKD protocol #1 USP current use of 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 therapy 03/05/2011 [...] as of this encounter (statuses as of 09/11/2024) Immunizations Name Administration Dates Next Due COVID-19 [...] as of this encounter Progress Notes * Darcie Galaviz, Community Health Distribution Associate - 09/11/2024 10:03 AM EST Telemedicine visit: No Community [facility] Distribution Associate (DAVY) documentation: CHW wilma call per NOAH Escobedo CHW spoke with the daughterGrace this date. Daughter reports that the [facility] scale is still not working, she spoke with [facility] they attempted to trouble shoot with no success so another scale is being sent to them. She stated she spoke with them before Thanksgiving. Daughter says mom weighs daily but forgets to write it down and doesn't remember what it is. Patient is not able to do her BS reading and pt's daughter had spoken with the doctor about a libredevice. CHW is not sure if pt has the ability to use this device. Grace did state that her mother has some swelling in her left eyelid and her right leg. Daughter was not absolutely sure of which side exactly the swelling was on. Grace states she has no other issues or concerns at this time. CHW will route to . documented in this encounter Plan of Treatment Upcoming Encounters Date Type Department Care Team (Late st Contact Info) Description 09/18/2024 1:40 PM EST Office Visit Podiatry [facility] [address] [facility] [place] [address] Bryanna Guzman DPM [address] [place] [address] 10/15/2024 3:00 PM EST Office Visit Cardiology, [facility] [address] [facility] [place] [address] Yeni Laureano CRNP [address] [facility] [place] [address] 01/02/2025 3:00 PM EDT Office Visit Family Practice [facility] [address] [facility] [place] [address] Chad Phoenix, DO [address] [facility] [place] [address] 04/30/2025 3:00 PM EDT Office Visit Pulmonary Medicine, [facility] [address] [facility] [place] [address] Krunal Sherwood MD [address] [place] [address] Health Maintenance Due Date Last Done Comments [...] Additional history exists CKD PHOS USE SMARTSET 75003 05/04/202504/10, 10/20/2022, 12/08/2021, Additional history exists Diabetic Foot Exam 06/05/2025 06/05/2024, 0 10/26/2022, 11/24/2021, Additional history exists TSH 07/24/2025 07/24/2024, 04/10, 04/05/2023, Additional history exists CKD HGB USE SMARTSET [id number] 08/17/202508/17, 08/11/2024, 08/10/2024, Additional history exists Depression [...] Care Agent (per Health Care Power of Apparel Stock Checker document) GRACE Pearl Adult Child Second Alternate Health Care Agent (per Health Care Power of Apparel Stock Checker document) Care Teams Die Try Out Worker Relationship Specialty Start Date End Date Chad Phoenix DO [address] [place] [address] PCP - General Family Medicine 06/02/18 documented as of this encounter
--- OUTSIDE RECORDS SUMMARY | 2024-09-16 22:35 | External Medical Summary | Summary of Care ---
Author Name Unknown Organization [facility] Address [address] [facility] [place] [address] Phone [phone] Care Team Providers Care Resilient Tile Installer Name Role Phone JorgitoChad hager Jorge Luis GAMEZ Primary Care Provider [phone] Reason for Visit * Reason Onset Date Comments Pacemaker Clinic 08/27/2024 Missed transmis billie Encounter Details Date Type Department Care Team (Late st Contact Info) Description 08/27/2024 Telephone Cardiology, [facility] [address] [place] [address] [place], Pacer Clinic [facility] [address] [place] [address] Pacemaker Clinic (Missed transmission ) Allergies Active Allergy Reactions Criticality Noted Date Comments Glipizide 02/18/2021 Dizzy, confusion Latex Rash 04/05/2024 Penicillins Rash 10/13/2001 Quetiapine Other (Please comment) 08/17/2024 Severe fatigue documented as of this encounter (statuses as of 08/27/2024) Medications NEBULIZER MISCIndications:Ac vandana bronchitis, complicated use [...] ions:COPD, group B, by GOLD 2017 classification ([facility]) Inhale 1 Vial via nebulizer every 4 hours as needed for Wheezing or Shortness of Breath. 90 mL 3 10/20/19 23 Active oxygen IN GAS Increase to 3 LPM bled through CPAP with all sleep. T and B medical 1 Each 12/21/19 23 Active Levothyroxine Sodium 75 MCG Oral Tablet (Levoxyl)Indicatio ns:Acquired hypothyroidism TAKE 1 TABLET BY MOUTH EVERY MORNING AT LEAST 30 MINUTES PRIOR TO BREAKFAST OR OTHER MEDICATIONS 90 Tablet 3 08/01/20 23 Active Pantoprazole Sodium 40 MG Oral [...] unspecified whether stage 3a or 3b CKD ([facility]) Take 1 Tablet by mouth in the morning. In the morning.. 30 Tablet 5 02/01/20 24 Active Furosemide 40 MG Oral Tablet (Lasix)Indications :Heart failure, diastolic, due to HTN ([facility]) TAKE ONE TABLET BY MOUTH IN THE MORNING AND ONE TABLET BEFORE BEDTIME 180 Tablet 1 05/24/20 24 Active Magnesium Oxide 400 MG Oral Tablet Take 1 Tablet by mouth in the morning. 06/05/20 24 Active Isosorbide Mononitrate ER 30 MG Oral Tablet Extended Release 24 Hour (Imdur) Take 0.5 Tablets by mouth in the morning. In the morning.. 45 Tablet 3 06/05/20 Active Additional Information Patient taking differently: 30 mgOral Daily(AM), In the morning., Reported on 08/17/2024 Metoprolol Succinate ER 50 MG Oral Tablet Extended Release 24 Hour (toPROL XL) Take 1 Tablet by mouth in the morning and 1 Tablet before bedtime. Active Eliquis 5 MG Oral Tablet Take 1 Tablet by mouth in the morning and 1 Tablet before bedtime. 08/13/20 Active 9factsTouch Verio w/Device KitIndications:Typ e 2 diabetes mellitus with hemoglobin A1c goal of less than 8.0% (HCC) Use up to 4 times a day E11.9 1 Kit 08/17/20 Active OneTouch Verio In Vitro Strip (Glucose Blood)Indications: Type 2 diabetes mellitus with hemoglobin A1c goal of less than 8.0% (HCC) Use up to 4 times a day E11.9 100 Strip 11 08/17/20 Active 9factsTouch UltraSoft LancetsIndications :Type 2 diabetes mellitus with hemoglobin A1c goal of less than 8.0% (HCC) Use up to four times a day as directed E11.9 100 Each 5 08/17/20 Active Rosuvastatin Calcium 20 MG Oral Tablet (Crestor) TAKE 1 TABLET BY MOUTH ONCE DAILY 90 Tablet 3 08/20/20 Active documented as of this encounter (statuses as of 08/27/2024) Active Problems Problem Noted Date Diagnosed Date [...] mitral regurgitation by prior echocardi ogram 10/18/2017 shelter 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 therapy 0 10/18/2017 [...] as of this encounter (statuses as of 08/27/2024) Resolved Problems Problem Noted Date Diagnosed Date Resolved Date CKD (chronic kidney disease) stage 4, GFR 15-29 ml/min 11/24/2021 08/23/2024 Coronary artery disease invo lving [place] heart without angina pectoris 04/18/2019 10/29/2019 COPD, [...] 08/29/2018 Overview (03/02/2012): Per CKD protocol #1 shelter current use [...] as of this encounter (statuses as of 08/27/2024) Immunizations Name Administration Dates Next Due COVID-19 [...] ages 0-17 years) Not on file 09/21/2023 Comments No Sex and Gender Information Value [...] encounter Miscellaneous Notes * Telephone Encounter - Merna Das LPN - 08/27/2024 12:41 PM EST [employer] message sent to patient regardind missed remote transmission documented in this encounter Plan of Treatment Upcoming Encounters Date Type Department Care Team (Late st Contact Info) Description 09/18/2024 8:40 AM EST Office Visit Podiatry [facility] [address] [facility] [place] [address] Bryanna Guzman DPM [address] [place] [address] 10/15/2024 3:00 PM EST Office Visit Cardiology, [facility] [address] [place] [address] Yeni Laureano CRNP [address] [place] [address] 01/02/2025 3:00 PM EDT Office Visit Family Practice [facility] [address] [facility] [place] [address] Chad Phoenix DO [address] [facility] [place] [address] 04/30/2025 3:00 PM EDT Office Visit Pulmonary Medicine, [facility] [address] [place] [address] Krunal Sherwood MD [address] [place] [address] Health Maintenance Due Date Last Done Comments [...] Additional history exists CKD PHOS USE SMARTSET 24327 05/04/2025 07/2 03/2024, 10/20/2022, 12/08/2021, Additional history exists Diabetic Foot Exam 06/05/2025 06/05/2024, 0 10/26/2022, 11/24/2021, Additional history exists TSH 07/24/2025 07/24/2024, 07/03/2024, 04/05/2023, Additional history exists CKD HGB USE SMARTSET 47612 08/17/202508/17, 08/11/2024, 08/10/2024, Additional history exists Pneumococcal Vaccine: 65+ Years [...] Care Agent (per Health Care Power of Pay Station Department Manager document) DAVID Ryanne Adult Child Second Alternate Health Care Agent (per Health Care Power of Pay Station Department Manager document) Care Teams Resilient Tile Installer Relationship Specialty Start Date End Date Chad Phoenix DO [address] [place] [address] PCP - General Family Medicine 06/02/18 documented as of this encounter
--- OUTSIDE RECORDS SUMMARY | 2024-09-16 22:35 | External Medical Summary | Summary of Care ---
Author Name Unknown Organization [facility] Address [address] [facility] [place] [address] Phone [phone] Care Team Providers Care Electrical Engineering Technologist Name Role Phone Chad Phoenix DO Primary Care Provider [phone] Reason for Visit * Reason Onset Date Comments Appointment 09/07/2024 Encounter Details Date Type Department Care Team (Late st Contact Info) Description 09/07/2024 Telephone Family Practice [facility] [address] [facility] [place] [address] Chad Phoenix DO [address] [facility] [place] [address] Appointment Allergies Active Allergy Reactions Criticality Noted Date Comments Glipizide 02/18/2021 Dizzy, confusion Latex Rash 04/05/2024 Penicillins Rash 10/13/2001 Quetiapine Other (Please comment) 08/17/2024 Severe fatigue documented as of this encounter (statuses as of 09/07/2024) Medications NEBULIZER MISCIndications:Ac vandana bronchitis, complicated use [...] ions:COPD, group B, by GOLD 2017 classification (FORMERLY [...] whether stage 3a or 3b CKD ([facility]) Take 1 Tablet by mouth in the morning. In the morning.. 30 Tablet 5 02/01/20 24 Active Furosemide 40 MG Oral Tablet (Lasix)Indications :Heart failure, diastolic, due to HTN ([facility]) TAKE ONE TABLET BY MOUTH IN [...] 1 Tablet before bedtime. 08/13/20 24 Active CGA EndowmentTouch Verio w/Device KitIndications:Typ e 2 diabetes mellitus with hemoglobin A1c goal of less than 8.0% (HCC) Use up to 4 times a day E11.9 1 Kit 08/17/20 24 Active OneTouch Verio In Vitro Strip (Glucose Blood)Indications: Type 2 diabetes mellitus with hemoglobin A1c goal of less than 8.0% (HCC) Use up to 4 times a day E11.9 100 Strip 11 08/17/20 24 Active CGA EndowmentTouch UltraSoft LancetsIndications :Type 2 diabetes mellitus with [...] OTHER MEDICATIONS 90 Tablet 3 09/03/20 Active Dexcom G7 Sensor Use as directed every 10 days. Check blood sugar regularly E11.9 3 Each 5 09/05/20 24 Active Dexcom G7 Coreroom Foundry Laborer Device Use as directed. Check blood sugar regularly E11.9 1 Each 09/05/20 24 Active documented as of this encounter (statuses as of 09/07/2024) Active Problems Problem Noted Date Diagnosed Date [...] mitral regurgitation by prior echocardi ogram 10/18/2017 assisted 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 therapy 0 10/18/2017 [...] as of this encounter (statuses as of 09/07/2024) Resolved Problems Problem Noted Date Diagnosed Date Resolved Date CKD (chronic kidney disease) stage 4, GFR 15-29 ml/min 11/24/2021 08/23/2024 Coronary artery disease invo lving [place] heart [...] 08/29/2018 Overview (03/02/2012): Per CKD protocol #1 assisted current use of 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 therapy 03/05/2011 [...] as of this encounter (statuses as of 09/07/2024) Immunizations Name Administration Dates Next Due COVID-19 [...] 08/31/2024 Does the household have a re lar [...] encounter Miscellaneous Notes * Telephone Encounter - Samatnha Trevino OSA - 09/07/2024 2:32 PM EST Due to Medicare guidelines for Podiatry Routine Footcare & Mycotic Nail visits, we will need documented medical necessity for this patient's upcoming appointment on 02/29/24. A new referral is required every 6 months and must include documented medical necessity for Medicare to pay for these services. Please assist with placing a new referral within Epic. Please see the below link that will outline the appropriate/approved DX codes. Article - Billing and Coding: Routine Foot Care ([id number]) (cms.gov) Thank you! Podiatry Scheduling documented in this encounter Plan of Treatment Upcoming Encounters Date Type Department Care Team (Late st Contact Info) Description 09/18/2024 1:40 PM EST Office Visit Podiatry [facility] [address] [facility] [place] [address] Bryanna Guzman DPM [address] [facility] [place] [address] 10/15/2024 3:00 PM EST Office Visit Cardiology, [facility] [address] [facility] [place] [address] Yeni Laureano CRNP [address] [facility] [place] [address] 01/02/2025 3:00 PM EDT Office Visit Family Practice [facility] [address] [facility] [place] [address] Chad Phoenix, DO [address] [facility] [place] [address] 04/30/2025 3:00 PM EDT Office Visit Pulmonary Medicine, [facility] [address] [facility] [place] [address] Krunal Sherwood MD [address] [place] [address] Health Maintenance Due Date Last Done Comments Adult Wellness Visit 04/15/2022 04/15/2021 Diabetic Eye Exam 06/06/2024 06/06/2023, , 12/06/2022, Additional history exists COVID-19 Vaccine ( season) 2024 09/23/2021, 12/09/2020, 11/11/2020 Zoster Vaccines (2 of 2) 07/31/2024 06/05/2024 DTap/Tdap Vaccines (2 - Td or Tdap) 09/02/2024 09/02/2014 HbA1c 11/04/2024 05/04/2024, 010 11/2023, 04/05/2023, Additional history exists Albumin/Creatinine Ratio 05/04/2025 024, 10/26/2022, 12/08/2021, Additional history exists CKD PHOS USE SMARTSET 14298 05/04/202504/10, 10/20/2022, 12/08/2021, Additional history exists Diabetic Foot Exam 06/05/2025 06/05/2024, 0 10/26/2022, 11/24/2021, Additional history exists TSH 07/24/2025 07/24/2024, 04/10, 04/05/2023, Additional history exists CKD HGB USE SMARTSET 35557 08/17/202508/17, 08/11/2024, 08/10/2024, Additional history exists Depression [...] Care Agent (per Health Care Power of Ocean Rescue Lieutenant document) DAVID Pearl Adult Child Second Alternate Health Care Agent (per Health Care Power of Ocean Rescue Lieutenant document) Care Teams Electrical Engineering Technologist Relationship Specialty Start Date End Date Chad Phoenix DO [address] [place] [address] PCP - General Family Medicine 06/02/18 documented as of this encounter
--- OUTSIDE RECORDS SUMMARY | 2024-09-16 22:35 | External Medical Summary | Summary of Care ---
Author Name Unknown Organization [facility] Address [address] [facility] [place] [address] Phone [phone] Care Team Providers Care Safety Companion Name Role Phone Chad Phoenix DO Primary Care Provider [phone] Reason for Visit * Reason Onset Date Comments Home Health 09/03/2024 Encounter Details Date Type Department Care Team (Late st Contact Info) Description 09/03/2024 Telephone Family Practice [facility] [place] [address] [facility] [place] [address] Chad Phoenix DO [address] [facility] [place] [address] Home Health Allergies Active Allergy Reactions Criticality Noted Date Comments Glipizide 02/18/2021 Dizzy, confusion Latex Rash 04/05/2024 Penicillins Rash 10/13/2001 Quetiapine Other (Please comment) 08/17/2024 Severe fatigue documented as of this encounter (statuses as of 09/05/2024) Medications NEBULIZER MISCIndications:Ac vandana bronchitis, complicated use [...] whether stage 3a or 3b CKD ([facility]) Take 1 Tablet by mouth in the morning. In the morning.. 30 Tablet 5 02/01/20 24 Active Furosemide 40 MG Oral Tablet (Lasix)Indications :Heart failure, diastolic, due to HTN ([facility] [...] Each 5 09/05/20 24 Active Dexcom G7 Management Information Systems Director Device Use as directed. Check blood sugar regularly E11.9 1 Each 09/05/20 24 Active documented as of this encounter (statuses as of 09/05/2024) Active Problems Problem Noted Date Diagnosed Date [...] as of this encounter (statuses as of 09/05/2024) Resolved Problems Problem Noted Date Diagnosed Date Resolved Date CKD (chronic kidney disease) stage 4, GFR 15-29 ml/min 11/24/2021 08/23/2024 Coronary artery disease invo lving [place] heart without angina pectoris 04/18/2019 10/29/2019 COPD, [...] 08/29/2018 Overview (03/02/2012): Per CKD protocol #1 [facility] current use of 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 therapy 03/05/2011 [...] as of this encounter (statuses as of 09/05/2024) Immunizations Name Administration Dates Next Due COVID-19 [...] Telephone Encounter - Chad Phoenix DO - 09/05/2024 4:48 PM EST Pt called, will add an extra dose of lasix for the next 3 days. Dexcom also sent to help monitor sugars * Telephone Encounter - Vik Markham LPN - 09/05/2024 12:00 PM EST HH Concerns tamika PT, Calling from: [facility] Report/Concerns of: increased wt. Symptoms: see narrative Vitals: T 97.8 P 78 RR 18 BP 128/64 SP O2 97 RA Lung sounds clear Weight 173lbs , on 08/21 164lbs, on 08/28 169.2lbs, On 09/03 172lbs Blood sugar 134 fasting Narrative: Increased wt , see wts above, 9 lbs since 08/21. no sob she does have increased edema in bliat legs Pt is taking lasix 40 mg BID. Call back Daughter Grace with any advice or orders at [phone] * Telephone Encounter - Jocelin Villalpando OSA - 09/05/2024 11:57 AM EST Reason for patient's call: Asking to speak to a nurse Caller was transferred to vik at the nurse line. * Telephone Encounter - Vik Markham LPN - 09/03/2024 2:41 PM EST HH Concerns tamika RN, Calling from: [facility] Report/Concerns of: additonal tele health visit Narrative: tamika requesting addition telehealth visit to continue to educate pt and help monitor CHF (wts) and BS. Verbal given to sign order to Dr Phoenix to be signed. documented in this encounter Plan of Treatment Upcoming Encounters Date Type Department Care Team (Late st Contact Info) Description 09/18/2024 8:40 AM EST Office Visit Podiatry [facility] [address] [place] [address] Vik Guzman DPM [address] [place] [address] 10/15/2024 3:00 PM EST Office Visit Cardiology, [facility] [address] [place] [address] Yeni Laureano CRNP [address] [place] [address] 01/02/2025 3:00 PM EDT Office Visit Family Practice [facility] [address] [facility] [place] [address] Chad Phoenix DO [address] [facility] [place] [address] 04/30/2025 3:00 PM EDT Office Visit Pulmonary Medicine, [facility] [address] [facility] [place] [address] Krunal Sherwood MD [address] [place] [address] Health Maintenance Due Date Last Done Comments Adult Wellness Visit 04/15/2022 04/15/2021 Diabetic Eye Exam 06/06/2024 06/06/2023, , 12/06/2022, Additional history exists COVID-19 Vaccine ( season) 2024 09/23/2021, 12/09/2020, 11/11/2020 Zoster Vaccines (2 of 2) 07/31/2024 06/05/2024 DTap/Tdap Vaccines (2 - Td or Tdap) 09/02/2024 09/02/2014 HbA1c 11/04/2024 05/04/2024, 11/2023, 04/05/2023, Additional history exists Albumin/Creatinine Ratio 05/04/2025 024, 10/26/2022, 12/08/2021, Additional history exists CKD PHOS USE SMARTSET 84242 05/04/202504/10, 10/20/2022, 12/08/2021, Additional history exists Diabetic Foot Exam 06/05/2025 06/05/2024, 0 10/26/2022, 11/24/2021, Additional history exists TSH 07/24/2025 07/24/2024, 04/10, 04/05/2023, Additional history exists CKD HGB USE SMARTSET 07527 08/17/202508/17, 08/11/2024, 08/10/2024, Additional history exists Depression [...] Care Agent (per Health Care Power of Coordinate Measuring Equipment Operator document) GRACE Pearl Adult Child Second Alternate Health Care Agent (per Health Care Power of Coordinate Measuring Equipment Operator document) Care Teams Safety Companion Relationship Specialty Start Date End Date Chad Phoenix DO [address] [place] [address] PCP - General Family Medicine 06/02/18 documented as of this encounter
--- OUTSIDE RECORDS SUMMARY | 2024-09-16 22:35 | External Medical Summary | Summary of Care ---
Author Name Unknown Organization [facility] Address [address] [facility] [place] [address] Phone [phone] Care Team Providers Care Diplomatic Courier Name Role Phone Letitia Posey DO Primary Care Provider [phone] Reason for Visit * Reason Comments eRx-Medication Refill Encounter Details Date Type Department Care Team (Late st Contact Info) Description 09/02/2024 Refill Family Practice [facility] [place] [address] [facility] [place] [address] Letitia Posey DO [address] [facility] [place] [address] Acquired hypothyroidism Allergies Active Allergy Reactions Criticality Noted Date Comments Glipizide 02/18/2021 Dizzy, confusion Latex Rash 04/05/2024 Penicillins Rash 10/13/2001 Quetiapine Other (Please comment) 08/17/2024 Severe fatigue documented as of this encounter (statuses as of 09/03/2024) Medications NEBULIZER MISCIndications:A cute bronchitis, complicated use every 8 hrs as directed 1 Units 0 011 Active SPACER/AERO CHAMBER MOUTHPIECE MISCIndications:S hortness of breath use with inhalers as instructed 1 Device 2 012 Active ONETOUCH ULTRASOFT LANCETS MISCIndications:D M type 2, goal A1c below 7 Test up to 4 times daily 5 Box Dosing Unit 10 016 Active acetaminophen (TYLENOL) 500 MG Tablet Take 1 Tablet by mouth every 4 hours as needed for Pain. Per [facility] dc summary 06/26/18 Active triamcinolone acetonide (ARISTOCORT) 0.1 % ointmentIndicatio ns:Eczema of right external ear Apply topically to affected area 2 times a day. To affected area on R external ear 60 g 019 Active OneTouch Verio In Vitro Strip (Glucose Blood) test once daily Dx. E11.9 100 Strip 3 021 Active Albuterol Sulfate (2.5 MG/3ML) 0.083% Inhalation Nebulization Solution (Proventil)Indica tions:COPD, group B, by GOLD 2017 classification ([facility]) Inhale 1 Vial via nebulizer every 4 hours as needed for Wheezing or Shortness of Breath. 90 mL 3 023 Active oxygen IN GAS Increase to 3 LPM bled through CPAP with all sleep. T and B medical 1 Each 023 Active Pantoprazole Sodium 40 MG Oral Tablet Delayed Release (Protonix) TAKE 1 TABLET BY MOUTH ONCE DAILY 90 Tablet 3 024 Active Montelukast Sodium 10 MG Oral Tablet (Singulair) TAKE 1 TABLET BY MOUTH EVERY MORNING 90 Tablet 3 024 Active Januvia 50 MG Oral TabletIndications :Type 2 diabetes mellitus with stage 3 chronic kidney disease, without long-term current use of insulin, unspecified whether stage 3a or 3b CKD ([facility]) Take 1 Tablet by mouth in the morning. In the morning.. 30 Tablet 5 024 Active Furosemide 40 MG Oral Tablet (Lasix)Indication s:Heart failure, diastolic, due to HTN ([facility]) TAKE ONE TABLET BY MOUTH IN THE MORNING AND ONE TABLET BEFORE BEDTIME 180 Tablet 1 024 Active Magnesium Oxide 400 MG Oral Tablet Take 1 Tablet by mouth in the morning. 024 Active Isosorbide Mononitrate ER 30 MG Oral Tablet Extended Release 24 Hour (Imdur) Take 0.5 Tablets by mouth in the morning. In the morning.. 45 Tablet 3 024 Active Additional Information Patient taking differently: 30 mgOral Daily(AM), In the morning., Reported on 08/31/2024 Metoprolol Succinate ER 50 MG Oral Tablet Extended Release 24 Hour (toPROL XL) Take 1 Tablet by mouth in the morning and 1 Tablet before bedtime. Active Eliquis 5 MG Oral Tablet Take 1 Tablet by mouth in the morning and 1 Tablet before bedtime. Active OneTouch Verio w/Device KitIndications:Ty pe 2 diabetes mellitus with hemoglobin A1c goal of less than 8.0% (HCC) Use up to 4 times a day E11.9 1 Kit Active OneTouch Verio In Vitro Strip (Glucose Blood)Indications :Type 2 diabetes mellitus with hemoglobin A1c goal of less than 8.0% (HCC) Use up to 4 times a day E11.9 100 Strip 11 Active OneTouch UltraSoft LancetsIndication s:Type 2 diabetes mellitus with hemoglobin A1c goal of less than 8.0% (HCC) Use up to four times a day as directed E11.9 100 Each 5 Active Rosuvastatin Calcium 20 MG Oral Tablet (Crestor) TAKE 1 TABLET BY MOUTH ONCE DAILY 90 Tablet 3 Active OneTouch Delica Lancets 30G Use to check blood sugar as needed. 100 Each 5 Active Levothyroxine Sodium 75 MCG Oral Tablet (Levoxyl)Indicati ons:Acquired hypothyroidism TAKE 1 TABLET BY MOUTH EVERY MORNING AT LEAST 30 MINUTES PRIOR TO BREAKFAST OR OTHER MEDICATIONS 90 Tablet 3 Active Levothyroxine Sodium 75 MCG Oral Tablet (Levoxyl)Indicati ons:Acquired hypothyroidism TAKE 1 TABLET BY MOUTH EVERY MORNING AT LEAST 30 MINUTES PRIOR TO BREAKFAST OR OTHER MEDICATIONS 90 Tablet 3 023 2023 Discontinued documented as of this encounter (statuses as of 09/03/2024) Active Problems Problem Noted Date Diagnosed Date [...] as of this encounter (statuses as of 09/03/2024) Resolved Problems Problem Noted Date Diagnosed Date Resolved Date CKD (chronic kidney disease) stage 4, GFR 15-29 ml/min 11/24/2021 08/23/2024 Coronary artery disease invo lving [place] heart without angina pectoris 04/18/2019 10/29/2019 COPD, [...] 08/29/2018 Overview (03/02/2012): Per CKD protocol #1 care home current [...] as of this encounter (statuses as of 09/03/2024) Immunizations Name Administration Dates Next Due COVID-19 [...] Miscellaneous Notes * Telephone Encounter - Falguni Olivera RPh - 09/03/2024 3:49 PM ESTSigned Prescriptions: Disp Refills Levothyroxine Sodium 75 MCG Oral Tablet (L*90 Tab*3 Sig: TAKE 1 TABLET BY MOUTH EVERY MORNING AT LEAST 30 MINUTES PRIOR TO BREAKFAST OR OTHER MEDICATIONSAuthorizingProvider: LETITIA POSEY User: FALGUNI OLIVERA documented in this encounter Plan of Treatment Upcoming Encounters Date Type Department Care Team (Late st Contact Info) Description 09/18/2024 8:40 AM EST Office Visit Podiatry [facility] [address] [place] [address] Bryanna Guzman DPM [address] [place] [address] 10/15/2024 3:00 PM EST Office Visit Cardiology, [facility] [address] [place] [address] Yeni Laureano CRNP [address] [place] [address] 01/02/2025 3:00 PM EDT Office Visit Family Practice [facility] [address] [facility] [place] [address] Letitia Posey, DO [address] [facility] [place], [place] [address] 04/30/2025 3:00 PM EDT Office Visit Pulmonary Medicine, [facility] [address] [facility] [place] [address] Krunal Sherwood MD [address] [facility] [address] Health Maintenance Due Date Last Done Comments Adult Wellness Visit 04/15/2022 04/15/2021 Diabetic Eye Exam 06/06/2024 06/06/2023, , 12/06/2022, Additional history exists COVID-19 Vaccine ( - season) 2024 09/23/2021, 12/09/2020, 11/11/2020 Zoster Vaccines (2 of 2) 07/31/2024 06/05/2024 DTap/Tdap Vaccines (2 - Td or Tdap) 09/02/2024 09/02/2014 HbA1c 11/04/2024 05/04/2024, 0 11/2023, 04/05/2023, Additional history exists Albumin/Creatinine Ratio 05/04/2025 024, 10/26/2022, 12/08/2021, Additional history exists CKD PHOS USE SMARTSET 66381 05/04/202504/10, 10/20/2022, 12/08/2021, Additional history exists Diabetic Foot Exam 06/05/2025 06/05/2024, 0 10/26/2022, 11/24/2021, Additional history exists TSH 07/24/2025 07/24/2024, 04/10, 04/05/2023, Additional history exists CKD HGB USE SMARTSET 27530 08/17/202508/17, 08/11/2024, 08/10/2024, Additional history exists Depression [...] hypothyroidism documented in this encounter Advance Directives * [...] Care Agent (per Health Care Power of Professional Bondsman document) DAVID Pearl Adult Child Second Alternate Health Care Agent (per Health Care Power of Professional Bondsman document) Care Teams Diplomatic Courier Relationship Specialty Start Date End Date Letitia Posey DO [address] [place] [address] PCP - General Family Medicine 06/02/18 documented as of this encounter
--- OUTSIDE RECORDS SUMMARY | 2024-09-16 22:35 | External Medical Summary | Summary of Care ---
Author Name Unknown Organization [facility] Address [address] [facility] [place] [address] Phone [phone] Care Team Providers Care Tack Puller Machine Name Role Phone Chad Phoenix DO Primary Care Provider [phone] Encounter Details Date Type Department Care Team (Late st Contact Info) Description 08/28/2024 Telephone Family Practice [facility] [place] [address] [facility] [place] [address] Chad Phoenix DO [address] [facility] [place] [address] Allergies Active Allergy Reactions Criticality Noted Date Comments Glipizide 02/18/2021 Dizzy, confusion Latex Rash 04/05/2024 Penicillins Rash 10/13/2001 Quetiapine Other (Please comment) 08/17/2024 Severe fatigue documented as of this encounter (statuses as of 08/31/2024) Medications NEBULIZER MISCIndications:Ac nikolai bronchitis, complicated use every 8 hrs as [...] ions:COPD, group B, by GOLD 2017 classification ([facility] [...] unspecified whether stage 3a or 3b CKD ([facility]) Take 1 Tablet by mouth in the morning. In the morning.. 30 Tablet 5 02/01/20 24 Active Furosemide 40 MG Oral Tablet (Lasix)Indications :Heart failure, diastolic, due to HTN ([facility]) TAKE ONE TABLET BY [...] and 1 Tablet before bedtime. 08/13/20 Active OneTouch Verio w/Device KitIndications:Typ e 2 diabetes mellitus with hemoglobin A1c goal of less than 8.0% (HCC) Use up to 4 times a day E11.9 1 Kit 08/17/20 Active OneTouch Verio In Vitro Strip (Glucose Blood)Indications: Type 2 diabetes mellitus with hemoglobin A1c goal of less than 8.0% (HCC) Use up to 4 times a day E11.9 100 Strip 11 08/17/20 Active OneTouch UltraSoft LancetsIndications :Type 2 diabetes mellitus with hemoglobin A1c goal of less than 8.0% (HCC) Use up to four times a day as directed E11.9 100 Each 5 08/17/20 Active Rosuvastatin Calcium 20 MG Oral Tablet (Crestor) TAKE 1 TABLET BY MOUTH ONCE DAILY 90 Tablet 3 08/20/20 Active documented as of this encounter (statuses as of 08/31/2024) Active Problems Problem Noted Date Diagnosed Date [...] regurgitation by prior echocardi ogram 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 [...] as of this encounter (statuses as of 08/31/2024) Resolved Problems Problem Noted Date Diagnosed Date Resolved Date CKD (chronic kidney disease) stage 4, GFR 15-29 ml/min 11/24/2021 08/23/2024 Coronary artery disease invo lving [place] heart without angina pectoris 04/18/2019 10/29/2019 COPD, [...] 08/29/2018 Overview (03/02/2012): Per CKD protocol #1 correction current use [...] as of this encounter (statuses as of 08/31/2024) Immunizations Name Administration Dates Next Due COVID-19 [...] Telephone Encounter - Chad Phoenix DO - 08/31/2024 4:39 PM EST See phone call from 08/31 * Telephone Encounter - Shayy Mccollum OSA - 08/28/2024 1:44 PM EST HH calling to report a weight gain of 5 lbs in one weeks time. Please advise. documented in this encounter Plan of Treatment Upcoming Encounters Date Type Department Care Team (Late st Contact Info) Description 09/18/2024 8:40 AM EST Office Visit Podiatry [facility] [address] [place] [address] Bryanna Guzman DPM [address] [place] [address] 10/15/2024 3:00 PM EST Office Visit Cardiology, [facility] [address] [facility] [place] [address] Yeni Laureano CRNP [address] [place] [address] 01/02/2025 3:00 PM EDT Office Visit Family Practice [facility] [address] [facility] [place] [address] Chad Phoenix, [address] [facility] [place] [address] 04/30/2025 3:00 PM EDT Office Visit Pulmonary Medicine, [facility] [address] [place] [address] Krunal Sherwood MD [address] [place] [address] Health Maintenance Due Date Last Done Comments [...] Additional history exists CKD PHOS USE SMARTSET 80931 05/04/2025 07/03/2024, 10/20/2022, 12/08/2021, Additional history exists Diabetic Foot Exam 06/05/2025 06/05/2024, 0 10/26/2022, 11/24/2021, Additional history exists TSH 07/24/2025 07/24/2024, 07/2 03/2024, 04/05/2023, Additional history exists CKD HGB USE SMARTSET 13167 08/17/202508/17, 08/11/2024, 08/10/2024, Additional history exists Depression [...] Care Agent (per Health Care Power of Color Television Console Monitor document) DAVID Ryanne Adult Child Second Alternate Health Care Agent (per Health Care Power of Color Television Console Monitor document) Care Teams Tack Puller Machine Relationship Specialty Start Date End Date Chad Phoenix DO [address] [place] [address] PCP - General Family Medicine 06/02/18 documented as of this encounter
--- OUTSIDE RECORDS SUMMARY | 2024-09-16 22:35 | External Medical Summary | Summary of Care ---
Author Name Unknown Organization [facility] Address [address] [facility] [place] [address] Phone [phone] Care Team Providers Care Clean Up Helper Banquet Name Role Phone Chad Phoenix DO Primary Care Provider [phone] Reason for Visit * Reason Onset Date Comments Appointment 09/07/2024 Encounter Details Date Type Department Care Team (Late st Contact Info) Description 09/07/2024 Telephone Family Practice [facility] [place] [address] [facility] [place] [address] Chad Phoenix DO [address] [facility] [place] [address] Appointment Allergies Active Allergy Reactions Criticality Noted [...] ions:COPD, group B, by GOLD 2017 classification ([facility]) Inhale 1 Vial via nebulizer [...] unspecified whether stage 3a or 3b CKD ([facility]) Take 1 Tablet by mouth in the morning. In the morning.. 30 Tablet 5 02/01/20 24 Active Furosemide 40 MG Oral Tablet (Lasix)Indications :Heart failure, diastolic, due to HTN ([facility]) TAKE ONE TABLET BY MOUTH [...] 1 Tablet before bedtime. 08/13/20 24 Active AmaraTouch Verio w/Device KitIndications:Typ e 2 diabetes mellitus with hemoglobin A1c goal of less than 8.0% (HCC) Use up to 4 times a day E11.9 1 Kit 08/17/20 24 Active OneTouch Verio In Vitro Strip (Glucose Blood)Indications: Type 2 diabetes mellitus with hemoglobin A1c goal of less than 8.0% (HCC) Use up to 4 times a day E11.9 100 Strip 11 08/17/20 24 Active AmaraTouch UltraSoft LancetsIndications :Type 2 diabetes mellitus with [...] Each 5 09/05/20 24 Active Dexcom G7 Ethnoarchaeologist Device Use as directed. Check blood sugar [...] mitral regurgitation by prior echocardi ogram 10/18/2017 [facility] 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 therapy 0 10/18/2017 [...] 11/24/2021 08/23/2024 Coronary artery disease invo lving [place]is [place] [...] 08/29/2018 Overview (03/02/2012): Per CKD protocol #1 [facility] current use of 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 therapy 03/05/2011 [...] Valent 10/13/2001 Pneumococcal Polysaccharide PPV23 (Pneumovax) 02/16/2010 Season Influenza, [...] No 08/31/2024 Does the household have a [facility] source of income? (Household - for ages [...] as of this encounter Miscellaneous Notes * Addendum Note - Mitzi Ortiz LPN - 09/07/2024 2:57 PM ESTAddended by: MITZI ORTIZ on: 09/07/2024 02:57 PM Modules accepted: Orders * Telephone Encounter - Mitzi Ortiz LPN - 09/07/2024 2:57 PM EST Referral pended * Telephone Encounter - Samantha Trevino, DAIN - 09/07/2024 2:32 PM EST Due to [...] - Billing and Coding: Routine Foot Care ([id number]) (cms.gov) Thank you! Podiatry Scheduling documented in this encounter Plan of Treatment Upcoming Encounters Date Type Department Care Team (Late st Contact Info) Description 09/18/2024 1:40 PM EST Office Visit Podiatry [facility] [address] [place] [address] Bryanna Guzman DPM [address] [place] [address] 10/15/2024 3:00 PM EST Office Visit Cardiology, [facility] [address] [place] [address] Yeni Laureano CRNP [address] [place] [address] 01/02/2025 3:00 PM EDT Office Visit Family Practice [facility] [address] [place] [address] Chad Phoenix, [address] [facility] [place] [address] 04/30/2025 3:00 PM EDT Office Visit Pulmonary Medicine, [facility] [address] [place] [address] Krunal Sherwood MD [address] [place] [address] Health Maintenance Due Date Last Done Comments [...] Additional history exists CKD PHOS USE SMARTSET 37148 05/04/202504/10, 10/20/2022, 12/08/2021, Additional history exists Diabetic Foot Exam 06/05/2025 06/05/2024, 0 10/26/2022, 11/24/2021, Additional history exists TSH 07/24/2025 07/24/2024, 04/10, 04/05/2023, Additional history exists CKD HGB USE SMARTSET 84531 08/17/202508/17, 08/11/2024, 08/10/2024, Additional history exists Depression [...] Care Agent (per Health Care Power of Archivist Military History document) DAVID Pearl Adult Child Second Alternate Health Care Agent (per Health Care Power of Archivist Military History document) Care Teams Clean Up Helper Banquet Relationship Specialty Start Date End Date Chad Phoenix DO [address] [place] [address] PCP - General Family Medicine 06/02/18 documented as of this encounter
--- OUTSIDE RECORDS SUMMARY | 2024-09-16 22:35 | External Medical Summary | Summary of Care ---
Author Name Unknown Organization [facility] Address [address] [facility] [place] [address] Phone [phone] Care Team Providers Care Steward/Stewardess Tourist Class Name Role Phone Chad Phoenix DO Primary Care Provider [phone] Reason for Visit * Reason Onset Date Comments Appointment 09/07/2024 Encounter Details Date Type Department Care Team (Late st Contact Info) Description 09/07/2024 Telephone Family Practice [facility] [place] [address] [facility] [place] [address] Chad Phoenix DO 200 [facility] [place] [address] Appointment Allergies Active Allergy Reactions Criticality Noted [...] 1 Tablet before bedtime. 08/13/20 24 Active CuipoTouch Verio w/Device KitIndications:Typ e 2 diabetes mellitus with hemoglobin A1c goal of less than 8.0% (HCC) Use up to 4 times a day E11.9 1 Kit 08/17/20 24 Active OneTouch Verio In Vitro Strip (Glucose Blood)Indications: Type 2 diabetes mellitus with hemoglobin A1c goal of less than 8.0% (HCC) Use up to 4 times a day E11.9 100 Strip 11 08/17/20 24 Active CuipoTouch UltraSoft LancetsIndications :Type 2 diabetes mellitus with [...] Each 5 09/05/20 24 Active Dexcom G7 Nephrology Nurse Device Use as directed. Check blood sugar [...] 11/24/2021 08/23/2024 Coronary artery disease invo lving [place] heart without angina pectoris 04/18/2019 10/29/2019 COPD, [...] 08/29/2018 Overview (03/02/2012): Per CKD protocol #1 senior care current use of 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 therapy 03/05/2011 [...] encounter Miscellaneous Notes * Telephone Encounter - Samantha Trevino OSA - 09/07/2024 2:32 PM EST [...] - Billing and Coding: Routine Foot Care ([id number]) (cms.gov) Thank you! Podiatry Scheduling documented in this encounter Plan of Treatment Upcoming Encounters Date Type Department Care Team (Late st Contact Info) Description 09/18/2024 1:40 PM EST Office Visit Podiatry [facility] [address] [facility] [place] [address] Bryanna Guzman DPM 132 [facility] [place] [address] 10/15/2024 3:00 PM EST Office Visit Cardiology, [facility] [address] [facility] [place] [address] Yeni Laureano CRNP [address] [facility] [place] [address] 01/02/2025 3:00 PM EDT Office Visit Family Practice [facility] 200 [facility] [place] [address] Chad Phoenix, DO 200 [facility] [place] [address] 04/30/2025 3:00 PM EDT Office Visit Pulmonary Medicine, [facility] 132 [facility] [place] [address] Krunal Sherwood MD [address] [place] [address] Health Maintenance Due Date Last Done Comments [...] Additional history exists CKD PHOS USE SMARTSET 32807 05/04/202504/10, 10/20/2022, 12/08/2021, Additional history exists Diabetic Foot Exam 06/05/2025 06/05/2024, 0 10/26/2022, 11/24/2021, Additional history exists TSH 07/24/2025 07/24/2024, 04/10, 04/05/2023, Additional history exists CKD HGB USE SMARTSET 64245 08/17/202508/17, 08/11/2024, 08/10/2024, Additional history exists Depression [...] File Name Relationship Healthcare Agent Relationship Communication uRsty May Spouse First Alternate Health Care Agent (per Health Care Power of Acid Correction Hand document) DAVID Pearl Adult Child Second Alternate Health Care Agent (per Health Care Power of Acid Correction Hand document) Care Teams Steward/Stewardess Tourist Class Relationship Specialty Start Date End Date Chad Phoenix DO [address] [place] [address] PCP - General Family Medicine 06/02/18 documented as of this encounter
--- OUTSIDE RECORDS SUMMARY | 2024-09-16 22:35 | External Medical Summary | Summary of Care ---
Author Name Unknown Organization [facility] Address [address] [facility] [place] [address] Phone [phone] Care Team Providers Care Entry Level Civil Engineer Name Role Phone Chad Phoenix DO Primary Care Provider [phone] Reason for Referral * Evaluate & Treat - Unlimited Visits (Within 30 days (routine)) - Authorized Specialty Diagnoses / Procedures Referred By Ga huddleston Referred To Contact Podiatry Diagnoses Type 2 diabetes mellitus with hemoglobin A1c goal of less than 7.5% ([facility]) Onychomycosis Chad Phoenix DO [address] [place] [address] Phone: tel: fax: Referral ID Status Reason Start Date Expiration Date Visits Requested Visits Authorized [id number] Authorized Specialty Services Required 4 [phone] Question Answer Referral Priority Within 30 days (routine) Where should this appointment be scheduled? [facility] Which condition are you referring this patient for? Routine Foot Care Medicare Patient? Yes Can Patient perform routine footcare without assistance? No Does patient have a chronic condition? Yes Has patient been seen in the past 6 months? Yes Date last seen for chronic condition: 08/17/2024 Who saw patient for chronic condition? aura Reason for Visit * Reason Onset Date Comments Appointment 09/07/2024 Encounter Details Date Type Department Care Team (Late st Contact Info) Description 09/07/2024 Telephone Family Practice [facility] [address] [place] [address] Chad Phoenix, DO [address] [place] [address] Appointment Allergies Active Allergy Reactions Criticality Noted [...] ions:COPD, group B, by GOLD 2017 classification ([facility] [...] In the morning.. 30 Tablet 5 02/01/20 Active Furosemide 40 MG Oral Tablet (Lasix)Indications :Heart failure, diastolic, due to HTN (HCC) TAKE ONE TABLET BY MOUTH IN THE MORNING AND ONE TABLET BEFORE BEDTIME 180 Tablet 1 05/24/20 Active Magnesium Oxide 400 MG Oral Tablet Take 1 Tablet by mouth in the morning. 06/05/20 Active Isosorbide Mononitrate ER 30 MG Oral [...] goal of less than 8.0% ([facility]) Use up to 4 times a day [...] sugar as needed. 100 Each 5 08/31/20 Active Levothyroxine Sodium 75 MCG Oral Tablet (Levoxyl)Indicatio ns:Acquired hypothyroidism TAKE 1 TABLET BY MOUTH EVERY MORNING AT LEAST 30 MINUTES PRIOR TO BREAKFAST OR OTHER MEDICATIONS 90 Tablet 3 09/03/20 Active Dexcom G7 Sensor Use as directed every 10 days. Check blood sugar regularly E11.9 3 Each 5 09/05/20 Active Dexcom G7 Inside Sales Consultant Device Use as directed. 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 0 [...] 11/24/2021 08/23/2024 Coronary artery disease invo lving [place] heart without angina pectoris 04/18/2019 10/29/2019 COPD, [...] 08/29/2018 Overview (03/02/2012): Per CKD protocol #1 half-way current use [...] encounter Miscellaneous Notes * Addendum Note - Tanya Garrido III, MD - 09/07/2024 3:06 PM ESTAddended by: TANYA GARRIDO on: 09/07/2024 03:06 PM Modules accepted: Orders * Addendum Note - Adam Prakash LPN - 09/07/2024 2:57 PM ESTAddended by: ADAM PRAKASH on: 09/07/2024 02:57 PM Modules accepted: Orders * Telephone Encounter - Adam Prakash LPN - 09/07/2024 2:57 PM EST Referral pended * Telephone Encounter - Samantha Trevino OSA [...] - Billing and Coding: Routine Foot Care ([id number]) (cms.gov) Thank you! Podiatry Scheduling documented in this encounter Plan of Treatment Upcoming Encounters Date Type Department Care Team (Late st Contact Info) Description 09/18/2024 1:40 PM EST Office Visit Podiatry [facility] [address] [facility] [place] [address] Bryanna Guzman DPM [address] [facility] [place] [address] 10/15/2024 3:00 PM EST Office Visit Cardiology, [facility] [address] [facility] [place] [address] Yeni Laureano [facility] [address] [facility] [address] 01/02/2025 3:00 PM EDT Office Visit Family Practice [facility] [address] [facility] [place] [address] Chad Phoenix, [address] [facility] [place] [address] 04/30/2025 3:00 PM EDT Office Visit Pulmonary Medicine, [facility] [address] [facility] [place] [address] Krunal Sherwood MD [address] [place] [address] Scheduled Referrals Name Type Priority Associated Diagnoses Orde r Schedule PODIATRY REFERRAL OP Referral Within 30 days (routine) Type 2 diabetes mellitus with hemoglobin A1c goal of less than 7.5% (HCC) Onychomycosis Ordered: 09/07/2024 Health Maintenance Due Date Last Done Comments [...] Additional history exists CKD PHOS USE SMARTSET 06628 05/04/202504/10, 10/20/2022, 12/08/2021, Additional history exists Diabetic Foot Exam 06/05/2025 06/05/2024, 0 10/26/2022, 11/24/2021, Additional history exists TSH 07/24/2025 07/24/2024, 04/10, 04/05/2023, Additional history exists CKD HGB USE SMARTSET 99261 08/17/202508/17, 08/11/2024, 08/10/2024, Additional history exists Depression [...] with hemoglobin A1c goal of less than 7.5% (HCC)- Primary Onychomycosis Dermatophytosis of nail documented in this encounter Advance Directives * [...] Care Agent (per Health Care Power of Operations Supervisor Chemical Cleaning document) DAVID Pearl Adult Child Second Alternate Health Care Agent (per Health Care Power of Operations Supervisor Chemical Cleaning document) Care Teams Entry Level Civil Engineer Relationship Specialty Start Date End Date Cahd Phoenix DO [address] [place] [address] PCP - General Family Medicine 06/02/18 documented as of this encounter
--- OUTSIDE RECORDS SUMMARY | 2024-09-16 22:35 | External Medical Summary | Summary of Care ---
Author Name Unknown Organization [facility] Address [address] [facility] [place] [address] Phone [phone] Care Team Providers Care Developmental Mathematics Professor Name Role Phone Letitia Phoenix DO Primary Care Provider [phone] Reason for Visit * Reason Onset Date Comments Medication Refill 08/28/2024 Encounter Details Date Type Department Care Team (Late st Contact Info) Description 08/28/2024 Refill Family Practice [facility] [place] [address] [facility] [place] [address] Letitia Phoenix DO [address] [facility] [place] [address] Type 2 diabetes mellitus with hemoglobin A1c goal of less than 8.0% ([facility]) Allergies Active Allergy Reactions Criticality Noted Date Comments Glipizide 02/18/2021 Dizzy, confusion Latex Rash 04/05/2024 Penicillins Rash 10/13/2001 Quetiapine Other (Please comment) 08/17/2024 Severe fatigue documented as of this encounter (statuses as of 08/31/2024) Medications NEBULIZER MISCIndications:Ac salamatof bronchitis, complicated use every 8 hrs as [...] and 1 Tablet before bedtime. 08/13/20 Active Pagar.meTouch Verio w/Device KitIndications:Typ e 2 diabetes mellitus with hemoglobin A1c goal of less than 8.0% (HCC) Use up to 4 times a day E11.9 1 Kit 08/17/20 Active OneTouch Verio In Vitro Strip (Glucose Blood)Indications: Type 2 diabetes mellitus with hemoglobin A1c goal of less than 8.0% (HCC) Use up to 4 times a day E11.9 100 Strip 11 08/17/20 Active Pagar.meTouch UltraSoft LancetsIndications :Type 2 diabetes mellitus with hemoglobin A1c goal of less than 8.0% (HCC) Use up to four times a day as directed E11.9 100 Each 5 08/17/20 Active Rosuvastatin Calcium 20 MG Oral Tablet (Crestor) TAKE 1 TABLET BY MOUTH ONCE DAILY 90 Tablet 3 08/20/20 Active OneTouch Delica Lancets 30G Use to check blood sugar as needed. 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 Authorizing Provider: LETITIA PHOENIX * Telephone Encounter - Jocelin Perez NA - 08/31/2024 1:20 PM ESTPending Prescriptions: Disp Refills OneTouch Delica Lancets 30G 100 Ea*5 Sig: Use to check blood sugar as needed. * Telephone Encounter - Peyton Beckham OSA - 08/28/2024 3:21 PM EST Patient was prescribed new meter that comes with one touch delica lancing device. Please send RX for one touch delica lancets to go with it, Ultrasoft will not fit * Telephone Encounter - Peyton Beckham OSA - 08/28/2024 3:19 PM EST Did you pend patient's preferred pharmacy and medication before forwarding?yes Pharmacy: [id number] Pending Prescriptions: Disp Refills OneTouch UltraSoft Lancets 100 Ea*5 Sig: Use up to four times a day as directed E11.9 Last Visit: 08/17/2024 (in office), 09/29/2020 (telemedicine) Next Visit: 01/02/2025 If no future appointments scheduled, and last appointment is greater than a year ago, please schedule patient for a follow-up appointment Last date the medication was ordered: [id number] Is this request for a controlled substance?No Urine Drug Screen:No results found. However, due to the size of the patient record, not all encounters were searched. Please check Results Review for a complete set of results. Patient Phone Numbers Labs: Lab Results Component Value Date/Time CREAT 1.2 (H) 08/17/2024 12:03 PM CREAT 1.54 (A) 04/02/2022 12:00 AM CREAT 1.6 (H) 11/05/2020 03:51 PM POTASSIUM 4.6 08/17/2024 12:03 PM POTASSIUM 4.4 04/02/2022 12:00 AM POTASSIUM 4.5 11/05/2020 03:51 PM TSH 1.89 07/24/2024 06:55 AM TSH 2.89 10/14/2020 02:49 PM LDL 32 05/04/2024 03:28 PM LDL 87 06/02/2018 02:18 PM LDL NOT APPLICABLE 06/02/2018 02:18 PM LDLCALC 33 10/13/2014 12:00 AM ALT 21 08/17/2024 12:03 PM ALT 16 07/03/2020 10:28 AM HGBA1C 6.5 (H) 05/04/2024 03:28 PM HGBA1C 6.6 (H) 10/14/2020 02:49 PM documented in this encounter Plan of Treatment Upcoming Encounters Date Type Department Care Team (Late st Contact Info) Description 09/18/2024 8:40 AM EST Office Visit Podiatry [facility] [address] [address] Bryanna Guzman DPM [address] [place] [address] 10/15/2024 3:00 PM EST Office Visit Cardiology, [facility] [address] [place] [address] Yeni Laureano CRNP [address] [place] [address] 01/02/2025 3:00 PM EDT [facility] [place] [address] [place] [address] Letitia Phoenix, [address] [place] [address] 04/30/2025 3:00 PM EDT Office Visit Pulmonary Medicine, [facility] [address] [place] [address] Krunal Sherwood MD [address] [facility] [place] [address] Health Maintenance Due Date Last Done Comments [...] Additional history exists CKD PHOS USE SMARTSET 98352 05/04/202504/10, 10/20/2022, 12/08/2021, Additional history exists Diabetic Foot Exam 06/05/2025 06/05/2024, 0 10/26/2022, 11/24/2021, Additional history exists TSH 07/24/2025 07/24/2024, 04/10, 04/05/2023, Additional history exists CKD HGB USE SMARTSET 19375 08/17/202508/17, 08/11/2024, 08/10/2024, Additional history exists Pneumococcal [...] hemoglobin A1c goal of less than 8.0% ([facility]) documented in this encounter Advance Directives * [...] Care Agent (per Health Care Power of Documentation Consultant document) DAVID Ryanne Adult Child Second Alternate Health Care Agent (per Health Care Power of Documentation Consultant document) Care Teams Developmental Mathematics Professor Relationship Specialty Start Date End Date Letitia Phoenix DO [address] [place] [address] PCP - General Family Medicine 06/02/18 documented as of this encounter
--- OUTSIDE RECORDS SUMMARY | 2024-09-16 22:36 | External Medical Summary ---
Author Name Unknown Address Unknown Organization K0G:[facility] [address] [place] [address] Laboratory Report Ordering Provider Test Date Status ROBERTO MCCORMICK 08/11/2024 08:20:29 Final Observation Date Value Abnormality Reference (Units ) Status WBC, Total 08/11/2024 08:20:29 4.93 4.00-10.8 0 (K/uL) Final RBC 08/11/2024 08:20:29 3.06 3.85-5.15 (M/uL) Final Hemoglobin 08/11/2024 08:20:29 8.7 Below low normal 12 .0-15.3 (g/dL) Final HCT 08/11/2024 08:20:29 27.9 Below low normal 36. 0-45.2 (%) Final MCV 08/11/2024 08:20:29 91.2 81.5-97.5 (fL) Final MCH 08/11/2024 08:20:29 28.4 27.0-34.0 (pg) Final MCHC 08/11/2024 08:20:29 31.2 32.0-36.0 (g/dL) Final RDW 08/11/2024 08:20:29 15.0 11.5-15.5 (%) Final Platelets 08/11/2024 08:20:29 360 140-400 (K /uL) Final MPV 08/11/2024 08:20:29 10.1 6.6-11.1 ( fL) Final Performing Location [facility] [address] [place] [address]
--- OUTSIDE RECORDS SUMMARY | 2024-09-16 22:36 | External Medical Summary | Summary of Care ---
Author Name Unknown Organization [facility] Address [address] [facility] [place] [address] Phone [phone] Care Team Providers Care Service Order Dispatcher Chief Name Role Phone TashiaChad godfrey Jorge Luis GAMEZ Primary Care Provider [phone] Reason for Visit * Reason Comments Blood Pressure Check Encounter Details Date Type Department Care Team (Late st Contact Info) Description 07/26/2024 3:40 PM EDT Office Visit [facility] [place] [address] [facility] [place] [address] Mary Ramirez DO [address] [facility] [place] [address] Bleeding from varicose veins of lower extremity, right*; Iron deficiency anemia due to chronic blood loss; Hypotension, unspecified hypotension type; Chronic atrial fibrillation ([facility]); Type 2 diabetes mellitus with diabetic mononeuropathy, without long-term current use of insulin ([facility]); Stage 4 chronic kidney disease ([facility]); Chronic congestive heart failure, unspecified heart failure type ([facility]); Chronic low back pain, unspecified back pain laterality, unspecified whether sciatica present Allergies Active Allergy Reactions Criticality Noted Date Comments Glipizide 02/18/2021 Dizzy, confusion Latex Rash 04/05/2024 Penicillins Rash 10/13/2001 documented as of this encounter (statuses as of 08/08/2024) Medications Medication Sig Dispensed Refills Start Date [...] to 180 days 1 Each 1 06/05/2024 07/26/20 24 Discontinu ed(Medicat ion List Clean Up) documented as of this encounter (statuses as of 08/08/2024) Active Problems Problem Noted Date Diagnosed Date [...] as of this encounter (statuses as of 08/08/2024) Resolved Problems Problem Noted Date Diagnosed Date Resolved Date Coronary artery disease invo lving [place] heart without angina pectoris 04/18/2019 10/29/2019 COPD, [...] 02/28/2012 08/29/2018 Overview: Per CKD protocol #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 Subjective: Tori May is a 89 year old female. Chief Complaint Patient presents with Blood Pressure Check HPI: Tori May presents for blood pressure check. Medications & HM reviewed. HD f/u from 07/23/2024. Had significant fairly high pressure bleeding from RLE varicose vein. Pressure dressing applied, Significant anemia. Currently bandaged and no longer bleeding. Was taken off blood thinner. BP has been low, lightheaded, dizzy, symptomatic. Has not held BP meds yet. No chest pain, shortness of breath, dyspnea on exertion, palpitations, orthopnea, paroxysmal nocturnal dyspnea, or other cardiac symptoms. No fevers, chills, nausea, vomiting, diarrhea, constipation, abdominal pain, or lethargy. PHM: Patient Active Problem List Diagnosis ADVANCE DIRECTIVE INFORMATION DYSLIPIDEMIA, GOAL LDL BELOW 100 Atrial fibrillation (HCC) Anticoagulation management encounter Type 2 diabetes mellitus with hemoglobin A1c goal of less than 8.0% (HCC) Heart failure, diastolic, due to HTN (HCC) Type 2 diabetes mellitus with diabetic chronic kidney disease (HCC) Essential hypertension with goal blood pressure less than 140/90 Cardiac pacemaker in situ Moderate mitral regurgitation by prior echocardiogram residential 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 therapy Hypertensive heart disease with diastolic heart failure and stage 3 chronic kidney disease (HCC) Acquired hypothyroidism Sensorineural hearing loss (SNHL) of right ear DAIN (obstructive sleep apnea) Pulmonary HTN (HCC) Hypertensive heart and kidney disease with chronic diastolic congestive heart failure and stage 3 chronic kidney disease (HCC) Hyperparathyroidism, secondary renal (HCC) Paroxysmal atrial fibrillation (HCC) Acute diastolic HF (heart failure) (HCC) Thrombocytopenia, unspecified (HCC) Type 2 diabetes mellitus with stage 3 chronic kidney disease, without long-term current use of insulin (HCC) Longstanding persistent atrial fibrillation (HCC) Chronic right-sided heart failure (HCC) Permanent atrial fibrillation (HCC) Stage 3b chronic kidney disease (HCC) CKD (chronic kidney disease) stage 4, GFR 15-29 ml/min (HCC) Nocturnal hypoxemia Acute respiratory failure with hypoxia (HCC) Current Outpatient Medications Medication Sig Dispense Refill Isosorbide Mononitrate ER 30 MG Oral Tablet Extended Release 24 Hour (Imdur) Take 0.5 Tablets by mouth in the morning. In the morning.. 45 Tablet 3 Magnesium Oxide 400 MG Oral Tablet Take 1 Tablet by mouth in the morning. Furosemide 40 MG Oral Tablet (Lasix) TAKE ONE TABLET BY MOUTH IN THE MORNING AND ONE TABLET BEFORE BEDTIME 180 Tablet 1 Rosuvastatin Calcium 20 MG Oral Tablet (Crestor) TAKE 1 TABLET BY MOUTH ONCE DAILY 90 Tablet 0 Metoprolol Succinate ER 100 MG Oral Tablet Extended Release 24 Hour (toPROL XL) TAKE 1 TABLET BY MOUTH TWICE DAILY 180 Tablet 1 Warfarin Sodium 5 MG Oral Tablet (Jantoven) Take 1/2 to 1 tablet by mouth daily as directed by [facility] coumadin clinic 90 Tablet 1 Januvia 50 MG Oral Tablet Take 1 Tablet by mouth in the morning. In the morning.. 30 Tablet 5 dilTIAZem HCl ER 240 MG Oral Capsule Extended Release 24 Hour TAKE 1 CAPSULE BY MOUTH ONCE DAILY 90Capsule 3 Montelukast Sodium 10 MG Oral Tablet (Singulair) TAKE 1 TABLET BY MOUTH EVERY MORNING 90 Tablet 3 Pantoprazole Sodium 40 MG Oral Tablet Delayed Release (Protonix) TAKE 1 TABLET BY MOUTH ONCE DAILY 90 Tablet 3 Levothyroxine Sodium 75 MCG Oral Tablet (Levoxyl) TAKE 1 TABLET BY MOUTH EVERY MORNING AT LEAST 30 MINUTES PRIOR TO BREAKFAST OR OTHER MEDICATIONS 90 Tablet 3 oxygen IN GAS Increase to 3 LPM bled through CPAP with all sleep. T and B medical 1 Each 0 Albuterol Sulfate (2.5 MG/3ML) 0.083% Inhalation Nebulization Solution (Proventil) Inhale 1 Vial via nebulizer every 4 hours as needed for Wheezing or Shortness of Breath. 90 mL 3 OneTouch Verio In Vitro Strip (Glucose Blood) test once daily Dx. E11.9 100 Strip 3 triamcinolone acetonide (ARISTOCORT) 0.1 % ointment Apply topically to affected area 2 times a day.To affected area on R external ear 60 g 0 acetaminophen (TYLENOL) 500 MG Tablet Take 1 Tablet by mouth every 4 hours as needed for Pain. Per [facility] dc summary 06/26/18 ONETOUCH ULTRASOFT LANCETS MISC Test up to 4 times daily 5 Box Dosing Unit 10 SPACER/AERO CHAMBER MOUTHPIECE MISC use with inhalers as instructed 1 Device 2 NEBULIZER MISC use every 8 hrs as directed 1 Units 0 No current facility-administered medications for this visit. Review of patient's allergies indicates: Allergen Reactions Glipizide Dizzy, confusion Latex Rash Penicillins Rash Objective: BP 92/54 | Pulse 62 | Temp 36.4 C (97.5 F) (Tympanic) | Resp 16 | SpO2 99% 10/11/2023 10/18/2023 11/09/2023 11/11/2023 04/05/2024 BP AND WT. Systolic 108 110 118 118 104 Diastolic 56 60 60 60 46 Weight 171 lb 6.4 oz 172 lb 9.9 oz 175 lb 175 lb 6.4 oz 178 lb 6.4 oz Height 59 in 58 in Pulse 62 91 75 86 64 04/26/2024 05/04/2024 06/05/2024 06/13/2024 07/26/2024 BP AND WT. Systolic 100 119 122 120 92 Diastolic 48 63 58 64 54 Weight 177 lb 180 lb 14.4 oz 176 lb 177 lb 14.6 oz Height 58 in 58 in 59 in Pulse 79 63 83 62 Physical Exam: General: alert, healthy, and no distress Head: Normocephalic, No masses, lesions, tenderness or abnormalities Eye Exam: PERRLA, extraocular movements intact, conjunctiva are pink and non- injected, sclera clear Oropharynx: no exudate, no erythema, lips, buccal mucosa, and tongue normal, and mucous membranes are moist Neck: supple, no adenopathy, no bruits, thyroid normal size, non-tender, without nodularity Heart: irregular rate & rhythm, no murmur, and no gallops Lungs: chest symmetric with normal AP diameter, no chest deformities noted, no chest wall tenderness, lungs clear to auscultation Pulses: carotid=2/4 w/o bruits Extremities: less than 2 second capillary refill, no joint deformities, effusion, or inflammation ASSESSMENT/PLAN: Significant bleed from varicose vein, has been taken off coumadin. Dressing in place has home health. Eating and drinking okay. Back home. Here with daughter. BPs are low and symptomatic. Hold evening metformin and will message cardiology for recommendations. Bleeding from varicose veins of lower extremity, right (Primary) Iron deficiency anemia due to chronic blood loss Hypotension, unspecified hypotension type Chronic atrial fibrillation (HCC) Type 2 diabetes mellitus with diabetic mononeuropathy, without long-term current use of insulin (HCC) Stage 4 chronic kidney disease (HCC) Chronic congestive heart failure, unspecified heart failure type (HCC) Chronic low back pain, unspecified back pain laterality, unspecified whether sciatica present 40 min spent with patient, reviewing history, performing physical exam, reviewing labs, studies, specialist OVNs, and reports, educating and coordinating care, discussing treatment Mary Ramirez DO documented in this encounter Nursing Notes * Donna Ibrahim LPN - 07/26/2024 3:52 PM EDT Tori May presents for blood pressure check. Medications & HM reviewed. documented in this encounter Plan of Treatment Upcoming Encounters Date Type Department Care Team (Late st Contact Info) Description 09/18/2024 8:40 AM EST Office Visit Podiatry [address] [place] [address] Bryanna Guzman, GIBRAN [address] [place] [address] 10/15/2024 3:00 PM EST Office Visit Cardiology, [facility] [address] [place] [address] Yeni Laureano CRNP [address] [place] [address] 01/02/2025 3:00 PM EDT Office Visit Family Practice [facility] [address] [facility] [place] [address] Chad Phoenix DO [address] [facility] [place] [address] 04/30/2025 3:00 PM EDT Office Visit Pulmonary Medicine, [facility] [address] [place] [address] Krunal Sherwood MD [address] [place] [address] Health Maintenance Due Date Last Done Comments [...] 05/04/2025 024, 10/26/2022, 12/08/2021, Additional history exists Diabetic Foot Exam 06/05/2025 06/05/2024, 0 10/26/2022, 11/24/2021, Additional history exists TSH 07/24/2025 07/24/2024, 04/10, 04/05/2023, Additional history exists Pneumococcal Vaccine: 65+ Years [...] as of this encounter Visit Diagnoses Diagnosis Bleeding from varicose veins of lower extremity, right- Primary Iron deficiency anemia due to chronic blood loss Iron deficiency anemia secondary to blood loss (chronic) Hypotension, unspecified hypotension type Chronic atrial fibrillation (HCC) Atrial fibrillation Type 2 diabetes mellitus with diabetic mononeuropathy, without long-term current use of insulin (HCC) Stage 4 chronic kidney disease (HCC) Chronic congestive heart failure, unspecified heart failure type (HCC) Chronic low back pain, unspecified back pain laterality, unspecified whether sciatica present documented in this encounter Advance Directives * [...] Care Agent (per Health Care Power of Fly Frame Tender document) DAVID JojoKHADRA Adult Child Second Alternate Health Care Agent (per Health Care Power of Fly Frame Tender document) Care Teams Service Order Dispatcher Chief Relationship Specialty Start Date End Date Chad Phoenix DO [address] [place] [address] PCP - General Family Medicine 06/02/18 documented as of this encounter"
--- OUTSIDE RECORDS SUMMARY | 2024-09-16 22:36 | External Medical Summary | Summary of Care ---
Author Name Unknown Organization [facility] Address [address] [facility] [place] [address] Phone [phone] Care Team Providers Care Circuit Recorder Name Role Phone Chad Phoenix DO Primary Care Provider [phone] Reason for Visit * Reason Onset Date Comments Home Health 08/14/2024 Encounter Details Date Type Department Care Team (Late st Contact Info) Description 08/14/2024 Telephone Family Practice [facility] [place] [address] [facility] [place] [address] Chad Phoenix DO [address] [facility] [place] [address] Home Health Allergies Active Allergy Reactions Criticality Noted Date Comments Glipizide 02/18/2021 Dizzy, confusion Latex Rash 04/05/2024 Penicillins Rash 10/13/2001 documented as of this encounter (statuses as of 08/14/2024) Medications Medication Sig Dispensed Refills Start Date [...] B, by GOLD 2017 classification ([facility]) Inhale 1 Vial via nebulizer [...] by mouth daily as directed by [facility] coumadin clinic 90 Tablet 1 04/25/2024 [...] the morning.. 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 documented as of this encounter (statuses as of 08/14/2024) Resolved Problems Problem Noted Date Diagnosed Date Resolved Date Coronary artery disease invo lving [place] heart without angina pectoris 04/18/2019 10/29/2019 COPD, [...] 02/28/2012 08/29/2018 Overview: Per CKD protocol #1 jail current use of 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 therapy 03/05/2011 [...] inactive term ADVANCE DIRECTIVE INFORMATION 06/17/2005 08/13/2024 Overview: Yes, Patient instructed to provide copy of advance directive for provider to review and to be scanned into Electronic Medical Record PURE HYPERCHOLESTEROLEM 11/30/200209/09 Overview: Per Lipid Taxonomy. Paroxysmal SVT (supraventricular tachycardia) 11/30/19 03 02/13/2019 HYPOTHYROIDISM NOS 11/30/2002 6 CARDIOVAS SYS SYMP NEC-carotid bruit 11/30/2002 04/13/2017 OBESITY, UNSPECIFIED 11/30/2002 010 Overview: Per Obesity Taxonomy Asthma, allergic 04/02/2010 CPAP (continuous positive ai rway pressure) dependence 03/07/2019 Overview: setting 4 documented as of this encounter (statuses as of 08/14/2024) Immunizations Name Administration Dates Next Due COVID-19 [...] Telephone Encounter - Chad Phoenix DO - 08/14/2024 1:08 PM EST Will discuss with visit. * Telephone Encounter - Celina Enriquez LPN - 08/14/2024 12:17 PM EST Admission/Start of Care Admission/Start of Care: Michelle RN, Calling from: [facility] Patient was Admitted to: [facility], for: Pulmonary Embolism from 07/30 to 08/06. [facility] from 08/06-08/13 Referral ordered by: Pablo Referral received for: Nursing Home, PT, and OT Planned start of care date:Yes, Date 08/14 Start of care completed on: 08/14/2024 Report/Concerns of:None Symptoms: none Vitals: T-97.9 P-67 RR-16 BP-120/74 SP O2-96% RA Lung sounds-Clear Weight-165.5 Blood sugar-N/A Narrative: Michelle needs documentation from Chad Phoenix DO on 08/17 Hospital F/u apt stating if patient should be checking BS. Please fax OV note to fax # below. Added to Disp note. Next Nursing visit(s) on 08/20 PT-OT - next week They will call with any updates or additional concerns from the upcoming HH visit. Last Office Visit: 07/26/2024 Has patient been scheduled or seen in the office for a follow up visit: Yes- on08/17/24 Advised that orders will be signed by Chad Phoenix DO and to fax to the office for signature. Please fax orders to [facility] Home Health Please address at 08/17 appt-BS checks or managed by A1C blood work? documented in this encounter Plan of Treatment Upcoming Encounters Date Type Department Care Team (Late st Contact Info) Description 08/17/2024 11:00 AM EST Office Visit [facility] [address] [place] [address] Chad Phoenix DO [address] [place] [address] 09/18/2024 8:40 AM EST Office Visit [facility] [place] [address] Bryanna Guzman DPM 132 [facility] [place] [address] 10/15/2024 3:00 PM EST Office Visit Cardiology, [facility] [address] [place] [address] Yeni Laureano CRNP 132 [place] [address] 01/02/2025 3:00 PM EDT Office Visit Family Practice [facility] [address] [facility] [place] [address] Chad Phoenix, DO [address] [facility] [place] [address] 04/30/2025 3:00 PM EDT Office Visit Pulmonary Medicine, [facility] [address] [place] [address] Krunal Sherwood MD [address] [place] [address] Health Maintenance Due Date Last Done Comments [...] Care Agent (per Health Care Power of Market Stall Vendor document) DAVID Pearl Adult Child Second Alternate Health Care Agent (per Health Care Power of Market Stall Vendor document) Care Teams Circuit Recorder Relationship Specialty Start Date End Date Chad Phoenix DO [address] [place] [address] PCP - General Family Medicine 06/02/18 documented as of this encounter
--- OUTSIDE RECORDS SUMMARY | 2024-09-16 22:36 | External Medical Summary ---
Author Name Unknown Address Unknown Organization K09:[facility] [place] [address] Laboratory Report Ordering Provider Test Date Status ROBERTO MCCORMICK 08/07/2024 13:11:09 Final Observation Date Value Abnormality Reference (Units ) Status BUN 08/07/2024 13:11:09 28 Above high normal 6-20 (mg/dL) Final Creatinine 08/07/2024 13:11:09 1.3 Above high normal 0.5-1.0 (mg/dL) Final Glomerular filtration rate/1.73 sq M.predicted [Volume Rate/Area] in Serum, Plasma or Blood by Creatinine-based formula (CKD-EPI) 08/07/2024 13:11:09 40 Below low normal >=60 (mL/min) Final eGFR is calculated based on the CKD-EPI 2020 equation. Sodium 08/07/2024 13:11:09 136 135-146 (m mol/L) Final Potassium 08/07/2024 13:11:09 4.4 3.5-5.1 (m mol/L) Final Cl 08/07/2024 13:11:09 96 Below low normal 98- 107 (mmol/L) Final CO2 08/07/2024 13:11:09 26 22-32 (mmo l/L) Final Anion gap 08/07/2024 13:11:09 14 7-15 (mmol /L) Final Glucose 08/07/2024 13:11:09 136 Above high normal 70 -120 (mg/dL) Final Calcium 08/07/2024 13:11:09 9.0 8.4-10.2 ( mg/dL) Final Performing Location [facility] [place] [address]
--- OUTSIDE RECORDS SUMMARY | 2024-09-16 22:36 | External Medical Summary | Summary of Care ---
Author Name Unknown Organization [facility] Address [address] [facility] [place] [address] Phone [phone] Care Team Providers Care Terrazzo Installer Name Role Phone Chad Phoenix DO Primary Care Provider [phone] Reason for Visit * Reason Onset Date Comments Letter Requests 08/02/2024 Encounter Details Date Type Department Care Team (Late st Contact Info) Description 08/02/2024 Telephone Family Practice [facility] [place] [address] [facility] [place] [address] Chad Phoenix DO [address] [place] [address] Letter Requests Allergies Active Allergy Reactions Criticality Noted Date Comments Glipizide 02/18/2021 Dizzy, confusion Latex Rash 04/05/2024 Penicillins Rash 10/13/2001 documented as of this encounter (statuses as of 08/07/2024) Medications Medication Sig Dispensed Refills Start Date [...] ns:COPD, group B, by GOLD 2017 classification ([facility] [...] as of this encounter (statuses as of 08/07/2024) Active Problems Problem Noted Date Diagnosed Date [...] regurgitation by prior echocardi ogram 10/18/2017 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 This has been addressed. * Telephone Encounter - Pura Huffman OSA - 08/02/2024 8:53 AM EDT Type of letter requested: FMLA update Does the letter need to provide any specific information: The patient is currently admitted and thedaughter is asking for her FMLA to be updated to state 5 days a week per incident. Would you like letter faxed or picked up?: pick up man Fax number: Number to be called when ready to be picked up: [phone] Date needed: as soon as possible. documented in this encounter Plan of Treatment Upcoming Encounters Date Type Department Care Team (Late st Contact Info) Description 09/18/2024 8:40 AM EST Office Visit Podiatry [facility] [address] [place] [address] Bryanna Guzman DPM [facility] [place] [address] 10/15/2024 3:00 PM EST Office Visit Cardiology, [facility] [address] [place] [address] Yeni Laureano CRNP [address] [place] [address] 01/02/2025 3:00 PM EDT Office Visit Family Practice [facility] [place] [address] [place] [address] Chad Phoenix DO [address] [facility] [address] [place] [address] 04/30/2025 3:00 PM EDT Office Visit Pulmonary Medicine, [facility] [place] [address] Krunal Sherwood MD [address] [place] [address] Health Maintenance Due Date Last Done [...] Care Agent (per Health Care Power of Advertising Sales Executive document) DAVID Pearl Adult Child Second Alternate Health Care Agent (per Health Care Power of Advertising Sales Executive document) Care Teams Terrazzo Installer Relationship Specialty Start Date End Date Chad Phoenix DO [address] [place] [address] PCP - General Family Medicine 06/02/18 documented as of this encounter
--- OUTSIDE RECORDS SUMMARY | 2024-09-16 22:36 | External Medical Summary | Summary of Care ---
Author Name Unknown Organization [facility] Address [address] [facility] [place] [address] Phone [phone] Care Team Providers Care Tension Machine Operator Name Role Phone Chad Phoenix DO Primary Care Provider [phone] Reason for Visit * Reason Onset Date Comments Advice 08/21/2024 Encounter Details Date Type Department Care Team (Late st Contact Info) Description 08/21/2024 Telephone Family Practice [facility] [place] [address] [facility] [place] [address] Chad Phoenix DO [address] [facility] [place] [address] Advice Allergies Active Allergy Reactions Criticality Noted Date Comments Glipizide 02/18/2021 Dizzy, confusion Latex Rash 04/05/2024 Penicillins Rash 10/13/2001 Quetiapine Other (Please comment) 08/17/2024 Severe fatigue documented as of this encounter (statuses as of 08/21/2024) Medications NEBULIZER MISCIndications:Ac stebbins bronchitis, complicated use every 8 hrs as [...] ions:COPD, group B, by GOLD 2017 classification ([facility]) Inhale 1 Vial via nebulizer every 4 [...] unspecified whether stage 3a or 3b CKD ([facility]) Take 1 Tablet by mouth in the morning. In the morning.. 30 Tablet 5 02/01/20 24 Active Furosemide 40 MG Oral Tablet (Lasix)Indications :Heart failure, diastolic, due to HTN ([facility]) TAKE ONE TABLET BY MOUTH IN THE [...] 1 Tablet before bedtime. 08/13/20 24 Active My-AppsTouch Verio w/Device KitIndications:Typ e 2 diabetes mellitus with hemoglobin A1c goal of less than 8.0% (HCC) Use up to 4 times a day E11.9 1 Kit 08/17/20 Active OneTouch Verio In Vitro Strip (Glucose Blood)Indications: Type 2 diabetes mellitus with hemoglobin A1c goal of less than 8.0% (HCC) Use up to 4 times a day E11.9 100 Strip 11 08/17/20 Active My-AppsTouch UltraSoft LancetsIndications :Type 2 diabetes mellitus with hemoglobin A1c goal of less than 8.0% (HCC) Use up to four times a day as directed E11.9 100 Each 5 08/17/20 24 Active Rosuvastatin Calcium 20 MG Oral Tablet (Crestor) TAKE 1 TABLET BY MOUTH ONCE DAILY 90 Tablet 3 08/20/20 Active documented as of this encounter (statuses as of 08/21/2024) Active Problems Problem Noted Date Diagnosed Date [...] mitral regurgitation by prior echocardi ogram 10/18/2017 [facility] 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 therapy 0 10/18/2017 [...] as of this encounter (statuses as of 08/21/2024) Resolved Problems Problem Noted Date Diagnosed Date Resolved Date Coronary artery disease invo 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 Just fy. documented in this encounter Plan of Treatment Upcoming Encounters Date Type Department Care Team (Late st Contact Info) Description 09/18/2024 8:40 AM EST Office Visit Podiatry [facility] [address] [place] [address] Bryanna Guzman DPM [address] [place] [address] 10/15/2024 3:00 PM EST Office Visit Cardiology, [facility] [address] [place] [address] Yeni Laureano CRNP [address] [place] [address] 01/02/2025 3:00 PM EDT Office Visit Family Practice [facility] [address] [facility] [place] [address] Chad Phoenix, [address] [facility] [place] [address] 04/30/2025 3:00 PM EDT Office Visit Pulmonary Medicine, [facility] [address] [place] [address] Krunal Sherwood MD [address] [place] [address] Health Maintenance Due Date Last Done Comments Adult Wellness Visit 04/15/2022 04/15/2021 Diabetic Eye Exam 06/06/2024 06/06/2023, , 12/06/2022, Additional history exists COVID-19 Vaccine ( season) 2024 09/23/2021, 12/09/2020, 11/11/2020 Zoster Vaccines (2 of 2) 07/31/2024 06/05/2024 DTap/Tdap Vaccines (2 - Td or Tdap) 09/02/2024 09/02/2014 Depression Screening 09/21/2024 09/21/2023 HbA1c 11/04/2024 05/04/2024, 0111/2023, 04/05/2023, Additional history exists Albumin/Creatinine Ratio 05/04/2025 [...] Care Agent (per Health Care Power of Senior Mortgage Underwriter document) DAVID Pearl Adult Child Second Alternate Health Care Agent (per Health Care Power of Senior Mortgage Underwriter document) Care Teams Tension Machine Operator Relationship Specialty Start Date End Date Chad Phoenix DO [address] [place] [address] PCP - General Family Medicine 06/02/18 documented as of this encounter
--- OUTSIDE RECORDS SUMMARY | 2024-09-16 22:36 | External Medical Summary | Summary of Care ---
Author Name Unknown Organization [facility] Address [address] [facility] [place] [address] Phone [phone] Care Team Providers Care Inventory Control Supervisor Name Role Phone Chad Phoenix DO Primary Care Provider [phone] Reason for Visit * Reason Onset Date Comments Advice 08/06/2024 Letter Requests 08/06/2024 Encounter Details Date Type Department Care Team (Late st Contact Info) Description 08/06/2024 Telephone Family Practice [facility] [place] [address] [facility] [place] [address] Chad Phoenix DO 200 [place] [address] Advice; Letter Requests Allergies Active Allergy Reactions Criticality Noted Date Comments Glipizide 02/18/2021 Dizzy, confusion Latex Rash 04/05/2024 Penicillins Rash 10/13/2001 documented as of this encounter (statuses as of 08/06/2024) Medications Medication Sig Dispensed Refills Start Date [...] B, by GOLD 2017 classification ([facility]) Inhale 1 Vial via nebulizer every 4 [...] by mouth daily as directed by [facility] 90 Tablet 1 04/25/2024 Active [...] as of this encounter (statuses as of 08/06/2024) Active Problems Problem Noted Date Diagnosed Date [...] regurgitation by prior echocardi ogram 10/18/2017 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 Called Grace making her aware. * Telephone Encounter - Chad Phoenix DO - 08/06/2024 2:02 PM EDT I'll put the letter on your desk * Telephone Encounter - Karolyn Holder LPN - 08/06/2024 1:25 PM EDT Spoke with Grace, patients daughter. Patient was discharged today from [facility] and transferred to [facility]. Grace had FMLA paperwork filled out on 01/12 for up to 3 days a month, but she now requesting unlimited days. Grace was going to take this week off, but her employer won't allow it due to the current FMLA paperwork. Tori isn't able to stand on her own, very weak at this time. Are you willing to increase the occurrence frequency that Grace will need to provider care for her mother? Grace states that a new FMLA form doesn't need completed, just a letter stating the increased frequency approved on letter head. Absence management fax # [phone] * Telephone Encounter - Yudith Malhotra OSA - 08/06/2024 1:23 PM EDT Reason for patient's call: Daughter called in asking to speak to the nurse Caller was transferred to [facility] at the nurse line. documented in this encounter Plan of Treatment Upcoming Encounters Date Type Department Care Team (Late st Contact Info) Description 09/18/2024 8:40 AM EST Office Visit Podiatry [facility] [address] [place] [address] Bryanna Guzman DPM [address] [place] [address] 10/15/2024 3:00 PM EST Office Visit Cardiology, [facility] [place] [address] Yeni Laureano CRNP [address] [place] [address] 01/02/2025 3:00 PM EDT Office Visit Family Practice [facility] [address] [place] [address] Chad Phoenix, [address] [facility] [place] [address] 04/30/2025 3:00 PM EDT Office Visit Pulmonary Medicine, [facility] [address] [facility] [place] [address] Krunal Sherwood MD [address] [place] [address] Health Maintenance Due Date Last Done Comments [...] Care Agent (per Health Care Power of Sap Mobility Architect document) GRACE Ryanne Adult Child Second Alternate Health Care Agent (per Health Care Power of Sap Mobility Architect document) Care Teams Inventory Control Supervisor Relationship Specialty Start Date End Date Chad Phoenix DO [address] [place] [address] PCP - General Family Medicine 06/02/18 documented as of this encounter
--- OUTSIDE RECORDS SUMMARY | 2024-09-16 22:36 | External Medical Summary | Summary of Care ---
Author Name Unknown Organization [facility] Address [address] [facility] [place] [address] Phone [phone] Care Team Providers Care Entry Level Java Developer Name Role Phone Chad Phoenix DO Primary Care Provider [phone] Reason for Visit * Reason Onset Date Comments Advice 08/06/2024 Letter Requests 08/06/2024 Encounter Details Date Type Department Care Team (Late st Contact Info) Description 08/06/2024 Telephone Family Practice [facility] [place] [address] [facility] [place] [address] Chad Phoenix DO 200 [place] [address] Advice; Letter Requests Allergies Active Allergy Reactions [...] mitral regurgitation by prior echocardi ogram 10/18/2017 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 Patient was discharged today from [facility] and transferred to [facility]. Grace had FMLA paperwork filled out [...] on letter head. Absence management fax # [phone] * Telephone Encounter - Yudith Malhotra OSA - 08/06/2024 1:23 PM EDT Reason for patient's call: Daughter called in asking to speak to the nurse Caller was transferred to [facility] at the nurse line. documented in this encounter Plan of Treatment Upcoming Encounters Date Type Department Care Team (Late st Contact Info) Description 09/18/2024 8:40 AM EST Office Visit Podiatry [facility] [address] [place] [address] Bryanna Guzman DPM [address] [place] [address] 10/15/2024 3:00 PM EST Office Visit [facility]iology, [facility] [place] [address] Yeni Laureano CRNP [address] [place] [address] 01/02/2025 3:00 PM EDT Office Visit Family Practice [facility] [address] [place] [address] Chad Phoenix, [address] [facility] [place] [address] 04/30/2025 3:00 PM EDT Office Visit Pulmonary Medicine, [facility] [address] [facility] [place] [address] Krunal Sherwood MD [address] [place] [address] Health Maintenance Due Date Last Done Comments [...] Agent (per Health Care Power of Supervisor Sterile Processing document) GRACE Ryanne Adult Child Second Alternate Health Care Agent (per Health Care Power of Supervisor Sterile Processing document) Care Teams Entry Level Java Developer Relationship Specialty Start Date End Date Chad Phoenix DO [address] [place] [address] PCP - General Family Medicine 06/02/18 documented as of this encounter
--- OUTSIDE RECORDS SUMMARY | 2024-09-16 22:36 | External Medical Summary ---
Author Name Unknown Address Unknown Organization [facility] [address] [place] [address] Laboratory Report Ordering Provider Test Date Status ROBERTO MCCORMICK 08/10/2024 06:42:27 Final Observation Date Value Abnormality Reference (Units ) Status BUN 08/10/2024 06:42:27 37 Above high normal 6-20 (mg/dL) Final Creatinine 08/10/2024 06:42:27 1.2 Above high normal 0.5-1.0 (mg/dL) Final Glomerular filtration rate/1.73 sq M.predicted [Volume Rate/Area] in Serum, Plasma or Blood by Creatinine-based formula (CKD-EPI) 08/10/2024 06:42:27 42 Below low normal >=60 (mL/min) Final eGFR is calculated based on the CKD-EPI 2020 equation. Sodium 08/10/2024 06:42:27 139 135-146 (m mol/L) Final Potassium 08/10/2024 06:42:27 4.2 3.5-5.1 (m mol/L) Final Cl 08/10/2024 06:42:27 100 98-107 (mm ol/L) Final CO2 08/10/2024 06:42:27 27 22-32 (mmo l/L) Final Anion gap 08/10/2024 06:42:27 12 7-15 (mmol /L) Final Glucose 08/10/2024 06:42:27 109 70-120 (mg /dL) Final Albumin 08/10/2024 06:42:27 3.3 Below low normal 3.8 -5.0 (g/dL) Final AST (Aspartate aminotransferase) 08/10/2024 06:42:27 51 Above high normal 10-35 (U/L) Final Alk Phos 08/10/2024 06:42:27 231 Above high normal 35 -130 (U/L) Final Bilirubin, Total 08/10/2024 06:42:27 0.3 <=1 .2 (mg/dL) Final Calcium 08/10/2024 06:42:27 9.0 8.4-10.2 ( mg/dL) Final Protein 08/10/2024 06:42:27 5.6 Below low normal 6.0 -8.3 (g/dL) Final ALT (Alanine aminotransferase) 08/10/2024 06:42:27 50 Above high normal 10-35 (U/L) Final Performing Location [facility] [address] [place] [address]
--- OUTSIDE RECORDS SUMMARY | 2024-09-16 22:36 | External Medical Summary ---
Author Name Unknown Address Unknown Organization [facility] [place] [address] Laboratory Report Ordering Provider Test Date Status ROBERTO MCCORMICK 08/10/2024 08:00:03 Final Observation Date Value Abnormality Reference (Units ) Status Color of Urine by Auto 08/10/2024 08:00:03 Yellow Light Yellow, Yellow, Dark Yellow Final Clarity, Urine 08/10/2024 08:00:03 Clear Clear Final Glucose [Mass/volume] in Urine by Automated test strip 08/10/2024 08:00:03 Negative Negative (mg/dL) Final Bilirubin.total [Presence] in Urine by Automated test strip 08/10/2024 08:00:03 Negative Negative Final Ketones [Mass/volume] in Urine by Automated test strip 08/10/2024 08:00:03 Negative Negative (mg/dL) Final Specific gravity, Urine 08/10/2024 08:00:03 1.015 1.003-1.030 Final Hemoglobin [Presence] in Urine by Automated test strip 08/10/2024 08:00:03 Trace Abnormal Negative Final pH, Urine 08/10/2024 08:00:03 6.0 5.0-7.5 (Units) Final Protein [Mass/volume] in Urine by Automated test strip 08/10/2024 08:00:03 Negative Negative (mg/dL) Final Urobilinogen [Mass/volume] in Urine by Automated test strip 08/10/2024 08:00:03 0.2 0.2, 1.0 (mg/dL) Final Nitrite [Presence] in Urine by Automated test strip 08/10/2024 08:00:03 Negative Negative Final Leukocyte esterase [Presence] in Urine by Automated test strip 08/10/2024 08:00:03 Negative Negative Final RBC, Urine 08/10/2024 08:00:03 0-2 0-2 (/HPF) Final WBC, Urine 08/10/2024 08:00:03 0-2 0-2 (/HPF) Final Bacteria [#/area] in Urine sediment by Microscopy high power field 08/10/2024 08:00:03 0-25 0-25 (/HPF) Final Performing Location [facility] [address] [place] [address]
--- OUTSIDE RECORDS SUMMARY | 2024-09-16 22:36 | External Medical Summary | Summary of Care ---
Author Name Unknown Organization [facility] Address [address] [facility] [place] [address] Phone [phone] Care Team Providers Care Labor Training Manager Name Role Phone JorgitoLetitia hager Primary Care Provider [phone] Reason for Visit * Reason Comments eRx-Medication Refill Encounter Details Date Type Department Care Team (Late st Contact Info) Description 08/17/2024 Refill Family Practice [facility] [place] 200 [place] [address] Jcarlos Le III, MD 200 [place] [address] Allergies Active Allergy Reactions Criticality Noted Date Comments Glipizide 02/18/2021 Dizzy, confusion Latex Rash 04/05/2024 Penicillins Rash 10/13/2001 Quetiapine Other (Please comment) 08/17/2024 Severe fatigue documented as of this encounter (statuses as of 08/20/2024) Medications NEBULIZER MISCIndications:A cute bronchitis, complicated use [...] tions:COPD, group B, by GOLD 2017 classification ([facility]) Inhale 1 Vial via nebulizer every 4 hours as needed for Wheezing or Shortness of Breath. 90 mL 3 023 Active oxygen IN GAS Increase to 3 LPM bled through CPAP with all sleep. T and B medical 1 Each 023 Active Levothyroxine Sodium 75 MCG Oral Tablet (Levoxyl)Indicati ons:Acquired hypothyroidism TAKE 1 TABLET BY MOUTH EVERY MORNING AT LEAST 30 MINUTES PRIOR TO BREAKFAST OR OTHER MEDICATIONS 90 Tablet 3 023 Active Pantoprazole Sodium 40 MG Oral [...] unspecified whether stage 3a or 3b CKD ([facility]) Take 1 Tablet by mouth in the morning. In the morning.. 30 Tablet 5 024 Active Furosemide 40 MG Oral Tablet (Lasix)Indication s:Heart failure, diastolic, due to HTN ([facility]) TAKE ONE TABLET BY MOUTH IN THE MORNING AND ONE TABLET BEFORE BEDTIME 180 Tablet 1 024 Active Magnesium Oxide 400 MG Oral Tablet Take 1 Tablet by mouth in the morning. 024 Active Isosorbide Mononitrate ER 30 MG Oral Tablet Extended Release 24 Hour (Imdur) Take 0.5 Tablets by mouth in the morning. In the morning.. 45 Tablet 3 Active Additional Information Patient taking differently: 30 mgOral Daily(AM), In the morning., Reported on 08/17/2024 Metoprolol Succinate ER 50 MG Oral Tablet Extended Release 24 Hour (toPROL XL) Take 1 Tablet by mouth in the morning and 1 Tablet before bedtime. Active Eliquis 5 MG Oral Tablet Take 1 Tablet by mouth in the morning and 1 Tablet before bedtime. Active BiletuTouch Verio w/Device KitIndications:Ty pe 2 diabetes mellitus with hemoglobin A1c goal of less than 8.0% (HCC) Use up to 4 times a day E11.9 1 Kit Active OneTouch Verio In Vitro Strip (Glucose Blood)Indications :Type 2 diabetes mellitus with hemoglobin A1c goal of less than 8.0% (HCC) Use up to 4 times a day E11.9 100 Strip 11 Active BiletuTouch UltraSoft LancetsIndication s:Type 2 diabetes mellitus with hemoglobin A1c goal of less than 8.0% (HCC) Use up to four times a day as directed E11.9 100 Each 5 Active Rosuvastatin Calcium 20 MG Oral Tablet (Crestor) TAKE 1 TABLET BY MOUTH ONCE DAILY 90 Tablet 3 Active Rosuvastatin Calcium 20 MG Oral Tablet (Crestor) TAKE 1 TABLET BY MOUTH ONCE DAILY 90 Tablet 024 2023 Discontinued documented as of this encounter (statuses as of 08/20/2024) Active Problems Problem Noted Date Diagnosed Date [...] mitral regurgitation by prior echocardi ogram 10/18/2017 custodial 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 therapy 0 10/18/2017 [...] as of this encounter (statuses as of 08/20/2024) Resolved Problems Problem Noted Date Diagnosed Date [...] 08/29/2018 Overview (03/02/2012): Per CKD protocol #1 oil heaterman current use of 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 therapy 03/05/2011 [...] as of this encounter (statuses as of 08/20/2024) Immunizations Name Administration Dates Next Due COVID-19 [...] Telephone Encounter - Letitia Posey DO - 08/20/2024 12:49 PM ESTSigned Prescriptions: Disp Refills Rosuvastatin Calcium 20 MG Oral Tablet (Cr*90 Tab*3 Sig: TAKE 1 TABLET BY MOUTH ONCE DAILY Authorizing Provider: LETITIA POSEY * Telephone Encounter - Falguni Olivera [facility] - 08/20/2024 7:39 AM ESTPending Prescriptions: Disp Refills Rosuvastatin Calcium 20 MG Oral Tablet (Cr*90 Tab*3 Sig: TAKE 1 TABLET BY MOUTH ONCE DAILY * Telephone Encounter - Falguni Olivera [facility] - 08/20/2024 7:38 AM EST Please advise. Max dose patient should be on is 10 mg daily. However, do not see any recent reportsof muscle pain. Serum creatinine: 1.2 mg/dL (H) 08/17/24 1203 Estimated creatinine clearance: 28 mL/min (A) Falguni Stover Clinical Pharmacist [facility] [phone] 08/20/2024, 7:38 AM * Telephone Encounter - Interface, [facility] - 08/19/2024 2:57 PM EST Pending Prescriptions: Disp Refills Rosuvastatin Calcium 20 MG Oral Tablet [Ph*90 Tab*0 Sig: TAKE 1TABLET BY MOUTH ONCE DAILY documented in this encounter Plan of Treatment Upcoming Encounters Date Type Department Care Team (Late st Contact Info) Description 09/18/2024 8:40 AM EST Office Visit Podiatry [facility] [address] [place] [address] Bryanna Guzman DPM [address] [address] 10/15/2024 3:00 PM EST Office Visit Cardiology, [facility] 132 [facility] [place] [address] Yeni Laureano CRNP 132 [facility] [place] [address] 01/02/2025 3:00 PM EDT Office Visit Family Practice [facility] [place] [address] Letitia Posey, 200 [place] [address] 04/30/2025 3:00 PM EDT Office Visit Pulmonary Medicine, [facility] [place] [address] Krunal Sherwood MD [address] [place] [address] Health Maintenance Due Date Last Done Comments [...] 07/24/2025 07/24/2024, 07/03/2024, 04/05/2023, Additional history exists Pneumococcal Vaccine: 65+ [...] Care Agent (per Health Care Power of Ingot Header document) DAVID Pearl Adult Child Second Alternate Health Care Agent (per Health Care Power of Ingot Header document) Care Teams Labor Training Manager Relationship Specialty Start Date End Date Letitia Posey DO [address] [place] [address] PCP - General Family Medicine 06/02/18 documented as of this encounter
--- OUTSIDE RECORDS SUMMARY | 2024-09-16 22:36 | External Medical Summary | Summary of Care ---
Author Name Unknown Organization [facility] Address [address] [place] [address] Phone [phone] Care Team Providers Care Cook Helper Name Role Phone Chad Phoenix DO Primary Care Provider [phone] Reason for Visit * Reason Onset Date Comments Hospital Follow-Up Hospital Follow-Up 08/17/2024 Medication Administration 08/17/2024 Flu an d/or Pneumo Inj Encounter Details Date Type Department Care Team (Late st Contact Info) Description 08/17/2024 11:00 AM EST Office Visit [facility] [address] [facility] [place] [address] Chad Phoenix DO [address] [facility] [place] [address] Type 2 diabetes mellitus with hemoglobin A1c goal of less than 8.0% ([facility])*; Other acute pulmonary embolism without acute cor pulmonale ([facility]); Acute on chronic diastolic CHF (congestive heart failure) ([facility]); Hospital discharge follow-up; Need for prophylactic vaccination and inoculation against influenza Allergies Active Allergy Reactions Criticality Noted Date Comments Glipizide 02/18/2021 Dizzy, confusion Latex Rash 04/05/2024 Penicillins Rash 10/13/2001 Quetiapine Other (Please comment) 08/17/2024 Severe fatigue documented as of this encounter (statuses as of 08/20/2024) Medications NEBULIZER MISCIndications:Ac vandana bronchitis, complicated use [...] morning.. 30 Tablet 5 02/01/20 24 Active Rosuvastatin Calcium 20 MG Oral Tablet (Crestor) TAKE 1 TABLET BY MOUTH ONCE DAILY 90 Tablet 05/24/20 24 Active Furosemide 40 MG Oral Tablet [...] 1 Tablet before bedtime. 08/13/20 24 Active ROVOPTouch Verio w/Device KitIndications:Typ e 2 diabetes mellitus with hemoglobin A1c goal of less than 8.0% ([facility]) Use up to 4 times a day E11.9 1 Kit 08/17/20 24 Active ROVOPTouch Verio In Vitro Strip (Glucose Blood)Indications: Type 2 diabetes mellitus with hemoglobin A1c goal of less than 8.0% (HCC) Use up to 4 times a day E11.9 100 Strip 11 08/17/20 24 Active ROVOPTouch UltraSoft LancetsIndications :Type 2 diabetes mellitus with hemoglobin A1c goal of less than 8.0% ([facility]) Use up to four times a day as directed E11.9 100 Each 5 08/17/20 24 Active dilTIAZem HCl ER 240 MG Oral Capsule Extended Release 24 HourIndications:Lo ngstanding persistent atrial fibrillation (HCC) TAKE 1 CAPSULE BY MOUTH ONCE DAILY 90 Capsule 3 01/27/20 24 024 Discontin ued(End of Procedure ) Metoprolol Succinate ER 100 MG Oral Tablet Extended Release 24 Hour (toPROL XL) TAKE 1 TABLET BY MOUTH TWICE DAILY 180 Tablet 1 04/25/20 24 024 Discontin ued(Medic ation/Dos e Changed) Warfarin Sodium 5 MG Oral Tablet (Jantoven)Indicati ons:Persistent atrial fibrillation (HCC) Take 1/2 to 1 tablet by mouth daily as directed by [facility] [address] coumadin [facility] 90 Tablet 1 04/25/20 24 024 Discontin ued(End of Procedure ) documented as of this encounter (statuses as [...] Resolved Date Coronary artery disease invo lving [place] heart without angina pectoris 04/18/2019 10/29/2019 COPD, [...] 08/29/2018 Overview (03/02/2012): Per CKD protocol #1 terminal clerk current use of 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 therapy 03/05/2011 [...] Sign Reading Time Taken Comments Blood Pressure 102/60 08/17/2024 11:05 AM EST Pulse 67 08/17/2024 11:05 AM EST Temperature 36.3 C (97.3 F) 08/17/2024 11:[address] Respiratory Rate 20 08/17/2024 11:05 AM EST Oxygen Saturation 97% 08/17/2024 11:05 AM EST Inhaled Oxygen Concentration - - Weight 76.2 kg (168 lb) 08/17/2024 11:05 AM EST Height - - Body Mass Index 34.33 06/13/2024 2:20 PM EDT documented in this encounter Progress Notes * Mitzi Ortiz LPN - 08/17/2024 12:05 PM EST PRE - ADMINISTRATION DOCUMENTATION Are you experiencing any cold symptoms or fever? No Have you had Guillain-[place] Syndrome (an illness that causes paralysis) within the last 6 weeks? No Have you had the flu shot in the past? YES Have you ever had a reaction to the flu shot? No Mitzi Ortiz LPN, 08/17/2024 12:05 PM Immunization Administration Documentation Time Out Procedure Performed: Yes Patient Identified (Ask Name/Date of ): Yes Does the patient have a fever greater than 101 degrees today? No Patient allergic to latex? No VFC Stock: No Immunization(s) verified: Yes, Immunization Name: Flu, VIS Sheet(s) given: Yes Verified Side and Site: Yes Verified Shot(s) with Parent(s)/Patient: Yes * Chad Phoenix DO - 08/17/2024 11:17 AM EST Subjective: Tori May is a 89 year old female. Chief Complaint Patient presents with Hospital Follow-Up HPI: PT admitted on 07/30 and discharged on 08/06. She was then sent to [facility] until 08/13. She felt poorly since returning home from a [facility] hospitalization for anemia from a bleeding varicose vein. Her coumadin has been stopped because of this. She also felt SOB. Per report she was also sleeping extended periods on Seroquel. On admission CT she had a right sided PE. She was started on Eliquis.Volume status was considered at baseline. She was sent to [facility] after that. BAck home now and doing okay. BP a little low since discharge. One episode of feeling dizzy. [place] and drinking fluids. Sleeping okay now. No bleeding in gum, urine or stool. She feels okay, breathing okay. BP sometimes low. We reviewed her heart meds. No falls since the hospital. DM discussed, They lost her meter. Will get a new one but does not need to check in constantly. Just as needed. Will get flu shot today PMHx, meds, and allergies reviewed Patient Active Problem List Diagnosis DYSLIPIDEMIA, GOAL LDL BELOW 100 Atrial fibrillation ([facility]) Anticoagulation management encounter Type 2 diabetes mellitus with hemoglobin A1c goal of less than 8.0% ([facility]) Heart failure, diastolic, due to HTN ([facility]) Type 2 diabetes mellitus with diabetic chronic kidney disease ([facility]) Essential hypertension with goal blood pressure less than 140/90 Cardiac pacemaker in situ Moderate mitral regurgitation by prior echocardiogram halfway 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 therapy Hypertensive heart [...] fibrillation (HCC) Acute diastolic HF (heart failure) ([facility]) Thrombocytopenia, unspecified (HCC) Type 2 [...] BY MOUTH ONCE DAILY 90 Tablet 3 Montelukast Sodium 10 MG Oral Tablet (Singulair) TAKE 1 TABLET BY MOUTH EVERY MORNING 90 Tablet 3 Januvia 50 MG Oral Tablet Take 1 Tablet by mouth in the morning. In the morning.. 30 Tablet 5 Rosuvastatin Calcium 20 MG Oral Tablet (Crestor) TAKE 1 TABLET BY MOUTH ONCE DAILY 90 Tablet 0 Furosemide 40 MG Oral Tablet (Lasix) TAKE ONE TABLET BY MOUTH IN THE MORNING AND ONE TABLET BEFORE BEDTIME 180 Tablet 1 Magnesium Oxide 400 MG Oral Tablet Take 1 Tablet by mouth in the morning. Isosorbide Mononitrate ER 30 MG Oral Tablet Extended Release 24 Hour (Imdur) Take 0.5 Tablets by mouth in the morning. In the morning.. (Patient taking differently: Take 1 Tablet by mouth in the morning. In the morning..) 45 Tablet 3 Metoprolol Succinate ER 50 MG Oral Tablet Extended Release 24 Hour (toPROL XL) Take 1 Tablet by mouth in the morning and 1 Tablet before bedtime. Eliquis 5 MG Oral Tablet Take 1 Tablet by mouth in the morning and 1 Tablet before bedtime. acetaminophen (TYLENOL) 500 MG Tablet Take 1 Tablet by mouth every 4 hours as needed for Pain. Per [facility] dc summary 06/26/18 No current facility-administered medications for this visit. Review of patient's allergies indicates: Allergen Reactions Glipizide Dizzy, confusion Latex Rash Penicillins Rash Seroquel [Quetiapine] Other (Please comment) Severe fatigue OBJECTIVE: BP 98/50 | Pulse 67 | Temp 36.3 C (97.3 F) (Tympanic) | Resp 20 | Wt 76.2 kg (168 lb) | SpO2 97% | BMI 34.33 kg/m | BSA 1.78 m Estimated body mass index is 34.33 kg/m as calculated from the following: Height as of 06/13/24: 1.49 m (4' 10.66"). Weight as of this encounter: 76.2 kg (168 lb). BP Readings from Last 3 Encounters: 08/17/24 98/50 07/26/24 92/54 06/13/24 120/64 Wt Readings from Last 3 Encounters: 08/17/24 76.2 kg (168 lb) 06/13/24 80.7 kg (177 lb 14.6 oz) 06/05/24 79.8 kg (176 lb) ROS: Negative except for above PHYSICAL EXAM: General: alert, healthy, and no distress Head: Normocephalic, No masses, lesions, tenderness or abnormalities Heart: regular rate & rhythm, no murmur, and no gallops Lungs: chest symmetric with normal AP diameter, no chest deformities noted, no chest wall tenderness, lungs clear to auscultation Abdomen: abdomen soft, non-tender, normal bowel sounds, and no masses or organomegaly Extremities: less than 2 second capillary refill, no joint deformities, effusion, or inflammation ASSESSMENT/Plan Type 2 diabetes mellitus with hemoglobin A1c goal of less than 8.0% ([facility]) (Primary) - ROVOPTouch Verio w/Device Kit; Use up to 4 times a day E11.9 - ROVOPTouch Verio In Vitro Strip (Glucose Blood); Use up to 4 times a day E11.9 - ROVOPTouch UltraSoft Lancets; Use up to four times a day as directed E11.9 Other acute pulmonary embolism without acute cor pulmonale (HCC) - DISCH MED RECON CUR MED LIS - CBC; Future; Expected date: 08/17/2024 - CBC Acute on chronic diastolic CHF (congestive heart failure) (HCC) - DISCH MED RECON CUR MED LIS - COMPREHENSIVE METABOLIC PANEL; Future; Expected date: 08/17/2024 - CBC; Future; Expected date: 08/17/2024 - COMPREHENSIVE METABOLIC PANEL - CBC Hospital discharge follow-up - DISCH MED RECON CUR MED LIS Need for prophylactic vaccination and inoculation against influenza - INFLUENZA VAC., TRIVALENT, HD, PF, 65 AND ABOVE, 0.5 ML IM (FLUZONE HD) I spent a total of 40 minutes on the date of service in preparation, delivery, and documentation ofthe care provided to this patient, excluding any time spent on the performance of any procedure or separately billable services. Tori looks good today but we discussed her chronic challenges at home Support is expensive andshe is needing more help with time. They need to at least consider placement going forward. The above was discussed and understanding was expressed. Chad Phoenix DO documented in this encounter Nursing Notes * Marina Clarke LPN - 08/17/2024 11:04 AM EST Tori May presents for hospital follow up. Medications & HM reviewed. Unsure if she had the flu vaccine while in the hospital. Will check records. documented in this encounter Plan of Treatment Upcoming Encounters Date Type Department Care Team (Late st Contact Info) Description 09/18/2024 8:40 AM EST Office Visit Podiatry [facility] [address] [place] [address] Bryanna Guzman DPM [address] [place] [address] 10/15/2024 3:00 PM EST Office Visit Cardiology, [facility] [address] [place] [address] Yeni Laureano CRNP [address] [place] [address] 01/02/2025 3:00 PM EDT Office Visit [facility] [address] [facility] [place] [address] Chad Phoenix DO [address] [facility] [place] [address] 04/30/2025 3:00 PM EDT Office Visit Pulmonary Medicine, [facility] [address] [facility] [place] [address] Krunal Sherwood MD [address] [place] [address] Health Maintenance Due Date Last Done Comments [...] Procedure Name Priority Date/Time Associated Diagnosis Comments COMPREHENSIVE METABOLIC PANEL Routine 08/17/2024 12:03 PM EST Acute on chronic diastolic CHF (congestive heart failure) (HCC) CBC Routine 08/17/2024 12:03 PM EST Other acute pulmonary embolism without acute cor pulmonale (HCC) Acute on chronic diastolic CHF (congestive heart failure) (HCC) documented in this encounter Results * (ABNORMAL) CBC (08/17/2024 12:03 PM EST) WBC 5.65 4.00 - 10.80 K/uL 08/17/2024 12:29 PM EST [facility] [place] [facility] RBC 3.04 3.85 - 5.15 M/uL 08/17/2024 12:29 PM [facility] [place] [address] HGB 8.4(L) 12.0 - 15.3 g/dL 08/17/2024 12:29 PM EST [facility] [place] [facility] HCT 27.6(L) 36.0 - 45.2 % 08/17/2024 12:29 PM [facility] [place] [address] MCV 90.8 81.5 - 97.5 fL 08/17/2024 12:29 PM EST [facility] [place] [address] MCH 27.6 27.0 - 34.0 pg 08/17/2024 12:29 PM EST [facility] [place] MCHC 30.4 32.0 - 36.0 g/dL 08/17/2024 12:29 PM [facility] [place] [address] RDW 15.2 11.5 - 15.5 % 08/17/2024 12:29 PM EST [facility] [place] 5602 PLT 438(H) 140 - 400 K/uL 08/17/2024 12:29 PM EST [facility] [place] [facility] MPV 9.7 6.6 - 11.1 fL 08/17/2024 12:29 PM [facility] [place] [address] Blood Venous blood specimen / Unknown Venipuncture / Unknown 08/17/2024 12:03 PM EST 08/17/2024 12:03 PM EST us Chad Phoenix DO LAB BLOOD ORDERABLES Final Result [address] [place] [address] * (ABNORMAL) COMPREHENSIVE METABOLIC PANEL (08/17/2024 12:03 PM EST) BUN 26(H) 6 - 20 mg/dL 08/17/2024 1:50 PM EST [facility] 56 CREATININE 1.2(H) 0.5 - 1.0 mg/dL 08/17/2024 1:50 PM [facility] 56 EGFR 46(L) >=60 mL/min 08/17/2024 1:50 PM EST [facility] 56 Comment:eGFR is calculated b ased on the CKD-EPI 2020 equation. SODIUM 140 135 - 146 mmol/L 08/17/2024 1:50 PM [facility] 56 POTASSIUM 4.6 3.5 - 5.1 mmol/L 08/17/2024 1:50 PM [facility] 56 CHLORIDE 100 98 - 107 mmol/L 08/17/2024 1:50 PM [facility] 56 CO2 29 22 - 32 mmol/L 08/17/2024 1:50 PM [facility] 56 ANION GAP 11 7 - 15 mmol/L 08/17/2024 1:50 PM [facility] 56 GLUCOSE 103 70 - 120 mg/dL 08/17/2024 1:50 PM [facility] 56- Albumin 3.9 3.8 - 5.0 g/dL 08/17/2024 1:50 PM [facility] 56- AST 24 10 - 35 U/L 08/17/2024 1:50 PM [facility] 56 Alkaline Phosphatase 188(H) 35 - 130 U/L 08/17/2024 1:50 PM [facility] 56 Bilirubin, Total 0.4 <=1.2 mg/dL 08/17/2024 1:50 PM [facility] 56 CALCIUM 9.1 8.4 - 10.2 mg/dL 08/17/2024 1:50 PM EST [facility] 56-02 Protein 6.0 6.0 - 8.3 g/dL 08/17/2024 1:50 PM EST [facility] 56-02 ALT 21 10 - 35 U/L 08/17/2024 1:50 PM EST [facility] 56-02 Blood Venous blood specimen / Unknown Venipuncture / Unknown 08/17/2024 12:03 PM EST 08/17/2024 12:03 PM EST us Chad Phoenix DO LAB BLOOD ORDERABLES Final Result [facility] 56- [address] [facility] [place] [address] documented in this encounter Visit Diagnoses Diagnosis Type 2 diabetes mellitus with hemoglobin A1c goal of less than 8.0% (HCC)- Primary Other acute pulmonary embolism without acute cor pulmonale (HCC) Acute on chronic diastolic CHF (congestive heart failure) (HCC) Acute on chronic diastolic heart failure Hospital discharge follow-up Other follow-up examination Need for prophylactic vaccination and inoculation against influenza documented in this encounter Advance Directives * [...] Care Agent (per Health Care Power of Drama Critic document) DAVID Pearl Adult Child Second Alternate Health Care Agent (per Health Care Power of Drama Critic document) Care Teams Cook Helper Relationship Specialty Start Date End Date Chad Phoenix DO [address] [facility] [place] [address] PCP - General Family Medicine 06/02/18 documented as of this encounter
--- OUTSIDE RECORDS SUMMARY | 2024-09-16 22:36 | External Medical Summary ---
Author Name Unknown Address Unknown Organization [id number]:[facility] [place] [place] [address] Laboratory Report Ordering Provider Test Date Status KALPESH DONG 08/17/2024 12:03:53 Final Observation Date Value Abnormality Reference (Units ) Status BUN 08/17/2024 12:03:53 26 Above high normal 6-20 (mg/dL) Final Creatinine 08/17/2024 12:03:53 1.2 Above high normal 0.5-1.0 (mg/dL) Final Glomerular filtration rate/1.73 sq M.predicted [Volume Rate/Area] in Serum, Plasma or Blood by Creatinine-based formula (CKD-EPI) 08/17/2024 12:03:53 46 Below low normal >=60 (mL/min) Final eGFR is calculated based on the CKD-EPI 2020 equation. Sodium 08/17/2024 12:03:53 140 135-146 (m mol/L) Final Potassium 08/17/2024 12:03:53 4.6 3.5-5.1 (m mol/L) Final Cl 08/17/2024 12:03:53 100 98-107 (mm ol/L) Final CO2 08/17/2024 12:03:53 29 22-32 (mmo l/L) Final Anion gap 08/17/2024 12:03:53 11 7-15 (mmol /L) Final Glucose 08/17/2024 12:03:53 103 70-120 (mg /dL) Final Albumin 08/17/2024 12:03:53 3.9 3.8-5.0 (g /dL) Final AST (Aspartate aminotransferase) 08/17/2024 12:03:53 24 10-35 (U/L) Fin al Alk Phos 08/17/2024 12:03:53 188 Above high normal 35 -130 (U/L) Final Bilirubin, Total 08/17/2024 12:03:53 0.4 <=1 .2 (mg/dL) Final Calcium 08/17/2024 12:03:53 9.1 8.4-10.2 ( mg/dL) Final Protein 08/17/2024 12:03:53 6.0 6.0-8.3 (g /dL) Final ALT (Alanine aminotransferase) 08/17/2024 12:03:53 21 10-35 (U/L) Eleazar fofana Performing Location [facility] [place] [place] [address]
--- OUTSIDE RECORDS SUMMARY | 2024-09-16 22:36 | External Medical Summary ---
Author Name Unknown Address Unknown Organization K09:[facility] [place] [address] Laboratory Report Ordering Provider Test Date Status ROBERTO MCCORMICK 08/07/2024 13:11:09 Final Observation Date Value Abnormality Reference (Units ) Status WBC, Total 08/07/2024 13:11:09 6.76 4.00-10.8 0 (K/uL) Final RBC 08/07/2024 13:11:09 3.30 3.85-5.15 (M/uL) Final Hemoglobin 08/07/2024 13:11:09 9.4 Below low normal 12 .0-15.3 (g/dL) Final HCT 08/07/2024 13:11:09 29.9 Below low normal 36. 0-45.2 (%) Final MCV 08/07/2024 13:11:09 90.6 81.5-97.5 (fL) Final MCH 08/07/2024 13:11:09 28.5 27.0-34.0 (pg) Final MCHC 08/07/2024 13:11:09 31.4 32.0-36.0 (g/dL) Final RDW 08/07/2024 13:11:09 15.3 11.5-15.5 (%) Final Platelets 08/07/2024 13:11:09 282 140-400 (K /uL) Final MPV 08/07/2024 13:11:09 10.5 6.6-11.1 ( fL) Final Performing Location [facility] [place] [address]
--- OUTSIDE RECORDS SUMMARY | 2024-09-16 22:36 | External Medical Summary ---
Author Name Unknown Address Unknown Organization K09:[facility] [address] Laboratory Report Ordering Provider Test Date Status KALPESH DONG 08/17/2024 12:03:53 Final Observation Date Value Abnormality Reference (Units ) Status WBC, Total 08/17/2024 12:03:53 5.65 4.00-10.8 0 (K/uL) Final RBC 08/17/2024 12:03:53 3.04 3.85-5.15 (M/uL) Final Hemoglobin 08/17/2024 12:03:53 8.4 Below low normal 12 .0-15.3 (g/dL) Final HCT 08/17/2024 12:03:53 27.6 Below low normal 36. 0-45.2 (%) Final MCV 08/17/2024 12:03:53 90.8 81.5-97.5 (fL) Final MCH 08/17/2024 12:03:53 27.6 27.0-34.0 (pg) Final MCHC 08/17/2024 12:03:53 30.4 32.0-36.0 (g/dL) Final RDW 08/17/2024 12:03:53 15.2 11.5-15.5 (%) Final Platelets 08/17/2024 12:03:53 438 Above high normal 14 0-400 (K/uL) Final MPV 08/17/2024 12:03:53 9.7 6.6-11.1 ( fL) Final Performing Location [facility] [address]
--- OUTSIDE RECORDS SUMMARY | 2024-09-16 22:36 | External Medical Summary ---
Author Name Unknown Address Unknown Organization K09:[facility] [place] [address] Laboratory Report Ordering Provider Test Date Status ROBERTO MCCORMICK 08/10/2024 06:42:27 Final Observation Date Value Abnormality Reference (Units ) Status WBC, Total 08/10/2024 06:42:27 4.87 4.00-10.8 0 (K/uL) Final RBC 08/10/2024 06:42:27 3.08 3.85-5.15 (M/uL) Final Hemoglobin 08/10/2024 06:42:27 8.7 Below low normal 12 .0-15.3 (g/dL) Final HCT 08/10/2024 06:42:27 28.0 Below low normal 36. 0-45.2 (%) Final MCV 08/10/2024 06:42:27 90.9 81.5-97.5 (fL) Final MCH 08/10/2024 06:42:27 28.2 27.0-34.0 (pg) Final MCHC 08/10/2024 06:42:27 31.1 32.0-36.0 (g/dL) Final RDW 08/10/2024 06:42:27 15.2 11.5-15.5 (%) Final Platelets 08/10/2024 06:42:27 323 140-400 (K /uL) Final MPV 08/10/2024 06:42:27 10.5 6.6-11.1 ( fL) Final Performing Location [facility] [place] [address]
--- OUTSIDE RECORDS SUMMARY | 2024-09-16 22:37 | External Medical Summary | Summary of Care ---
Author Name Unknown Organization [facility] Address [address] [facility] [address] Phone [phone] Care Team Providers Care Dietician Name Role Phone LizettChad Jorge Luis GAMEZ Primary Care Provider [phone] Reason for Visit * Reason Comments Dosage Adjustment Via Phone (anticoag Cl inic) Encounter Details Date Type Department Care Team (Latest Contact Info) Description 08/01/2024 6:10 PM EDT Anticoagulation Pharmacy, [facility] [address] [facility] [place] [address] Pharmacist1, [facility] 200 [facility] [place] [address] Paroxysmal atrial fibrillation (HCC)* Allergies Active Allergy Reactions Criticality Noted Date Comments Glipizide 02/18/2021 Dizzy, confusion Latex Rash 04/05/2024 Penicillins Rash 10/13/2001 documented as of this encounter (statuses as of 08/01/2024) Medications Medication Sig Dispensed Refills Start Date [...] daily as directed by [facility] coumadin clinic 90 Tablet 1 04/25/2024 [...] as of this encounter (statuses as of 08/01/2024) Active Problems Problem Noted Date Diagnosed Date [...] mitral regurgitation by prior echocardi ogram 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 0 10/18/2017 [...] as of this encounter (statuses as of 08/01/2024) Resolved Problems Problem Noted Date Diagnosed Date Resolved Date Coronary artery disease invo lving [place] heart without angina pectoris 04/18/2019 10/29/2019 COPD, [...] 02/28/2012 08/29/2018 Overview: Per CKD protocol #1 retirement current use of 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 therapy 03/05/2011 [...] as of this encounter (statuses as of 08/01/2024) Immunizations Name Administration Dates Next Due COVID-19 [...] 2:15 PM EDT Sexual Orientation Straight 02/14/2023 2 :15 PM EDT Job Start Date Occupation Industry Not on file Not on file Not on file documented as of this encounter Progress Notes * Nilda Valverde CPhT - 08/01/2024 9:29 AM EDT Patient Phone Numbers Spoke with patient's daughter to schedule [facility] appointment for anticoagulation management. Patient is currently admitted to [facility] for a blood clot in her lung. Clinic will follow up again in 2 week(s). Thank you, Nilda Valverde CPhT Administrative Support Assistant II [facility] [address] [place], [place] [address] [address] [place] [address] [id number] 08/01/2024,9:30 AM documented in this encounter Plan of Treatment Upcoming Encounters Date Type Department Care Team (Late st Contact Info) Description 08/16/2024 6:10 PM EST Anticoagulation Pharmacy, [facility] [address] [facility] [place] [address] Pharmacist1, [facility] Sp [address] [place] [address] 09/18/2024 8:40 AM EST Office Visit Podiatry [facility] [address] [place] [address] Bryanna Guzman DPM [address] [place] [address] 10/15/2024 3:00 PM EST Office Visit Cardiology, [facility] [address] [place] [address] Yeni Laureano CRNP [address] [place] [address] 01/02/2025 3:00 PM EDT Office Visit Family Practice [facility] [address] [place] [address] Chad Phoenix, DO [address] [place] [address] 04/30/2025 3:00 PM EDT Office Visit Pulmonary Medicine, [facility] [address] [place] [address] Krunal Sherwood MD [address] [place] [address] Health Maintenance Due Date Last [...] Care Agent (per Health Care Power of Weight Count Operator document) DAVID Pearl Adult Child Second Alternate Health Care Agent (per Health Care Power of Weight Count Operator document) Care Teams Dietician Relationship Specialty Start Date End Date Chad Phoenix DO [address] [place] [address] PCP - General Family Medicine 06/02/18 documented as of this encounter
--- OUTSIDE RECORDS SUMMARY | 2024-09-16 22:37 | External Medical Summary | Summary of Care ---
Author Name Unknown Organization [facility] Address [address] [facility] [place] [address] Phone [phone] Care Team Providers Care Tester Regulator Name Role Phone LizettChad Jorge Luis GAMEZ Primary Care Provider [phone] Reason for Visit * Reason Onset Date Comments FYI 08/01/2024 Encounter Details Date Type Department Care Team (Late st Contact Info) Description 08/01/2024 Telephone Pharmacy, [facility] [place] [facility] [place] [address] Pharmacist1, [facility] 200 [facility] [place] [address] Allergies Active Allergy Reactions Criticality Noted Date [...] mitral regurgitation by prior echocardi ogram 10/18/2017 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 Napoleon Marte PharmD, BCACP, [facility] Clinical Pharmacist 08/01/2024, 9:53 AM * Telephone Encounter - Nilda Valverde CPhT - 08/01/2024 9:24 AM EDT Caller's name: Grace Preferred call back number(OFFICE NUMBER FOR ): [phone] Reason for call: Pt's daughter states the pt is currently admitted at [facility] for a blood clot in her lung. Pt was admitted on Tuesday, Jul 30. 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 Pt is currently doing an IV drip of Heparin while in the hospital per the pt's daughter. Thank you, Nilda Valverde CPhT [facility] [address] [place] [address] [address] [place] [address] [id number] 08/01/2024,9:24 AM documented in this encounter Plan of Treatment Upcoming Encounters Date Type Department Care Team (Late st Contact Info) Description 08/01/2024 6:10 PM EDT Anticoagulation Pharmacy, [facility] [address] [place] [address] Pharmacist1, [facility] [address] [place] [address] Paroxysmal atrial fibrillation (HCC)* 08/02/2024 5:10 PM EDT Anticoagulation Pharmacy, [facility] [address] [place] [address] [address] Pharmacist1, [facility] [address] [place] [address] 08/16/2024 6:10 PM EST Anticoagulation Pharmacy, [facility] [address] [place] [address] [address] Pharmacist1, [facility] [address] [place] [address] 09/18/2024 8:40 AM EST Office Visit [facility]iatry [facility] [place] [address] Bryanna Guzman DPM [address] [facility] [place] [address] 10/15/2024 3:00 PM EST Office Visit Cardiology, [facility] 132 [facility] [place] [address] Yeni Laureano CRNP [facility] [address] 01/02/2025 3:00 PM EDT Office Visit Family Practice [facility] 200 [facility] [place] [address] Chad Phoenix, DO 200 [facility] [address] 04/30/2025 3:00 PM EDT Office Visit Pulmonary Medicine, [facility] 132 [facility] [place] [address] Krunal Sherwood MD [address] [place] [address] Health Maintenance Due Date Last Done Comments [...] Depression Screening 09/21/2024 09/21/2023 HbA1c 11/04/2024 05/04/2024, 0 11/2023, 04/05/2023, Additional [...] Paroxysmal atrial fibrillation (HCC)- Primary Atrial fibrillation Paroxysmal atrial fibrillation (HCC)- Primary Atrial fibrillation [...] Care Agent (per Health Care Power of Gasoline Finisher document) GRACE Pearl Adult Child Second Alternate Health Care Agent (per Health Care Power of Gasoline Finisher document) Care Teams Tester Regulator Relationship Specialty Start Date End Date Chad Phoenix DO [facility] [place] [address] PCP - General Family Medicine 06/02/18 documented as of this encounter
--- OUTSIDE RECORDS SUMMARY | 2024-09-16 22:37 | External Medical Summary | Summary of Care ---
Author Name Unknown Organization [facility] Address [address] [facility] [place] [address] Phone [phone] Care Team Providers Care Lamps Tester And Inspector Name Role Phone LizettChad Jorge Luis GAMEZ Primary Care Provider [phone] Reason for Visit * Reason Comments Hospital Follow-Up Dosage Adjustment Via Phone (anticoag Cl inic) Encounter Details Date Type Department Care Team (Latest Contact Info) Description 08/03/2024 5:10 PM EDT Anticoagulation Pharmacy, [facility] 200 [facility] [place] [address] Pharmacist1, [facility] 200 [facility] [place] [address] Paroxysmal atrial fibrillation (HCC)* Allergies Active Allergy Reactions Criticality Noted Date Comments Glipizide 02/18/2021 Dizzy, confusion Latex Rash 04/05/2024 Penicillins Rash 10/13/2001 documented as of this encounter (statuses as of 08/03/2024) Medications Medication Sig Dispensed Refills Start Date [...] ns:COPD, group B, by GOLD 2017 classification ([facility]ION [...] tablet by mouth daily as directed by [facility] coumadin clinic 90 Tablet 1 04/25/2024 [...] as of this encounter (statuses as of 08/03/2024) Active Problems Problem Noted Date Diagnosed Date [...] mitral regurgitation by prior echocardi ogram 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 0 10/18/2017 [...] as of this encounter (statuses as of 08/03/2024) Resolved Problems Problem Noted Date Diagnosed Date Resolved Date Coronary artery disease invo 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 Pt was admitted on . 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 Pt was getting Lovenox 70mg q12h but was switched to Eliquis 08/02. Dose is 10mg twice dailt for 1 week then decrease to 5mg twice daily. [facility] was checking to see if Eliquis will be paid for by her insurance. Iwill assume it is going to be paid for since it was started. No follow up needed unless she resumesWarfarin. Ritchie Menchaca RPh, [facility] Clinical Pharmacist [facility] 08/03/2024, 9:01 AM documented in this encounter Plan of Treatment Upcoming Encounters Date Type Department Care Team (Late st Contact Info) Description 08/08/2024 11:00 AM EDT Office Visit Family Practice [facility] 200 [place] [address] Chad Phoenix, 200 [facility] [address] 09/18/2024 8:40 AM EST Office Visit Podiatry [facility] [address] [place] [address] Bryanna Guzman DPM [address] [place] [address] 10/15/2024 3:00 PM EST Office Visit Cardiology, [facility] [address] [place] [address] Yeni Laureano CRNP [address] [place] [address] 01/02/2025 3:00 PM EDT Office Visit Family Practice [facility] 200 [facility] [place] [address] Chad Phoenix DO 200 [facility] [place] [address] 04/30/2025 3:00 PM EDT Office Visit Pulmonary Medicine, [facility] 132 [facility] [place] [address] Krunal Sherwood MD [address] [place] [address] Health Maintenance Due Date Last Done Comments [...] 07/24/2024, 07/2 03/2024, 04/05/2023, Additional history exists Pneumococcal Vaccine: 65+ [...] Care Agent (per Health Care Power of Endodontic Assistant document) DAVID Pearl Adult Child Second Alternate Health Care Agent (per Health Care Power of Endodontic Assistant document) Care Teams Lamps Tester And Inspector Relationship Specialty Start Date End Date Chad Phoenix DO 200 [facility] [place] [address] PCP - General Family Medicine 06/02/18 documented as of this encounter
--- OUTSIDE RECORDS SUMMARY | 2024-09-16 22:37 | External Medical Summary | Summary of Care ---
Author Name Unknown Organization [facility] Address [address] [facility] [place] [address] Phone [phone] Care Team Providers Care Rehabilitation Counsellor Name Role Phone Chad Phoenix DO Primary Care Provider [phone] Reason for Visit * Reason Onset Date Comments Advice 07/27/2024 Encounter Details Date Type Department Care Team (Late st Contact Info) Description 07/27/2024 Telephone Family Practice [facility] [place] 200 [facility] [place] [address] Chad Phoenix DO 200 [facility] [place] [address] Advice Allergies Active Allergy Reactions Criticality Noted [...] tablet by mouth daily as directed by [facility] coumadin clinic 90 Tablet 1 04/25/2024 Active [...] regurgitation by prior echocardi ogram 10/18/2017 terminal carman 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 therapy 0 10/18/2017 [...] Resolved Date Coronary artery disease invo lving [place] heart without angina pectoris 04/18/2019 10/29/2019 [...] CKD protocol #1 long-term current use of 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 therapy 03/05/2011 [...] No 09/21/2023 Does the household have a [facility] center[facility] source of income? (Household - for ages [...] encounter Miscellaneous Notes * Telephone Encounter - Michelle Larry LPN - 08/01/2024 11:04 AM EDT Pt is admitted to [facility]. * Telephone Encounter - Yeni Laureano CRNP - 08/01/2024 5:18 AM EDT SPO2 readings in the low 80's despite supplemental O2, no wonder she feels bad. Patient needs a chest xray and labs. Orders pended. If her symptoms continue and she is maintaininga pulse ox reading less than 87% on supplemental O2 she really should be evaluated at the ED CBC BMP Chest Xray Thank you Grace Santo * Telephone Encounter - Michelle Larry LPN - 07/30/2024 2:49 PM EDT Spoke with daughter by phone. Gave information in this encounter verbally over phone and also sent via [employer]. Daughter has been holding AM metoprolol dose for days. Only giving at night. Since so late in the day, advised to give her evening dose at normal time and resume twice daily dosing with AM dose tomorrow. While on phone she mentioned pt not feeling well, feeling "blah." Asked if dgt could check pt SPO2 while on phone. O2 was in low 80's on 3L of oxygen. HR was 64. Asked if pt was mouth breathing. She was. Waited on phone for 2-3 minutes while patient breathed through nose w/oxygen. SPO2 did not go above 90%. Had a fall on Tuesday morning. Separately, had a near syncopal event while on commode. Was able to move to bed with help. Reported systolic BP 102, 105, 108, 112 * Telephone Encounter - Yeni Laureano CRNP - 07/29/2024 9:34 AM EDT Will await updates on blood pressure. This was also addressed in a staff message. At this time, I strongly recommend against holding patient's Metoprolol and Diltiazem. Patient is already on only 1/2 tab of low dose Imdur. Would hold Imdur for a systolic BP reading of 100mmHg or less. Next stop if this continues despite holding imdur would be a dosing adjustment of Furosemide. Last step would be a small reduction in Diltiazem. Do not hold Metoprolol. Thank you, Yeni * Telephone Encounter - Mary Ramirez DO - 07/27/2024 4:29 PM EDT HR seems okay right now, but patient is on those meds for Afib, not just BP, and recently blood thinner is held while bleeding varicose vein heals. Mary Ramirez DO * Telephone Encounter - Celina Enriquez LPN - 07/27/2024 3:56 PM EDT Patient called with concerns about BP: Is BP high or low: low When did it start: 07/26/24 Monitoring BP at home: Yes If yes, has your BP monitor been compared to our manual office reading to check for accuracy: Yes Wrist or arm cuff BP monitor: arm Recent stress/life changes: Yes- [facility] Hospital visit for anemia Lightheaded: No Blurred vision: No Headaches: No Ears ringing: No Facial flushing: No Chest pains: No Nose bleeds: No SOB: No Numbness and/or tingling: No Weakness: Yes- was in hospital form 07-19-14 Palpitations: No Tachycardia: No Recent med changes: Yes Which medications have been changed/added? Hold Metoprolol -Review meds and confirm doses- Taking all meds as directed: Yes Date 07/27/2024 Time 10:30AM BP 93/56 P 77 Date 07/27/24 Time 3:40 PM BP 99/58 P 77 Daughter has held all BP med's today (Isosorbide,Metoprolol, and Diltiazem) due to BP still low. Daughter is aware of note "If BP <120 systolic continue to hold evening metoprolol (take 100 instead of 200mg daily) " And still not comfortable giving 100 mg in AM due to Low BP. Daughter asking if another pill can be stopped and continue Metoprolol 100 mg daily. She is not comfortable with still giving all 3 BP medications. Advised daughter to encourage fluids and Monitor BP and keep log reading. Please advice - and Cardiology * Telephone Encounter - Mary Ramirez DO - 07/27/2024 3:54 PM EDT Please call: Advised to hold metoprolol only last night until I heard back from cardiology. Haven't heard back yet. How is BP and HR? If BP <120 systolic continue to hold evening metoprolol (take 100 instead of 200mg daily) Mary Ramirez DO * Telephone Encounter - Reuben Villegas OSA - 07/27/2024 3:50 PM EDT Reason for patient's call: Blood pressure medication questions and concerns Caller was transferred to [facility] at the nurse line. * Telephone Encounter - Nadya Pitt CMA - 07/27/2024 3:15 PM EDT OVN from yesterday is not complete. Please advise. * Telephone Encounter - Lilly Flores OSA - 07/27/2024 10:55 AM EDT Grace, pt's daughter, was told to hold her blood pressure medicine and was wondering if she should continue holding the medication. documented in this encounter Plan of Treatment Upcoming Encounters Date Type Department Care Team (Late st Contact Info) Description 08/01/2024 6:10 PM EDT Anticoagulation Pharmacy, [facility] [address] [place] [address] Pharmacist1, [facility] [address] [place] [address] Paroxysmal atrial fibrillation (HCC)* 08/02/2024 5:10 PM EDT Anticoagulation Pharmacy, [facility] [address] [place] [address] Pharmacist1, [facility] [address] [place] [address] 08/16/2024 6:10 PM EST Anticoagulation Pharmacy, [facility] 200 [facility] [place] [address] Pharmacist1, [facility] [address] [place] [address] 09/18/2024 8:40 AM EST Office Visit Podiatry [facility] [address] [place] [address] Bryanna Guzman DPM [address] [place] [address] 10/15/2024 3:00 PM EST Office Visit Cardiology, [facility] [address] [place] [address] Yeni Laureano CRNP [address] [place] [address] 01/02/2025 3:00 PM EDT Office Visit Family Practice [facility] [address] [place] [address] Chad Phoenix, DO [address] [place] [address] 04/30/2025 3:00 PM EDT Office Visit Pulmonary Medicine, [facility] [address] [place] [address] Krunal Sherwood MD [address] [place] [id number] Scheduled Orders Name Type Priority Associated Diagnoses Orde r Schedule CBC Lab Routine Shortness of breath Expected: 08/01/2024, Expires: 08/01/2025 BASIC METABOLIC PANEL Lab Routine Shortness of breath Expected: 08/01/2024, Expires: 08/01/2025 XR CHEST 2 VIEWS Medical Imaging Routine Shortness of breath Ordered: 08/01/2024 Health Maintenance Due Date Last Done Comments [...] as of this encounter Visit Diagnoses Diagnosis Shortness of breath- Primary Paroxysmal atrial fibrillation (HCC)- Primary Atrial fibrillation [...] Care Agent (per Health Care Power of Filter Changer document) GRACE JojoKHADRA Adult Child Second Alternate Health Care Agent (per Health Care Power of Filter Changer document) Care Teams Rehabilitation Counsellor Relationship Specialty Start Date End Date Chad Phoenix DO 200 [place] [address] PCP - General Family Medicine 06/02/18 documented as of this encounter
--- OUTSIDE RECORDS SUMMARY | 2024-09-17 00:42 | External Medical Summary | Summary of Care ---
Author Name Unknown Organization [facility] Address [address] [facility] [place] [address] Phone [phone] Care Team Providers Care Strategic Marketing Manager Name Role Phone Letitia Phoenix DO Primary Care Provider [phone] Reason for Referral * Medication Prior Authorization - Pending Review Specialty Diagnoses / Procedures Referred By Ga t Referred To Contact Diagnoses COPD, group B, by GOLD 2017 classification ([facility]) Jonathan Yoon, [facility] [address] [place] [address] Phone: tel: fax: Referral ID Status Reason Start Date Expiration Date V isits Requested Visits Authorized [id number] Pending Review 999 999 Reason for Visit * Reason Comments eRx-Medication Refill Encounter Details Date Type Department Care Team (Late st Contact Info) Description 09/14/2024 Refill Family Practice [facility] 200 [facility] [place] [address] Candelaria Dumont PA-C [address] [facility] [place] [address] COPD, group B, by GOLD 2017 classification ([facility]) Allergies Active Allergy Reactions Criticality Noted Date Comments Glipizide 02/18/2021 Dizzy, confusion Latex Rash 04/05/2024 Penicillins Rash 10/13/2001 Quetiapine Other (Please comment) 08/17/2024 Severe fatigue documented as of this encounter (statuses as of 09/14/2024) Medications NEBULIZER MISCIndications:A cute bronchitis, complicated use [...] Dx. E11.9 100 Strip 3 021 Active oxygen IN GAS Increase to 3 [...] (Lasix)Indication s:Heart failure, diastolic, due to HTN (HCC) TAKE [...] morning and 1 Tablet before bedtime. Active Vizional TechnologiesTouch Verio w/Device KitIndications:Ty pe 2 diabetes mellitus with hemoglobin A1c goal of less than 8.0% (HCC) Use up to 4 times a day E11.9 1 Kit Active OneTouch Verio In Vitro Strip (Glucose Blood)Indications :Type 2 diabetes mellitus with hemoglobin A1c goal of less than 8.0% (HCC) Use up to 4 times a day E11.9 100 Strip 11 Active Vizional TechnologiesTouch UltraSoft LancetsIndication s:Type 2 diabetes mellitus with [...] OR OTHER MEDICATIONS 90 Tablet 3 Active Dexcom G7 Sensor Use as directed every 10 days. Check blood sugar regularly E11.9 3 Each 5 Active Dexcom G7 Paralegal Specialist Device Use as directed. Check blood sugar regularly E11.9 1 Each Active Potassium Chloride ER 20 MEQ Oral Tablet Extended ReleaseIndication s:Hypertensive heart and kidney disease with chronic diastolic congestive heart failure and stage 3b chronic kidney disease (HCC) Take 1 Tablet by mouth in the morning for 3 doses. 3 Tablet 024 2023 Active Albuterol Sulfate (2.5 MG/3ML) 0.083% Inhalation Nebulization Solution (Proventil)Indica tions:COPD, group B, by GOLD 2017 classification ([facility]) inhale 1 vial via nebulizer every 4 hours as needed for wheezing or shortness of breath 90 mL 2 024 Active Albuterol Sulfate (2.5 MG/3ML) 0.083% Inhalation Nebulization Solution (Proventil)Indica tions:COPD, group B, by GOLD 2017 classification ([facility]) Inhale 1 Vial via nebulizer every 4 hours as needed for Wheezing or Shortness of Breath. 90 mL 3 023 2023 Discontinued documented as of this encounter (statuses as of 09/14/2024) Active Problems Problem Noted Date Diagnosed Date [...] as of this encounter (statuses as of 09/14/2024) Resolved Problems Problem Noted Date Diagnosed Date Resolved Date CKD (chronic kidney disease) stage 4, GFR 15-29 ml/min 11/24/2021 08/23/2024 Coronary artery disease invo lving [place] heart without angina pectoris 04/18/2019 10/29/2019 COPD, [...] 08/29/2018 Overview (03/02/2012): Per CKD protocol #1 skilled nursing current [...] as of this encounter (statuses as of 09/14/2024) Immunizations Name Administration Dates Next Due COVID-19 [...] encounter Miscellaneous Notes * Telephone Encounter - Jonathan Yoon RPh - 09/14/2024 4:15 PM ESTSigned Prescriptions: Disp Refills Albuterol Sulfate (2.5 MG/3ML) 0.083% Inha*90 mL 2 Sig: inhale 1vial via nebulizer every 4 hours as needed for wheezing or shortness of breathAuthorizing Provider:LETITIA PHOENIX User: JONATHAN YOON * Telephone Encounter - Oswaldo Andujar, housekeeper head - 09/14/2024 3:50 PM EST Pt's daughter requesting high priority. Did you pend patient's preferred pharmacy and medication before forwarding?yes Pharmacy: [id number] Pending Prescriptions: Disp Refills Albuterol Sulfate (2.5 MG/3ML) 0.083% Inh*90 mL 0 Sig: inhale 1 vial via nebulizer every 4 hours as needed for wheezing or shortness of breath Last Visit: 08/17/2024 (in office), 09/29/2020 (telemedicine) Next Visit: 01/02/2025 If no future appointments scheduled, and last appointment is greater than a year ago, please schedule patient for a follow-up appointment Last date the medication was ordered: 10/20/2022 Is this request for a controlled substance?No [...] 09/18/2024 1:40 PM EST Office Visit Podiatry [facility] [address] [place] [address] [place] [address] Bryanna Guzman DPM [address] [place] [address] 10/15/2024 3:00 PM EST Office Visit Cardiology, [facility] [address] [place] [address] Yeni Laureano CRNP [address] [place] [address] 01/02/2025 3:00 PM EDT Office Visit Family Practice [facility] 200 [facility] [place] [address] Letitia Phoenix DO 200 [facility] [place] [address] 04/30/2025 3:00 PM EDT Office Visit Pulmonary Medicine, [facility] [address] [place] [address] Krunal Sherwood MD [address] [place] [address] Health Maintenance Due Date Last Done Comments [...] Additional history exists CKD PHOS USE SMARTSET [id number] 05/04/202504/10, 10/20/2022, 12/08/2021, Additional history exists Diabetic Foot Exam 06/05/2025 06/05/2024, 0 10/26/2022, 11/24/2021, Additional history exists TSH 07/24/2025 07/24/2024, 04/10, 04/05/2023, Additional history exists CKD HGB USE SMARTSET [id number] 08/17/202508/17, 08/11/2024, 08/10/2024, Additional history exists Depression [...] as of this encounter Visit Diagnoses Diagnosis COPD, group B, by GOLD 2017 classification (HCC) documented in this encounter Advance Directives [...] Care Agent (per Health Care Power of Marble Finisher document) DAVID Ryanne Adult Child Second Alternate Health Care Agent (per Health Care Power of Marble Finisher document) Care Teams Strategic Marketing Manager Relationship Specialty Start Date End Date Letitia Phoenix DO [address] [place] [address] PCP - General Family Medicine 06/02/18 documented as of this encounter
--- OUTSIDE RECORDS SUMMARY | 2024-09-17 00:42 | External Medical Summary | Summary of Care ---
Author Name Unknown Organization [facility] Address [address] [facility] [place] [address] Phone [phone] Care Team Providers Care [facility] Manager Name Role Phone Letitia Phoenix DO Primary Care Provider [phone] Reason for Referral * Medication Prior Authorization - Pending Review Specialty Diagnoses / Procedures Referred By Ga t Referred To Contact Diagnoses COPD, group B, by GOLD 2017 classification ([facility]) Jonathan Yoon, [facility] [address] [place] [address] Phone: tel: fax: Referral ID Status Reason Start Date Expiration Date V isits Requested Visits Authorized [id number] Pending Review 999 999 Reason for Visit * Reason Comments eRx-Medication Refill Encounter Details Date Type Department Care Team (Late st Contact Info) Description 09/14/2024 Refill Family Practice [facility] [place] [address] [facility] [place] [address] Candelaria Dumont PA-C [address] [facility] [address] [place] [address] COPD, group B, by GOLD 2017 classification ([facility]) Allergies Active Allergy Reactions Criticality Noted Date [...] morning and 1 Tablet before bedtime. Active Nexis VisionTouch Verio w/Device KitIndications:Ty pe 2 diabetes mellitus with hemoglobin A1c goal of less than 8.0% (HCC) Use up to 4 times a day E11.9 1 Kit Active OneTouch Verio In Vitro Strip (Glucose Blood)Indications :Type 2 diabetes mellitus with hemoglobin A1c goal of less than 8.0% (HCC) Use up to 4 times a day E11.9 100 Strip 11 Active Nexis VisionTouch UltraSoft LancetsIndication s:Type 2 diabetes mellitus with [...] E11.9 3 Each 5 Active Dexcom G7 Access Services Representative Device Use as directed. Check blood sugar [...] tions:COPD, group B, by GOLD 2017 classification ([facility]) inhale 1 vial via nebulizer every 4 hours as needed for wheezing or shortness of breath 90 mL 2 024 Active Albuterol Sulfate (2.5 MG/3ML) 0.083% Inhalation Nebulization Solution (Proventil)Indica tions:COPD, group B, by GOLD 2017 classification ([facility]) Inhale 1 Vial via nebulizer every 4 [...] 11/24/2021 08/23/2024 Coronary artery disease invo lving [place] heart without angina pectoris 04/18/2019 10/29/2019 COPD, [...] 08/29/2018 Overview (03/02/2012): Per CKD protocol #1 [facility] current use [...] encounter Miscellaneous Notes * Telephone Encounter - Jontahan Yoon RPh - 09/14/2024 4:15 PM ESTSigned Prescriptions: Disp Refills Albuterol Sulfate (2.5 MG/3ML) 0.083% Inha*90 mL 2 Sig: inhale 1vial via nebulizer every 4 hours as needed for wheezing or shortness of breathAuthorizing Provider:LETITIA PHOENIX User: JONATHAN YOON * Telephone Encounter - Oswaldo Andujar, clinical evaluator - 09/14/2024 3:50 PM EST Pt's daughter requesting high priority. Did you pend patient's preferred pharmacy and medication before forwarding?yes Pharmacy: [facility] [id number] Pending Prescriptions: Disp Refills Albuterol Sulfate [...] 09/18/2024 1:40 PM EST Office Visit Podiatry [facility] [address] [place] [address] Bryanna Guzman DPM [address] [place] [id number] 10/15/2024 3:00 PM EST Office Visit Cardiology, [facility] [address] [place] [address] [place] [address] Yeni Laureano CRNP [address] [place] [address] 01/02/2025 3:00 PM EDT Office Visit Family Practice [facility] [address] [facility] [place] [address] Letitia Phoenix DO [address] [facility] [place] [address] 04/30/2025 3:00 PM EDT Office Visit Pulmonary Medicine, [facility] [address] [place] [address] Krunal Sherwood MD [address] [place] [address] Health Maintenance Due Date Last Done Comments [...] Additional history exists CKD PHOS USE SMARTSET 64773 05/04/202504/10, 10/20/2022, 12/08/2021, Additional history exists Diabetic Foot Exam 06/05/2025 06/05/2024, 0 10/26/2022, 11/24/2021, Additional history exists TSH 07/24/2025 07/24/2024, 04/10, 04/05/2023, Additional history exists CKD HGB USE SMARTSET 75819 08/17/202508/17, 08/11/2024, 08/10/2024, Additional history exists Depression [...] Care Agent (per Health Care Power of Reactor Technician document) DAVID Ryanne Adult Child Second Alternate Health Care Agent (per Health Care Power of Reactor Technician document) Care Teams [facility] [employer] [facility] Manager Relationship Specialty Start Date End Date Letitia Phoenix DO [address] [place] [address] PCP - General Family Medicine 06/02/18 documented as of this encounter
[2024-09-17 07:04] LABS: Hematocrit (blood only) 27.3 % (37.0-47.0); Hemoglobin 8.4 g/dl (12.0-16.0); Immature Granulocytes # (auto) 0.01 K/uL (0.01-0.20); Immature Granulocytes % (auto) 0.5 %; Lymphocytes # (auto) 0.55 K/uL (1.20-3.40); Lymphocytes % (auto) 25.8 %; Mean Corpuscular Hemoglobin 25.5 pg (25.0-34.0); Mean Corpuscular Hgb Conc 30.8 g/dL (32.0-36.0); Mean Platelet Volume 10.4 fL (9.4-12.4); Monocytes # (auto) 0.11 K/uL (0.11-0.59); Monocytes % (auto) 5.2 %; Neutrophils # (auto) 1.46 K/uL (1.40-6.50); Neutrophils % (auto) 68.5 %; Platelet Count 271 K/uL (130-400); RDW Coefficient of Variation 15.6 % (11.5-14.5); RDW Standard Deviation 47.9 fL (36.4-46.3); Red Blood Count 3.29 M/uL (4.20-5.40); White Blood Count 2.13 K/ul (4.8-10.8)
[2024-09-17 07:14] LABS: Giant Platelets 1+
[2024-09-17 07:22] LABS: BUN Creatinine Ratio 15.5 (10-20); Calcium 8.7 mg/dl (8.6-10.3); Creatinine Clr Calc Pharmacy 24.5 ml/min; Potassium 3.8 mmol/L (3.5-5.1)
[2024-09-17] MEDS: APIXABAN 2.5 MG TAB PO SCH (09:08)
--- NOTE | 2024-09-17 09:51 | Hospitalist Progress Note ---
Date of Service September 17, 2024 Assessment & Plan (1) Anemia: Plan: 89-year-old female with past medical history significant for type 2 diabetes, hyperlipidemia, hypothyroidism, hyperparathyroidism secondary renal disease, obstructive sleep apnea, history of acute respiratory failure with hypoxia, atrial fibrillation, chronic diastolic CHF, right-sided heart failure, pulmonary hypertension, moderate mitral regurgitation, CKD stage III, bilateral sensorineural hearing loss, thrombocytopenia, tachybradycardia syndrome status post pacemaker presents with possible vaginal bleeding and anemia. Anemia Acute on chronic blood loss anemia Possible vaginal bleed Recent history of right subsegmental PE in July Patient presented to the hospital after reported history of bright red blood seen in toilet. Patient unsure whether the bleeding is per rectum or paraspinal Rectal exam in the ED showed brown stool without gross blood. No obvious bleeding on external examination of vaginal introitus. supervisor tumbling and rolling evaluated the patient on 09/15/2024. Hemoglobin on admission 6.7; down trended from from July. CT abdomen pelvis unremarkable for site of bleeding Pelvic ultrasound does not show any gross abnormality s/p 2 packed RBCs transfusion Patient was monitored off anticoagulation for recurrence of bleeding. I discussed with patient's family regarding pros and cons of anticoagulation/monitoring. Patient's PE is very recent; we discussed monitoring patient off anticoagulation for couple of days. No recurrence of bleeding was seen. Patient started on 2.5 twice daily Eliquis from 09/17. Monitor for any bleeding episode. Family does not want IVC filter placement. Acute on Chronic diastolic CHF Chronic right-sided heart failure Valvular heart disease COPD exacerbation Has lower extremity edema Chest x-ray on admission showed pumonary edema On IV Lasix 40 mg twice daily Started on budesonide, formoterol nebs scheduled; also on [id number] DuoNeb and steroids ( for total of 5 days) Diabetes type 2 Hold home p.o. medications Sliding scale Will monitor Obstructive sleep apnea CPAP nightly Atrial fibrillation Tachybradycardia syndrome status post pacemaker Pancreatic head lesion On CAT scan low-attenuation Lesion measuring 2.6 to 0.6 cm Needs follow-up as outpatient On metoprolol succinate Eliquis as above . Monitor CKD stage III Presented creatinine 1.3 Around baseline Will monitor Hypothyroidism Synthyroid, continue Hypertension Imdur and metoprolol succinate Will monitor History of delirium Will monitor DVT prophylaxis Eliquis Disposition Telemetry CODE STATUS DNR/DNI Time spent evaluating patient, direct bedside care, chart review, placing orders, interpretation of diagnostic studies, discussion with consultants, patient, and family members, as well as other required patient management activities is 50 minutes Please note the above document was generated using voice recognition software. It may contain grammatical, syntax or spelling errors. Any formal questions or concerns about the content, text or information contained within the body of this dictation should be directly addressed to the provider for clarification Admission and Anticipated Discharge Date Admission Date: September 15, 2024 Subjective Patient seen and examined at bedside. She appears more comfortable compared to previous days No significant events overnight No recurrence of bleeding Review of Systems Review of Systems: All systems reviewed & are unremarkable except as noted in Subjective Physical Exam Physical Exam: General- Not in acute distress Head- atraumatic Eyes- PERRL. ENT- oropharynx dry Neck- supple, no JVD. Lungs- Bibasilar crackles present. Occasional wheeze. Heart- regular rhythm; no murmur, no gallop. Abdomen- normal bowel sounds, soft, nontender, no distension Extremities: B/L lower extremity edema present, no erythema seen Neuro- alert, oriented x 3; PERRL, no facial palsy; no dysarthria; moves extremities Results & Data Results & Data Vital Signs (Past 12 Hours) Vital Signs Temp Pulse Resp BP Pulse Ox O2 Del Method O2 Flow Rate 09/17/24 07:55 36.7 C 74 18 135/65 94 CPAP 3 09/17/24 07:02 77 19 91 Nasal Cannula 2 09/17/24 04:20 36.6 C 68 18 143/72 H 93 CPAP 3 09/16/24 23:27 36.5 C 73 18 127/65 93 CPAP
[2024-09-17] MEDS: FUROSEMIDE 40 MG TAB PO SCH (13:08)
[2024-09-17] MEDS ORDERED: FUROSEMIDE 40 MG/4 ML VIAL IV SCH (14:00)
[2024-09-17] MEDS: PROMETHAZINE 6.25 MG/50.25 ML BAG IV STA ×2 (19:30→20:32)
[2024-09-17] MEDS: ACETAMINOPHEN 1,000 MG/100 ML VIAL IV STA (22:19)
[2024-09-18] MEDS: PANTOprazole 40 MG TAB PO SCH (08:01)
[2024-09-18] MEDS: predniSONE 20 MG TAB PO SCH (08:03)
[2024-09-18] MEDS: ONDANSETRON INJ 2 MG/ML 2 ML VIAL IV STA (08:26)
[2024-09-18] MEDS: HYDROmorphone INJ 0.5 MG/0.5 ML SYR IV STA (08:26)
--- NOTE | 2024-09-18 08:34 | Electrocardiogram Report ---
Test Reason : Blood Pressure : */* mmHG Vent. Rate : 90 BPM Atrial Rate : 119 BPM P-R Int : * ms QRS Dur : 98 ms QT Int : 368 ms P-R-T Axes : * -31 265 degrees QTcB Int : 450 ms Poor data quality, interpretation may be adversely affected Atrial fibrillation Left axis deviation Abnormal ECG When compared with ECG of 30-Jul-2024 15:58, Atrial fibrillation has replaced Electronic ventricular pacemaker Confirmed by Yg Guerrero ([id number]) on 09/18/2024 8:34:07 AM Referred By: REFERRED SELF Confirmed By: Yg Guerrero
--- NOTE | 2024-09-18 10:03 | Hospitalist Progress Note ---
Date of Service September 18, 2024 Assessment & Plan (1) Anemia: Plan: 89-year-old female with past medical history significant for type 2 diabetes, hyperlipidemia, hypothyroidism, hyperparathyroidism secondary renal disease, obstructive sleep apnea, history of acute respiratory failure with hypoxia, atrial fibrillation, chronic diastolic CHF, right-sided heart failure, pulmonary hypertension, moderate mitral regurgitation, CKD stage III, bilateral sensorineu ral hearing loss, thrombocytopenia, tachybradycardia syndrome status post pacemaker presents with possible vaginal bleeding and anemia. Anemia Acute on chronic blood loss anemia Possible vaginal bleed Recent history of right subsegmental PE in July Patient presented to the hospital after reported history of bright red blood seen in toilet. Patient unsure whether the bleeding is per rectum or paraspinal Rectal exam in the ED showed brown stool without gross blood. No obvious bleeding on external examination of vaginal introitus. sweep press operator evaluated the patient on 09/15/2024. Hemoglobin on admission 6.7; down trended from [address] abdomen pelvis unremarkable for site of bleeding Pelvic ultrasound does not show any gross abnormality s/p 2 packed RBCs transfusion Patient was monitored off anticoagulation for recurrence of bleeding. I discussed with patient's family regarding pros and cons of anticoagulation/monitoring. Patient's PE is very recent; we discussed monitoring patient off anticoagulation for couple of days. No recurrence of bleeding was seen. Patient started on 2.5 twice daily Eliquis from 09/17. Discussed with patient' daughter that Eliquis 2.5 mg is a prophylactic dose; she has weeks of future event of DVT/PE while she is on it. However with the patient advanced age, multiple comorbidities and frequent bleeding episodes on full dose anticoagulation(previous hospitalization with varicose vein bleed, present hospitalization); plan to continue on 2.5 mg twice daily for now. Monitor for any bleeding episode. Family does not want IVC filter placement. Acute on Chronic diastolic CHF Chronic right-sided heart failure Valvular heart disease COPD exacerbation Has lower extremity edema Chest x-ray on admission showed pumonary edema treated with iv lasix; on oral lasix now Started on budesonide, formoterol nebs scheduled; also on [id number] DuoNeb and steroids ( for total of 5 days) Diabetes type 2 Hold home p.o. medications Sliding scale Will monitor Obstructive sleep apnea CPAP nightly Atrial fibrillation Tachybradycardia syndrome status post pacemaker Pancreatic head lesion On CAT scan low-attenuation Lesion measuring 2.6 to 0.6 cm Needs follow-up as outpatient On metoprolol succinate Eliquis as above . Monitor CKD stage III Presented creatinine 1.3 Around baseline Will monitor Hypothyroidism Synthyroid, continue Hypertension Imdur and metoprolol succinate Will monitor History of delirium Will monitor DVT prophylaxis Eliquis Disposition Patient closely monitor for recurrence of bleeding. PT OT ordered. Possible discharge home tomorrow if patient continues to remain clinically stable. CODE STATUS DNR/DNI Please note the above document was generated using voice recognition software. It may contain grammatical, syntax or spelling errors. Any formal questions or concerns about the content, text or information contained within the body of this dictation should be directly addressed to the provider for clarification Admission and Anticipated Discharge Date Admission Date: September 15, 2024 Subjective Patient seen and examined at bedside. Comfortable; not in distress. Denies fever, chills, chest pain, shortness of breath, abdominal pain or urinary symptoms. No significant overnight events Review of Systems Review of Systems: All systems reviewed & are unremarkable except as noted in Subjective Physical Exam Physical Exam: General- Not in acute distress Head- atraumatic Eyes- PERRL. ENT- oropharynx dry Neck- supple, no JVD. Lungs- Bilateral crackles improved; no wheeze Heart- regular rhythm; no murmur, no gallop. Abdomen- normal bowel sounds, soft, nontender, no distension Extremities: B/L lower extremity edema present, no erythema seen Neuro- alert, oriented x 3; PERRL, no facial palsy; no dysarthria; moves extremities Results & Data Results & Data Vital Signs (Past 12 Hours) Vital Signs Temp Pulse Pulse Resp BP Pulse Ox O2 Del Method 09/18/24 08:00 88 09/18/24 08:00 Nasal Cannula 09/18/24 08:00 36.6 C 78 20 119/62 92 Nasal Cannula 09/18/24 07:02 65 18 99 Nasal Cannula 09/18/24 02:53 36.5 C 71 20 133/61 97 Nasal Cannula O2 Flow Rate 09/18/24 08:00 09/18/24 08:00 2 09/18/24 08:00 09/18/24 07:02 3 09/18/24 02:53
[2024-09-18 12:12] LABS: Basophils # (auto) 0.01 K/uL (0.00-0.20); Basophils % (auto) 0.2 %; Eosinophils # (auto) 0.06 K/uL (0.00-0.50); Eosinophils % (auto) 1.1 %; Hematocrit (blood only) 25.5 % (37.0-47.0); Hemoglobin 7.8 g/dl (12.0-16.0); Immature Granulocytes # (auto) 0.02 K/uL (0.01-0.20); Immature Granulocytes % (auto) 0.4 %; Lymphocytes # (auto) 0.51 K/uL (1.20-3.40); Mean Corpuscular Hemoglobin 25.8 pg (25.0-34.0); Mean Corpuscular Hgb Conc 30.6 g/dL (32.0-36.0); Mean Corpuscular Volume 84.4 fL (80.0-100.0); Mean Platelet Volume 10.1 fL (9.4-12.4); Monocytes % (auto) 5.3 %; Neutrophils # (auto) 4.78 K/uL (1.40-6.50); Platelet Count 242 K/uL (130-400); RDW Coefficient of Variation 15.8 % (11.5-14.5); RDW Standard Deviation 48.8 fL (36.4-46.3); Red Blood Count 3.02 M/uL (4.20-5.40); White Blood Count 5.68 K/ul (4.8-10.8)
[2024-09-18 12:26] LABS: BUN Creatinine Ratio 27.6 (10-20); Calcium 8.5 mg/dl (8.6-10.3); Creatinine Clr Calc Pharmacy 27.4 ml/min; Potassium 4.1 mmol/L (3.5-5.1)
[2024-09-18 12:40] LABS: Acanthocytes 1+; Ovalocytes 1+; Polychromasia 1+
[2024-09-18] MEDS: ACETAMINOPHEN 325 MG TAB PO STA (21:16)
[2024-09-19 06:23] LABS: Basophils # (auto) 0.01 K/uL (0.00-0.20); Basophils % (auto) 0.2 %; Eosinophils # (auto) 0.02 K/uL (0.00-0.50); Eosinophils % (auto) 0.4 %; Hematocrit (blood only) 25.1 % (37.0-47.0); Hemoglobin 7.8 g/dl (12.0-16.0); Immature Granulocytes # (auto) 0.03 K/uL (0.01-0.20); Immature Granulocytes % (auto) 0.5 %; Lymphocytes # (auto) 0.77 K/uL (1.20-3.40); Lymphocytes % (auto) 13.7 %; Mean Corpuscular Hemoglobin 25.7 pg (25.0-34.0); Mean Corpuscular Hgb Conc 31.1 g/dL (32.0-36.0); Mean Corpuscular Volume 82.8 fL (80.0-100.0); Mean Platelet Volume 10.2 fL (9.4-12.4); Monocytes # (auto) 0.53 K/uL (0.11-0.59); Monocytes % (auto) 9.4 %; Neutrophils # (auto) 4.28 K/uL (1.40-6.50); Neutrophils % (auto) 75.8 %; Platelet Count 229 K/uL (130-400); RDW Coefficient of Variation 15.9 % (11.5-14.5); RDW Standard Deviation 48.4 fL (36.4-46.3); Red Blood Count 3.03 M/uL (4.20-5.40); White Blood Count 5.64 K/ul (4.8-10.8)
[2024-09-19 06:44] LABS: BUN Creatinine Ratio 27.6 (10-20); Calcium 8.7 mg/dl (8.6-10.3); Creatinine Clr Calc Pharmacy 24.7 ml/min; Potassium 3.9 mmol/L (3.5-5.1)
[2024-09-19 07:22] LABS: Acanthocytes 1+; Hypochromasia Present; Polychromasia 1+
[2024-09-19 07:31] VITALS: TEMP 97.7
--- NOTE | 2024-09-19 10:38 | Discharge Summary ---
Discharge Summary Date of Service September 19, 2024 Principal Dx & Hospital Course #1 = Principal Diagnosis (1) Acute blood loss anemia: (2) Chronic anticoagulation: (3) COPD (chronic obstructive pulmonary disease): (4) Pancreatic lesion: (5) Acute on chronic diastolic CHF (congestive heart failure), NYHA class 3: (6) Vulvar atrophy: (7) Bleeding from varicose vein: (8) Pulmonary hypertension: (9) Pulmonary emboli: (10) CKD (chronic kidney disease), stage III: (11) DM (diabetes mellitus), type 2: (12) Permanent atrial fibrillation: Plan Patient presented to the emergency room with reports of finding blood in her un derwear. Unclear whether this was coming from rectum, bladder or vagina. Patient is on anticoagulation Eliquis for recent pulmonary embolism. Patient was admitted to the hospital. Her anticoagulation was held. On extensive again examined by RELOCATION SERVICES SPECIALIST and attending there was no definitive source noted for her bleeding. She was transfused 2 units of packed red blood cells. Her hemoglobin remained stable. There was no evidence of ongoing bleeding. Conversation was held with the patient and family. Discussion of risks and benefits of ongoing anticoagulation. Collaboratively they chose to start Eliquis at the 2.5 mg VTE prophylaxis dose. She was not interested in pursuing an IVC filter. She has been on this dose for 2 days and her hemoglobin has remained stable. Her other medical comorbidities have remained stable. She was treated for a mild exacerbation of her COPD here in the hospital. She completed a 5-day course of oral prednisone. She will be continued on a Dulera inhaler in addition to her nebulizer at the time of discharge. On the day of discharge vital signs are stable. Laboratory studies are stable. Is tolerating her diet. There is no evidence of ongoing bleeding. Patient and family have chosen for her to return to her home with family support and home health care. She will follow-up with her outpatient factors. Notes For Next Care Provider Monitor hemoglobin as needed Consider follow-up imaging of pancreatic head lesion if patient wants to pursue. Could consider MRI pancreas Medication Changes From Visit Eliquis dose decreased to 0.5 mg daily. Dulera Admission HPI Per Admitting Provider 89-year-old female with past medical history significant for type 2 diabetes, hyperlipidemia, hypothyroidism, hyperparathyroidism secondary renal disease, obstructive sleep apnea, history of acute respiratory failure with hypoxia, atrial fibrillation, chronic diastolic CHF, right-sided heart failure, pulmonary hypertension, moderate mitral regurgitation, CKD stage III, bilateral sens orineural hearing loss, thrombocytopenia, tachybradycardia syndrome status post pacemaker presents with possible vaginal bleeding and anemia. Patient lives with her daughter. Ambulates with a walker. Patient was on Coumadin in the past but it was stopped secondary to anemia from varicose vein bleeding in July 2024 but then again she got admitted end of July 2024 with acute pulmonary embolism and she was placed on Eliquis and patient was discharged to rehab. After coming from rehab as per daughter she is having issues with swelling in the legs. Today when daughter came back from work she noticed patient is short of breath and gave her nebs and put on oxygen. Patient uses oxygen as needed as per daughter. And then patient told the daughter that she saw bright red blood in the toilet. Later blood was noted in the depends.Family was not sure blood coming from urine or rectum and brought to the ER. In the ER rectal exam was unremarkable. No blood in the urine was noted. Possible vaginal bleeding. Her hemoglobin was 6.7. One unit PRBC ordered in the ER. Patient is somewhat hard of hearing. Daughter in the room. Patient alert and oriented x 3. Denies any headache. No runny nose or sore throat. No cough. No chest pain or shortness of breath. No nausea. No abdominal pain. Currently resting comfortably and hemodynamically stable. Past medical history. As mentioned above Past surgical history. Ablation of cardiac dysrhythmia. Bilateral total knee arthroplasty. Colonoscopy. EGD. EGD with endoscopic ultrasound. Bronchoscopy. Hemilaminectomy cervical/lumbar. Appendectomy. Removal of ovaries/oviducts,right side. Tonsillectomy. Complete removal of mastoid structures. Repair of inguinal hernia. Left side excision of breast mass. Social history. No smoking. Alcohol occasional. No drug use. Family history. Mother had breast cancer. Dementia. Admission Exam Per Admitting Provider See H&P Discharge Exam Constitutional: Alert, sitting in chair, no acute distress HEENT: Mucous membranes moist. Lungs: Decreased breath sounds, prolonged expiratory phase, no wheezing CV: S1-S2, irregular Abdomen: Soft, nontender, nondistended Extremities: No significant edema Neuro: No focal deficits Psych: Cooperative, normal mood Updated Medication List Medication Instructions Recorded Confirmed Type pantoprazole 40 mg tablet,delayed 40 mg PO QAM ##0 12/25/14 09/14/24 History release sitagliptin phosphate 50 mg tablet 50 mg PO QAM #0 tabs 02/22/18 09/14/24 History (Januvia) levothyroxine 75 mcg tablet 75 mcg PO DAILYBB 90 days #90 tabs 05/25/18 09/14/24 History rosuvastatin 20 mg tablet 20 mg PO PM 04/14/19 09/14/24 History magnesium oxide 400 mg PO QAM 09/13/23 09/14/24 History montelukast 10 mg tablet 10 mg PO QAM 09/13/23 09/14/24 History isosorbide mononitrate 30 mg 30 mg PO QAM #30 tabs 08/03/24 09/14/24 Rx tablet,extended release 24 hr metoprolol succinate 50 mg 50 mg PO BID #60 tabs 08/03/24 09/14/24 Rx tablet,extended release 24 hr melatonin 3 mg capsule 3 mg PO HS #30 caps 08/06/24 09/14/24 Rx albuterol sulfate 2.5 mg/3 mL 2.5 mg inhalation Q4H PRN 09/14/24 09/14/24 History (0.083 %) solution for nebulization Shortness Of Breath Or Wheezing apixaban 5 mg tablet (Eliquis) 5 mg PO AMHS 09/14/24 09/14/24 History apixaban 2.5 mg tablet (Eliquis) 2.5 mg PO BID 30 days #60 tabs 09/19/24 Rx furosemide 40 mg tablet 40 mg PO BID17 30 days #60 tabs 09/19/24 Rx mometasone-formoterol HFA 100 2 inh inhalation BID #13 grams 09/19/24 Rx mcg-5 mcg/actuation aerosol inhaler (Dulera) nystatin 100,000 unit/gram topical 1 applic EXT BID #30 grams 09/19/24 Rx powder (Nystop) potassium chloride 20 mEq 20 meq PO BID 30 days #60 tabs 09/19/24 Rx tablet,extended release Hospital Stay Data Consultations 09/14/24 21:13 ED Decision to Admit Stat 09/15/24 08:00 Consult Obstetrics Routine Diagnostic Imagining Performed 09/14/24 19:34 CT abd pelvis wo con Stat 12/06/24 19:52 US Pelvis [US pelvic complete] Stat Hemoglobin 7.8, stable Creatinine 1.27, baseline Pelvic ultrasound showed no gross abnormality CT of the abdomen pelvis showed lesion within the pancreatic head 2.6 x 0.6 cm Pending Results Patient Have Any Pending Studies at Discharge: No Discharge Instructions Given to Patient (Per Discharging Provider) Continue with home health care as previously arranged Monitor for any recurrent bleeding Home Health Attestation I certify that this patient is under my care and that I, or a physicians intellectual property legal assistant working with me, had a face to-face encounter that meets the home health krze-ip-gozs encounter requirements with this patient. The encounter with the patient was in whole, or in part, for the following medical condition, which is the primary reason for home health care (list medical condition): I certify that, based on my findings, the following services are medically necessary home health services: My clinical findings support the need for the above services because: Further, I certify that my clinical findings support that this patient is homebound (i.e. absences from home require considerable and taxing effort and ar e for medical reasons or church services or infrequently or of short duration when for other reasons) because: Certification for Home Health Services: Based on the above findings, I certify that this patient is confined to the home and needs intermittent jail care, physical therapy and/or speech therapy or continues to need occupational therapy. The patient is under my care, and I have initiated the establishment of the plan of care. This patient will be followed by a physician who will periodically review the plan of care. Total Time Total Time Spent Total Time Spent (In Minutes): 35
[2024-09-19 11:41] VITALS: BP 106/64; O2SAT 95
[2024-09-19 14:58] VITALS: PULSE 87; RESP 18
== END 2024-09-19 16:39 | disposition home health service (06) | DRG 811 ==
LOC: ED 19:20 → 2S 09-15 00:27 → SUATTDRO 09-15 00:27 → 2S 09-15 03:46 → 4W 09-18 10:03

== ENCOUNTER 2024-09-20 14:31 | Inpatient (IN) ==
--- NOTE | 2024-09-20 14:43 | Emergency Department Note ---
Impression & Plan COVID-19 ADMIT ED Provider Note HPI: History obtained from patient. The patient is a 89-year-old female with history of anemia, atrial fibrillation currently on anticoagulation with Eliquis, chronic kidney disease, who presents the emergency department chief complaint of cough and shortness of breath in the setting of recently diagnosed COVID-19 infection. Patient is alert and oriented x 3 on arrival however she is an overall poor historian, when asked her how she is feeling she denies any current complaints of pain. Patient is hemodynamically stable on 2 L nasal cannula oxygen on arrival. Patient presents with borderline temperature at 37.8. ROS: - Per HPI Differential Diagnosis: Pneumonia, dyspnea secondary to COVID-19 infection, pulmonary edema, CHF exacerbation, sepsis, amongst other potential pathologies. *Outpatient medications and allergy history reviewed. PE: General: Alert, frail-appearing HEENT: Normocephalic, trachea midline Eyes: Extraocular eye movement is intact, no scleral erythema Pulmonary: Diminished bilateral breath sounds with mild expiratory wheezing bilaterally Cardio: Regular rate and irregular rhythm GI: Abdomen is soft to palpation : No suprapubic tenderness MSK: No evidence of trauma or malformation of the extremities, no edema Skin: No evidence of rash Neuro: Alert, no focal deficits Psychiatric: Cooperative INDEPENDENT INTERPRETATIONS: milk route deliverer: (As interpreted by myself): - An order was placed for continuous cardiac monitoring - Patient was noted to be in atrial fibrillation with a rate of 98 EKG: (As interpreted by myself): Rate: 99 Rhythm: Atrial fibrillation Intervals: Within normal limits ST changes: No ST elevation Time: 1459 Chest x-ray: (As interpreted by myself): Bilateral lower lung infiltrates Interventions provided in ED: -DuoNeb breathing treatment Medical Decision Making: IV was established and lab work obtained, patient was placed on back line cook. Lab work shows no leukocytosis, hemoglobin is stable at 9.5, platelet count is normal, venous blood gas shows alkalotic pH at 7.48 with a pCO2 of 52, CMP does not show any evidence of any critical findings, troponin is mildly elevated at 32.1, BNP is elevated at 524. Procalcitonin is low at 0.03, viral panel testing is positive for COVID-19. Chest x-ray shows apparent bilateral lower lobe infiltrates. I suspect at this point this is likely viral in nature given the patient's lack of leukocytosis and low procalcitonin. This is likely related to the patient's COVID-19 infection. Patient was given a DuoNeb breathing treatment on arrival, she reportedly uses 2 L nasal cannula oxygen at home only intermittently and today as needed if more consistently. Given this I do feel that she should be admitted to the hospital as she was just discharged yesterday and does not seem to be doing very well. I discussed the above findings with the on-call midlevel provider for [facility] and the patient was admitted in stable condition to the service of Dr. Martin. The patient and her daughter at the bedside are in agreement to this plan. Consultants/Discussions held with other healthcare providers: -Hospitalist, Dr. Martin Disposition discussion held by myself with: -Patient and patient's daughter at the bedside Diagnosis: 1. COVID-19 infection, acute 2. Viral pneumonia, acute 3. Acute bronchospasm 4. Anemia, chronic, stable Disposition: Admission Jian Valderrama DO Emergency Medicine Past Med/Surg History Problem List (Updated 09/20/24 @ 16:56 by Jian Valderrama DO) COVID-19 (Acute) Pancreatic lesion Vulvar atrophy Blood in underwear Post-menopausal Chronic anticoagulation (Acute) Acute blood loss anemia (Acute) Anemia Pulmonary hypertension Acute hypoxemic respiratory failure Pulmonary emboli (Acute) Non-ST elevation HI (NSTEMI) (Acute) Chest pain (Acute) Chronic anticoagulation (Acute) Respiratory syncytial virus (RSV) (Acute) Acute on chronic respiratory failure (Acute) Right middle lobe pneumonia Chronic diastolic heart failure COPD (chronic obstructive pulmonary disease) CKD (chronic kidney disease), stage III RSV (acute bronchiolitis due to respiratory syncytial virus) DM (diabetes mellitus), type 2 Acute and chronic respiratory failure Dyspnea (Acute) Colon arteriovenous malformation Acute on chronic right heart failure Acute GI bleeding (Acute) Anemia (Acute) Symptomatic anemia (Acute) Acute dyspnea (Acute) Atrial fibrillation (Chronic 04/18/13) Diabetes (Chronic) Shoulder pain, left (Chronic 08/26/14) Hypertensive urgency (Chronic) CHF (congestive heart failure) (Chronic) Asthma (Chronic) Acute bronchitis (Acute) Anticoagulated on Coumadin (Acute) Blood in left ear canal (Acute) CHF exacerbation (Acute) Cellulitis (Acute) Chest pain (Acute) Hypertension (Acute) Supratherapeutic INR (Acute) Medical History Acute blood loss anemia Bleeding from varicose vein Supratherapeutic INR Hyperlipidemia Hypotension, postural Permanent atrial fibrillation Heart failure with preserved ejection fraction (HFpEF, >= 50%) Hypertension Cardiac pacemaker in situ Tachy-pham syndrome Atrial fibrillation Acute on chronic diastolic CHF (congestive heart failure), NYHA class 3 MACARIO (dyspnea on exertion) Acute dyspnea Acute exacerbation of congestive heart failure Acute decompensated heart failure Family History Other Alzheimer disease Breast cancer Social History Smoking Status: Never smoker Second Hand Exposure: No; Do You Dip or Chew Tobacco: No; Hx Alcohol Use: Yes Hx Substance Use: No Preferred Language: Icelandic Communication Ability: Effective Lubrication Equipment Servicer Required: No Beliefs That Will Affect Care: None marital status: Current Living Situation: Spouse and Family Current Living Situation Comment: spouse, daughter, son, daughter in law, grandchildren Feels Safe at Home: Yes Assistive Devices: CPAP, Oxygen - at Night and Walker Allergies Allergies Allergy/AdvReac Type Severity Reaction Status Date / Time Penicillins Allergy Intermediate RASH Verified 09/20/24 16:32 latex Allergy Rash Verified 09/20/24 16:32 quetiapine [From Seroquel] AdvReac Intermediate sedation Verified 09/20/24 16:32 olanzapine [From Zyprexa] AdvReac Mild Confusion Verified 09/20/24 16:32 glipizide AdvReac dizziness/c Verified 09/20/24 16:32 onfusion Home Meds Home Medications Medication Instructions Recorded Confirmed pantoprazole 40 mg tablet,delayed 40 mg PO QAM ##0 12/25/14 09/20/24 release sitagliptin phosphate 50 mg tablet 50 mg PO QAM #0 tabs 02/22/18 09/20/24 (Januvia) levothyroxine 75 mcg tablet 75 mcg PO DAILYBB 90 days #90 tabs 05/25/18 09/20/24 rosuvastatin 20 mg tablet 20 mg PO PM 04/14/19 09/20/24 magnesium oxide 400 mg PO QAM 09/13/23 09/20/24 montelukast 10 mg tablet 10 mg PO QAM 09/13/23 09/20/24 albuterol sulfate 2.5 mg/3 mL 2.5 mg continuous nebulization UD 09/20/24 09/20/24 (0.083 %) solution for nebulization PRN Shortness Of Breath Or Wheezing budesonide 0.5 mg/2 mL suspension 0.5 mg NEB BID 09/20/24 09/20/24 for nebulization furosemide 40 mg tablet 40 mg PO BID 09/20/24 09/20/24 Previous Rx's Medication Instructions Recorded isosorbide mononitrate 30 mg 30 mg PO QAM #30 tabs 08/03/24 tablet,extended release 24 hr metoprolol succinate 50 mg 50 mg PO BID #60 tabs 08/03/24 tablet,extended release 24 hr melatonin 3 mg capsule 3 mg PO HS #30 caps 08/06/24 apixaban 2.5 mg tablet (Eliquis) 2.5 mg PO BID 30 days #60 tabs 09/19/24 nystatin 100,000 unit/gram topical 1 applic EXT BID #30 grams 09/19/24 powder (Nystop) potassium chloride 20 mEq 20 meq PO BID 30 days #60 tabs 09/19/24 tablet,extended release Results & Data (ED) Vital Signs Vital Signs - 24 hr 09/20/24 14:51 09/20/24 14:52 09/20/24 14:52 Temperature 37.8 C H Temperature Source Oral Pulse Rate 97 H 97 H Pulse Rate [Apical] Respiratory Rate 22 Respiratory Effort / Characteristics Non-Labored Labored Respiratory Depth Normal Blood Pressure 162/100 H Blood Pressure [Left Arm] Blood Pressure Mean 120 Blood Pressure Mean [Left Arm] Pulse Oximetry 99 Oxygen Delivery Method Room Air Room Air Oxygen Flow Rate Sepsis Recent Fever Within 48 Hours Yes Sepsis New/Unexplained Change in Mental Status No Sepsis Action Taken by Nursing No Action Required 09/20/24 14:52 09/20/24 14:52 09/20/24 14:52 Temperature Temperature Source Pulse Rate Pulse Rate [Apical] Respiratory Rate 22 Respiratory Effort / Characteristics Respiratory Depth Normal Blood Pressure Blood Pressure [Left Arm] Blood Pressure Mean Blood Pressure Mean [Left Arm] Pulse Oximetry 99 Oxygen Delivery Method Nasal Cannula Room Air Oxygen Flow Rate 3 Sepsis Recent Fever Within 48 Hours Sepsis New/Unexplained Change in Mental Status Sepsis Action Taken by Nursing 09/20/24 15:54 09/20/24 16:47 Temperature Temperature Source Pulse Rate Pulse Rate [Apical] 97 H 112 H Respiratory Rate 24 26 H Respiratory Effort / Characteristics Respiratory Depth Blood Pressure Blood Pressure [Left Arm] 167/79 H 147/102 H Blood Pressure Mean Blood Pressure Mean [Left Arm] 108 117 Pulse Oximetry 97 91 Oxygen Delivery Method Nasal Cannula Nasal Cannula Oxygen Flow Rate 2 4 Sepsis Recent Fever Within 48 Hours Sepsis New/Unexplained Change in Mental Status Sepsis Action Taken by Nursing Laboratory Data 09/20/24 14:47 09/20/24 14:47 Lab Results 09/20/24 09/20/24 09/20/24 Range/Units 14:45 14:47 15:37 WBC 8.29 (4.8-10.8) K/ul RBC 3.70 L (4.20-5.40) M/uL Hgb 9.5 L (12.0-16.0) g/dl Hct 30.6 L (37.0-47.0) % MCV 82.7 (80.0-100.0) fL MCH 25.7 (25.0-34.0) pg MCHC 31.0 L (32.0-36.0) g/dL RDW Std Deviation 48.1 H (36.4-46.3) fL RDW Coeff of Popeye 15.9 H (11.5-14.5) % Plt Count 285 (130-400) K/uL MPV 10.2 (9.4-12.4) fL Immature Gran % (Auto) 0.4 % Neut % (Auto) 84.8 % Lymph % (Auto) 6.3 % Kerr % (Auto) 7.4 % Eos % (Auto) 1.0 % Baso % (Auto) 0.1 % Neut # (Auto) 7.04 H (1.40-6.50) K/uL Lymph # (Auto) 0.52 L (1.20-3.40) K/uL Kerr # (Auto) 0.61 H (0.11-0.59) K/uL Eos # (Auto) 0.08 (0.00-0.50) K/uL Baso # (Auto) 0.01 (0.00-0.20) K/uL Immature Gran # (Auto) 0.03 (0.01-0.20) K/uL PT 11.9 (9.0-12.0) Seconds INR 1.1 (0.9-1.1) VBG pH 7.48 H (7.36-7.41) VBG pCO2 52 H (38-50) mmHg VBG pO2 37 mmHg VBG HCO3 39 mmol/L VBG O2 Saturation < 60.0 % VBG Base Excess 13.0 mEq/L Sodium 138 (136-145) mmol/L Potassium 4.2 (3.5-5.1) mmol/L Chloride 96 L (98-107) mmol/L Carbon Dioxide 34 H (21-32) mmol/L Anion Gap 8 (3-11) BUN 29 H (6-23) mg/dl Creatinine 1.07 (0.6-1.2) mg/dl Est Cr Clr Drug Dosing Not Reportable eGFR 49.65 BUN/Creatinine Ratio 27.1 H (10-20) Glucose 99 (70-99(Fasting)) mg/dl Lactate 1.6 (0.4-2.0) mmol/L Calcium 9.2 (8.6-10.3) mg/dl Total Bilirubin 0.8 (0.2-1.0) mg/dl AST 21 (13-39) U/L ALT 13 (7-52) U/L Alkaline Phosphatase 93 (34-104) U/L Troponin I High Sens 32.1 H (0-14) pg/ml B-Natriuretic Peptide 524 H (0-100) pg/ml Total Protein 7.2 (6.0-8.3) gm/dl Albumin 4.4 (3.4-5.0) gm/dl Globulin 2.8 (2.5-4.0) gm/dl Albumin/Globulin Ratio 1.6 (0.9-2) Procalcitonin 0.03 (0-0.5) ng/ml Adenovirus (PCR) Not Detected (NotDetected) B. pertussis DNA (PCR) Not Detected (NotDetected) B.parapertussis DNA PCR Not Detected (NotDetected) C. pneumoniae DNA (PCR) Not Detected (NotDetected) Coronavirus OC43 (PCR) Not Detected (NotDetected) Coronavirus HKU1 (PCR) Not Detected (NotDetected) Coronavirus 229E (PCR) Not Detected (NotDetected) SARS-CoV-2 (PCR) DETECTED A (NotDetected) Coronavirus NL63 (PCR) Not Detected (NotDetected) Human Metapneumovir PCR Not Detected (NotDetected) Influenza Type A (PCR) Not Detected (NotDetected) Influenza Type B (PCR) Not Detected (NotDetected) M. pneumoniae (PCR) Not Detected (NotDetected) Parainfluenza 1 (PCR) Not Detected (NotDetected) Parainfluenza 2 (PCR) Not Detected (NotDetected) Parainfluenza 3 (PCR) Not Detected (NotDetected) Parainfluenza 4 (PCR) Not Detected (NotDetected) RSV (PCR) Not Detected (NotDetected) Entero/Rhino (PCR) Not Detected (NotDetected) Administered Medications Discontinued Medications Albuterol (Albut/Ipratrop 3mg/0.5mg Neb 3 Ml Vial) 3 ml NEB NOW STA; Protocol Stop: 09/20/24 16:00 Last Admin: 09/20/24 16:08 Dose: 3 ml Documented By: JHONATAN Imaging Data Radiologist's Impression: Chest X-Ray 09/20/24 14:35 XR chest 1V portable HISTORY: 89 years-old Female Dyspnea COMPARISON: Chest radiograph 09/15/2024, CTA chest 07/30/2024. TECHNIQUE: AP view of the chest FINDINGS: Cardiac silhouette is enlarged. Unchanged bilateral hilar enlargement. Single lead left subclavian pacer. Vascular congestion with interstitial coarsening. Mild right hemidiaphragmatic elevation. Moderate basilar opacities. Bones appear grossly intact. IMPRESSION: 1. Cardiomegaly with pulmonary arterial hypertension and mild pulmonary edema. 2. There are new right basilar opacities suspicious for pneumonia. ACT 112: Negative or not required by law. The above report was generated using voice recognition software. It may contain grammatical, syntax or spelling errors. Electronically signed by: Ambrocio Shields M.D. 09/20/2024 3:12 PM Discharge Plan Visit Data Chief Complaint: Shortness of Breath/Dyspnea Stated Complaint: SOB, COVID + ED Provider: Jian Valderrama Discharge Problem: COVID-19 Forms Stand Alone Forms: [facility] Prescriptions Prescriptions: No Action pantoprazole 40 mg Tablet,Delayed Release (Dr/Ec) 40 mg PO QAM Qty: 0 Januvia 50 mg Tablet 50 mg PO QAM Qty: 0 levothyroxine 75 mcg Tablet 75 mcg PO DAILYBB 90 Days Qty: 90 rosuvastatin 20 mg tablet 20 mg PO PM montelukast 10 mg tablet 10 mg PO QAM magnesium oxide 400 mg magnesium Tablet 400 mg PO QAM metoprolol succinate 50 mg Tablet Extended Release 24 Hr 50 mg PO BID Qty: 60 0RF isosorbide mononitrate 30 mg Tablet Extended Release 24 Hr 30 mg PO QAM Qty: 30 0RF melatonin 3 mg capsule 3 mg PO HS Qty: 30 0RF nystatin [Nystop] 100,000 unit/gram Powder 1 applic EXT BID Qty: 30 0RF Eliquis 2.5 mg Tablet 2.5 mg PO BID 30 Days Qty: 60 0RF potassium chloride 20 mEq tablet extended release 20 meq PO BID 30 Days Qty: 60 0RF furosemide 40 mg tablet 40 mg PO BID albuterol sulfate 2.5 mg /3 mL (0.083 %) solution for nebulization 2.5 mg continuous nebulization UD PRN (Reason: Shortness Of Breath Or Wheezing) Rx Instructions: 2.5 mg inhaled 4 times daily and every 4 hours as needed budesonide 0.5 mg/2 mL suspension for nebulization 0.5 mg NEB BID Referrals Referrals: Chad Phoenix DO [Primary Care Provider] -
[2024-09-20 15:09] LABS: Basophils # (auto) 0.01 K/uL (0.00-0.20); Basophils % (auto) 0.1 %; Eosinophils # (auto) 0.08 K/uL (0.00-0.50); Hematocrit (blood only) 30.6 % (37.0-47.0); Hemoglobin 9.5 g/dl (12.0-16.0); Immature Granulocytes # (auto) 0.03 K/uL (0.01-0.20); Immature Granulocytes % (auto) 0.4 %; Lymphocytes # (auto) 0.52 K/uL (1.20-3.40); Lymphocytes % (auto) 6.3 %; Mean Corpuscular Hemoglobin 25.7 pg (25.0-34.0); Mean Corpuscular Volume 82.7 fL (80.0-100.0); Mean Platelet Volume 10.2 fL (9.4-12.4); Monocytes # (auto) 0.61 K/uL (0.11-0.59); Monocytes % (auto) 7.4 %; Neutrophils # (auto) 7.04 K/uL (1.40-6.50); Neutrophils % (auto) 84.8 %; Platelet Count 285 K/uL (130-400); RDW Coefficient of Variation 15.9 % (11.5-14.5); RDW Standard Deviation 48.1 fL (36.4-46.3); White Blood Count 8.29 K/ul (4.8-10.8)
--- NOTE | 2024-09-20 15:18 | XRay Report ---
XR chest 1V portable HISTORY: 89 years-old Female Dyspnea COMPARISON: Chest radiograph 09/15/2024, CTA chest 07/30/2024. TECHNIQUE: AP view of the chest FINDINGS: Cardiac silhouette is enlarged. Unchanged bilateral hilar enlargement. Single lead left subclavian pa cer. Vascular congestion with interstitial coarsening. Mild right hemidiaphragmatic elevation. Modera te basilar opacities. Bones appear grossly intact. IMPRESSION: 1. Cardiomegaly with pulmonary arterial hypertension and mild pulmonary edema. 2. There are new right basilar opacities suspicious for pneumonia. ACT 112: Negative or not required by law. The above report was generated using voice recognition software. It may contain grammatical, syntax o r spelling errors. Electronically signed by: Ambrocio Shields M.D. 09/20/2024 3:12 PM
[2024-09-20 15:39] LABS: Troponin I High Sensitivity 32.1 pg/ml (0-14)
[2024-09-20 15:46] LABS: HCO3 VBG 39 mmol/L; Oxygen Saturation VBG < 60.0 %; PCO2 VBG 52 mmHg (38-50); PO2 VBG 37 mmHg; pH VBG 7.48 (7.36-7.41)
[2024-09-20 15:55] LABS: INR 1.1 (0.9-1.1); Prothrombin Time 11.9 Seconds (9.0-12.0)
[2024-09-20 15:57] LABS: Adenovirus PCR Not Detected (NotDetected); Bordetella parapertussis PCR Not Detected (NotDetected); Bordetella pertussis PCR Not Detected (NotDetected); Chlamydia pneumoniae PCR Not Detected (NotDetected); Coronavirus 229E PCR Not Detected (NotDetected); Coronavirus CoV-2 (COVID19)PCR DETECTED (NotDetected); Coronavirus HKU1 PCR Not Detected (NotDetected); Coronavirus NL63 PCR Not Detected (NotDetected); Coronavirus OC43PCR Not Detected (NotDetected); Human Metapneumovirus PCR Not Detected (NotDetected); Influenza A PCR Not Detected (NotDetected); Influenza B PCR Not Detected (NotDetected); Mycoplasma pneumoniae PCR Not Detected (NotDetected); Parainfluenza Virus 1 PCR Not Detected (NotDetected); Parainfluenza Virus 2 PCR Not Detected (NotDetected); Parainfluenza Virus 3 PCR Not Detected (NotDetected); Parainfluenza Virus 4 PCR Not Detected (NotDetected); Respiratory Syncytial VirusPCR Not Detected (NotDetected); Rhinovirus/Enterovirus PCR Not Detected (NotDetected)
[2024-09-20 16:05] LABS: Alanine Aminotransferase 13 U/L (7-52); Albumin Globulin Ratio 1.6 (0.9-2); Albumin Level 4.4 gm/dl (3.4-5.0); Alkaline Phosphatase 93 U/L (34-104); Anion Gap 8 (3-11); Aspartate Aminotransferase 21 U/L (13-39); BUN Creatinine Ratio 27.1 (10-20); Bilirubin,Total 0.8 mg/dl (0.2-1.0); Blood Urea Nitrogen 29 mg/dl (6-23); Calcium 9.2 mg/dl (8.6-10.3); Carbon Dioxide 34 mmol/L (21-32); Chloride 96 mmol/L (98-107); Globulin 2.8 gm/dl (2.5-4.0); Glucose 99 mg/dl (70-99(Fasting)); Potassium 4.2 mmol/L (3.5-5.1); Sodium 138 mmol/L (136-145); Total Protein 7.2 gm/dl (6.0-8.3)
[2024-09-20] MEDS: ALBUT/IPRATROP 3MG/0.5MG NEB 3 ML VIAL NEB STA (16:08)
[2024-09-20] MEDS: DEXAMETHASONE SOD INJ 4 MG/ML VIAL IV STA (16:57)
--- NOTE | 2024-09-20 17:09 | History & Physical Report ---
Date of Service September 20, 2024 Assessment & Plan (1) Acute hypoxemic respiratory failure due to COVID-19: (2) Acute on chronic respiratory failure: (3) COPD (chronic obstructive pulmonary disease): (4) Heart failure with preserved ejection fraction (HFpEF, >= 50%): (5) Pulmonary hypertension: (6) Chronic anticoagulation: (7) CKD (chronic kidney disease), stage III: (8) Permanent atrial fibrillation: Plan Patient 89-year-old female with chronic hypoxic respiratory failure, COPD and pulmonary hypertension presents with acute COVID respiratory failure. She is at high risk for severe disease with her underlying comorbidities and her age. Patient requires hospital level care and interventions. Admit to monitored unit IV remdesivir Decadron Antitussives and mucolytics Continue nebulizers as at home and addition to DuoNeb Monitor laboratory studies Give additional IV Lasix to minimize risk of volume overload in the setting of chronic heart failure with preserved ejection fraction Daughter at bedside agreeable plan of care, confirmed DNR/DNI status, however w ould be agreeable to high flow nasal cannula oxygen. History of Present Illness Chief Complaint: Shortness of breath, cough, respiratory distress. Primary Care Provider: Chad Phoenix DO Patient is an 89-year-old female with known COPD, chronic hypoxic respiratory failure pulmonary emboli and pulmonary hypertension was just discharged from the hospital yesterday after acute blood loss anemia where she required transfusion of packed red blood cells. Earlier this week her had tested positive for COVID however the patient did not seem to be symptomatic yesterday when she was discharged in the goal was to get her home. Patient today seem to have much more respiratory distress than at the time of discharge yesterday. Visiting nurse was in to establish care with the patient was concerned with the lung sounds and recommended they seek attention in the emergency room. In the emergency room she tested positive for COVID-19. She initially was saturating in the low 90s on her usual 2 L of oxygen however have had to increase the oxygen during my evaluation. Daughter is at the bedside. Not aware of any fevers. However she did state that it seems as though patient was having more effort to breathe and sounded more congestion. Allergies Allergy/AdvReac Type Severity Reaction Status Date / Time Penicillins Allergy Intermediate RASH Verified 09/20/24 16:32 latex Allergy Rash Verified 09/20/24 16:32 quetiapine [From Seroquel] AdvReac Intermediate sedation Verified 09/20/24 16:32 olanzapine [From Zyprexa] AdvReac Mild Confusion Verified 09/20/24 16:32 glipizide AdvReac dizziness/c Verified 09/20/24 16:32 onfusion Home Medications Medication Instructions Recorded Confirmed Type pantoprazole 40 mg tablet,delayed 40 mg PO QAM ##0 12/25/14 09/20/24 History release sitagliptin phosphate 50 mg tablet 50 mg PO QAM #0 tabs 02/22/18 09/20/24 History (Januvia) levothyroxine 75 mcg tablet 75 mcg PO DAILYBB 90 days #90 tabs 05/25/18 09/20/24 History rosuvastatin 20 mg tablet 20 mg PO PM 04/14/19 09/20/24 History magnesium oxide 400 mg PO QAM 09/13/23 09/20/24 History montelukast 10 mg tablet 10 mg PO QAM 09/13/23 09/20/24 History isosorbide mononitrate 30 mg 30 mg PO QAM #30 tabs 08/03/24 09/20/24 Rx tablet,extended release 24 hr metoprolol succinate 50 mg 50 mg PO BID #60 tabs 08/03/24 09/20/24 Rx tablet,extended release 24 hr melatonin 3 mg capsule 3 mg PO HS #30 caps 08/06/24 09/20/24 Rx apixaban 2.5 mg tablet (Eliquis) 2.5 mg PO BID 30 days #60 tabs 09/19/24 09/20/24 Rx nystatin 100,000 unit/gram topical 1 applic EXT BID #30 grams 09/19/24 09/20/24 Rx powder (Nystop) potassium chloride 20 mEq 20 meq PO BID 30 days #60 tabs 09/19/24 09/20/24 Rx tablet,extended release albuterol sulfate 2.5 mg/3 mL 2.5 mg continuous nebulization UD 09/20/24 09/20/24 History (0.083 %) solution for nebulization PRN Shortness Of Breath Or Wheezing budesonide 0.5 mg/2 mL suspension 0.5 mg NEB BID 09/20/24 09/20/24 History for nebulization furosemide 40 mg tablet 40 mg PO BID 09/20/24 09/20/24 History Past Med/Surg History Problem List (Updated 09/20/24 @ 17:14 by Junior Bahena DO) Acute hypoxemic respiratory failure due to COVID-19 COVID-19 (Acute) Pancreatic lesion Vulvar atrophy Blood in underwear Post-menopausal Chronic anticoagulation (Acute) Acute blood loss anemia (Acute) Anemia Pulmonary hypertension Acute hypoxemic respiratory failure Pulmonary emboli (Acute) Non-ST elevation DE (NSTEMI) (Acute) Chest pain (Acute) Chronic anticoagulation (Acute) Respiratory syncytial virus (RSV) (Acute) Acute on chronic respiratory failure (Acute) Right middle lobe pneumonia Chronic diastolic heart failure COPD (chronic obstructive pulmonary disease) CKD (chronic kidney disease), stage III RSV (acute bronchiolitis due to respiratory syncytial virus) DM (diabetes mellitus), type 2 Acute and chronic respiratory failure Dyspnea (Acute) Colon arteriovenous malformation Acute on chronic right heart failure Acute GI bleeding (Acute) Anemia (Acute) Symptomatic anemia (Acute) Acute dyspnea (Acute) Atrial fibrillation (Chronic 04/18/13) Diabetes (Chronic) Shoulder pain, left (Chronic 08/26/14) Hypertensive urgency (Chronic) CHF (congestive heart failure) (Chronic) Asthma (Chronic) Acute bronchitis (Acute) Anticoagulated on Coumadin (Acute) Blood in left ear canal (Acute) CHF exacerbation (Acute) Cellulitis (Acute) Chest pain (Acute) Hypertension (Acute) Supratherapeutic INR (Acute) Medical History Acute blood loss anemia Bleeding from varicose vein Supratherapeutic INR Hyperlipidemia Hypotension, postural Permanent atrial fibrillation Heart failure with preserved ejection fraction (HFpEF, >= 50%) Hypertension Cardiac pacemaker in situ Tachy-pham syndrome Atrial fibrillation Acute on chronic diastolic CHF (congestive heart failure), NYHA class 3 MACARIO (dyspnea on exertion) Acute dyspnea Acute exacerbation of congestive heart failure Acute decompensated heart failure Family History Other Alzheimer disease Breast cancer Social History Smoking Status: Never smoker Second Hand Exposure: No; Do You Dip or Chew Tobacco: No; Hx Alcohol Use: Yes Hx Substance Use: No Preferred Language: Mongolian Communication Ability: Effective Cooling System Operator Required: No Beliefs That Will Affect Care: None marital status: Current Living Situation: Spouse and Family Current Living Situation Comment: spouse, daughter, son, daughter in law, grandchildren Feels Safe at Home: Yes Assistive Devices: CPAP, Oxygen - at Night and Walker Review of Systems Review of Systems: Pertinent positive and negative review of systems as mentioned in the HPI Physical Exam Physical Exam: Constitutional: Alert, ill in appearance, nontoxic HEENT: Mucous membranes moist. Sclera clear Neck: Soft, no adenopathy Lungs: Decreased breath sounds, prolonged expiratory phase, coarse upper respiratory rhonchi, no wheezes, moderate distress CV: S1-S2, irregular irregular Abdomen: Soft, nontender, nondistended Extremities: No significant edema Musculoskeletal: No significant joint tenderness Neuro: No focal deficits, generalized weakness Psych: Cooperative, abnormal memory and cognition Results & Data Results & Data Vital Signs (Past 12 Hours) Vital Signs Temp Pulse Pulse Resp BP BP Pulse Ox 09/20/24 17:04 101 H 26 H 136/72 92 09/20/24 16:47 112 H 26 H 147/102 H 91 09/20/24 15:54 97 H 24 167/79 H 97 09/20/24 14:52 09/20/24 14:52 22 09/20/24 14:52 99 09/20/24 14:52 09/20/24 14:52 37.8 C H 97 H 22 162/100 H 99 09/20/24 14:51 97 H O2 Del Method O2 Flow Rate 09/20/24 17:04 Nasal Cannula 4 09/20/24 16:47 Nasal Cannula 4 09/20/24 15:54 Nasal Cannula 2 09/20/24 14:52 Room Air 09/20/24 14:52 09/20/24 14:52 Nasal Cannula 3 09/20/24 14:52 Room Air 09/20/24 14:52 Room Air 09/20/24 14:51 Diagnostic Findings Reviewed imaging, laboratory and diagnostic studies. Pertinent findings as julianne guzman Personally reviewed chest x-ray, bilateral infiltrates consistent with viral pneumonia Personally reviewed EKG chronic atrial fibrillation Respiratory viral panel positive for COVID-19 WBCs 8.2 Hemoglobin 9.5, improved Venous blood gas reviewed Creatinine 1.07 Troponin 32.1 BNP 524 Code Status & VTE Plan VTE Prophylaxis Plan VTE Prophylaxis will be ordered: Yes (4) Heart failure with preserved ejection fraction (HFpEF, >= 50%) Heart failure chronicity: chronic Qualified Code(s): I50.32 - Chronic diastolic (congestive) heart failure
[2024-09-20] MEDS: REMDESIVIR 200 MG in SODIUM CHLORIDE 0.9% 210 ML IV STA (17:38)
[2024-09-20] MEDS: ACETAMINOPHEN 325 MG TAB ONE (18:41)
[2024-09-20] MEDS ORDERED: HYDROcodone/HOMATROPINE SYRUP 5MG/1.5MG 5ML UDP PO PRN (19:49)
[2024-09-20] MEDS ORDERED: MAGNESIUM HYDROXIDE SUSP 30 ML UDC PO PRN (19:49)
[2024-09-20] MEDS ORDERED: METOPROLOL TARTRATE 1 MG/ML VIAL IV PRN (19:49)
[2024-09-20] MEDS ORDERED: ONDANSETRON INJ 2 MG/ML 2 ML VIAL IV PRN (19:49)
[2024-09-20] MEDS ORDERED: BENZONATATE 100 MG CAPSULE PO PRN (19:49)
[2024-09-20] MEDS ORDERED: ACETAMINOPHEN 325 MG TAB PO PRN (19:49)
[2024-09-20] MEDS ORDERED: Patient's HEIGHT &/or WEIGHT Needed SCH (20:00)
[2024-09-20] MEDS: ALBUT/IPRATROP 3MG/0.5MG NEB 3 ML VIAL NEB SCH (20:20)
[2024-09-20] MEDS: BUDESONIDE 0.5 MG/2 ML VIAL (PULMICORT) NEB SCH (20:21)
[2024-09-20] MEDS: guaiFENesin 600 MG TABCR PO SCH (20:48)
[2024-09-20] MEDS: FUROSEMIDE 40 MG/4 ML VIAL IV ONE (20:48)
[2024-09-20] MEDS: MELATONIN 3 MG TAB PO SCH (20:49)
[2024-09-20] MEDS: METOPROLOL SUCC 50MG EXT REL TAB PO SCH (20:49)
[2024-09-20] MEDS: ROSUVASTATIN CALCIUM 20 MG TAB PO SCH (20:50)
[2024-09-20] MEDS: NYSTATIN POWDER 15GM BTL EXT SCH (20:50)
[2024-09-20] MEDS: APIXABAN 2.5 MG TAB PO SCH (21:29)
[2024-09-20] MEDS: POTASSIUM CHLORIDE CRTAB 20 MEQ TABCR PO SCH (21:29)
[2024-09-20] MEDS: INSULIN ASPART PER UNIT CHARGE SC SCH (21:45)
[2024-09-21 07:03] LABS: Alanine Aminotransferase 10 U/L (7-52); Aspartate Aminotransferase 17 U/L (13-39)
[2024-09-21] MEDS: LEVOTHYROXINE SODIUM 75 MCG TABLET PO SCH (08:44)
[2024-09-21] MEDS: ISOSORBIDE MONO EXTENDED REL 30 MG TABCR PO SCH (08:44)
[2024-09-21] MEDS: FUROSEMIDE 40 MG TAB PO SCH (08:44)
[2024-09-21] MEDS: MAGNESIUM OXIDE 400 MG TAB PO SCH (08:44)
--- NOTE | 2024-09-21 08:44 | Electrocardiogram Report ---
Test Reason : Blood Pressure : */* mmHG Vent. Rate : 99 BPM Atrial Rate : * BPM P-R Int : * ms QRS Dur : 98 ms QT Int : 352 ms P-R-T Axes : * -32 -32 degrees QTcB Int : 451 ms Atrial fibrillation Left axis deviation Diffuse Minor Nonspecific T wave abnormality Abnormal ECG When compared with ECG of 17-Sep-2024 21:29, T wave inversion less evident in Inferior leads T wave inversion no longer evident in Lateral leads Confirmed by Yg Guerrero ([id number]) on 09/21/2024 8:44:41 AM Referred By: REFERRED SELF Confirmed By: gY Guerrero
[2024-09-21] MEDS: MONTELUKAST SODIUM 10 MG TABLET PO SCH (08:45)
[2024-09-21] MEDS: PANTOprazole 40 MG TAB PO SCH (08:45)
[2024-09-21] MEDS ORDERED: SITagliptin PHOSPHATE 25 MG TAB PO SCH (09:00)
[2024-09-21] MEDS: dexAMETHasone 6 MG in SYRINGE 0 ML IV SCH (09:59)
[2024-09-21] MEDS: REMDESIVIR 100 MG in SODIUM CHLORIDE 0.9% 230 ML IV SCH (11:20)
--- NOTE | 2024-09-21 13:16 | Hospitalist Progress Note ---
Date of Service September 21, 2024 Assessment & Plan (1) Acute hypoxemic respiratory failure due to COVID-19: (2) Acute on chronic respiratory failure: (3) COPD (chronic obstructive pulmonary disease): (4) Heart failure with preserved ejection fraction (HFpEF, >= 50%): (5) Pulmonary hypertension: (6) Chronic anticoagulation: (7) CKD (chronic kidney disease), stage III: (8) Permanent atrial fibrillation: Plan Patient with acute on chronic hypoxic respiratory failure due to COVID pneumonia Continue remdesivir Continue Decadron Continue to evaluate daily for additional diuretic needs Continue other medications as ordered Continue chronic Eliquis for atrial fibrillation Updated patient's daughter via phone. Aware patient may need skilled rehab at the time of discharge. Admission and Anticipated Discharge Date Admission Date: September 20, 2024 Subjective Patient denies chest pain. Breathing is about the same. Nursing reports lots of congestion. Tolerating her CPAP at night. Physical Exam Physical Exam: Constitutional: Alert, moderately ill in appearance, mild distress HEENT: Mucous membranes dry Lungs: Decreased breath sounds, coarse rhonchi at the bases, poor airflow throughout, few scattered wheezes CV: S1-S2, regular Abdomen: Soft, nontender, nondistended Extremities: No significant edema Neuro: Generalized weakness, somnolence Psych: Cooperative, Results & Data Results & Data Vital Signs (Past 12 Hours) Vital Signs Temp Pulse Pulse Pulse Resp BP BP 09/21/24 12:00 36.6 C 64 16 108/58 L 09/21/24 11:17 60 14 09/21/24 08:00 36.9 C 66 16 145/84 H 09/21/24 07:45 64 09/21/24 07:45 09/21/24 07:31 66 20 09/21/24 04:07 36.8 C 70 18 138/76 Pulse Ox O2 Del Method O2 Flow Rate 09/21/24 12:00 100 Nasal Cannula 4 09/21/24 11:17 99 Nasal Cannula 4.5 09/21/24 08:00 98 Nasal Cannula 4 09/21/24 07:45 09/21/24 07:45 CPAP 4 09/21/24 07:31 97 Nasal Cannula 4 09/21/24 04:07 96 CPAP Diagnostic Findings Reviewed imaging, laboratory and diagnostic studies. Pertinent findings as below. Hemoglobin 9.5 WBCs 8.2 Creatinine 1.07 AST ALT normal ranges BNP 700 Troponins flat (4) Heart failure with preserved ejection fraction (HFpEF, >= 50%) Heart failure chronicity: chronic Qualified Code(s): I50.32 - Chronic diastolic (congestive) heart failure
[2024-09-21] MEDS: FUROSEMIDE 40 MG/4 ML VIAL IV SCH (13:33)
[2024-09-22 06:57] LABS: BUN Creatinine Ratio 29.4 (10-20); Creatinine Clr Calc Pharmacy 22.6 ml/min; Potassium 3.9 mmol/L (3.5-5.1)
--- OUTSIDE RECORDS SUMMARY | 2024-09-22 08:28 | External Medical Summary | Summary of Care ---
Author Name Unknown Organization [facility] Address [address] [facility] [place] [address] Phone [phone] Care Team Providers Care Launderer Hand Name Role Phone LizettChad Jorge Luis DO Primary Care Provider [phone] Encounter Details Date Type Department Care Team (Late st Contact Info) Description 09/17/2024 Orders Only PATIENT PORTAL DO NOT DELETE THIS DEPT USED BY [place] [id number] Allergies Active Allergy Reactions Criticality Noted Date Comments Glipizide 02/18/2021 Dizzy, confusion Latex Rash 04/05/2024 Penicillins Rash 10/13/2001 Quetiapine Other (Please comment) 08/17/2024 Severe fatigue documented as of this encounter (statuses as of 09/17/2024) Medications NEBULIZER MISCIndications:Ac [place]and[place] bronchitis, complicated use [...] E11.9 100 Strip 3 05/04/20 21 Active oxygen IN GAS Increase to 3 [...] whether stage 3a or 3b CKD ([facility]) Take 1 Tablet by mouth in the morning. In the morning.. 30 Tablet 5 02/01/20 24 Active Furosemide 40 MG Oral Tablet (Lasix)Indications :Heart failure, diastolic, due to HTN ([facility]) TAKE ONE TABLET BY MOUTH [...] A1c goal of less than 8.0% ([facility]) Use up to 4 times a day E11.9 1 Kit 08/17/20 24 Active OneTouch Verio In Vitro Strip (Glucose Blood)Indications: Type 2 diabetes mellitus with hemoglobin A1c goal of less than 8.0% ([facility]) Use up to 4 times a day E11.9 100 Strip 11 08/17/20 24 Active OneTouch UltraSoft LancetsIndications :Type 2 diabetes mellitus with hemoglobin A1c goal of less than 8.0% ([facility]) Use up to four times a day [...] Each 5 09/05/20 24 Active Dexcom G7 Bi Lead Device Use as directed. Check blood sugar regularly E11.9 1 Each 09/05/20 24 Active Albuterol Sulfate (2.5 MG/3ML) 0.083% Inhalation Nebulization Solution (Proventil)Indicat ions:COPD, group B, by GOLD 2017 classification ([facility]) inhale 1 vial via nebulizer every 4 hours as needed for wheezing or shortness of breath 90 mL 2 09/14/20 24 Active documented as of this encounter (statuses as of 09/17/2024) Active Problems Problem Noted Date Diagnosed Date [...] regurgitation by prior echocardi ogram 10/18/2017 terminal clerk 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 therapy 0 10/18/2017 [...] as of this encounter (statuses as of 09/17/2024) Resolved Problems Problem Noted Date Diagnosed Date [...] as of this encounter (statuses as of 09/17/2024) Immunizations Name Administration Dates Next Due COVID-19 [...] [facility] [address] [place] [address] Bryanna Guzman DPM [address] [address] 10/15/2024 3:00 PM EST Office Visit Cardiology, [facility] [address] [place] [address] Yeni Laureano CRNP [address] [place] [address] 01/02/2025 3:00 PM EDT Office Visit Family Practice [facility] [address] [facility] [address] Chad Phoenix, DO [address] [place] [address] 04/30/2025 3:00 PM EDT Office Visit Pulmonary Medicine, [facility] [address] [place] [address] Krunal Sherwood MD [address] [facility] [place] [id number] Health Maintenance Due Date Last Done Comments [...] Additional history exists CKD PHOS USE SMARTSET 70870 05/04/202504/10, 10/20/2022, 12/08/2021, Additional history exists Diabetic Foot Exam 06/05/2025 06/05/2024, 0 10/26/2022, 11/24/2021, Additional history exists TSH 07/24/2025 07/24/2024, 04/10, 04/05/2023, Additional history exists CKD HGB USE SMARTSET 79199 08/17/202508/17, 08/11/2024, 08/10/2024, Additional history exists Depression [...] Care Agent (per Health Care Power of Rn [employer] [facility] document) DAVID JojoKHADRA Adult Child Second Alternate Health Care Agent (per Health Care Power of Rn [employer] [facility] document) Care Teams Launderer Hand Relationship Specialty Start Date End Date Chad Phoenix DO [address] [place] [address] PCP - General Family Medicine 06/02/18 documented as of this encounter
--- OUTSIDE RECORDS SUMMARY | 2024-09-22 08:28 | External Medical Summary | Summary of Care ---
Author Name Unknown Organization [facility] Address [address] [facility] [place] [address] Phone [phone] Care Team Providers Care Primary Products Inspectors Name Role Phone Letitia Posey DO Primary Care Provider [phone] Reason for Visit * Reason Onset Date Comments Medication Refill 09/17/2024 Encounter Details Date Type Department Care Team (Late st Contact Info) Description 09/17/2024 Refill Family Practice [facility] [address] [facility] [place] [address] Letitia Posey DO [address] [facility] [place] [address] Heart failure, diastolic, due to HTN ([facility]) Allergies Active Allergy Reactions Criticality Noted Date Comments Glipizide 02/18/2021 Dizzy, confusion Latex Rash 04/05/2024 Penicillins Rash 10/13/2001 Quetiapine Other (Please comment) 08/17/2024 Severe fatigue documented as of this encounter (statuses as of 09/17/2024) Medications NEBULIZER MISCIndications:Ac [place] bronchitis, complicated use every 8 hrs as [...] morning.. 30 Tablet 5 02/01/20 24 Active Magnesium Oxide 400 MG Oral [...] goal of less than 8.0% ([facility]) Use up to 4 times a day E11.9 100 Strip 11 08/17/20 24 Active OneTouch UltraSoft LancetsIndications :Type 2 diabetes mellitus with hemoglobin A1c goal of less than 8.0% ([facility]) Use up to four times [...] Each 5 09/05/20 24 Active Dexcom G7 Demurrage Clerk Device Use as directed. Check blood sugar regularly E11.9 1 Each 09/05/20 24 Active Albuterol Sulfate (2.5 MG/3ML) 0.083% Inhalation Nebulization Solution (Proventil)Indicat ions:COPD, group B, by GOLD 2017 classification ([facility]) inhale 1 vial via nebulizer every 4 hours as needed for wheezing or shortness of breath 90 mL 2 09/14/20 24 Active Furosemide 40 MG Oral Tablet (Lasix)Indications :Heart failure, diastolic, due to HTN ([facility]) Take 1 Tablet by mouth in the morning and 1 Tablet before bedtime. 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 (Household - for ages [...] Telephone Encounter - Letitia Posey DO - 09/17/2024 4:26 PM ESTSigned Prescriptions: Disp Refills Furosemide 40 MG Oral Tablet (Lasix) 180 Ta*1 Sig: Take 1 Tablet by mouth in the morning and 1 Tablet before bedtime. Authorizing Provider: LETITIA POSEY * Telephone Encounter - Marina Clarke LPN - 09/17/2024 2:19 PM ESTPending Prescriptions: Disp Refills Furosemide 40 MG Oral Tablet (Lasix) 180 Ta*1 Sig: Take 1 Tablet by mouth in the morning and 1 Tablet before bedtime. * Telephone Encounter - Peyton Beckham OSA - 09/17/2024 2:07 PM EST Did you pend patient's preferred pharmacy and medication before forwarding?yes Pharmacy: [facility] [id number] Pending Prescriptions: Disp Refills Furosemide 40 MG Oral Tablet (Lasix) 180 Ta*1 Last Visit: 08/17/2024 (in office), 09/29/2020 (telemedicine) Next Visit: 01/02/2025 If no future appointments scheduled, and last appointment is greater than a year ago, please schedule patient for a follow-up appointment Last date the medication was ordered: [id number] Is this request for a controlled substance?No [...] Care Team (Late st Contact Info) Description 10/15/2024 3:00 PM EST Office Visit Cardiology, [facility] [address] [place] [address] Yeni Laureano CRNP [address] [place] [address] 01/02/2025 3:00 PM EDT Office Visit Family Practice [facility] [address] [facility] [place] [address] Letitia Posey, DO [address] [facility] [place] [address] 04/30/2025 3:00 PM EDT Office Visit Pulmonary Medicine, [facility] [address] [place] [address] Krunal Sherwood MD [address] [place] [address] Health Maintenance Due Date Last Done Comments [...] Additional history exists CKD PHOS USE SMARTSET 38854 05/04/202504/10, 10/20/2022, 12/08/2021, Additional history exists Diabetic Foot Exam 06/05/2025 06/05/2024, 0 10/26/2022, 11/24/2021, Additional history exists TSH 07/24/2025 07/24/2024, 04/10, 04/05/2023, Additional history exists CKD HGB USE SMARTSET 77956 08/17/202508/17, 08/11/2024, 08/10/2024, Additional history exists Depression [...] Care Agent (per Health Care Power of Relish Blender document) DAVID Pearl Adult Child Second Alternate Health Care Agent (per Health Care Power of Relish Blender document) Care Teams Primary Products Inspectors Relationship Specialty Start Date End Date Letitia Posey DO [address] [facility] [place] [address] PCP - General Family Medicine 06/02/18 documented as of this encounter
--- NOTE | 2024-09-22 13:09 | Hospitalist Progress Note ---
Date of Service September 22, 2024 Assessment & Plan (1) Acute hypoxemic respiratory failure due to COVID-19: (2) Pneumonia due to COVID-19 virus: (3) Acute on chronic respiratory failure: (4) COPD (chronic obstructive pulmonary disease): (5) Acute on chronic heart failure with preserved ejection fraction: (6) Demand ischemia: (7) Heart failure with preserved ejection fraction (HFpEF, >= 50%): (8) Pulmonary hypertension: (9) Chronic anticoagulation: (10) CKD (chronic kidney disease), stage III: (11) Permanent atrial fibrillation: Plan Patient significantly improved. At her baseline oxygen requirements and CPAP at night. Continue full course of remdesivir Transition to oral Decadron Transition back to her usual diuretics orally Okay to [facility] Case management to assist family with either home care versus rehab placement Daughter at bedside updated Admission and Anticipated Discharge Date Admission Date: September 20, 2024 Subjective Patient significantly improved when compared to yesterday. More alert and interactive. Daughter at bedside and confirms Physical Exam Physical Exam: Constitutional: Alert, less toxic in appearance HEENT: Mucous membranes moist. Lungs: Decreased breath sounds, however, airflow improved. Few scattered wheezes CV: S1-S2, irregular Abdomen: Soft, nontender, nondistended Extremities: No significant edema Neuro: No focal deficits, generalized weakness Psych: Cooperative, normal mood Results & Data Results & Data Vital Signs (Past 12 Hours) Vital Signs Temp Pulse Pulse Resp BP BP Pulse Ox 09/22/24 11:05 71 18 96 09/22/24 10:51 36.8 C 85 20 92/61 L 96 09/22/24 09:53 09/22/24 07:45 76 18 96 09/22/24 07:37 66 09/22/24 07:07 36.9 C 76 20 137/75 90 09/22/24 04:14 96 09/22/24 03:35 36.5 C 71 20 108/66 93 O2 Del Method O2 Flow Rate 09/22/24 11:05 Nasal Cannula 2 09/22/24 10:51 Nasal Cannula 3 09/22/24 09:53 Nasal Cannula 09/22/24 07:45 Nasal Cannula 3 09/22/24 07:37 09/22/24 07:07 Nasal Cannula 3 09/22/24 04:14 Nasal Cannula 3 09/22/24 03:35 Room Air Diagnostic Findings Reviewed imaging, laboratory and diagnostic studies. Pertinent findings as below. Creatinine 1.36, baseline electrolytes stable (7) Heart failure with preserved ejection fraction (HFpEF, >= 50%) Heart failure chronicity: chronic Qualified Code(s): I50.32 - Chronic diastolic (congestive) heart failure
[2024-09-22] MEDS: FUROSEMIDE 40 MG TAB PO SCH (17:11)
[2024-09-23 06:32] LABS: Albumin Level 3.6 gm/dl (3.4-5.0); BUN Creatinine Ratio 38.1 (10-20); Bilirubin Direct 0.2 mg/dl (0-0.2); Bilirubin,Total 0.6 mg/dl (0.2-1.0); Total Protein 6.1 gm/dl (6.0-8.3)
[2024-09-23] MEDS: dexAMETHasone 1 MG TAB PO SCH (08:42)
--- NOTE | 2024-09-23 11:53 | Hospitalist Progress Note ---
Date of Service September 23, 2024 Assessment & Plan (1) Acute hypoxemic respiratory failure due to COVID-19: (2) Pneumonia due to COVID-19 virus: (3) Acute on chronic respiratory failure: (4) COPD (chronic obstructive pulmonary disease): (5) Acute on chronic heart failure with preserved ejection fraction: (6) Demand ischemia: (7) Heart failure with preserved ejection fraction (HFpEF, >= 50%): (8) Pulmonary hypertension: (9) Chronic anticoagulation: (10) CKD (chronic kidney disease), stage III: (11) Permanent atrial fibrillation: Plan Patient with acute on chronic hypoxic respiratory failure due to COVID-pneumonia and decompensated heart failure. Patient has significantly improved, currently on room air. Continue with a 5-day course of remdesivir Continue oral Decadron Continue her current diuretic regimen Continue therapies Possible discharge tomorrow After completes remdesivir question home health versus skilled rehab. Updated patient's daughter Grace via phone Admission and Anticipated Discharge Date Admission Date: September 20, 2024 Subjective Patient doing very well, has actually been titrated onto room air when sitting u p in a chair Physical Exam Physical Exam: Constitutional: Alert, sitting in chair, nontoxic, no acute distress HEENT: Mucous membranes moist. Lungs: Improved airflow, no wheezes, no rales CV: S1-S2, regular Abdomen: Soft, nontender, nondistended Extremities: No significant edema Neuro: No focal deficits Psych: Cooperative, abnormal memory Results & Data Results & Data Vital Signs (Past 12 Hours) Vital Signs Temp Pulse Resp BP Pulse Ox O2 Del Method 09/23/24 10:40 82 18 91 Room Air 09/23/24 07:15 36.6 C 72 16 149/79 H 92 Room Air 09/23/24 07:05 Room Air 09/23/24 06:55 77 18 93 Room Air Diagnostic Findings Reviewed imaging, laboratory and diagnostic studies. Pertinent findings as below. Creatinine 1.34, baseline LFTs stable/normal in the setting of remdesivir use (7) Heart failure with preserved ejection fraction (HFpEF, >= 50%) Heart failure chronicity: chronic Qualified Code(s): I50.32 - Chronic diastolic (congestive) heart failure
[2024-09-23 13:29] VITALS: O2SAT 93
[2024-09-23] MEDS: OLANZapine 10 MG/2.1 ML SDV IM PRN (22:51)
[2024-09-24 07:48] VITALS: BP 158/85; TEMP 97.9
[2024-09-24 07:51] VITALS: PULSE 86; RESP 18
--- NOTE | 2024-09-24 11:39 | Discharge Summary ---
Discharge Summary Date of Service September 24, 2024 Principal Dx & Hospital Course #1 = Principal Diagnosis (1) Acute hypoxemic respiratory failure due to COVID-19: (2) Pneumonia due to COVID-19 virus: (3) Acute on chronic respiratory failure: (4) COPD (chronic obstructive pulmonary disease): (5) Acute on chronic heart failure with preserved ejection fraction: (6) Demand ischemia: (7) Heart failure with preserved ejection fraction (HFpEF, >= 50%): (8) Pulmonary hypertension: (9) Chronic anticoagulation: (10) CKD (chronic kidney disease), stage III: (11) Permanent atrial fibrillation: Plan Patient is a 89-year-old female presented to the emergency room with increasing shortness of breath and respiratory distress. Known exposure to her who tested positive for COVID. Patient has chronic hypoxic respiratory failure on oxygen due to COPD at baseline. In the emergency room was noted to be more hypoxic and tested positive for COVID-19. Patient was admitted to the hospital. She was supported with oxygen. She was treated with remdesivir and Decadron. She also seems to be somewhat volume overloaded with mild acute decompensation of her heart failure with preserved ejection fraction. She was given some additional doses of IV Lasix. Patient responded quite favorably to the remdesivir, Decadron and diuretics. Her oxygen requirement maxed at 4 L. And she steadily improved. She actually was able to be titrated off oxygen during the day. She continued her usual CPAP at night. Patient completed the 5-day course of remdesivir. Due to the fact that she is back to her baseline oxygen requirement/even improved oxygen requirement can also be completed the course of Decadron at the time of discharge. Her overall condition had improved even from previous. Patient did have some confusion the night prior to discharge. This is not unexpected and her setting of dementia with the Decadron. Daughter is willing to take patient home and continue with home health services. Patient will continue on her other outpatient medications. Mucinex and DuoNeb for symptomatic management and she will follow-up with her outpatient providers Notes For Next Care Provider Medication Changes From Visit Mucinex DuoNeb Admission HPI Per Admitting Provider Patient is an 89-year-old female with known COPD, chronic hypoxic respiratory failure pulmonary emboli and pulmonary hypertension was just discharged from the hospital yesterday after acute blood loss anemia where she required transfusion of packed red blood cells. Earlier this week her had tested positive for COVID however the patient did not seem to be symptomatic yesterday when she was discharged in the goal was to get her home. Patient today seem to have much more respiratory distress than at the time of discharge yesterday. Visiting nurse was in to establish care with the patient was concerned with the lung sounds and recommended they seek attention in the emergency room. In the emergency room she tested positive for COVID-19. She initially was saturating in the low 90s on her usual 2 L of oxygen however have had to increase the oxygen during my evaluation. Daughter is at the bedside. Not aware of any fevers. However she did state that it seems as though patient was having more effort to breathe and sounded more congestion. Admission Exam Per Admitting Provider See H&P Discharge Exam Constitutional: Alert, nontoxic HEENT: Mucous membranes moist. Lungs: Decreased breath sounds, improved airflow, improved Rales, no wheezes CV: S1-S2, regular Abdomen: Soft, nontender, nondistended Extremities: No significant edema Neuro: No focal deficits Psych: Cooperative, impaired memory and cognition Updated Medication List Medication Instructions Recorded Confirmed Type pantoprazole 40 mg tablet,delayed 40 mg PO QAM ##0 12/25/14 09/20/24 History release sitagliptin phosphate 50 mg tablet 50 mg PO QAM #0 tabs 02/22/18 09/20/24 History (Jordiuvia) levothyroxine 75 mcg tablet 75 mcg PO DAILYBB 90 days #90 tabs 05/25/18 09/20/24 History rosuvastatin 20 mg tablet 20 mg PO PM 04/14/19 09/20/24 History magnesium oxide 400 mg PO QAM 09/13/23 09/20/24 History montelukast 10 mg tablet 10 mg PO QAM 09/13/23 09/20/24 History isosorbide mononitrate 30 mg 30 mg PO QAM #30 tabs 08/03/24 09/20/24 Rx tablet,extended release 24 hr metoprolol succinate 50 mg 50 mg PO BID #60 tabs 08/03/24 09/20/24 Rx tablet,extended release 24 hr melatonin 3 mg capsule 3 mg PO HS #30 caps 08/06/24 09/20/24 Rx apixaban 2.5 mg tablet (Eliquis) 2.5 mg PO BID 30 days #60 tabs 09/19/24 09/20/24 Rx nystatin 100,000 unit/gram topical 1 applic EXT BID #30 grams 09/19/24 09/20/24 Rx powder (Nystop) potassium chloride 20 mEq 20 meq PO BID 30 days #60 tabs 09/19/24 09/20/24 Rx tablet,extended release albuterol sulfate 2.5 mg/3 mL 2.5 mg continuous nebulization UD 09/20/24 09/20/24 History (0.083 %) solution for nebulization PRN Shortness Of Breath Or Wheezing budesonide 0.5 mg/2 mL suspension 0.5 mg NEB BID 09/20/24 09/20/24 History for nebulization furosemide 40 mg tablet 40 mg PO BID 09/20/24 09/20/24 History guaifenesin 600 mg tablet, 600 mg PO Q12 #20 tabs 09/24/24 Rx extended release 12 hr (Mucinex) ipratropium 0.5 mg-albuterol 3 mg 3 ml NEB BIDR #180 mL 09/24/24 Rx (2.5 mg base)/3 mL nebulization soln Hospital Stay Data Consultations 09/20/24 16:15 ED Decision to Admit Stat Diagnostic Imagining Performed Reviewed imaging, laboratory and diagnostic studies. Pertinent findings as below. Electrolytes within normal range Creatinine 1.34, baseline WBCs 8.2 Hemoglobin 9.5 Pending Results Patient Have Any Pending Studies at Discharge: No Discharge Instructions Given to Patient (Per Discharging Provider) Continue to wear oxygen as previous Continue CPAP as previously at home Follow-up with providers as previously scheduled Home Health Attestation I certify that this patient is under my care and that I, or a physicians bilingual sales assistant working with me, had a face to-face encounter that meets the home health [id number] encounter requirements with this patient. The encounter with the patient was in whole, or in part, for the following medical condition, which is the primary reason for home health care (list medical condition): I certify that, based on my findings, the following services are medically necessary home health services: My clinical findings support the need for the above services because: Further, I certify that my clinical findings support that this patient is homebound (i.e. absences from home require considerable and taxing effort and are for medical reasons or baptism services or infrequently or of short duration when for other reasons) because: Certification for Home Health Services: Based on the above findings, I certify that this patient is confined to the home and needs intermittent senior care care, physical therapy and/or speech therapy or continues to need occupational therapy. The patient is under my care, and I have initiated the establishment of the plan of care. This patient will be followed by a physician who will periodically review the plan of care. Total Time Total Time Spent Total Time Spent (In Minutes): 33
[2024-09-24 13:35] LABS: Bilirubin Direct 0.1 mg/dl (0-0.2); Bilirubin,Total 0.7 mg/dl (0.2-1.0); Total Protein 6.5 gm/dl (6.0-8.3)
[2024-09-24] MEDS ORDERED: ALBUT/IPRATROP 3MG/0.5MG NEB 3 ML VIAL NEB SCH (19:00)
== END 2024-09-24 15:56 | disposition home health service (06) | DRG 177 ==
LOC: ED 14:31 → EDINP 17:08 → 2W 23:47 → 3E 09-22 15:13